=== PATIENT | female | born 1955 | race Caucasian/White ===

== ENCOUNTER 2022-11-09 18:47 | Emergency (ER) | payer MEDICARE, SELFPAY ==
[2022-11-09] VITALS (67 sets, daily range): BP systolic 138–169; BP diastolic 43–115; PULSE 98–106; RESP 15–33; TEMP 37; O2SAT 93–99
--- NOTE | 2022-11-09 19:00 | DI.CT_ITS ---
Exam(s) CT ABDOMEN PELVIS W EXAM: CT ABDOMEN PELVIS W CLINICAL HISTORY: right lower quadrant pain. TECHNIQUE: Imaging Protocol: Axial computed tomography images with coronal and sagittal reformatted images were created and reviewed CONTRAST MATERIAL: Intravenous: Omnipaque 350 Contrast volume:100 ml Oral: no COMPARISON: No exams were available for comparison FINDINGS: ABDOMEN: Lung Bases: Small right pleural effusion. Left atrial and ventricular dilatation. Liver: Cirrhotic appearing liver. No measurable mass. Gallbladder and biliary tract: Status post cholecystectomy. No radiodense calculus or dilation. Pancreas: Normal density, no abnormal calcifications or inflammatory process. Spleen: Enlarged. Kidneys: Normal size, contour and axis. No radiodense stones or obstructive uropathy. No masses seen. Adrenal glands: No masses seen. Abdominal Aorta: Abdominal portion non-dilated. Atherosclerotic changes. Soft tissues. Severe body wall edema greatest in the anterior abdomen, in the pannus. Stomach and small bowel: Suture material at stomach. Small bowel not distended. PELVIS: Bladder: No gross wall thickening. No calculi.No focal mass. Bowel: Colon Suboptimally evaluated due to lack of contrast and surrounding fluid in the paracolic gu tters. Appendix normal. Peritoneal cavity: Small amount of ascites, mainly around the liver and spleen. Some fluid seen adia g paracolic colors. Diffuse haziness in the mesentery Bones: Degenerative changes with flowing osteophytes. Schmorl's node noted at the superior endplate of L4. Reproductive organs: Status post hysterectomy. Ovaries not seen. Lymph nodes: Unremarkable. Impression: Small right pleural effusion. Small amount of ascites. Severe body wall edema. Cirrhotic liver. S plenomegaly. No evidence of appendicitis. RADIATION DOSE DELIVERED: 1,556.21mGy.cm Total DLP DATA REPOSITORY: All CT scans at this facility are submitted to the National Radiology Data Registry (NRDR) Dose Index Registry (DIR) with the [employer] (ACR). RADIATION OPTIMIZATION: All CT scans at this facility use at least one of these dose optimization te chniques: automated exposure control; mA and/or kV adjustment per patient size (includes targeted exa ms where dose is matched to clinical indication); or iterative reconstruction.
--- NOTE | 2022-11-09 19:08 | ED.GENADUL_ITS ---
Discharge Plan Disposition Patient Disposition: Home Condition: Improving Discharge Details Chief Complaint: Abd Prob Clinical Impression: Abdominal pain Primary Care Provider: Jefe Coffey ED Provider: Fito Haynes Home Meds and New Rx's Prescriptions: No Action metformin 1,000 mg Tablet 1,000 mg PO BID ropinirole [Requip] 2 mg Tablet 2 mg PO BID carvedilol 3.125 mg Tablet 3.125 mg PO BID Rx Instructions: must administer with a meal/food furosemide [Lasix] 20 mg Tablet 20 mg PO DAILY spironolactone 25 mg Tablet 25 mg PO DAILY zolpidem 5 mg Tablet 5 mg PO QHS PRN Discharge Instructions Instructions: Abdominal Pain (ED) Additional Instructions: Please help with your primary care physician. Please return to the emergency department for any worsening symptoms. Medical Decision Making 67-year-old female history of gastric antral vascular ectasia, prior hysterectomy, presents with right lower quadrant abdominal discomfort nausea and diarrhea over the last 2 days. Not tarry nonblack stool loose in nature. No active vomiting. Hemodynamically stable afebrile. Abdomen soft nontender nondistended. Consider gastroenteritis versus appendicitis versus less likely diverticulitis versus colitis lower suspicion for bowel obstruction given stooling and no vomiting no distention history and physical not consistent with GI bleed. Given age past medical history and symptomatology will obtain basic labs CT imaging light fluids and Zofran. Likely home with close follow-up pending results No acute distress resting comfortably. Patient has close primary care follow- up. Given home care instructions and return precautions. 21: 18 chronic nonalcoholic cirrhosis with ascites. HPI General Date/Time Provider Initiated Documentation: 11/09/22 19:02 . HPI Narrative: 67-year-old female history of gastric antral vascular ectasia presents with right lower quadrant abdominal pain nausea and loose stool over the last several days Related Data Home Medications Medication Instructions Recorded Confirmed carvedilol 3.125 mg tablet 3.125 mg PO BID 11/09/22 11/09/22 furosemide 20 mg tablet (Lasix) 20 mg PO DAILY 11/09/22 11/09/22 metformin 1,000 mg tablet 1,000 mg PO BID 11/09/22 11/09/22 ropinirole 2 mg tablet 2 mg PO BID 11/09/22 11/09/22 spironolactone 25 mg tablet 25 mg PO DAILY 11/09/22 11/09/22 zolpidem 5 mg tablet 5 mg PO QHS PRN 11/09/22 11/09/22 Allergies Allergy/AdvReac Type Severity Reaction Status Date / Time Penicillins Allergy Severe Swelling/Ed Unverified 11/09/22 20:12 sophie tramadol Allergy Severe Swelling/Ed Unverified 11/09/22 20:13 sophie vancomycin AdvReac Intermediate Other (See Unverified 11/09/22 20:13 Comment) General Stated Complaint: Abd Prob CHELA: 3 Review of Systems Narrative: Review of Systems Constitutional: negative Eyes: negative ENT: negative Cardiovascular: negative Respiratory: negative Gastrointestinal: Abdominal pain nausea diarrhea : negative Musculoskeletal: negative Skin: negative Neurologic: negative Psych: negative PFSH All Active Problems (Updated 11/09/22 @ 21:21 by Fito Haynes MD) Abdominal pain (Acute) Social History Smoking risk assessment performed?: No Exam Narrative Exam Narrative: Physical Examination General: alert, awake, cooperative, resting comfortably, no acute distress HEENT: normocephalic, atraumatic; PERRL, EOM intact, conjunctiva normal; no nasal discharge; moist mucous membranes, oral and pharyngeal mucosa normal, tolerating secretions Neck: supple, trachea midline; full ROM Chest: normal to inspection Respiratory: normal respiratory effort, speaking in full sentences, clear to auscultation, no wheezing, rales or rhonchi Cardiac: regular rate, regular rhythm, S1S2 intact, no murmurs rubs or gallops GI: abdomen soft, non-tender, non-distended; no palpable mass or hepatosplenomegaly Skin: no lesions, rashes or trauma appreciated Neuro: AAOx3, normal speech, moving all extremities Extremities: Back appearing bilateral ankle edema symmetrical mildly pitting Psych: Appropriate mood and affect Course Vital Signs Vital signs: Vital Signs Temperature 37.0 C 11/09/22 18:51 Pulse 100 H 11/09/22 18:51 Respiratory Rate 18 11/09/22 18:51 Pulse Oximetry 99 11/09/22 18:51 Temperature 37.0 C 11/09/22 18:51 Temperature Source Temporal Artery Scan 11/09/22 18:51 Pulse 100 H 11/09/22 18:51 Respiratory Rate 18 11/09/22 18:51 Blood Pressure Position Sitting 11/09/22 18:51 Pulse Oximetry 99 11/09/22 18:51 Oxygen Delivery Method Room Air 11/09/22 18:51 Oxygen Flow Rate 0 11/09/22 18:51 Pain Level 7 11/09/22 18:51
[2022-11-09 19:13] LABS: Abs Immature Grans 0.01 10^3/uL (0.0-0.06); Absolute Basophil Count 0.04 10^3/uL (0.0-0.2); Absolute Eosinophil Count 0.28 10^3/uL (0.0-0.7); Absolute Lymphocyte Count 0.88 10^3/uL (1.2-3.4); Absolute Monocyte Count 0.49 10^3/uL (0.1-0.8); Absolute Neutrophil Count 2.34 10^3/uL (1.2-6.7); Eosinophils % 6.9; HCT 28.6 % (36.0-46.0); HGB 8.5 g/dL (11.2-15.7); Immature Grans % 0.2; Lymphocytes % 21.8; MCH 26.3 pg (27.0-33.0); MCHC 29.7 % (32.0-36.0); MCV 89 fL (80-95); Monocytes % 12.1; Platelet Count 117 10^3/uL (130-400); RBC 3.23 10^6/uL (3.93-5.22); RDW 13.8 % (11.7-14.6); RDW-SD 44.9 fL; WBC 4.04 10^3/uL (4.4-10.8)
[2022-11-09 19:31] LABS: ALT 12 U/L (14-59); AST 28 U/L (15-37); Albumin 2.9 g/dL (3.4-5.0); Alkaline Phosphatase 209 U/L (46-116); Anion Gap 5.1 mmol/L (3-11); BUN 11 mg/dL (7-18); Bilirubin, Total 1.7 mg/dL (0.2-1.0); CO2 29.9 mmol/L (21.0-32.0); CREATININE 0.8 mg/dL (0.55-1.02); Calcium 8.6 mg/dL (8.5-10.1); Chloride 108 mmol/L (98-107); Estimated GFR 80.71 (mL/min/1.73m2); Glucose 185 mg/dL (74-106); Potassium 3.5 mmol/L (3.5-5.1); Sodium 143 mmol/L (136-145); Total Protein 6.6 g/dL (6.4-8.2)
[2022-11-09 19:34] LABS: INR 1.2 (0.9-1.1); PTT Activated 25.6 sec (21.0-27.5); Prothrombin Time 11.7 sec (9.3-11.0)
[2022-11-09] MEDS: Normal Saline 500 ML 1000 ML IV (19:47)
[2022-11-09] MEDS: Omnipaque 350 MG/ML 100 ML BTL IJ (19:50)
[2022-11-09] MEDS: Normal Saline - Diluent 50 ML VIAL IJ (19:51)
[2022-11-09] MEDS: Normal Saline Flush 10 ML SYR IVP (19:51)
--- NOTE | 2022-11-09 20:20 | DI.VRAD_ITS ---
PROCEDURE INFORMATION: Exam: CT Abdomen And Pelvis With Contrast Exam date and time: 11/09/2022 7:50 PM Age: 67 years old Clinical indication: Other: Rlq pain TECHNIQUE: Imaging protocol: Computed tomography of the abdomen and pelvis with contrast. Radiation optimization: All CT scans at this facility use at least one of these dose optimization techniques: automated exposure control; mA and/or kV adjustment per patient size (includes targeted exams where dose is matched to clinical indication); or iterative reconstruction. Contrast material: OMNIPAQUE 350; Contrast volume: 100 ml; Contrast route: INTRAVENOUS (IV); COMPARISON: No relevant prior studies available. FINDINGS: Lungs: Consolidation in the right lower lobe may represent atelectasis or pneumonia. . Pleural spaces: Moderate right pleural effusion.. Liver: Lobulated liver may reflect cirrhosis. Gallbladder and bile ducts: Cholecystectomy Pancreas: Edema in the pancreas may represent mild pancreatitis. Spleen: Splenomegaly 15 cm . Adrenal glands: Normal. No mass. Kidneys and ureters: Normal. No hydronephrosis. Stomach and bowel: Sutures in the stomach Appendix: The appendix is not identified. If acute appendicitis is suspected clinically, recommend oral contrast and repeat scanning after oral contrast reaches the rectum. Intraperitoneal space: Mild ascites in the abdomen and pelvis. Vasculature: Unremarkable. No abdominal aortic aneurysm. Lymph nodes: Unremarkable. No enlarged lymph nodes. Urinary bladder: Unremarkable as visualized. Reproductive: Unremarkable as visualized. Bones/joints: Unremarkable. No acute fracture. Soft tissues: Extensive edema in the subcutaneous fat of abdomen and pelvis. IMPRESSION: 1. Moderate right pleural effusion.. 2. Consolidation in the right lower lobe may represent atelectasis or pneumonia. . 3. Lobulated liver may reflect cirrhosis. 4. Splenomegaly 15 cm . Differential diagnosis of splenomegaly is lymphoma/leukemia, mononucleosis, hemolytic anemia, portal hypertension. 5. Edema in the pancreas may represent mild pancreatitis. 6. Mild ascites in the abdomen and pelvis. 7. Extensive edema in the subcutaneous fat of abdomen and pelvis. 8. The appendix is not identified. If acute appendicitis is suspected clinically, recommend oral contrast and repeat scanning after oral contrast reaches the rectum. 9 . Anasarca with pleural effusion, ascites, and soft tissue edema Dictated and Authenticated by: Lidia Cassidy MD. Ordering:ABRAHAM Payton MD
== END 2022-11-09 21:41 | disposition home or self-care (01) ==
PROVIDERS: Emergency Provider Emergency Medicine; PCP Family Medicine
DX: K74.60 Unspecified cirrhosis of liver (principal); R18.8 Other ascites
CPT/HCPCS: 80053; 96361; 96374; 99285; 74177; 85025; 85610; 85730; 99284; J3490

== ENCOUNTER 2022-12-13 16:15 | Inpatient (IN) | payer MEDICARE, SELFPAY ==
[2022-12-13] VITALS (32 sets, daily range): BP systolic 133–179; BP diastolic 48–66; PULSE 72–107; RESP 13–27; TEMP 36.6–36.8; O2SAT 96–100
--- NOTE | 2022-12-13 16:15 | RT.EKG_ITS ---
APPROVED REPORT Exam: Resting ECG Reason for Exam: ?chf Patient Location: E HR:90 bpm ECG Measurements Heart Rate 90 AXIS AL 164 P 72 QRSd 93 QRS 63 QT 402 T 17 QTc 493 Conclusion Sinus rhythm...normal P axis, V-rate 60- 99 Probable left atrial enlargement...P >50mS, <-0.10mV V1
--- NOTE | 2022-12-13 16:15 | DI.CT_ITS ---
Exam(s) CT ABDOMEN PELVIS W EXAM: CT ABDOMEN PELVIS W CLINICAL HISTORY: lower abdomen pain TECHNIQUE: Imaging Protocol: Axial computed tomography images with coronal and sagittal reformatted images were created and reviewed CONTRAST MATERIAL: Intravenous: Omnipaque 350 Contrast volume:100 mL Oral: No COMPARISON: CT CT ABDOMEN PELVIS W from 11/09/2022 FINDINGS: ABDOMEN: Lung Bases: There is a persistent right pleural effusion and subjacent infiltrate. Liver: There is a nodular small liver consistent with hepatic cirrhosis. No measurable mass. Portal, Superior Mesenteric, and Splenic Veins: Unremarkable. Gallbladder and Biliary Tract: Status post cholecystectomy. No significant biliary ductal dilatation . Pancreas: Normal density, no abnormal calcifications or inflammatory process. Spleen: Splenomegaly. Adrenals: No masses seen. Kidneys: Normal size, contour and axis. No radiodense stones or obstructive uropathy. No masses seen. Abdominal Aorta: Abdominal portion non-dilated. Atherosclerosis. Bowel: There is diverticulosis seen in the colon but no evidence of acute diverticulitis. Postsurgic al changes are seen in the stomach. There is no evidence of appendicitis. Peritoneal Cavity: There is a moderate amount of abdominal pelvic ascites. No free air. Lymph Nodes: Within normal limits. Bones: Within normal limits for the patient's age. Soft Tissues: There is diffuse subcutaneous edema. PELVIS: Bladder: Symmetric distention, no gross wall thickening. Reproductive Organs: Status post hysterectomy. Lymph Nodes: Stable mildly enlarged inguinal lymph nodes. Bones: Within normal limits for the patient's age. IMPRESSION: 1. Findings of hepatic cirrhosis and splenomegaly with abdominal ascites. 2. Anasarca. 3. Right pleural effusion and right basilar infiltrate which may represent atelectasis or pneumonia. Please correlate clinically. RADIATION DOSE DELIVERED: 1,960.14mGy.cm Total DLP DATA REPOSITORY: All CT scans at this facility are submitted to the National Radiology Data Registry (NRDR) Dose Index Registry (DIR) with the [employer] (ACR). RADIATION OPTIMIZATION: All CT scans at this facility use at least one of these dose optimization te chniques: automated exposure control; mA and/or kV adjustment per patient size (includes targeted exa ms where dose is matched to clinical indication); or iterative reconstruction.
[2022-12-13 16:27] LABS: Abs Immature Grans 0.01 10^3/uL (0.0-0.06); Absolute Basophil Count 0.04 10^3/uL (0.0-0.2); Absolute Eosinophil Count 0.25 10^3/uL (0.0-0.7); Absolute Lymphocyte Count 0.73 10^3/uL (1.2-3.4); Absolute Monocyte Count 0.42 10^3/uL (0.1-0.8); Absolute Neutrophil Count 2.06 10^3/uL (1.2-6.7); Basophils % 1.1; Eosinophils % 7.1; HCT 27.3 % (36.0-46.0); HGB 7.7 g/dL (11.2-15.7); Immature Grans % 0.3; Lymphocytes % 20.8; MCH 24.2 pg (27.0-33.0); MCHC 28.2 % (32.0-36.0); MCV 86 fL (80-95); MPV 10.5 fL (8.0-11.0); Neutrophils % 58.7; Platelet Count 130 10^3/uL (130-400); RBC 3.18 10^6/uL (3.93-5.22); RDW 16.3 % (11.7-14.6); RDW-SD 51.8 fL; WBC 3.51 10^3/uL (4.4-10.8)
--- NOTE | 2022-12-13 16:30 | DI.RAD_ITS ---
Exam(s) XR CHEST 1V IN DI DEPT EXAM: XR CHEST 1V IN DI DEPT CLINICAL HISTORY: ?chf. TECHNIQUE: 2D digital imaging was performed. COMPARISON: No exams were available for comparison FINDINGS: Single AP portable view. Heart size is upper normal. The mediastinum is not widened. Increase markings both lung bello but probably exaggerated by body habitus and portable somewhat zurdo dotic technique. No pleural effusions evident. No pneumothorax. IMPRESSION: As above. Recommend nonportable PA and lateral views when clinically possible. DATA REPOSITORY: RADIATION DOSE DELIVERED:
[2022-12-13 16:33] LABS: Source Nasal/Nares
--- NOTE | 2022-12-13 16:33 | ED.GENADUL_ITS ---
Discharge Plan Disposition Patient Disposition: Admit to [facility] Discharge Details Chief Complaint: Abd Prob Clinical Impression: Anasarca, CHF (congestive heart failure) Primary Care Provider: Jefe Coffey ED Provider: Jamal Oakes Home Meds and New Rx's Prescriptions: No Action metformin 1,000 mg Tablet 1,000 mg PO BID ropinirole [Requip] 2 mg Tablet 2 mg PO BID carvedilol 3.125 mg Tablet 3.125 mg PO BID Rx Instructions: must administer with a meal/food furosemide [Lasix] 20 mg Tablet 20 mg PO DAILY spironolactone 25 mg Tablet 25 mg PO DAILY zolpidem 5 mg Tablet 5 mg PO QHS PRN Medical Decision Making 67 yo female with hx of SALCIDO cirrhosis, crohn's, DM, chronic anemia, HFpEF, who was admitted at [facility] for a one night admission for volumar overloase 2 weeks ago and d/c'd on lasix, comes in with worsening weight gain and intermittent lower abdominal discomfort. She denies fevers, chills, chest pain, dyspnea, n/v. She has also had some vaginal bleeding intermittently. She arrives stable in no distress. She does have edema of the lower extremities, no calf tenderness. Her abdomen is obese, has tenderness to palpation in the lower abdomen both right and left sided, no guarding or rebound. No current vaginal bleeding on exam but outer vulva area is swollen and seems edematous. Suspect volume overload, will obttain cbc, cmp, lipase, ct abdomen/pelvis, ekg/troponin and cxr to further evaluate labs show chronic anemia, no other significant findings, xray shows mild chf, ct shows anasarca small ascites, dilated inferior vena cava secondary to vascular congestion. Patient stable, can barely move in the stretcher due to general weakness and dyspnea, will discuss with hospitalist about admission for diuresis Differential Diagnosis Differential Diagnosis: diverticulitis, fibroid, chf Imaging Data Radiologic Study: Attestation: I personally reviewed and interpreted this imaging study as follows: Imaging: X-Ray Radiologist's impression: PROCEDURE INFORMATION: Exam: XR Chest Exam date and time: 12/13/2022 5:26 PM Age: 67 years old Clinical indication: Pain; Other: ? Chf TECHNIQUE: Imaging protocol: Radiologic exam of the chest. Views: 1 view. COMPARISON: CT ABDOMEN PELVIS W 12/13/2022 5:13 PM FINDINGS: Lungs: Diffuse interstitial prominence. Pleural spaces: Right pleural effusion is not conspicuous. Heart/Mediastinum: Cardiomegaly. Bones/joints: Unremarkable. IMPRESSION: Mild heart failure. Radiologic Study #2: Attestation: I personally reviewed and interpreted this imaging study as follows: Imaging: CT Scan Radiologist's impression: IMPRESSION: 1. Anasarca. 2. Small volume intra-abdominal ascites. 3. Liver cirrhosis. 4. Splenomegaly. 5. Dilated inferior vena cava likely secondary to vascular congestion. 6. Small right pleural effusion with right lower lobe atelectasis. 7. Mild mesenteric, retroperitoneal and inguinal adenopathy. 8. Mesenteric edema. Lab Data Lab results reviewed: Yes I reviewed the patient's lab results. ECG Data Attestation: I personally reviewed and interpreted this ECG (s) as follows: Prior ECG tracings: not available for review Interpretation: sinus, rate of 90, pr 164, no acute ischemic findings HPI General Mode of arrival: EMS . Date/Time Provider Initiated Documentation: 12/13/22 16:22 . Limitations to Documentation: no limitations . Information obtained by: patient . History of Present Illness 67 year old F presents to the emergency department with the chief complaint of lower abdominal pain, described as moderate, Patient started experiencing this month(s) (1) and it has been constant. No relieving factors improve symptom(s), No exacerbating factors reported . Patient notes denies fever/chills. Patient did receive the following treatments prior to arrival, none Related Data Home Medications Medication Instructions Recorded Confirmed carvedilol 3.125 mg tablet 3.125 mg PO BID 11/09/22 12/13/22 furosemide 20 mg tablet (Lasix) 20 mg PO DAILY 11/09/22 12/13/22 metformin 1,000 mg tablet 1,000 mg PO BID 11/09/22 12/13/22 ropinirole 2 mg tablet 2 mg PO BID 11/09/22 12/13/22 spironolactone 25 mg tablet 25 mg PO DAILY 11/09/22 12/13/22 zolpidem 5 mg tablet 5 mg PO QHS PRN 11/09/22 12/13/22 Allergies Allergy/AdvReac Type Severity Reaction Status Date / Time Penicillins Allergy Severe Swelling/Ed Unverified 02/09/23 16:39 sophie tramadol Allergy Severe Swelling/Ed Unverified 12/13/22 16:39 sophie apricot Allergy Intermediate Hives Unverified 12/13/22 16:34 vancomycin AdvReac Intermediate Other (See Unverified 12/13/22 16:39 Comment) General Stated Complaint: Abd Prob CHELA: 3 Review of Systems All systems reviewed & are unremarkable except as noted in HPI and below Constitutional Constitutional: Denies chills, Denies fever(s) and Denies weakness Cardiovascular Cardiovascular: Denies chest pain and Denies dyspnea Respiratory Respiratory: Denies cough and Denies dyspnea Gastrointestinal Gastrointestinal: Denies abdominal pain, Denies nausea and Denies vomiting Musculoskeletal Musculoskeletal: Denies joint swelling Integumentary/Breasts Skin/Breast: Denies rash Neurologic Neurologic: Denies weakness PFSH All Active Problems (Updated 12/13/22 @ 18:24 by Jamal Oakes MD) Anasarca (Acute) CHF (congestive heart failure) (Chronic) Social History Smoking/Tobacco Use Status: Never Smoking risk assessment performed?: Yes Alcohol Intake: never Drug use: Never Substance use type: does not use Do you feel safe at home: Yes Do you feel safe in your relationship?: Yes Exam Const General: no acute distress Orientation: alert HENMT Head: normal to inspection Ears: external ears normal General nose exam: external nose normal Mouth: moist mucous membranes Eyes General: appearance normal, both eyes and all related structures Neck Neck: normal visual inspection Resp Effort & Inspection: normal respiratory effort and able to speak in complete sentences Auscultation: clear to auscultation bilaterally Cardio Jugular venous pressure: no JVD Rate: regular rate Heart Sounds: no murmurs GI Palpation: soft and tender Skin General skin exam: no rashes or lesions noted Neuro General: patient alert and patient oriented x3 Extrem General: normal to inspection Psych Mental Status: mental status grossly normal Course Vital Signs Vital signs: Vital Signs Temperature 36.6 C 12/13/22 16:13 Pulse 96 H 12/13/22 16:13 Respiratory Rate 16 12/13/22 16:13 Blood Pressure 160/52 H 12/13/22 16:13 Pulse Oximetry 99 12/13/22 16:13 Temperature 36.6 C 12/13/22 16:13 Temperature Source Oral 12/13/22 16:13 Pulse 96 H 02/09/23 16:13 Respiratory Rate 16 12/13/22 16:13 Respiratory Effort Normal 12/13/22 16:25 Blood Pressure 160/52 H 12/13/22 16:13 Blood Pressure Position Supine 12/13/22 16:13 Pulse Oximetry 99 12/13/22 16:13 Oxygen Delivery Method Room Air 12/13/22 16:13 Oxygen Flow Rate 0 12/13/22 16:13 Pain Level 6 12/13/22 16:30 Lab/Test Results Lab/Test Results: Laboratory Tests Range/Units 12/13/22 16:20 WBC (4.4-10.8) 10^3/uL 3.51 L RBC (3.93-5.22) 10^6/uL 3.18 L Hgb (11.2-15.7) g/dL 7.7 L Hct (36.0-46.0) % 27.3 L MCV (80-95) fL 86 MCH (27.0-33.0) pg 24.2 L MCHC (32.0-36.0) % 28.2 L RDW (11.7-14.6) % 16.3 H Plt Count (130-400) 10^3/uL 130 MPV (8.0-11.0) fL 10.5 Immature Gran % 0.3 Neutrophils % 58.7 Lymphocytes % 20.8 Monocytes % 12.0 Eosinophils % 7.1 Basophils % 1.1 Nucleated RBC % (0.0-0.3) % 0.0 Absolute Neutrophils (1.2-6.7) 10^3/uL 2.06 Absolute Lymphocytes (1.2-3.4) 10^3/uL 0.73 L Absolute Monocytes (0.1-0.8) 10^3/uL 0.42 Absolute Eosinophils (0.0-0.7) 10^3/uL 0.25 Absolute Basophils (0.0-0.2) 10^3/uL 0.04
[2022-12-13 16:43] LABS: ALT 13 U/L (14-59); AST 27 U/L (15-37); Albumin 2.6 g/dL (3.4-5.0); Alkaline Phosphatase 187 U/L (46-116); Anion Gap 5.5 mmol/L (3-11); BUN 10 mg/dL (7-18); Bilirubin, Direct 0.6 mg/dL (0.0-0.2); Bilirubin, Total 1.3 mg/dL (0.2-1.0); CO2 28.5 mmol/L (21.0-32.0); CREATININE 0.8 mg/dL (0.55-1.02); Calcium 8.4 mg/dL (8.5-10.1); Chloride 108 mmol/L (98-107); Estimated GFR 80.71 (mL/min/1.73m2); Glucose 245 mg/dL (74-106); Lipase 35 U/L (16-77); Potassium 3.7 mmol/L (3.5-5.1); Sodium 142 mmol/L (136-145); Total Protein 6.2 g/dL (6.4-8.2)
[2022-12-13 16:44] LABS: ETHANOL BLOOD < 3.0 mg/dL (<10); PTT Activated 30.7 sec (21.5-31.9); Prothrombin Time 11.7 sec (9.3-11.0)
[2022-12-13 16:52] LABS: INR 1.1 (0.9-1.1)
[2022-12-13 17:01] LABS: NT-proBNP 316 pg/mL (<300); Troponin I < 50 ng/L (<or=60)
[2022-12-13 17:08] LABS: COVID-19 PCR Negative (Negative)
[2022-12-13] MEDS: Normal Saline - Diluent 50 ML VIAL IJ (17:15)
[2022-12-13] MEDS: Omnipaque 350 MG/ML 100 ML BTL IJ (17:15)
[2022-12-13 17:51] LABS: Bilirubin Small (Negative); Blood Negative (Negative); Clarity Clear (Clear); Glucose 100 mg/dL (Negative); Ketones Negative (Negative); Leukocyte Esterase Negative (Negative); Nitrite Negative (Negative); Specific Gravity >= 1.030 (1.005-1.025); Urobilinogen 0.2 EU/dL (Up TO 0.2); pH 5.5 (5-8)
--- NOTE | 2022-12-13 17:53 | DI.VRAD_ITS ---
PROCEDURE INFORMATION: Exam: XR Chest Exam date and time: 12/13/2022 5:26 PM Age: 67 years old Clinical indication: Pain; Other: ? Chf TECHNIQUE: Imaging protocol: Radiologic exam of the chest. Views: 1 view. COMPARISON: CT ABDOMEN PELVIS W 12/13/2022 5:13 PM FINDINGS: Lungs: Diffuse interstitial prominence. Pleural spaces: Right pleural effusion is not conspicuous. Heart/Mediastinum: Cardiomegaly. Bones/joints: Unremarkable. IMPRESSION: Mild heart failure. Dictated and Authenticated by: Zaid Bennett MD. Ordering:JACY Berry MD
--- NOTE | 2022-12-13 17:53 | DI.VRAD_ITS ---
PROCEDURE INFORMATION: Exam: CT Abdomen And Pelvis With Contrast Exam date and time: 12/13/2022 5:13 PM Age: 67 years old Clinical indication: Abdominal pain; Generalized; Patient HX: Pain x 1 month TECHNIQUE: Imaging protocol: Computed tomography of the abdomen and pelvis with contrast. Radiation optimization: All CT scans at this facility use at least one of these dose optimization techniques: automated exposure control; mA and/or kV adjustment per patient size (includes targeted exams where dose is matched to clinical indication); or iterative reconstruction. Contrast material: OMNIPAQUE 350; Contrast volume: 100 ml; Contrast route: INTRAVENOUS (IV); COMPARISON: CT ABDOMEN PELVIS W 11/09/2022 7:50 PM FINDINGS: Lungs: Right lower lobe atelectasis. Pleural spaces: Small right pleural effusion. Liver: Nodular appearance of the liver contour. Gallbladder and bile ducts: Cholecystectomy. Pancreas: Peripancreatic edema. No pancreatic duct dilatation. Spleen: 15.7 cm. Adrenal glands: Normal. No mass. Kidneys and ureters: Normal. No hydronephrosis. Stomach and bowel: As enteric adenopathy. Sigmoid colon diverticulosis. Gastric surgery staple line. Appendix: Nonvisualization of the appendix. Intraperitoneal space: Diffuse mesenteric edema. Intra-abdominal ascites. Vasculature: Dilated inferior vena cava. Lymph nodes: Retroperitoneal lymphadenopathy. Inguinal lymphadenopathy. Urinary bladder: Unremarkable as visualized. Reproductive: Absent uterus. No adnexal mass. Bones/joints: Multilevel thoracic lumbar spine disc degeneration with spondylosis changes. Soft tissues: Diffuse abdominal wall edema. IMPRESSION: 1. Anasarca. 2. Small volume intra-abdominal ascites. 3. Liver cirrhosis. 4. Splenomegaly. 5. Dilated inferior vena cava likely secondary to vascular congestion. 6. Small right pleural effusion with right lower lobe atelectasis. 7. Mild mesenteric, retroperitoneal and inguinal adenopathy. 8. Mesenteric edema. Dictated and Authenticated by: Zaid Bennett MD. Ordering:JACY Berry MD
[2022-12-13 18:03] LABS: Bacteria Few HPF (Negative); Crystals Negative HPF (Negative); Epithelial Cells Moderate HPF (Negative); RBC 0-2 HPF (0-2)
[2022-12-13 18:04] LABS: C & S Indicated? No/Sq. Contamination; Casts Negative LPF (Negative); Mucus Trace (Negative)
[2022-12-13] MEDS: Furosemide 40 MG/4 ML VIAL IVP (18:06)
[2022-12-13] MEDS: Lidocaine 2% Jelly 6 ML SYR (18:15)
--- NOTE | 2022-12-13 18:35 | W.PM.HP.N ---
Date of service: 12/13/22 Time of Service: 18:36 Assessment and Plan Assessment and plan (1) Anasarca: Start date: 12/13/22 Status: Acute Assessment and plan: This is a 67-year-old lady who has chronic right-sided heart failure worsening recently with Lasix stopped because of incontinence and irritation of her skin. She had a Christine placed in the ED and will be diuresed with Lasix 40 mg twice daily. Her blood pressure appears to be slightly elevated and should tolerate this diuresis. Renal functions are also within normal limits with patient mostly having SALCIDO with chronic anemia requiring iron infusions per history. Echocardiogram may need to be updated and will be reviewed in the morning. Long-term she needs PT and OT for bed mobility and she already does have a bedside commode at home. Patient is a full code. (2) CHF (congestive heart failure): Status: Chronic Assessment and plan: Recent worsening with a history of preserved left trigger ejection fraction. More aggressive diuresis and long-term patient needs to be comfortable taking increased diuretics daily. Monitor renal functions and electrolytes while diuresing. Replete if needed. As stated we will update echocardiogram if needed. Qualifiers: Heart failure chronicity: acute on chronic Heart failure type: diastolic Qualified Code(s): I50.33 - Acute on chronic diastolic (congestive) heart failure (3) SALCIDO (nonalcoholic steatohepatitis): Status: Chronic Assessment and plan: Monitor liver functions and supportive care. Patient also has associated anemia requiring iron infusions chronically. Her anemia is fairly significant but appears stable. This will be monitored daily. It does not appear her anemia is contributing to her heart failure but consider transfusion if hematocrit drops below 25%. (4) Type 2 diabetes mellitus: Status: Chronic Assessment and plan: Hold outpatient medical therapy and glucometer measurements with short acting insulin coverage while hospitalized. Qualifiers: Diabetes mellitus complication status: without complication Diabetes mellitus ferry terminal agent insulin use: without detention use Qualified Code(s): E11.9 - Type 2 diabetes mellitus without complications History of Present Illness History of Present Illness Chief Complaint: Anasarca Narrative: This is a 67-year-old female patient who lives with her and other family most of whom are not doing well medically and has found it difficult to ambulate and get to the bathroom on time without having incontinence of urine and having to clean herself each time. Her skin began to become irritated and she stopped taking her Lasix 2 days ago. She has significant arthritis with bilateral TKA in the past and stated that at times when she has worsening edema she would stick a needle into her knee to remove fluid. I advised against this with her prostheses and the risk of infection. Her incontinence is secondary to not being able to hold her urine longer if with her decreased mobility with obesity and severe arthritis. She last had an iron infusion about 2 weeks ago but also per the ED notes at that time had a 1 night admission for her edema and for diuresis. She was discharged on Lasix at that time and has been having progressive abdominal swelling and hardness over the bottom of her abdominal pannus since that admission. She also has peripheral edema and this has worsened but not as severe as her abdomen. The patient did not give the history of being diuresed 2 weeks ago when she had her iron infusion but this was assessed by the ED physician with record review. The patient does did order a bedside commode which will be helpful with her distance to travel and incontinence of urine. She has had no other urinary symptoms and no abdominal symptoms other than her discomfort over the pannus from swelling. Patient does have swelling over her genitalia as well and was admitted with anasarca for IV Lasix diuresis. Her initial troponins were negative. She did have recent echocardiogram revealing preserved left ventricular ejection fraction. This can be assessed as to whether should be repeated. She apparently does have right-sided heart failure with her obesity. The patient also has SALCIDO secondary to her obesity. The patient is a full code. Review of Systems Narrative: 13 point review of systems otherwise unrevealing or stable. PFSH All Active Problems (Updated 12/14/22 @ 01:02 by Devin Carlson) Type 2 diabetes mellitus (Chronic) SALCIDO (nonalcoholic steatohepatitis) (Chronic) Anasarca (Acute) CHF (congestive heart failure) (Chronic) Social History Smoking/Tobacco Use Status: Never Smoking risk assessment performed?: Yes Alcohol Intake: never Drug use: Never Substance use type: does not use Do you feel safe at home: Yes Do you feel safe in your relationship?: Yes Meds Allergies and Home Medications Allergies Allergy/AdvReac Type Severity Reaction Status Date / Time Penicillins Allergy Severe Swelling/Ed Unverified 12/13/22 16:39 sophie tramadol Allergy Severe Swelling/Ed Unverified 12/13/22 16:39 sophie apricot Allergy Intermediate Hives Unverified 12/13/22 16:34 vancomycin AdvReac Intermediate Other (See Unverified 12/13/22 16:39 Comment) Home Medications Medication Instructions Recorded Confirmed Type carvedilol 3.125 mg tablet 3.125 mg PO BID 11/09/22 12/13/22 History furosemide 20 mg tablet (Lasix) 20 mg PO DAILY 11/09/22 12/13/22 History metformin 1,000 mg tablet 1,000 mg PO BID 11/09/22 12/13/22 History ropinirole 2 mg tablet 2 mg PO BID 11/09/22 12/13/22 History spironolactone 25 mg tablet 25 mg PO DAILY 11/09/22 12/13/22 History zolpidem 5 mg tablet 5 mg PO QHS PRN 11/09/22 12/13/22 History Exam Narrative Exam Narrative: General: Patient appears older than stated age, morbidly obese especially over the trunk with a large pannus, moderately uncomfortable in bed with her swollen abdomen, she is alert and oriented x3. HEENT: Normocephalic, coarsened facial features, eyes with pupils equal react light symmetrically, extraocular movement intact and sclera anicteric. Oropharynx with dry mucosa. Neck: Supple without JVD. Back: Stooped posture without CVA tenderness. Lungs: Fair aeration clear to auscultation and percussion. Breast: Exam deferred. Heart: Regular rate and rhythm with 4/6 holosystolic murmur over left renal border. No gallops or rubs. Abdomen: Obese contour with large pannus which has border orange appearance over the overhanging lower abdomen and heart edema including edema over her genitalia area. No palpable hepatosplenomegaly. Bowel sounds positive all quadrants. Genitalia/rectal: Swollen soft tissue of the genitalia otherwise exam deferred. Extremities: Without clubbing, cyanosis or severely pitting edema with mostly nonpitting edema of the lower extremities with some firmness and hardness of the upper thighs. Bilateral TKA scars over the knees. Skin: Pale, warm and dry. Neuro: Current nerves II through XII grossly intact. No focal other motor deficits or tremor. Psych: Normal affect and mood. No abnormal thought processes. Remote and recent memory grossly intact. Results Imaging Imaging Studies: Exam: CT Abdomen And Pelvis With Contrast Exam date and time: 12/13/2022 5:13 PM Age: 67 years old Clinical indication: Abdominal pain; Generalized; Patient HX: Pain x 1 month TECHNIQUE: Imaging protocol: Computed tomography of the abdomen and pelvis with contrast. Radiation optimization: All CT scans at this facility use at least one of these dose optimization techniques: automated exposure control; mA and/or kV adjustment per patient size (includes targeted exams where dose is matched to clinical indication); or iterative reconstruction. Contrast material: OMNIPAQUE 350; Contrast volume: 100 ml; Contrast route: INTRAVENOUS (IV);? COMPARISON: CT ABDOMEN PELVIS W 11/09/2022 7:50 PM FINDINGS: Lungs: Right lower lobe atelectasis. Pleural spaces: Small right pleural effusion. Liver: Nodular appearance of the liver contour. Gallbladder and bile ducts: Cholecystectomy. Pancreas: Peripancreatic edema. No pancreatic duct dilatation. Spleen: 15.7 cm. Adrenal glands: Normal. No mass. Kidneys and ureters: Normal. No hydronephrosis. Stomach and bowel: As enteric adenopathy. Sigmoid colon diverticulosis. Gastric surgery staple line. Appendix:? Nonvisualization of the appendix. Intraperitoneal space: Diffuse mesenteric edema. Intra-abdominal ascites. Vasculature: Dilated inferior vena cava. Lymph nodes: Retroperitoneal lymphadenopathy. Inguinal lymphadenopathy. Urinary bladder: Unremarkable as visualized. Reproductive: Absent uterus. No adnexal mass. Bones/joints: Multilevel thoracic lumbar spine disc degeneration with spondylosis changes. Soft tissues: Diffuse abdominal wall edema. IMPRESSION: 1. Anasarca. 2. Small volume intra-abdominal ascites. 3. Liver cirrhosis. 4. Splenomegaly. 5. Dilated inferior vena cava likely secondary to vascular congestion. 6. Small right pleural effusion with right lower lobe atelectasis. 7. Mild mesenteric, retroperitoneal and inguinal adenopathy. 8. Mesenteric edema. Exam: XR Chest Exam date and time: 12/13/2022 5:26 PM Age: 67 years old Clinical indication: Pain; Other: ? Chf TECHNIQUE: Imaging protocol: Radiologic exam of the chest. Views: 1 view. COMPARISON: CT ABDOMEN PELVIS W 12/13/2022 5:13 PM FINDINGS: Lungs: Diffuse interstitial prominence. Pleural spaces: Right pleural effusion is not conspicuous. Heart/Mediastinum: Cardiomegaly. Bones/joints: Unremarkable. IMPRESSION: Mild heart failure. Labs 12/13/22 16:20 12/13/22 16:20 Labs: Laboratory Results - last 24 hr 12/13/22 12/13/22 12/13/22 16:20 16:20 16:20 WBC 3.51 L RBC 3.18 L Hgb 7.7 L Hct 27.3 L MCV 86 MCH 24.2 L MCHC 28.2 L RDW 16.3 H Plt Count 130 MPV 10.5 Immature Gran % 0.3 Neutrophils % 58.7 Lymphocytes % 20.8 Monocytes % 12.0 Eosinophils % 7.1 Basophils % 1.1 Nucleated RBC % 0.0 Absolute Neutrophils 2.06 Absolute Lymphocytes 0.73 L Absolute Monocytes 0.42 Absolute Eosinophils 0.25 Absolute Basophils 0.04 PT 11.7 H INR 1.1 APTT 30.7 Sodium 142 Potassium 3.7 Chloride 108 H Carbon Dioxide 28.5 Anion Gap 5.5 BUN 10 Creatinine 0.8 Est GFR (CKD-EPI 2020) 80.71 Glucose 245 H Calcium 8.4 L Magnesium 2.0 Total Bilirubin 1.3 H Conjugated Bilirubin 0.6 H AST 27 ALT 13 L Alkaline Phosphatase 187 H Troponin I NT-Pro-B Natriuret Pep Total Protein 6.2 L Albumin 2.6 L Lipase 35 Urine Color Urine Clarity Urine pH Ur Specific [place] Urine Protein Urine Ketones Urine Blood Urine Nitrite Urine Bilirubin Urine Urobilinogen Ur Leukocyte Esterase Urine RBC Urine WBC Ur Epithelial Cells Urine Crystals Urine Bacteria Urine Casts Urine Mucus Ur Culture Indicated? Urine Glucose Ethyl Alcohol < 3.0 COVID-19 Source SARS-CoV-2 (PCR) 12/13/22 12/13/22 12/13/22 16:20 16:30 17:36 WBC RBC Hgb Hct MCV MCH MCHC RDW Plt Count MPV Immature Gran % Neutrophils % Lymphocytes % Monocytes % Eosinophils % Basophils % Nucleated RBC % Absolute Neutrophils Absolute Lymphocytes Absolute Monocytes Absolute Eosinophils Absolute Basophils PT INR APTT Sodium Potassium Chloride Carbon Dioxide Anion Gap BUN Creatinine Est GFR (CKD-EPI 2020) Glucose Calcium Magnesium Total Bilirubin Conjugated Bilirubin AST ALT Alkaline Phosphatase Troponin I < 50 NT-Pro-B Natriuret Pep 316 H Total Protein Albumin Lipase Urine Color Yellow Urine Clarity Clear Urine pH 5.5 Ur Specific [place] >= 1.030 H Urine Protein 30 H Urine Ketones Negative Urine Blood Negative Urine Nitrite Negative Urine Bilirubin Small H Urine Urobilinogen 0.2 Ur Leukocyte Esterase Negative Urine RBC 0-2 Urine WBC 3-5 Ur Epithelial Cells Moderate Urine Crystals Negative Urine Bacteria Few Urine Casts Negative Urine Mucus Trace Ur Culture Indicated? No/Sq. Contamination Urine Glucose 100 Ethyl Alcohol COVID-19 Source Nasal/Nares SARS-CoV-2 (PCR) Negative Last Vital Signs Temp 36.6 C 12/13/22 16:13 Pulse 90 12/13/22 18:01 Resp 27 H 12/13/22 17:01 BP 163/58 H 12/13/22 18:01 Pulse Ox 97 12/13/22 18:10 Time Spent Time spent with Patient: >75 minutes Time was spent: preparing to see the patient(eg.review tests), obtaining and/or reviewing separately otained hiistory, ordering medications,tests, procedures, indepentently interpreting results, counseling the patient and care coordination
[2022-12-13 19:17] LABS: TSH (W/Ref FT4) 1.59 uIU/mL (0.36-3.74)
[2022-12-13] MEDS: Insulin Aspart 300 UNITS/3 ML PEN SC (21:38)
[2022-12-13] MEDS: Heparin 5,000 UNITS/ML VIAL 5000 UNITS SC (21:39)
[2022-12-13] MEDS: Carvedilol 3.125 MG TAB PO (22:45)
[2022-12-13] MEDS: Zolpidem 5 MG TAB PO (22:46)
[2022-12-13] MEDS: rOPINIRole 0.5 MG TAB 2 MG PO (22:46)
[2022-12-14] VITALS (9 sets, daily range): BP systolic 116–142; BP diastolic 56–70; PULSE 79–90; RESP 18–20; TEMP 36.3–37.1; O2SAT 93–98
[2022-12-14] MEDS: Heparin 5,000 UNITS/ML VIAL 5000 UNITS SC ×3 (06:31→21:21)
[2022-12-14 06:34] LABS: HGB 7.3 g/dL (11.2-15.7); MCH 24.9 pg (27.0-33.0); MCHC 29.2 % (32.0-36.0); MCV 85 fL (80-95); MPV 10.5 fL (8.0-11.0); Platelet Count 125 10^3/uL (130-400); RBC 2.93 10^6/uL (3.93-5.22); RDW 16.3 % (11.7-14.6); RDW-SD 51.1 fL; WBC 4.05 10^3/uL (4.4-10.8)
[2022-12-14 06:43] LABS: INR 1.2 (0.9-1.1); Prothrombin Time 12.3 sec (9.3-11.0)
[2022-12-14 06:57] LABS: ALT 12 U/L (14-59); AST 22 U/L (15-37); Albumin 2.3 g/dL (3.4-5.0); Alkaline Phosphatase 153 U/L (46-116); Anion Gap 5.6 mmol/L (3-11); BUN 9 mg/dL (7-18); Bilirubin, Total 1.2 mg/dL (0.2-1.0); CO2 27.4 mmol/L (21.0-32.0); CREATININE 0.8 mg/dL (0.55-1.02); Chloride 107 mmol/L (98-107); Estimated GFR 80.71 (mL/min/1.73m2); Glucose 162 mg/dL (74-106); Magnesium 1.8 mg/dL (1.8-2.4); Potassium 3.6 mmol/L (3.5-5.1); Sodium 140 mmol/L (136-145); Total Protein 5.6 g/dL (6.4-8.2)
[2022-12-14] MEDS: Carvedilol 3.125 MG TAB PO ×2 (08:11→21:20)
[2022-12-14] MEDS: Furosemide 40 MG/4 ML VIAL IVP ×2 (08:12→16:13)
[2022-12-14] MEDS: Insulin Aspart 300 UNITS/3 ML PEN SC ×4 (08:12→21:21)
[2022-12-14] MEDS: rOPINIRole 0.5 MG TAB 2 MG PO ×2 (08:13→21:20)
[2022-12-14] MEDS: Spironolactone 25 MG TAB PO (08:14)
[2022-12-14] MEDS: Normal Saline Flush 10 ML SYR IVP ×2 (08:14→16:13)
--- NOTE | 2022-12-14 08:59 | INITIAL_ITS ---
- If Service Date Differs Date of service: 12/14/22 Time of Service: 08:59 Care Management Initial Assess REASON FOR HOSPITALIZATION:: Anasarca and CHF PAST MEDICAL HISTORY/PAST SURGICAL HISTORY:: All Active Problems (Updated 12/14/22 @ 01:02 by Devin Carlson). Type 2 diabetes mellitus (Chronic). SALCIDO (nonalcoholic steatohepatitis) (Chronic). Anasarca (Acute). CHF (congestive heart failure) (Chronic) PREVIOUS FUNCTIONAL STATUS/SOCIAL/FAMILY SUPPORTS:: Re lives in a single family home in [place] with her Alexis, son Arslan Lewis and brother Denis. They just bought the house in October. They are originally from [facility]. but moved to [place], [place] 3 years ago. Re uses a cane for ambulation and also has a walker which she uses when she is not feeling as strong. 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 CURRENT FUNCTIONAL STATUS:: Re was sitting up in a chair when CM met with her. She was pleasant in interaction and agreeable to conversation. Re talked a bit about her recent move to [place] and the purchase of their home there. Her son, brother and are all disabled to some extent and they are in the process of renovating their home to accomodate their disabilities. Alexis senior is 100% service connected and the [place] is paying tor a stair lift and a ramp. Alexis uses a wheelchair most of the time. He brother lives upstairs and has limited mobility as well. Re shared that their plan is to build a first floor master suite so that they will not need to go upstairs. Re has issues with ambulation and cannot always make it to the bathroom.. She has been reluctant to take her diu retics for that reason. She verbal;ized that she now understands that she needs to take them and is having a commode delivered today to make it easier to urinate frequently. ADVANCE DIRECTIVES:: none on file Has patient been provided with info about the portal/API?: Yes Did the patient sign up for the portal?: No CODE STATUS:: Full Code INSURANCE COVERAGE / FINANCIAL ISSUES:: [facility] Medicare Replacement CURRENT HOME/COMMUNITY SERVICES/EQUIPMENT:: walker and cane. in process of having a ramp and chair lift installed for 's wheelchair PRIMARY CARE PHYSICIAN:: Jefe Coffey POTENTIAL DISCHARGE NEEDS:: Follow up with PCP and plan of care PATIENT/FAMILY EDUCATION NEEDS:: Review of discharge instructions, limitations, activity, medications, follow up plan and discuss Ask Me Three TRANSPORTATION:: via private vehicle with family PLAN:: Anticipate Re will be discharged home when medically cleared. It is possible that she may benefit from a short rehab stay or new home health services, depending on the course of her illness. CM will continue to support Re and assess for ongoing discharge concerns.
--- NOTE | 2022-12-14 09:24 | OT.INIE ---
Occupational Therapy Notes Inpatient Occupational Therapy Evaluation Date: 12/14/22 Referring Doctor:Devin Carlson MD OT Orders: Non-urgent- Limited Ability Precautions: Fall, standard, full PATIENT PROFILE/ADMITTING DIAGNOSIS: Pt is a 67 year old female who was admitted to [facility] surg with the dx of Type II DM, SALCIDO, Anasarca, CHF. Past Medical History: All Active Problems?(Updated 12/14/22 @ 01:02 by Devin Carlson) Type 2 diabetes mellitus (Chronic) SALCIDO (nonalcoholic steatohepatitis) (Chronic) Anasarca (Acute) CHF (congestive heart failure) (Chronic) Social History/Home Situation: Pt states that she recently moved to [place] from [place]. She reports that she originally moved to [place] and just last month moved to [place]. She states she lives with her and her brother who has cancer. She notes that she has a claw foot tub currently in her home which she is not able to get in and out of. Her is a and she notes that the [place] is going to be putting in a walk in shower. She states that her functional mobilty she utilizes a cane. Equipment owned/DME: cane SUBJECTIVE: Pt states that she is doing well. She notes that the increased fluid in her body is bothersome to her. She states that she feels swollen in her marianne area. OBJECTIVE: General Observation: Pleasant, pichardo in place, Mental Status: A&Ox4 Pain: no c/o pain ROM: RUE AROM WFL L UE AROM WFL STRENGTH: RUE 4/5 throughout LUE 4/5 throughout FUNCTIONAL MOBILITY/ADLS: Transfers Sit-Stand (S) Stand-sit (S) Commode-Chair (S) Chair-Commode (S) BATHING max (A) set up/clean up Bathing UE (I) face, (B) UE and front of abdomen, mod (A) with abdomen folds Bathing LE (I) to (B) knees DRESSING seated Dressing UE Min (A) [facility] gown Dressing LE NT-pt utilizes a sock aid at home and reports that she is (I) GROOMING Seated (I) with hair care TOILETING on commode with mod (A) toielting hygiene EATING NT BALANCE: Static sitting Normal Dynamic Sitting Normal Static Standing Good Dynamic Standing Good SPECIAL TESTS: Daily Activity Limitations Standardized Measure [facility] AM -PAC ?6 clicks? Daily Activity Inpatient Short Form: Raw score: 19 Standardized score: 40.22 CMS score: 42.80% INFORMED CONSENT/EDUCATION: Pt instructed in purpose of OT Consult and plan of care. ASSESSMENT: Patient is a 67-year-old female referred to occupational therapy services with diagnosis of Type II DM, SALCIDO, Anasarca, CHF. Patient presents with clinical signs and symptoms consistent with dx, as demonstrated by the following impairment level findings/functional limitations: Impairments in ADL/IADL and leisure activities, decreased functional activity tolerance, difficulty with LE dressing and bathing, difficulty with marianne care. AMPAC score 19 Patient is assessed as a Moderate [id number] complexity based on the following: History: see above Examination: see functional limitations as noted above Presentation: evolving Decision Making: AMPAC score 19 GOALS Goals x1 week 1. Transfers (I) 2. Dressing seated mod (I) 3. Bathing min (A) with abdomen otherwise (I) 4. Toileting (I) 5. Eating (I) PLAN OF CARE/TREATMENT PLAN: 1x/day, 5 days/ week x 1week Initiate Occupational Therapy Services for bathing, dressing, grooming, toileting, eating, transfer training. DISCHARGE RECOMMENDATIONS Based on pts current level of function, OT recommends that pt return home when medically cleared per MD with services. TREATMENT TIME/MINUTES/CODES [id number], [id number], 20 minutes [facility]
--- NOTE | 2022-12-14 10:43 | CHAPLAIN ---
Eli was sitting up in the chair when I visited. She said it had been a while since she been sitting up. She was pleasant and easily engaged in a conversation. She lives in [place] with her , and her brother who has lung cancer. Eli said they lived near [place], [place], moved to [place], and loves being here. They downsized from an apartment to the house they bought, Eli said, but they plan on adding on a room to the house. Her brother was diagnosed two years ago, and Eli suggested he move in with her. At first, her brother chose not to have any treatments for his lung cancer, and now, two years later, he's decided he'd like some treatment.
[2022-12-14 11:44] LABS: Lab Add On Test DONE
[2022-12-14 11:54] LABS: C-Reactive Protein 0.83 mg/dL (0.0-0.3)
--- NOTE | 2022-12-14 14:29 | IN_ITS ---
Date of service: 12/14/22 Time of Service: 13:48 PT Notes Visit Reasons: Anasarca,Acute on Chronic CHF Physical Therapy Inpatient Initial Evaluation Date: 12/14/2022 Referring Doctor: Devin Carlson MD PT Orders: PT CONSULT: Limited ability to clip for stair only do so I did so like for patients okay Precautions: Fall. Standard. Activity as tolerated. Patient Profile/Admitting Diagnosis: Re is a 67-year-old female who presented to the ED on 12/13/2022 due to increasing weight and intermittent lower abdominal discomfort. Per chart review patient has recently been at [facility] [place] of volume overload 2 weeks ago. Patient is admitted for management of anasarca, CHF, SALCIDO, and type II DM. PMHX: All Active Problems?(Updated 12/14/22 @ 01:02 by Devin Carlson) Type 2 diabetes mellitus (Chronic) SALCIDO (nonalcoholic steatohepatitis) (Chronic) Anasarca (Acute) CHF (congestive heart failure) (Chronic) Social History/Home Situation: Lives with , son, and [id number] (with lung cancer) in a private home with 3 steps to enter with rails. Patient and family recently moved to [place] from [place], [place]. independent of all aspects of ADLs. Uses front wheeled walker occasionally at home when pain in both knees gets too much. Equipment Owned/DME: FWW, Subjective: Complains of itchiness in B legs with the right calf area more itchy michel the left. Denies pain, dizziness, and chest discomfort. No report of abdominal pain. Noticed tat her swelling has gone down considerably. Did not report B knee pain with walking. Objective: General Observation: Supine in bed. Telemetry monitoring place. Christine catheter in place. High BMI. Mental Status: Alert and oriented as to person, place, time, and purpose. Able to pay attention, focus, and respond appropriately. Pain: Denies Vital Signs: WNL as closely monitored by nursing staff ROM: Right Upper Extremity: Shoulder Flexion allows up to 100 degrees. Shoulder abduction allows up to 100 degrees. Elbow flexion WFL. Wrist flexion WFL. Func tional opening and closing of hand WFL. Left Upper Extremity: Shoulder Flexion allows up to 100 degrees. Shoulder abduction allows up to 100 degrees. Elbow flexion WFL. Wrist flexion WFL. Functional opening and closing of hand WFL. Right Lower Extremity: Hip flexion limited to about 100 degrees due to body shape. Hip abduction WFL. Knee flexion WFL. Ankle dorsiflexion to neutral only. Ankle plantarflexion WFL. Left Lower Extremity: Hip flexion limited to about 100 degrees due to body shape. Hip abduction WFL. Knee flexion WFL. Ankle dorsiflexion to neutral only. Ankle plantarflexion WFL. Strength: Right Upper Extremity: Shoulder flexors 3-/5. Shoulder abductors 3-/5. Elbow flexors 4-/5. Elbow extensors 4-/5. Communications Administrator strong. Left Upper Extremity: Shoulder flexors 3-/5. Shoulder abductors 3-/5. Elbow flexors 4-/5. Elbow extensors 4-/5. Communications Administrator strong. Right Lower Extremity: Hip flexors 3-/5. Hip abductors 4-/5. Knee flexors 4-/5. Knee extensors 4-/5. Ankle dorsiflexors 3-/5. Ankle plantarflexors 4-/5. Left Lower Extremity: Hip flexors 3-/5. Hip abductors 4-/5. Knee flexors 4-/5. Knee extensors 4-/5. Ankle dorsiflexors 3-/5. Ankle plantarflexors 4-/5. Bed Mobility/Transfers: Supine to sit with minimal assist with HOB at 45 degrees Sit to stand with contact guard assist with FWW Stand to sit with contact guard assist with FWW Bed to reclining chair contact guard assist with FWW Reclining chair to bed contact guard assist with FWW Gait: Instructed patient with level surface ambulation of 200 feet requiring contact guard assist. Allison decreased. Denies pain in B knees throughout. Denies headache, chest pain, and lightheadedness throughout activity. Gait wide-based. Hip flexion during limb advancement decreased. Minimal shortness of breath decreased with rest. Balance: Static Sitting: Normal Dynamic Sitting: Normal Static Standing: Fair Dynamic Standing: Fair Special Tests: Mobility Limitations Standardized Measure [facility] AM-PAC 6 clicks Basic Mobility Inpatient Short Form: Raw Score: 18 CMS Score: 47% deficit Informed Consent/Education: Patient was instructed in purpose of PT consult and plan of care. Agreeable to sabiha morris with established PT POC to achieve personal goals. Assessment: Patient presents with clinical signs and symptoms consistent with current/admitting diagnoses that have resulted to mobility limitations, gait instability, generalized weakness, and overall ADL decline as demonstrated by the following impairment level findings: 1. Decreased strength to B UE/LE major muscle groups 2. Impaired standing balance 3. Impaired activity tolerance 4. Shortness of breath 5. Swelling in B LE Impairments are contributing to the following functional limitations: 1. Decline in bed mobility skills 2. Decline in transfer skills 3. Difficulty with ambulation without assistive device and physical assistance 4. Increased completion time for mobility ADL performance 5. Increased risk for falls 6. Difficulty with managing steps alone safely Patient is assessed as a 52815 moderate complexity based on the following: History: 67-year-old female with past medical history as indicated above Examination: Demonstrable impairment in strength, balance, and mobility level with underlying impairments and functional limitations as exhibited above as well as deficit score of 47% utilizing the [facility] Mobility Inpatient Short Form Presentation: Evolving Decision Makin moderate complexity Goals: Goals X1 week 1. Supine-Sit independent 2. Sit-Supine independent 3. Sit-Stand independent 4. Stand-Sit independent with FWW 5. Bed-Chair independent with FWW 6. Chair-Bed independent with FWW 7. Independent gait on level surface with use of FWW for at least 300 feet without report of pain nor dyspnea 8. Independent stair negotiation while holding onto B rails for at least 5 steps without report of pain nor dyspnea 9. Independent with home exercise program 10. Good static and dynamic standing balance/tolerance Plan of Care/Treatment Plan: 1-2x/day, 7 days/week x 1 week. Plan of care has been reviewed with the [facility] providing the service under Physical Therapy direction. Initiate Physical Therapy intervention for pain management as needed, strengthening, bed mobility, transfers, gait, stairs, balance training, and use of assistive device. DISCHARGE RECOMMENDATIONS: [] Home with no services [] [X] Home with services. Home when medically cleared by hospitalist. Home when medically cleared by hospitalist. Recommend home health PT services in order to progress mobility level using least restrictive assistive ambulatory device, assess home safety, identify additional equipment needs, and establish a functional maintenance program that will increase ability of patient to remain at home. [] Home with outpatient PT. [] SNF for continued rehabilitation [] [] Group Home Care [] [] SNF versus LTC based on ability to participate and progress [] TREATMENT CODE/TIME: 42294 x 20 minutes, 83813 x 14 minutes beginning at 13:48 PM. Thank you for the opportunity to participate in the care of this patient. Kayla Simpson PT, DPT, CLT [facility] [place], [place]
[2022-12-14] MEDS: Nystatin POWDER 60 GM JAR TP ×2 (14:31→21:21)
--- NOTE | 2022-12-14 18:40 | W.PM.PROGNOT ---
Date of Service Date of service: 12/14/22 Time of Service: 18:44 Assessment and Plan Assessment and plan (1) Nikkirca: Start date: 12/13/22 Status: Acute Assessment and plan: Multifactorial - due to acute on chronic diastolic CHF, cirrhosis, noncompliance with furosemide at home due to difficulties with getting to the bathroom. Continue IV furosemide, while monitoring I&Os and daily weights. (2) CHF (congestive heart failure): Status: Chronic Assessment and plan: As above. CHF is diastolic. Qualifiers: Heart failure type: diastolic Heart failure chronicity: acute on chronic Qualified Code(s): I50.33 - Acute on chronic diastolic (congestive) heart failure (3) SALCIDO (nonalcoholic steatohepatitis): Status: Chronic Assessment and plan: with cirrhosis. As above (4) Type 2 diabetes mellitus: Status: Chronic Assessment and plan: Hold metformin. Cover with SSI Qualifiers: Diabetes mellitus buttermaker continuous churn insulin use: without buttermaker continuous churn use Diabetes mellitus complication status: without complication Qualified Code(s): E11.9 - Type 2 diabetes mellitus without complications (5) Cirrhosis: Status: Acute Assessment and plan: As above (6) DVT prophylaxis: Status: Acute Assessment and plan: SC heparin (7) Discharge planning issues: Status: Acute Assessment and plan: Full code Anticipate discahrge home over the weekend with home health services Subjective Subjective Interval history since last seen: Ms Meade feels better. Her breathing and leg swelling are better. She denies dizziness, chest pain, nausea. States that she has been having a lot of itching and swelling in her genital area and is interested in seeing a hr business partner consultant. Has a pichardo and thinks it was a great idea. States that she will now have a bedside commode at home and that will make a big difference with her compliance with furosemide. She is open to having home health services. She takes care of her brother who has cancer and lives with her who is disabled. Exam Narrative Exam Narrative: General: Very pleasant obese female who is comfortably reclined in a chair, A&Ox3, NAD HEENT: EOMI, MMM Heart: RRR, +DA Lungs: crackles L base Abdomen: soft, flank edema, nontender Extremities: 2+ pitting edema BLEs Objective Last Vital Signs Temp 36.5 C 12/14/22 14:57 Pulse 83 12/14/22 14:59 Resp 18 12/14/22 14:57 BP 136/56 L 12/14/22 14:57 Pulse Ox 95 12/14/22 14:57 Laboratory Results - last 24 hr 12/13/22 12/14/22 12/14/22 16:20 06:22 06:22 WBC 4.05 L RBC 2.93 L Hgb 7.3 L Hct 25.0 L MCV 85 MCH 24.9 L MCHC 29.2 L RDW 16.3 H Plt Count 125 L MPV 10.5 PT INR Sodium 140 Potassium 3.6 Chloride 107 Carbon Dioxide 27.4 Anion Gap 5.6 BUN 9 Creatinine 0.8 Est GFR (CKD-EPI 2020) 80.71 Glucose 162 H Calcium 8.0 L Magnesium 1.8 Total Bilirubin 1.2 H AST 22 ALT 12 L Alkaline Phosphatase 153 H C-Reactive Protein Total Protein 5.6 L Albumin 2.3 L TSH 1.59 Add-On Test Request 12/14/22 12/14/22 12/14/22 06:22 06:22 06:22 WBC RBC Hgb Hct MCV MCH MCHC RDW Plt Count MPV PT 12.3 H INR 1.2 H Sodium Potassium Chloride Carbon Dioxide Anion Gap BUN Creatinine Est GFR (CKD-EPI 2020) Glucose Calcium Magnesium Total Bilirubin AST ALT Alkaline Phosphatase C-Reactive Protein 0.83 H Total Protein Albumin TSH Add-On Test Request DONE Time Spent with Patient Time Spent with Patient: 25-34 minutes Time was spent: preparing to see the patient(eg.review tests), obtaining and/or reviewing separately otained hiistory, ordering medications,tests, procedures, referring, communicating with other health acute care occupational therapist, indepentently interpreting results, counseling the patient and care coordination
[2022-12-14] MEDS: Melatonin 3 MG TAB 6 MG PO (21:19)
[2022-12-14] MEDS: Doxepin 10 MG CAP PO (21:48)
[2022-12-15] VITALS (11 sets, daily range): BP systolic 108–151; BP diastolic 50–66; PULSE 72–82; RESP 16–18; TEMP 36–36.6; O2SAT 92–99
[2022-12-15] MEDS: Heparin 5,000 UNITS/ML VIAL 5000 UNITS SC ×3 (05:09→21:52)
[2022-12-15 06:45] LABS: Abs Immature Grans 0.01 10^3/uL (0.0-0.06); Absolute Basophil Count 0.03 10^3/uL (0.0-0.2); Absolute Eosinophil Count 0.24 10^3/uL (0.0-0.7); Absolute Lymphocyte Count 0.96 10^3/uL (1.2-3.4); Absolute Monocyte Count 0.44 10^3/uL (0.1-0.8); Absolute Neutrophil Count 2.13 10^3/uL (1.2-6.7); Basophils % 0.8; Eosinophils % 6.3; HCT 25.2 % (36.0-46.0); HGB 7.3 g/dL (11.2-15.7); Immature Grans % 0.3; Lymphocytes % 25.2; MCH 24.4 pg (27.0-33.0); MCV 84 fL (80-95); MPV 10.5 fL (8.0-11.0); Monocytes % 11.5; Neutrophils % 55.9; Platelet Count 128 10^3/uL (130-400); RBC 2.99 10^6/uL (3.93-5.22); RDW 16.2 % (11.7-14.6); RDW-SD 50.7 fL; WBC 3.81 10^3/uL (4.4-10.8)
[2022-12-15 07:12] LABS: Anion Gap 6.1 mmol/L (3-11); BUN 14 mg/dL (7-18); CO2 30.9 mmol/L (21.0-32.0); CREATININE 0.8 mg/dL (0.55-1.02); Calcium 8.3 mg/dL (8.5-10.1); Chloride 104 mmol/L (98-107); Estimated GFR 80.71 (mL/min/1.73m2); Ferritin 14 ng/mL (8-252); Folate 10.3 ng/mL (8.6-20.0); Glucose 171 mg/dL (74-106); Magnesium 1.6 mg/dL (1.8-2.4); Potassium 3.4 mmol/L (3.5-5.1); Sodium 141 mmol/L (136-145); Vitamin B12 746 pg/mL (193-986)
[2022-12-15 07:54] LABS: Anisocytosis 1+; Hypochromasia 1+; Microcytosis 1+
[2022-12-15 07:55] LABS: Diff Comment RBC Morph Reviewed
[2022-12-15 07:56] LABS: Poikilocytes 1+
[2022-12-15] MEDS: Normal Saline Flush 10 ML SYR IVP ×2 (08:01→08:49)
[2022-12-15] MEDS: rOPINIRole 0.5 MG TAB 2 MG PO ×2 (08:01→21:54)
[2022-12-15] MEDS: Carvedilol 3.125 MG TAB PO ×2 (08:01→21:55)
[2022-12-15] MEDS: Spironolactone 25 MG TAB PO (08:01)
[2022-12-15] MEDS: Furosemide 40 MG/4 ML VIAL IVP ×2 (08:01→15:22)
[2022-12-15] MEDS: Insulin Aspart 300 UNITS/3 ML PEN SC ×4 (08:02→21:52)
[2022-12-15] MEDS: Nystatin POWDER 60 GM JAR TP ×3 (08:02→21:56)
[2022-12-15] MEDS: MAGNESIUM SULFATE 2 GM/50 ML BAG IVPB (08:45)
[2022-12-15] MEDS: Docusate Sodium 100 MG CAP PO ×2 (08:46→21:54)
[2022-12-15] MEDS: Ascorbic Acid 500 MG TAB PO ×2 (08:47→21:53)
[2022-12-15] MEDS: Potassium Chloride 20 MEQ TABCR 40 MEQ PO (08:47)
[2022-12-15] MEDS: Ferrous Sulfate 325 MG TAB PO ×2 (08:47→21:55)
[2022-12-15] MEDS: Pantoprazole 40 MG TABCR PO ×2 (10:53→21:56)
--- NOTE | 2022-12-15 13:35 | PT.INTREAT ---
Date of service: 12/15/22 Time of Service: 12:15 PT Notes Visit Reasons: Anasarca,Acute on Chronic CHF Inpatient Physical Therapy Treatment Note [facility] Date: 12/15/2022 PRECAUTIONS: Falls, standard, activities as tolerated SUBJECTIVE: Complained of a stomach ache at 10:30 this am and asked if she could do her walking later, once meds kicked in. OBJECTIVE: PAIN: Stomach pain earlier in the day. Stated she usually takes a med for stomach acid and has not been taking it. Feels this is most likely the reason for stomach pain. Better after lunch. BED MOBILITY/TRANSFERS Up in chair when I arrived. Stated the nurse did have to help her get up due to bed being so high. Sit-stand: CGA Stand-sit: CGA GAIT Assistive Device: FWW Weight bearing: Full Assist: CGA / SBA Distance: 300ft with no standing or seated rest and min SOB ASSESSMENT: Tolerated ambulation with walker very well. PLAN: Continue to focus on improved mobility for ADL function. TREATMENT CODE/TIME: ther activity ([id number]), 12:15 to 12:35 pm
--- NOTE | 2022-12-15 18:43 | PGE_ITS ---
Date of Service Date of service: 12/15/22 Time of Service: 18:43 Assessment and Plan Assessment and plan (1) Nikkirca: Start date: 12/13/22 Status: Acute Assessment and plan: Multifactorial - due to acute on chronic diastolic CHF, cirrhosis, noncompliance with furosemide at home due to difficulties with getting to the bathroom. Continue IV furosemide, while monitoring I&Os and daily weights; diuresing well down 4.6 kg in 2 days; 6450 ml out 12/14/2022 24h and so far today 12/15/2022 3000ml (2) CHF (congestive heart failure): Status: Chronic Assessment and plan: As above. CHF is diastolic. Qualifiers: Heart failure chronicity: acute on chronic Heart failure type: diastolic Qualified Code(s): I50.33 - Acute on chronic diastolic (congestive) heart failure (3) SALCIDO (nonalcoholic steatohepatitis): Status: Chronic Assessment and plan: with cirrhosis. As above (4) Type 2 diabetes mellitus: Status: Chronic Assessment and plan: Hold metformin. Cover with SSI FSBS 180s-200 Qualifiers: Diabetes mellitus complication status: without complication Diabetes mellitus buttermaker continuous churn insulin use: without detention use Qualified Code(s): E11.9 - Type 2 diabetes mellitus without complications (5) Cirrhosis: Status: Chronic Assessment and plan: As above (6) DVT prophylaxis: Status: Deleted Assessment and plan: SC heparin (7) Discharge planning issues: Status: Deleted Assessment and plan: Full code Anticipate discharge home over the weekend with home health services Discussed with Dr Sommers Subjective Subjective Patient reports: feels better, bowel movement and afebrile; denies diarrhea, nausea, vomiting or shortness of breath Interval history since last seen: Eli states she did not sleep at all last night and is feeling exhausted. She also reports she normally takes Doxepin 30 mg not 10 mg. Updated med rec. Exam Narrative Exam Narrative: Awake, alert, in a recliner in about a 45 degree angle, Speaking full sentences, Const General: no acute distress Orientation: alert HENWI Head: normal to inspection Ears: external ears normal General nose exam: external nose normal Mouth: moist mucous membranes Eyes General: appearance normal, both eyes and all related structures Neck Neck: normal visual inspection Resp Effort & Inspection: normal respiratory effort and able to speak in complete sentences Auscultation: clear to auscultation bilaterally Cardio Jugular venous pressure: no JVD Rate: regular rate Heart Sounds: no murmurs GI Palpation: soft and tender Skin General skin exam: no rashes or lesions noted Neuro General: patient alert and patient oriented x3 Extrem General: normal to inspection Psych Mental Status: mental status grossly normal Objective Last Vital Signs Temp 36.0 C L 12/15/22 14:45 Pulse 72 12/15/22 16:04 Resp 17 12/15/22 14:45 BP 132/66 12/15/22 14:45 Pulse Ox 96 12/15/22 14:45 Laboratory Results - last 24 hr 12/15/22 12/15/22 06:00 06:00 WBC 3.81 L RBC 2.99 L Hgb 7.3 L Hct 25.2 L MCV 84 MCH 24.4 L MCHC 29.0 L RDW 16.2 H Plt Count 128 L MPV 10.5 Immature Gran % 0.3 Neutrophils % 55.9 Lymphocytes % 25.2 Monocytes % 11.5 Eosinophils % 6.3 Basophils % 0.8 Nucleated RBC % 0.0 Absolute Neutrophils 2.13 Absolute Lymphocytes 0.96 L Absolute Monocytes 0.44 Absolute Eosinophils 0.24 Absolute Basophils 0.03 Hypochromasia 1+ Poikilocytosis 1+ Anisocytosis 1+ Microcytosis 1+ Sodium 141 Potassium 3.4 L Chloride 104 Carbon Dioxide 30.9 Anion Gap 6.1 BUN 14 Creatinine 0.8 Est GFR (CKD-EPI 2020) 80.71 Glucose 171 H Calcium 8.3 L Magnesium 1.6 L Ferritin 14 Vitamin B12 746 Folate 10.3 Reviewed Pertinent PMH: Yes Time Spent with Patient Time Spent with Patient: 35-49 minutes Time was spent: preparing to see the patient(eg.review tests), obtaining and/or reviewing separately otained hiistory, ordering medications,tests, procedures, referring, communicating with other health wound care technician, indepentently interpreting results, counseling the patient and care coordination
[2022-12-15] MEDS: Zolpidem 5 MG TAB PO (21:55)
[2022-12-15] MEDS: Doxepin 10 MG CAP 30 MG PO (21:59)
[2022-12-16] VITALS (7 sets, daily range): BP systolic 103–138; BP diastolic 55–72; PULSE 69–83; RESP 16–22; TEMP 36.2–37; O2SAT 93–98
[2022-12-16] MEDS: Heparin 5,000 UNITS/ML VIAL 5000 UNITS SC ×3 (05:21→21:47)
[2022-12-16 06:24] LABS: Abs Immature Grans 0.01 10^3/uL (0.0-0.06); Absolute Basophil Count 0.04 10^3/uL (0.0-0.2); Absolute Eosinophil Count 0.24 10^3/uL (0.0-0.7); Absolute Lymphocyte Count 0.87 10^3/uL (1.2-3.4); Absolute Monocyte Count 0.49 10^3/uL (0.1-0.8); Absolute Neutrophil Count 2.23 10^3/uL (1.2-6.7); Eosinophils % 6.2; HGB 7.4 g/dL (11.2-15.7); Immature Grans % 0.3; Lymphocytes % 22.4; MCH 24.7 pg (27.0-33.0); MCHC 29.6 % (32.0-36.0); MCV 83 fL (80-95); MPV 10.6 fL (8.0-11.0); Monocytes % 12.6; Neutrophils % 57.5; Platelet Count 128 10^3/uL (130-400); RDW 16.4 % (11.7-14.6); RDW-SD 49.6 fL; WBC 3.88 10^3/uL (4.4-10.8)
[2022-12-16 06:41] LABS: Anion Gap 3.4 mmol/L (3-11); BUN 16 mg/dL (7-18); CO2 32.6 mmol/L (21.0-32.0); CREATININE 0.9 mg/dL (0.55-1.02); Calcium 8.5 mg/dL (8.5-10.1); Chloride 105 mmol/L (98-107); Estimated GFR 70.07 (mL/min/1.73m2); Glucose 150 mg/dL (74-106); Potassium 3.7 mmol/L (3.5-5.1); Sodium 141 mmol/L (136-145)
--- NOTE | 2022-12-16 08:46 | RESPIRATORY ---
Rt check out patients home unit and found it to be in great working condition with no issues. Patient uses a DreamStation Auto-titrating CPAP min 12/max 18 on RA. The DME is [facility] and she uses an AirFit N20 Nasal mask size Medium. Patient does not use water in chamber, RT shut humidifier off and checked settings.
[2022-12-16] MEDS: Insulin Aspart 300 UNITS/3 ML PEN SC ×4 (08:57→21:48)
[2022-12-16] MEDS: rOPINIRole 0.5 MG TAB 2 MG PO ×2 (08:57→19:45)
[2022-12-16] MEDS: Furosemide 40 MG/4 ML VIAL IVP (08:57)
[2022-12-16] MEDS: Ferrous Sulfate 325 MG TAB PO ×2 (08:58→19:46)
[2022-12-16] MEDS: Spironolactone 25 MG TAB PO (08:58)
[2022-12-16] MEDS: Pantoprazole 40 MG TABCR PO ×2 (08:58→19:46)
[2022-12-16] MEDS: Ascorbic Acid 500 MG TAB PO ×2 (08:58→19:45)
[2022-12-16] MEDS: Docusate Sodium 100 MG CAP PO ×2 (08:58→19:45)
[2022-12-16] MEDS: Normal Saline Flush 10 ML SYR IVP (08:58)
[2022-12-16] MEDS: Carvedilol 3.125 MG TAB PO ×2 (08:58→19:45)
[2022-12-16] MEDS: Nystatin POWDER 60 GM JAR TP ×3 (08:58→19:47)
--- NOTE | 2022-12-16 13:29 | PT.INTREAT ---
Date of service: 12/16/22 Time of Service: 10:50 PT Notes Visit Reasons: Anasarca,Acute on Chronic CHF Inpatient Physical Therapy Treatment Note [facility] Date: 12/16/2022 PRECAUTIONS: Falls, standard, activities as tolerated SUBJECTIVE: is in the hospital for bowel obstruction for the 30th time. Would like some information given to her about this. Indicated she is doing okay today. Slept well last night. Excited to be walking. Indicated this is the best she has walked in a long time. OBJECTIVE: ? PAIN: No complaints of pain. ? BED MOBILITY/TRANSFERS? Up in chair when I arrived. Stated the nurse did have to again help her get out of bed due to bed being so wide. ? Sit-stand: CGA? Stand-sit: CGA ? GAIT? Assistive Device: FWW? Weight bearing: Full Assist: CGA / SBA ? Distance:? 300 ft without standing or seated rest and min SOB? ? Ther Ex Able to perform LAQs, seated marching and seated hip abd/adduction for 15 reps each post ambulation. ? ASSESSMENT:? Good effort given with ambulation and seated exercises today. Appeared eager to get information about her 's condition. PLAN: Continue to focus on improved mobility for ADL function. TREATMENT CODE/TIME: Ther Activity ([id number]), 10:50 to 11:10 am
--- NOTE | 2022-12-16 13:37 | PT.INTREAT ---
Date of service: 12/16/22 Time of Service: 09:55 PT Notes Visit Reasons: Anasarca,Acute on Chronic CHF Inpatient Physical Therapy Treatment Note [facility] Date: 12/16/2022
[2022-12-16] MEDS: FUROSEMIDE 40 MG, FUROSEMIDE 20 MG 60 MG PO (19:46)
--- NOTE | 2022-12-16 21:06 | PGE_ITS ---
Date of Service Date of service: 12/16/22 Time of Service: 21:06 Assessment and Plan Assessment and plan (1) Anasarca: Status: Acute Assessment and plan: Multifactorial - due to acute on chronic diastolic CHF, cirrhosis, noncompliance with furosemide at home due to difficulties with getting to the bathroom - she has secured a commode at home, it has been delivered. PT states shes is doing well in terms of being able to be dependent toileting. IV furosemide discontinued and oral lasix started at 60 mg BID, monitoring I&Os and daily weights; diuresing well 2820 ml 12/15/22 - weight has gone from 125 kg (bed scale)on 12/13 to 113 kg (standing scale) on 12/14 - I asked nursing to recheck standing scale weight - reported as 113.5kg again (2) CHF (congestive heart failure): Status: Chronic Assessment and plan: As above. CHF is diastolic. Qualifiers: Heart failure chronicity: acute on chronic Heart failure type: diastolic Qualified Code(s): I50.33 - Acute on chronic diastolic (congestive) heart failure (3) SALCIDO (nonalcoholic steatohepatitis): Status: Chronic Assessment and plan: with cirrhosis. As above (4) Type 2 diabetes mellitus: Status: Chronic Assessment and plan: Hold metformin. Cover with SSI FSBS 180s-200 Qualifiers: Diabetes mellitus complication status: without complication Diabetes mellitus director part insulin use: without director part use Qualified Code(s): E11.9 - Type 2 diabetes mellitus without complications (5) Cirrhosis: Status: Chronic Assessment and plan: As above (6) DVT prophylaxis: Status: Deleted Assessment and plan: SC heparin (7) Discharge planning issues: Status: Deleted Assessment and plan: Full code Anticipate discharge home 12/17/[address] Sommers Subjective Subjective Patient reports: no new complaints, tolerating a regular diet, voiding w/o difficulty (catheter removed today), bowel movement and afebrile; denies diarrhea, nausea or vomiting Interval history since last seen: Reports feeling much better and ready to go home. She is concerned about her , he is hospitalized with the flu Exam Narrative Exam Narrative: Awake, alert, in a recliner in about a 45 degree angle, Speaking full sentences, worked well with PT today Const General: no acute distress Orientation: alert HENMT Head: normal to inspection Ears: external ears normal General nose exam: external nose normal Mouth: moist mucous membranes Eyes General: appearance normal, both eyes and all related structures Neck Neck: normal visual inspection Resp Effort & Inspection: normal respiratory effort and able to speak in complete sentences Auscultation: clear to auscultation bilaterally Cardio Jugular venous pressure: no JVD Rate: regular rate Heart Sounds: no murmurs GI Palpation: soft and tender Skin General skin exam: no rashes or lesions noted Neuro General: patient alert and patient oriented x3 Extrem General: normal to inspection Psych Mental Status: mental status grossly normal Objective Last Vital Signs Temp 36.3 C L 12/16/22 19:18 Pulse 83 12/16/22 19:18 Resp 22 12/16/22 19:18 BP 138/72 12/16/22 19:18 Pulse Ox 93 12/16/22 19:18 Laboratory Results - last 24 hr 12/16/22 12/16/22 06:01 06:01 WBC 3.88 L RBC 3.00 L Hgb 7.4 L Hct 25.0 L MCV 83 MCH 24.7 L MCHC 29.6 L RDW 16.4 H Plt Count 128 L MPV 10.6 Immature Gran % 0.3 Neutrophils % 57.5 Lymphocytes % 22.4 Monocytes % 12.6 Eosinophils % 6.2 Basophils % 1.0 Nucleated RBC % 0.0 Absolute Neutrophils 2.23 Absolute Lymphocytes 0.87 L Absolute Monocytes 0.49 Absolute Eosinophils 0.24 Absolute Basophils 0.04 Sodium 141 Potassium 3.7 Chloride 105 Carbon Dioxide 32.6 H Anion Gap 3.4 BUN 16 Creatinine 0.9 Est GFR (CKD-EPI 2020) 70.07 Glucose 150 H Calcium 8.5 Magnesium 2.0 Time Spent with Patient Time Spent with Patient: 35-49 minutes Time was spent: preparing to see the patient(eg.review tests), obtaining and/or reviewing separately otained hiistory, ordering medications,tests, procedures, referring, communicating with other health memory care program director, indepentently interpreting results, counseling the patient and care coordination
[2022-12-16] MEDS: Zolpidem 5 MG TAB PO (21:47)
[2022-12-16] MEDS: Doxepin 10 MG CAP 30 MG PO (21:48)
[2022-12-17 00:19] VITALS: BP 140/70; PULSE 82; RESP 20; TEMP 36.9; O2SAT 93
[2022-12-17 04:10] VITALS: BP 105/61; PULSE 70; RESP 18; TEMP 36.3; O2SAT 94
[2022-12-17] MEDS: Heparin 5,000 UNITS/ML VIAL 5000 UNITS SC (05:08)
[2022-12-17 06:10] LABS: Absolute Basophil Count 0.04 10^3/uL (0.0-0.2); Absolute Eosinophil Count 0.24 10^3/uL (0.0-0.7); Absolute Lymphocyte Count 1.11 10^3/uL (1.2-3.4); Absolute Monocyte Count 0.41 10^3/uL (0.1-0.8); Absolute Neutrophil Count 1.73 10^3/uL (1.2-6.7); Basophils % 1.1; Eosinophils % 6.8; HCT 26.9 % (36.0-46.0); HGB 7.8 g/dL (11.2-15.7); Lymphocytes % 31.4; MCH 24.5 pg (27.0-33.0); MCV 84 fL (80-95); MPV 10.4 fL (8.0-11.0); Monocytes % 11.6; Neutrophils % 49.1; Platelet Count 132 10^3/uL (130-400); RBC 3.19 10^6/uL (3.93-5.22); RDW 16.3 % (11.7-14.6); RDW-SD 50.3 fL; WBC 3.53 10^3/uL (4.4-10.8)
[2022-12-17 06:20] LABS: Anion Gap 4.1 mmol/L (3-11); BUN 17 mg/dL (7-18); CO2 33.9 mmol/L (21.0-32.0); Calcium 8.6 mg/dL (8.5-10.1); Chloride 102 mmol/L (98-107); Estimated GFR 61.75 (mL/min/1.73m2); Glucose 150 mg/dL (74-106); Magnesium 1.8 mg/dL (1.8-2.4); Potassium 3.6 mmol/L (3.5-5.1); Sodium 140 mmol/L (136-145)
[2022-12-17 07:45] VITALS: BP 136/61; PULSE 72; RESP 22; TEMP 36.3; O2SAT 96
[2022-12-17] MEDS: Insulin Aspart 300 UNITS/3 ML PEN SC ×2 (08:17→12:38)
[2022-12-17] MEDS: Ascorbic Acid 500 MG TAB PO (08:18)
[2022-12-17] MEDS: rOPINIRole 0.5 MG TAB 2 MG PO (08:18)
[2022-12-17] MEDS: Pantoprazole 40 MG TABCR PO (08:18)
[2022-12-17] MEDS: Spironolactone 25 MG TAB PO (08:18)
[2022-12-17] MEDS: Carvedilol 3.125 MG TAB PO (08:18)
[2022-12-17] MEDS: Ferrous Sulfate 325 MG TAB PO (08:18)
[2022-12-17] MEDS: FUROSEMIDE 40 MG, FUROSEMIDE 20 MG 60 MG PO (08:18)
[2022-12-17] MEDS: Docusate Sodium 100 MG CAP PO (08:18)
[2022-12-17] MEDS: Nystatin POWDER 60 GM JAR TP (08:19)
--- NOTE | 2022-12-17 10:39 | OTTR_ITS ---
Occupational Therapy Notes Occupational Therapy Inpatient Treatment Note Date: 12/17/22 PRECAUTIONS: Fall, standard, full SUBJECTIVE: Pt states that she is doing well and going home today. OBJECTIVE: PAIN:no c/o pain FUNCTIONAL MOBILITY Supine-sit: (I) Sit-stand: (I) Stand-sit: (I) Bed-Chair: (I) BATHING: Upper Body: pt was (I) face, (B) UE. She notes that she is going to transfer to the chair for breakfast and will perform the rest of her bathing routine later today. EATING: Sitting in chair, (I) PLAN: Pt states that she is going home today. She reports that she feels better and that she has lost 20# of fluid. She reports that she is leaving by this afternoon. TREATMENT CODES/TIME: 46595, 10 minutes (07:50) Patrica Metzger OTR/L [facility]
[2022-12-17 11:17] VITALS: BP 132/51; PULSE 71; RESP 20; TEMP 35.7; O2SAT 97
--- NOTE | 2022-12-17 12:48 | PDOC.HHF2F_ITS ---
Home Health Referral Home Health Orders Clinical synopsis of why skilled professionals are needed: This is a 67-year-old female patient with past medical history of gastric antral vascular ectasia, prior hysterectomy, who presented to the [facility] ED on 12/13/2022 who lives with her and other family, most of whom are not doing well medically, with chief complaint of difficulty ambulating and inability to get to the bathroom on time without having incontinence of urine and having to clean herself each time. 2 days prior to admission her skin began to become irritated and she stopped taking her Lasix. ?She was admitted to the hospital overnight 2 weeks ago for edema and for diuresis.? She was discharged on Lasix at that time and has been having progressive abdominal swelling and hardness over the bottom of her abdominal pannus since that admission.?The patient now has a bedside commode at home which will be helpful with shortening her distance to travel and incontinence of urine.? She had no other urinary symptoms and no abdominal symptoms other than her discomfort over the pannus from swelling.? Recent echocardiogram revealing preserved left ventricular ejection fraction.? She diuresed well with IV Lasix. She lost about 11 kg during her hospitalization. She is being discharged to home with increased dose of Lasix.? She will benefit from nursing for medication teaching and oversight, PT for strenthening, OT for ADL evaluation and DIVIDING MACHINE OPERATOR HELPER for community resources.? The patient would like some help with ADL?s and hygiene until she get?s stronger and more independent.? She is discharged stable, improved. Patient agrees with this plan. Medical diagnosis necessitation home health referral: Anasarca, Cirrhosis, Type 2 diabetes Registered Nurse: Check all that apply Instruct on new or changed medication(s)/assess compliance: Ordered (does not take medications as prescribed resulting in 2 hospitalizations that we know of) Physical Therapist: Check all that apply Increase strength & endurance for safe mobility at home: Ordered To design/establish home maintenance program: Ordered Fall reduction therapy program for patient with history of frequent falls: Ordered Home safety evaluation and teaching/gait training including stair management (if applicable): Ordered Occupational Therapist: Evaluate and treat for patient unable to perform ADL/IADL/self-care: Ordered Upper extremity strengthening, range and motion: Ordered Web Analytics Specialist: Assist with community resources: Ordered Assist with tank terminal gauger care planning: Ordered Home Bound Status Requires the aid of supportive device (check all that apply): Walker Assistance of another person (Describe assistance and medical necessity): patient is unable to walk safely without a device and a person standing by Describe why leaving home would require a considerable and taxing effort: Requires frequent rest periods, Incontinence and Safety Concerns: describe (weakness) Encounter Date and Reason: I certify that a FTF encounter for this patient was performed on December 17, 2022 and that such encounter was related to the primary reason the patient requires home health services. The encounter was conducted in the following manner: * By me as the certifying physician, DISHWASHER PREPARER, PA or * By an inpatient physician, DISHWASHER PREPARER or PA during an inpatient stay who communicated findings to me, Certification And Authentication I certify that I composed the above information based on my clinical judgment relating to this patient's medical condition and, if applicable, clinical findings communicated to me by the NPP or inpatient physician who performed the FTF encounter. Name of Provider that will be monitoring home health services: Jefe Coffey
--- NOTE | 2022-12-17 12:54 | DSE_ITS ---
Date of service: 12/17/22 Time of Service: 12:54 DS: Diagnosis Discharge Diagnosis (1) Anasarca: Status: Acute Asessment and Plan: Resolving - diuresed well, home lasix dose increased (2) CHF (congestive heart failure): Status: Chronic Asessment and Plan: As above - lungs are clear, no oxygen requirements (3) Type 2 diabetes mellitus: Status: Chronic Asessment and Plan: Continue current home regimen; glucose has been controlled while she is hosptialized. (4) Cirrhosis: Status: Chronic Discharge Plan Disposition Patient Disposition: Home W/Home Health Services Condition: Good Discharge Details Reason For Visit: Anasarca,Acute on Chronic CHF Admit Date/Time: 12/13/22 18:39 Admit Provider: Devin Carlson Attending Provider: Devin Carlson Primary Care Provider: Jefe Coffey Hospital Course Hospital Course: This is a 67-year-old female patient with past medical history of gastric antral vascular ectasia, prior hysterectomy, who presented to the [facility] ED on 12/13/2022 who lives with her and other family, most of whom are not doing well medically, with chief complaint of difficulty ambulating and inability to get to the bathroom on time without having incontinence of urine and having to clean herself each time. 2 days prior to admission her skin began to become irritated and she stopped taking her Lasix. ?She was admitted to the hospital overnight 2 weeks ago for edema and for diuresis.? She was discharged on Lasix at that time and has been having progressive abdominal swelling and hardness over the bottom of her abdominal pannus since that admission.?The patient now has a bedside commode at home which will be helpful with shortening her distance to travel and incontinence of urine.? She had no other urinary symptoms and no abdominal symp toms other than her discomfort over the pannus from swelling.? Recent echocardiogram revealing preserved left ventricular ejection fraction.? She diuresed well with IV Lasix. She lost about 11 kg during her hospitalization. She is being discharged to home with increased dose of Lasix.? She will benefit from nursing, PT, OT and [facility].? The patient would like some help with ADL?s and hygiene until she get?s stronger and more independent.? She is discharged stable, improved. Patient agrees with this plan. Reviewed with Dr. Sommers Home Meds and New Rx's Prescriptions: New furosemide 20 mg Tablet 40 mg PO BID Qty: 60 0RF Continued metformin 1,000 mg Tablet 1,000 mg PO BID ropinirole 2 mg Tablet 2 mg PO BID carvedilol 3.125 mg Tablet 3.125 mg PO BID Rx Instructions: must administer with a meal/food spironolactone 25 mg Tablet 25 mg PO DAILY zolpidem 5 mg Tablet 5 mg PO QHS PRN pantoprazole 40 mg Tablet,Delayed Release (Dr/Ec) 40 mg PO BID Discontinued furosemide [Lasix] 20 mg Tablet 20 mg PO DAILY Discharge Instructions Additional Instructions: Increase Lasix. Take medication as prescribed. Home Health will call you to arrange a date and time to visit. Stand Alone Forms: Nursing Discharge Form Referrals: Jefe Coffey [Primary Care Provider] - (Please call your on saturday morning in 1-2 weeks for hospital discharge ) Activity:: Activity as Tolerated Equipment/Supplies:: No Equipment Needed Diet:: Low Sodium Discharge Orders Discharge Orders: Discharge Order (Routine); Ordered 12/17/22 Ordered By: Diann Machuca DS: Summary Time Spent with Patient providing and/or coordinating discharge services: Greater than 30 minutes Status at Discharge Functional status at discharge: uses cane/walker Overall status at discharge: patient is progressing back to baseline Mental Status: mental status grossly normal Speech and Movement: speech and movement normal Mood: congruent mood Affect: normal affect Exam Psych Mental Status: mental status grossly normal Speech and Movement: speech and movement normal Mood: congruent mood Affect: normal affect DS: Data Vitals/I&O Vitals and I&O: Vital Signs Temperature 35.7 C L 12/17/22 11:17 Temperature Source Tympanic 12/17/22 11:17 Pulse 71 12/17/22 11:17 Pulse Rhythm Regular 12/16/22 17:01 Pulse 92 H 12/13/22 17:01 Respiratory Rate 20 12/17/22 11:17 Respiratory Effort Normal, Non-Labored 12/16/22 20:15 Respiratory Depth Normal 12/16/22 20:15 Respiratory Pattern Normal 12/16/22 20:15 Blood Pressure 132/51 L 12/17/22 11:17 Blood Pressure Mean 77 12/13/22 19:16 Blood Pressure Position Supine 12/13/22 16:13 Pulse Oximetry 97 12/17/22 11:17 Oxygen Delivery Method Room Air 12/17/22 11:17 Oxygen Flow Rate 0 12/17/22 11:17 Fraction of Inspired Oxygen (FIO2) 21 12/16/22 08:15 Pain Level 0 12/17/22 00:19 Comment patient states shes having a hard time breathing. RN notified 12/15/22 05:23 Intake & Output 12/16/22 12/17/22 12/17/22 23:59 11:59 23:59 Intake Total 240 / 240 Output Total 1750 / 2550 1800 / 2100 300 / 2100 Balance -1750 / -2060 -1800 / -1860 -60 / -1860 Weight 113.5 kg 111.5 kg Intake: Oral 240 / 240 Output: Urine 1750 / 2550 1800 / 2100 300 / 2100 Other: Urine Color Yellow Yellow Pale Yellow Urine Appearance Clear Clear Clear Urine Odor None Normal Comment patient reports having frequency and urgency Stool Size Large Stool Characteristics Formed Voiding Methods Toilet Toilet Toilet Data Completed and Pending Labs on day of discharge: Labs from last 24 hours 12/17/22 12/17/22 05:33 05:33 WBC 3.53 L RBC 3.19 L Hgb 7.8 L Hct 26.9 L MCV 84 MCH 24.5 L MCHC 29.0 L RDW 16.3 H Plt Count 132 MPV 10.4 Immature Gran % 0.0 Neutrophils % 49.1 Lymphocytes % 31.4 Monocytes % 11.6 Eosinophils % 6.8 Basophils % 1.1 Nucleated RBC % 0.0 Absolute Neutrophils 1.73 Absolute Lymphocytes 1.11 L Absolute Monocytes 0.41 Absolute Eosinophils 0.24 Absolute Basophils 0.04 Sodium 140 Potassium 3.6 Chloride 102 Carbon Dioxide 33.9 H Anion Gap 4.1 BUN 17 Creatinine 1.0 Est GFR (CKD-EPI 2020) 61.75 Glucose 150 H Calcium 8.6 Magnesium 1.8 PFSH All Active Problems (Updated 12/16/22 @ 21:13 by Diann Machuca NP) Discharge planning issues (Acute) DVT prophylaxis (Acute) Cirrhosis (Chronic) Type 2 diabetes mellitus (Chronic) SALCIDO (nonalcoholic steatohepatitis) (Chronic) Anasarca (Acute) CHF (congestive heart failure) (Chronic) Social History Smoking/Tobacco Use Status: Never Smoking risk assessment performed?: Yes Alcohol Intake: never Drug use: Never Substance use type: does not use Do you feel safe at home: Yes Do you feel safe in your relationship?: Yes Time Spent with Patient Time Spent with Patient: 45-69 minutes Time was spent: preparing to see the patient(eg.review tests), obtaining and/or reviewing separately otained hiistory, ordering medications,tests, procedures, referring, communicating with other health health care recruiter, indepentently interpreting results, counseling the patient and care coordination
--- NOTE | 2022-12-17 13:07 | PDOC.CMDIS ---
- If Service Date Differs Date of service: 12/17/22 Time of Service: 13:07 LACE Index Scoring Tool - Questions: Length of Stay (in days): 4 - 6 Acuity (Admit via E.D.?): Yes Comorbidities: Diabetes w/o Complication, Congestive Heart Failure, Liver or Renal Disease E.D. Visits: 2 - Answers: Total Score: 14 Risk of Readmission: High Risk Care Management Discharge Reason for Hospitalization: Anasarca and CHF Discharge Plan: Re will be discharged home with new home health services for nursing, PT, OT and DIESEL LOCOMOTIVE FIRER/FIREMAN. She will follow up with her PCP and plan of care and transport via RCT coordinated by CM. Patient/Family Education Needs: Review of discharge instructions, limitations, activity, medications, follow up plan and discuss Ask Me Three Services Needed at Discharge: Home Health Care Services
--- NOTE | 2022-12-20 08:52 | PT.INDS ---
Date of service: 12/17/22 PT Notes Visit Reasons: Anasarca,Acute on Chronic CHF Physical Therapy Inpatient Discharge Summary Date: 12/17/2022 Dates of service: 08/23/2023 through 12/16/2022 This is a clinical summary of care provided for the duration of dates listed above. No charge was made in the completion of this documentation. Referring Doctor:? Devin Carlson MD PT Orders: PT CONSULT: Limited ability to clip for stair only do so I did so like for patients okay Precautions: Fall. Standard. Activity as tolerated. Patient Profile/Admitting Diagnosis:? Re is a 67-year-old female who presented to the ED on 12/13/2022 due to increasing weight and intermittent lower abdominal discomfort.? Per chart review patient has recently been [place] [facility] [place] of volume overload 2 weeks ago.? Patient is admitted for management of anasarca, CHF, SALCIDO, and type II DM. PMHX: All Active Problems?(Updated 12/14/22 @ 01:02 by Devin Carlson) Type 2 diabetes mellitus (Chronic) SALCIDO (nonalcoholic steatohepatitis) (Chronic) Anasarca (Acute) CHF (congestive heart failure) (Chronic) Social History/Home Situation: Lives with , son, and [id number] (with lung cancer) in a private home with 3 steps to enter with rails.? Patient and family recently moved to [place] from [place], [place]. independent of all aspects of ADLs.? Uses front wheeled walker occasionally at home when pain in both knees gets too much. Equipment Owned/DME: FWW, SPC Subjective: NT. See most recent RATE SETTER notes. Objective: General Observation: NT. See most recent RATE SETTER notes. Mental Status: NT. See most recent RATE SETTER notes. Pain: NT. See most recent RATE SETTER notes. Vital Signs: NT. See most recent RATE SETTER notes. ROM: Right Upper Extremity: ? Shoulder Flexion allows up to 100 degrees. Shoulder abduction allows up to 100 degrees. Elbow flexion WFL. Wrist flexion WFL. Functional opening and closing of hand WFL. Left Upper Extremity:? Shoulder Flexion allows up to 100 degrees. Shoulder abduction allows up to 100 degrees. Elbow flexion WFL. Wrist flexion WFL. Functional opening and closing of hand WFL. Right Lower Extremity: Hip flexion limited to about 100 degrees due to body shape. Hip abduction WFL. Knee flexion WFL. Ankle dorsiflexion to neutral only. Ankle plantarflexion WFL. Left Lower Extremity: Hip flexion limited to about 100 degrees due to body shape. Hip abduction WFL. Knee flexion WFL. Ankle dorsiflexion to neutral only. Ankle plantarflexion WFL. Strength: Right Upper Extremity: Shoulder flexors 3-/5. Shoulder abductors 3-/5. Elbow flexors 4-/5. Elbow extensors 4-/5. Audio Visual Arts Director strong. Left Upper Extremity: Shoulder flexors 3-/5. Shoulder abductors 3-/5. Elbow flexors 4-/5. Elbow extensors 4-/5. Audio Visual Arts Director strong. Right Lower Extremity: Hip flexors 3-/5. Hip abductors 4-/5. Knee flexors 4-/5. Knee extensors 4-/5. Ankle dorsiflexors 3-/5. Ankle plantarflexors 4-/5. Left Lower Extremity: Hip flexors 3-/5. Hip abductors 4-/5. Knee flexors 4-/5. Knee extensors 4-/5. Ankle dorsiflexors 3-/5. Ankle plantarflexors 4-/5. BED MOBILITY/TRANSFERS? Up in chair when I arrived. Stated the nurse did have to again help her get out of bed due to bed being so wide. ? Sit-stand: CGA? Stand-sit: CGA ? GAIT? Assistive Device: FWW? Weight bearing: Full Assist: CGA / SBA ? Distance:? 300 ft without standing or seated rest and min SOB? ? Balance: Static Sitting: Normal Dynamic Sitting: Normal Static Standing: Fair Dynamic Standing: Fair Assessment: Patient presents with clinical signs and symptoms consistent with current/admitting diagnoses that have resulted to mobility limitations, gait instability, generalized weakness, and overall ADL decline as demonstrated by the following impairment level findings: 1.? Decreased strength to B UE/LE major muscle groups 2.? Impaired standing balance 3.? Impaired activity tolerance 4.? Shortness of breath 5.? Swelling in B LE Impairments are contributing to the following functional limitations: 1.? Decline in bed mobility skills 2.? Decline in transfer skills 3.? Difficulty with ambulation without assistive device and physical assistance 4.? Increased completion time for mobility ADL performance 5.? Increased risk for falls 6.? Difficulty with managing steps alone safely Goals: Goals X1 week 1. Supine-Sit independent NOT MET 2. Sit-Supine independent NOT MET 3. Sit-Stand independent NOT MET 4. Stand-Sit independent with FWW NOT MET 5. Bed-Chair independent with FWW NOT MET 6. Chair-Bed independent with FWW NOT MET 7. Independent gait on level surface with use of FWW for at least 300 feet without report of pain nor dyspnea NOT MET 8. Independent stair negotiation while holding onto B rails for at least 5 steps without report of pain nor dyspnea NOT MET 9. Independent with home exercise program NOT MET 10. Good static and dynamic standing balance/tolerance NOT MET DISCHARGE RECOMMENDATIONS: [] ? Home with no services [] [X] ? Home with services.? Home when medically cleared by hospitalist.? Home when medically cleared by hospitalist.? Recommend home health PT services in order to progress mobility level using least restrictive assistive ambulatory device, assess home safety, identify additional equipment needs, and establish a functional maintenance program that will increase ability of patient to remain at home. [] ? Home with outpatient PT. [] ? SNF for continued rehabilitation [] [] ? Jail Care [] [] ? SNF versus LTC based on ability to participate and progress [] TREATMENT CODE/TIME: NH Thank you for the opportunity to participate in the care of this patient. Kayla Simpson PT, DPT, CLT [facility] [place], [place]
== END 2022-12-17 13:20 | disposition home health service (06) | DRG 292 ==
LOC: ER 18:36 → MS 12-14 08:41
PROVIDERS: Internal Medicine; Nurse Practitioner Family; Admitting Provider Family Medicine; Emergency Provider Emergency Medicine; PCP Family Medicine; Visit Provider Family Medicine
DX: I50.33 Acute on chronic diastolic (congestive) heart failure (principal); R18.8 Other ascites; Z68.42 Body mass index [BMI] 45.0-49.9, adult; K50.90 Crohn's disease, unspecified, without complications; K75.81 Nonalcoholic steatohepatitis (NASH); E11.9 Type 2 diabetes mellitus without complications; D64.9 Anemia, unspecified; E66.9 Obesity, unspecified; T50.1X6A Underdosing of loop [high-ceiling] diuretics, initial encounter; Z91.128 Patient's intentional underdosing of medication regimen for other reason; Z79.84 Long term (current) use of oral hypoglycemic drugs; K74.69 Other cirrhosis of liver
CPT/HCPCS: 36415; 36416; 51702; 80048; 80053; 82962; 83690; 85027; 87635; 93005; 96374; 97162; 97166; 97530; 97535; 99285; 71045; 74177; 80320; 81003; 81015; 82248; 82607; 82728; 82746; 83735; 83880; 84443; 84484; 85025; 85610; 85730; 86140; 93010; 99223; 99232; 99239; J1644; J1940; J3490

== ENCOUNTER 2023-01-21 06:46 | Emergency (ER) | payer MEDICARE, SELFPAY ==
[2023-01-21 06:46] VITALS: BP 119/67; PULSE 97; RESP 18; TEMP 37; O2SAT 98
--- NOTE | 2023-01-21 06:49 | W.ED.GENAD ---
Discharge Plan Disposition Patient Disposition: Home Condition: Stable Discharge Details Clinical Impression: Fall, Closed fracture of left clavicle, Fracture of radial head, left, closed Primary Care Provider: Jefe Coffey ED Provider: Daniel Craft Home Meds and New Rx's Prescriptions: Continued metformin 1,000 mg Tablet 1,000 mg PO BID ropinirole 2 mg Tablet 2 mg PO BID spironolactone 25 mg Tablet 25 mg PO DAILY zolpidem 5 mg Tablet 5 mg PO QHS PRN pantoprazole 40 mg Tablet,Delayed Release (Dr/Ec) 40 mg PO BID furosemide 20 mg Tablet 40 mg PO BID Qty: 60 0RF No Action carvedilol 3.125 mg tablet 6.25 mg PO BID Rx Instructions: must administer with a meal/food doxepin 10 mg capsule 10 mg PO DAILY fluoxetine 40 mg capsule 40 mg PO DAILY gabapentin 300 mg capsule 300 mg PO DAILY montelukast 10 mg tablet 10 mg PO DAILY oxycodone 5 mg tablet 5 mg PO Q6H PRN Rybelsus 3 mg tablet 3 mg PO DAILY Discharge Instructions Instructions: Clavicle Fracture (ED), Fall Prevention for Older Adults (ED) Additional Instructions: Please be sure to wear socks with pay per click strategist appropriately positioned on the floor. Continue to use sling. Follow-up with orthopedics. Please contact your primary care physician to arrange follow-up. Return to the ER immediately for any worsening or new concerning symptoms. Referrals: [facility] [Provider Group] Jefe Coffey [Primary Care Provider] - Discharge Data Discharge Date/Time-TO BE ENTERED AT DEPARTURE: 01/21/23 10:22 Medical Decision Making 0705 -- 67-year-old female with a history of morbid obesity, diabetes, CHF, Gallagher, cirrhosis and anasarca who was diagnosed with a left clavicle fracture status post mechanical fall 3 days ago presents for worsening left clavicle, shoulder and elbow pain after another mechanical fall this morning. Vitals within normal limits. Patient appears somewhat uncomfortable but nontoxic. Her left arm is in a sling. She has tenderness overlying her left clavicle and left anterior shoulder. She also has tenderness to her left medial epicondyle. Her left arm distal pulses are intact. She has full range of motion of the remainder of her extremities without pain or deformity. She has no chest or abdominal or midline spinal tenderness. We will give a dose of ibuprofen and oxycodone p.o. refer for left clavicle, shoulder and elbow x-rays. 0800 -- Case endorsed to Dr. Craft to follow-up on imaging and final disposition. Medical Records Medical records reviewed: Yes I reviewed the patient's medical records. HPI General Mode of arrival: EMS. Date/Time Provider Initiated Documentation: 01/21/23 06:55. Limitations to Documentation: no limitations. Information obtained by: patient. HPI Narrative: Patient is a 67-year-old female with a history of morbid obesity, diabetes, CHF, Gallagher, cirrhosis and anasarca who presents for mechanical fall this morning with worsening left clavicle, left shoulder and left elbow pain after being diagnosed with a clavicle fracture 3 days ago. Patient states she was being seen by her doctor Dr. Coffey at [facility] on Saturday for a routine appointment and had endorsed to him that she had a fall on Saturday in which she slipped on a plastic trash bag and fell onto her left arm. He referred her for an x-ray and she was diagnosed with a left clavicle fracture. She states she is unsure if she had an elbow x-ray at that time but states she has been having some elbow pain since then as well. She states she has been wearing her sling and today she was attempting to get up out of a chair and she was unable to as she did not have the use of her left arm and her socks also slipped on the ground and she fell onto her left arm and elbow again. Patient denies any other injuries with the fall today. She states she is now having increased pain in her left clavicle, shoulder left elbow. She denies head injury, headache, LOC or vomiting. She does admit to some left-sided neck pain radiating from her left clavicle. She states she was given oxycodone for her clavicle fracture of which she took 1 dose this morning after her fall with some relief but states the pain is now returning. She denies any chest pain, difficulty breathing, abdominal pain, back pain or other extremity pain or injury. Related Data Home Medications Medication Instructions Recorded Confirmed metformin 1,000 mg tablet 1,000 mg PO BID 11/09/22 01/21/23 ropinirole 2 mg tablet 2 mg PO BID 11/09/22 01/21/23 spironolactone 25 mg tablet 25 mg PO DAILY 11/09/22 01/21/23 zolpidem 5 mg tablet 5 mg PO QHS PRN 11/09/22 01/21/23 pantoprazole 40 mg tablet,delayed 40 mg PO BID 12/15/22 01/21/23 release furosemide 20 mg tablet 40 mg PO BID #60 tabs 12/17/22 01/21/23 carvedilol 3.125 mg tablet 6.25 mg PO BID 01/23/23 doxepin 10 mg capsule 10 mg PO DAILY 01/23/23 fluoxetine 40 mg capsule 40 mg PO DAILY 01/23/23 gabapentin 300 mg capsule 300 mg PO DAILY 01/23/23 montelukast 10 mg tablet 10 mg PO DAILY 01/23/23 oxycodone 5 mg tablet 5 mg PO Q6H PRN 01/23/23 semaglutide 3 mg tablet (Rybelsus) 3 mg PO DAILY 01/23/23 Previous Rx's Medication Instructions Recorded furosemide 20 mg tablet 40 mg PO BID #60 tabs 12/17/22 Allergies Allergy/AdvReac Type Severity Reaction Status Date / Time Penicillins Allergy Severe Swelling/Ed Unverified 01/21/23 06:55 sophie tramadol Allergy Severe Swelling/Ed Unverified 01/21/23 06:55 sophie apricot Allergy Intermediate Hives Unverified 01/21/23 06:55 vancomycin AdvReac Intermediate Other (See Unverified 01/21/23 06:55 Comment) General Stated Complaint: Orthopedic CHELA: 3 Review of Systems All systems reviewed & are unremarkable except as noted in HPI and below Constitutional Constitutional: Reports as per HPI, Denies chills and Denies fever(s) Eyes Eyes: Denies blurry vision ENT Ears, Nose, Mouth, and Throat: Denies dizziness, Denies sore throat and Denies throat swelling Cardiovascular Cardiovascular: Denies chest pain and Denies dyspnea Respiratory Respiratory: Denies cough and Denies dyspnea Gastrointestinal Gastrointestinal: Denies abdominal pain, Denies diarrhea and Denies vomiting Genitourinary Genitourinary: Denies hematuria and Denies dysuria Musculoskeletal Musculoskeletal: Denies back pain and Denies numbness Comments: left shoulder, clavicle, elbow pain Integumentary/Breasts Skin/Breast: Denies lesions and Denies rash Neurologic Neurologic: Denies dizziness, Denies localized weakness and Denies numbness Allergic/Immunologic Allergic/Immunologic: Denies throat swelling PFSH All Active Problems (Updated 01/23/23 @ 09:13 by Garth Burk RN) Submucosal neoplasm of stomach (Acute) JAYDEN (obstructive sleep apnea) (Chronic) Lung nodule (Acute) Biliary dyskinesia (Acute) Atypical angina (Acute) Acquired arteriovenous malformation (Acute) Fall (Acute) Closed fracture of left clavicle (Acute) Fracture of radial head, left, closed (Acute) Medical History (Updated 01/23/23 @ 09:13 by Garth Burk RN) Anasarca Anemia Anxiety CHF (congestive heart failure) Chronic low back pain Cirrhosis Crohn's disease Depressive disorder Dyslipidemia Lesion of esophagus Lumbar spondylosis GALLAGHER (nonalcoholic steatohepatitis) Neoplasm of parotid gland Restless legs Type 2 diabetes mellitus Surgical History (Updated 01/23/23 @ 09:13 by Garth Burk RN) History of hysterectomy History of sleeve gastrectomy History of total knee arthroplasty Social History Smoking/Tobacco Use Status: Never Smoking risk assessment performed?: Yes Alcohol Intake: never Drug use: Never Substance use type: does not use Do you feel safe at home: Yes Do you feel safe in your relationship?: Yes Exam Const General: cooperative and no acute distress Nutritional Appearance: obese morbidly obese Orientation: alert, awake and oriented x3 HENMT Head: normal to inspection Ears: hearing grossly normal bilaterally and external ears normal Face and sinus: normal facial exam Eyes General: appearance normal, both eyes and all related structures Pupils: PERRL EOM: EOM intact bilaterally Neck Neck: normal visual inspection and No submandibular swelling Lymphatic: no lymphadenopathy noted Chest Chest: normal inspection of the chest, normal palpation of entire chest wall and no tenderness Resp Effort & Inspection: normal respiratory effort and able to speak in complete sentences Auscultation: clear to auscultation bilaterally Cardio Rate: regular rate Rhythm: regular rhythm GI Inspection: normal to inspection and no abdominal wall ecchymosis Palpation: soft, not firm, not rigid and nontender Auscultation: hypoactive bowel sounds Back/Spine/Pelvis Cervical Spine: No cervical spinal tenderness Thoracic/Lumbar Spine: thoracic and lumbar spine normal to inspection, No thoracic spinal tenderness and No lumbar spinal tenderness Pelvis: no pain with anterior-posterior compression Skin General skin exam: no rashes or lesions noted Neuro General: patient alert, patient awake and patient oriented x3 Cognition: normal cognition Speech: speech normal Motor: muscle tone normal throughout Sensory Exam: no sensory deficits noted Extrem Shoulder/upper arm images: 1. Tenderness to palpation along left clavicle left anterior shoulder. Left arm in sling. No obvious deformity. Other: Tenderness to palpation of left medial epicondyle. No tenderness to palpation to the left forearm, wrist or hand. Normal range of motion of right upper extremity without pain or deformity. Normal range of motion of bilateral lower extremities without pain or deformity. Left radial and ulnar pulses intact. Psych Appearance: grossly normal Mental Status: mental status grossly normal Speech and Movement: speech and movement normal Affect: normal affect Sign Out Sign Out Data: Sign Out Comment: Diagnosed with left clavicle fracture after a mechanical fall 3 days ago. Here today for another mechanical fall onto left arm now with worsening pain. Follow-up on x-rays. Last updated by Oliva Mcfadden DO at 01/21/23 07:38
[2023-01-21] MEDS: Ibuprofen 600 MG TAB PO (07:23)
[2023-01-21] MEDS: oxyCODONE 5 MG TAB PO (07:23)
--- NOTE | 2023-01-21 07:59 | DI.RAD_ITS ---
Exam(s) XR SHOULDER LT COMPLETE 2+V EXAM: XR SHOULDER LT COMPLETE 2+V CLINICAL HISTORY: fall onto L shoulder, r/o new fx. TECHNIQUE: 2D digital imaging was performed. COMPARISON: CR,XR XR CHEST 1V IN DI DEPT from 12/13/2022 FINDINGS: Five views: No evidence of acute fracture of the humeral head and neck. No abnormal soft tissue calcifications. Small bony excrescence the greater tuberosity level probably related to element of calcific insertio nal chronic tendinitis. There is widening of the AC joint which appears be postsurgical. There is a n acute midshaft fracture of the left clavicle noted. IMPRESSION: Acute midshaft fracture of the left clavicle. Widening of the left AC joint which is not a new finding and is probably postsurgical. DATA REPOSITORY: RADIATION DOSE DELIVERED:
--- NOTE | 2023-01-21 07:59 | DI.RAD_ITS ---
Exam(s) XR ELBOW LT COMPLETE EXAM: XR ELBOW LT COMPLETE CLINICAL HISTORY: fall onto L elbow, tender medial, r/o fx. TECHNIQUE: 2D digital imaging was performed. COMPARISON: No exams were available for comparison FINDINGS: 3 views There is prominent soft tissue swelling in the arm both above and below the elbow level. There is no evidence of acute fracture. Findings at the level of the medial epicondyle are consisten t with chronic epicondylitis. There E subtle deformity cortex on the medial side of the radial neck may represent subtle fracture site. There appears to be a joint effusion. IMPRESSION: Possible subtle fracture of the radial head-neck junction. Soft tissue swelling. No radiopaque foreign body. Also findings of chronic medial epicondylitis. DATA REPOSITORY: RADIATION DOSE DELIVERED:
--- NOTE | 2023-01-21 07:59 | DI.RAD_ITS ---
Exam(s) XR CLAVICLE LT EXAM: XR CLAVICLE LT CLINICAL HISTORY: fall onto L shoulder, r/o worsening fx. TECHNIQUE: 2D digital imaging was performed. COMPARISON: No exams were available for comparison FINDINGS: Two views: There is an acute appearing midshaft fracture of the left clavicle minimal displacement. Widening of the AC joint noted which is not an acute finding. IMPRESSION: Midshaft clavicle fracture as described above. DATA REPOSITORY: RADIATION DOSE DELIVERED:
--- NOTE | 2023-01-21 09:35 | W.EDPROG ---
Date of service: 01/21/23 Time of Service: 09:35 Medical Decision Making Care was signed out by Dr. Mcfadden, please see her documentation regarding initial ED presentation and course. Plan at signout was to follow-up on x-ray imaging. X-ray of the left clavicle interpreted by radiology: Midshaft clavicle fracture with some displacement X-ray of the shoulder interpreted by radiology: Acute midshaft fracture of the left clavicle. Widening of the left AC joint which is not a new finding and is probably postsurgical. X-ray of the elbow interpreted by radiology: Possible subtle fracture of the radial head-neck junction. Soft tissue swelling.? No radiopaque foreign body. Also findings of chronic medial epicondylitis. Patient has very minimal tenderness over her elbow. Spoke with Dr. Joseph reviewed images and recommend continue sling and will see patient follow-up. Discharge instructions reviewed with patient occluding fall precautions. Sign Out Sign Out Data: Sign Out Comment: Diagnosed with left clavicle fracture after a mechanical fall 3 days ago. Here today for another mechanical fall onto left arm now with worsening pain. Follow-up on x-rays. Last updated by Oliva Mcfadden DO at 01/21/23 07:38 Discharge Plan Disposition Patient Disposition: Home Condition: Stable Discharge Details Clinical Impression: Fall, Closed fracture of left clavicle, Fracture of radial head, left, closed Primary Care Provider: Jefe Coffey ED Provider: Daniel Craft Home Meds and New Rx's Prescriptions: Continued metformin 1,000 mg Tablet 1,000 mg PO BID ropinirole 2 mg Tablet 2 mg PO BID carvedilol 3.125 mg Tablet 3.125 mg PO BID Rx Instructions: must administer with a meal/food spironolactone 25 mg Tablet 25 mg PO DAILY zolpidem 5 mg Tablet 5 mg PO QHS PRN pantoprazole 40 mg Tablet,Delayed Release (Dr/Ec) 40 mg PO BID furosemide 20 mg Tablet 40 mg PO BID Qty: 60 0RF Discharge Instructions Instructions: Clavicle Fracture (ED), Fall Prevention for Older Adults (ED) Additional Instructions: Please be sure to wear socks with senior site manager appropriately positioned on the floor. Continue to use sling. Follow-up with orthopedics. Please contact your primary care physician to arrange follow-up. Return to the ER immediately for any worsening or new concerning symptoms. Referrals: [facility] [Provider Group] Jefe Coffey [Primary Care Provider] -
[2023-01-21 10:20] VITALS: BP 129/64; PULSE 71; RESP 16; TEMP 36.7; O2SAT 97
== END 2023-01-21 10:22 | disposition home or self-care (01) ==
PROVIDERS: Emergency Provider Student in an Organized Health Care Education/Training Program; PCP Family Medicine
DX: S42.002A Fracture of unspecified part of left clavicle, initial encounter for closed fracture (principal); S52.122A Displaced fracture of head of left radius, initial encounter for closed fracture; E66.01 Morbid (severe) obesity due to excess calories; I50.9 Heart failure, unspecified; E11.9 Type 2 diabetes mellitus without complications; Z79.84 Long term (current) use of oral hypoglycemic drugs; W01.0XXA Fall on same level from slipping, tripping and stumbling without subsequent striking against object, initial encounter
CPT/HCPCS: 99284; 73000; 73030; 73080

== ENCOUNTER → 2023-01-29 13:15 | Outpatient (BNVA) | payer MEDICARE, SELFPAY | PROVIDERS: PCP Family Medicine; Referring Provider Family Medicine; Visit Provider Student in an Organized Health Care Education/Training Program ==

== ENCOUNTER 2023-02-01 16:40 | Inpatient (IN) | payer MEDICARE, SELFPAY ==
[2023-02-01] VITALS (22 sets, daily range): BP systolic 96–151; BP diastolic 30–88; PULSE 85–89; RESP 11–23; TEMP 36.7–37.4; O2SAT 96–100
--- NOTE | 2023-02-01 16:53 | W.ED.GENAD ---
Discharge Plan Disposition Patient Disposition: Admit to [facility] Discharge Details Clinical Impression: Anemia due to gastrointestinal blood loss, Hyperglycemia due to type 2 diabetes mellitus Primary Care Provider: Jefe Coffey ED Provider: Arslan Santana [facility] and New Rx's Prescriptions: No Action carvedilol 3.125 mg tablet 6.25 mg PO BID Rx Instructions: must administer with a meal/food doxepin 10 mg capsule 10 mg PO DAILY fluoxetine 40 mg capsule 40 mg PO DAILY gabapentin 300 mg capsule 300 mg PO DAILY montelukast 10 mg tablet 10 mg PO DAILY oxycodone 5 mg tablet 5 mg PO Q6H PRN Rybelsus 3 mg tablet 3 mg PO DAILY metformin 1,000 mg Tablet 1,000 mg PO BID ropinirole 2 mg Tablet 2 mg PO BID spironolactone 25 mg Tablet 25 mg PO DAILY zolpidem 5 mg Tablet 5 mg PO QHS PRN pantoprazole 40 mg Tablet,Delayed Release (Dr/Ec) 40 mg PO BID furosemide 20 mg Tablet 40 mg PO BID Qty: 60 0RF Medical Decision Making Patient presenting per PCP request for abnormal labs drawn today. Patient reports history of diabetes as well as history of GI bleed. She has a low hemoglobin and an elevated glucose per PCP. She is more or less asymptomatic. She feels a little lightheaded and dizzy at times. She has noticed dark stool but no black or bloody stool. She is not having chest pain, shortness of breath, abdominal pain. We will plan IV and repeat labs. She has required transfusions in the past. Her fingerstick blood sugar here is 467. Given problems with anasarca and CHF we will hold off on fluids despite elevated blood sugar. Will dose with regular subcu insulin. Patient's hemoglobin is low at 6.8. She has been typed and screened. We will plan to transfuse 1 unit, consent obtained. Her chemistries with minor abnormalities nothing of significance other than the elevated glucose of 446. Discussed with hospitalist for admission to transfuse, control blood sugar, monitor serial hemoglobins. Patient likely with a slow chronic GI bleed secondary to her gastric antral ectasia. She remains hemodynamically stable. Patient agreeable with admission. Patient accepted by hospitalist service. Medical Records Medical records reviewed: Yes I reviewed the patient's medical records. Medical records narrative: Inpatient records from admission December 2022 Lab Data Lab results reviewed: Yes I reviewed the patient's lab results. Lab results narrative: hgb 6.8 HPI General Mode of arrival: ambulatory. Date/Time Provider Initiated Documentation: 02/01/23 16:53. Limitations to Documentation: no limitations. Information obtained by: patient. HPI Narrative: Patient presents to ED on advice of PCP due to abnormal laboratory studies that had been drawn today. Patient reports she was told that her hemoglobin is down to 6 and that her glucose was up over 400. She is a diabetic and has been taking her pills. She also has a history of gastritis and has noticed dark stool but no black or bloody stool, no vomiting. She has recently been diuresed almost 26 pounds of fluid. She is no longer having any type of shortness of breath. She gets a little lightheaded and dizzy at times. She is not having chest pain or abdominal pain. She denies fever or cough. Related Data Home Medications Medication Instructions Recorded Confirmed metformin 1,000 mg tablet 1,000 mg PO BID 11/09/22 02/01/23 ropinirole 2 mg tablet 2 mg PO BID 11/09/22 02/01/23 spironolactone 25 mg tablet 25 mg PO DAILY 11/09/22 02/01/23 zolpidem 5 mg tablet 5 mg PO QHS PRN 11/09/22 02/01/23 pantoprazole 40 mg tablet,delayed 40 mg PO BID 12/15/22 02/01/23 release furosemide 20 mg tablet 40 mg PO BID #60 tabs 12/17/22 02/01/23 carvedilol 3.125 mg tablet 6.25 mg PO BID 01/23/23 02/01/23 doxepin 10 mg capsule 10 mg PO DAILY 01/23/23 02/01/23 fluoxetine 40 mg capsule 40 mg PO DAILY 01/23/23 02/01/23 gabapentin 300 mg capsule 300 mg PO DAILY 01/23/23 02/01/23 montelukast 10 mg tablet 10 mg PO DAILY 01/23/23 02/01/23 oxycodone 5 mg tablet 5 mg PO Q6H PRN 01/23/23 02/01/23 semaglutide 3 mg tablet (Rybelsus) 3 mg PO DAILY 01/23/23 02/01/23 Previous Rx's Medication Instructions Recorded furosemide 20 mg tablet 40 mg PO BID #60 tabs 12/17/22 Allergies Allergy/AdvReac Type Severity Reaction Status Date / Time Penicillins Allergy Severe Swelling/Ed Unverified 02/01/23 16:47 sophie tramadol Allergy Severe Swelling/Ed Unverified 02/01/23 16:47 sophie apricot Allergy Intermediate Hives Unverified 02/01/23 16:47 vancomycin AdvReac Intermediate Other (See Unverified 02/01/23 16:47 Comment) General Stated Complaint: GenMedical CHELA: 3 Review of Systems Narrative: per HPI PFSH All Active Problems (Updated 02/01/23 @ 18:31 by Arslan Santana MD) Anemia due to gastrointestinal blood loss (Acute) Hyperglycemia due to type 2 diabetes mellitus (Acute) No-show for appointment (Acute) Submucosal neoplasm of stomach (Acute) JAYDEN (obstructive sleep apnea) (Chronic) Lung nodule (Acute) Biliary dyskinesia (Acute) Atypical angina (Acute) Acquired arteriovenous malformation (Acute) Fall (Acute) Closed fracture of left clavicle (Acute) Fracture of radial head, left, closed (Acute) Medical History Anasarca Anemia Anxiety CHF (congestive heart failure) Chronic low back pain Cirrhosis Crohn's disease Depressive disorder Dyslipidemia Lesion of esophagus Lumbar spondylosis SALCIDO (nonalcoholic steatohepatitis) Neoplasm of parotid gland Restless legs Type 2 diabetes mellitus Surgical History History of hysterectomy History of sleeve gastrectomy History of total knee arthroplasty Social History Smoking/Tobacco Use Status: Never Smoking risk assessment performed?: Yes Alcohol Intake: never Drug use: Never Substance use type: does not use Do you feel safe at home: Yes Do you feel safe in your relationship?: Yes Exam Narrative Exam Narrative: Const: Obese elderly female in NAD. HEENT: NC/AT. Normal facial exam. Eyes: Normal conjunctiva and sclera. Neck: Supple. Trachea midline. Lungs: Normal respiratory effort. Lungs are clear. Cor: RRR with murmur. Good radial pulses. GI: Soft. NT/ND. No guarding or rebound. Neuro: A+O x 3. Normal speech, mentation, gait. Cranial nerves II - XII grossly intact. No gross motor or sensory deficit. Skin: Warm and dry without rash. Course Vital Signs Vital signs: Vital Signs Temperature 98.7 F 02/01/23 16:43 Pulse 89 02/01/23 16:43 Respiratory Rate 18 02/01/23 16:43 Blood Pressure 119/36 L 02/01/23 16:43 Pulse Oximetry 100 02/01/23 16:43 Temperature 98.7 F 02/01/23 16:43 Temperature Source Tympanic 02/01/23 16:43 Pulse 89 02/01/23 16:43 Respiratory Rate 18 02/01/23 16:43 Respiratory Effort Normal 02/01/23 16:47 Blood Pressure 119/36 L 02/01/23 16:43 Blood Pressure Position Sitting 02/01/23 16:43 Pulse Oximetry 100 02/01/23 16:43 Oxygen Delivery Method Room Air 02/01/23 16:43 Oxygen Flow Rate 0 02/01/23 16:43 Pain Level 0 02/01/23 16:43
[2023-02-01 17:34] LABS: Abs Immature Grans 0.01 10^3/uL (0.0-0.06); Absolute Basophil Count 0.06 10^3/uL (0.0-0.2); Absolute Eosinophil Count 0.32 10^3/uL (0.0-0.7); Absolute Lymphocyte Count 0.94 10^3/uL (1.2-3.4); Absolute Monocyte Count 0.61 10^3/uL (0.1-0.8); Absolute Neutrophil Count 2.73 10^3/uL (1.2-6.7); Basophils % 1.3; Eosinophils % 6.9; HCT 23.5 % (36.0-46.0); Immature Grans % 0.2; Lymphocytes % 20.1; MCH 23.5 pg (27.0-33.0); MCHC 28.9 % (32.0-36.0); MCV 81 fL (80-95); MPV 10.1 fL (8.0-11.0); Monocytes % 13.1; Neutrophils % 58.4; Platelet Count 163 10^3/uL (130-400); RBC 2.89 10^6/uL (3.93-5.22); RDW-SD 50.6 fL; WBC 4.67 10^3/uL (4.4-10.8)
[2023-02-01 17:43] LABS: HGB 6.8 g/dL (11.2-15.7)
[2023-02-01 17:50] LABS: Diff Comment Diff Reviewed; Hypochromasia 2+
[2023-02-01 17:52] LABS: ALT 16 U/L (14-59); AST 25 U/L (15-37); Albumin 2.4 g/dL (3.4-5.0); Alkaline Phosphatase 265 U/L (46-116); Anion Gap 2.5 mmol/L (3-11); BUN 18 mg/dL (7-18); Bilirubin, Total 1.2 mg/dL (0.2-1.0); CO2 34.5 mmol/L (21.0-32.0); CREATININE 1.1 mg/dL (0.55-1.02); Calcium 8.2 mg/dL (8.5-10.1); Chloride 97 mmol/L (98-107); Estimated GFR 55.07 (mL/min/1.73m2); Glucose 446 mg/dL (74-106); Potassium 3.4 mmol/L (3.5-5.1); Sodium 134 mmol/L (136-145); Total Protein 6.2 g/dL (6.4-8.2)
[2023-02-01] MEDS: Normal Saline 1,000 ML 500 ML IV (18:07)
[2023-02-01] MEDS: Insulin REGULAR-Human 100 UNITS/ML UNIT 6 UNITS SC (18:33)
[2023-02-01 18:40] LABS: Source Nasal/Nares
--- NOTE | 2023-02-01 18:59 | NUR.NOTE ---
pt states her temp goes up late afternoon but goes down around 8 or 9pm Nursing Note:
[2023-02-01 19:12] LABS: COVID-19 PCR Negative (Negative)
[2023-02-01 21:53] LABS: HCT 22.4 % (36.0-46.0)
[2023-02-01 21:59] LABS: HGB 6.8 g/dL (11.2-15.7)
[2023-02-01] MEDS: Pantoprazole 40 MG VIAL IVP (22:17)
[2023-02-01] MEDS: Normal Saline Flush 10 ML SYR IVP (22:18)
[2023-02-01] MEDS: Zolpidem 5 MG TAB PO (22:49)
[2023-02-01] MEDS: rOPINIRole 0.5 MG TAB 2 MG PO (22:49)
[2023-02-01] MEDS: Insulin Glargine 300 UNITS/3 ML PEN 22 UNITS SC (22:49)
[2023-02-01] MEDS: Doxepin 10 MG CAP PO (22:50)
--- NOTE | 2023-02-01 22:52 | W.PM.HP.N ---
Date of service: 02/01/23 Time of Service: 21:30 Assessment and Plan Assessment and plan (1) Anemia due to gastrointestinal blood loss: Status: Acute Assessment and plan: Source is likely the ectatic vessles in stomach. Per her record issue is not gastric varicies but rather GAVE gastric antral vascular ectasias. Still, she is treated with non-selective beta michelle. Eli is s/p one unit of PRBC. She has some sympotms of anemia but her anemia is chronic and her hemoglobin upon presentation was less than 1g/dL less than the last level we have in December, confirming the clinical history of slow blood loss. Given this, I will continue to use 7 as a transfusion threshhold. Repeat post-transfusion hemoglobin pending. I ordered iron/TIBC with morning labs. If she is still low on iron, IV iron infusion may make transfusions less necessary. Contnue PPI BID. I don't think she needs emergent EGD unless her levels don't stabilized after transfusion. She would need to go to [facility] [place] for high risk endoscopy (2) Hyperglycemia due to type 2 diabetes mellitus: Status: Acute Assessment and plan: Reports reasonable control on oral medication as an outpatient, but hyperglycemic on presention. Will treat with weight-based basal insulin plus moderate sliding scale while inpatient. (3) JAYDEN (obstructive sleep apnea): Status: Chronic Assessment and plan: get her home unit as soon as we able. (4) CHF (congestive heart failure): Assessment and plan: SHe reports a profound diuresis over the past week. She still has some LE edema but not in severe. Continue 40mg po BID and miifor Qualifiers: Heart failure type: diastolic Heart failure chronicity: acute on chronic Qualified Code(s): I50.33 - Acute on chronic diastolic (congestive) heart failure (5) Cirrhosis: Assessment and plan: She has Tvrdy-Qdzaftas-Dmpq 7 class B cirrhosis. This appears stable looking back. (6) Depressive disorder: Assessment and plan: Continue outpatient medicaitons (7) Closed fracture of left clavicle: Status: Acute Assessment and plan: She was in a sling but she didn't bring it in. We can get a replacement. Okay to use prn oxycodone per outpatient. (8) DVT prophylaxis: Status: Acute Assessment and plan: NO chemical given active GI bleed. TEDS/SCDs (9) Discharge planning issues: Status: Acute Assessment and plan: Eli in stable on the medical floor. Her is admitted next door. History of Present Illness History of Present Illness Chief Complaint: general weakness Narrative: 67 year old female with history of cirrhosis and chronic blood loss associated gastric antral vascular ectasia was sent to the emergency room by her primary care physician today after outpatient labs returned with a hemoglobin of around 6 (I could not find exact result documented). She states she first saw her PCP a little over a week ago when she noted her legs were more swollen. Her furosemide was increased and since then she has lost 26lbs of fluid per report. She was feeling SOB, but this was improving as her leg swelling went down. She has been feeling low energy, generally weak, and lightheaded, but hasn't passed out or had any chest pain or palpitations. She states she has chronic anemia due ot watermelon stomach) and has had treatment by Dr. García at [facility] [place] [facility] via endoscopy in the past. She states her baseline anemia in 9-10 hemoglobin, and that she often gets IV iron to boost her levels. Her last hemoglobin was 7.8 on 12/17/22. She has noted some dark/blackish areas in the stool but not laxmi melena and no BRBPR. She has not had more abdominal pain. She hasn't taken any NSAIDs or other new medicaitons. Review of Systems Constitutional Constitutional: Denies anorexia, Denies chills, Denies fever(s), Reports lethargy and Denies poor appetite Eyes Eyes: Denies change in vision and Denies irritation ENT Ears, Nose, Mouth, and Throat: Denies nasal congestion, Denies nasal discharge and Denies sore throat Cardiovascular Cardiovascular: Reports as per HPI, Denies chest pain, Denies syncope, Denies palpitations, Reports dyspnea on exertion and Reports orthopnea Respiratory Respiratory: Reports cough (mild, not productive), Denies excessive phlegm production, Reports dyspnea on exertion and Denies wheezing Gastrointestinal Gastrointestinal: Reports as per HPI, Denies abdominal pain, Denies hematochezia, Denies heartburn and Denies vomiting Genitourinary Genitourinary: Denies hematuria, Denies dysuria and Reports urinary incontinence (asked for pichardo due to frequent urination on furosemide) Integumentary/Breasts Skin/Breast: Denies rash and Denies skin ulcer Neurologic Neurologic: Denies confusion, Denies syncope, Denies localized weakness and Denies sensory deficit Psychiatric Psychiatric: Denies confusion and Reports depression Endocrine Endocrine: Denies palpitations Hematologic/Lymphatic Hematologic/Lymphatic: Denies easy bleeding Allergic/Immunologic Allergic/Immunologic: Denies wheezing PFSH All Active Problems (Updated 02/01/23 @ 23:31 by Gurpreet Melchor) Discharge planning issues (Acute) DVT prophylaxis (Acute) Anemia due to gastrointestinal blood loss (Acute) Hyperglycemia due to type 2 diabetes mellitus (Acute) No-show for appointment (Acute) Submucosal neoplasm of stomach (Acute) JAYDEN (obstructive sleep apnea) (Chronic) Lung nodule (Acute) Biliary dyskinesia (Acute) Atypical angina (Acute) Acquired arteriovenous malformation (Acute) Fall (Acute) Closed fracture of left clavicle (Acute) Fracture of radial head, left, closed (Acute) Medical History Anasarca Anemia Anxiety CHF (congestive heart failure) Chronic low back pain Cirrhosis Crohn's disease Depressive disorder Dyslipidemia Lesion of esophagus Lumbar spondylosis SALCIDO (nonalcoholic steatohepatitis) Neoplasm of parotid gland Restless legs Type 2 diabetes mellitus Surgical History History of hysterectomy History of sleeve gastrectomy History of total knee arthroplasty Family History (Updated 02/01/23 @ 23:22 by Gurpreet Melchor) Brother Cancer Lung Alcohol use disorder 2 older brothers Social History (Updated 02/01/23 @ 23:03 by Gurpreet Melchor) Smoking/Tobacco Use Status: Never Smoking risk assessment performed?: Yes Alcohol Intake: never Drug use: Never Substance use type: does not use Do you feel safe at home: Yes Do you feel safe in your relationship?: Yes Additional Social history: Lives with Arslan, brother, and son in [place]. Moved from [place] in 2020. Has a dog and 7 pet birds. Meds Allergies and Home Medications Allergies Allergy/AdvReac Type Severity Reaction Status Date / Time Penicillins Allergy Severe Swelling/Ed Unverified 02/01/23 16:47 sophie tramadol Allergy Severe Swelling/Ed Unverified 02/01/23 16:47 sophie apricot Allergy Intermediate Hives Unverified 02/01/23 16:47 vancomycin AdvReac Intermediate Other (See Unverified 02/01/23 16:47 Comment) Home Medications Medication Instructions Recorded Confirmed Type metformin 1,000 mg tablet 1,000 mg PO BID 11/09/22 02/01/23 History ropinirole 2 mg tablet 2 mg PO BID 11/09/22 02/01/23 History spironolactone 25 mg tablet 25 mg PO DAILY 11/09/22 02/01/23 History zolpidem 5 mg tablet 5 mg PO QHS PRN 11/09/22 02/01/23 History pantoprazole 40 mg tablet,delayed 40 mg PO BID 12/15/22 02/01/23 History release furosemide 20 mg tablet 40 mg PO BID #60 tabs 12/17/22 02/01/23 Rx carvedilol 3.125 mg tablet 6.25 mg PO BID 01/23/23 02/01/23 History doxepin 10 mg capsule 10 mg PO DAILY 01/23/23 02/01/23 History fluoxetine 40 mg capsule 40 mg PO DAILY 01/23/23 02/01/23 History gabapentin 300 mg capsule 300 mg PO DAILY 01/23/23 02/01/23 History montelukast 10 mg tablet 10 mg PO DAILY 01/23/23 02/01/23 History oxycodone 5 mg tablet 5 mg PO Q6H PRN 01/23/23 02/01/23 History semaglutide 3 mg tablet (Rybelsus) 3 mg PO DAILY 01/23/23 02/01/23 History Exam Narrative Exam Narrative: GEN: Alert and oriented, pleasant and cooperative, gives linear history. No acute distress at rest. HEENT: Head atraumatic. Conjunctiva clear, no icterus. PEERL, EOMI. no rhinorrhea. MMM, OP benign. Neck is supple with no masses or lymphadenopathy, trachea midline LUNGS: CTAB with normal effort CV: RRR with 2/6 systolic murmur audible at both sternal borders, no radiation. no gallops, or rubs. No elevation JPV ABD: +BS, soft, NT/ND EXT: no cyanosis, clubbing, or edema MSK: No joint redness. 1+ pitting edema to the shins bilaterally. Not tender NEURO: CN 2-12 grossly intact. Normal movement of 4 extremities. Normal speech and coordination SKIN: No rashes or open wounds. PSYCH: normal mood and affect Results Labs 02/01/23 21:45 02/01/23 17:25 Labs: Laboratory Results - last 24 hr 02/01/23 02/01/23 02/01/23 17:25 17:25 17:25 WBC 4.67 RBC 2.89 L Hgb 6.8 L* Hct 23.5 L MCV 81 MCH 23.5 L MCHC 28.9 L RDW 17.0 H Plt Count 163 MPV 10.1 Immature Gran % 0.2 Neutrophils % 58.4 Lymphocytes % 20.1 Monocytes % 13.1 Eosinophils % 6.9 Basophils % 1.3 Nucleated RBC % 0.0 Absolute Neutrophils 2.73 Absolute Lymphocytes 0.94 L Absolute Monocytes 0.61 Absolute Eosinophils 0.32 Absolute Basophils 0.06 RBC Morphology See Below Hypochromasia 2+ Sodium 134 L Potassium 3.4 L Chloride 97 L Carbon Dioxide 34.5 H Anion Gap 2.5 L BUN 18 Creatinine 1.1 H Est GFR (CKD-EPI 2020) 55.07 Glucose 446 H Calcium 8.2 L Total Bilirubin 1.2 H AST 25 ALT 16 Alkaline Phosphatase 265 H Total Protein 6.2 L Albumin 2.4 L COVID-19 Source SARS-CoV-2 (PCR) Patient ABO/Rh O Positive Antibody Screen NEGATIVE Crossmatch See Detail 02/01/23 02/01/23 18:37 21:45 WBC RBC Hgb 6.8 L* Hct 22.4 L MCV MCH MCHC RDW Plt Count MPV Immature Gran % Neutrophils % Lymphocytes % Monocytes % Eosinophils % Basophils % Nucleated RBC % Absolute Neutrophils Absolute Lymphocytes Absolute Monocytes Absolute Eosinophils Absolute Basophils RBC Morphology Hypochromasia Sodium Potassium Chloride Carbon Dioxide Anion Gap BUN Creatinine Est GFR (CKD-EPI 2020) Glucose Calcium Total Bilirubin AST ALT Alkaline Phosphatase Total Protein Albumin COVID-19 Source Nasal/Nares SARS-CoV-2 (PCR) Negative Patient ABO/Rh Antibody Screen Crossmatch Last Vital Signs Temp 36.9 C 02/01/23 22:19 Pulse 85 02/01/23 22:19 Resp 20 02/01/23 22:19 BP 147/74 H 02/01/23 22:19 Pulse Ox 98 02/01/23 22:19 Time Spent Time spent with Patient: 55-74 minutes Time was spent: preparing to see the patient(eg.review tests), obtaining and/or reviewing separately otained hiistory, ordering medications,tests, procedures, referring, communicating with other health rn urgent care, indepentently interpreting results and counseling the patient
[2023-02-01 23:47] LABS: HCT 21.2 % (36.0-46.0)
[2023-02-01 23:49] LABS: HGB 6.5 g/dL (11.2-15.7)
[2023-02-02] VITALS (17 sets, daily range): BP systolic 91–135; BP diastolic 46–68; PULSE 66–90; RESP 11–18; TEMP 35–37; O2SAT 94–98
[2023-02-02] MEDS: Acetaminophen 325 MG TAB PO ×2 (04:56→19:53)
[2023-02-02] MEDS: oxyCODONE 5 MG TAB PO ×2 (04:57→11:13)
[2023-02-02 06:51] LABS: HCT 23.2 % (36.0-46.0); HGB 7.1 g/dL (11.2-15.7); MCH 24.5 pg (27.0-33.0); MCHC 30.6 % (32.0-36.0); MCV 80 fL (80-95); MPV 10.9 fL (8.0-11.0); Platelet Count 124 10^3/uL (130-400); RDW 17.2 % (11.7-14.6); RDW-SD 50.4 fL; WBC 5.17 10^3/uL (4.4-10.8)
[2023-02-02 06:57] LABS: INR 1.2 (0.9-1.1); Prothrombin Time 12.3 sec (9.3-11.0)
[2023-02-02 06:58] LABS: Anion Gap 3.3 mmol/L (3-11); BUN 16 mg/dL (7-18); CO2 33.7 mmol/L (21.0-32.0); Calcium 7.9 mg/dL (8.5-10.1); Chloride 100 mmol/L (98-107); Estimated GFR 61.75 (mL/min/1.73m2); Glucose 213 mg/dL (74-106); Magnesium 1.9 mg/dL (1.8-2.4); Potassium 3.2 mmol/L (3.5-5.1); Sodium 137 mmol/L (136-145)
[2023-02-02 07:28] LABS: Iron 139 ug/dL (50-170); Total Iron Binding Capacity 345 ug/dL (250-450); Transferrin Sat 40 % (15-50)
[2023-02-02 07:30] LABS: Hemoglobin A1C 7.9 % (<5.7)
[2023-02-02] MEDS: Pantoprazole 40 MG VIAL IVP ×2 (08:17→20:56)
[2023-02-02] MEDS: Insulin Aspart 300 UNITS/3 ML PEN SC ×3 (08:18→16:59)
[2023-02-02] MEDS: Gabapentin 300 MG CAP PO (08:19)
[2023-02-02] MEDS: Furosemide 20 MG TAB 40 MG PO ×2 (08:19→16:00)
[2023-02-02] MEDS: metFORMIN 500 MG TAB 1000 MG PO ×2 (08:19→17:00)
[2023-02-02] MEDS: Carvedilol 3.125 MG TAB 6.25 MG PO ×2 (08:19→19:53)
[2023-02-02] MEDS: Montelukast 10 MG TAB PO (08:20)
[2023-02-02] MEDS: Spironolactone 25 MG TAB PO (08:20)
[2023-02-02] MEDS: Normal Saline Flush 10 ML SYR IVP ×4 (08:21→20:57)
[2023-02-02] MEDS: Normal Saline 500 ML 100 ML IV (09:48)
[2023-02-02] MEDS: POTASSIUM CHLORIDE 20 MEQ/100 ML BAG 50 MEQ IVPB ×2 (09:48→12:59)
--- NOTE | 2023-02-02 10:52 | INITIAL_ITS ---
- If Service Date Differs Date of service: 02/02/23 Time of Service: 10:52 Care Management Initial Assess REASON FOR HOSPITALIZATION:: Anemia, Hyperglycemia. PAST MEDICAL HISTORY/PAST SURGICAL HISTORY:: All Active Problems: Anemia due to gastrointestinal blood loss (Acute),. Hyperglycemia due to type 2 diabetes mellitus (Acute), No-show for appointment (Acute), Submucosal neoplasm of stomach (Acute), JAYDEN (obstructive sleep apnea) (Chronic), Lung nodule (Acute), Biliary dyskinesia (Acute), Atypical angina (Acute), Acquired arteriovenous malformation (Acute), Fall (Acute), Closed fracture of left clavicle (Acute), and Fracture of radial head, left, closed (Acute). Medical History: Anasarca, Anemia, Anxiety, CHF (congestive heart failure), Chronic low back pain, Cirrhosis, Crohn's disease, Depressive disorder, Dyslipidemia, Lesion of esophagus, Lumbar spondylosis, SALCIDO (nonalcoholic steatohepatitis), Neoplasm of parotid gland, Restless legs, and Type 2 diabetes mellitus. Surgical History: History of hysterectomy, History of sleeve gastrectomy, and History of total knee arthroplasty. PREVIOUS FUNCTIONAL STATUS/SOCIAL/FAMILY SUPPORTS:: Re lives in [place] with her Alexis, son Arslan Granger who is disabled, and brother Denis who has stage IV lung cancer. She is originally from [place] and moved to [place] approximately 3 years ago. 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 Re uses a cane for ambulation. She owns a walker and says when she gets home, she intends on using the walker more frequently to prevent falls. CURRENT FUNCTIONAL STATUS:: Re is sitting in a chair when CM comes to meet with her. She is pleasant and easily engages in conversation, though frequently falls asleep mid-sentence. She talks about her work as an senior gl accountant and says she really enjoyed meeting with her clients. She also shares her [facility] and they are in the process of having their bathroom remodeled. ADVANCE DIRECTIVES:: None on file but patient accepts a form for completion at a later time. Has patient been provided with info about the portal/API?: Yes Did the patient sign up for the portal?: Yes (Previously enrolled.) CODE STATUS:: Full Code INSURANCE COVERAGE / FINANCIAL ISSUES:: [facility] Medicare Replacement. CURRENT HOME/COMMUNITY SERVICES/EQUIPMENT:: Home Health RN, PT and OT, cane, walker, toilet seat riser, and stair lift. PRIMARY CARE PHYSICIAN:: Jefe Coffey ([place]) POTENTIAL DISCHARGE NEEDS:: Follow up appointments with PCP and [facility] providers, resumption of HH RN, PT and OT. PATIENT/FAMILY EDUCATION NEEDS:: Review of discharge instructions including medication and limitations; discuss Ask Me Three. ANTICIPATED BARRIERS TO DISCHARGE:: None identified at this time. TRANSPORTATION:: [facility] [employer] private armored car guard and driver. PLAN:: Re will likely be discharged home with a resumption of HH RN, PT and OT when medically cleared by provider. She will follow up with her PCP, [facility] providers, and plan of care as instructed. She will be transported home via [facility] private armored car guard and driver when ready. CM will continue to follow.
[2023-02-02] MEDS: Acetaminophen 325 MG TAB 650 MG PO (11:13)
[2023-02-02] MEDS: diphenhydrAMINE 25 MG CAP PO (11:13)
--- NOTE | 2023-02-02 13:48 | PGE_ITS ---
Date of Service Date of service: 02/02/23 Time of Service: 13:48 Assessment and Plan Assessment and plan (1) Anemia due to gastrointestinal blood loss: Status: Acute Assessment and plan: h/o gastric vascular ectasia (not varices, but GAVE). Continue IV PPI. Transfusing 3rd unit pRBCs today. If H/H continues to not improve as expected, then would consider transfer [place] [facility] [place] - she is know to [facility], and this would be a high risk endoscopy. (2) Hyperglycemia due to type 2 diabetes mellitus: Status: Acute Assessment and plan: Continue simaglutide + basal bolus insulin. A1C is 7.9, but checked while anemic and maybe inaccurate. (3) JAYDEN (obstructive sleep apnea): Status: Chronic Assessment and plan: Discussed with nursing: The patient should have a CPAP with naps and at HS. We can provide a CPAP for her until her home unit arrives. (4) CHF (congestive heart failure): Assessment and plan: Continue furosemide 40 mg PO BID + spironolactone 25 mg PO daily. Qualifiers: Heart failure type: diastolic Heart failure chronicity: acute on chronic Qualified Code(s): I50.33 - Acute on chronic diastolic (congestive) heart failure (5) Cirrhosis: Assessment and plan: Stable. No known varices. F/u as outpatient. (6) Depressive disorder: Assessment and plan: Continue fluoxetine (7) Closed fracture of left clavicle: Status: Acute Assessment and plan: C/s PT. Sling. Oxycodone prn. (8) DVT prophylaxis: Status: Acute Assessment and plan: Avoid chemical DVT ppx given suspected GI bleeding. Continue TEDs. (9) Discharge planning issues: Status: Acute Assessment and plan: Full code Continues to require hospitalization. Subjective Subjective Interval history since last seen: Ms Meade states she feels groggy. She falls asleep several times during my visit. She did receive oxycodone at 11:13 at about the same time as the benadryl and tylenol as premeds for her blood transfusion (3rd unit). She is supposed to be using a CPAP which is not in the room when I came to see her. Last BM yesterday - dark brown. Denies dizziness, chest pain, shortness of breath. Was nauseated earlier, but not now. No abdominal pain. Exam Narrative Exam Narrative: General: Pleasant obese female who is somnolent, easily arousable, but falls asleep several times during my visit with her HEENT: EOMI, MMM Heart: RRR, + quiet DA Lungs: CTAB Abdomen: soft, nontender, nondistended : has a pichardo Extremities: symmetric edema BLEs, in TEDs Objective Last Vital Signs Temp 36.0 C L 02/02/23 12:48 Pulse 66 02/02/23 12:48 Resp 17 02/02/23 12:48 BP 105/46 L 02/02/23 12:48 Pulse Ox 96 02/02/23 12:48 Laboratory Results - last 24 hr 02/01/23 02/01/23 02/01/23 17:25 17:25 17:25 WBC 4.67 RBC 2.89 L Hgb 6.8 L* Hct 23.5 L MCV 81 MCH 23.5 L MCHC 28.9 L RDW 17.0 H Plt Count 163 MPV 10.1 Immature Gran % 0.2 Neutrophils % 58.4 Lymphocytes % 20.1 Monocytes % 13.1 Eosinophils % 6.9 Basophils % 1.3 Nucleated RBC % 0.0 Absolute Neutrophils 2.73 Absolute Lymphocytes 0.94 L Absolute Monocytes 0.61 Absolute Eosinophils 0.32 Absolute Basophils 0.06 RBC Morphology See Below Hypochromasia 2+ PT INR Sodium 134 L Potassium 3.4 L Chloride 97 L Carbon Dioxide 34.5 H Anion Gap 2.5 L BUN 18 Creatinine 1.1 H Est GFR (CKD-EPI 2020) 55.07 Glucose 446 H Hemoglobin A1c Calcium 8.2 L Magnesium Iron TIBC Transferrin % Sat Total Bilirubin 1.2 H AST 25 ALT 16 Alkaline Phosphatase 265 H Total Protein 6.2 L Albumin 2.4 L COVID-19 Source SARS-CoV-2 (PCR) Patient ABO/Rh O Positive Antibody Screen NEGATIVE Crossmatch See Detail 02/01/23 02/01/23 02/01/23 18:37 21:45 23:30 WBC RBC Hgb 6.8 L* 6.5 L* Hct 22.4 L 21.2 L MCV MCH MCHC RDW Plt Count MPV Immature Gran % Neutrophils % Lymphocytes % Monocytes % Eosinophils % Basophils % Nucleated RBC % Absolute Neutrophils Absolute Lymphocytes Absolute Monocytes Absolute Eosinophils Absolute Basophils RBC Morphology Hypochromasia PT INR Sodium Potassium Chloride Carbon Dioxide Anion Gap BUN Creatinine Est GFR (CKD-EPI 2020) Glucose Hemoglobin A1c Calcium Magnesium Iron TIBC Transferrin % Sat Total Bilirubin AST ALT Alkaline Phosphatase Total Protein Albumin COVID-19 Source Nasal/Nares SARS-CoV-2 (PCR) Negative Patient ABO/Rh Antibody Screen Crossmatch 02/02/23 02/02/23 02/02/23 06:25 06:25 06:25 WBC 5.17 RBC 2.90 L Hgb 7.1 L Hct 23.2 L MCV 80 MCH 24.5 L MCHC 30.6 L RDW 17.2 H Plt Count 124 L MPV 10.9 Immature Gran % Neutrophils % Lymphocytes % Monocytes % Eosinophils % Basophils % Nucleated RBC % Absolute Neutrophils Absolute Lymphocytes Absolute Monocytes Absolute Eosinophils Absolute Basophils RBC Morphology Hypochromasia PT INR Sodium Potassium Chloride Carbon Dioxide Anion Gap BUN Creatinine Est GFR (CKD-EPI 2020) Glucose Hemoglobin A1c 7.9 H Calcium Magnesium Iron 139 TIBC 345 Transferrin % Sat 40 Total Bilirubin AST ALT Alkaline Phosphatase Total Protein Albumin COVID-19 Source SARS-CoV-2 (PCR) Patient ABO/Rh Antibody Screen Crossmatch 02/02/23 02/02/23 06:25 06:25 WBC RBC Hgb Hct MCV MCH MCHC RDW Plt Count MPV Immature Gran % Neutrophils % Lymphocytes % Monocytes % Eosinophils % Basophils % Nucleated RBC % Absolute Neutrophils Absolute Lymphocytes Absolute Monocytes Absolute Eosinophils Absolute Basophils RBC Morphology Hypochromasia PT 12.3 H INR 1.2 H Sodium 137 Potassium 3.2 L Chloride 100 Carbon Dioxide 33.7 H Anion Gap 3.3 BUN 16 Creatinine 1.0 Est GFR (CKD-EPI 2020) 61.75 Glucose 213 H Hemoglobin A1c Calcium 7.9 L Magnesium 1.9 Iron TIBC Transferrin % Sat Total Bilirubin AST ALT Alkaline Phosphatase Total Protein Albumin COVID-19 Source SARS-CoV-2 (PCR) Patient ABO/Rh Antibody Screen Crossmatch Time Spent with Patient Time Spent with Patient: 25-34 minutes Time was spent: preparing to see the patient(eg.review tests), obtaining and/or reviewing separately otained hiistory, ordering medications,tests, procedures, referring, communicating with other health healthcare applications analyst, indepentently interpreting results, counseling the patient and care coordination
[2023-02-02] MEDS: Nystatin POWDER 60 GM JAR TP ×2 (13:56→20:48)
[2023-02-02 16:08] LABS: HCT 27.2 % (36.0-46.0); HGB 8.2 g/dL (11.2-15.7)
[2023-02-02] MEDS: rOPINIRole 0.5 MG TAB 2 MG PO (19:53)
[2023-02-02] MEDS: Insulin Glargine 300 UNITS/3 ML PEN 22 UNITS SC (21:18)
[2023-02-02] MEDS: Zolpidem 5 MG TAB PO (21:19)
[2023-02-02] MEDS: Doxepin 10 MG CAP PO (21:19)
[2023-02-03] VITALS (8 sets, daily range): BP systolic 94–119; BP diastolic 41–66; PULSE 50–82; RESP 16–18; TEMP 34.6–36.7; O2SAT 93–99
--- NOTE | 2023-02-03 | DI.CT_ITS ---
Exam(s) CT HEAD WO EXAM: CT HEAD WO CLINICAL HISTORY: transient neurologic deficit. TECHNIQUE: Imaging Protocol: Axial computed tomography images with coronal and sagittal reformatted images were created and reviewed COMPARISON: No exams were available for comparison FINDINGS: There are no skull fractures. There is no fluid in the visualized paranasal sinuses. Densities are noted in the region of the diminished size right parotid gland. Possibly surgical stap les versus calculi. Correlation with surgical history recommended. Similar findings not seen on the left side. There is no evidence of intracranial hemorrhage, mass effect, or shift of midline structures. There are no extra-axial fluid collections. The ventricles are not enlarged or shifted and there is no blo od within the ventricular system nor within the basal cisterns. There is a mass in the pituitary fossa which measures 1.3 cm craniocaudal by 1 cm BP by 0.9 cm wide. This extends into the suprasellar cistern and is most probably a pituitary adenoma. IMPRESSION: There is a 13 x 10 x 9 millimeter mass in the pituitary fossa extending into the suprasellar cistern, most probably a pituitary adenoma. Dedicated contrast infused MRI recommended with dedicated pituit dickson sequences. First read by [facility] RADIATION DOSE DELIVERED: 780.73mGy.cm Total DLP DATA REPOSITORY: All CT scans at this facility are submitted to the National Radiology Data Registry (NRDR) Dose Index Registry (DIR) with the [employer] (ACR). RADIATION OPTIMIZATION: All CT scans at this facility use at least one of these dose optimization te chniques: automated exposure control; mA and/or kV adjustment per patient size (includes targeted exa ms where dose is matched to clinical indication); or iterative reconstruction.
[2023-02-03 06:34] LABS: Abs Immature Grans 0.01 10^3/uL (0.0-0.06); Absolute Basophil Count 0.06 10^3/uL (0.0-0.2); Absolute Eosinophil Count 0.31 10^3/uL (0.0-0.7); Absolute Lymphocyte Count 0.89 10^3/uL (1.2-3.4); Absolute Monocyte Count 0.45 10^3/uL (0.1-0.8); Absolute Neutrophil Count 1.73 10^3/uL (1.2-6.7); Basophils % 1.7; HCT 27.5 % (36.0-46.0); HGB 8.2 g/dL (11.2-15.7); Immature Grans % 0.3; Lymphocytes % 25.8; MCH 24.3 pg (27.0-33.0); MCHC 29.8 % (32.0-36.0); MCV 81 fL (80-95); MPV 10.1 fL (8.0-11.0); Neutrophils % 50.2; Platelet Count 147 10^3/uL (130-400); RBC 3.38 10^6/uL (3.93-5.22); RDW 17.1 % (11.7-14.6); RDW-SD 50.4 fL; WBC 3.45 10^3/uL (4.4-10.8)
[2023-02-03 07:06] LABS: Anion Gap 6.1 mmol/L (3-11); BUN 15 mg/dL (7-18); CO2 34.9 mmol/L (21.0-32.0); Calcium 8.3 mg/dL (8.5-10.1); Chloride 103 mmol/L (98-107); Estimated GFR 61.75 (mL/min/1.73m2); Glucose 159 mg/dL (74-106); Magnesium 1.9 mg/dL (1.8-2.4); Potassium 3.6 mmol/L (3.5-5.1); Sodium 144 mmol/L (136-145)
[2023-02-03 07:32] LABS: Anisocytosis 1+; Diff Comment RBC Morph Reviewed; Hypochromasia 2+; Polychromasia Present
[2023-02-03] MEDS: Pantoprazole 40 MG VIAL IVP ×2 (09:03→20:07)
[2023-02-03] MEDS: Normal Saline Flush 10 ML SYR IVP ×2 (09:04→20:06)
[2023-02-03] MEDS: Furosemide 20 MG TAB 40 MG PO ×2 (09:05→16:16)
[2023-02-03] MEDS: metFORMIN 500 MG TAB 1000 MG PO ×2 (09:06→16:53)
[2023-02-03] MEDS: Spironolactone 25 MG TAB PO (09:06)
[2023-02-03] MEDS: Gabapentin 300 MG CAP PO (09:06)
[2023-02-03] MEDS: Carvedilol 6.25 MG TAB PO ×2 (09:07→20:07)
[2023-02-03] MEDS: Montelukast 10 MG TAB PO (09:07)
[2023-02-03] MEDS: Insulin Aspart 300 UNITS/3 ML PEN SC ×3 (09:09→16:54)
[2023-02-03] MEDS: Nystatin POWDER 60 GM JAR TP ×3 (09:13→21:29)
[2023-02-03] MEDS: rOPINIRole 0.5 MG TAB 2 MG PO ×2 (09:18→20:07)
--- NOTE | 2023-02-03 10:17 | IN_ITS ---
PT Notes Visit Reasons: Anemia,Hyperglycemia Inpatient Physical Therapy Evaluation Date: February 03, 2023 Referring Doctor: Dr. 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 She states she first saw her PCP a little over a week ago when she noted her legs were more swollen.? Her furosemide was increased and since then she has lost 26lbs of fluid per report.? She was feeling SOB, but this was improving as her leg swelling went down.? She has been feeling low energy, generally weak, and lightheaded, but hasn't passed out or had any chest pain or palpitations.?She states she has chronic anemia due ot watermelon stomach and has had treatment by Dr. García at [facility] via endoscopy in the past. PMHX: PFSH All Active Problems?(Updated 02/01/23 @ 23:31 by Gurpreet Melchor) Discharge planning issues (Acute) DVT prophylaxis (Acute) Anemia due to gastrointestinal blood loss (Acute) Hyperglycemia due to type 2 diabetes mellitus (Acute) No-show for appointment (Acute) Submucosal neoplasm of stomach (Acute) JAYDEN (obstructive sleep apnea) (Chronic) Lung nodule (Acute) Biliary dyskinesia (Acute) Atypical angina (Acute) Acquired arteriovenous malformation (Acute) Fall (Acute) Closed fracture of left clavicle (Acute) Fracture of radial head, left, closed (Acute) Medical History? Anasarca Anemia Anxiety CHF (congestive heart failure) Chronic low back pain Cirrhosis Crohn's disease Depressive disorder Dyslipidemia Lesion of esophagus Lumbar spondylosis SALCIDO (nonalcoholic steatohepatitis) Neoplasm of parotid gland Restless legs Type 2 diabetes mellitus Surgical History? History of hysterectomy History of sleeve gastrectomy History of total knee arthroplasty Social History/Home Situation: Lives with , son, and [id number] (with lung cancer) in a private home with 3 steps to enter with rails.? Patient and family recently moved to [place] from [place], [place]. independent of all aspects of ADLs.? Uses front wheeled walker occasionally at home when pain in both knees gets too much. Equipment Owned/DME: FWW, Subjective: States her left shoulder is mildly sore secondary to her left clavicular fracture sustained a couple weeks ago. Is following up with consultation with orthopedics tomorrow. Denies pain, dizziness, and chest discomfort.? No report of abdominal pain.? Noticed tat her swelling has gone down considerably.? Objective: General Observation:Sitting in recliner. ? Christine catheter in place.? High BMI. Mental Status: Alert and oriented as to person, place, time, and purpose. Able to pay attention, focus, and respond appropriately. Pain: Denies ROM: Right Upper Extremity: ? Shoulder Flexion allows up to 100 degrees. Shoulder abduction allows up to 100 degrees. Elbow flexion WFL. Wrist flexion WFL. Functional opening and closing of hand WFL. Left Upper Extremity:? Glenohumeral joint not tested secondary to clavicular fracture. Elbow flexion and extension within normal limits. Right Lower Extremity: Hip flexion limited to about 100 degrees due to body shape. Hip abduction WFL. Knee flexion WFL. Ankle dorsiflexion to neutral only. Ankle plantarflexion WFL. Left Lower Extremity: Hip flexion limited to about 100 degrees due to body shape. Hip abduction WFL. Knee flexion WFL. Ankle dorsiflexion to neutral only. Ankle plantarflexion WFL. Strength: Right Upper Extremity: Shoulder flexors 3+/5. Shoulder abductors 3+/5. Elbow flexors 4-/5. Elbow extensors 4-/5. Furnace Charger strong. Left Upper Extremity: Glenohumeral joint not tested secondary to fracture. Elbow flexors 4-/5. Elbow extensors 4-/5. Furnace Charger strong. Right Lower Extremity: Hip flexors 3+/5. Hip abductors 4-/5. Knee flexors 4-/5. Knee extensors 4-/5. Ankle dorsiflexors 3-/5. Ankle plantarflexors 4-/5. Left Lower Extremity: Hip flexors 3/5. Hip abductors 4-/5. Knee flexors 4-/5. Knee extensors 4-/5. Ankle dorsiflexors 3-/5. Ankle plantarflexors 4-/5. Bed Mobility/Transfers: Supine to sit with minimal assist from recliner Sit to stand with contact guard assist with FWW Stand to sit with contact guard assist with FWW Bed to reclining chair contact guard assist with FWW Reclining chair to bed contact guard assist with FWW Gait: Patient ambulated chair to bathroom with contact guard assist. Allison decreased. No complaints of pain in left upper extremity. No lightheadedness or dizziness. She was independent with sit to stand with handrail at bathroom on toilet. Following ambulation she was placed back in bed with alarm on. Balance: Static Sitting: Normal Dynamic Sitting: Normal Static Standing: Fair Dynamic Standing: Fair Special Tests: Mobility Limitations Standardized Measure [facility] AM-PAC 6 clicks Basic Mobility Inpatient Short Form: Raw Score: 21? CMS Score: 29% deficit? ? ? Informed Consent/Education:? Patient was instructed in purpose of PT consult and plan of care. Agreeable to proceed with established PT POC to achieve personal goals. Assessment: Patient presents with clinical signs and symptoms consistent with current/admitting diagnoses that have resulted to mobility limitations, gait instability, generalized weakness, and overall ADL decline as demonstrated by the following impairment level findings: 1.? Decreased strength to B UE/LE major muscle groups 2.? Impaired standing balance 3.? Impaired activity tolerance Impairments are contributing to the following functional limitations: 1.? Decline in bed mobility skills 2.? Decline in transfer skills 3.? Difficulty with ambulation without assistive device and physical assistance 4.? Increased completion time for mobility ADL performance 5.? Increased risk for falls 6.? Difficulty with managing steps alone safely Patient is assessed as a 25818 moderate complexity based on the following: History: 67-year-old female with past medical history as indicated above Examination: Demonstrable impairment in strength, balance, and mobility level with underlying impairments and functional limitations as exhibited above as well as deficit score of 29% utilizing the [facility] Mobility Inpatient Short Form Presentation: Evolving Decision Makin moderate complexity Goals: Goals X1 week 1. Supine-Sit independent 2. Sit-Supine independent 3. Sit-Stand independent 4. Stand-Sit independent with FWW 5. Bed-Chair independent with FWW 6. Chair-Bed independent with FWW 7. Independent gait on level surface with use of FWW for at least 300 feet without report of pain nor dyspnea 8. Independent stair negotiation while holding onto B rails for at least 5 steps without report of pain nor dyspnea 9. Independent with home exercise program 10. Good static and dynamic standing balance/tolerance Plan of Care/Treatment Plan: 1-2x/day, 7 days/week x 1 week. Plan of care has been reviewed with the [employer] OFFICER providing the service under Physical Therapy direction. Initiate Physical Therapy intervention for pain management as needed, strengthening, bed mobility, transfers, gait, stairs, balance training, and use of assistive device. DISCHARGE RECOMMENDATIONS: [] ? Home with no services [] [X] ? Home with services.? Home when medically cleared by hospitalist.? Home when medically cleared by hospitalist.? Recommend home health PT services in order to progress mobility level using least restrictive assistive ambulatory device, assess home safety, identify additional equipment needs, and establish a functional maintenance program that will increase ability of patient to remain at home. [] ? Home with outpatient PT. [] ? SNF for continued rehabilitation [] [] ? [facility] [] [] ? SNF versus LTC based on ability to participate and progress [] TREATMENT CODE/TIME: 03745 x 20 minutes,? 78760 x 25 minutes beginning at 9:15 am. Thank you for this referral. Jamal Crocker PT, DPT Disclaimer: This note was created using [employer] voice recognition software. It was reviewed for major content. However, there may be multiple small discrepancies and errors due to the voice recognition aspects of the software.
[2023-02-03 11:42] LABS: Lab Add On Test DONE
[2023-02-03 12:27] LABS: TSH 2.68 uIU/mL (0.36-3.74)
--- NOTE | 2023-02-03 14:52 | NUR.NOTE ---
Nursing Note: Pt. allowed to visit on room 212. Taken by wheelchair by this RN.
--- NOTE | 2023-02-03 17:56 | W.PM.PROGNOT ---
Date of Service Date of service: 02/03/23 Time of Service: 17:56 Assessment and Plan Assessment and plan (1) Transient neurologic deficit: Status: Acute Assessment and plan: Obtain CT head, MRI brain. No asa at this time as here w/ GI bleeding. Neurochecks. Tele. (2) Hypothermia: Status: Acute Assessment and plan: TSH ok. Check UA - ?equivalent of fever in a UTI. Could also be due to opioids. 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 Continue IV PPI. H/H now stable. Advance diet. No emergent need for intervention at this time. (4) Hyperglycemia due to type 2 diabetes mellitus: Status: Acute Assessment and plan: Continue simaglutide + basal bolus insulin. A1C is 7.9, but checked while anemic and maybe inaccurate. (5) JAYDEN (obstructive sleep apnea): Status: Chronic Assessment and plan: Discussed with nursing: The patient should have a CPAP with naps and at HS. CPAP Qhs. (6) CHF (congestive heart failure): Assessment and plan: Continue furosemide 40 mg PO BID + spironolactone 25 mg PO daily. Qualifiers: Heart failure chronicity: acute on chronic Heart failure type: diastolic Qualified Code(s): I50.33 - Acute on chronic diastolic (congestive) heart failure (7) Cirrhosis: Assessment and plan: Stable. No known varices. F/u as outpatient. (8) Depressive disorder: Assessment and plan: Continue fluoxetine (9) Closed fracture of left clavicle: Status: Acute Assessment and plan: C/s PT. Sling. Oxycodone prn. (10) DVT prophylaxis: Status: Acute Assessment and plan: Avoid chemical DVT ppx given suspected GI bleeding. Continue TEDs. (11) Discharge planning issues: Status: Acute Assessment and plan: Full code Continues to require hospitalization. Subjective Subjective Interval history since last seen: Ms Meade reports having a transient episode of double vision this morning that she had not reported to anyone. It resolved on its own after about an hour. She also reports having difficulty with controlling her R hand and fine motor tasks every morning (long standing issue) which gets better throughout the day. She denies having a headache. She has been feeling cold and off all day, especially after meals. She was hypothermic this morning and required a mirza hugger. Denies dizziness, chest pain, shortness of breath, nausea. No bleeding reported. Exam Narrative Exam Narrative: General: Pleasant obese female who is awake, A&Ox3 HEENT: EOMI, MMM, no focal neurologic deficits Heart: RRR, + quiet DA Lungs: CTAB Abdomen: soft, nontender, nondistended : has a pichardo - urine light orange Extremities: symmetric edema BLEs, in TEDs Objective Last Vital Signs Temp 36.6 C 02/03/23 15:13 Pulse 75 02/03/23 15:13 Resp 16 02/03/23 15:13 BP 115/65 02/03/23 15:13 Pulse Ox 96 02/03/23 15:13 Laboratory Results - last 24 hr 02/03/23 02/03/23 02/03/23 06:17 06:17 06:17 WBC 3.45 L RBC 3.38 L Hgb 8.2 L Hct 27.5 L MCV 81 MCH 24.3 L MCHC 29.8 L RDW 17.1 H Plt Count 147 MPV 10.1 Immature Gran % 0.3 Neutrophils % 50.2 Lymphocytes % 25.8 Monocytes % 13.0 Eosinophils % 9.0 Basophils % 1.7 Nucleated RBC % 0.0 Absolute Neutrophils 1.73 Absolute Lymphocytes 0.89 L Absolute Monocytes 0.45 Absolute Eosinophils 0.31 Absolute Basophils 0.06 RBC Morphology See Below Polychromasia Present Hypochromasia 2+ Anisocytosis 1+ Sodium 144 Potassium 3.6 Chloride 103 Carbon Dioxide 34.9 H Anion Gap 6.1 BUN 15 Creatinine 1.0 Est GFR (CKD-EPI 2020) 61.75 Glucose 159 H Calcium 8.3 L Magnesium 1.9 TSH Add-On Test Request DONE 02/03/23 06:17 WBC RBC Hgb Hct MCV MCH MCHC RDW Plt Count MPV Immature Gran % Neutrophils % Lymphocytes % Monocytes % Eosinophils % Basophils % Nucleated RBC % Absolute Neutrophils Absolute Lymphocytes Absolute Monocytes Absolute Eosinophils Absolute Basophils RBC Morphology Polychromasia Hypochromasia Anisocytosis Sodium Potassium Chloride Carbon Dioxide Anion Gap BUN Creatinine Est GFR (CKD-EPI 2020) Glucose Calcium Magnesium TSH 2.68 Add-On Test Request Time Spent with Patient Time Spent with Patient: 35-49 minutes Time was spent: preparing to see the patient(eg.review tests), obtaining and/or reviewing separately otained hiistory, ordering medications,tests, procedures, referring, communicating with other health adult care manager, indepentently interpreting results, counseling the patient and care coordination
--- NOTE | 2023-02-03 18:35 | DI.VRAD_ITS ---
PROCEDURE INFORMATION: Exam: CT Head Without Contrast Exam date and time: 02/03/2023 6:24 PM Age: 67 years old Clinical indication: Other: Transient neurologic deficit TECHNIQUE: Imaging protocol: Computed tomography of the head without contrast. COMPARISON: No relevant prior studies available. FINDINGS: Brain: Normal. No hemorrhage. Unremarkable white matter. No mass effect. Cerebral ventricles: No ventriculomegaly. Paranasal sinuses: Visualized sinuses are unremarkable. No fluid levels. Mastoid air cells: Visualized mastoid air cells are well aerated. Bones/joints: Unremarkable. No acute fracture. Soft tissues: There is evidence of prior right parotidectomy IMPRESSION: No acute intracranial abnormality. Dictated and Authenticated by: Carlos Rubio MD. Ordering:MARIAJOSE Powell MD
[2023-02-03 19:42] LABS: Bilirubin Negative (Negative); Blood Large (Negative); Clarity Cloudy (Clear); Glucose Negative (Negative); Ketones Negative (Negative); Leukocyte Esterase Small (Negative); Nitrite Positive (Negative); Specific Gravity 1.015 (1.005-1.025); pH 7.5 (5-8)
[2023-02-03 19:50] LABS: Bacteria Many HPF (Negative); C & S Indicated? C&S Done As Ordered; Casts Negative LPF (Negative); Crystals Negative HPF (Negative); Epithelial Cells Rare HPF (Negative); Mucus Negative (Negative); RBC >50 HPF (0-2)
[2023-02-03] MEDS: Doxepin 10 MG CAP PO (21:28)
[2023-02-03] MEDS: Insulin Glargine 300 UNITS/3 ML PEN 22 UNITS SC (21:29)
[2023-02-03] MEDS: Zolpidem 5 MG TAB PO (23:24)
[2023-02-03] MEDS: Acetaminophen 325 MG TAB PO (23:24)
[2023-02-04] VITALS (10 sets, daily range): BP systolic 108–131; BP diastolic 56–68; PULSE 71–79; RESP 16–18; TEMP 35.6–36.8; O2SAT 94–98
--- NOTE | 2023-02-04 | DI.MRI_ITS ---
Exam(s) MR BRAIN PITUITARY WO/W EXAM: MR BRAIN PITUITARY WO/W CLINICAL HISTORY: visual changes, pituitary mass TECHNIQUE: Multiplanar multisequence MRI of the brain was performed. Both noninfused and contrast i nfused sequences were performed. IV Contrast injected was cc Dotarem. COMPARISON: No exams were available for comparison FINDINGS: PITUITARY GLAND: There is a heterogeneous mass in the pituitary fossa correspond to what is seen on t he recent CT scan, this mass projecting up the suprasellar cistern and contacting optic chiasm. Mass measures 13 millimeters cephalocaudal by 10 millimeters AP x 9 millimeters wide. Enhances inferiorl y and with more cystic component above this level without enhancement, this aspect measuring 9 millim eter craniocaudal by 8 millimeter AP by 8 millimeter wide. Does not appear to invade the cavernous s inuses. There is no extension through the floor of the sella turcica into the sphenoid sinus. CEREBRAL PARENCHYMA: The remainder of the brain exhibits no significant focal findings. No hemorrhag e. No ventriculomegaly. There are no ring enhancing lesions in the brain. No aneurysms evident. N o abnormal meningeal enhancement. No evidence of territorial infarction. There is no abnormal signal abnormality in the periventricular white matter. DWI: No areas of restricted diffusion to suggest acute ischemic event. SWI: No microhemorrhages evident. FLOW VOIDS: The expected flow void are noted. No evidence of obvious aneurysm nor obvious vascular ma lformation. PARANASAL SINUSES: The visualized paranasal sinuses appear unremarkable. ORBITS: No obvious abnormal findings. IMPRESSION: 1. Pituitary mass with measurements as above extending up to the suprasellar cistern to reach the opt ic chiasm. 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 2. No ring enhancing lesions in the brain. No abnormal meningeal enhancement. DATA REPOSITORY:
[2023-02-04 06:30] LABS: Abs Immature Grans 0.01 10^3/uL (0.0-0.06); Absolute Basophil Count 0.08 10^3/uL (0.0-0.2); Absolute Eosinophil Count 0.26 10^3/uL (0.0-0.7); Absolute Monocyte Count 0.54 10^3/uL (0.1-0.8); Absolute Neutrophil Count 3.19 10^3/uL (1.2-6.7); Basophils % 1.5; HCT 26.5 % (36.0-46.0); HGB 7.9 g/dL (11.2-15.7); Immature Grans % 0.2; Lymphocytes % 21.2; MCH 24.2 pg (27.0-33.0); MCHC 29.8 % (32.0-36.0); MCV 81 fL (80-95); Monocytes % 10.4; Neutrophils % 61.7; Platelet Count 151 10^3/uL (130-400); RBC 3.27 10^6/uL (3.93-5.22); RDW 17.2 % (11.7-14.6); RDW-SD 50.3 fL; WBC 5.18 10^3/uL (4.4-10.8)
[2023-02-04 07:22] LABS: BUN 19 mg/dL (7-18); CREATININE 1.1 mg/dL (0.55-1.02); Calcium 8.6 mg/dL (8.5-10.1); Chloride 99 mmol/L (98-107); Estimated GFR 55.07 (mL/min/1.73m2); Glucose 145 mg/dL (74-106); Magnesium 1.8 mg/dL (1.8-2.4); Potassium 3.6 mmol/L (3.5-5.1); Sodium 137 mmol/L (136-145)
--- NOTE | 2023-02-04 08:00 | DI.US_ITS ---
APPROVED REPORT EXAM: Comprehensive 2D, Doppler, and color-flow Echocardiogram Patient Location: In-Patient Room/Bed: 229 Business Continuity Specialist: Brisa Palacio RDCS (AE) Indications: TIA, CHF, Other Information Study Quality: Adequate. Technically limited study due to body habitus, inability to position patient exam done supine. Conclusion Normal left ventricular wall thickness and chamber size. Estimated ejection fraction is 60%. Wall m otion is normal Right ventricle is normal in size and systolic function Both atria are normal in size Aortic valve is trileaflet with trace regurgitation Normal mitral valve with trace to mild regurgitation Normal tricuspid valve with mild regurgitation. Estimated right ventricular systolic pressure is 49 mmHg Wall motion Left Ventricle The left ventricle is normal size. The left ventricular systolic function is normal. The left ventric ular ejection fraction is within the normal range. There is normal left ventricular wall thickness. T here is normal LV segmental wall motion. There is no ventricular septal defect visualized. LVEF is 60 %. Right Ventricle The right ventricle is normal size. The right ventricular systolic function is normal. The RVSP is 49 .2 mmHg. Atria The left atrium size is normal. The right atrium size is normal. The interatrial septum is intact wit h no evidence for an atrial septal defect. Aortic Valve The aortic valve is normal in structure. Aortic valve is trileaflet. There is no aortic valvular sten osis. Trace aortic regurgitation. Mitral Valve The mitral valve is normal in structure. No evidence of mitral valve stenosis. Trace to mild mitral r egurgitation. Tricuspid Valve The tricuspid valve is normal in structure. There is no tricuspid valve stenosis. Mild tricuspid regu rgitation. Pulmonic Valve The pulmonary valve is normal in structure. There is no pulmonic valvular stenosis. There is no pulmo belen valvular regurgitation. Great Vessels The aortic root is normal in size. The ascending aorta is normal in size. Aortic arch is normal in ca liber. The IVC collapses <50% with inspiration. Pericardium There is no pericardial effusion. 2D Dimensions IVSD d PLAX 0.79 cm F: 0.6-1.0 LV Vol A2C d MOD 199.1 mL LVPW d PLAX 0.83 cm F: 0.6 - 1.0 LV Vol A4C d MOD 159.4 mL LVID d PLAX 5.34 cm F: 3.8 - 5.2 LA vol/ BSA A4C s A-L 26.3 mL/m2 LVDs 3.50 cm F: 2.2 - 3.5 LA Area A4C s MOD 20.05 cm2 Ao Root d 2.75 cm F: 2.7 - 3.3 LV EF A4C MOD 60.1 % RA Area A4C 14.00 cm2 LV EF A2C MOD 58.5 % RA Vol/ BSA A4C s A-L 16.5 mL/m2 LV EF Biplane MOD 60.4 % Ao Asc Diam d 3.11 cm F: 2.3 - 3.1 SV 113.14 mL LV EF Teichholz 61.9 % SV Index 53.93 mL/m2 LVEF (Irwin's) 60.35 % F: 54 - 74 LV Volume 138.41 mL F: 46 - 106 LV Volume Index 65.90 mL/m2 F: 29 - 61 LV Vol Biplane MOD 187.5 mL FS 33.55 % M-Mode TAPSE 2.85 cm (M/F) >1.7 LV Diastology MV E' medial 0.116 (>0.07 m/s) E/A Ratio 1.6 LV E/e MED 11.10 (<14) MV E Vmax 1.29 (0.4-1.3 m/s) MV E' lateral 0.124 (>0.1 m/s) MV A Vmax 0.80 (0.4-1.3 m/s) LV E/e LAT 10.35 (<14) MV E/A Ratio 1.58 MV E/E' medial 11.13 MV E/E' lateral 10.39 Aortic Valve LVOT Area 3.02 cm2 AoV Area Vmax 1.65 cm2 LVOT Vmax 1.11 m/s AoV Area/ BSA (Vmax) 0.79 cm2/m2 LVOT Mean Saud. 0.75 m/s DIYA Mean Saud. 1.60 cm2 LVOT Peak Grad 5.0 mmHg DIYA Mean Saud. Index 0.76 cm2/m2 LVOT Mean Grad 2.6 mmHg LVOT VTI 0.270 m LVOT Diam s 1.95 cm AoV Vmax 2.03 m/s Velocity Ratio 0.55 AoV Mean Saud. 1.42 m/s AoV Peak Grad 16.5 mmHg LVOT SV 81.51 mL AoV Mean Grad 9.1 mmHg AoV VTI 0.434 m AoV Area VTI 1.88 cm2 AoV Area/ BSA (VTI) 0.90 cm/m2 Mitral Valve MV DT 229 (160-240 msec) MV PHT 66 msec MV Area PHT 3.31 cm2 MV VTI 0.488 m MV Area VTI 1.67 (4.0-6.0 cm2) Pulmonary Valve PV Vmax 1.51 (0.5-1.5 m/s) RVOT Peak Gr. 3.75 mmHg PV Peak Grad 9.1 mmHg RVOT Mean Gr. 2.00 mmHg PV Mean Grad 5.8 mmHg RVOT VTI 0.199 m PV VTI 0.383 m RVOT Vmax 0.97 m/s Tricuspid Valve TR Peak Grad 41.2 mmHg TR Vmax 3.21 m/s RA Pressure 8.00 mmHg RVSP (TR) 49.2 mmHg
[2023-02-04] MEDS: Gadoterate meglumine 20 ML SYRINGE IVP (09:45)
[2023-02-04] MEDS: Normal Saline Flush 10 ML SYR IVP ×2 (09:45→20:13)
[2023-02-04] MEDS: Spironolactone 25 MG TAB PO (10:30)
[2023-02-04] MEDS: rOPINIRole 0.5 MG TAB 2 MG PO ×2 (10:31→20:12)
[2023-02-04] MEDS: metFORMIN 500 MG TAB 1000 MG PO ×2 (10:32→16:52)
[2023-02-04] MEDS: Furosemide 20 MG TAB 40 MG PO ×2 (10:32→16:52)
[2023-02-04] MEDS: Gabapentin 300 MG CAP PO (10:34)
[2023-02-04] MEDS: Montelukast 10 MG TAB PO (10:35)
[2023-02-04] MEDS: Carvedilol 6.25 MG TAB PO ×2 (10:35→20:12)
[2023-02-04] MEDS: Nystatin POWDER 60 GM JAR TP ×2 (10:38→15:38)
[2023-02-04] MEDS: Fosfomycin Tromethamine 3 GM PACKET PO (10:50)
[2023-02-04] MEDS: Pantoprazole 40 MG VIAL IVP ×2 (10:58→20:23)
[2023-02-04] MEDS: Insulin Aspart 300 UNITS/3 ML PEN SC ×2 (12:06→16:53)
--- NOTE | 2023-02-04 12:09 | W.INDIABCONS ---
Date of service: 02/04/23 Time of Service: 12:09 Diabetes Inpatient Consult Reason for Visit: dm2 DESCRIPTION/ASSESSMENT: Eli admitted over weekend with chronic blood loss secondary to gastric antral vascular ectasia. PMH: obesity, Dm2, JAYDEN, CHF. Most recent A1C(02/02/23): 7.9% indicates good glycemic control on current Dm meds (1000 mg metformin BID, rebylsus 3 mg qd). Following diabetic diet with good intake. No considered at nutritional risk. Dm education not warranted at this time. Time Spent in Nutritional Counseling and Treatment: 0
--- NOTE | 2023-02-04 14:52 | PT.INTREAT ---
Date of service: 02/04/23 Time of Service: 13:10 PT Notes Visit Reasons: Anemia,Hyperglycemia Inpatient Physical Therapy Treatment Note [facility] Date: 02/04/2023 SUBJECTIVE: Eli is pleasant and agreeable to participating in PT. She states that she is feeling cold today. She reports that she helps take care of her as well as her brother who is sick with terminal lung CA. OBJECTIVE: Pain: No c/o pain BED MOBILITY/TRANSFERS Sit-supine: I with HOB flat Sit-stand: SBA Stand-sit: SBA GAIT Assistive Device: FWW Weight bearing: Full Assist: SBA Distance: 30' Deviation: Gait unremarkable THEREX: Patient was instructed in a LE strengthening and stabilization program, completed in a supine position, to include: ankle pumps, quad sets, glute sets, heel slides and hip abduction. ASSESSMENT: Patient tolerated session well, without complaint. Session was limited today due to patient needing to be placed under Michelle Hugger to elevate her temperature. PLAN: Continue with global strengthening and general conditioning for improved activity tolerance. TREATMENT CODE/TIME: 15 minutes; 53544 (13:10)
--- NOTE | 2023-02-04 14:57 | PDOC.CMPRO ---
- If Service Date Differs Date of service: 02/04/23 Time of Service: 14:57 Care Management Progress Note S/O: Eli was lying in bed under a mirza hugger, she reported feeling it was helping her to warm up. Her , Alexis was sitting in a W/C at her bedside. The couple reviewed current living arrangements and challenges. Eli shared that currently, her brother requires support with almost all ADLs and has VNA/Hospice supports coming into the home as well. She reports currently, Alexis is pretty independent but she needs to change his bed due to back issues. They discussed missing their dog, two cats and seven birds and shared worries that the dishes were piling up as it was the only chore their son is unwilling to do. When asked if they felt they would be safe to return home, they both responded positively that they could be safe and successful. A: 67 year old female admitted to [facility] P: Re will likely be discharged home with a resumption of RN, PT and OT when medically cleared by provider. She will follow up with her PCP, [facility] providers, and plan of care as instructed. She will be transported home via [facility] private newspaper delivery driver when ready. CM will continue to follow.
--- NOTE | 2023-02-04 16:09 | NCONE_ITS ---
Date of service: 02/04/23 Time of Service: 16:09 Assessment and Plan Assessment and plan (1) Transient neurologic deficit: Status: Acute (2) Pituitary adenoma: Status: Acute Assessment and plan: #1. Transient binocular diplopia. Does not sound ischemic in origin. May be related to medication effects. No further work-up needed at this time. #2. Pituitary adenoma. I will get her prior records for comparison. Will have her f/up in neurology clinic in 1-2 months at which time we can discuss optometry/ophthalmology referral for formal VF testing as well. History of Present Illness History of Present Illness Chief Complaint: diplopia Narrative: Handedness: right. Ms. Meade is a 67 year-old admitted on 02/01/23 with anemia (Hgb 6.8) secondary to GI bleed. She has gastric antral vascular ectasias, recurrent GI bleeds, DM2, CHF with anasarca, HLD, depression, anxiety, RLS, and SALCIDO. Yesterday on 02/03/23 after waking up, she experienced transient vertical binocular diplopia that was only apparent when looking at the board across the room; and not when looking elsewhere. She had no other associated symptoms - weakness, numbness, speech changes, etc. She recalls something similar after on e of her TKAs remotely. The night prior she received benadryl along with her red blood cell infusion. I am not sure on the amount. She otherwise has a known pituitary adenoma that was being followed by endocrinology in [place] prior to her moving her in 2019 (Dr. Camara? at [facility] in [place]). She reports stable imaging at that time along with stable VF testing. Thinks she may have had updated brain imaging at [facility] since 2019. Has not seen optometry/ophthalmology since moving to [place]. Work-up: -CTH (02/03/23): No acute findings. Pituitary mass noted. I reviewed these images personally and this is my personal interpretation. -MRI brain w/wo (02/04/23): No acute findings. [id number] pituitary mass with a cystic component, and which is contacting the optic chiasm. I reviewed these images personally and this is my personal interpretation. -TTE (02/04/23): EF 60%, no wall motion abnormalities. LA nml. -Labs (02/03/23): Hgb 8.2, TSH 2.68 Review of Systems All systems reviewed & are unremarkable except as noted in HPI and below PFSH All Active Problems (Updated 02/04/23 @ 16:25 by Melanie Lopes MD) Pituitary adenoma (Acute) Hypothermia (Acute) Transient neurologic deficit (Acute) Discharge planning issues (Acute) DVT prophylaxis (Acute) Anemia due to gastrointestinal blood loss (Acute) Hyperglycemia due to type 2 diabetes mellitus (Acute) No-show for appointment (Acute) Submucosal neoplasm of stomach (Acute) JAYDEN (obstructive sleep apnea) (Chronic) Lung nodule (Acute) Biliary dyskinesia (Acute) Atypical angina (Acute) Acquired arteriovenous malformation (Acute) Fall (Acute) Closed fracture of left clavicle (Acute) Fracture of radial head, left, closed (Acute) Medical History Anasarca Anemia Anxiety CHF (congestive heart failure) Chronic low back pain Cirrhosis Crohn's disease Depressive disorder Dyslipidemia Lesion of esophagus Lumbar spondylosis SALCIDO (nonalcoholic steatohepatitis) Neoplasm of parotid gland Restless legs Type 2 diabetes mellitus Surgical History History of hysterectomy History of sleeve gastrectomy History of total knee arthroplasty Family History (Updated 02/01/23 @ 23:22 by Gurpreet Melchor) Brother Cancer Lung Alcohol use disorder 2 older brothers Social History (Updated 02/01/23 @ 23:03 by Gurpreet Melchor) Smoking/Tobacco Use Status: Never Smoking risk assessment performed?: Yes Alcohol Intake: never Drug use: Never Substance use type: does not use Do you feel safe at home: Yes Do you feel safe in your relationship?: Yes Additional Social history: Lives with Arslan, brother, and son in [facility]. Moved from [place] in 2020. Has a dog and 7 pet birds. Visit Medication and Allergies Active Medications Generic Name Dose Route Start Last Admin Trade Name Freq PRN Reason Stop Dose Admin Acetaminophen 325 - 650 mg 02/01/23 20:59 02/03/23 23:24 Acetaminophen 325 Mg Tab PO 650 mg Q4H PRN PRN Administration Carvedilol 6.25 mg 02/03/23 08:30 02/04/23 10:35 Carvedilol 6.25 Mg Tab PO 6.25 mg BID JARETT Administration Dextrose 0 gm 02/01/23 21:04 Glucose Oral Gel 15 Gm/37.5 Gm Tube PO DIRECTED PRN Dextrose/Water 0 gm 02/01/23 21:04 Dextrose 50%-Water 25 Gm/50 Ml Syr IVP DIRECTED PRN Dimethicone/Zinc Oxide 0 gm 02/01/23 20:59 Jones Protect Cream 142 Gm Tube TP PRN PRN Doxepin HCl 10 mg 02/01/23 23:00 02/03/23 21:28 Doxepin 10 Mg Cap PO 10 mg HS JARETT Administration Fluoxetine HCl 40 mg 02/02/23 08:30 Fluoxetine 20 Mg Cap PO DAILY JARETT Furosemide 40 mg 02/02/23 08:30 02/04/23 10:32 Furosemide 20 Mg Tab PO 40 mg BID DIURETIC JARETT Administration Gabapentin 300 mg 02/02/23 08:30 02/04/23 10:34 Gabapentin 300 Mg Cap PO 300 mg DAILY JARETT Administration Gadoterate Meglumine 20 ml 02/04/23 09:45 02/04/23 09:45 Gadoterate Meglumine 20 Ml Syringe IVP 03/06/23 23:59 20 ml DIRECTED JARETT Administration Sodium Chloride 500 mls @ 0 mls/hr 02/01/23 18:20 02/02/23 09:49 Saline 500ml Bag IV 0 mls/hr PRN PRN Infusion As Directed IV Miscellaneous Supplies 1 each 02/01/23 18:30 Iv Access IV DIRECTED [facility] Insulin Aspart 0 - 18 units 02/02/23 08:00 02/04/23 12:06 Insulin Aspart 300 Units/3 Ml Pen SC 4 units 0800,1200,1700 JARETT Administration Protocol Insulin Glargine 22 units 02/01/23 22:00 02/03/23 21:29 Insulin Glargine 300 Units/3 Ml Pen SC 22 units HS JARETT Administration Metformin HCl 1,000 mg 02/02/23 08:00 02/04/23 10:32 Metformin 500 Mg Tab PO 1,000 mg 0800,1700 JARETT Administration Montelukast Sodium 10 mg 02/02/23 08:30 02/04/23 10:35 Montelukast 10 Mg Tab PO 10 mg DAILY JARETT Administration Nystatin 60 gm 02/02/23 14:00 02/04/23 15:38 Nystatin Powder 60 Gm Jar TP 1 applic TID JARETT Administration Oxycodone HCl 5 mg 02/01/23 21:09 02/02/23 11:13 Oxycodone 5 Mg Tab PO 5 mg Q6H PRN PRN Administration Pantoprazole Sodium 40 mg 02/01/23 22:00 02/04/23 10:58 Pantoprazole 40 Mg Vial IVP 40 mg BID JARETT Administration Pt's Own Rebelsus 1 each 02/02/23 08:30 02/04/23 10:57 3mg Tablet ( PO Not Given Semaglutide) DAILY JARETT Ropinirole HCl 2 mg 02/01/23 23:00 02/04/23 10:31 Ropinirole 0.5 Mg Tab PO 2 mg BID JARETT Administration Sodium Chloride 0 ml 02/01/23 18:20 02/03/23 20:06 Normal Saline Flush 10 Ml Syr IVP 30 ml PRN PRN Administration Sodium Chloride 10 ml 02/04/23 09:44 02/04/23 09:45 Normal Saline Flush 10 Ml Syr IVP 10 ml PRN PRN Administration Spironolactone 25 mg 02/02/23 08:30 02/04/23 10:30 Spironolactone 25 Mg Tab PO 25 mg DAILY JARETT Administration Zolpidem Tartrate 5 mg 02/01/23 21:09 02/03/23 23:24 Zolpidem 5 Mg Tab PO 5 mg HS PRN PRN Administration Allergies Penicillins Allergy (Severe, Unverified 02/01/23 16:47) Swelling/Edema tramadol Allergy (Severe, Unverified 02/01/23 16:47) Swelling/Edema apricot Allergy (Intermediate, Unverified 02/01/23 16:47) Hives vancomycin Adverse Reaction (Intermediate, Unverified 02/01/23 16:47) Other (See Comment) Exam Narrative Exam Narrative: Physical Exam: Gen: Patient of apparent stated age, NAD Head and face: no facial or cranial abnormalities Neck: Supple, no meningismus, no occipital tenderness CV: + S1, S2, RRR, + murmur Resp: CTA B/L Abd: soft, nontender, nondistended Ext: LE edema noted. No clubbing or cyanosis. No bony deformity. Neuro Exam: Language: fluency, naming, repetition, and comprehension intact; Mental Status: AAOx3, current events intact, fund of knowledge intact; Speech: no dysarthria Cranial nerves: Funduscopy: not performed CN II: visual bello intact CN III, IV, : extraocular movements intact, no nystagmus, pupils symmetric and reactive to light CN V: face sensation intact to LT and PP CN VII: no facial asymmetry noted CN VIII: hearing intact bilaterally CN IX, X: palate rises symmetrically CN XI: trapezius/SCM 5/5 bilaterally CN XII: protrudes tongue symmetrically Sensory: intact to LT, PP, vibration, and joint position in all extremities Motor: bulk and tone intact. Fine motor movements intact bilaterally. No pronator drift. Strength 4+/5 throughout - limited in LUE due to clavicle fracture. Reflexes: hyporeflexic throughout; toes down going bilaterally; Coordination: FTN and HTS intact bilaterally Gait: not tested Results Last Vital Signs Temp 97.9 F 02/04/23 15:50 Pulse 74 02/04/23 15:50 Resp 16 02/04/23 15:50 BP 120/68 02/04/23 15:50 Pulse Ox 98 02/04/23 15:50 Labs 02/04/23 06:12 02/04/23 06:12 Labs: Laboratory Results - last 24 hr 02/03/23 02/04/23 02/04/23 19:05 06:12 06:12 WBC 5.18 RBC 3.27 L Hgb 7.9 L Hct 26.5 L MCV 81 MCH 24.2 L MCHC 29.8 L RDW 17.2 H Plt Count 151 MPV 10.0 Immature Gran % 0.2 Neutrophils % 61.7 Lymphocytes % 21.2 Monocytes % 10.4 Eosinophils % 5.0 Basophils % 1.5 Nucleated RBC % 0.0 Absolute Neutrophils 3.19 Absolute Lymphocytes 1.10 L Absolute Monocytes 0.54 Absolute Eosinophils 0.26 Absolute Basophils 0.08 Sodium 137 Potassium 3.6 Chloride 99 Carbon Dioxide 33.0 H Anion Gap 5.0 BUN 19 H Creatinine 1.1 H Est GFR (CKD-EPI 2020) 55.07 Glucose 145 H Calcium 8.6 Magnesium 1.8 Urine Color Yellow Urine Clarity Cloudy Urine pH 7.5 Ur Specific [place] 1.015 Urine Protein Negative Urine Ketones Negative Urine Blood Large H Urine Nitrite Positive H Urine Bilirubin Negative Urine Urobilinogen 1.0 H Ur Leukocyte Esterase Small H Urine RBC >50 H Urine WBC 5-10 Ur Epithelial Cells Rare Urine Crystals Negative Urine Bacteria Many Urine Casts Negative Urine Mucus Negative Ur Culture Indicated? C&S Done As Ordered Ur Collection Duration Ur 24 Hour Volume Urine Glucose Negative Ur Free Cortisol 24 Hr Add-On Test Request 02/04/23 02/04/23 14:38 Unknown WBC RBC Hgb Hct MCV MCH MCHC RDW Plt Count MPV Immature Gran % Neutrophils % Lymphocytes % Monocytes % Eosinophils % Basophils % Nucleated RBC % Absolute Neutrophils Absolute Lymphocytes Absolute Monocytes Absolute Eosinophils Absolute Basophils Sodium Potassium Chloride Carbon Dioxide Anion Gap BUN Creatinine Est GFR (CKD-EPI 2020) Glucose Calcium Magnesium Urine Color Urine Clarity Urine pH Ur Specific [place] Urine Protein Urine Ketones Urine Blood Urine Nitrite Urine Bilirubin Urine Urobilinogen Ur Leukocyte Esterase Urine RBC Urine WBC Ur Epithelial Cells Urine Crystals Urine Bacteria Urine Casts Urine Mucus Ur Culture Indicated? Ur Collection Duration Cancelled Ur 24 Hour Volume Cancelled Urine Glucose Ur Free Cortisol 24 Hr Cancelled Add-On Test Request Cancelled
--- NOTE | 2023-02-04 16:21 | PGE_ITS ---
Date of Service Date of service: 02/04/23 Time of Service: 16:22 Assessment and Plan Assessment and plan (1) Transient neurologic deficit: Status: Acute Assessment and plan: Double vision unlikely to be related to the pituitatry mass. No asa at this time as here w/ GI bleeding. Neurology evaluated the patient - she will need a referral to optometry. No CVA on MRI. Can d/c tele. (2) Pituitary adenoma: Status: Chronic Assessment and plan: Chronic and previously followed by endocrinology in [facility]. Dr Lopes will be obtaining those records and following up as outpatient. Endocrine workup not needed. (3) Hypothermia: Status: Acute Assessment and plan: TSH ok. Does have evidence of a UTI. Received fosfomycin. Pichardo to be changed. (4) UTI (urinary tract infection): Status: Acute Assessment and plan: As above Given empiric fosfomycin. Change pichardo. 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 Continue IV PPI. H/H now stable. Diet advanced to soft bland - tolerating. No emergent need for intervention at this time. (6) Hyperglycemia due to type 2 diabetes mellitus: Status: Acute Assessment and plan: Continue simaglutide + basal bolus insulin. A1C is 7.9, but checked while anemic and maybe inaccurate. (7) JAYDEN (obstructive sleep apnea): Status: Chronic Assessment and plan: Discussed with nursing: The patient should have a CPAP with naps and at HS. CPAP Qhs. (8) CHF (congestive heart failure): Assessment and plan: Continue furosemide 40 mg PO BID + spironolactone 25 mg PO daily. Qualifiers: Heart failure type: diastolic Heart failure chronicity: acute on chronic Qualified Code(s): I50.33 - Acute on chronic diastolic (congestive) heart failure (9) Cirrhosis: Assessment and plan: Stable. No known varices. F/u as outpatient. (10) Depressive disorder: Assessment and plan: Continue fluoxetine (11) Closed fracture of left clavicle: Status: Acute Assessment and plan: C/s PT. Sling. Oxycodone prn. (12) DVT prophylaxis: Status: Acute Assessment and plan: Avoid chemical DVT ppx given suspected GI bleeding. Continue TEDs. (13) Discharge planning issues: Status: Acute Assessment and plan: Full code Anticipate discharge home tomorrow. Will need neurology follow up as outpatient. Subjective Subjective Interval history since last seen: Ms Meade feels cold today. Her pichardo had not yet been changed when I saw her. No more visual deficits or headaches. The diagnosis of a pituitary mass is old and known - the patient used to follow up with endocrinology for it in [place]. Denies dizziness, chest pain, shortness of breath, nausea. Heme +. Exam Narrative Exam Narrative: General: Pleasant obese female who is awake, A&Ox3 HEENT: EOMI, MMM, no focal neurologic deficits Heart: RRR, + quiet DA Lungs: CTAB Abdomen: soft, nontender, nondistended : has a pichardo Extremities: symmetric edema BLEs, in TEDs Objective Last Vital Signs Temp 36.6 C 02/04/23 15:50 Pulse 74 02/04/23 15:50 Resp 16 02/04/23 15:50 BP 120/68 02/04/23 15:50 Pulse Ox 98 02/04/23 15:50 Laboratory Results - last 24 hr 02/03/23 02/04/23 02/04/23 19:05 06:12 06:12 WBC 5.18 RBC 3.27 L Hgb 7.9 L Hct 26.5 L MCV 81 MCH 24.2 L MCHC 29.8 L RDW 17.2 H Plt Count 151 MPV 10.0 Immature Gran % 0.2 Neutrophils % 61.7 Lymphocytes % 21.2 Monocytes % 10.4 Eosinophils % 5.0 Basophils % 1.5 Nucleated RBC % 0.0 Absolute Neutrophils 3.19 Absolute Lymphocytes 1.10 L Absolute Monocytes 0.54 Absolute Eosinophils 0.26 Absolute Basophils 0.08 Sodium 137 Potassium 3.6 Chloride 99 Carbon Dioxide 33.0 H Anion Gap 5.0 BUN 19 H Creatinine 1.1 H Est GFR (CKD-EPI 2020) 55.07 Glucose 145 H Calcium 8.6 Magnesium 1.8 Urine Color Yellow Urine Clarity Cloudy Urine pH 7.5 Ur Specific [place] 1.015 Urine Protein Negative Urine Ketones Negative Urine Blood Large H Urine Nitrite Positive H Urine Bilirubin Negative Urine Urobilinogen 1.0 H Ur Leukocyte Esterase Small H Urine RBC >50 H Urine WBC 5-10 Ur Epithelial Cells Rare Urine Crystals Negative Urine Bacteria Many Urine Casts Negative Urine Mucus Negative Ur Culture Indicated? C&S Done As Ordered Ur Collection Duration Ur 24 Hour Volume Urine Glucose Negative Ur Free Cortisol 24 Hr Add-On Test Request 02/04/23 02/04/23 14:38 Unknown WBC RBC Hgb Hct MCV MCH MCHC RDW Plt Count MPV Immature Gran % Neutrophils % Lymphocytes % Monocytes % Eosinophils % Basophils % Nucleated RBC % Absolute Neutrophils Absolute Lymphocytes Absolute Monocytes Absolute Eosinophils Absolute Basophils Sodium Potassium Chloride Carbon Dioxide Anion Gap BUN Creatinine Est GFR (CKD-EPI 2020) Glucose Calcium Magnesium Urine Color Urine Clarity Urine pH Ur Specific [place] Urine Protein Urine Ketones Urine Blood Urine Nitrite Urine Bilirubin Urine Urobilinogen Ur Leukocyte Esterase Urine RBC Urine WBC Ur Epithelial Cells Urine Crystals Urine Bacteria Urine Casts Urine Mucus Ur Culture Indicated? Ur Collection Duration Cancelled Ur 24 Hour Volume Cancelled Urine Glucose Ur Free Cortisol 24 Hr Cancelled Add-On Test Request Cancelled Objective Narrative Objective Narrative: Echo: Normal left ventricular wall thickness and chamber size.? Estimated ejection fraction is 60%.? Wall motion is normal Right ventricle is normal in size and systolic function Both atria are normal in size Aortic valve is trileaflet with trace regurgitation Normal mitral valve with trace to mild regurgitation Normal tricuspid valve with mild regurgitation.? Estimated right ventricular systolic pressure is 49 mmHg MRI brain/pituiatry protocol: 1. Pituitary mass with measurements as above extending up to the suprasellar cistern to reach the optic chiasm. 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 2. No ring enhancing lesions in the brain. No abnormal meningeal enhancement. CT head: There is a 13 x 10 x 9 millimeter mass in the pituitary fossa extending into the suprasellar cistern, most probably a pituitary adenoma.? Dedicated contrast infused MRI recommended with dedicated pituitary sequences.? Time Spent with Patient Time Spent with Patient: 35-49 minutes Time was spent: preparing to see the patient(eg.review tests), obtaining and/or reviewing separately otained hiistory, ordering medications,tests, procedures, referring, communicating with other health home health aide caregiver, indepentently interpreting results, counseling the patient and care coordination
[2023-02-04] MEDS: Doxepin 10 MG CAP PO (22:07)
[2023-02-04] MEDS: Insulin Glargine 300 UNITS/3 ML PEN 22 UNITS SC (22:07)
[2023-02-04] MEDS: Zolpidem 5 MG TAB PO (22:14)
[2023-02-05 07:28] VITALS: BP 121/63; PULSE 73; RESP 17; TEMP 36.3; O2SAT 95
[2023-02-05] MEDS: Furosemide 20 MG TAB 40 MG PO (07:49)
[2023-02-05] MEDS: metFORMIN 500 MG TAB 1000 MG PO (07:49)
[2023-02-05] MEDS: Carvedilol 6.25 MG TAB PO (07:49)
[2023-02-05] MEDS: rOPINIRole 0.5 MG TAB 2 MG PO (07:49)
[2023-02-05] MEDS: Spironolactone 25 MG TAB PO (07:50)
[2023-02-05] MEDS: Pantoprazole 40 MG VIAL IVP (07:50)
[2023-02-05] MEDS: Insulin Aspart 300 UNITS/3 ML PEN SC ×2 (07:55→11:50)
[2023-02-05] MEDS: Nystatin POWDER 60 GM JAR TP (07:56)
--- NOTE | 2023-02-05 08:51 | PDOC.CMPRO ---
- If Service Date Differs Date of service: 02/05/23 Time of Service: 08:51 Care Management Progress Note S/O: Eli was lying in bed under a mirza hugger, she reported feeling it was helping her to warm up. Her , Alexis was sitting in a W/C at her bedside. The couple reviewed current living arrangements and challenges. Eli shared that currently, her brother requires support with almost all ADLs and has VNA/Hospice supports coming into the home as well. She reports currently, Aleixs is pretty independent but she needs to change his bed due to back issues. They discussed missing their dog, two cats and seven birds and shared worries that the dishes were piling up as it was the only chore their son is unwilling to do. When asked if they felt they would be safe to return home, they both responded positively that they could be safe and successful. A: 67 year old female admitted to [facility] P: Re will likely be discharged home with a resumption of RN, PT and OT when medically cleared by provider. She will follow up with her PCP, [facility] providers, and plan of care as instructed. She will be transported home via [facility] private motor bus driver when ready. CM will continue to follow.
[2023-02-05 09:58] LABS: Abs Immature Grans 0.01 10^3/uL (0.0-0.06); Absolute Basophil Count 0.05 10^3/uL (0.0-0.2); Absolute Eosinophil Count 0.23 10^3/uL (0.0-0.7); Absolute Lymphocyte Count 0.97 10^3/uL (1.2-3.4); Absolute Monocyte Count 0.49 10^3/uL (0.1-0.8); Absolute Neutrophil Count 2.55 10^3/uL (1.2-6.7); Basophils % 1.2; Eosinophils % 5.3; HGB 8.6 g/dL (11.2-15.7); Immature Grans % 0.2; Lymphocytes % 22.6; MCH 24.2 pg (27.0-33.0); MCHC 29.7 % (32.0-36.0); MCV 82 fL (80-95); MPV 10.1 fL (8.0-11.0); Monocytes % 11.4; Neutrophils % 59.3; Platelet Count 154 10^3/uL (130-400); RBC 3.55 10^6/uL (3.93-5.22); RDW 17.7 % (11.7-14.6)
[2023-02-05 10:08] LABS: Anion Gap 4.2 mmol/L (3-11); BUN 19 mg/dL (7-18); CO2 31.8 mmol/L (21.0-32.0); Calcium 8.7 mg/dL (8.5-10.1); Chloride 102 mmol/L (98-107); Estimated GFR 61.75 (mL/min/1.73m2); Glucose 207 mg/dL (74-106); Magnesium 1.8 mg/dL (1.8-2.4); Potassium 3.7 mmol/L (3.5-5.1); Sodium 138 mmol/L (136-145)
--- NOTE | 2023-02-05 11:41 | DSE_ITS ---
Date of service: 02/05/23 Time of Service: 11:42 DS: Diagnosis Discharge Diagnosis (1) Anemia due to gastrointestinal blood loss: Status: Acute (2) GAVE (gastric antral vascular ectasia): Status: Acute (3) Transient neurologic deficit: Status: Acute (4) Pituitary adenoma: Status: Chronic (5) Hypothermia: Status: Acute (6) UTI (urinary tract infection): Status: Acute (7) Hyperglycemia due to type 2 diabetes mellitus: Status: Acute (8) JAYDEN (obstructive sleep apnea): Status: Chronic (9) CHF (congestive heart failure): Asessment and Plan: Chronic diastolic, pulmonary hypertension 49 mmHg. (10) Cirrhosis: (11) Depressive disorder: (12) Closed fracture of left clavicle: Status: Acute Discharge Plan Disposition Patient Disposition: Home W/Home Health Services Condition: Improving Discharge Details Reason For Visit: Anemia,Hyperglycemia Admit Date/Time: 02/02/23 11:20 Admit Provider: Gurpreet Melchor Attending Provider: Gurpreet Melchor Primary Care Provider: eJfe Coffey Hospital Course Hospital Course: Ms Meade is a 67 year old female with PMHx of chronic anemia due to recurrent GI bleeding due to GAVE, followed by [facility], as well as h/o NIDDM2, CHF, cirrhosis, who was admitted to [facility] hospitalist service on 02/01/23 with acute on chronic anemia of GI blood loss with a hemoglobin of 6.5, requiring a transfusion of 3 units pRBCs. Her bleeding then clinically resolved. Her hemoglobin is 8.6 on discharge. She did not require GI interventions on this admission. She did develop hypothermia and was diagnosed with a catheter- associated UTI. Hypothermia resolved with treatment of the UTI ( pichardo changed 02/04/23, got a dose of fosfomycin; urine C&S with >100,000 CFU GNR, speciation pending). The patient was hyperglycemic on her presentation here, but was well-controlled at home on her non-insulin based regimen. While she was treated with basal bolus insulin on this admission, she should resume her outpatient regimen of metformin and semaglutide. On 02/03/23, the patient had an hour-long episode of what she described as double vision. She had a CT of the head that did not show any acute strokes but did demonstrate a pituitary mass. This was redemonstrated on the MRI with dimensions of 13 mm x 10 mm by 9 mm contacting optic chiasm. The mass was known previously to the patient and has been previously followed by endocrinology in [place]. The patient was evaluated by Dr Lopes who did not necessarily feel that the patient's symptoms corresponded to the location of the mass. The patient will need to follow up with Dr Lopes as an outpatient. A referral to optometry or ophthalmology will be arranged at that time. The patient is medically stable for discharge home today. The patient should follow up with orthopedics as outpatient for her left clavicular fracture (prior to admission). She needs to have an H/H drawn in 1 week by home health -results to PCP. The patient would benefit from resumption of her home health services with addition of GLOBAL ACCOUNT DIRECTOR to be evaluated for a personal financial advisor. Care for patient as well as completion of her discharge summary today took 60 minutes. Home Meds and New Rx's Prescriptions: New nystatin 100,000 unit/gram Powder 6,000,000 unit topical TID Qty: 60 0RF Rx Instructions: apply to reddened skin folds Continued carvedilol 3.125 mg tablet 6.25 mg PO BID Rx Instructions: must administer with a meal/food doxepin 10 mg capsule 10 mg PO DAILY fluoxetine 40 mg capsule 40 mg PO DAILY gabapentin 300 mg capsule 300 mg PO DAILY montelukast 10 mg tablet 10 mg PO DAILY oxycodone 5 mg tablet 5 mg PO Q6H PRN Rybelsus 3 mg tablet 3 mg PO DAILY metformin 1,000 mg Tablet 1,000 mg PO BID ropinirole 2 mg Tablet 2 mg PO BID spironolactone 25 mg Tablet 25 mg PO DAILY zolpidem 5 mg Tablet 5 mg PO QHS PRN pantoprazole 40 mg Tablet,Delayed Release (Dr/Ec) 40 mg PO BID furosemide 20 mg Tablet 40 mg PO BID Qty: 60 0RF Discharge Instructions Instructions: Gastrointestinal Bleeding (DC), Anemia (DC), Diplopia (DC), Diabetic Hyperglycemia (DC), Urinary Tract Infection in Older Adults (DC) Additional Instructions: Return to the hospital with any fever, bleeding, chest pain, shortness of breath, or any new neurologic deficits. Follow up with your PCP in 1-2 weeks. Follow up with Dr Lopes in the office Care Plan Goals: Home with resumption of home health services and addition of GLOBAL ACCOUNT DIRECTOR. Bloodwork by home health nurse 02/12/23. Referrals: GASTROENTEROLOGY,[facility] [OTHER] - Jefe Coffey [Primary Care Provider] - Melanie Lopes MD [ [facility] STAFF PHYSICIAN] - Activity:: Activity as Tolerated Equipment/Supplies:: No Equipment Needed Diet:: consistent carb heart healthy Discharge Orders Discharge Orders: Discharge Order (Routine); Ordered 02/05/23 Ordered By: Sherry Sommers DS: Summary Time Spent with Patient providing and/or coordinating discharge services: Greater than 30 minutes Status at Discharge Functional status at discharge: uses cane/walker Overall status at discharge: patient is progressing back to baseline Mental Status: mental status grossly normal Speech and Movement: speech and movement normal Mood: congruent mood Affect: normal affect Exam Narrative Exam Narrative: General: Pleasant obese female who is awake, A&Ox3 HEENT: EOMI, MMM, no focal neurologic deficits Heart: RRR, + quiet DA Lungs: CTAB Abdomen: soft, nontender, nondistended : has a pichardo Extremities: symmetric edema BLEs, in TEDs Psych Mental Status: mental status grossly normal Speech and Movement: speech and movement normal Mood: congruent mood Affect: normal affect DS: Data Vitals/I&O Vitals and I&O: Vital Signs Temperature 36.3 C L 02/05/23 07:28 Temperature Source Tympanic 02/05/23 07:28 Pulse 73 02/05/23 07:28 Pulse Rhythm Regular 02/04/23 23:25 Pulse 87 02/01/23 19:40 Respiratory Rate 17 02/05/23 07:28 Respiratory Effort Normal, Non-Labored 02/04/23 23:25 Respiratory Depth Normal 02/04/23 23:25 Respiratory Pattern Normal 02/04/23 23:25 Blood Pressure 121/63 02/05/23 07:28 Blood Pressure Mean 55 02/01/23 19:31 Blood Pressure Position Sitting 02/01/23 16:43 Pulse Oximetry 95 02/05/23 07:28 Oxygen Delivery Method Room Air 02/05/23 07:28 Oxygen Flow Rate 0 02/05/23 07:28 Fraction of Inspired Oxygen (FIO2) 21 02/04/23 13:00 Pain Level 0 02/04/23 23:25 Comment Pt. denies pain at this time. 02/03/23 11:51 Intake & Output 02/04/23 02/04/23 02/05/23 11:59 23:59 11:59 Intake Total 360 / 360 Output Total 550 / 1750 1200 / 1750 1974 Balance -550 / -1390 -840 / -1390 -1974 Weight 118 kg 113.1 kg Intake: Oral 360 / 360 Output: Urine 550 / 1750 1200 / 1750 1974 Other: Urine Color Yellow Pale Yellow Yellow Straw Urine Appearance Clear Clear Clear Stool Occult Blood Positive Positive Negative Stool Size Copious Moderate Moderate Stool Characteristics Soft Soft Soft Hard Brown Data Completed and Pending Completed studies during hospitalization [Text1]: CT head: There is a 13 x 10 x 9 millimeter mass in the pituitary fossa extending into the suprasellar cistern, most probably a pituitary adenoma.? Dedicated contrast infused MRI recommended with dedicated pituitary sequences.? .MRI brain: 1. Pituitary mass with measurements as above extending up to the suprasellar cistern to reach the optic chiasm.? 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 2. No ring enhancing lesions in the brain.? No abnormal meningeal enhancement. ?Echo: Normal left ventricular wall thickness and chamber size.? Estimated ejection fraction is 60%.? Wall motion is normal Right ventricle is normal in size and systolic function Both atria are normal in size Aortic valve is trileaflet with trace regurgitation Normal mitral valve with trace to mild regurgitation Normal tricuspid valve with mild regurgitation.? Estimated right ventricular systolic pressure is 49 mmHg Labs on day of discharge: Labs from last 24 hours 02/05/23 02/05/23 02/04/23 09:40 09:40 Unknown WBC 4.30 L RBC 3.55 L Hgb 8.6 L Hct 29.0 L MCV 82 MCH 24.2 L MCHC 29.7 L RDW 17.7 H Plt Count 154 MPV 10.1 Immature Gran % 0.2 Neutrophils % 59.3 Lymphocytes % 22.6 Monocytes % 11.4 Eosinophils % 5.3 Basophils % 1.2 Nucleated RBC % 0.0 Absolute Neutrophils 2.55 Absolute Lymphocytes 0.97 L Absolute Monocytes 0.49 Absolute Eosinophils 0.23 Absolute Basophils 0.05 Sodium 138 Potassium 3.7 Chloride 102 Carbon Dioxide 31.8 Anion Gap 4.2 BUN 19 H Creatinine 1.0 Est GFR (CKD-EPI 2020) 61.75 Glucose 207 H Calcium 8.7 Magnesium 1.8 Ur Collection Duration Ur 24 Hour Volume Ur Free Cortisol 24 Hr Add-On Test Request Cancelled 02/04/23 14:38 WBC RBC Hgb Hct MCV MCH MCHC RDW Plt Count MPV Immature Gran % Neutrophils % Lymphocytes % Monocytes % Eosinophils % Basophils % Nucleated RBC % Absolute Neutrophils Absolute Lymphocytes Absolute Monocytes Absolute Eosinophils Absolute Basophils Sodium Potassium Chloride Carbon Dioxide Anion Gap BUN Creatinine Est GFR (CKD-EPI 2020) Glucose Calcium Magnesium Ur Collection Duration Cancelled Ur 24 Hour Volume Cancelled Ur Free Cortisol 24 Hr Cancelled Add-On Test Request Preliminary micro results at discharge 02/03/23 19:05 Urine Culture - Preliminary Urine - Cath Pichardo Indwelling Gram Negative Chan PFSH All Active Problems (Updated 02/05/23 @ 11:42 by Sherry Sommers MD) GAVE (gastric antral vascular ectasia) (Acute) UTI (urinary tract infection) (Acute) Pituitary adenoma (Chronic) Hypothermia (Acute) Transient neurologic deficit (Acute) Discharge planning issues (Acute) DVT prophylaxis (Acute) Anemia due to gastrointestinal blood loss (Acute) Hyperglycemia due to type 2 diabetes mellitus (Acute) No-show for appointment (Acute) Submucosal neoplasm of stomach (Acute) JAYDEN (obstructive sleep apnea) (Chronic) Lung nodule (Acute) Biliary dyskinesia (Acute) Atypical angina (Acute) Acquired arteriovenous malformation (Acute) Fall (Acute) Closed fracture of left clavicle (Acute) Fracture of radial head, left, closed (Acute) Medical History Anasarca Anemia Anxiety CHF (congestive heart failure) Chronic low back pain Cirrhosis Crohn's disease Depressive disorder Dyslipidemia Lesion of esophagus Lumbar spondylosis SALCIDO (nonalcoholic steatohepatitis) Neoplasm of parotid gland Restless legs Type 2 diabetes mellitus Surgical History History of hysterectomy History of sleeve gastrectomy History of total knee arthroplasty Family History (Updated 02/01/23 @ 23:22 by Gurpreet Melchor) Brother Cancer Lung Alcohol use disorder 2 older brothers Social History (Updated 02/01/23 @ 23:03 by Gurpreet Melchor) Smoking/Tobacco Use Status: Never Smoking risk assessment performed?: Yes Alcohol Intake: never Drug use: Never Substance use type: does not use Do you feel safe at home: Yes Do you feel safe in your relationship?: Yes Additional Social history: Lives with Arslan, brother, and son in [place]. Moved from [place] in 2020. Has a dog and 7 pet birds. Time Spent with Patient Time Spent with Patient: 45-69 minutes Time was spent: preparing to see the patient(eg.review tests), obtaining and/or reviewing separately otained hiistory, ordering medications,tests, procedures, referring, communicating with other health nurse healthcare manager, indepentently interpreting results, counseling the patient and care coordination
[2023-02-05] MEDS: oxyCODONE 5 MG TAB PO (11:48)
[2023-02-05] MEDS: Acetaminophen 325 MG TAB PO (12:20)
--- NOTE | 2023-02-05 13:57 | CMDISCH_ITS ---
- If Service Date Differs Date of service: 02/05/23 Time of Service: 13:57 LACE Index Scoring Tool - Questions: Length of Stay (in days): 3 Acuity (Admit via E.D.?): Yes Comorbidities: Diabetes w/o Complication, Congestive Heart Failure, Mild Liver/Renal Disease E.D. Visits: 4 - Answers: Total Score: 15 Risk of Readmission: High Risk Care Management Discharge Reason for Hospitalization: Anemia, Hyperglycemia. Discharge Plan: Re will discharge home with a resumption of RN, PT, OT and addition of INTERIOR DESIGN CONSULTANT when medically cleared by provider. She will follow up with her PCP, [facility] providers, and plan of care as instructed. She will be transported home via [facility] private hearse driver when ready. Patient/Family Education Needs: Review discharge instructions, discuss Ask Me Three. Services Needed at Discharge: Home Health Care Services (Resume add INTERIOR DESIGN CONSULTANT ), Transportation ([facility])
--- NOTE | 2023-02-06 16:14 | PT.INDS ---
Date of service: 02/05/23 PT Notes Visit Reasons: Anemia,Hyperglycemia Physical Therapy Inpatient Discharge Summary Date: 02/04/2023 Dates of service: 02/03/2023 through 02/04/2023 This is a clinical summary of care provided for the duration of dates listed above. No charge was made in the completion of this documentation. Referring Doctor: Dr. Sherry Sommers PT Orders: PT CONSULT: Limited ability Precautions:? Standard, fall Patient Profile/Admitting Diagnosis:? 67 year old female with history of cirrhosis and chronic blood loss associated gastric antral vascular ectasia was sent to the emergency room by her primary care physician 02/01/23 after outpatient labs returned with a hemoglobin of around 6.? She states she first saw her PCP a little over a week ago when she noted her legs were more swollen.? Her furosemide was increased and since then she has lost 26lbs of fluid per report.? She was feeling SOB, but this was improving as her leg swelling went down.? She has been feeling low energy, generally weak, and lightheaded, but hasn't passed out or had any chest pain or palpitations.?She states she has chronic anemia due ot watermelon stomach and has had treatment by Dr. García at [facility] via endoscopy in the past. PMHX: PFSH All Active Problems?(Updated 02/01/23 @ 23:31 by Gurpreet Melchor) Discharge planning issues (Acute) DVT prophylaxis (Acute) Anemia due to gastrointestinal blood loss (Acute) Hyperglycemia due to type 2 diabetes mellitus (Acute) No-show for appointment (Acute) Submucosal neoplasm of stomach (Acute) JAYDEN (obstructive sleep apnea) (Chronic) Lung nodule (Acute) Biliary dyskinesia (Acute) Atypical angina (Acute) Acquired arteriovenous malformation (Acute) Fall (Acute) Closed fracture of left clavicle (Acute) Fracture of radial head, left, closed (Acute) Medical History? Anasarca Anemia Anxiety CHF (congestive heart failure) Chronic low back pain Cirrhosis Crohn's disease Depressive disorder Dyslipidemia Lesion of esophagus Lumbar spondylosis SALCIDO (nonalcoholic steatohepatitis) Neoplasm of parotid gland Restless legs Type 2 diabetes mellitus Surgical History? History of hysterectomy History of sleeve gastrectomy History of total knee arthroplasty Social History/Home Situation: Lives with , son, and [id number] (with lung cancer) in a private home with 3 steps to enter with rails.? Patient and family recently moved to [place] from [place], [place]. independent of all aspects of ADLs.? Uses front wheeled walker occasionally at home when pain in both knees gets too much. Equipment Owned/DME: FWW, SPC Subjective: NT. See most recent SHIPPING SERVICES SALES REPRESENTATIVE notes. Objective: General Observation: NT. See most recent SHIPPING SERVICES SALES REPRESENTATIVE notes. Mental Status: NT. See most recent SHIPPING SERVICES SALES REPRESENTATIVE notes. Pain: NT. See most recent SHIPPING SERVICES SALES REPRESENTATIVE notes. ? ROM: Right Upper Extremity: ? Shoulder Flexion allows up to 100 degrees. Shoulder abduction allows up to 100 degrees. Elbow flexion WFL. Wrist flexion WFL. Functional opening and closing of hand WFL. Left Upper Extremity:?? Glenohumeral joint not tested secondary to clavicular fracture.? Elbow flexion and extension within normal limits. Right Lower Extremity: Hip flexion limited to about 100 degrees due to body shape. Hip abduction WFL. Knee flexion WFL. Ankle dorsiflexion to neutral only. Ankle plantarflexion WFL. Left Lower Extremity: Hip flexion limited to about 100 degrees due to body shape. Hip abduction WFL. Knee flexion WFL. Ankle dorsiflexion to neutral only. Ankle plantarflexion WFL. Strength: Right Upper Extremity: Shoulder flexors 3+/5. Shoulder abductors 3+/5. Elbow flexors 4-/5. Elbow extensors 4-/5. Reproduction Production Manager strong. Left Upper Extremity: Glenohumeral joint not tested secondary to fracture.? Elbow flexors 4-/5. Elbow extensors 4-/5. Reproduction Production Manager strong. Right Lower Extremity: Hip flexors 3+/5. Hip abductors 4-/5. Knee flexors 4-/5. Knee extensors 4-/5. Ankle dorsiflexors 3-/5. Ankle plantarflexors 4-/5. Left Lower Extremity: Hip flexors 3/5. Hip abductors 4-/5. Knee flexors 4-/5. Knee extensors 4-/5. Ankle dorsiflexors 3-/5. Ankle plantarflexors 4-/5. BED MOBILITY/TRANSFERS? Sit-supine: I with HOB flat? Sit-stand: SBA? Stand-sit: SBA? GAIT? Assistive Device: FWW? Weight bearing: Full Assist: SBA? Distance: 30'? Deviation: Gait unremarkable ? Balance: Static Sitting: Normal Dynamic Sitting: Normal Static Standing: Fair Dynamic Standing: Fair Special Tests: Mobility Limitations Standardized Measure [facility] AM-PAC 6 clicks Basic Mobility Inpatient Short Form: Raw Score: 21? CMS Score: 29% deficit? ? ? Assessment: Patient presents with clinical signs and symptoms consistent with current/admitting diagnoses that have resulted to mobility limitations, gait instability, generalized weakness, and overall ADL decline as demonstrated by the following impairment level findings: 1.? Decreased strength to B UE/LE major muscle groups 2.? Impaired standing balance 3.? Impaired activity tolerance ? Impairments are contributing to the following functional limitations: 1.? Decline in bed mobility skills 2.? Decline in transfer skills 3.? Difficulty with ambulation without assistive device and physical assistance 4.? Increased completion time for mobility ADL performance 5.? Increased risk for falls 6.? Difficulty with managing steps alone safely Goals: Goals X1 week 1. Supine-Sit independent MET 2. Sit-Supine independent MET 3. Sit-Stand independent NOT MET 4. Stand-Sit independent with FWW NOT MET 5. Bed-Chair independent with FWW NOT MET 6. Chair-Bed independent with FWW NOT MET 7. Independent gait on level surface with use of FWW for at least 300 feet without report of pain nor dyspnea NOT MET 8. Independent stair negotiation while holding onto B rails for at least 5 steps without report of pain nor dyspnea NOT MET 9. Independent with home exercise program NOT MET 10. Good static and dynamic standing balance/tolerance NOT MET DISCHARGE RECOMMENDATIONS: [] ? Home with no services [] [X] ? Home with services.? Home when medically cleared by hospitalist.? Home when medically cleared by hospitalist.? Recommend home health PT services in order to progress mobility level using least restrictive assistive ambulatory device, assess home safety, identify additional equipment needs, and establish a functional maintenance program that will increase ability of patient to remain at home. [] ? Home with outpatient PT. [] ? SNF for continued rehabilitation [] [] ? Private Equity Associate Care [] [] ? SNF versus LTC based on ability to participate and progress [] TREATMENT CODE/TIME: LA Thank you for the opportunity to participate in the care of this patient. Kayla Simpson PT, DPT, CLT [facility] [place], [place]
== END 2023-02-05 13:58 | disposition home health service (06) | DRG 377 ==
LOC: ER 19:07 → MS 19:52
PROVIDERS: Internal Medicine; Admitting Provider Family Medicine; Emergency Provider Emergency Medicine; PCP Family Medicine; Visit Provider Family Medicine
DX: K31.811 Angiodysplasia of stomach and duodenum with bleeding (principal); I50.33 Acute on chronic diastolic (congestive) heart failure; N39.0 Urinary tract infection, site not specified; K50.90 Crohn's disease, unspecified, without complications; D50.0 Iron deficiency anemia secondary to blood loss (chronic); G47.33 Obstructive sleep apnea (adult) (pediatric); E11.65 Type 2 diabetes mellitus with hyperglycemia; K74.60 Unspecified cirrhosis of liver; F32.A Depression, unspecified; T68.XXXA Hypothermia, initial encounter; D35.2 Benign neoplasm of pituitary gland; S42.002D Fracture of unspecified part of left clavicle, subsequent encounter for fracture with routine healing; R91.1 Solitary pulmonary nodule; F41.9 Anxiety disorder, unspecified; G89.29 Other chronic pain; M54.50 Low back pain, unspecified; E78.5 Hyperlipidemia, unspecified; G25.81 Restless legs syndrome; M47.816 Spondylosis without myelopathy or radiculopathy, lumbar region; R29.818 Other symptoms and signs involving the nervous system; H53.2 Diplopia; Z79.84 Long term (current) use of oral hypoglycemic drugs
CPT/HCPCS: 36415; 36416; 36430; 70553; 80048; 80053; 82962; 85027; 86850; 86900; 86901; 86920; 87077; 87635; 93306; 96365; 96366; 96372; 97110; 97162; 99223; 99285; 70450; 81003; 81015; 82530; 83036; 83540; 83550; 83735; 83789; 84443; 85014; 85018; 85025; 85610; 87086; 87186; 94660; 99232; 99233; 99239; J3480; J3490; P9016

== ENCOUNTER → 2023-02-04 11:27 | Outpatient (BNVA) | payer MEDICARE, SELFPAY | PROVIDERS: PCP Family Medicine; Referring Provider Family Medicine; Visit Provider Psychiatry & Neurology Neurology ==

== ENCOUNTER 2023-02-12 14:12 | Outpatient (CLI) | payer MEDICARE, SELFPAY ==
--- NOTE | 2023-02-12 14:00 | DI.RAD_ITS ---
Exam(s) XR CLAVICLE LT EXAM: XR CLAVICLE LT CLINICAL HISTORY: f/u fx. TECHNIQUE: 2D digital imaging was performed. COMPARISON: CR XR CLAVICLE LT from 01/21/2023 FINDINGS: Two views: Again noted is midshaft fracture but there is no further displacement. No callus formation. Widening of the ipsilateral AC joint is again noted from prior surgery. IMPRESSION: There is further displacement at the midshaft left clavicle fracture site. DATA REPOSITORY: RADIATION DOSE DELIVERED:
== END 2023-02-12 14:13 | disposition home or self-care (01) ==
LOC: DIORS 14:13
PROVIDERS: PCP Family Medicine; Referring Provider Family Medicine; Visit Provider Student in an Organized Health Care Education/Training Program
DX: S42.022A Displaced fracture of shaft of left clavicle, initial encounter for closed fracture; W01.10XA Fall on same level from slipping, tripping and stumbling with subsequent striking against unspecified object, initial encounter
CPT/HCPCS: 99213; 73000

== ENCOUNTER 2023-03-19 14:04 | Outpatient (CLI) | payer MEDICARE, SELFPAY ==
--- NOTE | 2023-03-19 13:45 | DI.RAD_ITS ---
Exam(s) XR CLAVICLE LT EXAM: XR CLAVICLE LT CLINICAL HISTORY: F/U FRACTURE TECHNIQUE: 2D digital imaging was performed of the left clavicle. Two images were obtained. AP and axial views were obtained. COMPARISON: CR XR CLAVICLE LT from 02/12/2023 FINDINGS: BONES: There has been no change in alignment of the fracture involving the midshaft of the left clavi wendy. Callus formation has developed about the fracture site. No new fracture is seen. Postsurgical changes are seen again at the acromioclavicular joint. No bony destructive lesion is seen. JOINTS: No dislocation present. SOFT TISSUE: Normal. IMPRESSION: Stable alignment of the left clavicular fracture. DATA REPOSITORY: RADIATION DOSE DELIVERED:
== END 2023-03-19 14:05 | disposition home or self-care (01) ==
LOC: DIORS 14:04
PROVIDERS: PCP Family Medicine; Referring Provider Family Medicine; Visit Provider Student in an Organized Health Care Education/Training Program
DX: S42.022D Displaced fracture of shaft of left clavicle, subsequent encounter for fracture with routine healing (principal); X58.XXXD Exposure to other specified factors, subsequent encounter
CPT/HCPCS: 99213; 73000

== ENCOUNTER → 2023-03-27 08:40 | Outpatient (BNVA) | payer MEDICARE, SELFPAY | PROVIDERS: PCP Family Medicine; Referring Provider Family Medicine; Visit Provider Psychiatry & Neurology Neurology | DX: G47.10 Hypersomnia, unspecified (principal); R29.818 Other symptoms and signs involving the nervous system; H53.2 Diplopia | CPT/HCPCS: 99214 ==

== ENCOUNTER 2023-05-18 18:38 | Emergency (ER) | payer MEDICARE, SELFPAY ==
[2023-05-18] VITALS (27 sets, daily range): BP systolic 97–129; BP diastolic 35–62; PULSE 61–102; RESP 12–36; TEMP 36.7; O2SAT 95
--- NOTE | 2023-05-18 19:13 | ED.GENADUL_ITS ---
Discharge Plan Disposition Patient Disposition: Home Condition: Stable Discharge Details Clinical Impression: Anasarca Primary Care Provider: Jefe Coffey ED Provider: Arslan Santana Meds and New Rx's Prescriptions: New torsemide 20 mg tablet 40 mg PO DAILY Qty: 30 0RF Continued ondansetron 4 mg tablet,disintegrating 4 mg PO Q8H doxepin 10 mg capsule 10 mg PO QHS carvedilol 3.125 mg tablet 6.25 mg PO BID Rx Instructions: must administer with a meal/food oxycodone 5 mg tablet 5 mg PO Q6H PRN metformin 1,000 mg Tablet 1,000 mg PO BID ropinirole 2 mg Tablet 2 mg PO BID zolpidem 5 mg Tablet 5 mg PO QHS PRN spironolactone 25 mg tablet 100 mg PO DAILY nystatin 100,000 unit/gram Powder 6,000,000 unit topical TID Qty: 60 0RF Rx Instructions: apply to reddened skin folds fluoxetine 40 mg capsule 40 mg PO DAILY Patient Comments: TAKE 1 CAPSULE BY MOUTH ONCE DAILY pantoprazole 40 mg Tablet,Delayed Release (Dr/Ec) 40 mg PO BID Discontinued furosemide 20 mg tablet 40 mg PO DAILY fluoxetine 40 mg capsule 40 mg PO DAILY Discharge Instructions Additional Instructions: You were seen in the ED with some shortness of breath with exertion and edema/weight gain. Your EKG and chest x-ray are reassuring. Your hemoglobin is okay at 8. Your renal functions are little off but not markedly so. I have represcribed the torsemide that you had been on. You should discontinue the furosemide for the time being. You should follow-up with your primary care physician this week. Return to ED for any increasing shortness of breath, confusion, chest pain, abdominal pain, confusion, other concerns. Medical Decision Making Patient presenting to ED with history of anemia related to GI bleed, anasarca and fluid retention related to cirrhosis and dyspnea on exertion of probable multiple etiologies. She reports that her dry weight is typically around 230 pounds. She reports being almost 260 pounds this week. She did receive a unit of blood on Saturday but refused admission at [facility]. Presents now feeling worse. Her lungs are clear to exam. Her abdomen is somewhat firm and distended but nontender. She has pretty significant edema of both legs. IV established and laboratory studies sent. EKG and chest x-ray ordered. Carson villavicencio. Patient's EKG is sinus rhythm nonspecific ST changes and unchanged from previous. Chest x-ray per my read with cardiomegaly no definitive infiltrate or edema. Laboratory studies with a hemoglobin of 8 which is reasonable for this patient. Her kidney functions are little bit up from baseline at 26 and 1.6. Electrolytes are decent. Troponin is negative. In discussion with the patient she is supposed to be taking torsemide not furosemide but ran out of the torsemide few days ago. She did receive IV furosemide here. She has begun to diurese. Again, suspect weight gain and edema related to her liver function and not congestive heart failure. She reports that she typically diuresis at home and would prefer to be home because of her brother being sick. Will restart her torsemide at 40 mg twice a day. Discontinue her furosemide. Follow-up with primary care this week. Return precautions provided. Medical Records Medical records reviewed: Yes I reviewed the patient's medical records. Medical records narrative: admitted in February for similar Lab Data Lab results reviewed: Yes I reviewed the patient's lab results. ECG Data Attestation: I personally reviewed and interpreted this ECG (s) as follows: Prior ECG tracings: available for review Interpretation: see EKG HPI General Mode of arrival: wheelchair . Date/Time Provider Initiated Documentation: 05/18/23 19:13 . Limitations to Documentation: no limitations . Information obtained by: patient . HPI Narrative: Patient presents to ED with complaint of fatigue, shortness of breath with exertion, decreased urine output, increased weight gain and edema despite taking her medications. Patient reports being seen at [facility] on Saturday and received 1 unit of packed red cells for anemia. 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 Since being home she has had no black or bloody stool. She has had 2 episodes of yellowish-green diarrhea today. She has had no vomiting. She denies abdominal pain. She has a Christine catheter that was placed on Saturday at [facility] but it is not clear why. She reports that she retains fluids due to her cirrhosis not necessarily because of congestive heart failure. She denies fever or cough. She called primary care and was referred to ED for evaluation as she feels that she is getting worse. Related Data Home Medications Medication Instructions Recorded Confirmed metformin 1,000 mg tablet 1,000 mg PO BID 11/09/22 05/18/23 ropinirole 2 mg tablet 2 mg PO BID 11/09/22 05/18/23 zolpidem 5 mg tablet 5 mg PO QHS PRN 11/09/22 05/18/23 pantoprazole 40 mg tablet,delayed 40 mg PO BID 12/15/22 05/18/23 release carvedilol 3.125 mg tablet 6.25 mg PO BID 01/23/23 05/18/23 oxycodone 5 mg tablet 5 mg PO Q6H PRN 01/23/23 05/18/23 nystatin 100,000 unit/gram topical 6,000,000 unit topical TID #60 02/05/23 05/18/23 powder grams doxepin 10 mg capsule 10 mg PO QHS 03/27/23 05/18/23 ondansetron 4 mg disintegrating 4 mg PO Q8H 03/27/23 05/18/23 tablet spironolactone 25 mg tablet 100 mg PO DAILY 03/27/23 05/18/23 fluoxetine 40 mg capsule 40 mg PO DAILY 05/18/23 05/18/23 torsemide 20 mg tablet 40 mg PO DAILY #30 tabs 05/18/23 Previous Rx's Medication Instructions Recorded nystatin 100,000 unit/gram topical 6,000,000 unit topical TID #60 02/05/23 powder grams torsemide 20 mg tablet 40 mg PO DAILY #30 tabs 05/18/23 Allergies Allergy/AdvReac Type Severity Reaction Status Date / Time Penicillins Allergy Severe Swelling/Ed Verified 05/18/23 18:47 sophie tramadol Allergy Severe Swelling/Ed Verified 05/18/23 18:47 sophie apricot Allergy Intermediate Hives Verified 05/18/23 18:47 vancomycin AdvReac Intermediate Other (See Verified 05/18/23 18:47 Comment) General Stated Complaint: GenMedical CHELA: 3 Review of Systems Narrative: per HPI PFSH All Active Problems (Updated 05/18/23 @ 21:20 by Arslan Santana MD) Anasarca (Acute) Hypersomnia (Acute) UTI (urinary tract infection) (Acute) Hypothermia (Acute) Transient neurologic deficit (Acute) Anemia due to gastrointestinal blood loss (Acute) Hyperglycemia due to type 2 diabetes mellitus (Acute) No-show for appointment (Acute) Submucosal neoplasm of stomach (Acute) JAYDEN (obstructive sleep apnea) (Chronic) Lung nodule (Acute) Biliary dyskinesia (Acute) Atypical angina (Acute) Acquired arteriovenous malformation (Acute) Medical History Anasarca Anemia Anxiety CHF (congestive heart failure) Chronic low back pain Cirrhosis Crohn's disease Depressive disorder Dyslipidemia GAVE (gastric antral vascular ectasia) Lesion of esophagus Lumbar spondylosis SALCIDO (nonalcoholic steatohepatitis) Neoplasm of parotid gland Pituitary adenoma Restless legs Type 2 diabetes mellitus Surgical History History of hysterectomy History of sleeve gastrectomy History of total knee arthroplasty Family History (Updated 02/01/23 @ 23:22 by Gurpreet Melchor) Brother Cancer Lung Alcohol use disorder 2 older brothers Social History Smoking/Tobacco Use Status: Never Smoking risk assessment performed?: Yes Alcohol Intake: never Drug use: Never Substance use type: does not use Current gender identity: female Do you feel safe at home: Yes Do you feel safe in your relationship?: Yes Additional Social history: Lives with Arslan, brother, and [place] [facility]. Moved from [place] in 2020. Has a dog and 7 pet birds. Exam Narrative Exam Narrative: Const: Obese female in NAD. HEENT: NC/AT. Normal facial exam. Eyes: Normal conjunctiva and sclera. Neck: Supple. Trachea midline. Lungs: Normal respiratory effort. Lungs are clear. Cor: RRR with murmur. Good radial pulses. GI: Slightly firm and distended but NT. Neuro: A+O x 3. Normal speech, mentation. Cranial nerves II - XII grossly intact. No gross motor or sensory deficit. Ext: No C/C. BLE edema. Course Vital Signs Vital signs: Vital Signs Temperature 98.1 F 05/18/23 18:39 Pulse 66 05/18/23 18:39 Respiratory Rate 16 05/18/23 18:39 Blood Pressure 101/58 L 05/18/23 18:39 Pulse Oximetry 95 05/18/23 18:39 Temperature 98.1 F 05/18/23 18:39 Temperature Source Skin 05/18/23 18:39 Pulse 66 05/18/23 18:39 Respiratory Rate 16 05/18/23 18:39 Respiratory Effort Normal 05/18/23 19:01 Respiratory Depth Normal 05/18/23 19:01 Respiratory Pattern Normal 05/18/23 19:01 Blood Pressure 101/58 L 05/18/23 18:39 Blood Pressure Position Sitting 05/18/23 18:39 Pulse Oximetry 95 05/18/23 18:39 Oxygen Delivery Method Room Air 05/18/23 18:39 Oxygen Flow Rate 0 05/18/23 18:39 Pain Level 8 05/18/23 18:39
--- NOTE | 2023-05-18 19:15 | DI.RAD_ITS ---
Exam(s) XR PORTABLE CHEST AP EXAM: XR PORTABLE CHEST AP CLINICAL HISTORY: SOB. TECHNIQUE: 2D digital imaging was performed. COMPARISON: CR XR SHOULDER MIN 2V LT from 01/18/2023 FINDINGS: Single AP portable view. Mild cardiomegaly. Mediastinum not widened. Lungs are clear. No infiltrates. No pleural effusions or pulmonary edema. Resection of the lateral aspect of both clavicles noted. IMPRESSION: No acute pulmonary findings. Mild cardiomegaly noted. No effusions evident. DATA REPOSITORY: RADIATION DOSE DELIVERED:
--- NOTE | 2023-05-18 19:15 | RT.EKG_ITS ---
APPROVED REPORT Exam: Resting ECG Reason for Exam: weakness/SOB Patient Location: E HR:65 bpm ECG Measurements Heart Rate 65 AXIS DC 201 P 88 QRSd 90 QRS 54 QT 447 T 36 QTc 466 Conclusion Sinus rhythm...normal P axis, V-rate 60- 99 Probable left atrial enlargement...P >50mS, <-0.10mV V1 Normal [place] There are no significant changes compared to prior EKG performed on 12/13/2022 at 16:42.
[2023-05-18] MEDS: Furosemide 40 MG/4 ML VIAL IVP (19:40)
[2023-05-18 19:53] LABS: Absolute Basophil Count 0.06 10^3/uL (0.0-0.2); Absolute Eosinophil Count 0.25 10^3/uL (0.0-0.7); Absolute Lymphocyte Count 0.69 10^3/uL (1.2-3.4); Absolute Neutrophil Count 2.66 10^3/uL (1.2-6.7); Basophils % 1.4; HCT 27.4 % (36.0-46.0); Lymphocytes % 16.6; MCH 23.5 pg (27.0-33.0); MCHC 29.2 % (32.0-36.0); MCV 80 fL (80-95); MPV 10.4 fL (8.0-11.0); Platelet Count 128 10^3/uL (130-400); RBC 3.41 10^6/uL (3.93-5.22); RDW 22.6 % (11.7-14.6); RDW-SD 61.9 fL; WBC 4.16 10^3/uL (4.4-10.8)
[2023-05-18 20:02] LABS: Anisocytosis 2+; Diff Comment RBC Morph Reviewed; Hypochromasia 1+; Polychromasia Present
[2023-05-18 20:10] LABS: ALT 16 U/L (14-59); AST 26 U/L (15-37); Albumin 2.7 g/dL (3.4-5.0); Alkaline Phosphatase 183 U/L (46-116); Anion Gap 3.7 mmol/L (3-11); BUN 26 mg/dL (7-18); Bilirubin, Total 1.2 mg/dL (0.2-1.0); CO2 30.3 mmol/L (21.0-32.0); CREATININE 1.6 mg/dL (0.55-1.02); Calcium 8.4 mg/dL (8.5-10.1); Chloride 101 mmol/L (98-107); Estimated GFR 35.13 (mL/min/1.73m2); Glucose 248 mg/dL (74-106); Magnesium 1.8 mg/dL (1.8-2.4); Potassium 3.9 mmol/L (3.5-5.1); Sodium 135 mmol/L (136-145); Total Protein 5.9 g/dL (6.4-8.2); Troponin I < 50 ng/L (<or=60)
--- NOTE | 2023-05-18 20:11 | DI.VRAD_ITS ---
PROCEDURE INFORMATION: Exam: XR Chest Exam date and time: 05/18/2023 7:53 PM Age: 67 years old Clinical indication: Shortness of breath; Patient HX: SOB TECHNIQUE: Imaging protocol: Radiologic exam of the chest. Views: 1 view. COMPARISON: XR CHEST 1V IN DI DEPT 12/13/2022 5:26 PM FINDINGS: Lungs: Pulmonary vascular congestion redemonstrated. No consolidation. Pleural spaces: Unremarkable. No pleural effusion. No pneumothorax. Heart/Mediastinum: Moderate cardiomegaly. Bones/joints: Unremarkable. IMPRESSION: Moderate cardiomegaly and pulmonary vascular congestion. No overt edema Dictated and Authenticated by: Lars Cast MD. Ordering:JUDITH Mcdaniels MD
== END 2023-05-18 21:44 | disposition home or self-care (01) ==
PROVIDERS: Emergency Provider Emergency Medicine; PCP Family Medicine
DX: R60.1 Generalized edema (principal); R06.02 Shortness of breath; R94.31 Abnormal electrocardiogram [ECG] [EKG]; E11.9 Type 2 diabetes mellitus without complications; Z79.84 Long term (current) use of oral hypoglycemic drugs; Z96.0 Presence of urogenital implants; K74.69 Other cirrhosis of liver; I50.9 Heart failure, unspecified
CPT/HCPCS: 80053; 86850; 86900; 86901; 93005; 96374; 99285; 71045; 83735; 84484; 85025; 93010; 99284; J1940

== ENCOUNTER → 2023-05-22 13:00 | Outpatient (BNVA) | payer MEDICARE, SELFPAY | PROVIDERS: PCP Family Medicine; Visit Provider Student in an Organized Health Care Education/Training Program ==

== ENCOUNTER 2023-05-27 17:49 | Emergency (ER) | payer MEDICARE, SELFPAY ==
[2023-05-27 17:49] VITALS: BP 113/52; PULSE 72; RESP 20; TEMP 36.8; O2SAT 99
--- NOTE | 2023-05-27 18:40 | ED.GENADUL_ITS ---
Discharge Plan Disposition Patient Disposition: Home Condition: Good Discharge Details Clinical Impression: Foot sprain Primary Care Provider: Jefe Coffey ED Provider: Sheba Felix Home Meds and New Rx's Prescriptions: Continued ondansetron 4 mg tablet,disintegrating 4 mg PO Q8H doxepin 10 mg capsule 10 mg PO QHS carvedilol 3.125 mg tablet 6.25 mg PO BID Rx Instructions: must administer with a meal/food oxycodone 5 mg tablet 5 mg PO Q6H PRN metformin 1,000 mg Tablet 1,000 mg PO BID ropinirole 2 mg Tablet 2 mg PO BID zolpidem 5 mg Tablet 5 mg PO QHS PRN spironolactone 25 mg tablet 100 mg PO DAILY nystatin 100,000 unit/gram Powder 6,000,000 unit topical TID Qty: 60 0RF Rx Instructions: apply to reddened skin folds torsemide 20 mg tablet 40 mg PO DAILY Qty: 30 0RF fluoxetine 40 mg capsule 40 mg PO DAILY Patient Comments: TAKE 1 CAPSULE BY MOUTH ONCE DAILY pantoprazole 40 mg Tablet,Delayed Release (Dr/Ec) 40 mg PO BID Discharge Instructions Instructions: Foot Sprain (ED) Additional Instructions: Your imaging is reassuring here today. No evidence of fracture or dislocation. Concern for sprain. Please continue with the postop shoe while the pain persist. Please encourage rest, ice, elevation. Ibuprofen as needed for discomfort. If you develop any fever/chills, increased pain, difficulty with walking or other new/worsening symptom please seek care urgently once again. Referrals: Jefe Coffey [Primary Care Provider] - Discharge Data Discharge Date/Time-TO BE ENTERED AT DEPARTURE: 05/27/23 21:15 Medical Decision Making Patient is a pleasant 67-year-old female brought in via EMS with chief complaint of left foot and ankle pain. Patient has significant past medical history for anasarca, Gallagher, type 2 diabetes, JAYDEN, CHF, cirrhosis, Crohn's. She reports a prior to arrival she accidentally slipped in dog urine and suffered a rotational injury to the left ankle and foot where it seemed to go more behind her. She did fall as a result of the unusual positioning of this foot but denies striking her head or loss of conscious. Denies pain elsewhere. Received acetaminophen via EMS prior to arrival On exam, patient appears nontoxic. She does appear chronically ill and does have notable lower extremity edema consistent with her history. She is 2+ distal pulses. No increased swelling on the left side compared to the right. No ecchymosis or discoloration. No palpable deformity. She has pain over both the medial and lateral malleoli, more so on the medial side. She is no pain over the proximal fifth metatarsal. No calcaneal pain. She does have some midfoot discomfort and we will evaluate with x-ray using weighted view for possible Lisfranc. No Achilles tenderness and negative Kang test. No pain over the proximal fibular head or neck. FINDINGS: Bones/joints: Normal. Soft tissues: Normal. IMPRESSION: No acute findings FINDINGS: Bones/joints: Calcaneal spurring. No acute fracture or dislocation Soft tissues: Calcifications vaguely noted in the region of the Achilles tendon Soft tissue swelling noted IMPRESSION: No acute fracture Discussed with patient. Advised likely sprain. Given the areaa of discomfort and movements that increase pain, post op shoe would likely be supportive anad help with pain. Encouraged RICE. Advised f/u with PCP in 2 weeks for reevaaluation. Return precautions discussed. All of her questions and concerns were addressed, she is in agreement with this plan. HPI General Date/Time Provider Initiated Documentation: 05/27/23 18:00 . Limitations to Documentation: no limitations . Information obtained by: patient, EMS and RN notes reviewed . History of Present Illness 67 year old F presents to the emergency department with the chief complaint of left foot and ankle pain, described as moderate, with intensity rated at 4. Quality is described as aching, and is localized to the left and lower extremity. Patient reports no radiation. Patient started experiencing this minute(s) and it has been constant. Immobilization improves symptom(s), Movement worsens symptoms . Patient notes no other symptoms.. Patient did receive the following treatments prior to arrival, other (APAP) Related Data Home Medications Medication Instructions Recorded Confirmed metformin 1,000 mg tablet 1,000 mg PO BID 11/09/22 05/27/23 ropinirole 2 mg tablet 2 mg PO BID 11/09/22 05/27/23 zolpidem 5 mg tablet 5 mg PO QHS PRN 11/09/22 05/27/23 pantoprazole 40 mg tablet,delayed 40 mg PO BID 12/15/22 05/27/23 release carvedilol 3.125 mg tablet 6.25 mg PO BID 01/23/23 05/27/23 oxycodone 5 mg tablet 5 mg PO Q6H PRN 01/23/23 05/27/23 nystatin 100,000 unit/gram topical 6,000,000 unit topical TID #60 02/05/23 05/27/23 powder grams doxepin 10 mg capsule 10 mg PO QHS 03/27/23 05/27/23 ondansetron 4 mg disintegrating 4 mg PO Q8H 03/27/23 05/27/23 tablet spironolactone 25 mg tablet 100 mg PO DAILY 03/27/23 05/27/23 fluoxetine 40 mg capsule 40 mg PO DAILY 05/18/23 05/27/23 torsemide 20 mg tablet 40 mg PO DAILY #30 tabs 05/18/23 05/27/23 Previous Rx's Medication Instructions Recorded nystatin 100,000 unit/gram topical 6,000,000 unit topical TID #60 02/05/23 powder grams torsemide 20 mg tablet 40 mg PO DAILY #30 tabs 05/18/23 Allergies Allergy/AdvReac Type Severity Reaction Status Date / Time Penicillins Allergy Severe Swelling/Ed Verified 05/27/23 17:53 sophie tramadol Allergy Severe Swelling/Ed Verified 05/27/23 17:53 sophie apricot Allergy Intermediate Hives Verified 05/27/23 17:53 vancomycin AdvReac Intermediate Other (See Verified 05/27/23 17:53 Comment) General Stated Complaint: Orthopedic CHELA: 4 Review of Systems Constitutional Constitutional: Reports as per HPI, Denies fever(s), Denies headache(s) and Denies weakness ENT Ears, Nose, Mouth, and Throat: Denies headache(s) Cardiovascular Cardiovascular: Reports as per HPI Musculoskeletal Musculoskeletal: Reports as per HPI and Denies tingling Integumentary/Breasts Skin/Breast: Reports as per HPI, Denies rash and Denies wounds Neurologic Neurologic: Reports as per HPI, Denies headache(s), Denies tingling, Denies paresthesias and Denies weakness PFSH All Active Problems (Updated 05/27/23 @ 20:57 by JAHAIRA Jose) Foot sprain (Acute) Anasarca (Acute) Hypersomnia (Acute) UTI (urinary tract infection) (Acute) Hypothermia (Acute) Transient neurologic deficit (Acute) Anemia due to gastrointestinal blood loss (Acute) Hyperglycemia due to type 2 diabetes mellitus (Acute) No-show for appointment (Acute) Submucosal neoplasm of stomach (Acute) JAYDEN (obstructive sleep apnea) (Chronic) Lung nodule (Acute) Biliary dyskinesia (Acute) Atypical angina (Acute) Acquired arteriovenous malformation (Acute) Medical History Anasarca Anemia Anxiety CHF (congestive heart failure) Chronic low back pain Cirrhosis Crohn's disease Depressive disorder Dyslipidemia GAVE (gastric antral vascular ectasia) Lesion of esophagus Lumbar spondylosis GALLAGHER (nonalcoholic steatohepatitis) Neoplasm of parotid gland Pituitary adenoma Restless legs Type 2 diabetes mellitus Surgical History History of hysterectomy History of sleeve gastrectomy History of total knee arthroplasty Family History (Updated 02/01/23 @ 23:22 by Gurpreet Melchor) Brother Cancer Lung Alcohol use disorder 2 older brothers Social History Smoking/Tobacco Use Status: Never Smoking risk assessment performed?: Yes Alcohol Intake: never Drug use: Never Substance use type: does not use Current gender identity: female Do you feel safe at home: Yes Do you feel safe in your relationship?: Yes Additional Social history: Lives with Arslan, brother, and son in [place]. Moved from [place] in 2019. Has a dog and 7 pet birds. Exam Const General: cooperative, comfortable, no acute distress, well developed, well g roomed and ill appearing chronically Nutritional Appearance: well nourished, overweight and edematous Orientation: alert and awake Resp Effort & Inspection: normal respiratory effort, able to speak in complete sentences and no respiratory distress Cardio Rate: regular rate Rhythm: regular rhythm Skin General skin exam: no rashes or lesions noted Lesions: no lesions Rashes: no rashes Trauma: no lacerations or abrasions Neuro General: patient alert and patient awake Cognition: normal cognition Speech: speech normal Gait: normal gait Motor: muscle tone normal throughout Sensory Exam: no sensory deficits noted Extrem Left lower extremity: full ROM, normal capillary refill, edema (equal to contralateral side), knee Details: normal to inspection and normal ROM; no tenderness and no swelling, lower leg Details: pitting edema; no tenderness, no localized swelling and no palpable cords and ankle Details: tenderness Location: of the lateral malleolus and of the medial malleolus, pitting edema and normal ROM; no warmth, no abrasions, no lacerations, no ecchymosis and no crepitus Psych Appearance: grossly normal and well kempt Mental Status: mental status grossly normal Speech and Movement: speech and movement normal Course Vital Signs Vital signs: Vital Signs Temperature 36.8 C 05/27/23 17:49 Pulse 72 05/27/23 17:49 Respiratory Rate 20 05/27/23 17:49 Blood Pressure 113/52 L 05/27/23 17:49 Pulse Oximetry 99 05/27/23 17:49 Temperature 36.8 C 05/27/23 17:49 Temperature Source Skin 05/27/23 17:49 Pulse 72 05/27/23 17:49 Respiratory Rate 20 05/27/23 17:49 Blood Pressure 113/52 L 05/27/23 17:49 Blood Pressure Position Sitting 05/27/23 17:49 Pulse Oximetry 99 05/27/23 17:49 Oxygen Delivery Method Room Air 05/27/23 17:49 Oxygen Flow Rate 0 05/27/23 17:49 Pain Level 4 05/27/23 17:49
--- NOTE | 2023-05-27 19:58 | DI.RAD_ITS ---
Exam(s) XR FOOT LT COMPLETE EXAM: XR FOOT LT COMPLETE CLINICAL HISTORY: rotational injury, midfoot and ankle pain. TECHNIQUE: 2D digital imaging was performed. COMPARISON: No exams were available for comparison FINDINGS: 3 views There is prominent soft tissue swelling around the ankle and foot but no evidence of fracture no meng tasis of the Lisfranc joint. Hallux valgus noted. Only mild degenerative changes at the great toe m etatarsophalangeal joint. Dorsal exostoses noted in the distal talus. No erosions. No radiopaque f oreign body. IMPRESSION: Soft tissue swelling but no acute fracture evident. DATA REPOSITORY: RADIATION DOSE DELIVERED:
--- NOTE | 2023-05-27 20:03 | DI.RAD_ITS ---
Exam(s) XR ANKLE LT COMPLETE EXAM: XR ANKLE LT COMPLETE CLINICAL HISTORY: rotational injury. TECHNIQUE: 2D digital imaging was performed. COMPARISON: No exams were available for comparison FINDINGS: 3 views There is prominent soft swelling. No evidence Of acute fracture or widening of the ankle mortise. Talar dome unremarkable. There is also calcific ation in the Achilles tendon consistent with chronic tendinitis. Also enthesophyte at the insertiona l aspect Achilles. Also moderate size inferior calcaneal spur. There is an exostosis off the distal dorsal aspect of the talus. IMPRESSION: Soft tissue swelling and osseous findings as above but no acute fracture evident DATA REPOSITORY: RADIATION DOSE DELIVERED:
--- NOTE | 2023-05-27 20:46 | DI.VRAD_ITS ---
PROCEDURE INFORMATION: Exam: XR Left Ankle Exam date and time: 05/27/2023 7:58 PM Age: 67 years old Clinical indication: Injury or trauma; Fall; Other: Rotation TECHNIQUE: Imaging protocol: Radiologic exam of the left ankle. Views: 3 or more views. COMPARISON: CR XR FOOT LT COMPLETE 05/27/2023 7:47 PM FINDINGS: Bones/joints: Degenerative changes and mild calcaneal spurring. No acute fracture or dislocation Soft tissues: Soft tissue swelling IMPRESSION: No acute fracture noted Dictated and Authenticated by: Lars Cast MD. Ordering:LIZBETH Scruggs MD
--- NOTE | 2023-05-27 20:46 | DI.VRAD_ITS ---
PROCEDURE INFORMATION: Exam: XR Left Foot Exam date and time: 05/27/2023 7:47 PM Age: 67 years old Clinical indication: Pain; Foot; Left TECHNIQUE: Imaging protocol: Radiologic exam of the left foot. Views: 3 or more views. COMPARISON: No relevant prior studies available. FINDINGS: Bones/joints: Calcaneal spurring. No acute fracture or dislocation Soft tissues: Calcifications vaguely noted in the region of the Achilles tendon Soft tissue swelling noted IMPRESSION: No acute fracture Dictated and Authenticated by: Lars Cast MD. Ordering:LIZBETH Scruggs MD
[2023-05-27 21:11] VITALS: BP 118/60; PULSE 70; RESP 16; O2SAT 98
== END 2023-05-27 21:15 | disposition home or self-care (01) ==
PROVIDERS: Emergency Provider Physician Assistant; PCP Family Medicine
DX: S93.602A Unspecified sprain of left foot, initial encounter (principal); W01.0XXA Fall on same level from slipping, tripping and stumbling without subsequent striking against object, initial encounter
CPT/HCPCS: 99284; 73610; 73630

== ENCOUNTER → 2023-06-26 11:33 | Outpatient (BNVA) | payer MEDICARE, SELFPAY | PROVIDERS: PCP Family Medicine; Visit Provider Psychiatry & Neurology Neurology | DX: H53.2 Diplopia (principal); R29.818 Other symptoms and signs involving the nervous system; D35.2 Benign neoplasm of pituitary gland; G47.10 Hypersomnia, unspecified; E11.9 Type 2 diabetes mellitus without complications; G47.33 Obstructive sleep apnea (adult) (pediatric) | CPT/HCPCS: 99214 ==

== ENCOUNTER 2023-06-29 17:50 | Inpatient (IN) | payer MEDICARE, SELFPAY ==
[2023-06-29] VITALS (85 sets, daily range): BP systolic 113–147; BP diastolic 37–63; PULSE 65–83; RESP 11–20; TEMP 36.6–36.8; O2SAT 69–100
--- NOTE | 2023-06-29 18:15 | DI.CT_ITS ---
Exam(s) CT HEAD WO EXAM: CT HEAD WO CLINICAL HISTORY: fx falls, weak. TECHNIQUE: Imaging Protocol: Axial computed tomography images with coronal and sagittal reformatted images were created and reviewed COMPARISON: CT CT HEAD WO from 02/03/2023 FINDINGS: Ventricles and Extra axial spaces: Normal in size and morphology for the patient's age. Hemorrhage: None. Cerebral parenchyma: No acute territorial infarct is seen. There is again seen a 1.2 x 0.9 cm sellar mass. Midline shift: None. Brainstem/Cerebellum: Normal. Calvarium: Normal. Visualized Paranasal sinuses/Mastoids: Clear. Soft Tissues: Unremarkable. IMPRESSION: 1. No acute intracranial process. 2. Stable pituitary nodule. RADIATION DOSE DELIVERED: 849.2mGy.cm Total DLP DATA REPOSITORY: All CT scans at this facility are submitted to the National Radiology Data Registry (NRDR) Dose Index Registry (DIR) with the [employer] (ACR). RADIATION OPTIMIZATION: All CT scans at this facility use at least one of these dose optimization te chniques: automated exposure control; mA and/or kV adjustment per patient size (includes targeted exa ms where dose is matched to clinical indication); or iterative reconstruction.
--- NOTE | 2023-06-29 18:15 | RT.EKG_ITS ---
APPROVED REPORT Exam: Resting ECG Reason for Exam: weakness Patient Location: E HR:67 bpm ECG Measurements Heart Rate 67 AXIS RI 184 P 71 QRSd 103 QRS 51 QT 443 T 37 QTc 468 Conclusion Sinus rhythm...normal P axis, V-rate 60- 99 Probable left atrial enlargement...P >50mS, <-0.10mV V1 sinus rhythm, normal axis, normal intervals, non ischemic
--- NOTE | 2023-06-29 18:15 | DI.CT_ITS ---
Exam(s) CT ABDOMEN PELVIS W EXAM: CT ABDOMEN PELVIS W CLINICAL HISTORY: falls, right hip pain TECHNIQUE: Imaging Protocol: Axial computed tomography images with coronal and sagittal reformatted images were created and reviewed CONTRAST MATERIAL: Intravenous: Omnipaque 350 contrast volume:100 mL Oral: No COMPARISON: CT CT ABDOMEN PELVIS W from 12/13/2022 FINDINGS: CHEST: Tracheobronchial tree: Patent where visualized. Pulmonary parenchyma: No consolidation or dominant measurable mass. No architectural distortion. Visualized thyroid gland: Unremarkable. Mediastinum and Grace: No dominant adenopathy or fluid collection. The esophagus is unremarkable. Pleura: No effusion or pneumothorax. Heart: Mild cardiomegaly. No coronary artery calcifications are seen. No pericardial effusion. Pulmonary arteries: Pulmonary arteries are inadequately opacified for evaluation of pulmonary emboli. Aorta: Thoracic aorta non-dilated. Atherosclerosis. Lymph nodes: Within normal limits. Soft tissues: Unremarkable. Bones:Within normal limits for the patient's age. There is an old nonunited left clavicular fracture . ABDOMEN: Liver: There are findings suggestive of hepatic cirrhosis. There is a 2 mm hypodensity in the right lobe of the liver. It is too small for further characterization. There varices in the and pelvis. No measurable mass. Portal, Superior Mesenteric, and Splenic Veins: Unremarkable. Gallbladder and Biliary Tract: Status post cholecystectomy. No significant biliary ductal dilatation . Pancreas: Normal density, no abnormal calcifications or inflammatory process. Spleen: Splenomegaly. Adrenals: No masses seen. Kidneys: Normal size, contour and axis. No radiodense stones or obstructive uropathy. No masses seen. Abdominal Aorta: Abdominal portion non-dilated. Atherosclerosis. Bowel: No evidence of bowel obstruction. Improved thickening of the wall of the right colon, likely portal colopathy. No evidence of appendicitis. Prior gastric surgery. Peritoneal Cavity: Abdominal ascites. No free air. Lymph Nodes: Within normal limits. Bones: Within normal limits for the patient's age. Soft Tissues: Subcutaneous edema is seen in the abdominal wall. PELVIS: Bladder: The urinary bladder is decompressed secondary to Christine catheter. Reproductive Organs: Status post hysterectomy. Lymph Nodes: Within normal limits. Bones: Within normal limits. IMPRESSION: 1. Findings of hepatic cirrhosis and sequelae of portal hypertension. 2. Improved wall thickening in the right colon likely reflecting portal colopathy. 3. Unremarkable CT scan of the chest. 4. No acute abnormality. RADIATION DOSE DELIVERED: 2,535.12mGy.cm Total DLP DATA REPOSITORY: All CT scans at this facility are submitted to the National Radiology Data Registry (NRDR) Dose Index Registry (DIR) with the [employer] (ACR). RADIATION OPTIMIZATION: All CT scans at this facility use at least one of these dose optimization te chniques: automated exposure control; mA and/or kV adjustment per patient size (includes targeted exa ms where dose is matched to clinical indication); or iterative reconstruction.
[2023-06-29 18:45] LABS: Abs Immature Grans 0.01 10^3/uL (0.0-0.06); Absolute Basophil Count 0.04 10^3/uL (0.0-0.2); Absolute Eosinophil Count 0.18 10^3/uL (0.0-0.7); Absolute Monocyte Count 0.37 10^3/uL (0.1-0.8); Absolute Neutrophil Count 1.46 10^3/uL (1.2-6.7); Basophils % 1.4; Eosinophils % 6.3; HGB 9.2 g/dL (11.2-15.7); Immature Grans % 0.3; MCH 25.8 pg (27.0-33.0); MCHC 30.7 % (32.0-36.0); MCV 84 fL (80-95); MPV 9.4 fL (8.0-11.0); Monocytes % 12.9; Neutrophils % 51.1; RBC 3.56 10^6/uL (3.93-5.22); RDW 19.3 % (11.7-14.6); RDW-SD 59.9 fL; WBC 2.86 10^3/uL (4.4-10.8)
[2023-06-29 18:58] LABS: ALT 18 U/L (14-59); AST 31 U/L (15-37); Albumin 2.4 g/dL (3.4-5.0); Alkaline Phosphatase 198 U/L (46-116); Anion Gap 4.9 mmol/L (3-11); BUN 10 mg/dL (7-18); Bilirubin, Total 1.2 mg/dL (0.2-1.0); CO2 30.1 mmol/L (21.0-32.0); CREATININE 0.8 mg/dL (0.55-1.02); Calcium 8.8 mg/dL (8.5-10.1); Chloride 104 mmol/L (98-107); Estimated GFR 80.21 (mL/min/1.73m2); Glucose 261 mg/dL (74-106); Potassium 3.4 mmol/L (3.5-5.1); Sodium 139 mmol/L (136-145); Total Protein 6.1 g/dL (6.4-8.2)
[2023-06-29 19:10] LABS: Platelet Count 85 10^3/uL (130-400)
[2023-06-29 19:12] LABS: Ammonia 68 umol/L (11-32)
[2023-06-29 19:14] LABS: Bilirubin Negative (Negative); Blood Negative (Negative); Clarity Clear (Clear); Glucose 100 mg/dL (Negative); Ketones Negative (Negative); Leukocyte Esterase Negative (Negative); Nitrite Negative (Negative); Urobilinogen 0.2 mg/dL (Up to 0.2)
--- NOTE | 2023-06-29 19:16 | DI.RAD_ITS ---
Exam(s) XR CHEST 1V IN DI DEPT EXAM: XR CHEST 1V IN DI DEPT CLINICAL HISTORY: weakness TECHNIQUE: 2D digital imaging was performed of the chest. One image was obtained. An AP view was ob tained. COMPARISON: CR,XR XR PORTABLE CHEST AP from 05/18/2023 FINDINGS: MEDIASTINUM: Normal. HEART: Cardiomegaly. PULMONARY VASCULATURE: Mild pulmonary venous congestion. This is similar to the prior examination. LUNGS: Clear. PLEURAL SPACE: No pleural effusion or pneumothorax. BONE:Within normal limits for the patient's age. There is again seen a left clavicular fracture defor mity. OTHER FINDINGS:Normal. IMPRESSION: Stable cardiomegaly and central venous congestion. DATA REPOSITORY: RADIATION DOSE DELIVERED:
[2023-06-29] MEDS: Normal Saline - Diluent 50 ML VIAL IV (20:26)
[2023-06-29] MEDS: Omnipaque 350 MG/ML 100 ML BTL IJ (20:26)
--- NOTE | 2023-06-29 20:31 | DI.VRAD_ITS ---
PROCEDURE INFORMATION: Exam: XR Chest Exam date and time: 06/29/2023 7:36 PM Age: 68 years old Clinical indication: Other: Weakness TECHNIQUE: Imaging protocol: Radiologic exam of the chest. Views: 1 view. COMPARISON: CR XR PORTABLE CHEST AP 05/18/2023 7:53 PM FINDINGS: Lungs: No laxmi airspace consolidation on portable imaging. The lungs appear hyperinflated. Pleural spaces: No pleural effusion. No pneumothorax. Heart/Mediastinum: Moderate cardiomegaly and moderate central vascular congestion, similar to prior. Bones/joints: No acute fracture. And minor chronic right chest wall deformity appears either congenital or posttraumatic. IMPRESSION: Moderate cardiomegaly and moderate central vascular congestion, similar to prior. Dictated and Authenticated by: Gricelda Coleman MD. Ordering:MALGORZATA Rubin MD
--- NOTE | 2023-06-29 20:34 | DI.VRAD_ITS ---
PROCEDURE INFORMATION: Exam: CT Head Without Contrast Exam date and time: 06/29/2023 7:35 PM Age: 68 years old Clinical indication: Other: Weakness generalized TECHNIQUE: Imaging protocol: Computed tomography of the head without contrast. COMPARISON: MR BRAIN PITUITARY WO/W 02/04/2023 9:23 AM FINDINGS: Brain: Diffuse mild atrophy. No intracranial hemorrhage. No large territory acute CVA. No mass. No edema. Pituitary enlargement. There appears to be an anterior pituitary nodule measuring 12 x 9 mm. Recommend clinical correlation. There is a previous pituitary MRI from 02/04/2023. Cerebral ventricles: No acute ventriculomegaly. Paranasal sinuses: Sinuses are clear. Mastoid air cells: Visualized mastoid air cells are well aerated. Bones/joints: Unremarkable. No acute fracture. Soft tissues: Unremarkable. IMPRESSION: 1. Unremarkable acute noncontrast CT head. Age-appropriate atrophy. No acute features. 2. Pituitary enlargement. Please see MRI of the pituitary 02/04/2023. Dictated and Authenticated by: Mick Tijerina MD. Ordering:MALGORZATA Rubin MD
--- NOTE | 2023-06-29 20:37 | DI.VRAD_ITS ---
PROCEDURE INFORMATION: Exam: CT Chest With Contrast; Diagnostic Exam date and time: 06/29/2023 7:47 PM Age: 68 years old Clinical indication: Other: Weakness TECHNIQUE: Imaging protocol: Diagnostic computed tomography of the chest with contrast. COMPARISON: CR XR CHEST 1V IN DI DEPT 06/29/2023 7:36 PM FINDINGS: Lungs: No airspace consolidation. Pleural spaces: No pneumothorax. No pleural effusion. Heart: Mild cardiomegaly. Lymph nodes: No enlarged lymph nodes. Vasculature: No aortic aneurysm. Bones/joints: Chronic bony changes with no acute fracture. Soft tissues: No suspicious lesions. IMPRESSION: No acute findings. PROCEDURE INFORMATION: Exam: CT Abdomen And Pelvis With Contrast Exam date and time: 06/29/2023 7:47 PM Age: 68 years old Clinical indication: Other: Weakness TECHNIQUE: Imaging protocol: Computed tomography of the abdomen and pelvis with contrast. Contrast material: OMNIPAQUE 350; Contrast volume: 100 ml; Contrast route: INTRAVENOUS (IV); COMPARISON: CT ABDOMEN PELVIS W 12/13/2022 5:13 PM FINDINGS: Liver: Cirrhosis again seen. Nodular liver contour. Tiny hepatic hypodensities challenging to characterize on this phase of imaging, with follow-up based on institutional protocol recommended. Gallbladder and bile ducts: Cholecystectomy. Typical caliber of the CBD for a post cholecystectomy patient. Pancreas: No ductal dilation. No masses. Spleen: Splenomegaly again seen. Adrenal glands: No mass. Kidneys and ureters: No hydronephrosis. No renal masses. Stomach and bowel: Postsurgical changes in stomach again seen. Mild wall thickening of right colon slightly improved, likely portal colopathy. No obstructive process in colon or small bowel. Appendix: No evidence of appendicitis. Intraperitoneal space: Small ascites, slightly improved. Upper mesenteric edema probably portal hypertension related. Edema root of small-bowel mesentery also similar to prior and likely portal hypertension related. Vasculature: Distended IVC and iliac veins. Patent portal vein. Abdominal and pelvic varices again seen. Lymph nodes: No significantly enlarged lymph nodes. Urinary bladder: Christine catheter in a decompressed urinary bladder. Reproductive: Hysterectomy. Bones/joints: A prominent probably Schmorl's node at L4 similar to prior. Degenerative changes. No acute bony pathology. Soft tissues: Moderate to severe subcutaneous edema overall worsened. Probable chronic edema of the ventral pannus. IMPRESSION: 1. No acute findings. 2. Cirrhosis and sequelae of portal hypertension again seen. 3. Christine catheter in a decompressed urinary bladder. 4. Favor mild right portal colopathy, similar. 6. Additional findings as described. Dictated and Authenticated by: Gricelda Coleman MD. Ordering:MALGORZATA Rubin MD
--- NOTE | 2023-06-29 21:10 | W.ED.GENAD ---
Discharge Plan Disposition Patient Disposition: Admit to [facility] Discharge Details Clinical Impression: Acute hepatic encephalopathy, Weakness, Acute hip pain Admit Date/Time: 06/29/23 21:08 Admit Provider: Devin Carlson Attending Provider: Devin Carlson Primary Care Provider: Jefe Coffey ED Provider: Caryn Anthony Medical Decision Making This 68-year-old female presents with report of weakness and frequent falls over the course of the past week. Was recently diagnosed with cirrhosis and hepatic encephalopathy at [facility] and stayed on lactulose, not reportedly taking this medication, has fallen twice today. Denies any current pain complaints aside from some mild right hip pain Secondary to age, mild confusion, weakness, I did order CT head and CT abdomen and pelvis and chest x-ray, no leukocytosis, urinalysis does not show evidence of infection, CT head does not show evidence of acute abnormality, CT abdomen and pelvis does not show evidence of acute abnormality, as patient is weak and son is having difficulty caring for her secondary to frequent falls, she will need admission for medication, lactulose administration, PT assessment, and observation Case discussed with admitting hospitalist, Dr. Carlson I see no clear evidence of infectious etiology of patient's complaints agreeable to admission at this time HPI General Date/Time Provider Initiated Documentation: 06/29/23 18:13. HPI Narrative: This 68-year-old female with history of hypersomnia, UTI, hypothermia, anemia, diabetes, cirrhosis presents with report of falls x4 this week, weakness, right hip pain which is been progressively worsening over the course of the past week. Patient has reportedly fallen twice today. Son states that he has been having difficulty caring for her as she has been weak and falling more. They have had to call EMS several times this week for lift assist. Patient has not been taking her medications as prescribed per son, she was reportedly prescribed lactulose during her visit to [place] 2 weeks ago. He is unsure as to whether or not she is actually taking this medication. Patient states she has some mild right hip pain denies any current pain complaints, specifically denies any chest pain, shortness of breath, dizziness, weakness. Related Data Home Medications Medication Instructions Recorded Confirmed metformin 1,000 mg tablet 1,000 mg PO BID 11/09/22 06/29/23 ropinirole 2 mg tablet 2 mg PO BID 11/09/22 06/29/23 zolpidem 5 mg tablet 5 mg PO QHS PRN 11/09/22 06/29/23 pantoprazole 40 mg tablet,delayed 40 mg PO BID 12/15/22 06/29/23 release carvedilol 3.125 mg tablet 6.25 mg PO BID 01/23/23 06/29/23 oxycodone 5 mg tablet 5 mg PO Q6H PRN 01/23/23 06/29/23 nystatin 100,000 unit/gram topical 6,000,000 unit topical TID #60 02/05/23 06/29/23 powder grams doxepin 10 mg capsule 10 mg PO QHS 03/27/23 06/29/23 ondansetron 4 mg disintegrating 4 mg PO Q8H 03/27/23 06/29/23 tablet spironolactone 25 mg tablet 100 mg PO DAILY 03/27/23 06/29/23 fluoxetine 40 mg capsule 40 mg PO DAILY 05/18/23 06/29/23 torsemide 20 mg tablet 40 mg PO DAILY #30 tabs 05/18/23 06/29/23 lactulose 10 gram/15 mL oral 30 g PO BID 06/26/23 06/29/23 solution Previous Rx's Medication Instructions Recorded nystatin 100,000 unit/gram topical 6,000,000 unit topical TID #60 02/05/23 powder grams torsemide 20 mg tablet 40 mg PO DAILY #30 tabs 05/18/23 Allergies Allergy/AdvReac Type Severity Reaction Status Date / Time Penicillins Allergy Severe Swelling/Ed Verified 06/29/23 18:06 sophie tramadol Allergy Severe Swelling/Ed Verified 06/29/23 18:06 sophie apricot Allergy Intermediate Hives Verified 06/29/23 18:06 vancomycin AdvReac Intermediate Other (See Verified 06/29/23 18:06 Comment) General Stated Complaint: [facility] CHELA: 3 PFSH All Active Problems (Updated 06/29/23 @ 23:06 by JAHAIRA Denney) Acute hepatic encephalopathy (Acute) Weakness (Acute) Acute hip pain (Acute) Hypersomnia (Acute) UTI (urinary tract infection) (Acute) Hypothermia (Acute) Transient neurologic deficit (Acute) Anemia due to gastrointestinal blood loss (Acute) Hyperglycemia due to type 2 diabetes mellitus (Acute) No-show for appointment (Acute) Submucosal neoplasm of stomach (Acute) JAYDEN (obstructive sleep apnea) (Chronic) Lung nodule (Acute) Biliary dyskinesia (Acute) Atypical angina (Acute) Acquired arteriovenous malformation (Acute) Medical History Anasarca Anemia Anxiety CHF (congestive heart failure) Chronic low back pain Cirrhosis Crohn's disease Depressive disorder Dyslipidemia GAVE (gastric antral vascular ectasia) Lesion of esophagus Lumbar spondylosis SALCIDO (nonalcoholic steatohepatitis) Neoplasm of parotid gland Pituitary adenoma Restless legs Type 2 diabetes mellitus Surgical History History of hysterectomy History of sleeve gastrectomy History of total knee arthroplasty Family History Brother Cancer Lung Alcohol use disorder 2 older brothers Social History Smoking/Tobacco Use Status: Never Smoking risk assessment performed?: Yes Alcohol Intake: never Drug use: Never Substance use type: does not use Housing: house Current gender identity: female Do you feel safe at home: Yes Do you feel safe in your relationship?: Yes Additional Social history: Lives with Arslan, and son in [place]. Moved from [place] in 2019. Has a dog and 7 pet birds. Course Vital Signs Vital signs: Vital Signs Temperature 36.8 C 06/29/23 17:52 Pulse 71 06/29/23 17:52 Respiratory Rate 12 06/29/23 17:52 Blood Pressure 124/44 L 06/29/23 17:52 Pulse Oximetry 99 06/29/23 17:52 Temperature 36.8 C 06/29/23 17:52 Pulse 69 06/29/23 20:30 Pulse 73 06/29/23 20:40 Respiratory Rate 13 06/29/23 20:40 Respiratory Effort Normal, Non-Labored 06/29/23 18:12 Respiratory Depth Normal 06/29/23 18:08 Respiratory Pattern Normal 06/29/23 18:08 Blood Pressure 120/46 L 06/29/23 20:30 Blood Pressure Mean 64 06/29/23 20:30 Blood Pressure Position Supine 06/29/23 17:52 Pulse Oximetry 93 06/29/23 20:40 Oxygen Delivery Method Room Air 06/29/23 17:52 Oxygen Flow Rate 0 06/29/23 17:52 Pain Level 0 06/29/23 17:52 Comment pain with ambulation had been using a cane but now needs a walker 06/29/23 17:52 Lab/Test Results Lab/Test Results: 06/29/23 18:49 Blood Blood Culture - Pending 06/29/23 18:33 Blood Blood Culture - Pending Laboratory Tests Range/Units 06/29/23 06/29/23 06/29/23 18:33 18:33 18:33 WBC (4.4-10.8) 10^3/uL 2.86 L RBC (3.93-5.22) 10^6/uL 3.56 L Hgb (11.2-15.7) g/dL 9.2 L Hct (36.0-46.0) % 30.0 L MCV (80-95) fL 84 MCH (27.0-33.0) pg 25.8 L MCHC (32.0-36.0) % 30.7 L RDW (11.7-14.6) % 19.3 H Plt Count (130-400) 10^3/uL 85 L MPV (8.0-11.0) fL 9.4 Immature Gran % 0.3 Neutrophils % 51.1 Lymphocytes % 28.0 Monocytes % 12.9 Eosinophils % 6.3 Basophils % 1.4 Nucleated RBC % (0.0-0.3) % 0.0 Absolute Neutrophils (1.2-6.7) 10^3/uL 1.46 Absolute Lymphocytes (1.2-3.4) 10^3/uL 0.80 L Absolute Monocytes (0.1-0.8) 10^3/uL 0.37 Absolute Eosinophils (0.0-0.7) 10^3/uL 0.18 Absolute Basophils (0.0-0.2) 10^3/uL 0.04 VBG Lactate (0.6-1.4) mmol/L 1.0 Sodium (136-145) mmol/L 139 Potassium (3.5-5.1) mmol/L 3.4 L Chloride (98-107) mmol/L 104 Carbon Dioxide (21.0-32.0) mmol/L 30.1 Anion Gap (3-11) mmol/L 4.9 BUN (7-18) mg/dL 10 Creatinine (0.55-1.02) mg/dL 0.8 Est GFR (CKD-EPI 2020) (mL/min/1.73m2) 80.21 Glucose (74-106) mg/dL 261 H Calcium (8.5-10.1) mg/dL 8.8 Total Bilirubin (0.2-1.0) mg/dL 1.2 H AST (15-37) U/L 31 ALT (14-59) U/L 18 Alkaline Phosphatase (46-116) U/L 198 H Ammonia (11-32) umol/L Total Protein (6.4-8.2) g/dL 6.1 L Albumin (3.4-5.0) g/dL 2.4 L Urine Color (Yellow) Urine Clarity (Clear) Urine pH (5-8) Ur Specific Dowell (1.005-1.025) Urine Protein (Negative) mg/dL Urine Ketones (Negative) mg/dL Urine Blood (Negative) Urine Nitrite (Negative) Urine Bilirubin (Negative) Urine Urobilinogen (Up to 0.2) mg/dL Ur Leukocyte Esterase (Negative) Urine Glucose (Negative) mg/dL Range/Units 06/29/23 06/29/23 18:50 19:07 WBC (4.4-10.8) 10^3/uL RBC (3.93-5.22) 10^6/uL Hgb (11.2-15.7) g/dL Hct (36.0-46.0) % MCV (80-95) fL MCH (27.0-33.0) pg MCHC (32.0-36.0) % RDW (11.7-14.6) % Plt Count (130-400) 10^3/uL MPV (8.0-11.0) fL Immature Gran % Neutrophils % Lymphocytes % Monocytes % Eosinophils % Basophils % Nucleated RBC % (0.0-0.3) % Absolute Neutrophils (1.2-6.7) 10^3/uL Absolute Lymphocytes (1.2-3.4) 10^3/uL Absolute Monocytes (0.1-0.8) 10^3/uL Absolute Eosinophils (0.0-0.7) 10^3/uL Absolute Basophils (0.0-0.2) 10^3/uL VBG Lactate (0.6-1.4) mmol/L Sodium (136-145) mmol/L Potassium (3.5-5.1) mmol/L Chloride (98-107) mmol/L Carbon Dioxide (21.0-32.0) mmol/L Anion Gap (3-11) mmol/L BUN (7-18) mg/dL Creatinine (0.55-1.02) mg/dL Est GFR (CKD-EPI 2020) (mL/min/1.73m2) Glucose (74-106) mg/dL Calcium (8.5-10.1) mg/dL Total Bilirubin (0.2-1.0) mg/dL AST (15-37) U/L ALT (14-59) U/L Alkaline Phosphatase (46-116) U/L Ammonia (11-32) umol/L 68 H Total Protein (6.4-8.2) g/dL Albumin (3.4-5.0) g/dL Urine Color (Yellow) Yellow Urine Clarity (Clear) Clear Urine pH (5-8) 7.0 Ur Specific Dowell (1.005-1.025) 1.010 Urine Protein (Negative) mg/dL Negative Urine Ketones (Negative) mg/dL Negative Urine Blood (Negative) Negative Urine Nitrite (Negative) Negative Urine Bilirubin (Negative) Negative Urine Urobilinogen (Up to 0.2) mg/dL 0.2 Ur Leukocyte Esterase (Negative) Negative Urine Glucose (Negative) mg/dL 100 H
[2023-06-29] MEDS: Lactulose 20 GM/30 ML CUP 30 GM PO (21:16)
--- NOTE | 2023-06-29 22:59 | NUR.NOTE ---
Nursing Note: Late entry this nurse placed the pichardo cath in, the pt requested not to have the secure device placed on her leg due to skin irritation and stated her skin is sensitive there and that it rubs against her, pt also stated that she is aware of the pichardo and that no attempt to remove it.
[2023-06-30] VITALS (7 sets, daily range): BP systolic 116–127; BP diastolic 65–71; PULSE 64–82; RESP 18; TEMP 36.2–36.8; O2SAT 95–97
[2023-06-30] MEDS: Doxepin 10 MG CAP PO ×2 (01:23→22:01)
[2023-06-30] MEDS: rOPINIRole 0.5 MG TAB 2 MG PO (01:23)
[2023-06-30] MEDS: oxyCODONE 5 MG TAB PO ×2 (04:17→23:06)
--- NOTE | 2023-06-30 05:18 | W.PM.HP.N ---
Date of service: 06/29/23 Time of Service: 22:00 Assessment and Plan Assessment and plan (1) Acute hepatic encephalopathy: Start date: 06/29/23 Status: Acute Assessment and plan: This is a 68-year-old lady with Salcido who presents with worsening encephalopathy and falls at home with weakness. She did injure her right hip which will be x-rayed having not been x-rayed in the ED. Is mostly weightbearing and we need to rule out subcapital fracture which would be impacted. She may not been taking her lactulose for her increased ammonia level detected recently and this will be reinitiated at 30 g 3 times daily. She needs to initiate stooling. Trend ammonia levels. As patient is less confused she needs to evaluate for safe ambulation at home. Long-term she needs to stay on lactulose to avoid worsening weakness and encephalopathy. She is a full code. (2) Acute hip pain: Start date: 06/29/23 Status: Acute Assessment and plan: Imaging and have physical therapy evaluate for safe ambulation once cleared for weightbearing. (3) Hypokalemia: Start date: 06/29/23 Status: Acute Assessment and plan: Most likely skin secondary to use of torsemide and now off spironolactone. Replete with oral potassium supplement and follow lab adjusting long-term supplement of potassium if needed. Check medication level. (4) Weakness: Start date: 06/29/23 Status: Acute Assessment and plan: Patient increased weakness most likely secondary to hepatic encephalopathy and deconditioning. She needs to be aggressive in treating her increased ammonia and weight loss and long-term better control of her metabolic issues would be helpful. Prognosis poor for change. There has been no other reason for weakness at this time. (5) SALCIDO (nonalcoholic steatohepatitis): Assessment and plan: More aggressive weight loss and treatment of metabolic issues. Prognosis poor for change. (6) Type 2 diabetes mellitus: Assessment and plan: Glucometer measurements with short acting insulin coverage while hospitalized. Patient would be a candidate for GLP-1 agonist which may help with hyperglycemic control and weight loss.. Qualifiers: Diabetes mellitus complication status: without complication Diabetes mellitus dispute coordinator insulin use: without residential use Qualified Code(s): E11.9 - Type 2 diabetes mellitus without complications (7) CHF (congestive heart failure): Assessment and plan: Patient recently stopped Aldactone but is on torsemide and has hypokalemia which will be treated with oral potassium. Long-term this may be followed repleted as needed. Qualifiers: Heart failure type: diastolic Heart failure chronicity: acute on chronic Qualified Code(s): I50.33 - Acute on chronic diastolic (congestive) heart failure (8) Chronic low back pain: Assessment and plan: Patient states that his low back pain has been worsened by recent falls. She is on tramadol twice daily for pain. Physical therapy can evaluate for safety with ambulation and long-term she should do back exercises. History of Present Illness History of Present Illness Chief Complaint: Frequent falls at home with increased weakness and right hip pain Narrative: This is 68-year-old morbidly obese female patient who has diabetes and Salcido who presented to the ED after multiple falls at home requiring a call out to help with lifting. Her and she both have obesity and cirrhosis with her having more severe hepatic encephalopathy on treatment. Patient has recently been started on lactulose for her ammonia levels which were elevated with hepatic encephalopathy. She has CHF and spironolactone was recently discontinued though she does have slightly low potassium in the ED and magnesium will be checked. She has had no symptoms of worsening CHF or shortness of breath. She did injure her right hip with slight pain which prompted her visit to the ED as well. Presented being around because of her increased confusion with hepatic encephalopathy and Helma not being certain she is taking her lactulose as ordered by her PCP. She is slightly confused and offers no further history. See ED report for review. She is a full code. Review of Systems Narrative: 13 point review of systems otherwise unrevealing or stable with patient being a poor historian and slightly confused with her hepatic encephalopathy. Patient does state that her right hip mainly hurts with weightbearing. [facility] All Active Problems (Updated 06/30/23 @ 06:53 by Devin Carlson) Hypokalemia (Acute) Acute hepatic encephalopathy (Acute) Weakness (Acute) Acute hip pain (Acute) Hypersomnia (Acute) UTI (urinary tract infection) (Acute) Hypothermia (Acute) Transient neurologic deficit (Acute) Anemia due to gastrointestinal blood loss (Acute) Hyperglycemia due to type 2 diabetes mellitus (Acute) No-show for appointment (Acute) Submucosal neoplasm of stomach (Acute) JAYDEN (obstructive sleep apnea) (Chronic) Lung nodule (Acute) Biliary dyskinesia (Acute) Atypical angina (Acute) Acquired arteriovenous malformation (Acute) Medical History Anasarca Anemia Anxiety CHF (congestive heart failure) Chronic low back pain Cirrhosis Crohn's disease Depressive disorder Dyslipidemia GAVE (gastric antral vascular ectasia) Lesion of esophagus Lumbar spondylosis SALCIDO (nonalcoholic steatohepatitis) Neoplasm of parotid gland Pituitary adenoma Restless legs Type 2 diabetes mellitus Surgical History History of hysterectomy History of sleeve gastrectomy History of total knee arthroplasty Family History Brother Cancer Lung Alcohol use disorder 2 older brothers Social History Smoking/Tobacco Use Status: Never Smoking risk assessment performed?: Yes Alcohol Intake: never Drug use: Never Substance use type: does not use Housing: house Current gender identity: female Do you feel safe at home: Yes Do you feel safe in your relationship?: Yes Additional Social history: Lives with Arslan, and son in [place]. Moved from [place] in 2019. Has a dog and 7 pet birds. Meds Allergies and Home Medications Allergies Allergy/AdvReac Type Severity Reaction Status Date / Time Penicillins Allergy Severe Swelling/Ed Verified 06/29/23 18:06 sophie tramadol Allergy Severe Swelling/Ed Verified 06/29/23 18:06 sophie apricot Allergy Intermediate Hives Verified 06/29/23 18:06 vancomycin AdvReac Intermediate Other (See Verified 06/29/23 18:06 Comment) Home Medications Medication Instructions Recorded Confirmed Type metformin 1,000 mg tablet 1,000 mg PO BID 11/09/22 06/29/23 History ropinirole 2 mg tablet 2 mg PO BID 11/09/22 06/29/23 History zolpidem 5 mg tablet 5 mg PO QHS PRN 11/09/22 06/29/23 History pantoprazole 40 mg tablet,delayed 40 mg PO BID 12/15/22 06/29/23 History release carvedilol 3.125 mg tablet 6.25 mg PO BID 01/23/23 06/29/23 History oxycodone 5 mg tablet 5 mg PO Q6H PRN 01/23/23 06/29/23 History nystatin 100,000 unit/gram topical 6,000,000 unit topical TID #60 02/05/23 06/29/23 Rx powder grams doxepin 10 mg capsule 10 mg PO QHS 03/27/23 06/29/23 History ondansetron 4 mg disintegrating 4 mg PO Q8H PRN 03/27/23 06/30/23 History tablet spironolactone 25 mg tablet 100 mg PO DAILY 03/27/23 06/26/23 History fluoxetine 40 mg capsule 40 mg PO DAILY 05/18/23 06/29/23 History torsemide 20 mg tablet 40 mg PO DAILY #30 tabs 05/18/23 06/29/23 Rx lactulose 10 gram/15 mL oral 30 g PO BID 06/26/23 06/29/23 History solution Exam Narrative Exam Narrative: General: Patient appears older than stated age, morbidly obese, lying in bed with the head at a 45 degree angle breathing comfortably. She is alert and oriented at least to person place. She is no acute distress. HEENT: Normocephalic, eyes with pupils equal and reactive light symmetrically, sclerae anicteric. Oropharynx with slightly dry mucosa and poor dentition. Neck: Supple without JVD. Back: Kyphotic without CVA tenderness. Loss of lordotic curve lumbar spine with decreased range of motion. Lungs: Essentially clear to auscultation percussion with no focalizing rales or rhonchi. Breast: Exam deferred. Heart: Regular rate and rhythm with 3/6 to 4/6 systolic murmur left sternal border, no gallops or rubs. Abdomen: Obese, soft and nontender to palpation with no palpable hepatosplenomegaly. Bowel sounds positive all quadrants. Genitalia/rectal: Exam deferred. Patient has a Christine catheter draining clear urine. Extremities: Obese legs with nonpitting edema, well-healed TKA scars over both knees, right hip has no exquisite tenderness to passive range of motion with extension and flexion as well as internal and external rotation. Slightly tender to palpation over the pelvic area. Straight leg test negative on the right. No clubbing or cyanosis. Good capillary refill. Skin: Pale, warm and dry. Neuro: Cranial nerves II to XII is intact, no focalizing motor deficits and no tremor. Psych: Patient has flattened affect with depressed mood. Patient wandering conversation is slightly encephalopathic with some short-term memory loss but no abnormal thought processes. Remote memory appears grossly intact. Results Imaging Imaging Studies: Exam: CT Head Without Contrast Exam date and time: 06/29/2023 7:35 PM Age: 68 years old Clinical indication: Other: Weakness generalized TECHNIQUE: Imaging protocol: Computed tomography of the head without contrast. COMPARISON: MR BRAIN PITUITARY WO/W 02/04/2023 9:23 AM FINDINGS: Brain: Diffuse mild atrophy. No intracranial hemorrhage. No large territory acute CVA. No mass. No edema. Pituitary enlargement. There appears to be an anterior pituitary nodule measuring 12 x 9 mm. Recommend clinical correlation. There is a previous pituitary MRI from 02/04/2023. Cerebral ventricles: No acute ventriculomegaly. Paranasal sinuses: Sinuses are clear. Mastoid air cells: Visualized mastoid air cells are well aerated. Bones/joints: Unremarkable. No acute fracture. Soft tissues: Unremarkable. IMPRESSION: 1. ? Unremarkable acute noncontrast CT head. Age-appropriate atrophy. No acute features. 2. ? Pituitary enlargement. Please see MRI of the pituitary 02/04/2023. Exam: XR Chest Exam date and time: 06/29/2023 7:36 PM Age: 68 years old Clinical indication: Other: Weakness TECHNIQUE: Imaging protocol: Radiologic exam of the chest. Views: 1 view. COMPARISON: CR XR PORTABLE CHEST AP 05/18/2023 7:53 PM FINDINGS: Lungs: No laxmi airspace consolidation on portable imaging. The lungs appear hyperinflated. Pleural spaces: No pleural effusion. No pneumothorax. Heart/Mediastinum: Moderate cardiomegaly and moderate central vascular congestion, similar to prior. Bones/joints: No acute fracture.? And minor chronic right chest wall deformity appears either congenital or posttraumatic. IMPRESSION: Moderate cardiomegaly and moderate central vascular congestion, similar to prior. Exam: CT Chest With Contrast; Diagnostic Exam date and time: 06/29/2023 7:47 PM Age: 68 years old Clinical indication: Other: Weakness TECHNIQUE: Imaging protocol: Diagnostic computed tomography of the chest with contrast. COMPARISON: CR XR CHEST 1V IN DI DEPT 06/29/2023 7:36 PM FINDINGS: Lungs: No airspace consolidation. Pleural spaces: No pneumothorax. No pleural effusion. Heart: Mild cardiomegaly. Lymph nodes: No enlarged lymph nodes. Vasculature: No aortic aneurysm.? Bones/joints: Chronic bony changes with no acute fracture. Soft tissues: No suspicious lesions.? IMPRESSION: No acute findings. PROCEDURE INFORMATION: Exam: CT Abdomen And Pelvis With Contrast Exam date and time: 06/29/2023 7:47 PM Age: 68 years old Clinical indication: Other: Weakness TECHNIQUE: Imaging protocol: Computed tomography of the abdomen and pelvis with contrast. Contrast material: OMNIPAQUE 350; Contrast volume: 100 ml; Contrast route: INTRAVENOUS (IV);? COMPARISON: CT ABDOMEN PELVIS W 12/13/2022 5:13 PM FINDINGS: Liver: Cirrhosis again seen. Nodular liver contour. Tiny hepatic hypodensities challenging to characterize on this phase of imaging, with follow-up based on institutional protocol recommended. Gallbladder and bile ducts: Cholecystectomy. Typical caliber of the CBD for a post cholecystectomy patient. Pancreas: No ductal dilation. No masses.? Spleen: Splenomegaly again seen. Adrenal glands: No mass. Kidneys and ureters: No hydronephrosis. No renal masses.? Stomach and bowel: Postsurgical changes in stomach again seen. Mild wall thickening of right colon slightly improved, likely portal colopathy. No obstructive process in colon or small bowel. Appendix: No evidence of appendicitis. Intraperitoneal space: Small ascites, slightly improved. Upper mesenteric edema probably portal hypertension related. Edema root of small-bowel mesentery also similar to prior and likely portal hypertension related. Vasculature: Distended IVC and iliac veins. Patent portal vein. Abdominal and pelvic varices again seen. Lymph nodes: No significantly enlarged lymph nodes. Urinary bladder: Christine catheter in a decompressed urinary bladder. Reproductive: Hysterectomy. Bones/joints: A prominent probably Schmorl's node at L4 similar to prior. Degenerative changes. No acute bony pathology. Soft tissues: Moderate to severe subcutaneous edema overall worsened. Probable chronic edema of the ventral pannus. IMPRESSION: 1. ? No acute findings. 2. ? Cirrhosis and sequelae of portal hypertension again seen. 3. ? Christine catheter in a decompressed urinary bladder. 4. ? Favor mild right portal colopathy, similar. 6. ? Additional findings as described. Labs 06/29/23 18:33 06/29/23 18:33 Labs: Laboratory Results - last 24 hr 06/29/23 06/29/23 06/29/23 18:22 18:33 18:33 WBC 2.86 L RBC 3.56 L Hgb 9.2 L Hct 30.0 L MCV 84 MCH 25.8 L MCHC 30.7 L RDW 19.3 H Plt Count 85 L MPV 9.4 Immature Gran % 0.3 Neutrophils % 51.1 Lymphocytes % 28.0 Monocytes % 12.9 Eosinophils % 6.3 Basophils % 1.4 Nucleated RBC % 0.0 Absolute Neutrophils 1.46 Absolute Lymphocytes 0.80 L Absolute Monocytes 0.37 Absolute Eosinophils 0.18 Absolute Basophils 0.04 VBG Lactate Sodium 139 Potassium 3.4 L Chloride 104 Carbon Dioxide 30.1 Anion Gap 4.9 BUN 10 Creatinine 0.8 Est GFR (CKD-EPI 2020) 80.21 Glucose 261 H Calcium 8.8 Total Bilirubin 1.2 H AST 31 ALT 18 Alkaline Phosphatase 198 H Ammonia Troponin I Cancelled Total Protein 6.1 L Albumin 2.4 L Urine Color Urine Clarity Urine pH Ur Specific Munday Urine Protein Urine Ketones Urine Blood Urine Nitrite Urine Bilirubin Urine Urobilinogen Ur Leukocyte Esterase Urine Glucose 06/29/23 06/29/23 06/29/23 18:33 18:50 19:07 WBC RBC Hgb Hct MCV MCH MCHC RDW Plt Count MPV Immature Gran % Neutrophils % Lymphocytes % Monocytes % Eosinophils % Basophils % Nucleated RBC % Absolute Neutrophils Absolute Lymphocytes Absolute Monocytes Absolute Eosinophils Absolute Basophils VBG Lactate 1.0 Sodium Potassium Chloride Carbon Dioxide Anion Gap BUN Creatinine Est GFR (CKD-EPI 2020) Glucose Calcium Total Bilirubin AST ALT Alkaline Phosphatase Ammonia 68 H Troponin I Total Protein Albumin Urine Color Yellow Urine Clarity Clear Urine pH 7.0 Ur Specific Munday 1.010 Urine Protein Negative Urine Ketones Negative Urine Blood Negative Urine Nitrite Negative Urine Bilirubin Negative Urine Urobilinogen 0.2 Ur Leukocyte Esterase Negative Urine Glucose 100 H Last Vital Signs Temp 36.6 C 06/29/23 21:53 Pulse 76 06/29/23 21:53 Resp 18 06/29/23 21:53 BP 147/63 H 06/29/23 21:53 Pulse Ox 99 06/29/23 21:53 Time Spent Time spent with Patient: >75 minutes Time was spent: preparing to see the patient(eg.review tests), obtaining and/or reviewing separately otained hiistory, ordering medications,tests, procedures, referring, communicating with other health floor care specialist, indepentently interpreting results, counseling the patient and care coordination
[2023-06-30] MEDS: Potassium Chloride 20 MEQ TABCR 40 MEQ PO (06:28)
[2023-06-30 07:06] LABS: HCT 28.2 % (36.0-46.0); HGB 8.8 g/dL (11.2-15.7); INR 1.1 (0.9-1.1); MCH 26.3 pg (27.0-33.0); MCHC 31.2 % (32.0-36.0); MCV 84 fL (80-95); MPV 10.2 fL (8.0-11.0); Prothrombin Time 11.4 sec (9.3-11.0); RBC 3.35 10^6/uL (3.93-5.22); RDW 19.5 % (11.7-14.6); RDW-SD 60.5 fL; WBC 2.92 10^3/uL (4.4-10.8)
[2023-06-30 07:11] LABS: ALT 16 U/L (14-59); AST 29 U/L (15-37); Albumin 2.1 g/dL (3.4-5.0); Alkaline Phosphatase 169 U/L (46-116); Anion Gap 5.3 mmol/L (3-11); BUN 10 mg/dL (7-18); CO2 28.7 mmol/L (21.0-32.0); CREATININE 0.9 mg/dL (0.55-1.02); Calcium 8.4 mg/dL (8.5-10.1); Chloride 106 mmol/L (98-107); Estimated GFR 69.64 (mL/min/1.73m2); Glucose 325 mg/dL (74-106); Magnesium 1.7 mg/dL (1.8-2.4); Potassium 3.5 mmol/L (3.5-5.1); Sodium 140 mmol/L (136-145); Total Protein 5.4 g/dL (6.4-8.2)
[2023-06-30 07:47] LABS: TSH (W/Ref FT4) 2.14 uIU/mL (0.36-3.74)
[2023-06-30 08:13] LABS: Platelet Count 79 10^3/uL (130-400)
--- NOTE | 2023-06-30 08:27 | INITIAL_ITS ---
Date of service: 06/30/23 Time of Service: 08:27 Care Management Initial Assmt Initial Assessment REASON FOR HOSPITALIZATION:: hepatic encephalopathy PREVIOUS FUNCTIONAL STATUS/SOCIAL/FAMILY SUPPORTS:: Eli, who prefers to be called Re, lives in a single family home in [place] with her Alexis. They have one child together, a son, who lives with them and 2 step daughters. One step daughter lives in [place] and the other is in [place]. She also has one grandson who lives in [place], [place]. 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 Re uses a walker for ambulation but does not receive any community services. CURRENT FUNCTIONAL STATUS:: Re was lying in bed when CM met with her. She was very sleepy and kept nodding off during the conversation. She explained that she did not get to sleep until 3 am and is very tired. She also stated that her ammonia level is high and she gets sleepy when that is the case. Re informed CM that she has fallen at home 4 times in the past 2 weeks. That is not her baseline. She stated that she is not sure why although she believes her elevated ammonia level may be making her weak. When asked if she would consider going to rehab if recommended, she responded I'd consider it, but indicated that it would not be her preference. ADVANCE DIRECTIVES:: none on file Has patient been provided with info about the portal/API?: Yes Did the patient sign up for the portal?: Yes CODE STATUS:: Full Code INSURANCE COVERAGE / FINANCIAL ISSUES:: [facility] Medicare Replacement CURRENT HOME/COMMUNITY SERVICES/EQUIPMENT:: meg PRIMARY CARE PHYSICIAN:: Jefe Coffey POTENTIAL DISCHARGE NEEDS:: follow up with PCP and plan of care PATIENT/FAMILY EDUCATION NEEDS:: Review of discharge instructions, limitations, activity, follow up plan, Discuss Ask Me Three TRANSPORTATION:: via private vehicle with family PLAN:: Anticipate Eli will be discharged home when medially cleared by provider. If SNF for short term rehab is recommended, eR stated that she would consider it. She will follow up with her community providers and plan of care and transport with family. CM will follow and assess for discharge planning concerns. PFSH All Active Problems (Updated 06/30/23 @ 06:53 by Devin Carlson) Hypokalemia (Acute) Acute hepatic encephalopathy (Acute) Weakness (Acute) Acute hip pain (Acute) Hypersomnia (Acute) UTI (urinary tract infection) (Acute) Hypothermia (Acute) Transient neurologic deficit (Acute) Anemia due to gastrointestinal blood loss (Acute) Hyperglycemia due to type 2 diabetes mellitus (Acute) No-show for appointment (Acute) Submucosal neoplasm of stomach (Acute) JAYDEN (obstructive sleep apnea) (Chronic) Lung nodule (Acute) Biliary dyskinesia (Acute) Atypical angina (Acute) Acquired arteriovenous malformation (Acute) Medical History Anasarca Anemia Anxiety CHF (congestive heart failure) Chronic low back pain Cirrhosis Crohn's disease Depressive disorder Dyslipidemia GAVE (gastric antral vascular ectasia) Lesion of esophagus Lumbar spondylosis SALCIDO (nonalcoholic steatohepatitis) Neoplasm of parotid gland Pituitary adenoma Restless legs Type 2 diabetes mellitus Surgical History History of hysterectomy History of sleeve gastrectomy History of total knee arthroplasty Family History Brother Cancer Lung Alcohol use disorder 2 older brothers Social History Smoking/Tobacco Use Status: Never Smoking risk assessment performed?: Yes Alcohol Intake: never Drug use: Never Substance use type: does not use Housing: house Current gender identity: female Do you feel safe at home: Yes Do you feel safe in your relationship?: Yes Additional Social history: Lives with Arslan, and son in [place]. Moved from [place] in 2020. Has a dog and 7 pet birds.
[2023-06-30] MEDS: Lactulose 20 GM/30 ML CUP 30 GM PO ×3 (09:02→22:02)
[2023-06-30] MEDS: FLUoxetine 20 MG CAP 40 MG PO (09:03)
[2023-06-30] MEDS: Torsemide 20 MG TAB 40 MG PO (09:03)
[2023-06-30] MEDS: Carvedilol 6.25 MG TAB PO ×2 (09:03→22:01)
[2023-06-30] MEDS: Insulin Aspart 300 UNITS/3 ML PEN SC ×3 (09:04→22:02)
[2023-06-30] MEDS: Pantoprazole 40 MG TABCR PO ×2 (09:04→22:01)
[2023-06-30] MEDS: rOPINIRole 1 MG TAB 2 MG PO ×2 (09:04→22:01)
[2023-06-30] MEDS: Nystatin POWDER 60 GM JAR TP ×3 (09:05→22:03)
[2023-06-30] MEDS: Normal Saline Flush 10 ML SYR IVP ×2 (09:05→22:02)
[2023-06-30] MEDS: Magnesium Oxide 400 MG TAB PO ×2 (12:03→22:01)
--- NOTE | 2023-06-30 12:13 | IN_ITS ---
PT Notes Visit Reasons: Hepatic Encephalopathy, SALCIDO, Right Hip Pain,Falls Inpatient Physical Therapy Evaluation Date: 06/30/2023 Referring Doctor: Devin De La Cruz MD PT Orders: PT CONSULT: Evaluate Precautions: Fall risk Patient Profile/Admitting Diagnosis: 68-year-old female admitted earlier today with hepatic encephalopathy along with right hip pain and falls PMHX: PFSH All Active Problems?(Updated 06/30/23 @ 06:53 by Devin Carlson) Hypokalemia (Acute) Acute hepatic encephalopathy (Acute) Weakness (Acute) Acute hip pain (Acute) Hypersomnia (Acute) UTI (urinary tract infection) (Acute) Hypothermia (Acute) Transient neurologic deficit (Acute) Anemia due to gastrointestinal blood loss (Acute) Hyperglycemia due to type 2 diabetes mellitus (Acute) No-show for appointment (Acute) Submucosal neoplasm of stomach (Acute) JAYDEN (obstructive sleep apnea) (Chronic) Lung nodule (Acute) Biliary dyskinesia (Acute) Atypical angina (Acute) Acquired arteriovenous malformation (Acute) Medical History? Anasarca Anemia Anxiety CHF (congestive heart failure) Chronic low back pain Cirrhosis Crohn's disease Depressive disorder Dyslipidemia GAVE (gastric antral vascular ectasia) Lesion of esophagus Lumbar spondylosis SALCIDO (nonalcoholic steatohepatitis) Neoplasm of parotid gland Pituitary adenoma Restless legs Type 2 diabetes mellitus Surgical History? History of hysterectomy History of sleeve gastrectomy History of total knee arthroplasty Social History/Home Situation: Lives in a private home with her are both retired. Her bed room and bath on the second floor and she uses a stair climber assist. She has a combo shower bath but generally sponge bathes. She is awaiting to have a walk-in shower installed. Current Functional Limitations: Independent with her ADLs. Equipment Owned/DME: Cane and walker Subjective: Patient planes of intermittent, throughout the posterior lateral aspect of the right hip and occasionally to the groin as well as intermittent mid thoracic spine discomfort. Objective: General Observation: Resting comfortably in bed, pleasant and cooperative and no abnormal pain behavior noted Mental Status: Alert and oriented x3 Pain: As noted above. Rates her discomfort as a 3/10 on a VAS ROM: Her active shoulder motion is full and painless movement. She suffered a left clavicular fracture in January and has a palpable callus over the proximal one third which is nontender. Bilateral elbow, forearm, left hip, talocrural and subtalar movements are full and painless movement. Bilateral knee motion is limited to approximately 115 degrees of flexion, due to her bilateral TKAs, but nonpainful Her active assistive right hip motion is nonirritable with some endrange discomfort with internal rotation at 30 degrees throughout the lateral aspect of the hip. Her leg length appears symmetrical in the right leg is not excessively externally rotated or shortened. She has negative scour's test Strength: Has full motorical control throughout and her strength is generally rated +4/5 including supine straight leg raise on the right. She has mild tenderness palpation over the greater trochanter of the right hip and to lesser degree throughout the mid thoracic paraspinals Neuro: Reflexes symmetrical, sensations intact to light touch and has full motor function. Fingertips to nose is accurate without ataxia and rapid repetitive arm movements are unimpaired Bed Mobility/Transfers: Independent with assuming the supine to sitting positions with mild effort. I did not test transfers Gait: I did not test her weightbearing status until hip x-ray has been performed which is pending Balance: Static Sitting: Stable Dynamic Sitting: Stable Static Standing: Did not test Dynamic Standing: Did not test Special Tests: Mobility Limitations Standardized Measure [facility] 6 clicks Basic Mobility Inpatient Short Form: Raw Score: 10 standardized Score: 32.29 CMS Score: 76.75% Informed Consent/Education: Patient instructed in purpose of PT consult and plan of care. Assessment: Patient is a 68year old female referred to physical therapy services with the diagnosis of hepatic encephalopathy and multiple falls over the past 2 weeks resulting in posterior lateral right hip discomfort. Patient presents with clinical signs and symptoms consistent with diagnosis, as demonstrated by the following impairment level findings: Negative right lower extremity leg length shortening, with nonirritable hip motion other than endrange internal rotation, negative scour's test but does have some localized t enderness over the greater trochanter. I did not test her weightbearing activities until her pending x-ray is performed. Impairments are contributing to the following functional limitations: AMPAC score. Patient is assessed as a Moderate 70842 complexity based on the following: History: See comorbidities and social history Examination: See above for functional limitations and impairments Presentation: Evolving Decision Making: Moderate complexity based on her clinical findings Goals: Goals X1 week 1. Supine-Sit independent 2. Sit-Supine independent 3. Sit-Stand independent 4. Stand-Sit independent 5. Bed-Chair independent 6. Chair-Bed independent 7. Gait independent with an FW W weightbearing as tolerated on right lower extremity for greater than 200 feet 8. Stairs climb for 5 steps with a railing 9. Independent with home exercise program 10. Balance standing with an assistive device Plan of Care/Treatment Plan: 1-2x/day, 7 days/week x 1 week. Plan of care has been reviewed with the FACILITATOR providing the service under Physical Therapy direction. Initiate Physical Therapy intervention for strengthening, bed mobility, transfers, gait, stairs, balance training, use of assistive device. DISCHARGE RECOMMENDATIONS: Home with outpatient PT TREATMENT CODE/TIME: 9716 2/45 minutes Disclaimer: This note was created using [employer] voice recognition software. It was reviewed for major content. However, there may be multiple small discrepancies and errors due to the voice recognition aspects of the software.
[2023-07-01 06:28] VITALS: BP 99/45; PULSE 70; RESP 18; TEMP 36.7; O2SAT 96
[2023-07-01 07:50] VITALS: BP 115/64; PULSE 66; RESP 17; TEMP 36.3; O2SAT 97
[2023-07-01 08:01] LABS: Absolute Basophil Count 0.03 10^3/uL (0.0-0.2); Absolute Monocyte Count 0.44 10^3/uL (0.1-0.8); Absolute Neutrophil Count 1.53 10^3/uL (1.2-6.7); Basophils % 0.9; Eosinophils % 6.3; HCT 28.5 % (36.0-46.0); HGB 8.9 g/dL (11.2-15.7); Lymphocytes % 31.3; MCH 26.1 pg (27.0-33.0); MCHC 31.2 % (32.0-36.0); MCV 84 fL (80-95); MPV 10.1 fL (8.0-11.0); Monocytes % 13.8; Neutrophils % 47.7; RBC 3.41 10^6/uL (3.93-5.22); RDW 19.6 % (11.7-14.6); RDW-SD 60.2 fL
[2023-07-01 08:14] LABS: Magnesium 1.5 mg/dL (1.8-2.4)
[2023-07-01 08:38] LABS: Platelet Count 79 10^3/uL (130-400)
[2023-07-01 08:39] LABS: Diff Comment Diff Reviewed; Hypochromasia 2+
[2023-07-01] MEDS: Insulin Aspart 300 UNITS/3 ML PEN SC ×2 (08:58→12:07)
[2023-07-01] MEDS: Lactulose 20 GM/30 ML CUP 30 GM PO (08:58)
[2023-07-01] MEDS: Torsemide 20 MG TAB 40 MG PO (08:59)
[2023-07-01] MEDS: rOPINIRole 1 MG TAB 2 MG PO (08:59)
[2023-07-01] MEDS: Carvedilol 6.25 MG TAB PO (08:59)
[2023-07-01] MEDS: Pantoprazole 40 MG TABCR PO (08:59)
[2023-07-01] MEDS: FLUoxetine 20 MG CAP 40 MG PO (08:59)
[2023-07-01] MEDS: Magnesium Oxide 400 MG TAB PO (09:00)
[2023-07-01] MEDS: Nystatin POWDER 60 GM JAR TP (09:00)
[2023-07-01 09:09] VITALS: PULSE 72
[2023-07-01 09:33] VITALS: PULSE 68
--- NOTE | 2023-07-01 09:57 | PDOC.CMPRO ---
Date of service: 07/01/23 Time of Service: 09:58 Care Management Progress Note Progress Note Text Progress Note Text: S/O: A: 68 year old female admitted to [facility] on 06/30/23 for hepatic encephalopathy P:Anticipate, Eli will be discharged home when medially cleared by provider. If SNF for short term rehab is recommended, Re stated that she would consider it. She will follow up with her community providers and plan of care and transport with family. CM will follow and assess for discharge planning concerns.
[2023-07-01] MEDS: MAGNESIUM SULFATE 4 GM/100 ML BAG IVPB (10:19)
[2023-07-01] MEDS: metFORMIN 500 MG TAB 1000 MG PO (10:21)
--- NOTE | 2023-07-01 11:35 | PTTR_ITS ---
Date of service: 07/01/23 Time of Service: 11:12 PT Notes Visit Reasons: Hepatic Encephalopathy, SALCIDO, Right Hip Pain,Falls Inpatient Physical Therapy Treatment Note [facility] Date: 07/01/23 PRECAUTIONS: Fall, standard, activity as tolerated. SUBJECTIVE: Patient reports feeling ok, once ambulating patient reports significant pain in the right hip. OBJECTIVE: IV attached to Left brachium, pichardo catheter in place, sitting up in recliner with feet down, agreeable to therapy. ? PAIN: Reports pain into right groin which worsens with ambulation. Also reports back pain. VITALS: monitored by nursing staff. ? Therapeutic Exercises (37182k4): Direct one-on-one instruction in therapeutic exercises to develop strength, endurance, range of motion and flexibility. Exercises: HEP established and reviewed as outlined below: Access Code: [email or web address] URL: [email or web address] Date: 07/01/2023 Prepared by: Stephanie Yoder Exercises - Supine Pelvic Floor Contraction - 1 x daily - 7 x weekly - 3 sets - 10 reps - Supine Transversus Abdominis Bracing - Hands on Stomach - 1 x daily - 7 x weekly - 3 sets - 10 reps - Sidelying Clamshell with Pelvic Floor Contraction - 1 x daily - 7 x weekly - 3 sets - 10 reps - Supine Bridge with Pelvic Floor Contraction - 1 x daily - 7 x weekly - 3 sets - 10 reps Patient Education - What is Urinary Incontinence? - Get To Know Your Pelvic Floor- Female ?Ambulation ? Assistive Device: FWW ? Weight bearing: full Assist: standby assist (patient declined use of gait belt) ? Distance:? 100 feet, seated rest x2 ? Deviation: Decreased simone, decreased step height, decreased stride length. Patient demonstrates briefly how she walks without FWW, stating that it feels as though her brain isn't connected to her legs. Feels as though this may be in part due to an old back injury. Would like to work with a Physical Therapist to improve connection. Also notable without FWW, bilateral Trendelenburg sign present. ? Provided skilled instruction in proper exercise performance Provided skilled manual cues to facilitate proper muscle recruitment and/or form: Neuromuscular Re-education (57486w6): Activities that facilitate re-education of movement balance, posture, coordination, and proprioception or kinesthetic sense, requiring skilled tactile and verbal cues ? Exercises/techniques: Instructed patient on diaphragmatic breathing, pelvic floor exercises, and importance of fully relaxing after an isometric contraction. Patient verbalizes and demonstrates understanding. ASSESSMENT:? At end of treatment, patient laments that her Pichardo catheter will be removed soon and without it she has no continence. Advised patient that physical therapy can strengthen muscles in the pelvic floor, which can lead to increased continence. Patient appears excited about this thought. PLAN: Continue global strengthening per plan of care until patient discharges. Patient will benefit from HHPT for balance, core strengthening to support low back; patient should also consider following up outpatient with a pelvic health physical therapy specialist. TREATMENT CODE/TIME: 83650 Ther Ex 20 minutes beginning at 11:12, 24400 Neuro shakir 10 minutes beginning at 13:23
[2023-07-01 12:00] VITALS: BP 110/62; PULSE 65; RESP 17; TEMP 36.8; O2SAT 97
--- NOTE | 2023-07-01 12:33 | DSE_ITS ---
Date of service: 07/01/23 Time of Service: 12:34 DS: Diagnosis Discharge Diagnosis (1) Acute hepatic encephalopathy: Status: Acute Asessment and Plan: Her ammonia level was 68; unknown typical level. She was not grossly confused per admitting hospitalist. The following day she was A&O x 3 She endorsed missing just one day of her lactulose. She will resume her BID lactulose schedule. She has a PCP f/u on the of this month (2) Acute hip pain: Status: Acute Asessment and Plan: No fx on imaging. PT recommends ongoing PT and pt has accepted home health. (3) Hypokalemia: Status: Acute Asessment and Plan: Repleted. (4) Weakness: Status: Acute Asessment and Plan: Multiple comorbidities but her hip pain is the more acute issue causing her falls and weakness. Home health PT. (5) GALLAGHER (nonalcoholic steatohepatitis): Asessment and Plan: Recommending PCP discussing the possibility of using a GLP-1 agonist injectable for diabetic control and weight loss. (6) Type 2 diabetes mellitus: Asessment and Plan: Cont metformin and as above in #6. (7) CHF (congestive heart failure): Asessment and Plan: No acute exacerbation. Cont torsemide and carvedilol. (8) Chronic low back pain: Asessment and Plan: She uses oxycodone as outpt. Discharge Plan Disposition Patient Disposition: Home W/Home Health Services Condition: Fair Discharge Details Reason For Visit: Hepatic Encephalopathy, GALLAGHER, Right Hip Pain,Falls Admit Date/Time: 06/30/23 05:14 Admit Provider: Devin Carlson Attending Provider: Devin Carlson Primary Care Provider: Jefe Coffey Hospital Course Hospital Course: This is 68-year-old morbidly obese female patient who has diabetes and Gallagher who presented to the ED after multiple falls at home requiring a call out to help with lifting.? Her and she both have obesity and cirrhosis with her having more severe hepatic encephalopathy on treatment.? Patient has recently been started on lactulose for her ammonia levels which were elevated with hepatic encephalopathy.? She has CHF and spironolactone was recently discontinued though she does have slightly low potassium in the ED and magnesium will be checked.? She has had no symptoms of worsening CHF or shortness of breath.? She did injure her right hip with slight pain which prompted her visit to the ED as well.? Presented being around because of her increased confusion with hepatic encephalopathy and a question of not being certain she is taking her lactulose as ordered by her PCP.? She is slightly confused and offers no further history.? See ED report for review.? She is a full code. See Diagnosis ? PCP f/u in 1-2 weeks Home Meds and New Rx's Prescriptions: New polyethylene glycol 3350 17 gram Powder In Packet 17 g PO DAILY PRN PRN (Reason: Constipation) Qty: 0 0RF Continued ondansetron 4 mg tablet,disintegrating 4 mg PO Q8H PRN doxepin 10 mg capsule 10 mg PO QHS lactulose 10 gram/15 mL solution 30 g PO BID carvedilol 3.125 mg tablet 6.25 mg PO BID Rx Instructions: must administer with a meal/food oxycodone 5 mg tablet 5 mg PO Q6H PRN metformin 1,000 mg Tablet 1,000 mg PO BID ropinirole 2 mg Tablet 2 mg PO BID zolpidem 5 mg Tablet 5 mg PO QHS PRN nystatin 100,000 unit/gram Powder 6,000,000 unit topical TID Qty: 60 0RF Rx Instructions: apply to reddened skin folds torsemide 20 mg tablet 40 mg PO DAILY Qty: 30 0RF fluoxetine 40 mg capsule 40 mg PO DAILY Patient Comments: pt states not taking it right now pantoprazole 40 mg Tablet,Delayed Release (Dr/Ec) 40 mg PO BID Discontinued spironolactone 25 mg tablet 100 mg PO DAILY Patient Comments: patient reports she does not take this anymore Discharge Instructions Activity:: Activity as Tolerated Equipment/Supplies:: No Equipment Needed Diet:: Resume home diet Discharge Orders Discharge Orders: Discharge Order (Routine); Ordered 07/01/23 Ordered By: Fito Paulino DS: Summary Time Spent with Patient providing and/or coordinating discharge services: Greater than 30 minutes Status at Discharge Functional status at discharge: uses cane/walker Overall status at discharge: patient is progressing back to baseline Mental Status: mental status grossly normal Speech and Movement: speech clear Mood: congruent mood Affect: normal affect Exam Narrative Exam Narrative: General: Pt is sitting up in bed. Pleasant and conversant morbidly obese female HEENT:Sclera clear w/o icterus. MMM Neck: No JVD. Lungs: clear to auscultation percussion with no focalizing rales or rhonchi. Heart: Regular rate and rhythm with 3/6 Abdomen: Obese, soft and nontender to palpation with no palpable hepatosplenomegaly. Bowel sounds positive all quadrants. Extremities: Obese legs with nonpitting edema, well-healed TKA scars over both knees, right hip has no exquisite tenderness to passive range of motion with extension and flexion as well as internal and external rotation. Slightly tender to palpation over the pelvic area. Straight leg test negative on the right. Skin: Pale, warm and dry. Neuro: No focal motor deficits or tremor. Psych: Pts mood is appropriate. Psych Mental Status: mental status grossly normal Speech and Movement: speech clear Mood: congruent mood Affect: normal affect DS: Data Vitals/I&O Vitals and I&O: Vital Signs Temperature 36.8 C 07/01/23 12:00 Temperature Source Tympanic 07/01/23 12:00 Pulse 65 07/01/23 12:00 Pulse Rhythm Regular 07/01/23 09:04 Pulse 72 06/29/23 21:40 Respiratory Rate 17 07/01/23 12:00 Respiratory Effort Normal, Non-Labored 07/01/23 09:04 Respiratory Depth Normal 07/01/23 09:04 Respiratory Pattern Normal 07/01/23 09:04 Blood Pressure 110/62 07/01/23 12:00 Blood Pressure Mean 56 06/29/23 21:30 Blood Pressure Position Supine 06/29/23 17:52 Pulse Oximetry 97 07/01/23 12:00 Oxygen Delivery Method Room Air 07/01/23 12:00 Oxygen Flow Rate 0 07/01/23 12:00 Pain Level 3 07/01/23 12:00 Comment pain with ambulation had been using a cane but now needs a walker 06/29/23 17:52 Intake & Output 06/30/23 07/01/23 07/01/23 23:59 11:59 23:59 Output Total 3500 / 6150 600 / 600 Balance -3500 / -6150 -600 / -600 Weight 102.6 kg Output: Urine 3500 / 6150 600 / 600 Other: Urine Color Yellow Yellow Urine Appearance Clear Clear Stool Size Large Stool Characteristics Liquid Data Completed and Pending Labs on day of discharge: Labs from last 24 hours 07/01/23 07/01/23 07:30 07:30 WBC 3.20 L RBC 3.41 L Hgb 8.9 L Hct 28.5 L MCV 84 MCH 26.1 L MCHC 31.2 L RDW 19.6 H Plt Count 79 L MPV 10.1 Immature Gran % 0.0 Neutrophils % 47.7 Lymphocytes % 31.3 Monocytes % 13.8 Eosinophils % 6.3 Basophils % 0.9 Nucleated RBC % 0.0 Absolute Neutrophils 1.53 Absolute Lymphocytes 1.00 L Absolute Monocytes 0.44 Absolute Eosinophils 0.20 Absolute Basophils 0.03 RBC Morphology See Below Hypochromasia 2+ Magnesium 1.5 L Preliminary micro results at discharge 06/29/23 18:49 Blood Culture - Preliminary Blood NO GROWTH 24 HOURS 06/29/23 18:33 Blood Culture - Preliminary Blood NO GROWTH 24 HOURS PFSH All Active Problems Hypokalemia (Acute) Acute hepatic encephalopathy (Acute) Weakness (Acute) Acute hip pain (Acute) Hypersomnia (Acute) UTI (urinary tract infection) (Acute) Hypothermia (Acute) Transient neurologic deficit (Acute) Anemia due to gastrointestinal blood loss (Acute) Hyperglycemia due to type 2 diabetes mellitus (Acute) No-show for appointment (Acute) Submucosal neoplasm of stomach (Acute) JAYDEN (obstructive sleep apnea) (Chronic) Lung nodule (Acute) Biliary dyskinesia (Acute) Atypical angina (Acute) Acquired arteriovenous malformation (Acute) Medical History Anasarca Anemia Anxiety CHF (congestive heart failure) Chronic low back pain Cirrhosis Crohn's disease Depressive disorder Dyslipidemia GAVE (gastric antral vascular ectasia) Lesion of esophagus Lumbar spondylosis GALLAGHER (nonalcoholic steatohepatitis) Neoplasm of parotid gland Pituitary adenoma Restless legs Type 2 diabetes mellitus Surgical History History of hysterectomy History of sleeve gastrectomy History of total knee arthroplasty Family History Brother Cancer Lung Alcohol use disorder 2 older brothers Social History Smoking/Tobacco Use Status: Never Smoking risk assessment performed?: Yes Alcohol Intake: never Drug use: Never Substance use type: does not use Housing: house Current gender identity: female Do you feel safe at home: Yes Do you feel safe in your relationship?: Yes Additional Social history: Lives with Arslan, and son in [place]. [place]oved [place]. Has a dog and 7 pet birds. Time Spent with Patient Time Spent with Patient: <45 minutes Time was spent: preparing to see the patient(eg.review tests), obtaining and/or reviewing separately otained hiistory, referring, communicating with other health grounds caretaker, indepentently interpreting results, counseling the patient and care coordination
--- NOTE | 2023-07-01 13:43 | PDOC.CMDIS ---
Date of service: 07/01/23 Time of Service: 13:43 LACE Index Scoring Tool Questions: Length of Stay (in days): 1 Was the patient admitted via the E.D.?: Yes Comorbidities: Diabetes w/o Complication E.D. Visits: 5 Answers: Total Score: 9 Risk of Readmission: Low Risk Care Management Discharge Plan Reason for Hospitalization: hepatic encephalopathy Discharge Plan: Eli is discharged home via private vehicle with family. She will follow up with community providers and her discharge plan of care as instructed. Full [facility] services are ordered. Patient/Family Education Needs: Review discharge instructions, limitations, medications and plan to follow up with community providers. Discuss ask me three. Services Needed at Discharge: Home Health Care Services ([facility] RN,PT,OT,[employer])
--- NOTE | 2023-07-01 15:03 | PDOC.HHF2F_ITS ---
Home Health Referral Home Health Orders Clinical synopsis of why skilled professionals are needed: Pt was experiencing falls at home with one fall causing pain in her right hip. Imaging showed no fx or dislocation. She was noted to have some confusion. Her ammonia level was 68. She had missed a day of not taking her lactulose. Her mentation returned readily to base line; now back on her BID lactulose. PT recommending ongoing PT. Medical diagnosis necessitation home health referral: Soft tissue hip injury Encephalopathy d/t SALCIDO Registered Nurse: Check all that apply Instruct on new or changed medication(s)/assess compliance: Ordered (does not take medications as prescribed resulting in 2 hospitalizations that we know of) Physical Therapist: Check all that apply Increase strength & endurance for safe mobility at home: Ordered To design/establish home maintenance program: Ordered Fall reduction therapy program for patient with history of frequent falls: Ordered Home safety evaluation and teaching/gait training including stair management (if applicable): Ordered Occupational Therapist: Evaluate and treat for patient unable to perform ADL/IADL/self-care: Ordered Upper extremity strengthening, range and motion: Ordered Police Officer Booking: Assist with community resources: Ordered Assist with predatory animal exterminator care planning: Ordered Home Bound Status Requires the aid of supportive device (check all that apply): Walker Assistance of another person (Describe assistance and medical necessity): Hip injury causing gait instability Describe why leaving home would require a considerable and taxing effort: Safety Concerns: describe (Frequent falls / gait instability) Encounter Date and Reason: I certify that a FTF encounter for this patient was performed on July 01, 2023 and that such encounter was related to the primary reason the patient requires home health services. The encounter was conducted in the following manner: * By me as the certifying physician, WINDOWS SYSTEMS ARCHITECT, PA or * By an inpatient physician, WINDOWS SYSTEMS ARCHITECT or PA during an inpatient stay who communicated findings to me, Certification And Authentication I certify that I composed the above information based on my clinical judgment relating to this patient's medical condition and, if applicable, clinical findings communicated to me by the NPP or inpatient physician who performed the FTF encounter. Name of Provider that will be monitoring home health services: Fito Paulino
--- NOTE | 2023-07-03 11:43 | PT.INDS ---
PT Notes Visit Reasons: Hepatic Encephalopathy, SALCIDO, Right Hip Pain,Falls Inpatient Physical Therapy Discharge Summary Treatment Dates: 06/30/2023 - 07/01/23 Referring Doctor: Devin De La Cruz MD PT Orders: PT CONSULT: Evaluate Precautions: Fall risk Patient Profile/Admitting Diagnosis: 68-year-old female admitted for medical management of hepatic encephalopathy along with right hip pain and falls. She participated in 2 sessions of PT intervention over the course of 2 days. They were able to demonstrate safety and mobility sufficient to allow for safe return home with PT. This document serves as a summary of care. No PT services were provided on this date. Social History/Home Situation: Lives in a private home with her are both retired. Her bed room and bath on the second floor and she uses a stair climber assist. She has a combo shower bath but generally sponge bathes. She is awaiting to have a walk-in shower installed. Current Functional Limitations: Independent with her ADLs. Equipment Owned/DME: Cane and walker Subjective: none obtained Objective: ROM: Her active shoulder motion is full and painless movement. She suffered a left clavicular fracture in January and has a palpable callus over the proximal one third which is nontender. Bilateral elbow, forearm, left hip, talocrural and subtalar movements are full and painless movement. Bilateral knee motion is limited to approximately 115 degrees of flexion, due to her bilateral TKAs, but nonpainful Her active assistive right hip motion is nonirritable with some endrange discomfort with internal rotation at 30 degrees throughout the lateral aspect of the hip. Her leg length appears symmetrical in the right leg is not excessively externally rotated or shortened. She has negative scour's test Strength: Has full motorical control throughout and her strength is generally rated +4/5 including supine straight leg raise on the right. She has mild tenderness palpation over the greater trochanter of the right hip and to lesser degree throughout the mid thoracic paraspinals Neuro: Reflexes symmetrical, sensations intact to light touch and has full motor function. Fingertips to nose is accurate without ataxia and rapid repetitive arm movements are unimpaired Bed Mobility/Transfers: Independent bed mobility Ambulation ?Assistive Device: FWW ?Weight bearing: full ?Assist: standby assist (patient declined use of gait belt) ?Distance:? 100 feet, seated rest x2 ?? Balance: Static Sitting: normal Dynamic Sitting: normal Static Standing: fair Dynamic Standing:fair Assessment: Patient is a 68year old female referred to physical therapy services with the diagnosis of hepatic encephalopathy and multiple falls over the past 2 weeks resulting in posterior lateral right hip discomfort. Patient presented with mobility impairments related to above issues. She participated in 2 sessions of PT intervention over the course of 2 days. She was able to demonstrate safety and mobility sufficient to allow for safe return home with PT. Goals: Goals X1 week 1. Supine-Sit independent (met) 2. Sit-Supine independent (met) 3. Sit-Stand independent (met) 4. Stand-Sit independent (met) 5. Bed-Chair independent (progressing toward) 6. Chair-Bed independent (progressing toward) 7. Gait independent with an FW W weightbearing as tolerated on right lower extremity for greater than 200 feet (progressing toward) 8. Stairs climb for 5 steps with a railing (progressing toward) 9. Independent with home exercise program (met) 10. Balance standing with an assistive device (met) Plan of Care/Treatment Plan: D/C from PT in acute care setting. DISCHARGE RECOMMENDATIONS: Home with HH PT TREATMENT CODE/TIME: none Kelly Neal, PT, DPT [facility]
== END 2023-07-01 14:59 | disposition home health service (06) | DRG 442 ==
LOC: ER 21:17 → MS 23:06
PROVIDERS: Family Medicine; Admitting Provider Family Medicine; Emergency Provider Physician Assistant; PCP Family Medicine; Visit Provider Family Medicine
DX: K76.82 Hepatic encephalopathy (principal); I50.32 Chronic diastolic (congestive) heart failure; Z68.41 Body mass index [BMI] 40.0-44.9, adult; M25.551 Pain in right hip; R53.1 Weakness; E87.6 Hypokalemia; K75.81 Nonalcoholic steatohepatitis (NASH); D50.0 Iron deficiency anemia secondary to blood loss (chronic); K74.60 Unspecified cirrhosis of liver; Z79.84 Long term (current) use of oral hypoglycemic drugs; G47.33 Obstructive sleep apnea (adult) (pediatric); R91.1 Solitary pulmonary nodule; M54.50 Low back pain, unspecified; G25.81 Restless legs syndrome; E78.5 Hyperlipidemia, unspecified; F32.A Depression, unspecified; G89.29 Other chronic pain; F41.9 Anxiety disorder, unspecified; K31.819 Angiodysplasia of stomach and duodenum without bleeding; R29.6 Repeated falls; W19.XXXA Unspecified fall, initial encounter; M47.816 Spondylosis without myelopathy or radiculopathy, lumbar region; E66.01 Morbid (severe) obesity due to excess calories
CPT/HCPCS: 36415; 51702; 80053; 85027; 87040; 93005; 97110; 97112; 97162; 99285; 70450; 71045; 74177; 81003; 82140; 83605; 83735; 84443; 84484; 85025; 85610; 93010; 99223; 99239; J3475; J3490

== ENCOUNTER 2023-11-09 19:17 | Observation (INO) | payer MEDICARE, SELFPAY ==
[2023-11-09] VITALS (26 sets, daily range): BP systolic 116–149; BP diastolic 32–71; PULSE 81–96; RESP 13–31; TEMP 36.2–36.8; O2SAT 95–99
--- NOTE | 2023-11-09 19:30 | RT.EKG_ITS ---
APPROVED REPORT Exam: Resting ECG Reason for Exam: SOB Patient Location: E HR:83 bpm ECG Measurements Heart Rate 83 AXIS AZ 216 P 44 QRSd 97 QRS 44 QT 406 T 72 QTc 477 Conclusion Sinus rhythm Normal axis non specific ST depression
[2023-11-09 20:19] LABS: Abs Immature Grans 0.02 10^3/uL (0.0-0.06); Absolute Basophil Count 0.04 10^3/uL (0.0-0.2); Absolute Eosinophil Count 0.19 10^3/uL (0.0-0.7); Absolute Lymphocyte Count 0.74 10^3/uL (1.2-3.4); Absolute Monocyte Count 0.39 10^3/uL (0.1-0.8); Basophils % 1.1; Eosinophils % 5.3; HCT 21.5 % (36.0-46.0); Immature Grans % 0.6; Lymphocytes % 20.7; MCH 21.1 pg (27.0-33.0); MCHC 27.9 % (32.0-36.0); MCV 76 fL (80-95); MPV 11.2 fL (8.0-11.0); Monocytes % 10.9; Neutrophils % 61.4; RBC 2.84 10^6/uL (3.93-5.22); RDW 15.1 % (11.7-14.6); WBC 3.58 10^3/uL (4.4-10.8)
[2023-11-09 20:29] LABS: INR 1.2 (0.9-1.1); Prothrombin Time 11.9 sec (9.1-11.1)
[2023-11-09 20:32] LABS: Bilirubin Negative (Negative); Blood Negative (Negative); Clarity Clear (Clear); Glucose 500 mg/dL (Negative); Ketones Negative (Negative); Leukocyte Esterase Negative (Negative); Nitrite Negative (Negative); Urobilinogen 0.2 mg/dL (Up to 0.2)
[2023-11-09 20:32] LABS: Ammonia 31 umol/L (11-32)
[2023-11-09 20:33] LABS: Platelet Count 84 10^3/uL (130-400)
[2023-11-09 20:34] LABS: Diff Comment RBC Morph Reviewed; Hypochromasia 1+; Microcytosis 1+
[2023-11-09 20:41] LABS: ALT 27 U/L (14-59); AST 43 U/L (15-37); Albumin 2.6 g/dL (3.4-5.0); Alkaline Phosphatase 238 U/L (46-116); Anion Gap 6.7 mmol/L (3-11); BUN 18 mg/dL (7-18); Bilirubin, Total 1.1 mg/dL (0.2-1.0); CO2 28.3 mmol/L (21.0-32.0); CREATININE 0.8 mg/dL (0.55-1.02); Calcium 8.6 mg/dL (8.5-10.1); Chloride 105 mmol/L (98-107); Estimated GFR 80.21 (mL/min/1.73m2); Glucose 242 mg/dL (74-106); Lipase 45 U/L (16-77); Magnesium 1.9 mg/dL (1.8-2.4); NT-proBNP 147 pg/mL (<300); Potassium 4.5 mmol/L (3.5-5.1); Sodium 140 mmol/L (136-145); Total Protein 5.9 g/dL (6.4-8.2); Troponin I < 50 ng/L (<or=60)
--- NOTE | 2023-11-09 21:01 | W.PM.HP.N ---
Date of service: 11/09/23 Time of Service: 21:01 Assessment and Plan Assessment and plan (1) Anemia: Status: Chronic Assessment and plan: No symptoms of overt bleeding. Hemodynamically stable i.e. no hypotension or tachycardia. Will admit overnight for blood transfusions and recheck her CBC in the a.m.. continue protonix 40 mg bid, check iron, B12, folate studies; get reports from [facility] and set her up for follow up w/ them for repeat EGD; she needs to follow up w/ hematology from [facility] to resume iron infusions. Qualifiers: Anemia type: iron deficiency Iron deficiency anemia type: chronic blood loss Qualified Code(s): D50.0 - Iron deficiency anemia secondary to blood loss (chronic) (2) History of peptic ulcer disease: Assessment and plan: continue protonix 40 mg bid, consider addition of carafate (3) SALCIDO (nonalcoholic steatohepatitis): Assessment and plan: continue lactulose, aggressive treament of DM, lipids, (not currently on a statin; will check lipid profile, check fructosamine (glychemoglobin likely to not be accurate in setting of anemia). (4) Type 2 diabetes mellitus: Assessment and plan: continue metformin and Jardiance, will monitor glucose AC/HS and cover w/ low dose novolog per sliding scale Qualifiers: Diabetes mellitus complication status: without complication Diabetes mellitus correction insulin use: without correction use Qualified Code(s): E11.9 - Type 2 diabetes mellitus without complications (5) Cirrhosis: Qualifiers: Hepatic cirrhosis type: other cirrhosis Qualified Code(s): K74.69 - Other cirrhosis of liver (6) Hypertensive disorder: Assessment and plan: continue antihypertensives; currently on Entresto for CHF, although her last echocardiogram was not consistent w/ either HFPEF nor HFREF (normal LV and RV systolic function, size and wall thickness, LVEF 60% w/ no RWMA and the only diastology parameter that was positive was her TR velocity of 3.21 m/s (abormal >2.8), her E/A 1.6, e' medial 11.6 cm/s, e' lateral 12.4 cm/s, average E/e' 10.75, PRISCILLA 26.3 mL/m2 (abnormal >34). I suspect her pulmonary HTN is secondary to her JAYDEN. If she has varices then she ought to be on a BB. Qualifiers: Hypertension type: primary hypertension Qualified Code(s): I10 - Essential (primary) hypertension (7) JAYDEN (obstructive sleep apnea): Status: Chronic Assessment and plan: she did not bring in her BIPAP. She is followed in the sleep clinic and is suppose to be on BIPAP but could not tolerate the settings (Imax25 cm, Daniel 16 cm w/ PS 4 cm) so she was put back on nasal CPAP 12-20 cm (8) DVT prophylaxis: Status: Acute Assessment and plan: not a candidate for chemoprophylaxis, I have ordered SCD and TEDS. History of Present Illness History of Present Illness Chief Complaint: fatigue, dyspnea Narrative: 68 yr female w/ PMH of [facility] who presented to the E.D. w/ symptoms of increasing fatigue and exertional dyspnea. She was found to be severly anemic w/ HB of 6 gm. She denies any overt melena (but notes that her stools have had a dark stripe through the middle of her stools, she denies any hematochezia or hematemesis but notes abdominal bloating. She reports that she had recent labs done at [facility] and was told that she is anemic. She also complains of insomnia and pruritus. Her other medical conditions include HTN and DM (she takes metformin and Jardiance) and CHF, cirrhosis and hepatic encephalopathy, pancreatitis, Crohn's disease, gastric antral vascular ectasia, JAYDEN, and RLS. She reportedly is suppose to be getting iron infusions for her anemia. Labs were remarkable for Hb 6 gm, w/ microcytic indices, leukopenia 3200 w/ relative lymphopenia 1000, normal electrolytes, anion gap, and BUN and creatinine w/ relatively unremarkable LFT except alkaline phosphatase 238, total bilirubin 1.1, total protein 5.9, albumin 2.6, normal lipase, normal UA, protime 11.9 (INR 1.2), ammonia 31. The hospitalist service was asked to admit her for blood transfusions. She was typed and cross matched while in the E.D. for 1 unit of PRBC. Patient is followed by her PCP, Dr. Jefe Coffey (patient formerly lived in [place] until about a year ago when she moved to [place], she also is suppose to be followed by [facility] and by Hematology at [facility] in [facility]. She has not had iron infusions for about one year. She last had an EGD in April 2023 at [facility] Review of Systems All systems reviewed & are unremarkable except as noted in HPI and below Constitutional Constitutional: Reports daytime sleepiness, Reports difficulty sleeping, Reports fatigue, Reports lethargy and Reports malaise Eyes Eyes: Reports blurry vision ENT Ears, Nose, Mouth, and Throat: Reports system reviewed and no additional complaints, except as documented Cardiovascular Cardiovascular: Reports system reviewed and no additional complaints, except as documented and Reports dyspnea on exertion Respiratory Respiratory: Reports dyspnea on exertion Gastrointestinal Gastrointestinal: Reports as per HPI Genitourinary Genitourinary: Reports system reviewed and no additional complaints, except as documented Musculoskeletal Musculoskeletal: Reports back pain Integumentary/Breasts Skin/Breast: Reports system reviewed and no additional complaints, except as documented Neurologic Neurologic: Reports system reviewed and no additional complaints, except as documented Psychiatric Psychiatric: Reports system reviewed and no additional complaints, except as documented Endocrine Endocrine: Reports system reviewed and no additional complaints, except as documented and Reports fatigue Hematologic/Lymphatic Hematologic/Lymphatic: Reports system reviewed and no additional complaints, except as documented Allergic/Immunologic Allergic/Immunologic: Reports other (diffuse itching) [facility] All Active Problems (Updated 11/09/23 @ 23:34 by Gama Gray MD) History of oophorectomy, unilateral (Acute) DVT prophylaxis (Acute) Encephalopathy, hepatic (Acute) Anemia (Chronic) Generalized pruritus (Acute) Weakness (Acute) Acute hip pain (Acute) Hypersomnia (Acute) Hyperglycemia due to type 2 diabetes mellitus (Acute) No-show for appointment (Acute) Submucosal neoplasm of stomach (Acute) JAYDEN (obstructive sleep apnea) (Chronic) Lung nodule (Acute) Biliary dyskinesia (Acute) Atypical angina (Acute) Acquired arteriovenous malformation (Acute) Medical History (Updated 11/09/23 @ 23:34 by Gama Gray MD) Dermoid cyst History of peptic ulcer disease Osteoarthritis Pituitary cyst Pancreatitis Hypertensive disorder Hepatic encephalopathy Excess skin of eyelid Edema Dyspnea Atrophy of vagina Atrophic vaginitis Actinic keratosis GAVE (gastric antral vascular ectasia) Pituitary adenoma Restless legs Neoplasm of parotid gland Lumbar spondylosis Lesion of esophagus Dyslipidemia Depressive disorder Crohn's disease Chronic low back pain Anxiety Anemia Cirrhosis Type 2 diabetes mellitus SALCIDO (nonalcoholic steatohepatitis) CHF (congestive heart failure) Anasarca Surgical History (Updated 11/09/23 @ 23:35 by Gama Gray MD) History of rotator cuff surgery bilateral History of total knee arthroplasty bilateral History of sleeve gastrectomy History of hysterectomy Family History Brother Cancer Lung Alcohol use disorder 2 older brothers Social History Smoking/Tobacco Use Status: Never Smoking risk assessment performed?: Yes Alcohol Intake: never Drug use: Never Substance use type: does not use Housing: apartment Current gender identity: female Do you feel safe at home: Yes Do you feel safe in your relationship?: Yes Additional Social history: Lives with Arslan, and son [place] [facility]. Moved from [place] in 2019. Has a dog and 7 pet birds. Meds Allergies and Home Medications Allergies Allergy/AdvReac Type Severity Reaction Status Date / Time Penicillins Allergy Severe Swelling/Ed Verified 11/09/23 19:28 sophie tramadol Allergy Severe Swelling/Ed Verified 11/09/23 19:28 sophie apricot Allergy Intermediate Hives Verified 11/09/23 19:28 ferrous sulfate Allergy Unknown Verified 11/09/23 19:28 raspberry Allergy Verified 11/09/23 19:28 vancomycin AdvReac Intermediate Other (See Verified 11/09/23 19:28 Comment) Home Medications Medication Instructions Recorded Confirmed Type metformin 1,000 mg tablet 1,000 mg PO BID 11/09/22 11/09/23 History ropinirole 2 mg tablet 2 mg PO BID 11/09/22 11/09/23 History pantoprazole 40 mg tablet,delayed 40 mg PO BID 12/15/22 11/09/23 History release oxycodone 5 mg tablet 5 mg PO Q6H PRN 01/23/23 11/09/23 History nystatin 100,000 unit/gram topical 6,000,000 unit topical TID #60 02/05/23 11/09/23 Rx powder grams doxepin 10 mg capsule 10 mg PO QHS 03/27/23 11/09/23 History ondansetron 4 mg disintegrating 4 mg PO Q8H PRN 03/27/23 11/09/23 History tablet fluoxetine 40 mg capsule 40 mg PO DAILY 05/18/23 11/09/23 History lactulose 10 gram/15 mL oral 30 g PO BID 06/26/23 11/09/23 History solution polyethylene glycol 3350 17 gram 17 g PO DAILY PRN PRN Constipation 07/01/23 11/09/23 Rx oral powder packet #0 ea empagliflozin 10 mg tablet 10 mg PO DAILY 10/08/23 11/09/23 History (Jardiance) sacubitril 24 mg-valsartan 26 mg 1 tab PO BID 10/08/23 11/09/23 History tablet (Entresto) torsemide 40 mg tablet 40 mg PO DAILY 10/08/23 11/09/23 History eszopiclone 1 mg tablet (Lunesta) 1 mg PO QHS 11/08/23 11/09/23 History fexofenadine 180 mg tablet 180 mg PO HS #30 tabs 11/08/23 11/09/23 Rx ([facility] Allergy) Exam Narrative Exam Narrative: Alert and oriented x4 HEENT: Atraumatic normocephalic, pupils equally round reactive to light and accommodation, extraocular motion intact, TMs intact, nares moist and patent without exudate or bleeding, oropharynx noninjected without exudate, teeth in good repair; conjunctivae pale Neck: Supple, nontender, without thyromegaly or lymphadenopathy or JVD. Normal carotid pulses Lungs: Clear to auscultation and percussion Heart: Regular rate and rhythm w/ grade 3 systolic murmur along the 2nd RICS but also heard along the LLSB Abdomen: slight distension, normal bowel sounds, nontender to palpation; questionable hepatomegaly but difficult to palpate d/t obesity, no bruits heard, she has scars from prior hysterectomy as well as prior lap choly; rectal exam performed w/ attendance of her nurse; normal rectal tone, no masses or hemorrhoids, stool dark brown but not black, soft and overtly heme positive on stool card Genitalia and rectal exam: Deferred Breasts: Deferred Extremities: Normal range of motion with normal strength. No peripheral cyanosis or edema. Normal pulses; she has scars over both knees c/w bilateral TKA Neurologic: Cranial nerves II through XII grossly within normal limits. Normal strength and sensation over the face trunk and extremities. No tremors or asterixis Results Labs 11/09/23 20:05 11/09/23 20:05 Labs: Laboratory Results - last 24 hr 11/09/23 11/09/23 20:05 20:25 WBC 3.58 L RBC 2.84 L Hgb 6.0 L* Hct 21.5 L MCV 76 L MCH 21.1 L MCHC 27.9 L RDW 15.1 H Plt Count 84 L MPV 11.2 H Immature Gran % 0.6 Neutrophils % 61.4 Lymphocytes % 20.7 Monocytes % 10.9 Eosinophils % 5.3 Basophils % 1.1 Nucleated RBC % 0.0 Absolute Neutrophils 2.20 Absolute Lymphocytes 0.74 L Absolute Monocytes 0.39 Absolute Eosinophils 0.19 Absolute Basophils 0.04 RBC Morphology See Below Hypochromasia 1+ Microcytosis 1+ PT 11.9 H INR 1.2 H Sodium 140 Potassium 4.5 Chloride 105 Carbon Dioxide 28.3 Anion Gap 6.7 BUN 18 Creatinine 0.8 Est GFR (CKD-EPI 2020) 80.21 Glucose 242 H Calcium 8.6 Magnesium 1.9 Total Bilirubin 1.1 H AST 43 H ALT 27 Alkaline Phosphatase 238 H Ammonia 31 Troponin I < 50 NT-Pro-B Natriuret Pep 147 Total Protein 5.9 L Albumin 2.6 L Lipase 45 Urine Color Yellow Urine Clarity Clear Urine pH 6.0 Ur Specific [place] 1.010 Urine Protein Negative Urine Ketones Negative Urine Blood Negative Urine Nitrite Negative Urine Bilirubin Negative Urine Urobilinogen 0.2 Ur Leukocyte Esterase Negative Urine Glucose 500 H Patient ABO/Rh O Positive Antibody Screen NEGATIVE Crossmatch See Detail Last Vital Signs Temp 36.7 C 11/09/23 19:20 Pulse 85 11/09/23 19:20 Resp 20 11/09/23 20:15 BP 133/41 L 11/09/23 19:20 Pulse Ox 97 11/09/23 19:20 Time Spent Time spent with Patient: 55-74 minutes Time was spent: preparing to see the patient(eg.review tests), obtaining and/or reviewing separately otained hiistory, ordering medications,tests, procedures, referring, communicating with other health in home caregiver, indepentently interpreting results, counseling the patient and care coordination
--- NOTE | 2023-11-09 21:16 | ED.GENADUL_ITS ---
HPI General Stated Complaint: GenMedical CHELA: 3 Date/Time Provider Initiated Documentation: 11/09/23 19:44. Limitations to Documentation: no limitations. Information obtained by: patient. HPI Narrative: 68-year-old female with past medical history including insomnia, diabetes, nonalcoholic liver disease, GI bleeding presents for evaluation of shortness of breath and itching. She reports that the symptoms of shortness of breath have significantly worsened today. She has shortness of breath on exertion. Worse when she lays flat. Denies any chest pain. Denies cough or fever. No known sick contacts. She reports that she was recently told that her iron levels are low and that she is supposed to get iron infusions, but she has not been getting them. She is worried that she has recurrence of GI bleeding. Denies any vomiting, hematemesis or abdominal pain. She states that her abdomen just feels bloated and she feels hungry all the time because eating food makes her stomach feel better. She denies any change in bowel. No bright red blood or melena. She reports that she has noted some confusion lately and just feels foggy. She is also reporting that she feels very itchy. She recently saw animal shelter clerk about this. She has tried Benadryl without relief. Related Data Home Medications Medication Instructions Recorded Confirmed metformin 1,000 mg tablet 1,000 mg PO BID 11/09/22 11/09/23 ropinirole 2 mg tablet 2 mg PO BID 11/09/22 11/09/23 pantoprazole 40 mg tablet,delayed 40 mg PO BID 12/15/22 11/09/23 release oxycodone 5 mg tablet 5 mg PO Q6H PRN 01/23/23 11/09/23 nystatin 100,000 unit/gram topical 6,000,000 unit topical TID #60 02/05/23 11/09/23 powder grams doxepin 10 mg capsule 10 mg PO QHS 03/27/23 11/09/23 ondansetron 4 mg disintegrating 4 mg PO Q8H PRN 03/27/23 11/09/23 tablet fluoxetine 40 mg capsule 40 mg PO DAILY 05/18/23 11/09/23 lactulose 10 gram/15 mL oral 30 g PO BID 06/26/23 11/09/23 solution polyethylene glycol 3350 17 gram 17 g PO DAILY PRN PRN Constipation 07/01/23 11/09/23 oral powder packet #0 ea empagliflozin 10 mg tablet 10 mg PO DAILY 10/08/23 11/09/23 (Jardiance) sacubitril 24 mg-valsartan 26 mg 1 tab PO BID 10/08/23 11/09/23 tablet (Entresto) torsemide 40 mg tablet 40 mg PO DAILY 10/08/23 11/09/23 eszopiclone 1 mg tablet (Lunesta) 1 mg PO QHS 11/08/23 11/09/23 fexofenadine 180 mg tablet 180 mg PO HS #30 tabs 11/08/23 11/09/23 (Uyen Allergy) Previous Rx's Medication Instructions Recorded nystatin 100,000 unit/gram topical 6,000,000 unit topical TID #60 02/05/23 powder grams polyethylene glycol 3350 17 gram 17 g PO DAILY PRN PRN Constipation 07/01/23 oral powder packet #0 ea fexofenadine 180 mg tablet 180 mg PO HS #30 tabs 11/08/23 (Uyen Allergy) Allergies Allergy/AdvReac Type Severity Reaction Status Date / Time Penicillins Allergy Severe Swelling/Ed Verified 11/09/23 19:28 sophie tramadol Allergy Severe Swelling/Ed Verified 11/09/23 19:28 sophie apricot Allergy Intermediate Hives Verified 11/09/23 19:28 ferrous sulfate Allergy Unknown Verified 11/09/23 19:28 raspberry Allergy Verified 11/09/23 19:28 vancomycin AdvReac Intermediate Other (See Verified 11/09/23 19:28 Comment) PFSH All Active Problems (Updated 11/09/23 @ 21:26 by Tonya Bermeo MD) Encephalopathy, hepatic (Acute) Anemia (Chronic) Generalized pruritus (Acute) Weakness (Acute) Acute hip pain (Acute) Hypersomnia (Acute) UTI (urinary tract infection) (Acute) Hypothermia (Acute) Transient neurologic deficit (Acute) Anemia due to gastrointestinal blood loss (Acute) Hyperglycemia due to type 2 diabetes mellitus (Acute) No-show for appointment (Acute) Submucosal neoplasm of stomach (Acute) JAYDEN (obstructive sleep apnea) (Chronic) Lung nodule (Acute) Biliary dyskinesia (Acute) Atypical angina (Acute) Acquired arteriovenous malformation (Acute) Medical History Osteoarthritis Pituitary cyst Pancreatitis Hypertensive disorder Hepatic encephalopathy Excess skin of eyelid Edema Dyspnea Atrophy of vagina Atrophic vaginitis Actinic keratosis GAVE (gastric antral vascular ectasia) Pituitary adenoma Restless legs Neoplasm of parotid gland Lumbar spondylosis Lesion of esophagus Dyslipidemia Depressive disorder Crohn's disease Chronic low back pain Anxiety Anemia Cirrhosis Type 2 diabetes mellitus SALCIDO (nonalcoholic steatohepatitis) CHF (congestive heart failure) Anasarca Surgical History History of total knee arthroplasty History of sleeve gastrectomy History of hysterectomy Family History Brother Cancer Lung Alcohol use disorder 2 older brothers Social History Smoking/Tobacco Use Status: Never Smoking risk assessment performed?: Yes Alcohol Intake: never Drug use: Never Substance use type: does not use Housing: house Current gender identity: female Do you feel safe at home: Yes Do you feel safe in your relationship?: Yes Additional Social history: Lives with Arslan, and son in [place]. Moved from [place] in 2020. Has a dog and 7 pet birds. Exam Narrative Exam Narrative: Review of Systems: All systems reviewed & are unremarkable except as noted in HPI and below Well-developed, no acute distress NACT PERRL, normal conjunctiva , no icterus RRR + murmur Unlabored respiratory effort, clear breath sounds bilaterally, no hypoxia Nondistended abdomen , nontender Extremities w/o deformity, no cyanosis, + Edema bilaterally lower extremities No rashes or lesions. no focal neurologic deficits Appropriate mood and affect Course Vital Signs Vital signs: Vital Signs Temperature 36.7 C 11/09/23 19:20 Pulse 85 11/09/23 19:20 Respiratory Rate 18 11/09/23 19:20 Blood Pressure 133/41 L 11/09/23 19:20 Pulse Oximetry 97 11/09/23 19:20 Temperature 36.7 C 11/09/23 19:20 Temperature Source Skin 11/09/23 19:20 Pulse 85 11/09/23 19:20 Respiratory Rate 20 11/09/23 20:15 Respiratory Effort Short of Breath 11/09/23 20:15 Respiratory Depth Normal 11/09/23 20:15 Respiratory Pattern Normal 11/09/23 20:15 Blood Pressure 133/41 L 11/09/23 19:20 Blood Pressure Position Sitting 11/09/23 19:20 Pulse Oximetry 97 11/09/23 19:20 Oxygen Delivery Method Room Air 11/09/23 19:20 Oxygen Flow Rate 0 11/09/23 19:20 Pain Level 0 11/09/23 19:20 Lab/Test Results Lab/Test Results: Laboratory Tests Range/Units 11/09/23 11/09/23 20:05 20:25 WBC (4.4-10.8) 10^3/uL 3.58 L RBC (3.93-5.22) 10^6/uL 2.84 L Hgb (11.2-15.7) g/dL 6.0 L* Hct (36.0-46.0) % 21.5 L MCV (80-95) fL 76 L MCH (27.0-33.0) pg 21.1 L MCHC (32.0-36.0) % 27.9 L RDW (11.7-14.6) % 15.1 H Plt Count (130-400) 10^3/uL 84 L MPV (8.0-11.0) fL 11.2 H Immature Gran % 0.6 Neutrophils % 61.4 Lymphocytes % 20.7 Monocytes % 10.9 Eosinophils % 5.3 Basophils % 1.1 Nucleated RBC % (0.0-0.3) % 0.0 Absolute Neutrophils (1.2-6.7) 10^3/uL 2.20 Absolute Lymphocytes (1.2-3.4) 10^3/uL 0.74 L Absolute Monocytes (0.1-0.8) 10^3/uL 0.39 Absolute Eosinophils (0.0-0.7) 10^3/uL 0.19 Absolute Basophils (0.0-0.2) 10^3/uL 0.04 RBC Morphology See Below Hypochromasia 1+ Microcytosis 1+ PT (9.1-11.1) sec 11.9 H INR (0.9-1.1) 1.2 H Sodium (136-145) mmol/L 140 Potassium (3.5-5.1) mmol/L 4.5 Chloride (98-107) mmol/L 105 Carbon Dioxide (21.0-32.0) mmol/L 28.3 Anion Gap (3-11) mmol/L 6.7 BUN (7-18) mg/dL 18 Creatinine (0.55-1.02) mg/dL 0.8 Est GFR (CKD-EPI 2020) (mL/min/1.73m2) 80.21 Glucose (74-106) mg/dL 242 H Calcium (8.5-10.1) mg/dL 8.6 Magnesium (1.8-2.4) mg/dL 1.9 Total Bilirubin (0.2-1.0) mg/dL 1.1 H AST (15-37) U/L 43 H ALT (14-59) U/L 27 Alkaline Phosphatase (46-116) U/L 238 H Ammonia (11-32) umol/L 31 Troponin I (<or=60) ng/L < 50 NT-Pro-B Natriuret Pep (<300) pg/mL 147 Total Protein (6.4-8.2) g/dL 5.9 L Albumin (3.4-5.0) g/dL 2.6 L Lipase (16-77) U/L 45 Urine Color (Yellow) Yellow Urine Clarity (Clear) Clear Urine pH (5-8) 6.0 Ur Specific [place] (1.005-1.025) 1.010 Urine Protein (Negative) mg/dL Negative Urine Ketones (Negative) mg/dL Negative Urine Blood (Negative) Negative Urine Nitrite (Negative) Negative Urine Bilirubin (Negative) Negative Urine Urobilinogen (Up to 0.2) mg/dL 0.2 Ur Leukocyte Esterase (Negative) Negative Urine Glucose (Negative) mg/dL 500 H Patient ABO/Rh O Positive Antibody Screen NEGATIVE Crossmatch See Detail Medical Decision Making Emergent evaluation of shortness of breath, pruritus, confusion. Initial differential includes anemia, GI bleeding, liver failure, hepatic encephalopathy. The patient does not have any objective findings of neurologic deficit or confusion. She is hemodynamically stable and not hypoxic. She does not have any abdominal pain and does not endorse any bright red blood per rectum or melena. She reports a known history of gastric ulcer bleeding. She is not compliant with the amount of lactulose she is supposed to take daily. It sounds like she is also noncompliant with iron infusions. Initial plan for lab work, imaging and likely admission. Labs reviewed. New anemia of 6 and 21. Patient has been typed crossed and consented for blood transfusion. Of blood transfusion has been ordered. She has some signs of liver dysfunction with a slightly elevated INR, slightly elevated bilirubin, but not overt liver failure. Her ammonia level is at the upper limit of normal. Given her medical comorbidities and symptoms, will admit to the hospital for further management Medical Records Medical records reviewed: Yes I reviewed the patient's medical records. Lab Data Lab results reviewed: Yes I reviewed the patient's lab results. ECG Data Attestation: I personally reviewed and interpreted this ECG (s) as follows: Interpretation: Sinus 83, no significant ST segment changes Quality:SDME Health Related Social Needs: No Data to Display Critical Care Time Critical Care Time Critical Care Time: Yes Total Critical Care Time: 34 Attestation: CRITICAL CARE Upon my evaluation, this patient had a high probability of imminent or life- threatening deterioration due to anemia, liver dysfunction which required my direct attention, intervention, and personal management. I have personally provided 34 minutes of critical care time exclusive of time spent on separately billable procedures. Time includes review of laboratory data, radiology results, discussion with consultants, and monitoring for potential decompensation. Interventions were performed as documented above Discharge Plan Disposition Patient Disposition: Admit to [facility] Discharge Details Chief Complaint: GenMedical Clinical Impression: Anemia, Hyperglycemia due to type 2 diabetes mellitus, Generalized pruritus, Encephalopathy, hepatic Primary Care Provider: Jefe Coffey ED Provider: Tonya Bermeo Home Meds and New Rx's Prescriptions: No Action ondansetron 4 mg tablet,disintegrating 4 mg PO Q8H PRN doxepin 10 mg capsule 10 mg PO QHS lactulose 10 gram/15 mL solution 30 g PO BID eszopiclone [Lunesta] 1 mg tablet 1 mg PO QHS fexofenadine [Uyen Allergy] 180 mg tablet 180 mg PO HS Qty: 30 2RF oxycodone 5 mg tablet 5 mg PO Q6H PRN torsemide 40 mg tablet 40 mg PO DAILY Jardiance 10 mg tablet 10 mg PO DAILY Entresto 24-26 mg tablet 1 tab PO BID metformin 1,000 mg Tablet 1,000 mg PO BID ropinirole 2 mg Tablet 2 mg PO BID nystatin 100,000 unit/gram Powder 6,000,000 unit topical TID Qty: 60 0RF Rx Instructions: apply to reddened skin folds fluoxetine 40 mg capsule 40 mg PO DAILY Patient Comments: pt states not taking it right now pantoprazole 40 mg Tablet,Delayed Release (Dr/Ec) 40 mg PO BID polyethylene glycol 3350 17 gram Powder In Packet 17 g PO DAILY PRN PRN (Reason: Constipation) Qty: 0 0RF
[2023-11-09] MEDS: diphenhydrAMINE 25 MG CAP PO (21:38)
[2023-11-09] MEDS: Acetaminophen 325 MG TAB 650 MG PO (21:38)
[2023-11-09 22:26] LABS: Lab Add On Test DONE
[2023-11-09 22:35] LABS: Lab Add On Test DONE
[2023-11-09 22:39] LABS: Reticulocyte 1.8 % (0.5-2.4)
[2023-11-09 22:47] LABS: Iron 14 ug/dL (50-170); Total Iron Binding Capacity 436 ug/dL (250-450); Transferrin Sat 3 % (15-50)
[2023-11-09 23:01] LABS: Ferritin 12 ng/mL (8-252)
[2023-11-09 23:14] LABS: Folate 18.1 ng/mL (8.6-20.0); Vitamin B12 863 pg/mL (193-986)
[2023-11-09 23:19] LABS: LDH 263 U/L (81-234)
[2023-11-09] MEDS: Normal Saline Flush 10 ML SYR IVP (23:22)
[2023-11-09] MEDS: Pantoprazole 40 MG VIAL IVP (23:23)
[2023-11-09] MEDS: Lactulose 20 GM/30 ML CUP 30 GM PO (23:41)
[2023-11-10] VITALS (11 sets, daily range): BP systolic 122–159; BP diastolic 58–72; PULSE 86–94; RESP 12–20; TEMP 36.5–37.2; O2SAT 93–97
[2023-11-10] MEDS: oxyCODONE 5 MG TAB PO ×2 (02:40→21:47)
[2023-11-10] MEDS: Fexofenadine 180 MG TAB PO ×2 (02:40→21:47)
[2023-11-10] MEDS: Doxepin 10 MG CAP PO ×2 (02:41→21:47)
[2023-11-10 06:48] LABS: Abs Immature Grans 0.01 10^3/uL (0.0-0.06); Absolute Basophil Count 0.07 10^3/uL (0.0-0.2); Absolute Eosinophil Count 0.24 10^3/uL (0.0-0.7); Absolute Lymphocyte Count 1.16 10^3/uL (1.2-3.4); Absolute Neutrophil Count 2.47 10^3/uL (1.2-6.7); Basophils % 1.6; Eosinophils % 5.4; HCT 26.2 % (36.0-46.0); HGB 7.6 g/dL (11.2-15.7); Immature Grans % 0.2; Lymphocytes % 26.1; MCH 22.4 pg (27.0-33.0); MCV 77 fL (80-95); MPV 11.7 fL (8.0-11.0); Monocytes % 11.2; Neutrophils % 55.5; RBC 3.39 10^6/uL (3.93-5.22); RDW 15.2 % (11.7-14.6); RDW-SD 42.3 fL; WBC 4.45 10^3/uL (4.4-10.8)
[2023-11-10 07:31] LABS: BUN 18 mg/dL (7-18); CREATININE 0.9 mg/dL (0.55-1.02); Calcium 8.5 mg/dL (8.5-10.1); Calculated LDL 43 mg/dL (<100); Chloride 107 mmol/L (98-107); Cholesterol 127 mg/dL (<200); Estimated GFR 69.64 (mL/min/1.73m2); Glucose 174 mg/dL (74-106); HDL Cholesterol 75 mg/dL (40-60); Magnesium 1.9 mg/dL (1.8-2.4); Sodium 140 mmol/L (136-145); Triglyceride 47 mg/dL (<150)
[2023-11-10 08:25] LABS: Diff Comment Diff Reviewed; Hypochromasia 2+; Platelet Count 94 10^3/uL (130-400)
[2023-11-10 08:26] LABS: Poikilocytes 2+
[2023-11-10] MEDS: Insulin Aspart 300 UNITS/3 ML PEN SC ×3 (08:58→16:39)
[2023-11-10] MEDS: Lactulose 20 GM/30 ML CUP 30 GM PO ×2 (08:59→20:23)
[2023-11-10] MEDS: FLUoxetine 20 MG CAP 40 MG PO (09:00)
[2023-11-10] MEDS: rOPINIRole 0.5 MG TAB 2 MG PO ×2 (09:00→20:23)
[2023-11-10] MEDS: metFORMIN 500 MG TAB 1000 MG PO ×2 (09:01→16:38)
[2023-11-10] MEDS: Torsemide 20 MG TAB 40 MG PO (09:02)
[2023-11-10] MEDS: Pantoprazole 40 MG TABCR PO ×2 (09:02→20:25)
[2023-11-10] MEDS: Empaglifozin 10 MG TAB PO (09:02)
[2023-11-10] MEDS: IRON SUCROSE COMPLEX 400 MG in Normal Saline 250 ML 100 MG IVPB (09:03)
[2023-11-10] MEDS: Nystatin POWDER 15 GM JAR TP (09:03)
[2023-11-10] MEDS: Normal Saline Flush 10 ML SYR IVP ×2 (09:05→23:58)
[2023-11-10] MEDS: hydrOXYzine HCL 25 MG TAB PO (09:16)
--- NOTE | 2023-11-10 09:47 | PDOC.CMIN ---
Date of service: 11/10/23 Time of Service: 09:47 Care Management Initial Assmt Initial Assessment REASON FOR HOSPITALIZATION:: Anemia PREVIOUS FUNCTIONAL STATUS/SOCIAL/FAMILY SUPPORTS:: Eli, who prefers to be called Re, lives in a single family home in [place] with her Alexis. They have one child together, a son, who lives with them and 2 step daughters. One step daughter lives in [place] and the other is in [place]. She also has one grandson who lives in [place], [place]. 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 Re uses a walker for ambulation. CURRENT FUNCTIONAL STATUS:: Up independently in room, pleasant in interaction-sitting up on the side of her bed. ADVANCE DIRECTIVES:: None on file. Has patient been provided with info about the portal/API?: Yes Did the patient sign up for the portal?: Yes CODE STATUS:: Full Code INSURANCE COVERAGE / FINANCIAL ISSUES:: [facility] Medicare Replacement CURRENT HOME/COMMUNITY SERVICES/EQUIPMENT:: [facility], Hematology at [facility] in [facility] CPAP, walker, home health orders upon discharge in June of 2023 PRIMARY CARE PHYSICIAN:: Jefe Coffey POTENTIAL DISCHARGE NEEDS:: Follow up appointments. PATIENT/FAMILY EDUCATION NEEDS:: Review of discharge instructions, limitations, activity, follow up plan, Discuss Ask Me Three ANTICIPATED BARRIERS TO DISCHARGE:: None identified. TRANSPORTATION:: via private vehicle with family PLAN:: Anticipate Eli will be discharged home when medially cleared by provider. She will follow up with her community providers and plan of care and transport with family. CM will follow and assess for discharge planning concerns. PFSH All Active Problems (Updated 11/10/23 @ 07:14 by Gama Gray MD) GAVE (gastric antral vascular ectasia) (Acute) History of oophorectomy, unilateral (Acute) DVT prophylaxis (Acute) Encephalopathy, hepatic (Acute) Anemia (Chronic) Generalized pruritus (Acute) Weakness (Acute) Acute hip pain (Acute) Hypersomnia (Acute) Hyperglycemia due to type 2 diabetes mellitus (Acute) No-show for appointment (Acute) Submucosal neoplasm of stomach (Acute) JAYDEN (obstructive sleep apnea) (Chronic) Lung nodule (Acute) Biliary dyskinesia (Acute) Atypical angina (Acute) Acquired arteriovenous malformation (Acute) Medical History (Updated 11/10/23 @ 07:14 by Gama Gray MD) Dermoid cyst History of peptic ulcer disease Osteoarthritis Pituitary cyst Pancreatitis Hypertensive disorder Hepatic encephalopathy Excess skin of eyelid Edema Dyspnea Atrophy of vagina Atrophic vaginitis Actinic keratosis Pituitary adenoma Restless legs Neoplasm of parotid gland Lumbar spondylosis Lesion of esophagus Dyslipidemia Depressive disorder Crohn's disease Chronic low back pain Anxiety Anemia Cirrhosis Type 2 diabetes mellitus SALCIDO (nonalcoholic steatohepatitis) CHF (congestive heart failure) Anasarca Surgical History (Updated 11/09/23 @ 23:35 by Gama Gray MD) History of rotator cuff surgery bilateral History of total knee arthroplasty bilateral History of sleeve gastrectomy History of hysterectomy Family History Brother Cancer Lung Alcohol use disorder 2 older brothers Social History Smoking/Tobacco Use Status: Never Smoking risk assessment performed?: Yes Alcohol Intake: never Drug use: Never Substance use type: does not use Housing: apartment Current gender identity: female Do you feel safe at home: Yes Do you feel safe in your relationship?: Yes Additional Social history: Lives with Arslan, and son in [place]. Moved from [place] in 2020. Has a dog and 7 pet birds. SDOH(Care Management) Screening Will the Patient Participate in the Screening?: Yes Do you worry about having a steady place to live?: no Problems where you live: pests such as bugs, ants or mice, lack of heat and unsafe joe/stairs In the past 12 months, have you had to go without electric, gas, oil or water in your home?: no Have you or anyone in your house had to go without enough food to eat?: no Has lack of transportation kept you from medical appointments or from doing things needed for daily living?: yes Has anyone in your support network made you feel unsafe for any reason?: no Social Determinants of Health Comments(SDOH Details): Would like to connect with a plow tour bus driver/guide and furnace repairman Health Related Social Needs Health related social needs: inadequate housing(Z59.1) and transportation insecurity(Z59.82)
[2023-11-10 11:59] LABS: HCT 27.9 % (36.0-46.0); HGB 8.1 g/dL (11.2-15.7)
--- NOTE | 2023-11-10 12:45 | NUR.NOTE ---
Nursing Note: pt refused lunch dt pt stated I don't feel good charge nurse notified @[phone]
--- NOTE | 2023-11-10 17:32 | W.PM.PROGNOT ---
Date of Service Date of service: 11/10/23 Time of Service: 17:32 Assessment and Plan Assessment and plan (1) Anemia: Status: Chronic Assessment and plan: S/p 2 units pRBCs w/ a stable H/H. No clinical bleeding Continue PPI. Will need repeat endoscopy as outpatient. REcheck H/H in am. Qualifiers: Anemia type: iron deficiency Iron deficiency anemia type: chronic blood loss Qualified Code(s): D50.0 - Iron deficiency anemia secondary to blood loss (chronic) (2) History of peptic ulcer disease: Assessment and plan: As above Consider carafate (3) SALCIDO (nonalcoholic steatohepatitis): Assessment and plan: Continue home management (4) Type 2 diabetes mellitus: Assessment and plan: Checking fructosamine. Continue metformin and Jardiance. Continue SSI Qualifiers: Diabetes mellitus care home insulin use: without care home use Diabetes mellitus complication status: without complication Qualified Code(s): E11.9 - Type 2 diabetes mellitus without complications (5) Cirrhosis: Qualifiers: Hepatic cirrhosis type: other cirrhosis Qualified Code(s): K74.69 - Other cirrhosis of liver (6) Hypertensive disorder: Assessment and plan: Continue current therapy. WE should attempt to obtain medical records from the [place] to try to find out why entresto was chosen. Qualifiers: Hypertension type: primary hypertension Qualified Code(s): I10 - Essential (primary) hypertension (7) JAYDEN (obstructive sleep apnea): Status: Chronic Assessment and plan: Continue CPAP (8) Bladder spasm: Status: Acute Assessment and plan: try oxybutynin (9) DVT prophylaxis: Status: Acute Assessment and plan: hold chemical DVT ppx due to GI bleeding Continue mechanical DVT ppx w/ SCDs (10) Discharge planning issues: Status: Acute Assessment and plan: Full code Snow plowing issue being addressed ANticipate discharge home tomorrow. Furnace issue to be addressed tomorrow. Subjective Subjective Interval history since last seen: Ms Meade has not had any gross blood in stool. H/H is stable. Tolerating a diet. Denies dizziness, CP, SOB, n/v. Does report a severe pain after urination without dysuria. It feels like a sharp pain at the bottom of the spine. She had had it before but it resolved on its own. This has now been going on for 2 days. She does have incontinence chronically and wears diapers. We discussed trialing oxybutynin for what sounds like bladder spasms. The patient states that she has had a hard time finding someone to plow her driveway. The person who did it last time no longer does it. She has only been in [place] for a year and has only met a couple of her neighbors. She named some of them for me, and I happened to have their contact info and reached out to find out who plows their driveway. Additionally, their oil furnace has gone out. Ms Meade will call the company tomorrow because she does not have the $200 she would have to pay for them to come to her house on the weekend. She does state that there are alternative heating sources at the house. Exam Narrative Exam Narrative: General: A very pleasant elderly female who is sitting in a chair, eating dinner, looks well HEENT: EOMI, MMM Heart: RRR, no m/r/g Lungs: CTAB Abdomen: soft, nontender, nondistended Extremities: no edema BLEs Objective Last Vital Signs Temp 36.7 C 11/10/23 15:25 Pulse 86 11/10/23 15:25 Resp 18 11/10/23 15:25 BP 122/63 11/10/23 15:25 Pulse Ox 93 11/10/23 15:25 Laboratory Results - last 24 hr 11/09/23 11/09/23 11/09/23 20:05 20:25 21:57 WBC 3.58 L RBC 2.84 L Hgb 6.0 L* Hct 21.5 L MCV 76 L MCH 21.1 L MCHC 27.9 L RDW 15.1 H Plt Count 84 L MPV 11.2 H Reticulocyte % (Auto) 1.8 Immature Gran % 0.6 Neutrophils % 61.4 Lymphocytes % 20.7 Monocytes % 10.9 Eosinophils % 5.3 Basophils % 1.1 Nucleated RBC % 0.0 Absolute Neutrophils 2.20 Absolute Lymphocytes 0.74 L Absolute Monocytes 0.39 Absolute Eosinophils 0.19 Absolute Basophils 0.04 RBC Morphology See Below Hypochromasia 1+ Poikilocytosis Microcytosis 1+ PT 11.9 H INR 1.2 H Sodium 140 Potassium 4.5 Chloride 105 Carbon Dioxide 28.3 Anion Gap 6.7 BUN 18 Creatinine 0.8 Est GFR (CKD-EPI 2020) 80.21 Glucose 242 H Calcium 8.6 Magnesium 1.9 Iron 14 L TIBC 436 Transferrin % Sat 3 L Ferritin 12 Total Bilirubin 1.1 H AST 43 H ALT 27 Alkaline Phosphatase 238 H Ammonia 31 Lactate Dehydrogenase 263 H Troponin I < 50 NT-Pro-B Natriuret Pep 147 Total Protein 5.9 L Albumin 2.6 L Triglycerides Total Cholesterol LDL Cholesterol, Calc HDL Cholesterol Lipase 45 Whole Bld Vitamin B1 Vitamin B12 863 Folate 18.1 Urine Color Yellow Urine Clarity Clear Urine pH 6.0 Ur Specific [place] 1.010 Urine Protein Negative Urine Ketones Negative Urine Blood Negative Urine Nitrite Negative Urine Bilirubin Negative Urine Urobilinogen 0.2 Ur Leukocyte Esterase Negative Urine Glucose 500 H Add-On Test Request TNP Patient ABO/Rh O Positive Antibody Screen NEGATIVE Crossmatch See Detail 11/09/23 11/09/23 11/09/23 22:11 22:32 Unknown WBC RBC Hgb Hct MCV MCH MCHC RDW Plt Count MPV Reticulocyte % (Auto) Immature Gran % Neutrophils % Lymphocytes % Monocytes % Eosinophils % Basophils % Nucleated RBC % Absolute Neutrophils Absolute Lymphocytes Absolute Monocytes Absolute Eosinophils Absolute Basophils RBC Morphology Hypochromasia Poikilocytosis Microcytosis PT INR Sodium Potassium Chloride Carbon Dioxide Anion Gap BUN Creatinine Est GFR (CKD-EPI 2020) Glucose Calcium Magnesium Iron TIBC Transferrin % Sat Ferritin Total Bilirubin AST ALT Alkaline Phosphatase Ammonia Lactate Dehydrogenase Troponin I NT-Pro-B Natriuret Pep Total Protein Albumin Triglycerides Total Cholesterol LDL Cholesterol, Calc HDL Cholesterol Lipase Whole Bld Vitamin B1 Cancelled Vitamin B12 Folate Urine Color Urine Clarity Urine pH Ur Specific [place] Urine Protein Urine Ketones Urine Blood Urine Nitrite Urine Bilirubin Urine Urobilinogen Ur Leukocyte Esterase Urine Glucose Add-On Test Request DONE DONE Patient ABO/Rh Antibody Screen Crossmatch 11/10/23 11/10/23 06:40 11:55 WBC 4.45 RBC 3.39 L Hgb 7.6 L 8.1 L Hct 26.2 L 27.9 L MCV 77 L MCH 22.4 L MCHC 29.0 L RDW 15.2 H Plt Count 94 L MPV 11.7 H Reticulocyte % (Auto) Immature Gran % 0.2 Neutrophils % 55.5 Lymphocytes % 26.1 Monocytes % 11.2 Eosinophils % 5.4 Basophils % 1.6 Nucleated RBC % 0.0 Absolute Neutrophils 2.47 Absolute Lymphocytes 1.16 L Absolute Monocytes 0.50 Absolute Eosinophils 0.24 Absolute Basophils 0.07 RBC Morphology See Below Hypochromasia 2+ Poikilocytosis 2+ Microcytosis PT INR Sodium 140 Potassium 4.0 Chloride 107 Carbon Dioxide 28.0 Anion Gap 5.0 BUN 18 Creatinine 0.9 Est GFR (CKD-EPI 2020) 69.64 Glucose 174 H Calcium 8.5 Magnesium 1.9 Iron TIBC Transferrin % Sat Ferritin Total Bilirubin AST ALT Alkaline Phosphatase Ammonia Lactate Dehydrogenase Troponin I NT-Pro-B Natriuret Pep Total Protein Albumin Triglycerides 47 Total Cholesterol 127 LDL Cholesterol, Calc 43 HDL Cholesterol 75 Lipase Whole Bld Vitamin B1 Vitamin B12 Folate Urine Color Urine Clarity Urine pH Ur Specific [place] Urine Protein Urine Ketones Urine Blood Urine Nitrite Urine Bilirubin Urine Urobilinogen Ur Leukocyte Esterase Urine Glucose Add-On Test Request Patient ABO/Rh Antibody Screen Crossmatch Time Spent with Patient Time Spent with Patient: 25-34 minutes Time was spent: preparing to see the patient(eg.review tests), obtaining and/or reviewing separately otained hiistory, ordering medications,tests, procedures, referring, communicating with other health associate director career services, indepentently interpreting results, counseling the patient and care coordination
[2023-11-10] MEDS: Sacubitril/Valsartan 24 mg/26 mg TAB 1 EACH PO (20:23)
[2023-11-10] MEDS: Oxybutynin 5 MG TAB PO (20:24)
[2023-11-10] MEDS: Ondansetron O.D.T. 4 MG TABEF PO (21:48)
--- NOTE | 2023-11-11 | DI.CT_ITS ---
Exam(s) CT ABDOMEN PELVIS W EXAM: CT ABDOMEN PELVIS W CLINICAL HISTORY: abdominal pain, h/o cirrhosis and pancreatitis TECHNIQUE: Imaging Protocol: Axial computed tomography images with coronal and sagittal reformatted images were created and reviewed CONTRAST MATERIAL: Intravenous: Omnipaque 350 Contrast volume:100 mL Oral: No COMPARISON: CT CT ABDOMEN PELVIS W from 11/09/[address] ABDOMEN PELVIS W from 12/13/[address] ABDOMEN PELVIS W from 06/29/2023 FINDINGS: ABDOMEN: Lung Bases: Normal where visualized. Liver: The liver has a nodular contour consistent with hepatic cirrhosis. No measurable mass. Portal, Superior Mesenteric, and Splenic Veins: Unremarkable. Collateral veins are seen throughout th e abdomen. Gallbladder and Biliary Tract: Status post cholecystectomy. No significant biliary ductal dilatation . Pancreas: Mild inflammatory changes around the pancreas without focal fluid collection. Spleen: Splenomegaly. Adrenals: No masses seen. Kidneys: Normal size, contour and axis. No radiodense stones or obstructive uropathy. No masses seen. Abdominal Aorta: Abdominal portion non-dilated. Atherosclerosis. Bowel: No obstruction or bowel wall thickening. No evidence of appendicitis. Peritoneal Cavity: There is a trace amount of free fluid in the abdomen. No free air. Lymph Nodes: Within normal limits. Bones: Within normal limits for the patient's age. Soft Tissues: There is edema seen in the soft tissues which may represent anasarca. There is a fat c ontaining umbilical hernia. PELVIS: Bladder: Symmetric distention, no gross wall thickening. Reproductive Organs: Status post hysterectomy. Lymph Nodes: Within normal limits. Bones: Within normal limits for the patient's age. IMPRESSION: 1. Findings consistent with hepatic cirrhosis with portal venous hypertension and splenomegaly. 2. Mild stranding around the pancreas without focal fluid collection. This may represent acute pancr eatitis. Please correlate clinically. 3. Subcutaneous edema consistent with anasarca. RADIATION DOSE DELIVERED: 1,309.19mGy.cm Total DLP DATA REPOSITORY: All CT scans at this facility are submitted to the National Radiology Data Registry (NRDR) Dose Index Registry (DIR) with the [employer] (A[employer]). RADIATION OPTIMIZATION: All CT scans at this facility use at least one of these dose optimization te chniques: automated exposure control; mA and/or kV adjustment per patient size (includes targeted exa ms where dose is matched to clinical indication); or iterative reconstruction.
[2023-11-11 06:55] LABS: Abs Immature Grans 0.02 10^3/uL (0.0-0.06); Absolute Basophil Count 0.06 10^3/uL (0.0-0.2); Absolute Eosinophil Count 0.24 10^3/uL (0.0-0.7); Absolute Lymphocyte Count 1.13 10^3/uL (1.2-3.4); Absolute Monocyte Count 0.74 10^3/uL (0.1-0.8); Absolute Neutrophil Count 4.02 10^3/uL (1.2-6.7); Eosinophils % 3.9; HCT 25.2 % (36.0-46.0); HGB 7.3 g/dL (11.2-15.7); Immature Grans % 0.3; Lymphocytes % 18.2; MCH 22.1 pg (27.0-33.0); MCV 76 fL (80-95); MPV 10.7 fL (8.0-11.0); Monocytes % 11.9; Neutrophils % 64.7; RBC 3.31 10^6/uL (3.93-5.22); RDW 15.7 % (11.7-14.6); RDW-SD 43.1 fL; WBC 6.21 10^3/uL (4.4-10.8)
[2023-11-11 07:07] LABS: BUN 20 mg/dL (7-18); CREATININE 1.1 mg/dL (0.55-1.02); Calcium 8.8 mg/dL (8.5-10.1); Chloride 104 mmol/L (98-107); Estimated GFR 54.73 (mL/min/1.73m2); Glucose 173 mg/dL (74-106); Magnesium 1.7 mg/dL (1.8-2.4); Potassium 3.2 mmol/L (3.5-5.1); Sodium 142 mmol/L (136-145)
[2023-11-11 07:27] LABS: Diff Comment Diff Reviewed; Microcytosis 1+; Platelet Count 78 10^3/uL (130-400)
[2023-11-11 07:28] LABS: Hypochromasia 1+
[2023-11-11 07:36] VITALS: BP 111/68; PULSE 80; RESP 18; TEMP 37.1; O2SAT 94
[2023-11-11] MEDS: MAGNESIUM SULFATE 2 GM/50 ML BAG IVPB (08:24)
[2023-11-11] MEDS: Lactulose 20 GM/30 ML CUP 30 GM PO ×2 (08:24→21:07)
[2023-11-11] MEDS: Normal Saline Flush 10 ML SYR IVP ×2 (08:24→22:26)
[2023-11-11] MEDS: Empaglifozin 10 MG TAB PO (08:25)
[2023-11-11] MEDS: FLUoxetine 20 MG CAP 40 MG PO (08:25)
[2023-11-11] MEDS: POTASSIUM CHLORIDE 20 MEQ/100 ML BAG 50 MEQ IVPB ×2 (08:25→10:56)
[2023-11-11] MEDS: rOPINIRole 0.5 MG TAB 2 MG PO ×2 (08:25→21:11)
[2023-11-11] MEDS: metFORMIN 500 MG TAB 1000 MG PO (08:25)
[2023-11-11] MEDS: Torsemide 20 MG TAB 40 MG PO (08:26)
[2023-11-11] MEDS: Pantoprazole 40 MG TABCR PO ×2 (08:26→21:11)
[2023-11-11] MEDS: Oxybutynin 5 MG TAB PO ×2 (08:26→21:12)
[2023-11-11] MEDS: Insulin Aspart 300 UNITS/3 ML PEN SC ×4 (08:49→21:14)
[2023-11-11 09:55] LABS: Transferrin 334 mg/dL (201-352)
[2023-11-11 11:26] VITALS: BP 138/62; PULSE 77; RESP 17; TEMP 37.1; O2SAT 96
--- NOTE | 2023-11-11 11:39 | PDOC.CMPRO ---
Date of service: 11/11/23 Time of Service: 15:25 Care Management Progress Note Progress Note Text Progress Note Text: S/O:Re was sitting up in a chair when CM met with her. She was pleasant and engaged well with CM. Re stated that she is feeling better now that her anemia is improved. She did complain of nausea, abdominal discomfort and bloating this morning and a CT of the abdomen was ordered. There was a question of pancreatitis noted, however her lipase was normal and she was able to tolerate 100% of her lunch. She will likely be observed overnight and discharge tomorrow if no further issues develop. A: Eli is a 68 year old woman admitted on 11/09/23 with anemia P:Anticipate Re will be discharged home when medially cleared by provider. She will follow up with her community providers and plan of care and transport with family. CM will follow and assess for discharge planning concerns.
[2023-11-11 11:58] LABS: HCT 28.2 % (36.0-46.0); HGB 8.1 g/dL (11.2-15.7)
--- NOTE | 2023-11-11 12:31 | W.PM.PROGNOT ---
Date of Service Date of service: 11/11/23 Time of Service: 12:32 Assessment and Plan Assessment and plan (1) Abdominal pain: Status: Acute Assessment and plan: Add LFTs and lipase on to am labs. Obtain CT abdomen/pelvis. Clear liquids. (2) Anemia: Status: Chronic Assessment and plan: S/p 2 units pRBCs. Hgb this am was 7.3 but it's 8.1 on recheck without transfusion around noon. No clinical bleeding. Continue PPI. Will need repeat endoscopy as outpatient. Checking CT abdomen/pelvis. Qualifiers: Anemia type: iron deficiency Iron deficiency anemia type: chronic blood loss Qualified Code(s): D50.0 - Iron deficiency anemia secondary to blood loss (chronic) (3) History of peptic ulcer disease: Assessment and plan: As above Consider carafate (4) SALCIDO (nonalcoholic steatohepatitis): Assessment and plan: Continue home management (5) Type 2 diabetes mellitus: Assessment and plan: Checking fructosamine. Continue Jardiance. Continue SSI Hold metformin given IV contrast administration. Qualifiers: Diabetes mellitus longterm insulin use: without longterm use Diabetes mellitus complication status: without complication Qualified Code(s): E11.9 - Type 2 diabetes mellitus without complications (6) Cirrhosis: Assessment and plan: Variceal status unclear. Checking CT abdomen/pelvis which may shine some light on this. No obvious ascites at this time. INR adequate and appears compensated. Qualifiers: Hepatic cirrhosis type: other cirrhosis Qualified Code(s): K74.69 - Other cirrhosis of liver (7) Hypertensive disorder: Assessment and plan: Continue current therapy. [facility] to find out [facility]. Qualifiers: Hypertension type: primary hypertension Qualified Code(s): I10 - Essential (primary) hypertension (8) JAYDEN (obstructive sleep apnea): Status: Chronic Assessment and plan: Continue CPAP (9) Bladder spasm: Status: Acute Assessment and plan: Continue oxybutynin (10) DVT prophylaxis: Status: Acute Assessment and plan: hold chemical DVT ppx due to GI bleeding Continue mechanical DVT ppx w/ SCDs and TEDs (11) Discharge planning issues: Status: Acute Assessment and plan: Full code Snow plowing issue addressed. Holding off on discharge until more is known about abdominal pain/nausea. Subjective Subjective Interval history since last seen: Reports n/v last night and nausea now. She did not eat breakfast. Did eat lunch. Also reports abdominal distention and epigastric pain since sometime this morning. -dizziness, CP, SOB. Exam Narrative Exam Narrative: General: A very pleasant elderly female who is sitting in a chair, has finished most of the food on her lunch tray, A&Ox3, does look bloated HEENT: EOMI, MMM Heart: RRR, no m/r/g Lungs: CTAB Abdomen: soft, tender in epigastrium, mildly distended, no obvious fluid wave; there is rebound in RUQ Extremities: 2+ edema BLEs Objective Last Vital Signs Temp 37.1 C 11/11/23 11:26 Pulse 77 11/11/23 11:26 Resp 17 11/11/23 11:26 BP 138/62 11/11/23 11:26 Pulse Ox 96 11/11/23 11:26 Laboratory Results - last 24 hr 11/11/23 11/11/23 06:17 11:50 WBC 6.21 RBC 3.31 L Hgb 7.3 L 8.1 L Hct 25.2 L 28.2 L MCV 76 L MCH 22.1 L MCHC 29.0 L RDW 15.7 H Plt Count 78 L MPV 10.7 Immature Gran % 0.3 Neutrophils % 64.7 Lymphocytes % 18.2 Monocytes % 11.9 Eosinophils % 3.9 Basophils % 1.0 Nucleated RBC % 0.0 Absolute Neutrophils 4.02 Absolute Lymphocytes 1.13 L Absolute Monocytes 0.74 Absolute Eosinophils 0.24 Absolute Basophils 0.06 RBC Morphology See Below Hypochromasia 1+ Microcytosis 1+ Sodium 142 Potassium 3.2 L Chloride 104 Carbon Dioxide 32.0 Anion Gap 6.0 BUN 20 H Creatinine 1.1 H Est GFR (CKD-EPI 2020) 54.73 Glucose 173 H Calcium 8.8 Magnesium 1.7 L Time Spent with Patient Time Spent with Patient: 25-34 minutes Time was spent: preparing to see the patient(eg.review tests), obtaining and/or reviewing separately otained hiistory, ordering medications,tests, procedures, referring, communicating with other health property caretaker, indepentently interpreting results, counseling the patient and care coordination
[2023-11-11] MEDS: Ondansetron 4 MG/2 ML VIAL IVP (12:38)
[2023-11-11 13:15] LABS: Lab Add On Test DONE
[2023-11-11 13:38] LABS: ALT 24 U/L (14-59); AST 30 U/L (15-37); Albumin 2.4 g/dL (3.4-5.0); Alkaline Phosphatase 150 U/L (46-116); Bilirubin, Direct 0.6 mg/dL (0.0-0.2); Bilirubin, Total 1.7 mg/dL (0.2-1.0); Lipase 33 U/L (16-77); Total Protein 5.5 g/dL (6.4-8.2)
[2023-11-11] MEDS: Normal Saline - Diluent 50 ML VIAL IJ (13:41)
[2023-11-11] MEDS: Omnipaque 350 MG/ML 100 ML BTL IJ (13:43)
[2023-11-11 15:43] VITALS: BP 100/52; PULSE 81; RESP 17; TEMP 36.5; O2SAT 96
[2023-11-11] MEDS: hydrOXYzine HCL 25 MG TAB PO (18:11)
[2023-11-11] MEDS: Fexofenadine 180 MG TAB PO (21:09)
[2023-11-11] MEDS: Doxepin 10 MG CAP PO (21:10)
[2023-11-11] MEDS: Sacubitril/Valsartan 24 mg/26 mg TAB 1 EACH PO (21:12)
[2023-11-11 21:15] VITALS: BP 126/62; PULSE 75; RESP 20; TEMP 36.4; O2SAT 94
[2023-11-12] VITALS (7 sets, daily range): BP systolic 74–140; BP diastolic 41–68; PULSE 68–89; RESP 17–19; TEMP 36.5–37.2; O2SAT 92–95
[2023-11-12] MEDS: hydrOXYzine HCL 25 MG TAB PO ×2 (05:04→20:07)
[2023-11-12 07:08] LABS: Abs Immature Grans 0.02 10^3/uL (0.0-0.06); Absolute Basophil Count 0.06 10^3/uL (0.0-0.2); Absolute Eosinophil Count 0.33 10^3/uL (0.0-0.7); Absolute Lymphocyte Count 1.15 10^3/uL (1.2-3.4); Absolute Monocyte Count 0.81 10^3/uL (0.1-0.8); Absolute Neutrophil Count 3.35 10^3/uL (1.2-6.7); Eosinophils % 5.8; HCT 26.7 % (36.0-46.0); HGB 7.8 g/dL (11.2-15.7); Immature Grans % 0.3; Lymphocytes % 20.1; MCH 22.4 pg (27.0-33.0); MCHC 29.2 % (32.0-36.0); MCV 77 fL (80-95); MPV 11.2 fL (8.0-11.0); Monocytes % 14.2; Neutrophils % 58.6; RBC 3.48 10^6/uL (3.93-5.22); RDW 16.3 % (11.7-14.6); RDW-SD 44.2 fL; WBC 5.72 10^3/uL (4.4-10.8)
[2023-11-12 07:19] LABS: Anion Gap 7.2 mmol/L (3-11); BUN 18 mg/dL (7-18); CO2 33.8 mmol/L (21.0-32.0); CREATININE 1.2 mg/dL (0.55-1.02); Calcium 8.5 mg/dL (8.5-10.1); Chloride 100 mmol/L (98-107); Estimated GFR 49.31 (mL/min/1.73m2); Glucose 160 mg/dL (74-106); Magnesium 1.9 mg/dL (1.8-2.4); Potassium 3.1 mmol/L (3.5-5.1); Sodium 141 mmol/L (136-145)
[2023-11-12 07:38] LABS: Polychromasia Present
[2023-11-12 07:39] LABS: Platelet Count 86 10^3/uL (130-400)
[2023-11-12] MEDS: Pantoprazole 40 MG TABCR PO ×2 (08:12→20:06)
[2023-11-12] MEDS: Empaglifozin 10 MG TAB PO (08:14)
[2023-11-12] MEDS: rOPINIRole 0.5 MG TAB 2 MG PO ×2 (08:15→20:07)
[2023-11-12] MEDS: Insulin Aspart 300 UNITS/3 ML PEN SC ×4 (08:19→21:44)
[2023-11-12] MEDS: FLUoxetine 20 MG CAP 40 MG PO (08:19)
[2023-11-12] MEDS: Oxybutynin 5 MG TAB PO ×2 (08:19→20:06)
[2023-11-12] MEDS: Sacubitril/Valsartan 24 mg/26 mg TAB 1 EACH PO ×2 (08:33→20:07)
[2023-11-12] MEDS: Lactulose 20 GM/30 ML CUP 30 GM PO ×2 (08:34→20:06)
[2023-11-12] MEDS: Nystatin POWDER 15 GM JAR TP (08:38)
[2023-11-12] MEDS: Normal Saline Flush 10 ML SYR IVP ×2 (09:18→20:08)
[2023-11-12] MEDS: POTASSIUM CHLORIDE 20 MEQ/100 ML BAG 50 MEQ IVPB ×2 (09:19→11:59)
[2023-11-12] MEDS: Torsemide 20 MG TAB 40 MG PO (09:40)
[2023-11-12 14:35] LABS: Fructosamine 481 mcmol/L (200 - 285)
--- NOTE | 2023-11-12 16:14 | PDOC.CMPRO ---
Date of service: 11/12/23 Time of Service: 16:14 Care Management Progress Note Progress Note Text Progress Note Text: S/O:Re was sitting up in a chair when CM met with her. She was pleasant and engaged well with CM. Re had her diet advanced and tolerated lunch with no nausea, vomiting or pain. She informed CM that she would like to be discharged home as long as it is safe to do so. She informed the provider late afternoon that she was a little lightheaded when ambulating. Blood work (H&H) and orthostatic vital signs were ordered and Re will remain another night. A: Eli is a 68 year old woman admitted on 11/09/23 with anemia P:Anticipate Re will be discharged home when medially cleared by provider. She will follow up with her community providers and plan of care and transport with family. CM will follow and assess for discharge planning concerns.
[2023-11-12 16:32] LABS: HCT 29.1 % (36.0-46.0); HGB 8.5 g/dL (11.2-15.7)
[2023-11-12 16:43] LABS: Ammonia 33 umol/L (11-32)
--- NOTE | 2023-11-12 16:53 | CHAPLAIN ---
Re was up in the chair when I visited. She was pleasant and easily engaged in a conversation. She said she is feeling better but her main concern is her furnace not working at home. She's been dealing by phone with a [employer]Remind sweep and the [employer] about fixing the furnace and is frustrated. Her , Alexis is also a patient here. Re told me to tell Alexis she would be over to visit him when her IV fluids were done.
[2023-11-12] MEDS: Fluconazole 100 MG TAB PO (18:25)
--- NOTE | 2023-11-12 19:11 | PGE_ITS ---
Date of Service Date of service: 11/12/23 Time of Service: 17:30 Assessment and Plan Assessment and plan (1) Encephalopathy, hepatic: Status: Acute Assessment and plan: I do not have another explanation for Ms Meade's malaise today. I have increased her lactulose dose. Will monitor mental status. (2) Abdominal pain: Status: Resolved Assessment and plan: Was due to acute mild pancreatitis which has now resolved. Tolerating a regular diet. (3) Anemia: Status: Chronic Assessment and plan: In setting of Heme + stools and GAVE syndrome. S/p 2 units pRBCs. Hgb remains stable. Will need outpatient endoscopy. Qualifiers: Anemia type: iron deficiency Iron deficiency anemia type: chronic blood loss Qualified Code(s): D50.0 - Iron deficiency anemia secondary to blood loss (chronic) (4) History of peptic ulcer disease: Assessment and plan: As above Consider carafate (5) SALCIDO (nonalcoholic steatohepatitis): Assessment and plan: Continue home management (6) Type 2 diabetes mellitus: Assessment and plan: Await fructosamine. Continue Jardiance. Continue SSI Hold metformin given IV contrast administration. Qualifiers: Diabetes mellitus correction insulin use: without correction use Diabetes mellitus complication status: without complication Qualified Code(s): E11.9 - Type 2 diabetes mellitus without complications (7) Cirrhosis: Assessment and plan: Variceal status unclear. No obvious varices on the CT. No obvious ascites at this time. INR adequate and appears compensated. Qualifiers: Hepatic cirrhosis type: other cirrhosis Qualified Code(s): K74.69 - Other cirrhosis of liver (8) Hypertensive disorder: Assessment and plan: Continue current therapy. We should [facility] to find out why [facility]o was chosen. Qualifiers: Hypertension type: primary hypertension Qualified Code(s): I10 - Essential (primary) hypertension (9) JAYDEN (obstructive sleep apnea): Status: Chronic Assessment and plan: Continue CPAP (10) Bladder spasm: Status: Acute Assessment and plan: Continue oxybutynin (11) DVT prophylaxis: Status: Acute Assessment and plan: hold chemical DVT ppx due to GI bleeding Continue mechanical DVT ppx w/ SCDs and TEDs (12) Discharge planning issues: Status: Acute Assessment and plan: Full code Snow plowing issue addressed. Anticipate discharge home tomorrow Subjective Subjective Interval history since last seen: Ms Meade tolerated regular consistency lunch and feels much better from the stand point of abdominal pain or nausea, but she also feels like her encephalopathy is worse. She states she was doing well walking to the nursing station with a walker but then suddenly felt like her whole life was drained out of her. She felt tired and felt unsteady on her feet, though no one side felt weaker than the other. She had not had any bowel movements yet today. She says we are actually giving her more lactulose here now than she takes at home. Her machine BPs showed orthostatic hypotension, but manual BPs Did not. Her supine BP was 120/41 with HR of 68, Sitting 130/42 with HR of 71, and standing it was 140/48 with HR of 70. Her hemoglobin is stable. No clinical bleeding today. No dizziness per say. No CP, SOB, nausea. Exam Narrative Exam Narrative: General: A very pleasant elderly female who is sitting in a chair, A&Ox3, appears a little distracted, no asterexis HEENT: EOMI, MMM Heart: RRR, no m/r/g Lungs: CTAB Abdomen: soft, nontender, nondistended Extremities: 1+ edema BLEs in TEDs Objective Last Vital Signs Temp 36.5 C 11/12/23 15:50 Pulse 68 11/12/23 16:52 Resp 18 11/12/23 15:50 BP 130/42 L 11/12/23 16:52 Pulse Ox 95 11/12/23 15:50 Laboratory Results - last 24 hr 11/10/23 11/12/23 11/12/23 06:40 06:47 16:20 WBC 5.72 RBC 3.48 L Hgb 7.8 L 8.5 L Hct 26.7 L 29.1 L MCV 77 L MCH 22.4 L MCHC 29.2 L RDW 16.3 H Plt Count 86 L MPV 11.2 H Immature Gran % 0.3 Neutrophils % 58.6 Lymphocytes % 20.1 Monocytes % 14.2 Eosinophils % 5.8 Basophils % 1.0 Nucleated RBC % 0.0 Absolute Neutrophils 3.35 Absolute Lymphocytes 1.15 L Absolute Monocytes 0.81 H Absolute Eosinophils 0.33 Absolute Basophils 0.06 RBC Morphology See Below Polychromasia Present Sodium 141 Potassium 3.1 L Chloride 100 Carbon Dioxide 33.8 H Anion Gap 7.2 BUN 18 Creatinine 1.2 H Est GFR (CKD-EPI 2020) 49.31 Glucose 160 H Fructosamine 481 H Calcium 8.5 Magnesium 1.9 Ammonia 33 H Time Spent with Patient Time Spent with Patient: 35-49 minutes Time was spent: preparing to see the patient(eg.review tests), obtaining and/or reviewing separately otained hiistory, ordering medications,tests, procedures, referring, communicating with other health wound care center consultant, indepentently interpreting results, counseling the patient and care coordination
[2023-11-12] MEDS: Fexofenadine 180 MG TAB PO (21:43)
[2023-11-12] MEDS: Doxepin 10 MG CAP PO (21:43)
[2023-11-12] MEDS: Insulin Glargine 300 UNITS/3 ML PEN SC (21:48)
[2023-11-12] MEDS: oxyCODONE 5 MG TAB PO ×2 (23:49)
[2023-11-13 06:51] LABS: Ammonia 57 umol/L (11-32)
[2023-11-13 06:53] LABS: Abs Immature Grans 0.02 10^3/uL (0.0-0.06); Absolute Basophil Count 0.08 10^3/uL (0.0-0.2); Absolute Eosinophil Count 0.29 10^3/uL (0.0-0.7); Absolute Lymphocyte Count 1.24 10^3/uL (1.2-3.4); Absolute Monocyte Count 0.75 10^3/uL (0.1-0.8); Absolute Neutrophil Count 3.27 10^3/uL (1.2-6.7); Basophils % 1.4; Eosinophils % 5.1; HCT 28.7 % (36.0-46.0); HGB 8.4 g/dL (11.2-15.7); Immature Grans % 0.4; Lymphocytes % 21.9; MCH 22.8 pg (27.0-33.0); MCHC 29.3 % (32.0-36.0); MCV 78 fL (80-95); MPV 12.3 fL (8.0-11.0); Monocytes % 13.3; Neutrophils % 57.9; Platelet Count 106 10^3/uL (130-400); RBC 3.69 10^6/uL (3.93-5.22); RDW 16.8 % (11.7-14.6); RDW-SD 45.1 fL; WBC 5.65 10^3/uL (4.4-10.8)
[2023-11-13 07:20] LABS: Anion Gap 2.1 mmol/L (3-11); BUN 21 mg/dL (7-18); CO2 35.9 mmol/L (21.0-32.0); CREATININE 1.3 mg/dL (0.55-1.02); Calcium 8.8 mg/dL (8.5-10.1); Chloride 101 mmol/L (98-107); Estimated GFR 44.79 (mL/min/1.73m2); Glucose 221 mg/dL (74-106); Magnesium 1.9 mg/dL (1.8-2.4); Potassium 3.4 mmol/L (3.5-5.1); Sodium 139 mmol/L (136-145)
[2023-11-13 08:00] VITALS: BP 102/58; BP 109/62; BP 114/65; PULSE 68; PULSE 70; PULSE 73; RESP 16; TEMP 36.3; O2SAT 95
[2023-11-13] MEDS: Insulin Aspart 300 UNITS/3 ML PEN SC ×2 (08:09→12:00)
[2023-11-13] MEDS: Normal Saline Flush 10 ML SYR IVP (08:10)
[2023-11-13] MEDS: Oxybutynin 5 MG TAB PO (08:19)
[2023-11-13] MEDS: Pantoprazole 40 MG TABCR PO (08:19)
[2023-11-13] MEDS: Empaglifozin 10 MG TAB PO (08:20)
[2023-11-13] MEDS: FLUoxetine 20 MG CAP 40 MG PO (08:20)
[2023-11-13] MEDS: rOPINIRole 0.5 MG TAB 2 MG PO (08:21)
[2023-11-13] MEDS: Sacubitril/Valsartan 24 mg/26 mg TAB 1 EACH PO (08:21)
[2023-11-13] MEDS: Fluconazole 100 MG TAB PO (08:22)
[2023-11-13 08:47] VITALS: BP 109/72; PULSE 80; RESP 18; TEMP 36.1; O2SAT 91
[2023-11-13] MEDS: Lactulose 20 GM/30 ML CUP 30 GM PO ×2 (09:07→12:01)
[2023-11-13] MEDS: Nystatin POWDER 15 GM JAR TP (09:08)
--- NOTE | 2023-11-13 11:15 | IN_ITS ---
PT Notes Visit Reasons: anemia Inpatient Physical Therapy Evaluation Date: 11/13/2023 Referring Doctor: Dr. Sherry Sommers PT Orders: PT CONSULT: Limited ability Precautions: Standard. Fall. 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 She is admitted for management of hepatic encephalopathy, abdominal pain, vomiting, SALCIDO, type II DM, CAD, hypertensive disorder, JAYDEN, bladder spasm. PMHX: All Active Problems (Updated 11/09/23 @ 23:34 by Gama Gray MD) History of oophorectomy, unilateral (Acute) DVT prophylaxis (Acute) Encephalopathy, hepatic (Acute) Anemia (Chronic) Generalized pruritus (Acute) Weakness (Acute) Acute hip pain (Acute) Hypersomnia (Acute) Hyperglycemia due to type 2 diabetes mellitus (Acute) No-show for appointment (Acute) Submucosal neoplasm of stomach (Acute) JAYDEN (obstructive sleep apnea) (Chronic) Lung nodule (Acute) Biliary dyskinesia (Acute) Atypical angina (Acute) Acquired arteriovenous malformation (Acute) Medical History (Updated 11/09/23 @ 23:34 by Gama Gray MD) Dermoid cyst History of peptic ulcer disease Osteoarthritis Pituitary cyst Pancreatitis Hypertensive disorder Hepatic encephalopathy Excess skin of eyelid Edema Dyspnea Atrophy of vagina Atrophic vaginitis Actinic keratosis GAVE (gastric antral vascular ectasia) Pituitary adenoma Restless legs Neoplasm of parotid gland Lumbar spondylosis Lesion of esophagus Dyslipidemia Depressive disorder Crohn's disease Chronic low back pain Anxiety Anemia Cirrhosis Type 2 diabetes mellitus SALCIDO (nonalcoholic steatohepatitis) CHF (congestive heart failure) Anasarca Surgical History (Updated 11/09/23 @ 23:35 by Gama Gray MD) History of rotator cuff surgery bilateralHistory of total knee arthroplasty bilateralHistory of sleeve gastrectomy History of hysterectomy Social History/Home Situation: Lives with , son, and [id number] (with lung cancer) in a private home with 3 steps to enter with rails.? Patient and family recently moved to [place] from [place], [place]. independent of all aspects of ADLs.? Uses front wheeled walker occasionally at home when pain in both knees gets too much. Equipment Owned/DME: [facility], [facility] Subjective: Feels much better. Agreeable to going home today. Still has mild itching. Objective: General Observation:Sitting on chair in 's room at hospital. ?High BMI. Mental Status: Alert and oriented as to person, place, time, and purpose. Able to pay attention, focus, and respond appropriately. Pain: Denies ROM: Right Upper Extremity: ? Shoulder Flexion allows up to 100 degrees. Shoulder abduction allows up to 100 degrees. Elbow flexion WFL. Wrist flexion WFL. Functional opening and closing of hand WFL. Left Upper Extremity:? Shoulder Flexion allows up to 100 degrees. Shoulder abduction allows up to 100 degrees. Elbow flexion WFL. Wrist flexion WFL. Functional opening and closing of hand WFL. Right Lower Extremity: Hip flexion limited to about 100 degrees due to body shape. Hip abduction WFL. Knee flexion WFL. Ankle dorsiflexion to neutral only. Ankle plantarflexion WFL. Left Lower Extremity: Hip flexion limited to about 100 degrees due to body shape. Hip abduction WFL. Knee flexion WFL. Ankle dorsiflexion to neutral only. Ankle plantarflexion WFL. Strength: Right Upper Extremity: Shoulder flexors 3-/5. Shoulder abductors 3-/5. Elbow flexors 4-/5. Elbow extensors 4-/5. Alodize Machine Helper strong. Left Upper Extremity: Shoulder flexors 3-/5. Shoulder abductors 3-/5. Elbow flexors 4-/5. Elbow extensors 4-/5. Alodize Machine Helper strong. Right Lower Extremity: Hip flexors 3+/5. Hip abductors 4-/5. Knee flexors 4-/5. Knee extensors 4-/5. Ankle dorsiflexors 3-/5. Ankle plantarflexors 4-/5. Left Lower Extremity: Hip flexors 3/5. Hip abductors 4-/5. Knee flexors 4-/5. Knee extensors 4-/5. Ankle dorsiflexors 3-/5. Ankle plantarflexors 4-/5. Bed Mobility/Transfers: Supine to sit independent Sit to stand with independent with FWW Stand to sit with independent with FWW Bed to reclining chair independent with FWW Reclining chair to bed cindependent with FWW Gait: 300 feet independent with FWW. Balance: Static Sitting: Normal Dynamic Sitting: Normal Static Standing: Fair Dynamic Standing: Fair Special Tests: Mobility Limitations Standardized Measure [facility]-PAC 6 clicks Basic Mobility Inpatient Short Form: Raw Score: 24? CMS Score: 0% deficit? ? ? Informed Consent/Education:? Patient was instructed in purpose of PT consult. Agreeable to home health PT services Assessment: Patient presents with clinical signs and symptoms consistent with current/admitting diagnoses that have resulted to mobility limitations, gait instability, generalized weakness, and overall ADL decline as demonstrated by the following impairment level findings: 1.? Decreased strength to B UE/LE major muscle groups 2.? Impaired standing balance 3.? Impaired activity tolerance Impairments are contributing to the following functional limitations: 1.? Difficulty with ambulation without assistive device 2.? Increased completion time for mobility ADL performance 3.? Increased risk for falls Patient is assessed as a [id number] low complexity based on the following: History: 67-year-old female with past medical history as indicated above Examination: As above Presentation: Stable Decision Makin low complexity Goals: N/A. PT evaluation only. Plan of Care/Treatment Plan: N/A. PT evaluation only. DISCHARGE RECOMMENDATIONS: [] ? Home with no services [] [X] ? Home with services.? Home when medically cleared by hospitalist.? Home when medically cleared by hospitalist.? Recommend home health PT services in order to progress mobility level using least restrictive assistive ambulatory device, assess home safety, identify additional equipment needs, and establish a functional maintenance program that will increase ability of patient to remain at home. [] ? Home with outpatient PT. [] ? SNF for continued rehabilitation [] [] ? [facility] [] [] ? SNF versus LTC based on ability to participate and progress [] TREATMENT CODE/TIME: 55134 x 21 minutes beginning at 11:15 am. Thank you for the opportunity to participate in the care of this patient. Kayla Simpson PT, DPT, CLT [facility] [place], [place]
[2023-11-13 12:12] VITALS: BP 103/59; PULSE 71; RESP 22; O2SAT 91
[2023-11-13 13:45] VITALS: BP 114/53; PULSE 75; TEMP 37; O2SAT 91
--- NOTE | 2023-11-13 14:00 | DSE_ITS ---
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 Sucralfate 1 g before meals and at bedtime been added to her GI protective regimen. Patient is to follow-up with her GI specialist at [facility] for repeat endoscopy as per her GI specialist recommended schedule. (3) Encephalopathy, hepatic: Status: Ruled-out (4) Abdominal pain: Status: Resolved (5) History of peptic ulcer disease: (6) SALCIDO (nonalcoholic steatohepatitis): (7) Type 2 diabetes mellitus: (8) Cirrhosis: (9) Hypertensive disorder: (10) JAYDEN (obstructive sleep apnea): Status: Chronic (11) Bladder spasm: Status: Acute Discharge Plan Disposition Patient Disposition: Home Condition: Improving Discharge Details Reason For Visit: anemia Admit Date/Time: 11/09/23 20:52 Admit Provider: Gama Gray Attending Provider: Gama Gray Primary Care Provider: Jefe Coffey Hospital Course Hospital Course: 68-year-old female with history of Salcido and cirrhosis as well as gastric antral vascular ectasia presented emergency department with recurrent GI bleeding. She was found to be severely anemic. Hemoglobin was down to 6 g. Patient was not having any hematemesis and initially she denied any melena but on further review it turns out she had been having some dark black streaks through her normal dark brown stools. She was transfused 2 units of packed red cells and hemoglobin came up to 8.1 g and has remained stable. Hospital course was complicated by bladder spasms for which she was started on oxybutynin. She also had tinea infection was placed on fluconazole. She was kept on her usual doses of Protonix twice a day however she will be discharged home on Carafate as well for GI protection. Patient be discharged home on a 10-day course of fluconazole. Patient was treated with iron sucrose while hospitalized for her chronic iron deficiency anemia. It is recommended that the patient follow-up with her hemat ologist at [facility] for further iron infusions and monitoring of her hemoglobin and hematocrit. Patient is to follow-up with her accredited farm manager at [facility] for repeat EGD. Patient should call her accredited farm manager to be seen within the next 3 to 4 weeks. Patient should follow-up with her primary care provider Dr. Jefe Coffey in the next week. CBC has been ordered to be repeated in the next week to monitor her anemia. Home Meds and New Rx's Prescriptions: New fluconazole 100 mg Tablet 100 mg PO DAILY 10 Days Qty: 10 0RF oxybutynin chloride 5 mg Tablet 5 mg PO BID Qty: 60 0RF sucralfate 100 mg/mL suspension 10 ml PO QACHS Qty: 1200 0RF Continued ondansetron 4 mg tablet,disintegrating 4 mg PO Q8H PRN doxepin 10 mg capsule 10 mg PO QHS lactulose 10 gram/15 mL solution 30 g PO BID eszopiclone [Lunesta] 1 mg tablet 1 mg PO QHS fexofenadine [Uyen Allergy] 180 mg tablet 180 mg PO HS Qty: 30 2RF oxycodone 5 mg tablet 5 mg PO Q6H PRN torsemide 40 mg tablet 40 mg PO DAILY Jardiance 10 mg tablet 10 mg PO DAILY Entresto 24-26 mg tablet 1 tab PO BID metformin 1,000 mg Tablet 1,000 mg PO BID ropinirole 2 mg Tablet 2 mg PO BID nystatin 100,000 unit/gram Powder 6,000,000 unit topical TID Qty: 60 0RF Rx Instructions: apply to reddened skin folds fluoxetine 40 mg capsule 40 mg PO DAILY Patient Comments: pt states not taking it right now pantoprazole 40 mg Tablet,Delayed Release (Dr/Ec) 40 mg PO BID polyethylene glycol 3350 17 gram Powder In Packet 17 g PO DAILY PRN PRN (Reason: Constipation) Qty: 0 0RF Discharge Instructions Instructions: Gastrointestinal Bleeding (DC), Anemia (DC), Capsule Endoscopy (DC) Stand Alone Forms: Nursing Discharge Form Referrals: [facility] [Provider Group] (please get patient appointment in the next week to follow up her anemia) GASTRO[facility]OLOGY,[facility] [OTHER] - (patient needs follow up regarding recent UGI bleed) Jefe Coffey [Primary Care Provider] - (needs follow up in one week) Activity:: Activity as Tolerated Equipment/Supplies:: No Equipment Needed Diet:: Carb Counting Discharge Orders Discharge Orders: Discharge Order (Routine); Ordered 11/13/23 Ordered By: Gama Gray Other Ambulatory Orders: Complete Blood Count w/Diff (Routine) Timeframe: 1 Week Facility: [facility] - Location: Laboratory Outpatient - [facility] Ordered By: Gama Gray DS: Summary Time Spent with Patient providing and/or coordinating discharge services: Greater than 30 minutes Specific discharge activities: Interview/exam of patient; review of discharge instructions, completion of prescriptions/discharge instructions; discussion w/ nursing and CM; documentation of hospital visit Status at Discharge Functional status at discharge: uses cane/walker Overall status at discharge: patient is back to baseline Mental Status: mental status grossly normal Speech and Movement: speech and movement normal Mood: congruent mood Affect: normal affect Quality:SDOH Health Related Social Needs: Health related social needs inadequate housing, transp o insecurity Exam Narrative Exam Narrative: Eli is sitting up in her bedside she is alert and oriented x 3 no acute distress. Lungs are clear to auscultation Heart is regular with a soft systolic ejection murmur over the second right intercostal space Abdomen obese soft and nontender Extremities without peripheral edema Psych Mental Status: mental status grossly normal Speech and Movement: speech and movement normal Mood: congruent mood Affect: normal affect DS: Data Vitals/I&O Vitals and I&O: Vital Signs Temperature 37.0 C 11/13/23 13:45 Temperature Source Temporal Artery Scan 11/13/23 13:45 Pulse 75 11/13/23 13:45 Pulse Rhythm Regular 11/13/23 13:11 Pulse 87 11/09/23 21:31 Respiratory Rate 22 11/13/23 12:12 Respiratory Effort Normal, Non-Labored 11/13/23 13:11 Respiratory Depth Normal 11/13/23 13:11 Respiratory Pattern Normal 11/13/23 13:11 Blood Pressure 114/53 L 11/13/23 13:45 Blood Pressure Mean 79 11/09/23 21:31 Blood Pressure Position Sitting 11/09/23 19:20 Pulse Oximetry 91 L 11/13/23 13:45 Oxygen Delivery Method Room Air 11/13/23 13:45 Oxygen Flow Rate 0 11/13/23 13:45 Pain Level 1 11/13/23 13:45 Comment Patient states it feels like all my energy ran out. 11/13/23 13:45 Intake & Output 11/12/23 11/13/23 11/13/23 23:59 11:59 23:59 Intake Total 200 / 320 Output Total 2200 / 2900 550 / 550 Balance -1999 / -2580 -550 / -550 Intake: IV 200 / 320 Output: Urine 2200 / 2900 550 / 550 Other: Urine Color Yellow Yellow Urine Appearance Clear Clear Clear Urine Odor Normal Normal Comment Voids independently. Voiding Methods Toilet Toilet Data Completed and Pending Labs on day of discharge: Labs from last 24 hours 11/13/23 11/12/23 11/10/23 06:32 16:20 06:40 WBC 5.65 RBC 3.69 L Hgb 8.4 L 8.5 L Hct 28.7 L 29.1 L MCV 78 L MCH 22.8 L MCHC 29.3 L RDW 16.8 H Plt Count 106 L MPV 12.3 H Immature Gran % 0.4 Neutrophils % 57.9 Lymphocytes % 21.9 Monocytes % 13.3 Eosinophils % 5.1 Basophils % 1.4 Nucleated RBC % 0.0 Absolute Neutrophils 3.27 Absolute Lymphocytes 1.24 Absolute Monocytes 0.75 Absolute Eosinophils 0.29 Absolute Basophils 0.08 Sodium 139 Potassium 3.4 L Chloride 101 Carbon Dioxide 35.9 H Anion Gap 2.1 L BUN 21 H Creatinine 1.3 H Est GFR (CKD-EPI 2020) 44.79 Glucose 221 H Fructosamine 481 H Calcium 8.8 Magnesium 1.9 Ammonia 57 H 33 H PFSH All Active Problems (Updated 11/13/23 @ 14:01 by Gama Gray MD) Discharge planning issues (Acute) Bladder spasm (Acute) GAVE (gastric antral vascular ectasia) (Acute) History of oophorectomy, unilateral (Acute) Anemia (Chronic) Generalized pruritus (Acute) Weakness (Acute) Acute hip pain (Acute) Hypersomnia (Acute) Hyperglycemia due to type 2 diabetes mellitus (Acute) No-show for appointment (Acute) Submucosal neoplasm of stomach (Acute) JAYDEN (obstructive sleep apnea) (Chronic) Lung nodule (Acute) Biliary dyskinesia (Acute) Atypical angina (Acute) Acquired arteriovenous malformation (Acute) Medical History Dermoid cyst History of peptic ulcer disease Osteoarthritis Pituitary cyst Pancreatitis Hypertensive disorder Hepatic encephalopathy Excess skin of eyelid Edema Dyspnea Atrophy of vagina Atrophic vaginitis Actinic keratosis Pituitary adenoma Restless legs Neoplasm of parotid gland Lumbar spondylosis Lesion of esophagus Dyslipidemia Depressive disorder Crohn's disease Chronic low back pain Anxiety Anemia Cirrhosis Type 2 diabetes mellitus SALCIDO (nonalcoholic steatohepatitis) CHF (congestive heart failure) Anasarca Surgical History History of rotator cuff surgery bilateral History of total knee arthroplasty bilateral History of sleeve gastrectomy History of hysterectomy Family History Brother Cancer Lung Alcohol use disorder 2 older brothers Social History Smoking/Tobacco Use Status: Never Smoking risk assessment performed?: Yes Alcohol Intake: never Drug use: Never Substance use type: does not use Housing: apartment Current gender identity: female Do you feel safe at home: Yes Do you feel safe in your relationship?: Yes Additional Social history: Lives with Arslan, and son in [place]. Moved from [place] in 2019. Has a dog and 7 pet birds. Time Spent with Patient Time Spent with Patient: <45 minutes Time was spent: preparing to see the patient(eg.review tests), ordering medications,tests, procedures, referring, communicating with other health caregivers homecare, indepentently interpreting results, counseling the patient and care coordination
[2023-11-13] MEDS: Potassium Chloride Liquid 20 MEQ PKT PO (14:23)
--- NOTE | 2023-11-13 17:17 | CMDISCH_ITS ---
Date of service: 11/13/23 Time of Service: 17:17 LACE Index Scoring Tool Questions: Length of Stay (in days): 4 - 6 Was the patient admitted via the E.D.?: Yes Comorbidities: Diabetes w/o Complication, Congestive Heart Failure, Any Tumor and Liver or Renal Disease E.D. Visits: 4 Answers: Total Score: 16 Risk of Readmission: High Risk Care Management Discharge Plan Reason for Hospitalization: Anemia Discharge Plan: Re will be discharged home with new home health services for PT. She will follow up with her community providers and plan of care and transport with RCT coordinated by CM. Patient/Family Education Needs: Review of discharge instructions, limitations, activity, follow up plan, Discuss Ask Me Three SDOH Health Related Social Needs: Health related social needs inadequate housing, transp o insecurity Health related social needs: inadequate housing(Z59.1) and transportation insecu rity(Z59.82)
== END 2023-11-13 16:26 | disposition home or self-care (01) ==
LOC: ER 21:39 → MS 21:53
PROVIDERS: Internal Medicine; Admitting Provider Internal Medicine; Emergency Provider Emergency Medicine; PCP Family Medicine; Visit Provider Internal Medicine
DX: K31.811 Angiodysplasia of stomach and duodenum with bleeding (principal); D50.0 Iron deficiency anemia secondary to blood loss (chronic); Z87.11 Personal history of peptic ulcer disease; K75.81 Nonalcoholic steatohepatitis (NASH); I50.9 Heart failure, unspecified; E11.9 Type 2 diabetes mellitus without complications; K74.69 Other cirrhosis of liver; G47.33 Obstructive sleep apnea (adult) (pediatric); N32.89 Other specified disorders of bladder; Z79.84 Long term (current) use of oral hypoglycemic drugs; I11.0 Hypertensive heart disease with heart failure; D72.819 Decreased white blood cell count, unspecified; Z79.899 Other long term (current) drug therapy; R32 Unspecified urinary incontinence; K85.90 Acute pancreatitis without necrosis or infection, unspecified; B35.9 Dermatophytosis, unspecified
CPT/HCPCS: 00123; 36415; 36430; 80048; 80053; 80061; 80076; 83690; 86850; 86900; 86901; 86920; 93005; 96365; 96366; 96367; 96372; 96375; 97161; 99291; 74177; 81003; 82140; 82270; 82607; 82728; 82746; 82985; 83540; 83550; 83615; 83735; 83880; 84425; 84466; 84484; 85014; 85018; 85025; 85045; 85610; 93010; 99223; 99232; 99233; 99239; G0378; J1756; J1815; J2405; J2470; J3475; J3480; J3490; P9016

== ENCOUNTER 2023-12-05 04:46 | Outpatient (CLI) | payer MEDICARE, SELFPAY ==
[2023-12-05 08:39] LABS: Abs Immature Grans 0.01 10^3/uL (0.0-0.06); Absolute Basophil Count 0.05 10^3/uL (0.0-0.2); Absolute Eosinophil Count 0.29 10^3/uL (0.0-0.7); Absolute Lymphocyte Count 1.18 10^3/uL (1.2-3.4); Absolute Monocyte Count 0.41 10^3/uL (0.1-0.8); Basophils % 1.2; HCT 31.3 % (36.0-46.0); HGB 9.2 g/dL (11.2-15.7); Immature Grans % 0.2; Lymphocytes % 28.5; MCH 23.4 pg (27.0-33.0); MCHC 29.4 % (32.0-36.0); MCV 79 fL (80-95); MPV 9.1 fL (8.0-11.0); Monocytes % 9.9; Neutrophils % 53.2; Platelet Count 108 10^3/uL (130-400); RBC 3.94 10^6/uL (3.93-5.22); RDW 20.9 % (11.7-14.6); RDW-SD 60.2 fL; Reticulocyte 1.3 % (0.5-2.4); WBC 4.14 10^3/uL (4.4-10.8)
[2023-12-05 08:59] LABS: Anisocytosis 2+; Diff Comment RBC Morph Reviewed
[2023-12-05 09:05] LABS: ALT 24 U/L (14-59); AST 32 U/L (15-37); Albumin 2.7 g/dL (3.4-5.0); Alkaline Phosphatase 214 U/L (46-116); Anion Gap 2.9 mmol/L (3-11); BUN 9 mg/dL (7-18); Bilirubin, Total 1.3 mg/dL (0.2-1.0); CO2 32.1 mmol/L (21.0-32.0); CREATININE 0.7 mg/dL (0.55-1.02); Calcium 8.7 mg/dL (8.5-10.1); Chloride 106 mmol/L (98-107); Estimated GFR 94.15 (mL/min/1.73m2); Ferritin 28 ng/mL (8-252); Glucose 181 mg/dL (74-106); Sodium 141 mmol/L (136-145); Total Protein 6.2 g/dL (6.4-8.2)
== END 2023-12-05 04:47 | disposition home or self-care (01) ==
LOC: LBO 04:47
PROVIDERS: PCP Family Medicine; Visit Provider Nurse Practitioner Family
DX: D50.9 Iron deficiency anemia, unspecified (principal)
CPT/HCPCS: 36415; 80053; 82728; 85025; 85045

== ENCOUNTER → 2023-12-12 13:16 | Outpatient (BNVA) | payer MEDICARE, SELFPAY | PROVIDERS: PCP Family Medicine; Visit Provider Psychiatry & Neurology Neurology | DX: G47.33 Obstructive sleep apnea (adult) (pediatric) (principal); G47.10 Hypersomnia, unspecified; R29.818 Other symptoms and signs involving the nervous system; H53.2 Diplopia | CPT/HCPCS: 99214 ==

== ENCOUNTER 2024-01-23 02:20 | Inpatient (IN) | payer MEDICARE, SELFPAY ==
[2024-01-23] VITALS (33 sets, daily range): BP systolic 141–170; BP diastolic 42–76; PULSE 72–121; RESP 14–26; TEMP 36.3–39.5; O2SAT 90–97
--- NOTE | 2024-01-23 02:15 | DI.RAD_ITS ---
Exam(s) XR PORTABLE CHEST AP EXAM: XR PORTABLE CHEST AP CLINICAL HISTORY: cough, fever TECHNIQUE: 2D digital imaging was performed. COMPARISON: CT CT ABDOMEN PELVIS W from 06/29/2023 CR,XR XR CHEST 1V IN DI DEPT from 06/29/2023 FINDINGS: Pulmonary vascular prominence is again noted. LUNGS: Clear. No pleural abnormality seen. HEART: Enlarged, unchanged. AORTA: Normal diameter. BONES: Old left clavicular fracture noted. Resection of the right distal clavicle. Degenerative marquez nges noted in the spine. Soft tissues: Unremarkable. IMPRESSION: No acute findings. DATA REPOSITORY: RADIATION DOSE DELIVERED:
--- NOTE | 2024-01-23 02:15 | DI.CT_ITS ---
Exam(s) CT HEAD WO EXAM: CT HEAD WO CLINICAL HISTORY: altered, weak, fall?. TECHNIQUE: Imaging Protocol: Axial computed tomography images with coronal and sagittal reformatted images were created and reviewed COMPARISON: CT CT HEAD WO from 02/03/[address] HEAD WO from 06/29/2023 FINDINGS: Ventricles and Extra axial spaces: Normal in size and morphology for the patient's age. Hemorrhage: None. Cerebral parenchyma: No evidence of acute infarct or mass. Midline shift: None. Brainstem/Cerebellum: Normal. Calvarium: Normal. Visualized Paranasal sinuses:Clear. Mastoids: Clear. Soft Tissues: Unremarkable. ORBITS: Unremarkable. PITUITARY: Hyperdense pituitary adenoma again noted. Unchanged in size and appearance. IMPRESSION: No acute intracranial process. Stable pituitary adenoma. RADIATION DOSE DELIVERED: Total DLP DATA REPOSITORY: All CT scans at this facility are submitted to the National Radiology Data Registry (NRDR) Dose Index Registry (DIR) with the [employer] (A[employer]). RADIATION OPTIMIZATION: All CT scans at this facility use at least one of these dose optimization te chniques: automated exposure control; mA and/or kV adjustment per patient size (includes targeted exa ms where dose is matched to clinical indication); or iterative reconstruction.
--- NOTE | 2024-01-23 02:26 | ED.GENADUL_ITS ---
Discharge Plan Disposition Patient Disposition: Admit to [facility] Condition: Improving Discharge Details Chief Complaint: GenMedical Clinical Impression: Urinary tract infection, Sepsis Admit Date/Time: 01/23/24 04:32 Admit Provider: Devin Azar Attending Provider: Devin Azar Primary Care Provider: Jefe Coffey ED Provider: Yo Lopez HPI General Date/Time Provider Initiated Documentation: 01/23/24 02:24 . HPI Narrative: 68 year-old with gastric antral vascular ectasias, recurrent GI bleeds, anemia on iron infusions, h/o pancreatitis due to CBD obstruction, DM2, CHF with an asarca, HLD, depression, anxiety, RLS, pituitary mass, JAYDEN with CPAP, lap band surgery 07/2012, sleeve gastrectomy 2014, liver cirrhosis with splenomegaly, and portal hypertension presents today for evaluation of fever and confusion. EMS states that family stated that this evening the patient became quite weak confused and altered. She has had a mild cough. EMS was eventually called because of this, on their arrival they noted that her blood sugar was normal, vital signs demonstrate mild tachycardia, and she was febrile. She was brought in for further assessment. Patient has no complaints right now. She is pleasant, but only ANO x 1. She denies any headache, chest pain, or abdominal pain. No other modifying factors. Related Data Home Medications Medication Instructions Recorded Confirmed metformin 1,000 mg tablet 1,000 mg PO BID 11/09/22 12/12/23 ropinirole 2 mg tablet 2 mg PO BID 11/09/22 12/12/23 pantoprazole 40 mg tablet,delayed 40 mg PO BID 12/15/22 12/12/23 release oxycodone 5 mg tablet 5 mg PO Q6H PRN 01/23/23 12/12/23 nystatin 100,000 unit/gram topical 6,000,000 unit topical TID #60 02/05/23 12/12/23 powder grams doxepin 10 mg capsule 10 mg PO QHS 03/27/23 12/12/23 ondansetron 4 mg disintegrating 4 mg PO Q8H PRN 03/27/23 12/12/23 tablet fluoxetine 40 mg capsule 40 mg PO DAILY 05/18/23 12/12/23 lactulose 10 gram/15 mL oral 30 g PO BID 06/26/23 12/12/23 solution polyethylene glycol 3350 17 gram 17 g PO DAILY PRN PRN Constipation 07/01/23 12/12/23 oral powder packet #0 ea empagliflozin 10 mg tablet 10 mg PO DAILY 10/08/23 12/12/23 (Jardiance) sacubitril 24 mg-valsartan 26 mg 1 tab PO BID 10/08/23 12/12/23 tablet (Entresto) torsemide 40 mg tablet 40 mg PO DAILY 10/08/23 12/12/23 fexofenadine 180 mg tablet 180 mg PO HS #30 tabs 11/08/23 12/12/23 ([facility]) oxybutynin chloride 5 mg tablet 5 mg PO BID #60 tabs 11/13/23 12/12/23 semaglutide 0.25 mg or 0.5 mg (2 0.25 mg subcut QWEEK 12/12/23 12/12/23 mg/3 mL) subcutaneous pen injector ([employer]) Previous Rx's Medication Instructions Recorded nystatin 100,000 unit/gram topical 6,000,000 unit topical TID #60 02/05/23 powder grams polyethylene glycol 3350 17 gram 17 g PO DAILY PRN PRN Constipation 07/01/23 oral powder packet #0 ea fexofenadine 180 mg tablet 180 mg PO HS #30 tabs 11/08/23 ([facility]) oxybutynin chloride 5 mg tablet 5 mg PO BID #60 tabs 11/13/23 Allergies Allergy/AdvReac Type Severity Reaction Status Date / Time Penicillins Allergy Severe Swelling/Ed Verified 12/12/23 13:28 sophie tramadol Allergy Severe Swelling/Ed Verified 12/12/23 13:28 sophie apricot Allergy Intermediate Hives Verified 12/12/23 13:28 ferrous sulfate Allergy Unknown Other (See Verified 12/12/23 13:28 Comment) raspberry Allergy Other (See Verified 12/12/23 13:28 Comment) vancomycin AdvReac Intermediate Other (See Verified 12/12/23 13:28 Comment) General CHELA: 3 Review of Systems All systems reviewed & are unremarkable except as noted in HPI and below Exam Narrative Exam Narrative: 1.Const: Well-nourished, Well-developed, appearing stated age 2.Eyes: PERRL, no conjunctival injection, and symmetrical lids. 3.ENT: Atraumatic external nose and ears. Moist MM. Neck: Symmetric, trachea midline, No thyromegaly. Patient demonstrates good movement of cervical neck. There is no nuchal rigidity, no nuchal tenderness. Patient is able to flex the neck without any difficulty or significant pain. Negative Kernig's and Brudzinski sign. 4.CVS: +S1/S2, No murmurs or gallops. Peripheral pulses 2+ and equal in all extremities. Brisk capillary refill in all extremities. 5.RESP: Unlabored respiratory effort. Clear to auscultation bilaterally. No wheezes rales or rhonchi 6.GI: Soft, Nontender/Nondistended, No hepatosplenomegaly. No guarding or rebound. 7.MSK: Normocephalic/Atraumatic, Extremities w/o deformity or ttp No cyanosis or clubbing, Normal movement of all extremities 8.Skin: Warm, Dry. No rashes or lesions. 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 Sensation grossly intact, no focal neurologic deficits. 10.Psych: (AAO) x1. Appropriate mood and affect Medical Decision Making 68 year-old with gastric antral vascular ectasias, recurrent GI bleeds, anemia on iron infusions, h/o pancreatitis due to CBD obstruction, DM2, CHF with anasarca, HLD, depression, anxiety, RLS, pituitary mass, JAYDEN with CPAP, lap band surgery 07/2012, sleeve gastrectomy 2014, liver cirrhosis with splenomegaly, and portal hypertension presents today for evaluation of fever and confusion. EMS states that family stated that this evening the patient became quite weak confused and altered. She has had a mild cough. EMS was eventually called because of this, on their arrival they noted that her blood sugar was normal, vital signs demonstrate mild tachycardia, and she was febrile. She was brought in for further assessment. Patient has no complaints right now. She is pleasant, but only ANO x 1. She denies any headache, chest pain, or abdominal pain. No other modifying factors. Exam demonstrates well-appearing female, notably pleasant, no nuchal rigidity, lung sounds are clear, abdomen nontender. She is quite pleasant but ANO x 1. She is notably febrile, mild to moderately tachycardic. Differential includes bacteremia, sepsis, UTI, pneumonia. No clear evidence of ulcers. No evidence to suggest bacterial peritonitis. No nuchal rigidity to suggest meningitis. We will gently rehydrate, treat her fever with Toradol, get a CT scan of the head to rule out acute process or change, get a chest x-ray to evaluate for pneumonia, collect urine, monitor closely get blood cultures and reassess. 3:32 AM Laboratory workup shows no white count, platelets slightly low at 89, hemoglobin notably stable at 11.9, however patient does have an elevated lactate of 2.7, and evidence of urinary tract infection with 5-10 WBCs, nitrite positive. Ammonia level is also elevated at 75. COVID flu and RSV testing is still pending. CT scan of the head negative for acute process. Pituitary lesion appears stable. Chest x-ray shows evidence of a right hilar masslike opacity. Uncertain if this is tumor versus atypical vasculature. Will get a CT scan not emergently at this time for further assessment. We will give Xifaxan for the patient's elevated ammonia. Levofloxacin was started over 45 minutes ago for suspected infection. Patient's temperature is improving, heart rate is slightly improving. Patient otherwise remains hemodynamically stable. Discussed the case with the hospitalist Dr. Azar. He agrees with the assessment and plan. I have extensively reviewed the treatment plan with the patient. I have addressed all patient concerns at this time. I have also discussed the plan with the admitting physician and they agree with the current assessment and plan and have agreed to assume responsibility for the patient. All parties demonstrate verbal understanding and agreement with our assessment and plan at this time. The documentation in this chart was dictated using mygall dictation software. Please excuse any dictation errors. FINDINGS: Brain: No intracranial hemorrhage appreciated. No significant focal mass effect or significant midline shift. Generalized parenchymal volume loss. Cerebral ventricles: No disproportionate ventriculomegaly. Pituitary gland and sella: 1.2 cm hyperdense sellar mass. This is a known finding. Paranasal sinuses: Mild mucosal thickening in the ethmoid air cells. Mastoid air cells: No mastoid effusion. Bones/joints: No acute cranial vault fracture seen. Soft tissues: No acute findings. IMPRESSION: 1. No intracranial sequelae of trauma appreciated. 2. Nonacute findings as outlined above. Thank you for allowing us to participate in the care of your patient. Dictated and Authenticated by: Giovanna Ford MD 01/23/2024 3:27 AM Eastern Time ([place] & [place]) FINDINGS: Lungs: Pulmonary vascular congestion. 3.4 cm masslike opacity in the right hilum . Pleural spaces: No large pleural effusion seen. Heart/Mediastinum: Enlarged cardiac silhouette. Bones/joints: Widened acromioclavicular joints. Left clavicular fracture, age indeterminate but non healed. IMPRESSION: 1. Enlarged cardiac silhouette with pulmonary vascular congestion. Consider heart failure. 2. Right hilar masslike opacity, may represent distended vessels or lymphadenopathy. Mass lesion not excluded. Consider follow-up. 3. Additional findings as above. Thank you for allowing us to participate in the care of your patient. Dictated and Authenticated by: Giovanna Ford MD 01/23/2024 3:21 AM Eastern Time ([place] & [place] FINDINGS: Lungs: Subcentimeter right upper lobe nodules. Follow-up per institutional protocol if prior studies do not adequately document stability. Pleural spaces: No pleural effusion. Heart: No pericardial effusion. Lymph nodes: No acute abnormality. Vasculature: Evidence for portal hypertension with multiple collaterals including splenomegaly. Arterial calcifications. Liver: Cirrhotic liver. Spleen: Splenomegaly. Stomach and bowel: Gastric surgery. Distal gastric thickening, may be secondary to underdistention but underlying pathology cannot be excluded. Follow-up if clinically warranted.. Gastric lipoma noted. Intraperitoneal space: Stranding in the peripancreatic and mesenteric fat. Bones/joints: Nonacute non healed left clavicular fracture. Soft tissues: No acute pertinent abnormality appreciated. IMPRESSION: 1. No acute findings to explain reported symptoms. 2. Cirrhosis with evidence for portal hypertension. 3. Peripancreatic stranding may reflect more generalized edema or pancreatitis. Please correlate clinically. 4. Additional findings as above. Thank you for allowing us to participate in the care of your patient. Dictated and Authenticated by: Giovanna Ford MD 01/23/2024 4:35 AM Eastern Time ([place] & [place] Quality:SDOH Health Related Social Needs: Health related social needs inadequate housing, transp o insecurity Critical Care Time Critical Care Time Critical Care Time: Yes Total Critical Care Time: 45 Attestation: Upon my evaluation, this patient had a high probability of imminent or life- threatening deterioration, which required my direct attention, intervention, and personal management. I have personally provided 45 minutes of critical care time exclusive of time spent on separately billable procedures. Time includes review of laboratory data, radiology results, discussion with consultants, and monitoring for potential decompensation. Interventions were performed as documented. PFSH All Active Problems (Updated 01/23/24 @ 05:43 by Yo Lopez DO) Sepsis (Acute) Urinary tract infection (Acute) UTI (urinary tract infection) (Acute) Bladder spasm (Acute) GAVE (gastric antral vascular ectasia) (Acute) History of oophorectomy, unilateral (Acute) Anemia (Chronic) Generalized pruritus (Acute) Weakness (Acute) Acute hip pain (Acute) Hypersomnia (Acute) Hyperglycemia due to type 2 diabetes mellitus (Acute) No-show for appointment (Acute) Submucosal neoplasm of stomach (Acute) JAYDEN (obstructive sleep apnea) (Chronic) Lung nodule (Acute) Biliary dyskinesia (Acute) Atypical angina (Acute) Acquired arteriovenous malformation (Acute) Medical History Dermoid cyst History of peptic ulcer disease Osteoarthritis Pituitary cyst Pancreatitis Hypertensive disorder Hepatic encephalopathy Excess skin of eyelid Edema Dyspnea Atrophy of vagina Atrophic vaginitis Actinic keratosis Pituitary adenoma Restless legs Neoplasm of parotid gland Lumbar spondylosis Lesion of esophagus Dyslipidemia Depressive disorder Crohn's disease Chronic low back pain Anxiety Anemia Cirrhosis Type 2 diabetes mellitus SALCIDO (nonalcoholic steatohepatitis) CHF (congestive heart failure) Anasarca Surgical History History of rotator cuff surgery bilateral History of total knee arthroplasty bilateral History of sleeve gastrectomy History of hysterectomy Family History Brother Cancer Lung Alcohol use disorder 2 older brothers Social History Smoking/Tobacco Use Status: Never Smoking risk assessment performed?: Yes Alcohol Intake: never Drug use: Never Substance use type: does not use Housing: house Current gender identity: female Do you feel safe at home: Yes Do you feel safe in your relationship?: Yes Additional Social history: Lives with Arslan, and son in [place]. Moved from [place] in 2019. Has a dog and 7 pet birds.
[2024-01-23 02:39] LABS: BE (Venous) 4 mmol/L (-2-3); HCO3 (Venous) 28 mmol/L (23-28); O2 Sat (Venous) 81 %; TCO2 (Venous) 26 mmol/L (24-29); pCO2 (Venous) 40 mmHg (41-51); pH (Venous) 7.46 (7.31-7.41); pO2 (Venous) 43 mmHg
[2024-01-23 02:44] LABS: Lactate 2.7 mmol/L (0.6-1.4)
[2024-01-23 02:45] LABS: Abs Immature Grans 0.01 10^3/uL (0.0-0.06); Absolute Basophil Count 0.02 10^3/uL (0.0-0.2); Absolute Eosinophil Count 0.09 10^3/uL (0.0-0.7); Absolute Lymphocyte Count 0.75 10^3/uL (1.2-3.4); Absolute Monocyte Count 0.62 10^3/uL (0.1-0.8); Absolute Neutrophil Count 5.09 10^3/uL (1.2-6.7); Basophils % 0.3; Eosinophils % 1.4; HCT 36.4 % (36.0-46.0); HGB 11.9 g/dL (11.2-15.7); Immature Grans % 0.2; Lymphocytes % 11.4; MCH 28.5 pg (27.0-33.0); MCHC 32.7 % (32.0-36.0); MCV 87 fL (80-95); MPV 9.5 fL (8.0-11.0); Monocytes % 9.4; Neutrophils % 77.3; RBC 4.18 10^6/uL (3.93-5.22); RDW 19.8 % (11.7-14.6); RDW-SD 64.2 fL; WBC 6.58 10^3/uL (4.4-10.8)
[2024-01-23 02:47] LABS: Platelet Count 89 10^3/uL (130-400)
[2024-01-23] MEDS: Ketorolac 15 MG/ML VIAL IVP (02:51)
[2024-01-23] MEDS: Normal Saline 500 ML IV (02:52)
[2024-01-23] MEDS: levoFLOXacin 750 MG/150 ML BAG 100 MG IVPB (02:52)
[2024-01-23 03:05] LABS: Ammonia 75 umol/L (11-32)
[2024-01-23 03:07] LABS: INR 1.2 (0.9-1.1); PTT Activated 30.1 sec (23.6-32.8); Prothrombin Time 11.8 sec (9.1-11.1)
[2024-01-23 03:07] LABS: Bilirubin Negative (Negative); Blood Moderate (Negative); Clarity Cloudy (Clear); Glucose 100 mg/dL (Negative); Ketones Negative (Negative); Leukocyte Esterase Negative (Negative); Nitrite Positive (Negative); Specific Gravity 1.025 (1.005-1.025)
[2024-01-23 03:15] LABS: ALT 28 U/L (14-59); AST 37 U/L (15-37); Albumin 2.7 g/dL (3.4-5.0); Alkaline Phosphatase 203 U/L (46-116); Anion Gap 10.2 mmol/L (3-11); BUN 18 mg/dL (7-18); Bilirubin, Total 1.7 mg/dL (0.2-1.0); CO2 26.8 mmol/L (21.0-32.0); CREATININE 0.9 mg/dL (0.55-1.02); Calcium 8.8 mg/dL (8.5-10.1); Chloride 103 mmol/L (98-107); Estimated GFR 69.64 (mL/min/1.73m2); Glucose 205 mg/dL (74-106); Potassium 3.7 mmol/L (3.5-5.1); Sodium 140 mmol/L (136-145); TSH (W/Ref FT4) 1.19 uIU/mL (0.36-3.74); Total Protein 5.8 g/dL (6.4-8.2)
--- NOTE | 2024-01-23 03:15 | DI.CT_ITS ---
Exam(s) CT CHEST W EXAM: CT CHEST W CLINICAL HISTORY: chest mass, eval further TECHNIQUE: Imaging Protocol: Axial computed tomography images with coronal and sagittal reformatted images were created and reviewed CONTRAST MATERIAL: Intravenous: Omnipaque 350 Contrast volume:100 ml. COMPARISON: CT CT ABDOMEN PELVIS W from 12/13/[address] ABDOMEN PELVIS W from 11/11/2023 CR,XR XR PORTABLE CHEST AP from 01/23/2024 FINDINGS: Pulmonary parenchyma: No consolidation. No dominant measurable mass. Tracheobronchial tree: No bronchiectasis or mucous plugging. Mediastinum and Grace: No dominant adenopathy or fluid collection. Pleura: No effusion. No pneumothorax. Heart: The heart is mildly dilated. No coronary artery calcifications are seen. Aorta: Thoracic aorta non-dilated. Minimal atherosclerotic changes. Mild pulmonary artery prominence. Main pulmonary artery measures 3.3 cm. Upper abdomen: Enlarged spleen. Arm cirrhotic appearing liver. Status post cholecystectomy. Trace amount of ascites. Suture material at stomach. Varices. Small gastric lipoma. Bones: Degenerative changes in the spine. Old nonunited left clavicle fracture. Soft tissues: Unremarkable. IMPRESSION: No acute abnormality.No evidence of a mass. Overlap of the pulmonary arteries accounts for the right hilar density on chest x-ray. RADIATION DOSE DELIVERED: Total DLP DATA REPOSITORY: All CT scans at this facility are submitted to the National Radiology Data Registry (NRDR) Dose Index Registry (DIR) with the [employer] ([employer]). RADIATION OPTIMIZATION: All CT scans at this facility use at least one of these dose optimization te chniques: automated exposure control; mA and/or kV adjustment per patient size (includes targeted exa ms where dose is matched to clinical indication); or iterative reconstruction.
[2024-01-23 03:17] LABS: Bacteria Many HPF (Negative); C & S Indicated? Yes; Crystals Negative HPF (Negative); Epithelial Cells Few HPF (Negative); Mucus Negative (Negative)
[2024-01-23 03:18] LABS: ETHANOL BLOOD < 3.0 mg/dL (<10)
--- NOTE | 2024-01-23 03:21 | DI.VRAD_ITS ---
PROCEDURE INFORMATION: Exam: XR Chest Exam date and time: 01/23/2024 2:46 AM Age: 68 years old Clinical indication: Cough and fever; Additional info: Cough, fever TECHNIQUE: Imaging protocol: Radiologic exam of the chest. Views: 1 view. COMPARISON: No relevant prior studies are available for comparison. FINDINGS: Lungs: Pulmonary vascular congestion. 3.4 cm masslike opacity in the right hilum. Pleural spaces: No large pleural effusion seen. Heart/Mediastinum: Enlarged cardiac silhouette. Bones/joints: Widened acromioclavicular joints. Left clavicular fracture, age indeterminate but non healed. IMPRESSION: 1. Enlarged cardiac silhouette with pulmonary vascular congestion. Consider heart failure. 2. Right hilar masslike opacity, may represent distended vessels or lymphadenopathy. Mass lesion not excluded. Consider follow-up. 3. Additional findings as above. Dictated and Authenticated by: Giovanna Ford MD. Ordering:BRIANDA Ram MD
--- NOTE | 2024-01-23 03:27 | DI.VRAD_ITS ---
PROCEDURE INFORMATION: Exam: CT Head Without Contrast Exam date and time: 01/23/2024 3:14 AM Age: 68 years old Clinical indication: Altered mental status/memory loss; Confusion or disorientation; Additional info: Altered, weak, fall? TECHNIQUE: Imaging protocol: Computed tomography of the head without contrast. COMPARISON: CT HEAD WO 06/29/2023 7:35 PM FINDINGS: Brain: No intracranial hemorrhage appreciated. No significant focal mass effect or significant midline shift. Generalized parenchymal volume loss. Cerebral ventricles: No disproportionate ventriculomegaly. Pituitary gland and sella: 1.2 cm hyperdense sellar mass. This is a known finding. Paranasal sinuses: Mild mucosal thickening in the ethmoid air cells. Mastoid air cells: No mastoid effusion. Bones/joints: No acute cranial vault fracture seen. Soft tissues: No acute findings. IMPRESSION: 1. No intracranial sequelae of trauma appreciated. 2. Nonacute findings as outlined above. Dictated and Authenticated by: Giovanna Ford MD. Ordering:BRIANDA Ram MD
[2024-01-23] MEDS: Rifaximin 550 MG TAB PO (03:39)
[2024-01-23 03:53] LABS: Procalcitonin 0.1 ng/mL
[2024-01-23 03:58] LABS: COVID-19 PCR Negative (Negative); Influenza A PCR Negative (Negative); Influenza B PCR Negative (Negative); RSV PCR Negative (Negative)
[2024-01-23 04:01] LABS: Source Nasopharynx
--- NOTE | 2024-01-23 04:07 | HPE_ITS ---
Date of service: 01/23/24 Time of Service: 04:07 Assessment and Plan Assessment and plan (1) UTI (urinary tract infection): Status: Acute Assessment and plan: UTI manifesting with dysuria and confusion; perhaps some contribution from hepatic encephalopathy. High fever, tachycardia and modest elevation lactate noted, but blood pressure stable, Procal 0.1 and patient mentating well at present; in short, early sepsis possible but I think not probable, and patient has already received antibiotics in any case. Will continue Levaquin, await cultures (blood and urine), hydrate, trend lactate. Medications all unconfirmed at present, will for the moment hold on ordering, until verified. Reviewed ADs, requests Full Code, though no prolonged life support measures. History of Present Illness History of Present Illness Chief Complaint: confusion Narrative: 68 female with multiple medical problems, including cirrhosis (SALCIDO), CHF, DM, recurrent GI bleed secondary gastric ectasia. Brought to ER tonight with one day of generalized weakness and confusion. In ER findings of note for temp to 39.5, white count 6.5, Hct 36, platelet 89 (baseline); urine with 5-10 WBC; lactate 2.7; viral swab triple negative; CXR similar to baseline (to my read) with prominent right hilar opacity and possible mild pulmonary congestion, and CT head without acute findings (old sellar mass). Culture obtained and patient given dose of Levaquin 750 mg IV. Also given dose Rifampin for ammonia of 75. I was asked to evaluate for admission. Patient states she generally feels fine at this point, though does note a degree of dysuria, and occasional midline LBP. Review of Systems Narrative: per HPI PFSH All Active Problems (Updated 01/23/24 @ 04:21 by Devin Azar MD) UTI (urinary tract infection) (Acute) Bladder spasm (Acute) GAVE (gastric antral vascular ectasia) (Acute) History of oophorectomy, unilateral (Acute) Anemia (Chronic) Generalized pruritus (Acute) Weakness (Acute) Acute hip pain (Acute) Hypersomnia (Acute) Hyperglycemia due to type 2 diabetes mellitus (Acute) No-show for appointment (Acute) Submucosal neoplasm of stomach (Acute) JAYDEN (obstructive sleep apnea) (Chronic) Lung nodule (Acute) Biliary dyskinesia (Acute) Atypical angina (Acute) Acquired arteriovenous malformation (Acute) Medical History Dermoid cyst History of peptic ulcer disease Osteoarthritis Pituitary cyst Pancreatitis Hypertensive disorder Hepatic encephalopathy Excess skin of eyelid Edema Dyspnea Atrophy of vagina Atrophic vaginitis Actinic keratosis Pituitary adenoma Restless legs Neoplasm of parotid gland Lumbar spondylosis Lesion of esophagus Dyslipidemia Depressive disorder Crohn's disease Chronic low back pain Anxiety Anemia Cirrhosis Type 2 diabetes mellitus SALCIDO (nonalcoholic steatohepatitis) CHF (congestive heart failure) Anasarca Surgical History History of rotator cuff surgery bilateral History of total knee arthroplasty bilateral History of sleeve gastrectomy History of hysterectomy Family History Brother Cancer Lung Alcohol use disorder 2 older brothers Social History Smoking/Tobacco Use Status: Never Smoking risk assessment performed?: Yes Alcohol Intake: never Drug use: Never Substance use type: does not use Housing: apartment Current gender identity: female Do you feel safe at home: Yes Do you feel safe in your relationship?: Yes Additional Social history: Lives with Arslan, and son in [place]. Moved from [place] in 2020. Has a dog and 7 pet birds. Meds Allergies and Home Medications Allergies Allergy/AdvReac Type Severity Reaction Status Date / Time Penicillins Allergy Severe Swelling/Ed Verified 12/12/23 13:28 sophie tramadol Allergy Severe Swelling/Ed Verified 12/12/23 13:28 sophie apricot Allergy Intermediate Hives Verified 12/12/23 13:28 ferrous sulfate Allergy Unknown Other (See Verified 12/12/23 13:28 Comment) raspberry Allergy Other (See Verified 12/12/23 13:28 Comment) vancomycin AdvReac Intermediate Other (See Verified 12/12/23 13:28 Comment) Home Medications Medication Instructions Recorded Confirmed Type metformin 1,000 mg tablet 1,000 mg PO BID 11/09/22 12/12/23 History ropinirole 2 mg tablet 2 mg PO BID 11/09/22 12/12/23 History pantoprazole 40 mg tablet,delayed 40 mg PO BID 12/15/22 12/12/23 History release oxycodone 5 mg tablet 5 mg PO Q6H PRN 01/23/23 12/12/23 History nystatin 100,000 unit/gram topical 6,000,000 unit topical TID #60 02/05/23 12/12/23 Rx powder grams doxepin 10 mg capsule 10 mg PO QHS 03/27/23 12/12/23 History ondansetron 4 mg disintegrating 4 mg PO Q8H PRN 03/27/23 12/12/23 History tablet fluoxetine 40 mg capsule 40 mg PO DAILY 05/18/23 12/12/23 History lactulose 10 gram/15 mL oral 30 g PO BID 06/26/23 12/12/23 History solution polyethylene glycol 3350 17 gram 17 g PO DAILY PRN PRN Constipation 07/01/23 12/12/23 Rx oral powder packet #0 ea empagliflozin 10 mg tablet 10 mg PO DAILY 10/08/23 12/12/23 History (Jardiance) sacubitril 24 mg-valsartan 26 mg 1 tab PO BID 10/08/23 12/12/23 History tablet (Entresto) torsemide 40 mg tablet 40 mg PO DAILY 10/08/23 12/12/23 History fexofenadine 180 mg tablet 180 mg PO HS #30 tabs 11/08/23 12/12/23 Rx (Uyen Allergy) oxybutynin chloride 5 mg tablet 5 mg PO BID #60 tabs 11/13/23 12/12/23 Rx semaglutide 0.25 mg or 0.5 mg (2 0.25 mg subcut QWEEK 12/12/23 12/12/23 History mg/3 mL) subcutaneous pen injector (Ozempic) Exam Narrative Exam Narrative: 165/49, 105, 39.5, 22, 96% RA. HEENT atraumatic, anicterric; neck supple; carotids brisk; lungs clear; heart RRR 3/6 sys murmur LUSB to jugular notch; abdomen soft and NT; extremities w/o edema; neuro seems slightly confused but able to converse appropriately, Ox3 and moves all 4s Results Labs 01/23/24 02:26 01/23/24 02:26 Labs: Laboratory Results - last 24 hr 01/23/24 01/23/24 01/23/24 02:26 02:34 02:48 WBC 6.58 RBC 4.18 Hgb 11.9 Hct 36.4 MCV 87 MCH 28.5 MCHC 32.7 RDW 19.8 H Plt Count 89 L MPV 9.5 Immature Gran % 0.2 Neutrophils % 77.3 Lymphocytes % 11.4 Monocytes % 9.4 Eosinophils % 1.4 Basophils % 0.3 Nucleated RBC % 0.0 Absolute Neutrophils 5.09 Absolute Lymphocytes 0.75 L Absolute Monocytes 0.62 Absolute Eosinophils 0.09 Absolute Basophils 0.02 PT 11.8 H INR 1.2 H APTT 30.1 VBG pH 7.46 H VBG pCO2 40 L VBG pO2 43 VBG HCO3 28 VBG Total CO2 26 VBG O2 Saturation 81 VBG Base Excess 4 H VBG Lactate 2.7 H* Sodium 140 Potassium 3.7 Chloride 103 Carbon Dioxide 26.8 Anion Gap 10.2 BUN 18 Creatinine 0.9 Est GFR (CKD-EPI 2020) 69.64 Glucose 205 H Calcium 8.8 Total Bilirubin 1.7 H AST 37 ALT 28 Alkaline Phosphatase 203 H Ammonia 75 H Total Protein 5.8 L Albumin 2.7 L Procalcitonin 0.1 TSH 1.19 Urine Color Yellow Urine Clarity Cloudy Urine pH 7.0 Ur Specific [place] 1.025 Urine Protein >=300 H Urine Ketones Negative Urine Blood Moderate H Urine Nitrite Positive H Urine Bilirubin Negative Urine Urobilinogen 1.0 H Ur Leukocyte Esterase Negative Urine RBC 5-10 H Urine WBC 5-10 Ur Epithelial Cells Few Urine Crystals Negative Urine Bacteria Many Urine Mucus Negative Ur Culture Indicated? Yes Urine Glucose 100 H Ethyl Alcohol < 3.0 COVID-19 Source Nasopharynx SARS-CoV-2 (PCR) Negative Influenza Type A (PCR) Negative Influenza Type B (PCR) Negative RSV (PCR) Negative Last Vital Signs Temp 39.5 C H 01/23/24 02:36 Pulse 105 H 01/23/24 02:31 Resp 22 01/23/24 02:31 BP 165/49 H 01/23/24 02:31 Pulse Ox 96 01/23/24 02:31 Time Spent Time spent with Patient: 55-74 minutes Time was spent: preparing to see the patient(eg.review tests), obtaining and/or reviewing separately otained hiistory, ordering medications,tests, procedures, referring, communicating with other health technical healthcare consultant and indepentently interpreting results
[2024-01-23] MEDS: Normal Saline - Diluent 50 ML VIAL IJ (04:21)
[2024-01-23] MEDS: Omnipaque 350 MG/ML 100 ML BTL IJ (04:22)
--- NOTE | 2024-01-23 04:35 | DI.VRAD_ITS ---
PROCEDURE INFORMATION: Exam: CT Chest With Contrast; Diagnostic Exam date and time: 01/23/2024 3:55 AM Age: 68 years old Clinical indication: Abnormal findings; Abnormal radiologic exam of lung or chest; Additional info: Chest mass, eval further TECHNIQUE: Imaging protocol: Diagnostic computed tomography of the chest with contrast. 3D rendering (Not supervised by radiologist): MIP and/or 3D reconstructed images were created by the technologist. Contrast material: OMNI 350; Contrast volume: 100 ml; Contrast route: INTRAVENOUS (IV); COMPARISON: No relevant prior studies are available for comparison. FINDINGS: Lungs: Subcentimeter right upper lobe nodules. Follow-up per institutional protocol if prior studies do not adequately document stability. Pleural spaces: No pleural effusion. Heart: No pericardial effusion. Lymph nodes: No acute abnormality. Vasculature: Evidence for portal hypertension with multiple collaterals including splenomegaly. Arterial calcifications. Liver: Cirrhotic liver. Spleen: Splenomegaly. Stomach and bowel: Gastric surgery. Distal gastric thickening, may be secondary to underdistention but underlying pathology cannot be excluded. Follow-up if clinically warranted.. Gastric lipoma noted. Intraperitoneal space: Stranding in the peripancreatic and mesenteric fat. Bones/joints: Nonacute non healed left clavicular fracture. Soft tissues: No acute pertinent abnormality appreciated. IMPRESSION: 1. No acute findings to explain reported symptoms. 2. Cirrhosis with evidence for portal hypertension. 3. Peripancreatic stranding may reflect more generalized edema or pancreatitis. Please correlate clinically. 4. Additional findings as above. Dictated and Authenticated by: Giovanna Ford MD. Ordering:BRIANDA Ram MD
[2024-01-23] MEDS: Lactated Ringers 1,000 ML 100 ML IV ×2 (06:03→16:28)
--- NOTE | 2024-01-23 06:11 | RESPIRATORY ---
RT seen pt. for JAYDEN diagnosis. Pt. states has CPAP machine but did not bring it here. Pt. refused to use hospital's CPAP machine, states will be okay without it. Pt. also states family member will be bring her CPAP machine if she is going to stay more nights in hospital. DME is [facility] per pt.
[2024-01-23 07:25] LABS: Lactate 1.7 mmol/L (0.6-1.4)
--- NOTE | 2024-01-23 08:56 | PDOC.CMIN ---
Date of service: 01/23/24 Time of Service: 08:56 Care Management Initial Assmt Initial Assessment REASON FOR HOSPITALIZATION:: uti PREVIOUS FUNCTIONAL STATUS/SOCIAL/FAMILY SUPPORTS:: Re lives in in a single family home in [place] with her Alexis. They have one child together, a son, who lives with them and 2 step daughters. One step daughter lives in [place] and the other is in [place]. She also has one grandson who lives in [place], [place]. 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 Re uses a walker for ambulation but does not receive any community services. CURRENT FUNCTIONAL STATUS:: Re was sitting up in bed getting ready to have lunch when CM met with her. She was pleasant and engaged easily with CM well known to her from many previous hospitalizations. Re was admitted last night due to fever and confusion. She is alert and oriented today and her T max today was 38 at 7:30 am. Re stated that she is feeling better and that things have been going well at home. Her Alexis was in and out of the hospital a few months ago for various issues, but Re stated that he has been doing well recently. She is not currently receiving any services at home and shared that she does not feel she will need any. ADVANCE DIRECTIVES:: none Has patient been provided with info about the portal/API?: Yes Did the patient sign up for the portal?: Yes CODE STATUS:: Full Code INSURANCE COVERAGE / FINANCIAL ISSUES:: [facility] Medicare Replacement PRIMARY CARE PHYSICIAN:: Jefe Coffey POTENTIAL DISCHARGE NEEDS:: follow up with PCP and plan of car PATIENT/FAMILY EDUCATION NEEDS:: Review of discharge instructions, activity, follow up plan, limitations, discuss Ask Me [employer]' TRANSPORTATION:: via private vehicle with family PLAN:: Anticipate Re will be discharged home when medically cleared. She will follow up with her PCP and plan of care and transport with family. CM will follow and continue to assess for discharge needs. PFSH All Active Problems (Updated 01/23/24 @ 05:43 by Yo Lopez DO) Sepsis (Acute) Urinary tract infection (Acute) UTI (urinary tract infection) (Acute) Bladder spasm (Acute) GAVE (gastric antral vascular ectasia) (Acute) History of oophorectomy, unilateral (Acute) Anemia (Chronic) Generalized pruritus (Acute) Weakness (Acute) Acute hip pain (Acute) Hypersomnia (Acute) Hyperglycemia due to type 2 diabetes mellitus (Acute) No-show for appointment (Acute) Submucosal neoplasm of stomach (Acute) JAYDEN (obstructive sleep apnea) (Chronic) Lung nodule (Acute) Biliary dyskinesia (Acute) Atypical angina (Acute) Acquired arteriovenous malformation (Acute) Medical History Dermoid cyst History of peptic ulcer disease Osteoarthritis Pituitary cyst Pancreatitis Hypertensive disorder Hepatic encephalopathy Excess skin of eyelid Edema Dyspnea Atrophy of vagina Atrophic vaginitis Actinic keratosis Pituitary adenoma Restless legs Neoplasm of parotid gland Lumbar spondylosis Lesion of esophagus Dyslipidemia Depressive disorder Crohn's disease Chronic low back pain Anxiety Anemia Cirrhosis Type 2 diabetes mellitus SALCIDO (nonalcoholic steatohepatitis) CHF (congestive heart failure) Anasarca Surgical History History of rotator cuff surgery bilateral History of total knee arthroplasty bilateral History of sleeve gastrectomy History of hysterectomy Family History Brother Cancer Lung Alcohol use disorder 2 older brothers Social History Smoking/Tobacco Use Status: Never Smoking risk assessment performed?: Yes Alcohol Intake: never Drug use: Never Substance use type: does not use Housing: house Current gender identity: female Do you feel safe at home: Yes Do you feel safe in your relationship?: Yes Additional Social history: Lives with Arslan, and son in [place]. Moved from [place] in 2020. Has a dog and 7 pet birds. SDOH(Care Management) Screening Will the Patient Participate in the Screening?: Yes Do you worry about having a steady place to live?: no Problems where you live: no known problems In the past 12 months, have you had to go without electric, gas, oil or water in your home?: no Have you or anyone in your house had to go without enough food to eat?: no Has lack of transportation kept you from medical appointments or from doing things needed for daily living?: no Has anyone in your support network made you feel unsafe for any reason?: no
--- NOTE | 2024-01-23 09:30 | RT.EKG_ITS ---
APPROVED REPORT Exam: Resting ECG Reason for Exam: SOB Patient Location: I HR:77 bpm ECG Measurements Heart Rate 77 AXIS UT 185 P 54 QRSd 109 QRS 47 QT 431 T 58 QTc 488 Conclusion Sinus rhythm...normal P axis, V-rate 50- 99 Probable left atrial enlargement...P >50mS, <-0.10mV V1 Borderline prolonged QT interval...QTc >485mS Mild baseline artifact
[2024-01-23] MEDS: Torsemide 20 MG TAB 40 MG PO (11:44)
--- NOTE | 2024-01-23 11:44 | RESPIRATORY ---
1030-Spoke with patient's son and confirmed he would be able to bring his mother's home CPAP machine to the hospital at some point today
[2024-01-23] MEDS: Pantoprazole 40 MG TABCR PO ×2 (11:45→20:18)
[2024-01-23] MEDS: rOPINIRole 1 MG TAB 2 MG PO ×2 (11:45→20:19)
[2024-01-23] MEDS: Enoxaparin 40 MG/0.4 ML SYR SC (12:37)
--- NOTE | 2024-01-23 13:37 | PHA.REVIEW2 ---
Pharmacy Admission Review Admission Clinical Review Admission Pharmacy Review: UTI (urinary tract infection) (Acute) Penicillins Allergy (Severe, Verified 12/12/23 13:28) Swelling/Edema tramadol Allergy (Severe, Verified 12/12/23 13:28) Swelling/Edema apricot Allergy (Intermediate, Verified 12/12/23 13:28) Hives ferrous sulfate Allergy (Unknown, Verified 12/12/23 13:28) Other (See Comment) raspberry Allergy (Verified 12/12/23 13:28) Other (See Comment) vancomycin Adverse Reaction (Intermediate, Verified 12/12/23 13:28) Other (See Comment) Resuscitation Status Full Code Height 5 ft 4 in Weight 105.4 kg Pharmacy Admission Review Renal Dosing Renal Dosing: BUN 18 mg/dL (7-18) 01/23/24 02:26 Creatinine 0.9 mg/dL (0.55-1.02) 01/23/24 02:26 Medications needing adjustments: Reviewed (CrCl 63.73 mL/min) List of meds needing interventions: Current medications okay Anticoagulation Anticoagulation: Hgb 11.9 g/dL (11.2-15.7) 01/23/24 02:26 Hct 36.4 % (36.0-46.0) 01/23/24 02:26 Plt Count 89 10^3/uL (130-400) L 01/23/24 02:26 INR 1.2 (0.9-1.1) H 01/23/24 02:26 Creatinine 0.9 mg/dL (0.55-1.02) 01/23/24 02:26 DVT Prophylaxis: Intervened (Patient did not have an order for any DVT prophylaxis, reached out to provider who asked that I put in an order for enoxaparin) Medications: Enoxaparin (40mg daily) Relevant Labs Relevant Labs: Sodium 140 mmol/L (136-145) 01/23/24 02:26 Potassium 3.7 mmol/L (3.5-5.1) 01/23/24 02:26 Chloride 103 mmol/L (98-107) 01/23/24 02:26 Electrolytes, C-Reactive P, ESR: Reviewed (INR 1.2, PLT count 89) DM Control DM Control: Glucose 205 mg/dL (74-106) H 01/23/24 02:26 Finger Stick Blood Glucose 155 0739 Finger Stick Blood Glucose 155 0739 DM Control: Reviewed Insulin Dosing, Diabetic Medication: Has order for metformin Cardiac Review Cardiac Review: Blood Pressure 141/46 0736 Blood Pressure 149/62 0607 Blood Pressure 149/62 0511 Blood Pressure 141/45 0431 BP, HR, EF%: Reviewed (BP 141/46 and HR 98) QTc Review QTc: Reviewed (488 from 01/23/24) IV to PO Switch IV Medications: Reviewed (IV levofloxacin) Home Meds Home Med List reviewed: Reviewed Relevent Home Meds Not ordered & why?: Jardiance, nystatin (PRN), ondansetron (PRN) oxybutynin, Miralax (PRN) and Ozempic Current Meds Current Medication Order Review: Intervened Comments: Orders were adjusted to match home med list: Lactulose: changed from 30g BID to 30mL TID Ropinirole: changed from BID to TID Pharmacy Antibiotic Review Relevant Labs: Relevant Labs 01/23/24 02:26 Procalcitonin 0.1 Pharmacy Antibiotic Activity: C/S review and Reviewed, no change Comments: Patient is on levofloxacin 750mg q24h for UTI, day 1. Blood and urine cultures are pending.
[2024-01-23] MEDS: Lactulose 20 GM/30 ML CUP PO ×2 (14:12→20:18)
[2024-01-23] MEDS: metFORMIN 500 MG TAB 1000 MG PO (17:18)
--- NOTE | 2024-01-23 19:53 | RESPIRATORY ---
Pt. home CPAP called [facility] 10 is in the room. RT inspected the device and filled out H2O. It is in good conditions. Has Mode VAuto IPAP of 20 cm H2O and EPAP of 12 cm H2O. DME is [facility].
[2024-01-23] MEDS: Doxepin 10 MG CAP 30 MG PO (20:38)
[2024-01-23] MEDS: oxyCODONE 5 MG TAB PO (20:39)
[2024-01-24] MEDS: levoFLOXacin 750 MG/150 ML BAG 100 MG IVPB (02:32)
[2024-01-24] MEDS: Lactated Ringers 1,000 ML 100 ML IV (02:33)
[2024-01-24 07:26] VITALS: BP 133/50; PULSE 84; RESP 15; TEMP 36.9; O2SAT 97
[2024-01-24] MEDS: Pantoprazole 40 MG TABCR PO (08:26)
[2024-01-24] MEDS: Lactulose 20 GM/30 ML CUP PO (08:26)
[2024-01-24] MEDS: metFORMIN 500 MG TAB 1000 MG PO (08:26)
[2024-01-24] MEDS: rOPINIRole 1 MG TAB 2 MG PO (08:27)
--- NOTE | 2024-01-24 09:08 | W.PM.DS.N ---
Date of service: 01/24/24 Time of Service: 09:32 DS: Diagnosis Discharge Diagnosis (1) Severe sepsis: Status: Acute Asessment and Plan: - Patient with continued history of transverse abscess with tachycardia, tachypnea, fever 103 ?F, lactic acid of 2.3, source infection being managed out in combination with infection start antibiotic encephalopathy -This rapidly resolved with IV fluid rehydration and IV antibiotics -Reviewed urine cultures remain negative at this time -will discharge patient with additional 5 days course of Levaquin (2) UTI (urinary tract infection): Status: Acute Asessment and Plan: -as noted above (3) Encephalopathy: Status: Acute Asessment and Plan: -as noted above - (4) JAYDEN (obstructive sleep apnea): Status: Chronic (5) Liver cirrhosis secondary to SALCIDO: Status: Acute Discharge Plan Disposition Patient Disposition: Home Condition: Good Discharge Details Reason For Visit: UTI, confusion Admit Date/Time: 01/23/24 04:32 Admit Provider: Devin Azar Attending Provider: Devin Azar Primary Care Provider: Jefe Coffey Hospital Course Hospital Course: Patient initially presented with severe sepsis secondary to UTI with combination of hepatic and infectious encephalopathy that rapidly resolved after fluid rehydration and antibiotic initiation. Patient's mental status rapidly improved and given that she did not return to her baseline was determined that she was stable for discharge home with an additional 5 days of oral antibiotics. Home Meds and New Rx's Prescriptions: New levofloxacin 750 mg tablet 750 mg PO DAILY 4 Days Qty: 4 0RF Continued ondansetron 4 mg tablet,disintegrating 4 mg PO Q8H PRN doxepin 10 mg capsule 10 mg PO QHS lactulose 10 gram/15 mL solution 30 g PO BID Ozempic 0.25 mg or 0.5 mg (2 mg/3 mL) pen injector 0.25 mg subcut QWEEK Rx Instructions: for 4 weeks oxycodone 5 mg tablet 5 mg PO Q6H PRN Jardiance 10 mg tablet 10 mg PO DAILY metformin 1,000 mg Tablet 1,000 mg PO BID ropinirole 2 mg Tablet 2 mg PO BID nystatin 100,000 unit/gram Powder 6,000,000 unit topical TID Qty: 60 0RF Rx Instructions: apply to reddened skin folds pantoprazole 40 mg Tablet,Delayed Release (Dr/Ec) 40 mg PO BID polyethylene glycol 3350 17 gram Powder In Packet 17 g PO DAILY PRN PRN (Reason: Constipation) Qty: 0 0RF oxybutynin chloride 5 mg Tablet 5 mg PO BID Qty: 60 0RF torsemide 20 mg tablet 40 mg PO DAILY Patient Comments: TAKE TWO TABLETS BY MOUTH EVERY DAY fluoxetine 40 mg capsule 40 mg PO DAILY Discharge Instructions Activity:: Activity as Tolerated Equipment/Supplies:: No Equipment Needed Diet:: As Tolerated Discharge Orders Discharge Orders: Discharge Order (Routine); Ordered 01/24/24 Ordered By: Carlos Torres DS: Summary Time Spent with Patient providing and/or coordinating discharge services: Greater than 30 minutes Status at Discharge Functional status at discharge: independent ambulation Overall status at discharge: patient is back to baseline Mental Status: mental status grossly normal Speech and Movement: speech and movement normal Mood: congruent mood Affect: normal affect Quality:SDOH Health Related Social Needs: Health related social needs inadequate housing, transpo insecurity Exam Narrative Exam Narrative: Well-appearing elderly female laying in bed in no acute distress, ANO x 4, heart regular rhythm, lungs clear to auscultation bilaterally, abdomen soft, nontender, nondistended Psych Mental Status: mental status grossly normal Speech and Movement: speech and movement normal Mood: congruent mood Affect: normal affect DS: Data Vitals/I&O Vitals and I&O: Vital Signs Temperature 98.4 F 01/24/24 07:26 Temperature Source Tympanic 01/24/24 07:26 Pulse 84 01/24/24 07:26 Pulse Rhythm Regular 01/24/24 05:43 Pulse 102 H 01/23/24 04:40 Respiratory Rate 15 01/24/24 07:26 Respiratory Effort Normal, Non-Labored, Short of Breath 01/24/24 05:43 Respiratory Depth Normal 01/24/24 05:43 Respiratory Pattern Normal 01/24/24 05:43 Blood Pressure 133/50 L 01/24/24 07:26 Blood Pressure Mean 75 01/23/24 04:31 Pulse Oximetry 97 01/24/24 07:26 Oxygen Delivery Method Room Air 01/24/24 07:26 Oxygen Flow Rate 0 01/24/24 07:26 Fraction of Inspired Oxygen (FIO2) 21 01/23/24 20:11 Pain Level 0 01/24/24 07:26 Comment notified RN of vitals 01/23/24 07:36 Intake & Output 01/23/24 01/24/24 01/24/24 17:59 05:59 17:59 Intake Total 1065 / 1065 1000 / 2065 Output Total 1300 / 1300 300 / 1600 Balance -235 / -235 700 / 465 Intake: IV 1065 / 1065 999 / 5 Output: Urine 1300 / 1300 300 / 1600 Other: Urine Color Pale Yellow Urine Appearance Clear Clear Urine Odor Strong None Comment pt voided x1, pt flushed and i wasn't able to observe Voiding Methods Bedside Commode Toilet Data Completed and Pending Labs on day of discharge: 01/23/24 02:48 Urine - Reflex from Ua Urine Culture - Pending Preliminary micro results at discharge 01/23/24 02:52 Blood Culture - Preliminary Blood NO GROWTH 24 HOURS 01/23/24 02:34 Blood Culture - Preliminary Blood NO GROWTH 24 HOURS 01/23/24 02:48 Urine Culture - Pending Urine - Reflex from Ua [facility] All Active Problems (Updated 01/24/24 @ 09:35 by Carlos Torres MD) Encephalopathy (Acute) Liver cirrhosis secondary to SALCIDO (Acute) Severe sepsis (Acute) Sepsis (Acute) Urinary tract infection (Acute) UTI (urinary tract infection) (Acute) Bladder spasm (Acute) GAVE (gastric antral vascular ectasia) (Acute) History of oophorectomy, unilateral (Acute) Anemia (Chronic) Generalized pruritus (Acute) Weakness (Acute) Acute hip pain (Acute) Hypersomnia (Acute) Hyperglycemia due to type 2 diabetes mellitus (Acute) No-show for appointment (Acute) Submucosal neoplasm of stomach (Acute) JAYDEN (obstructive sleep apnea) (Chronic) Lung nodule (Acute) Biliary dyskinesia (Acute) Atypical angina (Acute) Acquired arteriovenous malformation (Acute) Medical History (Updated 01/24/24 @ 09:35 by Carlos Torres MD) Dermoid cyst History of peptic ulcer disease Osteoarthritis Pituitary cyst Pancreatitis Hypertensive disorder Hepatic encephalopathy Excess skin of eyelid Edema Dyspnea Atrophy of vagina Atrophic vaginitis Actinic keratosis Pituitary adenoma Restless legs Neoplasm of parotid gland Lumbar spondylosis Lesion of esophagus Dyslipidemia Depressive disorder Crohn's disease Chronic low back pain Anxiety Anemia Cirrhosis Type 2 diabetes mellitus SALCIDO (nonalcoholic steatohepatitis) CHF (congestive heart failure) Anasarca Surgical History History of rotator cuff surgery bilateral History of total knee arthroplasty bilateral History of sleeve gastrectomy History of hysterectomy Family History Brother Cancer Lung Alcohol use disorder 2 older brothers Social History Smoking/Tobacco Use Status: Never Smoking risk assessment performed?: Yes Alcohol Intake: never Drug use: Never Substance use type: does not use Housing: house Current gender identity: female Do you feel safe at home: Yes Do you feel safe in your relationship?: Yes Additional Social history: Lives with Arslan, and son in [place]. Moved from [place] in 2020. Has a dog and 7 pet birds. Time Spent with Patient Time Spent with Patient: <45 minutes Time was spent: preparing to see the patient(eg.review tests), obtaining and/or reviewing separately otained hiistory, ordering medications,tests, procedures, referring, communicating with other health critical care unit nurse, indepentently interpreting results, counseling the patient and care coordination
--- NOTE | 2024-01-24 09:44 | CMDISCH_ITS ---
Date of service: 01/24/24 Time of Service: 09:44 LACE Index Scoring Tool Questions: Length of Stay (in days): 1 Was the patient admitted via the E.D.?: Yes Comorbidities: Diabetes w/o Complication, Congestive Heart Failure, Any Tumor and Liver or Renal Disease E.D. Visits: 3 Answers: Total Score: 12 Risk of Readmission: High Risk Care Management Discharge Plan Reason for Hospitalization: uti Discharge Plan: Re will be discharged home when medically cleared. She will follow up with her PCP and plan of care and transport with family. CM will follow and continue to assess for discharge needs. Patient/Family Education Needs: Review of discharge instructions, activity, follow up plan, limitations, discuss Ask Me Three' SDOH Health Related Social Needs: Health related social needs inadequate housing, transp o insecurity
== END 2024-01-24 10:14 | disposition home or self-care (01) | DRG 872 ==
LOC: ER 05:05 → MS 05:07
PROVIDERS: Admitting Provider General Practice; Emergency Provider Student in an Organized Health Care Education/Training Program; PCP Family Medicine; Visit Provider General Practice
DX: A41.9 Sepsis, unspecified organism (principal); N39.0 Urinary tract infection, site not specified; G93.49 Other encephalopathy; R65.20 Severe sepsis without septic shock; K75.81 Nonalcoholic steatohepatitis (NASH); K74.69 Other cirrhosis of liver; I50.9 Heart failure, unspecified; K31.819 Angiodysplasia of stomach and duodenum without bleeding; D64.9 Anemia, unspecified; L29.8 Other pruritus; R53.1 Weakness; E11.65 Type 2 diabetes mellitus with hyperglycemia; G47.10 Hypersomnia, unspecified; G47.33 Obstructive sleep apnea (adult) (pediatric); R91.8 Other nonspecific abnormal finding of lung field; I10 Essential (primary) hypertension; G25.81 Restless legs syndrome; M47.816 Spondylosis without myelopathy or radiculopathy, lumbar region; Z96.653 Presence of artificial knee joint, bilateral; Z98.84 Bariatric surgery status; Z79.85 Long-term (current) use of injectable non-insulin antidiabetic drugs; Z79.84 Long term (current) use of oral hypoglycemic drugs
CPT/HCPCS: 00123; 36415; 80053; 82805; 84145; 87040; 87077; 87637; 96361; 96365; 96375; 99285; 99291; J1650; 70450; 71045; 71260; 80320; 81003; 81015; 82140; 83605; 84443; 85025; 85610; 85730; 87086; 87186; 93005; 93010; 99222; 99238; J0131; J1885; J1956; J3490

== ENCOUNTER → 2024-02-04 03:30 | Outpatient (CLI) | payer MEDICARE, SELFPAY ==
--- NOTE | 2024-02-04 | DI.MRI_ITS ---
Exam(s) MR BRAIN PITUITARY WO/W EXAM: MR BRAIN PITUITARY WO/W CLINICAL HISTORY: F/U PITUITARY MASS,ADENOMA,D35.2 TECHNIQUE: Multiplanar multisequence MRI of the brain was performed. Both noninfused and contrast i nfused sequences were performed. IV Contrast injected was cc Dotarem. COMPARISON: MR MR BRAIN PITUITARY WO/W from 02/04/[address] HEAD WO from 06/29/[address] HEAD WO from 01/23/2024 FINDINGS: Most sequences are degraded by motion artifact on today's study. PITUITARY GLAND: The previously described mass is unchanged in size, signal characteristics, and enha ncement characteristics and again reaching up to the level of the optic chiasm. There does not appear to be invasion of the cavernous sinuses. No deviation of the stalk/infundibulum of the pituitary. CEREBRAL PARENCHYMA: No evidence of intracranial hemorrhage, mass effect nor shift of midline structu re. No extraaxial fluid collections. Ventricles are not enlarged nor shifted. There is no significant focal signal abnormality in the cerebellar hemispheres nor within the umair, m idbrain, and thalami. There is no abnormal signal abnormality in the periventricular white matter. DWI: No areas of restricted diffusion to suggest acute ischemic event. SWI: No microhemorrhages evident. There are no ring enhancing lesions in the brain. There is no abnormal meningeal enhancement. FLOW VOIDS: The expected flow void are noted. No evidence of obvious aneurysm nor obvious vascular ma lformation. PARANASAL SINUSES: The visualized paranasal sinuses appear unremarkable. ORBITS: No obvious abnormal findings. IMPRESSION: 1. Continued stable appearance of the previously described pituitary adenoma, appearing unchanged fro m prior MRI scan of 02/04/2023. 2. No new additional intracranial findings. There are no ring enhancing intra-axial lesions in the br ain and there is no abnormal meningeal enhancement. DATA REPOSITORY:
[2024-02-04] MEDS: Normal Saline Flush 10 ML SYR IVP (10:45)
[2024-02-04] MEDS: Gadoterate meglumine 20 ML SYRINGE 19 ML IVP (10:46)
== END ==
PROVIDERS: PCP Family Medicine; Visit Provider Psychiatry & Neurology Neurology
DX: D35.2 Benign neoplasm of pituitary gland (principal); S42.002D Fracture of unspecified part of left clavicle, subsequent encounter for fracture with routine healing; X58.XXXD Exposure to other specified factors, subsequent encounter
CPT/HCPCS: 70553; 99213

== ENCOUNTER 2024-02-04 15:54 | Outpatient (CLI) | payer MEDICARE, SELFPAY ==
--- NOTE | 2024-02-04 14:45 | DI.RAD_ITS ---
Exam(s) XR CLAVICLE LT EXAM: XR CLAVICLE LT CLINICAL HISTORY: fracture follow up TECHNIQUE: 2D digital imaging was performed of the left clavicle. Two images were obtained. AP and axial views were obtained. COMPARISON: CR XR SHOULDER MIN 2V LT from 01/18/2023 CR XR CLAVICLE LT from 03/19/2023 CR,XR XR PORTABLE CHEST AP from 05/18/2023 CR,XR XR CHEST 1V IN DI DEPT from 06/29/2023 CR,XR XR PORTABLE CHEST AP from 01/23/2024 FINDINGS: BONES: There is an old fracture deformity involving the left clavicle. No change in alignment of the fracture is seen. No bony destructive lesion is seen. JOINTS: No dislocation present. There is unchanged widening of the acromioclavicular joint. This ma y be due to prior resection of the distal clavicle. SOFT TISSUE: Normal. IMPRESSION: Stable alignment of the old left clavicular fracture deformity. DATA REPOSITORY: RADIATION DOSE DELIVERED:
== END 2024-02-04 15:55 | disposition home or self-care (01) ==
LOC: DIORS 15:54
PROVIDERS: PCP Family Medicine; Visit Provider Physician Assistant
DX: S42.002D Fracture of unspecified part of left clavicle, subsequent encounter for fracture with routine healing (principal); X58.XXXD Exposure to other specified factors, subsequent encounter
CPT/HCPCS: 73000

== ENCOUNTER → 2024-02-17 04:24 | Outpatient (CLI) | payer MEDICARE, SELFPAY ==
--- NOTE | 2024-02-17 07:30 | DI.CT_ITS ---
Exam(s) CT UPPER EXTREMITY LT WO EXAM: CT UPPER EXTREMITY LT WO CLINICAL HISTORY: EVAL FOR INCOMPLETE HEALNG MIDSHAFT CLAVicle fx,s42.002a. TECHNIQUE: Imaging Protocol: Axial computed tomography images with coronal and sagittal reformatted images were created and reviewed. COMPARISON: CR XR CLAVICLE LT from 02/04/2024 FINDINGS: Bones: There is an old comminuted fracture deformity of the midshaft of the left clavicle. There is incomplete healing of the fracture. The findings resemble a pseudoarthrosis. The apex of the fract ure is directed cephalad. No cellulitic or osteomyelitic changes are identified. There is again see n widening of the acromioclavicular joint. No acute fracture is identified. There are mild degenera tive changes seen at the glenohumeral joint. There is spurring seen at the greater tuberosity. Soft Tissues: The visualized lungs are clear. IMPRESSION: Old fracture deformity of the midshaft of the left clavicle with findings that suggest a pseudoarthro sis of the clavicle. Please correlate clinically. No new fracture is seen. RADIATION DOSE DELIVERED: 194mGy.cm Total DLP 194mGy.cm Total DLP DATA REPOSITORY: All CT scans at this facility are submitted to the National Radiology Data Registry (NRDR) Dose Index Registry (DIR) with the [employer] ([employer]). RADIATION OPTIMIZATION: All CT scans at this facility use at least one of these dose optimization te chniques: automated exposure control; mA and/or kV adjustment per patient size (includes targeted exa ms where dose is matched to clinical indication); or iterative reconstruction.
== END ==
PROVIDERS: PCP Family Medicine; Visit Provider Student in an Organized Health Care Education/Training Program
DX: S42.002K Fracture of unspecified part of left clavicle, subsequent encounter for fracture with nonunion (principal); X58.XXXD Exposure to other specified factors, subsequent encounter
CPT/HCPCS: 99214; 73200

== ENCOUNTER → 2024-02-25 11:20 | Outpatient (BNVA) | payer MEDICARE, SELFPAY | PROVIDERS: PCP Family Medicine; Referring Provider Family Medicine; Visit Provider Student in an Organized Health Care Education/Training Program | DX: S42.002K Fracture of unspecified part of left clavicle, subsequent encounter for fracture with nonunion (principal); X58.XXXD Exposure to other specified factors, subsequent encounter | CPT/HCPCS: 99214 ==

== ENCOUNTER 2024-03-27 16:02 | Outpatient (CLI) | payer MEDICARE, SELFPAY ==
[2024-03-27 16:12] LABS: Abs Immature Grans 0.01 10^3/uL (0.0-0.06); Absolute Basophil Count 0.06 10^3/uL (0.0-0.2); Absolute Eosinophil Count 0.36 10^3/uL (0.0-0.7); Absolute Lymphocyte Count 0.94 10^3/uL (1.2-3.4); Absolute Monocyte Count 0.49 10^3/uL (0.1-0.8); Absolute Neutrophil Count 3.03 10^3/uL (1.2-6.7); Basophils % 1.2 %; Eosinophils % 7.4 %; HCT 30.4 % (36.0-46.0); Immature Grans % 0.2 %; Lymphocytes % 19.2 %; MCH 29.9 pg (27.0-33.0); MCHC 32.9 % (32.0-36.0); MCV 91 fL (80-95); MPV 9.8 fL (8.0-11.0); Platelet Count 107 10^3/uL (130-400); RBC 3.35 10^6/uL (3.93-5.22); RDW 14.2 % (11.7-14.6); RDW-SD 47.3 fL; WBC 4.89 10^3/uL (4.4-10.8)
[2024-03-27 16:37] LABS: Ferritin 23 ng/mL (8-252)
== END 2024-03-27 16:03 | disposition home or self-care (01) ==
LOC: LBO 16:02
PROVIDERS: PCP Family Medicine; Visit Provider Internal Medicine Hematology & Oncology
DX: D50.0 Iron deficiency anemia secondary to blood loss (chronic) (principal)
CPT/HCPCS: 36415; 82728; 85025

== ENCOUNTER 2024-04-12 20:56 | Inpatient (IN) | payer MEDICARE, SELFPAY ==
[2024-04-12] VITALS (18 sets, daily range): BP systolic 105–194; BP diastolic 42–111; PULSE 97–114; RESP 17–30; TEMP 38.9–39.4; O2SAT 95–97
--- NOTE | 2024-04-12 21:00 | RT.EKG_ITS ---
APPROVED REPORT Exam: Resting ECG Reason for Exam: fever Patient Location: E HR:109 bpm ECG Measurements Heart Rate 109 AXIS VA 175 P 64 QRSd 97 QRS 60 QT 342 T 60 QTc 462 Conclusion Pacemaker spikes or artifacts...timing non-diagnostic Sinus tachycardia...rate> 99 Probable left atrial enlargement...P >50mS, <-0.10mV V1 significant motion artifact
--- NOTE | 2024-04-12 21:15 | DI.RAD_ITS ---
Exam(s) XR PORTABLE CHEST AP EXAM: XR PORTABLE CHEST AP CLINICAL HISTORY: fever. TECHNIQUE: 2D digital imaging was performed. COMPARISON: CR,XR XR PORTABLE CHEST AP from 01/23/2024 FINDINGS: Single AP portable view. Moderate cardiomegaly. The mediastinum is not widened. Mild pulmonary venous hypertension pattern but no airspace pulmonary edema. No Segun B lines. No p leural effusions. IMPRESSION: Mild cardiomegaly. Mild pulmonary venous hypertension pattern. No airspace pulmonary edema. DATA REPOSITORY: RADIATION DOSE DELIVERED:
--- NOTE | 2024-04-12 21:23 | ED.GENADUL_ITS ---
Discharge Plan Disposition Patient Disposition: Admit to [facility] Condition: Stable Discharge Details Clinical Impression: Sepsis Primary Care Provider: Jefe Coffey ED Provider: Jamal Oakes Home Meds and New Rx's Prescriptions: No Action ondansetron 4 mg tablet,disintegrating 4 mg PO Q8H PRN doxepin 10 mg capsule 10 mg PO QHS Patient Comments: 20 mg once a day lactulose 10 gram/15 mL solution 30 g PO BID Ozempic 0.25 mg or 0.5 mg (2 mg/3 mL) pen injector 0.25 mg subcut QWEEK Rx Instructions: for 4 weeks oxycodone 5 mg tablet 5 mg PO Q6H PRN Jardiance 10 mg tablet 10 mg PO DAILY metformin 1,000 mg Tablet 1,000 mg PO BID ropinirole 2 mg Tablet 2 mg PO BID nystatin 100,000 unit/gram Powder 6,000,000 unit topical TID Qty: 60 0RF Rx Instructions: apply to reddened skin folds pantoprazole 40 mg Tablet,Delayed Release (Dr/Ec) 40 mg PO BID polyethylene glycol 3350 17 gram Powder In Packet 17 g PO DAILY PRN PRN (Reason: Constipation) Qty: 0 0RF oxybutynin chloride 5 mg Tablet 5 mg PO BID Qty: 60 0RF torsemide 20 mg tablet 40 mg PO DAILY Patient Comments: TAKE TWO TABLETS BY MOUTH EVERY DAY fluoxetine 40 mg capsule 40 mg PO DAILY HPI General Date/Time Provider Initiated Documentation: 04/12/24 20:58 . Limitations to Documentation: no limitations . Information obtained by: patient . History of Present Illness 68 year old F presents to the emergency department with the chief complaint of rigors, described as moderate, Patient started experiencing this hour(s) (2) and it has been constant. No relieving factors improve symptom(s), No exacerbating factors reported . Patient notes cough and fever/chills; denies confusion. Patient did receive the following treatments prior to arrival, none Related Data Home Medications Medication Instructions Recorded Confirmed metformin 1,000 mg tablet 1,000 mg PO BID 11/09/22 04/12/24 ropinirole 2 mg tablet 2 mg PO BID 11/09/22 04/12/24 pantoprazole 40 mg tablet,delayed 40 mg PO BID 12/15/22 04/12/24 release oxycodone 5 mg tablet 5 mg PO Q6H PRN 01/23/23 04/12/24 nystatin 100,000 unit/gram topical 6,000,000 unit topical TID #60 02/05/23 04/12/24 powder grams doxepin 10 mg capsule 10 mg PO QHS 03/27/23 04/12/24 ondansetron 4 mg disintegrating 4 mg PO Q8H PRN 03/27/23 04/12/24 tablet lactulose 10 gram/15 mL oral 30 g PO BID 06/26/23 04/12/24 solution polyethylene glycol 3350 17 gram 17 g PO DAILY PRN PRN Constipation 07/01/23 04/12/24 oral powder packet #0 ea empagliflozin 10 mg tablet 10 mg PO DAILY 10/08/23 04/12/24 (Jardiance) oxybutynin chloride 5 mg tablet 5 mg PO BID #60 tabs 11/13/23 04/12/24 semaglutide 0.25 mg or 0.5 mg (2 0.25 mg subcut QWEEK 12/12/23 04/12/24 mg/3 mL) subcutaneous pen injector (Ozempic) torsemide 20 mg tablet 40 mg PO DAILY 01/23/24 04/12/24 fluoxetine 40 mg capsule 40 mg PO DAILY 01/24/24 04/12/24 Previous Rx's Medication Instructions Recorded nystatin 100,000 unit/gram topical 6,000,000 unit topical TID #60 02/05/23 powder grams polyethylene glycol 3350 17 gram 17 g PO DAILY PRN PRN Constipation 07/01/23 oral powder packet #0 ea oxybutynin chloride 5 mg tablet 5 mg PO BID #60 tabs 11/13/23 Allergies Allergy/AdvReac Type Severity Reaction Status Date / Time Penicillins Allergy Severe Swelling/Ed Verified 02/25/24 11:37 sophie tramadol Allergy Severe Swelling/Ed Verified 02/25/24 11:37 sophie apricot Allergy Intermediate Hives Verified 02/25/24 11:37 ferrous sulfate Allergy Unknown Other (See Verified 02/25/24 11:37 Comment) raspberry Allergy Other (See Verified 02/25/24 11:37 Comment) vancomycin AdvReac Intermediate Other (See Verified 02/25/24 11:37 Comment) General Stated Complaint: Fever CHELA: 2 Review of Systems All systems reviewed & are unremarkable except as noted in HPI and below Constitutional Constitutional: Reports chills and Reports fever(s) Cardiovascular Cardiovascular: Denies chest pain and Denies dyspnea Respiratory Respiratory: Reports cough and Denies dyspnea Gastrointestinal Gastrointestinal: Denies abdominal pain, Denies nausea and Denies vomiting Genitourinary Genitourinary: Denies dysuria Integumentary/Breasts Skin/Breast: Denies rash Exam Const General: no acute distress Orientation: alert HENMT Head: normal to inspection Ears: external ears normal General nose exam: external nose normal Mouth: moist mucous membranes Eyes General: appearance normal, both eyes and all related structures Neck Neck: normal visual inspection Resp Effort & Inspection: normal respiratory effort and able to speak in complete sentences Auscultation: clear to auscultation bilaterally Cardio Jugular venous pressure: no JVD Rate: tachycardic Rhythm: regular rhythm Heart Sounds: no murmurs GI Palpation: soft and nontender Skin General skin exam: no rashes or lesions noted Neuro General: patient alert and patient oriented x3 Extrem General: normal to inspection Psych Mental Status: mental status grossly normal Course Vital Signs Vital signs: Vital Signs Temperature 39.3 C H 04/12/24 21:08 Pulse 114 H 04/12/24 21:08 Respiratory Rate 25 H 04/12/24 21:08 Blood Pressure 194/52 H 04/12/24 21:08 Pulse Oximetry 95 04/12/24 21:08 Temperature 39.3 C H 04/12/24 21:14 Temperature Source Oral 04/12/24 21:14 Pulse 112 H 04/12/24 21:14 Respiratory Rate 25 H 04/12/24 21:14 Blood Pressure 194/52 H 04/12/24 21:14 Blood Pressure Position Supine 04/12/24 21:14 Pulse Oximetry 96 04/12/24 21:14 Oxygen Delivery Method Room Air 04/12/24 21:14 Oxygen Flow Rate 0 04/12/24 21:08 Pain Level 0 04/12/24 21:14 Lab/Test Results Lab/Test Results: 04/12/24 21:05 Blood Blood Culture - Pending 04/12/24 21:05 Blood Blood Culture - Pending Medical Decision Making 68-year-old female with a history of cirrhosis secondary to Gallagher, diabetes who comes in with acute onset of rigors and fevers. She says she felt well all day today had just made dinner when she started having the symptoms. She had a similar episode in January where she was seen here had a workup which was concerning for possible UTI for source and was given IV fluids and Levaquin and rapidly improved and was discharged the next day. She says she has had a dry cough otherwise no other significant infectious symptoms, no abdominal pain, no difficulty breathing, no urinary symptoms. She is alert and oriented x 4 and arrival in no distress, is noted to be febrile and tachycardic. She has clear lung sounds, no meningismus, no abdominal tenderness. Suspect sepsis given her fever and tachycardia, given she rapidly improved with levofloxacin and fluids last time will initiate this given her sepsis picture. Will obtain cultures, procalcitonin, CBC, CMP, lactate, UA and chest x-ray. She has no headache and no meningismus so doubt MUSCULOSKELETAL PHYSIOTHERAPIST infection. No abdominal tenderness so doubt SBP. Patient stable, lactate 3.1, ammonia over 80 Salactol disorder. Still has a fever, UA unremarkable culture ordered. X-ray has not been read by radiology, no clear infiltrate on my read. Will admit to for IV antibiotics in the setting of sepsis. Differential Diagnosis Differential Diagnosis: Sepsis, pneumonia, flu, COVID, UTI Medical Records Medical records reviewed: Yes I reviewed the patient's medical records. Lab Data Lab results reviewed: Yes I reviewed the patient's lab results. 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 (Acute) Encephalopathy (Acute) Liver cirrhosis secondary to GALLAGHER (Acute) Severe sepsis (Acute) Sepsis (Acute) Urinary tract infection (Acute) Bladder spasm (Acute) GAVE (gastric antral vascular ectasia) (Acute) History of oophorectomy, unilateral (Acute) Anemia (Chronic) Generalized pruritus (Acute) Weakness (Acute) Acute hip pain (Acute) Hypersomnia (Acute) Hyperglycemia due to type 2 diabetes mellitus (Acute) No-show for appointment (Acute) Submucosal neoplasm of stomach (Acute) JAYDEN (obstructive sleep apnea) (Chronic) Lung nodule (Acute) Biliary dyskinesia (Acute) Atypical angina (Acute) Acquired arteriovenous malformation (Acute) Medical History (Updated 04/12/24 @ 22:25 by Jamal Oakes MD) Dermoid cyst History of peptic ulcer disease Osteoarthritis Pituitary cyst Pancreatitis Hypertensive disorder Hepatic encephalopathy Excess skin of eyelid Edema Dyspnea Atrophy of vagina Atrophic vaginitis Actinic keratosis Pituitary adenoma Restless legs Neoplasm of parotid gland Lumbar spondylosis Lesion of esophagus Dyslipidemia Depressive disorder Crohn's disease Chronic low back pain Anxiety Anemia Cirrhosis Type 2 diabetes mellitus GALLAGHER (nonalcoholic steatohepatitis) CHF (congestive heart failure) Anasarca Surgical History (Updated 01/25/24 @ 00:01 by ROBERT AGUDELO) History of rotator cuff surgery bilateral History of total knee arthroplasty bilateral History of sleeve gastrectomy History of hysterectomy Family History Brother Cancer Lung Alcohol use disorder 2 older brothers Social History Smoking/Tobacco Use Status: Never Smoking risk assessment performed?: Yes Alcohol Intake: never Drug use: Never Substance use type: does not use Housing: house Current gender identity: female Do you feel safe at home: Yes Do you feel safe in your relationship?: Yes Additional Social history: Lives with Arslan, and son in [place]. Moved from [place] in 2020. Has a dog and 7 pet birds.
[2024-04-12] MEDS: levoFLOXacin 750 MG/150 ML BAG 100 MG IVPB (21:29)
[2024-04-12 21:31] LABS: Abs Immature Grans 0.01 10^3/uL (0.0-0.06); Absolute Basophil Count 0.05 10^3/uL (0.0-0.2); Absolute Eosinophil Count 0.12 10^3/uL (0.0-0.7); Absolute Lymphocyte Count 0.65 10^3/uL (1.2-3.4); Absolute Monocyte Count 0.43 10^3/uL (0.1-0.8); Absolute Neutrophil Count 6.51 10^3/uL (1.2-6.7); Basophils % 0.6 %; Eosinophils % 1.5 %; HCT 37.9 % (36.0-46.0); HGB 12.2 g/dL (11.2-15.7); Immature Grans % 0.1 %; Lymphocytes % 8.4 %; MCH 30.2 pg (27.0-33.0); MCHC 32.2 % (32.0-36.0); MCV 94 fL (80-95); MPV 9.9 fL (8.0-11.0); Monocytes % 5.5 %; Neutrophils % 83.9 %; Platelet Count 101 10^3/uL (130-400); RBC 4.04 10^6/uL (3.93-5.22); RDW 15.3 % (11.7-14.6); RDW-SD 52.1 fL; WBC 7.77 10^3/uL (4.4-10.8)
[2024-04-12] MEDS: Normal Saline 1,000 ML 1000 ML IV (21:31)
[2024-04-12 21:32] LABS: Lactate 3.1 mmol/L (0.6-1.4)
[2024-04-12] MEDS: Ketorolac 15 MG/ML VIAL IVP (21:32)
[2024-04-12 21:42] LABS: Ammonia 86 umol/L (11-32)
[2024-04-12 21:44] LABS: INR 1.1 (0.9-1.1); PTT Activated 29.4 sec (23.6-32.8); Prothrombin Time 11.3 sec (9.1-11.1)
[2024-04-12 21:53] LABS: ALT 35 U/L (14-59); AST 48 U/L (15-37); Albumin 3.1 g/dL (3.4-5.0); Alkaline Phosphatase 242 U/L (46-116); Anion Gap 6.2 mmol/L (3-11); BUN 11 mg/dL (7-18); Bilirubin, Direct 0.6 mg/dL (0.0-0.2); Bilirubin, Total 1.8 mg/dL (0.2-1.0); CO2 29.8 mmol/L (21.0-32.0); CREATININE 0.8 mg/dL (0.55-1.02); Calcium 8.7 mg/dL (8.5-10.1); Chloride 103 mmol/L (98-107); Estimated GFR 80.21 (mL/min/1.73m2); Glucose 270 mg/dL (74-106); Magnesium 1.5 mg/dL (1.8-2.4); Potassium 3.8 mmol/L (3.5-5.1); Sodium 139 mmol/L (136-145); Total Protein 6.7 g/dL (6.4-8.2)
[2024-04-12 21:55] LABS: Bilirubin Negative (Negative); Blood Small (Negative); Clarity Sl Cloudy (Clear); Glucose >=1000 mg/dL (Negative); Ketones Negative (Negative); Leukocyte Esterase Negative (Negative); Nitrite Negative (Negative); Specific Gravity >= 1.030 (1.005-1.025)
[2024-04-12] MEDS: Lactulose 20 GM/30 ML CUP PO (21:58)
[2024-04-12 22:04] LABS: Bacteria Rare HPF (Negative); C & S Indicated? C&S Done As Ordered; Casts 0-2 Hyaline LPF (Negative); Crystals Negative HPF (Negative); Epithelial Cells Few HPF (Negative); Mucus Negative (Negative); WBC 0-2 HPF (0-5)
[2024-04-12 22:09] LABS: Procalcitonin < 0.1 ng/mL
[2024-04-12] MEDS: MAGNESIUM SULFATE 1 GM/100 ML BAG IVINF (22:22)
[2024-04-12 22:35] LABS: COVID-19 PCR Negative (Negative); Influenza A PCR Negative (Negative); Influenza B PCR Negative (Negative); RSV PCR Negative (Negative)
[2024-04-12 22:45] LABS: Source Nasopharynx
--- NOTE | 2024-04-12 23:16 | DI.VRAD_ITS ---
PROCEDURE INFORMATION: Exam: XR Chest Exam date and time: 04/12/2024 9:52 PM Age: 68 years old Clinical indication: Fever TECHNIQUE: Imaging protocol: Radiologic exam of the chest. Views: 1 view. COMPARISON: CT CHEST W 01/23/2024 3:55 AM FINDINGS: Lungs: Lungs are adequately inflated. No focal consolidation. Mild central pulmonary vascular congestion. Pleural spaces: No visible pleural effusion. No pneumothorax. Heart/Mediastinum: Cardiomediastinal contours within the upper limits of normal for size although may be accentuated by portable technique. Diaphragm: Mild asymmetric elevation of the right hemidiaphragm. Bones/joints: Mild multilevel degenerative changes of the thoracic spine. No acute osseous finding. IMPRESSION: No focal consolidation. Dictated and Authenticated by: Eh Smith MD. Ordering:JACY Berry MD
[2024-04-13] VITALS (9 sets, daily range): BP systolic 108–155; BP diastolic 46–54; PULSE 77–105; RESP 16–19; TEMP 36.7–38.9; O2SAT 94–97
--- NOTE | 2024-04-13 00:35 | W.PM.HP.N ---
Date of service: 04/12/24 Time of Service: 23:00 Assessment and Plan Assessment and plan (1) Severe sepsis: Status: Acute Assessment and plan: Patient presents with sudden onset of fever chills and rigors. Tmax 39.4. She has a spectrum consistent with overall weakness hypersomnia now with high fever. There is a high suspicion of sepsis although she is maintaining good blood pressure. Her procalcitonin is not elevated. Blood cultures and urine cultures are pending. Empiric therapy with levofloxacin has been started. (2) Encephalopathy: Status: Acute Assessment and plan: Patient has a history of encephalopathy presumed to be secondary to her chronic liver disease. She is not consistently taking her lactulose. Mentation appears to be clear today. She is getting her lactulose twice daily. Will continue to monitor for mental status changes. (3) Urinary tract infection: Status: Acute Assessment and plan: The urinalysis shows some red cells but does not appear to be a full-blown infection. A urine culture is pending. In January 2024 she did grow out 2 species of E. coli that were sensitive to levofloxacin. Empiric treatment is meant to help cover urinary pathogens for suspected UTI as the cause of her sepsis. (4) GAVE (gastric antral vascular ectasia): Status: Acute Assessment and plan: History of recurrent GI bleeding. Her H&H is stable. She gets intermittent nausea for which she is written for as needed antiemetic, Zofran. Will monitor her H&H and for any signs of bleeding. (5) Liver cirrhosis secondary to SALCIDO: Status: Acute Assessment and plan: Chronic liver dysfunction secondary to SALCIDO. Will recheck a comprehensive metabolic panel to trend her labs. (6) Hypersomnia: Status: Acute Assessment and plan: Seen recently by Dr. Lopes regarding hypersomnia. She is instructed not to drive. It is felt that she was more consistent with her CPAP that she would probably have less daytime somnolence. (7) Hyperglycemia due to type 2 diabetes mellitus: Status: Acute Assessment and plan: Poorly controlled type 2 diabetes. She apparently has been inconsistent in taking her medications. Wrote for her usual diabetic regimen. Added sliding scale insulin and fingersticks AC. (8) JAYDEN (obstructive sleep apnea): Status: Chronic Assessment and plan: Patient wears nocturnal CPAP. She did not bring her machine with her. She felt that she would be okay overnight but if she is here another night she would bring her machine in from home. (9) Pituitary cyst: Status: Acute Assessment and plan: Known pituitary adenoma. No change on recent imaging. 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 She has seen Dr. Kovacs recently. She has a referral to [facility] orthopedics for another opinion. History of Present Illness History of Present Illness Chief Complaint: Fever/chills/rigors-suspect sepsis Narrative: 68-year-old woman who reports sudden onset of fever chills and rigors at about 8 PM this evening. She does not describe a prodrome of illness. No cough, no shortness of breath, no urinary symptoms. She does not describe any sick contacts. She had a similar admission in January, in which a urinary tract infection was found. She recovered quickly after a course of Levaquin. In the emergency room she had a temperature of 39.3, lactate elevated at 3.1, ammonia level elevated at 86. Contrary to her previous admission she does not have mental confusion at this time. Of note her procalcitonin is less than 0.1. She was started on IV Levaquin and is admitted to observation. Review of Systems Narrative: Patient denies any current illness other than the sudden onset of fever chills and rigors. No upper respiratory symptoms. No cough, no shortness of breath. She denies any abdominal complaints other than her chronic nausea which is stable. She has no urinary symptoms. 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 Chronically elevated ammonia level. On lactulose. Liver cirrhosis secondary to SALCIDO (Acute) Severe sepsis (Acute) Sepsis (Acute) Urinary tract infection (Acute) GAVE (gastric antral vascular ectasia) (Acute) Hypersomnia (Acute) Hyperglycemia due to type 2 diabetes mellitus (Acute) JAYDEN (obstructive sleep apnea) (Chronic) Medical History (Updated 04/13/24 @ 00:45 by Jamal Mendoza MD) Acquired arteriovenous malformation Atypical angina Biliary dyskinesia Lung nodule Submucosal neoplasm of stomach No-show for appointment Acute hip pain Weakness Generalized pruritus Anemia Bladder spasm Dermoid cyst History of peptic ulcer disease Osteoarthritis Pancreatitis Hypertensive disorder Hepatic encephalopathy Excess skin of eyelid Edema Dyspnea Atrophy of vagina Atrophic vaginitis Actinic keratosis Pituitary adenoma Restless legs Neoplasm of parotid gland Lumbar spondylosis Lesion of esophagus Dyslipidemia Depressive disorder Crohn's disease Chronic low back pain Anxiety Anemia Cirrhosis Type 2 diabetes mellitus SALCIDO (nonalcoholic steatohepatitis) CHF (congestive heart failure) Anasarca Surgical History (Updated 04/13/24 @ 00:45 by Jamal Mendoza MD) History of oophorectomy, unilateral History of rotator cuff surgery bilateral History of total knee arthroplasty bilateral History of sleeve gastrectomy History of hysterectomy Family History Brother Cancer Lung Alcohol use disorder 2 older brothers Social History Smoking/Tobacco Use Status: Never Smoking risk assessment performed?: Yes Alcohol Intake: never Drug use: Never Substance use type: does not use Housing: house Current gender identity: female Do you feel safe at home: Yes Do you feel safe in your relationship?: Yes Additional Social history: Lives with Arslan, and son in [place]. Moved from [place] in 2020. Has a dog and 7 pet birds. Meds Allergies and Home Medications Allergies Allergy/AdvReac Type Severity Reaction Status Date / Time Penicillins Allergy Severe Swelling/Ed Verified 02/25/24 11:37 sophie tramadol Allergy Severe Swelling/Ed Verified 02/25/24 11:37 sophie apricot Allergy Intermediate Hives Verified 02/25/24 11:37 ferrous sulfate Allergy Unknown Other (See Verified 02/25/24 11:37 Comment) raspberry Allergy Other (See Verified 02/25/24 11:37 Comment) vancomycin AdvReac Intermediate Other (See Verified 02/25/24 11:37 Comment) Home Medications Medication Instructions Recorded Confirmed Type metformin 1,000 mg tablet 1,000 mg PO BID 11/09/22 04/12/24 History ropinirole 2 mg tablet 2 mg PO BID 11/09/22 04/12/24 History pantoprazole 40 mg tablet,delayed 40 mg PO BID 12/15/22 04/12/24 History release oxycodone 5 mg tablet 5 mg PO Q6H PRN 01/23/23 04/12/24 History nystatin 100,000 unit/gram topical 6,000,000 unit topical TID #60 02/05/23 04/12/24 Rx powder grams doxepin 10 mg capsule 10 mg PO QHS 03/27/23 04/12/24 History ondansetron 4 mg disintegrating 4 mg PO Q8H PRN 03/27/23 04/12/24 History tablet lactulose 10 gram/15 mL oral 30 g PO BID 06/26/23 04/12/24 History solution polyethylene glycol 3350 17 gram 17 g PO DAILY PRN PRN Constipation 07/01/23 04/12/24 Rx oral powder packet #0 ea empagliflozin 10 mg tablet 10 mg PO DAILY 10/08/23 04/12/24 History (Jardiance) oxybutynin chloride 5 mg tablet 5 mg PO BID #60 tabs 11/13/23 04/12/24 Rx semaglutide 0.25 mg or 0.5 mg (2 0.25 mg subcut QWEEK 12/12/23 04/12/24 History mg/3 mL) subcutaneous pen injector (Ozempic) torsemide 20 mg tablet 40 mg PO DAILY 01/23/24 04/12/24 History fluoxetine 40 mg capsule 40 mg PO DAILY 01/24/24 04/12/24 History Exam Narrative Exam Narrative: On exam she appears somewhat older than stated age. She was able to attend and answer questions without difficulty. She appeared to be fully lucid and oriented. Her speech was clear. She was in no respiratory distress. She was able to cooperate with sitting up for the lung exam. Auscultation revealed no adventitial breath sounds, lungs were clear. Heart showed mild tachycardia and a 1/6 to 2/6 systolic murmur. Abdomen was moderately obese but overall nontender to palpation in all 4 quadrants. The lower extremities showed no evidence of edema and appeared well-perfused bilaterally. Her skin showed a few spider angiomata but otherwise no rashes. Results Labs 04/12/24 21:22 04/12/24 21:22 Labs: Laboratory Results - last 24 hr 04/12/24 04/12/24 04/12/24 21:22 21:49 21:56 WBC 7.77 RBC 4.04 Hgb 12.2 Hct 37.9 MCV 94 MCH 30.2 MCHC 32.2 RDW 15.3 H Plt Count 101 L MPV 9.9 Immature Gran % 0.1 Neutrophils % 83.9 Lymphocytes % 8.4 Monocytes % 5.5 Eosinophils % 1.5 Basophils % 0.6 Nucleated RBC % 0.0 Absolute Neutrophils 6.51 Absolute Lymphocytes 0.65 L Absolute Monocytes 0.43 Absolute Eosinophils 0.12 Absolute Basophils 0.05 PT 11.3 H INR 1.1 APTT 29.4 VBG Lactate 3.1 H* Sodium 139 Potassium 3.8 Chloride 103 Carbon Dioxide 29.8 Anion Gap 6.2 BUN 11 Creatinine 0.8 Est GFR (CKD-EPI 2020) 80.21 Glucose 270 H Calcium 8.7 Magnesium 1.5 L Total Bilirubin 1.8 H Conjugated Bilirubin 0.6 H AST 48 H ALT 35 Alkaline Phosphatase 242 H Ammonia 86 H Total Protein 6.7 Albumin 3.1 L Procalcitonin < 0.1 Urine Color Dark Yellow Urine Clarity Sl Cloudy Urine pH 7.0 Ur Specific [place] >= 1.030 H Urine Protein 100 H Urine Ketones Negative Urine Blood Small H Urine Nitrite Negative Urine Bilirubin Negative Urine Urobilinogen 2.0 H Ur Leukocyte Esterase Negative Urine RBC 5-10 H Urine WBC 0-2 Ur Epithelial Cells Few Urine Crystals Negative Urine Bacteria Rare Urine Casts 0-2 Hyaline Urine Mucus Negative Ur Culture Indicated? C&S Done As Ordered Urine Glucose >=1000 H COVID-19 Source Nasopharynx SARS-CoV-2 (PCR) Negative Influenza Type A (PCR) Negative Influenza Type B (PCR) Negative RSV (PCR) Negative Last Vital Signs Temp 38.9 C H 04/12/24 23:56 Pulse 105 H 04/12/24 23:56 Resp 22 04/12/24 23:56 BP 105/54 L 04/12/24 23:56 Pulse Ox 97 04/12/24 23:56 Time Spent Time spent with Patient: 40-54 minutes Time was spent: preparing to see the patient(eg.review tests), obtaining and/or reviewing separately otained hiistory, ordering medications,tests, procedures, referring, communicating with other health janitor caretaker, indepentently interpreting results and counseling the patient
[2024-04-13] MEDS: Enoxaparin 40 MG/0.4 ML SYR SC (01:16)
[2024-04-13] MEDS: oxyCODONE 5 MG TAB PO ×2 (01:51→19:38)
[2024-04-13] MEDS: Doxepin 10 MG CAP 20 MG PO ×2 (01:52→19:36)
[2024-04-13] MEDS: Oxybutynin-CR 5 MG TABCR PO (01:52)
[2024-04-13] MEDS: Acetaminophen 325 MG TAB PO ×3 (01:52→19:37)
[2024-04-13] MEDS: Pantoprazole 40 MG TABCR PO ×3 (01:53→19:35)
[2024-04-13] MEDS: rOPINIRole 0.5 MG TAB 2 MG PO (01:53)
[2024-04-13] MEDS: Insulin Aspart 300 UNITS/3 ML PEN SC ×4 (01:54→16:57)
[2024-04-13 06:35] LABS: Abs Immature Grans 0.12 10^3/uL (0.0-0.06); Absolute Eosinophil Count 0.09 10^3/uL (0.0-0.7); Absolute Lymphocyte Count 0.73 10^3/uL (1.2-3.4); Absolute Monocyte Count 0.83 10^3/uL (0.1-0.8); Basophils % 0.5 %; Eosinophils % 0.8 %; HCT 31.8 % (36.0-46.0); HGB 10.5 g/dL (11.2-15.7); Immature Grans % 1.1 %; Lymphocytes % 6.6 %; MCH 30.8 pg (27.0-33.0); MCV 93 fL (80-95); MPV 10.4 fL (8.0-11.0); Monocytes % 7.5 %; Neutrophils % 83.5 %; RBC 3.41 10^6/uL (3.93-5.22); RDW 15.1 % (11.7-14.6); RDW-SD 51.1 fL; WBC 11.11 10^3/uL (4.4-10.8)
[2024-04-13 06:36] LABS: Absolute Basophil Count 0.06 10^3/uL (0.0-0.2); Absolute Neutrophil Count 9.28 10^3/uL (1.2-6.7)
[2024-04-13 06:51] LABS: ALT 32 U/L (14-59); AST 52 U/L (15-37); Albumin 2.3 g/dL (3.4-5.0); Alkaline Phosphatase 159 U/L (46-116); Anion Gap 6.9 mmol/L (3-11); BUN 15 mg/dL (7-18); Bilirubin, Total 2.3 mg/dL (0.2-1.0); CO2 27.1 mmol/L (21.0-32.0); Chloride 106 mmol/L (98-107); Estimated GFR 61.36 (mL/min/1.73m2); Glucose 225 mg/dL (74-106); Magnesium 1.7 mg/dL (1.8-2.4); Potassium 3.3 mmol/L (3.5-5.1); Sodium 140 mmol/L (136-145); Total Protein 5.1 g/dL (6.4-8.2)
[2024-04-13 07:09] LABS: Diff Comment Diff Reviewed; Platelet Count 87 10^3/uL (130-400); RBC Morphology Normal
[2024-04-13] MEDS: rOPINIRole 1 MG TAB 2 MG PO ×2 (08:37→19:36)
[2024-04-13] MEDS: Oxybutynin 5 MG TAB PO ×2 (08:38→19:35)
[2024-04-13] MEDS: metFORMIN 500 MG TAB 1000 MG PO ×2 (08:38→16:57)
[2024-04-13] MEDS: FLUoxetine 20 MG CAP 40 MG PO (08:38)
[2024-04-13] MEDS: Torsemide 20 MG TAB 40 MG PO (08:38)
[2024-04-13] MEDS: Lactulose 20 GM/30 ML CUP 30 GM PO (08:39)
[2024-04-13] MEDS: MAGNESIUM SULFATE 1 GM/100 ML BAG IVINF ×2 (08:41→13:14)
[2024-04-13] MEDS: Normal Saline Flush 10 ML SYR IVP ×3 (09:00→20:08)
[2024-04-13] MEDS: Nystatin POWDER 15 GM JAR TP ×2 (09:00→14:31)
--- NOTE | 2024-04-13 10:02 | PDOC.CMIN ---
Date of service: 04/13/24 Time of Service: 10:02 Care Management Initial Assmt Initial Assessment Reason for Hospitalization: sepsis Functional Status/Living Situation Patient Presentation: Re was sitting up on the side of the bed eating lunch when CM met with her, She was pleasant and engaged easily with CM, well known to her from previous hospitalizations for both herself and her Alexis. Re informed CM that she had been doing fine yesterday and had just made dinner when she began to have shaking chills. She stated that she couldn't even eat because the food would not stay on her fork. Her family decided to take her to the ED where she was found to be febrile with a temperature of 39.3 with no localizing symptoms. She shared that today she feels fine and has not had a fever since last night. Re also talked about her somnolence and the fact that every time she eats, she falls asleep. She sleeps a lot during the day and then is awake much of the night. She uses CPap at night and is fairly compliant with its use. She indicated to that she hopes to be able to go home soon. Town [place] Residence: [place] Resides with: Child (son Don) and Spouse ( Alexis) Significant Other/Family: Local Natural Supports: family Employment Status: Retired Instrumental Activities of Daily Living (ADLs): Independent Medications Medication Management: No Issues/Barriers identified Physical Functioning/Mobility Assistive Device: uses a walker Advance Directives Advance Directives: Do you have an Advance Directive: N 09/23/23 16:39 AD On File at [facility]: N 09/23/23 16:39 Date Asked 04/12/24 04/12/24 21:02 AD Date Reviewed COLST On File at [facility] COLST Date Scanned Code Status Resuscitation Status Full Code Insurance Coverage/Financial Issues Insurance: [facility] Medicare Replacement ACO Member: No Care Team Visit Care Team Role Provider Type Jefe Coffey Primary Care Provider NON-[facility] STAFF PHYSICIAN Eulalia Torrez RDN, [facility] Other Providers ENVIRONMENTAL QUALITY ANALYST Margaret Ortega Other Providers ENVIRONMENTAL QUALITY ANALYSTANAIS Rice RDN Other Providers ENVIRONMENTAL QUALITY ANALYST Jamal Oakes MD Emergency Provider [facility] STAFF PHYSICIAN Jamal Mendoza MD Admit Provider [facility] STAFF PHYSICIAN Attending Provider Discharge Potential Discharge Needs: PCP F/U Appt Anticipated Barriers to Discharge: None Identified Patient/Family Education Needs: Review discharge instructions, discuss Ask Me Three Transportation: Private vehicle Plan: Expect that Re will be discharged home, possibly with new home health services, when medica;ly stable. She will follow up with her PCP and plan of care and transport with her family. CM will follow and continue to assess for discharge needs. 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 Chronically elevated ammonia level. On lactulose. 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) Severe sepsis (Acute) Sepsis (Acute) Urinary tract infection (Acute) GAVE (gastric antral vascular ectasia) (Chronic) Hypersomnia (Acute) Hyperglycemia due to type 2 diabetes mellitus (Acute) JAYDEN (obstructive sleep apnea) (Chronic) Medical History (Updated 04/13/24 @ 12:15 by Karuna Segal NP) Acquired arteriovenous malformation Atypical angina Biliary dyskinesia Lung nodule Submucosal neoplasm of stomach No-show for appointment Acute hip pain Weakness Generalized pruritus Anemia Bladder spasm Dermoid cyst History of peptic ulcer disease Osteoarthritis Pancreatitis Hypertensive disorder Hepatic encephalopathy Excess skin of eyelid Edema Dyspnea Atrophy of vagina Atrophic vaginitis Actinic keratosis Pituitary adenoma Restless legs Neoplasm of parotid gland Lumbar spondylosis Lesion of esophagus Dyslipidemia Depressive disorder Crohn's disease Chronic low back pain Anxiety Anemia Cirrhosis Type 2 diabetes mellitus SALCIDO (nonalcoholic steatohepatitis) CHF (congestive heart failure) Anasarca Surgical History (Updated 04/13/24 @ 00:45 by Jamal Mendoza MD) History of oophorectomy, unilateral History of rotator cuff surgery bilateral History of total knee arthroplasty bilateral History of sleeve gastrectomy History of hysterectomy Family History Brother Cancer Lung Alcohol use disorder 2 older brothers Social History Smoking/Tobacco Use Status: Never Smoking risk assessment performed?: Yes Alcohol Intake: never Drug use: Never Substance use type: does not use Housing: house Current gender identity: female Do you feel safe at home: Yes Do you feel safe in your relationship?: Yes Additional Social history: Lives with Arslan, and son in [place]. Moved from [place] in 2020. Has a dog and 7 pet birds. SDOH(Care Management) Screening Will the Patient Participate in the Screening?: Unable to obtain
[2024-04-13] MEDS: DOXYCYCLINE 100 MG in Normal Saline 100 ML IVPB ×2 (10:06→19:39)
--- NOTE | 2024-04-13 12:02 | W.PM.PROGNOT ---
Date of Service Date of service: 04/13/24 Time of Service: 12:03 Assessment and Plan Assessment and plan (1) Severe sepsis: Status: Acute Assessment and plan: Patient presents with sudden onset of fever chills and rigors. Tmax 39.4. She has a spectrum consistent with overall weakness hypersomnia now with high fever. Her procalcitonin is not elevated. Blood cultures and urine cultures are pending. tick panel pending she was given levofloxacin but will change to doxycycline to cover possible tick borne infection and ceftriaxone while urine cultures pending. (2) Encephalopathy: Status: Acute Assessment and plan: Patient has a history of encephalopathy presumed to be secondary to her chronic liver disease. She is not consistently taking her lactulose. Mentation appears at baseline today. Continue lactulose twice daily. Will continue to monitor for mental status changes. (3) Urinary tract infection: Status: Acute Assessment and plan: urine culture is pending. In January 2024 she did grow out 2 species of E. coli that was richter sensitive (4) GAVE (gastric antral vascular ectasia): Status: Chronic Assessment and plan: History of recurrent GI bleeding. Her H&H is stable. She gets intermittent nausea for which she is written for as needed antiemetic, Zofran. Will monitor her H&H and for any signs of bleeding. 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 Will recheck a comprehensive metabolic panel to trend her labs. (6) Hypersomnia: Status: Acute Assessment and plan: Seen recently by Dr. Lopes regarding hypersomnia. She is instructed not to drive. It is felt that she was more consistent with her CPAP that she would probably have less daytime somnolence. (7) Hyperglycemia due to type 2 diabetes mellitus: Status: Acute Assessment and plan: Poorly controlled type 2 diabetes. She apparently has been inconsistent in taking her medications. Wrote for her usual diabetic regimen. Added sliding scale insulin and fingersticks AC. (8) JAYDEN (obstructive sleep apnea): Status: Chronic Assessment and plan: Patient wears nocturnal CPAP. She did not bring her machine with her. She felt that she would be okay overnight but if she is here another night she would bring her machine in from home. (9) Pituitary cyst: Status: Chronic Assessment and plan: Known pituitary adenoma. No change on recent imaging. 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 She has seen Dr. Kovacs recently. She has a referral to [facility] orthopedics for another opinion. (11) Hypomagnesemia: Status: Acute Assessment and plan: replete and follow (12) Hypokalemia: Status: Acute Assessment and plan: replete and follow (13) DVT prophylaxis: Status: Acute Assessment and plan: enoxaparin daily (14) Discharge planning issues: Status: Acute Assessment and plan: case management following anticipate discharge to home when stable, +/- services discussed with Dr Melchor Subjective Subjective Patient reports: no new complaints, feels better, tolerating liquids well, tolerating a regular diet and afebrile; denies shortness of breath Interval history since last seen: Patient rested comfortably overnight with no new complaints. Denies any chest pain shortness of breath cough abdominal pain nausea vomiting skin rashes or lesions. No source of fever has yet been identified Exam Narrative Exam Narrative: Elderly female appearing older than stated age in no acute distress head is atraumatic eyes nonicteric noninjected facial features symmetrical oral mucosas moist no oral exudates neck is supple with full range of motion no meningeal signs respirations are even and unlabored her breath sounds are clear bilaterally abdomen is obese soft nontender positive bowel sounds she moves all extremities equally. Neurologic she is awake alert oriented no focal deficits psychiatric normal mood and affect Objective Last Vital Signs Temp 36.7 C 04/13/24 11:46 Pulse 83 04/13/24 11:46 Resp 18 04/13/24 11:46 BP 124/49 L 04/13/24 11:46 Pulse Ox 97 04/13/24 11:46 Laboratory Results - last 24 hr 04/12/24 04/12/24 04/12/24 21:22 21:49 21:56 WBC 7.77 RBC 4.04 Hgb 12.2 Hct 37.9 MCV 94 MCH 30.2 MCHC 32.2 RDW 15.3 H Plt Count 101 L MPV 9.9 Immature Gran % 0.1 Neutrophils % 83.9 Lymphocytes % 8.4 Monocytes % 5.5 Eosinophils % 1.5 Basophils % 0.6 Nucleated RBC % 0.0 Absolute Neutrophils 6.51 Absolute Lymphocytes 0.65 L Absolute Monocytes 0.43 Absolute Eosinophils 0.12 Absolute Basophils 0.05 RBC Morphology PT 11.3 H INR 1.1 APTT 29.4 VBG Lactate 3.1 H* Sodium 139 Potassium 3.8 Chloride 103 Carbon Dioxide 29.8 Anion Gap 6.2 BUN 11 Creatinine 0.8 Est GFR (CKD-EPI 2020) 80.21 Glucose 270 H Calcium 8.7 Magnesium 1.5 L Total Bilirubin 1.8 H Conjugated Bilirubin 0.6 H AST 48 H ALT 35 Alkaline Phosphatase 242 H Ammonia 86 H Total Protein 6.7 Albumin 3.1 L Procalcitonin < 0.1 Urine Color Dark Yellow Urine Clarity Sl Cloudy Urine pH 7.0 Ur Specific [place] >= 1.030 H Urine Protein 100 H Urine Ketones Negative Urine Blood Small H Urine Nitrite Negative Urine Bilirubin Negative Urine Urobilinogen 2.0 H Ur Leukocyte Esterase Negative Urine RBC 5-10 H Urine WBC 0-2 Ur Epithelial Cells Few Urine Crystals Negative Urine Bacteria Rare Urine Casts 0-2 Hyaline Urine Mucus Negative Ur Culture Indicated? C&S Done As Ordered Urine Glucose >=1000 H COVID-19 Source Nasopharynx SARS-CoV-2 (PCR) Negative Influenza Type A (PCR) Negative Influenza Type B (PCR) Negative RSV (PCR) Negative 04/13/24 06:02 WBC 11.11 H RBC 3.41 L Hgb 10.5 L Hct 31.8 L MCV 93 MCH 30.8 MCHC 33.0 RDW 15.1 H Plt Count 87 L MPV 10.4 Immature Gran % 1.1 Neutrophils % 83.5 Lymphocytes % 6.6 Monocytes % 7.5 Eosinophils % 0.8 Basophils % 0.5 Nucleated RBC % 0.0 Absolute Neutrophils 9.28 H Absolute Lymphocytes 0.73 L Absolute Monocytes 0.83 H Absolute Eosinophils 0.09 Absolute Basophils 0.06 RBC Morphology Normal PT INR APTT VBG Lactate Sodium 140 Potassium 3.3 L Chloride 106 Carbon Dioxide 27.1 Anion Gap 6.9 BUN 15 Creatinine 1.0 Est GFR (CKD-EPI 2020) 61.36 Glucose 225 H Calcium 8.0 L Magnesium 1.7 L Total Bilirubin 2.3 H Conjugated Bilirubin AST 52 H ALT 32 Alkaline Phosphatase 159 H Ammonia Total Protein 5.1 L Albumin 2.3 L Procalcitonin Urine Color Urine Clarity Urine pH Ur Specific [place] Urine Protein Urine Ketones Urine Blood Urine Nitrite Urine Bilirubin Urine Urobilinogen Ur Leukocyte Esterase Urine RBC Urine WBC Ur Epithelial Cells Urine Crystals Urine Bacteria Urine Casts Urine Mucus Ur Culture Indicated? Urine Glucose COVID-19 Source SARS-CoV-2 (PCR) Influenza Type A (PCR) Influenza Type B (PCR) RSV (PCR) Time Spent with Patient Time Spent with Patient: 35-49 minutes Time was spent: preparing to see the patient(eg.review tests), obtaining and/or reviewing separately [facility], ordering medications,tests, procedures, indepentently interpreting results and counseling the patient
[2024-04-13] MEDS: cefTRIAXone 2 GM/50 ML BAG IVPB (12:31)
[2024-04-13 12:32] LABS: Lactate 2.1 mmol/L (0.6-1.4)
[2024-04-13] MEDS: Potassium Chloride 20 MEQ TABCR PO ×2 (13:14→16:58)
[2024-04-13] MEDS: Ondansetron O.D.T. 4 MG TABEF PO (13:14)
[2024-04-13] MEDS: Normal Saline 500 ML IV (13:29)
--- NOTE | 2024-04-13 14:13 | W.NUTRFU ---
Date of service: 04/13/24 Time of Service: 11:48 Nutrition Note NOTE: received consult request regarding: diabetes mgt/education Pt is 68yo female admitted with sepsis, encephalopathy, UTI. PMH nutritionally significant for SALCIDO with associated cirrhosis, hyperglycemia due to DMII, JAYDEN, hypomagnesemia. Pt had her last A1C value at 7.9% last in February 2024 and states it has gotten into the 11's in her history multiple times. Ordered for low sodium and consistent carb diet order appropriately. Reports fairy appetite/intake recently. Reports no changes in weight recently. Lives at home with and disabled 39yo son who helps with transportation and meals when he can. At home takes metformin BID and ozempic (which she states has helped decrease her appetite). She is ordered for Jardiance but relates it is a morning pill and often forgets to take it (along with some other morning meds). She probably takes it twice weekly. Pt related diet history from usual intake and assessed at low in fiber and often excessive in CHO. Pt staes she has seen RDN in the past for DM education and declines to get into receommendations specific to her needs today. I encouraged to set her meds up so she takes them consistently. Offered outpt nutrition services, which aren't desired at this time. Will monitor pt labs, po intake and will remain available to offer more education as desired Nutrition dx: Limited adherence to nutritional recommendations related to education, motivation barriers as evidenced by verbal diet history and pt interview. Time Spent in Nutritional Counseling and Treatment: 10 min
[2024-04-14] VITALS (7 sets, daily range): BP systolic 121–142; BP diastolic 41–60; PULSE 86–98; RESP 18–20; TEMP 37.4–38; O2SAT 94–99
[2024-04-14] MEDS: Enoxaparin 40 MG/0.4 ML SYR SC (00:14)
[2024-04-14 07:03] LABS: Abs Immature Grans 0.21 10^3/uL (0.0-0.06); Absolute Eosinophil Count 0.13 10^3/uL (0.0-0.7); Absolute Lymphocyte Count 0.93 10^3/uL (1.2-3.4); Absolute Monocyte Count 0.99 10^3/uL (0.1-0.8); Absolute Neutrophil Count 8.85 10^3/uL (1.2-6.7); Basophils % 0.4 %; Eosinophils % 1.2 %; HCT 34.1 % (36.0-46.0); HGB 11.2 g/dL (11.2-15.7); Immature Grans % 1.9 %; Lymphocytes % 8.3 %; MCH 29.9 pg (27.0-33.0); MCHC 32.8 % (32.0-36.0); MCV 91 fL (80-95); MPV 11.3 fL (8.0-11.0); Monocytes % 8.9 %; Neutrophils % 79.3 %; RBC 3.74 10^6/uL (3.93-5.22); RDW 15.6 % (11.7-14.6); RDW-SD 51.9 fL; WBC 11.16 10^3/uL (4.4-10.8)
[2024-04-14 07:07] LABS: Absolute Basophil Count 0.04 10^3/uL (0.0-0.2)
[2024-04-14 07:22] LABS: ALT 33 U/L (14-59); AST 47 U/L (15-37); Albumin 2.3 g/dL (3.4-5.0); Alkaline Phosphatase 141 U/L (46-116); Anion Gap 5.4 mmol/L (3-11); BUN 18 mg/dL (7-18); CO2 29.6 mmol/L (21.0-32.0); Calcium 7.9 mg/dL (8.5-10.1); Chloride 103 mmol/L (98-107); Estimated GFR 61.36 (mL/min/1.73m2); Glucose 231 mg/dL (74-106); Magnesium 1.6 mg/dL (1.8-2.4); Potassium 3.2 mmol/L (3.5-5.1); Sodium 138 mmol/L (136-145); Total Protein 5.3 g/dL (6.4-8.2)
[2024-04-14 07:27] LABS: Diff Comment Diff Reviewed; Platelet Count 69 10^3/uL (130-400); RBC Morphology Normal
[2024-04-14] MEDS: DOXYCYCLINE 100 MG in Normal Saline 100 ML IVPB (07:40)
[2024-04-14] MEDS: Normal Saline Flush 10 ML SYR IVP ×2 (07:40→10:17)
[2024-04-14] MEDS: Nystatin POWDER 15 GM JAR TP ×2 (07:41→15:52)
[2024-04-14] MEDS: FLUoxetine 20 MG CAP 40 MG PO (07:42)
[2024-04-14] MEDS: rOPINIRole 1 MG TAB 2 MG PO ×2 (07:43→20:41)
[2024-04-14] MEDS: Potassium Chloride 20 MEQ TABCR PO (07:43)
[2024-04-14] MEDS: metFORMIN 500 MG TAB 1000 MG PO ×2 (07:43→16:27)
[2024-04-14] MEDS: Pantoprazole 40 MG TABCR PO ×2 (07:44→20:41)
[2024-04-14] MEDS: Oxybutynin 5 MG TAB PO ×2 (07:44→20:41)
[2024-04-14] MEDS: Insulin Aspart 300 UNITS/3 ML PEN SC ×3 (07:53→16:55)
--- NOTE | 2024-04-14 09:48 | W.PM.PROGNOT ---
Date of Service Date of service: 04/14/24 Time of Service: 18:53 Assessment and Plan Assessment and plan (1) Severe sepsis: Status: Acute Assessment and plan: Blood cultures and urine cultures are pending. tick panel pending Continue doxycycline to cover possible tick borne infection and ceftriaxone while urine cultures pending. (2) Encephalopathy: Status: Acute Assessment and plan: Patient has a history of encephalopathy presumed to be secondary to her chronic liver disease. She is not consistently taking her lactulose. Mentation appears at baseline today. Continue lactulose twice daily. Will continue to monitor for mental status changes. (3) Urinary tract infection: Status: Acute Assessment and plan: urine culture is pending. In January 2024 she did grow out 2 species of E. 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 Trend (6) Hypersomnia: Status: Acute Assessment and plan: Seen recently by Dr. Lopes regarding hypersomnia. She is instructed not to drive. Use CPAP (7) Hyperglycemia due to type 2 diabetes mellitus: Status: Acute Assessment and plan: Poorly controlled type 2 diabetes. Non compliant. Glucose this am 231 Continue sliding scale insulin and fingersticks AC. (8) JAYDEN (obstructive sleep apnea): Status: Chronic Assessment and plan: Patient wears nocturnal CPAP. (9) Pituitary cyst: Status: Chronic Assessment and plan: Known pituitary adenoma. No change on recent imaging. 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 She has seen Dr. Kovacs recently. She has a referral to [facility] orthopedics for another opinion. (11) Hypomagnesemia: Status: Acute Assessment and plan: replete and follow (12) Hypokalemia: Status: Acute Assessment and plan: replete and follow (13) DVT prophylaxis: Status: Acute Assessment and plan: enoxaparin daily (14) Discharge planning issues: Status: Acute Assessment and plan: case management following anticipate discharge to home when stable, +/- services discussed with Dr Melchor Subjective Subjective Patient reports: no new complaints, feels better, tolerating a regular diet, voiding w/o difficulty, bowel movement and afebrile; denies diarrhea or vomiting Interval history since last seen: Awake, alert, conversant, no complaints. Exam Narrative Exam Narrative: Well-appearing elderly female laying in bed in no acute distress, ANO x 4, heart regular rhythm, lungs clear to auscultation bilaterally, abdomen soft, nontender, nondistended Psych Mental Status: mental status grossly normal Speech and Movement: speech and movement normal Mood: congruent mood Affect: normal affect Objective Last Vital Signs Temp 37.8 C H 04/14/24 08:05 Pulse 96 H 04/14/24 08:05 Resp 18 04/14/24 08:05 BP 126/51 L 04/14/24 08:05 Pulse Ox 96 04/14/24 08:05 Laboratory Results - last 24 hr 04/13/24 04/14/24 12:20 06:41 WBC 11.16 H RBC 3.74 L Hgb 11.2 Hct 34.1 L MCV 91 MCH 29.9 MCHC 32.8 RDW 15.6 H Plt Count 69 L MPV 11.3 H Immature Gran % 1.9 Neutrophils % 79.3 Lymphocytes % 8.3 Monocytes % 8.9 Eosinophils % 1.2 Basophils % 0.4 Nucleated RBC % 0.0 Absolute Neutrophils 8.85 H Absolute Lymphocytes 0.93 L Absolute Monocytes 0.99 H Absolute Eosinophils 0.13 Absolute Basophils 0.04 RBC Morphology Normal VBG Lactate 2.1 H Sodium 138 Potassium 3.2 L Chloride 103 Carbon Dioxide 29.6 Anion Gap 5.4 BUN 18 Creatinine 1.0 Est GFR (CKD-EPI 2020) 61.36 Glucose 231 H Calcium 7.9 L Magnesium 1.6 L Total Bilirubin 2.0 H AST 47 H ALT 33 Alkaline Phosphatase 141 H Total Protein 5.3 L Albumin 2.3 L Time Spent with Patient Time Spent with Patient: 25-34 minutes Time was spent: preparing to see the patient(eg.review tests), ordering medications,tests, procedures, referring, communicating with other health child care associate teacher, indepentently interpreting results, counseling the patient and care coordination
[2024-04-14] MEDS: MAGNESIUM SULFATE 2 GM/50 ML BAG IVINF (10:17)
[2024-04-14 10:58] LABS: Lyme Ab w Rflx to Lyme Confirm Negative (Negative)
[2024-04-14] MEDS: cefTRIAXone 2 GM/50 ML BAG IVPB (13:05)
[2024-04-14] MEDS: POTASSIUM CHLORIDE 20 MEQ/100 ML BAG 50 MEQ IVINF ×2 (14:13→16:25)
[2024-04-14] MEDS: Acetaminophen 325 MG TAB PO (20:40)
[2024-04-14] MEDS: Doxepin 10 MG CAP 20 MG PO (20:41)
[2024-04-14] MEDS: oxyCODONE 5 MG TAB PO (20:41)
[2024-04-14] MEDS: DOXYCYCLINE 100 MG in Normal Saline 100 ML 200 MG IVPB (20:42)
[2024-04-15] VITALS (7 sets, daily range): BP systolic 108–140; BP diastolic 42–66; PULSE 71–98; RESP 15–20; TEMP 36.4–37; O2SAT 94–98
[2024-04-15] MEDS: Enoxaparin 40 MG/0.4 ML SYR SC (00:25)
[2024-04-15 06:28] LABS: Abs Immature Grans 0.07 10^3/uL (0.0-0.06); Absolute Basophil Count 0.05 10^3/uL (0.0-0.2); Absolute Eosinophil Count 0.38 10^3/uL (0.0-0.7); Absolute Lymphocyte Count 1.65 10^3/uL (1.2-3.4); Absolute Monocyte Count 1.03 10^3/uL (0.1-0.8); Absolute Neutrophil Count 6.52 10^3/uL (1.2-6.7); Basophils % 0.5 %; Eosinophils % 3.9 %; HCT 35.9 % (36.0-46.0); HGB 11.4 g/dL (11.2-15.7); Immature Grans % 0.7 %; MCH 30.3 pg (27.0-33.0); MCHC 31.8 % (32.0-36.0); MCV 96 fL (80-95); MPV 10.8 fL (8.0-11.0); Monocytes % 10.6 %; Neutrophils % 67.3 %; RBC 3.76 10^6/uL (3.93-5.22); RDW 15.9 % (11.7-14.6); RDW-SD 55.6 fL
[2024-04-15 06:47] LABS: ALT 25 U/L (14-59); AST 37 U/L (15-37); Albumin 2.4 g/dL (3.4-5.0); Alkaline Phosphatase 134 U/L (46-116); Anion Gap 2.2 mmol/L (3-11); BUN 21 mg/dL (7-18); Bilirubin, Total 1.4 mg/dL (0.2-1.0); CO2 29.8 mmol/L (21.0-32.0); CREATININE 0.9 mg/dL (0.55-1.02); Calcium 8.5 mg/dL (8.5-10.1); Chloride 104 mmol/L (98-107); Estimated GFR 69.64 (mL/min/1.73m2); Glucose 193 mg/dL (74-106); Sodium 136 mmol/L (136-145); Total Protein 5.6 g/dL (6.4-8.2)
[2024-04-15 07:10] LABS: Diff Comment Diff Reviewed; Platelet Count 81 10^3/uL (130-400); RBC Morphology Normal
[2024-04-15] MEDS: rOPINIRole 1 MG TAB 2 MG PO ×2 (08:14→20:08)
[2024-04-15] MEDS: metFORMIN 500 MG TAB 1000 MG PO ×2 (08:15→16:04)
[2024-04-15] MEDS: FLUoxetine 20 MG CAP 40 MG PO (08:16)
[2024-04-15] MEDS: Insulin Aspart 300 UNITS/3 ML PEN SC ×3 (08:17→17:31)
[2024-04-15] MEDS: Pantoprazole 40 MG TABCR PO ×2 (08:17→20:08)
[2024-04-15] MEDS: Oxybutynin 5 MG TAB PO ×2 (08:17→20:09)
[2024-04-15] MEDS: Normal Saline Flush 10 ML SYR IVP ×2 (08:18→20:10)
[2024-04-15] MEDS: Nystatin POWDER 15 GM JAR TP ×3 (08:24→20:10)
[2024-04-15] MEDS: DOXYCYCLINE 100 MG in Normal Saline 100 ML IVPB (08:24)
--- NOTE | 2024-04-15 10:52 | W.PM.PROGNOT ---
Date of Service Date of service: 04/15/24 Time of Service: 15:40 Assessment and Plan Assessment and plan (1) Severe sepsis: Status: Acute Assessment and plan: Blood cultures positive and urine cultures neagitive. tick panel pending hold doxycycline pending tick panel results, Continue ceftriaxone until repeat blood culture negative then narrow (2) Bacteremia: Status: Acute Assessment and plan: GPC: Staph epidermis Repeat blood culture today (3) Encephalopathy: Status: Acute Assessment and plan: Patient has a history of encephalopathy presumed to be secondary to her chronic liver disease. She is not consistently taking her lactulose. Clear mentation today NH3 was 86 on admission Continue lactulose twice daily for 3 BMs/ d24 hours. Will continue to monitor for mental status changes. 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 Portal HTN in past imaging but not on B-michelle CM to look into past meds as patient does not remember if she might have been on beta-michelle or not CMP in AM (8) Hypersomnia: Status: Acute Assessment and plan: Not to dive as per Dr. Lopes regarding hypersomnia. Use CPAP at home at HS (9) Hyperglycemia due to type 2 diabetes mellitus: Status: Acute Assessment and plan: Poorly controlled type 2 diabetes. Non compliant. Glucose 169 to 206 for the past 24 hours, 270 on admission Poor sleep hygiene and disregulated circadian rhythm, patient sleeps mostly in the day time and has difficulty falling asleep; Will order melatonin Continue sliding scale insulin and fingersticks AC. (10) JAYDEN (obstructive sleep apnea): Status: Chronic Assessment and plan: Patient wears nocturnal CPAP Family forgot to bring in today again; will reach out to PT re: order. (11) Pituitary cyst: Status: Chronic Assessment and plan: Known pituitary adenoma. 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 She has seen Dr. Kovacs recently. She has a referral to [facility] orthopedics for another opinion. (13) Hypomagnesemia: Status: Acute Assessment and plan: Mag 2.0 (14) Hypokalemia: Status: Acute Assessment and plan: K 4.0 labs in AM (15) DVT prophylaxis: Status: Acute Assessment and plan: enoxaparin stopped TEDs (16) Discharge planning issues: Status: Acute Assessment and plan: Case management following anticipate discharge to home when stable, +/- services discussed with Dr Melchor Subjective Subjective Patient reports: feels better (reported soreness on tongue and throat like when she is getting thrush), tolerating liquids well, voiding w/o difficulty, flatus, bowel movement, blood in stool (stool for occult blood was positive ), nausea and vomiting; denies tolerating a regular diet, shortness of breath or fever Exam Narrative Exam Narrative: Constitutional The patient is in bed comfortable without acute distress HENMT: Facial structures with normal appearance Neuro:alert and oriented to self, person, place, time and situation. Resp: clear lung bilaterally, decreased bases Cardio: regular rhythm, S1, S2, + murmur, bilateral radial and dorsalis pedis pulses are positive GI: Abdomen is not distended, soft and non tender, bowel sounds are present Integumentary: skin breakdown in groins, small white speck, scattered on tongue Extremities: strength 5/5 to bilateral lower and upper extremities Psych: RASS 0, congruent mood and normal affect. Objective Last Vital Signs Temp 36.8 C 04/15/24 07:44 Pulse 71 04/15/24 07:44 Resp 16 04/15/24 07:44 BP 108/66 04/15/24 07:44 Pulse Ox 98 04/15/24 07:44 Laboratory Results - last 24 hr 04/13/24 04/15/24 06:02 06:18 WBC 9.70 RBC 3.76 L Hgb 11.4 Hct 35.9 L MCV 96 H D MCH 30.3 MCHC 31.8 L RDW 15.9 H Plt Count 81 L MPV 10.8 Immature Gran % 0.7 Neutrophils % 67.3 Lymphocytes % 17.0 Monocytes % 10.6 Eosinophils % 3.9 Basophils % 0.5 Nucleated RBC % 0.0 Absolute Neutrophils 6.52 Absolute Lymphocytes 1.65 Absolute Monocytes 1.03 H Absolute Eosinophils 0.38 Absolute Basophils 0.05 RBC Morphology Normal Sodium 136 Potassium 4.0 Chloride 104 Carbon Dioxide 29.8 Anion Gap 2.2 L BUN 21 H Creatinine 0.9 Est GFR (CKD-EPI 2020) 69.64 Glucose 193 H Calcium 8.5 Magnesium 2.0 Total Bilirubin 1.4 H AST 37 ALT 25 Alkaline Phosphatase 134 H Total Protein 5.6 L Albumin 2.4 L Lyme Disease Antibody Negative Time Spent with Patient Time Spent with Patient: >50 minutes Time was spent: preparing to see the patient(eg.review tests), obtaining and/or reviewing separately otained hiistory, ordering medications,tests, procedures, referring, communicating with other health medication care manager, indepentently interpreting results, counseling the patient and care coordination
--- NOTE | 2024-04-15 10:55 | PDOC.CMPRO ---
Date of service: 04/15/24 Time of Service: 10:55 Care Management Progress Note Progress Note Text Progress Note Text: S/O:Re was sitting up in bed when CM met with her. She talked about her continued issues with sleeping, especially during the daytime after she eats and how it affects her night time rest. Re has been found to have 2/2 blood cultures positive for S. epidermidis. Her urine is also growing gram positive cocci which is consistent with S. epidermidis, but the organism has not been identifies yet. Re had more blood cultures drawn today..Clinically eR is doing well. her vital signs are stable and she is afebrile. If her blood cultures from today remain negative at 24 hours, she will likely be discharged tomorrow. A:Re is a 68 year old woman admitted on 04/12/24 with sepsis Discharge Potential Discharge Needs: PCP F/U Appt Anticipated Barriers to Discharge: None Identified Patient/Family Education Needs: Review discharge instructions, discuss Ask Me Three Transportation: Private vehicle Plan: Expect that Re will be discharged home, possibly with new home health services, when medically stable. She will follow up with her PCP and plan of care and transport with her family. CM will follow and continue to assess for discharge needs. SDOH(Care Management) Screening Will the Patient Participate in the Screening?: Unable to obtain
[2024-04-15] MEDS: Lactulose 20 GM/30 ML CUP 15 GM PO (12:02)
[2024-04-15] MEDS: cefTRIAXone 2 GM/50 ML BAG IVPB (12:24)
[2024-04-15] MEDS: Ondansetron O.D.T. 4 MG TABEF PO (12:49)
[2024-04-15] MEDS: Nystatin 500000 UNITS/5 ML SUSP 5ML CUP PO ×2 (16:14→20:07)
--- NOTE | 2024-04-15 16:54 | CHAPLAIN ---
Re had her plate of lunch in front of her when I visited, but said she would eat that. With permission from her nurse, I got her some peanut butter and crackers. Re said she has hired someone to help her with housework at home, as she is able to do less and her requires care. She is worried that the the increased need for help for her and her is having a negative physical effect on her son who helps them out.
[2024-04-15 19:24] LABS: Anaplasma phagocytophilum Negative (Negative); B. miyamotoi PCR Negative (Negative); Babesia divergens/MO-1 Negative (Negative); Babesia duncani Negative (Negative); Babesia microti Negative (Negative); Ehrlichia chaffeensis Negative (Negative); Ehrlichia ewingii/canis Negative (Negative); Ehrlichia muris eauclairensis Negative (Negative)
[2024-04-15] MEDS: Lactulose 20 GM/30 ML CUP 30 GM PO (20:07)
[2024-04-15] MEDS: Melatonin 3 MG TAB 6 MG PO (20:08)
[2024-04-15] MEDS: oxyCODONE 5 MG TAB PO (20:08)
[2024-04-15] MEDS: Doxepin 10 MG CAP 20 MG PO (20:08)
[2024-04-16 03:28] VITALS: BP 135/61; PULSE 75; RESP 17; TEMP 36.6; O2SAT 95
[2024-04-16 08:00] VITALS: BP 128/43; PULSE 68; RESP 16; TEMP 36.7; O2SAT 95
[2024-04-16] MEDS: Oxybutynin 5 MG TAB PO (09:50)
[2024-04-16] MEDS: FLUoxetine 20 MG CAP 40 MG PO (09:50)
[2024-04-16] MEDS: Lactulose 20 GM/30 ML CUP 30 GM PO (09:50)
[2024-04-16] MEDS: Normal Saline Flush 10 ML SYR IVP ×2 (09:50→12:23)
[2024-04-16] MEDS: Pantoprazole 40 MG TABCR PO (09:50)
[2024-04-16] MEDS: Nystatin 500000 UNITS/5 ML SUSP 5ML CUP PO ×2 (09:50→14:39)
[2024-04-16] MEDS: Nystatin POWDER 15 GM JAR TP ×2 (09:50→14:40)
[2024-04-16] MEDS: metFORMIN 500 MG TAB 1000 MG PO ×2 (09:50→17:19)
[2024-04-16] MEDS: rOPINIRole 1 MG TAB 2 MG PO (09:50)
[2024-04-16 10:20] LABS: ALT 21 U/L (14-59); AST 27 U/L (15-37); Albumin 2.3 g/dL (3.4-5.0); Alkaline Phosphatase 131 U/L (46-116); Anion Gap 6.2 mmol/L (3-11); BUN 21 mg/dL (7-18); Bilirubin, Total 0.9 mg/dL (0.2-1.0); CO2 28.8 mmol/L (21.0-32.0); CREATININE 0.7 mg/dL (0.55-1.02); Calcium 8.5 mg/dL (8.5-10.1); Chloride 104 mmol/L (98-107); Estimated GFR 94.15 (mL/min/1.73m2); Glucose 136 mg/dL (74-106); Potassium 4.1 mmol/L (3.5-5.1); Sodium 139 mmol/L (136-145); Total Protein 5.5 g/dL (6.4-8.2)
[2024-04-16 11:24] VITALS: BP 104/87; PULSE 82; RESP 18; TEMP 36.6; O2SAT 96
[2024-04-16 11:40] LABS: RBC 3.47 10^6/uL (3.93-5.22); WBC 6.35 10^3/uL (4.4-10.8)
[2024-04-16 11:41] LABS: Absolute Monocyte Count 0.66 10^3/uL (0.1-0.8); Eosinophils % 6.3 %; HCT 32.4 % (36.0-46.0); HGB 10.8 g/dL (11.2-15.7); Lymphocytes % 23.6 %; MCH 31.1 pg (27.0-33.0); MCHC 33.3 % (32.0-36.0); MCV 93 fL (80-95); MPV 11.2 fL (8.0-11.0); Monocytes % 10.4 %; Neutrophils % 58.3 %; Platelet Count 100 10^3/uL (130-400); RDW 15.8 % (11.7-14.6); RDW-SD 53.7 fL
[2024-04-16 11:42] LABS: Abs Immature Grans 0.03 10^3/uL (0.0-0.06); Absolute Basophil Count 0.06 10^3/uL (0.0-0.2); Basophils % 0.9 %; Immature Grans % 0.5 %
[2024-04-16] MEDS: cefTRIAXone 2 GM/50 ML BAG IVPB (12:22)
[2024-04-16] MEDS: Insulin Aspart 300 UNITS/3 ML PEN SC (12:22)
--- NOTE | 2024-04-16 12:49 | PDOC.CMPRO ---
Date of service: 04/16/24 Time of Service: 12:49 Care Management Progress Note Progress Note Text Progress Note Text: S/O:Re was sitting up in bed when CM met with her. A:Re is a 68 year old woman admitted on 04/12/24 with sepsis Discharge Plan: Expect that Re will be discharged home, possibly with new home health services, when medically stable. She will follow up with her PCP and plan of care and transport with her family. CM will follow and continue to assess for discharge needs. SDOH(Care Management) Screening Will the Patient Participate in the Screening?: Unable to obtain
--- NOTE | 2024-04-16 15:57 | CMDISCH_ITS ---
Date of service: 04/16/24 Time of Service: 15:57 LACE Index Scoring Tool Questions: Length of Stay (in days): 4 - 6 Was the patient admitted via the E.D.?: Yes Comorbidities: Diabetes w/o Complication, Congestive Heart Failure and Liver or Renal Disease E.D. Visits: 3 Answers: Total Score: 15 Risk of Readmission: High Risk Care Management Discharge Plan Reason for Hospitalization: sepsis Discharge Plan: Re will be discharged home with no new services. She will follow up with her PCP and plan of care and transport with her family. Patient/Family Education Needs: Review discharge instructions, discuss Ask Me Three SDOH Health Related Social Needs: Health related social needs inadequate housing, transp o insecurity
--- NOTE | 2024-04-16 16:51 | DSE_ITS ---
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 (13) Hypomagnesemia: Status: Acute (14) Hypokalemia: Status: Acute (15) DVT prophylaxis: Status: Acute (16) Discharge planning issues: Status: Acute Discharge Plan Disposition Patient Disposition: Home Condition: Improving Discharge Details Reason For Visit: Sepsis Admit Date/Time: 04/12/24 22:41 Admit Provider: Jamal Mendoza Attending Provider: Jamal Mendoza Primary Care Provider: Jefe Coffey Hospital Course Hospital Course: This is a 68-year-old female patient with past medical history significant for, not limited to AVM, iron deficiency anemia, anxiety, Crohn?s, depression, HLD, HTN, kidney stones, SALCIDO with cirrhosis, OA, pancreatitis, DM, vitamin D deficiency, RLS and JAYDEN.? ?who presented to the [facility] ED on 04/13/2024for evaluation of sudden onset fever, Tmax 39.4, chills, and rigors without any preceding symptoms. She denied cough, shortness of breath, or urinary symptoms. There was no mention of any recent exposure to sick individuals. Given her medical history, it's notable that she had a similar admission in January 2024 for a urinary tract infection, which resolved with Levaquin treatment. However, her current symptoms do not specifically suggest a UTI, and urinalysis was negative for infection.? In the emergency room, she exhibited a high temperature of 39.3?C, and some concerning laboratory findings including an elevated lactate level of 3.1 and an elevated ammonia level of 86. Interestingly, her procalcitonin level is low, which typically suggests a bacterial infection is less likely.? It's positive that she did not have mental confusion this time, as she did during her previous admission.? She was started on intravenous Levaquin and admitted for observation. Given her elevated lactate and ammonia levels, blood cultures were pending on admission.? On admission antibiotics were changed to doxycycline to cover tick born illness and ceftriaxone to cover urinary track infection pending urine culture. Patient admits to not taking her lactulose consistently and with past history of SALCIDO, this is probably causing her increased ammonia. Urine culture negative. First blood culture positive for staphylococcus epidermidis, suspect contaminant.? Second blood cultures negative. Chest xray as read by the wet process assistant head miller mild cardiomegaly, mild pulmonary venous hypertension pattern, no airspace pulmonary edema; no focal consolidation. Patient?s WBC decreased to 6.35, Hgb 10.8, electrolytes unremarkable, alk phosphatase 131, albumin 2.3.? Lyme panel negative. Patient is discharged to home, stable with 5 more days of doxycycline and 5 days of cefpodoxime. Home Meds and New Rx's Prescriptions: New cefpodoxime 200 mg tablet 200 mg PO BID Qty: 10 0RF Rx Instructions: must administer with a meal/food doxycycline hyclate 100 mg capsule 100 mg PO BID Qty: 10 0RF Continued lactulose 10 gram/15 mL solution 30 g PO BID Ozempic 0.25 mg or 0.5 mg (2 mg/3 mL) pen injector 0.25 mg subcut QWEEK Rx Instructions: for 4 weeks oxycodone 5 mg tablet 5 mg PO Q6H PRN Jardiance 10 mg tablet 10 mg PO DAILY metformin 1,000 mg Tablet 1,000 mg PO BID ropinirole 2 mg Tablet 2 mg PO BID nystatin 100,000 unit/gram Powder 6,000,000 unit topical TID Qty: 60 0RF Rx Instructions: apply to reddened skin folds pantoprazole 40 mg Tablet,Delayed Release (Dr/Ec) 40 mg PO BID polyethylene glycol 3350 17 gram Powder In Packet 17 g PO DAILY PRN PRN (Reason: Constipation) Qty: 0 0RF oxybutynin chloride 5 mg Tablet 5 mg PO BID Qty: 60 0RF torsemide 20 mg tablet 40 mg PO DAILY Patient Comments: TAKE TWO TABLETS BY MOUTH EVERY DAY fluoxetine 40 mg capsule 40 mg PO DAILY ondansetron HCl 4 mg tablet 4 mg PO DAILY PRN Patient Comments: TAKE ONE TABLET BY MOUTH EVERY DAY NEEDED FOR NAUSEA Changed doxepin 10 mg capsule 20 mg PO QHS Qty: 0 0RF Patient Comments: 20 mg once a day Discharge Instructions Instructions: Cefpodoxime, Doxycycline, Sepsis in adults - Discharge instructions Additional Instructions: Take all antibiotics until completed. Stay hydrated, but monitor fluid intake Use your CPAP machine at night. Continue home medications. Continue nystatin. Rest. Stand Alone Forms: Nursing Discharge Form Referrals: Jefe Coffey [Primary Care Provider] - (Please call to make a follow up appointment for 1-2 weeks post inpatient visit) Activity:: Activity as Tolerated Equipment/Supplies:: No Equipment Needed Diet:: diabetic Discharge Orders Discharge Orders: Discharge Order (Routine); Ordered 04/16/24 Ordered By: Diann Machuca DS: Summary Time Spent with Patient providing and/or coordinating discharge services: Greater than 30 minutes Status at Discharge Functional status at discharge: independent ambulation Overall status at discharge: patient is back to baseline Mental Status: mental status grossly normal Speech and Movement: speech and movement normal Mood: congruent mood Affect: normal affect Quality:SDOH Health Related Social Needs: Health related social needs inadequate housing, transp o insecurity Exam Narrative Exam Narrative: Constitutional The patient is sitting in chair, without acute distress HENMT: Facial structures with normal appearance Neuro:alert and oriented to self, person, place, time and situation. Resp: clear lung bilaterally, decreased bases Cardio: regular rhythm, S1, S2, + murmur, bilateral radial and dorsalis pedis pulses are positive GI: Abdomen is not distended, soft and non tender, bowel sounds are present Integumentary: skin breakdown in groins; small white speck, scattered on tongue Extremities: strength 5/5 to bilateral lower and upper extremities Psych: RASS 0, congruent mood and normal affect. Psych Mental Status: mental status grossly normal Speech and Movement: speech and movement normal Mood: congruent mood Affect: normal affect DS: Data Vitals/I&O Vitals and I&O: Vital Signs Temperature 36.6 C 04/16/24 11:24 Temperature Source Temporal Artery Scan 04/16/24 11:24 Pulse 82 04/16/24 11:24 Pulse Rhythm Regular 04/16/24 08:15 Pulse 103 H 04/12/24 23:31 Respiratory Rate 18 04/16/24 11:24 Respiratory Effort Normal 04/16/24 08:15 Respiratory Depth Normal 04/16/24 08:15 Respiratory Pattern Normal 04/16/24 08:15 Blood Pressure 104/87 04/16/24 11:24 Blood Pressure Mean 91 04/12/24 23:31 Blood Pressure Position Supine 04/12/24 21:14 Pulse Oximetry 96 04/16/24 11:24 Oxygen Delivery Method Room Air 04/16/24 11:24 Oxygen Flow Rate 0 04/16/24 11:24 Fraction of Inspired Oxygen (FIO2) 21 04/16/24 10:49 Pain Level 0 04/16/24 11:24 Intake & Output 04/15/24 04/16/24 04/16/24 23:59 11:59 23:59 Intake Total 540 / 640 50 / 50 Balance 540 / 40 50 / 50 Weight 97.2 kg Intake: IV 50 / 150 50 / 50 Oral 490 / 490 Other: Urine Appearance Clear Comment pt states she went to the bathroom hours ago Stool Size Small Stool Characteristics Soft Black Green Voiding Methods Toilet Toilet Data Completed and Pending Labs on day of discharge: Labs from last 24 hours 04/16/24 04/13/24 06:02 06:02 WBC 6.35 RBC 3.47 L Hgb 10.8 L Hct 32.4 L MCV 93 MCH 31.1 MCHC 33.3 RDW 15.8 H Plt Count 100 L MPV 11.2 H Immature Gran % 0.5 Neutrophils % 58.3 Lymphocytes % 23.6 Monocytes % 10.4 Eosinophils % 6.3 Basophils % 0.9 Nucleated RBC % 0.0 Absolute Neutrophils 3.70 Absolute Lymphocytes 1.50 Absolute Monocytes 0.66 Absolute Eosinophils 0.40 Absolute Basophils 0.06 Sodium 139 Potassium 4.1 Chloride 104 Carbon Dioxide 28.8 Anion Gap 6.2 BUN 21 H Creatinine 0.7 Est GFR (CKD-EPI 2020) 94.15 Glucose 136 H Calcium 8.5 Total Bilirubin 0.9 AST 27 ALT 21 Alkaline Phosphatase 131 H Total Protein 5.5 L Albumin 2.3 L B. divergens/MO-1 PCR Negative Babesia duncani (PCR) Negative Babesia microti DNA PCR Negative E.chaffeensis DNA (PCR) Negative E.ewingii/canis DNA PCR Negative E.muris eauclairensis (PCR) Negative A. phagocytophilum (PCR) Negative Blood B. 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 Chronically elevated ammonia level. On lactulose. 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) Severe sepsis (Acute) Sepsis (Acute) Urinary tract infection (Acute) GAVE (gastric antral vascular ectasia) (Chronic) Hypersomnia (Acute) Hyperglycemia due to type 2 diabetes mellitus (Acute) JAYDEN (obstructive sleep apnea) (Chronic) Medical History (Updated 04/16/24 @ 16:51 by Diann Machuca NP) Acquired arteriovenous malformation Atypical angina Biliary dyskinesia Lung nodule Submucosal neoplasm of stomach No-show for appointment Acute hip pain Weakness Generalized pruritus Anemia Bladder spasm Dermoid cyst History of peptic ulcer disease Osteoarthritis Pancreatitis Hypertensive disorder Hepatic encephalopathy Excess skin of eyelid Edema Dyspnea Atrophy of vagina Atrophic vaginitis Actinic keratosis Pituitary adenoma Restless legs Neoplasm of parotid gland Lumbar spondylosis Lesion of esophagus Dyslipidemia Depressive disorder Crohn's disease Chronic low back pain Anxiety Anemia Cirrhosis Type 2 diabetes mellitus SALCIDO (nonalcoholic steatohepatitis) CHF (congestive heart failure) Anasarca Surgical History (Updated 04/13/24 @ 00:45 by Jamal Mendoza MD) History of oophorectomy, unilateral History of rotator cuff surgery bilateral History of total knee arthroplasty bilateral History of sleeve gastrectomy History of hysterectomy Family History Brother Cancer Lung Alcohol use disorder 2 older brothers Social History Smoking/Tobacco Use Status: Never Smoking risk assessment performed?: Yes Alcohol Intake: never Drug use: Never Substance use type: does not use Housing: house Current gender identity: female Do you feel safe at home: Yes Do you feel safe in your relationship?: Yes Additional Social history: Lives with Arslan, and son in [place]. Moved from [place] in 2019. Has a dog and 7 pet birds. Time Spent with Patient Time Spent with Patient: 45-69 minutes Time was spent: preparing to see the patient(eg.review tests), ordering medications,tests, procedures, referring, communicating with other health healthcare management, indepentently interpreting results, counseling the patient and care coordination
== END 2024-04-16 17:22 | disposition home or self-care (01) | DRG 872 ==
LOC: ER 22:25 → MS 04-13 12:08
PROVIDERS: Family Medicine; Nurse Practitioner Acute Care; Nurse Practitioner Family; Admitting Provider Family Medicine; Emergency Provider Emergency Medicine; PCP Family Medicine; Visit Provider Family Medicine
DX: A41.9 Sepsis, unspecified organism (principal); N39.0 Urinary tract infection, site not specified; B37.0 Candidal stomatitis; S42.012K Anterior displaced fracture of sternal end of left clavicle, subsequent encounter for fracture with nonunion; K76.6 Portal hypertension; K50.90 Crohn's disease, unspecified, without complications; R65.20 Severe sepsis without septic shock; K75.81 Nonalcoholic steatohepatitis (NASH); K74.60 Unspecified cirrhosis of liver; G47.10 Hypersomnia, unspecified; E11.65 Type 2 diabetes mellitus with hyperglycemia; G47.33 Obstructive sleep apnea (adult) (pediatric); K31.819 Angiodysplasia of stomach and duodenum without bleeding; E87.6 Hypokalemia; E83.42 Hypomagnesemia; D35.2 Benign neoplasm of pituitary gland; X58.XXXD Exposure to other specified factors, subsequent encounter; K76.82 Hepatic encephalopathy; Z79.85 Long-term (current) use of injectable non-insulin antidiabetic drugs; Z79.84 Long term (current) use of oral hypoglycemic drugs; Z91.148 Patient's other noncompliance with medication regimen for other reason; D50.9 Iron deficiency anemia, unspecified; F41.9 Anxiety disorder, unspecified; F32.A Depression, unspecified; E78.5 Hyperlipidemia, unspecified; N20.0 Calculus of kidney; Z96.653 Presence of artificial knee joint, bilateral; I50.9 Heart failure, unspecified; I11.0 Hypertensive heart disease with heart failure
CPT/HCPCS: 00123; 36415; 80053; 84145; 87040; 87077; 87637; 87798; 93005; 96365; 96366; 96368; 96372; 96375; 99285; J1650; 71045; 81003; 81015; 82140; 82248; 83605; 83735; 85025; 85610; 85730; 86618; 87086; 87186; 93010; 94660; 99222; 99231; 99232; 99233; 99239; J0696; J1815; J1885; J1956; J3475; J3480

== ENCOUNTER 2024-05-21 19:31 | Outpatient (CLI) | payer MEDICARE, SELFPAY ==
[2024-05-21 17:10] LABS: ESR 7 mm/hr (0-30)
[2024-05-21 17:12] LABS: Abs Immature Grans 0.01 10^3/uL (0.0-0.06); Absolute Basophil Count 0.04 10^3/uL (0.0-0.2); Absolute Eosinophil Count 0.24 10^3/uL (0.0-0.7); Absolute Lymphocyte Count 0.86 10^3/uL (1.2-3.4); Absolute Monocyte Count 0.38 10^3/uL (0.1-0.8); Absolute Neutrophil Count 2.16 10^3/uL (1.2-6.7); Basophils % 1.1 %; Eosinophils % 6.5 %; HCT 30.9 % (36.0-46.0); HGB 10.1 g/dL (11.2-15.7); Immature Grans % 0.3 %; Lymphocytes % 23.3 %; MCH 30.3 pg (27.0-33.0); MCHC 32.7 % (32.0-36.0); MCV 93 fL (80-95); MPV 10.1 fL (8.0-11.0); Monocytes % 10.3 %; Neutrophils % 58.5 %; Platelet Count 110 10^3/uL (130-400); RBC 3.33 10^6/uL (3.93-5.22); RDW 13.9 % (11.7-14.6); RDW-SD 47.5 fL; WBC 3.69 10^3/uL (4.4-10.8)
[2024-05-21 17:31] LABS: Hemoglobin A1C 6.4 % (<5.7)
[2024-05-21 18:36] LABS: ALT 24 U/L (14-59); AST 33 U/L (15-37); Albumin 2.6 g/dL (3.4-5.0); Alkaline Phosphatase 181 U/L (46-116); Anion Gap 5.3 mmol/L (3-11); BUN 11 mg/dL (7-18); Bilirubin, Total 0.97 mg/dL (0.2-1.0); CO2 30.7 mmol/L (21.0-32.0); CREATININE 0.7 mg/dL (0.55-1.02); Calcium 8.7 mg/dL (8.5-10.1); Chloride 105 mmol/L (98-107); Estimated GFR 94.15 (mL/min/1.73m2); Glucose 238 mg/dL (74-106); Potassium 3.8 mmol/L (3.5-5.1); Sodium 141 mmol/L (136-145); TSH 1.01 uIU/Ml (0.36-3.74); Total Protein 5.7 g/dL (6.4-8.2)
[2024-05-21 18:38] LABS: C-Reactive Protein < 0.50 mg/dL (<or=0.5)
[2024-05-21 19:45] LABS: Ferritin 28 ng/mL (8-252); Vitamin D 25 Total 24.5 ng/mL (30-100)
[2024-05-22 20:49] LABS: Parathyroid Hormone,Intact 38 pg/mL (19-88)
== END 2024-05-21 19:32 | disposition home or self-care (01) ==
LOC: LBO 19:31
PROVIDERS: PCP Family Medicine; Visit Provider Internal Medicine Hematology & Oncology
DX: S42.002K Fracture of unspecified part of left clavicle, subsequent encounter for fracture with nonunion (principal); D50.0 Iron deficiency anemia secondary to blood loss (chronic)
CPT/HCPCS: 80053; 82306; 85652; 82728; 83036; 83970; 84443; 85025; 86140

== ENCOUNTER 2024-05-30 01:30 | Observation (INO) | payer MEDICARE, SELFPAY ==
[2024-05-30] VITALS (34 sets, daily range): BP systolic 132–160; BP diastolic 31–111; PULSE 70–116; RESP 14–32; TEMP 36.3–38.2; O2SAT 87–98
--- NOTE | 2024-05-30 01:30 | DI.CT_ITS ---
Exam(s) CT CHEST/ABD/PEL WO EXAM: CT CHEST/ABD/PEL WO CLINICAL HISTORY: vomiting, cough, fever, generalized abd pain TECHNIQUE: Imaging Protocol: Axial computed tomography images with coronal and sagittal reformatted images were created and reviewed COMPARISON: CT CT ABDOMEN PELVIS W from 06/29/[address] ABDOMEN PELVIS W from 11/11/[address] CHEST W from 01/23/2024 CR,XR XR PORTABLE CHEST AP from 01/23/2024 FINDINGS: CHEST: Tracheobronchial tree: Patent where visualized. Pulmonary parenchyma: No consolidation or dominant measurable mass. No architectural distortion. Mediastinum and Grace: No dominant adenopathy or fluid collection. The esophagus is unremarkable. Thyroid gland: Unremarkable. Pleura: No effusion or pneumothorax. Heart: The heart is not dilated. No coronary artery calcifications are seen. No pericardial effusion. Aorta: Thoracic aorta non-dilated. Atherosclerotic calcification is present. Lymph nodes: Within normal limits. Bones:Within normal limits for the patient's age. There is an old nonunited left clavicular fracture . Soft tissues: Unremarkable. ABDOMEN: Liver: Normal density. No measurable mass. The liver has a nodular contour suggesting hepatic cirrhos is. Gallbladder and Biliary Tract: Status post cholecystectomy. Pancreas: There is mild soft tissue stranding seen around the pancreas and in the mesentery. It appe ars slightly more prominent compared to the prior examination. Please correlate for clinical finding s suggestive of acute pancreatitis. No peripancreatic fluid collection is seen. Spleen: The spleen is enlarged. There again seen collateral vessels in the upper abdomen. Adrenals: No masses seen. Kidneys: Normal size, contour and axis. No radiodense stones or obstructive uropathy. No masses seen. Abdominal Aorta: Abdominal portion non-dilated. Atherosclerotic calcification is present. Bowel: Postsurgical changes are again seen in the stomach. There is a moderate amount of stool in th e colon suggesting constipation. There is thickening of the wall of the ascending colon and proximal transverse colon. There is no evidence of bowel obstruction. No evidence of appendicitis. Peritoneal Cavity: There is a small amount of perihepatic ascites. No free air. Lymph Nodes: Within normal limits. Bones: Within normal limits for the patient's age. Soft Tissues: There is a small fat containing hiatal hernia. There is subcutaneous edema present. PELVIS: Bladder: Symmetric distention, no gross wall thickening. Reproductive Organs: Status post hysterectomy. Lymph Nodes: Within normal limits. Bones: Within normal limits for the patient's age. IMPRESSION: 1. Thickening of the wall of the ascending and proximal transverse colon. Inflammatory or infectious colitis should be considered. This may also be secondary to the patient's liver dysfunction and por yokasta hypertension. 2. Mild stranding around the pancreas which can be seen with acute pancreatitis. Please correlate cl inically. 3. No acute pulmonary process. RADIATION DOSE DELIVERED: Total DLP Total DLP DATA REPOSITORY: All CT scans at this facility are submitted to the National Radiology Data Registry (NRDR) Dose Index Registry (DIR) with the [employer] (A[employer]). RADIATION OPTIMIZATION: All CT scans at this facility use at least one of these dose optimization te chniques: automated exposure control; mA and/or kV adjustment per patient size (includes targeted exa ms where dose is matched to clinical indication); or iterative reconstruction.
[2024-05-30 01:51] LABS: Lactate 1.7 mmol/L (0.6-1.4)
[2024-05-30] MEDS: ACETAMINOPHEN 1,000 MG/100 ML BTL 400 MG IVPB (01:55)
[2024-05-30] MEDS: Normal Saline 500 ML IV (01:55)
[2024-05-30] MEDS: Ondansetron 4 MG/2 ML VIAL IVP (01:55)
[2024-05-30 01:56] LABS: Abs Immature Grans 0.05 10^3/uL (0.0-0.06); Absolute Basophil Count 0.05 10^3/uL (0.0-0.2); Absolute Eosinophil Count 0.19 10^3/uL (0.0-0.7); Absolute Lymphocyte Count 0.36 10^3/uL (1.2-3.4); Absolute Monocyte Count 0.72 10^3/uL (0.1-0.8); Basophils % 0.5 %; HCT 30.8 % (36.0-46.0); Immature Grans % 0.5 %; Lymphocytes % 3.8 %; MCH 29.8 pg (27.0-33.0); MCHC 32.5 % (32.0-36.0); MCV 92 fL (80-95); MPV 10.6 fL (8.0-11.0); Monocytes % 7.5 %; Neutrophils % 85.7 %; RBC 3.36 10^6/uL (3.93-5.22); RDW 13.3 % (11.7-14.6); RDW-SD 45.3 fL; WBC 9.57 10^3/uL (4.4-10.8)
[2024-05-30 01:57] LABS: Platelet Count 98 10^3/uL (130-400)
--- NOTE | 2024-05-30 01:57 | W.ED.GENAD ---
Discharge Plan Disposition Patient Disposition: Admit to [facility] Condition: Good Discharge Details Chief Complaint: Nausea/Vomit/Diar Clinical Impression: Sepsis, Colitis, Hyperammonemia Primary Care Provider: Jefe Coffey ED Provider: Yo Lopez Home Meds and New Rx's Prescriptions: No Action lactulose 10 gram/15 mL solution 30 g PO BID Ozempic 0.25 mg or 0.5 mg (2 mg/3 mL) pen injector 0.25 mg subcut QWEEK Rx Instructions: for 4 weeks oxycodone 5 mg tablet 5 mg PO Q6H PRN metformin 1,000 mg Tablet 1,000 mg PO BID ropinirole 2 mg Tablet 2 mg PO BID nystatin 100,000 unit/gram Powder 6,000,000 unit topical TID Qty: 60 0RF Rx Instructions: apply to reddened skin folds pantoprazole 40 mg Tablet,Delayed Release (Dr/Ec) 40 mg PO BID polyethylene glycol 3350 17 gram Powder In Packet 17 g PO DAILY PRN PRN (Reason: Constipation) Qty: 0 0RF oxybutynin chloride 5 mg Tablet 5 mg PO BID Qty: 60 0RF torsemide 20 mg tablet 40 mg PO DAILY Patient Comments: TAKE TWO TABLETS BY MOUTH EVERY DAY fluoxetine 40 mg capsule 40 mg PO DAILY ondansetron HCl 4 mg tablet 4 mg PO DAILY PRN Patient Comments: TAKE ONE TABLET BY MOUTH EVERY DAY NEEDED FOR NAUSEA doxepin 10 mg capsule 20 mg PO QHS Qty: 0 0RF Patient Comments: 20 mg once a day cefpodoxime 200 mg tablet 200 mg PO BID Qty: 10 0RF Rx Instructions: must administer with a meal/food HPI General Date/Time Provider Initiated Documentation: 05/30/24 01:35. 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 Patient states that for the last 3 days she has had a mild fever at home. She developed a mild cough today. Additionally she had labs through this evening, went for a nap, woke up and threw up multiple times and had return of her fever. She did have an infusion for iron earlier today. She admits to abdominal pain and achiness. She denies any diarrhea. She does admit to constipation. She denies any hemoptysis. She denies any hematemesis. No other complaints at this time. No other modifying factors. Related Data Home Medications ?Medication ?Instructions ?Recorded ?Confirmed metformin 1,000 mg tablet 1,000 mg PO BID 11/09/22 05/30/24 ropinirole 2 mg tablet 2 mg PO BID 11/09/22 05/30/24 pantoprazole 40 mg tablet,delayed 40 mg PO BID 12/15/22 05/30/24 release oxycodone 5 mg tablet 5 mg PO Q6H PRN 01/23/23 05/30/24 nystatin 100,000 unit/gram topical 6,000,000 unit topical TID #60 02/05/23 05/30/24 powder grams lactulose 10 gram/15 mL oral 30 g PO BID 06/26/23 05/30/24 solution polyethylene glycol 3350 17 gram 17 g PO DAILY PRN PRN Constipation 07/01/23 05/30/24 oral powder packet #0 ea oxybutynin chloride 5 mg tablet 5 mg PO BID #60 tabs 11/13/23 05/30/24 semaglutide 0.25 mg or 0.5 mg (2 0.25 mg subcut QWEEK 12/12/23 05/30/24 mg/3 mL) subcutaneous pen injector (Ozempic) torsemide 20 mg tablet 40 mg PO DAILY 01/23/24 05/30/24 fluoxetine 40 mg capsule 40 mg PO DAILY 01/24/24 05/30/24 cefpodoxime 200 mg tablet 200 mg PO BID #10 tabs 04/16/24 05/30/24 doxepin 10 mg capsule 20 mg (2 x 10 mg) PO QHS #0 caps 04/16/24 05/30/24 ondansetron HCl 4 mg tablet 4 mg PO DAILY PRN 04/16/24 05/30/24 Previous Rx's ?Medication ?Instructions ?Recorded nystatin 100,000 unit/gram topical 6,000,000 unit topical TID #60 02/05/23 powder grams polyethylene glycol 3350 17 gram 17 g PO DAILY PRN PRN Constipation 07/01/23 oral powder packet #0 ea oxybutynin chloride 5 mg tablet 5 mg PO BID #60 tabs 11/13/23 cefpodoxime 200 mg tablet 200 mg PO BID #10 tabs 04/16/24 doxepin 10 mg capsule 20 mg (2 x 10 mg) PO QHS #0 caps 04/16/24 Allergies Allergy/AdvReac Type Severity Reaction Status Date / Time Penicillins Allergy Severe Swelling/Ed Verified 05/30/24 01:41 sophie tramadol Allergy Severe Swelling/Ed Verified 05/30/24 01:41 sophie apricot Allergy Intermediate Hives Verified 05/30/24 01:41 ferrous sulfate Allergy Unknown Other (See Verified 05/30/24 01:41 Comment) raspberry Allergy Other (See Verified 05/30/24 01:41 Comment) vancomycin AdvReac Intermediate Other (See Verified 05/30/24 01:41 Comment) General Stated Complaint: Nausea/Vomit/Diar CHELA: 3 Review of Systems All systems reviewed & are unremarkable except as noted in HPI and below Exam Narrative Exam Narrative: 1.Const: Well-nourished, Well-developed, appearing stated age 2.Eyes: PERRL, no conjunctival injection, and symmetrical lids. 3.ENT: Atraumatic external nose and ears. Moist MM. Neck: Symmetric, trachea midline, No thyromegaly. 4.CVS: +S1/S2, No murmurs or gallops. Peripheral pulses 2+ and equal in all extremities. Brisk capillary refill in all extremities. 5.RESP: Unlabored respiratory effort. Clear to auscultation bilaterally. No wheezes rales or rhonchi 6.GI: Soft, nondistended, mild achiness throughout on palpation. No focal guarding or rebound. 7.MSK: Normocephalic/Atraumatic, Extremities w/o deformity or ttp No cyanosis or clubbing, Normal movement of all extremities 8.Skin: Warm, Dry. No rashes or lesions. 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 Sensation grossly intact, no focal neurologic deficits. 10.Psych: (AAO) x3. Appropriate mood and affect Course Vital Signs Vital signs: Vital Signs Temperature 38.2 C H 05/30/24 01:34 Pulse 112 H 05/30/24 01:34 Respiratory Rate 22 05/30/24 01:34 Blood Pressure 139/54 L 05/30/24 01:34 Pulse Oximetry 96 05/30/24 01:34 Temperature 38.2 C H 05/30/24 01:34 Temperature Source Oral 05/30/24 01:34 Pulse 112 H 05/30/24 01:34 Respiratory Rate 22 05/30/24 01:34 Blood Pressure 139/54 L 05/30/24 01:34 Blood Pressure Position Sitting 05/30/24 01:34 Pulse Oximetry 96 05/30/24 01:34 Pain Level 4 05/30/24 01:34 Lab/Test Results Lab/Test Results: 05/30/24 01:45 Blood Blood Culture - Pending 05/30/24 01:36 Blood Blood Culture - Pending Laboratory Tests Range/Units 05/30/24 01:45 VBG Lactate (0.6-1.4) mmol/L 1.7 H Medical Decision Making 68-year-old female with a past medical history of chronic iron deficiency anemia, Crohn's disease, depression, high blood pressure, high cholesterol, SALCIDO, diabetes mellitus, 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 Patient states that for the last 3 days she has had a mild fever at home. She developed a mild cough today. Additionally she had labs through this evening, went for a nap, woke up and threw up multiple times and had return of her fever. She did have an infusion for iron earlier today. She admits to abdominal pain and achiness. She denies any diarrhea. She does admit to constipation. She denies any hemoptysis. She denies any hematemesis. No other complaints at this time. No other modifying factors. She denies any urinary complaints. Exam demonstrates tachycardic female with fever, blood pressure stable with no hypotension. Lungs are clear, no significant rash. Mild abdominal tenderness throughout. Differential for the cause of her fever is broad but includes UTI, pneumonia, or acute infectious abdominal pathology. Lyme is on the differential, and a tick and Lyme panel has been sent. She has been admitted for bacteremia twice in the last 4 months. Tick and Lyme panel was negative on her last visit though. We will evaluate for infectious etiologies, get a CT scan to rule out obstruction of the abdomen, gently rehydrate, treat with antipyretics, monitor closely, reassess and start antibiotics secondary to her positive sepsis criteria once a source is identified. 4:42 AM Laboratory workup shows no white count however lactate is elevated at 1.7, procalcitonin is elevated at 0.3, there is a left shift. Patient does also have a notably elevated ammonia level at 174. Transaminases are normal, lipase normal. Uncertain as to the exact causative etiology for the elevated hyperammonemia, lactulose has been administered. Urinalysis shows no evidence of significant urinary tract infection. Negative nitrite, negative leuk esterase. CT scan of the chest shows no pneumonia, however there is evidence of thickening of the proximal colon which may be secondary to colitis and also some Ivan pancreatic stranding which could represent mild pancreatitis however the patient's lipase again is normal. Out of concern for colitis is a potential causative agent for her fever and sepsis we have started levofloxacin and Flagyl secondary to her allergies to vancomycin and penicillins. Vital signs show no evidence of shock, heart rate is improving. Fever has broken with antipyretics. I discussed the case with the patient's son and informed him of the plan. I discussed the case with hospitalist Dr. Carlson, he agrees with the assessment and plan. I have extensively reviewed the treatment plan with the patient. I have addressed all patient concerns at this time. I have also discussed the plan with the admitting physician and they agree with the current assessment and plan and have agreed to assume responsibility for the patient. All parties demonstrate verbal understanding and agreement with our assessment and plan at this time. The documentation in this chart was dictated using [employer] dictation software. Please excuse any dictation errors. FINDINGS: Lungs: No airspace consolidation or ground-glass opacities. Pleural spaces: No pleural effusion or pneumothorax. Heart: Unremarkable. No cardiomegaly. No pericardial effusion. Lymph nodes: Unremarkable. No enlarged lymph nodes. Vasculature: Unremarkable. No aortic aneurysm. Bones/joints: Chronic left clavicular fracture. No acute fracture. Soft tissues: Unremarkable. IMPRESSION: No acute findings. FINDINGS: Liver: Cirrhotic liver morphology with a stable appearance. Gallbladder and biliary ducts: Cholecystectomy. Pancreas: Slight peripancreatic stranding. No ductal dilation. Spleen: Stable splenomegaly. Adrenal glands: Normal. No mass. Kidneys and ureters: Normal. No hydronephrosis. Stomach and bowel: Sleeve gastrectomy. No evidence of bowel obstruction. Mucosal thickening of the proximal colon. Large amount of stool in the distal colon. Appendix: Normal appendix. Intraperitoneal space: Stranding of the mesentery and stable trace perihepatic fluid. No free air. Vasculature: Unremarkable. No abdominal aortic aneurysm. Lymph nodes: Unremarkable. No enlarged lymph nodes. Urinary bladder: Unremarkable as visualized. Reproductive: Hysterectomy. Bones/joints: Stable compression fracture deformity of the superior endplate of L4. No acute fracture. Soft tissues: Subcutaneous edema of the lower abdominal wall. IMPRESSION: 1. Stable cirrhotic liver morphology. 2. Mucosal thickening of the proximal colon which is commonly seen secondary to portal hypertension but colitis is not excluded. 3. Slight peripancreatic stranding which could reflect mild pancreatitis. Thank you for allowing us to participate in the care of your patient. Dictated and Authenticated by: Familia Oliver MD 05/30/2024 4:00 AM Eastern Time ([place] & [place]) Quality:SDOH Health Related Social Needs: Health related social needs inadequate housing, transpo insecurity Critical Care Time Critical Care Time Critical Care Time: Yes Total Critical Care Time: 45 Attestation: Upon my evaluation, this patient had a high probability of imminent or life-threatening deterioration, which required my direct attention, intervention, and personal management. I have personally provided 45 minutes of critical care time exclusive of time spent on separately billable procedures. Time includes review of laboratory data, radiology results, discussion with consultants, and monitoring for potential decompensation. Interventions were performed as documented. 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 Chronically elevated ammonia level. On lactulose. Liver cirrhosis secondary to SALCIDO Pituitary cyst Hypersomnia GAVE (gastric antral vascular ectasia) Hyperglycemia due to type 2 diabetes mellitus JAYDEN (obstructive sleep apnea) Acquired arteriovenous malformation Atypical angina Biliary dyskinesia Lung nodule Submucosal neoplasm of stomach No-show for appointment Acute hip pain Weakness Generalized pruritus Anemia Bladder spasm Dermoid cyst History of peptic ulcer disease Osteoarthritis Pancreatitis Hypertensive disorder Hepatic encephalopathy Excess skin of eyelid Edema Dyspnea Atrophy of vagina Atrophic vaginitis Actinic keratosis Pituitary adenoma Restless legs Neoplasm of parotid gland Lumbar spondylosis Lesion of esophagus Dyslipidemia Depressive disorder Crohn's disease Chronic low back pain Anxiety Anemia Cirrhosis Type 2 diabetes mellitus SALCIDO (nonalcoholic steatohepatitis) CHF (congestive heart failure) Anasarca Surgical History History of oophorectomy, unilateral History of rotator cuff surgery bilateral History of total knee arthroplasty bilateral History of sleeve gastrectomy History of hysterectomy Family History Brother Cancer Lung Alcohol use disorder 2 older brothers Social History Smoking/Tobacco Use Status: Never Smoking risk assessment performed?: Yes Alcohol Intake: never Drug use: Never Substance use type: does not use Housing: house Current gender identity: female Do you feel safe at home: Yes Do you feel safe in your relationship?: Yes Additional Social history: Lives with Arslan, and son in [place]. Moved from [place] in 2020. Has a dog and 7 pet birds.
[2024-05-30 02:09] LABS: ALT 25 U/L (14-59); Albumin 2.6 g/dL (3.4-5.0); Alkaline Phosphatase 163 U/L (46-116); Anion Gap 6.7 mmol/L (3-11); BUN 15 mg/dL (7-18); Bilirubin, Total 1.58 mg/dL (0.2-1.0); CO2 28.3 mmol/L (21.0-32.0); CREATININE 0.8 mg/dL (0.55-1.02); Calcium 8.1 mg/dL (8.5-10.1); Chloride 106 mmol/L (98-107); Estimated GFR 80.21 (mL/min/1.73m2); Glucose 193 mg/dL (74-106); Lipase 57 U/L (16-77); Potassium 3.7 mmol/L (3.5-5.1); Sodium 141 mmol/L (136-145); Total Protein 5.5 g/dL (6.4-8.2)
[2024-05-30 02:14] LABS: Diff Comment PLT Morph Reviewed; RBC Morphology Normal
[2024-05-30 02:15] LABS: ETHANOL BLOOD < 3.0 mg/dL (<10)
[2024-05-30 02:18] LABS: Ammonia 174 umol/L (11-32)
[2024-05-30 02:21] LABS: AST 21 U/L (15-37)
[2024-05-30 02:27] LABS: Bilirubin Negative (Negative); Blood Negative (Negative); Clarity Sl Cloudy (Clear); Glucose Negative (Negative); Ketones Trace mg/dL (Negative); Leukocyte Esterase Negative (Negative); Nitrite Negative (Negative); pH 8.5 (5-8)
[2024-05-30 02:31] LABS: Epithelial Cells Few HPF (Negative); RBC 0-2 HPF (0-2)
[2024-05-30 02:32] LABS: Bacteria Rare HPF (Negative); C & S Indicated? C&S Done As Ordered; Casts Negative LPF (Negative); Crystals Negative HPF (Negative); Mucus Negative (Negative); Other Cells Rare Renal (Negative)
[2024-05-30 02:39] LABS: COVID-19 PCR Negative (Negative); Influenza A PCR Negative (Negative); Influenza B PCR Negative (Negative); RSV PCR Negative (Negative)
[2024-05-30 02:40] LABS: Source Nasopharynx
[2024-05-30] MEDS: Lactulose 20 GM/30 ML CUP PO (02:48)
[2024-05-30 02:56] LABS: Procalcitonin 0.3 ng/mL
--- NOTE | 2024-05-30 04:01 | DI.VRAD_ITS ---
PROCEDURE INFORMATION: Exam: CT Chest Without Contrast; Diagnostic Exam date and time: 05/30/2024 2:21 AM Age: 68 years old Clinical indication: Fever and vomiting; Cough and fever; Additional info: Vomiting, cough, fever, generalized abd pain TECHNIQUE: Imaging protocol: Diagnostic computed tomography of the chest without contrast. 3D rendering (Not supervised by radiologist): MIP and/or 3D reconstructed images were created by the technologist. COMPARISON: CT CHEST W 23/01/2024 03:55 FINDINGS: Lungs: No airspace consolidation or ground-glass opacities. Pleural spaces: No pleural effusion or pneumothorax. Heart: Unremarkable. No cardiomegaly. No pericardial effusion. Lymph nodes: Unremarkable. No enlarged lymph nodes. Vasculature: Unremarkable. No aortic aneurysm. Bones/joints: Chronic left clavicular fracture. No acute fracture. Soft tissues: Unremarkable. IMPRESSION: No acute findings. PROCEDURE INFORMATION: Exam: CT Abdomen And Pelvis Without Contrast Exam date and time: 05/30/2024 2:21 AM Age: 68 years old Clinical indication: Fever and vomiting; Cough and fever; Additional info: Vomiting, cough, fever, generalized abd pain TECHNIQUE: Imaging protocol: Computed tomography of the abdomen and pelvis without contrast. 3D rendering (Not supervised by radiologist): MIP and/or 3D reconstructed images were created by the technologist. COMPARISON: CT ABDOMEN PELVIS W 06/04/2024 13:27 FINDINGS: Liver: Cirrhotic liver morphology with a stable appearance. Gallbladder and biliary ducts: Cholecystectomy. Pancreas: Slight peripancreatic stranding. No ductal dilation. Spleen: Stable splenomegaly. Adrenal glands: Normal. No mass. Kidneys and ureters: Normal. No hydronephrosis. Stomach and bowel: Sleeve gastrectomy. No evidence of bowel obstruction. Mucosal thickening of the proximal colon. Large amount of stool in the distal colon. Appendix: Normal appendix. Intraperitoneal space: Stranding of the mesentery and stable trace perihepatic fluid. No free air. Vasculature: Unremarkable. No abdominal aortic aneurysm. Lymph nodes: Unremarkable. No enlarged lymph nodes. Urinary bladder: Unremarkable as visualized. Reproductive: Hysterectomy. Bones/joints: Stable compression fracture deformity of the superior endplate of L4. No acute fracture. Soft tissues: Subcutaneous edema of the lower abdominal wall. IMPRESSION: 1. Stable cirrhotic liver morphology. 2. Mucosal thickening of the proximal colon which is commonly seen secondary to portal hypertension but colitis is not excluded. 3. Slight peripancreatic stranding which could reflect mild pancreatitis. Dictated and Authenticated by: Familia Oliver MD. Ordering:BRIANDA Ram MD
--- NOTE | 2024-05-30 04:47 | HPE_ITS ---
Date of service: 05/30/24 Time of Service: 04:47 Assessment and Plan Assessment and plan (1) Sepsis: Start date: 05/30/24 Status: Acute Assessment and plan: This is a 68-year-old lady who has frequent hospitalizations for decompensation admitted today with fever and elevated lactate with elevated procalcitonin as well as source of fever most likely being colitis with patient having chronic chronic disease. She will be placed on IV Levaquin with Flagyl be guided by her allergies with follow-up on cultures and adjust medical therapy accordingly. IV hydration for now but watch closely for fluid overload and advanced clear fluid diet as patient tolerates with recent bout of emesis. She does have problems with nausea chronically. She did not visit the patient will return home to her with the care of her son. She is a full code. Qualifiers: Sepsis acute organ dysfunction status: without acute organ dysfunction Sepsis type: sepsis due to unspecified organism Qualified Code(s): A41.9 - Sepsis, unspecified organism (2) Colitis: Start date: 05/30/24 Status: Acute Assessment and plan: Continue IV Levaquin and Flagyl converted to oral therapy as patient stabilizes. (3) Hyperammonemia: Start date: 05/30/24 Status: Acute Assessment and plan: Increase lactulose to 3 times daily temporarily and follow symptoms. She is only mildly encephalopathic presently. (4) SALCIDO (nonalcoholic steatohepatitis): Assessment and plan: Stable with recurrent encephalopathy with increased ammonia. Continue lactulose as above. (5) Crohn's disease: Assessment and plan: Continue follow-up with GI. Qualifiers: Digestive disease complication type: other complication G astrointestinal tract location: unspecified location Qualified Code(s): K50.918 - Crohn's disease, unspecified, with other complication (6) Type 2 diabetes mellitus: Assessment and plan: Hold outpatient medical therapy and glucometer measurements before meals and at bedtime with short acting insulin coverage. Qualifiers: Diabetes mellitus complication status: without complication Diabetes mellitus superintendent [employer] insulin use: without residential use Qualified Code(s): E11.9 - Type 2 diabetes mellitus without complications (7) Depressive disorder: Assessment and plan: Continue outpatient medical therapy. (8) Anemia: Assessment and plan: Stable currently receiving infusions and monitor as an outpatient. She does not have CKD. She does have probable chronic loss with with history of Crohn's and chronic disease. Qualifiers: Anemia type: iron deficiency Iron deficiency anemia type: chronic blood loss Qualified Code(s): D50.0 - Iron deficiency anemia secondary to blood loss (chronic) History of Present Illness History of Present Illness Chief Complaint: Fever for 3 days with nausea and vomiting acutely Narrative: This is a 68-year-old female patient who is with her disabled and son who is their government employee presenting for 3 days of fever and starting mild cough the day of presentation with the onset nausea and vomiting after having a lobster dinner. She does have a history of Crohn's disease and also has a history of Salcido with an elevated ammonia noted during evaluation and treated with lactulose. Her WBC was not elevated but she did have an elevated procalcitonin and lactate with tachycardia and diffuse fever but no hypotension in fact slight hypertension. After ED evaluation she was thought to have sepsis with source most likely being GI with CT showing some thickening of the intestinal quintana in the proximal colon and no acute lung infiltrates. As stated she does have a history of Crohn's disease. This was thought to be possible colitis acutely. She was began on Levaquin with Flagyl after cultures were obtained and will be on IV hydration. CT scan also showed evidence of pancreatitis and chronic changes of SALCIDO with elevation of her ammonia more than usual, chronically on lactulose. Lipase was normal. Current medical problems are as outlined by ED report in HPI. Patient is a full code. Review of Systems Narrative: 13 point review of systems otherwise unrevealing or stable. Patient does live with her son and disabled . Her son is very attentive. 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 Chronically elevated ammonia level. On lactulose. Liver cirrhosis secondary to SALCIDO Pituitary cyst Hypersomnia GAVE (gastric antral vascular ectasia) Hyperglycemia due to type 2 diabetes mellitus JAYDEN (obstructive sleep apnea) Acquired arteriovenous malformation Atypical angina Biliary dyskinesia Lung nodule Submucosal neoplasm of stomach No-show for appointment Acute hip pain Weakness Generalized pruritus Anemia Bladder spasm Dermoid cyst History of peptic ulcer disease Osteoarthritis Pancreatitis Hypertensive disorder Hepatic encephalopathy Excess skin of eyelid Edema Dyspnea Atrophy of vagina Atrophic vaginitis Actinic keratosis Pituitary adenoma Restless legs Neoplasm of parotid gland Lumbar spondylosis Lesion of esophagus Dyslipidemia Depressive disorder Crohn's disease Chronic low back pain Anxiety Anemia Cirrhosis Type 2 diabetes mellitus SALCIDO (nonalcoholic steatohepatitis) CHF (congestive heart failure) Anasarca Surgical History History of oophorectomy, unilateral History of rotator cuff surgery bilateral History of total knee arthroplasty bilateral History of sleeve gastrectomy History of hysterectomy Family History Brother Cancer Lung Alcohol use disorder 2 older brothers Social History Smoking/Tobacco Use Status: Never Smoking risk assessment performed?: Yes Alcohol Intake: never Drug use: Never Substance use type: does not use Housing: house Current gender identity: female Do you feel safe at home: Yes Do you feel safe in your relationship?: Yes Additional Social history: Lives with Arslan, and son in [place]. Moved from [place] in 2020. Has a dog and 7 pet birds. Meds Allergies and Home Medications Allergies Allergy/AdvReac Type Severity Reaction Status Date / Time Penicillins Allergy Severe Swelling/Ed Verified 05/30/24 01:41 sophie tramadol Allergy Severe Swelling/Ed Verified 05/30/24 01:41 sophie apricot Allergy Intermediate Hives Verified 05/30/24 01:41 ferrous sulfate Allergy Unknown Other (See Verified 05/30/24 01:41 Comment) raspberry Allergy Other (See Verified 05/30/24 01:41 Comment) vancomycin AdvReac Intermediate Other (See Verified 05/30/24 06:36 Comment) Home Medications ?Medication ?Instructions ?Recorded ?Confirmed ?Type metformin 1,000 mg tablet 1,000 mg PO BID 11/09/22 05/30/24 History ropinirole 2 mg tablet 2 mg PO BID 11/09/22 05/30/24 History pantoprazole 40 mg tablet,delayed 40 mg PO BID 12/15/22 05/30/24 History release oxycodone 5 mg tablet 5 mg PO Q6H PRN 01/23/23 05/30/24 History nystatin 100,000 unit/gram topical 6,000,000 unit topical TID #60 02/05/23 05/30/24 Rx powder grams lactulose 10 gram/15 mL oral 30 g PO BID 06/26/23 05/30/24 History solution polyethylene glycol 3350 17 gram 17 g PO DAILY PRN PRN Constipation 07/01/23 05/30/24 Rx oral powder packet #0 ea oxybutynin chloride 5 mg tablet 5 mg PO BID #60 tabs 11/13/23 05/30/24 Rx semaglutide 0.25 mg or 0.5 mg (2 0.25 mg subcut QWEEK 12/12/23 05/30/24 History mg/3 mL) subcutaneous pen injector (Ozempic) torsemide 20 mg tablet 40 mg PO DAILY 01/23/24 05/30/24 History fluoxetine 40 mg capsule 40 mg PO DAILY 01/24/24 05/30/24 History cefpodoxime 200 mg tablet 200 mg PO BID #10 tabs 04/16/24 05/30/24 Rx doxepin 10 mg capsule 20 mg (2 x 10 mg) PO QHS #0 caps 04/16/24 05/30/24 Rx ondansetron HCl 4 mg tablet 4 mg PO DAILY PRN 04/16/24 05/30/24 History Exam Narrative Exam Narrative: General: Patient appears older than stated age, morbidly obese, lying in bed with the head at a 45 degree angle breathing comfortably. She is alert and oriented at least to person place partially time. She is no acute distress. HEENT: Normocephalic, eyes with pupils equal and reactive light symmetrically, sclerae anicteric. Oropharynx with slightly dry mucosa and poor dentition. Neck: Supple without JVD. Back: Kyphotic without CVA tenderness. Loss of lordotic curve lumbar spine with decreased range of motion. Lungs: Essentially clear to auscultation percussion with no focalizing rales or rhonchi. No expiratory wheeze. Breast: Exam deferred. Heart: Regular rate and rhythm with 3/6 to 4/6 systolic murmur left sternal border, no gallops or rubs. Abdomen: Obese, soft and slightly tender to palpation with minimal guarding and no rebound. No palpable hepatosplenomegaly. Bowel sounds positive all quadrants. Genitalia/rectal: Exam deferred. Extremities: Obese legs with nonpitting edema, well-healed TKA scars over both knees. Slightly tender to palpation over the pelvic area. No clubbing or cyanosis. Good capillary refill. Skin: Pale, warm and dry. Neuro: Cranial nerves II to XII is intact, no focalizing motor deficits and no tremor. Psych: Patient has flattened affect with depressed mood. Patient wandering conversation is slightly encephalopathic with minimal short-term memory loss and no abnormal thought processes. Remote memory appears grossly intact. Results Imaging Imaging Studies: Exam: CT Chest Without Contrast; Diagnostic Exam date and time: 05/30/2024 2:21 AM Age: 68 years old Clinical indication: Fever and vomiting; Cough and fever; Additional info: Vomiting, cough, fever, generalized abd pain COMPARISON: CT CHEST W 23/01/2024 03:55 FINDINGS: Lungs: No airspace consolidation or ground-glass opacities. Pleural spaces: No pleural effusion or pneumothorax. Heart: Unremarkable. No cardiomegaly. No pericardial effusion. Lymph nodes: Unremarkable. No enlarged lymph nodes. Vasculature: Unremarkable. No aortic aneurysm. Bones/joints: Chronic left clavicular fracture. No acute fracture. Soft tissues: Unremarkable. IMPRESSION: No acute findings. PROCEDURE INFORMATION: Exam: CT Abdomen And Pelvis Without Contrast Exam date and time: 05/30/2024 2:21 AM Age: 68 years old Clinical indication: Fever and vomiting; Cough and fever; Additional info: Vomiting, cough, fever, generalized abd pain COMPARISON: CT ABDOMEN PELVIS W 06/04/2024 13:27 FINDINGS: Liver: Cirrhotic liver morphology with a stable appearance. Gallbladder and biliary ducts: Cholecystectomy. Pancreas: Slight peripancreatic stranding. No ductal dilation. Spleen: Stable splenomegaly. Adrenal glands: Normal. No mass. Kidneys and ureters: Normal. No hydronephrosis. Stomach and bowel: Sleeve gastrectomy. No evidence of bowel obstruction. Mucosal thickening of the proximal colon. Large amount of stool in the distal colon. Appendix: Normal appendix. Intraperitoneal space: Stranding of the mesentery and stable trace perihepatic fluid. No free air. Vasculature: Unremarkable. No abdominal aortic aneurysm. Lymph nodes: Unremarkable. No enlarged lymph nodes. Urinary bladder: Unremarkable as visualized. Reproductive: Hysterectomy. Bones/joints: Stable compression fracture deformity of the superior endplate of L4. No acute fracture. Soft tissues: Subcutaneous edema of the lower abdominal wall. IMPRESSION: 1. Stable cirrhotic liver morphology. 2. Mucosal thickening of the proximal colon which is commonly seen secondary to portal hypertension but colitis is not excluded. 3. Slight peripancreatic stranding which could reflect mild pancreatitis. Labs 05/30/24 01:45 05/30/24 01:45 Labs: Laboratory Results - last 24 hr 05/30/24 05/30/24 05/30/24 01:45 02:00 02:21 WBC 9.57 RBC 3.36 L Hgb 10.0 L Hct 30.8 L MCV 92 MCH 29.8 MCHC 32.5 RDW 13.3 Plt Count 98 L MPV 10.6 Immature Gran % 0.5 Neutrophils % 85.7 Lymphocytes % 3.8 Monocytes % 7.5 Eosinophils % 2.0 Basophils % 0.5 Nucleated RBC % 0.0 Absolute Neutrophils 8.20 H Absolute Lymphocytes 0.36 L Absolute Monocytes 0.72 Absolute Eosinophils 0.19 Absolute Basophils 0.05 RBC Morphology Normal VBG Lactate 1.7 H Sodium 141 Potassium 3.7 Chloride 106 Carbon Dioxide 28.3 Anion Gap 6.7 BUN 15 Creatinine 0.8 Est GFR (CKD-EPI 2020) 80.21 Glucose 193 H Calcium 8.1 L Total Bilirubin 1.58 H AST 21 ALT 25 Alkaline Phosphatase 163 H Ammonia 174 H Total Protein 5.5 L Albumin 2.6 L Lipase 57 Procalcitonin 0.3 Urine Color Dark Yellow Urine Clarity Sl Cloudy Urine pH 8.5 H Ur Specific Nelson 1.020 Urine Protein 30 H Urine Ketones Trace H Urine Blood Negative Urine Nitrite Negative Urine Bilirubin Negative Urine Urobilinogen 4.0 H Ur Leukocyte Esterase Negative Urine RBC 0-2 Urine WBC 5-10 Ur Epithelial Cells Few Urine Crystals Negative Urine Bacteria Rare Urine Casts Negative Urine Mucus Negative Urine Other Rare Renal Ur Culture Indicated? C&S Done As Ordered Urine Glucose Negative Ethyl Alcohol < 3.0 COVID-19 Source Nasopharynx SARS-CoV-2 (PCR) Negative Influenza Type A (PCR) Negative Influenza Type B (PCR) Negative RSV (PCR) Negative Last Vital Signs Temp 37.2 C 05/30/24 03:00 Pulse 101 H 05/30/24 04:01 Resp 32 H 05/30/24 04:01 BP 152/42 H 05/30/24 04:01 Pulse Ox 91 L 05/30/24 03:50 Time Spent Time spent with Patient: >75 minutes Time was spent: preparing to see the patient(eg.review tests), obtaining and/or reviewing separately otained hiistory, ordering medications,tests, procedures, indepentently interpreting results, counseling the patient and care coordination
[2024-05-30] MEDS: metroNIDAZOLE 500 MG/100 ML BAG 100 MG IVPB ×4 (05:07→22:20)
[2024-05-30] MEDS: levoFLOXacin 750 MG/150 ML BAG 100 MG IVPB (05:07)
--- NOTE | 2024-05-30 06:35 | W.PC.ACHO ---
Registration Status: Primary Language: Preferred Language: ED Information & Data Chief Complaint Nausea/Vomit/Diar 05/30/24 02:01 Triage Note Pt arrives with c/o N/V and 05/30/24 01:34 fever. 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 Encephalopathy Liver cirrhosis secondary to SALCIDO Pituitary cyst Hypersomnia GAVE (gastric antral vascular ectasia) Hyperglycemia due to type 2 diabetes mellitus JAYDEN (obstructive sleep apnea) Acquired arteriovenous malformation Atypical angina Biliary dyskinesia Lung nodule Submucosal neoplasm of stomach No-show for appointment Acute hip pain Weakness Generalized pruritus Anemia Bladder spasm Dermoid cyst History of peptic ulcer disease Osteoarthritis Pancreatitis Hypertensive disorder Hepatic encephalopathy Excess skin of eyelid Edema Dyspnea Atrophy of vagina Atrophic vaginitis Actinic keratosis Pituitary adenoma Restless legs Neoplasm of parotid gland Lumbar spondylosis Lesion of esophagus Dyslipidemia Depressive disorder Crohn's disease Chronic low back pain Anxiety Anemia Cirrhosis Type 2 diabetes mellitus SALCIDO (nonalcoholic steatohepatitis) CHF (congestive heart failure) Anasarca (Last Reviewed 05/30/24 @ 04:50 by Devin Carlson) History of oophorectomy, unilateral History of rotator cuff surgery History of total knee arthroplasty History of sleeve gastrectomy History of hysterectomy Most Recent Vital Signs Temperature 37.2 C 05/30/24 03:00 Temperature Source Oral 05/30/24 01:34 Pulse 101 H 05/30/24 04:01 Pulse 106 H 05/30/24 04:01 Respiratory Rate 32 H 05/30/24 04:01 Blood Pressure 152/42 H 05/30/24 04:01 Blood Pressure Mean 73 05/30/24 04:01 Blood Pressure Position Sitting 05/30/24 01:34 Pulse Oximetry 91 L 05/30/24 03:50 Pain Level 4 05/30/24 01:34 Allergies Penicillins Allergy (Severe, Verified 05/30/24 01:41) Swelling/Edema tramadol Allergy (Severe, Verified 05/30/24 01:41) Swelling/Edema apricot Allergy (Intermediate, Verified 05/30/24 01:41) Hives apricots, fruit. ferrous sulfate Allergy (Unknown, Verified 05/30/24 01:41) Other (See Comment) raspberry Allergy (Verified 05/30/24 01:41) Other (See Comment) vancomycin Adverse Reaction (Intermediate, Verified 05/30/24 01:41) Other (See Comment) Active Medications Generic Name Dose Route Start Last Admin Trade Name Yajaira PRN Reason Stop Dose Admin Metronidazole 500 mg in 100 mls @ 100 mls/hr 05/30/24 04:29 05/30/24 05:07 Flagyl IVPB 05/30/24 05:28 100 mls/hr NOW ONE Administration Levofloxacin 750 mg in 150 mls @ 100 mls/hr 05/30/24 04:29 05/30/24 05:07 Levaquin Premixed Bag IVPB 05/30/24 05:58 100 mls/hr NOW ONE Administration IV IV Catheter Type [Right Hand] Saline Lock IV Catheter Gauge [Right Hand] 20 Diagnostics 05/30/24 05/30/24 05/30/24 Range/Units 02:21 02:00 01:45 WBC 9.57 (4.4-10.8) 10^3/uL RBC 3.36 L (3.93-5.22) 10^6/uL Hgb 10.0 L (11.2-15.7) g/dL Hct 30.8 L (36.0-46.0) % MCV 92 (80-95) fL MCH 29.8 (27.0-33.0) pg MCHC 32.5 (32.0-36.0) % RDW 13.3 (11.7-14.6) % Plt Count 98 L (130-400) 10^3/uL MPV 10.6 (8.0-11.0) fL Immature Gran % 0.5 % Neutrophils % 85.7 % Lymphocytes % 3.8 % Monocytes % 7.5 % Eosinophils % 2.0 % Basophils % 0.5 % Nucleated RBC % 0.0 (0.0-0.3) % Absolute Neutrophils 8.20 H (1.2-6.7) 10^3/uL Absolute Lymphocytes 0.36 L (1.2-3.4) 10^3/uL Absolute Monocytes 0.72 (0.1-0.8) 10^3/uL Absolute Eosinophils 0.19 (0.0-0.7) 10^3/uL Absolute Basophils 0.05 (0.0-0.2) 10^3/uL RBC Morphology Normal VBG Lactate 1.7 H (0.6-1.4) mmol/L Sodium 141 (136-145) mmol/L Potassium 3.7 (3.5-5.1) mmol/L Chloride 106 (98-107) mmol/L Carbon Dioxide 28.3 (21.0-32.0) mmol/L Anion Gap 6.7 (3-11) mmol/L BUN 15 (7-18) mg/dL Creatinine 0.8 (0.55-1.02) mg/dL Est GFR (CKD-EPI 2020) 80.21 (mL/min/1.73m2) Glucose 193 H (74-106) mg/dL Calcium 8.1 L (8.5-10.1) mg/dL Total Bilirubin 1.58 H (0.2-1.0) mg/dL AST 21 (15-37) U/L ALT 25 (14-59) U/L Alkaline Phosphatase 163 H (46-116) U/L Ammonia 174 H (11-32) umol/L Total Protein 5.5 L (6.4-8.2) g/dL Albumin 2.6 L (3.4-5.0) g/dL Lipase 57 (16-77) U/L Procalcitonin 0.3 ng/mL Urine Color Dark Yellow (Yellow) Urine Clarity Sl Cloudy (Clear) Urine pH 8.5 H (5-8) Ur Specific [place] 1.020 (1.005-1.025) Urine Protein 30 H (Neg-Trace) mg/dL Urine Ketones Trace H (Negative) mg/dL Urine Blood Negative (Negative) Urine Nitrite Negative (Negative) Urine Bilirubin Negative (Negative) Urine Urobilinogen 4.0 H (Up to 0.2) mg/dL Ur Leukocyte Esterase Negative (Negative) Urine RBC 0-2 (0-2) HPF Urine WBC 5-10 (0-5) HPF Ur Epithelial Cells Few (Negative) HPF Urine Crystals Negative (Negative) HPF Urine Bacteria Rare (Negative) HPF Urine Casts Negative (Negative) LPF Urine Mucus Negative (Negative) Urine Other Rare Renal (Negative) Ur Culture Indicated? C&S Done As Ordered Urine Glucose Negative (Negative) mg/dL Ethyl Alcohol < 3.0 (<10) mg/dL B. divergens/MO-1 PCR Pending Babesia duncani (PCR) Pending Babesia microti DNA PCR Pending Lyme Disease Antibody Pending COVID-19 Source Nasopharynx SARS-CoV-2 (PCR) Negative (Negative) E.chaffeensis DNA (PCR) Pending E.ewingii/canis DNA PCR Pending E.muris eauclairensis (PCR) Pending Influenza Type A (PCR) Negative (Negative) Influenza Type B (PCR) Negative (Negative) RSV (PCR) Negative (Negative) A. phagocytophilum (PCR) Pending Blood B. miyamotoi (PCR) Pending 05/30/24 02:21 Urine Culture - Pending Urine - Clean Catch 05/30/24 02:00 Blood Culture - Pending Blood 05/30/24 01:45 Blood Culture - Pending Blood Intake and Output - 24 Hour Total 05/30/24 01:23 thru 05/30/24 03:00 Intake Total 600 Balance 600 Weight 102 kg Intake: IV 600 Falls Risk Assessment History of Falls No History 05/30/24 01:38 Fall Total Score 0 05/30/24 01:38 Level of Risk Standard/Low Risk 05/30/24 01:38 Problems (Last Reviewed 05/30/24 @ 04:50 by Devin Carlson) Hyperammonemia (Acute) Colitis (Acute) Sepsis (Acute) v v v v v v v v v Sending and/or Receiving Nurses: Please use comment section below to note any information pertinent to the patient hand-off not included above. Information / Comments: Pt arrived to ED via AMS. Pt presented to ED with temp of 38.8 C and is (-)flu/covid, after receiving 1gm tylenol IV pt is currently afebrile. Experiencing brain fog and dizziness but is A&O x4. Gait is unsteady. Pt is continent of bowel and bladder. Pt has two IVS, one in each upper extremity per report. Heart NSR with one prolonged QT noted. Report received from: Gama Mcfarlane RN
[2024-05-30] MEDS: Normal Saline 1,000 ML 125 ML IV ×2 (06:51→17:38)
[2024-05-30] MEDS: Nystatin POWDER 15 GM JAR TP ×3 (09:40→20:52)
[2024-05-30] MEDS: Normal Saline Flush 10 ML SYR IVP (09:40)
[2024-05-30] MEDS: Lactulose 20 GM/30 ML CUP 30 GM PO ×3 (09:40→20:36)
[2024-05-30] MEDS: Insulin Aspart 300 UNITS/3 ML PEN SC ×2 (09:40→13:53)
[2024-05-30] MEDS: Oxybutynin 5 MG TAB PO ×2 (09:40→20:36)
[2024-05-30] MEDS: Pantoprazole 40 MG TABCR PO ×2 (09:40→20:37)
[2024-05-30] MEDS: Enoxaparin 40 MG/0.4 ML SYR SC (09:40)
[2024-05-30] MEDS: rOPINIRole 1 MG TAB 2 MG PO ×2 (09:41→20:36)
--- NOTE | 2024-05-30 10:46 | PDOC.CMIN ---
Date of service: 05/30/24 Time of Service: 10:47 Care Management Initial Assmt Initial Assessment Reason for Hospitalization: sepsis Functional Status/Living Situation Patient Presentation: Re was lying in bed dozing when CM met with her. She was able to wake up and engage well with CM, well known to her from many hospitalizations. Re was able to share some of the struggles she has had dealing with family dynamics and situations. She commented that at times she feels like she does not know what to do. In conversation though, Re was able to identify several steps she has taken to address some of her concerns and make positive changes. Her Alexis has many medical issues, as does Re, and caring for each other can be challenging. They have a son who is unable to work, but who is very helpful at home. Re was admitted with sepsis and an ammonia level of 174 from [facility]. She was a little vague at the beginning of the conversation but, when fully awake, appeared to be back to her baseline. She remains fatigued but is feeling a bit better today. Town of Residence: [place] Resides with: Spouse (lives with Alexis and son Don) Significant Other/Family: Local Natural Supports: family Employment Status: Retired Instrumental Activities of Daily Living (ADLs): Independent Medications Medication Management: No Issues/Barriers identified Physical Functioning/Mobility Assistive Device: walker Advance Directives Advance Directives: Do you have an Advance Directive: N 09/23/23 16:39 AD On File at [facility]: N 09/23/23 16:39 Date Asked 04/12/24 04/12/24 21:02 AD Date Reviewed COLST On File at [facility] COLST Date Scanned Code Status Resuscitation Status Full Code Insurance Coverage/Financial Issues Insurance: [facility] Medicare Replacement Care Team Visit Care Team Role Provider Type Jefe Coffey Primary Care Provider NON-[facility] STAFF PHYSICIAN Yo Lopez DO Emergency Provider [facility] STAFF PHYSICIAN Devin Carlson Admit Provider NON-[facility] STAFF PHYSICIAN Attending Provider Discharge Potential Discharge Needs: PCP F/U Appt Anticipated Barriers to Discharge: Medical Status Patient/Family Education Needs: Review discharge instructions, discuss Ask Me Three Transportation: Private vehicle Plan: Re will likely be discharged home, possibly with new home health services, when medically stable. She will follow up with her PCP and plan of care and transport with her family. CM will follow and continue to assess for discharge needs. 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 Chronically elevated ammonia level. On lactulose. Liver cirrhosis secondary to SALCIDO Pituitary cyst Hypersomnia GAVE (gastric antral vascular ectasia) Hyperglycemia due to type 2 diabetes mellitus JAYDEN (obstructive sleep apnea) Acquired arteriovenous malformation Atypical angina Biliary dyskinesia Lung nodule Submucosal neoplasm of stomach No-show for appointment Acute hip pain Weakness Generalized pruritus Anemia Bladder spasm Dermoid cyst History of peptic ulcer disease Osteoarthritis Pancreatitis Hypertensive disorder Hepatic encephalopathy Excess skin of eyelid Edema Dyspnea Atrophy of vagina Atrophic vaginitis Actinic keratosis Pituitary adenoma Restless legs Neoplasm of parotid gland Lumbar spondylosis Lesion of esophagus Dyslipidemia Depressive disorder Crohn's disease Chronic low back pain Anxiety Anemia Cirrhosis Type 2 diabetes mellitus SALCIDO (nonalcoholic steatohepatitis) CHF (congestive heart failure) Anasarca Surgical History History of oophorectomy, unilateral History of rotator cuff surgery bilateral History of total knee arthroplasty bilateral History of sleeve gastrectomy History of hysterectomy Family History Brother Cancer Lung Alcohol use disorder 2 older brothers Social History Smoking/Tobacco Use Status: Never Smoking risk assessment performed?: Yes Alcohol Intake: never Drug use: Never Substance use type: does not use Housing: house Current gender identity: female Do you feel safe at home: Yes Do you feel safe in your relationship?: Yes Additional Social history: Lives with Arslan, and son in [place]. Moved from [place] in 2020. Has a dog and 7 pet birds. SDOH(Care Management) Screening Will the Patient Participate in the Screening?: Yes Do you worry about having a steady place to live?: yes In the past 12 months, have you had to go without electric, gas, oil or water in your home?: no Have you or anyone in your house had to go without enough food to eat?: no Has lack of transportation kept you from medical appointments or from doing things needed for daily living?: no Has anyone in your support network made you feel unsafe for any reason?: no Health Related Social Needs Health related social needs: housing instability, housed, with risk of homelessness(Z59.811)
[2024-05-30] MEDS: FLUoxetine 20 MG CAP 40 MG PO (11:07)
[2024-05-30] MEDS: Doxepin 10 MG CAP 20 MG PO (20:36)
[2024-05-31] MEDS: metroNIDAZOLE 500 MG/100 ML BAG 100 MG IVPB ×4 (04:00→22:57)
[2024-05-31] MEDS: Normal Saline 1,000 ML 125 ML IV (04:00)
[2024-05-31 04:11] VITALS: BP 141/48; PULSE 76; RESP 15; TEMP 36.5; O2SAT 97
[2024-05-31] MEDS: levoFLOXacin 750 MG/150 ML BAG 100 MG IVPB (05:47)
[2024-05-31 06:42] LABS: HCT 28.3 % (36.0-46.0); HGB 9.1 g/dL (11.2-15.7); MCHC 32.2 % (32.0-36.0); MCV 93 fL (80-95); MPV 10.4 fL (8.0-11.0); RBC 3.03 10^6/uL (3.93-5.22); RDW 13.4 % (11.7-14.6); RDW-SD 46.4 fL; WBC 4.15 10^3/uL (4.4-10.8)
[2024-05-31 06:47] LABS: Platelet Count 78 10^3/uL (130-400)
[2024-05-31 06:49] LABS: INR 1.3 (0.9-1.1); Prothrombin Time 12.7 sec (9.1-11.1)
[2024-05-31 07:03] LABS: ALT 21 U/L (14-59); AST 32 U/L (15-37); Albumin 2.2 g/dL (3.4-5.0); Alkaline Phosphatase 153 U/L (46-116); Anion Gap 5.6 mmol/L (3-11); BUN 7 mg/dL (7-18); Bilirubin, Total 0.91 mg/dL (0.2-1.0); CO2 27.4 mmol/L (21.0-32.0); CREATININE 0.7 mg/dL (0.55-1.02); Chloride 110 mmol/L (98-107); Estimated GFR 94.15 (mL/min/1.73m2); Glucose 204 mg/dL (74-106); Magnesium 1.7 mg/dL (1.8-2.4); Potassium 3.2 mmol/L (3.5-5.1); Sodium 143 mmol/L (136-145); Total Protein 4.9 g/dL (6.4-8.2)
[2024-05-31 07:33] LABS: Bilirubin, Direct 0.4 mg/dL (0.0-0.2)
[2024-05-31] MEDS: Lactulose 20 GM/30 ML CUP 30 GM PO ×3 (07:49→21:15)
[2024-05-31] MEDS: Pantoprazole 40 MG TABCR PO ×2 (07:50→21:14)
[2024-05-31] MEDS: FLUoxetine 20 MG CAP 40 MG PO (07:50)
[2024-05-31] MEDS: Torsemide 20 MG TAB 40 MG PO (07:50)
[2024-05-31] MEDS: Oxybutynin 5 MG TAB PO ×2 (07:51→21:14)
[2024-05-31] MEDS: Enoxaparin 40 MG/0.4 ML SYR SC (07:51)
[2024-05-31 07:59] VITALS: BP 155/51; PULSE 77; RESP 17; TEMP 36.9; O2SAT 98
[2024-05-31] MEDS: Nystatin POWDER 15 GM JAR TP ×3 (09:00→21:16)
[2024-05-31] MEDS: Normal Saline Flush 10 ML SYR IVP ×2 (09:00→21:16)
--- NOTE | 2024-05-31 10:30 | W.PM.PROGNOT ---
Date of Service Date of service: 05/31/24 Time of Service: 10:30 Assessment and Plan Assessment and plan (1) Sepsis: Status: Acute Assessment and plan: source thought to be colitis based on CT report, was placed on levaquin and flagyl day 2 hemodynamically stable. Qualifiers: Sepsis acute organ dysfunction status: without acute organ dysfunction Sepsis type: sepsis due to unspecified organism Qualified Code(s): A41.9 - Sepsis, unspecified organism (2) Colitis: Status: Acute Assessment and plan: Continue IV Levaquin and Flagyl converted to oral therapy as patient stabilizes. (3) Hyperammonemia: Status: Acute Assessment and plan: resolving and at baseline Increase lactulose to 3 times daily temporarily and follow symptoms. She is only mildly encephalopathic presently. (4) SALCIDO (nonalcoholic steatohepatitis): Assessment and plan: Stable with recurrent encephalopathy with increased ammonia. Continue lactulose as above. (5) Crohn's disease: Assessment and plan: Continue follow-up with GI. Qualifiers: Digestive disease complication type: other complication Gastrointestinal tract location: unspecified location Qualified Code(s): K50.918 - Crohn's disease, unspecified, with other complication (6) Type 2 diabetes mellitus: Assessment and plan: Hold outpatient medical therapy and glucometer measurements before meals and at bedtime with short acting insulin coverage. Qualifiers: Diabetes mellitus complication status: without complication Diabetes mellitus prison insulin use: without termite exterminator helper use Qualified Code(s): E11.9 - Type 2 diabetes mellitus without complications (7) Depressive disorder: Assessment and plan: Continue outpatient medical therapy. (8) Anemia: Assessment and plan: Stable currently receiving infusions and monitor as an outpatient. She does not have CKD. She does have probable chronic loss with with history of Crohn's and chronic disease. discussed with Dr Torres Qualifiers: Anemia type: iron deficiency Iron deficiency anemia type: chronic blood loss Qualified Code(s): D50.0 - Iron deficiency anemia secondary to blood loss (chronic) Subjective Subjective Patient reports: no new complaints, tolerating liquids well, tolerating a regular diet and afebrile; denies shortness of breath Objective Last Vital Signs Temp 36.9 C 05/31/24 07:59 Pulse 77 05/31/24 07:59 Resp 17 05/31/24 07:59 BP 155/51 H 05/31/24 07:59 Pulse Ox 98 07/28/24 07:59 Laboratory Results - last 24 hr 05/31/24 06:22 WBC 4.15 L RBC 3.03 L Hgb 9.1 L Hct 28.3 L MCV 93 MCH 30.0 MCHC 32.2 RDW 13.4 Plt Count 78 L MPV 10.4 PT 12.7 H INR 1.3 H Sodium 143 Potassium 3.2 L Chloride 110 H Carbon Dioxide 27.4 Anion Gap 5.6 BUN 7 Creatinine 0.7 Est GFR (CKD-EPI 2020) 94.15 Glucose 204 H Calcium 8.0 L Magnesium 1.7 L Total Bilirubin 0.91 Conjugated Bilirubin 0.4 H AST 32 ALT 21 Alkaline Phosphatase 153 H Total Protein 4.9 L Albumin 2.2 L Time Spent with Patient Time Spent with Patient: 35-49 minutes Time was spent: preparing to see the patient(eg.review tests), obtaining and/or reviewing separately otained hiistory, ordering medications,tests, procedures, indepentently interpreting results and counseling the patient
[2024-05-31] MEDS: Potassium Chloride 20 MEQ TABCR PO ×2 (11:14→16:32)
[2024-05-31] MEDS: MAGNESIUM SULFATE 1 GM/100 ML BAG IVINF (11:14)
[2024-05-31] MEDS: rOPINIRole 1 MG TAB 2 MG PO ×2 (11:14→21:15)
[2024-05-31] MEDS: Insulin Aspart 300 UNITS/3 ML PEN SC ×3 (11:15→17:08)
[2024-05-31 12:29] VITALS: BP 149/61; PULSE 77; RESP 17; TEMP 36.6; O2SAT 99
[2024-05-31 16:02] VITALS: BP 142/43; PULSE 71; RESP 17; TEMP 36.7; O2SAT 97
[2024-05-31 20:02] VITALS: BP 156/53; PULSE 70; RESP 18; TEMP 37; O2SAT 99
[2024-05-31] MEDS: Doxepin 10 MG CAP 20 MG PO (21:15)
[2024-05-31] MEDS: Ondansetron O.D.T. 4 MG TABEF PO (22:57)
[2024-05-31 23:04] VITALS: BP 130/43; PULSE 87; RESP 16; TEMP 36.6; O2SAT 98
[2024-06-01] MEDS: Acetaminophen 325 MG TAB PO ×2 (00:54→06:04)
[2024-06-01] MEDS: oxyCODONE 5 MG TAB PO ×2 (02:38→23:29)
[2024-06-01 02:42] VITALS: BP 123/43; PULSE 73; RESP 14; TEMP 36.3; O2SAT 98
[2024-06-01] MEDS: metroNIDAZOLE 500 MG/100 ML BAG 100 MG IVPB ×4 (04:32→23:29)
[2024-06-01] MEDS: Normal Saline Flush 10 ML SYR IVP ×3 (04:32→19:51)
[2024-06-01] MEDS: levoFLOXacin 750 MG/150 ML BAG 100 MG IVPB (05:49)
[2024-06-01] MEDS: Lactulose 20 GM/30 ML CUP 30 GM PO ×3 (07:22→20:15)
[2024-06-01] MEDS: rOPINIRole 1 MG TAB 2 MG PO ×2 (07:23→19:51)
[2024-06-01] MEDS: Pantoprazole 40 MG TABCR PO ×2 (07:23→19:51)
[2024-06-01] MEDS: Potassium Chloride 20 MEQ TABCR PO ×3 (07:23→18:12)
[2024-06-01] MEDS: FLUoxetine 20 MG CAP 40 MG PO (07:24)
[2024-06-01] MEDS: Oxybutynin 5 MG TAB PO ×2 (07:24→19:51)
[2024-06-01] MEDS: Torsemide 20 MG TAB 40 MG PO (07:24)
[2024-06-01 08:06] VITALS: BP 113/41; PULSE 73; RESP 17; TEMP 36.3; O2SAT 95
[2024-06-01] MEDS: Insulin Aspart 300 UNITS/3 ML PEN SC ×3 (08:43→17:21)
[2024-06-01] MEDS: Enoxaparin 40 MG/0.4 ML SYR SC (08:43)
[2024-06-01] MEDS: Nystatin POWDER 15 GM JAR TP ×3 (09:21→19:51)
--- NOTE | 2024-06-01 10:22 | PDOC.CMDIS ---
Date of service: 06/01/24 Time of Service: 10:22 Care Management Discharge SDOH Health Related Social Needs: Health related social needs risk of homeless Health related social needs: housing instability, housed, with risk of homelessness(Z59.811)
[2024-06-01 11:05] LABS: Anion Gap 8.1 mmol/L (3-11); BUN 11 mg/dL (7-18); CO2 32.9 mmol/L (21.0-32.0); CREATININE 1.2 mg/dL (0.55-1.02); Calcium 8.3 mg/dL (8.5-10.1); Chloride 106 mmol/L (98-107); Estimated GFR 49.31 (mL/min/1.73m2); Glucose 236 mg/dL (74-106); Magnesium 1.5 mg/dL (1.8-2.4); Sodium 147 mmol/L (136-145)
[2024-06-01 11:47] VITALS: BP 125/49; PULSE 77; RESP 18; TEMP 36.6; O2SAT 99
[2024-06-01] MEDS: MAGNESIUM SULFATE 2 GM/50 ML BAG IVINF (14:15)
[2024-06-01] MEDS: Potassium Chloride 20 MEQ TABCR 40 MEQ PO (14:15)
--- NOTE | 2024-06-01 14:26 | PGE_ITS ---
Date of Service Date of service: 06/01/24 Time of Service: 14:27 Assessment and Plan Assessment and plan (1) Sepsis: Status: Acute Assessment and plan: source thought to be colitis based on CT report, was placed on levaquin and flagyl day 3 hemodynamically stable. Qualifiers: Sepsis type: sepsis due to unspecified organism Sepsis acute organ dysfunction status: without acute organ dysfunction Qualified Code(s): A41.9 - Sepsis, unspecified organism (2) Colitis: Status: Acute Assessment and plan: Continue oral Levaquin and oral Flagyl convert to oral prior to d/c (3) Hyperammonemia: Status: Acute Assessment and plan: Symptoms are resolving and at baseline Continue lactulose to 3 times daily temporarily resume home regimen on d/c (4) SALCIDO (nonalcoholic steatohepatitis): Assessment and plan: normal AST and ALT and as above. (5) Crohn's disease: Assessment and plan: Follow-up with GI as per MANAGER PHILOSOPHY. Qualifiers: Gastrointestinal tract location: unspecified location Digestive disease complication type: other complication Qualified Code(s): K50.918 - Crohn's disease, unspecified, with other complication (6) Type 2 diabetes mellitus: Assessment and plan: Gluc AC and HS with short acting insulin coverage. Resume home regimen on d/c Qualifiers: Diabetes mellitus supervisor intermediates insulin use: without supervisor intermediates use Diabetes mellitus complication status: without complication Qualified Code(s): E11.9 - Type 2 diabetes mellitus without complications (7) Depressive disorder: Assessment and plan: Continue outpatient medical therapy. (8) Anemia: Assessment and plan: Stable on iron infusions. She does have probable chronic loss with with history of Crohn's and chronic disease. Qualifiers: Anemia type: iron deficiency Iron deficiency anemia type: chronic blood loss Qualified Code(s): D50.0 - Iron deficiency anemia secondary to blood loss (chronic) (9) ANTHONY (acute kidney injury): Status: Acute Assessment and plan: Cr up to 1.2 from 0.7 IVF Repeat BMP hold torsemide (10) Hypernatremia: Status: Acute Assessment and plan: Na 147 IVF in progress (11) Hypokalemia: Status: Resolved Assessment and plan: Supplementation given Repeat BMP (12) Hypomagnesemia: Status: Resolved Assessment and plan: Supplementation in progress repeat Mg level Discussed with Dr. Stranathan Subjective Subjective Patient reports: no new complaints, feels better, tolerating liquids well, tolerating a regular diet, voiding w/o difficulty, flatus, bowel movement and diarrhea; denies nausea, vomiting, shortness of breath or fever Exam Narrative Exam Narrative: Neuro:alert and oriented to self, person, place time and situation. No neurological focal deficit Resp:Clear lung bilaterally Cardio: regular rhythm, S1, S2, no murmur GI: Abdomen is not distended, soft and non tender, bowel sounds are present : Negative Costovertebral angle tenderness, no bladder distension Back/spine/Pelvis: No back tenderness, normal alignment Integumentary: No skin lesions or rash Extremities: strength 5/5 to bilateral lower and upper extremities Psych: RASS 0, congruent mood and normal affect. Objective Last Vital Signs Temp 36.6 C 06/01/24 11:47 Pulse 77 06/01/24 11:47 Resp 18 06/01/24 11:47 BP 125/49 L 06/01/24 11:47 Pulse Ox 99 06/01/24 11:47 Laboratory Results - last 24 hr 05/30/24 06/01/24 01:45 10:28 Sodium 147 H Potassium 3.0 L Chloride 106 Carbon Dioxide 32.9 H Anion Gap 8.1 BUN 11 Creatinine 1.2 H Est GFR (CKD-EPI 2020) 49.31 Glucose 236 H Calcium 8.3 L Magnesium 1.5 L Lyme Disease Antibody Negative Time Spent with Patient Time Spent with Patient: >50 minutes Time was spent: preparing to see the patient(eg.review tests), obtaining and/or reviewing separately otained hiistory, ordering medications,tests, procedures, referring, communicating with other health primary care pediatrician, indepentently interpreting results, counseling the patient and care coordination
--- NOTE | 2024-06-01 14:41 | PHA.REVIEW2 ---
Pharmacy Admission Review Admission Clinical Review Admission Pharmacy Review: Hyperammonemia (Acute) Colitis (Acute) Sepsis (Acute) Penicillins Allergy (Severe, Verified 05/30/24 01:41) Swelling/Edema tramadol Allergy (Severe, Verified 05/30/24 01:41) Swelling/Edema apricot Allergy (Intermediate, Verified 05/30/24 01:41) Hives ferrous sulfate Allergy (Unknown, Verified 05/30/24 01:41) Other (See Comment) raspberry Allergy (Verified 05/30/24 01:41) Other (See Comment) vancomycin Adverse Reaction (Intermediate, Verified 05/30/24 06:36) Other (See Comment) Resuscitation Status Full Code Height 5 ft 1 in Weight 94.1 kg Pharmacy Admission Review Renal Dosing Renal Dosing: BUN 11 mg/dL (7-18) 06/01/24 10:28 Creatinine 1.2 mg/dL (0.55-1.02) H 06/01/24 10:28 Medications needing adjustments: Reviewed (CrCl 46.92 mL/min, SCr increased from 0.7) List of meds needing interventions: Current medications are okay Anticoagulation Anticoagulation: Hgb 9.1 g/dL (11.2-15.7) L 05/31/24 06:22 Hct 28.3 % (36.0-46.0) L 05/31/24 06:22 Plt Count 78 10^3/uL (130-400) L 05/31/24 06:22 INR 1.3 (0.9-1.1) H 05/31/24 06:22 Creatinine 1.2 mg/dL (0.55-1.02) H 06/01/24 10:28 DVT Prophylaxis: Reviewed Medications: Enoxaparin (40mg daily) Opiate Usage Evaluate Pain Scale/Pains Meds: Reviewed (PRN oxycodone - 1 dose given so far) Scheduled Bowel Reg ordered if on Opiates?: No (PRN docusate/Miralax) Relevant Labs Relevant Labs: Sodium 147 mmol/L (136-145) H 06/01/24 10:28 Potassium 3.0 mmol/L (3.5-5.1) L 06/01/24 10:28 Chloride 106 mmol/L (98-107) 06/01/24 10:28 Magnesium 1.5 mg/dL (1.8-2.4) L 06/01/24 10:28 Electrolytes, C-Reactive P, ESR: Reviewed (Na 147, K 3, Mg 1.5 - repleting with PO/IV potassium and IV magnesium) DM Control DM Control: Glucose 236 mg/dL (74-106) H 06/01/24 10:28 Finger Stick Blood Glucose 271 1138 Finger Stick Blood Glucose 271 1138 Finger Stick Blood Glucose 160 0757 Finger Stick Blood Glucose 160 0757 DM Control: Reviewed Insulin Dosing, Diabetic Medication: Has order for SS insulin Cardiac Review Cardiac Review: Blood Pressure 125/49 1147 Blood Pressure 113/41 0806 BP, HR, EF%: Intervened (HR WNL) QTc Review QTc: Reviewed (462 from 04/12/24 - most recent EKG on file) IV to PO Switch IV Medications: Reviewed (levofloxacin and metronidazole) Home Meds Home Med List reviewed: Reviewed Relevent Home Meds Not ordered & why?: metformin (on hold) and ozempic (weekly) Current Meds Current Medication Order Review: Reviewed Pharmacy Antibiotic Review Relevant Labs: WBC 4.15 10^3/uL (4.4-10.8) L 05/31/24 06:22 Procalcitonin 0.3 ng/mL 05/30/24 01:45 Temperature 36.6 C Temperature 36.3 C Microbiology 05/30/24 02:21 Urine Culture - Final Urine - Clean Catch Gram Positive Kailyn,Mixed Gram Negative Chan 05/30/24 02:00 Blood Culture - Preliminary Blood NO GROWTH 48 HOURS 05/30/24 01:45 Blood Culture - Preliminary Blood NO GROWTH 48 HOURS Pharmacy Antibiotic Activity: C/S review and Reviewed, no change Comments: Patient is on levofloxacin and metronidazole IV, day 3, for sepsis and colitis. Urine culture positive.
[2024-06-01 15:14] VITALS: BP 124/49; PULSE 73; RESP 17; TEMP 36.3; O2SAT 98
[2024-06-01] MEDS: Lactated Ringers 1,000 ML 100 ML IV (15:56)
[2024-06-01] MEDS: POTASSIUM CHLORIDE 20 MEQ/100 ML BAG 50 MEQ IVINF ×2 (15:57→18:09)
--- NOTE | 2024-06-01 17:25 | PDOC.CMPRO ---
Date of service: 06/01/24 Time of Service: 17:25 Care Management Progress Note Progress Note Text Progress Note Text: Re was sitting up in bed when CM met with her. She appeared to be in good spirits and shared that she thought she would be discharged today. Unfortunately Re's blood work was delayed and when results were available it was determined that both her potassium and magnesium levels had dropped and needed replacement. Re will likely be discharged tomorrow. She reported that she does not need any services at home at this time. She also shared that she and Alexis are planning a trip to visit her sister soon and will stay for about 2 weeks. She is really looking forward to the time away. Discharge Potential Discharge Needs: PCP F/U Appt Anticipated Barriers to Discharge: Medical Status Patient/Family Education Needs: Review discharge instructions, discuss Ask Me Three Transportation: Private vehicle Plan: Re will likely be discharged home with no new services when medically stable. She will follow up with her PCP and plan of care and transport with her family. CM will follow and continue to assess for discharge needs. SDOH(Care Management) Screening Will the Patient Participate in the Screening?: Yes Do you worry about having a steady place to live?: yes In the past 12 months, have you had to go without electric, gas, oil or water in your home?: no Have you or anyone in your house had to go without enough food to eat?: no Has lack of transportation kept you from medical appointments or from doing things needed for daily living?: no Has anyone in your support network made you feel unsafe for any reason?: no Health Related Social Needs Health related social needs: housing instability, housed, with risk of homelessness(Z59.811)
[2024-06-01] MEDS: Doxepin 10 MG CAP 20 MG PO (19:51)
[2024-06-01 20:05] VITALS: BP 110/36; PULSE 75; RESP 16; TEMP 36.3; O2SAT 98
[2024-06-01 23:32] VITALS: BP 122/41; PULSE 83; RESP 16; TEMP 36.4; O2SAT 94
[2024-06-02 03:17] VITALS: BP 114/36; PULSE 69; RESP 16; TEMP 36.5; O2SAT 94
[2024-06-02] MEDS: metroNIDAZOLE 500 MG/100 ML BAG 100 MG IVPB ×2 (05:02→11:54)
[2024-06-02 05:09] VITALS: BP 119/44; PULSE 73; RESP 14; O2SAT 95
[2024-06-02] MEDS: levoFLOXacin 750 MG/150 ML BAG 100 MG IVPB (06:26)
[2024-06-02 06:51] LABS: Abs Immature Grans 0.01 10^3/uL (0.0-0.06); Absolute Basophil Count 0.05 10^3/uL (0.0-0.2); Absolute Eosinophil Count 0.33 10^3/uL (0.0-0.7); Absolute Lymphocyte Count 1.18 10^3/uL (1.2-3.4); Absolute Monocyte Count 0.45 10^3/uL (0.1-0.8); Absolute Neutrophil Count 2.38 10^3/uL (1.2-6.7); Basophils % 1.1 %; Eosinophils % 7.5 %; HCT 32.4 % (36.0-46.0); HGB 10.4 g/dL (11.2-15.7); Immature Grans % 0.2 %; Lymphocytes % 26.8 %; MCH 29.7 pg (27.0-33.0); MCHC 32.1 % (32.0-36.0); MCV 93 fL (80-95); MPV 10.7 fL (8.0-11.0); Monocytes % 10.2 %; Neutrophils % 54.2 %; Platelet Count 110 10^3/uL (130-400); RDW 13.8 % (11.7-14.6); RDW-SD 46.7 fL
[2024-06-02 07:48] VITALS: BP 107/44; PULSE 74; RESP 18; TEMP 36.3; O2SAT 96
[2024-06-02 07:57] LABS: BUN 12 mg/dL (7-18); Calcium 8.3 mg/dL (8.5-10.1); Chloride 109 mmol/L (98-107); Estimated GFR 61.36 (mL/min/1.73m2); Glucose 153 mg/dL (74-106); Magnesium 1.7 mg/dL (1.8-2.4); Potassium 3.6 mmol/L (3.5-5.1); Sodium 148 mmol/L (136-145)
[2024-06-02] MEDS: Lactulose 20 GM/30 ML CUP 30 GM PO ×2 (08:27→14:37)
[2024-06-02] MEDS: Enoxaparin 40 MG/0.4 ML SYR SC (08:27)
[2024-06-02] MEDS: Pantoprazole 40 MG TABCR PO (08:28)
[2024-06-02] MEDS: Magnesium Oxide 400 MG TAB PO (08:28)
[2024-06-02] MEDS: Normal Saline Flush 10 ML SYR IVP (08:28)
[2024-06-02] MEDS: Potassium Chloride 20 MEQ TABCR PO ×2 (08:28→11:55)
[2024-06-02] MEDS: Oxybutynin 5 MG TAB PO (08:29)
[2024-06-02] MEDS: FLUoxetine 20 MG CAP 40 MG PO (08:29)
[2024-06-02] MEDS: rOPINIRole 1 MG TAB 2 MG PO (08:29)
[2024-06-02] MEDS: Nystatin POWDER 15 GM JAR TP (08:30)
[2024-06-02] MEDS: Insulin Aspart 300 UNITS/3 ML PEN SC ×2 (08:34→11:53)
--- NOTE | 2024-06-02 09:38 | DSE_ITS ---
Date of service: 06/02/24 Time of Service: 09:38 DS: Diagnosis Discharge Diagnosis (1) Sepsis: Status: Acute (2) Colitis: Status: Acute (3) Hyperammonemia: Status: Acute (4) SALCIDO (nonalcoholic steatohepatitis): (5) Crohn's disease: (6) Type 2 diabetes mellitus: (7) Depressive disorder: (8) Anemia: (9) ANTHONY (acute kidney injury): Status: Acute (10) Hypernatremia: Status: Acute (11) Hypokalemia: Status: Resolved (12) Hypomagnesemia: Status: Resolved Discharge Plan Disposition Patient Disposition: Home Condition: Improving Discharge Details Reason For Visit: sepsis, colitis, hyperammonemia, SALCIDO Admit Date/Time: 05/30/24 04:36 Admit Provider: Devin Carlson Attending Provider: Devin Carlson Primary Care Provider: Jefe Coffey Hospital Course Hospital Course: This 60 years old female patient with past medical history of chronic iron deficiency anemia, Crohn's disease, depression, hypertension, hyperlipidemia, SALCIDO, diabetes mellitus on Ozempic, 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 At the time the patient reported mild cough without hemoptysis, abdominal pain and achiness, constipation. She denied dysuria, diarrhea or hematemesis. Workup in the ED showed no leukocytosis with a lactate level of 1.7, procalcitonin of three 0.3, ammonia level of 174. Urinalysis was negative for urine tract infection chest CT was negative for pneumonia but showed proximal colon thickening which may be secondary to colitis as well as some peripancreatic stranding but lipase was normal. In the ED the patient was started on levofloxacin and Flagyl due to her multiple allergies to antibiotics as well as antipyretic to treat the fever. The hospitalist was consulted and the patient was admitted to the medical surgical floor for evaluation and management of colitis, hyperammonemia. During the stay, the patient continued to receive the antibiotic treatment initiated in the ED with improvement of her symptoms.The patient is chronically on lactulose at home and treatment was maintained. Hypomagnesemia and hypokalemia as well as hyponatremia were corrected. The patient home medicine regiment for chronic condition was maintained. Reflex urine culture showed gram-negative rods at less than 10,000 pointing to contamination. The patient will be discharged home without services on short course of oral levofloxacin. The patient will have to follow-up with the primary care provider within 7 days of discharge. The patient will have to complete a basic metabolic panel and a magnesium level with results forwarded to primary care practitioner on Tuesday, June 04, 2024. Discussed with Dr. Gray [place] Meds and New Rx's Prescriptions: New levofloxacin 750 mg tablet 750 mg PO DAILY Qty: 2 0RF potassium chloride 20 mEq tablet extended release 20 meq PO TID Qty: 90 0RF Rx Instructions: with meals magnesium oxide 400 mg magnesium tablet 400 mg PO DAILY Qty: 30 0RF Continued lactulose 10 gram/15 mL solution 30 g PO BID Ozempic 0.25 mg or 0.5 mg (2 mg/3 mL) pen injector 0.25 mg subcut QWEEK Rx Instructions: for 4 weeks oxycodone 5 mg tablet 5 mg PO Q6H PRN metformin 1,000 mg Tablet 1,000 mg PO BID ropinirole 2 mg Tablet 2 mg PO BID nystatin 100,000 unit/gram Powder 6,000,000 unit topical TID Qty: 60 0RF Rx Instructions: apply to reddened skin folds pantoprazole 40 mg Tablet,Delayed Release (Dr/Ec) 40 mg PO BID polyethylene glycol 3350 17 gram Powder In Packet 17 g PO DAILY PRN PRN (Reason: Constipation) Qty: 0 0RF oxybutynin chloride 5 mg Tablet 5 mg PO BID Qty: 60 0RF torsemide 20 mg tablet 40 mg PO DAILY Patient Comments: TAKE TWO TABLETS BY MOUTH EVERY DAY fluoxetine 40 mg capsule 40 mg PO DAILY ondansetron HCl 4 mg tablet 4 mg PO DAILY PRN Patient Comments: TAKE ONE TABLET BY MOUTH EVERY DAY NEEDED FOR NAUSEA doxepin 10 mg capsule 20 mg PO QHS Qty: 0 0RF Patient Comments: 20 mg once a day Discontinued cefpodoxime 200 mg tablet 200 mg PO BID Qty: 10 0RF Rx Instructions: must administer with a meal/food Discharge Instructions Referrals: Jefe Coffey [Primary Care Provider] - (Follow-up with PCP within 7 days of discharge please) Activity:: Activity as Tolerated Equipment/Supplies:: Walker Diet:: heart healthy diabetic/SALCIDO Discharge Orders Discharge Orders: Discharge Order (Routine); Ordered 06/02/24 Ordered By: Lea Giordano Other Ambulatory Orders: Basic Metabolic Panel (Routine) Timeframe: 20240605 Facility: [facility] - Location: Laboratory Outpatient - [facility] Ordered By: Lea Giordano Magnesium (Routine) Timeframe: 20240605 Facility: [facility] - Location: Laboratory Outpatient - [facility] Ordered By: Lea Giordano DS: Summary Time Spent with Patient providing and/or coordinating discharge services: Greater than 30 minutes Status at Discharge Functional status at discharge: uses cane/walker Overall status at discharge: patient is progressing back to baseline Mental Status: mental status grossly normal Speech and Movement: speech and movement normal Mood: congruent mood Affect: normal affect Quality:SDOH Health Related Social Needs: Health related social needs risk of homeless Exam Narrative Exam Narrative: Neuro:alert and oriented to self, person, place time and situation. No neurological focal deficit Resp:Clear lung bilaterally Cardio: regular rhythm, S1, S2, + murmur ( known) GI: Abdomen is not distended, soft and non tender, bowel sounds are present : Negative Costovertebral angle tenderness, no bladder distension Back/spine/Pelvis: No back tenderness, normal alignment Integumentary: No skin lesions or rash Extremities: strength 5/5 to bilateral lower and upper extremities Psych: RASS 0, congruent mood and normal affect. Psych Mental Status: mental status grossly normal Speech and Movement: speech and movement normal Mood: congruent mood Affect: normal affect DS: Data Vitals/I&O Vitals and I&O: Vital Signs Temperature 36.3 C L 06/02/24 07:48 Temperature Source Skin 06/02/24 07:48 Pulse 74 06/02/24 07:48 Pulse Rhythm Regular 06/02/24 08:00 Pulse 90 05/30/24 05:10 Respiratory Rate 18 06/02/24 07:48 Respiratory Effort Normal 06/02/24 08:00 Respiratory Depth Normal 06/02/24 08:00 Respiratory Pattern Normal 06/02/24 08:00 Blood Pressure 107/44 L 06/02/24 07:48 Blood Pressure Mean 62 05/30/24 05:04 Blood Pressure Position Sitting 05/30/24 01:34 Pulse Oximetry 96 06/02/24 07:48 Oxygen Delivery Method Room Air 06/02/24 07:48 Oxygen Flow Rate 0 06/02/24 07:48 Pain Level 0 06/02/24 07:48 Comment low back pain 05/31/24 07:59 Intake & Output 06/01/24 06/01/24 06/02/24 11:59 23:59 11:59 Intake Total 1250 / 2550 1300 / 2550 200 / 200 Output Total 700 / 1900 1200 / 1900 200 / 200 Balance 550 / 650 100 / 650 0 / 0 Weight 94.1 kg Intake: IV 450 / 950 500 / 950 200 / 200 Oral 800 / 1600 800 / 1600 Output: Urine 700 / 1900 1200 / 1900 200 / 200 Other: Urine Color Yellow Light Prema Yellow Urine Appearance Clear Clear Clear Stool Size Small Large Large Stool Characteristics Liquid Liquid Brown Voiding Methods Toilet Toilet Data Completed and Pending Labs on day of discharge: Labs from last 24 hours 06/02/24 06/01/24 06/01/24 06:45 11:35 10:28 WBC 4.40 RBC 3.50 L Hgb 10.4 L Hct 32.4 L MCV 93 MCH 29.7 MCHC 32.1 RDW 13.8 Plt Count 110 L MPV 10.7 Immature Gran % 0.2 Neutrophils % 54.2 Lymphocytes % 26.8 Monocytes % 10.2 Eosinophils % 7.5 Basophils % 1.1 Nucleated RBC % 0.0 Absolute Neutrophils 2.38 Absolute Lymphocytes 1.18 L Absolute Monocytes 0.45 Absolute Eosinophils 0.33 Absolute Basophils 0.05 Sodium 148 H 147 H Potassium 3.6 3.0 L Chloride 109 H 106 Carbon Dioxide 33.0 H 32.9 H Anion Gap 6.0 8.1 BUN 12 11 Creatinine 1.0 1.2 H Est GFR (CKD-EPI 2020) 61.36 49.31 Glucose 153 H 236 H Calcium 8.3 L 8.3 L Magnesium 1.7 L 1.5 L Stool Campylobacter PCR Pending Stool Salmonella PCR Pending Stool Shigella PCR Pending Lyme Disease Antibody Shiga Toxin (PCR) Pending 05/30/24 01:45 WBC RBC Hgb Hct MCV MCH MCHC RDW Plt Count MPV Immature Gran % Neutrophils % Lymphocytes % Monocytes % Eosinophils % Basophils % Nucleated RBC % Absolute Neutrophils Absolute Lymphocytes Absolute Monocytes Absolute Eosinophils Absolute Basophils Sodium Potassium Chloride Carbon Dioxide Anion Gap BUN Creatinine Est GFR (CKD-EPI 2020) Glucose Calcium Magnesium Stool Campylobacter PCR Stool Salmonella PCR Stool Shigella PCR Lyme Disease Antibody Negative Shiga Toxin (PCR) Preliminary micro results at discharge 05/30/24 02:00 Blood Culture - Preliminary Blood NO GROWTH 72 HOURS 05/30/24 01:45 Blood Culture - Preliminary Blood NO GROWTH 72 HOURS PFSH All Active Problems (Updated 06/01/24 @ 15:09 by Lea Giordano APRN) Hypernatremia (Acute) ANTHONY (acute kidney injury) (Acute) Hyperammonemia (Acute) Colitis (Acute) Sepsis (Acute) Thrush, oral (Acute) Bacteremia (Acute) Severe sepsis (Acute) Medical History 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 Chronically elevated ammonia level. On lactulose. Liver cirrhosis secondary to SALCIDO Pituitary cyst Hypersomnia GAVE (gastric antral vascular ectasia) Hyperglycemia due to type 2 diabetes mellitus JAYDEN (obstructive sleep apnea) Acquired arteriovenous malformation Atypical angina Biliary dyskinesia Lung nodule Submucosal neoplasm of stomach No-show for appointment Acute hip pain Weakness Generalized pruritus Anemia Bladder spasm Dermoid cyst History of peptic ulcer disease Osteoarthritis Pancreatitis Hypertensive disorder Hepatic encephalopathy Excess skin of eyelid Edema Dyspnea Atrophy of vagina Atrophic vaginitis Actinic keratosis Pituitary adenoma Restless legs Neoplasm of parotid gland Lumbar spondylosis Lesion of esophagus Dyslipidemia Depressive disorder Crohn's disease Chronic low back pain Anxiety Anemia Cirrhosis Type 2 diabetes mellitus SALCIDO (nonalcoholic steatohepatitis) CHF (congestive heart failure) Anasarca Surgical History History of oophorectomy, unilateral History of rotator cuff surgery bilateral History of total knee arthroplasty bilateral History of sleeve gastrectomy History of hysterectomy Family History Brother Cancer Lung Alcohol use disorder 2 older brothers Social History Smoking/Tobacco Use Status: Never Smoking risk assessment performed?: Yes Alcohol Intake: never Drug use: Never Substance use type: does not use Housing: house Current gender identity: female Do you feel safe at home: Yes Do you feel safe in your relationship?: Yes Additional Social history: Lives with Arslan, and son in [place]. Moved from [place] in 2020. Has a dog and 7 pet birds. Time Spent with Patient Time Spent with Patient: >85 minutes Time was spent: preparing to see the patient(eg.review tests), obtaining and/or reviewing separately otained hiistory, ordering medications,tests, procedures, referring, communicating with other health care worker, indepentently interpreting results, counseling the patient and care coordination
[2024-06-02] MEDS: MAGNESIUM SULFATE 2 GM/50 ML BAG IVINF (10:22)
[2024-06-02] MEDS: SODIUM CHLORIDE 0.45% 1,000 ML 100 ML IV (10:25)
[2024-06-02 11:07] LABS: Campylobacter PCR Negative (Negative); Salmonella PCR Negative (Negative); Shiga Toxin PCR Negative (Negative); Shigella/Enteroinvasive Ecoli Negative (Negative)
[2024-06-02 11:08] VITALS: BP 127/65; PULSE 79; RESP 18; TEMP 36.4; O2SAT 95
[2024-06-02 13:21] LABS: Anion Gap 4.4 mmol/L (3-11); BUN 10 mg/dL (7-18); CO2 32.6 mmol/L (21.0-32.0); Calcium 8.3 mg/dL (8.5-10.1); Chloride 108 mmol/L (98-107); Estimated GFR 61.36 (mL/min/1.73m2); Glucose 206 mg/dL (74-106); Potassium 3.9 mmol/L (3.5-5.1); Sodium 145 mmol/L (136-145)
--- NOTE | 2024-06-02 15:38 | PDOC.CMDIS ---
Date of service: 06/02/24 Time of Service: 15:39 LACE Index Scoring Tool Questions: Length of Stay (in days): 3 Was the patient admitted via the E.D.?: Yes E.D. Visits: 2 Answers: Total Score: 8 Risk of Readmission: Low Risk Care Management Discharge Plan Reason for Hospitalization: Sepsis, Colitis, hyperammonemia, SALCIDO Discharge Plan: Eli will discharge home with new prescriptions and PCP follow up, as well as outpatient labs ordered. She will transport via private vehicle with family. Patient/Family Education Needs: Review discharge instructions, discuss self care needs upon discharge. SDOH Health Related Social Needs: Health related social needs risk of homeless
[2024-06-11 14:31] LABS: Lyme Ab w Rflx to Lyme Confirm Negative (Negative)
== END 2024-06-02 14:47 | disposition home or self-care (01) ==
LOC: ER 04:49 → MS 06:44
PROVIDERS: Nurse Practitioner Acute Care; Admitting Provider Family Medicine; Emergency Provider Student in an Organized Health Care Education/Training Program; PCP Family Medicine; Visit Provider Family Medicine
DX: A41.9 Sepsis, unspecified organism (principal); E72.20 Disorder of urea cycle metabolism, unspecified; K52.9 Noninfective gastroenteritis and colitis, unspecified; K75.81 Nonalcoholic steatohepatitis (NASH); K50.918 Crohn's disease, unspecified, with other complication; E11.9 Type 2 diabetes mellitus without complications; F32.A Depression, unspecified; N17.9 Acute kidney failure, unspecified; E87.0 Hyperosmolality and hypernatremia; E87.6 Hypokalemia; E83.42 Hypomagnesemia; Z79.85 Long-term (current) use of injectable non-insulin antidiabetic drugs; E78.00 Pure hypercholesterolemia, unspecified; K31.819 Angiodysplasia of stomach and duodenum without bleeding; I50.9 Heart failure, unspecified; I11.0 Hypertensive heart disease with heart failure; G47.33 Obstructive sleep apnea (adult) (pediatric); Z98.84 Bariatric surgery status; K76.6 Portal hypertension; K59.00 Constipation, unspecified; R11.2 Nausea with vomiting, unspecified; B37.0 Candidal stomatitis; G93.49 Other encephalopathy; E66.01 Morbid (severe) obesity due to excess calories; Z96.653 Presence of artificial knee joint, bilateral
CPT/HCPCS: 00123; 36415; 71250; 80048; 80053; 80076; 83690; 84145; 85027; 87040; 87505; 87637; 87798; 96361; 96365; 96366; 96367; 96372; 96375; 96376; 99291; J1650; 74176; 80320; 81003; 81015; 82140; 83605; 83735; 85025; 85610; 86618; 87086; 99223; 99232; 99233; 99239; J0131; J1815; J1836; J1956; J2405; J3475; J3480

== ENCOUNTER 2024-06-05 18:42 | Emergency (ER) | payer MEDICARE, SELFPAY ==
[2024-06-05] VITALS (15 sets, daily range): BP systolic 110–132; BP diastolic 28–40; PULSE 74–89; RESP 10–20; TEMP 36.7; O2SAT 93–98
--- NOTE | 2024-06-05 18:30 | RT.EKG_ITS ---
APPROVED REPORT Exam: Resting ECG Reason for Exam: Weakness Patient Location: E HR:75 bpm ECG Measurements Heart Rate 75 AXIS WV 172 P 70 QRSd 93 QRS 47 QT 387 T 53 QTc 433 Conclusion Sinus rhythm...normal P axis, V-rate 60- [address] segment or t wave abnormalities to suggest occlusive mi
[2024-06-05 21:35] LABS: Lactate 1.6 mmol/L (0.6-1.4)
[2024-06-05 21:37] LABS: Abs Immature Grans 0.02 10^3/uL (0.0-0.06); Absolute Basophil Count 0.06 10^3/uL (0.0-0.2); Absolute Eosinophil Count 0.24 10^3/uL (0.0-0.7); Absolute Lymphocyte Count 1.17 10^3/uL (1.2-3.4); Absolute Monocyte Count 0.48 10^3/uL (0.1-0.8); Absolute Neutrophil Count 3.02 10^3/uL (1.2-6.7); Basophils % 1.2 %; Eosinophils % 4.8 %; HCT 32.6 % (36.0-46.0); HGB 10.1 g/dL (11.2-15.7); Immature Grans % 0.4 %; Lymphocytes % 23.4 %; MCH 29.6 pg (27.0-33.0); MCV 96 fL (80-95); MPV 10.3 fL (8.0-11.0); Monocytes % 9.6 %; Neutrophils % 60.6 %; Platelet Count 109 10^3/uL (130-400); RBC 3.41 10^6/uL (3.93-5.22); RDW-SD 48.2 fL; WBC 4.99 10^3/uL (4.4-10.8)
[2024-06-05 21:56] LABS: Ammonia 44 umol/L (11-32)
[2024-06-05 22:04] LABS: ALT 24 U/L (14-59); AST 39 U/L (15-37); Albumin 2.6 g/dL (3.4-5.0); Alkaline Phosphatase 153 U/L (46-116); Anion Gap 2.7 mmol/L (3-11); BUN 18 mg/dL (7-18); Bilirubin, Total 0.86 mg/dL (0.2-1.0); CO2 31.3 mmol/L (21.0-32.0); CREATININE 1.1 mg/dL (0.55-1.02); Calcium 8.9 mg/dL (8.5-10.1); Chloride 106 mmol/L (98-107); Estimated GFR 54.73 (mL/min/1.73m2); Glucose 138 mg/dL (74-106); Lipase 27 U/L (16-77); Magnesium 1.7 mg/dL (1.8-2.4); NT-proBNP 38 pg/mL (<300); Potassium 4.3 mmol/L (3.5-5.1); Sodium 140 mmol/L (136-145); Total Protein 5.6 g/dL (6.4-8.2); Troponin I < 50 ng/L (< or =60)
--- NOTE | 2024-06-05 22:04 | W.ED.GENAD ---
Discharge Plan Disposition Patient Disposition: Home Condition: Good Discharge Details Clinical Impression: Weakness Primary Care Provider: Jefe Coffey ED Provider: Jade Mayorga Home Meds and New Rx's Prescriptions: Continued lactulose 10 gram/15 mL solution 30 g PO BID Ozempic 0.25 mg or 0.5 mg (2 mg/3 mL) pen injector 0.25 mg subcut QWEEK Rx Instructions: for 4 weeks oxycodone 5 mg tablet 5 mg PO Q6H PRN metformin 1,000 mg Tablet 1,000 mg PO BID ropinirole 2 mg Tablet 2 mg PO BID nystatin 100,000 unit/gram Powder 6,000,000 unit topical TID Qty: 60 0RF Rx Instructions: apply to reddened skin folds pantoprazole 40 mg Tablet,Delayed Release (Dr/Ec) 40 mg PO BID polyethylene glycol 3350 17 gram Powder In Packet 17 g PO DAILY PRN PRN (Reason: Constipation) Qty: 0 0RF oxybutynin chloride 5 mg Tablet 5 mg PO BID Qty: 60 0RF torsemide 20 mg tablet 40 mg PO DAILY Patient Comments: TAKE TWO TABLETS BY MOUTH EVERY DAY fluoxetine 40 mg capsule 40 mg PO DAILY ondansetron HCl 4 mg tablet 4 mg PO DAILY PRN Patient Comments: TAKE ONE TABLET BY MOUTH EVERY DAY NEEDED FOR NAUSEA doxepin 10 mg capsule 20 mg PO QHS Qty: 0 0RF Patient Comments: 20 mg once a day levofloxacin 750 mg tablet 750 mg PO DAILY Qty: 2 0RF potassium chloride 20 mEq tablet extended release 20 meq PO TID Qty: 90 0RF Rx Instructions: with meals magnesium oxide 400 mg magnesium tablet 400 mg PO DAILY Qty: 30 0RF Discharge Instructions Instructions: Weakness ED Additional Instructions: Call your primary care doctor on Saturday to schedule an appointment for Saturday or Saturday to followup on your visit here. Return to the emergency department for new or worsening symptoms. Referrals: Jefe Coffey [Primary Care Provider] - [facility] General Mode of arrival: ambulatory. Date/Time Provider Initiated Documentation: 06/05/24 18:54. Limitations to Documentation: no limitations. Information obtained by: patient and old records reviewed. HPI Narrative: 68yo F wtih hx DM, CHF, HLD, chronic pain, hepatic encephalopathy, frequent hospitalizations for decompensation, recent [facility] admission for sepsis discharged on Saturday, presenting for generalized weakness and fatigue. Reports this has been ongoing since hospital discharge, not acutely worse today. Feels generally unwell and tired. Thinks her ammonia might be high again. No fevers, chills, rash, naseua, vomiting, abdominal pain, dysuria, hematuria, chest pain, shortness of breath, URI symptoms, headache, numbness, tingling, focal weakness, or other concerns. She is otherwise in her usual state of health. Related Data Home Medications ?Medication ?Instructions ?Recorded ?Confirmed metformin 1,000 mg tablet 1,000 mg PO BID 11/09/22 06/05/24 ropinirole 2 mg tablet 2 mg PO BID 11/09/22 06/05/24 pantoprazole 40 mg tablet,delayed 40 mg PO BID 12/15/22 06/05/24 release oxycodone 5 mg tablet 5 mg PO Q6H PRN 01/23/23 06/05/24 nystatin 100,000 unit/gram topical 6,000,000 unit topical TID #60 02/05/23 06/05/24 powder grams lactulose 10 gram/15 mL oral 30 g PO BID 06/26/23 06/05/24 solution polyethylene glycol 3350 17 gram 17 g PO DAILY PRN PRN Constipation 07/01/23 06/05/24 oral powder packet #0 ea oxybutynin chloride 5 mg tablet 5 mg PO BID #60 tabs 11/13/23 06/05/24 semaglutide 0.25 mg or 0.5 mg (2 0.25 mg subcut QWEEK 12/12/23 06/05/24 mg/3 mL) subcutaneous pen injector (Ozempic) torsemide 20 mg tablet 40 mg PO DAILY 01/23/24 06/05/24 fluoxetine 40 mg capsule 40 mg PO DAILY 01/24/24 06/05/24 doxepin 10 mg capsule 20 mg (2 x 10 mg) PO QHS #0 caps 04/16/24 06/05/24 ondansetron HCl 4 mg tablet 4 mg PO DAILY PRN 04/16/24 06/05/24 levofloxacin 750 mg tablet 750 mg PO DAILY #2 tabs 06/01/24 06/05/24 magnesium oxide 400 mg PO DAILY #30 tabs 06/02/24 06/05/24 potassium chloride 20 mEq 20 meq PO TID #90 tabs 06/02/24 06/05/24 tablet,extended release Previous Rx's ?Medication ?Instructions ?Recorded nystatin 100,000 unit/gram topical 6,000,000 unit topical TID #60 02/05/23 powder grams polyethylene glycol 3350 17 gram 17 g PO DAILY PRN PRN Constipation 07/01/23 oral powder packet #0 ea oxybutynin chloride 5 mg tablet 5 mg PO BID #60 tabs 11/13/23 doxepin 10 mg capsule 20 mg (2 x 10 mg) PO QHS #0 caps 04/16/24 levofloxacin 750 mg tablet 750 mg PO DAILY #2 tabs 06/01/24 magnesium oxide 400 mg PO DAILY #30 tabs 06/02/24 potassium chloride 20 mEq 20 meq PO TID #90 tabs 06/02/24 tablet,extended release Allergies Allergy/AdvReac Type Severity Reaction Status Date / Time Penicillins Allergy Severe Swelling/Ed Verified 06/05/24 18:59 sophie tramadol Allergy Severe Swelling/Ed Verified 06/05/24 18:59 sophie apricot Allergy Intermediate Hives Verified 06/05/24 18:59 ferrous sulfate Allergy Unknown Other (See Verified 06/05/24 18:59 Comment) raspberry Allergy Other (See Verified 06/05/24 18:59 Comment) vancomycin AdvReac Intermediate Other (See Verified 06/05/24 18:59 Comment) General Stated Complaint: GenMedical CHELA: 3 Review of Systems Narrative: see HPI Exam Narrative Exam Narrative: General: Alert, well nourished, in no acute distress. Head: Normocephalic, atraumatic Neck: Trachea midline, ?Neck supple. ENT: ?MMM.? Cardiac: ?RRR, no murmurs appreciated Resp: No respiratory distress. CTAB. Abd: ?Soft, non-distended, nontender : ?No suprapubic tenderness. No CVA tenderness. Extremities: ?No deformities.? No peripheral edema. No asterixis Neuro: ? GCS 15.? PERRL.? EOMI.? Fluent speech, no dysarthria. Motor- 5/5 strength symmetric bilateral upper and lower extremities Sensation- ?Intact to light touch and symmetric multiple dermatomes including upper and lower extremities Coordination- No dysmetria on finger to nose Reflexes- 2/4 achilles & patellar, no clonus Gait/station: ?Normal stance.? No truncal ataxia. Steady gait with equal normal steps Course Vital Signs Vital signs: Vital Signs Temperature 36.7 C 06/05/24 18:52 Pulse 80 06/05/24 18:52 Respiratory Rate 18 06/05/24 18:52 Blood Pressure 113/40 L 06/05/24 18:52 Pulse Oximetry 97 06/05/24 18:52 Temperature 36.7 C 06/05/24 18:52 Temperature Source Temporal Artery Scan 06/05/24 18:52 Pulse 80 06/05/24 18:52 Respiratory Rate 14 06/05/24 21:32 Respiratory Effort Normal, Non-Labored 06/05/24 21:32 Respiratory Depth Normal 06/05/24 21:32 Respiratory Pattern Normal 06/05/24 21:32 Blood Pressure 113/40 L 06/05/24 18:52 Pulse Oximetry 97 06/05/24 18:52 Oxygen Delivery Method Room Air 06/05/24 18:52 Oxygen Flow Rate 0 06/05/24 18:52 Pain Level 0 06/05/24 21:32 Lab/Test Results Lab/Test Results: Laboratory Tests Range/Units 06/05/24 21:28 WBC (4.4-10.8) 10^3/uL 4.99 RBC (3.93-5.22) 10^6/uL 3.41 L Hgb (11.2-15.7) g/dL 10.1 L Hct (36.0-46.0) % 32.6 L MCV (80-95) fL 96 H MCH (27.0-33.0) pg 29.6 MCHC (32.0-36.0) % 31.0 L RDW (11.7-14.6) % 15.0 H Plt Count (130-400) 10^3/uL 109 L MPV (8.0-11.0) fL 10.3 Immature Gran % % 0.4 Neutrophils % % 60.6 Lymphocytes % % 23.4 Monocytes % % 9.6 Eosinophils % % 4.8 Basophils % % 1.2 Nucleated RBC % (0.0-0.3) % 0.0 Absolute Neutrophils (1.2-6.7) 10^3/uL 3.02 Absolute Lymphocytes (1.2-3.4) 10^3/uL 1.17 L Absolute Monocytes (0.1-0.8) 10^3/uL 0.48 Absolute Eosinophils (0.0-0.7) 10^3/uL 0.24 Absolute Basophils (0.0-0.2) 10^3/uL 0.06 VBG Lactate (0.6-1.4) mmol/L 1.6 H Ammonia (11-32) umol/L 44 H Medical Decision Making 68yo F wtih hx DM, CHF, HLD, chronic pain, hepatic encephalopathy, frequent hospitalizations for decompensation, recent [facility] admission for sepsis discharged on Saturday, presenting for generalized weakness and fatigue since hospital discharge . No other specific symptoms. No falls. Vital signs reassuring on arrival. Not septic. Benign physical exam, appears chronically unwell but no focal weakness today and normal neurologic exam. No indication for imaging. EKG NSR, appropriate intervals, no ST segment or T wave abnormalities to suggest occlusive VT. Labs reviewed as below, CBC with no leukocytosis, anemia with no significant change from 06/02 on hospital discharge, CMP with reassuring electrolytes and Cr, normal bilirubin, no concerning changes from discharge. Lactate reassuring. Mag slightly low at 1.7, IV replacement given. Ammonia reassuring at 44 and improved from hospital admission. Troponin and BNP normal, would not further pursue ACS. Trial ambulation and tolerated well, able to ambulate steadily independently. Reports feeling better after the magnesium and would like to go home which is reasonable. Discharged home; discharge instructions and return precautions were reviewed with patient who verbalized understanding. All questions were answered and she is in full agreement with the plan. Medical Records Medical records reviewed: Yes I reviewed the patient's medical records. Lab Data Lab results reviewed: Yes I reviewed the patient's lab results. Labs: Laboratory Tests Range/Units 06/05/24 21:28 WBC (4.4-10.8) 10^3/uL 4.99 RBC (3.93-5.22) 10^6/uL 3.41 L Hgb (11.2-15.7) g/dL 10.1 L Hct (36.0-46.0) % 32.6 L MCV (80-95) fL 96 H MCH (27.0-33.0) pg 29.6 MCHC (32.0-36.0) % 31.0 L RDW (11.7-14.6) % 15.0 H Plt Count (130-400) 10^3/uL 109 L MPV (8.0-11.0) fL 10.3 Immature Gran % % 0.4 Neutrophils % % 60.6 Lymphocytes % % 23.4 Monocytes % % 9.6 Eosinophils % % 4.8 Basophils % % 1.2 Nucleated RBC % (0.0-0.3) % 0.0 Absolute Neutrophils (1.2-6.7) 10^3/uL 3.02 Absolute Lymphocytes (1.2-3.4) 10^3/uL 1.17 L Absolute Monocytes (0.1-0.8) 10^3/uL 0.48 Absolute Eosinophils (0.0-0.7) 10^3/uL 0.24 Absolute Basophils (0.0-0.2) 10^3/uL 0.06 VBG Lactate (0.6-1.4) mmol/L 1.6 H Sodium (136-145) mmol/L 140 Potassium (3.5-5.1) mmol/L 4.3 Chloride (98-107) mmol/L 106 Carbon Dioxide (21.0-32.0) mmol/L 31.3 Anion Gap (3-11) mmol/L 2.7 L BUN (7-18) mg/dL 18 Creatinine (0.55-1.02) mg/dL 1.1 H Est GFR (CKD-EPI 2020) (mL/min/1.73m2) 54.73 Glucose (74-106) mg/dL 138 H Calcium (8.5-10.1) mg/dL 8.9 Magnesium (1.8-2.4) mg/dL 1.7 L Total Bilirubin (0.2-1.0) mg/dL 0.86 AST (15-37) U/L 39 H ALT (14-59) U/L 24 Alkaline Phosphatase (46-116) U/L 153 H Ammonia (11-32) umol/L 44 H Troponin I (< or =60) ng/L < 50 NT-Pro-B Natriuret Pep (<300) pg/mL 38 Total Protein (6.4-8.2) g/dL 5.6 L Albumin (3.4-5.0) g/dL 2.6 L Lipase (16-77) U/L 27 Quality:SDOH Health Related Social Needs: Health related social needs risk of homeless PFSH All Active Problems (Updated 06/05/24 @ 23:05 by Jade Mayorga MD) Weakness (Acute) Colitis (Acute) Thrush, oral (Acute) Bacteremia (Acute) Severe sepsis (Acute) Medical History 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 Chronically elevated ammonia level. On lactulose. Liver cirrhosis secondary to SALCIDO Pituitary cyst Hypersomnia GAVE (gastric antral vascular ectasia) Hyperglycemia due to type 2 diabetes mellitus JAYDEN (obstructive sleep apnea) Acquired arteriovenous malformation Atypical angina Biliary dyskinesia Lung nodule Submucosal neoplasm of stomach No-show for appointment Acute hip pain Weakness Generalized pruritus Anemia Bladder spasm Dermoid cyst History of peptic ulcer disease Osteoarthritis Pancreatitis Hypertensive disorder Hepatic encephalopathy Excess skin of eyelid Edema Dyspnea Atrophy of vagina Atrophic vaginitis Actinic keratosis Pituitary adenoma Restless legs Neoplasm of parotid gland Lumbar spondylosis Lesion of esophagus Dyslipidemia Depressive disorder Crohn's disease Chronic low back pain Anxiety Anemia Cirrhosis Type 2 diabetes mellitus SALCIDO (nonalcoholic steatohepatitis) CHF (congestive heart failure) Anasarca Surgical History History of oophorectomy, unilateral History of rotator cuff surgery bilateral History of total knee arthroplasty bilateral History of sleeve gastrectomy History of hysterectomy Family History Brother Cancer Lung Alcohol use disorder 2 older brothers Social History Smoking/Tobacco Use Status: Never Smoking risk assessment performed?: Yes Alcohol Intake: never Drug use: Never Substance use type: does not use Housing: house Current gender identity: female Do you feel safe at home: Yes Do you feel safe in your relationship?: Yes Additional Social history: Lives with Arslan, and son in [place]. Moved from [place] in 2019. Has a dog and 7 pet birds.
[2024-06-05] MEDS: MAGNESIUM SULFATE 1 GM/100 ML BAG 100 GM (22:28)
[2024-06-05] MEDS: MAGNESIUM SULFATE 1 GM/100 ML BAG IVINF (22:28)
== END 2024-06-05 23:45 | disposition home or self-care (01) ==
LOC: ER 23:05 → RED 23:45
PROVIDERS: Emergency Provider Student in an Organized Health Care Education/Training Program; PCP Family Medicine
DX: R53.1 Weakness (principal); R53.83 Other fatigue; E83.42 Hypomagnesemia; D64.9 Anemia, unspecified; I11.0 Hypertensive heart disease with heart failure; I50.9 Heart failure, unspecified; E11.9 Type 2 diabetes mellitus without complications; Z79.84 Long term (current) use of oral hypoglycemic drugs; Z79.899 Other long term (current) drug therapy
CPT/HCPCS: 36415; 80053; 83690; 93005; 96365; 99284; 82140; 83605; 83735; 83880; 84484; 85025; 93010; J3475

== ENCOUNTER 2024-06-24 15:22 | Outpatient (CLI) | payer MEDICARE, SELFPAY ==
[2024-06-24 14:34] LABS: Absolute Basophil Count 0.03 10^3/uL (0.0-0.2); Absolute Eosinophil Count 0.25 10^3/uL (0.0-0.7); Absolute Lymphocyte Count 0.74 10^3/uL (1.2-3.4); Absolute Monocyte Count 0.38 10^3/uL (0.1-0.8); Basophils % 0.9 %; Eosinophils % 7.1 %; HCT 30.9 % (36.0-46.0); HGB 9.9 g/dL (11.2-15.7); Lymphocytes % 21.1 %; MCV 97 fL (80-95); MPV 9.7 fL (8.0-11.0); Monocytes % 10.9 %; RBC 3.19 10^6/uL (3.93-5.22); RDW 15.2 % (11.7-14.6); RDW-SD 54.1 fL
[2024-06-24 14:48] LABS: Anion Gap 3.1 mmol/L (3-11); BUN 16 mg/dL (7-18); CO2 28.9 mmol/L (21.0-32.0); CREATININE 0.8 mg/dL (0.55-1.02); Calcium 8.6 mg/dL (8.5-10.1); Chloride 109 mmol/L (98-107); Estimated GFR 79.71 (mL/min/1.73m2); Glucose 204 mg/dL (74-106); Magnesium 1.8 mg/dL (1.8-2.4); Potassium 3.9 mmol/L (3.5-5.1); Sodium 141 mmol/L (136-145)
[2024-06-24 14:50] LABS: Platelet Count 76 10^3/uL (130-400)
[2024-06-24 15:08] LABS: Ferritin 81 ng/mL (8-252)
== END 2024-06-24 15:23 | disposition home or self-care (01) ==
LOC: LBO 15:23
PROVIDERS: Nurse Practitioner Acute Care; PCP Family Medicine; Visit Provider Internal Medicine Hematology & Oncology
DX: E87.0 Hyperosmolality and hypernatremia (principal); N17.9 Acute kidney failure, unspecified; D50.0 Iron deficiency anemia secondary to blood loss (chronic)
CPT/HCPCS: 36415; 80048; 82728; 83735; 85025

== ENCOUNTER 2024-06-29 03:00 | Emergency (ER) | payer MEDICARE, SELFPAY ==
--- NOTE | 2024-06-29 03:04 | W.ED.GENAD ---
Discharge Plan Disposition Patient Disposition: Home Condition: Good Discharge Details Clinical Impression: Hyperammonemia Primary Care Provider: Jefe Coffey ED Provider: Arslan Santana Meds and New Rx's Prescriptions: Continued lactulose 10 gram/15 mL solution 30 g PO TID Ozempic 0.25 mg or 0.5 mg (2 mg/3 mL) pen injector 0.25 mg subcut QWEEK Rx Instructions: for 4 weeks oxycodone 5 mg tablet 5 mg PO Q6H PRN metformin 1,000 mg Tablet 1,000 mg PO BID ropinirole 2 mg Tablet 2 mg PO BID nystatin 100,000 unit/gram Powder 6,000,000 unit topical TID Qty: 60 0RF Rx Instructions: apply to reddened skin folds pantoprazole 40 mg Tablet,Delayed Release (Dr/Ec) 40 mg PO BID polyethylene glycol 3350 17 gram Powder In Packet 17 g PO DAILY PRN PRN (Reason: Constipation) Qty: 0 0RF oxybutynin chloride 5 mg Tablet 5 mg PO BID Qty: 60 0RF torsemide 20 mg tablet 40 mg PO DAILY Patient Comments: TAKE TWO TABLETS BY MOUTH EVERY DAY fluoxetine 40 mg capsule 40 mg PO DAILY ondansetron HCl 4 mg tablet 4 mg PO DAILY PRN Patient Comments: TAKE ONE TABLET BY MOUTH EVERY DAY NEEDED FOR NAUSEA doxepin 10 mg capsule 20 mg PO QHS Qty: 0 0RF Patient Comments: 20 mg once a day potassium chloride 20 mEq tablet extended release 20 meq PO TID Qty: 90 0RF Rx Instructions: with meals magnesium oxide 400 mg magnesium tablet 400 mg PO DAILY Qty: 30 0RF Discharge Instructions Additional Instructions: You were seen for difficulty ambulating and mild confusion. Your ammonia level is once again quite elevated with some mild hepatic encephalopathy ensuing. Your other laboratory studies are baseline and stable. As we discussed recommend taking 30 mL of lactulose every 3 hours until you are back to having 3-4 stools a day. You should reach out to your GI physician Aubrie to discuss other possible therapies or changes. You should return to the ED for worsening confusion, fever, neurologic change, abdominal pain, other concerns. HPI General Mode of arrival: wheelchair. Date/Time Provider Initiated Documentation: 06/29/24 03:02. Limitations to Documentation: no limitations. Information obtained by: patient, family, RN notes reviewed and old records reviewed. HPI Narrative: Patient presenting to ED with complaint of difficulty ambulating, confusion. She does not necessarily feel weak although she did have a fall yesterday. She is reporting that it is more like she cannot get her body to do what her mind is telling it to do. This is occurred previously in the setting of increased ammonia and presumed hepatic encephalopathy. She has increased her lactulose from 30 cc 3 times a day to 60 cc 3 times a day but is still only having a bowel movement once a day. She denies any fever, cough, chest pain, shortness of breath, abdominal pain, vomiting, urinary symptoms. She has chronic lower extremity edema which is unchanged. 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 She has not noticed any gross bleeding. She was not injured when she fell yesterday. She did not strike her head. She does not feel that she has had any syncopal events. Son reports that she definitely seems more confused than usual. She is followed by primary care in [place] and is followed by GI at [facility]. Related Data Home Medications ?Medication ?Instructions ?Recorded ?Confirmed metformin 1,000 mg tablet 1,000 mg PO BID 11/09/22 06/29/24 ropinirole 2 mg tablet 2 mg PO BID 11/09/22 06/29/24 pantoprazole 40 mg tablet,delayed 40 mg PO BID 12/15/22 06/29/24 release oxycodone 5 mg tablet 5 mg PO Q6H PRN 01/23/23 06/29/24 nystatin 100,000 unit/gram topical 6,000,000 unit topical TID #60 02/05/23 06/29/24 powder grams lactulose 10 gram/15 mL oral 30 g PO TID 06/26/23 06/29/24 solution polyethylene glycol 3350 17 gram 17 g PO DAILY PRN PRN Constipation 07/01/23 06/29/24 oral powder packet #0 ea oxybutynin chloride 5 mg tablet 5 mg PO BID #60 tabs 11/13/23 06/29/24 semaglutide 0.25 mg or 0.5 mg (2 0.25 mg subcut QWEEK 12/12/23 06/29/24 mg/3 mL) subcutaneous pen injector (Ozempic) torsemide 20 mg tablet 40 mg PO DAILY 01/23/24 06/29/24 fluoxetine 40 mg capsule 40 mg PO DAILY 01/24/24 06/29/24 doxepin 10 mg capsule 20 mg (2 x 10 mg) PO QHS #0 caps 04/16/24 06/29/24 ondansetron HCl 4 mg tablet 4 mg PO DAILY PRN 04/16/24 06/29/24 magnesium oxide 400 mg PO DAILY #30 tabs 06/02/24 06/29/24 potassium chloride 20 mEq 20 meq PO TID #90 tabs 06/02/24 06/29/24 tablet,extended release Previous Rx's ?Medication ?Instructions ?Recorded nystatin 100,000 unit/gram topical 6,000,000 unit topical TID #60 02/05/23 powder grams polyethylene glycol 3350 17 gram 17 g PO DAILY PRN PRN Constipation 07/01/23 oral powder packet #0 ea oxybutynin chloride 5 mg tablet 5 mg PO BID #60 tabs 11/13/23 doxepin 10 mg capsule 20 mg (2 x 10 mg) PO QHS #0 caps 04/16/24 magnesium oxide 400 mg PO DAILY #30 tabs 06/02/24 potassium chloride 20 mEq 20 meq PO TID #90 tabs 06/02/24 tablet,extended release Allergies Allergy/AdvReac Type Severity Reaction Status Date / Time Penicillins Allergy Severe Swelling/Ed Verified 06/29/24 03:16 sophie tramadol Allergy Severe Swelling/Ed Verified 06/29/24 03:16 sophie apricot Allergy Intermediate Hives Verified 06/29/24 03:16 ferrous sulfate Allergy Unknown Other (See Verified 06/29/24 03:16 Comment) raspberry Allergy Other (See Verified 06/29/24 03:16 Comment) vancomycin AdvReac Intermediate Other (See Verified 06/29/24 03:16 Comment) General CHELA: 3 Review of Systems Narrative: Per HPI Exam Narrative Exam Narrative: Const: WDWN female in NAD. VS per triage. HEENT: NC/AT. Normal facial exam. Neck: Supple. Trachea midline. Lungs: Normal respiratory effort. Lungs are clear. Cor: RRR with loud murmur. Good radial pulses. GI: Soft/ND/NT. Neuro: A+O x 3. Normal speech with occasional word finding problem. Mentation normal though son reports increased confusion. Cranial nerves II - XII grossly intact. No gross motor or sensory deficit. 5/5 strength in extremities. Ext: No C/C. 2+ edema BLE. Medical Decision Making Patient presenting to ED with increased confusion and difficulty ambulating. She does not describe it is weakness. She has 5 out of 5 strength in her lower extremities and is able to raise and hold her legs off the bed for 5 seconds. She is only having 1 bowel movement a day despite taking 60 cc of lactulose 3 times a day. She has history of electrolyte abnormalities and anemia. She reports that any 1 of these problems typically results in findings that she is experiencing now. Will place IV and check laboratory studies, obtain urine to rule out UTI. Denies head injury or loss of consciousness with fall yesterday. Denies cough, chest pain, shortness of breath. Will hold off on any imaging at this point. 04:15 - Patient's labs are stable except for her ammonia which is elevated to 138. Her hemoglobin is stable at 9.8. Chemistries are fine as is kidney function. Glucose at 226. Liver function looks good. Urine is not infected. Discussed with patient. Rather than taking more lactulose 3 times a day recommend taking 30 mL every 2-3 hours until having 3-4 bowel movements a day once again. She is also encouraged to call her GI physicians at [facility] for further recommendations. She is felt safe for discharge home. Return precautions provided. Medical Records Medical records reviewed: Yes I reviewed the patient's medical records. Medical records narrative: ED and inpatient records from here. Lab Data Lab results reviewed: Yes I reviewed the patient's lab results. 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 Chronically elevated ammonia level. On lactulose. Liver cirrhosis secondary to SALCIDO Pituitary cyst Hypersomnia GAVE (gastric antral vascular ectasia) JAYDEN (obstructive sleep apnea) Acquired arteriovenous malformation Atypical angina Biliary dyskinesia Lung nodule Submucosal neoplasm of stomach Anemia Dermoid cyst History of peptic ulcer disease Osteoarthritis Pancreatitis Hypertensive disorder Hepatic encephalopathy Edema Atrophy of vagina Atrophic vaginitis Actinic keratosis Pituitary adenoma Restless legs Neoplasm of parotid gland Lumbar spondylosis Lesion of esophagus Dyslipidemia Depressive disorder Crohn's disease Chronic low back pain Anxiety Anemia Cirrhosis Type 2 diabetes mellitus SALCIDO (nonalcoholic steatohepatitis) CHF (congestive heart failure) Anasarca Surgical History History of oophorectomy, unilateral History of rotator cuff surgery bilateral History of total knee arthroplasty bilateral History of sleeve gastrectomy History of hysterectomy Family History Brother Cancer Lung Alcohol use disorder 2 older brothers Social History Smoking/Tobacco Use Status: Never Smoking risk assessment performed?: Yes Alcohol Intake: never Drug use: Never Substance use type: does not use Housing: house Current gender identity: female Do you feel safe at home: Yes Do you feel safe in your relationship?: Yes Additional Social history: Lives with Arslan, and son in [place]. Moved from [place] in 2019. Has a dog and 7 pet birds.
[2024-06-29 03:05] VITALS: BP 157/32; PULSE 91; RESP 14; TEMP 36.4; O2SAT 95
[2024-06-29 03:11] VITALS: RESP 16
[2024-06-29 03:17] VITALS: PULSE 94; RESP 16; O2SAT 95
[2024-06-29 03:20] VITALS: PULSE 94; RESP 11; O2SAT 95
[2024-06-29 03:51] LABS: Abs Immature Grans 0.01 10^3/uL (0.0-0.06); Absolute Basophil Count 0.04 10^3/uL (0.0-0.2); Absolute Eosinophil Count 0.22 10^3/uL (0.0-0.7); Absolute Lymphocyte Count 0.94 10^3/uL (1.2-3.4); Absolute Monocyte Count 0.44 10^3/uL (0.1-0.8); Absolute Neutrophil Count 2.64 10^3/uL (1.2-6.7); Basophils % 0.9 %; Eosinophils % 5.1 %; HCT 30.5 % (36.0-46.0); HGB 9.8 g/dL (11.2-15.7); Immature Grans % 0.2 %; Lymphocytes % 21.9 %; MCH 30.8 pg (27.0-33.0); MCHC 32.1 % (32.0-36.0); MCV 96 fL (80-95); MPV 10.3 fL (8.0-11.0); Monocytes % 10.3 %; Neutrophils % 61.6 %; RBC 3.18 10^6/uL (3.93-5.22); WBC 4.29 10^3/uL (4.4-10.8)
[2024-06-29 03:55] LABS: Bilirubin Negative (Negative); Blood Trace-intact (Negative); Clarity Clear (Clear); Glucose 500 mg/dL (Negative); Ketones Negative (Negative); Leukocyte Esterase Negative (Negative); Nitrite Negative (Negative); pH 6.5 (5-8)
[2024-06-29 04:01] LABS: Platelet Count 94 10^3/uL (130-400)
[2024-06-29 04:02] LABS: Diff Comment PLT Morph Reviewed; RBC Morphology Normal
[2024-06-29 04:06] LABS: Ammonia 138 umol/L (11-32)
[2024-06-29 04:08] LABS: ALT 24 U/L (14-59); AST 36 U/L (15-37); Albumin 2.5 g/dL (3.4-5.0); Alkaline Phosphatase 205 U/L (46-116); Anion Gap 4.5 mmol/L (3-11); BUN 18 mg/dL (7-18); Bilirubin, Total 0.72 mg/dL (0.2-1.0); CO2 29.5 mmol/L (21.0-32.0); CREATININE 0.8 mg/dL (0.55-1.02); Calcium 8.6 mg/dL (8.5-10.1); Chloride 106 mmol/L (98-107); Estimated GFR 79.71 (mL/min/1.73m2); Glucose 226 mg/dL (74-106); Magnesium 1.9 mg/dL (1.8-2.4); Sodium 140 mmol/L (136-145); Total Protein 5.6 g/dL (6.4-8.2)
[2024-06-29 04:10] LABS: Bacteria Rare HPF (Negative); C & S Indicated? No; Casts Negative LPF (Negative); Crystals Negative HPF (Negative); Epithelial Cells Moderate HPF (Negative); Mucus Negative (Negative); RBC 0-2 HPF (0-2); WBC Negative HPF (0-5)
[2024-06-29 04:32] VITALS: BP 138/46; PULSE 86; RESP 16; TEMP 37; O2SAT 96
== END 2024-06-29 04:31 | disposition home or self-care (01) ==
PROVIDERS: Emergency Provider Emergency Medicine; PCP Family Medicine
DX: E72.20 Disorder of urea cycle metabolism, unspecified (principal); R26.9 Unspecified abnormalities of gait and mobility; K76.82 Hepatic encephalopathy; D64.9 Anemia, unspecified; E78.5 Hyperlipidemia, unspecified; I11.0 Hypertensive heart disease with heart failure; I50.9 Heart failure, unspecified; E11.9 Type 2 diabetes mellitus without complications; Z79.899 Other long term (current) drug therapy
CPT/HCPCS: 36415; 80053; 99283; 81003; 81015; 82140; 83735; 85025; 99284

== ENCOUNTER 2024-07-28 13:04 | Outpatient (CLI) | payer MEDICARE, SELFPAY ==
[2024-07-28 13:14] LABS: Abs Immature Grans 0.01 10^3/uL (0.0-0.06); Absolute Basophil Count 0.04 10^3/uL (0.0-0.2); Absolute Eosinophil Count 0.16 10^3/uL (0.0-0.7); Absolute Lymphocyte Count 0.75 10^3/uL (1.2-3.4); Absolute Monocyte Count 0.44 10^3/uL (0.1-0.8); Absolute Neutrophil Count 2.09 10^3/uL (1.2-6.7); Basophils % 1.1 %; Eosinophils % 4.6 %; HCT 31.5 % (36.0-46.0); Immature Grans % 0.3 %; Lymphocytes % 21.5 %; MCH 29.8 pg (27.0-33.0); MCHC 31.7 % (32.0-36.0); MCV 94 fL (80-95); MPV 9.2 fL (8.0-11.0); Monocytes % 12.6 %; Neutrophils % 59.9 %; Platelet Count 110 10^3/uL (130-400); RBC 3.36 10^6/uL (3.93-5.22); RDW 13.6 % (11.7-14.6); RDW-SD 47.6 fL; WBC 3.49 10^3/uL (4.4-10.8)
[2024-07-28 13:54] LABS: Ferritin 27 ng/mL (8-252)
== END 2024-07-28 13:05 | disposition home or self-care (01) ==
LOC: LBO 13:04
PROVIDERS: PCP Family Medicine; Visit Provider Internal Medicine Hematology & Oncology
DX: D50.0 Iron deficiency anemia secondary to blood loss (chronic) (principal)
CPT/HCPCS: 36415; 82728; 85025

== ENCOUNTER 2024-08-10 20:39 | Observation (INO) | payer MEDICARE, SELFPAY ==
[2024-08-10] VITALS (22 sets, daily range): BP systolic 142–190; BP diastolic 36–60; PULSE 78–107; RESP 12–17; TEMP 37; O2SAT 89–100
--- NOTE | 2024-08-10 20:30 | RT.EKG_ITS ---
APPROVED REPORT Exam: Resting ECG Reason for Exam: Weakness Over 45 Patient Location: E HR:82 bpm ECG Measurements Heart Rate 82 AXIS VT 167 P 70 QRSd 99 QRS 28 QT 400 T 74 QTc 469 Conclusion Sinus rhythm 82 NORMAL AXIS NO STEMI
--- NOTE | 2024-08-10 21:06 | W.ED.GENAD ---
Discharge Plan Discharge Details Chief Complaint: GenMedical Primary Care Provider: Jefe Coffey ED Provider: Tonya Bermeo Home Meds and New Rx's Prescriptions: No Action lactulose 10 gram/15 mL solution 30 g PO TID Ozempic 0.25 mg or 0.5 mg (2 mg/3 mL) pen injector 0.25 mg subcut QWEEK Rx Instructions: for 4 weeks oxycodone 5 mg tablet 5 mg PO Q6H PRN metformin 1,000 mg Tablet 1,000 mg PO BID ropinirole 2 mg Tablet 2 mg PO BID nystatin 100,000 unit/gram Powder 6,000,000 unit topical TID Qty: 60 0RF Rx Instructions: apply to reddened skin folds pantoprazole 40 mg Tablet,Delayed Release (Dr/Ec) 40 mg PO BID polyethylene glycol 3350 17 gram Powder In Packet 17 g PO DAILY PRN PRN (Reason: Constipation) Qty: 0 0RF oxybutynin chloride 5 mg Tablet 5 mg PO BID Qty: 60 0RF torsemide 20 mg tablet 40 mg PO DAILY Patient Comments: TAKE TWO TABLETS BY MOUTH EVERY DAY fluoxetine 40 mg capsule 40 mg PO DAILY ondansetron HCl 4 mg tablet 4 mg PO DAILY PRN Patient Comments: TAKE ONE TABLET BY MOUTH EVERY DAY NEEDED FOR NAUSEA doxepin 10 mg capsule 20 mg PO QHS Qty: 0 0RF Patient Comments: 20 mg once a day potassium chloride 20 mEq tablet extended release 20 meq PO TID Qty: 90 0RF Rx Instructions: with meals magnesium oxide 400 mg magnesium tablet 400 mg PO DAILY Qty: 30 0RF HPI General Date/Time Provider Initiated Documentation: 08/10/24 20:44. Limitations to Documentation: no limitations. Information obtained by: patient. HPI Narrative: 69-year-old female with past medical history of anemia, Crohn's, hypertension, Salcido, diabetes, CHF presents for evaluation of altered mental status. She presents with her son. She states that she has been feeling weak and having difficulty walking for the last 4 to 5 days. She states that she has been feeling confused and just not totally with it. She has lost her balance, but has not really fallen. She states that she has been taking lactulose, but her bowel movements are not what they want them to be. She states that last night she was confused and instead of taking all of her other medication, she took a bunch of Lasix. send reports that he has started noticing some changes in her but she did not really tell him that this was happening until today. Related Data Home Medications ?Medication ?Instructions ?Recorded ?Confirmed metformin 1,000 mg tablet 1,000 mg PO BID 11/09/22 08/10/24 ropinirole 2 mg tablet 2 mg PO BID 11/09/22 08/10/24 pantoprazole 40 mg tablet,delayed 40 mg PO BID 12/15/22 08/10/24 release oxycodone 5 mg tablet 5 mg PO Q6H PRN 01/23/23 08/10/24 nystatin 100,000 unit/gram topical 6,000,000 unit topical TID #60 02/05/23 08/10/24 powder grams lactulose 10 gram/15 mL oral 30 g PO TID 06/26/23 08/10/24 solution polyethylene glycol 3350 17 gram 17 g PO DAILY PRN PRN Constipation 07/01/23 08/10/24 oral powder packet #0 ea oxybutynin chloride 5 mg tablet 5 mg PO BID #60 tabs 11/13/23 08/10/24 semaglutide 0.25 mg or 0.5 mg (2 0.25 mg subcut QWEEK 12/12/23 08/10/24 mg/3 mL) subcutaneous pen injector (Ozempic) torsemide 20 mg tablet 40 mg PO DAILY 01/23/24 08/10/24 fluoxetine 40 mg capsule 40 mg PO DAILY 01/24/24 08/10/24 doxepin 10 mg capsule 20 mg (2 x 10 mg) PO QHS #0 caps 04/16/24 08/10/24 ondansetron HCl 4 mg tablet 4 mg PO DAILY PRN 04/16/24 08/10/24 magnesium oxide 400 mg PO DAILY #30 tabs 06/02/24 08/10/24 potassium chloride 20 mEq 20 meq PO TID #90 tabs 06/02/24 08/10/24 tablet,extended release Previous Rx's ?Medication ?Instructions ?Recorded nystatin 100,000 unit/gram topical 6,000,000 unit topical TID #60 02/05/23 powder grams polyethylene glycol 3350 17 gram 17 g PO DAILY PRN PRN Constipation 07/01/23 oral powder packet #0 ea oxybutynin chloride 5 mg tablet 5 mg PO BID #60 tabs 11/13/23 doxepin 10 mg capsule 20 mg (2 x 10 mg) PO QHS #0 caps 04/16/24 magnesium oxide 400 mg PO DAILY #30 tabs 06/02/24 potassium chloride 20 mEq 20 meq PO TID #90 tabs 06/02/24 tablet,extended release Allergies Allergy/AdvReac Type Severity Reaction Status Date / Time Penicillins Allergy Severe Swelling/Ed Verified 08/10/24 21:00 sophie tramadol Allergy Severe Swelling/Ed Verified 08/10/24 21:00 sophie apricot Allergy Intermediate Hives Verified 08/10/24 21:00 ferrous sulfate Allergy Unknown Other (See Verified 08/10/24 21:00 Comment) raspberry Allergy Other (See Verified 08/10/24 21:00 Comment) vancomycin AdvReac Intermediate Other (See Verified 08/10/24 21:00 Comment) General Stated Complaint: GenMedical CHELA: 3 Exam Narrative Exam Narrative: Review of Systems: All systems reviewed & are unremarkable except as noted in HPI and below Well-developed, no acute distress NCAT PERRL, normal conjunctiva no scleral icterus or nystagmus RRR Unlabored respiratory effort clear bilaterally Nondistended abdomen soft nontender Extremities w 1+ edema no focal neurologic deficits No asterixis Course Vital Signs Vital signs: Vital Signs Temperature 37 C 08/10/24 20:47 Pulse 89 08/10/24 20:47 Respiratory Rate 14 08/10/24 20:47 Blood Pressure 142/36 H 08/10/24 20:47 Pulse Oximetry 98 08/10/24 20:47 Temperature 37 C 08/10/24 20:47 Temperature Source Oral 08/10/24 20:47 Pulse 89 08/10/24 20:47 Respiratory Rate 14 08/10/24 20:55 Respiratory Effort Normal 08/10/24 20:55 Respiratory Depth Normal 08/10/24 20:55 Respiratory Pattern Normal 08/10/24 20:55 Blood Pressure 142/36 H 08/10/24 20:47 Blood Pressure Position Supine 08/10/24 20:47 Pulse Oximetry 98 08/10/24 20:47 Pain Level 2 08/10/24 20:47 Medical Decision Making Emergent evaluation of progressively worsening weakness and confusion. Initial differential includes hyperammonemia, liver dysfunction, infectious etiology. Patient does not have any obvious neurologic findings on examination. She did not have any falls that might result in trauma. I will check blood work, urinalysis. EKG was reviewed and independently interpreted. Sinus 82 normal axis no acute ischemic changes. Lab work reviewed. There is no leukocytosis or significant anemia. INR is elevated, consistent with her liver disease. Her electrolyte are abnormal including a potassium of 3.1 and magnesium of 1.7. These will be repleted IV. Her ammonia level is elevated at 65. While she has had higher levels previously, it is concerning that she is having symptoms of hepatic encephalopathy at this level. She is also not having appropriate response to the lactulose dose that she is currently taking at home. Her urinalysis does not demonstrate signs of infection. I have discussed with the hospitalist who will admit the patient for further management of these issues. 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 Chronically elevated ammonia level. On lactulose. Liver cirrhosis secondary to SALCIDO Pituitary cyst Hypersomnia GAVE (gastric antral vascular ectasia) JAYDEN (obstructive sleep apnea) Acquired arteriovenous malformation Atypical angina Biliary dyskinesia Lung nodule Submucosal neoplasm of stomach Anemia Dermoid cyst History of peptic ulcer disease Osteoarthritis Pancreatitis Hypertensive disorder Hepatic encephalopathy Edema Atrophy of vagina Atrophic vaginitis Actinic keratosis Pituitary adenoma Restless legs Neoplasm of parotid gland Lumbar spondylosis Lesion of esophagus Dyslipidemia Depressive disorder Crohn's disease Chronic low back pain Anxiety Anemia Cirrhosis Type 2 diabetes mellitus SALCIDO (nonalcoholic steatohepatitis) CHF (congestive heart failure) Anasarca Surgical History History of oophorectomy, unilateral History of rotator cuff surgery bilateral History of total knee arthroplasty bilateral History of sleeve gastrectomy History of hysterectomy Family History Brother Cancer Lung Alcohol use disorder 2 older brothers Social History Smoking/Tobacco Use Status: Never Smoking risk assessment performed?: Yes Alcohol Intake: never Drug use: Never Substance use type: does not use Housing: house Current gender identity: female Do you feel safe at home: Yes Do you feel safe in your relationship?: Yes Additional Social history: Lives with Arslan, and son in [place]. Moved from [place] in 2020. Has a dog and 7 pet birds.
[2024-08-10 21:25] LABS: Abs Immature Grans 0.01 10^3/uL (0.0-0.06); Absolute Basophil Count 0.05 10^3/uL (0.0-0.2); Absolute Lymphocyte Count 0.98 10^3/uL (1.2-3.4); Absolute Monocyte Count 0.67 10^3/uL (0.1-0.8); Absolute Neutrophil Count 3.48 10^3/uL (1.2-6.7); Basophils % 0.9 %; Eosinophils % 3.7 %; HCT 32.2 % (36.0-46.0); HGB 10.1 g/dL (11.2-15.7); Immature Grans % 0.2 %; Lymphocytes % 18.2 %; MCH 28.9 pg (27.0-33.0); MCHC 31.4 % (32.0-36.0); MCV 92 fL (80-95); Monocytes % 12.4 %; Neutrophils % 64.6 %; Platelet Count 136 10^3/uL (130-400); RBC 3.49 10^6/uL (3.93-5.22); RDW-SD 46.2 fL; WBC 5.39 10^3/uL (4.4-10.8)
[2024-08-10 21:39] LABS: INR 1.2 (0.9-1.1); PTT Activated 31.6 sec (23.6-32.8); Prothrombin Time 11.6 sec (9.1-11.1)
[2024-08-10 21:39] LABS: Bilirubin Negative (Negative); Blood Negative (Negative); Clarity Clear (Clear); Glucose Negative (Negative); Ketones Negative (Negative); Leukocyte Esterase Negative (Negative); Nitrite Negative (Negative); Specific Gravity >= 1.030 (1.005-1.025); Urobilinogen 0.2 mg/dL (Up to 0.2)
[2024-08-10 21:47] LABS: Ammonia 65 umol/L (11-32)
[2024-08-10 21:57] LABS: ALT 31 U/L (14-59); AST 33 U/L (15-37); Albumin 2.6 g/dL (3.4-5.0); Alkaline Phosphatase 213 U/L (46-116); Anion Gap 6.4 mmol/L (3-11); BUN 17 mg/dL (7-18); CO2 30.6 mmol/L (21.0-32.0); Calcium 8.8 mg/dL (8.5-10.1); Chloride 106 mmol/L (98-107); Estimated GFR 60.98 (mL/min/1.73m2); Glucose 293 mg/dL (74-106); Lipase 45 U/L (16-77); Magnesium 1.7 mg/dL (1.8-2.4); NT-proBNP 61 pg/mL (<300); Potassium 3.1 mmol/L (3.5-5.1); Sodium 143 mmol/L (136-145); Total Protein 6.4 g/dL (6.4-8.2); Troponin I 16 ng/L (<or=51)
[2024-08-10] MEDS: MAGNESIUM SULFATE 2 GM/50 ML BAG IVINF (22:08)
[2024-08-10] MEDS: Lactulose 20 GM/30 ML CUP PO (22:08)
[2024-08-10] MEDS: POTASSIUM CHLORIDE 10 MEQ/100 ML BAG 100 MEQ IV_INF (22:10)
--- NOTE | 2024-08-10 22:26 | W.PM.HP.N ---
Date of service: 08/10/24 Time of Service: 22:26 Assessment and Plan Assessment and plan (1) Hepatic encephalopathy: Start date: 08/10/24 Assessment and plan: This is a 69-year-old lady who frequently has hospitalization for hepatic encephalopathy and is noncompliant with her lactulose because of increased stooling being bothersome when she attempts to leave the home. She is doing the same thing with her torsemide. Her ammonia level is chronically elevated only being normal quite sometime ago and she does live with her and middle-age son. She is brought to the ED by her son and because of her electrolyte abnormalities and increased ammonia level as well as her report is older son reporting increased encephalopathic symptoms recently, she was admitted for increased dose of the lactulose and electrolyte repletion. She will be on observation plan to return home within the next 24 to 48 hours. She remains a full code. (2) Liver cirrhosis secondary to SALCIDO: Assessment and plan: Patient should be more compliant with lactulose and work around the increase stooling with his medication. Increase supervision of medication compliance would be helpful. (3) Hypokalemia: Start date: 08/10/24 Status: Acute Assessment and plan: Repeat IV and follow-up lab in the morning. Continue oral potassium supplement. (4) Hypomagnesemia: Start date: 08/10/24 Status: Acute Assessment and plan: Replete IV and follow-up lab in the morning. Continue outpatient oral magnesium supplement. (5) Type 2 diabetes mellitus: Assessment and plan: Hold outpatient medical therapy and while hospitalized will do glucometer measurements before meals and at bedtime with moderate sliding scale short acting insulin coverage. The patient is on metformin and a GLP-1 agonist as an outpatient and not insulin by her medication list. 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 Qualifiers: Hypertension type: primary hypertension Qualified Code(s): I10 - Essential (primary) hypertension (7) JAYDEN (obstructive sleep apnea): Assessment and plan: Patient will use home CPAP device with home settings. She is morbidly obese. History of Present Illness History of Present Illness Chief Complaint: Increased confusion with difficulty walking 4 to 5 days. Narrative: This is a 69-year-old female patient who lives with her son and no mass chronically on lactulose with poor response to lactulose recently having increased confusion and difficulty walking with weakness but not falling. She states she has been taking her meds but she is not clear on her medical regimen and her son does not assist her with the medications. The patient told me that she does not take her torsemide as ordered daily because of increased urination especially when going out of the house. She also does the same with her lactulose which is ordered 3 times daily and taken at most only twice daily. She is on supplements for potassium and magnesium and was found to have a low magnesium and potassium again along with increased ammonia level possibly causing her acute worsening of clear thinking with the patient stating she has been more confused at least the last 2-3 days but especially the day of presentation. She was having difficulty moving and was even talking to herself about not being able to do what she was thinking. She does have recurrent hepatic encephalopathy with a chronic elevated ammonia level. She also has diabetes. She is on torsemide daily for edema associated with her SALCIDO and peripheral edema with a normal left-ventricular ejection fraction by echocardiogram and elevated PA pressure at 49 mmHg in February 2023. She will be admitted for increased dose of the lactulose and repletion of electrolyte deficiencies with IV therapy. Long-term her home care should be reevaluated for compliance. She is a full code. Review of Systems Narrative: 13 point review of systems otherwise unrevealing or stable as but the patient can answer questions with mild encephalopathy. 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 Chronically elevated ammonia level. On lactulose. Liver cirrhosis secondary to SALCIDO Pituitary cyst Hypersomnia GAVE (gastric antral vascular ectasia) JAYDEN (obstructive sleep apnea) Acquired arteriovenous malformation Atypical angina Biliary dyskinesia Lung nodule Submucosal neoplasm of stomach Anemia Dermoid cyst History of peptic ulcer disease Osteoarthritis Pancreatitis Hypertensive disorder Hepatic encephalopathy Edema Atrophy of vagina Atrophic vaginitis Actinic keratosis Pituitary adenoma Restless legs Neoplasm of parotid gland Lumbar spondylosis Lesion of esophagus Dyslipidemia Depressive disorder Crohn's disease Chronic low back pain Anxiety Anemia Cirrhosis Type 2 diabetes mellitus SALCIDO (nonalcoholic steatohepatitis) CHF (congestive heart failure) Anasarca Surgical History History of oophorectomy, unilateral History of rotator cuff surgery bilateral History of total knee arthroplasty bilateral History of sleeve gastrectomy History of hysterectomy Family History Brother Cancer Lung Alcohol use disorder 2 older brothers Social History Smoking/Tobacco Use Status: Never Smoking risk assessment performed?: Yes Alcohol Intake: never Drug use: Never Substance use type: does not use Housing: house Current gender identity: female Do you feel safe at home: Yes Do you feel safe in your relationship?: Yes Additional Social history: Lives with Arslan, and son in [place]. Moved from [place] in 2019. Has a dog and 7 pet birds. Meds Allergies and Home Medications Allergies Allergy/AdvReac Type Severity Reaction Status Date / Time Penicillins Allergy Severe Swelling/Ed Verified 08/10/24 21:00 sophie tramadol Allergy Severe Swelling/Ed Verified 08/10/24 21:00 sophie apricot Allergy Intermediate Hives Verified 08/10/24 21:00 ferrous sulfate Allergy Unknown Other (See Verified 08/10/24 21:00 Comment) raspberry Allergy Other (See Verified 08/10/24 21:00 Comment) vancomycin AdvReac Intermediate Other (See Verified 08/10/24 21:00 Comment) Home Medications ?Medication ?Instructions ?Recorded ?Confirmed ?Type metformin 1,000 mg tablet 1,000 mg PO BID 11/09/22 08/10/24 History ropinirole 2 mg tablet 2 mg PO BID 11/09/22 08/10/24 History pantoprazole 40 mg tablet,delayed 40 mg PO BID 12/15/22 08/10/24 History release oxycodone 5 mg tablet 5 mg PO Q6H PRN 01/23/23 08/10/24 History nystatin 100,000 unit/gram topical 6,000,000 unit topical TID #60 02/05/23 08/10/24 Rx powder grams lactulose 10 gram/15 mL oral 30 g PO TID 06/26/23 08/10/24 History solution polyethylene glycol 3350 17 gram 17 g PO DAILY PRN PRN Constipation 07/01/23 08/10/24 Rx oral powder packet #0 ea oxybutynin chloride 5 mg tablet 5 mg PO BID #60 tabs 11/13/23 08/10/24 Rx semaglutide 0.25 mg or 0.5 mg (2 0.25 mg subcut QWEEK 12/12/23 08/10/24 History mg/3 mL) subcutaneous pen injector (Ozempic) torsemide 20 mg tablet 40 mg PO DAILY 01/23/24 08/10/24 History fluoxetine 40 mg capsule 40 mg PO DAILY 01/24/24 08/10/24 History doxepin 10 mg capsule 20 mg (2 x 10 mg) PO QHS #0 caps 04/16/24 08/10/24 Rx ondansetron HCl 4 mg tablet 4 mg PO DAILY PRN 04/16/24 08/10/24 History magnesium oxide 400 mg PO DAILY #30 tabs 06/02/24 08/10/24 Rx potassium chloride 20 mEq 20 meq PO TID #90 tabs 06/02/24 08/10/24 Rx tablet,extended release Exam Narrative Exam Narrative: General: Patient appears older than stated age, morbidly obese, lying in bed with the head at a 45 degree angle breathing comfortably. She is alert and oriented at least to person, place and partially time. She is no acute distress. She becomes slightly confused and wanders in conversation when reviewing history. HEENT: Normocephalic, eyes with pupils equal and reactive light symmetrically, sclerae anicteric. Oropharynx with slightly dry mucosa and poor dentition. Neck: Supple without JVD. Back: Kyphotic without CVA tenderness. Loss of lordotic curve lumbar spine with decreased range of motion. Lungs: Essentially clear to auscultation percussion with no focalizing rales or rhonchi. No expiratory wheeze. Breast: Exam deferred. Heart: Regular rate and rhythm with 4/6 systolic murmur left sternal border, no gallops or rubs. Abdomen: Obese, soft and slightly tender to palpation with minimal guarding and no rebound. No palpable hepatosplenomegaly. Bowel sounds positive all quadrants. Genitalia/rectal: Exam deferred. Extremities: Obese legs with nonpitting edema, well-healed TKA scars over both knees. Slightly tender to palpation over the pelvic area. No clubbing or cyanosis. Good capillary refill. Skin: Pale, warm and dry. Neuro: Cranial nerves II to XII is intact, no focalizing motor deficits and no tremor. Psych: Patient has flattened affect with depressed mood. Patient wandering conversation is slightly encephalopathic with some short-term memory loss and no abnormal thought processes. Remote memory appears grossly intact. Results Imaging Imaging Studies: No imaging was performed this ED visit with patient not having falls or history of trauma recently. EXAM: Comprehensive 2D, Doppler, and color-flow Echocardiogram Date of Exam: 02/04/23 Study Quality: Adequate. Technically limited study due to body habitus, inability to position patient exam done supine. Conclusion Normal left ventricular wall thickness and chamber size. Estimated ejection fraction is 60%. Wall motion is normal Right ventricle is normal in size and systolic function Both atria are normal in size Aortic valve is trileaflet with trace regurgitation Normal mitral valve with trace to mild regurgitation Normal tricuspid valve with mild regurgitation. Estimated right ventricular systolic pressure is 49 mmHg Labs 08/10/24 21:17 08/10/24 21:17 Labs: Laboratory Results - last 24 hr 08/10/24 08/10/24 21:17 21:31 WBC 5.39 RBC 3.49 L Hgb 10.1 L Hct 32.2 L MCV 92 MCH 28.9 MCHC 31.4 L RDW 14.0 Plt Count 136 MPV 10.0 Immature Gran % 0.2 Neutrophils % 64.6 Lymphocytes % 18.2 Monocytes % 12.4 Eosinophils % 3.7 Basophils % 0.9 Nucleated RBC % 0.0 Absolute Neutrophils 3.48 Absolute Lymphocytes 0.98 L Absolute Monocytes 0.67 Absolute Eosinophils 0.20 Absolute Basophils 0.05 PT 11.6 H INR 1.2 H APTT 31.6 Sodium 143 Potassium 3.1 L Chloride 106 Carbon Dioxide 30.6 Anion Gap 6.4 BUN 17 Creatinine 1.0 Est GFR (CKD-EPI 2020) 60.98 Glucose 293 H Calcium 8.8 Magnesium 1.7 L Total Bilirubin 1.00 AST 33 ALT 31 Alkaline Phosphatase 213 H Ammonia 65 H Troponin I 16 NT-Pro-B Natriuret Pep 61 Total Protein 6.4 Albumin 2.6 L Lipase 45 TSH 1.20 Urine Color Yellow Urine Clarity Clear Urine pH 5.0 Ur Specific [place] >= 1.030 H Urine Protein Negative Urine Ketones Negative Urine Blood Negative Urine Nitrite Negative Urine Bilirubin Negative Urine Urobilinogen 0.2 Ur Leukocyte Esterase Negative Urine Glucose Negative Last Vital Signs Temp 37 C 08/10/24 20:47 Pulse 89 08/10/24 20:47 Resp 14 08/10/24 20:55 BP 142/36 H 08/10/24 20:47 Pulse Ox 98 08/10/24 20:47 Time Spent Time spent with Patient: >75 minutes Time was spent: preparing to see the patient(eg.review tests), obtaining and/or reviewing separately otained hiistory, ordering medications,tests, procedures, indepentently interpreting results, counseling the patient and care coordination
[2024-08-10 23:47] LABS: *AMPHETAMINES SCREEN URINE Negative (Negative); *BARBITURATES SCREEN URINE Negative (Negative); *BENZODIAZEPINES SCREEN URINE Negative (Negative); Cannabinoids THC Negative (Negative); Cocaine Screen,Urine Negative (Negative); METHADONE URINE SCREEN Negative (Negative); OPIATES URINE SCREEN Negative (Negative)
[2024-08-10 23:57] LABS: Tricyclic Antidepressants Positive (Negative)
[2024-08-11] VITALS (10 sets, daily range): BP systolic 119–184; BP diastolic 29–55; PULSE 76–93; RESP 13–20; TEMP 36.4–37.4; O2SAT 95–99
--- NOTE | 2024-08-11 00:33 | W.PC.ACHO ---
Registration Status: Primary Language: Preferred Language: ED Information & Data Chief Complaint GenMedical 08/10/24 21:09 Triage Note Pt having reduced mobility, 08/10/24 20:47 weakness. Hx of cirrhosis, takes lactulose, feel like her ammonia is high. Pt reports taking meds as she should. Some 2/10 abd pain with movement. LBM couple of hours ago Medical / Surgical History (Last Reviewed 08/10/24 @ 22:33 by Devin Carlson) Encephalopathy Liver cirrhosis secondary to SALCIDO Pituitary cyst Hypersomnia GAVE (gastric antral vascular ectasia) JAYDEN (obstructive sleep apnea) Acquired arteriovenous malformation Atypical angina Biliary dyskinesia Lung nodule Submucosal neoplasm of stomach Anemia Dermoid cyst History of peptic ulcer disease Osteoarthritis Pancreatitis Hypertensive disorder Hepatic encephalopathy Edema Atrophy of vagina Atrophic vaginitis Actinic keratosis Pituitary adenoma Restless legs Neoplasm of parotid gland Lumbar spondylosis Lesion of esophagus Dyslipidemia Depressive disorder Crohn's disease Chronic low back pain Anxiety Anemia Cirrhosis Type 2 diabetes mellitus SALCIDO (nonalcoholic steatohepatitis) CHF (congestive heart failure) Anasarca (Last Reviewed 08/10/24 @ 22:33 by Devin Carlson) History of oophorectomy, unilateral History of rotator cuff surgery History of total knee arthroplasty History of sleeve gastrectomy History of hysterectomy Most Recent Vital Signs Temperature 37 C 08/10/24 20:47 Temperature Source Oral 08/10/24 20:47 Pulse 79 08/10/24 23:15 Pulse 84 08/10/24 23:20 Respiratory Rate 13 08/10/24 23:20 Respiratory Effort Normal 08/10/24 20:55 Respiratory Depth Normal 08/10/24 20:55 Respiratory Pattern Normal 08/10/24 20:55 Blood Pressure 172/47 H 08/10/24 23:15 Blood Pressure Mean 85 08/10/24 23:15 Blood Pressure Position Supine 08/10/24 20:47 Pulse Oximetry 99 08/10/24 23:58 Oxygen Delivery Method Nasal Cannula 08/10/24 23:58 Pain Level 2 08/10/24 20:47 Allergies Penicillins Allergy (Severe, Verified 08/10/24 21:00) Swelling/Edema tramadol Allergy (Severe, Verified 08/10/24 21:00) Swelling/Edema apricot Allergy (Intermediate, Verified 08/10/24 21:00) Hives apricots, fruit. ferrous sulfate Allergy (Unknown, Verified 08/10/24 21:00) Other (See Comment) raspberry Allergy (Verified 08/10/24 21:00) Other (See Comment) vancomycin Adverse Reaction (Intermediate, Verified 08/10/24 21:00) Other (See Comment) Red Man Syndrome IV IV Catheter Type [Left Saline Lock Antecubital] IV Catheter Gauge [Left 18 Antecubital] Diagnostics 08/10/24 08/10/24 Range/Units 21:31 21:17 WBC 5.39 (4.4-10.8) 10^3/uL RBC 3.49 L (3.93-5.22) 10^6/uL Hgb 10.1 L (11.2-15.7) g/dL Hct 32.2 L (36.0-46.0) % MCV 92 (80-95) fL MCH 28.9 (27.0-33.0) pg MCHC 31.4 L (32.0-36.0) % RDW 14.0 (11.7-14.6) % Plt Count 136 (130-400) 10^3/uL MPV 10.0 (8.0-11.0) fL Immature Gran % 0.2 % Neutrophils % 64.6 % Lymphocytes % 18.2 % Monocytes % 12.4 % Eosinophils % 3.7 % Basophils % 0.9 % Nucleated RBC % 0.0 (0.0-0.3) % Absolute Neutrophils 3.48 (1.2-6.7) 10^3/uL Absolute Lymphocytes 0.98 L (1.2-3.4) 10^3/uL Absolute Monocytes 0.67 (0.1-0.8) 10^3/uL Absolute Eosinophils 0.20 (0.0-0.7) 10^3/uL Absolute Basophils 0.05 (0.0-0.2) 10^3/uL PT 11.6 H (9.1-11.1) sec INR 1.2 H (0.9-1.1) APTT 31.6 (23.6-32.8) sec Sodium 143 (136-145) mmol/L Potassium 3.1 L (3.5-5.1) mmol/L Chloride 106 (98-107) mmol/L Carbon Dioxide 30.6 (21.0-32.0) mmol/L Anion Gap 6.4 (3-11) mmol/L BUN 17 (7-18) mg/dL Creatinine 1.0 (0.55-1.02) mg/dL Est GFR (CKD-EPI 2020) 60.98 (mL/min/1.73m2) Glucose 293 H (74-106) mg/dL Calcium 8.8 (8.5-10.1) mg/dL Magnesium 1.7 L (1.8-2.4) mg/dL Total Bilirubin 1.00 (0.2-1.0) mg/dL AST 33 (15-37) U/L ALT 31 (14-59) U/L Alkaline Phosphatase 213 H (46-116) U/L Ammonia 65 H (11-32) umol/L Troponin I 16 (<or=51) ng/L NT-Pro-B Natriuret Pep 61 (<300) pg/mL Total Protein 6.4 (6.4-8.2) g/dL Albumin 2.6 L (3.4-5.0) g/dL Lipase 45 (16-77) U/L TSH 1.20 (0.36-3.74) uIU/Ml Urine Color Yellow (Yellow) Urine Clarity Clear (Clear) Urine pH 5.0 (5-8) Ur Specific [place] >= 1.030 H (1.005-1.025) Urine Protein Negative (Neg-Trace) mg/dL Urine Ketones Negative (Negative) mg/dL Urine Blood Negative (Negative) Urine Nitrite Negative (Negative) Urine Bilirubin Negative (Negative) Urine Urobilinogen 0.2 (Up to 0.2) mg/dL Ur Leukocyte Esterase Negative (Negative) Urine Glucose Negative (Negative) mg/dL Urine Opiates Screen Negative (Negative) Urine Methadone Screen Negative (Negative) Ur Barbiturates Screen Negative (Negative) Ur Tricyclics Screen Positive A (Negative) Ur Amphetamines Screen Negative (Negative) U Benzodiazepines Scrn Negative (Negative) Urine Cocaine Screen Negative (Negative) Ur THC Screen Negative (Negative) Intake and Output - 24 Hour Total 08/10/24 20:39 thru 08/10/24 23:16 Intake Total 150 Balance 150 Weight 98.5 kg Intake: IV 150 Falls Risk Assessment History of Falls Previous History 08/10/24 20:55 Contributing Factors Confusion,Unstable, 08/10/24 20:55 Impairments,Incontinence, Medications Ambulatory Aids Uses ambulatory device + 08/10/24 20:55 Tubes/Lines With any additional score 08/10/24 20:55 Gait Evaluation W/no contributing factors 08/10/24 20:55 Cognition Cognitive impairment 08/10/24 20:55 Fall Total Score 105 08/10/24 20:55 Level of Risk Maximum Risk 08/10/24 20:55 Problems (Last Reviewed 08/10/24 @ 22:33 by Devin Carlson) Hypomagnesemia (Acute) Hypokalemia (Acute) v v v v v v v v v Sending and/or Receiving Nurses: Please use comment section below to note any information pertinent to the patient hand-off not included above. Information / Comments: Presented tonight, with feelings as if she cant feel her feet. Elevated ammonia level. patient is lethargic which has been increasing for the past 4-5 days. patient accidentally took too much lasix when she was confused the other day.. 18G LAC. Desats while sleeping into the 70s. currently on 3L now at 96-99%. patient has a history of sleep apnea Report received from:
[2024-08-11] MEDS: Doxepin 10 MG CAP 20 MG PO (04:17)
[2024-08-11 07:13] LABS: HCT 30.1 % (36.0-46.0); HGB 9.6 g/dL (11.2-15.7); MCH 29.4 pg (27.0-33.0); MCHC 31.9 % (32.0-36.0); MCV 92 fL (80-95); MPV 9.7 fL (8.0-11.0); Platelet Count 126 10^3/uL (130-400); RBC 3.27 10^6/uL (3.93-5.22); RDW 14.1 % (11.7-14.6); RDW-SD 45.9 fL; WBC 5.05 10^3/uL (4.4-10.8)
[2024-08-11 07:23] LABS: Ammonia 109 umol/L (11-32)
[2024-08-11 07:31] LABS: ALT 24 U/L (14-59); AST 36 U/L (15-37); Albumin 2.4 g/dL (3.4-5.0); Alkaline Phosphatase 202 U/L (46-116); Anion Gap 7.3 mmol/L (3-11); BUN 15 mg/dL (7-18); Bilirubin, Total 1.13 mg/dL (0.2-1.0); CO2 30.7 mmol/L (21.0-32.0); CREATININE 0.8 mg/dL (0.55-1.02); Calcium 8.7 mg/dL (8.5-10.1); Chloride 108 mmol/L (98-107); Estimated GFR 79.71 (mL/min/1.73m2); Glucose 229 mg/dL (74-106); Sodium 146 mmol/L (136-145); Total Protein 5.9 g/dL (6.4-8.2)
[2024-08-11] MEDS: Lactulose 20 GM/30 ML CUP 30 GM PO ×2 (08:18→11:29)
[2024-08-11] MEDS: Oxybutynin 5 MG TAB PO (08:18)
[2024-08-11] MEDS: rOPINIRole 0.5 MG TAB 2 MG PO (08:18)
[2024-08-11] MEDS: Torsemide 20 MG TAB 40 MG PO (08:18)
[2024-08-11] MEDS: Potassium Chloride 20 MEQ TABCR PO (08:19)
[2024-08-11] MEDS: Pantoprazole 40 MG TABCR PO (08:19)
[2024-08-11] MEDS: FLUoxetine 20 MG CAP 40 MG PO (08:19)
[2024-08-11] MEDS: Magnesium Oxide 400 MG TAB PO (08:19)
[2024-08-11] MEDS: Normal Saline Flush 10 ML SYR IVP ×2 (08:20→08:21)
[2024-08-11] MEDS: Nystatin POWDER 60 GM JAR TP (08:24)
[2024-08-11] MEDS: Insulin Aspart 300 UNITS/3 ML PEN SC ×2 (08:24→11:29)
[2024-08-11] MEDS: Enoxaparin 40 MG/0.4 ML SYR SC (09:11)
--- NOTE | 2024-08-11 09:45 | INITIAL_ITS ---
Date of service: 08/11/24 Time of Service: 09:45 Care Management Initial Assmt Initial Assessment Reason for Hospitalization: Hepatic encephalopathy Functional Status/Living Situation Town of Residence: [place] Resides with: Spouse (lives with Alexis and son Don) Significant Other/Family: Local Natural Supports: Family Employment Status: Retired Instrumental Activities of Daily Living (ADLs): Independent Physical Functioning/Mobility Assistive Device: Walker Advance Directives Advance Directives: Do you have an Advance Directive: N 09/23/23 16:39 AD On File at [facility]: N 09/23/23 16:39 Date Asked 08/10/24 08/10/24 20:47 AD Date Reviewed COLST On File at [facility] No 08/10/24 20:47 COLST Date Scanned Code Status Resuscitation Status Full Code Insurance Coverage/Financial Issues Insurance: [employer] Medicare Replacement Care Team Visit Care Team Role Provider Type Jefe Coffey Primary Care Provider NON-[facility] STAFF PHYSICIAN Tonya Bermeo MD Emergency Provider [facility] STAFF PHYSICIAN Devin Carlson Admit Provider NON-[facility] STAFF PHYSICIAN Attending Provider Discharge Potential Discharge Needs: PCP F/U Appt Anticipated Barriers to Discharge: Medical Status Patient/Family Education Needs: Review discharge instructions, discuss Ask Me Three Transportation: Private vehicle Plan: Re will likely be discharged home, possibly with new home health services, when medically stable. She will follow up with her PCP and plan of care and transport with her family. CM will follow and continue to assess for discharge needs. 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 Chronically elevated ammonia level. On lactulose. Liver cirrhosis secondary to SALCIDO Pituitary cyst Hypersomnia GAVE (gastric antral vascular ectasia) JAYDEN (obstructive sleep apnea) Acquired arteriovenous malformation Atypical angina Biliary dyskinesia Lung nodule Submucosal neoplasm of stomach Anemia Dermoid cyst History of peptic ulcer disease Osteoarthritis Pancreatitis Hypertensive disorder Hepatic encephalopathy Edema Atrophy of vagina Atrophic vaginitis Actinic keratosis Pituitary adenoma Restless legs Neoplasm of parotid gland Lumbar spondylosis Lesion of esophagus Dyslipidemia Depressive disorder Crohn's disease Chronic low back pain Anxiety Anemia Cirrhosis Type 2 diabetes mellitus SALCIDO (nonalcoholic steatohepatitis) CHF (congestive heart failure) Anasarca Surgical History History of oophorectomy, unilateral History of rotator cuff surgery bilateral History of total knee arthroplasty bilateral History of sleeve gastrectomy History of hysterectomy Family History Brother Cancer Lung Alcohol use disorder 2 older brothers Social History Smoking/Tobacco Use Status: Never Smoking risk assessment performed?: Yes Alcohol Intake: never Drug use: Never Substance use type: does not use Housing: house Current gender identity: female Do you feel safe at home: Yes Do you feel safe in your relationship?: Yes Additional Social history: Lives with Arslan, and son in [place]. Moved from [place] in 2020. Has a dog and 7 pet birds. SDOH(Care Management) Screening Will the Patient Participate in the Screening?: Yes Do you worry about having a steady place to live?: no Problems where you live: pests such as bugs, ants or mice In the past 12 months, have you had to go without electric, gas, oil or water in your home?: yes Have you or anyone in your house had to go without enough food to eat?: yes Has lack of transportation kept you from medical appointments or from doing things needed for daily living?: yes Has anyone in your support network made you feel unsafe for any reason?: no Health Related Social Needs Health related social needs: inadequate housing(Z59.1), food insecurity(Z59.41), transportation insecurity(Z59.82) and material hardship(utilities)(Z59.87)
--- NOTE | 2024-08-11 11:41 | DSE_ITS ---
Date of service: 08/11/24 Time of Service: 11:49 DS: Diagnosis Discharge Diagnosis (1) Hepatic encephalopathy: (2) Liver cirrhosis secondary to SALCIDO: (3) Hypokalemia: Status: Acute (4) Hypomagnesemia: Status: Acute (5) Type 2 diabetes mellitus: (6) Hypertensive disorder: (7) JAYDEN (obstructive sleep apnea): Discharge Plan Disposition Patient Disposition: Home Condition: Good Discharge Details Reason For Visit: Hepatic encephalopathy, Hypomagnesemia, Hypokalemi Admit Date/Time: 08/10/24 22:52 Admit Provider: Devin Carlson Attending Provider: Devin Carlson Primary Care Provider: Jefe Coffey Hospital Course Hospital Course: Patient initially presented with weakness and confusion consistent with hepatic encephalopathy supporting evidence being elevated ammonia from baseline. Patient reportedly was not taking her lactulose as prescribed due to frequency of bowel movements. This was discussed with both the patient and her explained that while frequent bowel movements may be limiting their ability to leave the house on certain days, it is far more important to be compliant with this medication in order to decrease episodes of confusion, weakness, ambulatory issues and hospitalization. They both expressed understanding and stated they would adhere to appropriate 3 times daily lactulose regimen. Patient ambulated with nursing staff multiple times in the morning and was determined to be stable for discharge home as she had returned back to her baseline mental and functional status. Home Meds and New Rx's Prescriptions: Continued lactulose 10 gram/15 mL solution 30 g PO TID Ozempic 0.25 mg or 0.5 mg (2 mg/3 mL) pen injector 0.25 mg subcut QWEEK Rx Instructions: for 4 weeks oxycodone 5 mg tablet 5 mg PO Q6H PRN metformin 1,000 mg Tablet 1,000 mg PO BID ropinirole 2 mg Tablet 2 mg PO BID nystatin 100,000 unit/gram Powder 6,000,000 unit topical TID Qty: 60 0RF Rx Instructions: apply to reddened skin folds pantoprazole 40 mg Tablet,Delayed Release (Dr/Ec) 40 mg PO BID polyethylene glycol 3350 17 gram Powder In Packet 17 g PO DAILY PRN PRN (Reason: Constipation) Qty: 0 0RF oxybutynin chloride 5 mg Tablet 5 mg PO BID Qty: 60 0RF torsemide 20 mg tablet 40 mg PO DAILY Patient Comments: TAKE TWO TABLETS BY MOUTH EVERY DAY fluoxetine 40 mg capsule 40 mg PO DAILY ondansetron HCl 4 mg tablet 4 mg PO DAILY PRN Patient Comments: TAKE ONE TABLET BY MOUTH EVERY DAY NEEDED FOR NAUSEA doxepin 10 mg capsule 20 mg PO QHS Qty: 0 0RF Patient Comments: 20 mg once a day potassium chloride 20 mEq tablet extended release 20 meq PO TID Qty: 90 0RF Rx Instructions: with meals magnesium oxide 400 mg magnesium tablet 400 mg PO DAILY Qty: 30 0RF Discharge Instructions Activity:: Activity as Tolerated Equipment/Supplies:: No Equipment Needed Diet:: As Tolerated Discharge Orders Discharge Orders: Discharge Order (Routine); Ordered 08/11/24 Ordered By: Carlos Torres DS: Summary Time Spent with Patient providing and/or coordinating discharge services: Greater than 30 minutes Status at Discharge Functional status at discharge: independent ambulation Overall status at discharge: patient is back to baseline Mental Status: mental status grossly normal Speech and Movement: speech and movement normal Mood: congruent mood Affect: normal affect Quality:SDOH Health Related Social Needs: Health related social needs inadequate housing, food i nsecurity, transpo insecurity, material hardship Exam Narrative Exam Narrative: Well-appearing older female sitting up in the chair no acute distress, ANO x 4, heart regular rhythm, lungs clear to auscultation bilaterally, abdomen soft, nontender, nondistended Psych Mental Status: mental status grossly normal Speech and Movement: speech and movement normal Mood: congruent mood Affect: normal affect DS: Data Vitals/I&O Vitals and I&O: Vital Signs Temperature 97.5 F L 08/11/24 11:33 Temperature Source Skin 08/11/24 11:33 Pulse 83 08/11/24 11:33 Pulse 93 H 08/11/24 00:31 Respiratory Rate 15 08/11/24 11:33 Respiratory Effort Normal, Non-Labored 08/11/24 01:01 Respiratory Depth Normal 08/11/24 01:01 Respiratory Pattern Normal 08/11/24 01:01 Blood Pressure 130/47 L 08/11/24 11:33 Blood Pressure Mean 98 08/11/24 00:30 Blood Pressure Position Supine 08/10/24 20:47 Pulse Oximetry 96 08/11/24 11:33 Oxygen Delivery Method Room Air 08/11/24 11:33 Oxygen Flow Rate 0 08/11/24 11:33 Pain Level 8 08/11/24 08:04 Comment patient reported that she uses a cpap at home due to her JAYDEN 08/11/24 01:01 Intake & Output 08/10/24 08/11/24 08/11/24 17:59 05:59 17:59 Intake Total 150 / 150 Output Total 200 / 200 Balance 150 / 150 -200 / -200 Weight 209 lb 8.014 oz Intake: IV 150 / 150 Output: Urine 200 / 200 Other: Urine Color Dark Prema Urine Appearance Clear Urine Odor Strong Voiding Methods Bedside Commode Data Completed and Pending Labs on day of discharge: Labs from last 24 hours 08/11/24 08/10/24 08/10/24 07:00 21:31 21:17 WBC 5.05 5.39 RBC 3.27 L 3.49 L Hgb 9.6 L 10.1 L Hct 30.1 L 32.2 L MCV 92 92 MCH 29.4 28.9 MCHC 31.9 L 31.4 L RDW 14.1 14.0 Plt Count 126 L 136 MPV 9.7 10.0 Immature Gran % 0.2 Neutrophils % 64.6 Lymphocytes % 18.2 Monocytes % 12.4 Eosinophils % 3.7 Basophils % 0.9 Nucleated RBC % 0.0 Absolute Neutrophils 3.48 Absolute Lymphocytes 0.98 L Absolute Monocytes 0.67 Absolute Eosinophils 0.20 Absolute Basophils 0.05 PT 11.6 H INR 1.2 H APTT 31.6 Sodium 146 H 143 Potassium 3.0 L 3.1 L Chloride 108 H 106 Carbon Dioxide 30.7 30.6 Anion Gap 7.3 6.4 BUN 15 17 Creatinine 0.8 1.0 Est GFR (CKD-EPI 2020) 79.71 60.98 Glucose 229 H 293 H Calcium 8.7 8.8 Magnesium 2.0 1.7 L Total Bilirubin 1.13 H 1.00 AST 36 33 ALT 24 31 Alkaline Phosphatase 202 H 213 H Ammonia 109 H 65 H Troponin I 16 NT-Pro-B Natriuret Pep 61 Total Protein 5.9 L 6.4 Albumin 2.4 L 2.6 L Lipase 45 TSH 1.20 Urine Color Yellow Urine Clarity Clear Urine pH 5.0 Ur Specific [place] >= 1.030 H Urine Protein Negative Urine Ketones Negative Urine Blood Negative Urine Nitrite Negative Urine Bilirubin Negative Urine Urobilinogen 0.2 Ur Leukocyte Esterase Negative Urine Glucose Negative Urine Opiates Screen Negative Urine Methadone Screen Negative Ur Barbiturates Screen Negative Ur Tricyclics Screen Positive A Ur Amphetamines Screen Negative U Benzodiazepines Scrn Negative Urine Cocaine Screen Negative Ur THC Screen Negative PFSH All Active Problems (Updated 08/11/24 @ 11:41 by Carlos Torres MD) Hypomagnesemia (Acute) Hypokalemia (Acute) Excess skin of eyelid (Acute) 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 Chronically elevated ammonia level. On lactulose. Liver cirrhosis secondary to SALCIDO Pituitary cyst Hypersomnia GAVE (gastric antral vascular ectasia) JAYDEN (obstructive sleep apnea) Acquired arteriovenous malformation Atypical angina Biliary dyskinesia Lung nodule Submucosal neoplasm of stomach Anemia Dermoid cyst History of peptic ulcer disease Osteoarthritis Pancreatitis Hypertensive disorder Hepatic encephalopathy Edema Atrophy of vagina Atrophic vaginitis Actinic keratosis Pituitary adenoma Restless legs Neoplasm of parotid gland Lumbar spondylosis Lesion of esophagus Dyslipidemia Depressive disorder Crohn's disease Chronic low back pain Anxiety Anemia Cirrhosis Type 2 diabetes mellitus SALCIDO (nonalcoholic steatohepatitis) CHF (congestive heart failure) Anasarca Surgical History History of oophorectomy, unilateral History of rotator cuff surgery bilateral History of total knee arthroplasty bilateral History of sleeve gastrectomy History of hysterectomy Family History Brother Cancer Lung Alcohol use disorder 2 older brothers Social History Smoking/Tobacco Use Status: Never Smoking risk assessment performed?: Yes Alcohol Intake: never Drug use: Never Substance use type: does not use Housing: house Current gender identity: female Do you feel safe at home: Yes Do you feel safe in your relationship?: Yes Additional Social history: Lives with Arslan, and son in [place]. Moved from [place] in 2019. Has a dog and 7 pet birds. Time Spent with Patient Time Spent with Patient: <45 minutes Time was spent: preparing to see the patient(eg.review tests), obtaining and/or reviewing separately otained hiistory, ordering medications,tests, procedures, referring, communicating with other health child care associate, indepentently interpreting results, counseling the patient and care coordination
--- NOTE | 2024-08-11 13:49 | PDOC.CMDIS ---
Date of service: 08/11/24 Time of Service: 13:49 LACE Index Scoring Tool Questions: Length of Stay (in days): 1 Was the patient admitted via the E.D.?: Yes E.D. Visits: 5 Answers: Total Score: 8 Risk of Readmission: Low Risk Care Management Discharge Plan Reason for Hospitalization: Hepatic encephalopathy Discharge Plan: Discharge home via private vehicle with . Follow up with community providers and discharge plan of care as directed. No new services are ordered prior to discharge. Patient/Family Education Needs: Review discharge instructions, limitations, medication regimen and discharge plan of care. Discuss ask me three and goals of self care. SDOH Health Related Social Needs: Health related social needs risk of homeless Health related social needs: inadequate housing(Z59.1), food insecurity(Z59.41), transportation insecurity(Z59.82) and material hardship(utilities)(Z59.87)
== END 2024-08-11 13:36 | disposition home or self-care (01) ==
LOC: ER 23:53 → MS 08-11 00:48
PROVIDERS: Admitting Provider Family Medicine; Emergency Provider Emergency Medicine; PCP Family Medicine; Visit Provider Family Medicine
DX: K76.82 Hepatic encephalopathy (principal); K75.81 Nonalcoholic steatohepatitis (NASH); E87.6 Hypokalemia; E83.42 Hypomagnesemia; E11.9 Type 2 diabetes mellitus without complications; G47.33 Obstructive sleep apnea (adult) (pediatric); Z79.85 Long-term (current) use of injectable non-insulin antidiabetic drugs; Z79.84 Long term (current) use of oral hypoglycemic drugs; Z79.899 Other long term (current) drug therapy; D64.9 Anemia, unspecified; I50.9 Heart failure, unspecified; I11.0 Hypertensive heart disease with heart failure; K50.90 Crohn's disease, unspecified, without complications; K74.69 Other cirrhosis of liver; Z98.84 Bariatric surgery status; T47.3X6A Underdosing of saline and osmotic laxatives, initial encounter; Z91.128 Patient's intentional underdosing of medication regimen for other reason; E66.01 Morbid (severe) obesity due to excess calories; Z68.39 Body mass index [BMI] 39.0-39.9, adult
CPT/HCPCS: 00123; 36415; 80053; 80307; 83690; 85027; 90656; 93005; 96365; 96372; 99285; J1650; 81003; 82140; 83735; 83880; 84443; 84484; 85025; 85610; 85730; 93010; 99223; 99239; G0378; J1815; J3475; J3480

== ENCOUNTER 2024-08-16 14:14 | Inpatient (IN) | payer MEDICARE, SELFPAY ==
[2024-08-16] VITALS (191 sets, daily range): BP systolic 91–163; BP diastolic 16–81; PULSE 91–134; RESP 13–32; TEMP 2.9–42; O2SAT 88–100
--- NOTE | 2024-08-16 14:00 | RT.EKG_ITS ---
APPROVED REPORT Exam: Resting ECG Reason for Exam: altered mental status Patient Location: E HR:132 bpm ECG Measurements Heart Rate 132 AXIS ME [id number] P [id number] QRSd 92 QRS 58 QT 319 T 64 QTc 484 Conclusion Atrial flutter with predominant 2:1 AV block...A-rate 283, multiple Ps Ventricular premature complex...V complex w/ short R-R interval Nonspecific T abnormalities, lateral leads...T <-0.10mV, I aVL V5 V6 regular narrow tachycardia, normal axis, poor baseline with artifact
--- NOTE | 2024-08-16 14:30 | DI.RAD_ITS ---
Exam(s) XR PORTABLE CHEST AP EXAM: XR PORTABLE CHEST AP CLINICAL HISTORY: fever, altered mental status. TECHNIQUE: 2D digital imaging was performed. COMPARISON: CR,XR XR PORTABLE CHEST AP from 04/12/2024 FINDINGS: Single AP portable lordotic view. There is moderate cardiomegaly again noted. The mediastinum is not widened. There is a pulmonary venous hypertension pattern again noted, similar to previous. No Segun B lines . No airspace pulmonary edema. No pleural effusions. IMPRESSION: Mild-moderate cardiomegaly again noted. Increased bilateral lung field markings are most probably re lated to combination pulmonary venous hypertension pattern and lordotic portable technique. There do es not appear to be airspace consolidation nor pulmonary edema and there are no obvious pleural effus ions. Recommend follow-up nonportable PA and lateral views when clinically possible. DATA REPOSITORY: RADIATION DOSE DELIVERED:
--- NOTE | 2024-08-16 14:30 | DI.CT_ITS ---
Exam(s) CT ABDOMEN PELVIS W EXAM: CT ABDOMEN PELVIS W CLINICAL HISTORY: nasuea, abd pain, fever. TECHNIQUE: Imaging Protocol: Axial computed tomography images with coronal and sagittal reformatted images were created and reviewed CONTRAST MATERIAL: Intravenous: Omnipaque-350 100cc Oral: None COMPARISON: CT CT CHEST/ABD/PEL WO from 05/30/2024 FINDINGS: VISUALIZED LUNG BASES: No nodules nor pleural effusions evident. ABDOMEN: There is anasarca again noted in the anterior abdominal wall pannus a slightly above, with m inimal change from May 2024. GI: There is no ascites. There is, however, streaking in the central mesentery. There is evidence o f prior gastric sleeve bariatric surgery as well as prior cholecystectomy. The duodenum appears some what patulous but not obstructed. The 3rd and 4th parts of the duodenum exhibit normal size as do th e proximal left of center small-bowel loops distal to the ligament of Treitz. There is no thrombosis of the superior mesenteric vein.. LIVER: Liver appears somewhat cirrhotic. There no discrete focal hepatic lesions identified. No dil ated intrahepatic ducts. GALLBLADDER/BILIARY: Gallbladder is again noted be surgically absent. CBD is not dilated. PANCREAS: No evidence of pancreatic mass nor dilatation of the pancreatic duct. SPLEEN: Splenomegaly again noted. Craniocaudal length of the spleen is 14.5 cm. There are no discre te focal splenic lesions identified splenic and portal veins are patent. There are multiple collater al mesenteric vessels. The most prominent is on the right side and exhibits diameter of 1.1 cm. Pro bably indicates element of portal venous hypertension. These drain into the portal vein. There is n o thrombosis of the portal vein nor of the portal vein confluence. ADRENALS: There are no significant adrenal masses. KIDNEYS:No cysts evident. No solid renal masses. No calculi nor hydronephrosis.. ABDOMINAL AORTA: Abdominal aorta is not enlarged. Celiac and SMA are patent and the inferior mesente sherwin artery is also demonstrated to be patent. LYMPH NODES:There is no retroperitoneal nor paraaortic adenopathy. ABDOMINAL WALL: No evidence of significant anterior abdominal wall nor inguinal hernia. GI: There is no evidence of bowel obstruction, free air, nor abscess. Abundant fecal material noted throughout the colon. PELVIS: GI: There is some free fluid in the right-side of the pelvis (series 13/image 53, this in the region of the appendix but there is no obvious swollen appendix.The sigmoid is redundant but without evidenc e of significant diverticular disease. LYMPH NODES: There is no intrapelvic nor inguinal adenopathy. REPRODUCTIVE: Uterus is surgically absent. There is a 3.6 x 3.0 cm finding on the left side which is probably ovary, unchanged from previous. Right ovary is not identified. URINARY BLADDER: There is a Christine catheter in the bladder and the bladder is collapsed. OSSEOUS: No fractures. There is a deep Schmorl's node invagination in the superior endplate of L4 ag ain noted IMPRESSION: 1. Again noted is evidence of prior gastric sleeve bariatric surgery. The proximal half of the duode num is enlarged-patulous. The 3rd and 4th parts of the duodenum appear unremarkable. There is no sm all bowel obstruction. 2. Previous cholecystectomy. Biliary tree is not dilated. 3. Hepatic cirrhosis and splenomegaly again noted as well as numerous vascular collaterals which drai n into the portal vein consistent with portal venous hypertension. There is no thrombosis of the spl enic vein. 4. There is some free fluid in the right iliac fossa. The appendix does not, however, appear swollen . 5. There is a Christine catheter in the urinary bladder and the bladder is collapsed. Other findings as above. Findings discussed by phone with ER physician 08/16/2024 at 4:40 p.m. RADIATION DOSE DELIVERED: 1,551.72mGy.cm Total DLP DATA REPOSITORY: All CT scans at this facility are submitted to the National Radiology Data Registry (NRDR) Dose Index Registry (DIR) with the [employer] (A[employer]). RADIATION OPTIMIZATION: All CT scans at this facility use at least one of these dose optimization te chniques: automated exposure control; mA and/or kV adjustment per patient size (includes targeted exa ms where dose is matched to clinical indication); or iterative reconstruction.
--- NOTE | 2024-08-16 14:30 | DI.CT_ITS ---
Exam(s) CT HEAD WO EXAM: CT HEAD WO CLINICAL HISTORY: ams, fever. TECHNIQUE: Imaging Protocol: Axial computed tomography images with coronal and sagittal reformatted images were created and reviewed COMPARISON: CT CT HEAD WO from 01/23/2024 FINDINGS: There are no skull fractures. There is no fluid in the visualized paranasal sinuses. There is no evidence of intracranial hemorrhage, new mass effect, or shift of midline structures. Th ere are no extra-axial fluid collections. The ventricles are not enlarged or shifted and there is no blood within the ventricular system nor within the basal cisterns. Enhance sing pituitary adenoma extending into the suprasellar cistern is again noted, appearing simil ar to previous. There are no ring enhancing lesions in the brain and there is no abnormal meningeal enhancement, foca l nor diffuse. IMPRESSION: No acute intracranial findings on this noninfused CT scan of the brain. Stable appearance of the pituitary adenoma which again is noted to extend into the suprasellar cister n. RADIATION DOSE DELIVERED: 830.57mGy.cm Total DLP DATA REPOSITORY: All CT scans at this facility are submitted to the National Radiology Data Registry (NRDR) Dose Index Registry (DIR) with the [employer] (ACR). RADIATION OPTIMIZATION: All CT scans at this facility use at least one of these dose optimization te chniques: automated exposure control; mA and/or kV adjustment per patient size (includes targeted exa ms where dose is matched to clinical indication); or iterative reconstruction.
--- NOTE | 2024-08-16 14:53 | W.ED.GENAD ---
Discharge Plan Disposition Patient Disposition: Admit to [facility] Condition: Stable Discharge Details Chief Complaint: GenMedical Clinical Impression: Hypovolemia, Hypotension, Altered mental status Primary Care Provider: Jefe Coffey ED Provider: Fito Haynes Home Meds and New Rx's Prescriptions: No Action lactulose 10 gram/15 mL solution 30 g PO TID Ozempic 0.25 mg or 0.5 mg (2 mg/3 mL) pen injector 0.25 mg subcut QWEEK Rx Instructions: for 4 weeks oxycodone 5 mg tablet 5 mg PO Q6H PRN metformin 1,000 mg Tablet 1,000 mg PO BID ropinirole 2 mg Tablet 2 mg PO BID nystatin 100,000 unit/gram Powder 6,000,000 unit topical TID Qty: 60 0RF Rx Instructions: apply to reddened skin folds pantoprazole 40 mg Tablet,Delayed Release (Dr/Ec) 40 mg PO BID polyethylene glycol 3350 17 gram Powder In Packet 17 g PO DAILY PRN PRN (Reason: Constipation) Qty: 0 0RF oxybutynin chloride 5 mg Tablet 5 mg PO BID Qty: 60 0RF torsemide 20 mg tablet 40 mg PO DAILY Patient Comments: TAKE TWO TABLETS BY MOUTH EVERY DAY fluoxetine 40 mg capsule 40 mg PO DAILY ondansetron HCl 4 mg tablet 4 mg PO DAILY PRN Patient Comments: TAKE ONE TABLET BY MOUTH EVERY DAY NEEDED FOR NAUSEA doxepin 10 mg capsule 20 mg PO QHS Qty: 0 0RF Patient Comments: 20 mg once a day potassium chloride 20 mEq tablet extended release 20 meq PO TID Qty: 90 0RF Rx Instructions: with meals magnesium oxide 400 mg magnesium tablet 400 mg PO DAILY Qty: 30 0RF HPI General Date/Time Provider Initiated Documentation: 08/16/24 14:34. HPI Narrative: 69-year-old female history of hepatic encephalopathy, recent admission for electrolyte derangement and encephalopathy, presents with fever and tachycardia feeling generalized fatigue and chills was given fluids and Tylenol and route by EMS Related Data Home Medications ?Medication ?Instructions ?Recorded ?Confirmed metformin 1,000 mg tablet 1,000 mg PO BID 11/09/22 08/16/24 ropinirole 2 mg tablet 2 mg PO BID 11/09/22 08/16/24 pantoprazole 40 mg tablet,delayed 40 mg PO BID 12/15/22 08/16/24 release oxycodone 5 mg tablet 5 mg PO Q6H PRN 01/23/23 08/16/24 nystatin 100,000 unit/gram topical 6,000,000 unit topical TID #60 02/05/23 08/16/24 powder grams lactulose 10 gram/15 mL oral 30 g PO TID 06/26/23 08/16/24 solution polyethylene glycol 3350 17 gram 17 g PO DAILY PRN PRN Constipation 07/01/23 08/16/24 oral powder packet #0 ea oxybutynin chloride 5 mg tablet 5 mg PO BID #60 tabs 11/13/23 08/16/24 semaglutide 0.25 mg or 0.5 mg (2 0.25 mg subcut QWEEK 12/12/23 08/16/24 mg/3 mL) subcutaneous pen injector (Ozempic) torsemide 20 mg tablet 40 mg PO DAILY 01/23/24 08/16/24 fluoxetine 40 mg capsule 40 mg PO DAILY 01/24/24 08/16/24 doxepin 10 mg capsule 20 mg (2 x 10 mg) PO QHS #0 caps 04/16/24 08/16/24 ondansetron HCl 4 mg tablet 4 mg PO DAILY PRN 04/16/24 08/16/24 magnesium oxide 400 mg PO DAILY #30 tabs 06/02/24 08/16/24 potassium chloride 20 mEq 20 meq PO TID #90 tabs 06/02/24 08/16/24 tablet,extended release Previous Rx's ?Medication ?Instructions ?Recorded nystatin 100,000 unit/gram topical 6,000,000 unit topical TID #60 02/05/23 powder grams polyethylene glycol 3350 17 gram 17 g PO DAILY PRN PRN Constipation 07/01/23 oral powder packet #0 ea oxybutynin chloride 5 mg tablet 5 mg PO BID #60 tabs 11/13/23 doxepin 10 mg capsule 20 mg (2 x 10 mg) PO QHS #0 caps 04/16/24 magnesium oxide 400 mg PO DAILY #30 tabs 06/02/24 potassium chloride 20 mEq 20 meq PO TID #90 tabs 06/02/24 tablet,extended release Allergies Allergy/AdvReac Type Severity Reaction Status Date / Time Penicillins Allergy Severe Swelling/Ed Verified 08/10/24 21:00 sophie tramadol Allergy Severe Swelling/Ed Verified 08/10/24 21:00 sophie apricot Allergy Intermediate Hives Verified 08/10/24 21:00 ferrous sulfate Allergy Unknown Other (See Verified 08/10/24 21:00 Comment) raspberry Allergy Other (See Verified 08/10/24 21:00 Comment) vancomycin AdvReac Intermediate Other (See Verified 08/10/24 21:00 Comment) General Stated Complaint: GenMedical CHELA: 2 Exam Narrative Exam Narrative: Alert interactive although fatigued Pupils round reactive equal bilateral Slight drying of oromucosa Lungs clear bilaterally some faint coarse sounds without wheezing rales or rhonchi Tachycardia no murmurs rubs or gallops, skin warm to the touch Abdomen soft mildly distended and mildly tender without guarding or rebounding No signs of cranial thoracoabdominal or limb trauma Patient appears slightly confused to situation no focal deficits no cranial nerve deficits no focal weakness or numbness No peripheral edema appreciated Course Vital Signs Vital signs: Vital Signs Temperature 39.4 C H 08/16/24 14:15 Pulse 134 H 08/16/24 14:15 Blood Pressure 159/71 H 08/16/24 14:15 Pulse Oximetry 96 08/16/24 14:15 Temperature 39.4 C H 08/16/24 14:15 Temperature Source Temporal Artery Scan 08/16/24 14:15 Pulse 134 H 08/16/24 14:15 Blood Pressure 159/71 H 08/16/24 14:15 Blood Pressure Position Sitting 08/16/24 14:15 Pulse Oximetry 96 08/16/24 14:15 Oxygen Delivery Method Room Air 08/16/24 14:15 Oxygen Flow Rate 0 08/16/24 14:15 Lab/Test Results Lab/Test Results: 08/16/24 14:43 Blood Blood Culture - Pending 08/16/24 14:35 Blood Blood Culture - Pending Laboratory Tests Range/Units 08/16/24 14:35 VBG pH Cancelled VBG pCO2 Cancelled VBG pO2 Cancelled VBG HCO3 Cancelled VBG Total CO2 Cancelled VBG O2 Saturation Cancelled VBG Base Excess Cancelled Procedures Central Line Placement Right IJ: Patient Placed on Monitor/Pulse Ox: Yes Prep: mask, gown and gloves Central Line Prep: Chlorhexidine scrub Local Anesthetic: Lidocaine 1% Amount of anesthesia used (mL): 3 Ultrasound Used for Placement: Yes Central Line Lumen Inserted: triple Post Procedure: good blood return, all ports aspirated, flushed, capped and sutured in place with 3-0 nylon Post Procedure X-Ray: tip of catheter in good position Patient Tolerated Procedure: well Complications: none Medical Decision Making 69-year-old female recent admission for hepatic encephalopathy, electrolyte derangements presents with fever tachycardia generalized fatigue chills decreased p.o. intake nausea and altered mental status unknown last known normal, no focal neurologic deficits however patient is confused to situation, nonmeningeal does appear slightly dry with drying of oral mucosa, no peripheral edema, no wheezes rales or rhonchi on examination slight coarse breath sounds, abdomen slightly distended patient did have some nausea before arrival. Consider pneumonia versus viral illness versus UTI versus electrolyte derangement versus hyperammonemia versus intra-abdominal infectious process such as cholecystitis appendicitis colitis lower suspicion for meningitis or encephalitis given history and physical lower suspicion for intracranial hemorrhage mass or edema however given age and altered mental status will obtain CT head, will also obtain CT abdomen pelvis with contrast, formal chest x-ray, fluid bolus, empiric antibiotics patient does have multiple antibiotic allergies, will initiate linezolid for MRSA coverage given recent hospitalization, will initiate levofloxacin for Pseudomonas coverage given recent hospitalization, levofloxacin also has gram-negative coverage as well and anaerobic coverage. Close reassessment of mental status and hemodynamic status. 17: 01 mental status improving more interactive more lucid, heart rate improving with fluid hydration, of note patient has a low diastolic blood pressure cuff has been adjusted and manual pressure has been taken. Has tolerated fluid will continue with fluid bolus consider hypovolemia. Will initiate pressors and central line if not improving. Bedside ultrasound showing normal ejection fraction hyperdynamic LV without wall motion abnormality or valvular dysfunction. No pericardial effusion no dilation or collapsing of RV. 18: 16 persistent hypotension despite 2 L crystalloid administered, will start peripheral norepinephrine at 5 mcg/min, will place central line. Have added lactate and troponin as well as BNP. Admission to ICU likely 18: 52 patient responding to pressors. Blood pressure 134/32 currently heart rate 109, consider lactate and elevated troponin related to low perfusion state, will trend troponin if large increase in troponin value will consult cardiology team otherwise high clinical suspicion for demand troponin leak in the setting of persistent hypotension, patient has no chest pain no ischemic changes on EKG and bedside echo shows no wall motion abnormalities with normal ejection fraction 19: 32 patient tolerated right sterile IJ placement without issue. Maintaining hemodynamics. Awaiting repeat troponin and BNP to determine disposition 20: 15 mental status continues to improve. Patient alert oriented interactive communicative. Defervescing. Maintaining hemodynamics on pressors. Uptrending troponin and lactate, repeat EKG no signs of ischemic changes. Patient sinus tachycardia to 104. Will trend troponin if continues to uptrend will discuss case with cardiology at [facility] however I still have a strong clinical suspicion that patient still is hypovolemic and would benefit from further fluid resuscitation. Have added additional liter of crystalloid. Will reassess close 21: 17 mental status stable. Arousable to voice interactive, cooperative. Hemodynamically improving. High clinical suspicion for hypovolemia and infectious process. Will admit to ICU for close monitoring of mental status and hemodynamic status Quality:SDOH Health Related Social Needs: Health related social needs inadequate housing(Z59.1), food insecurity(Z59.41), transportation insecurity(Z59.82), material hardship(utilities)(Z59.87) Critical Care Time Critical Care Time Critical Care Time: Yes Total Critical Care Time: 30 Attestation: Critical care time spent at bedside assessing patient interpreting labs interpreting imaging coordinating care for patient requiring ICU level admission for hypovolemia and shock PFSH All Active Problems (Updated 08/16/24 @ 21:19 by Fito Haynes MD) Altered mental status (Acute) Hypotension (Acute) Hypovolemia (Acute) Excess skin of eyelid (Acute) 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 Chronically elevated ammonia level. On lactulose. Liver cirrhosis secondary to SALCIDO Pituitary cyst Hypersomnia GAVE (gastric antral vascular ectasia) JAYDEN (obstructive sleep apnea) Acquired arteriovenous malformation Atypical angina Biliary dyskinesia Lung nodule Submucosal neoplasm of stomach Anemia Dermoid cyst History of peptic ulcer disease Osteoarthritis Pancreatitis Hypertensive disorder Hepatic encephalopathy Edema Atrophy of vagina Atrophic vaginitis Actinic keratosis Pituitary adenoma Restless legs Neoplasm of parotid gland Lumbar spondylosis Lesion of esophagus Dyslipidemia Depressive disorder Crohn's disease Chronic low back pain Anxiety Anemia Cirrhosis Type 2 diabetes mellitus SALCIDO (nonalcoholic steatohepatitis) CHF (congestive heart failure) Anasarca Surgical History History of oophorectomy, unilateral History of rotator cuff surgery bilateral History of total knee arthroplasty bilateral History of sleeve gastrectomy History of hysterectomy Family History Brother Cancer Lung Alcohol use disorder 2 older brothers Social History Smoking/Tobacco Use Status: Never Smoking risk assessment performed?: Yes Alcohol Intake: never Drug use: Never Substance use type: does not use Housing: house Current gender identity: female Do you feel safe at home: Yes Do you feel safe in your relationship?: Yes Additional Social history: Lives with Arslan, and son in [place]. Moved from [place] in 2019. Has a dog and 7 pet birds.
[2024-08-16 14:56] LABS: HCT 32.3 % (36.0-46.0); HGB 10.2 g/dL (11.2-15.7); MCH 29.8 pg (27.0-33.0); MCHC 31.6 % (32.0-36.0); MCV 94 fL (80-95); MPV 9.9 fL (8.0-11.0); Platelet Count 107 10^3/uL (130-400); RBC 3.42 10^6/uL (3.93-5.22); RDW 16.2 % (11.7-14.6); RDW-SD 55.4 fL; WBC 3.05 10^3/uL (4.4-10.8)
[2024-08-16 14:59] LABS: pCO2 (Venous) 42 mmHg (41-51); pH (Venous) 7.36 (7.31-7.41)
[2024-08-16 15:00] LABS: BE (Venous) -1 mmol/L (-2-3); HCO3 (Venous) 24 mmol/L (23-28); O2 Sat (Venous) 78 %; TCO2 (Venous) 25 mmol/L (24-29); pO2 (Venous) 44 mmHg
[2024-08-16 15:08] LABS: Ammonia 106 umol/L (11-32)
[2024-08-16] MEDS: LINEZOLID 600 MG/300 ML BAG 300 MG IVPB (15:13)
[2024-08-16 15:18] LABS: INR 1.2 (0.9-1.1); PTT Activated 25.4 sec (23.6-32.8); Prothrombin Time 11.8 sec (9.1-11.1)
[2024-08-16 15:21] LABS: Absolute Basophil Count 0.03 10^3/uL (0.0-0.2); Absolute Eosinophil Count 0.06 10^3/uL (0.0-0.7); Absolute Lymphocyte Count 0.31 10^3/uL (1.2-3.4); Atypical Lymphocytes % 1 %; Bands % 10 %
[2024-08-16 15:22] LABS: Absolute Neutrophil Count 2.65 10^3/uL (1.2-6.7); Anisocytosis 1+; Diff Comment Manual Differential
[2024-08-16 15:27] LABS: ALT 33 U/L (14-59); AST 47 U/L (15-37); Albumin 2.6 g/dL (3.4-5.0); Alkaline Phosphatase 276 U/L (46-116); Anion Gap 10.7 mmol/L (3-11); BUN 19 mg/dL (7-18); Bilirubin, Total 1.27 mg/dL (0.2-1.0); CO2 27.3 mmol/L (21.0-32.0); CREATININE 1.1 mg/dL (0.55-1.02); Calcium 8.7 mg/dL (8.5-10.1); Chloride 105 mmol/L (98-107); ETHANOL BLOOD 3.9 mg/dL (<10); Estimated GFR 54.39 (mL/min/1.73m2); Glucose 237 mg/dL (74-106); Lipase 45 U/L (16-77); Magnesium 1.6 mg/dL (1.8-2.4); Potassium 4.4 mmol/L (3.5-5.1); Sodium 143 mmol/L (136-145); TSH (W/Ref FT4) 1.17 uIU/mL (0.36-3.74); Total Protein 6.2 g/dL (6.4-8.2)
[2024-08-16] MEDS: levoFLOXacin 750 MG/150 ML BAG 100 MG IVPB (15:32)
[2024-08-16 15:33] LABS: *AMPHETAMINES SCREEN URINE Negative (Negative); *BARBITURATES SCREEN URINE Negative (Negative); *BENZODIAZEPINES SCREEN URINE Negative (Negative); Cannabinoids THC Negative (Negative); Cocaine Screen,Urine Negative (Negative); METHADONE URINE SCREEN Negative (Negative); OPIATES URINE SCREEN Negative (Negative)
[2024-08-16 15:36] LABS: Tricyclic Antidepressants Positive (Negative)
[2024-08-16 15:39] LABS: Bilirubin Negative (Negative); Blood Trace-intact (Negative); Clarity Clear (Clear); Glucose 500 mg/dL (Negative); Ketones Negative (Negative); Leukocyte Esterase Negative (Negative); Nitrite Positive (Negative); Specific Gravity 1.025 (1.005-1.025); Urobilinogen 0.2 mg/dL (Up to 0.2)
[2024-08-16] MEDS: Normal Saline - Diluent 50 ML VIAL IJ (15:46)
[2024-08-16] MEDS: Omnipaque 350 MG/ML 100 ML BTL IJ (15:48)
[2024-08-16 15:51] LABS: Bacteria Many HPF (Negative); Epithelial Cells Rare HPF (Negative); RBC 0-2 HPF (0-2)
[2024-08-16 15:52] LABS: C & S Indicated? No; Casts Negative LPF (Negative); Crystals Negative HPF (Negative); Mucus Negative (Negative)
[2024-08-16 16:21] LABS: COVID-19 PCR Negative (Negative); Influenza A PCR Negative (Negative); Influenza B PCR Negative (Negative); RSV PCR Negative (Negative)
[2024-08-16 16:22] LABS: Source Nasopharynx
[2024-08-16] MEDS: MAGNESIUM SULFATE 1 GM/100 ML BAG IV_INF (16:26)
[2024-08-16] MEDS: Normal Saline 1,000 ML 999 ML IV (17:21)
[2024-08-16] MEDS: Normal Saline 500 ML 1000 ML IV ×2 (17:29)
[2024-08-16] MEDS: Norepinephrine in D5W 8 MG/250 ML BAG 9.375 MG IV (18:17)
[2024-08-16 18:19] LABS: Lactate 3.94 mmol/L (0.9-1.7)
[2024-08-16] MEDS: Normal Saline 1,000 ML 150 ML IV (18:27)
[2024-08-16 18:34] LABS: Troponin I 472 ng/L (<or=51)
--- NOTE | 2024-08-16 19:15 | DI.RAD_ITS ---
Exam(s) XR PORTABLE CHEST AP POST LINE EXAM: XR PORTABLE CHEST AP POST LINE CLINICAL HISTORY: Confirm central line placement TECHNIQUE: 2D digital imaging was performed of the chest. One image was obtained. An AP view was ob tained. COMPARISON: CR XR PORTABLE CHEST AP from 08/16/2024 FINDINGS: MEDIASTINUM: Normal. HEART: Upper limits of normal in size. PULMONARY VASCULATURE: There is pulmonary venous congestion. LUNGS: No focal consolidating infiltrates. PLEURAL SPACE: No pleural effusion or pneumothorax. BONE:Within normal limits for the patient's age. OTHER FINDINGS:There has been interval placement of a central venous catheter. The tip is in good po sition at the junction of the superior vena cava and right atrium. IMPRESSION: 1. The right IJ catheter is in good position at the junction of the superior vena cava and right atri um. 2. Findings suggestive of pulmonary venous congestion. 3. No focal consolidating infiltrates. DATA REPOSITORY: RADIATION DOSE DELIVERED:
[2024-08-16 19:57] LABS: NT-proBNP 462 pg/mL (<300); Troponin I 557 ng/L (<or=51)
--- NOTE | 2024-08-16 20:00 | RT.EKG_ITS ---
APPROVED REPORT Exam: Resting ECG Reason for Exam: elevated trop Patient Location: E HR:104 bpm ECG Measurements Heart Rate [address] 154 P 69 QRSd 95 QRS 41 QT 382 T 43 QTc 502 Conclusion Sinus tachycardia...rate> 99 Prolonged QT interval...QTc >500mS Sinus tachycardia normal axis, no acute ischemic changes, evidence of prolonged QT
[2024-08-16] MEDS: Normal Saline 1,000 ML 1000 ML IV (20:21)
[2024-08-16 21:10] LABS: Troponin I 581 ng/L (<or=51)
--- NOTE | 2024-08-16 21:48 | DI.VRAD_ITS ---
PROCEDURE INFORMATION: Exam: XR Chest Exam date and time: 08/16/2024 7:34 PM Age: 69 years old Clinical indication: Device placement; Other: Post central line; Patient HX: Central line placement TECHNIQUE: Imaging protocol: Radiologic exam of the chest. Views: 1 view. COMPARISON: CR XR PORTABLE CHEST AP 08/16/2024 2:48 PM FINDINGS: Limitations: The examination is underpenetrated. Tubes, catheters and devices: There is a right internal jugular central venous catheter in-situ with its tip at the cavoatrial junction. Lungs: There is central vascular engorgement with hazy indistinctness of the vascular margins suspicious for interstitial pulmonary edema. No region of focal pulmonary consolidation is seen. Pleural spaces: No pleural effusion or pneumothorax is demonstrated. Heart/Mediastinum: The heart appears normal in size. 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 There are osteophytes extending along the thoracic spinal margin. IMPRESSION: Right internal jugular central venous catheter in-situ with its tip projecting over the cavoatrial junction. Dictated and Authenticated by: Randell Shields MD. Ordering:ABRAHAM Payton MD
[2024-08-16 22:01] LABS: Lactate 3.84 mmol/L (0.9-1.7)
--- NOTE | 2024-08-16 22:48 | W.PM.HP.N ---
Date of service: 08/16/24 Time of Service: 22:49 Assessment and Plan Assessment and plan (1) Severe sepsis: Status: Acute Assessment and plan: Severe sepsis on the basis of presentation with fever, tachycardia, hypotension. Appears to be urinary source. Empiric therapy with linezolid and levofloxacin. Blood cultures and urine cultures are pending. Monitor in the ICU for further vital sign abnormalities. Thus far has responded to blood pressure support with Levophed. (2) Hypotension: Status: Acute Assessment and plan: Presumed secondary to sepsis syndrome. She has responded well to IV fluids and norepinephrine. Will monitor in the ICU. (3) Hypovolemia: Status: Acute Assessment and plan: Secondary to the lactulose induced diarrhea. She has apparently not been able to keep up with her fluid losses. She has responded to IV fluid hydration. Will monitor p.o. intake and ongoing losses. (4) Generalized pruritus: Status: Acute Assessment and plan: Unclear the etiology of her generalized pruritus. She is on nystatin powder for skin folds. There are no significant rashes. She does not appear to be in renal failure. (5) Hyperammonemia: Status: Acute Assessment and plan: Ammonia level continues to be elevated at 106. This is related to her nonalcoholic steatohepatitis and cirrhosis. Continue lactulose (6) Encephalopathy: Status: Acute Assessment and plan: No evidence of significant encephalopathy on today's exam. Will continue to monitor. (7) Liver cirrhosis secondary to SALCIDO: Status: Acute Assessment and plan: Long-term issues with SALCIDO. Weight control, diabetes control, monitor for signs and symptoms of chronic liver failure. (8) Type 2 diabetes mellitus: Status: Acute Assessment and plan: Continue present diabetic meds. Will check her blood sugars and follow a diabetic diet. Moderate sliding scale insulin coverage. Qualifiers: Diabetes mellitus terminal block assembler insulin use: without terminal block assembler use Diabetes mellitus complication status: without complication Qualified Code(s): E11.9 - Type 2 diabetes mellitus without complications History of Present Illness History of Present Illness Chief Complaint: Sepsis Narrative: 69-year-old female presents with fever, tachycardia, generalized fatigue, and chills. She has had decreased oral intake for few days now. She presented by ambulance. Initial vital signs showed a heart rate of 134 with a blood pressure 159/71, temperature 39.4. She received IV fluids and blood cultures. Her blood pressure dropped to 70/20 and a central line was placed and she was started on norepinephrine. Workup included head CT, abdominal CT, pelvic CT, chest x-ray. A [id number] ultrasound was reassuring showing a hyperdynamic heart with a normal EF. White count was normal at 3.05 thousand troponin was elevated at 472 with a repeat of 557 followed by 581. EKG shows sinus rhythm at [address] to T changes the QTc was 502. She was not complaining of any chest pain and this was felt to be related to demand ischemia. Lactate was elevated at 3.94, 3.90, 3.84. She had previous history of hepatic encephalopathy but her mental status appeared to be at baseline. She has been taking lactulose and having loose stools. After IV fluids and blood pressure stabilization she states she was feeling quite a bit better. She was started on empiric antibiotic therapy and transferred to the intensive care unit for further monitoring. Presumptive diagnosis sepsis syndrome, urinary source. Review of Systems Narrative: Her main complaints were as per HPI. She also complains of severe pruritus. She states she has itching everywhere but particularly points to her right inguinal crease/pannus. She states her breathing is much better since she arrived. She has not had any complaints of chest pain. She has loose stools secondary to lactulose. PFSH All Active Problems (Updated 08/16/24 @ 23:04 by Jamal Mendoza MD) Severe sepsis (Acute) Type 2 diabetes mellitus (Acute) Liver cirrhosis secondary to SALCIDO (Acute) Encephalopathy (Acute) Presumed secondary to chronic liver disease. Chronically elevated ammonia level. On lactulose. 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 Left clavicle Excess skin of eyelid Pituitary cyst Hypersomnia GAVE (gastric antral vascular ectasia) JAYDEN (obstructive sleep apnea) Acquired arteriovenous malformation Atypical angina Biliary dyskinesia Lung nodule Submucosal neoplasm of stomach Anemia Dermoid cyst History of peptic ulcer disease Osteoarthritis Pancreatitis Hypertensive disorder Hepatic encephalopathy Edema Atrophy of vagina Atrophic vaginitis Actinic keratosis Pituitary adenoma Restless legs Neoplasm of parotid gland Lumbar spondylosis Lesion of esophagus Dyslipidemia Depressive disorder Crohn's disease Chronic low back pain Anxiety Anemia Cirrhosis SALCIDO (nonalcoholic steatohepatitis) CHF (congestive heart failure) Anasarca Surgical History History of oophorectomy, unilateral History of rotator cuff surgery bilateral History of total knee arthroplasty bilateral History of sleeve gastrectomy History of hysterectomy Family History Brother Cancer Lung Alcohol use disorder 2 older brothers Social History (Updated 08/16/24 @ 23:05 by Jamal Mendoza MD) Smoking/Tobacco Use Status: Never Smoking risk assessment performed?: Yes Alcohol Intake: never Drug use: Never Substance use type: does not use Housing: house Current gender identity: female Do you feel safe at home: Yes Do you feel safe in your relationship?: Yes Additional Social history: Lives with Arslan, and son in [place]. Moved from [place] in 2019. Has a dog and 8 pet birds. Meds Allergies and Home Medications Allergies Allergy/AdvReac Type Severity Reaction Status Date / Time Penicillins Allergy Severe Swelling/Ed Verified 08/10/24 21:00 sophie tramadol Allergy Severe Swelling/Ed Verified 08/10/24 21:00 sophie apricot Allergy Intermediate Hives Verified 08/10/24 21:00 ferrous sulfate Allergy Unknown Other (See Verified 08/10/24 21:00 Comment) raspberry Allergy Other (See Verified 08/10/24 21:00 Comment) vancomycin AdvReac Intermediate Other (See Verified 08/10/24 21:00 Comment) Home Medications ?Medication ?Instructions ?Recorded ?Confirmed ?Type metformin 1,000 mg tablet 1,000 mg PO BID 11/09/22 08/16/24 History ropinirole 2 mg tablet 2 mg PO BID 11/09/22 08/16/24 History pantoprazole 40 mg tablet,delayed 40 mg PO BID 12/15/22 08/16/24 History release oxycodone 5 mg tablet 5 mg PO Q6H PRN 01/23/23 08/16/24 History nystatin 100,000 unit/gram topical 6,000,000 unit topical TID #60 02/05/23 08/16/24 Rx powder grams lactulose 10 gram/15 mL oral 30 g PO TID 06/26/23 08/16/24 History solution polyethylene glycol 3350 17 gram 17 g PO DAILY PRN PRN Constipation 07/01/23 08/16/24 Rx oral powder packet #0 ea oxybutynin chloride 5 mg tablet 5 mg PO BID #60 tabs 11/13/23 08/16/24 Rx semaglutide 0.25 mg or 0.5 mg (2 0.25 mg subcut QWEEK 12/12/23 08/16/24 History mg/3 mL) subcutaneous pen injector (Ozempic) torsemide 20 mg tablet 40 mg PO DAILY 01/23/24 08/16/24 History fluoxetine 40 mg capsule 40 mg PO DAILY 01/24/24 08/16/24 History doxepin 10 mg capsule 20 mg (2 x 10 mg) PO QHS #0 caps 04/16/24 08/16/24 Rx ondansetron HCl 4 mg tablet 4 mg PO DAILY PRN 04/16/24 08/16/24 History magnesium oxide 400 mg PO DAILY #30 tabs 06/02/24 08/16/24 Rx potassium chloride 20 mEq 20 meq PO TID #90 tabs 06/02/24 08/16/24 Rx tablet,extended release Exam Narrative Exam Narrative: On exam she is lying comfortably with her eyes closed but is fairly easily aroused. She makes eye contact and converses freely. Her conversation generally makes sense. She spent some time trying to show me pictures of her birds. She did not appear to be in any respiratory distress with nasal cannula oxygen in place. Her breathing was nonlabored and she had good air movement on the right and left without any significant adventitial breath sounds. Heart was slightly tacky with a 1-2/6 short systolic murmur heard best in the left upper sternal border. Her abdomen was quite massively obese but overall soft and minimally tender. There was a slight area of tenderness in the mid lower abdomen without any associated masses. Her lower extremities were well-perfused with good DP and PT pulses. There were no significant rashes seen on her legs. She points to her right inguinal region as an area that is particularly itchy but there was no significant rash to be seen on the surface. Neurologically she seems to be at her baseline, speech was clear, moving all extremities. Results Imaging Chest x-ray: report reviewed (Cardiomegaly, no infiltrates) Abdomen CT scan report/results: report reviewed (Splenomegaly, no other masses) EKG: report reviewed and image reviewed (Sinus rhythm at [address] to T changes) Labs 08/16/24 14:35 08/16/24 14:35 Labs: Laboratory Results - last 24 hr 08/16/24 08/16/24 08/16/24 14:35 14:35 14:35 WBC 3.05 L RBC 3.42 L Hgb 10.2 L Hct 32.3 L MCV 94 MCH 29.8 MCHC 31.6 L RDW 16.2 H Plt Count 107 L MPV 9.9 Immature Gran % 0.0 Neutrophils % 77.0 Band Neutrophils % 10 Lymphocytes % 9.0 Atypical Lymphs % 1 Monocytes % 0.0 Eosinophils % 2.0 Basophils % 1.0 Nucleated RBC % 0.0 Absolute Neutrophils 2.65 Absolute Lymphocytes 0.31 L Absolute Monocytes 0.00 L Absolute Eosinophils 0.06 Absolute Basophils 0.03 RBC Morphology See Below Anisocytosis 1+ PT 11.8 H INR 1.2 H APTT 25.4 Sample Site Cancelled ABG pH Cancelled ABG pCO2 Cancelled ABG pO2 Cancelled ABG HCO3 Cancelled ABG Total CO2 Cancelled ABG O2 Saturation Cancelled ABG Base Excess Cancelled VBG pH Cancelled 7.36 VBG pCO2 Cancelled 42 VBG pO2 Cancelled VBG HCO3 VBG Total CO2 VBG O2 Saturation VBG Base Excess VBG Lactate FiO2 FiO2 (liters per min) Sodium Potassium Chloride Carbon Dioxide Anion Gap BUN Creatinine Est GFR (CKD-EPI 2020) Glucose Calcium Magnesium Total Bilirubin AST ALT Alkaline Phosphatase Ammonia Troponin I NT-Pro-B Natriuret Pep Total Protein Albumin Lipase TSH Urine Color Urine Clarity Urine pH Ur Specific [place] Urine Protein Urine Ketones Urine Blood Urine Nitrite Urine Bilirubin Urine Urobilinogen Ur Leukocyte Esterase Urine RBC Urine WBC Ur Epithelial Cells Urine Crystals Urine Bacteria Urine Casts Urine Mucus Ur Culture Indicated? Urine Glucose Urine Opiates Screen Urine Methadone Screen Ur Barbiturates Screen Ur Tricyclics Screen Ur Amphetamines Screen U Benzodiazepines Scrn Urine Cocaine Screen Ur THC Screen Ethyl Alcohol COVID-19 Source SARS-CoV-2 (PCR) Influenza Type A (PCR) Influenza Type B (PCR) RSV (PCR) 08/16/24 08/16/24 08/16/24 14:35 14:35 14:35 WBC RBC Hgb Hct MCV MCH MCHC RDW Plt Count MPV Immature Gran % Neutrophils % Band Neutrophils % Lymphocytes % Atypical Lymphs % Monocytes % Eosinophils % Basophils % Nucleated RBC % Absolute Neutrophils Absolute Lymphocytes Absolute Monocytes Absolute Eosinophils Absolute Basophils RBC Morphology Anisocytosis PT INR APTT Sample Site ABG pH ABG pCO2 ABG pO2 ABG HCO3 ABG Total CO2 ABG O2 Saturation ABG Base Excess VBG pH VBG pCO2 VBG pO2 44 VBG HCO3 Cancelled 24 VBG Total CO2 Cancelled 25 VBG O2 Saturation Cancelled VBG Base Excess VBG Lactate FiO2 FiO2 (liters per min) Sodium Potassium Chloride Carbon Dioxide Anion Gap BUN Creatinine Est GFR (CKD-EPI 2020) Glucose Calcium Magnesium Total Bilirubin AST ALT Alkaline Phosphatase Ammonia Troponin I NT-Pro-B Natriuret Pep Total Protein Albumin Lipase TSH Urine Color Urine Clarity Urine pH Ur Specific [place] Urine Protein Urine Ketones Urine Blood Urine Nitrite Urine Bilirubin Urine Urobilinogen Ur Leukocyte Esterase Urine RBC Urine WBC Ur Epithelial Cells Urine Crystals Urine Bacteria Urine Casts Urine Mucus Ur Culture Indicated? Urine Glucose Urine Opiates Screen Urine Methadone Screen Ur Barbiturates Screen Ur Tricyclics Screen Ur Amphetamines Screen U Benzodiazepines Scrn Urine Cocaine Screen Ur THC Screen Ethyl Alcohol COVID-19 Source SARS-CoV-2 (PCR) Influenza Type A (PCR) Influenza Type B (PCR) RSV (PCR) 08/16/24 08/16/24 08/16/24 14:35 14:35 14:35 WBC RBC Hgb Hct MCV MCH MCHC RDW Plt Count MPV Immature Gran % Neutrophils % Band Neutrophils % Lymphocytes % Atypical Lymphs % Monocytes % Eosinophils % Basophils % Nucleated RBC % Absolute Neutrophils Absolute Lymphocytes Absolute Monocytes Absolute Eosinophils Absolute Basophils RBC Morphology Anisocytosis PT INR APTT Sample Site ABG pH ABG pCO2 ABG pO2 ABG HCO3 ABG Total CO2 ABG O2 Saturation ABG Base Excess VBG pH VBG pCO2 VBG pO2 VBG HCO3 VBG Total CO2 VBG O2 Saturation 78 VBG Base Excess Cancelled -1 VBG Lactate Cancelled FiO2 Cancelled FiO2 (liters per min) Cancelled Sodium 143 Potassium 4.4 Chloride 105 Carbon Dioxide 27.3 Anion Gap 10.7 BUN 19 H Creatinine 1.1 H Est GFR (CKD-EPI 2020) 54.39 Glucose 237 H Calcium 8.7 Magnesium 1.6 L Total Bilirubin 1.27 H AST 47 H ALT 33 Alkaline Phosphatase 276 H Ammonia Troponin I NT-Pro-B Natriuret Pep Total Protein 6.2 L Albumin 2.6 L Lipase 45 TSH 1.17 Cancelled Urine Color Urine Clarity Urine pH Ur Specific [place] Urine Protein Urine Ketones Urine Blood Urine Nitrite Urine Bilirubin Urine Urobilinogen Ur Leukocyte Esterase Urine RBC Urine WBC Ur Epithelial Cells Urine Crystals Urine Bacteria Urine Casts Urine Mucus Ur Culture Indicated? Urine Glucose Urine Opiates Screen Urine Methadone Screen Ur Barbiturates Screen Ur Tricyclics Screen Ur Amphetamines Screen U Benzodiazepines Scrn Urine Cocaine Screen Ur THC Screen Ethyl Alcohol 3.9 COVID-19 Source SARS-CoV-2 (PCR) Influenza Type A (PCR) Influenza Type B (PCR) RSV (PCR) 08/16/24 08/16/24 08/16/24 14:49 15:10 15:32 WBC RBC Hgb Hct MCV MCH MCHC RDW Plt Count MPV Immature Gran % Neutrophils % Band Neutrophils % Lymphocytes % Atypical Lymphs % Monocytes % Eosinophils % Basophils % Nucleated RBC % Absolute Neutrophils Absolute Lymphocytes Absolute Monocytes Absolute Eosinophils Absolute Basophils RBC Morphology Anisocytosis PT INR APTT Sample Site ABG pH ABG pCO2 ABG pO2 ABG HCO3 ABG Total CO2 ABG O2 Saturation ABG Base Excess VBG pH VBG pCO2 VBG pO2 VBG HCO3 VBG Total CO2 VBG O2 Saturation VBG Base Excess VBG Lactate FiO2 FiO2 (liters per min) Sodium Potassium Chloride Carbon Dioxide Anion Gap BUN Creatinine Est GFR (CKD-EPI 2020) Glucose Calcium Magnesium Total Bilirubin AST ALT Alkaline Phosphatase Ammonia 106 H Troponin I NT-Pro-B Natriuret Pep Total Protein Albumin Lipase TSH Urine Color Yellow Urine Clarity Clear Urine pH 5.0 Ur Specific [place] 1.025 Urine Protein 30 H Urine Ketones Negative Urine Blood Trace-intact H Urine Nitrite Positive H Urine Bilirubin Negative Urine Urobilinogen 0.2 Ur Leukocyte Esterase Negative Urine RBC 0-2 Urine WBC 5-10 Ur Epithelial Cells Rare Urine Crystals Negative Urine Bacteria Many Urine Casts Negative Urine Mucus Negative Ur Culture Indicated? No Urine Glucose 500 H Urine Opiates Screen Negative Urine Methadone Screen Negative Ur Barbiturates Screen Negative Ur Tricyclics Screen Positive A Ur Amphetamines Screen Negative U Benzodiazepines Scrn Negative Urine Cocaine Screen Negative Ur THC Screen Negative Ethyl Alcohol COVID-19 Source Nasopharynx SARS-CoV-2 (PCR) Negative Influenza Type A (PCR) Negative Influenza Type B (PCR) Negative RSV (PCR) Negative 08/16/24 08/16/24 08/16/24 18:04 19:30 20:00 WBC RBC Hgb Hct MCV MCH MCHC RDW Plt Count MPV Immature Gran % Neutrophils % Band Neutrophils % Lymphocytes % Atypical Lymphs % Monocytes % Eosinophils % Basophils % Nucleated RBC % Absolute Neutrophils Absolute Lymphocytes Absolute Monocytes Absolute Eosinophils Absolute Basophils RBC Morphology Anisocytosis PT INR APTT Sample Site ABG pH ABG pCO2 ABG pO2 ABG HCO3 ABG Total CO2 ABG O2 Saturation ABG Base Excess VBG pH VBG pCO2 VBG pO2 VBG HCO3 VBG Total CO2 VBG O2 Saturation VBG Base Excess VBG Lactate 3.94 H* 3.90 H* FiO2 FiO2 (liters per min) Sodium Potassium Chloride Carbon Dioxide Anion Gap BUN Creatinine Est GFR (CKD-EPI 2020) Glucose Calcium Magnesium Total Bilirubin AST ALT Alkaline Phosphatase Ammonia Troponin I 472 H* 557 H* NT-Pro-B Natriuret Pep 462 H Total Protein Albumin Lipase TSH Urine Color Urine Clarity Urine pH Ur Specific [place] Urine Protein Urine Ketones Urine Blood Urine Nitrite Urine Bilirubin Urine Urobilinogen Ur Leukocyte Esterase Urine RBC Urine WBC Ur Epithelial Cells Urine Crystals Urine Bacteria Urine Casts Urine Mucus Ur Culture Indicated? Urine Glucose Urine Opiates Screen Urine Methadone Screen Ur Barbiturates Screen Ur Tricyclics Screen Ur Amphetamines Screen U Benzodiazepines Scrn Urine Cocaine Screen Ur THC Screen Ethyl Alcohol COVID-19 Source SARS-CoV-2 (PCR) Influenza Type A (PCR) Influenza Type B (PCR) RSV (PCR) 08/16/24 08/16/24 20:41 21:51 WBC RBC Hgb Hct MCV MCH MCHC RDW Plt Count MPV Immature Gran % Neutrophils % Band Neutrophils % Lymphocytes % Atypical Lymphs % Monocytes % Eosinophils % Basophils % Nucleated RBC % Absolute Neutrophils Absolute Lymphocytes Absolute Monocytes Absolute Eosinophils Absolute Basophils RBC Morphology Anisocytosis PT INR APTT Sample Site ABG pH ABG pCO2 ABG pO2 ABG HCO3 ABG Total CO2 ABG O2 Saturation ABG Base Excess VBG pH VBG pCO2 VBG pO2 VBG HCO3 VBG Total CO2 VBG O2 Saturation VBG Base Excess VBG Lactate 3.84 H* FiO2 FiO2 (liters per min) Sodium Potassium Chloride Carbon Dioxide Anion Gap BUN Creatinine Est GFR (CKD-EPI 2020) Glucose Calcium Magnesium Total Bilirubin AST ALT Alkaline Phosphatase Ammonia Troponin I 581 H* NT-Pro-B Natriuret Pep Total Protein Albumin Lipase TSH Urine Color Urine Clarity Urine pH Ur Specific [place] Urine Protein Urine Ketones Urine Blood Urine Nitrite Urine Bilirubin Urine Urobilinogen Ur Leukocyte Esterase Urine RBC Urine WBC Ur Epithelial Cells Urine Crystals Urine Bacteria Urine Casts Urine Mucus Ur Culture Indicated? Urine Glucose Urine Opiates Screen Urine Methadone Screen Ur Barbiturates Screen Ur Tricyclics Screen Ur Amphetamines Screen U Benzodiazepines Scrn Urine Cocaine Screen Ur THC Screen Ethyl Alcohol COVID-19 Source SARS-CoV-2 (PCR) Influenza Type A (PCR) Influenza Type B (PCR) RSV (PCR) Last Vital Signs Temp 37.3 C 08/16/24 22:23 Pulse 99 H 08/16/24 22:21 Resp 18 08/16/24 22:22 BP 112/78 08/16/24 22:21 Pulse Ox 99 08/16/24 22:22 Time Spent Time spent with Patient: 40-54 minutes Time was spent: preparing to see the patient(eg.review tests), obtaining and/or reviewing separately otained hiistory, ordering medications,tests, procedures, referring, communicating with other health home health care physician and indepentently interpreting results
[2024-08-17] VITALS (127 sets, daily range): BP systolic 85–155; BP diastolic 32–102; PULSE 75–115; RESP 12–27; TEMP 36.9–38.1; O2SAT 89–99
[2024-08-17] MEDS: Normal Saline 1,000 ML 125 ML IV ×3 (00:56→19:46)
[2024-08-17] MEDS: Doxepin 10 MG CAP 20 MG PO ×2 (00:56→20:45)
[2024-08-17] MEDS: Enoxaparin 40 MG/0.4 ML SYR SC ×2 (00:57→20:47)
[2024-08-17] MEDS: rOPINIRole 1 MG TAB 2 MG PO ×2 (01:17→20:45)
[2024-08-17] MEDS: LINEZOLID 600 MG/300 ML BAG 300 MG IVPB (04:03)
--- NOTE | 2024-08-17 06:17 | DM INPTCON_ITS ---
Date of service: 08/17/24 Time of Service: 06:17 Diabetes Inpatient Consult Reason for Visit: consult request - diabetes education and mgt DESCRIPTION/ASSESSMENT: Pt is 69yo female who has had multiple admissions - most recently has been admitted during the months of this May, June and was discharged on 08/11/24 from her most recent prior admission. Pt and her (also managing diabetes) live at home with their son. Pt has history of cirrhosis d/t SALCIDO - ammonia levels elevated yesterday with AMS noted. Eli's weight has trended upward over the last couple months, although 3+ generalized edema noted by nursing this admission. She is ordered for a consistent carb, low sodium diet with normal consistencies. FPG 234 today - was high at 237 yesterday afternoon. Capillary glucose before breakfast 199. Mag low yesterday - given infusion and ordered for 400mg daily po MgO 08/16/24 albumin and total protein low at 2.6/6.2 respectively, possibly a mix of poor intake and/or infection/inflammation. Proteinuria and glucosuria noted yesterday. GFR yesterday 54 yesterday. Estimated energy needs: 2164kcals ([id number]), 62-78g protein (1.2- 1.5g/kg IBW), 2165mL fluid (1mL per required kcal) Met with patient briefly between nursing, who confirms next to nothing for current appetite. She is agreeable to ONS and liquid protein to supplement po intake. She is not interested in in-depth conversations about diabetes mgt and at this time. Has taken my card prior admission if interested in contacting for outpatient diabetes education. INTERVENTION: Would consider basal insulin therapy along with her current correction at meals - suggest 10units Glargine HS and titrating as needed to achieve desired fasting glucose 70-140. Would suggest 10,000IU cholecalciferol due to low vitamin D in May and pt not taking supplemental vitamin D at this time and not listed on her home meds - most likely still low. Would also recommend liquid protein concentrate TID as patient is willing to take in order to help increase protein intake Kitchen advised to send Boost glucose Control ONS BID to help with intake of protein and micronutrient intake. PLAN: Will monitor po intake, labs/glucose, receptiveness to diabetes education. Time Spent in Nutritional Counseling and Treatment: 10 min
[2024-08-17 06:34] LABS: HCT 30.1 % (36.0-46.0); HGB 9.4 g/dL (11.2-15.7); MCH 29.9 pg (27.0-33.0); MCHC 31.2 % (32.0-36.0); MCV 96 fL (80-95); MPV 10.9 fL (8.0-11.0); RBC 3.14 10^6/uL (3.93-5.22); RDW-SD 58.4 fL; WBC 13.44 10^3/uL (4.4-10.8)
[2024-08-17 06:55] LABS: Anion Gap 11.7 mmol/L (3-11); BUN 26 mg/dL (7-18); CO2 22.3 mmol/L (21.0-32.0); CREATININE 1.3 mg/dL (0.55-1.02); Chloride 107 mmol/L (98-107); Estimated GFR 44.51 (mL/min/1.73m2); Glucose 234 mg/dL (74-106); Magnesium 1.5 mg/dL (1.8-2.4); Potassium 4.1 mmol/L (3.5-5.1); Sodium 141 mmol/L (136-145)
[2024-08-17 06:56] LABS: Troponin I 1270 ng/L (<or=51)
[2024-08-17 07:17] LABS: Absolute Lymphocyte Count 0.94 10^3/uL (1.2-3.4); Bands % 24 %; Diff Comment Manual Differential; Platelet Count 95 10^3/uL (130-400); RBC Morphology Normal
[2024-08-17] MEDS: Norepinephrine in D5W 8 MG/250 ML BAG 22.5 MG IV (07:17)
--- NOTE | 2024-08-17 07:55 | DI.US_ITS ---
APPROVED REPORT EXAM: Comprehensive 2D, Doppler, and color-flow Echocardiogram Patient Location: In-Patient Room/Bed: [facility]308 Mule Packer: Brisa Palacio RDCS (AE) Indications: Hypotension, Elevated troponin, Fever, Sepsis, Tachycardia Other Information Study Quality: Fair. Technically limited study due to body habitus, inability to position patient exa m done supine bedside icu. Conclusion Normal left ventricular wall thickness and chamber size. Ejection fraction is 60%. Wall motion is n ormal Right ventricle is not well-visualized Left atrium is borderline dilated. Normal right atrial size There is no significant structural valvular disease Estimated right ventricular systolic pressure is 43 mmHg Wall motion Left Ventricle The left ventricle is normal size. The overall left ventricular systolic function appears normal. The re is normal left ventricular wall thickness. Regional wall motion is not well visualized but grossly normal. There is no ventricular septal defect visualized. LVEF is 59%. Right Ventricle Right ventricle is not well visualized. Right ventricular systolic function could not be assessed. Atria Left atrium is borderline dilated. The right atrium size is normal. The interatrial septum is intact with no evidence for an atrial septal defect. Aortic Valve Aortic valve is trileaflet. No hemodynamically significant valvular aortic stenosis. No aortic regur gitation is present. Mitral Valve The mitral valve is normal in structure. No evidence of mitral valve stenosis. Trace mitral regurgita tion. Tricuspid Valve The tricuspid valve is normal in structure. There is no tricuspid valve stenosis. Trace tricuspid reg urgitation. The RVSP is 42.7 mmHg. Pulmonic Valve The pulmonary valve is normal in structure. There is no pulmonic valvular stenosis. There is no pulmo belen valvular regurgitation. Great Vessels The aortic root is normal in size. The ascending aorta is normal in size. The IVC collapses <50% with inspiration. Pericardium There is no pericardial effusion. 2D Dimensions IVSD d PLAX 1.01 cm F: 0.6-1.0 Ao Root d 2.75 cm F: 2.7 - 3.3 LVPW d PLAX 1.04 cm F: 0.6 - 1.0 Ao Asc Diam d 3.11 cm F: 2.3 - 3.1 LVID d PLAX 5.21 cm F: 3.8 - 5.2 LVDs 3.58 cm F: 2.2 - 3.5 LV EF Teichholz 58.7 % FS 31.28 % LV EDV (Teich) 130.2 mL LV ESV (Teich) 53.8 mL M-Mode TAPSE 4.13 cm (M/F) >1.7 Auto EF LV EDV A4C 186.8 mL LV EDV A2C LV EDV BP LV ESV A4C 79.8 mL LV ESV A2C LV ESV BP LVEF(%) A4C 57.3 % LVEF(%) A2C LVEF(%) BP LV SV A4C 107.0 ml LV SV A2C LV SV BP LV CO A4C 11.0 L/min LV CO A2C LV CO BP HR A4C 102.57 BPM HR A2C LV EDV Index (BP) LA Volume LA Length A4C 6.0 cm LA Length A2C 5.9 cm LA Area A4C s 20.84 cm2 LA Area A2C s 26.19 cm2 LA Vol A4C A-L 61.11 mL LA Vol A2C A-L 99.40 mL LA Vol Biplane A-L 79.1 mL LA Vol/BSA A4C A-L LA Vol/BSA A2C A-L LA Vol/BSA BP A-L 39.5 mL/m2 LA Vol A4C MOD 57.4 mL LA Vol A2C MOD 92.4 mL LA Vol BP MOD 73.7 mL RA Volume RA Area A4C 17.0 cm2 RA ESV A4C (A-L) 49.6mL RA Vol/BSA A4C A-L RA Length A4C 4.9 cm RA ESV A4C (MOD) 48.8mL LV Diastology MV E' medial 0.075 (>0.07 m/s) MV E Vmax 1.20 (0.4-1.3 m/s) MV E/E' MED 15.90 (<14) MV A Vmax 1.35 (0.4-1.3 m/s) MV E' lateral 0.155 (>0.1 m/s) E/A Ratio 0.9 MV E/E' LAT 7.74 (<14) MV E' Average 0.115 m/s MV E/E'(average) 10.41 Aortic Valve AoV Vmax 2.35 m/s LVOT Vmax 1.34 m/s AoV Peak Grad 22.1 mmHg LVOT Peak Grad 7.1 mmHg AoV Area (Vmax) 1.74 cm2 LVOT VTI 0.254 m AoV VTI 0.491 m LVOT Mean Grad 5.0 mmHg AoV Mean Saud. 1.77 m/s LVOT SV 77.80 mL AoV Mean Grad 14.2 mmHg LVOT Diam s 1.95 cm AoV Area (VTI) 1.58 cm2 AV Regurg Peak Gr. 22.11 mmHg Velocity Ratio 0.57 Mitral Valve MV DT 254 (160-240 msec) MV Vmax TIPS 1.29 m/s MV Mean Grad 3.3 (<2mmHg) MV VTI 0.338 m Pulmonary Valve PV Vmax 1.68 (0.5-1.5 m/s) RVOT Vmax 1.38 m/s PV Peak Grad 11.3 mmHg RVOT Peak Gr. 7.6 mmHg PV Mean Saud 1.39 m/s RVOT VTI 0.259 m PV Mean Grad 8.2 mmHg RVOT Mean Gr. 4.3 mmHg Tricuspid Valve RA Pressure 8.00 mmHg TR Vmax 2.95 m/s TV S' 0.25 m/s TR Peak Grad 34.7 mmHg RVSP (TR) 42.7 mmHg
--- NOTE | 2024-08-17 08:15 | RT.EKG_ITS ---
APPROVED REPORT Exam: Resting ECG Reason for Exam: troponin trending up Patient Location: I HR:111 bpm ECG Measurements Heart Rate 111 AXIS CA 134 P 37 QRSd 99 QRS 37 QT 338 T 20 QTc 460 Conclusion Sinus tachycardia...rate> 99 Otherwise normal ECG
--- NOTE | 2024-08-17 08:29 | PDOC.CMIN ---
Date of service: 08/17/24 Time of Service: 08:29 Care Management Initial Assmt Initial Assessment Reason for Hospitalization: sepsis Functional Status/Living Situation Patient Presentation: Re remains in the ICU on a norepineohrine drip to maintain her blood pressure. She is febrile with a temperature of 38.1 C and her WBC is 13.44. Re also has gram negative rods growing in her blood and urine and her antibiotics have been changed for expanded coverage. Re was asleep when CM met with her. She woke up long enough to smile then went back to sleep. At baseline Re has issues with falling asleep during the day (hypersomnia according top her medical history; her calls it narcolepsy). This afternoon CM returned to met with Re and she was awake and talkative. CM is well know to her and Re easily engaged in conversation. She reported that someone named Chester had been to their home today and that the interaction was upsetting to her son. The person is from a community agency, possibly hospice, and asked questions and made statements to him that Re took offense to. She has seen this person before and had not had this experience. Re left a message for Chester to call her so that they could discuss the interaction. Re reported that she is feeling better this afternoon. She was given Tylenol this morning when she had the fever and is now afebrile. Town of Residence: [place] Resides with: Spouse ( Alexis and son Isra) Significant Other/Family: Out of area (some relatives in [place] Employment Status: Retired Instrumental Activities of Daily Living (ADLs): Independent Physical Functioning/Mobility Assistive Device: walker Advance Directives Advance Directives: Do you have an Advance Directive: N 09/23/23 16:39 AD On File at [facility]: N 09/23/23 16:39 Date Asked 08/16/24 08/16/24 14:18 AD Date Reviewed COLST On File at [facility] No 08/10/24 20:47 COLST Date Scanned Code Status Resuscitation Status Full Code Insurance Coverage/Financial Issues Insurance: [employer] medicare replacement Care Team Visit Care Team Role Provider Type Jefe Coffey Primary Care Provider NON-[facility] STAFF PHYSICIAN Eulalia Torrez RDN, CDCES Other Providers SALES AGENT Margaret Ortega Other Providers SALES AGENT Jw Rice RDN Other Providers SALES AGENT Fito Haynes MD Emergency Provider [facility] STAFF PHYSICIAN Jamal Mendoza MD Admit Provider [facility] STAFF PHYSICIAN Attending Provider Discharge Potential Discharge Needs: PCP F/U Appt Anticipated Barriers to Discharge: None Identified Patient/Family Education Needs: Review discharge instructions, discuss Ask Me Three Transportation: Private vehicle Plan: Anticipate Re will be discharged home, likely with new home health services, when medically cleared. She will follow up with her PCP and plan of care and transport with family. CM will follow and continue to assess for discharge needs. PFSH All Active Problems (Updated 08/17/24 @ 09:19 by Gurpreet Melchor) Acute renal failure (Acute) DVT prophylaxis (Acute) Acute coronary syndrome with high troponin (Acute) Sepsis due to Gram-negative organism with septic shock (Acute) Severe sepsis (Acute) Type 2 diabetes mellitus (Acute) Liver cirrhosis secondary to SALCIDO (Acute) Encephalopathy (Acute) Presumed secondary to chronic liver disease. Chronically elevated ammonia level. On lactulose. 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 Left clavicle Excess skin of eyelid Pituitary cyst Hypersomnia GAVE (gastric antral vascular ectasia) JAYDEN (obstructive sleep apnea) Acquired arteriovenous malformation Atypical angina Biliary dyskinesia Lung nodule Submucosal neoplasm of stomach Anemia Dermoid cyst History of peptic ulcer disease Osteoarthritis Pancreatitis Hypertensive disorder Hepatic encephalopathy Edema Atrophy of vagina Atrophic vaginitis Actinic keratosis Pituitary adenoma Restless legs Neoplasm of parotid gland Lumbar spondylosis Lesion of esophagus Dyslipidemia Depressive disorder Crohn's disease Chronic low back pain Anxiety Anemia Cirrhosis SALCIDO (nonalcoholic steatohepatitis) CHF (congestive heart failure) Anasarca Surgical History History of oophorectomy, unilateral History of rotator cuff surgery bilateral History of total knee arthroplasty bilateral History of sleeve gastrectomy History of hysterectomy Family History Brother Cancer Lung Alcohol use disorder 2 older brothers Social History (Updated 08/16/24 @ 23:05 by Jamal Mendoza MD) Smoking/Tobacco Use Status: Never Smoking risk assessment performed?: Yes Alcohol Intake: never Drug use: Never Substance use type: does not use Housing: house Current gender identity: female Do you feel safe at home: Yes Do you feel safe in your relationship?: Yes Additional Social history: Lives with Arslan, and son in [place]. Moved from [place] in 2019. Has a dog and 8 pet birds. Readmission Within the Past 30 Days Yes or No: Yes Date of First Admission Date of 1st Admission: 08/10/24 Date of this Admission Date of Admission: 08/16/24 This admission was: Through ED Office Visit Since 1st Admission Have you seen your PCP in the office since discharge?: No Had an appointment Been Scheduled?: Yes Assessment for Readmission Summary of readmission circumstances, based upon interviews: Re was admitted earlier this month for hepatic encephalopathy, a condition she has that frequently results in her hospitalization. Both she and her are supposed to take Lactulose 3 times a day, but frequently miss doses. Re informed CM that she had been compliant since discharge. This admission was for sepsis likely secondary to a Uti. SDOH(Care Management) Screening Will the Patient Participate in the Screening?: Yes Do you worry about having a steady place to live?: no Problems where you live: no known problems In the past 12 months, have you had to go without electric, gas, oil or water in your home?: no Have you or anyone in your house had to go without enough food to eat?: no Has lack of transportation kept you from medical appointments or from doing things needed for daily living?: no Has anyone in your support network made you feel unsafe for any reason?: no Health Related Social Needs Health related social needs details: patient helps take care of her and she is now needing assistance Anticipated HH Services Anticipated HH Services at Discharge [facility] Needed, OT, PT and RN Anticipated Date of Discharge: 08/19/24. Following Provider: Jefe Coffey.
[2024-08-17] MEDS: Magnesium Oxide 400 MG TAB PO (08:38)
[2024-08-17] MEDS: Potassium Chloride 20 MEQ TABCR PO ×3 (08:39→20:47)
[2024-08-17] MEDS: Pantoprazole 40 MG TABCR PO ×2 (08:39→20:46)
[2024-08-17] MEDS: Oxybutynin 5 MG TAB PO ×2 (08:39→20:46)
[2024-08-17] MEDS: Lactulose 20 GM/30 ML CUP 30 GM PO ×3 (08:40→20:38)
[2024-08-17] MEDS: MAGNESIUM SULFATE 4 GM/100 ML BAG IV_INF (08:42)
[2024-08-17] MEDS: Normal Saline Flush 10 ML SYR IVP ×2 (08:44→20:27)
--- NOTE | 2024-08-17 08:51 | W.PM.PROGNOT ---
Date of Service Date of service: 08/17/24 Time of Service: 08:51 Assessment and Plan Assessment and plan (1) Sepsis due to Gram-negative organism with septic shock: Status: Acute Assessment and plan: Clinically septic shock with GNR seen on gram stain of blood, likely urine source. Started on levofloxacin and linazolid. Given the gram stain results and long QT, will stop linazolid Given risk factors for pseudomonas and degree of illness, we should have better gram negative coverage. She has tolerated cephalosporins. Change to cefepime and gentamicin. Low DBP c/w vasodiliatory shock, she is on noripinephrine drip. She may be at risk for adrenal insufficiency with her pituitary adenoma, though we have no history of this. If she is not responding consider treating/testing Continue to monitor in ICU. (2) Acute coronary syndrome with high troponin: Status: Acute Assessment and plan: I am concerned with continued upward trend of troponins. In setting of sepsis with no ischemic EKG changes or significant chest pain, this is type 2 ACS Ordered repeat EKG to follow, getting echocardiogram, following troponins No known CAD, but will start ASA (she has a history of GI bleed andis on PPI) and statin for now. (3) Liver cirrhosis secondary to SALCIDO: Status: Acute Assessment and plan: Chronic, compensated. (4) Encephalopathy: Status: Acute Assessment and plan: Currently well managed with lactulose, good mental status despite acute illness Qualifiers: Encephalopathy type: hepatic Qualified Code(s): K76.82 - Hepatic encephalopathy (5) Type 2 diabetes mellitus: Status: Acute Assessment and plan: She is on metformin and semaglutide, sliding scale insulin while here. We may need to stop metformin if renal function worsens Qualifiers: Diabetes mellitus care home insulin use: without bed bug exterminator use Diabetes mellitus complication status: without complication Qualified Code(s): E11.9 - Type 2 diabetes mellitus without complications (6) Acute renal failure: Status: Acute Assessment and plan: Creatinine up to 1.3 from 0.8-1 baseline, associated with shock, c/w prerenal. Follow labs and urine output. Qualifiers: Acute renal failure type: unspecified Qualified Code(s): N17.9 - Acute kidney failure, unspecified (7) Hypomagnesemia: Status: Resolved Assessment and plan: given 1g but hasn't improved, QT is long, replace more agressively. (8) DVT prophylaxis: Status: Acute Assessment and plan: enoxaparin Subjective Subjective Patient reports: no new complaints and tolerating a regular diet; denies nausea or vomiting Interval history since last seen: She feels okay, just tired. She doesn't feel pain or fever this morning. She is not dizzy or short of breath. She hasn't had any chest pain since she has been here other than 10 seconds of left sided twinge of pain earlier this morning, no pain or tightness or pressure now in chest or into neck/shoulder/arm. Stools are loose but this is normal with her lactulose. Exam Narrative Exam Narrative: Sitting up in bed, alert and oriented, x 4 and conversant, pleasant, no distress. Conjunctive clear, no icterus. No respiratory distress with nasal cannula oxygen in place, lung clear other than bibasilar crackles posteriorly Heart slightly tacky with a 1-2/6 short systolic murmur heard best in the left upper sternal border radiating to neck. Abdomen with active BS, soft and minimally tender in suprapubic area, no guarding, no palpable ascites. Skin warm and dry with no significant rashes seen on her legs or pannus folds. spider telangiectasias on chest Objective Last Vital Signs Temp 37.3 C 08/16/24 23:15 Pulse 103 H 08/17/24 08:00 Resp 21 08/17/24 08:00 BP 122/41 L 08/17/24 08:00 Pulse Ox 95 08/17/24 08:00 Laboratory Results - last 24 hr 08/16/24 08/16/24 08/16/24 14:35 14:35 14:35 WBC 3.05 L RBC 3.42 L Hgb 10.2 L Hct 32.3 L MCV 94 MCH 29.8 MCHC 31.6 L RDW 16.2 H Plt Count 107 L MPV 9.9 Immature Gran % 0.0 Neutrophils % 77.0 Band Neutrophils % 10 Lymphocytes % 9.0 Atypical Lymphs % 1 Monocytes % 0.0 Eosinophils % 2.0 Basophils % 1.0 Nucleated RBC % 0.0 Absolute Neutrophils 2.65 Absolute Lymphocytes 0.31 L Absolute Monocytes 0.00 L Absolute Eosinophils 0.06 Absolute Basophils 0.03 RBC Morphology See Below Anisocytosis 1+ PT 11.8 H INR 1.2 H APTT 25.4 Sample Site Cancelled ABG pH Cancelled ABG pCO2 Cancelled ABG pO2 Cancelled ABG HCO3 Cancelled ABG Total CO2 Cancelled ABG O2 Saturation Cancelled ABG Base Excess Cancelled VBG pH Cancelled 7.36 VBG pCO2 Cancelled 42 VBG pO2 Cancelled VBG HCO3 VBG Total CO2 VBG O2 Saturation VBG Base Excess VBG Lactate FiO2 FiO2 (liters per min) Sodium Potassium Chloride Carbon Dioxide Anion Gap BUN Creatinine Est GFR (CKD-EPI 2020) Glucose Calcium Magnesium Total Bilirubin AST ALT Alkaline Phosphatase Ammonia Troponin I NT-Pro-B Natriuret Pep Total Protein Albumin Lipase TSH Urine Color Urine Clarity Urine pH Ur Specific [place] Urine Protein Urine Ketones Urine Blood Urine Nitrite Urine Bilirubin Urine Urobilinogen Ur Leukocyte Esterase Urine RBC Urine WBC Ur Epithelial Cells Urine Crystals Urine Bacteria Urine Casts Urine Mucus Ur Culture Indicated? Urine Glucose Urine Opiates Screen Urine Methadone Screen Ur Barbiturates Screen Ur Tricyclics Screen Ur Amphetamines Screen U Benzodiazepines Scrn Urine Cocaine Screen Ur THC Screen Ethyl Alcohol COVID-19 Source SARS-CoV-2 (PCR) Influenza Type A (PCR) Influenza Type B (PCR) RSV (PCR) 08/16/24 08/16/24 08/16/24 14:35 14:35 14:35 WBC RBC Hgb Hct MCV MCH MCHC RDW Plt Count MPV Immature Gran % Neutrophils % Band Neutrophils % Lymphocytes % Atypical Lymphs % Monocytes % Eosinophils % Basophils % Nucleated RBC % Absolute Neutrophils Absolute Lymphocytes Absolute Monocytes Absolute Eosinophils Absolute Basophils RBC Morphology Anisocytosis PT INR APTT Sample Site ABG pH ABG pCO2 ABG pO2 ABG HCO3 ABG Total CO2 ABG O2 Saturation ABG Base Excess VBG pH VBG pCO2 VBG pO2 44 VBG HCO3 Cancelled 24 VBG Total CO2 Cancelled 25 VBG O2 Saturation Cancelled VBG Base Excess VBG Lactate FiO2 FiO2 (liters per min) Sodium Potassium Chloride Carbon Dioxide Anion Gap BUN Creatinine Est GFR (CKD-EPI 2020) Glucose Calcium Magnesium Total Bilirubin AST ALT Alkaline Phosphatase Ammonia Troponin I NT-Pro-B Natriuret Pep Total Protein Albumin Lipase TSH Urine Color Urine Clarity Urine pH Ur Specific [place] Urine Protein Urine Ketones Urine Blood Urine Nitrite Urine Bilirubin Urine Urobilinogen Ur Leukocyte Esterase Urine RBC Urine WBC Ur Epithelial Cells Urine Crystals Urine Bacteria Urine Casts Urine Mucus Ur Culture Indicated? Urine Glucose Urine Opiates Screen Urine Methadone Screen Ur Barbiturates Screen Ur Tricyclics Screen Ur Amphetamines Screen U Benzodiazepines Scrn Urine Cocaine Screen Ur THC Screen Ethyl Alcohol COVID-19 Source SARS-CoV-2 (PCR) Influenza Type A (PCR) Influenza Type B (PCR) RSV (PCR) 08/16/24 08/16/24 08/16/24 14:35 14:35 14:35 WBC RBC Hgb Hct MCV MCH MCHC RDW Plt Count MPV Immature Gran % Neutrophils % Band Neutrophils % Lymphocytes % Atypical Lymphs % Monocytes % Eosinophils % Basophils % Nucleated RBC % Absolute Neutrophils Absolute Lymphocytes Absolute Monocytes Absolute Eosinophils Absolute Basophils RBC Morphology Anisocytosis PT INR APTT Sample Site ABG pH ABG pCO2 ABG pO2 ABG HCO3 ABG Total CO2 ABG O2 Saturation ABG Base Excess VBG pH VBG pCO2 VBG pO2 VBG HCO3 VBG Total CO2 VBG O2 Saturation 78 VBG Base Excess Cancelled -1 VBG Lactate Cancelled FiO2 Cancelled FiO2 (liters per min) Cancelled Sodium 143 Potassium 4.4 Chloride 105 Carbon Dioxide 27.3 Anion Gap 10.7 BUN 19 H Creatinine 1.1 H Est GFR (CKD-EPI 2020) 54.39 Glucose 237 H Calcium 8.7 Magnesium 1.6 L Total Bilirubin 1.27 H AST 47 H ALT 33 Alkaline Phosphatase 276 H Ammonia Troponin I NT-Pro-B Natriuret Pep Total Protein 6.2 L Albumin 2.6 L Lipase 45 TSH 1.17 Cancelled Urine Color Urine Clarity Urine pH Ur Specific [place] Urine Protein Urine Ketones Urine Blood Urine Nitrite Urine Bilirubin Urine Urobilinogen Ur Leukocyte Esterase Urine RBC Urine WBC Ur Epithelial Cells Urine Crystals Urine Bacteria Urine Casts Urine Mucus Ur Culture Indicated? Urine Glucose Urine Opiates Screen Urine Methadone Screen Ur Barbiturates Screen Ur Tricyclics Screen Ur Amphetamines Screen U Benzodiazepines Scrn Urine Cocaine Screen Ur THC Screen Ethyl Alcohol 3.9 COVID-19 Source SARS-CoV-2 (PCR) Influenza Type A (PCR) Influenza Type B (PCR) RSV (PCR) 08/16/24 08/16/24 08/16/24 14:49 15:10 15:32 WBC RBC Hgb Hct MCV MCH MCHC RDW Plt Count MPV Immature Gran % Neutrophils % Band Neutrophils % Lymphocytes % Atypical Lymphs % Monocytes % Eosinophils % Basophils % Nucleated RBC % Absolute Neutrophils Absolute Lymphocytes Absolute Monocytes Absolute Eosinophils Absolute Basophils RBC Morphology Anisocytosis PT INR APTT Sample Site ABG pH ABG pCO2 ABG pO2 ABG HCO3 ABG Total CO2 ABG O2 Saturation ABG Base Excess VBG pH VBG pCO2 VBG pO2 VBG HCO3 VBG Total CO2 VBG O2 Saturation VBG Base Excess VBG Lactate FiO2 FiO2 (liters per min) Sodium Potassium Chloride Carbon Dioxide Anion Gap BUN Creatinine Est GFR (CKD-EPI 2020) Glucose Calcium Magnesium Total Bilirubin AST ALT Alkaline Phosphatase Ammonia 106 H Troponin I NT-Pro-B Natriuret Pep Total Protein Albumin Lipase TSH Urine Color Yellow Urine Clarity Clear Urine pH 5.0 Ur Specific [place] 1.025 Urine Protein 30 H Urine Ketones Negative Urine Blood Trace-intact H Urine Nitrite Positive H Urine Bilirubin Negative Urine Urobilinogen 0.2 Ur Leukocyte Esterase Negative Urine RBC 0-2 Urine WBC 5-10 Ur Epithelial Cells Rare Urine Crystals Negative Urine Bacteria Many Urine Casts Negative Urine Mucus Negative Ur Culture Indicated? No Urine Glucose 500 H Urine Opiates Screen Negative Urine Methadone Screen Negative Ur Barbiturates Screen Negative Ur Tricyclics Screen Positive A Ur Amphetamines Screen Negative U Benzodiazepines Scrn Negative Urine Cocaine Screen Negative Ur THC Screen Negative Ethyl Alcohol COVID-19 Source Nasopharynx SARS-CoV-2 (PCR) Negative Influenza Type A (PCR) Negative Influenza Type B (PCR) Negative RSV (PCR) Negative 08/16/24 08/16/24 08/16/24 18:04 19:30 20:00 WBC RBC Hgb Hct MCV MCH MCHC RDW Plt Count MPV Immature Gran % Neutrophils % Band Neutrophils % Lymphocytes % Atypical Lymphs % Monocytes % Eosinophils % Basophils % Nucleated RBC % Absolute Neutrophils Absolute Lymphocytes Absolute Monocytes Absolute Eosinophils Absolute Basophils RBC Morphology Anisocytosis PT INR APTT Sample Site ABG pH ABG pCO2 ABG pO2 ABG HCO3 ABG Total CO2 ABG O2 Saturation ABG Base Excess VBG pH VBG pCO2 VBG pO2 VBG HCO3 VBG Total CO2 VBG O2 Saturation VBG Base Excess VBG Lactate 3.94 H* 3.90 H* FiO2 FiO2 (liters per min) Sodium Potassium Chloride Carbon Dioxide Anion Gap BUN Creatinine Est GFR (CKD-EPI 2020) Glucose Calcium Magnesium Total Bilirubin AST ALT Alkaline Phosphatase Ammonia Troponin I 472 H* 557 H* NT-Pro-B Natriuret Pep 462 H Total Protein Albumin Lipase TSH Urine Color Urine Clarity Urine pH Ur Specific [place] Urine Protein Urine Ketones Urine Blood Urine Nitrite Urine Bilirubin Urine Urobilinogen Ur Leukocyte Esterase Urine RBC Urine WBC Ur Epithelial Cells Urine Crystals Urine Bacteria Urine Casts Urine Mucus Ur Culture Indicated? Urine Glucose Urine Opiates Screen Urine Methadone Screen Ur Barbiturates Screen Ur Tricyclics Screen Ur Amphetamines Screen U Benzodiazepines Scrn Urine Cocaine Screen Ur THC Screen Ethyl Alcohol COVID-19 Source SARS-CoV-2 (PCR) Influenza Type A (PCR) Influenza Type B (PCR) RSV (PCR) 08/16/24 08/16/24 08/17/24 20:41 21:51 05:30 WBC 13.44 H RBC 3.14 L Hgb 9.4 L Hct 30.1 L MCV 96 H MCH 29.9 MCHC 31.2 L RDW 17.0 H Plt Count 95 L MPV 10.9 Immature Gran % 0.0 Neutrophils % 69.0 Band Neutrophils % 24 Lymphocytes % 7.0 Atypical Lymphs % Monocytes % 0.0 Eosinophils % 0.0 Basophils % 0.0 Nucleated RBC % 0.0 Absolute Neutrophils 12.50 H Absolute Lymphocytes 0.94 L Absolute Monocytes 0.00 L Absolute Eosinophils 0.00 Absolute Basophils 0.00 RBC Morphology Normal Anisocytosis PT INR APTT Sample Site ABG pH ABG pCO2 ABG pO2 ABG HCO3 ABG Total CO2 ABG O2 Saturation ABG Base Excess VBG pH VBG pCO2 VBG pO2 VBG HCO3 VBG Total CO2 VBG O2 Saturation VBG Base Excess VBG Lactate 3.84 H* FiO2 FiO2 (liters per min) Sodium 141 Potassium 4.1 Chloride 107 Carbon Dioxide 22.3 Anion Gap 11.7 H BUN 26 H Creatinine 1.3 H Est GFR (CKD-EPI 2020) 44.51 Glucose 234 H Calcium 8.0 L Magnesium Cancelled Total Bilirubin AST ALT Alkaline Phosphatase Ammonia Troponin I 581 H* NT-Pro-B Natriuret Pep Total Protein Albumin Lipase TSH Urine Color Urine Clarity Urine pH Ur Specific [place] Urine Protein Urine Ketones Urine Blood Urine Nitrite Urine Bilirubin Urine Urobilinogen Ur Leukocyte Esterase Urine RBC Urine WBC Ur Epithelial Cells Urine Crystals Urine Bacteria Urine Casts Urine Mucus Ur Culture Indicated? Urine Glucose Urine Opiates Screen Urine Methadone Screen Ur Barbiturates Screen Ur Tricyclics Screen Ur Amphetamines Screen U Benzodiazepines Scrn Urine Cocaine Screen Ur THC Screen Ethyl Alcohol COVID-19 Source SARS-CoV-2 (PCR) Influenza Type A (PCR) Influenza Type B (PCR) RSV (PCR) 08/17/24 05:30 WBC RBC Hgb Hct MCV MCH MCHC RDW Plt Count MPV Immature Gran % Neutrophils % Band Neutrophils % Lymphocytes % Atypical Lymphs % Monocytes % Eosinophils % Basophils % Nucleated RBC % Absolute Neutrophils Absolute Lymphocytes Absolute Monocytes Absolute Eosinophils Absolute Basophils RBC Morphology Anisocytosis PT INR APTT Sample Site ABG pH ABG pCO2 ABG pO2 ABG HCO3 ABG Total CO2 ABG O2 Saturation ABG Base Excess VBG pH VBG pCO2 VBG pO2 VBG HCO3 VBG Total CO2 VBG O2 Saturation VBG Base Excess VBG Lactate FiO2 FiO2 (liters per min) Sodium Potassium Chloride Carbon Dioxide Anion Gap BUN Creatinine Est GFR (CKD-EPI 2020) Glucose Calcium Magnesium 1.5 L Total Bilirubin AST ALT Alkaline Phosphatase Ammonia Troponin I 1270 H* NT-Pro-B Natriuret Pep Total Protein Albumin Lipase TSH Urine Color Urine Clarity Urine pH Ur Specific [place] Urine Protein Urine Ketones Urine Blood Urine Nitrite Urine Bilirubin Urine Urobilinogen Ur Leukocyte Esterase Urine RBC Urine WBC Ur Epithelial Cells Urine Crystals Urine Bacteria Urine Casts Urine Mucus Ur Culture Indicated? Urine Glucose Urine Opiates Screen Urine Methadone Screen Ur Barbiturates Screen Ur Tricyclics Screen Ur Amphetamines Screen U Benzodiazepines Scrn Urine Cocaine Screen Ur THC Screen Ethyl Alcohol COVID-19 Source SARS-CoV-2 (PCR) Influenza Type A (PCR) Influenza Type B (PCR) RSV (PCR) Time Spent with Patient Time Spent with Patient: >50 minutes Time was spent: preparing to see the patient(eg.review tests), obtaining and/or reviewing separately otained hiistory, ordering medications,tests, procedures, referring, communicating with other health resident care aide, indepentently interpreting results, counseling the patient and care coordination
[2024-08-17] MEDS: Aspirin 325 MG TAB PO (09:13)
[2024-08-17] MEDS: Atorvastatin 40 MG TAB 80 MG PO (09:14)
[2024-08-17] MEDS: Ondansetron O.D.T. 4 MG TABEF PO (09:15)
[2024-08-17] MEDS: Insulin Aspart 300 UNITS/3 ML PEN SC ×3 (10:07→18:09)
[2024-08-17] MEDS: Prochlorperazine 10 MG/2 ML VIAL 5 MG IVP (10:08)
[2024-08-17 10:45] LABS: Troponin I 1045 ng/L (<or=51)
[2024-08-17] MEDS: CEFEPIME 2 GM in Normal Saline 100 ML IVPB ×2 (11:36→20:37)
[2024-08-17] MEDS: Acetaminophen 325 MG TAB PO (12:25)
--- NOTE | 2024-08-17 15:48 | PHA.REVIEW2 ---
Pharmacy Admission Review Admission Clinical Review Admission Pharmacy Review: Acute renal failure (Acute) DVT prophylaxis (Acute) Acute coronary syndrome with high troponin (Acute) Sepsis due to Gram-negative organism with septic shock (Acute) Severe sepsis (Acute) Type 2 diabetes mellitus (Acute) Liver cirrhosis secondary to SALCIDO (Acute) Encephalopathy (Acute) Altered mental status (Acute) Hypotension (Acute) Hypovolemia (Acute) Generalized pruritus (Acute) Hyperammonemia (Acute) Penicillins Allergy (Severe, Verified 08/10/24 21:00) Swelling/Edema tramadol Allergy (Severe, Verified 08/10/24 21:00) Swelling/Edema apricot Allergy (Intermediate, Verified 08/10/24 21:00) Hives ferrous sulfate Allergy (Unknown, Verified 08/10/24 21:00) Other (See Comment) raspberry Allergy (Verified 08/10/24 21:00) Other (See Comment) vancomycin Adverse Reaction (Intermediate, Verified 08/10/24 21:00) Other (See Comment) Resuscitation Status Full Code Height 5 ft 1 in Weight 104.1 kg Pharmacy Admission Review Renal Dosing Renal Dosing: BUN 26 mg/dL (7-18) H 08/17/24 05:30 Creatinine 1.3 mg/dL (0.55-1.02) H 08/17/24 05:30 Medications needing adjustments: Intervened (crcl = 45) List of meds needing interventions: cefepime adjusted from 2g q8h to 2g q12h for crcl <60. Gentamicin currently ordered 5 mg/kg (IBW) q24h but may need adjusting based on random level ordered for this evening, pharmacy to review 1015 AM. Other meds ok Anticoagulation Anticoagulation: Hgb 9.4 g/dL (11.2-15.7) L 08/17/24 05:30 Hct 30.1 % (36.0-46.0) L 08/17/24 05:30 Plt Count 95 10^3/uL (130-400) L 08/17/24 05:30 INR 1.2 (0.9-1.1) H 08/16/24 14:35 Creatinine 1.3 mg/dL (0.55-1.02) H 08/17/24 05:30 DVT Prophylaxis: Reviewed Medications: Enoxaparin (40 mg daily) Therapeutic Anticoagulation: N/A Opiate Usage Evaluate Pain Scale/Pains Meds: Reviewed (oxycodone ordered, has not used any) Relevant Labs Relevant Labs: Sodium 141 mmol/L (136-145) 08/17/24 05:30 Potassium 4.1 mmol/L (3.5-5.1) 08/17/24 05:30 Chloride 107 mmol/L (98-107) 08/17/24 05:30 Magnesium 1.5 mg/dL (1.8-2.4) L 08/17/24 05:30 Magnesium Cancelled 08/17/24 05:30 Electrolytes, C-Reactive P, ESR: Reviewed (4g IV mag today. Plt = 95 (from 107). lactate 3.84 (08/16)) DM Control DM Control: Reviewed Insulin Dosing, Diabetic Medication: insulin aspart sliding scale w/meals (may need to add basal). Metformin held - had contrast 08/16 @1600 + sepsis, hypovolemia - hold for now. Takes ozempic at home 0.5 mg weekly - held for now (family ended up bring med in, currently stored in pharmacy. dosed on sundays, did not take 08/16 dose) - discussed w/Dr. Melchor Cardiac Review Cardiac Review: Troponin I 1045 ng/L (<or=51) H* 08/17/24 10:15 NT-Pro-B Natriuret Pep 462 pg/mL (<300) H 08/16/24 19:30 BP, HR, EF%: Reviewed (BP running low. on norepinephrine drip @ 11 mcg/min. home torsemide 40 mg daily held) QTc Review QTc: Reviewed (QTc = 460 today (from 502 08/16 @1999) had levaquin 750 mg x 1 in ED, not continued) IV to PO Switch IV Medications: Reviewed (IV meds necessary at this point) Home Meds Home Med List reviewed: Reviewed Relevent Home Meds Not ordered & why?: see above re: metformin, torsemide, ozempic. Other home meds ordered Current Meds Current Medication Order Review: Reviewed Pharmacy Antibiotic Review Pharmacy Antibiotic Activity: Abx regimen adjustment Comments: linezolid + levaquin initially ordered, dc'd and switched to cefepime + gentamicin (for gram- synergy) indication: sepsis, likely urinary source. Gentamicin dosed via [facility] [employer] kinetics program (5 mg/kg IBW for expected peak = 8, trough <1) - Random level ordered for 1700 this evening - send out to [facility], expect result in AM. Pharmacist to review & adjust as needed
[2024-08-17] MEDS: Hydrocortisone SOD SUC. 100 MG VIAL IVP (18:14)
[2024-08-17] MEDS: Norepinephrine in D5W 8 MG/250 ML BAG 20.625 MG IV (19:06)
[2024-08-17] MEDS: Nystatin POWDER 15 GM JAR 6 GM TP (20:47)
[2024-08-17 21:28] LABS: Gentamicin Random (UVM) 3.9 ug/mL (See Note)
[2024-08-18] VITALS (101 sets, daily range): BP systolic 79–158; BP diastolic 35–88; PULSE 71–97; RESP 10–25; TEMP 36.3–36.7; O2SAT 95–100
[2024-08-18] MEDS: Hydrocortisone SOD SUC. 100 MG VIAL IVP ×3 (02:26→17:52)
[2024-08-18] MEDS: Normal Saline 1,000 ML 125 ML IV (04:27)
[2024-08-18] MEDS: Normal Saline Flush 10 ML SYR IVP ×3 (04:30→17:54)
[2024-08-18] MEDS: Pantoprazole 40 MG TABCR PO ×2 (06:51→19:49)
[2024-08-18 07:00] LABS: Abs Immature Grans 0.46 10^3/uL (0.0-0.06); Absolute Basophil Count 0.04 10^3/uL (0.0-0.2); Absolute Eosinophil Count 0.48 10^3/uL (0.0-0.7); Absolute Monocyte Count 0.64 10^3/uL (0.1-0.8); Basophils % 0.3 %; Eosinophils % 3.8 %; HCT 27.8 % (36.0-46.0); HGB 8.7 g/dL (11.2-15.7); Immature Grans % 3.6 %; Lymphocytes % 4.9 %; MCH 29.7 pg (27.0-33.0); MCHC 31.3 % (32.0-36.0); MCV 95 fL (80-95); MPV 11.4 fL (8.0-11.0); Neutrophils % 82.4 %; RBC 2.93 10^6/uL (3.93-5.22); RDW 17.7 % (11.7-14.6); RDW-SD 61.5 fL; WBC 12.73 10^3/uL (4.4-10.8)
[2024-08-18 07:01] LABS: Absolute Lymphocyte Count 0.62 10^3/uL (1.2-3.4); Absolute Neutrophil Count 10.49 10^3/uL (1.2-6.7)
[2024-08-18 07:19] LABS: Diff Comment Diff Reviewed; Platelet Count 84 10^3/uL (130-400); RBC Morphology Normal
[2024-08-18 07:22] LABS: ALT 24 U/L (14-59); AST 40 U/L (15-37); Albumin 1.7 g/dL (3.4-5.0); Alkaline Phosphatase 116 U/L (46-116); Anion Gap 7.2 mmol/L (3-11); BUN 30 mg/dL (7-18); Bilirubin, Total 2.48 mg/dL (0.2-1.0); CO2 23.8 mmol/L (21.0-32.0); CREATININE 1.2 mg/dL (0.55-1.02); Calcium 7.9 mg/dL (8.5-10.1); Chloride 111 mmol/L (98-107); Glucose 260 mg/dL (74-106); Sodium 142 mmol/L (136-145); Total Protein 4.9 g/dL (6.4-8.2)
[2024-08-18 07:25] LABS: Troponin I 503 ng/L (<or=51)
[2024-08-18] MEDS: Insulin Aspart 300 UNITS/3 ML PEN SC ×3 (08:05→20:18)
[2024-08-18] MEDS: rOPINIRole 1 MG TAB 2 MG PO ×2 (08:20→19:49)
[2024-08-18] MEDS: Potassium Chloride 20 MEQ TABCR PO ×3 (08:20→19:49)
[2024-08-18] MEDS: Atorvastatin 40 MG TAB 80 MG PO (08:21)
[2024-08-18] MEDS: Oxybutynin 5 MG TAB PO ×2 (08:23→19:49)
[2024-08-18] MEDS: Aspirin 81 MG CHEW PO (08:23)
[2024-08-18] MEDS: Lactulose 20 GM/30 ML CUP 30 GM PO ×3 (08:23→19:57)
[2024-08-18] MEDS: Magnesium Oxide 400 MG TAB PO (08:23)
--- NOTE | 2024-08-18 08:39 | W.PM.PROGNOT ---
Date of Service Date of service: 08/18/24 Time of Service: 08:39 Assessment and Plan Assessment and plan (1) Sepsis due to Gram-negative organism with septic shock: Status: Acute Assessment and plan: Clinically septic shock with GNR seen on gram stain of blood, likely urine source as also growing GNR. Started on levofloxacin and linazolid in ED. Given the gram stain/culture results and long QT, stopped linazolid Given risk factors for pseudomonas and degree of illness, change to cefepime and gentamicin on 08/18. Narrow when we have sensitivities. Low DBP over first 24 hours c/w vasodiliatory shock. BP labile while on noripinephrine drip and difficulty weaning until early this morning. She is at risk for adrenal insufficiency with her pituitary adenoma, though we have no history of this, so we started hydrocortisone and sent cortisol/ACTH on 08/17 pm. No off pressor and improving clinically. (2) Acute coronary syndrome with high troponin: Status: Acute Assessment and plan: In setting of sepsis with no ischemic EKG changes or significant chest pain, this is type 2 ACS No ischemia on serial EKGs, no chest pain. Echocardiogram reassuring. Troponins trending down as of 08/17, again this morning. No known CAD, started ASA (she has a history of GI bleed andis on PPI) and statin for now, should get work up for cardiac ischemia as outpatient (3) Liver cirrhosis secondary to SALCIDO: Status: Acute Assessment and plan: Chronic, compensated. (4) Encephalopathy: Status: Acute Assessment and plan: Currently well managed with lactulose, good mental status despite acute illness Qualifiers: Encephalopathy type: hepatic Qualified Code(s): K76.82 - Hepatic encephalopathy (5) Type 2 diabetes mellitus: Status: Acute Assessment and plan: She is on metformin and semaglutide at home, holding these. Sliding scale insulin while here. Qualifiers: Diabetes mellitus halfway insulin use: without halfway use Diabetes mellitus complication status: without complication Qualified Code(s): E11.9 - Type 2 diabetes mellitus without complications (6) Acute renal failure: Status: Acute Assessment and plan: Creatinine up to 1.3 from 0.8-1 baseline, associated with shock, c/w prerenal. U/o okay, Cr slightly down, continue to follow Qualifiers: Acute renal failure type: unspecified Qualified Code(s): N17.9 - Acute kidney failure, unspecified (7) Hypomagnesemia: Status: Resolved Assessment and plan: Replaced, Mg pending add on this morning. (8) DVT prophylaxis: Status: Acute Assessment and plan: enoxaparin. platatelets low but this is chronic related to cirrhosis, VTE risk still significant. Subjective Subjective Patient reports: no new complaints, feels better and tolerating a regular diet; denies nausea, vomiting, shortness of breath or fever Interval history since last seen: Started on Hydrocortisone 08/17 PM Weaned off norepi overnight Still a little weak, but getting out of bed now to chair, hungry. Would like 2 strips of ozuna, but will settle for an egg sandwich. Exam Narrative Exam Narrative: Sitting up in chair, alert and oriented, x 4 and conversant, pleasant, no distress. Conjunctive clear, no icterus. No respiratory distress with nasal cannula oxygen in place, lung clear bilaterally. Heart slightly tacky with a 1/6 systolic murmur heard best in the left upper sternal border radiating to neck. Abdomen with active BS, not tender, no palpable ascites. Ext 1+ edema judy (no change), not tender. Skin warm and dry with no significant rashes. spider telangiectasias on chest Objective Last Vital Signs Temp 36.3 C L 08/18/24 06:01 Pulse 72 08/18/24 07:31 Resp 18 08/18/24 07:31 BP 109/48 L 08/18/24 07:31 Pulse Ox 95 08/18/24 06:31 Laboratory Results - last 24 hr 08/17/24 08/17/24 08/17/24 10:15 17:00 17:20 WBC RBC Hgb Hct MCV MCH MCHC RDW Plt Count MPV Immature Gran % Neutrophils % Lymphocytes % Monocytes % Eosinophils % Basophils % Nucleated RBC % Absolute Neutrophils Absolute Lymphocytes Absolute Monocytes Absolute Eosinophils Absolute Basophils RBC Morphology Sodium Potassium Chloride Carbon Dioxide Anion Gap BUN Creatinine Est GFR (CKD-EPI 2020) Glucose Calcium Total Bilirubin AST ALT Alkaline Phosphatase Troponin I 1045 H* Total Protein Albumin Random Gentamicin Cancelled 3.9 08/18/24 05:30 WBC 12.73 H RBC 2.93 L Hgb 8.7 L Hct 27.8 L MCV 95 MCH 29.7 MCHC 31.3 L RDW 17.7 H Plt Count 84 L MPV 11.4 H Immature Gran % 3.6 Neutrophils % 82.4 Lymphocytes % 4.9 Monocytes % 5.0 Eosinophils % 3.8 Basophils % 0.3 Nucleated RBC % 0.0 Absolute Neutrophils 10.49 H Absolute Lymphocytes 0.62 L Absolute Monocytes 0.64 Absolute Eosinophils 0.48 Absolute Basophils 0.04 RBC Morphology Normal Sodium 142 Potassium 5.0 Chloride 111 H Carbon Dioxide 23.8 Anion Gap 7.2 BUN 30 H Creatinine 1.2 H Est GFR (CKD-EPI 2020) 49.00 Glucose 260 H Calcium 7.9 L Total Bilirubin 2.48 H AST 40 H ALT 24 Alkaline Phosphatase 116 Troponin I 503 H* Total Protein 4.9 L Albumin 1.7 L Random Gentamicin Time Spent with Patient Time Spent with Patient: >50 minutes Time was spent: preparing to see the patient(eg.review tests), obtaining and/or reviewing separately otained hiistory, ordering medications,tests, procedures, referring, communicating with other health intensive care medicine specialist, indepentently interpreting results, counseling the patient and care coordination
[2024-08-18 08:56] LABS: Lab Add On Test DONE
[2024-08-18] MEDS: Enoxaparin 40 MG/0.4 ML SYR SC ×2 (08:56→19:48)
[2024-08-18 09:04] LABS: Magnesium 2.7 mg/dL (1.8-2.4)
[2024-08-18] MEDS: CEFEPIME 2 GM in Normal Saline 100 ML IVPB ×2 (09:58→21:33)
--- NOTE | 2024-08-18 11:02 | PDOC.CMPRO ---
Date of service: 08/18/24 Time of Service: 11:02 Care Management Progress Note Progress Note Text Progress Note Text: Re was sitting up in bed when CM met with her. She looked much better than she did yesterday and confirmed that she is feeling good today. She was weaned off of her nor-epinephrine last night and is maintaining her systolic blood pressure between 110-130. Re is also afebrile and her troponins are trending down. She was in good spirits and shared information about things that have been happening at home.Alexis and Isra,Re's and son, came to visit this afternoon and Re appeared to be enjoying the visit. Re did talk with CM again about the need for additional help at home and shared that the [employer] is helping her find someone and that she has contact information for someone who may be a viable option. Discharge Potential Discharge Needs: PCP F/U Appt Anticipated Barriers to Discharge: None Identified Patient/Family Education Needs: Review discharge instructions, discuss Ask Me Three Transportation: Private vehicle Plan: Anticipate Re will be discharged home, likely with new home health services, when medically cleared. She will follow up with her PCP and plan of care and transport with family. CM will follow and continue to assess for discharge needs. SDOH(Care Management) Screening Will the Patient Participate in the Screening?: Yes Do you worry about having a steady place to live?: no Problems where you live: no known problems In the past 12 months, have you had to go without electric, gas, oil or water in your home?: no Have you or anyone in your house had to go without enough food to eat?: no Has lack of transportation kept you from medical appointments or from doing things needed for daily living?: no Has anyone in your support network made you feel unsafe for any reason?: no Health Related Social Needs Health related social needs details: patient helps take care of her and she is now needing assistance
[2024-08-18] MEDS: Doxepin 10 MG CAP 20 MG PO (19:47)
[2024-08-18] MEDS: Insulin Glargine 300 UNITS/3 ML PEN 18 UNITS SC (20:13)
[2024-08-18] MEDS: Lactulose 20 GM/30 ML CUP (20:23)
[2024-08-19] VITALS (52 sets, daily range): BP systolic 88–141; BP diastolic 41–67; PULSE 67–108; RESP 11–20; TEMP 36.2–36.8; O2SAT 94–99
[2024-08-19] MEDS: Hydrocortisone SOD SUC. 100 MG VIAL IVP (01:55)
[2024-08-19 06:39] LABS: Abs Immature Grans 0.17 10^3/uL (0.0-0.06); Absolute Basophil Count 0.03 10^3/uL (0.0-0.2); Absolute Lymphocyte Count 0.51 10^3/uL (1.2-3.4); Basophils % 0.3 %; HCT 27.8 % (36.0-46.0); HGB 8.6 g/dL (11.2-15.7); Immature Grans % 1.5 %; Lymphocytes % 4.5 %; MCHC 30.9 % (32.0-36.0); MCV 97 fL (80-95); MPV 11.1 fL (8.0-11.0); Monocytes % 5.4 %; Neutrophils % 88.3 %; Platelet Count 88 10^3/uL (130-400); RBC 2.87 10^6/uL (3.93-5.22); RDW 17.8 % (11.7-14.6); RDW-SD 62.6 fL
[2024-08-19 06:45] LABS: Absolute Monocyte Count 0.62 10^3/uL (0.1-0.8); Absolute Neutrophil Count 10.07 10^3/uL (1.2-6.7)
[2024-08-19 06:50] LABS: Anion Gap 6.8 mmol/L (3-11); BUN 36 mg/dL (7-18); CO2 23.2 mmol/L (21.0-32.0); CREATININE 1.2 mg/dL (0.55-1.02); Calcium 8.2 mg/dL (8.5-10.1); Chloride 111 mmol/L (98-107); Glucose 348 mg/dL (74-106); Potassium 5.1 mmol/L (3.5-5.1); Sodium 141 mmol/L (136-145)
[2024-08-19] MEDS: Insulin Aspart 300 UNITS/3 ML PEN SC ×3 (08:35→17:14)
[2024-08-19] MEDS: rOPINIRole 1 MG TAB 2 MG PO ×2 (08:37→20:38)
[2024-08-19] MEDS: Magnesium Oxide 400 MG TAB PO (08:38)
[2024-08-19] MEDS: Pantoprazole 40 MG TABCR PO ×2 (08:38→20:38)
[2024-08-19] MEDS: Atorvastatin 40 MG TAB 80 MG PO (08:38)
[2024-08-19] MEDS: Oxybutynin 5 MG TAB PO ×2 (08:39→20:39)
[2024-08-19] MEDS: Aspirin 81 MG CHEW PO (08:39)
[2024-08-19] MEDS: Enoxaparin 40 MG/0.4 ML SYR SC ×2 (08:42→20:39)
[2024-08-19] MEDS: Lactulose 20 GM/30 ML CUP 30 GM PO ×2 (08:43→20:38)
--- NOTE | 2024-08-19 08:43 | PDOC.CMPRO ---
Date of service: 08/19/24 Time of Service: 08:43 Care Management Progress Note Progress Note Text Progress Note Text: Re was sitting up when CM met with her. She looked really good today and confirmed that she feels much better. The bacteria in her blood and urine has been identified as Klebsiella and is sensitive to all antibiotics except ampicillin. Re is afebrile and her WBC is slowing returning to normal. She informed CM that she believes she will be ready for discharge in another day or two. Discharge Potential Discharge Needs: PCP F/U Appt Anticipated Barriers to Discharge: None Identified Patient/Family Education Needs: Review discharge instructions, discuss Ask Me Three Transportation: Private vehicle Plan: Anticipate Re will be discharged home, likely with new home health services, when medically cleared. She will follow up with her PCP and plan of care and transport with family. CM will follow and continue to assess for discharge needs. SDOH(Care Management) Screening Will the Patient Participate in the Screening?: Yes Do you worry about having a steady place to live?: no Problems where you live: no known problems In the past 12 months, have you had to go without electric, gas, oil or water in your home?: no Have you or anyone in your house had to go without enough food to eat?: no Has lack of transportation kept you from medical appointments or from doing things needed for daily living?: no Has anyone in your support network made you feel unsafe for any reason?: no Health Related Social Needs Health related social needs details: patient helps take care of her and she is now needing assistance
--- NOTE | 2024-08-19 09:04 | W.PM.PROGNOT ---
Date of Service Date of service: 08/19/24 Time of Service: 09:04 Assessment and Plan Assessment and plan (1) Sepsis due to Gram-negative organism with septic shock: Status: Acute Assessment and plan: Clinically septic shock with GNR seen on gram stain of blood, likely urine source as also growing GNR. Started on levofloxacin and linazolid in ED. Given the gram stain/culture results and long QT, stopped linazolid Given risk factors for pseudomonas and degree of illness, change to cefepime and gentamicin on 08/18. Narrow when we have sensitivities, which are still pending. Low DBP over first 24 hours c/w vasodiliatory shock. BP labile while on noripinephrine drip and difficulty weaning until early this morning. She is at risk for adrenal insufficiency with her pituitary adenoma, though we have no history of this, so we started hydrocortisone and sent cortisol/ACTH on 08/17 pm. No off pressor and improving clinically. (2) Acute coronary syndrome with high troponin: Status: Acute Assessment and plan: In setting of sepsis with no ischemic EKG changes or significant chest pain, this is type 2 ACS No ischemia on serial EKGs, no chest pain. Echocardiogram reassuring. Troponins trending down as of 08/17. No known CAD, started ASA (she has a history of GI bleed andis on PPI) and statin for now, should get work up for cardiac ischemia as outpatient, no change (3) Liver cirrhosis secondary to SALCIDO: Status: Acute Assessment and plan: Chronic, compensated. Resume her diuretic. (4) Encephalopathy: Status: Acute Assessment and plan: Currently well managed with lactulose, good mental status despite acute illness Qualifiers: Encephalopathy type: hepatic Qualified Code(s): K76.82 - Hepatic encephalopathy (5) Type 2 diabetes mellitus: Status: Acute Assessment and plan: She is on metformin and semaglutide at home, holding these. Sliding scale insulin while here. Can resume metformin. Qualifiers: Diabetes mellitus shelter insulin use: without manager long term care use Diabetes mellitus complication status: without complication Qualified Code(s): E11.9 - Type 2 diabetes mellitus without complications (6) Acute renal failure: Status: Acute Assessment and plan: Creatinine up to 1.3 from 0.8-1 baseline, associated with shock, c/w prerenal. Urine output okay, Cr slightly down but above baseline. Hopefully we can stop gentamicin when sensitivities back. continue to follow Qualifiers: Acute renal failure type: unspecified Qualified Code(s): N17.9 - Acute kidney failure, unspecified (7) Hypomagnesemia: Status: Resolved Assessment and plan: Replaced, Mg high 08/18 (8) Anemia: Assessment and plan: Chronic, not dropping significantly, but below baseline. She has a h/o GI but none noted. MCV and RDW high, c/w possible blood loss. B12 in November, but at risk with metformin use so will recheck. Get iFOB. (9) DVT prophylaxis: Status: Acute Assessment and plan: enoxaparin. platatelets low but this is chronic related to cirrhosis, VTE risk still significant. Continue unless we see any occult blood in stool. Subjective Subjective Patient reports: no new complaints and tolerating a regular diet; denies diarrhea, nausea, vomiting, shortness of breath or fever Interval history since last seen: Up walking more normally. Eating. She still feels a bit lightheaded. She feels like she is getting some fluid retention in her legs and abdomen. She wants to keep her pichardo in. Exam Narrative Exam Narrative: Sitting up in chair, alert and oriented, x 4 and conversant, pleasant, no distress. Conjunctive clear, no icterus. No respiratory distress with nasal cannula oxygen in place, lung clear bilaterally. Heart regular with a 1/6 systolic murmur. Abdomen with active BS, not tender, no palpable ascites. Ext 1+ edema judy, not tender. Skin warm and dry with no significant rashes. spider telangiectasias on chest Objective Last Vital Signs Temp 36.2 C L 08/19/24 03:38 Pulse 79 08/19/24 04:01 Resp 14 08/19/24 08:00 BP 117/41 L 08/19/24 04:01 Pulse Ox 98 08/18/24 16:20 Laboratory Results - last 24 hr 08/17/24 08/18/24 08/19/24 17:20 05:30 06:05 WBC 11.40 H RBC 2.87 L Hgb 8.6 L Hct 27.8 L MCV 97 H MCH 30.0 MCHC 30.9 L RDW 17.8 H Plt Count 88 L MPV 11.1 H Immature Gran % 1.5 Neutrophils % 88.3 Lymphocytes % 4.5 Monocytes % 5.4 Eosinophils % 0.0 Basophils % 0.3 Nucleated RBC % 0.0 Absolute Neutrophils 10.07 H Absolute Lymphocytes 0.51 L Absolute Monocytes 0.62 Absolute Eosinophils 0.00 Absolute Basophils 0.03 Sodium 141 Potassium 5.1 Chloride 111 H Carbon Dioxide 23.2 Anion Gap 6.8 BUN 36 H Creatinine 1.2 H Est GFR (CKD-EPI 2020) 49.00 Glucose 348 H Calcium 8.2 L Magnesium 2.7 H Cortisol 14.6 Time Spent with Patient Time Spent with Patient: >50 minutes Time was spent: preparing to see the patient(eg.review tests), obtaining and/or reviewing separately otained hiistory, ordering medications,tests, procedures, referring, communicating with other health childcare center director, indepentently interpreting results, counseling the patient and care coordination
[2024-08-19] MEDS: Furosemide 40 MG/4 ML VIAL IVP (09:58)
[2024-08-19] MEDS: Hydrocortisone SOD SUC. 100 MG VIAL 50 MG IVP ×2 (10:09→17:02)
[2024-08-19] MEDS: CEFEPIME 2 GM in Normal Saline 100 ML IVPB (10:16)
[2024-08-19] MEDS: cefTRIAXone 2 GM/50 ML BAG IVPB (13:59)
[2024-08-19] MEDS: Normal Saline Flush 10 ML SYR IVP ×2 (17:02→20:38)
[2024-08-19] MEDS: metFORMIN 500 MG TAB 1000 MG PO (17:03)
[2024-08-19 19:32] LABS: Adrenocorticotropic Hormone, P 27 pg/mL
[2024-08-19] MEDS: Nystatin POWDER 15 GM JAR 6 GM TP (20:37)
[2024-08-19] MEDS: Doxepin 10 MG CAP 20 MG PO (20:38)
[2024-08-19] MEDS: Insulin Glargine 300 UNITS/3 ML PEN 24 UNITS SC (20:42)
[2024-08-19] MEDS: Nystatin 500000 UNITS/5 ML SUSP 5ML CUP PO (21:04)
[2024-08-20] MEDS: Hydrocortisone SOD SUC. 100 MG VIAL 50 MG IVP ×2 (02:45→09:47)
[2024-08-20 03:21] VITALS: BP 120/47; PULSE 67; RESP 17; TEMP 36.4; O2SAT 97
[2024-08-20] MEDS: Nystatin 500000 UNITS/5 ML SUSP 5ML CUP PO ×3 (05:27→14:13)
[2024-08-20 07:01] LABS: Abs Immature Grans 0.08 10^3/uL (0.0-0.06); Absolute Basophil Count 0.03 10^3/uL (0.0-0.2); Absolute Lymphocyte Count 0.52 10^3/uL (1.2-3.4); Absolute Monocyte Count 0.47 10^3/uL (0.1-0.8); Absolute Neutrophil Count 7.96 10^3/uL (1.2-6.7); Basophils % 0.3 %; HCT 29.2 % (36.0-46.0); HGB 9.1 g/dL (11.2-15.7); Immature Grans % 0.9 %; Lymphocytes % 5.7 %; MCH 29.7 pg (27.0-33.0); MCHC 31.2 % (32.0-36.0); MCV 95 fL (80-95); MPV 11.2 fL (8.0-11.0); Monocytes % 5.2 %; Neutrophils % 87.9 %; RBC 3.06 10^6/uL (3.93-5.22); RDW 17.3 % (11.7-14.6); RDW-SD 60.9 fL; WBC 9.06 10^3/uL (4.4-10.8)
[2024-08-20 07:16] LABS: ALT 23 U/L (14-59); AST 31 U/L (15-37); Albumin 1.8 g/dL (3.4-5.0); Alkaline Phosphatase 169 U/L (46-116); Anion Gap 8.5 mmol/L (3-11); BUN 32 mg/dL (7-18); Bilirubin, Total 0.96 mg/dL (0.2-1.0); CO2 23.5 mmol/L (21.0-32.0); CREATININE 1.3 mg/dL (0.55-1.02); Calcium 8.3 mg/dL (8.5-10.1); Chloride 109 mmol/L (98-107); Estimated GFR 44.51 (mL/min/1.73m2); Glucose 238 mg/dL (74-106); Potassium 4.1 mmol/L (3.5-5.1); Sodium 141 mmol/L (136-145); Total Protein 5.6 g/dL (6.4-8.2)
[2024-08-20 07:44] LABS: Platelet Count 96 10^3/uL (130-400)
[2024-08-20 08:12] VITALS: BP 140/61; PULSE 74; RESP 17; TEMP 36.7; O2SAT 97
[2024-08-20] MEDS: Lactulose 20 GM/30 ML CUP 30 GM PO ×2 (08:22→14:13)
[2024-08-20] MEDS: Nystatin POWDER 15 GM JAR 6 GM TP ×2 (08:22→14:13)
[2024-08-20] MEDS: Torsemide 20 MG TAB 40 MG PO (08:23)
[2024-08-20] MEDS: Pantoprazole 40 MG TABCR PO (08:23)
[2024-08-20] MEDS: Atorvastatin 40 MG TAB 80 MG PO (08:23)
[2024-08-20] MEDS: Insulin Aspart 300 UNITS/3 ML PEN SC ×2 (08:23→12:28)
[2024-08-20] MEDS: rOPINIRole 1 MG TAB 2 MG PO (08:23)
[2024-08-20] MEDS: Magnesium Oxide 400 MG TAB PO (08:24)
[2024-08-20] MEDS: Aspirin 81 MG CHEW PO (08:24)
[2024-08-20] MEDS: Oxybutynin 5 MG TAB PO (08:24)
[2024-08-20] MEDS: metFORMIN 500 MG TAB 1000 MG PO (08:24)
--- NOTE | 2024-08-20 08:59 | W.PC.ACHO ---
Registration Status: Primary Language: Preferred Language: ED Information & Data Chief Complaint GenMedical 08/16/24 15:23 Chief Complaint GenMedical 08/16/24 14:59 Triage Note PAtient complaining of 08/16/24 14:15 weakness, chills, decreased io, fever and AMS. 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 Excess skin of eyelid Pituitary cyst Hypersomnia GAVE (gastric antral vascular ectasia) JAYDEN (obstructive sleep apnea) Acquired arteriovenous malformation Atypical angina Biliary dyskinesia Lung nodule Submucosal neoplasm of stomach Anemia Dermoid cyst History of peptic ulcer disease Osteoarthritis Pancreatitis Hypertensive disorder Hepatic encephalopathy Edema Atrophy of vagina Atrophic vaginitis Actinic keratosis Pituitary adenoma Restless legs Neoplasm of parotid gland Lumbar spondylosis Lesion of esophagus Dyslipidemia Depressive disorder Crohn's disease Chronic low back pain Anxiety Anemia Cirrhosis SALCIDO (nonalcoholic steatohepatitis) CHF (congestive heart failure) Anasarca (Last Reviewed 08/10/24 @ 22:33 by Devin Carlson) History of oophorectomy, unilateral History of rotator cuff surgery History of total knee arthroplasty History of sleeve gastrectomy History of hysterectomy Most Recent Vital Signs Temperature 36.7 C 08/20/24 08:12 Temperature Source Temporal Artery Scan 08/20/24 08:12 Pulse 74 08/20/24 08:12 Pulse 79 08/19/24 13:00 Respiratory Rate 17 08/20/24 08:12 Respiratory Effort Normal 08/16/24 23:15 Respiratory Depth Normal 08/16/24 23:15 Respiratory Pattern Normal 08/16/24 23:15 Blood Pressure 140/61 08/20/24 08:12 Blood Pressure Mean 72 08/19/24 10:01 Blood Pressure Position Supine 08/16/24 23:15 Pulse Oximetry 97 08/20/24 08:12 Oxygen Delivery Method Room Air 08/20/24 08:12 Oxygen Flow Rate 0 08/20/24 08:12 Pain Level 0 08/20/24 08:12 Comment Temp showing 36.1 via pichardo catheter. 08/18/24 13:05 Comment Norepi off 08/18/24 06:01 Allergies Penicillins Allergy (Severe, Verified 08/10/24 21:00) Swelling/Edema tramadol Allergy (Severe, Verified 08/10/24 21:00) Swelling/Edema apricot Allergy (Intermediate, Verified 08/10/24 21:00) Hives apricots, fruit. ferrous sulfate Allergy (Unknown, Verified 08/10/24 21:00) Other (See Comment) raspberry Allergy (Verified 08/10/24 21:00) Other (See Comment) vancomycin Adverse Reaction (Intermediate, Verified 08/10/24 21:00) Other (See Comment) Red Man Syndrome Precautions Isolation Standard precaution 08/16/24 15:23 Active Medications Generic Name Dose Route Start Last Admin Trade Name Freq PRN Reason Stop Dose Admin Acetaminophen 325 - 650 mg 08/17/24 00:03 08/17/24 12:25 Acetaminophen 325 Mg Tab PO 650 mg Q4H PRN PRN Administration Aspirin 81 mg 08/18/24 08:30 08/20/24 08:24 Aspirin 81 Mg Chew PO 81 mg DAILY JARETT Administration Atorvastatin Calcium 80 mg 08/17/24 08:30 08/20/24 08:23 Atorvastatin 40 Mg Tab PO 80 mg DAILY JARETT Administration Benzocaine/Menthol 1 each 08/19/24 20:37 08/19/24 22:49 Benzocaine/Menthol-Sf Lozg 16/Box SUC 1 jerel Q6H PRN PRN Administration Doxepin HCl 20 mg 08/17/24 00:30 08/19/24 20:38 Doxepin 10 Mg Cap PO 20 mg HS JARETT Administration Enoxaparin Sodium 40 mg 08/18/24 08:30 08/19/24 20:39 Enoxaparin 40 Mg/0.4 Ml Syr SC 40 mg BID JARETT Administration Hydrocortisone 50 mg 08/19/24 10:00 08/20/24 02:45 Hydrocortisone Sod Suc. 100 Mg Vial IVP 50 mg Q8H JARETT Administration Ceftriaxone Sodium/Dextrose 2 gm in 50 mls @ 100 mls/hr 08/19/24 14:00 08/19/24 14:30 Rocephin IVPB Infused Q24H JARETT Infusion Insulin Aspart 0 units 08/17/24 08:00 08/20/24 08:23 Insulin Aspart 300 Units/3 Ml Pen SC 4 units 0800,1200,1700 JARETT Administration Protocol Insulin Glargine 24 units 08/19/24 20:00 08/19/24 20:42 Insulin Glargine 300 Units/3 Ml Pen SC 24 units HS JARETT Administration Lactulose 30 gm 08/17/24 08:30 08/20/24 08:22 Lactulose 20 Gm/30 Ml Cup PO 30 gm TID JARETT Administration Magnesium Oxide 400 mg 08/17/24 08:30 08/20/24 08:24 Magnesium Oxide 400 Mg Tab PO 400 mg DAILY JARETT Administration Metformin HCl 1,000 mg 08/17/24 17:00 08/20/24 08:24 Metformin 500 Mg Tab PO 1,000 mg BID@0800,1700 JARETT Administration Nystatin 6 gm 08/17/24 08:30 08/20/24 08:22 Nystatin Powder 15 Gm Jar TP 1 applic TID JARETT Administration Nystatin 500,000 units 08/19/24 22:00 08/20/24 08:22 Nystatin 177447 Units/5 Ml Susp 5ml Cup PO 500,000 units 5X/DAY JARETT Administration Ondansetron HCl 4 mg 08/17/24 00:46 08/17/24 09:15 Ondansetron O.D.T. 4 Mg Tabef PO 4 mg DAILY PRN PRN Administration Nausea / Vomiting Oxybutynin Chloride 5 mg 08/17/24 08:30 08/20/24 08:24 Oxybutynin 5 Mg Tab PO 5 mg BID JARETT Administration Pantoprazole Sodium 40 mg 08/17/24 20:00 08/20/24 08:23 Pantoprazole 40 Mg Tabcr PO 40 mg BID@0730,2000 JARETT Administration Ropinirole HCl 2 mg 08/17/24 01:00 08/20/24 08:23 Ropinirole 1 Mg Tab PO 2 mg BID JARETT Administration Sodium Chloride 0 ml 08/17/24 07:30 08/19/24 20:38 Normal Saline Flush 10 Ml Syr IVP 10 ml PRN PRN Administration Torsemide 40 mg 08/20/24 08:30 08/20/24 08:23 Torsemide 20 Mg Tab PO 40 mg DAILY JARETT Administration IV IV Catheter Type [Right Triple Lumen Subclavian Internal Jugular] IV Catheter Type [Right Upper Saline Lock arm] IV Catheter Type [Right Hand] Peripheral IV IV Catheter Type [Left Saline Lock Antecubital] IV Catheter Gauge [Right Upper 20 arm] IV Catheter Gauge [Right Hand] 20 IV Catheter Gauge [Left 18 Antecubital] Diagnostics 10/17/24 10/14/24 Range/Units 06:26 17:20 WBC 9.06 (4.4-10.8) 10^3/uL RBC 3.06 L (3.93-5.22) 10^6/uL Hgb 9.1 L (11.2-15.7) g/dL Hct 29.2 L (36.0-46.0) % MCV 95 (80-95) fL MCH 29.7 (27.0-33.0) pg MCHC 31.2 L (32.0-36.0) % RDW 17.3 H (11.7-14.6) % Plt Count 96 L (130-400) 10^3/uL MPV 11.2 H (8.0-11.0) fL Immature Gran % 0.9 % Neutrophils % 87.9 % Lymphocytes % 5.7 % Monocytes % 5.2 % Eosinophils % 0.0 % Basophils % 0.3 % Nucleated RBC % 0.0 (0.0-0.3) % Absolute Neutrophils 7.96 H (1.2-6.7) 10^3/uL Absolute Lymphocytes 0.52 L (1.2-3.4) 10^3/uL Absolute Monocytes 0.47 (0.1-0.8) 10^3/uL Absolute Eosinophils 0.00 (0.0-0.7) 10^3/uL Absolute Basophils 0.03 (0.0-0.2) 10^3/uL Sodium 141 (136-145) mmol/L Potassium 4.1 D (3.5-5.1) mmol/L Chloride 109 H (98-107) mmol/L Carbon Dioxide 23.5 (21.0-32.0) mmol/L Anion Gap 8.5 (3-11) mmol/L BUN 32 H (7-18) mg/dL Creatinine 1.3 H (0.55-1.02) mg/dL Est GFR (CKD-EPI 2020) 44.51 (mL/min/1.73m2) Glucose 238 H (74-106) mg/dL Calcium 8.3 L (8.5-10.1) mg/dL Total Bilirubin 0.96 (0.2-1.0) mg/dL AST 31 (15-37) U/L ALT 23 (14-59) U/L Alkaline Phosphatase 169 H (46-116) U/L Total Protein 5.6 L (6.4-8.2) g/dL Albumin 1.8 L (3.4-5.0) g/dL ACTH 27 pg/mL 08/19/24 13:47 Stool Occult Blood (SUPA) - Final Stool 08/16/24 14:43 Blood Culture - Final Blood Klebsiella pneumoniae 08/16/24 14:35 Blood Culture - Final Blood Klebsiella pneumoniae [id number] Documentation Fingerstick Glucose Start: 08/16/24 23:32 Freq: .AC Status: Complete Protocol: Activity Type Activity Date Activity User E-sign Co-sign Detail Recorded Client Recorded Date Recorded By Document 08/19/24 16:47 BKG DAEMON(5) NVT-BG05 08/19/24 16:48 BKG DAEMON(6) Fingerstick Glucose Start: 08/19/24 20:26 Freq: .ACHS Status: Active Protocol: Activity Type Activity Date Activity User E-sign Co-sign Detail Recorded Client Recorded Date Recorded By Document 08/20/24 08:09 BKG DAEMON(7) NVT-BG05 08/20/24 08:10 BKG DAEMON(8) Intake and Output - 24 Hour Total 08/16/24 14:05 thru 08/20/24 08:37 Intake Total 64461.494 Output Total 5815 Balance 6562.494 Weight 108 kg Intake: IV 9902.494 Oral 2475 Output: Urine 4685 Stool 1100 Emesis 30 Other: Urine Color Yellow Urine Appearance Clear Comment Educated pt that this should come out tomorrow since she is moving around well Stool Occult Blood Negative Stool Size Moderate Stool Characteristics Soft Brown Emesis Description Bile Voiding Methods Toilet Urinary Catheter Urinary Catheter Date of 08/16/24 Insertion [Urethral (Pichardo)] Urinary Catheter Date of 08/16/24 Insertion [Urethral (Pichardo)] Time of insertion [Urethral ( 15:00 Pichardo)] Falls Risk Assessment History of Falls No History 08/16/24 23:15 Contributing Factors Unstable 08/16/24 23:15 Ambulatory Aids Uses ambulatory device + 08/16/24 23:15 Tubes/Lines With any additional score 08/16/24 23:15 Gait Evaluation W/any additional score 08/16/24 23:15 Cognition No cognitive impairment 08/16/24 23:15 Fall Total Score 73 08/16/24 23:15 Level of Risk High Risk 08/16/24 23:15 Problems (Last Updated 08/16/24 @ 23:04 by Jamal Mendoza MD) Acute renal failure (Acute) DVT prophylaxis (Acute) Acute coronary syndrome with high troponin (Acute) Sepsis due to Gram-negative organism with septic shock (Acute) Severe sepsis (Acute) Type 2 diabetes mellitus (Acute) Liver cirrhosis secondary to SALCIDO (Acute) Encephalopathy (Acute) Altered mental status (Acute) Hypotension (Acute) Hypovolemia (Acute) Generalized pruritus (Acute) Hyperammonemia (Acute) v v v v v v v v v Sending and/or Receiving Nurses: Please use comment section below to note any information pertinent to the patient hand-off not included above. Information / Comments: Patient brought from ICU, stable, and resting calmly in bed. Report received from: ALEX Tobias
[2024-08-20] MEDS: Normal Saline Flush 10 ML SYR IVP ×2 (09:47→14:13)
--- NOTE | 2024-08-20 10:54 | W.PM.PROGNOT ---
Date of Service Date of service: 08/20/24 Time of Service: 10:54 Assessment and Plan Assessment and plan (1) Sepsis due to Gram-negative organism with septic shock: Status: Acute Assessment and plan: Septic shock with klebsiella sensitive to cephalosporins, urine also growing GNR. No ascites to raise concern of SBP. Started on levofloxacin and linazolid in ED. Given the gram stain/culture results and long QT, stopped linazolid Low DBP over first 24 hours c/w vasodiliatory shock, on norepi drip the first 24hr, started on steroids. Given risk factors for pseudomonas and degree of illness, change to cefepime and gentamicin on 08/18. Narrowed to ceftriaxone 08/19. She is at risk for adrenal insufficiency with her pituitary adenoma, but cortisol/ACTH reassuring, stopping hydrocortisone today. Out of ICU 08/19, get PT today due to some weakness, likely home 08/21 if safe. (2) Acute coronary syndrome with high troponin: Status: Acute Assessment and plan: In setting of sepsis with no ischemic EKG changes or significant chest pain, this is type 2 ACS No ischemia on serial EKGs, no chest pain. Echocardiogram reassuring. Troponins trending down as of 08/17. No known CAD, started ASA (she has a history of GI bleed and is on PPI) and statin for now. With blood in stool, no clear focal CAD, will stop the ASA. Should consider work up for cardiac ischemia as outpatient. (3) Liver cirrhosis secondary to SALCIDO: Status: Acute Assessment and plan: Chronic, compensated. Resumed her diuretic 08/19. (4) Encephalopathy: Status: Acute Assessment and plan: Currently well managed with lactulose, good mental status despite acute illness Qualifiers: Encephalopathy type: hepatic Qualified Code(s): K76.82 - Hepatic encephalopathy (5) Type 2 diabetes mellitus: Status: Acute Assessment and plan: She is on metformin and semaglutide at home, holding these. Sliding scale insulin while here. Can resume metformin. Qualifiers: Diabetes mellitus [facility] use: without [facility] use Diabetes mellitus complication status: without complication Qualified Code(s): E11.9 - Type 2 diabetes mellitus without complications (6) Acute renal failure: Status: Acute Assessment and plan: Creatinine up to 1.3 from 0.8-1 baseline, associated with shock, c/w prerenal. Urine output okay, Cr slightly down but above baseline. Hopefully we can stop gentamicin when sensitivities back. continue to follow Qualifiers: Acute renal failure type: unspecified Qualified Code(s): N17.9 - Acute kidney failure, unspecified (7) Hypomagnesemia: Status: Resolved Assessment and plan: Replaced, Mg high 08/18 (8) Anemia: Assessment and plan: Chronic, not dropping significantly, but below baseline. She has a h/o GI but none noted. MCV and RDW high, c/w possible blood loss. B12 in November, but at risk with metformin use so will recheck. Get iFOB. (9) DVT prophylaxis: Status: Acute Assessment and plan: enoxaparin. platatelets low but this is chronic related to cirrhosis, VTE risk still significant. Continue unless we see any occult blood in stool. Subjective Subjective Patient reports: no new complaints, feels better and tolerating a regular diet; denies diarrhea, nausea, vomiting, shortness of breath or fever Interval history since last seen: Christine out this morning Occult blood positive, enoxaparin held She feels okay. Still a little weaker than normal. No dysuria. Denies confusion. Stool output continues Exam Narrative Exam Narrative: Sitting up in chair, alert and oriented, x 4 and conversant, pleasant, no distress. Conjunctive clear, no icterus. No respiratory distress, lung clear bilaterally. Heart regular with a 2/6 systolic murmur loudest at LSB, no radiation. Abdomen with active BS, not tender, no palpable ascites. Ext 1+ edema judy, not tender. Skin warm and dry with no significant rashes. spider telangiectasias on chest Objective Last Vital Signs Temp 36.7 C 08/20/24 08:12 Pulse 74 08/20/24 08:12 Resp 17 08/20/24 08:12 BP 140/61 08/20/24 08:12 Pulse Ox 97 08/20/24 08:12 Laboratory Results - last 24 hr 08/17/24 08/20/24 17:20 06:26 WBC 9.06 RBC 3.06 L Hgb 9.1 L Hct 29.2 L MCV 95 MCH 29.7 MCHC 31.2 L RDW 17.3 H Plt Count 96 L MPV 11.2 H Immature Gran % 0.9 Neutrophils % 87.9 Lymphocytes % 5.7 Monocytes % 5.2 Eosinophils % 0.0 Basophils % 0.3 Nucleated RBC % 0.0 Absolute Neutrophils 7.96 H Absolute Lymphocytes 0.52 L Absolute Monocytes 0.47 Absolute Eosinophils 0.00 Absolute Basophils 0.03 Sodium 141 Potassium 4.1 D Chloride 109 H Carbon Dioxide 23.5 Anion Gap 8.5 BUN 32 H Creatinine 1.3 H Est GFR (CKD-EPI 2020) 44.51 Glucose 238 H Calcium 8.3 L Total Bilirubin 0.96 AST 31 ALT 23 Alkaline Phosphatase 169 H Total Protein 5.6 L Albumin 1.8 L ACTH 27
[2024-08-20 11:32] VITALS: BP 133/58; PULSE 72; RESP 15; TEMP 36.2; O2SAT 98
--- NOTE | 2024-08-20 11:33 | IN_ITS ---
PT Notes Visit Reasons: Sepsis Inpatient Physical Therapy Initial Evaluation Date: 08/20/2024 Referring Doctor: Gurpreet Melchor MD PT Orders: PT CONSULT: Safety COnsult for D/C Precautions: Standard. Fall. Activity as tolerated. Patient Profile/Admitting Diagnosis: Patient is a 68-year-old female admitted for management of septic shock from Klebsiella infection, acute coronary syndrome with high troponin, liver cirrhosissecondary to SALCIDO, encephalopathy, type II DM, acuter renal failure, and hypomagnesemia, and anemia. PMHX: All Active Problems (Updated 08/16/24 @ 23:04 by Jamal Mendoza MD) Severe sepsis (Acute) Type 2 diabetes mellitus (Acute) Liver cirrhosis secondary to SALCIDO (Acute) Encephalopathy (Acute) Presumed secondary to chronic liver disease. Chronically elevated ammonia level. 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 Left clavicleExcess skin of eyelid Pituitary cyst Hypersomnia GAVE (gastric antral vascular ectasia) JAYDEN (obstructive sleep apnea) Acquired arteriovenous malformation Atypical angina Biliary dyskinesia Lung nodule Submucosal neoplasm of stomach Anemia Dermoid cyst History of peptic ulcer disease Osteoarthritis Pancreatitis Hypertensive disorder Hepatic encephalopathy Edema Atrophy of vagina Atrophic vaginitis Actinic keratosis Pituitary adenoma Restless legs Neoplasm of parotid gland Lumbar spondylosis Lesion of esophagus Dyslipidemia Depressive disorder Crohn's disease Chronic low back pain Anxiety Anemia Cirrhosis SALCIDO (nonalcoholic steatohepatitis) CHF (congestive heart failure) Anasarca Surgical History History of oophorectomy, unilateral History of rotator cuff surgery bilateralHistory of total knee arthroplasty bilateralHistory of sleeve gastrectomy History of hysterectomy Social History/Home Situation: Lives with and son in a private home with 3 steps to enter with rails.? Patient and family recently moved to [place] from [place], [place]. independent of all aspects of ADLs.? Uses front wheeled walker occasionally at home when pain in both knees gets too much. Has a ramp to enter house. Equipment Owned/DME: FWW, SPC, chair lift Subjective: Feels much better. Agreeable to going home today. Reports thrush and wondering if the doctor could give her something for it. Dr. Melchor came in and now aware and managing. Adds that at home, she does not walk too far inside the house. Does grocery shopping and can use either scooter or the cart. Objective: General Observation: Sitting on edge of bed.?High BMI. Mental Status: Alert and oriented as to person, place, time, and purpose. Able to pay attention, focus, and respond appropriately. Pain: Denies ROM: Right Upper Extremity: ? Shoulder Flexion allows up to 100 degrees. Shoulder abduction allows up to 100 degrees. Elbow flexion WFL. Wrist flexion WFL. Functional opening and closing of hand WFL. Left Upper Extremity:? Shoulder Flexion allows up to 100 degrees. Shoulder abduction allows up to 100 degrees. Elbow flexion WFL. Wrist flexion WFL. Functional opening and closing of hand WFL. Right Lower Extremity: Hip flexion limited to about 100 degrees due to body shape. Hip abduction WFL. Knee flexion WFL. Ankle dorsiflexion to neutral only. Ankle plantarflexion WFL. Left Lower Extremity: Hip flexion limited to about 100 degrees due to body sha pe. Hip abduction WFL. Knee flexion WFL. Ankle dorsiflexion to neutral only. Ankle plantarflexion WFL. Strength: Right Upper Extremity: Shoulder flexors 3-/5. Shoulder abductors 3-/5. Elbow flexors 4-/5. Elbow extensors 4-/5. Branch Service Specialist strong. Left Upper Extremity: Shoulder flexors 3-/5. Shoulder abductors 3-/5. Elbow flexors 4-/5. Elbow extensors 4-/5. Branch Service Specialist strong. Right Lower Extremity: Hip flexors 3+/5. Hip abductors 4-/5. Knee flexors 4-/5. Knee extensors 4-/5. Ankle dorsiflexors 3-/5. Ankle plantarflexors 4-/5. Left Lower Extremity: Hip flexors 3/5. Hip abductors 4-/5. Knee flexors 4-/5. Knee extensors 4-/5. Ankle dorsiflexors 3-/5. Ankle plantarflexors 4-/5. Bed Mobility/Transfers: Supine to sit independent Sit to stand with independent with FWW Stand to sit with independent with FWW Bed to reclining chair independent with FWW Reclining chair to bed independent with FWW Gait: 300 feet with front-wheeled walker with just supervision. No LOB. Denied chest pain, headache, and lightheadedness. Balance: Static Sitting: Normal Dynamic Sitting: Normal Static Standing: Fair Dynamic Standing: Fair Special Tests: Mobility Limitations Standardized Measure [facility] 6 clicks Basic Mobility Inpatient Short Form: Raw Score: 23? CMS Score:11% deficit? ? ? Informed Consent/Education:? Patient was instructed in purpose of PT consult. Agreeable to home health PT services Assessment: requires the use of FWW for all mobility ADL performance to maximize independence and reduce fall risk.Patient presents with clinical signs and symptoms consistent with current/admitting diagnoses that have resulted to mobility limitations, gait instability, generalized weakness, and overall ADL decline as demonstrated by the following impairment level findings: 1.? Decreased strength to B UE/LE major muscle groups 2.? Impaired standing balance 3.? Impaired activity tolerance Impairments are contributing to the following functional limitations: 1.? Difficulty with ambulation without assistive device 2.? Increased completion time for mobility ADL performance 3.? Increased risk for falls Patient is assessed as a 06072 moderate complexity based on the following: History: 67-year-old female with past medical history as indicated above Examination: As above Presentation: Stable Decision Makin moderate complexity Goals: N/A. PT evaluation only. Plan of Care/Treatment Plan: N/A. PT evaluation only. DISCHARGE RECOMMENDATIONS: [] ? Home with no services [] [X] ? Home with services.? Home when medically cleared by hospitalist.? Home when medically cleared by hospitalist.? Recommend home health PT services in order to progress mobility level using least restrictive assistive ambulatory device, assess home safety, identify additional equipment needs, and establish a functional maintenance program that will increase ability of patient to remain at home. [] ? Home with outpatient PT. [] ? SNF for continued rehabilitation [] [] ? Detention Care [] [] ? SNF versus LTC based on ability to participate and progress [] TREATMENT CODE/TIME: 24658 x 20 minutes for 1 unit, 04425 x 10 minutes for 1 unit (11:33-12:03). Thank you for the opportunity to participate in the care of this patient. Kayla Simpson PT, DPT, CLT [facility], [place]
--- NOTE | 2024-08-20 13:57 | PDOC.HHF2F_ITS ---
Home Health Referral Home Health Orders Clinical synopsis of why skilled professionals are needed: Gram negative sepsis and troponin elevation in patient with diabetes, SALCIDO cirrhosis, general weakness associated with acute illness, steroid use, ICU care. Medical diagnosis necessitation home health referral: weakness secondary to sepsis Registered Nurse: Check all that apply Instruct on new or changed medication(s)/assess compliance: Ordered Physical Therapist: Check all that apply Increase strength & endurance for safe mobility at home: Ordered To design/establish home maintenance program: Ordered Fall reduction therapy program for patient with history of frequent falls: Ordered Home safety evaluation and teaching/gait training including stair management (if applicable): Ordered Occupational Therapist: Evaluate and treat for patient unable to perform ADL/IADL/self-care: Ordered Women'S Activities Adviser: Assist with community resources: Ordered Assist with watermaster care planning: Ordered Home Bound Status Requires the aid of supportive device (check all that apply): Walker Describe why leaving home would require a considerable and taxing effort: Requires frequent rest periods Encounter Date and Reason: I certify that a FTF encounter for this patient was performed on August 20, 2024 and that such encounter was related to the primary reason the patient requires home health services. The encounter was conducted in the following [facility] er: * By me as the certifying physician, POLICY CHANGE CLERKS SUPERVISOR, PA or * By an inpatient physician, POLICY CHANGE CLERKS SUPERVISOR or PA during an inpatient stay who communicated findings to me, Certification And Authentication I certify that I composed the above information based on my clinical judgment relating to this patient's medical condition and, if applicable, clinical findings communicated to me by the NPP or inpatient physician who performed the FTF encounter. Name of Provider that will be monitoring home health services: Jefe Coffey
--- NOTE | 2024-08-20 14:00 | W.PM.DS.N ---
Date of service: 08/20/24 Time of Service: 14:01 DS: Diagnosis Discharge Diagnosis (1) Sepsis due to Gram-negative organism with septic shock: Status: Acute (2) Acute coronary syndrome with high troponin: Status: Acute (3) Liver cirrhosis secondary to SALCIDO: Status: Acute (4) Encephalopathy: Status: Acute (5) Type 2 diabetes mellitus: Status: Acute (6) Acute renal failure: Status: Acute (7) Hypomagnesemia: Status: Resolved (8) Anemia: (9) DVT prophylaxis: Status: Acute Discharge Plan Disposition Patient Disposition: Home W/Home Health Services Condition: Fair Discharge Details Reason For Visit: Sepsis Admit Date/Time: 08/16/24 21:30 Admit Provider: Jamal Mendoza Attending Provider: Jaaml Mendoza Primary Care Provider: Jefe Coffey Hospital Course Hospital Course: 69 yo F with history of SALCIDO cirrhosis, type 2 DM admitted with acute fever, tachycardia, elevated WBC, and hypotension and admitted for septic shock to the ICU. CT C/A/P was negative for a source. Urine was presumed source. She needed norepinephrine to maintain her diastolic blood pressures over the first 24 hours before this was weaned off. She was started on levofloxacin and linazolid in the ED due to her allergies. Initial gram stain showed GNR. Given the gram stain/culture results and long QT, stopped linazolid. Given risk factors for pseudomonas and degree of illness, change to cefepime and gentamicin on 08/18. Culture grew klebsiella sensitive to everything but ampicillin, antibiotics narrowed to ceftriaxone 08/19. She was given her dose of cefriaxone 08/20 before discharge on 3 more days of cefuroxime. With the initial hypotension and her history of pituitary adenoma, cortisol/ACTH was sent and she was started on hydrocortisone IV 08/18. This was stopped 08/20 after cortisol/ACTH levels returned in the normal range. She had elevated troponins but never had chest pain or EKG changes concerning for ischemia. Case was discussed with Dr. Sheppard from cardiology. This was type 2/demand ischemia. Echocardiogram showed normal LVEF, normal valve function, no vegetatoin. She was given high intensity statin and aspirin but not anticoagulated. Aspirin was stopped after she had a positive hemocult of stool given uncertain benefit. Statin was continued on discharge. Evaluation for CAD should be considered as outpatient. Consideration of the source of her heme positive stool should also be evaluated as an outpatient. Her blood sugars were high on the steroids, and her metformin was held after admission CT. She was given glargine insulin and sliding scale. She resumed her home semaglutide and metformin upon discharge. She had some concern for thrush and nystatin was started and prescribed at discharge. Her cirrhosis was stable. Her torsemide was held, but diuretic restarted 08/19. She was evaluated by PT on the day of discharge and referred to home health PT to work on strength and fall prevention. Her creatinine remained slightly above her baseline during her admission. She was initially hypotensive and she was on gentamicin for 2 days. She should have a repeat BMP in 1 week, which was ordered. She should follow up with her PCP after this test. Home Meds and New Rx's Prescriptions: New atorvastatin 40 mg Tablet 80 mg PO DAILY Qty: 30 0RF nystatin 100,000 unit/mL Suspension 500,000 unit PO 5X/DAY 4 Days Qty: 100 0RF cefuroxime axetil 500 mg tablet 500 mg PO BID 3 Days Qty: 6 0RF Rx Instructions: start 08/21 afternoon Continued lactulose 10 gram/15 mL solution 30 g PO TID Ozempic 0.25 mg or 0.5 mg (2 mg/3 mL) pen injector 0.25 mg subcut QWEEK Rx Instructions: for 4 weeks oxycodone 5 mg tablet 5 mg PO Q6H PRN metformin 1,000 mg Tablet 1,000 mg PO BID ropinirole 2 mg Tablet 2 mg PO BID nystatin 100,000 unit/gram Powder 6,000,000 unit topical TID Qty: 60 0RF Rx Instructions: apply to reddened skin folds pantoprazole 40 mg Tablet,Delayed Release (Dr/Ec) 40 mg PO BID polyethylene glycol 3350 17 gram Powder In Packet 17 g PO DAILY PRN PRN (Reason: Constipation) Qty: 0 0RF oxybutynin chloride 5 mg Tablet 5 mg PO BID Qty: 60 0RF torsemide 20 mg tablet 40 mg PO DAILY Patient Comments: TAKE TWO TABLETS BY MOUTH EVERY DAY fluoxetine 40 mg capsule 40 mg PO DAILY ondansetron HCl 4 mg tablet 4 mg PO DAILY PRN Patient Comments: TAKE ONE TABLET BY MOUTH EVERY DAY NEEDED FOR NAUSEA doxepin 10 mg capsule 20 mg PO QHS Qty: 0 0RF Patient Comments: 20 mg once a day potassium chloride 20 mEq tablet extended release 20 meq PO TID Qty: 90 0RF Rx Instructions: with meals magnesium oxide 400 mg magnesium tablet 400 mg PO DAILY Qty: 30 0RF Discharge Instructions Additional Instructions: You need 3 more days of antibiotics. These were sent to your pharmacy. You are due for these starting Saturday afternoon. We recommend you start the atorvastatin for your heart. You should talk with your primary care provider about doing additional heart testing because you had tests showing some heart damage when you were very sick. We gave you some aspirin but stopped this because of traces of blood in your stool. You should talk about this with your PCP. We also sent nystatin for thrush You need to recheck your kidney function in a week or so. You should see your PCP after this test (BMP) is done Activity:: Activity as Tolerated Equipment/Supplies:: Walker Diet:: Carb Counting Discharge Orders Other Ambulatory Orders: Basic Metabolic Panel (Routine) Timeframe: 1 Week Facility: [facility] - Location: Laboratory Outpatient - [facility] Ordered By: Gurpreet Melchor DS: Summary Time Spent with Patient providing and/or coordinating discharge services: Greater than 30 minutes Status at Discharge Functional status at discharge: uses cane/walker Overall status at discharge: patient is progressing back to baseline Mental Status: mental status grossly normal Speech and Movement: speech and movement normal Mood: congruent mood Affect: normal affect Quality:SDOH Health Related Social Needs: Health related social needs problem related to primary support group(Z63.9) Health related social needs details patient helps take care of her and she is now needing assistance Health related social needs details: patient helps take care of her and she is now needing assistance Exam Narrative Exam Narrative: Sitting up in chair, alert and oriented, x 4 and conversant, pleasant, no distress. Conjunctive clear, no icterus. No respiratory distress lung clear bilaterally. Heart regular with a 1-2/6 systolic murmur at LSB, no radiation Abdomen with active BS, not tender, no palpable ascites. Ext 1+ edema judy, not tender. Skin warm and dry with no significant rashes. spider telangiectasias on chest Psych Mental Status: mental status grossly normal Speech and Movement: speech and movement normal Mood: congruent mood Affect: normal affect DS: Data Vitals/I&O Vitals and I&O: Vital Signs Temperature 36.2 C L 08/20/24 11:32 Temperature Source Temporal Artery Scan 08/20/24 11:32 Pulse 72 08/20/24 11:32 Pulse 79 08/19/24 13:00 Respiratory Rate 15 08/20/24 11:32 Respiratory Effort Normal 08/16/24 23:15 Respiratory Depth Normal 08/16/24 23:15 Respiratory Pattern Normal 08/16/24 23:15 Blood Pressure 133/58 L 08/20/24 11:32 Blood Pressure Mean 72 08/19/24 10:01 Blood Pressure Position Supine 08/16/24 23:15 Pulse Oximetry 98 08/20/24 11:32 Oxygen Delivery Method Room Air 08/20/24 11:32 Oxygen Flow Rate 0 08/20/24 11:32 Pain Level 0 08/20/24 11:32 Comment Temp showing 36.1 via pichardo catheter. 08/18/24 13:05 Comment Norepi off 08/18/24 06:01 Intake & Output 08/19/24 08/20/24 08/20/24 23:59 11:59 23:59 Intake Total 50 / 556 750 / 750 Output Total 850 / 2450 1000 / 1000 Balance -800 / -1894 -250 / -250 Weight 108 kg Intake: IV 50 / 256 Oral 750 / 750 Output: Urine 850 / 1750 1000 / 1000 Other: Urine Color Light Prema Yellow Urine Appearance Clear Clear Comment Educated pt that this should come out tomorrow since she is moving around well Stool Size Large Moderate Stool Characteristics Liquid Liquid Voiding Methods Toilet Toilet Incontinent Data Completed and Pending Labs on day of discharge: Labs from last 24 hours 08/20/24 08/17/24 06:26 17:20 WBC 9.06 RBC 3.06 L Hgb 9.1 L Hct 29.2 L MCV 95 MCH 29.7 MCHC 31.2 L RDW 17.3 H Plt Count 96 L MPV 11.2 H Immature Gran % 0.9 Neutrophils % 87.9 Lymphocytes % 5.7 Monocytes % 5.2 Eosinophils % 0.0 Basophils % 0.3 Nucleated RBC % 0.0 Absolute Neutrophils 7.96 H Absolute Lymphocytes 0.52 L Absolute Monocytes 0.47 Absolute Eosinophils 0.00 Absolute Basophils 0.03 Sodium 141 Potassium 4.1 D Chloride 109 H Carbon Dioxide 23.5 Anion Gap 8.5 BUN 32 H Creatinine 1.3 H Est GFR (CKD-EPI 2020) 44.51 Glucose 238 H Calcium 8.3 L Total Bilirubin 0.96 AST 31 ALT 23 Alkaline Phosphatase 169 H Total Protein 5.6 L Albumin 1.8 L ACTH 27 PFSH All Active Problems (Updated 08/17/24 @ 09:19 by Gurpreet Melchor) Acute renal failure (Acute) DVT prophylaxis (Acute) Acute coronary syndrome with high troponin (Acute) Sepsis due to Gram-negative organism with septic shock (Acute) Altered mental status (Acute) Hypotension (Acute) Hypovolemia (Acute) Hyperammonemia (Acute) Encephalopathy (Acute) Presumed secondary to chronic liver disease. Chronically elevated ammonia level. On lactulose. 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 Left clavicle Dermoid cyst History of peptic ulcer disease Anemia Osteoarthritis Pituitary cyst Pancreatitis Hypertensive disorder Hepatic encephalopathy Excess skin of eyelid Edema Atrophy of vagina Atrophic vaginitis Actinic keratosis Hypersomnia GAVE (gastric antral vascular ectasia) Pituitary adenoma Submucosal neoplasm of stomach Restless legs JAYDEN (obstructive sleep apnea) Lung nodule Neoplasm of parotid gland Lumbar spondylosis Lesion of esophagus Dyslipidemia Depressive disorder Crohn's disease Chronic low back pain Biliary dyskinesia Atypical angina Anxiety Anemia Acquired arteriovenous malformation Cirrhosis SALCIDO (nonalcoholic steatohepatitis) CHF (congestive heart failure) Anasarca Surgical History History of oophorectomy, unilateral History of rotator cuff surgery bilateral History of total knee arthroplasty bilateral History of sleeve gastrectomy History of hysterectomy Family History Brother Cancer Lung Alcohol use disorder 2 older brothers Social History (Updated 08/16/24 @ 23:05 by Jamal Mendoza MD) Smoking/Tobacco Use Status: Never Smoking risk assessment performed?: Yes Alcohol Intake: never Drug use: Never Substance use type: does not use Housing: house Current gender identity: female Do you feel safe at home: Yes Do you feel safe in your relationship?: Yes Additional Social history: Lives with Arslan, and son in [place]. Moved from [place] in 2019. Has a dog and 8 pet birds. Time Spent with Patient Time Spent with Patient: 45-69 minutes Time was spent: preparing to see the patient(eg.review tests), obtaining and/or reviewing separately otained hiistory, ordering medications,tests, procedures, referring, communicating with other health floor care technician, indepentently interpreting results, counseling the patient and care coordination
[2024-08-20] MEDS: cefTRIAXone 2 GM/50 ML BAG IVPB (14:13)
== END 2024-08-20 14:48 | disposition home health service (06) | DRG 871 ==
LOC: ER 23:27 → ICU 23:30 → MS 08-19 13:25
PROVIDERS: Family Medicine; Admitting Provider Family Medicine; Emergency Provider Emergency Medicine; PCP Family Medicine; Visit Provider Family Medicine
DX: A41.50 Gram-negative sepsis, unspecified (principal); R65.21 Severe sepsis with septic shock; E72.20 Disorder of urea cycle metabolism, unspecified; G93.40 Encephalopathy, unspecified; N17.9 Acute kidney failure, unspecified; Z16.11 Resistance to penicillins; I24.89 Other forms of acute ischemic heart disease; B37.0 Candidal stomatitis; E86.1 Hypovolemia; L29.9 Pruritus, unspecified; E11.9 Type 2 diabetes mellitus without complications; K76.82 Hepatic encephalopathy; E83.42 Hypomagnesemia; D64.9 Anemia, unspecified; K74.69 Other cirrhosis of liver; K75.81 Nonalcoholic steatohepatitis (NASH); B96.1 Klebsiella pneumoniae [K. pneumoniae] as the cause of diseases classified elsewhere; R19.5 Other fecal abnormalities
CPT/HCPCS: 00123; 36415; 36556; 36592; 51702; 71045; 80048; 80053; 80170; 80307; 82533; 82803; 82805; 83690; 87040; 87077; 87637; 93005; 93306; 96361; 96365; 96366; 96367; 97162; 97530; 99291; J1650; 70450; 74177; 80320; 81003; 81015; 82024; 82140; 82272; 83605; 83735; 83880; 84443; 84484; 85025; 85610; 85730; 87186; 93010; 99222; 99233; 99239; J0692; J0696; J0780; J1580; J1720; J1815; J1940; J1956; J2020; J3475; J3490

== ENCOUNTER 2024-08-21 17:16 | Inpatient (IN) | payer MEDICARE, SELFPAY ==
[2024-08-21] VITALS (33 sets, daily range): BP systolic 129–153; BP diastolic 37–75; PULSE 66–81; RESP 4–18; TEMP 36–36.9; O2SAT 81–100
--- NOTE | 2024-08-21 17:15 | RT.EKG_ITS ---
APPROVED REPORT Exam: Resting ECG Reason for Exam: dyspnea Patient Location: E HR:75 bpm ECG Measurements Heart Rate 75 AXIS LA 172 P 46 QRSd 91 QRS 24 QT 382 T 14 QTc 427 Conclusion Sinus rhythm...normal P axis, V-rate 60- 99 Sinus rhythm normal axis normal intervals nonischemic
--- NOTE | 2024-08-21 17:45 | DI.RAD_ITS ---
Exam(s) XR CHEST 2V PA LATERAL EXAM: XR CHEST 2V PA LATERAL CLINICAL HISTORY: cough with SOB. TECHNIQUE: 2D digital imaging was performed. COMPARISON: CR,XR XR PORTABLE CHEST AP POST LINE from 08/16/2024 FINDINGS: 2 views: Heart size is normal. The mediastinum is not widened. The previously present right jugular central line is been removed. There are no confluent infiltrates nor obvious pleural effusions. Increased markings are most probab ly related to the portable technique and body habitus, more so than pulmonary congestion. There are no Segun B lines. IMPRESSION: No acute pulmonary findings. DATA REPOSITORY: RADIATION DOSE DELIVERED:
--- NOTE | 2024-08-21 17:56 | ED.GENADUL_ITS ---
Discharge Plan Discharge Details Chief Complaint: GenMedical Primary Care Provider: Jefe Coffey ED Provider: Tara Kiser Home Meds and New Rx's Prescriptions: No Action lactulose 10 gram/15 mL solution 30 g PO TID Ozempic 0.25 mg or 0.5 mg (2 mg/3 mL) pen injector 0.25 mg subcut QWEEK Rx Instructions: for 4 weeks oxycodone 5 mg tablet 5 mg PO Q6H PRN metformin 1,000 mg Tablet 1,000 mg PO BID ropinirole 2 mg Tablet 2 mg PO BID nystatin 100,000 unit/gram Powder 6,000,000 unit topical TID Qty: 60 0RF Rx Instructions: apply to reddened skin folds atorvastatin 40 mg Tablet 80 mg PO DAILY Qty: 30 0RF nystatin 100,000 unit/mL Suspension 500,000 unit PO 5X/DAY 4 Days Qty: 100 0RF cefuroxime axetil 500 mg tablet 500 mg PO BID 3 Days Qty: 6 0RF Rx Instructions: start 08/21 afternoon pantoprazole 40 mg Tablet,Delayed Release (Dr/Ec) 40 mg PO BID polyethylene glycol 3350 17 gram Powder In Packet 17 g PO DAILY PRN PRN (Reason: Constipation) Qty: 0 0RF oxybutynin chloride 5 mg Tablet 5 mg PO BID Qty: 60 0RF torsemide 20 mg tablet 40 mg PO DAILY Patient Comments: TAKE TWO TABLETS BY MOUTH EVERY DAY fluoxetine 40 mg capsule 40 mg PO DAILY ondansetron HCl 4 mg tablet 4 mg PO DAILY PRN Patient Comments: TAKE ONE TABLET BY MOUTH EVERY DAY NEEDED FOR NAUSEA doxepin 10 mg capsule 20 mg PO QHS Qty: 0 0RF Patient Comments: 20 mg once a day potassium chloride 20 mEq tablet extended release 20 meq PO TID Qty: 90 0RF Rx Instructions: with meals magnesium oxide 400 mg magnesium tablet 400 mg PO DAILY Qty: 30 0RF HPI General Date/Time Provider Initiated Documentation: 08/21/24 17:16 . HPI Narrative: Eli is a 69-year-old female with history of Gallagher cirrhosis, T2DM, and recent hospitalization for septic shock presents to the emergency department with feeling unwell. She reports that she was discharged yesterday afternoon but started feeling unwell today after her shower. She reports she has had woozy feeling in her head, sore throat/swollen glands in her neck, decreased appetite with little PO intake today, cough with feeling of fullness in her chest, worsening pedal edema, and swelling in her lower abdomen that she attributes to fluid buildup. Today she had a black stool that was diarrhea, sa ys her stool was normal color yesterday. She has been taking her antibiotics as prescribed, but not her torsemide today because she is concerned that urinating too much at home. She is not on any anticoagulation. Physical exam remarkable for alert and oriented patient in no acute distress. Easy work of breathing, occasional inspiratory crackles noted. Heart murmur noted, regular rate and rhythm. Abdomen is soft, nondistended, nontender to palpation some edema noted and no lower abdomen. No rashes noted. Hemoccult negative. DDx includes but is not limited to: ACS, cardiac arrhythmia, electrolyte imbalance, dehydration, CHF, viral illness, occult infection such as pneumonia or treatment resistant UTI I independently interpreted the following tests: EKG reassuring, mild lateral ST depressions noted, this does not appear to be new. CBC reassuring, mild anemia unchanged from previous. Thrombocytopenia also improved. CMP notable for hypokalemia, potassium 3.0. Slightly elevated creatinine, 1.4 today vs 1.3 on 08/20/24 and 1.2 on 08/19/24. Initial troponin elevated at 215, this is decreased from 503 on 08/18/2024 and appears to be downtrending. BNP is elevated at 663, elevated from 462 on 08/16/2024. I did review discharge summary from 08/20/24. While hospitalized she was diagnosed with acute renal failure, anemia, elevated troponin, and sepsis with septic shock. Urine was presumed source of infection. While in the emergency department Eli received p.o. supplementation for hypokalemia. Workup today reassuring, most likely CHF exacerbated by medication no ncompliance, as she did not take her torsemide today. Discussed case with Dr Carlson, hospitalist. Patient to be admitted for CHF exacerbation and medication management. Related Data Home Medications ?Medication ?Instructions ?Recorded ?Confirmed metformin 1,000 mg tablet 1,000 mg PO BID 11/09/22 08/21/24 ropinirole 2 mg tablet 2 mg PO BID 11/09/22 08/21/24 pantoprazole 40 mg tablet,delayed 40 mg PO BID 12/15/22 08/21/24 release oxycodone 5 mg tablet 5 mg PO Q6H PRN 01/23/23 08/21/24 nystatin 100,000 unit/gram topical 6,000,000 unit topical TID #60 02/05/23 08/21/24 powder grams lactulose 10 gram/15 mL oral 30 g PO TID 06/26/23 08/21/24 solution polyethylene glycol 3350 17 gram 17 g PO DAILY PRN PRN Constipation 07/01/23 08/21/24 oral powder packet #0 ea oxybutynin chloride 5 mg tablet 5 mg PO BID #60 tabs 11/13/23 08/21/24 semaglutide 0.25 mg or 0.5 mg (2 0.25 mg subcut QWEEK 12/12/23 08/21/24 mg/3 mL) subcutaneous pen injector (Ozempic) torsemide 20 mg tablet 40 mg PO DAILY 01/23/24 08/21/24 fluoxetine 40 mg capsule 40 mg PO DAILY 01/24/24 08/21/24 doxepin 10 mg capsule 20 mg (2 x 10 mg) PO QHS #0 caps 04/16/24 08/21/24 ondansetron HCl 4 mg tablet 4 mg PO DAILY PRN 04/16/24 08/21/24 magnesium oxide 400 mg PO DAILY #30 tabs 06/02/24 08/21/24 potassium chloride 20 mEq 20 meq PO TID #90 tabs 06/02/24 08/21/24 tablet,extended release atorvastatin 40 mg tablet 80 mg (2 x 40 mg) PO DAILY #30 tabs 08/20/24 08/21/24 cefuroxime axetil 500 mg tablet 500 mg PO BID 3 days #6 tabs 08/20/24 08/21/24 nystatin 100,000 unit/mL oral 500,000 unit (5 mL) PO 5X/DAY 4 08/20/24 08/21/24 suspension days #100 mL Previous Rx's ?Medication ?Instructions ?Recorded nystatin 100,000 unit/gram topical 6,000,000 unit topical TID #60 02/05/23 powder grams polyethylene glycol 3350 17 gram 17 g PO DAILY PRN PRN Constipation 07/01/23 oral powder packet #0 ea oxybutynin chloride 5 mg tablet 5 mg PO BID #60 tabs 11/13/23 doxepin 10 mg capsule 20 mg (2 x 10 mg) PO QHS #0 caps 04/16/24 magnesium oxide 400 mg PO DAILY #30 tabs 06/02/24 potassium chloride 20 mEq 20 meq PO TID #90 tabs 06/02/24 tablet,extended release atorvastatin 40 mg tablet 80 mg (2 x 40 mg) PO DAILY #30 tabs 08/20/24 cefuroxime axetil 500 mg tablet 500 mg PO BID 3 days #6 tabs 08/20/24 nystatin 100,000 unit/mL oral 500,000 unit (5 mL) PO 5X/DAY 4 08/20/24 suspension days #100 mL Allergies Allergy/AdvReac Type Severity Reaction Status Date / Time Penicillins Allergy Severe Swelling/Ed Verified 08/21/24 17:29 sophie tramadol Allergy Severe Swelling/Ed Verified 08/21/24 17:29 sophie apricot Allergy Intermediate Hives Verified 08/21/24 17:29 ferrous sulfate Allergy Unknown Other (See Verified 08/21/24 17:29 Comment) raspberry Allergy Other (See Verified 08/21/24 17:29 Comment) vancomycin AdvReac Intermediate Other (See Verified 08/21/24 17:29 Comment) General Stated Complaint: GenMedical CHELA: 3 Review of Systems Narrative: see HPI Exam Const General: cooperative, healthy appearing, comfortable and no acute distress Nutritional Appearance: overweight Orientation: alert and oriented x3 HENMT Mouth: oral mucosae normal (no obvious white patches noted), moist mucous membranes abnormal (slightly tacky MM) and no muffled voice Neck Neck: normal visual inspection, full ROM and no lymphadenopathy Resp Effort & Inspection: normal respiratory effort and able to speak in complete sentences Auscultation: rales (occasional inspiratory crackles) Cardio Rate: regular rate Rhythm: regular rhythm Heart Sounds: murmur GI Inspection: normal to inspection, large pannus and obesity Palpation: soft, not firm, no guarding, not rigid and nontender Auscultation: normal bowel sounds Rectal Exam - female: visual inspection normal, normal sphincter tone and heme negative stool Other: no rashes noted Course Vital Signs Vital signs: Vital Signs Temperature 36.4 C 08/21/24 17:20 Pulse 75 08/21/24 17:20 Respiratory Rate 16 08/21/24 17:20 Blood Pressure 153/75 H 08/21/24 17:20 Pulse Oximetry 97 08/21/24 17:20 Temperature 36.4 C 08/21/24 17:20 Temperature Source Temporal Artery Scan 08/21/24 17:20 Pulse 75 08/21/24 17:20 Respiratory Rate 16 08/21/24 17:20 Blood Pressure 153/75 H 08/21/24 17:20 Pulse Oximetry 97 08/21/24 17:20 Oxygen Delivery Method Room Air 08/21/24 17:20 Oxygen Flow Rate 0 08/21/24 17:20 Pain Level 0 08/21/24 17:20 Medical Decision Making Quality:SDOH Health Related Social Needs: Health related social needs problem related to primary support group(Z63.9) Health related social needs details patient helps take care of her and she is now needing assistance [facility] All Active Problems (Updated 08/21/24 @ 00:05 by [employer]) Acute renal failure (Acute) Acute coronary syndrome with high troponin (Acute) Sepsis due to Gram-negative organism with septic shock (Acute) Type 2 diabetes mellitus (Acute) Liver cirrhosis secondary to GALLAGHER (Acute) Medical History (Updated 08/21/24 @ 00:05 by [employer]) Hypovolemia Hyperammonemia Encephalopathy Presumed secondary to chronic liver disease. Chronically elevated ammonia level. On lactulose. 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 Left clavicle Excess skin of eyelid Pituitary cyst Hypersomnia GAVE (gastric antral vascular ectasia) JAYDEN (obstructive sleep apnea) Acquired arteriovenous malformation Atypical angina Biliary dyskinesia Lung nodule Submucosal neoplasm of stomach Anemia Dermoid cyst History of peptic ulcer disease Osteoarthritis Pancreatitis Hypertensive disorder Hepatic encephalopathy Edema Atrophy of vagina Atrophic vaginitis Actinic keratosis Pituitary adenoma Restless legs Neoplasm of parotid gland Lumbar spondylosis Lesion of esophagus Dyslipidemia Depressive disorder Crohn's disease Chronic low back pain Anxiety Anemia Cirrhosis GALLAGHER (nonalcoholic steatohepatitis) CHF (congestive heart failure) Anasarca Surgical History History of oophorectomy, unilateral History of rotator cuff surgery bilateral History of total knee arthroplasty bilateral History of sleeve gastrectomy History of hysterectomy Family History Brother Cancer Lung Alcohol use disorder 2 older brothers Social History (Updated 08/16/24 @ 23:05 by Jamal Mendoza MD) Smoking/Tobacco Use Status: Never Smoking risk assessment performed?: Yes Alcohol Intake: never Drug use: Never Substance use type: does not use Housing: house Current gender identity: female Do you feel safe at home: Yes Do you feel safe in your relationship?: Yes Additional Social history: Lives with Arslan, and son in [place]. Moved from [place] in 2020. Has a dog and 8 pet birds.
[2024-08-21 18:50] LABS: Abs Immature Grans 0.07 10^3/uL (0.0-0.06); Absolute Basophil Count 0.02 10^3/uL (0.0-0.2); Absolute Eosinophil Count 0.19 10^3/uL (0.0-0.7); Absolute Lymphocyte Count 0.87 10^3/uL (1.2-3.4); Absolute Monocyte Count 0.73 10^3/uL (0.1-0.8); Absolute Neutrophil Count 2.86 10^3/uL (1.2-6.7); Basophils % 0.4 %; HGB 9.6 g/dL (11.2-15.7); Immature Grans % 1.5 %; Lymphocytes % 18.4 %; MCH 29.3 pg (27.0-33.0); MCV 95 fL (80-95); Monocytes % 15.4 %; Neutrophils % 60.3 %; Platelet Count 108 10^3/uL (130-400); RBC 3.28 10^6/uL (3.93-5.22); RDW-SD 59.1 fL; WBC 4.74 10^3/uL (4.4-10.8)
[2024-08-21 19:11] LABS: ALT 32 U/L (14-59); AST 49 U/L (15-37); Albumin 1.9 g/dL (3.4-5.0); Alkaline Phosphatase 178 U/L (46-116); Anion Gap 8.4 mmol/L (3-11); BUN 28 mg/dL (7-18); Bilirubin, Total 1.05 mg/dL (0.2-1.0); CO2 27.6 mmol/L (21.0-32.0); CREATININE 1.4 mg/dL (0.55-1.02); Calcium 8.4 mg/dL (8.5-10.1); Chloride 106 mmol/L (98-107); Estimated GFR 40.73 (mL/min/1.73m2); Glucose 267 mg/dL (74-106); NT-proBNP 663 pg/mL (<300); Sodium 142 mmol/L (136-145); Total Protein 5.9 g/dL (6.4-8.2)
[2024-08-21 19:14] LABS: Troponin I 215 ng/L (<or=51)
[2024-08-21 19:17] LABS: COVID-19 PCR Negative (Negative); Influenza A PCR Negative (Negative); Influenza B PCR Negative (Negative); RSV PCR Negative (Negative)
[2024-08-21 19:26] LABS: Source Nasopharynx
[2024-08-21 19:34] LABS: Procalcitonin 4.1 ng/mL
[2024-08-21] MEDS: Potassium Bicarbonate/Cit AC 25 MEQ TABLET.EFF 50 MEQ PO (19:59)
[2024-08-21 20:24] LABS: Troponin I 212 ng/L (<or=51)
[2024-08-21 20:32] LABS: Magnesium 1.7 mg/dL (1.8-2.4)
--- NOTE | 2024-08-21 21:08 | W.PM.HP.N ---
Date of service: 08/21/24 Time of Service: 21:09 Assessment and Plan Assessment and plan (1) CHF exacerbation: Start date: 08/21/24 Status: Acute Assessment and plan: This is a 69-year-old lady with recurrent hospitalizations now presenting with exacerbation of CHF status post fluid resuscitation for septic shock. She is chronically noncompliant with medical therapy at home. She will be admitted for IV diuresis with Lasix 80 mg twice daily and repletion of electrolytes which are low. She will be encouraged to be compliant with outpatient oral medication therapy despite her dislike of their effects. She is a full code Qualifiers: Heart failure type: diastolic Qualified Code(s): I50.33 - Acute on chronic diastolic (congestive) heart failure (2) Hypokalemia: Start date: 08/21/24 Status: Acute Assessment and plan: Replete and follow-up clinically. Continue oral supplementation chronic oral diarrhea (3) Hypomagnesemia: Start date: 08/21/24 Status: Acute Assessment and plan: Replete and follow-up clinically. Continue oral supplements with chronic diuretics. 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 Follow-up clinically. History of Present Illness History of Present Illness Chief Complaint: Feeling unwell over 24 hours after discharge from hospital Narrative: This is a 69-year-old chronically ill female patient who has multiple hospitalizations for recurrent issues recently hospitalized for shock and receiving IV fluid resuscitation during that hospitalization. She has a history of Salcido cirrhosis with recurrent encephalopathy and CHF which she does not usually take her diuretic because of increased urination which is bothersome. She is also noncompliant with her lactulose for recurrent encephalopathy. After discharge from the recent hospitalization the patient began to have increased peripheral edema and weight gain which was occurring during hospital stay because of fluid resuscitation according to the patient. She has had decreased appetite and felt woozy with a sore throat and swollen glands in her neck but no fever or chills. She did have a positive blood culture for Klebsiella pneumonia and was on cefuroxime orally at discharge and did take 1 dose at home. This is a twice a day medication. Once again may not be compliant with this as well. In the ED the patient was found to have exacerbation of CHF and was initiated on Lasix. She also had deficiencies of potassium and magnesium with oral supplements at home once again possible intake. She will be admitted for continued IV Lasix therapy and repletion of electrolytes. She remains a full code. Review of Systems Narrative: 13 point review of systems otherwise unrevealing or stable. [facility] All Active Problems (Updated 08/21/24 @ 23:31 by Devin Carlson) Bacteremia due to Klebsiella pneumoniae (Acute) Hypomagnesemia (Acute) Hypokalemia (Acute) CHF exacerbation (Acute) Acute renal failure (Acute) Acute coronary syndrome with high troponin (Acute) Sepsis due to Gram-negative organism with septic shock (Acute) Type 2 diabetes mellitus (Chronic) Liver cirrhosis secondary to SALCIDO (Acute) Medical History Hypovolemia Hyperammonemia Encephalopathy Presumed secondary to chronic liver disease. Chronically elevated ammonia level. On lactulose. 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 Left clavicle Excess skin of eyelid Pituitary cyst Hypersomnia GAVE (gastric antral vascular ectasia) JAYDEN (obstructive sleep apnea) Acquired arteriovenous malformation Atypical angina Biliary dyskinesia Lung nodule Submucosal neoplasm of stomach Anemia Dermoid cyst History of peptic ulcer disease Osteoarthritis Pancreatitis Hypertensive disorder Hepatic encephalopathy Edema Atrophy of vagina Atrophic vaginitis Actinic keratosis Pituitary adenoma Restless legs Neoplasm of parotid gland Lumbar spondylosis Lesion of esophagus Dyslipidemia Depressive disorder Crohn's disease Chronic low back pain Anxiety Anemia Cirrhosis SALCIDO (nonalcoholic steatohepatitis) CHF (congestive heart failure) Anasarca Surgical History History of oophorectomy, unilateral History of rotator cuff surgery bilateral History of total knee arthroplasty bilateral History of sleeve gastrectomy History of hysterectomy Family History Brother Cancer Lung Alcohol use disorder 2 older brothers Social History Smoking/Tobacco Use Status: Never Smoking risk assessment performed?: Yes Alcohol Intake: never Drug use: Never Substance use type: does not use Housing: house Current gender identity: female Do you feel safe at home: Yes Do you feel safe in your relationship?: Yes Additional Social history: Lives with Arslan, and son in [place]. Moved from [place] in 2019. Has a dog and 8 pet birds. Meds Allergies and Home Medications Allergies Allergy/AdvReac Type Severity Reaction Status Date / Time Penicillins Allergy Severe Swelling/Ed Verified 08/21/24 17:29 sophie tramadol Allergy Severe Swelling/Ed Verified 08/21/24 17:29 sophie apricot Allergy Intermediate Hives Verified 08/21/24 17:29 ferrous sulfate Allergy Unknown Other (See Verified 08/21/24 17:29 Comment) raspberry Allergy Other (See Verified 08/21/24 17:29 Comment) vancomycin AdvReac Intermediate Other (See Verified 08/21/24 17:29 Comment) Home Medications ?Medication ?Instructions ?Recorded ?Confirmed ?Type metformin 1,000 mg tablet 1,000 mg PO BID 11/09/22 08/21/24 History ropinirole 2 mg tablet 2 mg PO BID 11/09/22 08/21/24 History pantoprazole 40 mg tablet,delayed 40 mg PO BID 12/15/22 08/21/24 History release oxycodone 5 mg tablet 5 mg PO Q6H PRN 01/23/23 08/21/24 History nystatin 100,000 unit/gram topical 6,000,000 unit topical TID #60 02/05/23 08/21/24 Rx powder grams lactulose 10 gram/15 mL oral 30 g PO TID 06/26/23 08/21/24 History solution polyethylene glycol 3350 17 gram 17 g PO DAILY PRN PRN Constipation 07/01/23 08/21/24 Rx oral powder packet #0 ea oxybutynin chloride 5 mg tablet 5 mg PO BID #60 tabs 11/13/23 08/21/24 Rx semaglutide 0.25 mg or 0.5 mg (2 0.25 mg subcut QWEEK 12/12/23 08/21/24 History mg/3 mL) subcutaneous pen injector (Ozempic) torsemide 20 mg tablet 40 mg PO DAILY 01/23/24 08/21/24 History fluoxetine 40 mg capsule 40 mg PO DAILY 01/24/24 08/21/24 History doxepin 10 mg capsule 20 mg (2 x 10 mg) PO QHS #0 caps 04/16/24 08/21/24 Rx ondansetron HCl 4 mg tablet 4 mg PO DAILY PRN 04/16/24 08/21/24 History magnesium oxide 400 mg PO DAILY #30 tabs 06/02/24 08/21/24 Rx potassium chloride 20 mEq 20 meq PO TID #90 tabs 06/02/24 08/21/24 Rx tablet,extended release atorvastatin 40 mg tablet 80 mg (2 x 40 mg) PO DAILY #30 tabs 08/20/24 08/21/24 Rx cefuroxime axetil 500 mg tablet 500 mg PO BID 3 days #6 tabs 08/20/24 08/21/24 Rx nystatin 100,000 unit/mL oral 500,000 unit (5 mL) PO 5X/DAY 4 08/20/24 08/21/24 Rx suspension days #100 mL Exam Narrative Exam Narrative: General: Patient appears older than stated age, alert and oriented x 3 and in no acute distress. She is wearing BiPAP which is a nighttime treatment for JAYDEN. HEENT: Normocephalic, course and facial features, eyes with pupils equal and reactive light symmetrically, extraocular movement intact and sclera anicteric. Oropharynx with moist mucosa. Neck: Supple without JVD. Back: Stooped posture without CVA tenderness. Lungs: Fair aeration clear to auscultation percussion with no focalizing rales or rhonchi. No expiratory wheeze. Breast: Exam deferred. Heart: Regular rate and rhythm with 4/6 systolic murmur left sternal border. No rubs or gallops. Abdomen: Obese contour, soft and nontender to palpation with no palpable hepatosplenomegaly. Bowel sounds positive all quadrants. Genitalia/rectal: Exam deferred. Extremities: 2+ pitting edema lower extremities which appears chronic with chronic skin changes but no skin breakdown. No cyanosis or clubbing. Fair capillary refill. Skin: Normal color, warm and dry. Neuro: Cranial nerves II through XII gross intact, no focalizing motor deficits. No tremor. Psych: Flattened affect with depressed mood. No abnormal thought processes. Remote and recent memory grossly intact. Results Imaging Imaging Studies: EXAM: XR CHEST 2V PA LATERAL CLINICAL HISTORY: cough with SOB. TECHNIQUE: 2D digital imaging was performed. COMPARISON: CR,XR XR PORTABLE CHEST AP POST LINE from 08/16/2024 FINDINGS: 2 views: Heart size is normal. The mediastinum is not widened. The previously present right jugular central line is been removed. There are no confluent infiltrates nor obvious pleural effusions. Increased markings are most probably related to the portable technique and body habitus, more so than pulmonary congestion. There are no Segun B lines. IMPRESSION: No acute pulmonary findings. Date of Exam: 08/17/24 EXAM: Comprehensive 2D, Doppler, and color-flow Echocardiogram Indications: Hypotension, Elevated troponin, Fever, Sepsis, Tachycardia Other Information Study Quality: Fair. Technically limited study due to body habitus, inability to position patient exam done supine bedside icu. Conclusion Normal left ventricular wall thickness and chamber size. Ejection fraction is 60%. Wall motion is normal Right ventricle is not well-visualized Left atrium is borderline dilated. Normal right atrial size There is no significant structural valvular disease Estimated right ventricular systolic pressure is 43 mmHg Labs 08/22/24 06:08 08/22/24 06:08 Labs: Laboratory Results - last 24 hr 08/21/24 08/21/24 08/21/24 18:27 18:35 19:18 WBC 4.74 RBC 3.28 L Hgb 9.6 L Hct 31.0 L MCV 95 MCH 29.3 MCHC 31.0 L RDW 17.0 H Plt Count 108 L MPV 10.0 Immature Gran % 1.5 Neutrophils % 60.3 Lymphocytes % 18.4 Monocytes % 15.4 Eosinophils % 4.0 Basophils % 0.4 Nucleated RBC % 0.0 Absolute Neutrophils 2.86 Absolute Lymphocytes 0.87 L Absolute Monocytes 0.73 Absolute Eosinophils 0.19 Absolute Basophils 0.02 Sodium 142 Potassium 3.0 L D Chloride 106 Carbon Dioxide 27.6 Anion Gap 8.4 BUN 28 H Creatinine 1.4 H Est GFR (CKD-EPI 2020) 40.73 Glucose 267 H Calcium 8.4 L Magnesium 1.7 L Total Bilirubin 1.05 H AST 49 H ALT 32 Alkaline Phosphatase 178 H Troponin I 215 H* 212 H* NT-Pro-B Natriuret Pep 663 H Total Protein 5.9 L Albumin 1.9 L Procalcitonin 4.1 COVID-19 Source Nasopharynx SARS-CoV-2 (PCR) Negative Influenza Type A (PCR) Negative Influenza Type B (PCR) Negative RSV (PCR) Negative Last Vital Signs Temp 36 C L 08/21/24 18:27 Pulse 68 08/21/24 18:46 Resp 13 08/21/24 21:00 BP 153/37 H 08/21/24 18:46 Pulse Ox 100 08/21/24 21:00 Time Spent Time spent with Patient: >75 minutes Time was spent: preparing to see the patient(eg.review tests), obtaining and/or reviewing separately otained hiistory, ordering medications,tests, procedures, indepentently interpreting results and counseling the patient
[2024-08-21 21:46] LABS: Source Nasal/Nares
[2024-08-21 22:04] LABS: Troponin I 157 ng/L (<or=51)
[2024-08-21 22:20] LABS: COVID-19 PCR Negative (Negative)
[2024-08-21] MEDS: Furosemide 100 MG/10 ML VIAL 80 MG IVP (23:05)
--- NOTE | 2024-08-21 23:10 | W.PCEDHO ---
Registration Status: Primary Language: Preferred Language: ED Information & Data Chief Complaint GenMedical 08/21/24 18:41 Chief Complaint GenMedical 08/21/24 18:00 Triage Note Patient was just discharged 08/21/24 17:20 from from med-surg yesterday . But last night started feeling very tired. she state she has oral thrush and she cant eat and she feeling very tired. Having SOB sometimes. Reported that she is feeling fluid overload and very weak as if her legs are going to give out. 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 Excess skin of eyelid Pituitary cyst Hypersomnia GAVE (gastric antral vascular ectasia) JAYDEN (obstructive sleep apnea) Acquired arteriovenous malformation Atypical angina Biliary dyskinesia Lung nodule Submucosal neoplasm of stomach Anemia Dermoid cyst History of peptic ulcer disease Osteoarthritis Pancreatitis Hypertensive disorder Hepatic encephalopathy Edema Atrophy of vagina Atrophic vaginitis Actinic keratosis Pituitary adenoma Restless legs Neoplasm of parotid gland Lumbar spondylosis Lesion of esophagus Dyslipidemia Depressive disorder Crohn's disease Chronic low back pain Anxiety Anemia Cirrhosis SALCIDO (nonalcoholic steatohepatitis) CHF (congestive heart failure) Anasarca (Last Reviewed 08/21/24 @ 21:16 by Devin Carlson) History of oophorectomy, unilateral History of rotator cuff surgery History of total knee arthroplasty History of sleeve gastrectomy History of hysterectomy Most Recent Vital Signs Temperature 36 C L 08/21/24 18:27 Temperature Source Skin 08/21/24 18:27 Pulse 68 08/21/24 18:46 Pulse 72 08/21/24 23:00 Respiratory Rate 11 L 08/21/24 23:00 Respiratory Effort Normal 08/21/24 18:41 Respiratory Depth Normal 08/21/24 18:34 Respiratory Pattern Normal 08/21/24 18:34 Blood Pressure 153/37 H 08/21/24 18:46 Blood Pressure Mean 80 08/21/24 18:46 Pulse Oximetry 95 08/21/24 23:00 Oxygen Delivery Method Room Air 08/21/24 18:27 Oxygen Flow Rate 0 08/21/24 17:20 Pain Level 0 08/21/24 18:27 Allergies Penicillins Allergy (Severe, Verified 08/21/24 17:29) Swelling/Edema tramadol Allergy (Severe, Verified 08/21/24 17:29) Swelling/Edema apricot Allergy (Intermediate, Verified 08/21/24 17:29) Hives apricots, fruit. ferrous sulfate Allergy (Unknown, Verified 08/21/24 17:29) Other (See Comment) raspberry Allergy (Verified 08/21/24 17:29) Other (See Comment) vancomycin Adverse Reaction (Intermediate, Verified 08/21/24 17:29) Other (See Comment) Red Man Syndrome IV IV Catheter Type [Right Saline Lock Forearm] IV Catheter Gauge [Right 20 Forearm] Diagnostics 08/21/24 08/21/24 08/21/24 Range/Units 21:44 21:30 19:18 WBC (4.4-10.8) 10^3/uL RBC (3.93-5.22) 10^6/uL Hgb (11.2-15.7) g/dL Hct (36.0-46.0) % MCV (80-95) fL MCH (27.0-33.0) pg MCHC (32.0-36.0) % RDW (11.7-14.6) % Plt Count (130-400) 10^3/uL MPV (8.0-11.0) fL Immature Gran % % Neutrophils % % Lymphocytes % % Monocytes % % Eosinophils % % Basophils % % Nucleated RBC % (0.0-0.3) % Absolute Neutrophils (1.2-6.7) 10^3/uL Absolute Lymphocytes (1.2-3.4) 10^3/uL Absolute Monocytes (0.1-0.8) 10^3/uL Absolute Eosinophils (0.0-0.7) 10^3/uL Absolute Basophils (0.0-0.2) 10^3/uL Sodium (136-145) mmol/L Potassium (3.5-5.1) mmol/L Chloride (98-107) mmol/L Carbon Dioxide (21.0-32.0) mmol/L Anion Gap (3-11) mmol/L BUN (7-18) mg/dL Creatinine (0.55-1.02) mg/dL Est GFR (CKD-EPI 2020) (mL/min/1.73m2) Glucose (74-106) mg/dL Calcium (8.5-10.1) mg/dL Magnesium 1.7 L (1.8-2.4) mg/dL Total Bilirubin (0.2-1.0) mg/dL AST (15-37) U/L ALT (14-59) U/L Alkaline Phosphatase (46-116) U/L Troponin I 157 H* 212 H* (<or=51) ng/L NT-Pro-B Natriuret Pep (<300) pg/mL Total Protein (6.4-8.2) g/dL Albumin (3.4-5.0) g/dL Procalcitonin ng/mL COVID-19 Source Nasal/Nares SARS-CoV-2 (PCR) Negative (Negative) Influenza Type A (PCR) (Negative) Influenza Type B (PCR) (Negative) RSV (PCR) (Negative) 08/21/24 08/21/24 Range/Units 18:35 18:27 WBC 4.74 (4.4-10.8) 10^3/uL RBC 3.28 L (3.93-5.22) 10^6/uL Hgb 9.6 L (11.2-15.7) g/dL Hct 31.0 L (36.0-46.0) % MCV 95 (80-95) fL MCH 29.3 (27.0-33.0) pg MCHC 31.0 L (32.0-36.0) % RDW 17.0 H (11.7-14.6) % Plt Count 108 L (130-400) 10^3/uL MPV 10.0 (8.0-11.0) fL Immature Gran % 1.5 % Neutrophils % 60.3 % Lymphocytes % 18.4 % Monocytes % 15.4 % Eosinophils % 4.0 % Basophils % 0.4 % Nucleated RBC % 0.0 (0.0-0.3) % Absolute Neutrophils 2.86 (1.2-6.7) 10^3/uL Absolute Lymphocytes 0.87 L (1.2-3.4) 10^3/uL Absolute Monocytes 0.73 (0.1-0.8) 10^3/uL Absolute Eosinophils 0.19 (0.0-0.7) 10^3/uL Absolute Basophils 0.02 (0.0-0.2) 10^3/uL Sodium 142 (136-145) mmol/L Potassium 3.0 L D (3.5-5.1) mmol/L Chloride 106 (98-107) mmol/L Carbon Dioxide 27.6 (21.0-32.0) mmol/L Anion Gap 8.4 (3-11) mmol/L BUN 28 H (7-18) mg/dL Creatinine 1.4 H (0.55-1.02) mg/dL Est GFR (CKD-EPI 2020) 40.73 (mL/min/1.73m2) Glucose 267 H (74-106) mg/dL Calcium 8.4 L (8.5-10.1) mg/dL Magnesium (1.8-2.4) mg/dL Total Bilirubin 1.05 H (0.2-1.0) mg/dL AST 49 H (15-37) U/L ALT 32 (14-59) U/L Alkaline Phosphatase 178 H (46-116) U/L Troponin I 215 H* (<or=51) ng/L NT-Pro-B Natriuret Pep 663 H (<300) pg/mL Total Protein 5.9 L (6.4-8.2) g/dL Albumin 1.9 L (3.4-5.0) g/dL Procalcitonin 4.1 ng/mL COVID-19 Source Nasopharynx SARS-CoV-2 (PCR) Negative (Negative) Influenza Type A (PCR) Negative (Negative) Influenza Type B (PCR) Negative (Negative) RSV (PCR) Negative (Negative) Intake and Output - 24 Hour Total 08/21/24 17:16 thru 08/21/24 17:20 Weight 106.594 kg Falls Risk Assessment Contributing Factors Impairments,Incontinence 08/21/24 18:27 Tubes/Lines None 08/21/24 18:27 Gait Evaluation W/any additional score 08/21/24 18:27 Cognition No cognitive impairment 08/21/24 18:27 Fall Total Score 26 08/21/24 18:27 Level of Risk Moderate Risk 08/21/24 18:27 Problems (Last Reviewed 08/21/24 @ 21:16 by Devin Carlson) Hypomagnesemia (Acute) Hypokalemia (Acute) CHF exacerbation (Acute) Type 2 diabetes mellitus (Chronic) v v v v v v v v v Sending and/or Receiving Nurses: Please use comment section below to note any information pertinent to the patient hand-off not included above. Information / Comments: Came in for feeling unwell. K+ and Mag are low, non med complaint- didn't take meds at home. DC'd yesterday 08/20 with sepsis from urine. DMT2, sore throat, SOB, Cough CHF exacerbation with pedal edema given K+ and lasix. Deshaun requested a pichardo, denied by ED due to already existing urine related sepsis. 20g RFA Latest VS: HR 72 BP 153/ 40s-50s RR 16 SPO2 95% ra Report received from:Lynette @ [id number]
[2024-08-21 23:21] LABS: Bilirubin Negative (Negative); Blood Trace-intact (Negative); Clarity Clear (Clear); Glucose Negative (Negative); Ketones Negative (Negative); Leukocyte Esterase Negative (Negative); Nitrite Negative (Negative); Specific Gravity 1.025 (1.005-1.025); Urobilinogen 0.2 mg/dL (Up to 0.2)
[2024-08-21 23:27] LABS: Bacteria Rare HPF (Negative); C & S Indicated? No; Casts 0-2 Hyaline LPF (Negative); Crystals Negative HPF (Negative); Epithelial Cells Moderate HPF (Negative); Mucus Negative (Negative); RBC 0-2 HPF (0-2); WBC Negative HPF (0-5)
[2024-08-22] MEDS: Nystatin 500000 UNITS/5 ML SUSP 5ML CUP PO ×6 (00:55→22:30)
[2024-08-22] MEDS: MAGNESIUM SULFATE 2 GM/50 ML BAG IV_INF (00:56)
[2024-08-22] MEDS: Doxepin 10 MG CAP 20 MG PO ×2 (00:56→22:29)
[2024-08-22 02:29] LABS: Bilirubin Negative (Negative); Blood Negative (Negative); Clarity Clear (Clear); Glucose Negative (Negative); Ketones Negative (Negative); Leukocyte Esterase Negative (Negative); Nitrite Negative (Negative); Specific Gravity 1.015 (1.005-1.025); Urobilinogen 0.2 mg/dL (Up to 0.2); pH 5.5 (5-8)
[2024-08-22] MEDS: POTASSIUM CHLORIDE 20 MEQ/100 ML BAG 50 MEQ IV_INF ×3 (02:42→13:16)
[2024-08-22] MEDS: Heparin 5,000 UNITS/ML VIAL 5000 UNITS SC ×3 (06:23→22:30)
[2024-08-22 06:27] LABS: HGB 9.3 g/dL (11.2-15.7); MCH 29.5 pg (27.0-33.0); MCHC 32.1 % (32.0-36.0); MCV 92 fL (80-95); Platelet Count 103 10^3/uL (130-400); RBC 3.15 10^6/uL (3.93-5.22); RDW-SD 56.1 fL; WBC 4.65 10^3/uL (4.4-10.8)
[2024-08-22 06:39] LABS: INR 1.2 (0.9-1.1); Prothrombin Time 12.2 sec (9.1-11.1)
[2024-08-22 06:58] LABS: ALT 32 U/L (14-59); AST 51 U/L (15-37); Albumin 1.8 g/dL (3.4-5.0); Alkaline Phosphatase 146 U/L (46-116); Anion Gap 5.4 mmol/L (3-11); BUN 22 mg/dL (7-18); CO2 32.6 mmol/L (21.0-32.0); CREATININE 1.1 mg/dL (0.55-1.02); Calcium 8.4 mg/dL (8.5-10.1); Chloride 105 mmol/L (98-107); Estimated GFR 54.39 (mL/min/1.73m2); Glucose 185 mg/dL (74-106); Magnesium 2.1 mg/dL (1.8-2.4); Potassium 3.1 mmol/L (3.5-5.1); Sodium 143 mmol/L (136-145); TSH (W/Ref FT4) 4.67 uIU/mL (0.36-3.74); Total Protein 5.6 g/dL (6.4-8.2)
[2024-08-22 06:59] LABS: Troponin I 194 ng/L (<or=51)
[2024-08-22 07:18] LABS: FREE T4 1.48 ng/dL (0.76-1.46)
[2024-08-22 07:35] VITALS: BP 167/68; PULSE 73; RESP 15; TEMP 36.3; O2SAT 97
[2024-08-22] MEDS: oxyCODONE 5 MG TAB PO ×3 (07:58→17:48)
[2024-08-22] MEDS: Potassium Chloride 20 MEQ TABCR PO ×3 (07:59→20:30)
[2024-08-22] MEDS: Lactulose 20 GM/30 ML CUP 30 GM PO ×2 (07:59→15:13)
[2024-08-22] MEDS: Oxybutynin 5 MG TAB PO ×2 (07:59→20:30)
[2024-08-22] MEDS: rOPINIRole 0.5 MG TAB 2 MG PO ×2 (07:59→20:29)
[2024-08-22] MEDS: Pantoprazole 40 MG TABCR PO ×2 (07:59→20:29)
[2024-08-22] MEDS: Magnesium Oxide 400 MG TAB PO (08:00)
[2024-08-22] MEDS: FLUoxetine 20 MG CAP 40 MG PO (08:00)
[2024-08-22] MEDS: Atorvastatin 40 MG TAB 80 MG PO (08:00)
[2024-08-22] MEDS: Furosemide 100 MG/10 ML VIAL 80 MG IVP ×2 (08:53→17:30)
[2024-08-22] MEDS: Insulin Aspart 300 UNITS/3 ML PEN SC ×4 (08:53→22:36)
[2024-08-22] MEDS: Cefuroxime 500 MG TAB PO ×2 (08:54→20:29)
--- NOTE | 2024-08-22 09:07 | INITIAL_ITS ---
Date of service: 08/22/24 Time of Service: 09:08 Care Management Initial Assmt Initial Assessment Reason for Hospitalization: CHF, hypokalemia Functional Status/Living Situation Patient Presentation: Re was sitting up in a chair when CM met with her. She engaged easily with CM, well known to her from previous hospitalizations. Re was just discharged home on after a 4 day hospital stay for sepsis. She stated she felt good when she went home and began to feel weak again the next day. Re admitted that she is getting discouraged with the frequent hospitalizations and is a bit depressed. She identified that she felt she needed someone to talk to. Her PCP had given her the name of a therapist a while back but Re never reached them and has since lost the number. CM will contact Re's PCP office on Saturday and try to help Re connect with a therapist. During the conversation, Re was able to identify several steps she has taken to reorganize her home and make it feel more comfortable for her and her family. She stated that she feels good about what she has accomplished and will try to focus on the positive. Town of Residence: [place] Resides with: Spouse (lives with Alexis and son Isra) Significant Other/Family: Out of area (sister in [facility] [place] Natural Supports: family Employment Status: Retired Instrumental Activities of Daily Living (ADLs): Independent Medications Medication Management: No Issues/Barriers identified Physical Functioning/Mobility Assistive Device: uses a walker Advance Directives Advance Directives: Do you have an Advance Directive: N 09/23/23 16:39 AD On File at [facility]: N 09/23/23 16:39 Date Asked 08/21/24 08/21/24 17:50 AD Date Reviewed COLST On File at [facility] No 08/10/24 20:47 COLST Date Scanned Code Status Resuscitation Status Full Code Insurance Coverage/Financial Issues Insurance: [employer] Medicare Replacement Care Team Visit Care Team Role Provider Type Jefe Coffey Primary Care Provider NON-[facility] STAFF PHYSICIAN Tara Garcia Emergency Provider NURSE PRACTITIONER Devin Carlson Admit Provider NON-[facility] STAFF EUN THOMPSON Attending Provider Discharge Potential Discharge Needs: PCP F/U Appt Anticipated Barriers to Discharge: None Identified Patient/Family Education Needs: Review discharge instructions, discuss Ask Me Three Transportation: Private vehicle Plan: Anticipate Re will be discharged home when medically cleared. She will have a resumption of home health services for nursing, PT, OT and MATERIALS MGMT TECH through [facility]. She will follow up with her community providers and plan of care and transport with family. CM will follow and continue to support discharge needs. [facility] All Active Problems (Updated 08/21/24 @ 23:31 by Devin Carlson) Bacteremia due to Klebsiella pneumoniae (Acute) Hypomagnesemia (Acute) Hypokalemia (Acute) CHF exacerbation (Acute) Acute renal failure (Acute) Acute coronary syndrome with high troponin (Acute) Sepsis due to Gram-negative organism with septic shock (Acute) Type 2 diabetes mellitus (Chronic) Liver cirrhosis secondary to SALCIDO (Acute) Medical History Hypovolemia Hyperammonemia Encephalopathy Presumed secondary to chronic liver disease. Chronically elevated ammonia level. On lactulose. 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 Left clavicle Excess skin of eyelid Pituitary cyst Hypersomnia GAVE (gastric antral vascular ectasia) JAYDEN (obstructive sleep apnea) Acquired arteriovenous malformation Atypical angina Biliary dyskinesia Lung nodule Submucosal neoplasm of stomach Anemia Dermoid cyst History of peptic ulcer disease Osteoarthritis Pancreatitis Hypertensive disorder Hepatic encephalopathy Edema Atrophy of vagina Atrophic vaginitis Actinic keratosis Pituitary adenoma Restless legs Neoplasm of parotid gland Lumbar spondylosis Lesion of esophagus Dyslipidemia Depressive disorder Crohn's disease Chronic low back pain Anxiety Anemia Cirrhosis SALCIDO (nonalcoholic steatohepatitis) CHF (congestive heart failure) Anasarca Surgical History History of oophorectomy, unilateral History of rotator cuff surgery bilateral History of total knee arthroplasty bilateral History of sleeve gastrectomy History of hysterectomy Family History Brother Cancer Lung Alcohol use disorder 2 older brothers Social History Smoking/Tobacco Use Status: Never Smoking risk assessment performed?: Yes Alcohol Intake: never Drug use: Never Substance use type: does not use Housing: house Current gender identity: female Do you feel safe at home: Yes Do you feel safe in your relationship?: Yes Additional Social history: Lives with Arslan, and son in [place]. Moved from [place] in 2019. Has a dog and 8 pet birds. Readmission Date of First Admission Date of 1st Admission: 08/16/24 Date of this Admission Date of Admission: 08/21/24 This admission was: Through ED SDOH(Care Management) Screening Will the Patient Participate in the Screening?: Declined to provide Health Related Social Needs Health related social needs details: non med compliant
--- NOTE | 2024-08-22 09:24 | W.PM.PROGNOT ---
Date of Service Date of service: 08/22/24 Time of Service: 09:24 Assessment and Plan Assessment and plan (1) CHF exacerbation: Start date: 08/21/24 Status: Acute Assessment and plan: This is a 69-year-old lady with recurrent hospitalizations now presenting with exacerbation of CHF status post fluid resuscitation for septic shock. She is chronically noncompliant with medical therapy at home d/t disliking of having to void Last echo on 08/17/24 w an LVEF of 60% w/o wall motion abnormality and an RVSP of 43 mmHg Continue Lasix 80 mg twice daily Consider metalozone Qualifiers: Heart failure type: diastolic Qualified Code(s): I50.33 - Acute on chronic diastolic (congestive) heart failure (2) Hypokalemia: Start date: 08/21/24 Status: Acute Assessment and plan: K 3.1 IV supplementation ordered On scheduled oral supplementation Consider spirinolactone (3) Hypomagnesemia: Start date: 08/21/24 Status: Acute Assessment and plan: Mg 2.1 Mg in AM (4) Type 2 diabetes mellitus: Status: Chronic Assessment and plan: Continue Guc AC and HS w SSI Qualifiers: Diabetes mellitus complication status: without complication 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 Bond Subjective Subjective Patient reports: feels better, tolerating liquids well, tolerating a regular diet, voiding w/o difficulty and bowel movement; denies diarrhea, blood in stool, nausea, vomiting, shortness of breath or fever Exam Narrative Exam Narrative: Constitutional The patient is sitting in bed comfortable, without acute distress HENMT: Facial structures with normal appearance Neck: minimal JVD Neuro:alert and oriented to self, person, place, time and situation. Resp: Normal respiratory pattern, speaks in full sentences, unlabored breathing, clear lung bilaterally w diminished bases Cardio: regular rhythm, S1, S2, murmur, bilateral radial and dorsalis pedis pulses are positive GI: Abdomen is large, not distended, soft and non tender, bowel sounds are present Integumentary: No skin lesions or rash Extremities: moves lower and upper extremities- non-focal Psych: RASS 0, congruent mood and normal affect. Objective Last Vital Signs Temp 36.3 C L 08/22/24 07:35 Pulse 73 08/22/24 07:35 Resp 15 08/22/24 07:35 BP 167/68 H 08/22/24 07:35 Pulse Ox 97 08/22/24 07:35 Laboratory Results - last 24 hr 08/21/24 08/21/24 08/21/24 18:27 18:35 19:18 WBC 4.74 RBC 3.28 L Hgb 9.6 L Hct 31.0 L MCV 95 MCH 29.3 MCHC 31.0 L RDW 17.0 H Plt Count 108 L MPV 10.0 Immature Gran % 1.5 Neutrophils % 60.3 Lymphocytes % 18.4 Monocytes % 15.4 Eosinophils % 4.0 Basophils % 0.4 Nucleated RBC % 0.0 Absolute Neutrophils 2.86 Absolute Lymphocytes 0.87 L Absolute Monocytes 0.73 Absolute Eosinophils 0.19 Absolute Basophils 0.02 PT INR Sodium 142 Potassium 3.0 L D Chloride 106 Carbon Dioxide 27.6 Anion Gap 8.4 BUN 28 H Creatinine 1.4 H Est GFR (CKD-EPI 2020) 40.73 Glucose 267 H Calcium 8.4 L Magnesium 1.7 L Total Bilirubin 1.05 H AST 49 H ALT 32 Alkaline Phosphatase 178 H Troponin I 215 H* 212 H* NT-Pro-B Natriuret Pep 663 H Total Protein 5.9 L Albumin 1.9 L Procalcitonin 4.1 TSH Free T4 Urine Color Urine Clarity Urine pH Ur Specific [place] Urine Protein Urine Ketones Urine Blood Urine Nitrite Urine Bilirubin Urine Urobilinogen Ur Leukocyte Esterase Urine RBC Urine WBC Ur Epithelial Cells Urine Crystals Urine Bacteria Urine Casts Urine Mucus Ur Culture Indicated? Urine Glucose COVID-19 Source Nasopharynx SARS-CoV-2 (PCR) Negative Influenza Type A (PCR) Negative Influenza Type B (PCR) Negative RSV (PCR) Negative 08/21/24 08/21/24 08/21/24 21:30 21:44 23:15 WBC RBC Hgb Hct MCV MCH MCHC RDW Plt Count MPV Immature Gran % Neutrophils % Lymphocytes % Monocytes % Eosinophils % Basophils % Nucleated RBC % Absolute Neutrophils Absolute Lymphocytes Absolute Monocytes Absolute Eosinophils Absolute Basophils PT INR Sodium Potassium Chloride Carbon Dioxide Anion Gap BUN Creatinine Est GFR (CKD-EPI 2020) Glucose Calcium Magnesium Total Bilirubin AST ALT Alkaline Phosphatase Troponin I 157 H* NT-Pro-B Natriuret Pep Total Protein Albumin Procalcitonin TSH Free T4 Urine Color Yellow Urine Clarity Clear Urine pH 6.0 Ur Specific [place] 1.025 Urine Protein Trace Urine Ketones Negative Urine Blood Trace-intact H Urine Nitrite Negative Urine Bilirubin Negative Urine Urobilinogen 0.2 Ur Leukocyte Esterase Negative Urine RBC 0-2 Urine WBC Negative Ur Epithelial Cells Moderate Urine Crystals Negative Urine Bacteria Rare Urine Casts 0-2 Hyaline Urine Mucus Negative Ur Culture Indicated? No Urine Glucose Negative COVID-19 Source Nasal/Nares SARS-CoV-2 (PCR) Negative Influenza Type A (PCR) Influenza Type B (PCR) RSV (PCR) 08/22/24 08/22/24 02:15 06:08 WBC 4.65 RBC 3.15 L Hgb 9.3 L Hct 29.0 L MCV 92 MCH 29.5 MCHC 32.1 RDW 17.0 H Plt Count 103 L MPV 10.0 Immature Gran % Neutrophils % Lymphocytes % Monocytes % Eosinophils % Basophils % Nucleated RBC % Absolute Neutrophils Absolute Lymphocytes Absolute Monocytes Absolute Eosinophils Absolute Basophils PT 12.2 H INR 1.2 H Sodium 143 Potassium 3.1 L Chloride 105 Carbon Dioxide 32.6 H Anion Gap 5.4 BUN 22 H Creatinine 1.1 H Est GFR (CKD-EPI 2020) 54.39 Glucose 185 H Calcium 8.4 L Magnesium 2.1 Total Bilirubin 1.10 H AST 51 H ALT 32 Alkaline Phosphatase 146 H Troponin I 194 H* NT-Pro-B Natriuret Pep Total Protein 5.6 L Albumin 1.8 L Procalcitonin TSH 4.67 H Free T4 1.48 H Urine Color Yellow Urine Clarity Clear Urine pH 5.5 Ur Specific [place] 1.015 Urine Protein Negative Urine Ketones Negative Urine Blood Negative Urine Nitrite Negative Urine Bilirubin Negative Urine Urobilinogen 0.2 Ur Leukocyte Esterase Negative Urine RBC Urine WBC Ur Epithelial Cells Urine Crystals Urine Bacteria Urine Casts Urine Mucus Ur Culture Indicated? Urine Glucose Negative COVID-19 Source SARS-CoV-2 (PCR) Influenza Type A (PCR) Influenza Type B (PCR) RSV (PCR) Time Spent with Patient Time Spent with Patient: >50 minutes Time was spent: preparing to see the patient(eg.review tests), obtaining and/or reviewing separately otained hiistory, ordering medications,tests, procedures, referring, communicating with other health child care specialist, indepentently interpreting results, counseling the patient and care coordination
[2024-08-22] MEDS: Normal Saline Flush 10 ML SYR IVP ×3 (09:53→23:16)
[2024-08-22 11:27] VITALS: BP 137/48; PULSE 78; RESP 15; TEMP 36.5; O2SAT 98
--- NOTE | 2024-08-22 11:52 | PT.INIE ---
Date of service: 08/22/24 Time of Service: 11:40 PT Notes Visit Reasons: Exacerbation CHF, Hypokalemia, Hypomagnesemia Inpatient Physical Therapy Evaluation I certify the need for these services as being medically necessary and skilled as furnished under this plan of treatment while under my care. Please sign and return within 14 days if you agree with the plan of care listed below.? Thank you for this referral! ? Referring Physician? Date Referring Doctor:? Lea Giordano PT Orders: PT CONSULT for safety consult for D/C Precautions: fall risk Patient Profile/Admitting Diagnosis:? The patient is a 69 yo female adm on 08/21/24 after multiple hospitalizations for recurrent issues recently hospitalized for shock and receiving IV fluid resuscitation during that hospitalization. She has a history of Salcido cirrhosis with recurrent encephalopathy and CHF which she does not usually take her diuretic because of increased urination which is bothersome. She is also noncompliant with her lactulose for recurrent encephalopathy. After discharge from the recent hospitalization the patient began to have increased peripheral edema and weight gain which was occurring during hospital stay because of fluid resuscitation according to the patient. She has had decreased appetite and felt woozy with a sore throat and swollen glands in her neck but no fever or chills. She did have a positive blood culture for Klebsiella pneumonia and was on cefuroxime orally at discharge and did take 1 dose at home. This is a twice a day medication. Once again may not be compliant with this as well. In the ED the patient was found to have exacerbation of CHF and was initiated on Lasix. She also had deficiencies of potassium and magnesium with oral supplements at home once again possible intake. She will be admitted for continued IV Lasix therapy and repletion of electrolytes. She remains a full code. Patient reports she was working on moving her 8 birds to a different side of her dining room and she was feeling tired and woozy. Past Medical History: FORMERLY [facility] All Active Problems (Updated 08/21/24 @ 23:31 by Devin Carlson) Bacteremia due to Klebsiella pneumoniae (Acute) Hypomagnesemia (Acute) Hypokalemia (Acute) CHF exacerbation (Acute) Acute renal failure (Acute) Acute coronary syndrome with high troponin (Acute) Sepsis due to Gram-negative organism with septic shock (Acute) Type 2 diabetes mellitus (Chronic) Liver cirrhosis secondary to SALCIDO (Acute) Medical History Hypovolemia Hyperammonemia Encephalopathy Presumed secondary to chronic liver disease. Chronically elevated ammonia level. 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 Left clavicleExcess skin of eyelid Pituitary cyst Hypersomnia GAVE (gastric antral vascular ectasia) JAYDEN (obstructive sleep apnea) Acquired arteriovenous malformation Atypical angina Biliary dyskinesia Lung nodule Submucosal neoplasm of stomach Anemia Dermoid cyst History of peptic ulcer disease Osteoarthritis Pancreatitis Hypertensive disorder Hepatic encephalopathy Edema Atrophy of vagina Atrophic vaginitis Actinic keratosis Pituitary adenoma Restless legs Neoplasm of parotid gland Lumbar spondylosis Lesion of esophagus Dyslipidemia Depressive disorder Crohn's disease Chronic low back pain Anxiety Anemia Cirrhosis SALCIDO (nonalcoholic steatohepatitis) CHF (congestive heart failure) Anasarca Surgical History History of oophorectomy, unilateral History of rotator cuff surgery bilateralHistory of total knee arthroplasty bilateralHistory of sleeve gastrectomy History of hysterectomy Medications: See chart Social History/Home Situation: Lives with and son in a private home with 3 steps to enter with rails.? Patient and family recently moved to [place] from [place], [place]. independent of all aspects of ADLs.? Uses front wheeled walker occasionally at home when pain in both knees gets too much. Has a ramp to enter house. Reported today that she only uses the walker outside her home and holds onto objects inside her home. Showers in standing but has a bench. Has a cane at home but does not feel like she is able to use it well. Normally grocery shops with her son and does most of the cooking. Subjective: Patient reports she was doing well at home until the day of admission (did not mention recent discharge from the hospital) Objective: Mental Status: Patient is alert and oriented. Pain: No c/o pain during today's session, just feeling weak. Vital Signs: 11:27 137/48 78 bpm 98% on RA ROM/Strength: Able to move all extremities against gravity with limited ROM, partially from body habitus. Sensation: No c/o numbness and tingling. Soft tissue/edema: Not examined. Bed Mobility: not performed Transfers: Sit to/from stand with close supervision. Gait: Ambulated 25 feet with walker with assist for IV pole with close supervision very slowly. Balance: mildly unsteady with gait [facility] AM-PAC 6 clicks Basic Mobility Inpatient Short Form: Raw Score:?17? CMS Score: 50.57% Informed Consent/Education:? Patient instructed in purpose of PT consult and plan of care and is agreeable Assessment:? Patient is a?69 year old male adm on08/21/24 for xacerbation of CHF status post fluid resuscitation for septic shock with bacteremia due to Klebsiella pneumoniae. ?Patient presents with decreased strength, decreased functional mobility, decreased balance and difficulty with ambulation. The patient would benefit from skilled inpatient services to improve these impairments to maximize function and safety. ? if patient will benefit from a commode for home. Patient is assessed as:? Low 56876?? History: recent hospitalizations, poor compliance with meds in the past Examination: see above Presentation: Stable and uncomplicated? Decision Making:? Low (0 history, 1-2 exam, stable/predictable, easy 20) Physical Therapy Goals: 3 days Able to get in/out of bed with supervision only. Able to perform sit to/from stand with supervision only. Able to walk 100 feet with rolling walker with supervision only. Equipment needs met. Independent with home exercise program Plan of Care/Treatment Plan: 1x/day, 7 days/week x 1 week. Plan of care has been reviewed with the [employer] providing the service under Physical Therapy direction. Initiate Physical Therapy intervention for strengthening, bed mobility, transfers, gait, stairs, balance training, use of assistive device. DISCHARGE RECOMMENDATIONS: Informed consent Prior to the start and throughout the course of the examination and treatment, patient was made aware of the specifics and purpose of the physical assessment and treatment procedures. Appropriate draping procedures were utilized to protect modesty where applicable. Billing Charges: Treatment Units Time Duration Manual Therapy(59706) Hands-on techniques to modulate pain increase joint range of motion reduce or eliminate soft tissue swelling, inflammation, or restriction facilitate relaxation and improve contractile and non-contractile tissue extensibility ? ? Therapeutic Procedures (29680) Instruction in therapeutic exercises to develop strength and endurance, range of motion and flexibility. HEP instruction and review: Provided skilled instruction in proper exercise performance: Provided skilled manual cues to facilitate proper muscle recruitment and/or movement pattern Neurological Re-Education(31814) To improve balance, coordination, kinesthetic and proprioceptive sensations. ? ? Ultrasound(42071) To promote healing. ? ? Gait Training(09259) ? ? Therapeutic Activity(38401) Instruction in dynamic activities with one on one patient contact by the provider to improve functional performance as follows: ? ? Self Care Training(50909) ? ? E-Stim (Attended)(38447) ? ? Low IE(84430) 1 15 Mod IE(94893) ? ? High IE(62774) ? ? Time Coded Treatment Time ? Total Treatment Time 1 15
--- NOTE | 2024-08-22 13:35 | NUR.NOTE ---
Nursing Note: Potassium infusion burning, ice pack to IV site for relief, pt medicated for generalized pain.
[2024-08-22 15:11] VITALS: BP 149/58; PULSE 65; RESP 17; TEMP 36.5; O2SAT 100
--- NOTE | 2024-08-22 17:57 | NUR.NOTE ---
Nursing Note:Patient greatly improved from the start of the shift. Pain well controlled. She is currently a stand by assist. Steady on her feet. Eating and and drinking well.
[2024-08-22 19:29] VITALS: BP 123/52; PULSE 84; RESP 17; TEMP 37; O2SAT 97
[2024-08-22] MEDS: Nystatin POWDER 15 GM JAR TP (22:29)
[2024-08-22 22:35] VITALS: RESP 20
[2024-08-22 23:24] VITALS: BP 120/35; PULSE 83; RESP 17; TEMP 37.2; O2SAT 93
[2024-08-23] MEDS: oxyCODONE 5 MG TAB PO ×3 (00:55→11:57)
[2024-08-23 02:27] VITALS: BP 127/45; PULSE 70; RESP 19; TEMP 37; O2SAT 94
[2024-08-23] MEDS: Heparin 5,000 UNITS/ML VIAL 5000 UNITS SC (05:58)
[2024-08-23] MEDS: Nystatin 500000 UNITS/5 ML SUSP 5ML CUP PO ×3 (05:58→14:23)
[2024-08-23 07:02] LABS: Abs Immature Grans 0.07 10^3/uL (0.0-0.06); Absolute Basophil Count 0.01 10^3/uL (0.0-0.2); Absolute Eosinophil Count 0.33 10^3/uL (0.0-0.7); Absolute Lymphocyte Count 1.34 10^3/uL (1.2-3.4); Absolute Monocyte Count 0.67 10^3/uL (0.1-0.8); Absolute Neutrophil Count 2.19 10^3/uL (1.2-6.7); Basophils % 0.2 %; Eosinophils % 7.2 %; HCT 31.3 % (36.0-46.0); HGB 10.1 g/dL (11.2-15.7); Immature Grans % 1.5 %; Lymphocytes % 29.1 %; MCH 29.8 pg (27.0-33.0); MCHC 32.3 % (32.0-36.0); MCV 92 fL (80-95); MPV 10.1 fL (8.0-11.0); Monocytes % 14.5 %; Neutrophils % 47.5 %; Platelet Count 109 10^3/uL (130-400); RBC 3.39 10^6/uL (3.93-5.22); RDW 17.2 % (11.7-14.6); RDW-SD 58.4 fL; WBC 4.61 10^3/uL (4.4-10.8)
[2024-08-23 07:16] LABS: Anion Gap 1.8 mmol/L (3-11); BUN 21 mg/dL (7-18); CO2 36.2 mmol/L (21.0-32.0); CREATININE 1.1 mg/dL (0.55-1.02); Calcium 8.3 mg/dL (8.5-10.1); Chloride 103 mmol/L (98-107); Estimated GFR 54.39 (mL/min/1.73m2); Glucose 200 mg/dL (74-106); Magnesium 1.9 mg/dL (1.8-2.4); Potassium 3.4 mmol/L (3.5-5.1); Sodium 141 mmol/L (136-145)
[2024-08-23] MEDS: Pantoprazole 40 MG TABCR PO (07:23)
[2024-08-23 07:57] VITALS: BP 120/53; PULSE 68; RESP 19; TEMP 36.5; O2SAT 97
[2024-08-23] MEDS: Furosemide 100 MG/10 ML VIAL 80 MG IVP (08:38)
[2024-08-23] MEDS: Lactulose 20 GM/30 ML CUP 30 GM PO ×2 (08:38→14:23)
[2024-08-23] MEDS: Normal Saline Flush 10 ML SYR IVP (08:38)
[2024-08-23] MEDS: FLUoxetine 20 MG CAP 40 MG PO (08:39)
[2024-08-23] MEDS: Oxybutynin 5 MG TAB PO (08:39)
[2024-08-23] MEDS: Atorvastatin 40 MG TAB 80 MG PO (08:39)
[2024-08-23] MEDS: Magnesium Oxide 400 MG TAB PO (08:39)
[2024-08-23] MEDS: Cefuroxime 500 MG TAB PO (08:39)
[2024-08-23] MEDS: Potassium Chloride 20 MEQ TABCR PO ×2 (08:39→14:23)
[2024-08-23] MEDS: rOPINIRole 0.5 MG TAB 2 MG PO (08:39)
[2024-08-23] MEDS: Insulin Aspart 300 UNITS/3 ML PEN SC ×2 (08:47→11:57)
[2024-08-23 10:07] VITALS: PULSE 80
--- NOTE | 2024-08-23 10:24 | PT.INTREAT ---
PT Notes Visit Reasons: Exacerbation CHF, Hypokalemia, Hypomagnesemia Inpatient Physical Therapy Treatment Note [facility] Date: 08/23/24 PRECAUTIONS:Standard OBJECTIVE: Therapeutic Activities (33422k[1]): Direct one-on-one instruction in dynamic activities to improve functional performance. ? BED MOBILITY/TRANSFERS? Sit-supine: SBA ? Sit-stand: SBA ? Stand-sit: SBA ? Provided skilled cues and instruction on performance and technique throughout. Gait Training (58119v[]): Direct one-on-one instruction and skilled instruction in: GAIT? Assistive Device: Fww ? Weight bearing: Full Assist: SBA? Distance:? 300ft ? Therapeutic Exercises (57829e[]): Direct one-on-one instruction in therapeutic exercises to develop strength, endurance, range of motion and flexibility. ? Exercises ? Rowing x 10 Shoulder flexion x 10 Shoulder circles x 10 Horz abd x 10 Heel slides x 10 Hip abd x 10 SLR x 10 ASSESSMENT:? Pt tolerated PT without difficulty. PLAN: Cont as per PT POC. TREATMENT CODE/TIME: 10:05-10:25 (20) TA DISCHARGE RECOMMENDATION: []
[2024-08-23 11:38] VITALS: BP 125/43; PULSE 72; RESP 19; TEMP 36.8; O2SAT 91
[2024-08-23] MEDS: Acetaminophen 325 MG TAB PO (11:57)
--- NOTE | 2024-08-23 13:13 | W.PM.DS.N ---
Date of service: 08/23/24 Time of Service: 13:22 DS: Diagnosis Discharge Diagnosis (1) CHF exacerbation: Status: Acute (2) Hypokalemia: Status: Acute (3) Hypomagnesemia: Status: Acute (4) Type 2 diabetes mellitus: Status: Chronic (5) Bacteremia due to Klebsiella pneumoniae: Status: Acute Discharge Plan Disposition Patient Disposition: Home W/Home Health Services Condition: Stable Discharge Details Reason For Visit: Exacerbation CHF, Hypokalemia, Hypomagnesemia Admit Date/Time: 08/21/24 21:40 Admit Provider: Devin Carlson Attending Provider: Devin Carlson Primary Care Provider: Jefe Coffey Hospital Course Hospital Course: This is a 69-year-old chronically ill female patient who has multiple hospitalizations for recurrent issues recently hospitalized for shock and receiving IV fluid resuscitation during that hospitalization. She has a history of Gallagher cirrhosis with recurrent encephalopathy and CHF which she does not usually take her diuretic because of increased urination which is bothersome. She is also noncompliant with her lactulose for recurrent encephalopathy. After discharge from the recent hospitalization the patient began to have increased peripheral edema and weight gain which was occurring during hospital stay because of fluid resuscitation according to the patient. She has been diuresed and now feels back at her baseline. She is being discharged to home with no new medication changes. She was advised to resume her medications as previously directed. She is being discharged to home with resumption of home health services. discharge discussed with Dr Ronda Moody Meds and New Rx's Prescriptions: Continued lactulose 10 gram/15 mL solution 30 g PO TID Ozempic 0.25 mg or 0.5 mg (2 mg/3 mL) pen injector 0.25 mg subcut QWEEK Rx Instructions: for 4 weeks oxycodone 5 mg tablet 5 mg PO Q6H PRN metformin 1,000 mg Tablet 1,000 mg PO BID ropinirole 2 mg Tablet 2 mg PO BID nystatin 100,000 unit/gram Powder 6,000,000 unit topical TID Qty: 60 0RF Rx Instructions: apply to reddened skin folds atorvastatin 40 mg Tablet 80 mg PO DAILY Qty: 30 0RF nystatin 100,000 unit/mL Suspension 500,000 unit PO 5X/DAY 4 Days Qty: 100 0RF cefuroxime axetil 500 mg tablet 500 mg PO BID 3 Days Qty: 6 0RF Rx Instructions: start 08/21 afternoon pantoprazole 40 mg Tablet,Delayed Release (Dr/Ec) 40 mg PO BID polyethylene glycol 3350 17 gram Powder In Packet 17 g PO DAILY PRN PRN (Reason: Constipation) Qty: 0 0RF oxybutynin chloride 5 mg Tablet 5 mg PO BID Qty: 60 0RF torsemide 20 mg tablet 40 mg PO DAILY Patient Comments: TAKE TWO TABLETS BY MOUTH EVERY DAY fluoxetine 40 mg capsule 40 mg PO DAILY ondansetron HCl 4 mg tablet 4 mg PO DAILY PRN Patient Comments: TAKE ONE TABLET BY MOUTH EVERY DAY NEEDED FOR NAUSEA doxepin 10 mg capsule 20 mg PO QHS Qty: 0 0RF Patient Comments: 20 mg once a day potassium chloride 20 mEq tablet extended release 20 meq PO TID Qty: 90 0RF Rx Instructions: with meals magnesium oxide 400 mg magnesium tablet 400 mg PO DAILY Qty: 30 0RF Discharge Instructions Instructions: Heart failure Additional Instructions: resume usual medications as directed. Stand Alone Forms: Nursing Discharge Form Referrals: Jefe Coffey [Primary Care Provider] - (Please make a follow-up appointment with your PCP tomorrow on 08/24/24 for within 1 to 2 weeks. ) Activity:: Activity as Tolerated Equipment/Supplies:: No Equipment Needed Diet:: As Tolerated Discharge Orders Discharge Orders: Discharge Order (Routine); Ordered 08/23/24 Ordered By: Karuna Segal Discharge Data Discharge Date/Time-TO BE ENTERED AT DEPARTURE: 08/23/24 14:40 DS: Summary Time Spent with Patient providing and/or coordinating discharge services: Greater than 30 minutes Status at Discharge Functional status at discharge: independent ambulation Overall status at discharge: patient is back to baseline Mental Status: mental status grossly normal Speech and Movement: speech and movement normal Mood: congruent mood Affect: normal affect Quality:SDOH Health Related Social Needs: Health related social needs problem related to primary support group(Z63.9) Health related social needs details non med compliant Health related social needs details: non med compliant Exam Narrative Exam Narrative: Elderly female appearing older than stated age in no acute distress head is atraumatic eyes nonicteric noninjected facial features symmetrical oral mucosas moist no oral exudates neck is supple with full range of motion no meningeal signs respirations are even and unlabored her breath sounds are clear bilaterally abdomen is obese soft nontender positive bowel sounds she moves all extremities equally. Neurologic she is awake alert oriented no focal deficits psychiatric normal mood and affect Psych Mental Status: mental status grossly normal Speech and Movement: speech and movement normal Mood: congruent mood Affect: normal affect DS: Data Vitals/I&O Vitals and I&O: Vital Signs Temperature 36.8 C 08/23/24 11:38 Temperature Source Tympanic 08/23/24 11:38 Pulse 72 08/23/24 11:38 Pulse Rhythm Regular 08/21/24 23:30 Pulse 72 08/21/24 23:00 Respiratory Rate 19 08/23/24 11:38 Respiratory Effort Normal, Non-Labored 08/21/24 23:30 Respiratory Depth Normal 08/21/24 18:34 Respiratory Pattern Normal 08/21/24 23:30 Blood Pressure 125/43 L 08/23/24 11:38 Blood Pressure Mean 80 08/21/24 18:46 Pulse Oximetry 91 L 08/23/24 11:38 Oxygen Delivery Method Room Air 08/23/24 11:38 Oxygen Flow Rate 0 08/23/24 11:38 Fraction of Inspired Oxygen (FIO2) 21 08/22/24 22:35 Pain Level 7 08/23/24 11:57 Comment nurse notified 08/22/24 23:24 Intake & Output 08/22/24 08/23/24 08/23/24 23:59 11:59 23:59 Intake Total 750 / 1120 250 / 250 Output Total 200 / 4990 1600 / 1600 Balance 550 / -3870 -1350 / -1350 Weight 95 kg Intake: IV 100 / 270 Oral 650 / 850 250 / 250 Output: Urine 200 / 4990 1600 / 1600 Other: Urine Color Yellow Pale Urine Appearance Clear Clear Urine Odor None Comment patient voided directly in toilet, hat added to toilet to measure for future voids. Stool Size Moderate Stool Characteristics Formed Data Completed and Pending Labs on day of discharge: Labs from last 24 hours 08/23/24 06:32 WBC 4.61 RBC 3.39 L Hgb 10.1 L Hct 31.3 L MCV 92 MCH 29.8 MCHC 32.3 RDW 17.2 H Plt Count 109 L MPV 10.1 Immature Gran % 1.5 Neutrophils % 47.5 Lymphocytes % 29.1 Monocytes % 14.5 Eosinophils % 7.2 Basophils % 0.2 Nucleated RBC % 0.0 Absolute Neutrophils 2.19 Absolute Lymphocytes 1.34 Absolute Monocytes 0.67 Absolute Eosinophils 0.33 Absolute Basophils 0.01 Sodium 141 Potassium 3.4 L Chloride 103 Carbon Dioxide 36.2 H Anion Gap 1.8 L BUN 21 H Creatinine 1.1 H Est GFR (CKD-EPI 2020) 54.39 Glucose 200 H Calcium 8.3 L Magnesium 1.9 PFSH All Active Problems (Updated 08/21/24 @ 23:31 by Devin Carlson) Bacteremia due to Klebsiella pneumoniae (Acute) Hypomagnesemia (Acute) Hypokalemia (Acute) CHF exacerbation (Acute) Acute renal failure (Acute) Acute coronary syndrome with high troponin (Acute) Sepsis due to Gram-negative organism with septic shock (Acute) Type 2 diabetes mellitus (Chronic) Liver cirrhosis secondary to GALLAGHER (Acute) Medical History Hypovolemia Hyperammonemia Encephalopathy Presumed secondary to chronic liver disease. Chronically elevated ammonia level. On lactulose. 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 Left clavicle Excess skin of eyelid Pituitary cyst Hypersomnia GAVE (gastric antral vascular ectasia) JAYDEN (obstructive sleep apnea) Acquired arteriovenous malformation Atypical angina Biliary dyskinesia Lung nodule Submucosal neoplasm of stomach Anemia Dermoid cyst History of peptic ulcer disease Osteoarthritis Pancreatitis Hypertensive disorder Hepatic encephalopathy Edema Atrophy of vagina Atrophic vaginitis Actinic keratosis Pituitary adenoma Restless legs Neoplasm of parotid gland Lumbar spondylosis Lesion of esophagus Dyslipidemia Depressive disorder Crohn's disease Chronic low back pain Anxiety Anemia Cirrhosis GALLAGHER (nonalcoholic steatohepatitis) CHF (congestive heart failure) Anasarca Surgical History History of oophorectomy, unilateral History of rotator cuff surgery bilateral History of total knee arthroplasty bilateral History of sleeve gastrectomy History of hysterectomy Family History Brother Cancer Lung Alcohol use disorder 2 older brothers Social History Smoking/Tobacco Use Status: Never Smoking risk assessment performed?: Yes Alcohol Intake: never Drug use: Never Substance use type: does not use Housing: house Current gender identity: female Do you feel safe at home: Yes Do you feel safe in your relationship?: Yes Additional Social history: Lives with Arslan, and son in [place]. Moved from [place] in 2020. Has a dog and 8 pet birds. Time Spent with Patient Time Spent with Patient: 45-69 minutes Time was spent: preparing to see the patient(eg.review tests), obtaining and/or reviewing separately otained hiistory, ordering medications,tests, procedures, indepentently interpreting results and counseling the patient
--- NOTE | 2024-08-23 16:02 | CMDISCH_ITS ---
Date of service: 08/23/24 Time of Service: 16:03 LACE Index Scoring Tool Questions: Length of Stay (in days): 2 Was the patient admitted via the E.D.?: Yes Comorbidities: Diabetes w/o Complication, Congestive Heart Failure and Liver or Renal Disease E.D. Visits: 7 Answers: Total Score: 14 Risk of Readmission: High Risk Care Management Discharge Plan Reason for Hospitalization: CHF Discharge Plan: Re will be discharged home with a resumption of home health services for RN, PT, OT, and [employer]. She will follow up with her PCP on 08/27 and transport with her son. Patient/Family Education Needs: review of discharge instructions, limitations, follow up plan and discuss Ask Me Three Services Needed at Discharge: Home Health Care Services SDOH Health Related Social Needs: Health related social needs problem related to primary support group(Z63.9) Health related social needs details non med compliant Health related social needs: problem related to primary support group(Z63.9) Health related social needs details: non med compliant
== END 2024-08-23 14:40 | disposition home health service (06) | DRG 291 ==
LOC: ER 20:45 → MS 23:08
PROVIDERS: Nurse Practitioner Acute Care; Admitting Provider Family Medicine; Emergency Provider Nurse Practitioner Family; PCP Family Medicine; Visit Provider Family Medicine
DX: I11.0 Hypertensive heart disease with heart failure (principal); I50.33 Acute on chronic diastolic (congestive) heart failure; I24.9 Acute ischemic heart disease, unspecified; R78.81 Bacteremia; K50.90 Crohn's disease, unspecified, without complications; E83.42 Hypomagnesemia; E87.6 Hypokalemia; E11.9 Type 2 diabetes mellitus without complications; B96.1 Klebsiella pneumoniae [K. pneumoniae] as the cause of diseases classified elsewhere; Z91.148 Patient's other noncompliance with medication regimen for other reason; K75.81 Nonalcoholic steatohepatitis (NASH); K74.69 Other cirrhosis of liver; K76.82 Hepatic encephalopathy; G47.33 Obstructive sleep apnea (adult) (pediatric); R91.1 Solitary pulmonary nodule; D64.9 Anemia, unspecified; K31.819 Angiodysplasia of stomach and duodenum without bleeding; G25.81 Restless legs syndrome; F41.9 Anxiety disorder, unspecified; G89.29 Other chronic pain; M54.50 Low back pain, unspecified; Z98.84 Bariatric surgery status; Z96.653 Presence of artificial knee joint, bilateral; E78.5 Hyperlipidemia, unspecified; Z79.84 Long term (current) use of oral hypoglycemic drugs; Z79.85 Long-term (current) use of injectable non-insulin antidiabetic drugs
CPT/HCPCS: 00123; 36415; 80048; 80053; 84145; 85027; 87635; 87637; 93005; 96372; 96374; 96376; 97161; 97530; 99285; 71046; 81003; 81015; 83735; 83880; 84439; 84443; 84484; 85025; 85610; 93010; 99223; 99233; 99239; J1644; J1815; J1940; J3475; J3480

== ENCOUNTER 2024-09-23 10:53 | Outpatient (CLI) | payer MEDICARE, SELFPAY ==
[2024-09-23 09:12] LABS: Abs Immature Grans 0.01 10^3/uL (0.0-0.06); Absolute Basophil Count 0.05 10^3/uL (0.0-0.2); Absolute Eosinophil Count 0.23 10^3/uL (0.0-0.7); Absolute Lymphocyte Count 0.86 10^3/uL (1.2-3.4); Absolute Monocyte Count 0.46 10^3/uL (0.1-0.8); Absolute Neutrophil Count 2.17 10^3/uL (1.2-6.7); Basophils % 1.3 %; Eosinophils % 6.1 %; HCT 26.7 % (36.0-46.0); HGB 8.2 g/dL (11.2-15.7); Immature Grans % 0.3 %; Lymphocytes % 22.8 %; MCH 28.7 pg (27.0-33.0); MCHC 30.7 % (32.0-36.0); MCV 93 fL (80-95); MPV 10.6 fL (8.0-11.0); Monocytes % 12.2 %; Neutrophils % 57.3 %; Platelet Count 100 10^3/uL (130-400); RBC 2.86 10^6/uL (3.93-5.22); RDW 14.9 % (11.7-14.6); WBC 3.78 10^3/uL (4.4-10.8)
[2024-09-23 09:46] LABS: Ferritin 29 ng/mL (8-252)
[2024-09-23 09:56] LABS: Anion Gap 4.8 mmol/L (3-11); BUN 21 mg/dL (7-18); CO2 29.2 mmol/L (21.0-32.0); CREATININE 0.8 mg/dL (0.55-1.02); Calcium 8.8 mg/dL (8.5-10.1); Chloride 107 mmol/L (98-107); Estimated GFR 79.71 (mL/min/1.73m2); Glucose 310 mg/dL (74-106); Potassium 4.2 mmol/L (3.5-5.1); Sodium 141 mmol/L (136-145)
== END 2024-09-23 10:54 | disposition home or self-care (01) ==
LOC: LBO 10:53
PROVIDERS: Family Medicine; PCP Family Medicine; Visit Provider Internal Medicine Hematology & Oncology
DX: N17.9 Acute kidney failure, unspecified (principal); D50.0 Iron deficiency anemia secondary to blood loss (chronic)
CPT/HCPCS: 36415; 80048; 82728; 85025

== ENCOUNTER 2024-10-23 22:10 | Inpatient (IN) | payer MEDICARE, SELFPAY ==
[2024-10-23] VITALS (23 sets, daily range): BP systolic 150–196; BP diastolic 33–130; PULSE 95–114; RESP 16–30; TEMP 38.3–38.7; O2SAT 86–96
--- NOTE | 2024-10-23 22:15 | RT.EKG_ITS ---
APPROVED REPORT Exam: Resting ECG Reason for Exam: tachycardia Patient Location: E HR:110 bpm ECG Measurements Heart Rate 110 AXIS OR 136 P 0 QRSd 88 QRS 57 QT 325 T [id number] QTc 441 Conclusion Sinus tachycardia...rate> 99, poor baseline due to rigors, no obvious ischemia
--- NOTE | 2024-10-23 22:15 | DI.RAD_ITS ---
Exam(s) XR PORTABLE CHEST AP EXAM: XR PORTABLE CHEST AP CLINICAL HISTORY: fever, chills, vomiting TECHNIQUE: 2D digital imaging was performed of the chest. One image was obtained. An AP view was ob tained. COMPARISON: CR XR CHEST 2V PA LATERAL from 08/21/2024 FINDINGS: MEDIASTINUM: Normal. HEART: Normal. PULMONARY VASCULATURE: Normal. LUNGS: Increased interstitial markings in the lungs with prominence of the pulmonary vasculature. No definite focal consolidating infiltrates. PLEURAL SPACE: No pleural effusion or pneumothorax. BONE:Within normal limits for the patient's age. There is a chronic left clavicular fracture deformit y. OTHER FINDINGS:Normal. IMPRESSION: Increased interstitial markings in the lungs with prominence of the pulmonary vasculature suggesting fluid overload/CHF. Please correlate clinically. DATA REPOSITORY: RADIATION DOSE DELIVERED:
--- NOTE | 2024-10-23 22:34 | ED.GENADUL_ITS ---
Discharge Plan Disposition Patient Disposition: Admit to [facility] Condition: Improving Discharge Details Chief Complaint: Fever Clinical Impression: Sepsis Primary Care Provider: Jefe Coffey ED Provider: Elvin Toledo Home Meds and New Rx's Prescriptions: No Action lactulose 10 gram/15 mL solution 30 g PO TID Ozempic 0.25 mg or 0.5 mg (2 mg/3 mL) pen injector 0.25 mg subcut QWEEK Rx Instructions: for 4 weeks oxycodone 5 mg tablet 5 mg PO Q6H PRN metformin 1,000 mg Tablet 1,000 mg PO BID ropinirole 2 mg Tablet 2 mg PO BID nystatin 100,000 unit/gram Powder 6,000,000 unit topical TID Qty: 60 0RF Rx Instructions: apply to reddened skin folds atorvastatin 40 mg Tablet 80 mg PO DAILY Qty: 30 0RF pantoprazole 40 mg Tablet,Delayed Release (Dr/Ec) 40 mg PO BID polyethylene glycol 3350 17 gram Powder In Packet 17 g PO DAILY PRN PRN (Reason: Constipation) Qty: 0 0RF oxybutynin chloride 5 mg Tablet 5 mg PO BID Qty: 60 0RF torsemide 20 mg tablet 40 mg PO DAILY Patient Comments: TAKE TWO TABLETS BY MOUTH EVERY DAY fluoxetine 40 mg capsule 40 mg PO DAILY ondansetron HCl 4 mg tablet 4 mg PO DAILY PRN Patient Comments: TAKE ONE TABLET BY MOUTH EVERY DAY NEEDED FOR NAUSEA doxepin 10 mg capsule 20 mg PO QHS Qty: 0 0RF Patient Comments: 20 mg once a day potassium chloride 20 mEq tablet extended release 20 meq PO TID Qty: 90 0RF Rx Instructions: with meals magnesium oxide 400 mg magnesium tablet 400 mg PO DAILY Qty: 30 0RF Discharge Data Discharge Physician: Elvin Toledo [facility] General Date/Time Provider Initiated Documentation: 10/23/24 22:11 . HPI Narrative: This patient is a 69-year-old female, with an extensive past medical history, who was admitted for pneumonia based sepsis and CHF exacerbation in late August of this year and has been at home with extensive home health services since then, presents to the emergency department this evening with complaints of fever, shaking chills, nausea with multiple episodes of vomiting, generalized bodyaches, and urinary urgency. EMS initially reported to nursing that the family stated that the symptoms have been ongoing all day. When I asked the patient to tell me that her symptoms initially began at around 9 PM tonight. The patient did not endorse having any upper respiratory tract symptoms. The patient denied having associated diarrhea. The patient stated that she had both chest pain and abdominal pain to nursing independently, but not during my initial evaluation. Related Data Home Medications ?Medication ?Instructions ?Recorded ?Confirmed metformin 1,000 mg tablet 1,000 mg PO BID 11/09/22 08/21/24 ropinirole 2 mg tablet 2 mg PO BID 11/09/22 08/21/24 pantoprazole 40 mg tablet,delayed 40 mg PO BID 12/15/22 08/21/24 release oxycodone 5 mg tablet 5 mg PO Q6H PRN 01/23/23 08/21/24 nystatin 100,000 unit/gram topical 6,000,000 unit topical TID #60 02/05/23 08/21/24 powder grams lactulose 10 gram/15 mL oral 30 g PO TID 06/26/23 08/21/24 solution polyethylene glycol 3350 17 gram 17 g PO DAILY PRN PRN Constipation 07/01/23 08/21/24 oral powder packet #0 ea oxybutynin chloride 5 mg tablet 5 mg PO BID #60 tabs 11/13/23 08/21/24 semaglutide 0.25 mg or 0.5 mg (2 0.25 mg subcut QWEEK 12/12/23 08/21/24 mg/3 mL) subcutaneous pen injector (Ozempic) torsemide 20 mg tablet 40 mg PO DAILY 01/23/24 08/21/24 fluoxetine 40 mg capsule 40 mg PO DAILY 01/24/24 08/21/24 doxepin 10 mg capsule 20 mg (2 x 10 mg) PO QHS #0 caps 04/16/24 08/21/24 ondansetron HCl 4 mg tablet 4 mg PO DAILY PRN 04/16/24 08/21/24 magnesium oxide 400 mg PO DAILY #30 tabs 06/02/24 08/21/24 potassium chloride 20 mEq 20 meq PO TID #90 tabs 06/02/24 08/21/24 tablet,extended release atorvastatin 40 mg tablet 80 mg (2 x 40 mg) PO DAILY #30 tabs 08/20/24 08/21/24 Previous Rx's ?Medication ?Instructions ?Recorded nystatin 100,000 unit/gram topical 6,000,000 unit topical TID #60 02/05/23 powder grams polyethylene glycol 3350 17 gram 17 g PO DAILY PRN PRN Constipation 07/01/23 oral powder packet #0 ea oxybutynin chloride 5 mg tablet 5 mg PO BID #60 tabs 11/13/23 doxepin 10 mg capsule 20 mg (2 x 10 mg) PO QHS #0 caps 04/16/24 magnesium oxide 400 mg PO DAILY #30 tabs 06/02/24 potassium chloride 20 mEq 20 meq PO TID #90 tabs 06/02/24 tablet,extended release atorvastatin 40 mg tablet 80 mg (2 x 40 mg) PO DAILY #30 tabs 08/20/24 Allergies Allergy/AdvReac Type Severity Reaction Status Date / Time Penicillins Allergy Severe Swelling/Ed Verified 08/21/24 17:29 sophie tramadol Allergy Severe Swelling/Ed Verified 08/21/24 17:29 sophie apricot Allergy Intermediate Hives Verified 08/21/24 17:29 ferrous sulfate Allergy Unknown Other (See Verified 08/21/24 17:29 Comment) raspberry Allergy Other (See Verified 08/21/24 17:29 Comment) vancomycin AdvReac Intermediate Other (See Verified 08/21/24 17:29 Comment) General Stated Complaint: Fever CHELA: 3 Exam Const General: anxious and ill appearing acutely Nutritional Appearance: obese Orientation: alert, awake, oriented to person and oriented to place HENPR Head: normal to inspection, normocephalic and atraumatic General nose exam: external nose normal, nares normal and no nasal discharge Eyes General: appearance normal, both eyes and all related structures EOM: EOM intact bilaterally Neck Neck: full ROM and no JVD Other: Chronically dysmorphic left clavicular head, multiple spider telangiectasias Resp Effort & Inspection: normal respiratory effort and able to speak in complete sentences Auscultation: clear to auscultation bilaterally Cardio Rate: tachycardic Rhythm: regular rhythm Heart Sounds: S1 normal and S2 normal GI Inspection: obesity Palpation: soft Auscultation: normal bowel sounds Neuro General: moves all extremities, no focal motor deficits and CN's II-XI intact bilaterally Extrem General: full ROM and edema Laterality: bilateral (3+ pitting in the lower extremities) Course Vital Signs Vital signs: Vital Signs Temperature 38.3 C H 10/23/24 22:04 Pulse 110 H 10/23/24 22:04 Respiratory Rate 16 10/23/24 22:04 Blood Pressure 155/130 H 10/23/24 22:04 Pulse Oximetry 95 10/23/24 22:04 Temperature 38.3 C H 10/23/24 22:04 Temperature Source Temporal Artery Scan 10/23/24 22:04 Pulse 110 H 10/23/24 22:04 Respiratory Rate 16 10/23/24 22:04 Blood Pressure 155/130 H 10/23/24 22:04 Blood Pressure Position Supine 10/23/24 22:04 Pulse Oximetry 95 10/23/24 22:04 Oxygen Delivery Method Room Air 10/23/24 22:04 Oxygen Flow Rate 0 10/23/24 22:04 Pain Level 5 10/23/24 22:04 Lab/Test Results Lab/Test Results: 10/23/24 22:18 Blood Blood Culture - Pending 10/23/24 22:18 Blood Blood Culture - Pending Laboratory Tests Range/Units 10/23/24 22:18 Fluid Type Cancelled Fluid LDH Cancelled Medical Decision Making The patient was seen and examined. She appears ill with rigors here in the emergency room. The patient is tachycardic which is likely compensatory for her fever. The patient's shaking chills make it difficult to obtain a normal baseline so it is difficult to determine if there would be any underlying ischemic changes on this tracing, although there are no findings that are obvious for acute myocardial injury. The patient has a prior history of urinary tract infections and does report urinary frequency and urgency, leading me to think that is the most likely source of her fever. The patient had some vomiting, but it is not clear if this is an early gastroenteritis or if the vomiting might simply be compensatory from the constitutional changes associated with the febrile illness. Certainly the patient's abdomen is soft and does not seem represent any features of peritonitis. Likewise the patient has normal air exchange through her lungs and I do not appreciate any abnormal adventitial noises or coughing. There were no obvious findings of an upper respiratory tract infection to visual inspection of the face and facial cavities. The patient was given IV Ofirmev and Zofran initially for treatment of her symptoms and will be hydrated gently to begin with, she has a history of congestive heart failure. The patient also had a recent anemia so I have asked for a type and screen to be drawn in case the patient requires transfusion therapy unexpectedly. Disposition will depend on discovery of pathology and response to treatment in the emergency room, but I anticipate the patient will most likely require admission for her fever with SIRS. Quality:SDOH Health Related Social Needs: Health related social needs problem related to primary support group(Z63.9) Health related social needs details non med compliant PFSH All Active Problems (Updated 10/24/24 @ 00:24 by Elvin Toledo MD) Sepsis (Acute) Bacteremia due to Klebsiella pneumoniae (Acute) CHF exacerbation (Acute) Acute renal failure (Acute) Acute coronary syndrome with high troponin (Acute) Sepsis due to Gram-negative organism with septic shock (Acute) Type 2 diabetes mellitus (Chronic) Liver cirrhosis secondary to SALCIDO (Acute) Medical History Hypovolemia Hyperammonemia Encephalopathy Presumed secondary to chronic liver disease. Chronically elevated ammonia level. On lactulose. 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 Left clavicle Excess skin of eyelid Pituitary cyst Hypersomnia GAVE (gastric antral vascular ectasia) JAYDEN (obstructive sleep apnea) Acquired arteriovenous malformation Atypical angina Biliary dyskinesia Lung nodule Submucosal neoplasm of stomach Anemia Dermoid cyst History of peptic ulcer disease Osteoarthritis Pancreatitis Hypertensive disorder Hepatic encephalopathy Edema Atrophy of vagina Atrophic vaginitis Actinic keratosis Pituitary adenoma Restless legs Neoplasm of parotid gland Lumbar spondylosis Lesion of esophagus Dyslipidemia Depressive disorder Crohn's disease Chronic low back pain Anxiety Anemia Cirrhosis SALCIDO (nonalcoholic steatohepatitis) CHF (congestive heart failure) Anasarca Surgical History History of oophorectomy, unilateral History of rotator cuff surgery bilateral History of total knee arthroplasty bilateral History of sleeve gastrectomy History of hysterectomy Family History Brother Cancer Lung Alcohol use disorder 2 older brothers Social History Smoking/Tobacco Use Status: Never Smoking risk assessment performed?: Yes Alcohol Intake: never Drug use: Never Substance use type: does not use Housing: house Current gender identity: female Do you feel safe at home: Yes Do you feel safe in your relationship?: Yes Additional Social history: Lives with Arslan, and son in [place]. Moved from [place] in 2019. Has a dog and 8 pet birds.
[2024-10-23] MEDS: Ondansetron 4 MG/2 ML VIAL IVP (22:36)
[2024-10-23] MEDS: ACETAMINOPHEN 1,000 MG/100 ML BAG 400 MG IVPB (22:36)
[2024-10-23] MEDS: Normal Saline 1,000 ML 150 ML IV (22:36)
[2024-10-23 22:44] LABS: BE (Venous) 4 mmol/L (-2-3); HCO3 (Venous) 28 mmol/L (23-28); O2 Sat (Venous) 67 %; TCO2 (Venous) 26 mmol/L (24-29); pCO2 (Venous) 41 mmHg (41-51); pH (Venous) 7.44 (7.31-7.41); pO2 (Venous) 35 mmHg
[2024-10-23 22:46] LABS: Lactate 2.2 mmol/L (0.6-1.4)
[2024-10-23 22:49] LABS: Abs Immature Grans 0.01 10^3/uL (0.0-0.06); Absolute Basophil Count 0.01 10^3/uL (0.0-0.2); Absolute Eosinophil Count 0.07 10^3/uL (0.0-0.7); Absolute Lymphocyte Count 0.43 10^3/uL (1.2-3.4); Absolute Monocyte Count 0.09 10^3/uL (0.1-0.8); Absolute Neutrophil Count 3.01 10^3/uL (1.2-6.7); Basophils % 0.3 %; Eosinophils % 1.9 %; HCT 32.7 % (36.0-46.0); HGB 10.6 g/dL (11.2-15.7); Immature Grans % 0.3 %; Lymphocytes % 11.9 %; MCH 29.9 pg (27.0-33.0); MCHC 32.4 % (32.0-36.0); MCV 92 fL (80-95); Monocytes % 2.5 %; Neutrophils % 83.1 %; RBC 3.55 10^6/uL (3.93-5.22); RDW 14.9 % (11.7-14.6); RDW-SD 50.4 fL; WBC 3.62 10^3/uL (4.4-10.8)
[2024-10-23 22:55] LABS: COVID-19 PCR Negative (Negative); Influenza A PCR Negative (Negative); Influenza B PCR Negative (Negative); RSV PCR Negative (Negative)
[2024-10-23 22:56] LABS: Source Nasopharynx
[2024-10-23 23:02] LABS: Platelet Count 93 10^3/uL (130-400)
[2024-10-23 23:04] LABS: ALT 28 U/L (14-59); AST 45 U/L (15-37); Albumin 2.6 g/dL (3.4-5.0); Alkaline Phosphatase 336 U/L (46-116); Anion Gap 7.8 mmol/L (3-11); BUN 18 mg/dL (7-18); Bilirubin, Total 1.01 mg/dL (0.2-1.0); CO2 27.2 mmol/L (21.0-32.0); CREATININE 0.9 mg/dL (0.55-1.02); Calcium 8.6 mg/dL (8.5-10.1); Chloride 106 mmol/L (98-107); Glucose 326 mg/dL (74-106); Magnesium 1.6 mg/dL (1.8-2.4); Potassium 3.9 mmol/L (3.5-5.1); Sodium 141 mmol/L (136-145); Total Protein 6.4 g/dL (6.4-8.2); Troponin I 18 ng/L (<or=51)
[2024-10-24] VITALS (24 sets, daily range): BP systolic 94–139; BP diastolic 27–69; PULSE 78–111; RESP 15–24; TEMP 36.2–38.3; O2SAT 90–99
[2024-10-24] LABS: Bilirubin Negative (Negative); Blood Negative (Negative); Clarity Clear (Clear); Glucose 250 mg/dL (Negative); Ketones Negative (Negative); Leukocyte Esterase Negative (Negative); Nitrite Negative (Negative); Specific Gravity 1.025 (1.005-1.025); Urobilinogen 0.2 mg/dL (Up to 0.2)
[2024-10-24 00:06] LABS: Bacteria Rare HPF (Negative); Casts Negative LPF (Negative); Crystals Negative HPF (Negative); Epithelial Cells Rare HPF (Negative); Mucus Negative (Negative); RBC Negative HPF (0-2); WBC Negative HPF (0-5)
[2024-10-24 00:07] LABS: C & S Indicated? C&S Done As Ordered
--- NOTE | 2024-10-24 00:25 | W.PM.HP.N ---
Date of service: 10/24/24 Time of Service: 00:25 Assessment and Plan Assessment and plan (1) Sepsis: Start date: 10/23/24 Status: Acute Assessment and plan: This is a 69-year-old lady who has recurrent hospitalizations for infection or exacerbation of CHF. She is obese but is fairly active at home take care of her who is more disabled. Presently her is in the [place] [facility]. She presents with fever, nausea and vomiting, tachycardia and slight tachypnea with drop in oxygen though not severe. She is not currently on home oxygen. She appears to be compensating for lactic acidosis. Source of infection is unclear with blood cultures and urine culture performed and chest x-ray to follow-up formal reading but suggested possible right infiltrate. Formal PA and lateral chest x-ray may be helpful. She also slightly dehydrated and will be gently IV hydrated watch for fluid overload with history of CHF with increased PA pressures but preserved left-ventricular ejection fraction by updated echocardiogram in August 2024. Patient was initiated on cefepime and added doxycycline for possible pulmonary source of infection. Follow-up on cultures and adjust IV antibiotic therapy converted to oral therapy assistance patient stable. Her plans are to return home but should have increased services. She remains full code. (2) Encephalopathy: Status: Chronic Assessment and plan: Slightly exacerbated with presenting sepsis likely secondary to an acute infectious process with fever but chronically a problem on lactulose with SALCIDO and cirrhosis. (3) Hypomagnesemia: Status: Chronic Assessment and plan: Recurrent with patient to be repleted with IV magnesium 2 g and continue oral supplementation chronically on diuretics. (4) CHF (congestive heart failure): Assessment and plan: With preserved left-ventricular ejection fraction and increased PA pressures by echo August 2024. Patient is slightly dehydrated with acute presentation creatinine elevated and will receive IV fluids to be decreased once she is taking adequate oral intake or for fluid overload. She is on chronic Lasix. This will be continued. (5) Type 2 diabetes mellitus: Status: Chronic Assessment and plan: Hold outpatient medical therapy with moderate insulin sliding scale coverage glucometers before meals and at bedtime. (6) Liver cirrhosis secondary to SALCIDO: Status: Acute Assessment and plan: Continue outpatient medical therapy. (7) JAYDEN (obstructive sleep apnea): Assessment and plan: Continue home BiPAP. History of Present Illness History of Present Illness Chief Complaint: Fever, altered mental status. Narrative: This is a 69-year-old female patient who has frequent admissions for sepsis having bacteremia in August 2024 presented that time with possible sepsis. She also has CHF with a preserved left ventricular ejection fraction and increased PA pressures with chronic sleep apnea on BiPAP treatment at night. Her requires increased care at home and has a colostomy bag which sometimes ruptures presently is in a [place] [facility] where she visits down recently and then became ill afterwards having fever with shaking chills nausea and vomiting as well as body aches and urinary frequency. She has had frequent UTIs in the past. She had the symptoms a day of admission though the patient give history of having them sudden onset just prior to presentation to the ED. She is slightly confused at times with chronic hepatic encephalopathy?on lactulose which she does not always take because of diarrhea. She did also have reported slight altered mental status described by family at home prior to this admission. In the ED she was found to have fever with low WBC, tachycardia and slight tachypnea with O2 saturation dropping into the high 80s during the ED visit. She is usually not on oxygen at home. She appeared to have respiratory alkalosis compensating for lactic acidosis with lactic acid 2.2. She chronically has diuretic therapy and was slightly dry with a creatinine up to 1.2 above her baseline 0.9. She has chronic diabetes and has slight hyperglycemia in the ED. Liver function tests were elevated but stable. She has chronic anemia associated with her chronic diseases. Her magnesium was low on oral magnesium at home and will be repleted IV during this hospital stay. This is often needed with the previous hospitalizations. The time I saw the patient was not complaining of any abdominal pain. She was not having diarrhea with her GI symptoms. She has a Christine catheter in place draining clear urine. Urinalysis benign appearing but was cultured. She also buccally prior to initiating cefepime. Chest x-ray was taken and this shows slight right upper heart border irregularity with a possible right lower lobe pneumonia. Further imaging to be done after formal reading. She was also placed on doxycycline because of possible respiratory infection as a source for sepsis. Patient does have increasing need for home care now not taking care of her which was her past with her son also being at home but feel and not very helpful. She will be admitted for IV hydration watch for fluid overload and IV antibiotic therapy follow-up on cultures. Long-term PT may be needed for reevaluation for home safety. She remains a full code. Review of Systems Narrative: 13 point review of systems otherwise unrevealing or stable. [facility] All Active Problems (Updated 10/24/24 @ 10:03 by Devin Carlson) Encephalopathy (Chronic) Presumed secondary to chronic liver disease. Chronically elevated ammonia level. On lactulose. Hypomagnesemia (Chronic) Sepsis (Acute) Bacteremia due to Klebsiella pneumoniae (Acute) CHF exacerbation (Acute) Acute renal failure (Acute) Acute coronary syndrome with high troponin (Acute) Sepsis due to Gram-negative organism with septic shock (Acute) Type 2 diabetes mellitus (Chronic) Liver cirrhosis secondary to SALCIDO (Acute) Medical History Hypovolemia Hyperammonemia Encephalopathy Presumed secondary to chronic liver disease. Chronically elevated ammonia level. On lactulose. 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 Left clavicle Excess skin of eyelid Pituitary cyst Hypersomnia GAVE (gastric antral vascular ectasia) JAYDEN (obstructive sleep apnea) Acquired arteriovenous malformation Atypical angina Biliary dyskinesia Lung nodule Submucosal neoplasm of stomach Anemia Dermoid cyst History of peptic ulcer disease Osteoarthritis Pancreatitis Hypertensive disorder Hepatic encephalopathy Edema Atrophy of vagina Atrophic vaginitis Actinic keratosis Pituitary adenoma Restless legs Neoplasm of parotid gland Lumbar spondylosis Lesion of esophagus Dyslipidemia Depressive disorder Crohn's disease Chronic low back pain Anxiety Anemia Cirrhosis SALCIDO (nonalcoholic steatohepatitis) CHF (congestive heart failure) Anasarca Surgical History History of oophorectomy, unilateral History of rotator cuff surgery bilateral History of total knee arthroplasty bilateral History of sleeve gastrectomy History of hysterectomy Family History Brother Cancer Lung Alcohol use disorder 2 older brothers Social History Smoking/Tobacco Use Status: Never Smoking risk assessment performed?: Yes Alcohol Intake: never Drug use: Never Substance use type: does not use Housing: house Current gender identity: female Do you feel safe at home: Yes Do you feel safe in your relationship?: Yes Additional Social history: Lives with Arslan, and son in [place]. Moved from [place] in 2019. Has a dog and 8 pet birds. Meds Allergies and Home Medications Allergies Allergy/AdvReac Type Severity Reaction Status Date / Time Penicillins Allergy Severe Swelling/Ed Verified 08/21/24 17:29 sophie tramadol Allergy Severe Swelling/Ed Verified 08/21/24 17:29 sophie apricot Allergy Intermediate Hives Verified 08/21/24 17:29 ferrous sulfate Allergy Unknown Other (See Verified 08/21/24 17:29 Comment) raspberry Allergy Other (See Verified 08/21/24 17:29 Comment) vancomycin AdvReac Intermediate Other (See Verified 08/21/24 17:29 Comment) Home Medications ?Medication ?Instructions ?Recorded ?Confirmed ?Type metformin 1,000 mg tablet 1,000 mg PO BID 11/09/22 10/24/24 History ropinirole 2 mg tablet 2 mg PO BID 11/09/22 10/24/24 History pantoprazole 40 mg tablet,delayed 40 mg PO BID 12/15/22 10/24/24 History release oxycodone 5 mg tablet 5 mg PO Q6H PRN 01/23/23 10/24/24 History nystatin 100,000 unit/gram topical 6,000,000 unit topical TID #60 02/05/23 10/24/24 Rx powder grams lactulose 10 gram/15 mL oral 30 g PO TID 06/26/23 10/24/24 History solution polyethylene glycol 3350 17 gram 17 g PO DAILY PRN PRN Constipation 07/01/23 10/24/24 Rx oral powder packet #0 ea oxybutynin chloride 5 mg tablet 5 mg PO BID #60 tabs 11/13/23 10/24/24 Rx semaglutide 0.25 mg or 0.5 mg (2 0.25 mg subcut QWEEK 12/12/23 10/24/24 History mg/3 mL) subcutaneous pen injector (Ozempic) torsemide 20 mg tablet 40 mg PO DAILY 01/23/24 10/24/24 History fluoxetine 40 mg capsule 40 mg PO DAILY 01/24/24 10/24/24 History ondansetron HCl 4 mg tablet 4 mg PO DAILY PRN 04/16/24 10/24/24 History magnesium oxide 400 mg PO DAILY #30 tabs 06/02/24 10/24/24 Rx potassium chloride 20 mEq 20 meq PO TID #90 tabs 06/02/24 10/24/24 Rx tablet,extended release atorvastatin 40 mg tablet 80 mg (2 x 40 mg) PO DAILY #30 tabs 08/20/24 10/24/24 Rx doxepin 10 mg capsule 30 mg PO QHS 10/24/24 10/24/24 History Exam Narrative Exam Narrative: General: Patient appears older than stated age, alert and oriented x 3 and in no acute distress. She is wearing BiPAP which is a nighttime treatment for JAYDEN. HEENT: Normocephalic, course and facial features, eyes with pupils equal and reactive light symmetrically, extraocular movement intact and sclera anicteric. Oropharynx with dry mucosa. Poor dentition with missing teeth and discolored teeth. Neck: Supple without JVD. Back: Stooped posture without CVA tenderness. Lungs: Fair aeration clear to percussion with sparse coarse crackles right hemithorax otherwise no focalizing rales or rhonchi. No expiratory wheeze. Breast: Exam deferred. Heart: Regular rate and rhythm with 4/6 systolic murmur left sternal border. No rubs or gallops. Abdomen: Obese contour, soft and nontender to palpation with no palpable hepatosplenomegaly. Bowel sounds positive all quadrants. Large pannus with no intertriginous rash breakdown. Genitalia/rectal: Exam deferred. Christine catheter in place. Extremities: 1+ pitting edema lower extremities which appears chronic with chronic skin changes, loss of hair and atrophic skin but no erythema and no skin breakdown/ulcerations. No cyanosis or clubbing. Fair capillary refill. Skin: Normal color, warm and dry. Neuro: Cranial nerves II through XII gross intact, no focalizing motor deficits. No tremor. Psych: Flattened affect with depressed mood. No abnormal thought processes. Remote and recent memory grossly intact at time of my exam. Results Labs 10/24/24 06:29 10/24/24 06:29 Labs: Laboratory Results - last 24 hr 10/23/24 10/23/24 10/23/24 22:10 22:18 22:35 WBC 3.62 L RBC 3.55 L Hgb 10.6 L Hct 32.7 L MCV 92 MCH 29.9 MCHC 32.4 RDW 14.9 H Plt Count 93 L MPV Immature Gran % 0.3 Neutrophils % 83.1 Lymphocytes % 11.9 Monocytes % 2.5 Eosinophils % 1.9 Basophils % 0.3 Nucleated RBC % 0.0 Absolute Neutrophils 3.01 Absolute Lymphocytes 0.43 L Absolute Monocytes 0.09 L Absolute Eosinophils 0.07 Absolute Basophils 0.01 VBG pH 7.44 H VBG pCO2 41 VBG pO2 35 VBG HCO3 28 VBG Total CO2 26 VBG O2 Saturation 67 VBG Base Excess 4 H VBG Lactate 2.2 H* Sodium 141 Potassium 3.9 Chloride 106 Carbon Dioxide 27.2 Anion Gap 7.8 BUN 18 Creatinine 0.9 Est GFR (CKD-EPI 2020) 69.20 Glucose 326 H Calcium 8.6 Magnesium 1.6 L Total Bilirubin 1.01 H AST 45 H ALT 28 Alkaline Phosphatase 336 H Troponin I 18 Total Protein 6.4 Albumin 2.6 L Urine Color Urine Clarity Urine pH Ur Specific [place] Urine Protein Urine Ketones Urine Blood Urine Nitrite Urine Bilirubin Urine Urobilinogen Ur Leukocyte Esterase Urine RBC Urine WBC Ur Epithelial Cells Urine Crystals Urine Bacteria Urine Casts Urine Mucus Ur Culture Indicated? Urine Glucose Fluid Type Cancelled Fluid LDH Cancelled COVID-19 Source Nasopharynx SARS-CoV-2 (PCR) Negative Influenza Type A (PCR) Negative Influenza Type B (PCR) Negative RSV (PCR) Negative ABO/Rh O Positive Antibody Screen NEGATIVE 10/23/24 23:40 WBC RBC Hgb Hct MCV MCH MCHC RDW Plt Count MPV Immature Gran % Neutrophils % Lymphocytes % Monocytes % Eosinophils % Basophils % Nucleated RBC % Absolute Neutrophils Absolute Lymphocytes Absolute Monocytes Absolute Eosinophils Absolute Basophils VBG pH VBG pCO2 VBG pO2 VBG HCO3 VBG Total CO2 VBG O2 Saturation VBG Base Excess VBG Lactate Sodium Potassium Chloride Carbon Dioxide Anion Gap BUN Creatinine Est GFR (CKD-EPI 2020) Glucose Calcium Magnesium Total Bilirubin AST ALT Alkaline Phosphatase Troponin I Total Protein Albumin Urine Color Yellow Urine Clarity Clear Urine pH 7.0 Ur Specific [place] 1.025 Urine Protein 30 H Urine Ketones Negative Urine Blood Negative Urine Nitrite Negative Urine Bilirubin Negative Urine Urobilinogen 0.2 Ur Leukocyte Esterase Negative Urine RBC Negative Urine WBC Negative Ur Epithelial Cells Rare Urine Crystals Negative Urine Bacteria Rare Urine Casts Negative Urine Mucus Negative Ur Culture Indicated? C&S Done As Ordered Urine Glucose 250 H Fluid Type Fluid LDH COVID-19 Source SARS-CoV-2 (PCR) Influenza Type A (PCR) Influenza Type B (PCR) RSV (PCR) ABO/Rh Antibody Screen Last Vital Signs Temp 38.7 C H 10/23/24 23:18 Pulse 103 H 12/20/24 23:18 Resp 24 10/23/24 23:18 BP 154/40 H 10/23/24 23:18 Pulse Ox 94 10/23/24 23:18 Time Spent Time spent with Patient: >75 minutes Time was spent: preparing to see the patient(eg.review tests), obtaining and/or reviewing separately otained hiistory, ordering medications,tests, procedures, indepentently interpreting results, counseling the patient and care coordination
[2024-10-24] MEDS: CEFEPIME 2 GM in Normal Saline 100 ML IVPB ×3 (00:28→21:32)
--- NOTE | 2024-10-24 00:31 | DI.VRAD_ITS ---
PROCEDURE INFORMATION: Exam: XR Chest Exam date and time: 10/23/2024 11:26 PM Age: 69 years old Clinical indication: Fever and other: Fever, chills, vomiting TECHNIQUE: Imaging protocol: Radiologic exam of the chest. Views: 1 view. COMPARISON: CR XR CHEST 2V PA LATERAL 08/21/2024 6:20 PM FINDINGS: Lungs: Hydrostatic interstitial pulmonary edema/CHF. Indistinctness of the pulmonary vascular markings is more pronounced in the medial right lower lobe and concomitant pneumonia in this area cannot be excluded. Pleural spaces: Unremarkable. No pleural effusion. No pneumothorax. Heart/Mediastinum: Unremarkable. No cardiomegaly. Bones/joints: Unremarkable. IMPRESSION: 1. Hydrostatic interstitial pulmonary edema/CHF. 2. Indistinctness of the pulmonary vascular markings is more pronounced in the medial right lower lobe and concomitant pneumonia in this area cannot be excluded. Dictated and Authenticated by: Jameson Chen MD. Ordering:JUAN Oconnor MD
[2024-10-24 00:39] LABS: Troponin I 33 ng/L (<or=51)
[2024-10-24] MEDS: DOXYCYCLINE 100 MG in Normal Saline 100 ML IVPB ×3 (01:02→22:20)
--- NOTE | 2024-10-24 01:34 | W.PC.ACHO ---
Registration Status: Primary Language: Preferred Language: ED Information & Data Chief Complaint Fever 10/23/24 22:42 Triage Note Pt arrives via EMS c/o 10/23/24 22:04 chills, n/v all day, productive cough. Pt reportedly prone to UTIs. Pt febrile at home at 101.6. BG hrgfhgb=024. Pt c/o urgency but denies urinary pain. 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 Pt also c/o CP/SOB. Denies diarrhea, abd pain. 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 Excess skin of eyelid Pituitary cyst Hypersomnia GAVE (gastric antral vascular ectasia) JAYDEN (obstructive sleep apnea) Acquired arteriovenous malformation Atypical angina Biliary dyskinesia Lung nodule Submucosal neoplasm of stomach Anemia Dermoid cyst History of peptic ulcer disease Osteoarthritis Pancreatitis Hypertensive disorder Hepatic encephalopathy Edema Atrophy of vagina Atrophic vaginitis Actinic keratosis Pituitary adenoma Restless legs Neoplasm of parotid gland Lumbar spondylosis Lesion of esophagus Dyslipidemia Depressive disorder Crohn's disease Chronic low back pain Anxiety Anemia Cirrhosis SALCIDO (nonalcoholic steatohepatitis) CHF (congestive heart failure) Anasarca (Last Reviewed 10/24/24 @ 00:26 by Devin Carlson) History of oophorectomy, unilateral History of rotator cuff surgery History of total knee arthroplasty History of sleeve gastrectomy History of hysterectomy Most Recent Vital Signs Temperature 38.3 C H 10/24/24 01:11 Temperature Source Temporal Artery Scan 10/24/24 01:11 Pulse 108 H 10/24/24 01:11 Pulse 109 H 10/24/24 01:10 Respiratory Rate 23 10/24/24 01:11 Respiratory Effort Normal, Non-Labored 10/24/24 01:11 Respiratory Depth Normal 10/24/24 01:11 Respiratory Pattern Normal 10/24/24 01:11 Blood Pressure 131/27 L 10/24/24 01:11 Blood Pressure Mean 61 10/24/24 01:11 Blood Pressure Position Supine 10/24/24 01:11 Pulse Oximetry 96 10/24/24 01:11 Oxygen Delivery Method Nasal Cannula 10/24/24 01:11 Oxygen Flow Rate 2 10/24/24 01:11 Pain Level 5 10/23/24 22:04 Allergies Penicillins Allergy (Severe, Verified 08/21/24 17:29) Swelling/Edema tramadol Allergy (Severe, Verified 08/21/24 17:29) Swelling/Edema apricot Allergy (Intermediate, Verified 08/21/24 17:29) Hives apricots, fruit. ferrous sulfate Allergy (Unknown, Verified 08/21/24 17:29) Other (See Comment) raspberry Allergy (Verified 08/21/24 17:29) Other (See Comment) vancomycin Adverse Reaction (Intermediate, Verified 08/21/24 17:29) Other (See Comment) Red Man Syndrome Active Medications Generic Name Dose Route Start Last Admin Trade Name Freq PRN Reason Stop Dose Admin Sodium Chloride 1,000 mls @ 150 mls/hr 10/23/24 22:30 10/24/24 00:44 Saline 1000ml Bag IV Infused INFUSION JARETT Infusion Cefepime HCl 2 gm/ Sodium 100 mls @ 200 mls/hr 10/24/24 00:30 10/24/24 01:15 Chloride IVPB Infused Q8H JARETT Infusion Doxycycline Hyclate 100 mg/ 100 mls @ 100 mls/hr 10/24/24 00:45 10/24/24 01:02 Sodium Chloride IVPB 100 mls/hr Q12H JARETT Administration IV IV Catheter Type [Left Peripheral IV Antecubital] IV Catheter Gauge [Left 18 Antecubital] Diagnostics 10/24/24 10/24/24 10/23/24 Range/Units 01:18 00:10 23:40 WBC (4.4-10.8) 10^3/uL RBC (3.93-5.22) 10^6/uL Hgb (11.2-15.7) g/dL Hct (36.0-46.0) % MCV (80-95) fL MCH (27.0-33.0) pg MCHC (32.0-36.0) % RDW (11.7-14.6) % Plt Count (130-400) 10^3/uL MPV (8.0-11.0) fL Immature Gran % % Neutrophils % % Lymphocytes % % Monocytes % % Eosinophils % % Basophils % % Nucleated RBC % (0.0-0.3) % Absolute Neutrophils (1.2-6.7) 10^3/uL Absolute Lymphocytes (1.2-3.4) 10^3/uL Absolute Monocytes (0.1-0.8) 10^3/uL Absolute Eosinophils (0.0-0.7) 10^3/uL Absolute Basophils (0.0-0.2) 10^3/uL VBG pH (7.31-7.41) VBG pCO2 (41-51) mmHg VBG pO2 mmHg VBG HCO3 (23-28) mmol/L VBG Total CO2 (24-29) mmol/L VBG O2 Saturation % VBG Base Excess (-2-3) mmol/L VBG Lactate (0.6-1.4) mmol/L Sodium (136-145) mmol/L Potassium (3.5-5.1) mmol/L Chloride (98-107) mmol/L Carbon Dioxide (21.0-32.0) mmol/L Anion Gap (3-11) mmol/L BUN (7-18) mg/dL Creatinine (0.55-1.02) mg/dL Est GFR (CKD-EPI 2020) (mL/min/1.73m2) Glucose (74-106) mg/dL Calcium (8.5-10.1) mg/dL Magnesium (1.8-2.4) mg/dL Total Bilirubin (0.2-1.0) mg/dL AST (15-37) U/L ALT (14-59) U/L Alkaline Phosphatase (46-116) U/L Troponin I Pending 33 (<or=51) ng/L Total Protein (6.4-8.2) g/dL Albumin (3.4-5.0) g/dL Urine Color Yellow (Yellow) Urine Clarity Clear (Clear) Urine pH 7.0 (5-8) Ur Specific [place] 1.025 (1.005-1.025) Urine Protein 30 H (Neg-Trace) mg/dL Urine Ketones Negative (Negative) mg/dL Urine Blood Negative (Negative) Urine Nitrite Negative (Negative) Urine Bilirubin Negative (Negative) Urine Urobilinogen 0.2 (Up to 0.2) mg/dL Ur Leukocyte Esterase Negative (Negative) Urine RBC Negative (0-2) HPF Urine WBC Negative (0-5) HPF Ur Epithelial Cells Rare (Negative) HPF Urine Crystals Negative (Negative) HPF Urine Bacteria Rare (Negative) HPF Urine Casts Negative (Negative) LPF Urine Mucus Negative (Negative) Ur Culture Indicated? C&S Done As Ordered Urine Glucose 250 H (Negative) mg/dL Fluid Type Fluid LDH COVID-19 Source SARS-CoV-2 (PCR) (Negative) Influenza Type A (PCR) (Negative) Influenza Type B (PCR) (Negative) RSV (PCR) (Negative) ABO/Rh Antibody Screen 10/23/24 10/23/24 10/23/24 Range/Units 22:35 22:18 22:10 WBC 3.62 L (4.4-10.8) 10^3/uL RBC 3.55 L (3.93-5.22) 10^6/uL Hgb 10.6 L (11.2-15.7) g/dL Hct 32.7 L (36.0-46.0) % MCV 92 (80-95) fL MCH 29.9 (27.0-33.0) pg MCHC 32.4 (32.0-36.0) % RDW 14.9 H (11.7-14.6) % Plt Count 93 L (130-400) 10^3/uL MPV (8.0-11.0) fL Immature Gran % 0.3 % Neutrophils % 83.1 % Lymphocytes % 11.9 % Monocytes % 2.5 % Eosinophils % 1.9 % Basophils % 0.3 % Nucleated RBC % 0.0 (0.0-0.3) % Absolute Neutrophils 3.01 (1.2-6.7) 10^3/uL Absolute Lymphocytes 0.43 L (1.2-3.4) 10^3/uL Absolute Monocytes 0.09 L (0.1-0.8) 10^3/uL Absolute Eosinophils 0.07 (0.0-0.7) 10^3/uL Absolute Basophils 0.01 (0.0-0.2) 10^3/uL VBG pH 7.44 H (7.31-7.41) VBG pCO2 41 (41-51) mmHg VBG pO2 35 mmHg VBG HCO3 28 (23-28) mmol/L VBG Total CO2 26 (24-29) mmol/L VBG O2 Saturation 67 % VBG Base Excess 4 H (-2-3) mmol/L VBG Lactate 2.2 H* (0.6-1.4) mmol/L Sodium 141 (136-145) mmol/L Potassium 3.9 (3.5-5.1) mmol/L Chloride 106 (98-107) mmol/L Carbon Dioxide 27.2 (21.0-32.0) mmol/L Anion Gap 7.8 (3-11) mmol/L BUN 18 (7-18) mg/dL Creatinine 0.9 (0.55-1.02) mg/dL Est GFR (CKD-EPI 2020) 69.20 (mL/min/1.73m2) Glucose 326 H (74-106) mg/dL Calcium 8.6 (8.5-10.1) mg/dL Magnesium 1.6 L (1.8-2.4) mg/dL Total Bilirubin 1.01 H (0.2-1.0) mg/dL AST 45 H (15-37) U/L ALT 28 (14-59) U/L Alkaline Phosphatase 336 H (46-116) U/L Troponin I 18 (<or=51) ng/L Total Protein 6.4 (6.4-8.2) g/dL Albumin 2.6 L (3.4-5.0) g/dL Urine Color (Yellow) Urine Clarity (Clear) Urine pH (5-8) Ur Specific [place] (1.005-1.025) Urine Protein (Neg-Trace) mg/dL Urine Ketones (Negative) mg/dL Urine Blood (Negative) Urine Nitrite (Negative) Urine Bilirubin (Negative) Urine Urobilinogen (Up to 0.2) mg/dL Ur Leukocyte Esterase (Negative) Urine RBC (0-2) HPF Urine WBC (0-5) HPF Ur Epithelial Cells (Negative) HPF Urine Crystals (Negative) HPF Urine Bacteria (Negative) HPF Urine Casts (Negative) LPF Urine Mucus (Negative) Ur Culture Indicated? Urine Glucose (Negative) mg/dL Fluid Type Cancelled Fluid LDH Cancelled COVID-19 Source Nasopharynx SARS-CoV-2 (PCR) Negative (Negative) Influenza Type A (PCR) Negative (Negative) Influenza Type B (PCR) Negative (Negative) RSV (PCR) Negative (Negative) ABO/Rh O Positive Antibody Screen NEGATIVE 10/23/24 23:46 Blood Culture - Pending Blood 10/23/24 23:40 Urine Culture - Pending Urine - Cath Straight 10/23/24 22:35 Blood Culture - Pending Blood Intake and Output - 24 Hour Total 10/23/24 21:57 thru 10/24/24 01:15 Intake Total 1200 Output Total 625 Balance 575 Weight 99.337 kg Intake: IV 1200 Output: Urine 625 Falls Risk Assessment History of Falls Previous History 10/23/24 22:14 Contributing Factors No Factors,Impairments, 10/23/24 22:14 Incontinence Ambulatory Aids Uses ambulatory device + 10/23/24 22:14 Tubes/Lines With any additional score 10/23/24 22:14 Gait Evaluation W/any additional score 10/23/24 22:14 Cognition No cognitive impairment 10/23/24 22:14 Fall Total Score 91 10/23/24 22:14 Level of Risk Maximum Risk 10/23/24 22:14 Problems (Last Reviewed 10/24/24 @ 00:26 by Devin Carlson) Hypomagnesemia (Chronic) Sepsis (Acute) Type 2 diabetes mellitus (Chronic) Liver cirrhosis secondary to SALCIDO (Acute) v v v v v v v v v Sending and/or Receiving Nurses: Please use comment section below to note any information pertinent to the patient hand-off not included above. Information / Comments: Report given by Minnie aparicio . Report received from:
[2024-10-24 02:00] LABS: Troponin I 48 ng/L (<or=51)
[2024-10-24] MEDS: MAGNESIUM SULFATE 2 GM/50 ML BAG IV_INF (02:23)
[2024-10-24] MEDS: Normal Saline Flush 10 ML SYR IVP ×4 (02:30→22:21)
--- NOTE | 2024-10-24 02:55 | NUR.NOTE ---
69 YO female admitted for sepsis/PNA/CHF. Oriented pt to room and all controls. Pt A&Ox4. Pt stated,I think I need more help at home I am getting a lot slower with moving. I do have someone come help clean my house. My is in [place] but I live with my son who just had a heart attack.Nursing Note:
[2024-10-24 06:42] LABS: HCT 29.5 % (36.0-46.0); MCH 29.7 pg (27.0-33.0); MCHC 32.2 % (32.0-36.0); MCV 92 fL (80-95); MPV 10.6 fL (8.0-11.0); RDW 15.1 % (11.7-14.6); RDW-SD 51.3 fL; WBC 10.42 10^3/uL (4.4-10.8)
[2024-10-24 07:08] LABS: ALT 23 U/L (14-59); AST 44 U/L (15-37); Albumin 2.2 g/dL (3.4-5.0); Alkaline Phosphatase 222 U/L (46-116); Anion Gap 7.9 mmol/L (3-11); BUN 25 mg/dL (7-18); Bilirubin, Total 1.92 mg/dL (0.2-1.0); CO2 26.1 mmol/L (21.0-32.0); CREATININE 1.2 mg/dL (0.55-1.02); Calcium 8.6 mg/dL (8.5-10.1); Chloride 109 mmol/L (98-107); Glucose 229 mg/dL (74-106); Magnesium 2.1 mg/dL (1.8-2.4); Potassium 3.5 mmol/L (3.5-5.1); Sodium 143 mmol/L (136-145); Total Protein 5.3 g/dL (6.4-8.2)
[2024-10-24 07:10] LABS: HGB 9.5 g/dL (11.2-15.7); Platelet Count 84 10^3/uL (130-400)
[2024-10-24] MEDS: Lactulose 20 GM/30 ML CUP 30 GM PO ×3 (08:13→19:31)
[2024-10-24] MEDS: rOPINIRole 1 MG TAB 2 MG PO ×2 (08:14→19:27)
[2024-10-24] MEDS: FLUoxetine 20 MG CAP 40 MG PO (08:14)
[2024-10-24] MEDS: Acetaminophen 325 MG TAB PO (08:14)
[2024-10-24] MEDS: Pantoprazole 40 MG TABCR PO ×2 (08:15→17:03)
[2024-10-24] MEDS: Oxybutynin 5 MG TAB PO ×2 (08:15→19:27)
[2024-10-24] MEDS: Potassium Chloride 20 MEQ TABCR PO ×2 (08:15→17:03)
[2024-10-24] MEDS: Torsemide 20 MG TAB 40 MG PO (08:15)
[2024-10-24] MEDS: Insulin Aspart 300 UNITS/3 ML PEN SC ×4 (08:18→21:31)
[2024-10-24] MEDS: Enoxaparin 40 MG/0.4 ML SYR SC (08:22)
[2024-10-24] MEDS: Magnesium Oxide 400 MG TAB PO (08:25)
[2024-10-24 09:54] LABS: Lactate 3.8 mmol/L (0.6-1.4)
--- NOTE | 2024-10-24 12:40 | PHA.REVIEW2 ---
Pharmacy Admission Review Admission Clinical Review Admission Pharmacy Review: Sepsis (Acute) Liver cirrhosis secondary to SALCIDO (Acute) Penicillins Allergy (Severe, Verified 08/21/24 17:29) Swelling/Edema tramadol Allergy (Severe, Verified 08/21/24 17:29) Swelling/Edema apricot Allergy (Intermediate, Verified 08/21/24 17:29) Hives ferrous sulfate Allergy (Unknown, Verified 08/21/24 17:29) Other (See Comment) raspberry Allergy (Verified 08/21/24 17:29) Other (See Comment) vancomycin Adverse Reaction (Intermediate, Verified 08/21/24 17:29) Other (See Comment) Resuscitation Status Full Code Height 5 ft 1 in Weight 99.337 kg Pharmacy Admission Review Renal Dosing Renal Dosing: BUN 25 mg/dL (7-18) H 10/24/24 06:29 Creatinine 1.2 mg/dL (0.55-1.02) H 10/24/24 06:29 Medications needing adjustments: Intervened (CrCl 47.79 mL/min, BUN increased from 18 and Scr increased from 0.9) List of meds needing interventions: Changed cefepime dose from q8h to q12h Anticoagulation Anticoagulation: Hgb 9.5 g/dL (11.2-15.7) L 10/24/24 06:29 Hct 29.5 % (36.0-46.0) L 10/24/24 06:29 Plt Count 84 10^3/uL (130-400) L 10/24/24 06:29 Creatinine 1.2 mg/dL (0.55-1.02) H 10/24/24 06:29 DVT Prophylaxis: Intervened (changed from daily to BID due to BMI of 41.4, hgb decreased from 10.6) Medications: Enoxaparin (40mg BID) Opiate Usage Evaluate Pain Scale/Pains Meds: Reviewed (oxycodone 5mg q6h PRN - no doses given) Scheduled Bowel Reg ordered if on Opiates?: No (PRN docusate/Miralax) Relevant Labs Relevant Labs: Sodium 143 mmol/L (136-145) 10/24/24 06:29 Potassium 3.5 mmol/L (3.5-5.1) 10/24/24 06:29 Chloride 109 mmol/L (98-107) H 10/24/24 06:29 Magnesium 2.1 mg/dL (1.8-2.4) 10/24/24 06:29 Electrolytes, C-Reactive P, ESR: Reviewed DM Control DM Control: Glucose 229 mg/dL (74-106) H 10/24/24 06:29 Finger Stick Blood Glucose 324 1120 Finger Stick Blood Glucose 324 1120 Finger Stick Blood Glucose 214 0818 Finger Stick Blood Glucose 214 0749 Finger Stick Blood Glucose 214 0749 DM Control: Reviewed Insulin Dosing, Diabetic Medication: Has order for SS insulin Cardiac Review Cardiac Review: Troponin I 48 ng/L (<or=51) 10/24/24 01:36 Blood Pressure 105/39 1115 Blood Pressure 116/48 0759 Blood Pressure 115/40 0740 Blood Pressure 104/47 0203 Blood Pressure 131/27 0111 Blood Pressure 132/31 0101 BP, HR, EF%: Reviewed (HR WNL, Ox 90) List meds needing interventions: Has order for torsemide 40mg daily QTc Review QTc: Reviewed (441 from 10/23/24) IV to PO Switch IV Medications: Reviewed (cefepime and doxycycline) Home Meds Home Med List reviewed: Intervened Relevent Home Meds Not ordered & why?: metformin (on hold) and ozempic (has not started yet, starting in November per home med list) Reached out to nurse regarding doxepin dose. Home med list said 2 caps (20mg) at bedtime but prescription says 3 caps (30mg) at bedtime. Nurse asked patient and patient confirmed it is 3 caps at bedtime. I updated home med list and order. Current Meds Current Medication Order Review: Intervened Comments: Changed IV access Has order for Nystatin powder 15g jar. Currently out of stock, on order for Saturday. Pharmacy Antibiotic Review Relevant Labs: WBC 10.42 10^3/uL (4.4-10.8) 10/24/24 06:29 Temperature 36.8 C Temperature 37 C Temperature 38.0 C 0203 Temperature 38.3 C 0111 Microbiology 10/23/24 23:46 Blood Culture - Preliminary Blood Gram Negative Chan 10/23/24 22:35 Blood Culture - Preliminary Blood Gram Negative Chan Pharmacy Antibiotic Activity: C/S review and Renal function adjustment (changed cefepime from q8h to q12h) Comments: Patient is on cefepime and doxycycline, day 1, for sepsis/bacteremia. Cefepime is renally dosed at 2g q12h. Urine culture is still pending. Did have elevated temperature early this morning.
[2024-10-24] MEDS: Nystatin POWDER 15 GM JAR TP ×2 (17:02→19:29)
--- NOTE | 2024-10-24 17:13 | INITIAL_ITS ---
Date of service: 10/24/24 Time of Service: 14:30 Care Management Initial Assmt Initial Assessment Reason for Hospitalization: sepsis, Functional Status/Living Situation Patient Presentation: Re was admitted yesterday with c/o fever, shaking chills. She did c/o some vomiting. Re was sitting up in the chair when CM met with her. She was very pleasant, and engaged easily. She stated that her is in a residential, and every time she has an extended visit, she seems to get sick. She had eaten a clear liquid lunch, and was eager to advance her diet. Re stated that the last time she was in the hospital, her and son moved a bunch of furniture and boxes, and she no longer can use her walker in the house. She has been supporting herself with quintana and furniture. Re feels that she would also like to resume her home health RN and PT, but does not think PT could work with her in the current state of her home. Re has hired a ditch cleaner to come and declutter the house. Town of Residence: [place] Resides with: Child (Isra , Alexis, is in a SNF and is likely not coming home.) Significant Other/Family: Out of area (sister in [place]) Natural Supports: family Employment Status: Retired Instrumental Activities of Daily Living (ADLs): Independent Medications Medication Management: No Issues/Barriers identified Physical Functioning/Mobility Assistive Device: walker when she is out, but as above, unable to use at home at this time Advance Directives Advance Directives: Do you have an Advance Directive: N 09/23/23 16:39 AD On File at [facility]: N 09/23/23 16:39 Date Asked 09/23/24 09/23/24 10:53 AD Date Reviewed COLST On File at [facility] No 09/11/24 23:35 COLST Date Scanned Code Status Resuscitation Status Full Code Portal Pt does not currently have a portal and education provided: Yes Insurance Coverage/Financial Issues Insurance: [employer] Medicare Replacement Care Team Visit Care Team Role Provider Type Jefe Coffey Primary Care Provider NON-[facility] STAFF P ALE [place] MD Emergency Provider [facility] STAFF PHYSICIAN Devin Carlson Admit Provider NON-[facility] STAFF PHYSICIAN Attending Provider Discharge Potential Discharge Needs: PT Evaluation and PCP F/U Appt Anticipated Barriers to Discharge: None Identified Patient/Family Education Needs: Review discharge instructions, discuss Ask Me Three Transportation: Private vehicle Plan: Anticipate Re will be discharged home when medically cleared. She will have new home health services for nursing, through [facility]. She will follow up with her community providers and plan of care and transport with family. CM will follow and continue to support discharge needs. [facility] All Active Problems (Updated 10/24/24 @ 10:03 by Devin Carlson) Encephalopathy (Chronic) Presumed secondary to chronic liver disease. Chronically elevated ammonia level. On lactulose. Hypomagnesemia (Chronic) Sepsis (Acute) Bacteremia due to Klebsiella pneumoniae (Acute) CHF exacerbation (Acute) Acute renal failure (Acute) Acute coronary syndrome with high troponin (Acute) Sepsis due to Gram-negative organism with septic shock (Acute) Type 2 diabetes mellitus (Chronic) Liver cirrhosis secondary to SALCIDO (Acute) Medical History Hypovolemia Hyperammonemia Encephalopathy Presumed secondary to chronic liver disease. Chronically elevated ammonia level. On lactulose. 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 Left clavicle Excess skin of eyelid Pituitary cyst Hypersomnia GAVE (gastric antral vascular ectasia) JAYDEN (obstructive sleep apnea) Acquired arteriovenous malformation Atypical angina Biliary dyskinesia Lung nodule Submucosal neoplasm of stomach Anemia Dermoid cyst History of peptic ulcer disease Osteoarthritis Pancreatitis Hypertensive disorder Hepatic encephalopathy Edema Atrophy of vagina Atrophic vaginitis Actinic keratosis Pituitary adenoma Restless legs Neoplasm of parotid gland Lumbar spondylosis Lesion of esophagus Dyslipidemia Depressive disorder Crohn's disease Chronic low back pain Anxiety Anemia Cirrhosis SALCIDO (nonalcoholic steatohepatitis) CHF (congestive heart failure) Anasarca Surgical History History of oophorectomy, unilateral History of rotator cuff surgery bilateral History of total knee arthroplasty bilateral History of sleeve gastrectomy History of hysterectomy Family History Brother Cancer Lung Alcohol use disorder 2 older brothers Social History Smoking/Tobacco Use Status: Never Smoking risk assessment performed?: Yes Alcohol Intake: never Drug use: Never Substance use type: does not use Housing: house Current gender identity: female Do you feel safe at home: Yes Do you feel safe in your relationship?: Yes Additional Social history: Lives with Arslan, and son in [place]. Moved from [place] in 2020. Has a dog and 8 pet birds. Readmission Within the Past 30 Days Yes or No: No SDOH(Care Management) Screening Will the Patient Participate in the Screening?: Declined to provide Do you worry about having a steady place to live?: choose not to answer
[2024-10-24] MEDS: Doxepin 10 MG CAP 30 MG PO (19:26)
[2024-10-24] MEDS: Atorvastatin 40 MG TAB 80 MG PO (19:26)
[2024-10-25] VITALS (9 sets, daily range): BP systolic 99–133; BP diastolic 33–52; PULSE 70–83; RESP 16–20; TEMP 36.6–38.3; O2SAT 88–97
[2024-10-25] MEDS: Normal Saline Flush 10 ML SYR IVP ×5 (02:15→22:14)
[2024-10-25] MEDS: Normal Saline 1,000 ML 150 ML IV (02:20)
[2024-10-25 05:31] LABS: HCT 27.4 % (36.0-46.0); HGB 8.7 g/dL (11.2-15.7); MCH 29.9 pg (27.0-33.0); MCHC 31.8 % (32.0-36.0); MCV 94 fL (80-95); MPV 11.1 fL (8.0-11.0); RBC 2.91 10^6/uL (3.93-5.22); RDW 15.8 % (11.7-14.6); RDW-SD 55.2 fL; WBC 9.95 10^3/uL (4.4-10.8)
[2024-10-25 05:42] LABS: Platelet Count 77 10^3/uL (130-400)
[2024-10-25 05:45] LABS: ALT 25 U/L (14-59); AST 40 U/L (15-37); Albumin 1.9 g/dL (3.4-5.0); Alkaline Phosphatase 163 U/L (46-116); Anion Gap 6.8 mmol/L (3-11); BUN 32 mg/dL (7-18); Bilirubin, Total 1.31 mg/dL (0.2-1.0); CO2 25.2 mmol/L (21.0-32.0); CREATININE 1.3 mg/dL (0.55-1.02); Calcium 8.1 mg/dL (8.5-10.1); Chloride 110 mmol/L (98-107); Estimated GFR 44.51 (mL/min/1.73m2); Glucose 248 mg/dL (74-106); Potassium 3.5 mmol/L (3.5-5.1); Sodium 142 mmol/L (136-145); Total Protein 4.8 g/dL (6.4-8.2)
[2024-10-25] MEDS: Lactulose 20 GM/30 ML CUP 30 GM PO ×3 (08:05→19:49)
[2024-10-25] MEDS: Pantoprazole 40 MG TABCR PO ×2 (08:07→16:00)
[2024-10-25] MEDS: FLUoxetine 20 MG CAP 40 MG PO (08:07)
[2024-10-25] MEDS: Magnesium Oxide 400 MG TAB PO (08:07)
[2024-10-25] MEDS: Oxybutynin 5 MG TAB PO ×2 (08:07→19:50)
[2024-10-25] MEDS: rOPINIRole 1 MG TAB 2 MG PO ×2 (08:07→19:50)
[2024-10-25] MEDS: Potassium Chloride 20 MEQ TABCR PO ×3 (08:07→17:10)
[2024-10-25] MEDS: Torsemide 20 MG TAB 40 MG PO (08:08)
[2024-10-25] MEDS: Insulin Aspart 300 UNITS/3 ML PEN SC ×4 (08:15→23:16)
[2024-10-25] MEDS: CEFEPIME 2 GM in Normal Saline 100 ML IVPB ×2 (09:49→22:10)
[2024-10-25] MEDS: DOXYCYCLINE 100 MG in Normal Saline 100 ML IVPB ×2 (10:26→23:16)
--- NOTE | 2024-10-25 11:53 | W.PM.PROGNOT ---
Date of Service Date of service: 10/25/24 Time of Service: 11:53 Assessment and Plan Assessment and plan (1) Sepsis: Status: Acute Assessment and plan: Vital signs are stable afebrile, white count remains normal. Urine culture with no growth to date Blood cultures growing gram-negative rods, A.m. labs repeat blood cultures add procalcitonin add CRP, repeat blood cultures Continue cefepime and doxycycline day 2 while culture reports pending Patient has no complaints of pain, headache, nausea, abdominal pain, respiratory complaints, oxygen requirements or rashes or lesions. Radiographic evidence of right lower lobe pneumonia possible. Will continue antibiotic coverage for pneumonia. (2) Encephalopathy: Status: Chronic Assessment and plan: resolved and at baseline (3) Hypomagnesemia: Status: Chronic Assessment and plan: Recurrent with patient to be repleted with IV magnesium 2 g and continue oral supplementation chronically on diuretics. (4) CHF (congestive heart failure): Assessment and plan: With preserved left-ventricular ejection fraction and increased PA pressures by echo August 2024. Patient is slightly dehydrated with acute presentation creatinine elevated and will receive IV fluids to be decreased once she is taking adequate oral intake or for fluid overload. She is on chronic Lasix. This will be continued. (5) Type 2 diabetes mellitus: Status: Chronic Assessment and plan: Hold outpatient medical therapy with moderate insulin sliding scale coverage glucometers before meals and at bedtime. (6) Liver cirrhosis secondary to SALCIDO: Status: Acute Assessment and plan: Continue outpatient medical therapy. (7) JAYDEN (obstructive sleep apnea): Assessment and plan: Continue home BiPAP. discussed with DR Torres Subjective Subjective Patient reports: no new complaints, voiding w/o difficulty and afebrile Interval history since last seen: max temp 37.7 hemodynamically stable Exam Narrative Exam Narrative: Elderly female appearing older than stated age in no acute distress head is atraumatic eyes nonicteric noninjected facial features symmetrical oral mucosas moist no oral exudates neck is supple with full range of motion no meningeal signs respirations are even and unlabored her breath sounds are clear bilaterally abdomen is obese soft nontender positive bowel sounds she moves all extremities equally. Neurologic she is awake alert oriented no focal deficits psychiatric normal mood and affect Objective Last Vital Signs Temp 37.3 C 10/25/24 11:11 Pulse 74 10/25/24 11:11 Resp 20 10/25/24 11:11 BP 120/37 L 10/25/24 11:11 Pulse Ox 97 10/25/24 11:11 Laboratory Results - last 24 hr 10/25/24 05:18 WBC 9.95 RBC 2.91 L Hgb 8.7 L Hct 27.4 L MCV 94 MCH 29.9 MCHC 31.8 L RDW 15.8 H Plt Count 77 L MPV 11.1 H Sodium 142 Potassium 3.5 Chloride 110 H Carbon Dioxide 25.2 Anion Gap 6.8 BUN 32 H Creatinine 1.3 H Est GFR (CKD-EPI 2020) 44.51 Glucose 248 H Calcium 8.1 L Magnesium 2.0 Total Bilirubin 1.31 H AST 40 H ALT 25 Alkaline Phosphatase 163 H Total Protein 4.8 L Albumin 1.9 L Time Spent with Patient Time Spent with Patient: 35-49 minutes Time was spent: preparing to see the patient(eg.review tests), obtaining and/or reviewing separately otained hiistory, ordering medications,tests, procedures, indepentently interpreting results and counseling the patient
[2024-10-25] MEDS: Nystatin POWDER 15 GM JAR TP (13:53)
[2024-10-25] MEDS: Atorvastatin 40 MG TAB 80 MG PO (19:50)
[2024-10-25] MEDS: Doxepin 10 MG CAP 30 MG PO (19:50)
[2024-10-26] VITALS (9 sets, daily range): BP systolic 111–130; BP diastolic 42–58; PULSE 70–92; RESP 18–22; TEMP 36.5–37.3; O2SAT 95–99
[2024-10-26] MEDS: Normal Saline Flush 10 ML SYR IVP ×5 (00:26→21:14)
[2024-10-26 06:42] LABS: Abs Immature Grans 0.01 10^3/uL (0.0-0.06); Absolute Basophil Count 0.04 10^3/uL (0.0-0.2); Absolute Eosinophil Count 0.31 10^3/uL (0.0-0.7); Absolute Lymphocyte Count 0.95 10^3/uL (1.2-3.4); Absolute Monocyte Count 0.74 10^3/uL (0.1-0.8); Absolute Neutrophil Count 4.34 10^3/uL (1.2-6.7); Basophils % 0.6 %; Eosinophils % 4.9 %; Immature Grans % 0.2 %; Lymphocytes % 14.9 %; MCH 37.5 pg (27.0-33.0); MCHC 40.7 % (32.0-36.0); MCV 92 fL (80-95); MPV 10.7 fL (8.0-11.0); Monocytes % 11.6 %; Neutrophils % 67.8 %; RBC 2.93 10^6/uL (3.93-5.22); RDW 15.5 % (11.7-14.6); RDW-SD 52.3 fL; WBC 6.39 10^3/uL (4.4-10.8)
[2024-10-26 06:56] LABS: ALT 21 U/L (14-59); AST 30 U/L (15-37); Albumin 1.9 g/dL (3.4-5.0); Alkaline Phosphatase 155 U/L (46-116); Anion Gap 4.9 mmol/L (3-11); BUN 28 mg/dL (7-18); Bilirubin, Total 1.12 mg/dL (0.2-1.0); CO2 30.1 mmol/L (21.0-32.0); CREATININE 1.2 mg/dL (0.55-1.02); Calcium 7.9 mg/dL (8.5-10.1); Chloride 107 mmol/L (98-107); Glucose 230 mg/dL (74-106); Magnesium 1.6 mg/dL (1.8-2.4); Potassium 3.1 mmol/L (3.5-5.1); Sodium 142 mmol/L (136-145); Total Protein 4.9 g/dL (6.4-8.2)
[2024-10-26 07:00] LABS: C-Reactive Protein 5.83 mg/dL (<or=0.5)
[2024-10-26 07:20] LABS: Platelet Count 89 10^3/uL (130-400)
[2024-10-26 07:43] LABS: Procalcitonin 4.53 ng/mL
[2024-10-26] MEDS: Insulin Aspart 300 UNITS/3 ML PEN SC ×4 (08:38→21:13)
[2024-10-26] MEDS: Torsemide 20 MG TAB 40 MG PO (08:53)
[2024-10-26] MEDS: rOPINIRole 1 MG TAB 2 MG PO ×2 (08:54→21:14)
[2024-10-26] MEDS: Pantoprazole 40 MG TABCR PO ×2 (08:54→16:45)
[2024-10-26] MEDS: Oxybutynin 5 MG TAB PO ×2 (08:54→21:13)
[2024-10-26] MEDS: Magnesium Oxide 400 MG TAB PO (08:54)
[2024-10-26] MEDS: Potassium Chloride 20 MEQ TABCR PO ×3 (08:55→16:45)
[2024-10-26] MEDS: FLUoxetine 20 MG CAP 40 MG PO (08:55)
[2024-10-26] MEDS: CEFEPIME 2 GM in Normal Saline 100 ML IVPB ×2 (08:57→21:14)
[2024-10-26] MEDS: DOXYCYCLINE 100 MG in Normal Saline 100 ML IVPB ×2 (09:35→22:14)
[2024-10-26] MEDS: Lactulose 20 GM/30 ML CUP 30 GM PO ×3 (10:52→21:13)
[2024-10-26] MEDS: Nystatin POWDER 60 GM JAR TP ×3 (10:52→22:22)
--- NOTE | 2024-10-26 10:57 | W.PM.PROGNOT ---
Date of Service Date of service: 10/26/24 Time of Service: 10:57 Assessment and Plan Assessment and plan (1) Sepsis: Status: Acute Assessment and plan: Vital signs are stable afebrile, white count remains normal. Urine culture with no growth to date Blood cultures growing Klebsiella pneumoniae repeat blood cultures pending procalcitonin and CRP, both elevated, obtained for trending if needed Continue cefepime and doxycycline day 3 while sensitivities pending Patient has no complaints of pain, headache, nausea, abdominal pain, respiratory complaints, oxygen requirements or rashes or lesions. Radiographic evidence of right lower lobe pneumonia possible. Will continue antibiotic coverage for pneumonia. (2) Encephalopathy: Status: Chronic Assessment and plan: resolved and at baseline (3) Hypomagnesemia: Status: Chronic Assessment and plan: Recurrent with patient to be repleted with IV magnesium 2 g and continue oral supplementation chronically on diuretics. (4) CHF (congestive heart failure): Assessment and plan: With preserved left-ventricular ejection fraction and increased PA pressures by echo August 2024. Appears euvolemic, monitor hydration status closely Continue home torsemide (5) Type 2 diabetes mellitus: Status: Chronic Assessment and plan: Hold outpatient medical therapy with moderate insulin sliding scale coverage glucometers before meals and at bedtime. (6) Liver cirrhosis secondary to SALCIDO: Status: Acute Assessment and plan: Continue outpatient medical therapy. (7) JAYDEN (obstructive sleep apnea): Assessment and plan: Continue home BiPAP. discussed with DR Torres Subjective Subjective Patient reports: no new complaints, feels better, tolerating liquids well, tolerating a regular diet and afebrile Exam Narrative Exam Narrative: Elderly female appearing older than stated age in no acute distress head is atraumatic eyes nonicteric noninjected facial features symmetrical oral mucosas moist no oral exudates neck is supple with full range of motion no meningeal signs respirations are even and unlabored her breath sounds are clear bilaterally abdomen is obese soft nontender positive bowel sounds she moves all extremities equally. Neurologic she is awake alert oriented no focal deficits psychiatric normal mood and affect Objective Last Vital Signs Temp 36.8 C 10/26/24 08:17 Pulse 71 10/26/24 08:17 Resp 18 10/26/24 08:17 BP 120/56 L 10/26/24 08:17 Pulse Ox 98 10/26/24 08:17 Laboratory Results - last 24 hr 10/26/24 10/26/24 10/26/24 05:35 06:00 06:25 WBC 6.39 RBC 2.93 L Hgb 11.0 L D Hct 27.0 L MCV 92 MCH 37.5 H MCHC 40.7 H D RDW 15.5 H Plt Count 89 L MPV 10.7 Immature Gran % 0.2 Neutrophils % 67.8 Lymphocytes % 14.9 Monocytes % 11.6 Eosinophils % 4.9 Basophils % 0.6 Nucleated RBC % 0.0 Absolute Neutrophils 4.34 Absolute Lymphocytes 0.95 L Absolute Monocytes 0.74 Absolute Eosinophils 0.31 Absolute Basophils 0.04 VBG Lactate 1.0 Sodium Cancelled 142 Potassium Cancelled 3.1 L Chloride Cancelled 107 Carbon Dioxide Cancelled 30.1 Anion Gap Cancelled 4.9 BUN Cancelled 28 H Creatinine Cancelled 1.2 H Est GFR (CKD-EPI 2020) Cancelled 49.00 Glucose Cancelled 230 H Calcium Cancelled 7.9 L Magnesium 1.6 L Total Bilirubin 1.12 H AST 30 ALT 21 Alkaline Phosphatase 155 H C-Reactive Protein 5.83 H Total Protein 4.9 L Albumin 1.9 L Procalcitonin 4.53 Time Spent with Patient Time Spent with Patient: 25-34 minutes Time was spent: preparing to see the patient(eg.review tests), obtaining and/or reviewing separately otained hiistory, ordering medications,tests, procedures, indepentently interpreting results and counseling the patient
--- NOTE | 2024-10-26 12:01 | CMPROGNOTE_ITS ---
Date of service: 10/26/24 Time of Service: 12:02 Care Management Progress Note Progress Note Text Progress Note Text: Eli was awake and sitting in a recliner when CM met with her. She is pleasant and easily engages in conversation. PT is present during this interaction and reviewed their recommendation of SNF for STR prior to returning home, depending on mobility when medically ready for discharge. Eli is agreeable and verbalizes that she wants to take all the steps needed to prevent a future readmission to the hospital. Referrals are sent to [facility] and the [facility] with pts consent. Eli also shares that she is unable to use a walker at home due to space limitations. She is in the process of decluttering her home and has hired a company to assist with this. Discharge Potential Discharge Needs: PCP F/U Appt Anticipated Barriers to Discharge: Medical Status Patient/Family Education Needs: Review discharge instructions, discuss Ask Me Three Transportation: Private vehicle Plan: PT recommends SNF for STR vs. home with New [facility] PT, depending on progress made during her hospital stay. Referrals are sent to [facility] and [facility]. If goals are met during her hospital stay pt would likely benefit from full [facility] services (RN, PT,OT,NEUROLOGY NURSE). Would need F/U with community providers and transport with family. CM will follow and continue to support discharge needs. SDOH(Care Management) Screening Will the Patient Participate in the Screening?: Declined to provide Do you worry about having a steady place to live?: choose not to answer
--- NOTE | 2024-10-26 12:09 | PT.INIE ---
PT Notes Visit Reasons: Sepsis, Encephalopathy Physical Therapy Initial Evaluation Date: 10/26/2024 Referring Doctor: Karuna Segal NP PT Orders: PT CONSULT: PT evaluation and treatment Precautions: Standard, fall risk Patient Profile/Admitting Diagnosis: Pt is a 69 yo female presented to ED from home via EMS with fever, tachycardia. Pt diagnosed with sepsis. CxR revealed Increased interstitial markings in the lungs with prominence of the pulmonary vasculature suggesting fluid overload/CHF. Labs also noted hypomagnesium. She also slightly dehydrated and will be gently IV hydrated watch for fluid overload with history of CHF with increased PA pressures but preserved left-ventricular ejection fraction by updated echocardiogram in August 2024. Patient was initiated on cefepime and added doxycycline for possible pulmonary source of infection. Pt then treated with diuretics with monitoring of blood glucose levels. Pt transferred to med -surg unit for ongoing medical management. Pt Consult placed on 10/24/2024. PMHX: Encephalopathy (Chronic) Presumed secondary to chronic liver disease. Chronically elevated ammonia level. On lactulose.Hypomagnesemia (Chronic) Sepsis (Acute) Bacteremia due to Klebsiella pneumoniae (Acute) CHF exacerbation (Acute) Acute renal failure (Acute) Acute coronary syndrome with high troponin (Acute) Sepsis due to Gram-negative organism with septic shock (Acute) Type 2 diabetes mellitus (Chronic) Liver cirrhosis secondary to SALCIDO (Acute) Medical History Hypovolemia Hyperammonemia Encephalopathy Presumed secondary to chronic liver disease. Chronically elevated ammonia level. 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 Left clavicleExcess skin of eyelid Pituitary cyst Hypersomnia GAVE (gastric antral vascular ectasia) JAYDEN (obstructive sleep apnea) Acquired arteriovenous malformation Atypical angina Biliary dyskinesia Lung nodule Submucosal neoplasm of stomach Anemia Dermoid cyst History of peptic ulcer disease Osteoarthritis Pancreatitis Hypertensive disorder Hepatic encephalopathy Edema Atrophy of vagina Atrophic vaginitis Actinic keratosis Pituitary adenoma Restless legs Neoplasm of parotid gland Lumbar spondylosis Lesion of esophagus Dyslipidemia Depressive disorder Crohn's disease Chronic low back pain Anxiety Anemia Cirrhosis SALCIDO (nonalcoholic steatohepatitis) CHF (congestive heart failure) Anasarca Surgical History History of oophorectomy, unilateral History of rotator cuff surgery bilateralHistory of total knee arthroplasty bilateralHistory of sleeve gastrectomy History of hysterectomy Social History/Home Situation: Pt resides in a 2 story home with a ramp to enter. She stays on the first floor and her son resides on the second floor. Pt reports her home is cluttered and she is unable to use a walker. She states she has 8 birds, 1 rabbit and a dog. She is independent with ADL, ambulation holding onto the items in her home. She sleeps in a recliner and has a commode next to her chair. She no longer drives as she has narcolepsy. She reports he is a [employer] currently as she is no longer able to care for him. She reports she walks up the ramp holding the railing. Equipment Owned/DME: commode, ramp to enter Subjective: Pt reports she has paid a company to come into her home and clean in out/ organize her home so she can get to all of her rooms and use a walker indoors. Objective: General Observation: Pleasant female doing crafts while seated in bedside chair. She is agreeable to participate in PT assessment. Mental Status: Alert and oriented x 4 Pain: denied Vitals: 111/58, HR 75, pulse ox 96% ROM: BUE : full AROM all joints BLE : WFL limited by body habitus hip flexion and knee flexion Strength: BUE: full AROM against gravity Right Lower Extremity: hip3/5, knee 3/5 ankle 3/5 Left Lower Extremity: hip 3/5, knee 3/5 ankle 3/5 Sensation: intact reports toes numb Bed Mobility/Transfers: Supine to sit min A for trunk with HOB at 30 degrees Sit to stand CGA Stand to sit CGA Bed to chair CGA with FWW Gait: amulated 25 feet x 2 with FWW, CGA , slow simone, increased lateral weight shift, impaired step height. - ambulate 10 feet without AD ( no device at home d/t no space for FWW) Mod A excessive lateral weight shift onto PT to advance LEs, impaired step length. Balance: Static Sitting: normal Dynamic Sitting: good Static Standing: fair+ Dynamic Standing: Fair without UE support Special Tests: [] Mobility Limitations Standardized Measure [] [facility] [place] AM-PAC 6 clicks Basic Mobility Inpatient Short Form: [] Raw Score: [17 CMS Score: 50.57% Informed Consent/Education: Patient instructed in purpose of PT consult, goals and plan of care.. Assessment: Patient is a 69-year-old female presents with clinical signs and symptoms consistent with current/admitting diagnoses that have resulted to mobility limitations, gait instability, generalized weakness, and impairment of motor control as demonstrated by the following impairment level findings: 1. Decreased strength to BLE major muscle groups 2. Impaired standing balance 3. Decreased functional activity tolerance and standing Impairments are contributing to the following functional limitations: 1. Inability to safely ambulate without assistive device 2. Increase completion time for mobility ADL performance 3. Increased fall risk 4. Decline in bed mobility/transfer skills. Patient is assessed as a moderate complexity based on the following: History: 69-year-old female with impairment level findings, functional limitations, and past medical history as indicated above Examination: Demonstrable impairment in strength, balance, and mobility level with underlying impairments and functional limitations as documented above Presentation: Evolving Decision Making: Moderate Goals: 1. Independent transfers with least restrictive device 2. Independent supine to and from sit 3. Independent ambulation with least restrictive device > 100 feet 4. Independent HEP Plan of Care/Treatment Plan: 1-2x/day, 7 days/week x 1 week. Plan of care has been reviewed with the BEHAVIOR SPECIALIST providing the service under Physical Therapy direction. Initiate Physical Therapy intervention for strengthening, bed mobility, transfers, gait, balance training, use of assistive device. DISCHARGE RECOMMENDATIONS: Short-term SNF versus PT TREATMENT CODE/TIME: 15528/1140?1200 Thank you for the opportunity to participate in the care of this patient. [facility]
[2024-10-26] MEDS: MAGNESIUM SULFATE 2 GM/50 ML BAG IV_INF (14:28)
--- NOTE | 2024-10-26 17:03 | PT.INTREAT ---
PT Notes Visit Reasons: Sepsis, Encephalopathy Inpatient Physical Therapy Treatment Note [facility] Date: 10/26/24 PRECAUTIONS:Standard, IV access RUE OBJECTIVE: Pt presented with IV infusing in RUE agreeable to participate Therapeutic Activities (94656g5): Direct one-on-one instruction in dynamic activities to improve functional performance. ? BED MOBILITY/TRANSFERS? Sit-supine: CGA? Sit-stand: SBA ? Stand-sit: SBA ? Provided skilled cues and instruction on performance and technique throughout. ? Facilitated safe and correct performance of level surface ambulation covering a distance of 200 feet x1 with 2 standing rest and then 60 feet x1 using use front wheeled walker with contact-guard assist and wheelchair follow for safety. Did not report of any increased pain. Denied headache, chest pain, and lightheadedness throughout activity. Minimal verbal cueing provided for AD management, directional changes, and posture. ? ASSESSMENT:? Pt with improvement in activity tolerance with FwW this session as compared to initial evaluation. Pt however is unable to use a FWW within her home d/t space limitations at this time. Next session will perform tasks without AD to assess her ability to return to her home without device PLAN: Cont as per PT POC. TREATMENT CODE/TIME: 5990-7735 DISCHARGE RECOMMENDATION: PT vs Short term SNF to progress with functional mobility without AD
[2024-10-26] MEDS: Doxepin 10 MG CAP 30 MG PO (21:13)
[2024-10-26] MEDS: Atorvastatin 40 MG TAB 80 MG PO (21:14)
[2024-10-27 07:21] VITALS: BP 130/53; PULSE 73; RESP 16; TEMP 36.3; O2SAT 96
[2024-10-27] MEDS: FLUoxetine 20 MG CAP 40 MG PO (08:38)
[2024-10-27] MEDS: Lactulose 20 GM/30 ML CUP 30 GM PO (08:39)
[2024-10-27] MEDS: Potassium Chloride 20 MEQ TABCR PO ×2 (08:39→12:13)
[2024-10-27] MEDS: Oxybutynin 5 MG TAB PO (08:39)
[2024-10-27] MEDS: Pantoprazole 40 MG TABCR PO (08:39)
[2024-10-27] MEDS: Magnesium Oxide 400 MG TAB PO (08:39)
[2024-10-27] MEDS: Torsemide 20 MG TAB 40 MG PO (08:39)
[2024-10-27] MEDS: rOPINIRole 1 MG TAB 2 MG PO (08:39)
[2024-10-27] MEDS: Nystatin POWDER 60 GM JAR TP (08:41)
[2024-10-27] MEDS: Normal Saline Flush 10 ML SYR IVP ×2 (08:44→09:54)
[2024-10-27] MEDS: Insulin Aspart 300 UNITS/3 ML PEN SC ×2 (08:48→12:12)
[2024-10-27 09:23] VITALS: BP 128/42; PULSE 72; RESP 16; TEMP 36.8; O2SAT 98
[2024-10-27] MEDS: CEFEPIME 2 GM in Normal Saline 100 ML IVPB (09:54)
--- NOTE | 2024-10-27 09:56 | PDOC.CMPRO ---
Date of service: 10/27/24 Time of Service: 09:56 Care Management Progress Note Discharge Potential Discharge Needs: PCP F/U Appt Anticipated Barriers to Discharge: None Identified Patient/Family Education Needs: Review discharge instructions, discuss Ask Me Three Transportation: Private vehicle Plan: PT recommends SNF for STR vs. home with New [facility] PT, depending on progress made during her hospital stay. Referrals are sent to [facility] and [facility]. If goals are met during her hospital stay pt would likely benefit from full [facility] services (RN, PT,OT,MARKETING INSTRUCTOR). Would need F/U with community providers and transport with family. CM will follow and continue to support discharge needs. SDOH(Care Management) Screening Will the Patient Participate in the Screening?: Declined to provide Do you worry about having a steady place to live?: choose not to answer
[2024-10-27] MEDS: DOXYCYCLINE 100 MG in Normal Saline 100 ML IVPB (09:58)
--- NOTE | 2024-10-27 11:28 | DSE_ITS ---
Date of service: 10/27/24 Time of Service: 11:31 DS: Diagnosis Discharge Diagnosis (1) Sepsis: Status: Acute (2) Encephalopathy: Status: Chronic (3) Hypomagnesemia: Status: Chronic (4) CHF (congestive heart failure): (5) Type 2 diabetes mellitus: Status: Chronic (6) Liver cirrhosis secondary to GALLAGHER: Status: Acute (7) JAYDEN (obstructive sleep apnea): Discharge Plan Disposition Patient Disposition: Home W/Home Health Services Condition: Improving Discharge Details Reason For Visit: Sepsis, Encephalopathy Admit Date/Time: 10/24/24 00:36 Admit Provider: Devin Carlson Attending Provider: Devin Carlson Primary Care Provider: Jefe Coffey Hospital Course Hospital Course: This is a 69-year-old female patient past medical history significant for diabetes mellitus type 2 liver cirrhosis secondary to Gallagher coronary artery disease heart failure, chronic kidney who presented to the emergency department for evaluation for tachypnea, fever, nausea and vomiting. Her workup in the emergency department was concerning for sepsis. Cultures were obtained there was evidence of possible pneumonia. She was started on broad-spectrum antibiotics and admitted to the hospitalist service for further management. Urine culture showed no growth blood cultures grew Klebsiella pneumoniae. She was weaned off oxygen was eating and drinking working with physical therapy and feeling much improved. Repeat blood cultures have been negative. She is being down stepped to be discharged home on levofloxacin 750 mg every other day due to renal dosing. She is being discharged to home with new home health services to include nursing PT OT and emergency medicine medical director. Discharge discussed with Dr. [facility] and New Rx's Prescriptions: New levofloxacin 750 mg tablet 750 mg PO Q48H Qty: 5 0RF Continued lactulose 10 gram/15 mL solution 30 g PO TID Ozempic 0.25 mg or 0.5 mg (2 mg/3 mL) pen injector 0.25 mg subcut QWEEK Rx Instructions: for 4 weeks oxycodone 5 mg tablet 5 mg PO Q6H PRN metformin 1,000 mg Tablet 1,000 mg PO BID ropinirole 2 mg Tablet 2 mg PO BID nystatin 100,000 unit/gram Powder 6,000,000 unit topical TID Qty: 60 0RF Rx Instructions: apply to reddened skin folds atorvastatin 40 mg Tablet 80 mg PO DAILY Qty: 30 0RF doxepin 10 mg capsule 30 mg PO QHS Patient Comments: 20 mg once a day pantoprazole 40 mg Tablet,Delayed Release (Dr/Ec) 40 mg PO BID polyethylene glycol 3350 17 gram Powder In Packet 17 g PO DAILY PRN PRN (Reason: Constipation) Qty: 0 0RF oxybutynin chloride 5 mg Tablet 5 mg PO BID Qty: 60 0RF torsemide 20 mg tablet 40 mg PO DAILY Patient Comments: TAKE TWO TABLETS BY MOUTH EVERY DAY fluoxetine 40 mg capsule 40 mg PO DAILY ondansetron HCl 4 mg tablet 4 mg PO DAILY PRN Patient Comments: TAKE ONE TABLET BY MOUTH EVERY DAY NEEDED FOR NAUSEA potassium chloride 20 mEq tablet extended release 20 meq PO TID Qty: 90 0RF Rx Instructions: with meals magnesium oxide 400 mg magnesium tablet 400 mg PO DAILY Qty: 30 0RF Discharge Instructions Instructions: Sepsis in adults Additional Instructions: You are being discharged home on levofloxacin 750 mg tablet to take once every other day. You have read received a dose today prior to discharge so you should start on October 29 and complete the course as directed even if you feel better. Drink at least 6 to 8 glasses of water daily to stay well-hydrated Continue the rest of your medications as previously directed Stand Alone Forms: Nursing Discharge Form Referrals: Jefe Coffey [Primary Care Provider] - (Please call the office and set up a hospital follow up within 10-14 days) Activity:: Activity as Tolerated Equipment/Supplies:: No Equipment Needed Diet:: As Tolerated Discharge Orders Discharge Orders: Discharge Order (Routine); Ordered 10/27/24 Ordered By: Karuna Segal DS: Summary Time Spent with Patient providing and/or coordinating discharge services: Greater than 30 minutes Status at Discharge Functional status at discharge: uses cane/walker Overall status at discharge: patient is progressing back to baseline Mental Status: mental status grossly normal Speech and Movement: speech and movement normal Mood: congruent mood Affect: normal affect Quality:SDOH Health Related Social Needs: Health related social needs problem related to primary support group(Z63.9) Health related social needs details non med compliant Exam Narrative Exam Narrative: Elderly female appearing older than stated age in no acute distress head is atraumatic eyes nonicteric noninjected facial features symmetrical oral mucosas moist no oral exudates neck is supple with full range of motion no meningeal signs respirations are even and unlabored her breath sounds are clear bilaterally abdomen is obese soft nontender positive bowel sounds she moves all extremities equally. Neurologic she is awake alert oriented no focal deficits psychiatric normal mood and affect Psych Mental Status: mental status grossly normal Speech and Movement: speech and movement normal Mood: congruent mood Affect: normal affect DS: Data Vitals/I&O Vitals and I&O: Vital Signs Temperature 36.8 C 10/27/24 09:23 Temperature Source Temporal Artery Scan 10/27/24 09:23 Pulse 72 10/27/24 09:23 Pulse Rhythm Regular 10/24/24 02:37 Pulse 109 H 10/24/24 01:10 Respiratory Rate 16 10/27/24 09:23 Respiratory Effort Normal, Non-Labored 10/24/24 02:37 Respiratory Depth Normal 10/24/24 02:37 Respiratory Pattern Normal 10/24/24 02:37 Blood Pressure 128/42 L 10/27/24 09:23 Blood Pressure Mean 61 10/24/24 01:11 Blood Pressure Position Supine 10/24/24 01:11 Pulse Oximetry 98 10/27/24 09:23 Oxygen Delivery Method Room Air 10/27/24 09:23 Oxygen Flow Rate 0 10/27/24 09:23 Fraction of Inspired Oxygen (FIO2) 21 10/26/24 22:35 Pain Level 0 10/27/24 09:23 Comment RN Notified 10/26/24 03:02 Intake & Output 10/26/24 10/26/24 10/27/24 11:59 23:59 11:59 Intake Total 480 / 1100 620 / 1100 560 / 560 Output Total 2300 / 3650 1350 / 3650 1000 / 1000 Balance -1820 / -2550 -730 / -2550 -440 / -440 Weight 99.2 kg 96.1 kg Intake: IV 300 / 560 260 / 560 200 / 200 Oral 180 / 540 360 / 540 360 / 360 Output: Urine 2300 / 3650 1350 / 3650 1000 / 1000 Other: Urine Color Yellow Yellow Yellow Urine Appearance Clear Clear Clear Urine Odor None None Comment removed at 1115am today pt requested to use urine pad that connects to suction because she is tired of getting up and going to the bathroom. Education regarding the pad purewicks versus getting up to bathroom, pt declined, purewick pad placed. from overnight Stool Size Small Moderate Stool Characteristics Liquid Soft Data Completed and Pending Labs on day of discharge: Preliminary micro results at discharge 10/26/24 06:35 Blood Culture - Preliminary Blood NO GROWTH 24 HOURS 10/26/24 06:25 Blood Culture - Preliminary Blood NO GROWTH 24 HOURS PFSH All Active Problems (Updated 10/24/24 @ 10:03 by Devin Carlson) Encephalopathy (Chronic) Presumed secondary to chronic liver disease. Chronically elevated ammonia level. On lactulose. Hypomagnesemia (Chronic) 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 (Acute) Medical History Hypovolemia Hyperammonemia Encephalopathy Presumed secondary to chronic liver disease. Chronically elevated ammonia level. On lactulose. 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 Left clavicle Excess skin of eyelid Pituitary cyst Hypersomnia GAVE (gastric antral vascular ectasia) JAYDEN (obstructive sleep apnea) Acquired arteriovenous malformation Atypical angina Biliary dyskinesia Lung nodule Submucosal neoplasm of stomach Anemia Dermoid cyst History of peptic ulcer disease Osteoarthritis Pancreatitis Hypertensive disorder Hepatic encephalopathy Edema Atrophy of vagina Atrophic vaginitis Actinic keratosis Pituitary adenoma Restless legs Neoplasm of parotid gland Lumbar spondylosis Lesion of esophagus Dyslipidemia Depressive disorder Crohn's disease Chronic low back pain Anxiety Anemia Cirrhosis GALLAGHER (nonalcoholic steatohepatitis) CHF (congestive heart failure) Anasarca Surgical History History of oophorectomy, unilateral History of rotator cuff surgery bilateral History of total knee arthroplasty bilateral History of sleeve gastrectomy History of hysterectomy Family History Brother Cancer Lung Alcohol use disorder 2 older brothers Social History Smoking/Tobacco Use Status: Never Smoking risk assessment performed?: Yes Alcohol Intake: never Drug use: Never Substance use type: does not use Housing: house Current gender identity: female Do you feel safe at home: Yes Do you feel safe in your relationship?: Yes Additional Social history: Lives with Arslan, and son in [place]. Moved from [place] in 2019. Has a dog and 8 pet birds. Time Spent with Patient Time Spent with Patient: 45-69 minutes Time was spent: preparing to see the patient(eg.review tests), obtaining and/or reviewing separately otained hiistory, ordering medications,tests, procedures, indepentently interpreting results, counseling the patient and care coordination
[2024-10-27 11:37] VITALS: BP 117/52; PULSE 74; RESP 18; TEMP 37.1; O2SAT 96
--- NOTE | 2024-10-27 12:14 | PDOC.HHF2F_ITS ---
Home Health Referral Home Health Orders Clinical synopsis of why skilled professionals are needed: frail, frequent hospitalizations, chronic illnesses Medical diagnosis necessitation home health referral: bacteremia, sepsis Registered Nurse: Check all that apply Instruct on new or changed medication(s)/assess compliance: Ordered Assess for exacerbation of medical condition, instruct patient/caregivers on signs and symptoms to report for early detection: Ordered Physical Therapist: Check all that apply Increase strength & endurance for safe mobility at home: Ordered To design/establish home maintenance program: Ordered Fall reduction therapy program for patient with history of frequent falls: Ordered Home safety evaluation and teaching/gait training including stair management (if applicable): Ordered Occupational Therapist: Evaluate and treat for patient unable to perform ADL/IADL/self-care: Ordered Electrotyper Apprentice: Assist with community resources: Ordered Assist with terminal system operator care planning: Ordered Home Bound Status Requires the aid of supportive device (check all that apply): Walker Encounter Date and Reason: I certify that a FTF encounter for this patient was performed on October 27, 2024 and that such encounter was related to the primary reason the patient requires home health services. The encounter was conducted in the following manner: * By me as the certifying physician, PRINTER'S DEVIL, PA or * By an inpatient physician, PRINTER'S DEVIL or PA during an inpatient stay who communicated findings to me, Certification And Authentication I certify that I composed the above information based on my clinical judgment relating to this patient's medical condition and, if applicable, clinical findings communicated to me by the NPP or inpatient physician who performed the FTF encounter. Name of Provider that will be monitoring home health services: Jefe Coffey
--- NOTE | 2024-10-27 12:29 | PT.INTREAT ---
PT Notes Visit Reasons: Sepsis, Encephalopathy Inpatient Physical Therapy Treatment Note [facility] Date: 10/27/24 PRECAUTIONS:Standard, IV access RUE OBJECTIVE: Pt presented with IV infusing in RUE agreeable to participate. Pt reports her son was opening/ clearing up space within her home so she can get around with her FWW. Therapeutic Activities (80672): Direct one-on-one instruction in dynamic activities to improve functional performance. ? BED MOBILITY/TRANSFERS? Sit-supine: independent? Sit-stand: independent? Stand-sit: independent? Provided skilled cues and instruction on performance and technique throughout. ? Facilitated safe and correct performance of level surface ambulation covering a distance of 200 feet x1 with NO standing rest and then 60 feet x1 using use front wheeled walker with SBA . Did not report of any increased pain. Denied headache, chest pain, and lightheadedness throughout activity. Minimal verbal cueing provided for AD management, directional changes, and posture. ? ASSESSMENT:? Pt demonstrates improved transfers and ambulation . She did not require wheelchair follow this session. If son is able to clear space within home for her FWW then she would be appropriate for discharge to home with HHPT when medically appropriate. PLAN: Cont as per PT POC.until medically appropriate for discharge TREATMENT CODE/TIME: 61681/ [id number] DISCHARGE RECOMMENDATION:HH PT
[2024-10-27] MEDS: levoFLOXacin 500 MG, levoFLOXacin 250 MG 750 MG PO (12:35)
--- NOTE | 2024-10-27 13:35 | CMDISCH_ITS ---
Date of service: 10/27/24 Time of Service: 13:35 LACE Index Scoring Tool Questions: Length of Stay (in days): 3 Was the patient admitted via the E.D.?: Yes Comorbidities: Diabetes w/o Complication, Congestive Heart Failure and Liver or Renal Disease E.D. Visits: 7 Answers: Total Score: 15 Risk of Readmission: High Risk Care Management Discharge Plan Reason for Hospitalization: Sepsis Discharge Plan: Re will be discharged home with new home health orders for RN, PT, OT and MANAGER PROGRAM MANAGEMENT. She will follow up with her PCP and plan of care and transport with her son. Patient/Family Education Needs: Review discharge instructions, limitations, follow up plan and discuss Ask Me Three Services Needed at Discharge: Home Health Care Services SDOH Health Related Social Needs: Health related social needs problem related to primary support group(Z63.9) Health related social needs details non med compliant
== END 2024-10-27 14:53 | disposition home health service (06) | DRG 871 ==
LOC: ER 10-24 00:49 → MS 10-24 01:44
PROVIDERS: Nurse Practitioner Acute Care; Admitting Provider Family Medicine; Emergency Provider Emergency Medicine Emergency Medical Services; PCP Family Medicine; Visit Provider Family Medicine
DX: A41.59 Other Gram-negative sepsis (principal); J18.9 Pneumonia, unspecified organism; N17.9 Acute kidney failure, unspecified; Z68.41 Body mass index [BMI] 40.0-44.9, adult; I50.32 Chronic diastolic (congestive) heart failure; K76.82 Hepatic encephalopathy; E83.42 Hypomagnesemia; K75.81 Nonalcoholic steatohepatitis (NASH); E11.9 Type 2 diabetes mellitus without complications; K74.69 Other cirrhosis of liver; Z79.85 Long-term (current) use of injectable non-insulin antidiabetic drugs; Z79.84 Long term (current) use of oral hypoglycemic drugs; K31.819 Angiodysplasia of stomach and duodenum without bleeding; G47.33 Obstructive sleep apnea (adult) (pediatric); R91.1 Solitary pulmonary nodule; E86.0 Dehydration; Z98.84 Bariatric surgery status; Z96.653 Presence of artificial knee joint, bilateral; E66.9 Obesity, unspecified; I25.10 Atherosclerotic heart disease of native coronary artery without angina pectoris; N18.9 Chronic kidney disease, unspecified; Z87.440 Personal history of urinary (tract) infections; R35.0 Frequency of micturition; R39.15 Urgency of urination
CPT/HCPCS: 00123; 36415; 80048; 80053; 82805; 84145; 85027; 86850; 86900; 86901; 87040; 87077; 87637; 93005; 96361; 96365; 96367; 96368; 96375; 97162; 97530; 99285; J1650; 71045; 81003; 81015; 83605; 83615; 83735; 84484; 85025; 86140; 87086; 87186; 93010; 99223; 99231; 99232; 99239; J0131; J0692; J1815; J2405; J3475

== ENCOUNTER 2024-11-16 16:24 | Emergency (ER) | payer MEDICARE, SELFPAY ==
[2024-11-16] VITALS (30 sets, daily range): BP systolic 134–158; BP diastolic 29–63; PULSE 72–89; RESP 12–30; TEMP 36.7; O2SAT 93–98
--- NOTE | 2024-11-16 16:15 | RT.EKG_ITS ---
APPROVED REPORT Exam: Resting ECG Reason for Exam: SOB Patient Location: E HR:80 bpm ECG Measurements Heart Rate 80 AXIS AK 170 P 36 QRSd 87 QRS 25 QT 396 T 46 QTc 458 Conclusion Sinus rhythm...normal P axis, V-rate 60- [address] segment or T wave abnormalities to suggest occlusive MD
--- NOTE | 2024-11-16 17:15 | DI.RAD_ITS ---
Exam(s) XR CHEST 2V PA LATERAL EXAM: XR CHEST 2V PA LATERAL CLINICAL HISTORY: shortness of breath TECHNIQUE: 2D digital imaging was performed. Two views. COMPARISON: CR,XR XR PORTABLE CHEST AP from 10/23/2024 FINDINGS: HEART: Mildly enlarged. Aorta: Not dilated. PULMONARY VASCULATURE: Mildly prominent. MEDIASTINUM: Unremarkable. LUNGS: Mildly increased interstitial markings. Improved from prior. No focal area of consolidation. PLEURAL SPACE: No pleural effusion or pneumothorax. BONE:Unremarkable for age. SOFT TISSUES: Unremarkable. IMPRESSION: Mild CHF. DATA REPOSITORY: RADIATION DOSE DELIVERED:
--- NOTE | 2024-11-16 17:15 | DI.CT_ITS ---
Exam(s) CT ABDOMEN PELVIS W EXAM: CT ABDOMEN PELVIS W CLINICAL HISTORY: left hip and lower quadrant pain. TECHNIQUE: Imaging Protocol: Axial computed tomography images with coronal and sagittal reformatted images were created and reviewed CONTRAST MATERIAL: Intravenous: Omnipaque 350 Contrast volume:100 ml Oral: no COMPARISON: CT CT ABDOMEN PELVIS W from 08/16/2024 FINDINGS: ABDOMEN and PELVIS: Lung Bases: No acute findings. Liver: Cirrhotic appearing liver. No suspicious mass. Gallbladder and biliary tract: Status post cholecystectomy. No biliary dilation. Pancreas: Normal density. No abnormal calcifications or inflammatory process. No evidence of mass. Spleen: Enlarged. Adjacent varices. Kidneys: Normal size, contour and axis. No radiodense stones. No obstructive uropathy. No suspicious masses seen. Adrenal glands: No masses seen. Vasculature: Abdominal aorta non-dilated. Multiple sites of varices, including Katlyn rectal varices. Soft tissues: Body wall edema, worsening from prior.. Bladder: No gross wall thickening. No calculi.No focal mass. Bowel: Gastric bypass surgery. No obstruction. Diffuse wall thickening of the ascending and transv erse colon consistent with colitis. Peritoneal cavity: Mild ascites is seen around the liver and spleen as well as paracolic gutters. Th is has increased from prior.. No focal collection. Mesenteric edema, worsened from prior.. No free air. Bones: Degenerative changes in the spine. No focal abnormality seen involving the hips. Reproductive organs: Status post hysterectomy. Stable enlargement of the left ovary. Lymph nodes: No pathologically enlarged lymph nodes. IMPRESSION:: Wall thickening of the ascending and transverse colon could indicate colitis. Cirrhotic liver. Splenomegaly. Varices. Small amount of ascites and anasarca. RADIATION DOSE DELIVERED: 1,056.63mGy.cm Total DLP DATA REPOSITORY: All CT scans at this facility are submitted to the National Radiology Data Registry (NRDR) Dose Index Registry (DIR) with the [employer] ([employer]). RADIATION OPTIMIZATION: All CT scans at this facility use at least one of these dose optimization te chniques: automated exposure control; mA and/or kV adjustment per patient size (includes targeted exa ms where dose is matched to clinical indication); or iterative reconstruction.
[2024-11-16 17:41] LABS: Abs Immature Grans 0.01 10^3/uL (0.0-0.06); Absolute Basophil Count 0.04 10^3/uL (0.0-0.2); Absolute Eosinophil Count 0.23 10^3/uL (0.0-0.7); Absolute Lymphocyte Count 0.59 10^3/uL (1.2-3.4); Absolute Monocyte Count 0.34 10^3/uL (0.1-0.8); Absolute Neutrophil Count 2.21 10^3/uL (1.2-6.7); Basophils % 1.2 %; Eosinophils % 6.7 %; HCT 27.4 % (36.0-46.0); HGB 8.4 g/dL (11.2-15.7); Immature Grans % 0.3 %; Lymphocytes % 17.3 %; MCH 28.2 pg (27.0-33.0); MCHC 30.7 % (32.0-36.0); MCV 92 fL (80-95); MPV 10.7 fL (8.0-11.0); Monocytes % 9.9 %; Neutrophils % 64.6 %; RBC 2.98 10^6/uL (3.93-5.22); RDW 14.6 % (11.7-14.6); RDW-SD 49.2 fL; WBC 3.42 10^3/uL (4.4-10.8)
[2024-11-16 17:45] LABS: ESR 10 mm/hr (0-30)
[2024-11-16 17:50] LABS: Platelet Count 91 10^3/uL (130-400)
[2024-11-16 17:51] LABS: INR 1.1 (0.9-1.1); Prothrombin Time 10.8 sec (9.1-11.1)
[2024-11-16 18:06] LABS: ALT 25 U/L (14-59); AST 34 U/L (15-37); Albumin 2.3 g/dL (3.4-5.0); Alkaline Phosphatase 326 U/L (46-116); Anion Gap 4.6 mmol/L (3-11); BUN 13 mg/dL (7-18); Bilirubin, Total 0.73 mg/dL (0.2-1.0); CO2 29.4 mmol/L (21.0-32.0); CREATININE 0.8 mg/dL (0.55-1.02); Calcium 8.1 mg/dL (8.5-10.1); Chloride 106 mmol/L (98-107); Estimated GFR 79.71 (mL/min/1.73m2); Glucose 373 mg/dL (74-106); Lipase 35 U/L (<78); NT-proBNP 45 pg/mL (<300); Potassium 4.3 mmol/L (3.5-5.1); Sodium 140 mmol/L (136-145); Total Protein 5.8 g/dL (6.4-8.2)
[2024-11-16 18:12] LABS: C-Reactive Protein < 0.50 mg/dL (<or=0.5)
[2024-11-16] MEDS: Normal Saline - Diluent 50 ML VIAL IJ (19:16)
[2024-11-16] MEDS: Omnipaque 350 MG/ML 100 ML BTL IJ (19:17)
[2024-11-16] MEDS: Normal Saline Flush 10 ML SYR IVP (19:18)
--- NOTE | 2024-11-16 19:46 | DI.VRAD_ITS ---
PROCEDURE INFORMATION: Exam: CT Abdomen And Pelvis With Contrast Exam date and time: 11/16/2024 7:19 PM Age: 69 years old Clinical indication: Abdominal pain; Localized; Prior surgery; Surgery date: 6+ months; Surgery type: Hysterectomy, gastric sleeve; Patient HX: Left hip and lower quadrant pain TECHNIQUE: Imaging protocol: Computed tomography of the abdomen and pelvis with contrast. Radiation optimization: All CT scans at this facility use at least one of these dose optimization techniques: automated exposure control; mA and/or kV adjustment per patient size (includes targeted exams where dose is matched to clinical indication); or iterative reconstruction. Contrast material: OMNIPAQUE 350; Contrast volume: 100 ml; Contrast route: INTRAVENOUS (IV); COMPARISON: CT ABDOMEN PELVIS W 08/16/2024 3:57 PM FINDINGS: Liver: Liver is small and nodular in contour, compatible with chronic cirrhosis. No focal hepatic abnormality. Gallbladder and biliary ducts: Gallbladder is surgically absent. Mild biliary ductal dilation Pancreas: Normal. No ductal dilation. Spleen: Spleen is enlarged, measuring 15.5 cm in length. No focal splenic abnormality. Adrenal glands: Normal. No mass. Kidneys and ureters: Normal. No hydronephrosis. Stomach and bowel: There has been interval development of diffuse wall thickening and mucosal enhancement of the ascending and transverse portions of the colon. Distal colon appears unremarkable. No evidence of bowel obstruction. Appendix: No evidence of appendicitis. Intraperitoneal space: Minimal scattered free fluid throughout the abdomen and pelvis. No free air. Multiple scattered varicosities throughout the abdomen and pelvis. Moderate diffuse mesenteric edema. Vasculature: Mild atherosclerotic calcification throughout the aorta and iliac arteries. No evidence of aneurysm or dissection. Lymph nodes: Unremarkable. No enlarged lymph nodes. Urinary bladder: Unremarkable as visualized. Reproductive: Uterus is surgically absent. No adnexal abnormality. Bones/joints: Moderate degenerative changes throughout the lumbar spine and bony pelvis. No significant vertebral body compression. No acute fracture. Multilevel facet arthropathy with associated grade 1 anterolisthesis of L3. Soft tissues: Moderate diffuse body wall edema. No loculated fluid collections. IMPRESSION: 1. Interval development of diffuse wall thickening and mucosal enhancement of the ascending and transverse colon concerning for acute colitis. Alternatively, bland colon wall edema secondary to anasarca would be of consideration. 2. Persistent changes of chronic cirrhosis and portal hypertension including findings of anasarca and interval development of minimal ascites. Dictated and Authenticated by: Carlos Rubio MD. Ordering:MALGORZATA Rubin MD
--- NOTE | 2024-11-16 19:52 | DI.VRAD_ITS ---
PROCEDURE INFORMATION: Exam: XR Chest Exam date and time: 11/16/2024 7:30 PM Age: 69 years old Clinical indication: Other: SOB TECHNIQUE: Imaging protocol: Radiologic exam of the chest. Views: 2 views. COMPARISON: CR XR PORTABLE CHEST AP 10/23/2024 11:26 PM FINDINGS: Lungs: Mild diffuse pulmonary vascular prominence, improved from the prior study Pleural spaces: Unremarkable. No pleural effusion. No pneumothorax. Heart/Mediastinum: Cardiac silhouette is top-normal to mildly enlarged in size. Bones/joints: Moderate degenerative changes throughout the thoracic spine. No acute fracture. IMPRESSION: Borderline congestive changes, improved from previous. No significant infiltrate. Dictated and Authenticated by: Carlos Rubio MD. Ordering:MALGORZATA Rubin MD
--- NOTE | 2024-11-16 20:20 | ED.GENADUL_ITS ---
Discharge Plan Disposition Patient Disposition: Home Condition: Stable Discharge Details Clinical Impression: Acute pain of left hip, Acute hyperglycemia, Cirrhosis Primary Care Provider: Jefe Coffey ED Provider: Caryn Anthony Home Meds and New Rx's Prescriptions: Continued lactulose 10 gram/15 mL solution 30 g PO TID Ozempic 0.25 mg or 0.5 mg (2 mg/3 mL) pen injector 0.25 mg subcut QWEEK Rx Instructions: for 4 weeks metformin 1,000 mg Tablet 1,000 mg PO BID ropinirole 2 mg Tablet 2 mg PO BID nystatin 100,000 unit/gram Powder 6,000,000 unit topical TID Qty: 60 0RF Rx Instructions: apply to reddened skin folds atorvastatin 40 mg Tablet 80 mg PO DAILY Qty: 30 0RF doxepin 10 mg capsule 30 mg PO QHS Patient Comments: 20 mg once a day pantoprazole 40 mg Tablet,Delayed Release (Dr/Ec) 40 mg PO BID polyethylene glycol 3350 17 gram Powder In Packet 17 g PO DAILY PRN PRN (Reason: Constipation) Qty: 0 0RF oxybutynin chloride 5 mg Tablet 5 mg PO BID Qty: 60 0RF torsemide 20 mg tablet 40 mg PO DAILY Patient Comments: TAKE TWO TABLETS BY MOUTH EVERY DAY fluoxetine 40 mg capsule 40 mg PO DAILY ondansetron HCl 4 mg tablet 4 mg PO DAILY PRN Patient Comments: TAKE ONE TABLET BY MOUTH EVERY DAY NEEDED FOR NAUSEA potassium chloride 20 mEq tablet extended release 20 meq PO TID Qty: 90 0RF Rx Instructions: with meals magnesium oxide 400 mg magnesium tablet 400 mg PO DAILY Qty: 30 0RF Discharge Instructions Instructions: Blood Glucose Monitoring, Carb counting for adults with diabetes, Diet for Cirrhosis, Hip Pain ED Additional Instructions: Take your oxycodone sparingly as needed for your pain, continue to ambulate with your walker Please call your doctor tomorrow to schedule an appointment your blood sugar is high and you either need to resume Ozempic/Wegovy Insulin is another option, please talk to your doctor about this I will place you on the referral list for follow-up, however it is important that you call tomorrow to be seen this week I will give you a referral for physical therapy and you may need a referral to orthopedics at their discretion, there is no evidence of fracture on your hip CT today Please return earlier should you have new or worsening complaints The remainder of your labs are unchanged from prior Please resume your torsemide this evening Stand Alone Forms: Physical Therapy Referral HPI General Date/Time Provider Initiated Documentation: 11/16/24 16:42 . HPI Narrative: This 69-year-old female with history of psoriasis, hyperglycemia bacteremia, CHF, renal failure, ACS patient reports of left hip pain which is worsening since her discharge from this hospital with CHF several weeks ago. Patient denies any chest pain, fever or chills. She has had some shortness of breath intermittently but has not taken her torsemide for the past 2 days. She states that she does not take her torsemide when she has to go out and about she is concerned regarding urination. She denies any trauma to her left hip. PT saw her today and wanted her to image her left hip to be sure she did not have a fracture. She does not endorse any trauma. She denies any back pain or shortness of breath. Denies any abdominal pain. Related Data Home Medications ?Medication ?Instructions ?Recorded ?Confirmed metformin 1,000 mg tablet 1,000 mg PO BID 11/09/22 11/16/24 ropinirole 2 mg tablet 2 mg PO BID 11/09/22 11/16/24 pantoprazole 40 mg tablet,delayed 40 mg PO BID 12/15/22 11/16/24 release nystatin 100,000 unit/gram topical 6,000,000 unit topical TID #60 02/05/23 11/16/24 powder grams lactulose 10 gram/15 mL oral 30 g PO TID 06/26/23 11/16/24 solution polyethylene glycol 3350 17 gram 17 g PO DAILY PRN PRN Constipation 07/01/23 11/16/24 oral powder packet #0 ea oxybutynin chloride 5 mg tablet 5 mg PO BID #60 tabs 11/13/23 11/16/24 semaglutide 0.25 mg or 0.5 mg (2 0.25 mg subcut QWEEK 12/12/23 11/16/24 mg/3 mL) subcutaneous pen injector (Ozempic) torsemide 20 mg tablet 40 mg PO DAILY 01/23/24 11/16/24 fluoxetine 40 mg capsule 40 mg PO DAILY 01/24/24 11/16/24 ondansetron HCl 4 mg tablet 4 mg PO DAILY PRN 04/16/24 11/16/24 magnesium oxide 400 mg PO DAILY #30 tabs 06/02/24 11/16/24 potassium chloride 20 mEq 20 meq PO TID #90 tabs 06/02/24 11/16/24 tablet,extended release atorvastatin 40 mg tablet 80 mg (2 x 40 mg) PO DAILY #30 tabs 08/20/24 11/16/24 doxepin 10 mg capsule 30 mg PO QHS 10/24/24 11/16/24 Previous Rx's ?Medication ?Instructions ?Recorded nystatin 100,000 unit/gram topical 6,000,000 unit topical TID #60 02/05/23 powder grams polyethylene glycol 3350 17 gram 17 g PO DAILY PRN PRN Constipation 07/01/23 oral powder packet #0 ea oxybutynin chloride 5 mg tablet 5 mg PO BID #60 tabs 11/13/23 magnesium oxide 400 mg PO DAILY #30 tabs 06/02/24 potassium chloride 20 mEq 20 meq PO TID #90 tabs 06/02/24 tablet,extended release atorvastatin 40 mg tablet 80 mg (2 x 40 mg) PO DAILY #30 tabs 08/20/24 Allergies Allergy/AdvReac Type Severity Reaction Status Date / Time Penicillins Allergy Severe Swelling/Ed Verified 11/16/24 16:38 sophie tramadol Allergy Severe Swelling/Ed Verified 11/16/24 16:38 sophie apricot Allergy Intermediate Hives Verified 11/16/24 16:38 ferrous sulfate Allergy Unknown Other (See Verified 11/16/24 16:38 Comment) raspberry Allergy Other (See Verified 11/16/24 16:38 Comment) vancomycin AdvReac Intermediate Other (See Verified 11/16/24 16:38 Comment) General Stated Complaint: [facility] CHELA: 3 Exam Narrative Exam Narrative: 69-year-old female in no acute distress, alert and oriented, reproducible left hip pain without any swelling or rashes noted, mild diffuse abdominal tenderness without rebound or guarding, alert and oriented x 4, no CVA tenderness, distal pulses intact to bilateral lower extremities Course Vital Signs Vital signs: Vital Signs Temperature 36.7 C 11/16/24 16:28 Pulse 88 11/16/24 16:28 Respiratory Rate 18 11/16/24 16:28 Blood Pressure 152/63 H 11/16/24 16:28 Pulse Oximetry 96 11/16/24 16:28 Temperature 36.7 C 11/16/24 16:28 Temperature Source Oral 11/16/24 16:28 Pulse 81 11/16/24 20:01 Pulse 85 11/16/24 20:10 Respiratory Rate 16 11/16/24 20:10 Respiratory Effort Normal, Non-Labored 11/16/24 19:46 Respiratory Depth Normal 11/16/24 19:46 Respiratory Pattern Normal 11/16/24 19:46 Blood Pressure 149/41 H 11/16/24 20:01 Blood Pressure Mean 78 11/16/24 20:01 Pulse Oximetry 97 11/16/24 20:10 Oxygen Delivery Method Room Air 11/16/24 16:28 Oxygen Flow Rate 0 11/16/24 16:28 Pain Level 9 11/16/24 16:28 Lab/Test Results Lab/Test Results: Laboratory Tests Range/Units 11/16/24 17:15 WBC (4.4-10.8) 10^3/uL 3.42 L RBC (3.93-5.22) 10^6/uL 2.98 L Hgb (11.2-15.7) g/dL 8.4 L Hct (36.0-46.0) % 27.4 L MCV (80-95) fL 92 MCH (27.0-33.0) pg 28.2 MCHC (32.0-36.0) % 30.7 L RDW (11.7-14.6) % 14.6 Plt Count (130-400) 10^3/uL 91 L MPV (8.0-11.0) fL 10.7 Immature Gran % % 0.3 Neutrophils % % 64.6 Lymphocytes % % 17.3 Monocytes % % 9.9 Eosinophils % % 6.7 Basophils % % 1.2 Nucleated RBC % (0.0-0.3) % 0.0 Absolute Neutrophils (1.2-6.7) 10^3/uL 2.21 Absolute Lymphocytes (1.2-3.4) 10^3/uL 0.59 L Absolute Monocytes (0.1-0.8) 10^3/uL 0.34 Absolute Eosinophils (0.0-0.7) 10^3/uL 0.23 Absolute Basophils (0.0-0.2) 10^3/uL 0.04 ESR (0-30) mm/hr 10 PT (9.1-11.1) sec 10.8 INR (0.9-1.1) 1.1 Sodium (136-145) mmol/L 140 Potassium (3.5-5.1) mmol/L 4.3 Chloride (98-107) mmol/L 106 Carbon Dioxide (21.0-32.0) mmol/L 29.4 Anion Gap (3-11) mmol/L 4.6 BUN (7-18) mg/dL 13 Creatinine (0.55-1.02) mg/dL 0.8 Est GFR (CKD-EPI 2020) (mL/min/1.73m2) 79.71 Glucose (74-106) mg/dL 373 H Calcium (8.5-10.1) mg/dL 8.1 L Total Bilirubin (0.2-1.0) mg/dL 0.73 AST (15-37) U/L 34 ALT (14-59) U/L 25 Alkaline Phosphatase (46-116) U/L 326 H C-Reactive Protein (<or=0.5) mg/dL < 0.50 NT-Pro-B Natriuret Pep (<300) pg/mL 45 Total Protein (6.4-8.2) g/dL 5.8 L Albumin (3.4-5.0) g/dL 2.3 L Lipase (<78) U/L 35 Medical Decision Making 69-year-old female presenting in no acute distress with left hip pain and some intermittent shortness of breath. I did order chest x-ray that does not show evidence of acute abnormality, BNP which is baseline for patient at 45 which is reassuring, she has no significant peripheral edema admitting her exam is relatively benign, she is not hypoxic she is speaking complete sentences I have low suspicion clinically for PE patient without hypoxia or tachypnea. Blood pressure is stable for patient. CT abdomen and pelvis was ordered with possible colitis, however this is unchanged from her prior in addition to anasarca which is also unchanged for patient. Patient is ambulatory steady gait with walker. She has oxycodone at home which she can take as needed. I will place a PT assessment for patient in the outpatient setting for her left hip pain she does have hyperglycemia at 367, she does have a known history of diabetes but stopped taking her Ozempic secondary to lack of insurance coverage. She is encouraged to either start on insulin or discussed with her doctor regarding another GLP. She is placed on list for follow-up. There is no evidence of diabetic ketoacidosis at this time. Patient is stable for discharge home, return precau tions reviewed and patient expressed understanding. Quality:SDOH Health Related Social Needs: Health related social needs details non med compliant PFS All Active Problems (Updated 11/16/24 @ 20:10 by JAHAIRA Denney) Cirrhosis (Acute) Acute hyperglycemia (Acute) Acute pain of left hip (Acute) Encephalopathy (Chronic) Presumed secondary to chronic liver disease. Chronically elevated ammonia level. On lactulose. Hypomagnesemia (Chronic) Sepsis (Acute) Bacteremia due to Klebsiella pneumoniae (Acute) CHF exacerbation (Acute) Acute renal failure (Acute) Acute coronary syndrome with high troponin (Acute) Sepsis due to Gram-negative organism with septic shock (Acute) Type 2 diabetes mellitus (Chronic) Liver cirrhosis secondary to SALCIDO (Acute) Medical History Hypovolemia Hyperammonemia Encephalopathy Presumed secondary to chronic liver disease. Chronically elevated ammonia level. On lactulose. 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 Left clavicle Excess skin of eyelid Pituitary cyst Hypersomnia GAVE (gastric antral vascular ectasia) JAYDEN (obstructive sleep apnea) Acquired arteriovenous malformation Atypical angina Biliary dyskinesia Lung nodule Submucosal neoplasm of stomach Anemia Dermoid cyst History of peptic ulcer disease Osteoarthritis Pancreatitis Hypertensive disorder Hepatic encephalopathy Edema Atrophy of vagina Atrophic vaginitis Actinic keratosis Pituitary adenoma Restless legs Neoplasm of parotid gland Lumbar spondylosis Lesion of esophagus Dyslipidemia Depressive disorder Crohn's disease Chronic low back pain Anxiety Anemia Cirrhosis SALCIDO (nonalcoholic steatohepatitis) CHF (congestive heart failure) Anasarca Surgical History History of oophorectomy, unilateral History of rotator cuff surgery bilateral History of total knee arthroplasty bilateral History of sleeve gastrectomy History of hysterectomy Family History Brother Cancer Lung Alcohol use disorder 2 older brothers Social History Smoking/Tobacco Use Status: Never Smoking risk assessment performed?: Yes Alcohol Intake: never Drug use: Never Substance use type: does not use Housing: house Current gender identity: female Do you feel safe at home: Yes Do you feel safe in your relationship?: Yes Additional Social history: Lives with Arslan, and son in [place]. Moved from [place] in 2019. Has a dog and 8 pet birds.
== END 2024-11-16 20:20 | disposition home or self-care (01) ==
PROVIDERS: Emergency Provider Physician Assistant; PCP Family Medicine
DX: M25.551 Pain in right hip (principal); E11.65 Type 2 diabetes mellitus with hyperglycemia; K74.60 Unspecified cirrhosis of liver; I50.9 Heart failure, unspecified; Z98.84 Bariatric surgery status; Z79.84 Long term (current) use of oral hypoglycemic drugs; Z79.85 Long-term (current) use of injectable non-insulin antidiabetic drugs
CPT/HCPCS: 36415; 80053; 83690; 85652; 93005; 99285; 71046; 74177; 83880; 85025; 85610; 86140; 93010; 99284; J3490

== ENCOUNTER 2025-01-14 19:09 | Emergency (ER) | payer MEDICARE, SELFPAY ==
[2025-01-14 19:21] VITALS: BP 173/49; PULSE 102; RESP 20; TEMP 36.7; O2SAT 99
--- NOTE | 2025-01-14 19:28 | ED.GENADUL_ITS ---
Discharge Plan Disposition Patient Disposition: Home Condition: Stable Discharge Details Clinical Impression: Knee pain, left Primary Care Provider: Jefe Coffey ED Provider: Neris Liriano Home Meds and New Rx's Prescriptions: Continued modafinil 200 mg tablet 200 mg PO DAILY oxycodone 5 mg tablet 5 mg PO Q6H PRN lactulose 10 gram/15 mL solution 30 g PO TID Ozempic 0.25 mg or 0.5 mg (2 mg/3 mL) pen injector 0.25 mg subcut QWEEK Rx Instructions: for 4 weeks metformin 1,000 mg Tablet 1,000 mg PO BID ropinirole 2 mg Tablet 2 mg PO BID nystatin 100,000 unit/gram Powder 6,000,000 unit topical TID Qty: 60 0RF Rx Instructions: apply to reddened skin folds atorvastatin 40 mg Tablet 80 mg PO DAILY Qty: 30 0RF doxepin 10 mg capsule 30 mg PO QHS Patient Comments: 20 mg once a day pantoprazole 40 mg Tablet,Delayed Release (Dr/Ec) 40 mg PO BID polyethylene glycol 3350 17 gram Powder In Packet 17 g PO DAILY PRN PRN (Reason: Constipation) Qty: 0 0RF oxybutynin chloride 5 mg Tablet 5 mg PO BID Qty: 60 0RF torsemide 20 mg tablet 40 mg PO DAILY Patient Comments: TAKE TWO TABLETS BY MOUTH EVERY DAY fluoxetine 40 mg capsule 40 mg PO DAILY ondansetron HCl 4 mg tablet 4 mg PO DAILY PRN Patient Comments: TAKE ONE TABLET BY MOUTH EVERY DAY NEEDED FOR NAUSEA potassium chloride 20 mEq tablet extended release 20 meq PO TID Qty: 90 0RF Rx Instructions: with meals magnesium oxide 400 mg magnesium tablet 400 mg PO DAILY Qty: 30 0RF Discharge Instructions Instructions: Knee Pain ED, Knee Brace ED Additional Instructions: At this time there is no evidence of acute fractures or broken bones on the knee x-ray. No evidence urinary tract infection. You were able to demonstrate adequate ambulation or walking using the knee brace and your walker. Please continue to use the knee brace take your pain medication and use a walker at home. Please follow-up with primary care provider regarding at home assist ance with PT and OT. A referral for physical therapy was placed today. Please call them to follow-up. Follow up with primary care provider in 3-5 days. Return to ED sooner if any worsening or concerns. Please keep your upcoming appointment with orthopedics in March as previously scheduled. Please take Tylenol or Ibuprofen with food every 4-6 hours as needed for pain and swelling. Stand Alone Forms: Physical Therapy Referral Referrals: Jefe Coffey [Primary Care Provider] - 5 days HPI General Mode of arrival: wheelchair . Date/Time Provider Initiated Documentation: 01/14/25 19:11 . Limitations to Documentation: no limitations . Information obtained by: patient, RN notes reviewed and old records reviewed . HPI Narrative: 69-year-old female presents to the ER with a chief complaint of difficulty walking due to severe pain in her left thigh radiating down into her left foot. She reports that she has fallen couple of times in the last 2 weeks. She has been having difficulty getting up to the bathroom. She usually uses a cane or walker and reports that she is having her left leg giving out on her even with using the walker. She denies any chest pain shortness of breath neck or back pain nausea vomiting diarrhea or any other associated symptoms. 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 She reports she recently got off prednisone 2 weeks ago for rash. She does have 2+ edema noted to her bilateral lower extremities. She does have a history of a left total knee replacement. She reports she has been taking oxycodone for pain. Related Data Home Medications ?Medication ?Instructions ?Recorded ?Confirmed metformin 1,000 mg tablet 1,000 mg PO BID 11/09/22 01/14/25 ropinirole 2 mg tablet 2 mg PO BID 11/09/22 01/14/25 pantoprazole 40 mg tablet,delayed 40 mg PO BID 12/15/22 01/14/25 release nystatin 100,000 unit/gram topical 6,000,000 unit topical TID #60 02/05/23 01/14/25 powder grams lactulose 10 gram/15 mL oral 30 g PO TID 06/26/23 01/14/25 solution polyethylene glycol 3350 17 gram 17 g PO DAILY PRN PRN Constipation 07/01/23 01/14/25 oral powder packet #0 ea oxybutynin chloride 5 mg tablet 5 mg PO BID #60 tabs 01/10/24 03/13/25 semaglutide 0.25 mg or 0.5 mg (2 0.25 mg subcut QWEEK 12/12/23 01/14/25 mg/3 mL) subcutaneous pen injector (REALTIME.CO) torsemide 20 mg tablet 40 mg PO DAILY 01/23/24 01/14/25 fluoxetine 40 mg capsule 40 mg PO DAILY 01/24/24 01/14/25 ondansetron HCl 4 mg tablet 4 mg PO DAILY PRN 04/16/24 01/14/25 magnesium oxide 400 mg PO DAILY #30 tabs 06/02/24 01/14/25 potassium chloride 20 mEq 20 meq PO TID #90 tabs 06/02/24 01/14/25 tablet,extended release atorvastatin 40 mg tablet 80 mg (2 x 40 mg) PO DAILY #30 tabs 08/20/24 01/14/25 doxepin 10 mg capsule 30 mg PO QHS 10/24/24 01/14/25 modafinil 200 mg tablet 200 mg PO DAILY 01/11/25 01/14/25 oxycodone 5 mg tablet 5 mg PO Q6H PRN 01/11/25 01/14/25 Previous Rx's ?Medication ?Instructions ?Recorded nystatin 100,000 unit/gram topical 6,000,000 unit topical TID #60 02/05/23 powder grams polyethylene glycol 3350 17 gram 17 g PO DAILY PRN PRN Constipation 07/01/23 oral powder packet #0 ea oxybutynin chloride 5 mg tablet 5 mg PO BID #60 tabs 11/13/23 magnesium oxide 400 mg PO DAILY #30 tabs 06/02/24 potassium chloride 20 mEq 20 meq PO TID #90 tabs 06/02/24 tablet,extended release atorvastatin 40 mg tablet 80 mg (2 x 40 mg) PO DAILY #30 tabs 08/20/24 Allergies Allergy/AdvReac Type Severity Reaction Status Date / Time Penicillins Allergy Severe Swelling/Ed Verified 01/14/25 19:25 sophie tramadol Allergy Severe Swelling/Ed Verified 01/14/25 19:25 sophie apricot Allergy Intermediate Hives Verified 01/14/25 19:25 ferrous sulfate Allergy Unknown Other (See Verified 01/14/25 19:25 Comment) raspberry Allergy Other (See Verified 01/14/25 19:25 Comment) vancomycin AdvReac Intermediate Other (See Verified 01/14/25 19:25 Comment) General Stated Complaint: Orthopedic CHELA: 4 Review of Systems All systems reviewed & are unremarkable except as noted in HPI and below Musculoskeletal Musculoskeletal: Reports as per HPI, Reports abnormal gait, Reports arthralgias, Reports radiating pain into limb and Reports stiffness Neurologic Neurologic: Reports abnormal gait Exam Const General: cooperative Nutritional Appearance: obese Orientation: alert, awake and oriented x3 Resp Effort & Inspection: normal respiratory effort and able to speak in complete sentences Auscultation: clear to auscultation bilaterally Cardio Rate: regular rate Rhythm: regular rhythm Heart Sounds: S1 normal and S2 normal Extrem General: edema Laterality: bilateral (2+ lower extremity) Left lower extremity: knee Details: tenderness Course Vital Signs Vital signs: Vital Signs Temperature 36.7 C 01/14/25 19:21 Pulse 102 H 01/14/25 19:21 Respiratory Rate 20 01/14/25 19:21 Blood Pressure 173/49 H 01/14/25 19:21 Pulse Oximetry 99 01/14/25 19:21 Temperature 36.7 C 01/14/25 19:21 Temperature Source Tympanic 01/14/25 19:21 Pulse 102 H 01/14/25 19:21 Respiratory Rate 20 01/14/25 19:21 Blood Pressure 173/49 H 01/14/25 19:21 Blood Pressure Position Sitting 01/14/25 19:21 Pulse Oximetry 99 01/14/25 19:21 Oxygen Delivery Method Room Air 01/14/25 19:21 Oxygen Flow Rate 0 01/14/25 19:21 Medical Decision Making 69-year-old female presents to the ER with a chief complaint of difficulty walking due to severe pain in her left thigh radiating down into her left foot. She reports that she has fallen couple of times in the last 2 weeks. She has been having difficulty getting up to the bathroom. She usually uses a cane or walker and reports that she is having her left leg giving out on her even with using the walker. She denies any chest pain shortness of breath neck or back pain nausea vomiting diarrhea or any other associated symptoms. 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 She reports she recently got off prednisone 2 weeks ago for rash. She does have 2+ edema noted to her bilateral lower extremities. She does have a history of a left total knee replacement. She reports she has been taking oxycodone for pain. X-ray of left knee ordered. Patient reports that she was seen at [place] couple weeks ago and had imaging done of her hip. She is more concerned about her left knee at this time. X-ray shows no evidence of acute fracture. Will place in a hinged knee brace and road test with a walker. She reports that she takes oxycodone at night last taken last night. Urinalysis shows no evidence of urinary tract infection. Patient up with knee brace and walker with minimal assistance Walks approximately 20+ feet. Patient reports that she continues to have pain however it does feel much better with the brace. Plan is to discharge patient home with instructions to use a knee brace and walker, follow-up with Ortho as previously scheduled in March. And also follow-up with primary care provider. Patient discharged into the care of her family. Remained hemodynamically stable throughout the remainder of her stay. This text was generated using [email or web address] system, please disregard any oddities of phrase or misspellings. Medical Records Medical records reviewed: Yes I reviewed the patient's medical records. Medical records narrative: Patient was seen at [facility] on January [address] of her L- spine which showed osteoarthritis changes. No acute fracture. Imaging Data Radiologic Study: Imaging: X-Ray Radiologist's impression: TECHNIQUE: Imaging protocol: Radiologic exam of the left knee. Views: 3 views. COMPARISON: CR XR ANKLE LT COMPLETE 05/27/2023 7:58 PM FINDINGS: Bones/joints: Left knee prosthesis identified in good position. No acute fracture. Soft tissues: Diffuse soft tissue edema identified in the left lower extremity. IMPRESSION: 1. Left knee prosthesis identified in good position. 2. No acute fracture. 3. Soft tissue edema. Thank you for allowing us to participate in the care of your patient. Dictated and Authenticated by: Otto Pool MD Lab Data Lab results reviewed: Yes I reviewed the patient's lab results. Labs: Laboratory Tests Range/Units 01/14/25 19:30 Urine Color (Yellow) Yellow Urine Clarity (Clear) Clear Urine pH (5-8) 7.0 Ur Specific [place] (1.005-1.025) 1.015 Urine Protein (Neg-Trace) mg/dL Negative Urine Ketones (Negative) mg/dL Negative Urine Blood (Negative) Negative Urine Nitrite (Negative) Negative Urine Bilirubin (Negative) Negative Urine Urobilinogen (Up to 0.2) mg/dL 1.0 H Ur Leukocyte Esterase (Negative) Negative Urine Glucose (Negative) mg/dL 500 H Quality:SDOH Health Related Social Needs: Health related social needs details non med compliant PFS All Active Problems (Updated 01/14/25 @ 20:41 by Neris Liriano NP) Knee pain, left (Acute) Encephalopathy (Chronic) Presumed secondary to chronic liver disease. Chronically elevated ammonia level. On lactulose. 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 Left clavicle Excess skin of eyelid Pituitary cyst Hypersomnia GAVE (gastric antral vascular ectasia) JAYDEN (obstructive sleep apnea) Acquired arteriovenous malformation Atypical angina Biliary dyskinesia Lung nodule Submucosal neoplasm of stomach Anemia Dermoid cyst History of peptic ulcer disease Osteoarthritis Pancreatitis Hypertensive disorder Hepatic encephalopathy Edema Atrophy of vagina Atrophic vaginitis Actinic keratosis Pituitary adenoma Restless legs Neoplasm of parotid gland Lumbar spondylosis Lesion of esophagus Dyslipidemia Depressive disorder Crohn's disease Chronic low back pain Anxiety Anemia Cirrhosis SALCIDO (nonalcoholic steatohepatitis) CHF (congestive heart failure) Anasarca Surgical History History of oophorectomy, unilateral History of rotator cuff surgery bilateral History of total knee arthroplasty bilateral History of sleeve gastrectomy History of hysterectomy Family History Brother Cancer Lung Alcohol use disorder 2 older brothers Social History Smoking/Tobacco Use Status: Never Smoking risk assessment performed?: Yes Alcohol Intake: never Drug use: Never Substance use type: does not use Housing: house Current gender identity: female Do you feel safe at home: Yes Do you feel safe in your relationship?: Yes Additional Social history: Lives with Arslan, and son in [place]. Moved from [place] in 2020. Has a dog and 8 pet birds. PAWSS Have you Been Recently Intoxicated or Drunk Within the Last 30 days?: No Have you Ever Experienced Previous Episodes of Alcohol Withdrawal?: No Have you ever Experienced Withdrawal Seizures?: No Have you ever Experienced Delirium Tremens(DT)s?: No Have you ever undergone Alcohol Rehabilitation Treatment (i.e, inpt ot outpatient treatment programs)?: No Have you ever Experienced Blackouts?: No Have you ever Combined Alcohol with other Downers within the last 90 days?: No Have you ever Combined Alcohol with any other Substance of Abuse during the last 90 days?: No Positive Blood Alcohol level on Presentation? [PCS.BAL]: No Evidence of Increased Autonomic Activity (i.e. HR>120, tremor, sweating, agitation, nausea)?: No Result: 0
--- NOTE | 2025-01-14 19:30 | DI.RAD_ITS ---
Exam(s) XR KNEE LT 3V AP,LAT,JULIETA EXAM: XR KNEE LT 3V AP,LAT,JULIETA CLINICAL HISTORY: Pain. TECHNIQUE: 2D digital imaging was performed of the left knee. Three images were obtained. AP, late ral and PA tunnel views were obtained. COMPARISON: There are no priors for comparison. FINDINGS: BONES: No acute fracture is present. No bony destructive lesion is seen. JOINTS: The patient has a left total knee arthroplasty. There are no lucency seen in or about the or thopedic hardware. No joint effusion is seen. No loose body. SOFT TISSUE: There is edema seen in the soft tissues. No radiopaque foreign body is identified. IMPRESSION: No acute fracture or dislocation. DATA REPOSITORY: RADIATION DOSE DELIVERED:
[2025-01-14 19:43] LABS: Bilirubin Negative (Negative); Blood Negative (Negative); Clarity Clear (Clear); Glucose 500 mg/dL (Negative); Ketones Negative (Negative); Leukocyte Esterase Negative (Negative); Nitrite Negative (Negative); Specific Gravity 1.015 (1.005-1.025)
--- NOTE | 2025-01-14 20:25 | DI.VRAD_ITS ---
PROCEDURE INFORMATION: Exam: XR Left Knee Exam date and time: 01/14/2025 7:44 PM Age: 69 years old Clinical indication: Pain; Left; Prior surgery; Surgery date: 6+ months; Surgery type: Knee replacment 4 yrs ago TECHNIQUE: Imaging protocol: Radiologic exam of the left knee. Views: 3 views. COMPARISON: CR XR ANKLE LT COMPLETE 05/27/2023 7:58 PM FINDINGS: Bones/joints: Left knee prosthesis identified in good position. No acute fracture. Soft tissues: Diffuse soft tissue edema identified in the left lower extremity. IMPRESSION: 1. Left knee prosthesis identified in good position. 2. No acute fracture. 3. Soft tissue edema. Dictated and Authenticated by: Otto Pool MD. Orderin Deandra Cordon MD
[2025-01-14 21:10] VITALS: BP 164/74; PULSE 84; RESP 18; TEMP 36.7; O2SAT 98
--- NOTE | 2025-01-16 08:26 | NUR.NOTE ---
Access chart to get the discharge diagnosis for [facility] billing requisition. Nursing Note:
== END 2025-01-14 21:10 | disposition home or self-care (01) ==
PROVIDERS: Emergency Provider Registered Nurse Emergency; PCP Family Medicine
DX: M25.562 Pain in left knee (principal); W19.XXXA Unspecified fall, initial encounter
CPT/HCPCS: 29505; 73562; 99285; 81003; 99283

== ENCOUNTER 2025-02-05 00:54 | Outpatient (RCR) | payer MEDICARE, SELFPAY ==
[2025-02-05] VITALS (10 sets, daily range): BP systolic 112–156; BP diastolic 51–76; PULSE 85–96; RESP 17–19; TEMP 36.5–36.7; O2SAT 94–100
[2025-02-05 09:03] LABS: HCT 23.6 % (36.0-46.0); MCH 21.2 pg (27.0-33.0); MCV 76 fL (80-95); Platelet Count 159 10^3/uL (130-400); RBC 3.12 10^6/uL (3.93-5.22); RDW 16.9 % (11.7-14.6); RDW-SD 45.9 fL; WBC 4.37 10^3/uL (4.4-10.8)
[2025-02-05 09:23] LABS: HGB 6.6 g/dL (11.2-15.7)
[2025-02-05] MEDS: Normal Saline Flush 5 ML SYR IVP (13:38)
== END 2025-03-03 23:59 | disposition home or self-care (01) ==
LOC: INF 00:54
PROVIDERS: PCP Family Medicine; Visit Provider Family Medicine
DX: D64.9 Anemia, unspecified (principal)
CPT/HCPCS: 36415; 36430; 85027; 86850; 86900; 86901; 86920; P9016

== ENCOUNTER 2025-02-24 18:22 | Inpatient (IN) | payer MEDICARE, SELFPAY ==
[2025-02-24] VITALS (56 sets, daily range): BP systolic 121–191; BP diastolic 36–68; PULSE 65–104; RESP 10–26; TEMP 36.3–36.9; O2SAT 82–98
--- NOTE | 2025-02-24 18:15 | RT.EKG_ITS ---
APPROVED REPORT Exam: Resting ECG Reason for Exam: weakness Patient Location: E HR:85 bpm ECG Measurements Heart Rate 85 AXIS MT 170 P 60 QRSd 88 QRS 53 QT 394 T 42 QTc 470 Conclusion Sinus rhythm...normal P axis, V-rate 60- 99 Probable left atrial enlargement...P >50mS, <-0.10mV V1 Sinus Rhythm. No significant changes fron prior 11/16/24.WD
--- NOTE | 2025-02-24 18:42 | ED.GENADUL_ITS ---
Discharge Plan Disposition Patient Disposition: Admit to [facility] Condition: Stable Discharge Details Clinical Impression: Anemia Primary Care Provider: Jefe Coffey ED Provider: Yo Lion Home Meds and New Rx's Prescriptions: No Action modafinil 200 mg tablet 200 mg PO DAILY oxycodone 5 mg tablet 5 mg PO Q6H PRN lactulose 10 gram/15 mL solution 30 g PO TID Ozempic 0.25 mg or 0.5 mg (2 mg/3 mL) pen injector 0.25 mg subcut QWEEK Rx Instructions: for 4 weeks metformin 1,000 mg Tablet 1,000 mg PO BID ropinirole 2 mg Tablet 2 mg PO BID nystatin 100,000 unit/gram Powder 6,000,000 unit topical TID Qty: 60 0RF Rx Instructions: apply to reddened skin folds atorvastatin 40 mg Tablet 80 mg PO DAILY Qty: 30 0RF doxepin 10 mg capsule 30 mg PO QHS Patient Comments: 20 mg once a day pantoprazole 40 mg Tablet,Delayed Release (Dr/Ec) 40 mg PO BID polyethylene glycol 3350 17 gram Powder In Packet 17 g PO DAILY PRN PRN (Reason: Constipation) Qty: 0 0RF oxybutynin chloride 5 mg Tablet 5 mg PO BID Qty: 60 0RF torsemide 20 mg tablet 40 mg PO DAILY Patient Comments: TAKE TWO TABLETS BY MOUTH EVERY DAY fluoxetine 40 mg capsule 40 mg PO DAILY ondansetron HCl 4 mg tablet 4 mg PO DAILY PRN Patient Comments: TAKE ONE TABLET BY MOUTH EVERY DAY NEEDED FOR NAUSEA potassium chloride 20 mEq tablet extended release 20 meq PO TID Qty: 90 0RF Rx Instructions: with meals magnesium oxide 400 mg magnesium tablet 400 mg PO DAILY Qty: 30 0RF HPI General Date/Time Provider Initiated Documentation: 02/24/25 18:34 . HPI Narrative: 69 year-old female presents to ED today by EMS with a chief complaint of weakness, fall earlier today, doesn't remember it, reporting L leg spasm from knee to groin- ongoing issues with GI bleeding and anemia, received 2 units earlier in February at [facility]. Quality described as leg spasm pain, weakness, fatigue, denies hitting her head but unsure, no radiation to vomiting, hematemesis, coffee-ground emesis, reports dark urine, states straining to have BM, denies abdominal pain, denies chest pain, endorses palpitations, shortness of breath on exertion at baseline, and uses a walker at baseline. Severity is described as moderate. Palliating factors include nothing specific. Provoking factors include nothing specific. Events leading up to the incident/Associated Symptoms: Patient has chronic CHF, and had some high-dose diuretics but failed to lose weight even with a pichardo cath per PCP visit in February, and the pichardo was dc'd. Patient not anticoagulated. Related Data Home Medications ?Medication ?Instructions ?Recorded ?Confirmed metformin 1,000 mg tablet 1,000 mg PO BID 11/09/22 01/14/25 ropinirole 2 mg tablet 2 mg PO BID 11/09/22 01/14/25 pantoprazole 40 mg tablet,delayed 40 mg PO BID 12/15/22 01/14/25 release nystatin 100,000 unit/gram topical 6,000,000 unit topical TID #60 02/05/23 01/14/25 powder grams lactulose 10 gram/15 mL oral 30 g PO TID 06/26/23 01/14/25 solution polyethylene glycol 3350 17 gram 17 g PO DAILY PRN PRN Constipation 07/01/23 01/14/25 oral powder packet #0 ea oxybutynin chloride 5 mg tablet 5 mg PO BID #60 tabs 11/13/23 01/14/25 semaglutide 0.25 mg or 0.5 mg (2 0.25 mg subcut QWEEK 12/12/23 01/14/25 mg/3 mL) subcutaneous pen injector (Ozempic) torsemide 20 mg tablet 40 mg PO DAILY 01/23/24 01/14/25 fluoxetine 40 mg capsule 40 mg PO DAILY 01/24/24 01/14/25 ondansetron HCl 4 mg tablet 4 mg PO DAILY PRN 04/16/24 01/14/25 magnesium oxide 400 mg PO DAILY #30 tabs 06/02/24 01/14/25 potassium chloride 20 mEq 20 meq PO TID #90 tabs 06/02/24 01/14/25 tablet,extended release atorvastatin 40 mg tablet 80 mg (2 x 40 mg) PO DAILY #30 tabs 08/20/24 01/14/25 doxepin 10 mg capsule 30 mg PO QHS 10/24/24 01/14/25 modafinil 200 mg tablet 200 mg PO DAILY 01/11/25 01/14/25 oxycodone 5 mg tablet 5 mg PO Q6H PRN 01/11/25 01/14/25 Previous Rx's ?Medication ?Instructions ?Recorded nystatin 100,000 unit/gram topical 6,000,000 unit topical TID #60 02/05/23 powder grams polyethylene glycol 3350 17 gram 17 g PO DAILY PRN PRN Constipation 07/01/23 oral powder packet #0 ea oxybutynin chloride 5 mg tablet 5 mg PO BID #60 tabs 11/13/23 magnesium oxide 400 mg PO DAILY #30 tabs 06/02/24 potassium chloride 20 mEq 20 meq PO TID #90 tabs 06/02/24 tablet,extended release atorvastatin 40 mg tablet 80 mg (2 x 40 mg) PO DAILY #30 tabs 08/20/24 Allergies Allergy/AdvReac Type Severity Reaction Status Date / Time Penicillins Allergy Severe Swelling/Ed Verified 02/24/25 18:30 sophie tramadol Allergy Severe Swelling/Ed Verified 02/24/25 18:30 sophie apricot Allergy Intermediate Hives Verified 02/24/25 18:30 ferrous sulfate Allergy Unknown Other (See Verified 02/24/25 18:30 Comment) raspberry Allergy Other (See Verified 02/24/25 18:30 Comment) pineapple AdvReac Intermediate Topical Unverified 02/24/25 18:30 Irritation vancomycin AdvReac Intermediate Other (See Verified 02/24/25 18:30 Comment) General Stated Complaint: Fall/Non TraumaCriteria CHELA: 3 Review of Systems All systems reviewed & are unremarkable except as noted in HPI and below Exam Narrative Exam Narrative: GENERAL APPEARANCE: Morbid obesity, non-toxic, awake and alert, atraumatic, no acute distress. SKIN: Warm, pink, dry, intact, without rashes/lesions/ulcerations. HEAD: Normocephalic, atraumatic, normal hair distribution for gender/age. EYES: Normal conjunctiva, no exudates on lids/lashes. ENT: Nares patent, no circumoral cyanosis, no facial swelling NECK: Supple, trachea midline, painless cervical ROM. LUNGS/CHEST: Lungs CTA bilaterally- no overt rhonchi/wheezes, rales at bases, non-labored respirations, increased A/P diameter, symmetrical expansion, no chest wall deformity HEART (CV/PV): Regular rate and rhythm with murmur- harsh systolic blowing murmur best heard at apex, 3+ peripheral edema, non-pitting, no JVD. ABDOMEN: Soft, non-distended, no guarding, no tenderness. MSK: Normal ROM, no swelling/deformity to bilateral UEs or LEs, moving all extremities without weakness, no cyanosis, spine midline without tenderness, normal curvature. NEURO: Mental Status AAOx4 - alert to person, place, time, events No facial droop, no forehead involvement. Motor: No focal weakness - strength 4+/5 in bilateral UEs and LEs, proximal and distal, symmetric. Sensory: sensation intact to light touch globally. Gait - cannot stand with walker and 2 assists. PSYCH: euthymic, cooperative, pleasant, appropriate speech Course Vital Signs Vital signs: Vital Signs Temperature 36.3 C L 02/24/25 18:22 Pulse 89 02/24/25 18:22 Respiratory Rate 18 02/24/25 18:22 Blood Pressure 133/41 L 02/24/25 18:22 Pulse Oximetry 97 02/24/25 18:22 Temperature 36.3 C L 02/24/25 18:22 Temperature Source Tympanic 02/24/25 18:22 Pulse 89 02/24/25 18:22 Respiratory Rate 18 02/24/25 18:22 Blood Pressure 133/41 L 02/24/25 18:22 Blood Pressure Position Supine 02/24/25 18:22 Pulse Oximetry 97 02/24/25 18:22 Oxygen Delivery Method Room Air 02/24/25 18:22 Oxygen Flow Rate 0 02/24/25 18:22 Pain Level 5 02/24/25 18:22 Medical Decision Making This dictation utilizes [id number] dictation software and may contain uned ited grammatical errors. 69 year-old female presents to ED today by EMS with a chief complaint of weakness, fall earlier today, doesn't remember it, reporting L leg spasm from knee to groin- ongoing issues with GI bleeding and anemia, received 2 units earlier in February at [facility]. Quality described as leg spasm pain, weakness, fatigue, denies hitting her head but unsure, no radiation to vomiting, hematemesis, coffee-ground emesis, reports dark urine, states straining to have BM, denies abdominal pain, denies chest pain, endorses palpitations, shortness of breath on exertion at baseline, and uses a walker at baseline, endorses diffuse back pain to a mild to moderate degree from her fall, denies urinary retention, denies bowel incontinence, denies numbness to genitals. Severity is d escribed as moderate. Palliating factors include nothing specific. Provoking factors include nothing specific. Events leading up to the incident/Associated Symptoms: Patient has chronic CHF, and had some high-dose diuretics but failed to lose weight even with a pichardo cath per PCP visit in February, and the pichardo was dc'd. Patient states she had an EGD/Colonoscopy a couple months ago unsure of findings/interventions. Patients' medical history: CHF, atypical angina, submucosal neoplasm of stomach, anemia, peptic ulcer disease, pancreatitis, hypertension, hepatic encephalopathy, edema, pituitary adenoma, Crohn's disease, Gallagher cirrhosis, anasarca, T2DM. Family and social history: Denies EtOH intake, [facility]. Pertinent exam findings / vital signs include diffuse edema consistent with chronic anasarca, nonpitting, systolic harsh blowing murmur without JVD, rales at bases of lungs but nonlabored respirations with no hypoxia, no abdominal tenderness, answering questions appropriately, vital stable. Differential / pathologies of concern include anemia, GI bleeding, syncope, fall, intracranial hemorrhage, vertebral compression fracture, unlikely pelvic fracture, no hip tenderness, benign abdomen do not suspect perforated viscus. Diagnostic studies of: - CBC, CMP, troponin, BNP, TSH, UA, PCR respiratory swab, chest x-ray, CT head without contrast, CT thoracic and L-spine without contrast. Added Type & Screen - CBC shows profound anemia of 6.6, likely GI bleeding - CMP shows no actionable abnormality - Magnesium within normal limits - Troponin negative with reliable onset - BNP negative - UA unremarkable save for glucose spilling - PCR swab negative - EKG shows sinus rhythm at 85 bpm with P waves followed by narrow complex QRS, normal axis, no ST abnormalities or T wave abnormalities, normal intervals -PT/PTT benign - Type and screen O+ with negative antibody screen - Chest x-ray shows interstitial edema - CT head benign - CT T and L-spine shows only chronic findings Interventions of: -2 units pRBCs, 1g IV Tylenol. ED Course/Assessment/Plan: 69-year-old morbidly obese female with Gallagher liver cirrhosis and CHF consistently failing treatments to reduce her fluid retention burden presents with a fall earlier today and does not remember, has no significant trauma save for some anterior leg muscle spasms without pelvic tenderness at the hips, has no respiratory distress, has a history of neoplasm of the stomach as well as peptic ulcer disease and chronic bouts with anemia, last hemoglobin was 6.6 on 02/05, her hemoglobin is 6.6 again today, she likely needs infusion I did start 2 units of packed red blood cells, I spoke with hospitalist Dr. Carlson who accepted the patient for admission at 2130. Findings not consistent with trauma, ACS, hypoxic respiratory failure secondary to CHF exacerbation of. Disposition of Anemia. Patient verbalized understanding of the plan and return to ED criteria and engaged in shared decision making. Medical Records Medical records reviewed: Yes I reviewed the patient's medical records. Imaging Data Radiologic Study: Attestation: I personally reviewed and interpreted this imaging study as follows: Imaging: X-Ray Radiologist's impression: Exam: XR Chest Exam date and time: 02/24/2025 7:57 PM Age: 69 years old Clinical indication: Cough TECHNIQUE: Imaging protocol: Radiologic exam of the chest. Views: 2 views. COMPARISON: CR XR CHEST 2V PA LATERAL 11/16/2024 7:30 PM FINDINGS: Lungs: Pulmonary vascular congestion and mild interstitial edema. Pleural spaces: Unremarkable. No pleural effusion. No pneumothorax. Heart/Mediastinum: Unremarkable. No cardiomegaly. Bones/joints: Unremarkable. IMPRESSION: Pulmonary vascular congestion and mild interstitial edema. Dictated and Authenticated by: Otto Pool MD. Radiologic Study #2: Attestation: I personally reviewed and interpreted this imaging study as follows: Imaging: CT Scan Radiologist's impression: Exam: CT Thoracic Spine Without Contrast Exam date and time: 02/24/2025 7:46 PM Age: 69 years old Clinical indication: Injury or trauma; Blunt trauma (contusions or hematomas); Injury date: 02/24/25; Fall, back pain radiating to L leg TECHNIQUE: Imaging protocol: Computed tomography of the thoracic spine without contrast. Radiation optimization: All CT scans at this facility use at least one of these dose optimization techniques: automated exposure control; mA and/or kV adjustment per patient size (includes targeted exams where dose is matched to clinical indication); or iterative reconstruction. COMPARISON: CT ABDOMEN PELVIS W 11/16/2024 7:19 PM FINDINGS: Bones/joints: Normal alignment of the thoracic vertebral bodies and discs. No acute fracture. Osteoarthritic changes identified at all levels without spondylolysis or spondylolisthesis. No central spinal stenosis or cord compression. Soft tissues: Unremarkable. IMPRESSION: 1. No acute fracture. 2. No central spinal stenosis or cord compression. 3. Osteoarthritic changes at all levels without spondylolysis or spondylolisthesis. PROCEDURE INFORMATION: Exam: CT Lumbar Spine Without Contrast Exam date and time: 02/24/2025 7:46 PM Age: 69 years old Clinical indication: Injury or trauma; Blunt trauma (contusions or hematomas); Injury date: 02/24/25; Fall, back pain radiating to L leg TECHNIQUE: Imaging protocol: Computed tomography of the lumbar spine without contrast. Radiation optimization: All CT scans at this facility use at least one of these dose optimization techniques: automated exposure control; mA and/or kV adjustment per patient size (includes targeted exams where dose is matched to clinical indication); or iterative reconstruction. COMPARISON: RF XR LS SPINE 2-3 VIEWS 12/08/2024 11:34 AM FINDINGS: Bones/joints: Normal alignment of the lumbar vertebral bodies and discs. Large Schmorl's node identified in the superior endplate of the L4 vertebral body. Osteoarthritic changes identified at all levels and most pronounced at L3-L4 with endplate sclerosis identified especially in the superior endplate of L4. Superimposed mild old compression deformity of the L4 vertebral body likely as well. Osteoarthritic changes identified at all levels with spondylolysis of the L3-L4 level bilaterally. No central spinal stenosis identified at any of the imaged lumbar levels. Mild neural foraminal narrowing identified at several levels secondary to facet arthropathy. Soft tissues: Unremarkable. IMPRESSION: 1. Findings representing an old mild compression deformity of the L4 vertebral body with changes of osteoarthritis noted at the L3-L4 level. 2. Osteoarthritic changes identified without significant central spinal stenosis. 3. Bilateral spondylolysis at L3-L4. Dictated and Authenticated by: Otto Pool MD. Radiologic Study #3: Attestation: I personally reviewed and interpreted this imaging study as follows: Imaging: CT Scan Radiologist's impression: Exam: CT Head Without Contrast Exam date and time: 02/24/2025 7:44 PM Age: 69 years old Clinical indication: Injury or trauma; Blunt trauma (contusions or hematomas); Consciousness not specified; Injury date: 02/24/25; Can't remember fall TECHNIQUE: Imaging protocol: Computed tomography of the head without contrast. Radiation optimization: All CT scans at this facility use at least one of these dose optimization techniques: automated exposure control; mA and/or kV adjustment per patient size (includes targeted exams where dose is matched to clinical indication); or iterative reconstruction. COMPARISON: CT HEAD WO 08/16/2024 3:54 PM FINDINGS: Brain: There is no acute intracranial hemorrhage, mass effect or midline shift. No large acute territorial infarct identified. There are patchy regions of hypodensity in the periventricular and subcortical white matter, likely on the basis of chronic microvascular ischemic disease. Cerebral ventricles: The ventricles and sulci are prominent in size, which is at least in part due to global cerebral volume loss. Pituitary gland and sella: No significant change in appearance of 1.2 cm hyperdense round lesion in the pituitary sella, possibly an adenoma or aneurysm. Paranasal sinuses: Visualized sinuses are unremarkable. No fluid levels. Mastoid air cells: Visualized mastoid air cells are well aerated. Bones: No acute fracture. Soft tissues: Unremarkable. IMPRESSION: 1. No acute intracranial hemorrhage, mass effect or midline shift. 2. Stable 1.2 cm pituitary sellar lesion, possibly an adenoma or aneurysm. Unchanged since prior examination. Dictated and Authenticated by: Debo Heller MD. Lab Data Lab results reviewed: Yes I reviewed the patient's lab results. Labs: Laboratory Tests Range/Units 02/24/25 02/24/25 02/24/25 19:29 19:36 19:40 WBC (4.4-10.8) 10^3/uL 4.29 L RBC (3.93-5.22) 10^6/uL 2.84 L Hgb (11.2-15.7) g/dL 6.6 L* Hct (36.0-46.0) % 22.7 L MCV (80-95) fL 80 MCH (27.0-33.0) pg 23.2 L MCHC (32.0-36.0) % 29.1 L RDW (11.7-14.6) % 20.9 H Plt Count (130-400) 10^3/uL 125 L MPV (8.0-11.0) fL 10.5 Immature Gran % % 0.2 Neutrophils % % 60.5 Lymphocytes % % 17.9 Monocytes % % 13.3 Eosinophils % % 7.2 Basophils % % 0.9 Nucleated RBC % (0.0-0.3) % 0.0 Absolute Neutrophils (1.2-6.7) 10^3/uL 2.60 Absolute Lymphocytes (1.2-3.4) 10^3/uL 0.77 L Absolute Monocytes (0.1-0.8) 10^3/uL 0.57 Absolute Eosinophils (0.0-0.7) 10^3/uL 0.31 Absolute Basophils (0.0-0.2) 10^3/uL 0.04 Sodium (136-145) mmol/L 142 Potassium (3.5-5.1) mmol/L 4.1 Chloride (98-107) mmol/L 108 H Carbon Dioxide (21.0-32.0) mmol/L 30.0 Anion Gap (3-11) mmol/L 4.0 BUN (7-18) mg/dL 18 Creatinine (0.55-1.02) mg/dL 0.8 Est GFR (CKD-EPI 2020) (mL/min/1.73m2) 79.71 Glucose (74-106) mg/dL 244 H Calcium (8.5-10.1) mg/dL 8.5 Magnesium (1.8-2.4) mg/dL 1.9 Total Bilirubin (0.2-1.0) mg/dL 1.2 H AST (15-37) U/L 32 ALT (14-59) U/L 22 Alkaline Phosphatase (46-116) U/L 217 H Troponin I (<or=51) ng/L 15 NT-Pro-B Natriuret Pep (<300) pg/mL 86 Total Protein (6.4-8.2) g/dL 5.1 L Albumin (3.4-5.0) g/dL 2.2 L TSH (0.36-3.74) uIU/mL 2.24 Urine Color (Yellow) Yellow Urine Clarity (Clear) Clear Urine pH (5-8) 6.0 Ur Specific [place] (1.005-1.025) 1.015 Urine Protein (Neg-Trace) mg/dL Negative Urine Ketones (Negative) mg/dL Negative Urine Blood (Negative) Negative Urine Nitrite (Negative) Negative Urine Bilirubin (Negative) Negative Urine Urobilinogen (Up to 0.2) mg/dL 0.2 Ur Leukocyte Esterase (Negative) Negative Urine Glucose (Negative) mg/dL 250 H COVID-19 Source Nasopharynx SARS-CoV-2 (PCR) (Negative) Negative Influenza Type A (PCR) (Negative) Negative Influenza Type B (PCR) (Negative) Negative RSV (PCR) (Negative) Negative Crossmatch Range/Units 02/24/25 20:25 WBC (4.4-10.8) 10^3/uL RBC (3.93-5.22) 10^6/uL Hgb (11.2-15.7) g/dL Hct (36.0-46.0) % MCV (80-95) fL MCH (27.0-33.0) pg MCHC (32.0-36.0) % RDW (11.7-14.6) % Plt Count (130-400) 10^3/uL MPV (8.0-11.0) fL Immature Gran % % Neutrophils % % Lymphocytes % % Monocytes % % Eosinophils % % Basophils % % Nucleated RBC % (0.0-0.3) % Absolute Neutrophils (1.2-6.7) 10^3/uL Absolute Lymphocytes (1.2-3.4) 10^3/uL Absolute Monocytes (0.1-0.8) 10^3/uL Absolute Eosinophils (0.0-0.7) 10^3/uL Absolute Basophils (0.0-0.2) 10^3/uL Sodium (136-145) mmol/L Potassium (3.5-5.1) mmol/L Chloride (98-107) mmol/L Carbon Dioxide (21.0-32.0) mmol/L Anion Gap (3-11) mmol/L BUN (7-18) mg/dL Creatinine (0.55-1.02) mg/dL Est GFR (CKD-EPI 2020) (mL/min/1.73m2) Glucose (74-106) mg/dL Calcium (8.5-10.1) mg/dL Magnesium (1.8-2.4) mg/dL Total Bilirubin (0.2-1.0) mg/dL AST (15-37) U/L ALT (14-59) U/L Alkaline Phosphatase (46-116) U/L Troponin I (<or=51) ng/L NT-Pro-B Natriuret Pep (<300) pg/mL Total Protein (6.4-8.2) g/dL Albumin (3.4-5.0) g/dL TSH (0.36-3.74) uIU/mL Urine Color (Yellow) Urine Clarity (Clear) Urine pH (5-8) Ur Specific [place] (1.005-1.025) Urine Protein (Neg-Trace) mg/dL Urine Ketones (Negative) mg/dL Urine Blood (Negative) Urine Nitrite (Negative) Urine Bilirubin (Negative) Urine Urobilinogen (Up to 0.2) mg/dL Ur Leukocyte Esterase (Negative) Urine Glucose (Negative) mg/dL COVID-19 Source SARS-CoV-2 (PCR) (Negative) Influenza Type A (PCR) (Negative) Influenza Type B (PCR) (Negative) RSV (PCR) (Negative) Crossmatch See Detail Quality:SDOH Health Related Social Needs: Health related social needs details non med compliant PFSH All Active Problems (Updated 02/24/25 @ 22:08 by JAHAIRA Caban) Anemia (Chronic) Encephalopathy (Chronic) Presumed secondary to chronic liver disease. Chronically elevated ammonia level. On lactulose. 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 Left clavicle Excess skin of eyelid Pituitary cyst Hypersomnia GAVE (gastric antral vascular ectasia) JAYDEN (obstructive sleep apnea) Acquired arteriovenous malformation Atypical angina Biliary dyskinesia Lung nodule Submucosal neoplasm of stomach Anemia Dermoid cyst History of peptic ulcer disease Osteoarthritis Pancreatitis Hypertensive disorder Hepatic encephalopathy Edema Atrophy of vagina Atrophic vaginitis Actinic keratosis Pituitary adenoma Restless legs Neoplasm of parotid gland Lumbar spondylosis Lesion of esophagus Dyslipidemia Depressive disorder Crohn's disease Chronic low back pain Anxiety Anemia Cirrhosis GALLAGHER (nonalcoholic steatohepatitis) CHF (congestive heart failure) Anasarca Surgical History History of oophorectomy, unilateral History of rotator cuff surgery bilateral History of total knee arthroplasty bilateral History of sleeve gastrectomy History of hysterectomy Family History Brother Cancer Lung Alcohol use disorder 2 older brothers Social History Smoking/Tobacco Use Status: Never Smoking risk assessment performed?: Yes Alcohol Intake: never Drug use: Never Substance use type: does not use Housing: house Current gender identity: female Do you feel safe at home: Yes Do you feel safe in your relationship?: Yes Additional Social history: Lives with Arslan, and son in [place]. Moved from [place] in 2019. Has a dog and 8 pet birds.
--- NOTE | 2025-02-24 19:00 | DI.RAD_ITS ---
Exam(s) XR CHEST 2V PA LATERAL EXAM: XR CHEST 2V PA LATERAL CLINICAL HISTORY: cough TECHNIQUE: 2D digital imaging was performed of the chest. Two images were obtained. AP and lateral views were obtained. COMPARISON: CT CT CHEST/ABD/PEL WO from 05/30/2024 CR,XR XR PORTABLE CHEST AP from 10/23/2024 CR,XR XR CHEST 2V PA LATERAL from 11/16/2024 FINDINGS: MEDIASTINUM: Normal. HEART: Normal. PULMONARY VASCULATURE: There is prominence of the pulmonary vasculature. This may reflect pulmonary venous congestion or possibly findings of pulmonary artery hypertension. LUNGS: Clear. PLEURAL SPACE: No pleural effusion or pneumothorax. BONE:Within normal limits for the patient's age. There is an old fracture deformity of the left clav icle with findings suggestive of a pseudoarthrosis. OTHER FINDINGS:Normal. IMPRESSION: 1. Prominent pulmonary vasculature which may reflect pulmonary venous congestion or findings of pulmo nary artery hypertension. 2. No focal consolidating infiltrates or pleural effusions. 3. The preliminary [facility] report was reviewed. DATA REPOSITORY: RADIATION DOSE DELIVERED:
[2025-02-24 19:37] LABS: Abs Immature Grans 0.01 10^3/uL (0.0-0.06); Absolute Basophil Count 0.04 10^3/uL (0.0-0.2); Absolute Eosinophil Count 0.31 10^3/uL (0.0-0.7); Absolute Lymphocyte Count 0.77 10^3/uL (1.2-3.4); Absolute Monocyte Count 0.57 10^3/uL (0.1-0.8); Basophils % 0.9 %; Eosinophils % 7.2 %; HCT 22.7 % (36.0-46.0); Immature Grans % 0.2 %; Lymphocytes % 17.9 %; MCH 23.2 pg (27.0-33.0); MPV 10.5 fL (8.0-11.0); Monocytes % 13.3 %; Neutrophils % 60.5 %; Platelet Count 125 10^3/uL (130-400); RBC 2.84 10^6/uL (3.93-5.22); RDW-SD 59.9 fL; WBC 4.29 10^3/uL (4.4-10.8)
[2025-02-24 19:51] LABS: Bilirubin Negative (Negative); Blood Negative (Negative); Clarity Clear (Clear); Glucose 250 mg/dL (Negative); Ketones Negative (Negative); Leukocyte Esterase Negative (Negative); Nitrite Negative (Negative); Specific Gravity 1.015 (1.005-1.025); Urobilinogen 0.2 mg/dL (Up to 0.2)
[2025-02-24 19:58] LABS: NT-proBNP 86 pg/mL (<300)
--- NOTE | 2025-02-24 19:58 | DI.CT_ITS ---
Exam(s) CT THORACIC LUMBAR SPINE WO EXAM: CT THORACIC LUMBAR SPINE WO CLINICAL HISTORY: fall, back pain radiating to L leg. TECHNIQUE: Imaging Protocol: Axial computed tomography images with coronal and sagittal reformatted images were created and reviewed. COMPARISON: CT CT ABDOMEN PELVIS W from 11/16/2024 FINDINGS: Bones: No fractures or dislocations are seen. The alignment of the spine is normal including the cerv icothoracic junction and the thoracolumbar junction. 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 There is unchanged deformity of the superior endplate of L4. This may be a result of a Schmorl's node and/or mild old superior endplate compression and degenerative changes. Moderat e degenerative changes are seen in the lumbar spine. Arthritic changes are seen throughout the thora cic spine. Soft tissues: The soft tissues are unremarkable. No large disk herniations are identified. No signifi cant central spinal canal stenosis is present. [id number] neural foraminal stenosis is seen bi laterally at L3-L4. There is also mild neural foraminal narrowing bilaterally at L5-S1. Atheroscler otic calcifications are present. IMPRESSION: 1. No acute fractures or subluxations in the lumbar or thoracic spine. 2. Degenerative changes in the lumbar spine resulting in neural foraminal stenosis at L3-4 and L5-S1. 3. No central spinal canal stenosis. 4. The preliminary [facility] report was reviewed. RADIATION DOSE DELIVERED: 2,566.38mGy.cm Total DLP DATA REPOSITORY: All CT scans at this facility are submitted to the National Radiology Data Registry (NRDR) Dose Index Registry (DIR) with the [employer] ([employer]). RADIATION OPTIMIZATION: All CT scans at this facility use at least one of these dose optimization te chniques: automated exposure control; mA and/or kV adjustment per patient size (includes targeted exa ms where dose is matched to clinical indication); or iterative reconstruction.
--- NOTE | 2025-02-24 19:58 | DI.CT_ITS ---
Exam(s) CT HEAD WO EXAM: CT HEAD WO CLINICAL HISTORY: can't remember fall. TECHNIQUE: Imaging Protocol: Axial computed tomography images with coronal and sagittal reformatted images were created and reviewed COMPARISON: CT CT HEAD WO from 02/03/[address] HEAD WO from 08/16/2024 FINDINGS: Ventricles and Extra axial spaces: Normal in size and morphology for the patient's age. There is agai n seen a 0.9 transverse by 0.8 AP by 1.1 cm craniocaudad lesion in the anterior superior aspect of th e pituitary sella. This is unchanged compared to prior examinations. It is well-circumscribed and h yperdense. Hemorrhage: None. Cerebral parenchyma: There is no evidence of an acute territorial infarct. Midline shift: None. Brainstem/Cerebellum: Normal. Calvarium: Normal. Visualized Paranasal sinuses/Mastoids: Clear. Soft Tissues: Unremarkable. IMPRESSION: 1. No acute intracranial process. 2. 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 Differential considerations include pituitary adenoma or possible aneurysm. Meningioma should also be considered in the differential. 3. The preliminary [facility] report was reviewed. RADIATION DOSE DELIVERED: 800.72mGy.cm Total DLP DATA REPOSITORY: All CT scans at this facility are submitted to the National Radiology Data Registry (NRDR) Dose Index Registry (DIR) with the [employer] ([employer]). RADIATION OPTIMIZATION: All CT scans at this facility use at least one of these dose optimization te chniques: automated exposure control; mA and/or kV adjustment per patient size (includes targeted exa ms where dose is matched to clinical indication); or iterative reconstruction.
[2025-02-24 20:00] LABS: HGB 6.6 g/dL (11.2-15.7)
[2025-02-24 20:01] LABS: ALT 22 U/L (14-59); AST 32 U/L (15-37); Albumin 2.2 g/dL (3.4-5.0); Alkaline Phosphatase 217 U/L (46-116); BUN 18 mg/dL (7-18); Bilirubin, Total 1.2 mg/dL (0.2-1.0); CREATININE 0.8 mg/dL (0.55-1.02); Calcium 8.5 mg/dL (8.5-10.1); Chloride 108 mmol/L (98-107); Estimated GFR 79.71 (mL/min/1.73m2); Glucose 244 mg/dL (74-106); Magnesium 1.9 mg/dL (1.8-2.4); Potassium 4.1 mmol/L (3.5-5.1); Sodium 142 mmol/L (136-145); TSH (W/Ref FT4) 2.24 uIU/mL (0.36-3.74); Total Protein 5.1 g/dL (6.4-8.2); Troponin I 15 ng/L (<or=51)
[2025-02-24 20:02] LABS: RDW 20.9 % (11.7-14.6)
[2025-02-24 20:03] LABS: MCV 80 fL (80-95)
[2025-02-24 20:04] LABS: MCHC 29.1 % (32.0-36.0)
[2025-02-24 20:21] LABS: COVID-19 PCR Negative (Negative); Influenza A PCR Negative (Negative); Influenza B PCR Negative (Negative); RSV PCR Negative (Negative)
[2025-02-24 20:22] LABS: Source Nasopharynx
--- NOTE | 2025-02-24 20:33 | DI.[facility]_ITS ---
PROCEDURE INFORMATION: Exam: XR Chest Exam date and time: 02/24/2025 7:57 PM Age: 69 years old Clinical indication: Cough TECHNIQUE: Imaging protocol: Radiologic exam of the chest. Views: 2 views. COMPARISON: CR XR CHEST 2V PA LATERAL 11/16/2024 7:30 PM FINDINGS: Lungs: Pulmonary vascular congestion and mild interstitial edema. Pleural spaces: Unremarkable. No pleural effusion. No pneumothorax. Heart/Mediastinum: Unremarkable. No cardiomegaly. Bones/joints: Unremarkable. IMPRESSION: Pulmonary vascular congestion and mild interstitial edema. Dictated and Authenticated by: Otto Pool MD. Orderin Amisha Ram MD
[2025-02-24] MEDS: ACETAMINOPHEN 1,000 MG/100 ML BAG 400 MG IVPB (20:41)
--- NOTE | 2025-02-24 20:41 | DI.[facility]_ITS ---
PROCEDURE INFORMATION: Exam: CT Thoracic Spine Without Contrast Exam date and time: 02/24/2025 7:46 PM Age: 69 years old Clinical indication: Injury or trauma; Blunt trauma (contusions or hematomas); Injury date: 02/24/25; Fall, back pain radiating to L leg TECHNIQUE: Imaging protocol: Computed tomography of the thoracic spine without contrast. Radiation optimization: All CT scans at this facility use at least one of these dose optimization techniques: automated exposure control; mA and/or kV adjustment per patient size (includes targeted exams where dose is matched to clinical indication); or iterative reconstruction. COMPARISON: CT ABDOMEN PELVIS W 11/16/2024 7:19 PM FINDINGS: Bones/joints: Normal alignment of the thoracic vertebral bodies and discs. No acute fracture. Osteoarthritic changes identified at all levels without spondylolysis or spondylolisthesis. No central spinal stenosis or cord compression. Soft tissues: Unremarkable. IMPRESSION: 1. No acute fracture. 2. No central spinal stenosis or cord compression. 3. Osteoarthritic changes at all levels without spondylolysis or spondylolisthesis. PROCEDURE INFORMATION: Exam: CT Lumbar Spine Without Contrast Exam date and time: 02/24/2025 7:46 PM Age: 69 years old Clinical indication: Injury or trauma; Blunt trauma (contusions or hematomas); Injury date: 02/24/25; Fall, back pain radiating to L leg TECHNIQUE: Imaging protocol: Computed tomography of the lumbar spine without contrast. Radiation optimization: All CT scans at this facility use at least one of these dose optimization techniques: automated exposure control; mA and/or kV adjustment per patient size (includes targeted exams where dose is matched to clinical indication); or iterative reconstruction. COMPARISON: RF XR LS SPINE 2-3 VIEWS 12/08/2024 11:34 AM FINDINGS: Bones/joints: Normal alignment of the lumbar vertebral bodies and discs. Large Schmorl's node identified in the superior endplate of the L4 vertebral body. Osteoarthritic changes identified at all levels and most pronounced at L3-L4 with endplate sclerosis identified especially in the superior endplate of L4. Superimposed mild old compression deformity of the L4 vertebral body likely as well. Osteoarthritic changes identified at all levels with spondylolysis of the L3-L4 level bilaterally. No central spinal stenosis identified at any of the imaged lumbar levels. Mild neural foraminal narrowing identified at several levels secondary to facet arthropathy. Soft tissues: Unremarkable. IMPRESSION: 1. Findings representing an old mild compression deformity of the L4 vertebral body with changes of osteoarthritis noted at the L3-L4 level. 2. Osteoarthritic changes identified without significant central spinal stenosis. 3. Bilateral spondylolysis at L3-L4. Dictated and Authenticated by: Otto Pool MD. Orderin Amisha Ram MD
--- NOTE | 2025-02-24 20:54 | DI.[facility]_ITS ---
PROCEDURE INFORMATION: Exam: CT Head Without Contrast Exam date and time: 02/24/2025 7:44 PM Age: 69 years old Clinical indication: Injury or trauma; Blunt trauma (contusions or hematomas); Consciousness not specified; Injury date: 02/24/25; Can't remember fall TECHNIQUE: Imaging protocol: Computed tomography of the head without contrast. Radiation optimization: All CT scans at this facility use at least one of these dose optimization techniques: automated exposure control; mA and/or kV adjustment per patient size (includes targeted exams where dose is matched to clinical indication); or iterative reconstruction. COMPARISON: CT HEAD WO 08/16/2024 3:54 PM FINDINGS: Brain: There is no acute intracranial hemorrhage, mass effect or midline shift. No large acute territorial infarct identified. There are patchy regions of hypodensity in the periventricular and subcortical white matter, likely on the basis of chronic microvascular ischemic disease. Cerebral ventricles: The ventricles and sulci are prominent in size, which is at least in part due to global cerebral volume loss. Pituitary gland and sella: No significant change in appearance of 1.2 cm hyperdense round lesion in the pituitary sella, possibly an adenoma or aneurysm. Paranasal sinuses: Visualized sinuses are unremarkable. No fluid levels. Mastoid air cells: Visualized mastoid air cells are well aerated. Bones: No acute fracture. Soft tissues: Unremarkable. IMPRESSION: 1. No acute intracranial hemorrhage, mass effect or midline shift. 2. Stable 1.2 cm pituitary sellar lesion, possibly an adenoma or aneurysm. Unchanged since prior examination. Dictated and Authenticated by: Debo Heller MD. Orderin Amisha Ram MD
[2025-02-24 21:30] LABS: INR 1.2 (0.9-1.1); Prothrombin Time 11.6 sec (9.1-11.1)
--- NOTE | 2025-02-24 21:30 | HPE_ITS ---
Date of service: 02/24/25 Time of Service: 21:30 Assessment and Plan Assessment and plan (1) Anemia: Start date: 02/24/25 Assessment and plan: This is a 69-year-old lady who has frequent hospitalizations usually for either infection with sepsis, respiratory decompensation but today presents with rebound anemia status post recent transfusions and has chronic anemia which is recurrent and assume secondary to GI blood loss though endoscopies have been unrevealing. She is on medical therapy for chronic hepatic encephalopathy taking lactulose with frequent loose stools. She also is on diuretics chronically for CHF which is mostly right-sided and potassium supplement. She is on chronic narcotics and denies any recent sedation with her urine drug screen negative for any other drug use. Her VPMS is appropriate for her prescribed oxycodone. She is responding to IV fluids and blood replacement now with 1 unit packed red blood cells given and second unit of packed red blood cells infusing. If she stabilizes will go home with follow-up with PCP and ongoing evaluation for chronic blood loss. She is not on aspirin, Plavix or chronic anticoagulation. Platelet count is chronically low with her cirrhosis. She was placed on compression stockings for DVT prophylaxis instead of Lovenox/heparin because of her possible bleeding. She is a full code. (2) CHF (congestive heart failure): Assessment and plan: Continue outpatient medical therapy monitoring fluid status. She is not orthostatic. (3) Type 2 diabetes mellitus: Status: Chronic Assessment and plan: Glucometer measurements before meals and at bedtime with moderate sliding scale short acting insulin coverage while hospitalized. (4) Liver cirrhosis secondary to SALCIDO: Status: Chronic Assessment and plan: Continue lactulose while hospitalized. Monitor lab. (5) JAYDEN (obstructive sleep apnea): Assessment and plan: Home CPAP at night with home settings. (6) Chronic low back pain: Assessment and plan: Continue outpatient pain management monitor for sedation especially with patient having falls. Urine drug screen was negative for any other drug use the patient not having history of misuse of drugs. VPMS was reviewed and was consistent with her outpatient prescribing and use. She does not take her medication at all times and has months without prescription being given and averages 1 tablet/day when prescribed. History of Present Illness History of Present Illness Chief Complaint: Woke up on the floor at home. N arrative: This is a 69-year-old female patient who at baseline has shortness of breath with exertion and uses a walker who has chronic anemia with chronic GI blood loss but no source found with negative endoscopies in the recent past. She did receive a transfusion of red blood cells couple weeks prior to this admission and presented to the ED after falling at home and not remembering her fall. She woke up on the floor. She did have spasm in her left lower extremity associated with her fall. She came to the ED for evaluation and found to have dropped her hemoglobin 2 g/dL from 8.4 to 6.6 g/dL. She had abrasion to right knee but no other injuries with her fall with negative imaging of her head, neck and spine. He denies any recent abdominal symptoms with no hematemesis or melena/hematochezia and no complaints of abdominal pain. At the time I saw the patient she was sleeping comfortably after 1 unit of packed red blood cells and a second unit hanging. He does sleep with CPAP and is using her home machine. She offers no further history. Her chronic medical problems. Overall stable but she does have frequent hospitalizations. She remains a full code though this should be reevaluated with her multisystem disease and frequent decompensation. Review of Systems Narrative: 13 point review of systems otherwise unrevealing or stable. She is chronically overweight and has chronic peripheral edema. [facility] All Active Problems (Updated 02/25/25 @ 06:20 by Devin Carlson) Anemia (Chronic) Encephalopathy (Chronic) Presumed secondary to chronic liver disease. Chronically elevated ammonia level. On lactulose. 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 Left clavicle Excess skin of eyelid Pituitary cyst Hypersomnia GAVE (gastric antral vascular ectasia) JAYDEN (obstructive sleep apnea) Acquired arteriovenous malformation Atypical angina Biliary dyskinesia Lung nodule Submucosal neoplasm of stomach Anemia Dermoid cyst History of peptic ulcer disease Osteoarthritis Pancreatitis Hypertensive disorder Hepatic encephalopathy Edema Atrophy of vagina Atrophic vaginitis Actinic keratosis Pituitary adenoma Restless legs Neoplasm of parotid gland Lumbar spondylosis Lesion of esophagus Dyslipidemia Depressive disorder Crohn's disease Chronic low back pain Anxiety Anemia Cirrhosis SALCIDO (nonalcoholic steatohepatitis) CHF (congestive heart failure) Anasarca Surgical History History of oophorectomy, unilateral History of rotator cuff surgery bilateral History of total knee arthroplasty bilateral History of sleeve gastrectomy History of hysterectomy Family History Brother Cancer Lung Alcohol use disorder 2 older brothers Social History Smoking/Tobacco Use Status: Never Smoking risk assessment performed?: Yes Alcohol Intake: never Drug use: Never Substance use type: does not use Housing: house Current gender identity: female Do you feel safe at home: Yes Do you feel safe in your relationship?: Yes Additional Social history: Lives with Arslan, and son in [place]. Moved from [place] in 2019. Has a dog and 8 pet birds. Meds Allergies and Home Medications Allergies Allergy/AdvReac Type Severity Reaction Status Date / Time Penicillins Allergy Severe Swelling/Ed Verified 02/24/25 18:30 sophie tramadol Allergy Severe Swelling/Ed Verified 02/24/25 18:30 sophie apricot Allergy Intermediate Hives Verified 02/24/25 18:30 ferrous sulfate Allergy Unknown Other (See Verified 02/24/25 18:30 Comment) raspberry Allergy Other (See Verified 02/24/25 18:30 Comment) pineapple AdvReac Intermediate Topical Unverified 02/24/25 18:30 Irritation vancomycin AdvReac Intermediate Other (See Verified 02/24/25 18:30 Comment) Home Medications ?Medication ?Instructions ?Recorded ?Confirmed ?Type metformin 1,000 mg tablet 1,000 mg PO BID 11/09/22 01/14/25 History ropinirole 2 mg tablet 2 mg PO BID 11/09/22 01/14/25 History pantoprazole 40 mg tablet,delayed 40 mg PO BID 12/15/22 01/14/25 History release nystatin 100,000 unit/gram topical 6,000,000 unit topical TID #60 02/05/23 01/14/25 Rx powder grams lactulose 10 gram/15 mL oral 30 g PO TID 06/26/23 01/14/25 History solution polyethylene glycol 3350 17 gram 17 g PO DAILY PRN PRN Constipation 07/01/23 01/14/25 Rx oral powder packet #0 ea oxybutynin chloride 5 mg tablet 5 mg PO BID #60 tabs 11/13/23 01/14/25 Rx semaglutide 0.25 mg or 0.5 mg (2 0.25 mg subcut QWEEK 12/12/23 01/14/25 History mg/3 mL) subcutaneous pen injector (Ozempic) torsemide 20 mg tablet 40 mg PO DAILY 01/23/24 01/14/25 History fluoxetine 40 mg capsule 40 mg PO DAILY 01/24/24 01/14/25 History ondansetron HCl 4 mg tablet 4 mg PO DAILY PRN 04/16/24 01/14/25 History magnesium oxide 400 mg PO DAILY #30 tabs 06/02/24 01/14/25 Rx potassium chloride 20 mEq 20 meq PO TID #90 tabs 06/02/24 01/14/25 Rx tablet,extended release atorvastatin 40 mg tablet 80 mg (2 x 40 mg) PO DAILY #30 tabs 08/20/24 01/14/25 Rx doxepin 10 mg capsule 30 mg PO QHS 10/24/24 01/14/25 History modafinil 200 mg tablet 200 mg PO DAILY 01/11/25 01/14/25 History oxycodone 5 mg tablet 5 mg PO Q6H PRN 01/11/25 01/14/25 History Exam Narrative Exam Narrative: General: Patient appears older than stated age, alert and oriented x 3 and in no acute distress. She is wearing CPAP she is obese. Which is a nighttime treatment for JAYDEN. HEENT: Normocephalic, course and facial features with puffy edema, eyes with pupils equal and reactive light symmetrically, extraocular movement intact and sclera anicteric. Oropharynx with dry mucosa. Poor dentition with missing teeth and discolored teeth. Neck: Supple without JVD. Back: Stooped posture without CVA tenderness. Lungs: Fair aeration clear to percussion with bronchovesicular breath sounds diffusely. No focalizing rales or rhonchi. No expiratory wheeze. Breast: Exam deferred. Heart: Regular rate and rhythm with 4/6 systolic murmur left sternal border. No rubs or gallops. Abdomen: Obese contour, soft and nontender to palpation with no palpable hepatosplenomegaly. Bowel sounds positive all quadrants. Large pannus with no intertriginous rash breakdown which appears chronic. Genitalia/rectal: Exam deferred. Extremities: 1+ pitting edema lower extremities which appears chronic with chronic skin changes, loss of hair and atrophic skin but no erythema, manage abrasion over right knee which is dry otherwise no skin breakdown/ulcerations. No cyanosis or clubbing. Fair capillary refill. Skin: Normal color, warm and dry. Neuro: Cranial nerves II through XII gross intact, no focalizing motor deficits. No tremor. Psych: Flattened affect with depressed mood. No abnormal thought processes. Remote and recent memory grossly intact at time of my exam. Results Imaging Imaging Studies: Exam: CT Head Without Contrast Exam date and time: 02/24/2025 7:44 PM Age: 69 years old Clinical indication: Injury or trauma; Blunt trauma (contusions or hematomas); Consciousness not specified; Injury date: 02/24/25; Can't remember fall COMPARISON: CT HEAD WO 08/16/2024 3:54 PM FINDINGS: Brain: There is no acute intracranial hemorrhage, mass effect or midline shift. No large acute territorial infarct identified. There are patchy regions of hypodensity in the periventricular and subcortical white matter, likely on the basis of chronic microvascular ischemic disease. Cerebral ventricles: The ventricles and sulci are prominent in size, which is at least in part due to global cerebral volume loss. Pituitary gland and sella: No significant change in appearance of 1.2 cm hyperdense round lesion in the pituitary sella, possibly an adenoma or aneurysm. Paranasal sinuses: Visualized sinuses are unremarkable. No fluid levels. Mastoid air cells: Visualized mastoid air cells are well aerated. Bones: No acute fracture. Soft tissues: Unremarkable. IMPRESSION: 1. No acute intracranial hemorrhage, mass effect or midline shift. 2. Stable 1.2 cm pituitary sellar lesion, possibly an adenoma or aneurysm. Unchanged since prior examination. Exam: CT Thoracic Spine Without Contrast Exam date and time: 02/24/2025 7:46 PM Age: 69 years old Clinical indication: Injury or trauma; Blunt trauma (contusions or hematomas); Injury date: 02/24/25; Fall, back pain radiating to L leg TECHNIQUE: Imaging protocol: Computed tomography of the thoracic spine without contrast. Radiation optimization: All CT scans at this facility use at least one of these dose optimization techniques: automated exposure control; mA and/or kV adjustment per patient size (includes targeted exams where dose is matched to clinical indication); or iterative reconstruction. COMPARISON: CT ABDOMEN PELVIS W 11/16/2024 7:19 PM FINDINGS: Bones/joints: Normal alignment of the thoracic vertebral bodies and discs. No acute fracture. Osteoarthritic changes identified at all levels without spondylolysis or spondylolisthesis. No central spinal stenosis or cord compression. Soft tissues: Unremarkable. IMPRESSION: 1. No acute fracture. 2. No central spinal stenosis or cord compression. 3. Osteoarthritic changes at all levels without spondylolysis or spondylolisthesis. PROCEDURE INFORMATION: Exam: CT Lumbar Spine Without Contrast Exam date and time: 02/24/2025 7:46 PM Age: 69 years old Clinical indication: Injury or trauma; Blunt trauma (contusions or hematomas); Injury date: 02/24/25; Fall, back pain radiating to L leg COMPARISON: RF XR LS SPINE 2-3 VIEWS 12/08/2024 11:34 AM FINDINGS: Bones/joints: Normal alignment of the lumbar vertebral bodies and discs. Large Schmorl's node identified in the superior endplate of the L4 vertebral body. Osteoarthritic changes identified at all levels and most pronounced at L3-L4 with endplate sclerosis identified especially in the superior endplate of L4. Superimposed mild old compression deformity of the L4 vertebral body likely as well. Osteoarthritic changes identified at all levels with spondylolysis of the L3-L4 level bilaterally. No central spinal stenosis identified at any of the imaged lumbar levels. Mild neural foraminal narrowing identified at several levels secondary to facet arthropathy. Soft tissues: Unremarkable. IMPRESSION: 1. Findings representing an old mild compression deformity of the L4 vertebral body with changes of osteoarthritis noted at the L3-L4 level. 2. Osteoarthritic changes identified without significant central spinal stenosis. 3. Bilateral spondylolysis at L3-L4. Exam: XR Chest Exam date and time: 02/24/2025 7:57 PM Age: 69 years old Clinical indication: Cough TECHNIQUE: Imaging protocol: Radiologic exam of the chest. Views: 2 views. COMPARISON: CR XR CHEST 2V PA LATERAL 11/16/2024 7:30 PM FINDINGS: Lungs: Pulmonary vascular congestion and mild interstitial edema. Pleural spaces: Unremarkable. No pleural effusion. No pneumothorax. Heart/Mediastinum: Unremarkable. No cardiomegaly. Bones/joints: Unremarkable. IMPRESSION: Pulmonary vascular congestion and mild interstitial edema. Labs 02/24/25 19:29 02/24/25 19:29 Labs: Laboratory Results - last 24 hr 02/24/25 02/24/25 02/24/25 19:29 19:36 19:40 WBC 4.29 L RBC 2.84 L Hgb 6.6 L* Hct 22.7 L MCV 80 MCH 23.2 L MCHC 29.1 L RDW 20.9 H Plt Count 125 L MPV 10.5 Immature Gran % 0.2 Neutrophils % 60.5 Lymphocytes % 17.9 Monocytes % 13.3 Eosinophils % 7.2 Basophils % 0.9 Nucleated RBC % 0.0 Absolute Neutrophils 2.60 Absolute Lymphocytes 0.77 L Absolute Monocytes 0.57 Absolute Eosinophils 0.31 Absolute Basophils 0.04 Sodium 142 Potassium 4.1 Chloride 108 H Carbon Dioxide 30.0 Anion Gap 4.0 BUN 18 Creatinine 0.8 Est GFR (CKD-EPI 2020) 79.71 Glucose 244 H Calcium 8.5 Magnesium 1.9 Total Bilirubin 1.2 H AST 32 ALT 22 Alkaline Phosphatase 217 H Troponin I 15 NT-Pro-B Natriuret Pep 86 Total Protein 5.1 L Albumin 2.2 L TSH 2.24 Urine Color Yellow Urine Clarity Clear Urine pH 6.0 Ur Specific [place] 1.015 Urine Protein Negative Urine Ketones Negative Urine Blood Negative Urine Nitrite Negative Urine Bilirubin Negative Urine Urobilinogen 0.2 Ur Leukocyte Esterase Negative Urine Glucose 250 H COVID-19 Source Nasopharynx SARS-CoV-2 (PCR) Negative Influenza Type A (PCR) Negative Influenza Type B (PCR) Negative RSV (PCR) Negative ABO/Rh Antibody Screen Crossmatch 02/24/25 20:35 WBC RBC Hgb Hct MCV MCH MCHC RDW Plt Count MPV Immature Gran % Neutrophils % Lymphocytes % Monocytes % Eosinophils % Basophils % Nucleated RBC % Absolute Neutrophils Absolute Lymphocytes Absolute Monocytes Absolute Eosinophils Absolute Basophils Sodium Potassium Chloride Carbon Dioxide Anion Gap BUN Creatinine Est GFR (CKD-EPI 2020) Glucose Calcium Magnesium Total Bilirubin AST ALT Alkaline Phosphatase Troponin I NT-Pro-B Natriuret Pep Total Protein Albumin TSH Urine Color Urine Clarity Urine pH Ur Specific [place] Urine Protein Urine Ketones Urine Blood Urine Nitrite Urine Bilirubin Urine Urobilinogen Ur Leukocyte Esterase Urine Glucose COVID-19 Source SARS-CoV-2 (PCR) Influenza Type A (PCR) Influenza Type B (PCR) RSV (PCR) ABO/Rh O Positive Antibody Screen NEGATIVE Crossmatch See Detail Last Vital Signs Temp 36.3 C L 02/24/25 18:22 Pulse 89 02/24/25 18:22 Resp 18 02/24/25 18:22 BP 133/41 L 02/24/25 18:22 Pulse Ox 97 02/24/25 18:22 Time Spent Time spent with Patient: >75 minutes Time was spent: preparing to see the patient(eg.review tests), obtaining and/or reviewing separately otained hiistory, ordering medications,tests, procedures, indepentently interpreting results, counseling the patient and care coordination
[2025-02-24 23:07] LABS: *AMPHETAMINES SCREEN URINE Negative (Negative); *BARBITURATES SCREEN URINE Negative (Negative); *BENZODIAZEPINES SCREEN URINE Negative (Negative); Cannabinoids THC Negative (Negative); Cocaine Screen,Urine Negative (Negative); METHADONE URINE SCREEN Negative (Negative); OPIATES URINE SCREEN Negative (Negative); Tricyclic Antidepressants Negative (Negative)
--- NOTE | 2025-02-24 23:52 | RESPIRATORY ---
Pt has home respironics unit in use w/nasal mask. Auto V 20/12 on room air.
[2025-02-25] VITALS (11 sets, daily range): BP systolic 118–138; BP diastolic 33–54; PULSE 75–95; RESP 14–22; TEMP 36.3–37.1; O2SAT 93–99
[2025-02-25] MEDS: Doxepin 10 MG CAP 30 MG PO (00:56)
[2025-02-25 07:08] LABS: HCT 25.7 % (36.0-46.0); HGB 7.6 g/dL (11.2-15.7); MCH 24.3 pg (27.0-33.0); MCHC 29.6 % (32.0-36.0); MCV 82 fL (80-95); MPV 10.4 fL (8.0-11.0); Platelet Count 110 10^3/uL (130-400); RDW 20.4 % (11.7-14.6); RDW-SD 60.6 fL; WBC 3.87 10^3/uL (4.4-10.8)
--- NOTE | 2025-02-25 07:21 | W.PC.ACHO ---
Registration Status: Primary Language: Preferred Language: ED Information & Data Chief Complaint Fall/Non TraumaCriteria 02/24/25 18:52 Chief Complaint Fall/Non TraumaCriteria 02/24/25 18:44 Triage Note Pt fell at home this 02/24/25 18:22 afternoon and last night. Pt has been having increased dizziness, fatigue and b/l arm and leg weakness. Denies hitting head, but states she blacked out before falling. 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 Excess skin of eyelid Pituitary cyst Hypersomnia GAVE (gastric antral vascular ectasia) JAYDEN (obstructive sleep apnea) Acquired arteriovenous malformation Atypical angina Biliary dyskinesia Lung nodule Submucosal neoplasm of stomach Anemia Dermoid cyst History of peptic ulcer disease Osteoarthritis Pancreatitis Hypertensive disorder Hepatic encephalopathy Edema Atrophy of vagina Atrophic vaginitis Actinic keratosis Pituitary adenoma Restless legs Neoplasm of parotid gland Lumbar spondylosis Lesion of esophagus Dyslipidemia Depressive disorder Crohn's disease Chronic low back pain Anxiety Anemia Cirrhosis SALCIDO (nonalcoholic steatohepatitis) CHF (congestive heart failure) Anasarca (Last Reviewed 02/25/25 @ 06:11 by Devin Carlson) History of oophorectomy, unilateral History of rotator cuff surgery History of total knee arthroplasty History of sleeve gastrectomy History of hysterectomy Most Recent Vital Signs Temperature 36.4 C L 02/25/25 04:05 Temperature Source Tympanic 02/25/25 02:13 Pulse 75 02/25/25 04:05 Pulse Rhythm Regular 02/24/25 23:00 Respiratory Rate 18 02/25/25 04:05 Respiratory Effort Short of Breath 02/24/25 23:00 Respiratory Depth Deep 02/24/25 23:00 Respiratory Pattern Normal 02/24/25 23:00 Blood Pressure 137/54 L 02/25/25 04:05 Blood Pressure Position Supine 02/24/25 18:22 Pulse Oximetry 95 02/25/25 04:05 Oxygen Delivery Method Cpap 02/25/25 04:05 Oxygen Flow Rate 2 02/25/25 02:13 Pain Level 0 02/25/25 03:12 Comment MAP 78 02/25/25 04:05 Allergies Penicillins Allergy (Severe, Verified 02/24/25 18:30) Swelling/Edema tramadol Allergy (Severe, Verified 02/24/25 18:30) Swelling/Edema apricot Allergy (Intermediate, Verified 02/24/25 18:30) Hives apricots, fruit. ferrous sulfate Allergy (Unknown, Verified 02/24/25 18:30) Other (See Comment) raspberry Allergy (Verified 02/24/25 18:30) Other (See Comment) pineapple Adverse Reaction (Intermediate, Unverified 02/24/25 18:30) Topical Irritation vancomycin Adverse Reaction (Intermediate, Verified 02/24/25 18:30) Other (See Comment) Red Man Syndrome Precautions Isolation Standard precaution 02/24/25 18:52 Active Medications Generic Name Dose Route Start Last Admin Trade Name Freq PRN Reason Stop Dose Admin Doxepin HCl 30 mg 02/25/25 00:00 02/25/25 00:56 Doxepin 10 Mg Cap PO 30 mg HS JARETT Administration IV IV Catheter Type [Left Forearm Saline Lock ] IV Catheter Gauge [Left 18 Forearm] Diet Orders Category Date Time Status Diabetes Consistent CHO/Heart Healthy [DIET] Nutrition 02/25/25 Breakfast Active Diagnostics 02/25/25 02/25/25 02/25/25 Range/Units 15:45 09:45 06:30 WBC Pending Pending Pending (4.4-10.8) 10^3/uL RBC Pending Pending Pending (3.93-5.22) 10^6/uL Hgb Pending Pending Pending (11.2-15.7) g/dL Hct Pending Pending Pending (36.0-46.0) % MCV Pending Pending Pending (80-95) fL MCH Pending Pending Pending (27.0-33.0) pg MCHC Pending Pending Pending (32.0-36.0) % RDW Pending Pending Pending (11.7-14.6) % Plt Count Pending Pending Pending (130-400) 10^3/uL MPV Pending Pending Pending (8.0-11.0) fL Immature Gran % % Neutrophils % % Lymphocytes % % Monocytes % % Eosinophils % % Basophils % % Nucleated RBC % (0.0-0.3) % Absolute Neutrophils (1.2-6.7) 10^3/uL Absolute Lymphocytes (1.2-3.4) 10^3/uL Absolute Monocytes (0.1-0.8) 10^3/uL Absolute Eosinophils (0.0-0.7) 10^3/uL Absolute Basophils (0.0-0.2) 10^3/uL PT (9.1-11.1) sec INR (0.9-1.1) APTT (20.6-30.2) sec Sodium Pending (136-145) mmol/L Potassium Pending (3.5-5.1) mmol/L Chloride Pending (98-107) mmol/L Carbon Dioxide Pending (21.0-32.0) mmol/L Anion Gap Pending (3-11) mmol/L BUN Pending (7-18) mg/dL Creatinine Pending (0.55-1.02) mg/dL Est GFR (CKD-EPI 2020) Pending (mL/min/1.73m2) Glucose Pending (74-106) mg/dL Calcium Pending (8.5-10.1) mg/dL Magnesium Pending (1.8-2.4) mg/dL Total Bilirubin Pending (0.2-1.0) mg/dL AST Pending (15-37) U/L ALT Pending (14-59) U/L Alkaline Phosphatase Pending (46-116) U/L Troponin I (<or=51) ng/L NT-Pro-B Natriuret Pep (<300) pg/mL Total Protein Pending (6.4-8.2) g/dL Albumin Pending (3.4-5.0) g/dL TSH (0.36-3.74) uIU/mL Urine Color (Yellow) Urine Clarity (Clear) Urine pH (5-8) Ur Specific [place] (1.005-1.025) Urine Protein (Neg-Trace) mg/dL Urine Ketones (Negative) mg/dL Urine Blood (Negative) Urine Nitrite (Negative) Urine Bilirubin (Negative) Urine Urobilinogen (Up to 0.2) mg/dL Ur Leukocyte Esterase (Negative) Urine Glucose (Negative) mg/dL Urine Opiates Screen (Negative) Urine Methadone Screen (Negative) Ur Barbiturates Screen (Negative) Ur Tricyclics Screen (Negative) Ur Amphetamines Screen (Negative) U Benzodiazepines Scrn (Negative) Urine Cocaine Screen (Negative) Ur THC Screen (Negative) COVID-19 Source SARS-CoV-2 (PCR) (Negative) Influenza Type A (PCR) (Negative) Influenza Type B (PCR) (Negative) RSV (PCR) (Negative) ABO/Rh Antibody Screen Crossmatch 02/24/25 02/24/25 02/24/25 Range/Units 21:45 20:35 19:40 WBC Cancelled (4.4-10.8) 10^3/uL RBC Cancelled (3.93-5.22) 10^6/uL Hgb Cancelled (11.2-15.7) g/dL Hct Cancelled (36.0-46.0) % MCV Cancelled (80-95) fL MCH Cancelled (27.0-33.0) pg MCHC Cancelled (32.0-36.0) % RDW Cancelled (11.7-14.6) % Plt Count Cancelled (130-400) 10^3/uL MPV Cancelled (8.0-11.0) fL Immature Gran % % Neutrophils % % Lymphocytes % % Monocytes % % Eosinophils % % Basophils % % Nucleated RBC % (0.0-0.3) % Absolute Neutrophils (1.2-6.7) 10^3/uL Absolute Lymphocytes (1.2-3.4) 10^3/uL Absolute Monocytes (0.1-0.8) 10^3/uL Absolute Eosinophils (0.0-0.7) 10^3/uL Absolute Basophils (0.0-0.2) 10^3/uL PT (9.1-11.1) sec INR (0.9-1.1) APTT (20.6-30.2) sec Sodium (136-145) mmol/L Potassium (3.5-5.1) mmol/L Chloride (98-107) mmol/L Carbon Dioxide (21.0-32.0) mmol/L Anion Gap (3-11) mmol/L BUN (7-18) mg/dL Creatinine (0.55-1.02) mg/dL Est GFR (CKD-EPI 2020) (mL/min/1.73m2) Glucose (74-106) mg/dL Calcium (8.5-10.1) mg/dL Magnesium (1.8-2.4) mg/dL Total Bilirubin (0.2-1.0) mg/dL AST (15-37) U/L ALT (14-59) U/L Alkaline Phosphatase (46-116) U/L Troponin I (<or=51) ng/L NT-Pro-B Natriuret Pep (<300) pg/mL Total Protein (6.4-8.2) g/dL Albumin (3.4-5.0) g/dL TSH (0.36-3.74) uIU/mL Urine Color Yellow (Yellow) Urine Clarity Clear (Clear) Urine pH 6.0 (5-8) Ur Specific [place] 1.015 (1.005-1.025) Urine Protein Negative (Neg-Trace) mg/dL Urine Ketones Negative (Negative) mg/dL Urine Blood Negative (Negative) Urine Nitrite Negative (Negative) Urine Bilirubin Negative (Negative) Urine Urobilinogen 0.2 (Up to 0.2) mg/dL Ur Leukocyte Esterase Negative (Negative) Urine Glucose 250 H (Negative) mg/dL Urine Opiates Screen Negative (Negative) Urine Methadone Screen Negative (Negative) Ur Barbiturates Screen Negative (Negative) Ur Tricyclics Screen Negative (Negative) Ur Amphetamines Screen Negative (Negative) U Benzodiazepines Scrn Negative (Negative) Urine Cocaine Screen Negative (Negative) Ur THC Screen Negative (Negative) COVID-19 Source SARS-CoV-2 (PCR) (Negative) Influenza Type A (PCR) (Negative) Influenza Type B (PCR) (Negative) RSV (PCR) (Negative) ABO/Rh O Positive Antibody Screen NEGATIVE Crossmatch See Detail 02/24/25 02/24/25 02/24/25 Range/Units 19:36 19:29 19:22 WBC 4.29 L (4.4-10.8) 10^3/uL RBC 2.84 L (3.93-5.22) 10^6/uL Hgb 6.6 L* (11.2-15.7) g/dL Hct 22.7 L (36.0-46.0) % MCV 80 (80-95) fL MCH 23.2 L (27.0-33.0) pg MCHC 29.1 L (32.0-36.0) % RDW 20.9 H (11.7-14.6) % Plt Count 125 L (130-400) 10^3/uL MPV 10.5 (8.0-11.0) fL Immature Gran % 0.2 % Neutrophils % 60.5 % Lymphocytes % 17.9 % Monocytes % 13.3 % Eosinophils % 7.2 % Basophils % 0.9 % Nucleated RBC % 0.0 (0.0-0.3) % Absolute Neutrophils 2.60 (1.2-6.7) 10^3/uL Absolute Lymphocytes 0.77 L (1.2-3.4) 10^3/uL Absolute Monocytes 0.57 (0.1-0.8) 10^3/uL Absolute Eosinophils 0.31 (0.0-0.7) 10^3/uL Absolute Basophils 0.04 (0.0-0.2) 10^3/uL PT 11.6 H (9.1-11.1) sec INR 1.2 H (0.9-1.1) APTT 27.0 (20.6-30.2) sec Sodium 142 (136-145) mmol/L Potassium 4.1 (3.5-5.1) mmol/L Chloride 108 H (98-107) mmol/L Carbon Dioxide 30.0 (21.0-32.0) mmol/L Anion Gap 4.0 (3-11) mmol/L BUN 18 (7-18) mg/dL Creatinine 0.8 (0.55-1.02) mg/dL Est GFR (CKD-EPI 2020) 79.71 (mL/min/1.73m2) Glucose 244 H (74-106) mg/dL Calcium 8.5 (8.5-10.1) mg/dL Magnesium 1.9 (1.8-2.4) mg/dL Total Bilirubin 1.2 H (0.2-1.0) mg/dL AST 32 (15-37) U/L ALT 22 (14-59) U/L Alkaline Phosphatase 217 H (46-116) U/L Troponin I 15 (<or=51) ng/L NT-Pro-B Natriuret Pep 86 (<300) pg/mL Total Protein 5.1 L (6.4-8.2) g/dL Albumin 2.2 L (3.4-5.0) g/dL TSH 2.24 (0.36-3.74) uIU/mL Urine Color (Yellow) Urine Clarity (Clear) Urine pH (5-8) Ur Specific [place] (1.005-1.025) Urine Protein (Neg-Trace) mg/dL Urine Ketones (Negative) mg/dL Urine Blood (Negative) Urine Nitrite (Negative) Urine Bilirubin (Negative) Urine Urobilinogen (Up to 0.2) mg/dL Ur Leukocyte Esterase (Negative) Urine Glucose (Negative) mg/dL Urine Opiates Screen (Negative) Urine Methadone Screen (Negative) Ur Barbiturates Screen (Negative) Ur Tricyclics Screen (Negative) Ur Amphetamines Screen (Negative) U Benzodiazepines Scrn (Negative) Urine Cocaine Screen (Negative) Ur THC Screen (Negative) COVID-19 Source Nasopharynx SARS-CoV-2 (PCR) Negative (Negative) Influenza Type A (PCR) Negative (Negative) Influenza Type B (PCR) Negative (Negative) RSV (PCR) Negative (Negative) ABO/Rh Antibody Screen Crossmatch [id number] Documentation Fingerstick Glucose Start: 02/24/25 18:39 Freq: Status: Complete Protocol: Activity Type Activity Date Activity User E-sign Co-sign Detail Recorded Client Recorded Date Recorded By Document 02/24/25 18:38 BKG DAEMON(5) NVT-BG05 02/24/25 18:39 BKG DAEMON(6) Fingerstick Glucose Start: 02/24/25 21:40 Freq: AC & HS Status: Active Protocol: Activity Type Activity Date Activity User E-sign Co-sign Detail Recorded Client Recorded Date Recorded By Document 02/24/25 22:43 BKG DAEMON(7) NVT-BG05 02/24/25 22:44 BKG DAEMON(8) Intake and Output - 24 Hour Total 02/24/25 18:09 thru 02/25/25 06:12 Intake Total 1995 Balance 1995 Weight 114.9 kg Intake: IV 115 Oral 100 Blood Product 1781 Rbc Leuko Reduced Unit 879 [id number] Rbc Leuko Reduced Unit 902 [id number] Other: Urine Color Light Prema Urine Odor None Comment unable to measure, spilled most and no hat in toilet. Falls Risk Assessment History of Falls Admit Due to Fall 02/24/25 23:00 Contributing Factors Unstable 02/24/25 23:00 Ambulatory Aids Uses ambulatory device + 04/23/25 23:00 Tubes/Lines With any additional score 02/24/25 23:00 Gait Evaluation W/any additional score 02/24/25 23:00 Cognition No cognitive impairment 02/24/25 23:00 Fall Total Score 98 02/24/25 23:00 Level of Risk Maximum Risk 02/24/25 23:00 Problems (Last Reviewed 02/25/25 @ 06:11 by Devin Carlson) Anemia (Chronic) Type 2 diabetes mellitus (Chronic) 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) Notes 02/24/25 23:52 Respiratory by Lynda Vargas Pt has home respironics unit in use w/nasal mask. Auto V 20 on room air. Initialized on 02/24/25 23:52 - END OF NOTE v v v v v v v v v Sending and/or Receiving Nurses: Please use comment section below to note any information pertinent to the patient hand-off not included above. Information / Comments: all questions answered 1 unit started in ED 18g LAC failed ambulation test 1g APAP prior to blood Report received from: naye Hoover @ [id number]
[2025-02-25 07:29] LABS: RBC 3.13 10^6/uL (3.93-5.22)
[2025-02-25 07:31] LABS: ALT 21 U/L (14-59); AST 32 U/L (15-37); Alkaline Phosphatase 173 U/L (46-116); Anion Gap 3.4 mmol/L (3-11); BUN 14 mg/dL (7-18); Bilirubin, Total 1.9 mg/dL (0.2-1.0); CO2 29.6 mmol/L (21.0-32.0); CREATININE 0.7 mg/dL (0.55-1.02); Calcium 8.4 mg/dL (8.5-10.1); Chloride 112 mmol/L (98-107); Estimated GFR 93.56 (mL/min/1.73m2); Glucose 178 mg/dL (74-106); Magnesium 1.8 mg/dL (1.8-2.4); Sodium 145 mmol/L (136-145); Total Protein 4.7 g/dL (6.4-8.2)
[2025-02-25] MEDS: Lactulose 20 GM/30 ML CUP 30 GM PO ×2 (08:02→13:43)
[2025-02-25] MEDS: rOPINIRole 1 MG TAB 2 MG PO (08:03)
[2025-02-25] MEDS: FLUoxetine 20 MG CAP 40 MG PO (08:03)
[2025-02-25] MEDS: Pantoprazole 40 MG TABCR PO (08:03)
[2025-02-25] MEDS: Oxybutynin 5 MG TAB PO (08:04)
[2025-02-25] MEDS: Potassium Chloride 20 MEQ TABCR PO ×2 (08:04→13:43)
[2025-02-25] MEDS: MODAFINIL 200 MG PO (08:04)
[2025-02-25] MEDS: Magnesium Oxide 400 MG TAB PO (08:05)
[2025-02-25] MEDS: Nystatin POWDER 15 GM JAR TP ×2 (08:05→13:43)
[2025-02-25] MEDS: Insulin Aspart 300 UNITS/3 ML PEN SC ×2 (08:06→12:21)
[2025-02-25] MEDS: Normal Saline Flush 10 ML SYR IVP (08:06)
[2025-02-25] MEDS: Torsemide 20 MG TAB 40 MG PO (08:22)
--- NOTE | 2025-02-25 09:22 | PDOC.CMIN ---
Date of service: 02/25/25 Time of Service: 09:22 Care Management Initial Assmt Initial Assessment Reason for Hospitalization: anemia Functional Status/Living Situation Patient Presentation: Re was sitting up in a chair having lunch when CM met with her. She was pleasant in manner and engaged easily with CM, well known to her from many prior hospitalizations. Re shared that her Alexis is again at [facility]. She stated this time it is a permanent placement. She admitted that his care was too much for her and that he is doing well and is actually happy to be there. Re was able to purchase an electric wheelchair and that has improved his quality of life by increasing his mobility. Re also talked about her chronic medical issues. She suffers from recurrent anemia and requires transfusions from time to time. Re reported that she was so weak yesterday she fell at home. At the time her Hgb was 6.6. She was transfused with 2 units last night and her Hgb is now 7.6. She will have another repeat blood test later this afternoon after which she will likely be discharged. Town of Residence: [place] Resides with: Spouse ( Alexis and son Isra) Significant Other/Family: Out of area (some family in [place] Employment Status: Retired Instrumental Activities of Daily Living (ADLs): Independent Medications Medication Management: No Issues/Barriers identified Physical Functioning/Mobility Assistive Device: walker Advance Directives Advance Directives: Do you have an Advance Directive: N 09/23/23 16:39 AD On File at [facility]: N 09/23/23 16:39 Date Asked 02/24/25 02/24/25 21:51 AD Date Reviewed COLST On File at [facility] No 09/11/24 23:35 COLST Date Scanned Code Status Resuscitation Status Full Code Insurance Coverage/Financial Issues Insurance: BC/BS Medicare Advantage Care Team Visit Care Team Role Provider Type Lea Giordano APRN MD [facility] STAFF PHYSICIAN Jefe Coffey Primary Care Provider NON-[facility] STAFF PHYSICIAN JAHAIRA Caban Emergency Provider [facility] Devin Carlson Admit Provider NON-[facility] STAFF PHYSICIAN Attending Provider Discharge Potential Discharge Needs: PCP F/U Appt Anticipated Barriers to Discharge: None Identified Patient/Family Education Needs: Review discharge instructions, discuss Ask Me Three Transportation: Private vehicle Plan: Anticipate Re will be discharged home, possibly with new home health services, when medically cleared. She will follow up with her PCP and plan of care and transport with family. CM will continue to support discharge planning efforts. Social Determinants of Health Screening Will the Patient Participate in the Screening?: Unable to obtain [facility] All Active Problems (Updated 02/25/25 @ 06:20 by Devin Carlson) Anemia (Chronic) Encephalopathy (Chronic) Presumed secondary to chronic liver disease. Chronically elevated ammonia level. On lactulose. 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 Left clavicle Excess skin of eyelid Pituitary cyst Hypersomnia GAVE (gastric antral vascular ectasia) JAYDEN (obstructive sleep apnea) Acquired arteriovenous malformation Atypical angina Biliary dyskinesia Lung nodule Submucosal neoplasm of stomach Anemia Dermoid cyst History of peptic ulcer disease Osteoarthritis Pancreatitis Hypertensive disorder Hepatic encephalopathy Edema Atrophy of vagina Atrophic vaginitis Actinic keratosis Pituitary adenoma Restless legs Neoplasm of parotid gland Lumbar spondylosis Lesion of esophagus Dyslipidemia Depressive disorder Crohn's disease Chronic low back pain Anxiety Anemia Cirrhosis SALCIDO (nonalcoholic steatohepatitis) CHF (congestive heart failure) Anasarca Surgical History History of oophorectomy, unilateral History of rotator cuff surgery bilateral History of total knee arthroplasty bilateral History of sleeve gastrectomy History of hysterectomy Family History Brother Cancer Lung Alcohol use disorder 2 older brothers Social History Smoking/Tobacco Use Status: Never Smoking risk assessment performed?: Yes Alcohol Intake: never Drug use: Never Substance use type: does not use Housing: house Current gender identity: female Do you feel safe at home: Yes Do you feel safe in your relationship?: Yes Additional Social history: Lives with Arslan, and son in [place]. Moved from [place] in 2019. Has a dog and 8 pet birds.
--- NOTE | 2025-02-25 10:00 | PGE_ITS ---
Date of Service Date of service: 02/25/25 Time of Service: 10:00 Assessment and Plan Assessment and plan (1) Anemia: Start date: 02/24/25 Assessment and plan: This is a 69-year-old lady who has frequent hospitalizations usually for either infection with sepsis, respiratory decompensation but today presents with rebound anemia status post recent transfusions and has chronic anemia which is recurrent and assume secondary to GI blood loss though endoscopies have been unrevealing. She is on medical therapy for chronic hepatic encephalopathy taking lactulose with frequent loose stools. She also is on diuretics chronically for CHF which is mostly right-sided and potassium supplement. She is on chronic narcotics and denies any recent sedation with her urine drug screen negative for any other drug use. Her VPMS is appropriate for her prescribed oxycodone. She is responding to IV fluids and blood replacement now with 1 unit packed red blood cells given and second unit of packed red blood cells infusing. If she stabilizes will go home with follow-up with PCP and ongoing evaluation for chronic blood loss. She is not on aspirin, Plavix or chronic anticoagulation. Platelet count is chronically low with her cirrhosis. She was placed on compression stockings for DVT prophylaxis instead of Lovenox/heparin because of her possible bleeding. She is a full code. (2) CHF (congestive heart failure): Assessment and plan: Continue outpatient medical therapy monitoring fluid status. She is not ort hostatic. (3) Type 2 diabetes mellitus: Status: Chronic Assessment and plan: Glucometer measurements before meals and at bedtime with moderate sliding scale short acting insulin coverage while hospitalized. (4) Liver cirrhosis secondary to SALCIDO: Status: Chronic Assessment and plan: Continue lactulose while hospitalized. Monitor lab. (5) JAYDEN (obstructive sleep apnea): Assessment and plan: Home CPAP at night with home settings. (6) Chronic low back pain: Assessment and plan: Continue outpatient pain management monitor for sedation especially with patient having falls. Urine drug screen was negative for any other drug use the patient not having history of misuse of drugs. VPMS was reviewed and was consistent with her outpatient prescribing and use. She does not take her medication at all times and has months without prescription being given and averages 1 tablet/day when prescribed. Exam Narrative Exam Narrative: Constitutional The patient is sitting in bed comfortable, without acute distress HENMT: Facial structures with normal appearance Neck: minimal JVD Neuro:alert and oriented to self, person, place, time and situation. Resp: Normal respiratory pattern, speaks in full sentences, unlabored breathing, clear lung bilaterally w diminished bases Cardio: regular rhythm, S1, S2, murmur, bilateral radial and dorsalis pedis pulses are positive GI: Abdomen is large, not distended, soft and non tender, bowel sounds are present Integumentary: No skin lesions or rash Extremities: moves lower and upper extremities- non-focal Psych: RASS 0, congruent mood and normal affect. Objective Last Vital Signs Temp 36.8 C 02/25/25 07:42 Pulse 81 02/25/25 07:42 Resp 18 02/25/25 07:42 BP 124/49 L 02/25/25 07:42 Pulse Ox 93 02/25/25 07:42 Laboratory Results - last 24 hr 02/24/25 02/24/25 02/24/25 19:22 19:29 19:36 WBC 4.29 L RBC 2.84 L Hgb 6.6 L* Hct 22.7 L MCV 80 MCH 23.2 L MCHC 29.1 L RDW 20.9 H Plt Count 125 L MPV 10.5 Immature Gran % 0.2 Neutrophils % 60.5 Lymphocytes % 17.9 Monocytes % 13.3 Eosinophils % 7.2 Basophils % 0.9 Nucleated RBC % 0.0 Absolute Neutrophils 2.60 Absolute Lymphocytes 0.77 L Absolute Monocytes 0.57 Absolute Eosinophils 0.31 Absolute Basophils 0.04 PT 11.6 H INR 1.2 H APTT 27.0 Sodium 142 Potassium 4.1 Chloride 108 H Carbon Dioxide 30.0 Anion Gap 4.0 BUN 18 Creatinine 0.8 Est GFR (CKD-EPI 2020) 79.71 Glucose 244 H Calcium 8.5 Magnesium 1.9 Total Bilirubin 1.2 H AST 32 ALT 22 Alkaline Phosphatase 217 H Troponin I 15 NT-Pro-B Natriuret Pep 86 Total Protein 5.1 L Albumin 2.2 L TSH 2.24 Urine Color Urine Clarity Urine pH Ur Specific [place] Urine Protein Urine Ketones Urine Blood Urine Nitrite Urine Bilirubin Urine Urobilinogen Ur Leukocyte Esterase Urine Glucose Urine Opiates Screen Urine Methadone Screen Ur Barbiturates Screen Ur Tricyclics Screen Ur Amphetamines Screen U Benzodiazepines Scrn Urine Cocaine Screen Ur THC Screen COVID-19 Source Nasopharynx SARS-CoV-2 (PCR) Negative Influenza Type A (PCR) Negative Influenza Type B (PCR) Negative RSV (PCR) Negative ABO/Rh Antibody Screen Crossmatch 02/24/25 02/24/25 02/24/25 19:40 20:35 21:45 WBC Cancelled RBC Cancelled Hgb Cancelled Hct Cancelled MCV Cancelled MCH Cancelled MCHC Cancelled RDW Cancelled Plt Count Cancelled MPV Cancelled Immature Gran % Neutrophils % Lymphocytes % Monocytes % Eosinophils % Basophils % Nucleated RBC % Absolute Neutrophils Absolute Lymphocytes Absolute Monocytes Absolute Eosinophils Absolute Basophils PT INR APTT Sodium Potassium Chloride Carbon Dioxide Anion Gap BUN Creatinine Est GFR (CKD-EPI 2020) Glucose Calcium Magnesium Total Bilirubin AST ALT Alkaline Phosphatase Troponin I NT-Pro-B Natriuret Pep Total Protein Albumin TSH Urine Color Yellow Urine Clarity Clear Urine pH 6.0 Ur Specific [place] 1.015 Urine Protein Negative Urine Ketones Negative Urine Blood Negative Urine Nitrite Negative Urine Bilirubin Negative Urine Urobilinogen 0.2 Ur Leukocyte Esterase Negative Urine Glucose 250 H Urine Opiates Screen Negative Urine Methadone Screen Negative Ur Barbiturates Screen Negative Ur Tricyclics Screen Negative Ur Amphetamines Screen Negative U Benzodiazepines Scrn Negative Urine Cocaine Screen Negative Ur THC Screen Negative COVID-19 Source SARS-CoV-2 (PCR) Influenza Type A (PCR) Influenza Type B (PCR) RSV (PCR) ABO/Rh O Positive Antibody Screen NEGATIVE Crossmatch See Detail 02/25/25 06:30 WBC 3.87 L RBC 3.13 L Hgb 7.6 L Hct 25.7 L MCV 82 MCH 24.3 L MCHC 29.6 L RDW 20.4 H Plt Count 110 L MPV 10.4 Immature Gran % Neutrophils % Lymphocytes % Monocytes % Eosinophils % Basophils % Nucleated RBC % Absolute Neutrophils Absolute Lymphocytes Absolute Monocytes Absolute Eosinophils Absolute Basophils PT INR APTT Sodium 145 Potassium 4.0 Chloride 112 H Carbon Dioxide 29.6 Anion Gap 3.4 BUN 14 Creatinine 0.7 Est GFR (CKD-EPI 2020) 93.56 Glucose 178 H Calcium 8.4 L Magnesium 1.8 Total Bilirubin 1.9 H AST 32 ALT 21 Alkaline Phosphatase 173 H Troponin I NT-Pro-B Natriuret Pep Total Protein 4.7 L Albumin 2.0 L TSH Urine Color Urine Clarity Urine pH Ur Specific [place] Urine Protein Urine Ketones Urine Blood Urine Nitrite Urine Bilirubin Urine Urobilinogen Ur Leukocyte Esterase Urine Glucose Urine Opiates Screen Urine Methadone Screen Ur Barbiturates Screen Ur Tricyclics Screen Ur Amphetamines Screen U Benzodiazepines Scrn Urine Cocaine Screen Ur THC Screen COVID-19 Source SARS-CoV-2 (PCR) Influenza Type A (PCR) Influenza Type B (PCR) RSV (PCR) ABO/Rh Antibody Screen Crossmatch
[2025-02-25 10:31] LABS: HCT 25.4 % (36.0-46.0); HGB 7.6 g/dL (11.2-15.7); MCH 24.9 pg (27.0-33.0); MCHC 29.9 % (32.0-36.0); MCV 83 fL (80-95); MPV 10.7 fL (8.0-11.0); Platelet Count 107 10^3/uL (130-400); RDW 20.4 % (11.7-14.6); RDW-SD 62.2 fL; WBC 4.02 10^3/uL (4.4-10.8)
[2025-02-25 10:44] LABS: RBC 3.05 10^6/uL (3.93-5.22)
--- NOTE | 2025-02-25 13:43 | IN_ITS ---
PT Notes Visit Reasons: Anemia,CHF,NIDDM,SALCIDO Physical Therapy Initial Evaluation Date: 02/25/2025 Referring Doctor: Lea Giordano NP PT Orders: PT CONSULT: Safety Consult for D/C Precautions: Standard, fall risk Patient Profile/Admitting Diagnosis: Pt is a 69 yo female presented to ED from home via EMS with SOB d/t chronic anemia. Pt received 2 u pRBC. PMHX: Encephalopathy (Chronic) Presumed secondary to chronic liver disease. Chronically elevated ammonia level. On lactulose.Hypomagnesemia (Chronic) Sepsis (Acute) Bacteremia due to Klebsiella pneumoniae (Acute) CHF exacerbation (Acute) Acute renal failure (Acute) Acute coronary syndrome with high troponin (Acute) Sepsis due to Gram-negative organism with septic shock (Acute) Type 2 diabetes mellitus (Chronic) Liver cirrhosis secondary to SALCIDO (Acute) Medical History Hypovolemia Hyperammonemia Encephalopathy Presumed secondary to chronic liver disease. Chronically elevated ammonia level. 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 Left clavicleExcess skin of eyelid Pituitary cyst Hypersomnia GAVE (gastric antral vascular ectasia) JAYDEN (obstructive sleep apnea) Acquired arteriovenous malformation Atypical angina Biliary dyskinesia Lung nodule Submucosal neoplasm of stomach Anemia Dermoid cyst History of peptic ulcer disease Osteoarthritis Pancreatitis Hypertensive disorder Hepatic encephalopathy Edema Atrophy of vagina Atrophic vaginitis Actinic keratosis Pituitary adenoma Restless legs Neoplasm of parotid gland Lumbar spondylosis Lesion of esophagus Dyslipidemia Depressive disorder Crohn's disease Chronic low back pain Anxiety Anemia Cirrhosis SALCIDO (nonalcoholic steatohepatitis) CHF (congestive heart failure) Anasarca Surgical History History of oophorectomy, unilateral History of rotator cuff surgery bilateralHistory of total knee arthroplasty bilateralHistory of sleeve gastrectomy History of hysterectomy Social History/Home Situation: Pt resides in a 2 story home with a ramp to enter. She stays on the first floor and her son resides on the second floor. Pt reports her home is cluttered but is able to use a 4WW within her home.. She states she has 8 birds, 1 rabbit and a dog. She is independent with ADL, ambulation with 4WW. She sleeps in a recliner and has a commode next to her chair. She no longer drives as she has narcolepsy. She reports she walks up the ramp holding the railing. Equipment Owned/DME: commode, ramp to enter, 4WW, FWW Subjective: Pt reports she has had her home decluttered . She states she wishes they would figure out was is wrong with her so she wouldn't have to keep coming back to the hospital. Objective: General Observation: Pleasant female seated in bedside chair. She is agreeable to participate in PT assessment. edema BLE, mild erythema , Left lower leg, pt scratching BLE and chest resulting in abrasion to right farris ( nurse notified) Mental Status: Alert and oriented x 4 Pain: denied ROM: BUE : full AROM all joints BLE : WFL limited by body habitus hip flexion and knee flexion Strength: BUE: full AROM against gravity Right Lower Extremity: hip 3/5, knee 3/5 ankle 3/5 Left Lower Extremity: hip 3/5, knee 3/5 ankle 3/5 Sensation: intact reports toes numb Bed Mobility/Transfers: Supine to sit min A for trunk with HOB at 30 degrees Sit to stand SBA Stand to sit SBA Bed to chair CGA with 4WW Gait: ambulated 25 feet x 2 with 4WW, CGA , slow simone, increased lateral weight shift, impaired step height, impaired step length Balance: Static Sitting: normal Dynamic Sitting: good Static Standing: fair+ Dynamic Standing: Fair without UE support Special Tests: [] Mobility Limitations Standardized Measure [] [facility] AM-PAC 6 clicks Basic Mobility Inpatient Short Form: [] Raw Score: 14 CMS Score: 61.29% Informed Consent/Education: Patient instructed in purpose of PT consult, goals and plan of care.. Assessment: Patient is a 69-year-old female presents with clinical signs and symptoms consistent with current/admitting diagnoses that have resulted to mobility limitations, gait instability, generalized weakness, and impairment of motor control as demonstrated by the following impairment level findings: 1. Decreased strength to BLE major muscle groups 2. Impaired standing balance 3. Decreased functional activity tolerance and standing Impairments are contributing to the following functional limitations: 1. Inability to safely ambulate without assistive device 2. Increase completion time for mobility ADL performance 3. Increased fall risk 4. Decline in bed mobility/transfer skills. Patient is assessed as a moderate complexity based on the following: History: 69-year-old female with impairment level findings, functional limitations, and past medical history as indicated above Examination: Demonstrable impairment in strength, balance, and mobility level with underlying impairments and functional limitations as documented above Presentation: Evolving Decision Making: Moderate Goals: 1. Modified Independent transfers with 4WW 2. Modified Independent ambulation with 4WW > 100 feet 3. Independent HEP Plan of Care/Treatment Plan: 1-2x/day, 7 days/week x 1 week. Plan of care has been reviewed with the TYPE CUTTER providing the service under Physical Therapy direction. Initiate Physical Therapy intervention for strengthening, bed mobility, transfers, gait, balance training, use of assistive device. DISCHARGE RECOMMENDATIONS: Short-term SNF versus HH PT TREATMENT CODE/TIME: 21401, [id number] Thank you for the opportunity to participate in the care of this patient. [facility]
--- NOTE | 2025-02-25 14:43 | W.PM.DS.N ---
Date of service: 02/25/25 Time of Service: 14:44 DS: Diagnosis Discharge Diagnosis (1) Anemia: (2) CHF (congestive heart failure): (3) Type 2 diabetes mellitus: Status: Chronic (4) Liver cirrhosis secondary to GALLAGHER: Status: Chronic (5) JAYDEN (obstructive sleep apnea): (6) Chronic low back pain: Discharge Plan Disposition Patient Disposition: Home W/Home Health Services Condition: Improving Discharge Details Reason For Visit: Anemia,CHF,NIDDM,GALLAGHER Admit Date/Time: 02/24/25 21:34 Admit Provider: Devin Carlson Attending Provider: Devin Carlson Primary Care Provider: Jefe Coffey Hospital Course Hospital Course: 69 year-old female with a PMHx of CHF, atypical angina, submucosal neoplasm of stomach, anemia, peptic ulcer disease, pancreatitis, hypertension, hepatic encephalopathy, edema, pituitary adenoma, Crohn's disease, Gallagher cirrhosis, anasarca, T2DM, multiple falls, GIB, presented to ED on 02/25/2024 via EMS with a chief complaints of weakness, fall , L leg spasm from knee to groin. The patient received 2 units PRBC earlier in February at [facility] for ongoing anemia management and had missed her last f/u CBC. Work-up in the ED was positive for and H&H of 6.6 & 23.6, platelet 125, INR 1.2; chemistry was unremarkable except for total bili at 1.2 and Alk phos at 173. The patient received one unit of PRBC and was admitted by the hospitalist to the medical surgical floor for observation and H&H trending. H&H remained stable around 7.6 & 25.4 X 2 without acute bleeding; stool for occult blood and iron studies still pending. The patient will be discharged home with home health physical therapy and nursing for assistance with medicine management. Follow-up with PCP within 7 days of discharge please. Recommendations for PCP follow-up: CBC trending ( missed her last ordered one outpatient as she did not want to miss her RCT ride) Iron studies f/u Anemia work-up -As per patient EGD/Colonoscopy done a couple months ago Discussed with Dr. Melchor Home Meds and New Rx's Prescriptions: No Action modafinil 200 mg tablet 200 mg PO DAILY oxycodone 5 mg tablet 5 mg PO Q6H PRN lactulose 10 gram/15 mL solution 30 g PO TID Ozempic 0.25 mg or 0.5 mg (2 mg/3 mL) pen injector 0.25 mg subcut QWEEK Rx Instructions: for 4 weeks metformin 1,000 mg Tablet 1,000 mg PO BID ropinirole 2 mg Tablet 2 mg PO BID nystatin 100,000 unit/gram Powder 6,000,000 unit topical TID Qty: 60 0RF Rx Instructions: apply to reddened skin folds atorvastatin 40 mg Tablet 80 mg PO DAILY Qty: 30 0RF doxepin 10 mg capsule 30 mg PO QHS Patient Comments: 20 mg once a day pantoprazole 40 mg Tablet,Delayed Release (Dr/Ec) 40 mg PO BID polyethylene glycol 3350 17 gram Powder In Packet 17 g PO DAILY PRN PRN (Reason: Constipation) Qty: 0 0RF oxybutynin chloride 5 mg Tablet 5 mg PO BID Qty: 60 0RF torsemide 20 mg tablet 40 mg PO DAILY Patient Comments: TAKE TWO TABLETS BY MOUTH EVERY DAY fluoxetine 40 mg capsule 40 mg PO DAILY ondansetron HCl 4 mg tablet 4 mg PO DAILY PRN Patient Comments: TAKE ONE TABLET BY MOUTH EVERY DAY NEEDED FOR NAUSEA potassium chloride 20 mEq tablet extended release 20 meq PO TID Qty: 90 0RF Rx Instructions: with meals magnesium oxide 400 mg magnesium tablet 400 mg PO DAILY Qty: 30 0RF Discharge Instructions Stand Alone Forms: Nursing Discharge Form Referrals: Jefe Coffey [Primary Care Provider] - 03/01/25 11:20 am (follow-up with PCP within 7 days of discharge, please) Activity:: Activity as Tolerated Equipment/Supplies:: Walker Diet:: heart healthy diabetic DS: Summary Time Spent with Patient providing and/or coordinating discharge services: Greater than 30 minutes Status at Discharge Functional status at discharge: uses cane/walker Overall status at discharge: patient is progressing back to baseline Mental Status: mental status grossly normal Speech and Movement: speech and movement normal Mood: congruent mood Affect: normal affect Quality:SDOH Health Related Social Needs: Health related social needs details non med compliant Exam Narrative Exam Narrative: Constitutional The patient is sitting in bed comfortable, without acute distress Neck: minimal JVD Neuro:alert and oriented to self, person, place, time and situation, non-focal Resp: Normal respiratory pattern, speaks in full sentences, unlabored breathing, clear lung bilaterally w diminished bases Cardio: regular rhythm, S1, S2, murmur, bilateral radial and dorsalis pedis pulses are positive GI: Abdomen is large, not distended, soft and non tender, bowel sounds are present Extremities: moves lower and upper extremities- non-focal Psych: RASS 0, congruent mood and normal affect. Psych Mental Status: mental status grossly normal Speech and Movement: speech and movement normal Mood: congruent mood Affect: normal affect DS: Data Vitals/I&O Vitals and I&O: Vital Signs Temperature 37.1 C 02/25/25 11:48 Temperature Source Temporal Artery Scan 02/25/25 11:48 Pulse 82 02/25/25 11:48 Pulse Rhythm Regular 02/24/25 23:00 Respiratory Rate 14 02/25/25 11:48 Respiratory Effort Short of Breath 02/24/25 23:00 Respiratory Depth Deep 02/24/25 23:00 Respiratory Pattern Normal 02/24/25 23:00 Blood Pressure 129/44 L 02/25/25 11:48 Blood Pressure Position Supine 02/24/25 18:22 Pulse Oximetry 94 02/25/25 11:48 Oxygen Delivery Method Room Air 02/25/25 11:48 Oxygen Flow Rate 0 02/25/25 11:48 Pain Level 0 02/25/25 03:12 Comment RN notified of BP 02/25/25 07:42 Intake & Output 02/24/25 02/25/25 02/25/25 23:59 11:59 23:59 Intake Total 372 / 372 1744 / 1744 Output Total 900 / 2400 1500 / 2400 Balance 372 / 372 844 / -656 -1500 / -656 Weight 114.9 kg 114.9 kg Intake: IV 100 / 100 15 / 15 Oral 220 / 220 Blood Product 272 / 272 1509 / 1509 Rbc Leuko Reduced Unit 879 / 879 [id number] Rbc Leuko Reduced Unit 272 / 272 630 / 630 [id number] Output: Urine 900 / 2400 1500 / 2400 Other: Urine Color Light Prema Yellow Urine Appearance Clear Clear Urine Odor None Normal Comment unable to measure, spilled most and no hat in toilet. Data Completed and Pending Labs on day of discharge: Labs from last 24 hours 02/25/25 02/25/25 02/25/25 Unknown 15:45 09:55 WBC Pending 4.02 L RBC Pending 3.05 L Hgb Pending 7.6 L Hct Pending 25.4 L MCV Pending 83 MCH Pending 24.9 L MCHC Pending 29.9 L RDW Pending 20.4 H Plt Count Pending 107 L MPV Pending 10.7 Immature Gran % Neutrophils % Lymphocytes % Monocytes % Eosinophils % Basophils % Nucleated RBC % Absolute Neutrophils Absolute Lymphocytes Absolute Monocytes Absolute Eosinophils Absolute Basophils PT INR APTT Sodium Potassium Chloride Carbon Dioxide Anion Gap BUN Creatinine Est GFR (CKD-EPI 2020) Glucose Calcium Magnesium Total Bilirubin AST ALT Alkaline Phosphatase Troponin I NT-Pro-B Natriuret Pep Total Protein Albumin TSH Urine Color Urine Clarity Urine pH Ur Specific Shobonier Urine Protein Urine Ketones Urine Blood Urine Nitrite Urine Bilirubin Urine Urobilinogen Ur Leukocyte Esterase Urine Glucose Urine Opiates Screen Urine Methadone Screen Ur Barbiturates Screen Ur Tricyclics Screen Ur Amphetamines Screen U Benzodiazepines Scrn Urine Cocaine Screen Ur THC Screen COVID-19 Source SARS-CoV-2 (PCR) Influenza Type A (PCR) Influenza Type B (PCR) RSV (PCR) Add-On Test Request Pending ABO/Rh Antibody Screen Crossmatch 02/25/25 02/24/25 02/24/25 06:30 21:45 20:35 WBC 3.87 L Cancelled RBC 3.13 L Cancelled Hgb 7.6 L Cancelled Hct 25.7 L Cancelled MCV 82 Cancelled MCH 24.3 L Cancelled MCHC 29.6 L Cancelled RDW 20.4 H Cancelled Plt Count 110 L Cancelled MPV 10.4 Cancelled Immature Gran % Neutrophils % Lymphocytes % Monocytes % Eosinophils % Basophils % Nucleated RBC % Absolute Neutrophils Absolute Lymphocytes Absolute Monocytes Absolute Eosinophils Absolute Basophils PT INR APTT Sodium 145 Potassium 4.0 Chloride 112 H Carbon Dioxide 29.6 Anion Gap 3.4 BUN 14 Creatinine 0.7 Est GFR (CKD-EPI 2020) 93.56 Glucose 178 H Calcium 8.4 L Magnesium 1.8 Total Bilirubin 1.9 H AST 32 ALT 21 Alkaline Phosphatase 173 H Troponin I NT-Pro-B Natriuret Pep Total Protein 4.7 L Albumin 2.0 L TSH Urine Color Urine Clarity Urine pH Ur Specific Shobonier Urine Protein Urine Ketones Urine Blood Urine Nitrite Urine Bilirubin Urine Urobilinogen Ur Leukocyte Esterase Urine Glucose Urine Opiates Screen Urine Methadone Screen Ur Barbiturates Screen Ur Tricyclics Screen Ur Amphetamines Screen U Benzodiazepines Scrn Urine Cocaine Screen Ur THC Screen COVID-19 Source SARS-CoV-2 (PCR) Influenza Type A (PCR) Influenza Type B (PCR) RSV (PCR) Add-On Test Request ABO/Rh O Positive Antibody Screen NEGATIVE Crossmatch See Detail 02/24/25 02/24/25 02/24/25 19:40 19:36 19:29 WBC 4.29 L RBC 2.84 L Hgb 6.6 L* Hct 22.7 L MCV 80 MCH 23.2 L MCHC 29.1 L RDW 20.9 H Plt Count 125 L MPV 10.5 Immature Gran % 0.2 Neutrophils % 60.5 Lymphocytes % 17.9 Monocytes % 13.3 Eosinophils % 7.2 Basophils % 0.9 Nucleated RBC % 0.0 Absolute Neutrophils 2.60 Absolute Lymphocytes 0.77 L Absolute Monocytes 0.57 Absolute Eosinophils 0.31 Absolute Basophils 0.04 PT INR APTT Sodium 142 Potassium 4.1 Chloride 108 H Carbon Dioxide 30.0 Anion Gap 4.0 BUN 18 Creatinine 0.8 Est GFR (CKD-EPI 2020) 79.71 Glucose 244 H Calcium 8.5 Magnesium 1.9 Total Bilirubin 1.2 H AST 32 ALT 22 Alkaline Phosphatase 217 H Troponin I 15 NT-Pro-B Natriuret Pep 86 Total Protein 5.1 L Albumin 2.2 L TSH 2.24 Urine Color Yellow Urine Clarity Clear Urine pH 6.0 Ur Specific Shobonier 1.015 Urine Protein Negative Urine Ketones Negative Urine Blood Negative Urine Nitrite Negative Urine Bilirubin Negative Urine Urobilinogen 0.2 Ur Leukocyte Esterase Negative Urine Glucose 250 H Urine Opiates Screen Negative Urine Methadone Screen Negative Ur Barbiturates Screen Negative Ur Tricyclics Screen Negative Ur Amphetamines Screen Negative U Benzodiazepines Scrn Negative Urine Cocaine Screen Negative Ur THC Screen Negative COVID-19 Source Nasopharynx SARS-CoV-2 (PCR) Negative Influenza Type A (PCR) Negative Influenza Type B (PCR) Negative RSV (PCR) Negative Add-On Test Request ABO/Rh Antibody Screen Crossmatch 02/24/25 19:22 WBC RBC Hgb Hct MCV MCH MCHC RDW Plt Count MPV Immature Gran % Neutrophils % Lymphocytes % Monocytes % Eosinophils % Basophils % Nucleated RBC % Absolute Neutrophils Absolute Lymphocytes Absolute Monocytes Absolute Eosinophils Absolute Basophils PT 11.6 H INR 1.2 H APTT 27.0 Sodium Potassium Chloride Carbon Dioxide Anion Gap BUN Creatinine Est GFR (CKD-EPI 2020) Glucose Calcium Magnesium Total Bilirubin AST ALT Alkaline Phosphatase Troponin I NT-Pro-B Natriuret Pep Total Protein Albumin TSH Urine Color Urine Clarity Urine pH Ur Specific Shobonier Urine Protein Urine Ketones Urine Blood Urine Nitrite Urine Bilirubin Urine Urobilinogen Ur Leukocyte Esterase Urine Glucose Urine Opiates Screen Urine Methadone Screen Ur Barbiturates Screen Ur Tricyclics Screen Ur Amphetamines Screen U Benzodiazepines Scrn Urine Cocaine Screen Ur THC Screen COVID-19 Source SARS-CoV-2 (PCR) Influenza Type A (PCR) Influenza Type B (PCR) RSV (PCR) Add-On Test Request ABO/Rh Antibody Screen Crossmatch PFSH All Active Problems (Updated 02/25/25 @ 06:20 by Devin Carlson) Anemia (Chronic) Encephalopathy (Chronic) Presumed secondary to chronic liver disease. Chronically elevated ammonia level. On lactulose. 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 Left clavicle Excess skin of eyelid Pituitary cyst Hypersomnia GAVE (gastric antral vascular ectasia) JAYDEN (obstructive sleep apnea) Acquired arteriovenous malformation Atypical angina Biliary dyskinesia Lung nodule Submucosal neoplasm of stomach Anemia Dermoid cyst History of peptic ulcer disease Osteoarthritis Pancreatitis Hypertensive disorder Hepatic encephalopathy Edema Atrophy of vagina Atrophic vaginitis Actinic keratosis Pituitary adenoma Restless legs Neoplasm of parotid gland Lumbar spondylosis Lesion of esophagus Dyslipidemia Depressive disorder Crohn's disease Chronic low back pain Anxiety Anemia Cirrhosis GALLAGHER (nonalcoholic steatohepatitis) CHF (congestive heart failure) Anasarca Surgical History History of oophorectomy, unilateral History of rotator cuff surgery bilateral History of total knee arthroplasty bilateral History of sleeve gastrectomy History of hysterectomy Family History Brother Cancer Lung Alcohol use disorder 2 older brothers Social History Smoking/Tobacco Use Status: Never Smoking risk assessment performed?: Yes Alcohol Intake: never Drug use: Never Substance use type: does not use Housing: house Current gender identity: female Do you feel safe at home: Yes Do you feel safe in your relationship?: Yes Additional Social history: Lives with Arslan, and son in [place]. Moved from [place] in 2020. Has a dog and 8 pet birds. Time Spent with Patient Time Spent with Patient: 70-84 minutes4 Time was spent: preparing to see the patient(eg.review tests), obtaining and/or reviewing separately otained hiistory, ordering medications,tests, procedures, referring, communicating with other health resident care technician, indepentently interpreting results, counseling the patient and care coordination
[2025-02-25 15:16] LABS: Lab Add On Test DONE
--- NOTE | 2025-02-25 15:34 | PDOC.HHF2F ---
Home Health Referral Home Health Orders Clinical synopsis of why skilled professionals are needed: 69 year-old female with a PMHx of CHF, atypical angina, submucosal neoplasm of stomach, anemia, peptic ulcer disease, pancreatitis, hypertension, hepatic encephalopathy, edema, pituitary adenoma, Crohn's disease, Gallagher cirrhosis, anasarca, T2DM, multiple falls, GIB, presented to ED on 02/25/2024 via EMS with a chief complaints of weakness, fall , L leg spasm from knee to groin. The patient received 2 units PRBC earlier in February at [facility] for ongoing anemia management and had missed her last f/u CBC. Work-up in the ED was positive for and H&H of 6.6 & 23.6, platelet 125, INR 1.2; chemistry was unremarkable except for total bili at 1.2 and Alk phos at 173. The patient received one unit of PRBC and was admitted by the hospitalist to the medical surgical floor for observation and H&H trending. H&H remained stable around 7.6 & 25.4 X 2 without acute bleeding; stool for occult blood and iron studies still pending. The patient will be discharged home with home health physical therapy and nursing for assistance with medicine management. Follow-up with PCP within 7 days of discharge please. Recommendations for PCP follow-up: CBC trending ( missed her last ordered one outpatient as she did not want to miss her RCT ride) Iron studies f/u Anemia work-up -As per patient EGD/Colonoscopy done a couple months ago Discussed with Dr. Melchor Registered Nurse: Check all that apply Instruct on new or changed medication(s)/assess compliance: Ordered Assess for exacerbation of medical condition, instruct patient/caregivers on signs and symptoms to report for early detection: Ordered Physical Therapist: Check all that apply Increase strength & endurance for safe mobility at home: Ordered To design/establish home maintenance program: Ordered Fall reduction therapy program for patient with history of frequent falls: Ordered Home safety evaluation and teaching/gait training including stair management (if applicable): Ordered Public Health Veterinarian: Assist with community resources: Ordered Assist with senior living care planning: Ordered Home Bound Status Requires the aid of supportive device (check all that apply): Walker Describe why leaving home would require a considerable and taxing effort: Requires frequent rest periods Encounter Date and Reason: I certify that a FTF encounter for this patient was performed on February 25, 2025 and that such encounter was related to the primary reason the patient requires home health services. The encounter was conducted in the following manner: By me as the certifying physician, PHYSICIAN CREDENTIALING SPECIALIST, PA or By an inpatient physician, PHYSICIAN CREDENTIALING SPECIALIST or PA during an inpatient stay who communicated findings to me, Certification And Authentication I certify that I composed the above information based on my clinical judgment relating to this patient's medical condition and, if applicable, clinical findings communicated to me by the NPP or inpatient physician who performed the FTF encounter. Name of Provider that will be monitoring home health services: Jefe Coffey
[2025-02-25 15:40] LABS: Iron 56 ug/dL (50-170); Total Iron Binding Capacity 332 ug/dL (250-450); Transferrin Sat 17 % (15-50)
--- NOTE | 2025-02-25 15:53 | PDOC.CMDIS ---
Date of service: 02/25/25 Time of Service: 15:53 LACE Index Scoring Tool Questions: Length of Stay (in days): 1 Was the patient admitted via the E.D.?: Yes Comorbidities: Previous M.I., Congestive Heart Failure, Chronic Pulmonary Disease, Any Tumor and Liver or Renal Disease E.D. Visits: 4 Answers: Total Score: 13 Risk of Readmission: High Risk Care Management Discharge Plan Reason for Hospitalization: anemia Discharge Plan: Re will be discharged home with new home health services for nursing and PT. She will follow up with her community providers and plan of care and transport with her son Isra. Patient/Family Education Needs: review discharge instructions, limitations, follow up plan and discuss Ask Me Three Services Needed at Discharge: Home Health Care Services SDOH Health Related Social Needs: Health related social needs details non med compliant
[2025-02-25 16:02] LABS: HCT 28.4 % (36.0-46.0); HGB 8.5 g/dL (11.2-15.7); MCHC 29.9 % (32.0-36.0); MCV 83 fL (80-95); MPV 10.6 fL (8.0-11.0); Platelet Count 117 10^3/uL (130-400); RBC 3.44 10^6/uL (3.93-5.22); RDW-SD 60.9 fL; WBC 4.45 10^3/uL (4.4-10.8)
[2025-02-25 16:26] LABS: MCH 24.7 pg (27.0-33.0); RDW 20.4 % (11.7-14.6)
[2025-02-26 08:17] LABS: Transferrin 262 mg/dL (201-352)
== END 2025-02-25 16:47 | disposition home health service (06) | DRG 812 ==
LOC: ER 21:51 → MS 22:55
PROVIDERS: Admitting Provider Family Medicine; Emergency Provider Physician Assistant; PCP Family Medicine; Responsible Provider Nurse Practitioner Acute Care; Visit Provider Family Medicine
DX: D50.0 Iron deficiency anemia secondary to blood loss (chronic) (principal); K50.90 Crohn's disease, unspecified, without complications; Z68.42 Body mass index [BMI] 45.0-49.9, adult; E11.9 Type 2 diabetes mellitus without complications; K74.69 Other cirrhosis of liver; E66.01 Morbid (severe) obesity due to excess calories; K76.82 Hepatic encephalopathy; S80.211A Abrasion, right knee, initial encounter; G25.81 Restless legs syndrome; I11.0 Hypertensive heart disease with heart failure; F32.A Depression, unspecified; M54.50 Low back pain, unspecified; R29.6 Repeated falls; G47.33 Obstructive sleep apnea (adult) (pediatric); R53.1 Weakness; G89.29 Other chronic pain; K31.819 Angiodysplasia of stomach and duodenum without bleeding; Z96.653 Presence of artificial knee joint, bilateral; E78.5 Hyperlipidemia, unspecified; W19.XXXA Unspecified fall, initial encounter; F41.9 Anxiety disorder, unspecified; Z98.84 Bariatric surgery status; Z87.11 Personal history of peptic ulcer disease; Z79.891 Long term (current) use of opiate analgesic; Z79.85 Long-term (current) use of injectable non-insulin antidiabetic drugs; Z79.84 Long term (current) use of oral hypoglycemic drugs
CPT/HCPCS: 00123; 36415; 36416; 36430; 80053; 80307; 82962; 85027; 86850; 86900; 86901; 86920; 87637; 93005; 96365; 97162; 97530; 99285; 70450; 71046; 72128; 72131; 81003; 83540; 83550; 83735; 83880; 84443; 84466; 84484; 85025; 85610; 85730; 93010; 99223; 99239; J0131; J1815; P9016

== ENCOUNTER 2025-03-21 00:56 | Inpatient (IN) | payer MEDICARE, SELFPAY ==
[2025-03-21] VITALS (67 sets, daily range): BP systolic 38–143; BP diastolic 21–71; PULSE 72–94; RESP 10–22; TEMP 36.2–37; O2SAT 87–100
--- NOTE | 2025-03-21 00:45 | RT.EKG_ITS ---
APPROVED REPORT Exam: Resting ECG Reason for Exam: shortness of breath Patient Location: E HR:84 bpm ECG Measurements Heart Rate 84 AXIS HI 156 P 65 QRSd 91 QRS 56 QT 420 T 40 QTc 496 Conclusion Sinus rhythm...normal P axis, V-rate 60- 99 Probable left atrial enlargement...P >50mS, <-0.10mV V1 PHysician: no stemi
--- NOTE | 2025-03-21 01:00 | DI.RAD_ITS ---
Exam(s) XR PORTABLE CHEST AP EXAM: XR PORTABLE CHEST AP CLINICAL HISTORY: SOB TECHNIQUE: 2D digital imaging was performed of the chest. One image was obtained. An AP view was ob tained. COMPARISON: CR,XR XR CHEST 2V PA LATERAL from 11/16/2024 CR,XR XR CHEST 2V PA LATERAL from 02/24/2025 FINDINGS: MEDIASTINUM: Normal. HEART: Mildly enlarged. PULMONARY VASCULATURE: There is unchanged prominence of the pulmonary vasculature. LUNGS: No focal consolidating infiltrates are present. Mild prominence of the interstitium. PLEURAL SPACE: No pleural effusion or pneumothorax. BONE:Within normal limits for the patient's age. There is an old left clavicular fracture deformity. OTHER FINDINGS:Normal. IMPRESSION: 1. Mildly prominent interstitial markings. This can be seen with interstitial edema or possibly pneu monitis. 2. No focal consolidating infiltrates are present. 3. The preliminary [facility] report was reviewed. DATA REPOSITORY: RADIATION DOSE DELIVERED:
[2025-03-21] MEDS: Furosemide 40 MG/4 ML VIAL IVP (01:32)
[2025-03-21 01:36] LABS: Abs Immature Grans 0.02 10^3/uL (0.0-0.06); Absolute Basophil Count 0.04 10^3/uL (0.0-0.2); Absolute Eosinophil Count 0.27 10^3/uL (0.0-0.7); Absolute Lymphocyte Count 0.83 10^3/uL (1.2-3.4); Absolute Neutrophil Count 2.33 10^3/uL (1.2-6.7); BE (Venous) 10 mmol/L (-2-3); Eosinophils % 6.6 %; HCO3 (Venous) 34 mmol/L (23-28); Immature Grans % 0.5 %; Lymphocytes % 20.3 %; MCH 23.8 pg (27.0-33.0); MCHC 29.7 % (32.0-36.0); MCV 80 fL (80-95); MPV 11.1 fL (8.0-11.0); Monocytes % 14.7 %; Neutrophils % 56.9 %; O2 Sat (Venous) 75 %; Platelet Count 103 10^3/uL (130-400); RDW 18.4 % (11.7-14.6); RDW-SD 53.9 fL; TCO2 (Venous) 33 mmol/L (24-29); WBC 4.09 10^3/uL (4.4-10.8); pCO2 (Venous) 50 mmHg (41-51); pH (Venous) 7.45 (7.31-7.41); pO2 (Venous) 43 mmHg
[2025-03-21 01:39] LABS: HCT 20.9 % (36.0-46.0); HGB 6.2 g/dL (11.2-15.7)
[2025-03-21 01:54] LABS: INR 1.2 (0.9-1.1); PTT Activated 26.1 sec (20.6-30.2); Prothrombin Time 11.5 sec (9.1-11.1)
[2025-03-21 01:56] LABS: COVID-19 PCR Negative (Negative); Influenza A PCR Negative (Negative); Influenza B PCR Negative (Negative); RSV PCR Negative (Negative); Source Nasopharynx
[2025-03-21 02:03] LABS: ALT 22 U/L (14-59); AST 30 U/L (15-37); Albumin 2.2 g/dL (3.4-5.0); Alkaline Phosphatase 219 U/L (46-116); Anion Gap 1.4 mmol/L (3-11); BUN 29 mg/dL (7-18); CO2 33.6 mmol/L (21.0-32.0); CREATININE 1.6 mg/dL (0.55-1.02); Calcium 8.4 mg/dL (8.5-10.1); Chloride 101 mmol/L (98-107); Glucose 318 mg/dL (74-106); NT-proBNP 103 pg/mL (<300); Potassium 3.6 mmol/L (3.5-5.1); Sodium 136 mmol/L (136-145); Total Protein 5.1 g/dL (6.4-8.2); Troponin I 9 ng/L (<or=51)
--- NOTE | 2025-03-21 03:14 | W.ED.GENAD ---
Discharge Plan Disposition Patient Disposition: Admit to [facility] Discharge Details Chief Complaint: SOB Clinical Impression: Anemia, CHF exacerbation, Acute renal failure Primary Care Provider: Jefe Coffey ED Provider: Yo Lopez Home Meds and New Rx's Prescriptions: No Action oxycodone 5 mg tablet 5 mg PO Q6H PRN lactulose 10 gram/15 mL solution 30 g PO TID metformin 1,000 mg Tablet 1,000 mg PO BID ropinirole 2 mg Tablet 2 mg PO TID nystatin 100,000 unit/gram Powder 6,000,000 unit topical TID Qty: 60 0RF Rx Instructions: apply to reddened skin folds atorvastatin 40 mg Tablet 80 mg PO DAILY Qty: 30 0RF doxepin 10 mg capsule 30 mg PO QHS Patient Comments: 20 mg once a day pantoprazole 40 mg Tablet,Delayed Release (Dr/Ec) 40 mg PO BID oxybutynin chloride 5 mg Tablet 5 mg PO BID Qty: 60 0RF torsemide 20 mg tablet 40 mg PO DAILY Patient Comments: TAKE TWO TABLETS BY MOUTH EVERY DAY fluoxetine 40 mg capsule 40 mg PO DAILY ondansetron HCl 4 mg tablet 4 mg PO DAILY PRN Patient Comments: TAKE ONE TABLET BY MOUTH EVERY DAY NEEDED FOR NAUSEA magnesium oxide 400 mg magnesium tablet 400 mg PO DAILY Qty: 30 0RF sulfamethoxazole-trimethoprim 800-160 mg tablet 1 tab PO BID levofloxacin 750 mg tablet 750 mg PO DAILY Patient Comments: TAKE ONE TABLET BY MOUTH EVERY DAY glipizide 5 mg tablet 5 mg PO DAILY amlodipine 5 mg tablet 5 mg PO DAILY prednisone 20 mg tablet PO DAILY Patient Comments: TAKE THREE TABLETS BY MOUTH EVERY DAY FOR 5 DAYS THEN TAKE TWO TABLETS BY MOUTH EVERY DAY FOR 5 DAYS THEN TAKE ONE TABLET BY MOUTH EVERY DAY Rx Instructions: tapered dose. 40mg one more day then 20mg daily for 5 days Jardiance 10 mg tablet 10 mg PO DAILY potassium chloride 20 mEq tablet extended release 20 meq PO DAILY Rx Instructions: with meals HPI General Date/Time Provider Initiated Documentation: 03/21/25 01:00. HPI Narrative: This is a 69-year-old female with a past medical history of congestive heart failure with a preserved ejection fraction with last echo on 08/17/2024 showing 60% EF, submucosal neoplasm of the stomach, (GAVE) gastric antral vascular ectasia, esophagitis desiccant superficialis peptic ulcer disease, pancreatitis, pituitary adenoma, SALCIDO, type 2 diabetes mellitus, who presents today for mild shortness of breath. Patient states that she has been feeling short of breath all day. She normally takes 40 of furosemide regularly, and has been taking these as prescribed. She denies any severe chest pain but does admit to a very mild amount of chest tightness. She has noticed increased swelling in her lower extremities. Shortness of breath is worse with exertion, worse when she lays down. She denies any other complaints. Of note she states that she did go to [facility] about a week ago and was diagnosed with a urinary tract infection. She was started on an antibiotic, but she is uncertain as to what it was. No other complaints. No other modifying factors. Related Data Home Medications ?Medication ?Instructions ?Recorded ?Confirmed metformin 1,000 mg tablet 1,000 mg PO BID 11/09/22 03/21/25 ropinirole 2 mg tablet 2 mg PO TID 11/09/22 03/21/25 pantoprazole 40 mg tablet,delayed 40 mg PO BID 12/15/22 03/21/25 release nystatin 100,000 unit/gram topical 6,000,000 unit topical TID #60 02/05/23 03/21/25 powder grams lactulose 10 gram/15 mL oral 30 g PO TID 06/26/23 03/21/25 solution oxybutynin chloride 5 mg tablet 5 mg PO BID #60 tabs 11/13/23 03/21/25 torsemide 20 mg tablet 40 mg PO DAILY 01/23/24 02/25/25 fluoxetine 40 mg capsule 40 mg PO DAILY 01/24/24 03/21/25 ondansetron HCl 4 mg tablet 4 mg PO DAILY PRN 04/16/24 03/21/25 magnesium oxide 400 mg PO DAILY #30 tabs 06/02/24 03/21/25 atorvastatin 40 mg tablet 80 mg (2 x 40 mg) PO DAILY #30 tabs 08/20/24 03/21/25 doxepin 10 mg capsule 30 mg PO QHS 10/24/24 03/21/25 oxycodone 5 mg tablet 5 mg PO Q6H PRN 01/11/25 03/21/25 amlodipine 5 mg tablet 5 mg PO DAILY 03/21/25 03/21/25 empagliflozin 10 mg tablet 10 mg PO DAILY 03/21/25 03/21/25 (Jardiance) glipizide 5 mg tablet 5 mg PO DAILY 03/21/25 03/21/25 levofloxacin 750 mg tablet 750 mg PO DAILY 03/21/25 03/21/25 potassium chloride 20 mEq 20 meq PO DAILY 03/21/25 03/21/25 tablet,extended release prednisone 20 mg tablet mg PO DAILY 03/21/25 sulfamethoxazole 800 1 tab PO BID 03/21/25 03/21/25 mg-trimethoprim 160 mg tablet Previous Rx's ?Medication ?Instructions ?Recorded nystatin 100,000 unit/gram topical 6,000,000 unit topical TID #60 02/05/23 powder grams oxybutynin chloride 5 mg tablet 5 mg PO BID #60 tabs 11/13/23 magnesium oxide 400 mg PO DAILY #30 tabs 06/02/24 atorvastatin 40 mg tablet 80 mg (2 x 40 mg) PO DAILY #30 tabs 08/20/24 Allergies Allergy/AdvReac Type Severity Reaction Status Date / Time Penicillins Allergy Severe Swelling/Ed Verified 03/21/25 01:08 sophie tramadol Allergy Severe Swelling/Ed Verified 03/21/25 01:08 sophie apricot Allergy Intermediate Hives Verified 03/21/25 01:08 ferrous sulfate Allergy Unknown Other (See Verified 03/21/25 01:08 Comment) raspberry Allergy Other (See Verified 03/21/25 01:08 Comment) pineapple AdvReac Intermediate Topical Unverified 03/21/25 01:08 Irritation vancomycin AdvReac Intermediate Other (See Verified 03/21/25 01:08 Comment) General Stated Complaint: SOB CHELA: 3 Exam Narrative Exam Narrative: 1.Const: Well-nourished, Well-developed, appearing stated age 2.Eyes: PERRL, no conjunctival injection, and symmetrical lids. 3.ENT: Atraumatic external nose and ears. Moist MM. Neck: Symmetric, trachea midline, No thyromegaly. 4.CVS: +S1/S2, Peripheral pulses 2+ and equal in all extremities. Brisk capillary refill in all extremities. 5.RESP: Unlabored respiratory effort. Mild crackles. No wheezes or rhonchi. 6.GI: Soft, Nontender/Nondistended, No hepatosplenomegaly. No guarding or rebound. 7.MSK: Normocephalic/Atraumatic, Extremities w/o deformity or ttp No cyanosis or clubbing, Normal movement of all extremities. +2 pitting edema bilaterally. 8.Skin: Warm, Dry. No rashes or lesions. 9.Neuro: biomechanical engineer II-XII grossly intact. Sensation grossly intact, no focal neurologic deficits. 10.Psych: (AAO) x3. Appropriate mood and affect Course Vital Signs Vital signs: Vital Signs Temperature 37.0 C 03/21/25 00:58 Pulse 92 H 03/21/25 00:58 Respiratory Rate 19 03/21/25 00:58 Blood Pressure 124/31 L 03/21/25 00:58 Pulse Oximetry 100 03/21/25 00:58 Temperature 36.3 C L 03/21/25 02:58 Temperature Source Temporal Artery Scan 03/21/25 01:05 Pulse 76 03/21/25 02:58 Pulse 88 03/21/25 01:50 Respiratory Rate 14 03/21/25 02:58 Respiratory Effort Normal, Non-Labored 03/21/25 01:05 Respiratory Depth Normal 03/21/25 01:05 Respiratory Pattern Normal 03/21/25 01:05 Blood Pressure 112/32 L 03/21/25 02:58 Blood Pressure Mean 66 03/21/25 01:47 Blood Pressure Position Supine 03/21/25 01:05 Pulse Oximetry 97 03/21/25 02:58 Oxygen Delivery Method Nasal Cannula 03/21/25 02:58 Oxygen Flow Rate 2 03/21/25 02:58 Pain Level 0 03/21/25 01:05 Lab/Test Results Lab/Test Results: Laboratory Tests Range/Units 03/21/25 03/21/25 03/21/25 01:15 01:30 01:42 WBC (4.4-10.8) 10^3/uL 4.09 L RBC (3.93-5.22) 10^6/uL 2.60 L Hgb (11.2-15.7) g/dL 6.2 L* Hct (36.0-46.0) % 20.9 L* MCV (80-95) fL 80 MCH (27.0-33.0) pg 23.8 L MCHC (32.0-36.0) % 29.7 L RDW (11.7-14.6) % 18.4 H Plt Count (130-400) 10^3/uL 103 L MPV (8.0-11.0) fL 11.1 H Immature Gran % % 0.5 Neutrophils % % 56.9 Lymphocytes % % 20.3 Monocytes % % 14.7 Eosinophils % % 6.6 Basophils % % 1.0 Nucleated RBC % (0.0-0.3) % 0.0 Absolute Neutrophils (1.2-6.7) 10^3/uL 2.33 Absolute Lymphocytes (1.2-3.4) 10^3/uL 0.83 L Absolute Monocytes (0.1-0.8) 10^3/uL 0.60 Absolute Eosinophils (0.0-0.7) 10^3/uL 0.27 Absolute Basophils (0.0-0.2) 10^3/uL 0.04 PT (9.1-11.1) sec 11.5 H INR (0.9-1.1) 1.2 H APTT (20.6-30.2) sec 26.1 VBG pH (7.31-7.41) 7.45 H VBG pCO2 (41-51) mmHg 50 VBG pO2 mmHg 43 VBG HCO3 (23-28) mmol/L 34 H VBG Total CO2 (24-29) mmol/L 33 H VBG O2 Saturation % 75 VBG Base Excess (-2-3) mmol/L 10 H Sodium (136-145) mmol/L 136 Potassium (3.5-5.1) mmol/L 3.6 Chloride (98-107) mmol/L 101 Carbon Dioxide (21.0-32.0) mmol/L 33.6 H Anion Gap (3-11) mmol/L 1.4 L BUN (7-18) mg/dL 29 H Creatinine (0.55-1.02) mg/dL 1.6 H Est GFR (CKD-EPI 2020) (mL/min/1.73m2) 34.70 Glucose (74-106) mg/dL 318 H Calcium (8.5-10.1) mg/dL 8.4 L Total Bilirubin (0.2-1.0) mg/dL 1.0 AST (15-37) U/L 30 ALT (14-59) U/L 22 Alkaline Phosphatase (46-116) U/L 219 H Troponin I (<or=51) ng/L 9 NT-Pro-B Natriuret Pep (<300) pg/mL 103 Total Protein (6.4-8.2) g/dL 5.1 L Albumin (3.4-5.0) g/dL 2.2 L COVID-19 Source Nasopharynx SARS-CoV-2 (PCR) (Negative) Negative Influenza Type A (PCR) (Negative) Negative Influenza Type B (PCR) (Negative) Negative RSV (PCR) (Negative) Negative ABO/Rh O Positive Antibody Screen NEGATIVE Crossmatch See Detail Medical Decision Making This is a 69-year-old female with a past medical history of congestive heart failure with a preserved ejection fraction with last echo on 08/17/2024 showing 60% EF, submucosal neoplasm of the stomach, (GAVE) gastric antral vascular ectasia, esophagitis desiccant superficialis peptic ulcer disease, pancreatitis, pituitary adenoma, SALCIDO, type 2 diabetes mellitus, who presents today for mild shortness of breath. Patient states that she has been feeling short of breath all day. She normally takes 40 of furosemide regularly, and has been taking these as prescribed. She denies any severe chest pain but does admit to a very mild amount of chest tightness. She has noticed increased swelling in her lower extremities. Shortness of breath is worse with exertion, worse when she lays down. She denies any other complaints. Of note she states that she did go to [facility] about a week ago and was diagnosed with a urinary tract infection. She was started on an antibiotic, but she is uncertain as to what it was. No other complaints. No other modifying factors. Exam demonstrates well-appearing female, oxygenation normal. No respiratory distress. Mild crackles in lung bello, +2 pitting edema in the lower extremities. Differential is highest for CHF exacerbation, less likely pneumonia or COPD. Cardiac etiology on the differential but also less likely given symptoms. Will evaluate for these etiologies, monitor closely and reassess. 3:30 AM Laboratory workup has returned, hemoglobin is down to 6.2 which is a 2 point drop in the last 24 days. She denies any melena, hematochezia, or recent bleed. She denies any dark or tarry stool. She does admit to mild chronic epigastric pain, but states that this is unchanged. No melena currently on exam. We will give Protonix, famotidine and GI cocktail. Will give 2 units of PRBCs. I did reach out to [facility] to discuss the case with gastroenterology. [facility] is not able to acquire them at this time, they have asked that we call back in the morning. No indication for emergent procedure elicitation at this time as she has no evidence of an active GI bleed. No melena or hemorrhage. Pending the remainder of her laboratory workup. 4:16 AM Patient's renal function has notably been diminished, creatinine is now 1.6, it was 0.9 just last month. GFR is gone from 98 to 34. Serial troponins are normal, COVID flu and RSV is normal. I did look at [facility]'s records, urine cultures did return positive, and the patient was started on Bactrim. I do believe this may be a significant cause of the ANTHONY at this time with her age and risk factors. Sensitivities are present for juliana quinolones, we will start the patient on Cipro. She does have penicillin allergies and there are notable resistances in the urine cultures to cephalosporins. Chest x-ray shows evidence of congestive heart failure, proBNP is normal but with the evidence of CHF on x-ray, and the pitting edema this does correlate with her symptoms of feeling short of breath. Symptoms appear inconsistent with PE. No pleuritic chest pain, no tachycardia or hypotension. She normally takes 40 of turosemide daily, and will give 40 here. I do feel that mild diuresis is needed due to the presence of CHF on the chest x-ray and her symptomatology, however aggressive diuresis may lack of benefit secondary to her ANTHONY. With the patient's anemia, ANTHONY, and CHF I do feel that admission is indicated for further management. Discussed the case with the hospitalist Dr. Carlson, he agrees with the assessment and plan. I will place admission orders on his behalf at his request. I have extensively reviewed the treatment plan with the patient. I have addressed all patient concerns at this time. I have also discussed the plan with the admitting physician and they agree with the current assessment and plan and have agreed to assume responsibility for the patient. All parties demonstrate verbal understanding and agreement with our assessment and plan at this time. The documentation in this chart was dictated using [employer] dictation software. Please excuse any dictation errors. Quality:SDOH Health Related Social Needs: Health related social needs details non med compliant Critical Care Time Critical Care Time Critical Care Time: Yes Total Critical Care Time: 45 Attestation: Upon my evaluation, this patient had a high probability of imminent or life-threatening deterioration, which required my direct attention, intervention, and personal management. I have personally provided 45 minutes of critical care time exclusive of time spent on separately billable procedures. Time includes review of laboratory data, radiology results, discussion with consultants, and monitoring for potential decompensation. Interventions were performed as documented. PFSH All Active Problems (Updated 03/21/25 @ 04:21 by Yo Lopez DO) Anemia (Chronic) Encephalopathy (Chronic) Presumed secondary to chronic liver disease. Chronically elevated ammonia level. On lactulose. 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 Left clavicle Excess skin of eyelid Pituitary cyst Hypersomnia GAVE (gastric antral vascular ectasia) JAYDEN (obstructive sleep apnea) Acquired arteriovenous malformation Atypical angina Biliary dyskinesia Lung nodule Submucosal neoplasm of stomach Anemia Dermoid cyst History of peptic ulcer disease Osteoarthritis Pancreatitis Hypertensive disorder Hepatic encephalopathy Edema Atrophy of vagina Atrophic vaginitis Actinic keratosis Pituitary adenoma Restless legs Neoplasm of parotid gland Lumbar spondylosis Lesion of esophagus Dyslipidemia Depressive disorder Crohn's disease Chronic low back pain Anxiety Anemia Cirrhosis SALCIDO (nonalcoholic steatohepatitis) CHF (congestive heart failure) Anasarca Surgical History History of oophorectomy, unilateral History of rotator cuff surgery bilateral History of total knee arthroplasty bilateral History of sleeve gastrectomy History of hysterectomy Family History Brother Cancer Lung Alcohol use disorder 2 older brothers Social History Smoking/Tobacco Use Status: Never Smoking risk assessment performed?: Yes Alcohol Intake: never Drug use: Never Substance use type: does not use Housing: house Current gender identity: female Do you feel safe at home: Yes Do you feel safe in your relationship?: Yes Additional Social history: Lives with Arslan, and son in [place]. Moved from [place] in 2019. Has a dog and 8 pet birds.
--- NOTE | 2025-03-21 03:21 | DI.[facility]_ITS ---
PROCEDURE INFORMATION: Exam: XR Chest Exam date and time: 03/21/2025 2:15 AM Age: 69 years old Clinical indication: Shortness of breath TECHNIQUE: Imaging protocol: Radiologic exam of the chest. Views: 1 view. COMPARISON: CR XR CHEST 2V PA LATERAL 02/24/2025 7:57 PM FINDINGS: Lungs: Pulmonary vascular congestion. Mildly increased interstitial markings. Pleural spaces: No large pleural effusion seen. Heart/Mediastinum: Enlarged cardiac silhouette, magnified by AP technique. Bones/joints: No acute abnormality. IMPRESSION: Enlarged cardiac silhouette with pulmonary vascular congestion and mild interstitial prominence, suggesting possible heart failure/fluid overload. Please correlate clinically. Dictated and Authenticated by: Giovanna Ford MD. Orderin John Ram MD
[2025-03-21 03:40] LABS: Troponin I 9 ng/L (<or=51)
[2025-03-21] MEDS: MYLANTA 30 ML, LIDOCAINE 2% VISCOUS UD 15 ML PO (04:35)
[2025-03-21] MEDS: Pantoprazole 40 MG VIAL IVP ×2 (04:36→08:22)
[2025-03-21] MEDS: Famotidine 20 MG/2 ML VIAL IVP (04:36)
[2025-03-21] MEDS: CIPROFLOXACIN 400 MG/200 ML BAG 200 MG IVPB ×2 (05:14→17:04)
--- NOTE | 2025-03-21 05:43 | W.PC.ACHO ---
Registration Status: Primary Language: Preferred Language: ED Information & Data Chief Complaint SOB 03/21/25 03:19 Triage Note BIBA from home, pt reports 03/21/25 00:58 ongoing SOB for most of the day, worse tonight. describes as heaviness. also reports increased BLE edema , has been taking diuretics but not urinating as much. Being treated for a UTI since Saturday. sleeps with cpap machine. seen recently here for some internal bleeding. 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 Excess skin of eyelid Pituitary cyst Hypersomnia GAVE (gastric antral vascular ectasia) JAYDEN (obstructive sleep apnea) Acquired arteriovenous malformation Atypical angina Biliary dyskinesia Lung nodule Submucosal neoplasm of stomach Anemia Dermoid cyst History of peptic ulcer disease Osteoarthritis Pancreatitis Hypertensive disorder Hepatic encephalopathy Edema Atrophy of vagina Atrophic vaginitis Actinic keratosis Pituitary adenoma Restless legs Neoplasm of parotid gland Lumbar spondylosis Lesion of esophagus Dyslipidemia Depressive disorder Crohn's disease Chronic low back pain Anxiety Anemia Cirrhosis SALCIDO (nonalcoholic steatohepatitis) CHF (congestive heart failure) Anasarca (Last Reviewed 02/25/25 @ 06:11 by Devin Carlson) History of oophorectomy, unilateral History of rotator cuff surgery History of total knee arthroplasty History of sleeve gastrectomy History of hysterectomy Most Recent Vital Signs Temperature 36.4 C 03/21/25 05:18 Temperature Source Temporal Artery Scan 03/21/25 01:05 Pulse 74 03/21/25 05:31 Pulse 74 03/21/25 05:31 Respiratory Rate 13 03/21/25 05:31 Respiratory Effort Normal, Non-Labored 03/21/25 01:05 Respiratory Depth Normal 03/21/25 01:05 Respiratory Pattern Normal 03/21/25 01:05 Blood Pressure 132/46 L 03/21/25 05:30 Blood Pressure Mean 73 03/21/25 05:30 Blood Pressure Position Supine 03/21/25 01:05 Pulse Oximetry 98 03/21/25 05:31 Oxygen Delivery Method Nasal Cannula 03/21/25 05:18 Oxygen Flow Rate 2 03/21/25 05:18 Pain Level 0 03/21/25 01:05 Allergies Penicillins Allergy (Severe, Verified 03/21/25 01:08) Swelling/Edema tramadol Allergy (Severe, Verified 03/21/25 01:08) Swelling/Edema apricot Allergy (Intermediate, Verified 03/21/25 01:08) Hives apricots, fruit. ferrous sulfate Allergy (Unknown, Verified 03/21/25 01:08) Other (See Comment) raspberry Allergy (Verified 03/21/25 01:08) Other (See Comment) pineapple Adverse Reaction (Intermediate, Unverified 03/21/25 01:08) Topical Irritation vancomycin Adverse Reaction (Intermediate, Verified 03/21/25 01:08) Other (See Comment) Red Man Syndrome Precautions Isolation Standard precaution 03/21/25 01:05 IV IV Catheter Type [] Peripheral IV IV Catheter Type [Right Peripheral IV Antecubital] IV Catheter Gauge [] 20 IV Catheter Gauge [Right 20 Antecubital] Diagnostics 03/21/25 03/21/25 03/21/25 Range/Units 04:07 03:18 01:42 WBC (4.4-10.8) 10^3/uL RBC (3.93-5.22) 10^6/uL Hgb (11.2-15.7) g/dL Hct (36.0-46.0) % MCV (80-95) fL MCH (27.0-33.0) pg MCHC (32.0-36.0) % RDW (11.7-14.6) % Plt Count (130-400) 10^3/uL MPV (8.0-11.0) fL Immature Gran % % Neutrophils % % Lymphocytes % % Monocytes % % Eosinophils % % Basophils % % Nucleated RBC % (0.0-0.3) % Absolute Neutrophils (1.2-6.7) 10^3/uL Absolute Lymphocytes (1.2-3.4) 10^3/uL Absolute Monocytes (0.1-0.8) 10^3/uL Absolute Eosinophils (0.0-0.7) 10^3/uL Absolute Basophils (0.0-0.2) 10^3/uL PT (9.1-11.1) sec INR (0.9-1.1) APTT (20.6-30.2) sec VBG pH (7.31-7.41) VBG pCO2 (41-51) mmHg VBG pO2 mmHg VBG HCO3 (23-28) mmol/L VBG Total CO2 (24-29) mmol/L VBG O2 Saturation % VBG Base Excess (-2-3) mmol/L Sodium (136-145) mmol/L Potassium (3.5-5.1) mmol/L Chloride (98-107) mmol/L Carbon Dioxide (21.0-32.0) mmol/L Anion Gap (3-11) mmol/L BUN (7-18) mg/dL Creatinine (0.55-1.02) mg/dL Est GFR (CKD-EPI 2020) (mL/min/1.73m2) Glucose (74-106) mg/dL Calcium (8.5-10.1) mg/dL Total Bilirubin (0.2-1.0) mg/dL AST (15-37) U/L ALT (14-59) U/L Alkaline Phosphatase (46-116) U/L Troponin I Pending 9 (<or=51) ng/L NT-Pro-B Natriuret Pep (<300) pg/mL Total Protein (6.4-8.2) g/dL Albumin (3.4-5.0) g/dL COVID-19 Source SARS-CoV-2 (PCR) (Negative) Influenza Type A (PCR) (Negative) Influenza Type B (PCR) (Negative) RSV (PCR) (Negative) ABO/Rh O Positive Antibody Screen NEGATIVE Crossmatch See Detail 03/21/25 03/21/25 Range/Units 01:30 01:15 WBC 4.09 L (4.4-10.8) 10^3/uL RBC 2.60 L (3.93-5.22) 10^6/uL Hgb 6.2 L* (11.2-15.7) g/dL Hct 20.9 L* (36.0-46.0) % MCV 80 (80-95) fL MCH 23.8 L (27.0-33.0) pg MCHC 29.7 L (32.0-36.0) % RDW 18.4 H (11.7-14.6) % Plt Count 103 L (130-400) 10^3/uL MPV 11.1 H (8.0-11.0) fL Immature Gran % 0.5 % Neutrophils % 56.9 % Lymphocytes % 20.3 % Monocytes % 14.7 % Eosinophils % 6.6 % Basophils % 1.0 % Nucleated RBC % 0.0 (0.0-0.3) % Absolute Neutrophils 2.33 (1.2-6.7) 10^3/uL Absolute Lymphocytes 0.83 L (1.2-3.4) 10^3/uL Absolute Monocytes 0.60 (0.1-0.8) 10^3/uL Absolute Eosinophils 0.27 (0.0-0.7) 10^3/uL Absolute Basophils 0.04 (0.0-0.2) 10^3/uL PT 11.5 H (9.1-11.1) sec INR 1.2 H (0.9-1.1) APTT 26.1 (20.6-30.2) sec VBG pH 7.45 H (7.31-7.41) VBG pCO2 50 (41-51) mmHg VBG pO2 43 mmHg VBG HCO3 34 H (23-28) mmol/L VBG Total CO2 33 H (24-29) mmol/L VBG O2 Saturation 75 % VBG Base Excess 10 H (-2-3) mmol/L Sodium 136 (136-145) mmol/L Potassium 3.6 (3.5-5.1) mmol/L Chloride 101 (98-107) mmol/L Carbon Dioxide 33.6 H (21.0-32.0) mmol/L Anion Gap 1.4 L (3-11) mmol/L BUN 29 H (7-18) mg/dL Creatinine 1.6 H (0.55-1.02) mg/dL Est GFR (CKD-EPI 2020) 34.70 (mL/min/1.73m2) Glucose 318 H (74-106) mg/dL Calcium 8.4 L (8.5-10.1) mg/dL Total Bilirubin 1.0 (0.2-1.0) mg/dL AST 30 (15-37) U/L ALT 22 (14-59) U/L Alkaline Phosphatase 219 H (46-116) U/L Troponin I 9 (<or=51) ng/L NT-Pro-B Natriuret Pep 103 (<300) pg/mL Total Protein 5.1 L (6.4-8.2) g/dL Albumin 2.2 L (3.4-5.0) g/dL COVID-19 Source Nasopharynx SARS-CoV-2 (PCR) Negative (Negative) Influenza Type A (PCR) Negative (Negative) Influenza Type B (PCR) Negative (Negative) RSV (PCR) Negative (Negative) ABO/Rh Antibody Screen Crossmatch Intake and Output - 24 Hour Total 03/21/25 00:53 thru 03/21/25 04:48 Intake Total 281 Balance 281 Weight 116.12 kg Intake: Blood Product 281 Unit 281 Falls Risk Assessment History of Falls Previous History 03/21/25 01:05 Contributing Factors Impairments 03/21/25 01:05 Ambulatory Aids Uses ambulatory device + 03/21/25 01:05 Tubes/Lines With any additional score 03/21/25 01:05 Gait Evaluation W/any additional score 03/21/25 01:05 Cognition No cognitive impairment 03/21/25 01:05 Fall Total Score 88 03/21/25 01:05 Level of Risk Maximum Risk 03/21/25 01:05 Problems (Last Reviewed 02/25/25 @ 06:11 by Devin Carlson) Anemia (Chronic) CHF exacerbation (Acute) Acute renal failure (Acute) v v v v v v v v v Sending and/or Receiving Nurses: Please use comment section below to note any information pertinent to the patient hand-off not included above. Information / Comments: Report taken from [facility] [facility] OPERATORALEX Pena, patient is AO x 3. Has diagnosis of ANTHONY, failure to thrive,CHF and UTI. Has edema on lower extremities. IV Cipro was given. On goingh 2nd unit of Blood transfusion. Has H/H 6.2 22.9. All questions answered appropriately. Report received from:
--- NOTE | 2025-03-21 06:25 | W.PM.HP.N ---
Date of service: 03/21/25 Time of Service: 06:25 Assessment and Plan Assessment and plan (1) CHF exacerbation: Start date: 03/21/25 Status: Acute Assessment and plan: This is a 69-year-old lady who has frequent hospitalizations for complications of her chronic medical problems presenting with increasing edema and weight gain at home with increasing shortness of breath becoming hypoxic with exacerbation of CHF. 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 She also received 40 mg of IV Lasix in the ED. Chest x-ray was consistent with pulmonary vascular overload though BNP was normal. She was acutely anemic from her chronic blood loss from her GI tract and had a hemoglobin below 7 g/dL prompting transfusion of 2 units of packed red blood cells with her symptomatic anemia. 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 Patient urine culture did grow a pathogen sensitive to ciprofloxacin which was initiated in the ED. Follow-up urine and urine culture was performed. He will be continued on her usual dose of torsemide 40 mg p.o. since she has received double that dose a day prior to admission and IV Lasix in the ED. If needed she will have increased torsemide. Her hospital stay. She may do well off Bactrim with resolution of her ANTHONY and her usual diuresis. Her plans are to return home to her son. She is a full code. (2) Anemia: Status: Chronic Assessment and plan: Patient has chronic GI blood loss being seen at [facility] but to be seen in [facility] soon because of persistence of blood loss and recurrent anemia. She is acutely anemic and symptomatic and will be transfused 2 units of packed red blood cells. Watch for fluid overload. Continue follow-up with specialty care. (3) Acute renal failure: Start date: 03/21/25 Status: Acute Assessment and plan: Possibly facilitated by Bactrim for UTI treatment. Patient did also take extra torsemide the day prior to admission. Monitor as we continue diuresis and repletion of blood product. (4) UTI (urinary tract infection): Start date: 03/21/25 Status: Acute Assessment and plan: Acute UTI with patient having pathogen sensitive to Cipro which will be continued IV and converted to oral therapy for discharge. Avoid Bactrim because of ANTHONY on this treatment and being a possible side effect. (5) Encephalopathy: Status: Chronic Assessment and plan: Continue outpatient lactulose treatment. (6) Type 2 diabetes mellitus: Status: Chronic Assessment and plan: Hold outpatient therapy except for Jardiance and glucometer measurements before meals and at bedtime with moderate sliding scale short acting insulin coverage while hospitalized. (7) GAVE (gastric antral vascular ectasia): Assessment and plan: Continue follow-up with [facility] with plans to go to [facility] for second opinion. (8) Acquired arteriovenous malformation: Assessment and plan: Continue GI follow-up as stated. (9) Chronic low back pain: Assessment and plan: Patient is on chronic oxycodone as needed with an average of 2 a day with this being consistent with review of VPMS. She does not appear to be high risk for chronic misuse and is not on benzodiazepines. Urine drug screen was not performed with patient at baseline mentation. Oxycodone will be continued as needed during hospital stay. (10) JAYDEN (obstructive sleep apnea): Assessment and plan: Continue home CPAP. Patient is not chronically on oxygen therapy at home. History of Present Illness History of Present Illness Chief Complaint: Peripheral edema with increasing shortness of breath. Narrative: This is a 69-year-old female patient who has frequent hospitalizations for exacerbation of her chronic medical illnesses. She recent was seen at [facility] for a UTI with her PCP located at [facility]. She has allergy to penicillin noted placed on Bactrim which has been taken for the last couple of days. She presented to the ED with progressive dyspnea and orthopnea as well as peripheral edema. She is usually on torsemide 40 mg daily and took an extra dose the day prior to presentation. This did not seem to help her symptoms and she reported to the ED locally. He was found to be in acute CHF and anemic with a hemoglobin below 7 g/dL requiring transfusion of 2 units packed red blood cells in the ED. She was also given additional IV Lasix dose of 40 mg. Imaging revealed probable exacerbation of CHF and lab did reveal a normal BNP but elevation in her creatinine with ANTHONY. This was thought to be possibly secondary to use of Bactrim. The patient was less short of breath with these treatments and did not receive extra fluid with her ANTHONY being given 2 units of packed red blood cells. She had mild respiratory alkalosis with her hypoxemia and did require oxygen supplementation with no oxygen usually given at home. The glucose was elevated she does have diabetes treated at home. Her PT/INR was slightly elevated with cirrhosis but liver functions and total bilirubin were normal. Viral screening was negative. The patient will be admitted for completion of transfusion of packed red blood cells with follow-up lab and monitoring while continue diuresis. Also renal function will be monitored without further infusion of fluid because of the CHF unless necessary. She is producing urine. She is a full code. Review of Systems Narrative: 13 point review of systems otherwise unrevealing or stable. [facility] All Active Problems (Updated 03/21/25 @ 06:45 by Devin Carlson) UTI (urinary tract infection) (Acute) Anemia (Chronic) Encephalopathy (Chronic) Presumed secondary to chronic liver disease. Chronically elevated ammonia level. On lactulose. 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 Left clavicle Excess skin of eyelid Pituitary cyst Hypersomnia GAVE (gastric antral vascular ectasia) JAYDEN (obstructive sleep apnea) Acquired arteriovenous malformation Atypical angina Biliary dyskinesia Lung nodule Submucosal neoplasm of stomach Anemia Dermoid cyst History of peptic ulcer disease Osteoarthritis Pancreatitis Hypertensive disorder Hepatic encephalopathy Edema Atrophy of vagina Atrophic vaginitis Actinic keratosis Pituitary adenoma Restless legs Neoplasm of parotid gland Lumbar spondylosis Lesion of esophagus Dyslipidemia Depressive disorder Crohn's disease Chronic low back pain Anxiety Anemia Cirrhosis SALCIDO (nonalcoholic steatohepatitis) CHF (congestive heart failure) Anasarca Surgical History History of oophorectomy, unilateral History of rotator cuff surgery bilateral History of total knee arthroplasty bilateral History of sleeve gastrectomy History of hysterectomy Family History Brother Cancer Lung Alcohol use disorder 2 older brothers Social History Smoking/Tobacco Use Status: Never Smoking risk assessment performed?: Yes Alcohol Intake: never Drug use: Never Substance use type: does not use Housing: house Current gender identity: female Do you feel safe at home: Yes Do you feel safe in your relationship?: Yes Additional Social history: Lives with Arslan, and son in [place]. Moved from [place] in 2019. Has a dog and 8 pet birds. Meds Allergies and Home Medications Allergies Allergy/AdvReac Type Severity Reaction Status Date / Time Penicillins Allergy Severe Swelling/Ed Verified 03/21/25 01:08 sophie tramadol Allergy Severe Swelling/Ed Verified 03/21/25 01:08 sophie apricot Allergy Intermediate Hives Verified 03/21/25 01:08 ferrous sulfate Allergy Unknown Other (See Verified 03/21/25 01:08 Comment) raspberry Allergy Other (See Verified 03/21/25 01:08 Comment) pineapple AdvReac Intermediate Topical Unverified 03/21/25 01:08 Irritation vancomycin AdvReac Intermediate Other (See Verified 03/21/25 01:08 Comment) Home Medications ?Medication ?Instructions ?Recorded ?Confirmed ?Type metformin 1,000 mg tablet 1,000 mg PO BID 11/09/22 03/21/25 History ropinirole 2 mg tablet 2 mg PO TID 11/09/22 03/21/25 History pantoprazole 40 mg tablet,delayed 40 mg PO BID 12/15/22 03/21/25 History release nystatin 100,000 unit/gram topical 6,000,000 unit topical TID #60 02/05/23 03/21/25 Rx powder grams lactulose 10 gram/15 mL oral 30 ml PO TID 06/26/23 03/21/25 History solution oxybutynin chloride 5 mg tablet 5 mg PO BID #60 tabs 11/13/23 03/21/25 Rx torsemide 20 mg tablet 40 mg PO DAILY 01/23/24 03/21/25 History fluoxetine 40 mg capsule 40 mg PO DAILY 01/24/24 03/21/25 History ondansetron HCl 4 mg tablet 4 mg PO DAILY PRN 04/16/24 03/21/25 History magnesium oxide 400 mg PO DAILY #30 tabs 06/02/24 03/21/25 Rx atorvastatin 40 mg tablet 80 mg (2 x 40 mg) PO DAILY #30 tabs 08/20/24 03/21/25 Rx doxepin 10 mg capsule 30 mg PO QHS 10/24/24 03/21/25 History oxycodone 5 mg tablet 5 mg PO Q6H PRN 01/11/25 03/21/25 History amlodipine 5 mg tablet 5 mg PO DAILY 03/21/25 03/21/25 History empagliflozin 10 mg tablet 10 mg PO DAILY 03/21/25 03/21/25 History (Jardiance) glipizide 5 mg tablet 5 mg PO DAILY 03/21/25 03/21/25 History levofloxacin 750 mg tablet 750 mg PO DAILY 03/21/25 03/21/25 History potassium chloride 20 mEq 20 meq PO DAILY 03/21/25 03/21/25 History tablet,extended release prednisone 20 mg tablet 40 mg PO DAILY 03/21/25 03/21/25 History sulfamethoxazole 800 1 tab PO BID 03/21/25 03/21/25 History mg-trimethoprim 160 mg tablet Exam Narrative Exam Narrative: General: Patient appears older than stated age, alert and oriented x 3 and in no acute distress. She is obese. CPAP is at bedside and used for JAYDEN. HEENT: Normocephalic, course and facial features with puffy edema, eyes with pupils equal and reactive light symmetrically, extraocular movement intact and sclera anicteric. Oropharynx with dry mucosa. Poor dentition with missing teeth and discolored teeth. Neck: Supple without JVD. Back: Stooped posture without CVA tenderness. Lungs: Fair aeration clear to percussion with bronchovesicular breath sounds diffusely. No focalizing rales or rhonchi. No expiratory wheeze. Breast: Exam deferred. Heart: Regular rate and rhythm with 4/6 systolic murmur left sternal border. No rubs or gallops. Abdomen: Obese contour, soft and nontender to palpation with no palpable hepatosplenomegaly. Bowel sounds positive all quadrants. Large pannus with no intertriginous rash breakdown which appears chronic. Genitalia/rectal: Exam deferred. Extremities: 2+ soft pitting edema lower extremities which appears chronic with chronic skin changes, loss of hair and atrophic skin but no erythema, no cyanosis or clubbing. Fair capillary refill. Skin: Pale, warm and dry. Neuro: Cranial nerves II through XII gross intact, no focalizing motor deficits. No tremor. Psych: Flattened affect with depressed mood. No abnormal thought processes. Remote and recent memory grossly intact at time of my exam. Results Imaging Imaging Studies: Exam: XR Chest Exam date and time: 03/21/2025 2:15 AM Age: 69 years old Clinical indication: Shortness of breath TECHNIQUE: Imaging protocol: Radiologic exam of the chest. Views: 1 view. COMPARISON: CR XR CHEST 2V PA LATERAL 02/24/2025 7:57 PM FINDINGS: Lungs: Pulmonary vascular congestion. Mildly increased interstitial markings. Pleural spaces: No large pleural effusion seen. Heart/Mediastinum: Enlarged cardiac silhouette, magnified by AP technique. Bones/joints: No acute abnormality. IMPRESSION: Enlarged cardiac silhouette with pulmonary vascular congestion and mild interstitial prominence, suggesting possible heart failure/fluid overload. Please correlate clinically. Date of Exam: 08/17/24 EXAM: Comprehensive 2D, Doppler, and color-flow Echocardiogram Indications: Hypotension, Elevated troponin, Fever, Sepsis, Tachycardia Other Information Study Quality: Fair. Technically limited study due to body habitus, inability to position patient exam done supine bedside icu. Conclusion Normal left ventricular wall thickness and chamber size. Ejection fraction is 60%. Wall motion is normal Right ventricle is not well-visualized Left atrium is borderline dilated. Normal right atrial size There is no significant structural valvular disease Estimated right ventricular systolic pressure is 43 mmHg Labs 03/21/25 01:30 03/21/25 01:30 Labs: Laboratory Results - last 24 hr 03/21/25 03/21/25 03/21/25 01:15 01:30 01:42 WBC 4.09 L RBC 2.60 L Hgb 6.2 L* Hct 20.9 L* MCV 80 MCH 23.8 L MCHC 29.7 L RDW 18.4 H Plt Count 103 L MPV 11.1 H Immature Gran % 0.5 Neutrophils % 56.9 Lymphocytes % 20.3 Monocytes % 14.7 Eosinophils % 6.6 Basophils % 1.0 Nucleated RBC % 0.0 Absolute Neutrophils 2.33 Absolute Lymphocytes 0.83 L Absolute Monocytes 0.60 Absolute Eosinophils 0.27 Absolute Basophils 0.04 PT 11.5 H INR 1.2 H APTT 26.1 VBG pH 7.45 H VBG pCO2 50 VBG pO2 43 VBG HCO3 34 H VBG Total CO2 33 H VBG O2 Saturation 75 VBG Base Excess 10 H Sodium 136 Potassium 3.6 Chloride 101 Carbon Dioxide 33.6 H Anion Gap 1.4 L BUN 29 H Creatinine 1.6 H Est GFR (CKD-EPI 2020) 34.70 Glucose 318 H Calcium 8.4 L Total Bilirubin 1.0 AST 30 ALT 22 Alkaline Phosphatase 219 H Troponin I 9 NT-Pro-B Natriuret Pep 103 Total Protein 5.1 L Albumin 2.2 L COVID-19 Source Nasopharynx SARS-CoV-2 (PCR) Negative Influenza Type A (PCR) Negative Influenza Type B (PCR) Negative RSV (PCR) Negative ABO/Rh O Positive Antibody Screen NEGATIVE Crossmatch See Detail 03/21/25 03:18 WBC RBC Hgb Hct MCV MCH MCHC RDW Plt Count MPV Immature Gran % Neutrophils % Lymphocytes % Monocytes % Eosinophils % Basophils % Nucleated RBC % Absolute Neutrophils Absolute Lymphocytes Absolute Monocytes Absolute Eosinophils Absolute Basophils PT INR APTT VBG pH VBG pCO2 VBG pO2 VBG HCO3 VBG Total CO2 VBG O2 Saturation VBG Base Excess Sodium Potassium Chloride Carbon Dioxide Anion Gap BUN Creatinine Est GFR (CKD-EPI 2020) Glucose Calcium Total Bilirubin AST ALT Alkaline Phosphatase Troponin I 9 NT-Pro-B Natriuret Pep Total Protein Albumin COVID-19 Source SARS-CoV-2 (PCR) Influenza Type A (PCR) Influenza Type B (PCR) RSV (PCR) ABO/Rh Antibody Screen Crossmatch Last Vital Signs Temp 36.2 C L 03/21/25 05:48 Pulse 78 03/21/25 05:48 Resp 18 03/21/25 05:48 BP 129/49 L 03/21/25 05:48 Pulse Ox 97 03/21/25 05:48 Time Spent Time spent with Patient: >75 minutes Time was spent: preparing to see the patient(eg.review tests), obtaining and/or reviewing separately otained hiistory, ordering medications,tests, procedures, indepentently interpreting results and care coordination
[2025-03-21 06:43] LABS: Troponin I 10 ng/L (<or=51)
[2025-03-21] MEDS: Normal Saline Flush 10 ML SYR IVP ×6 (07:16→20:49)
[2025-03-21 07:41] LABS: HCT 22.9 % (36.0-46.0); MCH 24.5 pg (27.0-33.0); MCHC 30.6 % (32.0-36.0); MCV 80 fL (80-95); MPV 11.3 fL (8.0-11.0); RDW 17.5 % (11.7-14.6); RDW-SD 51.3 fL; WBC 3.68 10^3/uL (4.4-10.8)
[2025-03-21 07:59] LABS: Platelet Count 94 10^3/uL (130-400)
[2025-03-21 08:00] LABS: RBC 2.86 10^6/uL (3.93-5.22)
[2025-03-21] MEDS: Nystatin POWDER 15 GM JAR TP ×3 (08:20→20:48)
[2025-03-21] MEDS: Insulin Aspart 300 UNITS/3 ML PEN SC ×4 (08:21→22:57)
[2025-03-21] MEDS: Potassium Chloride 20 MEQ TABCR PO (08:22)
[2025-03-21] MEDS: Atorvastatin 40 MG TAB 80 MG PO (08:22)
[2025-03-21] MEDS: FAMOTIDINE 20 MG/50 ML BAG 200 MG IVPB (08:22)
[2025-03-21] MEDS: rOPINIRole 1 MG TAB 2 MG PO ×3 (08:22→20:37)
[2025-03-21] MEDS: Torsemide 20 MG TAB 40 MG PO (08:22)
[2025-03-21] MEDS: Lactulose 20 GM/30 ML CUP PO ×2 (08:23→14:54)
[2025-03-21] MEDS: Empaglifozin 10 MG TAB PO (08:23)
[2025-03-21] MEDS: FLUoxetine 20 MG CAP 40 MG PO (08:23)
[2025-03-21] MEDS: Magnesium Oxide 400 MG TAB PO (08:23)
[2025-03-21] MEDS: amLODIPine 5 MG TAB PO (08:23)
[2025-03-21] MEDS: Oxybutynin 5 MG TAB PO ×2 (08:23→20:38)
[2025-03-21] MEDS: Ondansetron O.D.T. 4 MG TABEF PO ×2 (08:39→17:41)
--- NOTE | 2025-03-21 08:43 | PDOC.CMIN ---
Documented by User: Vee Vaz 03/21/25 15:17 Date of service: 03/21/25 Time of Service: 08:43 Care Management Initial Assmt Initial Assessment Reason for Hospitalization: CHF exacerbation,ANTHONY, UTI Functional Status/Living Situation Town of Residence: [place] Resides with: Spouse ( Alexis and son Isra) Significant Other/Family: Out of area (Some family in [place] ) Employment Status: Retired Instrumental Activities of Daily Living (ADLs): Independent Medications Medication Management: No Issues/Barriers identified Advance Directives Advance Directives: Do you have an Advance Directive: N 09/23/23 16:39 AD On File at [facility]: N 09/23/23 16:39 Date Asked 02/24/25 02/24/25 21:51 AD Date Reviewed COLST On File at [facility] No 09/11/24 23:35 COLST Date Scanned Code Status Resuscitation Status Full Code Portal Pt does not currently have a portal and education provided: Yes Insurance Coverage/Financial Issues Insurance: BC/BS [place] [facility] Advantage? Care Team Visit Care Team Role Provider Type Karuna Segal NP NURSE PRACTITIONER Jefe Coffey Primary Care Provider NON-[facility] STAFF PHYSICIAN Yo Lopez DO Emergency Provider [facility] STAFF PHYSICIAN Devin Carlson Admit Provider NON-[facility] STAFF PHYSICIAN Attending Provider Discharge Potential Discharge Needs: PCP F/U Appt Anticipated Barriers to Discharge: None Identified Patient/Family Education Needs: Review discharge instructions, discuss Ask Me Three Transportation: Private vehicle Plan: Anticipate Re will be discharged home, possibly with new home health services, when medically cleared. She will follow up with her PCP and plan of care and transport with family. CM will continue to support discharge planning efforts. Social Determinants of Health Screening Social Determinants of health last assessed in clinic: 03/21/25 Will the Patient Participate in the Screening?: Yes Do you worry about having a steady place to live?: no Problems where you live: no known problems In the past 12 months, have you had to go without electric, gas, oil or water in your home?: no 1. Within the past 12 months, we worried whether our food would run out before we got money to buy more.: Never true 2. Within the past 12 months, the food we bought just didn't last and we didn't have money to get more.: Never true Has lack of transportation kept you from medical appointments or from doing things needed for daily living?: no Has anyone in your life made you feel unsafe or unsupported?: no How hard is it for you to pay for the very basics like food, housing, medical care, and heating? Would you say it is:: Not hard at all Do you want help finding or keeping work or a job?: I do not need or want help If for any reason you need help with day-to-day activities such as bathing, preparing meals, shopping, managing finances, etc., do you get the help you need?: I get all the help I need How often do you feel lonely or isolated from those around you?: Never Do you speak a language other than Macedonian at home?: No Does the patient want assistance with any of the above?: Yes PFSH All Active Problems (Updated 03/21/25 @ 06:45 by Devin Carlson) UTI (urinary tract infection) (Acute) Anemia (Chronic) Encephalopathy (Chronic) Presumed secondary to chronic liver disease. Chronically elevated ammonia level. On lactulose. 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 Left clavicle Excess skin of eyelid Pituitary cyst Hypersomnia GAVE (gastric antral vascular ectasia) JAYDEN (obstructive sleep apnea) Acquired arteriovenous malformation Atypical angina Biliary dyskinesia Lung nodule Submucosal neoplasm of stomach Anemia Dermoid cyst History of peptic ulcer disease Osteoarthritis Pancreatitis Hypertensive disorder Hepatic encephalopathy Edema Atrophy of vagina Atrophic vaginitis Actinic keratosis Pituitary adenoma Restless legs Neoplasm of parotid gland Lumbar spondylosis Lesion of esophagus Dyslipidemia Depressive disorder Crohn's disease Chronic low back pain Anxiety Anemia Cirrhosis SALCIDO (nonalcoholic steatohepatitis) CHF (congestive heart failure) Anasarca Surgical History History of oophorectomy, unilateral History of rotator cuff surgery bilateral History of total knee arthroplasty bilateral History of sleeve gastrectomy History of hysterectomy Family History Brother Cancer Lung Alcohol use disorder 2 older brothers Social History Smoking/Tobacco Use Status: Never Smoking risk assessment performed?: Yes Alcohol Intake: never Drug use: Never Substance use type: does not use Housing: house Current gender identity: female Do you feel safe at home: Yes Do you feel safe in your relationship?: Yes Additional Social history: Lives with Arslan, and son in [place]. Moved from [place] in 2019. Has a dog and 8 pet birds. Readmission Within the Past 30 Days Yes or No: Yes Documented by User: Asia Leyva 03/21/25 15:16 Care Management Initial [facility] Functional Status/Living Situation Patient Presentation: Re was sitting up in bed when CM met with her. She was pleasant in manner and easily engaged with CM, well known to her from many previous hospitalizations. Re was admitted with an exacerbation of her CHF and profound, symptomatic anemia. Her H&H on admission was 6.2/20.9. She received 2 units of blood overnight and may receive more today if indicated. Re's Alexis has recently been moved to [facility] for ferry terminal agent care. She stated that things have been going well at home and that Alexis likes his new living arrangements. He is able to come home for visits and was there on Saturday. Re's son Isra lives with her and is very helpful. He does all of the shopping and provides transportation for Re whenever needed. Re also mentioned that she needs to go to [facility] [facility] for another endoscopic procedure to evaluate the GI bleed. She expressed that she was concerned about how she would get to [facility] but was relieved when her sister offered to come and help her out when the appointment is scheduled. Resides with: Child (son Isra) Natural Supports: son Isra, sister in [facility]. Physical Functioning/Mobility Assistive Device: uses a walker Advance Directives Advance Directives: Do you have an Advance Directive: N 09/23/23 16:39 AD On File at [facility]: N 09/23/23 16:39 Date Asked 02/24/25 02/24/25 21:51 AD Date Reviewed COLST On File at [facility] No 09/11/24 23:35 COLST Date Scanned Discharge Plan: Anticipate Re will be discharged home with a resumption of home health services for nursing and PT, when medically cleared. She will follow up with her PCP and plan of care and transport with family. CM will continue to support discharge planning efforts. Social Determinants of Health Screening Social Determinants of health last assessed in clinic: 03/21/25 [facility] All Active Problems (Updated 03/21/25 @ 06:45 by Devin Carlson) UTI (urinary tract infection) (Acute) Anemia (Chronic) Encephalopathy (Chronic) Presumed secondary to chronic liver disease. Chronically elevated ammonia level. On lactulose. 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 Left clavicle Excess skin of eyelid Pituitary cyst Hypersomnia GAVE (gastric antral vascular ectasia) JAYDEN (obstructive sleep apnea) Acquired arteriovenous malformation Atypical angina Biliary dyskinesia Lung nodule Submucosal neoplasm of stomach Anemia Dermoid cyst History of peptic ulcer disease Osteoarthritis Pancreatitis Hypertensive disorder Hepatic encephalopathy Edema Atrophy of vagina Atrophic vaginitis Actinic keratosis Pituitary adenoma Restless legs Neoplasm of parotid gland Lumbar spondylosis Lesion of esophagus Dyslipidemia Depressive disorder Crohn's disease Chronic low back pain Anxiety Anemia Cirrhosis SALCIDO (nonalcoholic steatohepatitis) CHF (congestive heart failure) Anasarca Surgical History History of oophorectomy, unilateral History of rotator cuff surgery bilateral History of total knee arthroplasty bilateral History of sleeve gastrectomy History of hysterectomy Family History Brother Cancer Lung Alcohol use disorder 2 older brothers Social History Smoking/Tobacco Use Status: Never Smoking risk assessment performed?: Yes Alcohol Intake: never Drug use: Never Substance use type: does not use Housing: house Current gender identity: female Do you feel safe at home: Yes Do you feel safe in your relationship?: Yes Additional Social history: Lives with Arslan, and son in [place]. Moved from [place] in 2019. Has a dog and 8 pet birds. Readmission Date of First Admission Date of 1st Admission: 02/24/25 Date of this Admission Date of Admission: 03/21/25 This admission was: Through ED Office Visit Since 1st Admission Have you seen your PCP in the office since discharge?: Yes Date of PCP Appointment: last week Had an appointment Been Scheduled?: Yes Speicalist Appointments Have you seen any other specialist since your 1st Admission?: Yes Specialist Seen: community service aide at [facility] [place] in February - Dr. Dev Gould. Interview patient and/or Family Difficulty reaching your doctor or getting an office appt?: No Have you had trouble purchasing/ or taking medication?: No Have you had trouble with getting meals at home?: No Did you feel ready for discharge when you left the last time: Yes Were services received that you thought were set up on disch: Yes What services were received?: HH RN and PT Did you call your physician beore you came to the ED?: No If the patient had a VNA ordered Did the patient have a VNA order?: Yes Did you call the VNA before you came?: No Assessment for Readmission Summary of readmission circumstances, based upon interviews: Re has chronic anemia from a presumed slow GI bleed. She periodically needs to be admitted for transfusions. She also has CHF and chronic hepatitis with a reduced platelet count. Anticipated HH Services Anticipated HH Services at Discharge [facility] Resumption, PT and RN Anticipated Date of Discharge: 03/23/25. Following Provider: Jefe Coffey.
[2025-03-21 08:44] LABS: Bilirubin Negative (Negative); Blood Negative (Negative); Clarity Clear (Clear); Glucose Negative (Negative); Ketones Negative (Negative); Leukocyte Esterase Negative (Negative); Nitrite Negative (Negative)
[2025-03-21 09:06] LABS: HGB 7.1 g/dL (11.2-15.7)
[2025-03-21] MEDS: Polyethylene Glycol 3350 17 GM PACKET PO (10:47)
[2025-03-21] MEDS: Docusate Sodium 100 MG CAP PO (10:47)
[2025-03-21 12:24] LABS: HCT 24.9 % (36.0-46.0); HGB 7.6 g/dL (11.2-15.7)
--- NOTE | 2025-03-21 14:21 | PT.INIE ---
PT Notes Visit Reasons: CHF exacerbation, ANTHONY, UTI Inpatient Physical Therapy Evaluation Date: 03/21/25 Referring Doctor: Karuna Segal NP PT Orders: PT CONSULT Precautions: fall, standard Patient Profile/Admitting Diagnosis: Re Benitez, is a 69-year-old female with h/o frequent hospitalizations for complications of her chronic medical problems. She presented to ED early this am with increasing edema and weight gain at home, with increasing shortness of breath; found to be hypoxic with exacerbation of CHF. She was also acutely anemic from her chronic blood loss from her GI tract and had a hemoglobin below 7 g/dL prompting transfusion of 2 units of packed red blood cells. PT consult ordered today for evaluation and treatment. Social History/Home Situation: Resides in a multi-level home with her son. She states she has 8 birds, 1 rabbit and a dog. She is independent with ADLs, ambulation with 4WW. She sleeps in a recliner and has a commode next to her chair. Equipment Owned/DME: 4WW, hand rails in shower Subjective: Eli is requesting transfer to commode upon PT entering room. She is agreeable to ambulation following toileting. Objective: General Observation: Sitting at EOB, IV in BUE. Mental Status: A&Ox3 Pain: left hip, chronic ROM: Right Upper Extremity: WFL Left Upper Extremity: WFL Right Lower Extremity: WFL Left Lower Extremity: Hip ROM restricted in all planes. Tolerates 70* flexion functionally, with compensatory movements during transfers. Strength: Right Upper Extremity: Shoulder flexion 4/5. Biceps 4/5. Triceps 4+/5. Medical Insurance Claims Specialist is weak but equal. Left Upper Extremity: Shoulder flexion 4/5. Biceps 4/5. Triceps 4+/5. Medical Insurance Claims Specialist is weak but equal. Right Lower Extremity: Hip flexion 4+/5. Quads 4+/5. Left Lower Extremity: Hip flexion 3-/5. Quads 3/5. Unable to perform SLR on the left due to hip pain. Bed Mobility/Transfers: sit-stand: min A, heavily reliant on UE support stand-sit: CGA, with increased time to perform due to hip pain Gait: Ambulates 25'x1 with FWW, CGA. Slow simone, and shortened stride length. Balance: Static Sitting: good Dynamic Sitting: good Static Standing: fair Dynamic Standing: fair Special Tests: Mobility Limitations Standardized Measure [facility] AM-PAC 6 clicks Basic Mobility Inpatient Short Form: Raw Score: 19 Standardized Score: 45.44 CMS Score: 42% Informed Consent/Education: Patient instructed in purpose of PT consult and plan of care. Assessment: Patient is a 69 year old female referred to physical therapy services in acute care setting, where she is being managed for exacerbation of CHF, ANTHONY and anemia. Patient presents with acute on chronic mobility impairments, and will benefit from PT intervention to maximize mobility prior to returning home. She currently demonstrates the following impairment level findings: 1. decreased activity tolerance 2. decreased functional strength with sit-stand (unable to complete without UE support and assistance) 3. Decreased LLE strength 4. decreased LLE ROM Impairments are contributing to the following functional limitations: 1. decreased activity tolerance 2. decreased independence with transfers Patient is assessed as Low 63525 complexity based on the following: History: As above Examination: As above Presentation: evolving due to acute medical issues Decision Making: low complexity Goals: Goals X1 week 1. Supine-Sit : supervision 2. Sit-Supine : supervision 3. Sit-Stand : supervision with FWW 4. Stand-Sit : supervision with FWW 5. Bed-Chair : supervision with FWW 6. Chair-Bed : supervision with FWW 7. Gait : supervision with FWW x 50' Plan of Care/Treatment Plan: 1-2x/day, 7 days/week x 1 week. Plan of care has been reviewed with the RUBBER ROLLER GRINDER OPERATOR providing the service under Physical Therapy direction. Initiate Physical Therapy intervention for strengthening, bed mobility, transfers, gait, stairs, balance training, use of assistive device. DISCHARGE RECOMMENDATIONS: Home with services ( PT) TREATMENT CODE/TIME: 01886 ([id number]; [id number]) Kelly Neal, PT, DPT [facility] All Active Problems (Updated 03/21/25 @ 06:45 by Devin Carlson) UTI (urinary tract infection) (Acute) Anemia (Chronic) Encephalopathy (Chronic) Presumed secondary to chronic liver disease. Chronically elevated ammonia level. On lactulose. 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 Left clavicle Excess skin of eyelid Pituitary cyst Hypersomnia GAVE (gastric antral vascular ectasia) JAYDEN (obstructive sleep apnea) Acquired arteriovenous malformation Atypical angina Biliary dyskinesia Lung nodule Submucosal neoplasm of stomach Anemia Dermoid cyst History of peptic ulcer disease Osteoarthritis Pancreatitis Hypertensive disorder Hepatic encephalopathy Edema Atrophy of vagina Atrophic vaginitis Actinic keratosis Pituitary adenoma Restless legs Neoplasm of parotid gland Lumbar spondylosis Lesion of esophagus Dyslipidemia Depressive disorder Crohn's disease Chronic low back pain Anxiety Anemia Cirrhosis SALCIDO (nonalcoholic steatohepatitis) CHF (congestive heart failure) Anasarca Surgical History History of oophorectomy, unilateral History of rotator cuff surgery bilateral History of total knee arthroplasty bilateral History of sleeve gastrectomy History of hysterectomy
[2025-03-21 19:13] LABS: HCT 25.9 % (36.0-46.0); HGB 7.9 g/dL (11.2-15.7)
[2025-03-21] MEDS: FAMOTIDINE 20 MG/50 ML BAG 50 MG IVPB (20:38)
[2025-03-21] MEDS: Doxepin 10 MG CAP 30 MG PO (20:38)
[2025-03-22] VITALS (9 sets, daily range): BP systolic 100–129; BP diastolic 40–47; PULSE 68–79; RESP 16–22; TEMP 36.4–37.7; O2SAT 93–96
[2025-03-22 00:38] LABS: HCT 24.2 % (36.0-46.0); HGB 7.3 g/dL (11.2-15.7)
[2025-03-22] MEDS: Ondansetron O.D.T. 4 MG TABEF PO (03:17)
[2025-03-22 06:35] LABS: HCT 23.6 % (36.0-46.0); MCH 24.5 pg (27.0-33.0); MCHC 30.1 % (32.0-36.0); MCV 81 fL (80-95); MPV 11.7 fL (8.0-11.0); RDW 17.6 % (11.7-14.6); RDW-SD 52.6 fL; WBC 4.35 10^3/uL (4.4-10.8)
[2025-03-22] MEDS: CIPROFLOXACIN 400 MG/200 ML BAG 200 MG IVPB ×2 (06:36→18:12)
[2025-03-22 06:50] LABS: INR 1.2 (0.9-1.1); Prothrombin Time 11.8 sec (9.1-11.1)
[2025-03-22 07:14] LABS: ALT 18 U/L (14-59); AST 32 U/L (15-37); Albumin 2.2 g/dL (3.4-5.0); Alkaline Phosphatase 188 U/L (46-116); Anion Gap 5.3 mmol/L (3-11); BUN 25 mg/dL (7-18); Bilirubin, Total 1.6 mg/dL (0.2-1.0); CO2 32.7 mmol/L (21.0-32.0); CREATININE 1.5 mg/dL (0.55-1.02); Calcium 8.6 mg/dL (8.5-10.1); Chloride 102 mmol/L (98-107); Estimated GFR 37.49 (mL/min/1.73m2); Glucose 188 mg/dL (74-106); Magnesium 2.2 mg/dL (1.8-2.4); Potassium 3.4 mmol/L (3.5-5.1); Sodium 140 mmol/L (136-145); Total Protein 5.1 g/dL (6.4-8.2)
[2025-03-22 07:31] LABS: HGB 7.1 g/dL (11.2-15.7)
[2025-03-22 07:32] LABS: Platelet Count 95 10^3/uL (130-400)
[2025-03-22] MEDS: Insulin Aspart 300 UNITS/3 ML PEN SC ×4 (08:32→22:12)
[2025-03-22] MEDS: FAMOTIDINE 20 MG/50 ML BAG 50 MG IVPB ×2 (08:32→20:26)
[2025-03-22] MEDS: FLUoxetine 20 MG CAP 40 MG PO (08:33)
[2025-03-22] MEDS: amLODIPine 5 MG TAB PO (08:33)
[2025-03-22] MEDS: Nystatin POWDER 15 GM JAR TP ×2 (08:33→14:21)
[2025-03-22] MEDS: Empaglifozin 10 MG TAB PO (08:33)
[2025-03-22] MEDS: Magnesium Oxide 400 MG TAB PO (08:34)
[2025-03-22] MEDS: Torsemide 20 MG TAB 40 MG PO (08:34)
[2025-03-22] MEDS: Pantoprazole 40 MG VIAL IVP (08:34)
[2025-03-22] MEDS: Atorvastatin 40 MG TAB 80 MG PO (08:34)
[2025-03-22] MEDS: rOPINIRole 1 MG TAB 2 MG PO ×3 (08:34→20:25)
[2025-03-22] MEDS: Normal Saline Flush 10 ML SYR IVP ×2 (08:36→20:28)
[2025-03-22] MEDS: Potassium Chloride 20 MEQ TABCR PO (08:36)
[2025-03-22] MEDS: Oxybutynin 5 MG TAB PO ×2 (08:36→20:26)
--- NOTE | 2025-03-22 09:47 | PT.INTREAT ---
PT Notes Visit Reasons: CHF exacerbation, ANTHONY, UTI Inpatient Physical Therapy Treatment Note [facility] Date: 03/22/2025 PRECAUTIONS:Standard, IV access RUE Subjective: Pt reporting she wishes they could figure out where she is loosing the blood from. OBJECTIVE: Pt presented with IV infusing in LUE agreeable to participate PM Session: Pt seated in chair with blood transfusion infusing. Nurse requesting pt not ambulate but able to perform seated tasks. Therapeutic Activities ([id number]): Direct one-on-one instruction in dynamic activities to improve functional performance. ?? Provided skilled cues and instruction on performance and technique throughout. ? BED MOBILITY/TRANSFERS? Supine to sit: CGA? with HOB elevated. (pt sleeps in recliner at home)? Sit-stand: SBA ?from chair and toilet ? Stand-sit: SBA ? at chair and toilet? ? ? -Pt able to perform dynamic stand balance tasks without UE support within CHANG for toilet hygiene with SBA?Pt performed hand washing and grooming tasks at sink including hair brushing and teeth cleaning without sit rest. ? - Ambulation:? Facilitated safe and correct performance of level surface ambulation covering a distance of 25 feet x 1 with sit rest then 80 feet x1 using use front wheeled walker with SBA and wheelchair follow for safety. Did report increased pain in her back after the 2nd distance. Denied headache, chest pain, and lightheadedness throughout activity. Minimal verbal cueing provided for AD management, directional changes, and posture. ? -(PM session)exercise. Provide cues for technique throughout 10 reps BLE: seated with feet on floor:ankle PF/DF , LAQ, hip abd/add, marching seated sreclined with feet elevate: QS, GS, heelslide ASSESSMENT:? Pt with improvement in activity tolerance with FWW this session. Pt tolerated stand activities for 13 mins without sit rest. Pt 's stand tolerance is limited by onset of low back pain which she rated as a 3 at end of stand task. Pt noted reduction to a 2 within 3 mins of sit rest. In PM pt limited to seated tasks d/t pt receiving blood transfusion. PLAN: Cont as per PT POC. TREATMENT CODE/TIME:[id number] mins for 2 units/ [id number]; [id number]/ [id number] DISCHARGE RECOMMENDATION:HH PT
[2025-03-22] MEDS: Potassium Chloride 20 MEQ TABCR 40 MEQ PO (11:23)
--- NOTE | 2025-03-22 11:47 | PDOC.CMPRO ---
Date of service: 03/22/25 Time of Service: 11:47 Care Management Progress Note Progress Note Text Progress Note Text: Re was sitting up in a chair when CM met with her. She was in good spirits and easily engaged with CM. Re informed CM that she is really getting concerned about her blood count. She feels it is getting worse and she indicated she wished she could be transferred from [facility] to [facility] for the endoscopy now instead of having to wait to have it done as an outpatient. She called Gastroenterology herself and they informed her that they now have an order for the procedure to be done and she stated she was going to try to get it scheduled. Re received 2 units of blood yesterday and her Hgb increased from 6.2 to a high of 7.9, however this morning it was back to 7.1. Re's vital signs are stable and her oxygen saturation is in the mid to upper 90s on room air. She informed CM that she is feeling better but is not yet ready for discharge. This afternoon Re took the initiative to contact her emt/paramedic at [facility] herself. She is now scheduled to have an outpatirnt EGD on at 3:15 pm at [facility]. Re stated that she would like to be able to stay at [facility] until then so that she could be transferred from here but that will likely not be possible. Re did state that her son Isra would take her if there were no other options. She is receiving another unit of blood this afternoon and will have follow up blood work later today and in the morning. Discharge Potential Discharge Needs: PCP F/U Appt Anticipated Barriers to Discharge: None Identified Patient/Family Education Needs: Review discharge instructions, discuss Ask Me Three Transportation: Private vehicle Plan: Anticipate Re will be discharged home, possibly with new home health services, when medically cleared. She will follow up with her PCP and plan of care and transport with family. CM will continue to support discharge planning efforts. Social Determinants of Health Screening Social Determinants of health last assessed in clinic: 03/22/25 Will the Patient Participate in the Screening?: Yes Do you worry about having a steady place to live?: no Problems where you live: no known problems In the past 12 months, have you had to go without electric, gas, oil or water in your home?: no 1. Within the past 12 months, we worried whether our food would run out before we got money to buy more.: Never true 2. Within the past 12 months, the food we bought just didn't last and we didn't have money to get more.: Never true Has lack of transportation kept you from medical appointments or from doing things needed for daily living?: no Has anyone in your life made you feel unsafe or unsupported?: no How hard is it for you to pay for the very basics like food, housing, medical care, and heating? Would you say it is:: Not hard at all Do you want help finding or keeping work or a job?: I do not need or want help If for any reason you need help with day-to-day activities such as bathing, preparing meals, shopping, managing finances, etc., do you get the help you need?: I get all the help I need How often do you feel lonely or isolated from those around you?: Never Do you speak a language other than Luxembourgish at home?: No Does the patient want assistance with any of the above?: Yes Health Related Social Needs Health related social needs details: patient needs caregtiver when discharge.
--- NOTE | 2025-03-22 16:24 | PGE_ITS ---
Date of Service Date of service: 03/22/25 Time of Service: 16:24 Assessment and Plan Assessment and plan (1) CHF exacerbation: Status: Acute Assessment and plan: No increased wob, no sob, no crackles or wheezes, no O2 requirement, no edema (2) Anemia: Status: Chronic Assessment and plan: Transfuse - check H&H Continue follow-up with specialty care. (3) Acute renal failure: Start date: 03/21/25 Status: Acute Assessment and plan: Cr 1.5 up from baseline 0.7 (4) UTI (urinary tract infection): Start date: 03/21/25 Status: Acute Assessment and plan: Acute UTI with patient having pathogen sensitive to Cipro which will be continued IV and converted to oral therapy for discharge. Avoid Bactrim because of ANTHONY on this treatment and being a possible side effect. (5) Encephalopathy: Status: Chronic Assessment and plan: Continue outpatient lactulose treatment. (6) Type 2 diabetes mellitus: Status: Chronic Assessment and plan: Hold outpatient therapy except for Jardiance and glucometer measurements before meals and at bedtime with moderate sliding scale short acting insulin coverage while hospitalized. (7) GAVE (gastric antral vascular ectasia): Assessment and plan: Continue follow[place]up with [facility] this for outpt colo/endo (8) Acquired arteriovenous malformation: Assessment and plan: Continue GI follow-up as stated. (9) Chronic low back pain: Assessment and plan: Patient is on chronic oxycodone as needed with an average of 2 a day with this being consistent with review of VPMS. She does not appear to be high risk for chronic misuse and is not on benzodiazepines. Urine drug screen was not performed with patient at baseline mentation. Oxycodone will be continued as needed during hospital stay. (10) JAYDEN (obstructive sleep apnea): Assessment and plan: Continue home CPAP. Patient is not chronically on oxygen therapy at home. (11) Hypokalemia: Status: Resolved Assessment and plan: 3.4 repleted orally Trend Subjective Subjective Patient reports: no new complaints, tolerating a regular diet, voiding w/o difficulty and afebrile; denies diarrhea, nausea, vomiting or shortness of breath Exam Narrative Exam Narrative: Elderly female in no acute distress head is atraumatic eyes nonicteric noninjected facial features symmetrical oral mucosas moist no oral exudates neck is supple with full range of motion no meningeal signs respirations are even and unlabored her breath sounds are clear bilaterally abdomen is obese soft nontender positive bowel sounds she moves all extremities equally. Neurologic she is awake alert oriented no focal deficits psychiatric normal mood and affect Psych Mental Status: mental status grossly normal Speech and Movement: speech and movement normal Mood: congruent mood Affect: normal affect Objective Last Vital Signs Temp 37.5 C 03/22/25 15:18 Pulse 68 03/22/25 15:18 Resp 18 03/22/25 15:18 BP 110/42 L 03/22/25 15:18 Pulse Ox 94 03/22/25 15:18 Laboratory Results - last 24 hr 03/21/25 03/21/25 03/22/25 01:42 19:05 00:30 WBC RBC Hgb 7.9 L 7.3 L Hct 25.9 L 24.2 L MCV MCH MCHC RDW Plt Count MPV PT INR Sodium Potassium Chloride Carbon Dioxide Anion Gap BUN Creatinine Est GFR (CKD-EPI 2020) Glucose Calcium Magnesium Total Bilirubin AST ALT Alkaline Phosphatase Total Protein Albumin ABO/Rh O Positive Antibody Screen NEGATIVE Crossmatch See Detail 03/22/25 06:15 WBC 4.35 L RBC 2.90 L Hgb 7.1 L Hct 23.6 L MCV 81 MCH 24.5 L MCHC 30.1 L RDW 17.6 H Plt Count 95 L MPV 11.7 H PT 11.8 H INR 1.2 H Sodium 140 Potassium 3.4 L Chloride 102 Carbon Dioxide 32.7 H Anion Gap 5.3 BUN 25 H Creatinine 1.5 H Est GFR (CKD-EPI 2020) 37.49 Glucose 188 H Calcium 8.6 Magnesium 2.2 Total Bilirubin 1.6 H AST 32 ALT 18 Alkaline Phosphatase 188 H Total Protein 5.1 L Albumin 2.2 L ABO/Rh Antibody Screen Crossmatch Time Spent with Patient Time Spent with Patient: 35-49 minutes Time was spent: preparing to see the patient(eg.review tests), ordering medications,tests, procedures, referring, communicating with other health personal care service provider, indepentently interpreting results, counseling the patient and care coordination
[2025-03-22 19:30] LABS: HCT 23.9 % (36.0-46.0); HGB 7.2 g/dL (11.2-15.7)
[2025-03-22] MEDS: Doxepin 10 MG CAP 30 MG PO (20:26)
[2025-03-23 03:44] VITALS: BP 108/45; PULSE 71; RESP 18; TEMP 36.7; O2SAT 90
[2025-03-23] MEDS: CIPROFLOXACIN 400 MG/200 ML BAG 200 MG IVPB ×2 (06:00→17:57)
[2025-03-23 06:59] LABS: HCT 25.8 % (36.0-46.0); MCH 25.1 pg (27.0-33.0); MCV 81 fL (80-95); MPV 11.6 fL (8.0-11.0); RBC 3.19 10^6/uL (3.93-5.22); RDW 17.2 % (11.7-14.6); RDW-SD 51.2 fL; WBC 4.35 10^3/uL (4.4-10.8)
[2025-03-23 07:10] LABS: INR 1.2 (0.9-1.1); Prothrombin Time 11.8 sec (9.1-11.1)
[2025-03-23 07:21] LABS: ALT 21 U/L (14-59); AST 35 U/L (15-37); Albumin 2.2 g/dL (3.4-5.0); Alkaline Phosphatase 205 U/L (46-116); Anion Gap 3.5 mmol/L (3-11); BUN 24 mg/dL (7-18); Bilirubin, Total 1.8 mg/dL (0.2-1.0); CO2 33.5 mmol/L (21.0-32.0); CREATININE 1.4 mg/dL (0.55-1.02); Calcium 8.5 mg/dL (8.5-10.1); Chloride 103 mmol/L (98-107); Estimated GFR 40.73 (mL/min/1.73m2); Glucose 203 mg/dL (74-106); Magnesium 2.1 mg/dL (1.8-2.4); Potassium 3.4 mmol/L (3.5-5.1); Sodium 140 mmol/L (136-145); Total Protein 5.2 g/dL (6.4-8.2)
[2025-03-23 07:46] LABS: Platelet Count 96 10^3/uL (130-400)
[2025-03-23] MEDS: Insulin Aspart 300 UNITS/3 ML PEN SC ×4 (08:10→21:44)
[2025-03-23] MEDS: Lactulose 20 GM/30 ML CUP PO ×2 (08:10→16:35)
[2025-03-23] MEDS: Atorvastatin 40 MG TAB 80 MG PO (08:11)
[2025-03-23] MEDS: rOPINIRole 1 MG TAB 2 MG PO ×3 (08:11→19:59)
[2025-03-23] MEDS: Magnesium Oxide 400 MG TAB PO (08:11)
[2025-03-23] MEDS: FLUoxetine 20 MG CAP 40 MG PO (08:11)
[2025-03-23] MEDS: Pantoprazole 40 MG VIAL IVP (08:11)
[2025-03-23] MEDS: Torsemide 20 MG TAB 40 MG PO (08:11)
[2025-03-23] MEDS: Oxybutynin 5 MG TAB PO ×2 (08:11→19:59)
[2025-03-23] MEDS: amLODIPine 5 MG TAB PO (08:12)
[2025-03-23] MEDS: Empaglifozin 10 MG TAB PO (08:12)
[2025-03-23] MEDS: Potassium Chloride 20 MEQ TABCR PO (08:12)
[2025-03-23] MEDS: FAMOTIDINE 20 MG/50 ML BAG 50 MG IVPB (08:22)
[2025-03-23] MEDS: Normal Saline Flush 10 ML SYR IVP ×2 (08:23→20:00)
[2025-03-23 08:27] VITALS: BP 119/34; PULSE 73; RESP 18; TEMP 36.1; O2SAT 95
--- NOTE | 2025-03-23 10:00 | PDOC.CMPRO ---
Date of service: 03/23/25 Time of Service: 10:00 Care Management Progress Note Progress Note Text Progress Note Text: Re was sitting up in a chair when CM met with her. She informed CM that she is still feeling very weak and a bit shaky when she stands up. Per PT, she was able to ambulate with her walker but some instability in static standing was noted, not present yesterday. Re also had a tarry stool this morning and her blood pressure was a little soft. Based on the above, the decision was made to postpone discharge until tomorrow. She will have a repeat H&H later today and again in the morning. Re also reported having visual hallucinations to the nursing staff. When CM asked her about it, she stated it was more like a dream/waking moment when things are still unclear. She was aware that what she saw (mice) was not real. Last evening Re received another unit of blood and this morning her Hgb was up to 8.0 from 7.2 yesterday. Discharge Potential Discharge Needs: PCP F/U Appt Anticipated Barriers to Discharge: None Identified Patient/Family Education Needs: Review discharge instructions, discuss Ask Me Three Transportation: Private vehicle Plan: Anticipate Re will be discharged home, possibly with new home health services, when medically cleared. She will follow up with her PCP and plan of care and transport with family. CM will continue to support discharge planning efforts. Social Determinants of Health Screening Social Determinants of health last assessed in clinic: 03/23/25 Will the Patient Participate in the Screening?: Yes Do you worry about having a steady place to live?: no Problems where you live: no known problems In the past 12 months, have you had to go without electric, gas, oil or water in your home?: no 1. Within the past 12 months, we worried whether our food would run out before we got money to buy more.: Never true 2. Within the past 12 months, the food we bought just didn't last and we didn't have money to get more.: Never true Has lack of transportation kept you from medical appointments or from doing things needed for daily living?: no Has anyone in your life made you feel unsafe or unsupported?: no How hard is it for you to pay for the very basics like food, housing, medical care, and heating? Would you say it is:: Not hard at all Do you want help finding or keeping work or a job?: I do not need or want help If for any reason you need help with day-to-day activities such as bathing, preparing meals, shopping, managing finances, etc., do you get the help you need?: I get all the help I need How often do you feel lonely or isolated from those around you?: Never Do you speak a language other than Georgian at home?: No Does the patient want assistance with any of the above?: Yes Health Related Social Needs Health related social needs details: patient needs caregtiver when discharge.
[2025-03-23] MEDS: Potassium Chloride 20 MEQ TABCR 40 MEQ PO (10:45)
--- NOTE | 2025-03-23 11:47 | PTTR_ITS ---
PT Notes Visit Reasons: CHF exacerbation, ANTHONY, UTI Inpatient Physical Therapy Treatment Note [facility] Date: 03/23/2025 PRECAUTIONS:Standard, IV access RUE Subjective: am: Pt reporting she just does not feel like herself. no energy and no appetite. pm: Pt stating she feels much better and was able to eat lunch . OBJECTIVE: Pt presented seated in chair for both sessions. Therapeutic Activities ([id number]): Direct one-on-one instruction in dynamic activities to improve functional performance. ?? Provided skilled cues and instruction on performance and technique throughout. ? BED MOBILITY/TRANSFERS? Supine to/from sit: CGA? with HOB elevated. (pt sleeps in recliner at home)? Sit-stand: SBA ?from chair and toilet ? ? x 3 ?(am/PM) ? Stand-sit: SBA ? at chair and toilet? ? ? x3 ( am pm) -Pt able to perform dynamic stand balance tasks without UE support within CHANG for toilet hygiene with SBA?Pt performed hand washing and grooming tasks at sink including hair brushing and teeth cleaning without sit rest. ? - Ambulation:? Facilitated safe and correct performance of level surface ambulation covering a distance of 25 feet x 3 with sit rest using use front wheeled walker with SBA Denied headache, chest pain, and lightheadedness throughout activity. Minimal verbal cueing provided for AD management, directional changes, and posture. ? -(PM session)Facilitated safe and correct performance of level surface ambulation covering a distance of 80 feet x 2 with sit rest using use front wheeled walker with SBA and wheelchair follow for safety. Denied headache, chest pain, and lightheadedness throughout activity. Minimal verbal cueing provided for AD management, directional changes, and posture. ASSESSMENT:?In am session, pt noted with mild tremulous and instability in sta nding while performing hand hygiene. Pt noted not feeling herself. In pm pt with significantly improved level of performance. and activity tolerance this pm. Pt able to ambulate 80 feet x 2 with rest between. no episodes of instability throughout session. PLAN: Cont as per PT POC. TREATMENT CODE/TIME:[id number] mins for 2 units/ [id number]; pm session : 79025 x 28 mins for 2 units/ [id number] DISCHARGE RECOMMENDATION: PT
--- NOTE | 2025-03-23 11:58 | PGE_ITS ---
Date of Service Date of service: 03/23/25 Time of Service: 11:59 Assessment and Plan Assessment and plan (1) CHF exacerbation: Status: Acute Assessment and plan: No increased wob, no sob, no crackles or wheezes, no O2 requirement, no edema (2) Anemia: Status: Chronic Assessment and plan: Hgb 8.2 without transfusion today (3) Acute renal failure: Start date: 03/21/25 Status: Acute Assessment and plan: Cr 1.4, better than yesterday but up from baseline 0.7 (4) UTI (urinary tract infection): Start date: 03/21/25 Status: Acute Assessment and plan: Acute UTI with patient having pathogen sensitive to Cipro which will be continued IV and converted to oral therapy for discharge. Avoid Bactrim because of ANTHONY on this treatment and being a possible side effect. (5) Encephalopathy: Status: Chronic Assessment and plan: Continue outpatient lactulose treatment. (6) Type 2 diabetes mellitus: Status: Chronic Assessment and plan: Hold outpatient therapy except for Jardiance and glucometer measurements before meals and at bedtime with moderate sliding scale short acting insulin coverage while hospitalized. (7) GAVE (gastric antral vascular ectasia): Assessment and plan: Continue follow-up with [facility] this for outpt colo/endo (8) Acquired arteriovenous malformation: Assessment and plan: Continue GI follow-up as stated. (9) Chronic low back pain: Assessment and plan: Patient is on chronic oxycodone as needed with an average of 2 a day with this being consistent with review of VPMS. She does not appear to be high risk for chronic misuse and is not on benzodiazepines. Urine drug screen was not performed with patient at baseline mentation. Oxycodone will be continued as needed during hospital stay. (10) JAYDEN (obstructive sleep apnea): Assessment and plan: Continue home CPAP. Patient is not chronically on oxygen therapy at home. (11) Hypokalemia: Status: Resolved Assessment and plan: 3.4 repleted orally Trend Subjective Subjective Patient reports: no new complaints, tolerating liquids well, tolerating a regular diet, voiding w/o difficulty, bowel movement and afebrile; denies diarrhea, nausea, vomiting or shortness of breath Interval history since last seen: Did have one large dark stool today Exam Narrative Exam Narrative: Elderly female in no acute distress head is atraumatic eyes nonicteric noninj ected facial features symmetrical oral mucosas moist no oral exudates neck is supple with full range of motion no meningeal signs respirations are even and unlabored her breath sounds are clear bilaterally abdomen is obese soft nontender positive bowel sounds she moves all extremities equally. Neurologic she is awake alert oriented no focal deficits psychiatric normal mood and affect Psych Mental Status: mental status grossly normal Speech and Movement: speech and movement normal Mood: congruent mood Affect: normal affect Objective Last Vital Signs Temp 36.1 C L 03/23/25 08:27 Pulse 73 03/23/25 08:27 Resp 18 03/23/25 08:27 BP 119/34 L 03/23/25 08:27 Pulse Ox 95 03/23/25 08:27 Laboratory Results - last 24 hr 03/21/25 03/22/25 03/23/25 01:42 19:25 06:24 WBC 4.35 L RBC 3.19 L Hgb 7.2 L 8.0 L Hct 23.9 L 25.8 L MCV 81 MCH 25.1 L MCHC 31.0 L RDW 17.2 H Plt Count 96 L MPV 11.6 H PT 11.8 H INR 1.2 H Sodium 140 Potassium 3.4 L Chloride 103 Carbon Dioxide 33.5 H Anion Gap 3.5 BUN 24 H Creatinine 1.4 H Est GFR (CKD-EPI 2020) 40.73 Glucose 203 H Calcium 8.5 Magnesium 2.1 Total Bilirubin 1.8 H AST 35 ALT 21 Alkaline Phosphatase 205 H Total Protein 5.2 L Albumin 2.2 L ABO/Rh O Positive Antibody Screen NEGATIVE Crossmatch See Detail Time Spent with Patient Time Spent with Patient: 35-49 minutes Time was spent: preparing to see the patient(eg.review tests), ordering medications,tests, procedures, referring, communicating with other health care transitions nurse, indepentently interpreting results, counseling the patient and care coordination
[2025-03-23 12:00] VITALS: BP 107/35; PULSE 69; RESP 18; TEMP 36.4; O2SAT 96
[2025-03-23 15:32] LABS: HCT 26.7 % (36.0-46.0); HGB 8.2 g/dL (11.2-15.7)
[2025-03-23 16:13] VITALS: BP 114/36; PULSE 58; RESP 15; TEMP 36.6; O2SAT 95
[2025-03-23 19:36] VITALS: BP 124/42; PULSE 76; RESP 20; TEMP 36.7; O2SAT 96
[2025-03-23] MEDS: Doxepin 10 MG CAP 30 MG PO (19:59)
[2025-03-23] MEDS: oxyCODONE 5 MG TAB PO (20:00)
[2025-03-23] MEDS: FAMOTIDINE 20 MG/50 ML BAG 200 MG IVPB (20:04)
[2025-03-23 22:59] VITALS: BP 104/46; PULSE 80; RESP 20; TEMP 36.6; O2SAT 94
[2025-03-24] MEDS: CIPROFLOXACIN 400 MG/200 ML BAG 100 MG IVPB (05:32)
[2025-03-24] MEDS: Normal Saline Flush 10 ML SYR IVP (05:33)
[2025-03-24 07:02] LABS: Abs Immature Grans 0.01 10^3/uL (0.0-0.06); Absolute Basophil Count 0.05 10^3/uL (0.0-0.2); Absolute Eosinophil Count 0.36 10^3/uL (0.0-0.7); Absolute Lymphocyte Count 0.88 10^3/uL (1.2-3.4); Absolute Neutrophil Count 3.02 10^3/uL (1.2-6.7); Eosinophils % 7.2 %; HCT 25.4 % (36.0-46.0); HGB 7.7 g/dL (11.2-15.7); Immature Grans % 0.2 %; Lymphocytes % 17.5 %; MCH 24.4 pg (27.0-33.0); MCHC 30.3 % (32.0-36.0); MCV 81 fL (80-95); MPV 11.4 fL (8.0-11.0); Monocytes % 13.9 %; Neutrophils % 60.2 %; RBC 3.15 10^6/uL (3.93-5.22); RDW 17.2 % (11.7-14.6); RDW-SD 50.5 fL; WBC 5.02 10^3/uL (4.4-10.8)
[2025-03-24 07:10] LABS: Anion Gap 0.2 mmol/L (3-11); BUN 24 mg/dL (7-18); CO2 33.8 mmol/L (21.0-32.0); CREATININE 1.3 mg/dL (0.55-1.02); Calcium 8.5 mg/dL (8.5-10.1); Chloride 102 mmol/L (98-107); Estimated GFR 44.51 (mL/min/1.73m2); Glucose 168 mg/dL (74-106); Magnesium 1.9 mg/dL (1.8-2.4); Potassium 3.5 mmol/L (3.5-5.1); Sodium 136 mmol/L (136-145)
[2025-03-24 07:29] LABS: Diff Comment PLT Morph Reviewed; Platelet Count 93 10^3/uL (130-400); RBC Morphology Normal
[2025-03-24 07:35] VITALS: BP 125/44; PULSE 86; RESP 16; TEMP 36.3; O2SAT 95
[2025-03-24] MEDS: Insulin Aspart 300 UNITS/3 ML PEN SC ×2 (08:07→12:23)
[2025-03-24] MEDS: Oxybutynin 5 MG TAB PO (08:08)
[2025-03-24] MEDS: rOPINIRole 1 MG TAB 2 MG PO (08:08)
[2025-03-24] MEDS: Empaglifozin 10 MG TAB PO (08:08)
[2025-03-24] MEDS: Magnesium Oxide 400 MG TAB PO (08:08)
[2025-03-24] MEDS: Atorvastatin 40 MG TAB 80 MG PO (08:08)
[2025-03-24] MEDS: Potassium Chloride 20 MEQ TABCR PO (08:08)
[2025-03-24] MEDS: FLUoxetine 20 MG CAP 40 MG PO (08:08)
[2025-03-24] MEDS: amLODIPine 5 MG TAB PO (08:08)
[2025-03-24 11:21] VITALS: BP 113/33; PULSE 71; RESP 14; TEMP 36.6; O2SAT 97
--- NOTE | 2025-03-24 12:47 | PTTR_ITS ---
PT Notes Visit Reasons: CHF exacerbation, ANTHONY, UTI Inpatient Physical Therapy Treatment Note [facility] Date: 03/24/2025 PRECAUTIONS:Standard, IV access RUE Subjective: Pt reports she feels much better and is looking forward to going home OBJECTIVE: Pt presented seated in chair for both sessions. Therapeutic Activities (08667): Direct one-on-one instruction in dynamic activities to improve functional performance. ?? Provided skilled cues and instruction on performance and technique throughout. ? BED MOBILITY/TRANSFERS? Sit-stand: SBA ?from chair and toilet ? Stand-sit: SBA ? at chair and toilet? ? ? -Pt able to perform dynamic stand balance tasks without UE support within CHANG for toilet hygiene with SBA?Pt performed hand washing and grooming tasks at sink including hair brushing and teeth cleaning without sit rest. ? - Ambulation:? Facilitated safe and correct performance of level surface ambulation covering a distance of 160feet including 90 and 180 degree turns without sit rest using use front wheeled walker with SBA Denied headache, chest pain, and lightheadedness throughout activity. Minimal verbal cueing provided for AD management, directional changes, and posture. ? ASSESSMENT:?Pt appears to have progressed to baseline level of mobility with use of FWW. Pt with no further episodes of instability. PLAN: if pt remains inpatient 1-2x/day, 7 days/week x 1 week. Plan of care has been reviewed with the [employer] MACHINE OPERATOR providing the service under Physical Therapy direction. Initiate Physical Therapy intervention for strengthening, bed mobility, transfers, gait, balance training, use of assistive device. TREATMENT CODE/TIME:41116/5243-2110 DISCHARGE RECOMMENDATION:MATTY PT
[2025-03-24 13:10] VITALS: BP 124/36; PULSE 78; RESP 16; TEMP 37; O2SAT 99
[2025-03-24 13:25] VITALS: BP 124/41; PULSE 78; RESP 16; TEMP 37.3; O2SAT 100
[2025-03-24 13:55] VITALS: BP 120/44; PULSE 70; RESP 16; TEMP 37.1; O2SAT 100
--- NOTE | 2025-03-24 14:19 | DSE_ITS ---
Date of service: 03/24/25 Time of Service: 14:19 DS: Diagnosis Discharge Diagnosis (1) CHF exacerbation: Status: Acute (2) Anemia: Status: Chronic (3) Acute renal failure: Status: Acute (4) UTI (urinary tract infection): Status: Acute (5) Encephalopathy: Status: Chronic (6) Type 2 diabetes mellitus: Status: Chronic (7) Hypokalemia: Status: Resolved Discharge Plan Disposition Patient Disposition: Home W/Home Health Services Condition: Stable Discharge Details Reason For Visit: CHF exacerbation, ANTHONY, UTI Admit Date/Time: 03/21/25 04:03 Admit Provider: Devin Carlson Attending Provider: Devin Carlson Primary Care Provider: Jefe Coffey Hospital Course Hospital Course: The patient presented with increasing peripheral edema, weight gain, and worsening shortness of breath, consistent with an acute exacerbation of her chronic congestive heart failure. She also experienced hypoxia. Her symptoms worsened after taking an extra dose of torsemide (40 mg) the day before admission and she was subsequently given 40 mg IV Lasix in the emergency department. The patient has a history of chronic medical issues, including CHF, anemia, and a prior history of GI blood loss, which contributed to her current anemia (hemoglobin < 7 g/dL). Hospital Course: * Congestive Heart Failure Exacerbation: * The patient was diagnosed with acute exacerbation of CHF with pulmonary vascular congestion as seen on chest imaging. Although the BNP level was normal, imaging and clinical findings were consistent with fluid overload. * IV Lasix (40 mg) was administered in the ED. She received 2 units of packed red blood cells for symptomatic anemia. No further fluid infusions were given to avoid worsening her renal function. Diuretics (Torsemide 40 mg) continued at home * Anemia: * The patient is known to have chronic GI blood loss leading to anemia, which was acutely worsened during this hospitalization. * Three units of PRBCs were transfused. Close monitoring for fluid overload and follow-up with specialty care [place] [facility] are planned to address the ongoing blood loss and recurrent anemia. * Acute Renal Failure (ANTHONY): * The ANTHONY may have been precipitated by Bactrim (used for UTI) and the extra dose of torsemide. Discharged to home on Cipro. * Monitor renal function with ongoing diuresis and blood product repletion. The ANTHONY is expected to resolve with resolution of the underlying infection and careful management of fluids. * Urinary Tract Infection (UTI): * The patient developed a UTI, with a pathogen identified on culture (sensitive to Ciprofloxacin). * IV antibiotics (Cipro) were initiated and will be continued as oral therapy upon discharge. Bactrim will be avoided due to its potential contribution to ANTHONY. * Chronic Encephalopathy: * Chronic hepatic encephalopathy, likely secondary to cirrhosis and elevated ammonia levels. * Continue outpatient lactulose therapy. * Type 2 Diabetes Mellitus: * Diabetes is controlled at home with medication. * Other Conditions: * GAVE (Gastric Antral Vascular Ectasia): Continue follow-up with GI. * Acquired Arteriovenous Malformation: Continue GI follow-up. * Chronic Low Back Pain: Continue oxycodone as needed for pain management. No signs of misuse. * Obstructive Sleep Apnea: Continue home CPAP use. Plan: * Discharge Medication: * Torsemide 40 mg (oral) daily * Ciprofloxacin (oral), completing the course for UTI * Continue home medications, including: * Metformin, Ropinirole, Pantoprazole, Lactulose, and others as noted in the medication list * Follow-Up: * GI follow-up: For chronic anemia and GAVE at [facility] on [place]/25/25 @ 11 am * Cardiology: Follow up on CHF and management of fluid status. * Renal: Close monitoring of renal function with possible nephrology follow- up. * Diabetes: Monitor glucose levels and adjust medications as needed. * * Return to Home: The patient is stable for discharge and plans to return home to her son. She is a full code. RESUMPTION OF HOME HEALTH NURSING, PT, OT AND INTERNAL CONTROL CONSULTANT Home Meds and New Rx's Prescriptions: New ciprofloxacin HCl 500 mg tablet 500 mg PO BID Qty: 7 0RF Rx Instructions: first dose this evening Continued oxycodone 5 mg tablet 5 mg PO Q6H PRN lactulose 10 gram/15 mL solution 30 ml PO TID metformin 1,000 mg Tablet 1,000 mg PO BID ropinirole 2 mg Tablet 2 mg PO TID nystatin 100,000 unit/gram Powder 6,000,000 unit topical TID Qty: 60 0RF Rx Instructions: apply to reddened skin folds doxepin 10 mg capsule 30 mg PO QHS Patient Comments: 20 mg once a day pantoprazole 40 mg Tablet,Delayed Release (Dr/Ec) 40 mg PO BID oxybutynin chloride 5 mg Tablet 5 mg PO BID Qty: 60 0RF torsemide 20 mg tablet 40 mg PO DAILY Patient Comments: TAKE TWO TABLETS BY MOUTH EVERY DAY fluoxetine 40 mg capsule 40 mg PO DAILY ondansetron HCl 4 mg tablet 4 mg PO DAILY PRN Patient Comments: TAKE ONE TABLET BY MOUTH EVERY DAY NEEDED FOR NAUSEA magnesium oxide 400 mg magnesium tablet 400 mg PO DAILY Qty: 30 0RF sulfamethoxazole-trimethoprim 800-160 mg tablet 1 tab PO BID glipizide 5 mg tablet 5 mg PO DAILY amlodipine 5 mg tablet 5 mg PO DAILY prednisone 20 mg tablet 40 mg PO DAILY Patient Comments: TAKE THREE TABLETS BY MOUTH EVERY DAY FOR 5 DAYS THEN TAKE TWO TABLETS BY MOUTH EVERY DAY FOR 5 DAYS THEN TAKE ONE TABLET BY MOUTH EVERY DAY Rx Instructions: tapered dose. 40mg one more day then 20mg daily for 5 days Jardiance 10 mg tablet 10 mg PO DAILY potassium chloride 20 mEq tablet extended release 20 meq PO DAILY Rx Instructions: with meals Discontinued atorvastatin 40 mg Tablet 80 mg PO DAILY Qty: 30 0RF levofloxacin 750 mg tablet 750 mg PO DAILY Patient Comments: TAKE ONE TABLET BY MOUTH EVERY DAY Discharge Instructions Instructions: Ciprofloxacin (Systemic), Gastrointestinal Bleeding (DC) Additional Instructions: Continue home medications RESUMPTION OF HOME HEALTH NURSING, PT, OT AND INTERNAL CONTROL CONSULTANT Follow-Up Appointments: * Appointment tomorrow at [facility] as planned * Emergency contact: If you notice any new or worsening symptoms, contact your doctor immediately or visit the emergency room. 2. Dietary Restrictions: * Avoid heavy meals: Stick to a bland diet for the first few days (e.g., clear liquids, broths, and soft foods like bananas, applesauce, rice, and toast). * Avoid irritants: Limit spicy foods, caffeine, alcohol, and acidic foods like citrus or tomatoes until advised otherwise. * Gradually reintroduce foods: Slowly reintroduce regular foods as tolerated, but avoid foods that might irritate your stomach. * Drink plenty of fluids to stay hydrated, but avoid alcohol and caffeine for the next few days. 3. Medications: * Take prescribed medications as directed (e.g., proton pump inhibitors, antacids, or antibiotics). * Avoid NSAIDs (e.g., ibuprofen, aspirin) for pain relief unless your doctor advises otherwise, as these can irritate your stomach. 4. Signs of Complications: Call your doctor or seek emergency care if you experience: * New or worsening symptoms such as: * Increased or persistent abdominal pain * More black or tarry stools (which may indicate ongoing bleeding) * Vomiting blood or jbbbft-betnhp-shim material * Dizziness, lightheadedness, or fainting * Severe weakness or fatigue * Shortness of breath * If you notice any changes in stool color (bright red or black, which can indicate ongoing bleeding). 5. Activity Level: * Rest for the next few days as your body recovers. * Avoid strenuous physical activities or heavy lifting for at least 1-2 weeks, or as instructed by your doctor. * Gradually increase activity as tolerated, but listen to your body. 6. Hygiene: * Wash your hands frequently, especially before eating and after using the bathroom, to reduce the risk of infection. 7. Lifestyle and Prevention: * Stop smoking if you smoke, as tobacco can irritate your gastrointestinal tract and increase the risk of further bleeding. * Limit alcohol intake and avoid any alcoholic beverages until cleared by your doctor. * Manage stress with relaxation techniques like deep breathing, meditation, or gentle exercise (e.g., walking) once you're ready. 8. Emergency Contact Information: * If you have any concerns, you can call your doctor?s office or the hospital where you were treated. * If you experience an emergency, go to the nearest emergency department or call 911. Important Reminders: * Stay vigilant about your symptoms. If you're uncertain whether something is a complication or part of the healing process, it?s always safer to call your healthcare provider. * Your healing process is gradual. Don?t majano back to your normal routine?allow your body time to recover fully. Stand Alone Forms: Nursing Discharge Form Referrals: Jefe Coffey [Primary Care Provider] - 03/30/25 11:20 am (1 week post hospitalization for GI Bleed w transfusions.) Activity:: Activity as Tolerated Equipment/Supplies:: No Equipment Needed Diet:: As Tolerated Discharge Orders Discharge Orders: Discharge Order (Routine); Ordered 03/24/25 Ordered By: Diann Machuca Discharge Data Discharge Date/Time-TO BE ENTERED AT DEPARTURE: 03/24/25 15:38 DS: Summary Time Spent with Patient providing and/or coordinating discharge services: Greater than 30 minutes Status at Discharge Functional status at discharge: independent ambulation Overall status at discharge: patient is back to baseline Mental Status: mental status grossly normal Speech and Movement: speech and movement normal Mood: congruent mood Affect: normal affect Quality:SDOH Health Related Social Needs: Health related social needs housing instability, house d, with risk of homelessness (Z59.811), problems finding work (Z56.9) Health related social needs details patient needs care gtiver when discharge. Health related social needs details: patient needs caregtiver when discharge. Exam Narrative Exam Narrative: Elderly female in no acute distress head is atraumatic eyes nonicteric noninjected facial features symmetrical oral mucosas moist no oral exudates neck is supple with full range of motion no meningeal signs respirations are even and unlabored her breath sounds are clear bilaterally abdomen is obese soft nontender positive bowel sounds she moves all extremities equally. Neurologic she is awake alert oriented no focal deficits psychiatric normal mood and affect Psych Mental Status: mental status grossly normal Speech and Movement: speech and movement normal Mood: congruent mood Affect: normal affect DS: Data Vitals/I&O Vitals and I&O: Vital Signs Temperature 37.1 C 03/24/25 13:55 Temperature Source Temporal Artery Scan 03/24/25 11:21 Pulse 70 03/24/25 13:55 Pulse Rhythm Irregular 03/21/25 06:04 Pulse 74 05/18/25 05:31 Respiratory Rate 16 03/24/25 13:55 Respiratory Effort Non-Labored 03/21/25 06:04 Respiratory Depth Normal 03/21/25 06:04 Respiratory Pattern Normal 03/21/25 01:05 Blood Pressure 120/44 L 03/24/25 13:55 Blood Pressure Mean 59 03/24/25 11:21 Blood Pressure Position Supine 03/21/25 01:05 Pulse Oximetry 100 03/24/25 13:55 Oxygen Delivery Method Room Air 03/24/25 13:55 Oxygen Flow Rate 0 03/24/25 13:55 Pain Level 0 03/23/25 22:59 Comment RN notified 03/24/25 11:21 Intake & Output 03/23/25 03/24/25 03/24/25 23:59 11:59 23:59 Intake Total 500 / 810 150 / 400 250 / 400 Output Total 800 / 1900 Balance -300 / -1090 150 / 400 250 / 400 Intake: IV 250 / 560 150 / 150 Oral 250 / 250 Blood Product 250 / 250 Rbc Leuko Reduced Unit 250 / 250 [id number] Output: Urine 800 / 1900 Other: Urine Color Yellow Yellow Urine Appearance Clear Clear Urine Odor None Comment pt voided independently, unmeasurable. Stool Size Moderate Stool Characteristics Soft Data Completed and Pending Labs on day of discharge: Labs from last 24 hours 03/24/25 09:05: ABO/Rh Cancelled, Antibody Screen Cancelled, Crossmatch See Detail 03/24/25 06:20: WBC 5.02, RBC 3.15 L, Hgb 7.7 L, Hct 25.4 L, MCV 81, MCH 24.4 L, MCHC 30.3 L, RDW 17.2 H, Plt Count 93 L, MPV 11.4 H, Immature Gran % 0.2, Neutrophils % 60.2, Lymphocytes % 17.5, Monocytes % 13.9, Eosinophils % 7.2, Basophils % 1.0, Nucleated RBC % 0.0, Absolute Neutrophils 3.02, Absolute Lymphocytes 0.88 L, Absolute Monocytes 0.70, Absolute Eosinophils 0.36, Absolute Basophils 0.05, RBC Morphology Normal, Sodium 136, Potassium 3.5, Chloride 102, Carbon Dioxide 33.8 H, Anion Gap 0.2 L, BUN 24 H, Creatinine 1.3 H, Est GFR (CKD-EPI 2020) 44.51, Glucose 168 H, Calcium 8.5, Magnesium 1.9 03/23/25 15:17: Hgb 8.2 L, Hct 26.7 L 03/21/25 01:42: ABO/Rh O Positive, Antibody Screen NEGATIVE, Crossmatch See Detail PFSH All Active Problems (Updated 03/21/25 @ 06:45 by Devin Carlson) UTI (urinary tract infection) (Acute) Anemia (Chronic) Encephalopathy (Chronic) Presumed secondary to chronic liver disease. Chronically elevated ammonia level. On lactulose. 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 Left clavicle Excess skin of eyelid Pituitary cyst Hypersomnia GAVE (gastric antral vascular ectasia) JAYDEN (obstructive sleep apnea) Acquired arteriovenous malformation Atypical angina Biliary dyskinesia Lung nodule Submucosal neoplasm of stomach Anemia Dermoid cyst History of peptic ulcer disease Osteoarthritis Pancreatitis Hypertensive disorder Hepatic encephalopathy Edema Atrophy of vagina Atrophic vaginitis Actinic keratosis Pituitary adenoma Restless legs Neoplasm of parotid gland Lumbar spondylosis Lesion of esophagus Dyslipidemia Depressive disorder Crohn's disease Chronic low back pain Anxiety Anemia Cirrhosis SALCIDO (nonalcoholic steatohepatitis) CHF (congestive heart failure) Anasarca Surgical History History of oophorectomy, unilateral History of rotator cuff surgery bilateral History of total knee arthroplasty bilateral History of sleeve gastrectomy History of hysterectomy Family History Brother Cancer Lung Alcohol use disorder 2 older brothers Social History Smoking/Tobacco Use Status: Never Smoking risk assessment performed?: Yes Alcohol Intake: never Drug use: Never Substance use type: does not use Housing: house Current gender identity: female Do you feel safe at home: Yes Do you feel safe in your relationship?: Yes Additional Social history: Lives with Arslan, and son in [place]. Moved from [place] in 2020. Has a dog and 8 pet birds. Time Spent with Patient Time Spent with Patient: 45-69 minutes Time was spent: preparing to see the patient(eg.review tests), ordering medications,tests, procedures, referring, communicating with other health critical care paramedic, indepentently interpreting results, counseling the patient and care coordination
--- NOTE | 2025-03-24 14:47 | CMDISCH_ITS ---
Date of service: 03/24/25 Time of Service: 14:47 LACE Index Scoring Tool Questions: Length of Stay (in days): 3 Was the patient admitted via the E.D.?: Yes Comorbidities: Previous M.I., Congestive Heart Failure, Chronic Pulmonary Disease, Any Tumor and Liver or Renal Disease E.D. Visits: 5 Answers: Total Score: 15 Risk of Readmission: High Risk Care Management Discharge Plan Reason for Hospitalization: CHF exacerbation, anemia Discharge Plan: Re will be discharged home with a resumption of her home health services for nursing and PT. She will follow up with her community providers and plan of care and transport with her son Isra. Patient/Family Education Needs: review discharge instructions, limitations, follow up plan and discuss Ask Me Three Services Needed at Discharge: Home Health Care Services (resumption of SN, PT, OT) SDOH Health Related Social Needs: Health related social needs housing instability, house d, with risk of homelessness (Z59.811), problems finding work (Z56.9) Health related social needs details patient needs care gtiver when discharge. Health related social needs details: patient needs caregtiver when discharge.
== END 2025-03-24 15:38 | disposition home health service (06) | DRG 291 ==
LOC: ER 04:23 → MS 05:52
PROVIDERS: Hospitalist; Nurse Practitioner Acute Care; Admitting Provider Family Medicine; Emergency Provider Student in an Organized Health Care Education/Training Program; PCP Family Medicine; Responsible Provider Nurse Practitioner Family; Visit Provider Family Medicine
DX: I11.0 Hypertensive heart disease with heart failure (principal); I50.33 Acute on chronic diastolic (congestive) heart failure; K31.811 Angiodysplasia of stomach and duodenum with bleeding; N17.9 Acute kidney failure, unspecified; N30.00 Acute cystitis without hematuria; Z68.42 Body mass index [BMI] 45.0-49.9, adult; D50.0 Iron deficiency anemia secondary to blood loss (chronic); K76.82 Hepatic encephalopathy; E11.9 Type 2 diabetes mellitus without complications; M54.50 Low back pain, unspecified; G89.29 Other chronic pain; G47.33 Obstructive sleep apnea (adult) (pediatric); K74.69 Other cirrhosis of liver; E87.6 Hypokalemia; G25.81 Restless legs syndrome; E78.5 Hyperlipidemia, unspecified; F32.A Depression, unspecified; F41.9 Anxiety disorder, unspecified; E66.9 Obesity, unspecified; M47.816 Spondylosis without myelopathy or radiculopathy, lumbar region; Z79.4 Long term (current) use of insulin; Z79.84 Long term (current) use of oral hypoglycemic drugs; Z79.891 Long term (current) use of opiate analgesic
CPT/HCPCS: 00123; 36415; 80048; 80053; 82805; 85027; 86850; 86900; 86901; 86920; 87637; 93005; 96365; 96375; 97110; 97161; 97530; 99291; 71045; 81003; 83735; 83880; 84484; 85014; 85018; 85025; 85610; 85730; 93010; 94760; 99223; 99232; 99239; J0744; J1815; J1938; J2470; P9016

== ENCOUNTER 2025-03-26 15:36 | Emergency (ER) | payer MEDICARE, SELFPAY ==
[2025-03-26] VITALS (53 sets, daily range): BP systolic 89–146; BP diastolic 20–66; PULSE 71–88; RESP 8–29; O2SAT 91–99
--- NOTE | 2025-03-26 15:45 | RT.EKG_ITS ---
APPROVED REPORT Exam: Resting ECG Reason for Exam: AMS Patient Location: E HR:76 bpm ECG Measurements Heart Rate 76 AXIS TX 179 P 64 QRSd 88 QRS 51 QT 457 T 36 QTc 514 Conclusion Sinus rhythm...normal P axis, V-rate 60- 99 Prolonged QT interval...QTc >500mS No Occlusion TN
[2025-03-26] MEDS: Pantoprazole 40 MG VIAL IVP (17:17)
[2025-03-26 17:43] LABS: Bilirubin Negative (Negative); Blood Small (Negative); Clarity Clear (Clear); Glucose >=1000 mg/dL (Negative); Ketones Negative (Negative); Leukocyte Esterase Negative (Negative); Nitrite Negative (Negative); pH 5.5 (5-8)
[2025-03-26 17:51] LABS: Epithelial Cells Moderate HPF (Negative); Other Cells Rare Yeast (Negative); RBC 0-2 HPF (0-2)
[2025-03-26 17:52] LABS: Bacteria Few HPF (Negative); C & S Indicated? No; Casts Negative LPF (Negative); Crystals Negative HPF (Negative); Mucus Negative (Negative)
[2025-03-26 18:17] LABS: Lactate 1.7 mmol/L (<or=2.0)
[2025-03-26 18:19] LABS: Abs Immature Grans 0.03 10^3/uL (0.0-0.06); Absolute Basophil Count 0.06 10^3/uL (0.0-0.2); Absolute Eosinophil Count 0.21 10^3/uL (0.0-0.7); Absolute Lymphocyte Count 1.12 10^3/uL (1.2-3.4); Absolute Monocyte Count 1.12 10^3/uL (0.1-0.8); Absolute Neutrophil Count 7.09 10^3/uL (1.2-6.7); Basophils % 0.6 %; Eosinophils % 2.2 %; HCT 25.5 % (36.0-46.0); HGB 7.9 g/dL (11.2-15.7); Immature Grans % 0.3 %; Lymphocytes % 11.6 %; MCH 25.2 pg (27.0-33.0); MCV 82 fL (80-95); Monocytes % 11.6 %; Neutrophils % 73.7 %; Platelet Count 105 10^3/uL (130-400); RBC 3.13 10^6/uL (3.93-5.22); RDW 17.2 % (11.7-14.6); RDW-SD 51.5 fL; WBC 9.63 10^3/uL (4.4-10.8)
[2025-03-26 18:35] LABS: ALT 24 U/L (14-59); AST 49 U/L (15-37); Albumin 2.2 g/dL (3.4-5.0); Alkaline Phosphatase 152 U/L (46-116); Anion Gap 3.9 mmol/L (3-11); BUN 22 mg/dL (7-18); Bilirubin, Total 2.2 mg/dL (0.2-1.0); CO2 31.1 mmol/L (21.0-32.0); CREATININE 1.1 mg/dL (0.55-1.02); Calcium 8.4 mg/dL (8.5-10.1); Chloride 104 mmol/L (98-107); Estimated GFR 54.39 (mL/min/1.73m2); Glucose 155 mg/dL (74-106); Potassium 3.3 mmol/L (3.5-5.1); Sodium 139 mmol/L (136-145)
[2025-03-26 18:38] LABS: Hypochromasia 2+; Polychromasia Present
[2025-03-26 18:39] LABS: Lipase 19 U/L (<78)
[2025-03-26 19:17] LABS: Troponin I 58 ng/L (<or=51)
[2025-03-26 19:20] LABS: INR 1.3 (0.9-1.1); Prothrombin Time 12.5 sec (9.1-11.1)
[2025-03-26 19:20] LABS: COVID-19 PCR Negative (Negative); Influenza A PCR Negative (Negative); Influenza B PCR Negative (Negative); RSV PCR Negative (Negative); Source Nasopharynx
[2025-03-26] MEDS: Omnipaque 350 MG/ML 100 ML BTL IJ (19:38)
[2025-03-26] MEDS: Normal Saline - Diluent 50 ML VIAL IJ (19:39)
--- NOTE | 2025-03-26 19:46 | DI.CT_ITS ---
Exam(s) CT THORAX ABD/PEL CTA EXAM: CT THORAX ABD/PEL CTA CLINICAL HISTORY: s/p endoscopy yesterday, hx of varices, epi pain,. TECHNIQUE: Imaging Protocol: Axial CT angiography was performed with multi-slice acquisition and mu lti-planar and/or 3D reconstructions. Computer aided detection (CAD) was utilized. CONTRAST MATERIAL: Intravenous: Omnipaque 350 Contrast volume:100 ml Intravenous: Omnipaque 350 Contrast volume:100 ml COMPARISON: CT CT ABDOMEN PELVIS W from 11/16/2024 CR,XR XR PORTABLE CHEST AP from 03/21/2025 FINDINGS: CHEST: Pulmonary Arteries: No evidence of filling defects to suggest pulmonary emboli. Tracheobronchial tree: No bronchiectasis or mucus plugging. Mediastinum and Grace: No dominant adenopathy or fluid collection. Pulmonary parenchyma: No consolidation or dominant measurable mass. Mild basilar atelectasis, righ t greater than left. Pleura: Small right and trace left pleural effusions. No pneumothorax. Heart: The heart is notdilated. No coronary artery calcifications are seen. No pericardial effusion. Aorta: Thoracic aorta non-dilated. Minimal atherosclerotic calcification. No evidence of dissectio n. Bones: No compression fracture. Flowing osteophytes. Tubes, Catheters, and Lines: None. Soft tissues: Significant diffuse body wall edema. ABDOMEN and PELVIS: Liver: Cirrhotic appearing liver. No suspicious measurable mass. Gallbladder and Biliary Tract: Cholecystectomy. No biliary dilatation. Pancreas: Normal density, no abnormal calcifications or inflammatory process. Spleen: Enlarged. Adrenals: No masses seen. Kidneys: Normal size, contour and axis. No radiodense stones. No obstructive uropathy. No masses seen . Vasculature: Abdominal aorta non-dilated. Mild atherosclerotic changes of the aorta. SMA, celiac ax is, renal arteries and JOSH are all patent and without significant stenosis. Varices noted in the left upper quadrant as well as within the mesentery and perirectal region. The IVC is distended. No evidence of portal venous thrombosis or other venous thrombosis. Bowel: Suture material at stomach. Marked circumferential wall thickening of the gastric antrum may represent gastritis. No perforated ulcer visible. No obstruction . Appendix is unremarkable. Peritoneal Cavity: Small to moderate quantity of ascites, increasing from the prior exam. No focal c ollection or mesenteric inflammatory response. Lymph Nodes: Within normal limits. Soft Tissues: Diffuse body wall edema. Skin thickening of the anterior abdominal wall greater inferi arnold. Bladder: No stones. No gross wall thickening. Reproductive Organs: Hysterectomy. Bones: Schmorl's node superior endplate of L4. Degenerative disc changes and facet degenerative cueto ges. Pleura: No pneumothorax. IMPRESSION: 1. No evidence of pulmonary embolism. Small right and trace left pleural effusions. 2. cirrhosis. Small to moderate quantity of ascites, increasing from prior. Splenomegaly. Multiple varices. Severe body wall edema. 3. Thickening of the wall of the gastric antrum may represent gastritis. No evidence of perforation. The preliminary [facility] report was reviewed. RADIATION DOSE DELIVERED: Total DLP Total DLP DATA REPOSITORY: All CT scans at this facility are submitted to the National Radiology Data Registry (NRDR) Dose Index Registry (DIR) with the [employer] (A[employer]). RADIATION OPTIMIZATION: All CT scans at this facility use at least one of these dose optimization te chniques: automated exposure control; mA and/or kV adjustment per patient size (includes targeted exa ms where dose is matched to clinical indication); or iterative reconstruction.
[2025-03-26 19:58] LABS: Troponin I 48 ng/L (<or=51)
[2025-03-26] MEDS: ACETAMINOPHEN 500 MG/50 ML BAG 200 MG IVPB (20:06)
--- NOTE | 2025-03-26 20:17 | DI.[facility]_ITS ---
PROCEDURE INFORMATION: Exam: CTA Chest With Contrast CTA Abdomen and Pelvis With Contrast Exam date and time: 03/26/2025 7:36 PM Age: 69 years old Clinical indication: Abdominal pain; Epigastric pain; HX varices. Prior surgery; date: 6+ months: Hyst, Sleeve gastrectomy; S/P endoscopy yesterday TECHNIQUE: Imaging protocol: Computed tomographic angiography of the chest with contrast. Exam focused on the arteries. Computed tomographic angiography of the abdomen and pelvis with contrast. Exam focused on the arteries. 3D rendering (Not supervised by radiologist): MIP and/or 3D reconstructed images were created by the technologist. Radiation optimization: All CT scans at this facility use at least one of these dose optimization techniques: automated exposure control; mA and/or kV adjustment per patient size (includes targeted exams where dose is matched to clinical indication); or iterative reconstruction. Contrast material: [id number]; Contrast volume: 100 ml; Contrast route: INTRAVENOUS (IV); COMPARISON: CT CHEST/ABD/PEL WO 05/30/2024 2:21 AM FINDINGS: VASCULATURE: Pulmonary arteries: No evidence of acute pulmonary embolism. Aorta: Normal caliber thoracic / abdominal aorta without dissection or aneurysm. Celiac trunk and mesenteric arteries: No occlusion or significant stenosis. Renal arteries: No occlusion or significant stenosis. Right iliac arteries: No occlusion or significant stenosis. Left iliac arteries: No occlusion or significant stenosis. Other findings: Right abdominal vascular collaterals. Medial left upper quadrant venous collaterals. CHEST: Lungs: No acute alveolar or ground glass infiltrate. Minimal compressive atelectasis within each posterior lower lobe. Pleural spaces: Small right pleural fluid collection. Trace left pleural fluid. No pneumothorax. Heart: No right ventricular strain. No pericardial effusion. ABDOMEN AND PELVIS: Liver: No mass. Gallbladder and biliary ducts: Status post cholecystectomy. No biliary tract dilatation. Pancreas: Unremarkable. No mass. No ductal dilation. Spleen: Splenomegaly (15.2 cm CC dimension). Adrenal glands: Unremarkable. No mass. Kidneys and ureters: Unremarkable. No solid mass. No hydronephrosis. Stomach and bowel: Wall thickening of the gastric antrum which may reflect a gastritis or ulcer disease. Prior gastric sleeve surgery. No generalized ileus or obstruction. Appendix: No evidence of appendicitis. Intraperitoneal space: No intraperitoneal free air. Small amount of ascites. Urinary bladder: Unremarkable. No mass. Reproductive: Lobulated uterus indicating cirrhosis. Prior hysterectomy. Lymph nodes: No enlarged lymph nodes. Bones/joints: Spinal degenerative changes. Soft tissues: Subcutaneous soft tissue edema. IMPRESSION: 1. Normal caliber thoracic / abdominal aorta without dissection or aneurysm. 2. No evidence of acute pulmonary embolism. 3. No acute pulmonary infiltrate. 4. Minimal compressive atelectasis within each posterior lower lobe. 5. Small right pleural fluid collection. Trace left pleural fluid. 6. Wall thickening of the gastric antrum which may reflect a gastritis or ulcer disease. 7. Prior gastric sleeve surgery. No generalized ileus or obstruction. 8. Cirrhosis. Splenomegaly (15.2 cm CC dimension) reflecting portal venous hypertension. Small amount of ascites. 9. Subcutaneous soft tissue edema. Dictated and Authenticated by: Bairon Brock MD. Orderin Raj Rubin MD
--- NOTE | 2025-03-26 22:12 | W.ED.GENAD ---
Discharge Plan Disposition Patient Disposition: Home Condition: Stable Discharge Details Clinical Impression: Acute epigastric pain, Anemia Primary Care Provider: Jefe Coffey ED Provider: Caryn Anthony Home Meds and New Rx's Prescriptions: Continued oxycodone 5 mg tablet 5 mg PO Q6H PRN lactulose 10 gram/15 mL solution 30 ml PO TID metformin 1,000 mg Tablet 1,000 mg PO BID ropinirole 2 mg Tablet 2 mg PO TID nystatin 100,000 unit/gram Powder 6,000,000 unit topical TID Qty: 60 0RF Rx Instructions: apply to reddened skin folds doxepin 10 mg capsule 30 mg PO QHS Patient Comments: 20 mg once a day pantoprazole 40 mg Tablet,Delayed Release (Dr/Ec) 40 mg PO BID oxybutynin chloride 5 mg Tablet 5 mg PO BID Qty: 60 0RF torsemide 20 mg tablet 40 mg PO DAILY Patient Comments: TAKE TWO TABLETS BY MOUTH EVERY DAY fluoxetine 40 mg capsule 40 mg PO DAILY ondansetron HCl 4 mg tablet 4 mg PO DAILY PRN Patient Comments: TAKE ONE TABLET BY MOUTH EVERY DAY NEEDED FOR NAUSEA magnesium oxide 400 mg magnesium tablet 400 mg PO DAILY Qty: 30 0RF glipizide 5 mg tablet 5 mg PO DAILY amlodipine 5 mg tablet 5 mg PO DAILY Jardiance 10 mg tablet 10 mg PO DAILY potassium chloride 20 mEq tablet extended release 20 meq PO DAILY Rx Instructions: with meals ciprofloxacin HCl 500 mg tablet 500 mg PO BID Qty: 7 0RF Rx Instructions: first dose this evening Discharge Instructions Instructions: Abdominal Pain, Adult ED Additional Instructions: Your blood pressure is stable when compared to your levels in the past One of your heart enzyme levels was slightly elevated but down trended in the emergency department and I spoke with cardiology and this is not likely elevated secondary to acute heart event, I do recommend following up with your doctor Recommend continuing to take the pantoprazole twice daily and add Pepcid to the regimen The rest of your tests are improving it looks like your anemia is actually improving postprocedure Please follow-up with your primary care physician on Saturday and return earlier should you have new or worsening complaints make sure you are not taking your amlodipine Referrals: Jefe Coffey [Primary Care Provider] - 3 days HPI General Date/Time Provider Initiated Documentation: 03/26/25 15:36. HPI Narrative: The patient is a 69-year-old female with a history of varices, presenting with low diastolic blood pressure and epigastric pain following an endoscopy performed yesterday at [facility]. She reports a fever of 102 degrees last night. Negative for chest pain, shortness of breath, falls, injuries, chest discomfort, or calf pain or swelling. Related Data Home Medications ?Medication ?Instructions ?Recorded ?Confirmed metformin 1,000 mg tablet 1,000 mg PO BID 11/09/22 03/26/25 ropinirole 2 mg tablet 2 mg PO TID 11/09/22 03/26/25 pantoprazole 40 mg tablet,delayed 40 mg PO BID 12/15/22 03/26/25 release nystatin 100,000 unit/gram topical 6,000,000 unit topical TID #60 02/05/23 03/26/25 powder grams lactulose 10 gram/15 mL oral 30 ml PO TID 06/26/23 03/26/25 solution oxybutynin chloride 5 mg tablet 5 mg PO BID #60 tabs 11/13/23 03/26/25 torsemide 20 mg tablet 40 mg PO DAILY 01/23/24 03/26/25 fluoxetine 40 mg capsule 40 mg PO DAILY 01/24/24 03/26/25 ondansetron HCl 4 mg tablet 4 mg PO DAILY PRN 04/16/24 03/26/25 magnesium oxide 400 mg PO DAILY #30 tabs 06/02/24 03/26/25 doxepin 10 mg capsule 30 mg PO QHS 10/24/24 03/26/25 oxycodone 5 mg tablet 5 mg PO Q6H PRN 01/11/25 03/26/25 amlodipine 5 mg tablet 5 mg PO DAILY 03/21/25 03/26/25 empagliflozin 10 mg tablet 10 mg PO DAILY 03/21/25 03/26/25 (Jardiance) glipizide 5 mg tablet 5 mg PO DAILY 03/21/25 03/26/25 potassium chloride 20 mEq 20 meq PO DAILY 03/21/25 03/26/25 tablet,extended release ciprofloxacin HCl 500 mg tablet 500 mg PO BID #7 tabs 03/24/25 03/26/25 Previous Rx's ?Medication ?Instructions ?Recorded nystatin 100,000 unit/gram topical 6,000,000 unit topical TID #60 02/05/23 powder grams oxybutynin chloride 5 mg tablet 5 mg PO BID #60 tabs 11/13/23 magnesium oxide 400 mg PO DAILY #30 tabs 06/02/24 ciprofloxacin HCl 500 mg tablet 500 mg PO BID #7 tabs 03/24/25 Allergies Allergy/AdvReac Type Severity Reaction Status Date / Time Penicillins Allergy Severe Swelling/Ed Verified 03/26/25 15:45 sophie tramadol Allergy Severe Swelling/Ed Verified 03/26/25 15:45 sophie apricot Allergy Intermediate Hives Verified 03/26/25 15:45 ferrous sulfate Allergy Unknown Other (See Verified 03/26/25 15:45 Comment) raspberry Allergy Other (See Verified 03/26/25 15:45 Comment) pineapple AdvReac Intermediate Topical Unverified 03/26/25 15:45 Irritation vancomycin AdvReac Intermediate Other (See Verified 03/26/25 15:45 Comment) General Stated Complaint: Abd Prob CHELA: 3 Exam Narrative Exam Narrative: The patient is alert and oriented, but appears chronically ill. There is tenderness in the epigastrium. Distal pulses are intact in all four extremities. Cardiac rate rhythm regular lungs clear to auscultation 1+ edema to bilateral lower extremity distal pulses intact following all basic commands Course Vital Signs Vital signs: Vital Signs Pulse 77 03/26/25 15:38 Respiratory Rate 16 03/26/25 15:38 Blood Pressure 115/62 03/26/25 15:38 Pulse Oximetry 98 03/26/25 15:38 Pulse 77 03/26/25 21:50 Pulse 78 03/26/25 21:50 Respiratory Rate 18 03/26/25 21:50 Blood Pressure 89/25 L 03/26/25 21:46 Blood Pressure Mean 47 03/26/25 21:46 Pulse Oximetry 96 03/26/25 21:50 Oxygen Delivery Method Room Air 03/26/25 17:07 Oxygen Flow Rate 0 03/26/25 17:07 Lab/Test Results Lab/Test Results: 03/26/25 18:57 Blood Blood Culture - Pending 03/26/25 18:03 Blood Blood Culture - Pending Laboratory Tests Range/Units 03/26/25 03/26/25 03/26/25 17:30 18:03 18:37 WBC (4.4-10.8) 10^3/uL 9.63 RBC (3.93-5.22) 10^6/uL 3.13 L Hgb (11.2-15.7) g/dL 7.9 L Hct (36.0-46.0) % 25.5 L MCV (80-95) fL 82 MCH (27.0-33.0) pg 25.2 L MCHC (32.0-36.0) % 31.0 L RDW (11.7-14.6) % 17.2 H Plt Count (130-400) 10^3/uL 105 L MPV (8.0-11.0) fL 11.0 Immature Gran % % 0.3 Neutrophils % % 73.7 Lymphocytes % % 11.6 Monocytes % % 11.6 Eosinophils % % 2.2 Basophils % % 0.6 Nucleated RBC % (0.0-0.3) % 0.0 Absolute Neutrophils (1.2-6.7) 10^3/uL 7.09 H Absolute Lymphocytes (1.2-3.4) 10^3/uL 1.12 L Absolute Monocytes (0.1-0.8) 10^3/uL 1.12 H Absolute Eosinophils (0.0-0.7) 10^3/uL 0.21 Absolute Basophils (0.0-0.2) 10^3/uL 0.06 RBC Morphology See Below Polychromasia Present Hypochromasia 2+ PT (9.1-11.1) sec INR (0.9-1.1) VBG Lactate (<or=2.0) mmol/L 1.7 Sodium (136-145) mmol/L 139 Potassium (3.5-5.1) mmol/L 3.3 L Chloride (98-107) mmol/L 104 Carbon Dioxide (21.0-32.0) mmol/L 31.1 Anion Gap (3-11) mmol/L 3.9 BUN (7-18) mg/dL 22 H Creatinine (0.55-1.02) mg/dL 1.1 H Est GFR (CKD-EPI 2020) (mL/min/1.73m2) 54.39 Glucose (74-106) mg/dL 155 H Calcium (8.5-10.1) mg/dL 8.4 L Total Bilirubin (0.2-1.0) mg/dL 2.2 H AST (15-37) U/L 49 H ALT (14-59) U/L 24 Alkaline Phosphatase (46-116) U/L 152 H Troponin I (<or=51) ng/L 58 H* Total Protein (6.4-8.2) g/dL 5.0 L Albumin (3.4-5.0) g/dL 2.2 L Lipase (<78) U/L 19 Urine Color (Yellow) Yellow Urine Clarity (Clear) Clear Urine pH (5-8) 5.5 Ur Specific Dora (1.005-1.025) 1.020 Urine Protein (Neg-Trace) mg/dL Negative Urine Ketones (Negative) mg/dL Negative Urine Blood (Negative) Small H Urine Nitrite (Negative) Negative Urine Bilirubin (Negative) Negative Urine Urobilinogen (Up to 0.2) mg/dL 1.0 H Ur Leukocyte Esterase (Negative) Negative Urine RBC (0-2) HPF 0-2 Urine WBC (0-5) HPF 3-5 Ur Epithelial Cells (Negative) HPF Moderate Urine Crystals (Negative) HPF Negative Urine Bacteria (Negative) HPF Few Urine Casts (Negative) LPF Negative Urine Mucus (Negative) Negative Urine Other (Negative) Rare Yeast Ur Culture Indicated? No Urine Glucose (Negative) mg/dL >=1000 H COVID-19 Source Nasopharynx SARS-CoV-2 (PCR) (Negative) Negative Influenza Type A (PCR) (Negative) Negative Influenza Type B (PCR) (Negative) Negative RSV (PCR) (Negative) Negative ABO/Rh Antibody Screen Range/Units 03/26/25 03/26/25 18:57 19:31 WBC (4.4-10.8) 10^3/uL RBC (3.93-5.22) 10^6/uL Hgb (11.2-15.7) g/dL Hct (36.0-46.0) % MCV (80-95) fL MCH (27.0-33.0) pg MCHC (32.0-36.0) % RDW (11.7-14.6) % Plt Count (130-400) 10^3/uL MPV (8.0-11.0) fL Immature Gran % % Neutrophils % % Lymphocytes % % Monocytes % % Eosinophils % % Basophils % % Nucleated RBC % (0.0-0.3) % Absolute Neutrophils (1.2-6.7) 10^3/uL Absolute Lymphocytes (1.2-3.4) 10^3/uL Absolute Monocytes (0.1-0.8) 10^3/uL Absolute Eosinophils (0.0-0.7) 10^3/uL Absolute Basophils (0.0-0.2) 10^3/uL RBC Morphology Polychromasia Hypochromasia PT (9.1-11.1) sec 12.5 H INR (0.9-1.1) 1.3 H VBG Lactate (<or=2.0) mmol/L Sodium (136-145) mmol/L Potassium (3.5-5.1) mmol/L Chloride (98-107) mmol/L Carbon Dioxide (21.0-32.0) mmol/L Anion Gap (3-11) mmol/L BUN (7-18) mg/dL Creatinine (0.55-1.02) mg/dL Est GFR (CKD-EPI 2020) (mL/min/1.73m2) Glucose (74-106) mg/dL Calcium (8.5-10.1) mg/dL Total Bilirubin (0.2-1.0) mg/dL AST (15-37) U/L ALT (14-59) U/L Alkaline Phosphatase (46-116) U/L Troponin I (<or=51) ng/L 48 Total Protein (6.4-8.2) g/dL Albumin (3.4-5.0) g/dL Lipase (<78) U/L Urine Color (Yellow) Urine Clarity (Clear) Urine pH (5-8) Ur Specific Dora (1.005-1.025) Urine Protein (Neg-Trace) mg/dL Urine Ketones (Negative) mg/dL Urine Blood (Negative) Urine Nitrite (Negative) Urine Bilirubin (Negative) Urine Urobilinogen (Up to 0.2) mg/dL Ur Leukocyte Esterase (Negative) Urine RBC (0-2) HPF Urine WBC (0-5) HPF Ur Epithelial Cells (Negative) HPF Urine Crystals (Negative) HPF Urine Bacteria (Negative) HPF Urine Casts (Negative) LPF Urine Mucus (Negative) Urine Other (Negative) Ur Culture Indicated? Urine Glucose (Negative) mg/dL COVID-19 Source SARS-CoV-2 (PCR) (Negative) Influenza Type A (PCR) (Negative) Influenza Type B (PCR) (Negative) RSV (PCR) (Negative) ABO/Rh O Positive Antibody Screen NEGATIVE Medical Decision Making Hemoglobin increased from 7.7 to 7.9. Hematocrit increased from 23 to 25. Potassium 3.3. BUN 22, decreased from baseline. Troponin elevated at 58, repeat at 0100 hours james 48, third troponin 42. No UTI, influenza, COVID-19, RSV. CT chest, abdomen, pelvis: no perforation or bleeding. 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 Presented with concern for low diastolic and epigastric pain post-endoscopy. History of varices. Reported fever of 102?F last night. Denies chest pain, shortness of breath, falls, injuries, chest discomfort, calf pain, or swelling. Exam: alert, oriented, chronically ill appearance, tenderness in epigastrium, intact distal pulses. Differential Diagnosis: - Cirrhosis secondary to SALCIDO: Post-endoscopy, no perforation or bleeding. Hemoglobin and hematocrit increased. Potassium 3.3, will supplement. BUN 22, decreased from baseline. Labs: no significant acute abnormalities. No UTI, influenza, COVID-19, RSV. Discharge home in stable condition. - Sepsis: Fever of 102?F last night. No current evidence of sepsis. Monitor for infection. - ACS: Elevated troponin 58, decreased to 48 and 42. Nonischemic EKG. Cardiology: downtrending troponin likely noncardiac, no treatment for non-STEMI. - Epigastric pain: Tenderness in epigastrium. CT: no perforation or bleeding. GI: no additional interventions needed. - Anemia: Hemoglobin and hematocrit increased. - Hypertension: BP stable in ED. - Diabetes mellitus, [id number]: No acute issues. - CHF: No acute exacerbation. ED Course: - CT chest, abdomen, and pelvis: No evidence of perforation or bleeding per radiology interpretation. - Hemoglobin increased from 7.75 days ago to 7.9. - Hematocrit increased from 23 to 25. - Potassium 3.3, will supplement. - BUN 22, decreased from baseline. - Labs: No significant acute abnormalities. - No UTI, influenza, COVID-19, RSV. - No evidence of pneumonia or infiltrate. - Blood pressures: Diastolic consistent, relatively stable in ED. - Elevated troponin 58, repeat at 1-hour james was 48, third troponin was 42. - EKG nonischemic. - Consulted Dr. Horvath, cardiology: Downtrending troponin likely noncardiac, no treatment for non-STEMI. - Consulted Dr. Leal, GI: No additional interventions needed from gastroenterology standpoint. Final Assessment: Patient with multiple comorbidities presented with epigastric pain and fever post-endoscopy. Diagnostic tests including CT and labs showed no acute abnormalities. Troponin levels downtrending, EKG nonischemic. Consultations with cardiology and gastroenterology confirmed no need for further interventions. Patient stable for discharge. Clinical Impression: - Cirrhosis secondary to SALCIDO - Sepsis - ACS - Epigastric pain - Anemia - Hypertension - Diabetes mellitus, [id number] - CHF Disposition: - Discharge home in stable condition. MDM Components Evaluation: - Number of Differential Diagnoses or Management Options: Cirrhosis secondary to SALCIDO, Sepsis, ACS, Epigastric pain, Anemia, Hypertension, Diabetes mellitus ([id number]), CHF. - Amount and Complexity of Data Reviewed: CT chest, abdomen, and pelvis; hemoglobin and hematocrit levels; potassium level; BUN; labs; blood pressures; troponin levels; EKG; consultations with cardiology and gastroenterology. - Risk of Complication and Morbidity or Mortality: Multiple comorbidities including cirrhosis, ACS, and CHF increase risk. Downtrending troponin and stable blood pressures reduce immediate risk. Quality:[facility] Health Related Social Needs: Health related social needs housing instability, housed, with risk of homelessness (Z59.811), problems finding work (Z56.9) Health related social needs details patient needs caregtiver when discharge. 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 Left clavicle Excess skin of eyelid Pituitary cyst Hypersomnia GAVE (gastric antral vascular ectasia) JAYDEN (obstructive sleep apnea) Acquired arteriovenous malformation Atypical angina Biliary dyskinesia Lung nodule Submucosal neoplasm of stomach Anemia Dermoid cyst History of peptic ulcer disease Osteoarthritis Pancreatitis Hypertensive disorder Hepatic encephalopathy Edema Atrophy of vagina Atrophic vaginitis Actinic keratosis Pituitary adenoma Restless legs Neoplasm of parotid gland Lumbar spondylosis Lesion of esophagus Dyslipidemia Depressive disorder Crohn's disease Chronic low back pain Anxiety Anemia Cirrhosis SALCIDO (nonalcoholic steatohepatitis) CHF (congestive heart failure) Anasarca Surgical History History of oophorectomy, unilateral History of rotator cuff surgery bilateral History of total knee arthroplasty bilateral History of sleeve gastrectomy History of hysterectomy Family History Brother Cancer Lung Alcohol use disorder 2 older brothers Social History Smoking/Tobacco Use Status: Never Smoking risk assessment performed?: Yes Alcohol Intake: never Drug use: Never Substance use type: does not use Housing: house Current gender identity: female Do you feel safe at home: Yes Do you feel safe in your relationship?: Yes Additional Social history: Lives with Arslan, and son in [place]. Moved from [place] in 2020. Has a dog and 8 pet birds.
[2025-03-26 22:19] LABS: Troponin I 42 ng/L (<or=51)
--- NOTE | 2025-03-27 08:48 | NUR.NOTE ---
Accessed chart to reconcile orders for EKG with EKG?s in [facility]. Duplicate order cancelled. Nursing Note:
== END 2025-03-26 22:53 | disposition home or self-care (01) ==
PROVIDERS: Emergency Provider Physician Assistant; PCP Family Medicine
DX: R10.13 Epigastric pain (principal); D64.9 Anemia, unspecified; Z59.811 Housing instability, housed, with risk of homelessness; Z56.9 Unspecified problems related to employment; K75.81 Nonalcoholic steatohepatitis (NASH); K74.60 Unspecified cirrhosis of liver
CPT/HCPCS: 99284; 99285; 96374; 36415; 71275; 80053; 83690; 86850; 86900; 86901; 87040; 87637; 93005; 74174; 81003; 81015; 83605; 84484; 85025; 85610; 93010; J0131; J2470; J3490

== ENCOUNTER 2025-05-10 19:20 | Emergency (ER) | payer MEDICARE, SELFPAY ==
--- NOTE | 2025-05-10 19:15 | RT.EKG_ITS ---
APPROVED REPORT Exam: Resting ECG Reason for Exam: fall/ dizzy Patient Location: E HR:79 bpm ECG Measurements Heart Rate 79 AXIS AL 166 P 49 QRSd 103 QRS 45 QT 426 T -14 QTc 487 Conclusion Sinus rhythm at a rate of 79 with inferior Q waves without acute ischemic change
[2025-05-10 19:20] VITALS: BP 129/23; PULSE 79; RESP 16; TEMP 36.7; O2SAT 98
--- NOTE | 2025-05-10 19:31 | W.ED.GENAD ---
Discharge Plan Disposition Patient Disposition: Home Condition: Stable Discharge Details Clinical Impression: Frequent falls, Dizziness, Hypokalemia Primary Care Provider: Jefe Coffey ED Provider: Mona Sears Home Meds and New Rx's Prescriptions: No Action oxycodone 5 mg tablet 5 mg PO Q6H PRN lactulose 10 gram/15 mL solution 30 ml PO TID metformin 1,000 mg Tablet 1,000 mg PO BID ropinirole 2 mg Tablet 2 mg PO TID nystatin 100,000 unit/gram Powder 6,000,000 unit topical TID Qty: 60 0RF Rx Instructions: apply to reddened skin folds doxepin 10 mg capsule 30 mg PO QHS Patient Comments: 20 mg once a day pantoprazole 40 mg Tablet,Delayed Release (Dr/Ec) 40 mg PO BID oxybutynin chloride 5 mg Tablet 5 mg PO BID Qty: 60 0RF torsemide 20 mg tablet 40 mg PO DAILY Patient Comments: TAKE TWO TABLETS BY MOUTH EVERY DAY fluoxetine 40 mg capsule 40 mg PO DAILY ondansetron HCl 4 mg tablet 4 mg PO DAILY PRN Patient Comments: TAKE ONE TABLET BY MOUTH EVERY DAY NEEDED FOR NAUSEA magnesium oxide 400 mg magnesium tablet 400 mg PO DAILY Qty: 30 0RF glipizide 5 mg tablet 5 mg PO DAILY amlodipine 5 mg tablet 5 mg PO DAILY Jardiance 10 mg tablet 10 mg PO DAILY potassium chloride 20 mEq tablet extended release 20 meq PO DAILY Rx Instructions: with meals ciprofloxacin HCl 500 mg tablet 500 mg PO BID Qty: 7 0RF Rx Instructions: first dose this evening Discharge Instructions Instructions: Hypokalemia, Preventing falls in adults, Dizziness, Adult ED Additional Instructions: As discussed your CAT scan today came back unremarkable. Apart from mildly low potassium your blood work is stable. You did receive one-time dose of potassium here in the emergency department. Please increase consumption of foods rich in potassium. You did an EKG to look at the electrical function of your heart and that is nondiagnostic. Your urine will be sent for culture for confirmation to determine if we need to start you on antibiotics or not since you are not having any urinary symptoms. I strongly recommend you follow-up with your primary care doctor and urged you to return to the emergency department with any worsening symptoms or any other concerns. HPI General Date/Time Provider Initiated Documentation: 05/10/25 19:21. HPI Narrative: The patient is a 69-year-old female with a history of chronic indwelling Christine catheter, hypertension, diabetes who comes the emergency department for fall, dizziness. The patient reports that she has had more increasing falls over the past few months. She reports that she has her walker with her every time she falls. Reports this evening she was walking with her walker when she felt her legs give out. Reports she fell on the floor and the next ensured members was staring at the ceiling. Reports that she thinks she may have passed out but it was only for a few seconds if that. Denies taking any blood thinning medication. Reports that she was not dizzy before the fall but was lightheaded dizzy after. Denies any headache or neck pain. Denies any worsening cough, chest pain or shortness of breath. Denies abdominal pain, vomiting but states she has been feeling nauseous. Denies pain to her arm and legs. Denies any changes in her urine output. Reports she continues to feel lightheaded now. Related Data Home Medications ?Medication ?Instructions ?Recorded ?Confirmed metformin 1,000 mg tablet 1,000 mg PO BID 11/09/22 03/26/25 ropinirole 2 mg tablet 2 mg PO TID 11/09/22 03/26/25 pantoprazole 40 mg tablet,delayed 40 mg PO BID 12/15/22 03/26/25 release nystatin 100,000 unit/gram topical 6,000,000 unit topical TID #60 02/05/23 03/26/25 powder grams lactulose 10 gram/15 mL oral 30 ml PO TID 06/26/23 03/26/25 solution oxybutynin chloride 5 mg tablet 5 mg PO BID #60 tabs 11/13/23 03/26/25 torsemide 20 mg tablet 40 mg PO DAILY 01/23/24 03/26/25 fluoxetine 40 mg capsule 40 mg PO DAILY 01/24/24 03/26/25 ondansetron HCl 4 mg tablet 4 mg PO DAILY PRN 04/16/24 03/26/25 magnesium oxide 400 mg PO DAILY #30 tabs 06/02/24 03/26/25 doxepin 10 mg capsule 30 mg PO QHS 10/24/24 03/26/25 oxycodone 5 mg tablet 5 mg PO Q6H PRN 01/11/25 03/26/25 amlodipine 5 mg tablet 5 mg PO DAILY 03/21/25 03/26/25 empagliflozin 10 mg tablet 10 mg PO DAILY 03/21/25 03/26/25 (Jardiance) glipizide 5 mg tablet 5 mg PO DAILY 03/21/25 03/26/25 potassium chloride 20 mEq 20 meq PO DAILY 03/21/25 03/26/25 tablet,extended release ciprofloxacin HCl 500 mg tablet 500 mg PO BID #7 tabs 03/24/25 03/26/25 Previous Rx's ?Medication ?Instructions ?Recorded nystatin 100,000 unit/gram topical 6,000,000 unit topical TID #60 02/05/23 powder grams oxybutynin chloride 5 mg tablet 5 mg PO BID #60 tabs 11/13/23 magnesium oxide 400 mg PO DAILY #30 tabs 06/02/24 ciprofloxacin HCl 500 mg tablet 500 mg PO BID #7 tabs 03/24/25 Allergies Allergy/AdvReac Type Severity Reaction Status Date / Time Penicillins Allergy Severe Swelling/Ed Verified 03/26/25 15:45 sophie tramadol Allergy Severe Swelling/Ed Verified 03/26/25 15:45 sophie apricot Allergy Intermediate Hives Verified 03/26/25 15:45 ferrous sulfate Allergy Unknown Other (See Verified 03/26/25 15:45 Comment) raspberry Allergy Other (See Verified 03/26/25 15:45 Comment) pineapple AdvReac Intermediate Topical Unverified 03/26/25 15:45 Irritation vancomycin AdvReac Intermediate Other (See Verified 03/26/25 15:45 Comment) General Stated Complaint: Fall/Non TraumaCriteria CHELA: 3 Review of Systems Narrative: Review of systems are negative except as mentioned. Exam Narrative Exam Narrative: General appearance: The patient is alert, has no immediate need for airway protection and no signs of toxicity. HEENT: Pupils are round, equal and reactive. No nystagmus appreciated. Oral mucosal membranes are moist. Neck: No midline C-spine tenderness noted to palpation. Respiratory: There are no retractions. Lungs are clear to auscultation. Cardiovascular: Regular in rate and rhythm. Radial pulses are intact and equal. Gastrointestinal: The abdomen is soft and nondistended with normal bowel sounds. Nontender to palpation throughout. Neurological: The patient is alert, awake and oriented x 3. Musculoskeletal strength is intact and equal to bilateral upper and lower extremities. Sensation is intact and equal to bilateral upper and lower extremities. Speech is clear. No facial asymmetry is appreciated. Cranial nerves II to XII motor function are intact and equal. No pronator drift noted. NIH stroke scale score is 0 at 1925. No truncal ataxia is noted. HINTS testing is within normal limits. Skin: Warm and dry. Back: No midline lumbar thoracic spine tenderness is noted to palpation. Extremities: No tenderness is noted to palpation and range of motion testing to bilateral upper lower extremities. Course Vital Signs Vital signs: Vital Signs Temperature 36.7 C 05/10/25 19:20 Pulse 79 05/10/25 19:20 Respiratory Rate 16 05/10/25 19:20 Blood Pressure 129/23 L 05/10/25 19:20 Pulse Oximetry 98 05/10/25 19:20 Temperature 36.7 C 05/10/25 19:20 Temperature Source Oral 05/10/25 19:20 Pulse 79 05/10/25 19:20 Respiratory Rate 16 05/10/25 19:20 Blood Pressure 129/23 L 05/10/25 19:20 Blood Pressure Position Supine 05/10/25 19:20 Pulse Oximetry 98 05/10/25 19:20 Oxygen Delivery Method Room Air 05/10/25 19:20 Oxygen Flow Rate 0 05/10/25 19:20 Pain Level 0 05/10/25 19:20 Medical Decision Making I told the patient of plan for blood work, imaging study, EKG and urinalysis. She has no focal deficit on exam which is reassuring. I ordered a small IV fluid bolus in the meantime. Her blood count is back and she is found to be anemic but this is baseline for her. Her EKG is nondiagnostic. Her chemistries are stable apart from mildly low potassium. Of note bilirubin is elevated but again this is stable for her in comparison to old blood values through [facility]. Her Christine catheter was replaced in the ED for adequate sample. Her urine did have leukocyte esterase in it. She is not having any urinary symptoms and her symptoms has been ongoing for months therefore her urine will be sent for culture for confirmation. CAT scan is back and she is found to have no acute finding. I ordered oral potassium. She requested something to eat and drink which has been ordered for her as well. I updated her workup results and of plan for discharge. I encouraged her to follow-up with her primary care doctor regardless but urged her to return to the emergency department with any worsening symptoms or any other concerns. The patient has since ambulated in the emergency department without any issues. Prior to discharge orthostatic vital signs were checked and they were unremarkable and she was asymptomatic. Imaging Data Radiologic Study: Imaging: CT Scan (CT head and C-spine) Radiologist's impression: There jaison 13 x 7 x 8 mm mass in the midline sella turcica region which is either an anterior pituitary mass extending up to the optic chiasm or an aneurysm of the anterior communicating artery. This finding exhibits minimal if any significant change when compared to prior CT scan of 02/24/2025. Next step should be CT angiography and brain MRI. Chronic multilevel degenerative disc disease and facet arthropathy but no evidence of acute cervical spine fracture, malalignment, nor acute compromise of the cervical spinal canal. ECG Data Attestation: I personally reviewed and interpreted this ECG (s) as follows: (Sinus rhythm at a rate of 79 with inferior Q waves without acute ischemic change) Quality:SDOH Health Related Social Needs: Health related social needs risk of homeless finding work Health related social needs details patient needs caregtiver when discharge. 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 Left clavicle Excess skin of eyelid Pituitary cyst Hypersomnia GAVE (gastric antral vascular ectasia) JAYDEN (obstructive sleep apnea) Acquired arteriovenous malformation Atypical angina Biliary dyskinesia Lung nodule Submucosal neoplasm of stomach Anemia Dermoid cyst History of peptic ulcer disease Osteoarthritis Pancreatitis Hypertensive disorder Hepatic encephalopathy Edema Atrophy of vagina Atrophic vaginitis Actinic keratosis Pituitary adenoma Restless legs Neoplasm of parotid gland Lumbar spondylosis Lesion of esophagus Dyslipidemia Depressive disorder Crohn's disease Chronic low back pain Anxiety Anemia Cirrhosis SALCIDO (nonalcoholic steatohepatitis) CHF (congestive heart failure) Anasarca Surgical History History of oophorectomy, unilateral History of rotator cuff surgery bilateral History of total knee arthroplasty bilateral History of sleeve gastrectomy History of hysterectomy Family History Brother Cancer Lung Alcohol use disorder 2 older brothers Social History Smoking/Tobacco Use Status: Never Smoking risk assessment performed?: Yes Alcohol Intake: never Drug use: Never Substance use type: does not use Housing: house Current gender identity: female Do you feel safe at home: Yes Do you feel safe in your relationship?: Yes Additional Social history: Lives with Arslan, and son in [place]. Moved from [place] in 2019. Has a dog and 8 pet birds.
--- NOTE | 2025-05-10 19:59 | DI.CT_ITS ---
Exam(s) CT HEAD CERVICAL SPINE WO EXAM: CT HEAD CERVICAL SPINE WO CLINICAL HISTORY: fall, brief LOC. TECHNIQUE: Imaging Protocol: Axial computed tomography images with coronal and sagittal reformatted images were created and reviewed COMPARISON: CT CT HEAD WO from 02/24/2025 FINDINGS: BRAIN: There are no skull fractures nor fluid in the visualized paranasal sinuses and mastoid air cells.. There is a hyperdense mass in the midline/anterior aspect of the pituitary fossa which extends up to the level of the optic chiasm. This measures 1.3 x 0.7 x 0.8 cm. A hyperdense mass measur3 cm craniocaudal by 0.7 cm AP by 0.9 cm wide. Main differential is between pituitary mass or aneurysm of of the anterior communicating artery. Remainder of the brain appears unremarkable. There is no blood within the ventricular system. There is no dehiscence of the sella turcica. Orbits exhibit evidence of bilateral prior cataract surgery. CERVICAL SPINE: There is no evidence of fracture nor listhesis. No significant prevertebral soft tissue swelling. There is multilevel chronic degenerative disc disease. There are prominent anterior osteophytes at the C 4-5 level. Less so at other levels. There is no listhesis. Facet joints exhibit some degenerative changes. There is also fusion across the facet joints at C2-3 level. There is no significant facet joint malalignment. No significant osseous lesions evident. IMPRESSION: There jaison 13 x 7 x 8 mm mass in the midline sella turcica region which is either an anterior pituitary mass extending up to the optic chiasm or an aneurysm of the anterior communicating artery. This finding exhibits minimal if any significant change when compared to prior CT scan of 02/24/2025. Next step should be CT angiography and brain MRI. Chronic multilevel degenerative disc disease and facet arthropathy but no evidence of acute cervical spine fracture, malalignment, nor acute compromise of the cervical spinal canal. Preliminary virtual Radiology report was reviewed. Final report called by myself to ER provider 05/10/2025 at 10 p.m. RADIATION DOSE DELIVERED: 1,172.58mGy.cm Total DLP DATA REPOSITORY: All CT scans at this facility are submitted to the National Radiology Data Registry (NRDR) Dose Index Registry (DIR) with the [employer] ([employer]). RADIATION OPTIMIZATION: All CT scans at this facility use at least one of these dose optimization techniques: automated exposure control; mA and/or kV adjustment per patient size (includes targeted exams where dose is matched to clinical indication); or iterative reconstruction.
[2025-05-10 20:25] LABS: Abs Immature Grans 0.01 10^3/uL (0.0-0.06); HCT 26.6 % (36.0-46.0); HGB 7.8 g/dL (11.2-15.7); Immature Grans % 0.2 %; MCH 22.9 pg (27.0-33.0); MCHC 29.3 % (32.0-36.0); MCV 78 fL (80-95); MPV 10.4 fL (8.0-11.0); Platelet Count 123 10^3/uL (130-400); RBC 3.40 10^6/uL (3.93-5.22); RDW 17.4 % (11.7-14.6); RDW-SD 49.1 fL; WBC 4.79 10^3/uL (4.4-10.8)
[2025-05-10] MEDS: Normal Saline 250 ML 500 ML IV (20:36)
[2025-05-10 20:40] LABS: ALT 29 U/L (14-59); AST 33 U/L (15-37); Albumin 2.3 g/dL (3.4-5.0); Alkaline Phosphatase 224 U/L (46-116); Anion Gap 6.8 mmol/L (3-11); BUN 17 mg/dL (7-18); Bilirubin, Total 1.4 mg/dL (0.2-1.0); CO2 35.2 mmol/L (21.0-32.0); Calcium 8.3 mg/dL (8.5-10.1); Chloride 100 mmol/L (98-107); Estimated GFR 60.98 (mL/min/1.73m2); Glucose 275 mg/dL (74-106); Potassium 3.0 mmol/L (3.5-5.1); Sodium 142 mmol/L (136-145); Total Protein 5.7 g/dL (6.4-8.2)
[2025-05-10 20:40] LABS: Glucose >=1000 mg/dL (Negative)
[2025-05-10 20:46] LABS: WBC >50 HPF (0-5)
[2025-05-10] MEDS: Potassium Chloride 20 MEQ TABCR 40 MEQ PO (20:57)
[2025-05-10 21:07] VITALS: BP 140/29; PULSE 70
--- NOTE | 2025-05-10 21:08 | DI.[facility]AD_ITS ---
PROCEDURE INFORMATION: Exam: CT Head Without Contrast Exam date and time: 05/10/2025 7:50 PM Age: 69 years old Clinical indication: Injury / trauma; Fall, brief LOC; Injury date: 05/10/25 TECHNIQUE: Imaging protocol: Computed tomography of the head without contrast. Radiation optimization: All CT scans at this facility use at least one of these dose optimization techniques: automated exposure control; mA and/or kV adjustment per patient size (includes targeted exams where dose is matched to clinical indication); or iterative reconstruction. COMPARISON: CT HEAD WO 02/24/2025 7:44 PM FINDINGS: Brain: No acute intracranial hemorrhage. Diffuse cerebral atrophy. No acute extra-axial fluid collection. Cerebral ventricles: Ventricular prominence in this patient with diffuse cerebral atrophy. Paranasal sinuses: No significant disease of the paranasal sinuses. Mastoid air cells: No mastoiditis. Orbital cavities: Prior cataract surgery. Bones: No acute fracture. Unremarkable for patient age. Soft tissues: Unremarkable. IMPRESSION: 1. No acute fracture. 2. No acute intracranial findings. PROCEDURE INFORMATION: Exam: CT Cervical Spine Without Contrast Exam date and time: 05/10/2025 7:50 PM Age: 69 years old Clinical indication: Injury / trauma; Fall, brief LOC; Injury date: 05/10/25 TECHNIQUE: Imaging protocol: Computed tomography of the cervical spine without contrast. Radiation optimization: All CT scans at this facility use at least one of these dose optimization techniques: automated exposure control; mA and/or kV adjustment per patient size (includes targeted exams where dose is matched to clinical indication); or iterative reconstruction. COMPARISON: CT THORAX ABD/PEL CTA 03/26/2025 7:36 PM FINDINGS: Bones: No acute fracture. Normal alignment. Cervical spine degenerative changes. No significant disc bulge or herniation. No severe spinal canal stenosis. Lungs: Lung apices are normal. Soft tissues: Unremarkable. IMPRESSION: No acute fracture or subluxation. Dictated and Authenticated by: Bairon Brock MD. Orderin Orion Dunn MD
[2025-05-10 21:16] VITALS: BP 140/29; BP 145/45; BP 155/37
--- NOTE | 2025-05-12 08:42 | NUR.NOTE ---
Access chart to reconcile EKG's in [facility] and EKg orders. Duplicate order cancelled. Nursing Note:
== END 2025-05-10 21:28 | disposition home or self-care (01) ==
PROVIDERS: Emergency Provider Emergency Medicine; PCP Family Medicine
DX: R42 Dizziness and giddiness (principal); E87.6 Hypokalemia; E11.9 Type 2 diabetes mellitus without complications; I11.0 Hypertensive heart disease with heart failure; I50.9 Heart failure, unspecified; Z98.1 Arthrodesis status; Z79.84 Long term (current) use of oral hypoglycemic drugs; Z96.0 Presence of urogenital implants; Z79.01 Long term (current) use of anticoagulants
CPT/HCPCS: 36415; 80053; 93005; 96360; 99285; 70450; 72125; 81003; 81015; 85025; 93010; 99284

== ENCOUNTER 2025-06-16 13:07 | Outpatient (CLI) | payer MEDICARE, SELFPAY ==
[2025-06-16 12:30] LABS: Abs Immature Grans 0.01 10^3/uL (0.0-0.06); HCT 25.3 % (36.0-46.0); HGB 7.3 g/dL (11.2-15.7); Immature Grans % 0.2 %; MCH 22.4 pg (27.0-33.0); MCHC 28.9 % (32.0-36.0); MCV 78 fL (80-95); MPV 11.1 fL (8.0-11.0); Platelet Count 103 10^3/uL (130-400); RBC 3.26 10^6/uL (3.93-5.22); RDW 19.1 % (11.7-14.6); RDW-SD 53.3 fL; WBC 4.14 10^3/uL (4.4-10.8)
[2025-06-16 13:09] LABS: Glucose Negative (Negative)
[2025-06-16 13:10] LABS: ALT 23 U/L (14-59); AST 29 U/L (15-37); Albumin 2.5 g/dL (3.4-5.0); Alkaline Phosphatase 262 U/L (46-116); Anion Gap 3.5 mmol/L (3-11); BUN 17 mg/dL (7-18); Bilirubin, Total 0.9 mg/dL (0.2-1.0); CO2 35.5 mmol/L (21.0-32.0); Calcium 8.8 mg/dL (8.5-10.1); Chloride 101 mmol/L (98-107); Estimated GFR 60.61 (mL/min/1.73m2); Glucose 292 mg/dL (74-106); Potassium 3.1 mmol/L (3.5-5.1); Sodium 140 mmol/L (136-145); TSH (W/Ref FT4) 2.17 uIU/mL (0.36-3.74); Total Protein 5.7 g/dL (6.4-8.2)
[2025-06-16 13:24] LABS: Hypochromasia 2+; Poikilocytes 2+
[2025-06-16 13:58] LABS: C & S Indicated? Yes
[2025-06-17 20:43] LABS: Iron 17 ug/dL (50-170)
== END 2025-06-16 13:08 | disposition home or self-care (01) ==
LOC: LBO 13:08
PROVIDERS: PCP Family Medicine; Visit Provider Family Medicine
DX: D64.9 Anemia, unspecified (principal)
CPT/HCPCS: 36415; 80053; 87077; 81003; 81015; 83036; 83540; 84443; 85025; 85045; 87086; 87186

== ENCOUNTER 2025-07-08 11:14 | Outpatient (CLI) | payer MEDICARE, SELFPAY ==
--- NOTE | 2025-07-08 07:30 | DI.US_ITS ---
Exam(s) US ABDOMEN LIMITED EXAM: US ABDOMEN LIMITED CLINICAL HISTORY: HEPATIC CIRRHOSIS K74.60 HCC SURVEILLANCE LIVER GALLBLADDER SPLEEN BILE TECHNIQUE: Ultrasound abdomen performed using standard protocol. COMPARISON: CT CT THORAX ABD/PEL CTA from 03/26/2025 FINDINGS: LIVER: Normal shrunken, nodular appearance with heterogeneous echotexture, consistent with cirrhosis. No focal liver lesions are seen. Portal vein: Enlarged at 16 millimeters. Hepatopetal flow. GALLBLADDER: Cholecystectomy BILIARY SYSTEM: No intrahepatic or extrahepatic biliary ductal dilation. KIDNEYS: Not imaged. PANCREAS: Not visualized. SPLEEN: Enlarged at 15.5 cm. ASCITES: None seen. IMPRESSION: Cirrhotic appearing liver. No hepatic lesions are identified. Splenomegaly. DATA REPOSITORY:
== END 2025-07-08 11:34 ==
LOC: DI 11:14
PROVIDERS: PCP Family Medicine; Visit Provider Nurse Practitioner Family
DX: K74.60 Unspecified cirrhosis of liver (principal)
CPT/HCPCS: 76705

== ENCOUNTER 2025-07-11 03:17 | Inpatient (IN) | payer MEDICARE, SELFPAY ==
[2025-07-11] VITALS (16 sets, daily range): BP systolic 99–155; BP diastolic 24–84; PULSE 80–99; RESP 14–21; TEMP 24.5–39.3; O2SAT 90–96
--- NOTE | 2025-07-11 03:15 | DI.RAD_ITS ---
Exam(s) XR PORTABLE CHEST AP EXAM: XR PORTABLE CHEST AP CLINICAL HISTORY: fever, eval for pneumonia TECHNIQUE: 2D digital imaging was performed. COMPARISON: CR,XR XR CHEST 2V PA LATERAL from 02/24/2025 CR,XR XR PORTABLE CHEST AP from 03/21/[address] THORAX ABD/PEL CTA from 03/26/2025 FINDINGS: LUNGS: Increased interstitial markings bilaterally. No focal infiltrate. No effusion is visible. HEART: Enlarged. Pulmonary vascular prominence. AORTA: Normal diameter. BONES: Old proximal left clavicle fracture. Postsurgical changes to both distal clavicles. Soft tissues: Unremarkable. IMPRESSION: Cardiomegaly, pulmonary vascular prominence and increased interstitial markings consistent with CHF. The preliminary [facility] report was reviewed. DATA REPOSITORY: RADIATION DOSE DELIVERED:
[2025-07-11 03:34] LABS: Abs Immature Grans 0.05 10^3/uL (0.0-0.06); HCT 21.7 % (36.0-46.0); Immature Grans % 0.7 %; MCH 21.1 pg (27.0-33.0); MCHC 29.0 % (32.0-36.0); MCV 73 fL (80-95); Platelet Count 104 10^3/uL (130-400); RBC 2.98 10^6/uL (3.93-5.22); RDW 17.8 % (11.7-14.6); RDW-SD 47.2 fL; WBC 7.24 10^3/uL (4.4-10.8)
[2025-07-11] MEDS: ACETAMINOPHEN 1,000 MG/100 ML BAG 400 MG IVPB (03:35)
[2025-07-11 03:39] LABS: HGB 6.3 g/dL (11.2-15.7)
[2025-07-11 03:45] LABS: Ammonia 33 umol/L (11-32)
[2025-07-11 03:55] LABS: Hypochromasia 2+; Microcytosis 1+
[2025-07-11 03:57] LABS: ALT 22 U/L (14-59); AST 30 U/L (15-37); Albumin 2.6 g/dL (3.4-5.0); Alkaline Phosphatase 187 U/L (46-116); Anion Gap 5.7 mmol/L (3-11); BUN 18 mg/dL (7-18); Bilirubin, Total 1.4 mg/dL (0.2-1.0); CO2 30.3 mmol/L (21.0-32.0); Calcium 8.4 mg/dL (8.5-10.1); Chloride 101 mmol/L (98-107); Estimated GFR 54.06 (mL/min/1.73m2); Glucose 221 mg/dL (74-106); NT-proBNP 139 pg/mL (<300); Potassium 3.5 mmol/L (3.5-5.1); Sodium 137 mmol/L (136-145); TSH (W/Ref FT4) 1.26 uIU/mL (0.36-3.74); Total Protein 6.0 g/dL (6.4-8.2)
[2025-07-11 03:58] LABS: Procalcitonin 0.32 ng/mL
--- NOTE | 2025-07-11 04:26 | DI.VRAD_ITS ---
PROCEDURE INFORMATION: Exam: XR Chest Exam date and time: 07/11/2025 3:57 AM Age: 70 years old Clinical indication: Fever; Additional info: Fever, eval for pneumonia TECHNIQUE: Imaging protocol: Radiologic exam of the chest. Views: 1 view. COMPARISON: CT THORAX ABD/PEL CTA 03/26/2025 7:36 PM FINDINGS: Lungs: Pulmonary vascular congestion. Increased pulmonary markings. Pleural spaces: No large pleural effusion seen. Heart/Mediastinum: Cardiac silhouette magnified by AP technique. Bones/joints: No acute abnormality. IMPRESSION: Enlarged cardiac silhouette with pulmonary vascular congestion increased pulmonary markings suggesting edema. Infection not excluded. Follow-up as clinically warranted. Dictated and Authenticated by: Giovanna Ford MD. Orderin John Ram MD
[2025-07-11 04:28] LABS: COVID-19 PCR Negative (Negative); RSV PCR Negative (Negative)
--- NOTE | 2025-07-11 04:32 | W.ED.GENAD ---
Discharge Plan Disposition Patient Disposition: Admit to [facility] Condition: Stable Discharge Details Clinical Impression: Community acquired pneumonia, Sepsis, Anemia Primary Care Provider: Jefe Coffey ED Provider: Yo Lopez Home Meds and New Rx's Prescriptions: No Action oxycodone 5 mg tablet 5 mg PO Q6H PRN lactulose 10 gram/15 mL solution 30 ml PO TID metformin 1,000 mg Tablet 1,000 mg PO BID ropinirole 2 mg Tablet 2 mg PO TID nystatin 100,000 unit/gram Powder 6,000,000 unit topical TID Qty: 60 0RF Rx Instructions: apply to reddened skin folds doxepin 10 mg capsule 30 mg PO QHS Patient Comments: 20 mg once a day pantoprazole 40 mg Tablet,Delayed Release (Dr/Ec) 40 mg PO BID oxybutynin chloride 5 mg Tablet 5 mg PO BID Qty: 60 0RF torsemide 20 mg tablet 40 mg PO DAILY Patient Comments: TAKE TWO TABLETS BY MOUTH EVERY DAY fluoxetine 40 mg capsule 40 mg PO DAILY ondansetron HCl 4 mg tablet 4 mg PO DAILY PRN Patient Comments: TAKE ONE TABLET BY MOUTH EVERY DAY NEEDED FOR NAUSEA magnesium oxide 400 mg magnesium tablet 400 mg PO DAILY Qty: 30 0RF glipizide 5 mg tablet 5 mg PO DAILY amlodipine 5 mg tablet 5 mg PO DAILY Jardiance 10 mg tablet 10 mg PO DAILY potassium chloride 20 mEq tablet extended release 20 meq PO DAILY Rx Instructions: with meals ciprofloxacin HCl 500 mg tablet 500 mg PO BID Qty: 7 0RF Rx Instructions: first dose this evening HPI General Date/Time Provider Initiated Documentation: 07/11/25 03:47. HPI Narrative: This is a 70-year-old female with a past medical history of gastric antral vascular ectasias, recurrent GI bleeds, anemia with history of iron infusions, previous pancreatitis from CBD obstruction, type 2 diabetes, CHF, high cholesterol, depression anxiety, pituitary mass, obstructive sleep apnea on CPAP, laparoscopic band surgery on 07/16, sleeve gastrectomy in 2015, liver cirrhosis with splenomegaly, portal hypertension, submucosal neoplasm of the stomach, coronary artery disease who resides at home, who presents today for evaluation of fever and feeling unwell. Patient states that for the last day or 2 she has had a mild cough, this evening she felt quite unwell and became febrile, with a Tmax of 102-103. She denies dysuria, or urinary frequency. She denies vomiting or diarrhea. She denies numbness or tingling. She denies any chest pain, chest heaviness, chest tightness or chest discomfort. No other complaints at this time. No other modifying factors. Related Data Home Medications ?Medication ?Instructions ?Recorded ?Confirmed metformin 1,000 mg tablet 1,000 mg PO BID 11/09/22 03/26/25 ropinirole 2 mg tablet 2 mg PO TID 11/09/22 03/26/25 pantoprazole 40 mg tablet,delayed 40 mg PO BID 12/15/22 03/26/25 release nystatin 100,000 unit/gram topical 6,000,000 unit topical TID #60 02/05/23 03/26/25 powder grams lactulose 10 gram/15 mL oral 30 ml PO TID 06/26/23 03/26/25 solution oxybutynin chloride 5 mg tablet 5 mg PO BID #60 tabs 11/13/23 03/26/25 torsemide 20 mg tablet 40 mg PO DAILY 01/23/24 03/26/25 fluoxetine 40 mg capsule 40 mg PO DAILY 01/24/24 03/26/25 ondansetron HCl 4 mg tablet 4 mg PO DAILY PRN 04/16/24 03/26/25 magnesium oxide 400 mg PO DAILY #30 tabs 06/02/24 03/26/25 doxepin 10 mg capsule 30 mg PO QHS 10/24/24 03/26/25 oxycodone 5 mg tablet 5 mg PO Q6H PRN 01/11/25 03/26/25 amlodipine 5 mg tablet 5 mg PO DAILY 03/21/25 03/26/25 empagliflozin 10 mg tablet 10 mg PO DAILY 03/21/25 03/26/25 (Jardiance) glipizide 5 mg tablet 5 mg PO DAILY 03/21/25 03/26/25 potassium chloride 20 mEq 20 meq PO DAILY 03/21/25 03/26/25 tablet,extended release ciprofloxacin HCl 500 mg tablet 500 mg PO BID #7 tabs 03/24/25 03/26/25 Previous Rx's ?Medication ?Instructions ?Recorded nystatin 100,000 unit/gram topical 6,000,000 unit topical TID #60 02/05/23 powder grams oxybutynin chloride 5 mg tablet 5 mg PO BID #60 tabs 11/13/23 magnesium oxide 400 mg PO DAILY #30 tabs 06/02/24 ciprofloxacin HCl 500 mg tablet 500 mg PO BID #7 tabs 03/24/25 Allergies Allergy/AdvReac Type Severity Reaction Status Date / Time Penicillins Allergy Severe Swelling/Ed Verified 03/26/25 15:45 sophie tramadol Allergy Severe Swelling/Ed Verified 03/26/25 15:45 sophie apricot Allergy Intermediate Hives Verified 03/26/25 15:45 ferrous sulfate Allergy Unknown Other (See Verified 03/26/25 15:45 Comment) raspberry Allergy Other (See Verified 03/26/25 15:45 Comment) pineapple AdvReac Intermediate Topical Unverified 03/26/25 15:45 Irritation vancomycin AdvReac Intermediate Other (See Verified 03/26/25 15:45 Comment) General Stated Complaint: Fever CHELA: 3 Exam Narrative Exam Narrative: 1.Const: Well-nourished, Well-developed, appearing stated age 2.Eyes: PERRL, no conjunctival injection, and symmetrical lids. 3.ENT: Atraumatic external nose and ears. Moist MM. Neck: Symmetric, trachea midline, No thyromegaly. 4.CVS: +S1/S2, Peripheral pulses 2+ and equal in all extremities. Brisk capillary refill in all extremities. Murmur is auscultated. 5.RESP: Unlabored respiratory effort. No wheezes or rhonchi 6.GI: Soft, Nontender/Nondistended, No hepatosplenomegaly. No guarding or rebound. 7.MSK: Normocephalic/Atraumatic, Extremities w/o deformity or ttp No cyanosis or clubbing, Normal movement of all extremities 8.Skin: Warm, Dry. No rashes or lesions. 9.Neuro: professional services consultant II-XII grossly intact. Sensation grossly intact, no focal neurologic deficits. 10.Psych: (AAO) x3. Appropriate mood and affect Course Vital Signs Vital signs: Vital Signs Temperature 39.3 C H 07/11/25 03:06 Pulse 99 H 07/11/25 03:06 Respiratory Rate 18 07/11/25 03:06 Blood Pressure 155/34 H 07/11/25 03:06 Temperature 39.3 C H 07/11/25 03:06 Temperature Source Oral 07/11/25 03:18 Pulse 99 H 09/07/25 03:06 Respiratory Rate 18 07/11/25 03:06 Blood Pressure 155/34 H 07/11/25 03:06 Blood Pressure Position Supine 07/11/25 03:18 Oxygen Delivery Method Room Air 07/11/25 03:18 Oxygen Flow Rate 0 07/11/25 03:06 Pain Level 4 07/11/25 03:18 Lab/Test Results Lab/Test Results: 07/11/25 04:10 Blood Blood Culture - Pending 07/11/25 03:20 Blood Blood Culture - Pending Laboratory Tests Range/Units 07/11/25 07/11/25 07/11/25 03:20 03:35 04:05 WBC (4.4-10.8) 10^3/uL 7.24 RBC (3.93-5.22) 10^6/uL 2.98 L Hgb (11.2-15.7) g/dL 6.3 L* Hct (36.0-46.0) % 21.7 L MCV (80-95) fL 73 L MCH (27.0-33.0) pg 21.1 L MCHC (32.0-36.0) % 29.0 L RDW (11.7-14.6) % 17.8 H Plt Count (130-400) 10^3/uL 104 L MPV (8.0-11.0) fL Immature Gran % % 0.7 Neutrophils % % 76.8 Lymphocytes % % 8.6 Monocytes % % 11.9 Eosinophils % % 1.4 Basophils % % 0.6 Nucleated RBC % (0.0-0.3) % 0.0 Absolute Neutrophils (1.2-6.7) 10^3/uL 5.57 Absolute Lymphocytes (1.2-3.4) 10^3/uL 0.62 L Absolute Monocytes (0.1-0.8) 10^3/uL 0.86 H Absolute Eosinophils (0.0-0.7) 10^3/uL 0.10 Absolute Basophils (0.0-0.2) 10^3/uL 0.04 RBC Morphology See Below Hypochromasia 2+ Microcytosis 1+ VBG Lactate (<or=2.0) mmol/L 2.0 Sodium (136-145) mmol/L 137 Potassium (3.5-5.1) mmol/L 3.5 Chloride (98-107) mmol/L 101 Carbon Dioxide (21.0-32.0) mmol/L 30.3 Anion Gap (3-11) mmol/L 5.7 BUN (7-18) mg/dL 18 Creatinine (0.55-1.02) mg/dL 1.1 H Est GFR (CKD-EPI 2020) (mL/min/1.73m2) 54.06 Glucose (74-106) mg/dL 221 H Calcium (8.5-10.1) mg/dL 8.4 L Total Bilirubin (0.2-1.0) mg/dL 1.4 H AST (15-37) U/L 30 ALT (14-59) U/L 22 Alkaline Phosphatase (46-116) U/L 187 H Ammonia (11-32) umol/L 33 H NT-Pro-B Natriuret Pep (<300) pg/mL 139 Total Protein (6.4-8.2) g/dL 6.0 L Albumin (3.4-5.0) g/dL 2.6 L Procalcitonin ng/mL 0.32 TSH (0.36-3.74) uIU/mL 1.26 COVID-19 Source Nasopharynx SARS-CoV-2 (PCR) (Negative) Negative Influenza Type A (PCR) (Negative) Negative Influenza Type B (PCR) (Negative) Negative RSV (PCR) (Negative) Negative Crossmatch See Detail Medical Decision Making This is a 70-year-old female with a past medical history of gastric antral vascular ectasias, recurrent GI bleeds, anemia with history of iron infusions, previous pancreatitis from CBD obstruction, type 2 diabetes, CHF, high cholesterol, depression anxiety, pituitary mass, obstructive sleep apnea on CPAP, laparoscopic band surgery on 07/16, sleeve gastrectomy in 2015, liver cirrhosis with splenomegaly, portal hypertension, submucosal neoplasm of the stomach, coronary artery disease who resides at home, who presents today for evaluation of fever and feeling unwell. Patient states that for the last day or 2 she has had a mild cough, this evening she felt quite unwell and became febrile, with a Tmax of 102-103. She denies dysuria, or urinary frequency. She denies vomiting or diarrhea. She denies numbness or tingling. She denies any chest pain, chest heaviness, chest tightness or chest discomfort. No other complaints at this time. No other modifying factors. Exam demonstrates relatively well-appearing female, she is febrile, tachycardic, with no hypotension. Lungs are relatively clear, questionable crackles. No atypical rash except for a smear to small speckled folliculitis on her legs, differential includes UTI, pneumonia, bacteremia. Patient does have a mild murmur which sounded systolic on my auscultation. Patient states that she is aware of this, but review of her last echo shows no significant valvular disease. Endocarditis is less likely given the absence of IV drug use, or recent infections, or osteomyelitis or other chronic infectious source, however on an urgent/nonemergent need the patient may benefit from further echo. Will evaluate for concerning etiologies monitor closely and reassess. 4:40 AM X-ray results show evidence of mild fluid overload versus pneumonia. However the patient's proBNP is normal with no significant elevation to suggest acute CHF. Blood work shows no white count but she has a hemoglobin of 6.3, mild lymphopenia, normal lactate but an elevated procalcitonin. Concern for potential bacterial component in conjunction with viral etiology. Bili slightly elevated but appears baseline compared to prior lab values. Thyroid function normal. COVID flu and RSV negative. Still pending urinalysis. With the patient's anemia with a hemoglobin of 6.3 and her current septic status I do feel that blood products are indicated. Will give 2 units of PRBCs. We will start levofloxacin for treatment of pneumonia secondary to her penicillin allergies. This will also cover potential urinary source if her urine does result positive later. Will contact the hospitalist for admission. Discussed the case with the hospitalist Dr. Sadler, he agrees with the assessment and plan. I have extensively reviewed the treatment plan with the patient. I have addressed all patient concerns at this time. I have also discussed the plan with the admitting physician and they agree with the current assessment and plan and have agreed to assume responsibility for the patient. All parties demonstrate verbal understanding and agreement with our assessment and plan at this time. The documentation in this chart was dictated using [employer] dictation software. Please excuse any dictation errors. FINDINGS: Lungs: Pulmonary vascular congestion. Increased pulmonary markings. Pleural spaces: No large pleural effusion seen. Heart/Mediastinum: Cardiac silhouette magnified by AP technique. Bones/joints: No acute abnormality. IMPRESSION: Enlarged cardiac silhouette with pulmonary vascular congestion increased pulmonary markings suggesting edema. Infection not excluded. Follow-up as clinically warranted. Thank you for allowing us to participate in the care of your patient. Dictated and Authenticated by: Giovanna Ford MD 07/11/2025 4:25 AM Eastern Time ([place] & [place]) Quality:SDOH Health Related Social Needs: Health related social needs risk of homeless house/econ circumstance daily activities Health related social needs details w ADLs Critical Care Time Critical Care Time Critical Care Time: Yes Total Critical Care Time: 30 Attestation: Upon my evaluation, this patient had a high probability of imminent or life-threatening deterioration, which required my direct attention, intervention, and personal management. I have personally provided 30 minutes of critical care time exclusive of time spent on separately billable procedures. Time includes review of laboratory data, radiology results, discussion with consultants, and monitoring for potential decompensation. Interventions were performed as documented. 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 Left clavicle Excess skin of eyelid Pituitary cyst Hypersomnia GAVE (gastric antral vascular ectasia) JAYDEN (obstructive sleep apnea) Acquired arteriovenous malformation Atypical angina Biliary dyskinesia Lung nodule Submucosal neoplasm of stomach Anemia Dermoid cyst History of peptic ulcer disease Osteoarthritis Pancreatitis Hypertensive disorder Hepatic encephalopathy Edema Atrophy of vagina Atrophic vaginitis Actinic keratosis Pituitary adenoma Restless legs Neoplasm of parotid gland Lumbar spondylosis Lesion of esophagus Dyslipidemia Depressive disorder Crohn's disease Chronic low back pain Anxiety Anemia Cirrhosis SALCIDO (nonalcoholic steatohepatitis) CHF (congestive heart failure) Anasarca Surgical History History of oophorectomy, unilateral History of rotator cuff surgery bilateral History of total knee arthroplasty bilateral History of sleeve gastrectomy History of hysterectomy Family History Brother Cancer Lung Alcohol use disorder 2 older brothers Social History Smoking/Tobacco Use Status: Never Smoking risk assessment performed?: Yes Alcohol Intake: never Drug use: Never Substance use type: does not use Housing: house Current gender identity: female Do you feel safe at home: Yes Do you feel safe in your relationship?: Yes Additional Social history: Lives with Arslan, and son in [place]. Moved from [place] in 2019. Has a dog and 8 pet birds.
[2025-07-11] MEDS: levoFLOXacin 750 MG/150 ML BAG 100 MG IVPB (04:50)
--- NOTE | 2025-07-11 05:05 | W.PM.HP.N ---
Date of service: 07/11/25 Time of Service: 05:05 Assessment and Plan Assessment and plan (1) Sepsis: Start date: 07/11/25 Status: Acute Assessment and plan: This is a 70-year-old lady who has frequent admissions for strep presenting today with fever and sepsis without hypotension. Source is most likely lung but urinalysis is pending. She was initiated on Levaquin because of penicillin allergies and doxycycline was added to cover community-acquired pneumonia. She has not been hospitalized in the recent weeks. She recently did increase her torsemide because of peripheral edema but has no complaints of his CHF worsening. She mostly has symptoms of cough with her fever and feeling unwell. She will continue IV antibiotic therapy with follow-up on urinalysis and urine culture with treatment until she is afebrile for 48 hours and improved. Hopefully will have cultures before she discharges home. She is a full code. (2) Community acquired pneumonia: Start date: 07/11/25 Status: Acute Assessment and plan: Most likely source of sepsis with plain film chest x-ray showing bilateral infiltrates versus vascular congestion with her CHF which appears stable with normal BNP. Continue Levaquin and doxycycline as discussed. (3) Anemia: Status: Chronic Assessment and plan: Chronic blood loss anemia with patient worsened and drop in hemoglobin below 7 g/dL. She will receive 2 units of packed red blood cells with transfusion and follow-up lab. This is a chronic issue. (4) Type 2 diabetes mellitus: Assessment and plan: Patient is glipizide and metformin will be held during the hospital stay with glucometer measurements before meals and at bedtime and moderate insulin sliding scale coverage. (5) Liver cirrhosis secondary to SALCIDO: Status: Chronic Assessment and plan: Ammonia level was reasonable and she will continue lactulose. This appears stable with associated encephalopathy. (6) CHF (congestive heart failure): Assessment and plan: Patient was on increased dose of torsemide but will return to her usual dose while hospitalized. Can encourage oral hydration and nutrition. Avoid IV fluids. (7) GERD (gastroesophageal reflux disease): Status: Chronic Assessment and plan: Continue PPI. (8) JAYDEN (obstructive sleep apnea): Assessment and plan: Continue home CPAP. History of Present Illness History of Present Illness Chief Complaint: Feeling unwell for 2 days with cough and fever. Narrative: This is a 70-year-old female patient who has had multiple hospitalizations for sepsis usually with urinary source presents today with a 2-day history of mild cough which is nonproductive, generally feeling unwell and on the day of presentation fever up to 103 at home. In the ED she was also febrile but did not have an elevated WBC with question of pneumonia versus vascular congestion. She does have a history of CHF and recently was on an extra dose of her torsemide because of peripheral edema but no significant weight gain. She does have multiple medical problems including chronic blood loss anemia with GI abnormalities and chronic cirrhosis with hepatic encephalopathy which is stable on lactulose treatment. Anemia. She also has associated chronic thrombocytopenia which may complicate her blood loss anemia. She has not noted any melena or hematochezia. She also has not had any hematemesis with a history of vomiting. She denies any urinary symptoms. The patient was noted to have significant drop in her hemoglobin below 7 g/dL and was transfused with 2 units of packed red blood cells in the ED. She does occasionally need transfusions. She was initiated on Levaquin and doxycycline with panel sent because of her significant fever with minimal leukocytosis. Her absolute lymphocytes were low. She did meet sepsis criteria but was not hypotensive with no significant endorgan dysfunction from her baseline. She does live at home and will return home as she recovers. She is a full code. Review of Systems Narrative: 13 point review of systems otherwise unrevealing or stable. Patient is chronically ill. 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 Left clavicle Excess skin of eyelid Pituitary cyst Hypersomnia GAVE (gastric antral vascular ectasia) JAYDEN (obstructive sleep apnea) Acquired arteriovenous malformation Atypical angina Biliary dyskinesia Lung nodule Submucosal neoplasm of stomach Anemia Dermoid cyst History of peptic ulcer disease Osteoarthritis Pancreatitis Hypertensive disorder Hepatic encephalopathy Edema Atrophy of vagina Atrophic vaginitis Actinic keratosis Pituitary adenoma Restless legs Neoplasm of parotid gland Lumbar spondylosis Lesion of esophagus Dyslipidemia Depressive disorder Crohn's disease Chronic low back pain Anxiety Anemia Cirrhosis SALCIDO (nonalcoholic steatohepatitis) CHF (congestive heart failure) Anasarca Surgical History History of oophorectomy, unilateral History of rotator cuff surgery bilateral History of total knee arthroplasty bilateral History of sleeve gastrectomy History of hysterectomy Family History Brother Cancer Lung Alcohol use disorder 2 older brothers Social History Smoking/Tobacco Use Status: Never Smoking risk assessment performed?: Yes Alcohol Intake: never Drug use: Never Substance use type: does not use Housing: house Current gender identity: female Do you feel safe at home: Yes Do you feel safe in your relationship?: Yes Additional Social history: Lives with Arslan, and son in [place]. Moved from [place] in 2019. Has a dog and 8 pet birds. Meds Allergies and Home Medications Allergies Allergy/AdvReac Type Severity Reaction Status Date / Time Penicillins Allergy Severe Swelling/Ed Verified 03/26/25 15:45 sophie tramadol Allergy Severe Swelling/Ed Verified 03/26/25 15:45 sophie apricot Allergy Intermediate Hives Verified 03/26/25 15:45 ferrous sulfate Allergy Unknown Other (See Verified 03/26/25 15:45 Comment) raspberry Allergy Other (See Verified 03/26/25 15:45 Comment) pineapple AdvReac Intermediate Topical Unverified 03/26/25 15:45 Irritation vancomycin AdvReac Intermediate Other (See Verified 03/26/25 15:45 Comment) Home Medications ?Medication ?Instructions ?Recorded ?Confirmed ?Type metformin 1,000 mg tablet 1,000 mg PO BID 11/09/22 03/26/25 History ropinirole 2 mg tablet 2 mg PO TID 11/09/22 03/26/25 History pantoprazole 40 mg tablet,delayed 40 mg PO BID 12/15/22 03/26/25 History release nystatin 100,000 unit/gram topical 6,000,000 unit topical TID #60 02/05/23 03/26/25 Rx powder grams lactulose 10 gram/15 mL oral 30 ml PO TID 06/26/23 03/26/25 History solution oxybutynin chloride 5 mg tablet 5 mg PO BID #60 tabs 11/13/23 03/26/25 Rx torsemide 20 mg tablet 40 mg PO DAILY 01/23/24 03/26/25 History fluoxetine 40 mg capsule 40 mg PO DAILY 01/24/24 03/26/25 History ondansetron HCl 4 mg tablet 4 mg PO DAILY PRN 04/16/24 03/26/25 History magnesium oxide 400 mg PO DAILY #30 tabs 06/02/24 03/26/25 Rx doxepin 10 mg capsule 30 mg PO QHS 10/24/24 03/26/25 History oxycodone 5 mg tablet 5 mg PO Q6H PRN 01/11/25 03/26/25 History amlodipine 5 mg tablet 5 mg PO DAILY 03/21/25 03/26/25 History empagliflozin 10 mg tablet 10 mg PO DAILY 03/21/25 03/26/25 History (Jardiance) glipizide 5 mg tablet 5 mg PO DAILY 03/21/25 03/26/25 History potassium chloride 20 mEq 20 meq PO DAILY 03/21/25 03/26/25 History tablet,extended release ciprofloxacin HCl 500 mg tablet 500 mg PO BID #7 tabs 03/24/25 03/26/25 Rx Exam Narrative Exam Narrative: General: Patient appears older than stated age, alert and oriented x 3 and in no acute distress. She is obese. HEENT: Normocephalic, course and facial features with puffy edema, eyes with pupils equal and reactive light symmetrically, extraocular movement intact and sclera anicteric. Oropharynx with dry mucosa. Poor dentition with missing teeth and discolored teeth. Neck: Supple without JVD. Back: Stooped posture without CVA tenderness. Lungs: Fair aeration clear to percussion with bronchovesicular breath sounds diffusely. Coarse, expiratory crackles left base more than right, no rhonchi and no expiratory wheeze. Breast: Exam deferred. Heart: Regular rate and rhythm with 4/6 systolic murmur left sternal border. No rubs or gallops. Abdomen: Obese contour, soft and nontender to palpation with no palpable hepatosplenomegaly. Bowel sounds positive all quadrants. Large pannus with intertriginous rash without breakdown which appears chronic. Genitalia/rectal: Exam deferred. Extremities: 1+ soft pitting edema with 3+ nonpitting edema lower extremities which appears chronic with chronic skin changes, bandage over left tibial area without drainage obvious, loss of hair and atrophic skin but no erythema, no cyanosis or clubbing. Fair capillary refill. Skin: Pale, warm and dry. Neuro: Cranial nerves II through XII gross intact, no focalizing motor deficits. No tremor. Psych: Flattened affect with depressed mood. No abnormal thought processes. Remote and recent memory grossly intact at time of my exam. Results Imaging Imaging Studies: Exam: XR Chest Exam date and time: 07/11/2025 3:57 AM Age: 70 years old Clinical indication: Fever; Additional info: Fever, eval for pneumonia TECHNIQUE: Imaging protocol: Radiologic exam of the chest. Views: 1 view. COMPARISON: CT THORAX ABD/PEL CTA 03/26/2025 7:36 PM FINDINGS: Lungs: Pulmonary vascular congestion. Increased pulmonary markings. Pleural spaces: No large pleural effusion seen. Heart/Mediastinum: Cardiac silhouette magnified by AP technique. Bones/joints: No acute abnormality. IMPRESSION: Enlarged cardiac silhouette with pulmonary vascular congestion increased pulmonary markings suggesting edema. Infection not excluded. Follow-up as clinically warranted. Labs 07/11/25 03:20 07/11/25 03:20 Labs: Laboratory Results - last 24 hr 07/11/25 07/11/25 07/11/25 03:20 03:35 04:05 WBC 7.24 RBC 2.98 L Hgb 6.3 L* Hct 21.7 L MCV 73 L MCH 21.1 L MCHC 29.0 L RDW 17.8 H Plt Count 104 L MPV Immature Gran % 0.7 Neutrophils % 76.8 Lymphocytes % 8.6 Monocytes % 11.9 Eosinophils % 1.4 Basophils % 0.6 Nucleated RBC % 0.0 Absolute Neutrophils 5.57 Absolute Lymphocytes 0.62 L Absolute Monocytes 0.86 H Absolute Eosinophils 0.10 Absolute Basophils 0.04 RBC Morphology See Below Hypochromasia 2+ Microcytosis 1+ VBG Lactate 2.0 Sodium 137 Potassium 3.5 Chloride 101 Carbon Dioxide 30.3 Anion Gap 5.7 BUN 18 Creatinine 1.1 H Est GFR (CKD-EPI 2020) 54.06 Glucose 221 H Calcium 8.4 L Total Bilirubin 1.4 H AST 30 ALT 22 Alkaline Phosphatase 187 H Ammonia 33 H NT-Pro-B Natriuret Pep 139 Total Protein 6.0 L Albumin 2.6 L Procalcitonin 0.32 TSH 1.26 COVID-19 Source Nasopharynx SARS-CoV-2 (PCR) Negative Influenza Type A (PCR) Negative Influenza Type B (PCR) Negative RSV (PCR) Negative ABO/Rh O Positive Antibody Screen NEGATIVE Crossmatch See Detail Last Vital Signs Temp 39.3 C H 07/11/25 03:06 Pulse 99 H 07/11/25 03:06 Resp 18 07/11/25 03:06 BP 155/34 H 07/11/25 03:06 Time Spent Time spent with Patient: >75 minutes Time was spent: preparing to see the patient(eg.review tests), obtaining and/or reviewing separately otained hiistory, ordering medications,tests, procedures, indepentently interpreting results, counseling the patient and care coordination
--- NOTE | 2025-07-11 06:07 | W.PCEDHO ---
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 Excess skin of eyelid Pituitary cyst Hypersomnia GAVE (gastric antral vascular ectasia) JAYDEN (obstructive sleep apnea) Acquired arteriovenous malformation Atypical angina Biliary dyskinesia Lung nodule Submucosal neoplasm of stomach Anemia Dermoid cyst History of peptic ulcer disease Osteoarthritis Pancreatitis Hypertensive disorder Hepatic encephalopathy Edema Atrophy of vagina Atrophic vaginitis Actinic keratosis Pituitary adenoma Restless legs Neoplasm of parotid gland Lumbar spondylosis Lesion of esophagus Dyslipidemia Depressive disorder Crohn's disease Chronic low back pain Anxiety Anemia Cirrhosis SALCIDO (nonalcoholic steatohepatitis) CHF (congestive heart failure) Anasarca (Last Reviewed 07/11/25 @ 05:05 by Devin Carlson) History of oophorectomy, unilateral History of rotator cuff surgery History of total knee arthroplasty History of sleeve gastrectomy History of hysterectomy Most Recent Vital Signs Temperature 37.6 C H 07/11/25 05:59 Temperature Source Oral 07/11/25 05:59 Pulse 93 H 07/11/25 05:45 Respiratory Rate 20 07/11/25 05:45 Blood Pressure 115/41 L 07/11/25 05:45 Blood Pressure Mean 61 07/11/25 05:06 Blood Pressure Position Supine 07/11/25 03:18 Pulse Oximetry 94 07/11/25 05:26 Oxygen Delivery Method Room Air 07/11/25 05:45 Oxygen Flow Rate 0 07/11/25 05:45 Pain Level 0 07/11/25 05:06 Allergies Penicillins Allergy (Severe, Verified 03/26/25 15:45) Swelling/Edema tramadol Allergy (Severe, Verified 03/26/25 15:45) Swelling/Edema apricot Allergy (Intermediate, Verified 03/26/25 15:45) Hives apricots, fruit. ferrous sulfate Allergy (Unknown, Verified 03/26/25 15:45) Other (See Comment) raspberry Allergy (Verified 03/26/25 15:45) Other (See Comment) pineapple Adverse Reaction (Intermediate, Unverified 03/26/25 15:45) Topical Irritation vancomycin Adverse Reaction (Intermediate, Verified 03/26/25 15:45) Other (See Comment) Red Man Syndrome Precautions Isolation Standard precaution 07/11/25 03:18 IV IV Catheter Type [left acf] Saline Lock IV Catheter Gauge [left acf] 20 Diagnostics 07/11/25 07/11/25 07/11/25 Range/Units 04:05 03:35 03:20 WBC 7.24 (4.4-10.8) 10^3/uL RBC 2.98 L (3.93-5.22) 10^6/uL Hgb 6.3 L* (11.2-15.7) g/dL Hct 21.7 L (36.0-46.0) % MCV 73 L (80-95) fL MCH 21.1 L (27.0-33.0) pg MCHC 29.0 L (32.0-36.0) % RDW 17.8 H (11.7-14.6) % Plt Count 104 L (130-400) 10^3/uL MPV (8.0-11.0) fL Immature Gran % 0.7 % Neutrophils % 76.8 % Lymphocytes % 8.6 % Monocytes % 11.9 % Eosinophils % 1.4 % Basophils % 0.6 % Nucleated RBC % 0.0 (0.0-0.3) % Absolute Neutrophils 5.57 (1.2-6.7) 10^3/uL Absolute Lymphocytes 0.62 L (1.2-3.4) 10^3/uL Absolute Monocytes 0.86 H (0.1-0.8) 10^3/uL Absolute Eosinophils 0.10 (0.0-0.7) 10^3/uL Absolute Basophils 0.04 (0.0-0.2) 10^3/uL RBC Morphology See Below Hypochromasia 2+ Microcytosis 1+ VBG Lactate 2.0 (<or=2.0) mmol/L Sodium 137 (136-145) mmol/L Potassium 3.5 (3.5-5.1) mmol/L Chloride 101 (98-107) mmol/L Carbon Dioxide 30.3 (21.0-32.0) mmol/L Anion Gap 5.7 (3-11) mmol/L BUN 18 (7-18) mg/dL Creatinine 1.1 H (0.55-1.02) mg/dL Est GFR (CKD-EPI 2020) 54.06 (mL/min/1.73m2) Glucose 221 H (74-106) mg/dL Calcium 8.4 L (8.5-10.1) mg/dL Total Bilirubin 1.4 H (0.2-1.0) mg/dL AST 30 (15-37) U/L ALT 22 (14-59) U/L Alkaline Phosphatase 187 H (46-116) U/L Ammonia 33 H (11-32) umol/L NT-Pro-B Natriuret Pep 139 (<300) pg/mL Total Protein 6.0 L (6.4-8.2) g/dL Albumin 2.6 L (3.4-5.0) g/dL Procalcitonin 0.32 ng/mL TSH 1.26 (0.36-3.74) uIU/mL B. divergens/MO-1 PCR Pending Babesia duncani (PCR) Pending Babesia microti DNA PCR Pending Lyme Disease Antibody Pending COVID-19 Source Nasopharynx SARS-CoV-2 (PCR) Negative (Negative) E.chaffeensis DNA (PCR) Pending E.ewingii/canis DNA PCR Pending E.muris eauclairensis (PCR) Pending Influenza Type A (PCR) Negative (Negative) Influenza Type B (PCR) Negative (Negative) RSV (PCR) Negative (Negative) A. phagocytophilum (PCR) Pending Blood B. miyamotoi (PCR) Pending ABO/Rh O Positive Antibody Screen NEGATIVE Crossmatch See Detail 07/11/25 04:10 Blood Culture - Pending Blood 07/11/25 03:20 Blood Culture - Pending Blood Intake and Output - 24 Hour Total 07/11/25 02:57 thru 07/11/25 04:54 Intake Total 100 Balance 100 Weight 94.801 kg Intake: IV 100 Falls Risk Assessment History of Falls No History 07/11/25 03:18 Contributing Factors No Factors 07/11/25 03:18 Fall Total Score 0 07/11/25 03:18 Level of Risk Standard/Low Risk 07/11/25 03:18 Problems (Last Reviewed 07/11/25 @ 05:05 by Devin Carlson) GERD (gastroesophageal reflux disease) (Chronic) Anemia (Chronic) Sepsis (Acute) Community acquired pneumonia (Acute) 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) v v v v v v v v v Sending and/or Receiving Nurses: Please use comment section below to note any information pertinent to the patient hand-off not included above. Information / Comments: report received from ED. On RA. Currently receiving a transfusion. Well tolerated so far as per ED RN. Report received from: Shorty SHAVER
[2025-07-11 07:59] LABS: INR 1.3 (0.9-1.1); Prothrombin Time 12.7 sec (9.1-11.1)
[2025-07-11] MEDS: Insulin Aspart 300 UNITS/3 ML PEN SC ×4 (08:16→20:13)
[2025-07-11] MEDS: DOXYCYCLINE 100 MG in Normal Saline 100 ML IVPB ×2 (08:16→20:15)
[2025-07-11] MEDS: Empaglifozin 10 MG TAB PO (08:18)
[2025-07-11] MEDS: Pantoprazole 40 MG TABCR PO ×2 (08:18→20:12)
[2025-07-11] MEDS: rOPINIRole 1 MG TAB 2 MG PO ×3 (08:18→20:23)
[2025-07-11] MEDS: Magnesium Oxide 400 MG TAB PO (08:18)
[2025-07-11] MEDS: FLUoxetine 20 MG CAP 40 MG PO (08:19)
[2025-07-11] MEDS: Oxybutynin 5 MG TAB PO ×2 (08:19→20:12)
[2025-07-11] MEDS: amLODIPine 5 MG TAB PO (08:19)
[2025-07-11] MEDS: Potassium Chloride 20 MEQ TABCR PO (08:19)
[2025-07-11] MEDS: Nystatin POWDER 15 GM JAR TP ×2 (08:44→14:14)
[2025-07-11] MEDS: Acetaminophen 325 MG TAB 650 MG PO (10:50)
--- NOTE | 2025-07-11 12:16 | PDOC.CMIN ---
Date of service: 07/11/25 Time of Service: 12:16 Care Management Initial Assmt Initial Assessment Reason for Hospitalization: sepsis, pneumonia Functional Status/Living Situation Patient Presentation: Re was sitting up in her chair when CM met with her. She was pleasant, but appeared sleepy, so she engaged minimally. She stated that she feels very tired today. Per report, she had two units of blood today, as her Hgb was 6.3. She is hoping she will start to feel better after receiving blood. She stated that her , Alexis, remains at [facility], and although he wants to come home, she knows that she has to prioritize her own health, and can't take care of him at this time. She stated that she does not have current HH services, but she has a household appliance installer who comes into the home twice a week, and she has become a good friend. She stated that she would like to get back into bed; CM informed her RN. CM will continue to follow. Town of Residence: [place] Resides with: Child (son, Isra) Significant Other/Family: Local (, Alexis, lives at [facility]) Employment Status: Retired Instrumental Activities of Daily Living (ADLs): Independent Medications Medication Management: No Issues/Barriers identified Physical Functioning/Mobility Assistive Device: FWW Advance Directives Advance Directives: Do you have an Advance Directive: N 09/23/23, 16:39 AD On File at [facility]: N 09/23/23, 16:39 Date Asked 07/05/25 07/05/25, 11:40 AD Date Reviewed COLST On File at [facility] No 09/11/24, 23:35 COLST Date Scanned Code Status Resuscitation Status Full Code Insurance Coverage/Financial Issues Insurance: VBA Care Team Visit Care Team Role Provider Type Karuna Segal NP NURSE PRACTITIONER Jefe Coffey Primary Care Provider NON-[facility] STAFF PHYSICIAN Yo Lopez DO Emergency Provider [facility] STAFF PHYSICIAN Devin Carlson Admit Provider NON-[facility] STAFF PHYSICIAN Attending Provider Discharge Potential Discharge Needs: PCP F/U Appt Anticipated Barriers to Discharge: None Identified Patient/Family Education Needs: Review discharge instructions, discuss Ask Me Three Transportation: Private vehicle Plan: Anticipate Re will return home once medically cleared. Her son Isra will drive her home via private vehicle. She will follow up with her PCP and discharge plan of care. CM will continue to follow. Social Determinants of Health Screening Social Determinants of health last assessed in clinic: 07/11/25 Will the Patient Participate in the Screening?: Yes Do you worry about having a steady place to live?: yes What is your living situation today?: I have housing today, but am worried about losing it Problems where you live: no known problems In the past 12 months, have you had to go without electric, gas, oil or water in your home?: no 1. Within the past 12 months, we worried whether our food would run out before we got money to buy more.: Don't know/refused 2. Within the past 12 months, the food we bought just didn't last and we didn't have money to get more.: Don't know/refused Has lack of transportation kept you from medical appointments or from doing things needed for daily living?: no Has anyone in your life made you feel unsafe or unsupported?: no How hard is it for you to pay for the very basics like food, housing, medical care, and heating? Would you say it is:: Somewhat hard Do you want help finding or keeping work or a job?: I do not need or want help If for any reason you need help with day-to-day activities such as bathing, preparing meals, shopping, managing finances, etc., do you get the help you need?: I could use a little more help How often do you feel lonely or isolated from those around you?: Never Do you speak a language other than Polish at home?: No Does the patient want assistance with any of the above?: No Health Related Social Needs Health related social needs: housing instability, housed, with risk of homelessness (Z59.811), problems related to housing/economic circumstances (Z59.89) and problems with daily activities (Z73.9) Health related social needs details: w ADLs PFSH All Active Problems (Updated 07/11/25 @ 05:57 by Devin Carlson) GERD (gastroesophageal reflux disease) (Chronic) Anemia (Chronic) Sepsis (Acute) Community acquired pneumonia (Acute) Sepsis (Acute) Bacteremia due to Klebsiella pneumoniae (Acute) Acute coronary syndrome with high troponin (Acute) Sepsis due to Gram-negative organism with septic shock (Acute) 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) Medical History Anemia UTI (urinary tract infection) Type 2 diabetes mellitus Hypovolemia Hyperammonemia 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 Left clavicle Excess skin of eyelid Pituitary cyst Hypersomnia GAVE (gastric antral vascular ectasia) JAYDEN (obstructive sleep apnea) Acquired arteriovenous malformation Atypical angina Biliary dyskinesia Lung nodule Submucosal neoplasm of stomach Anemia Dermoid cyst History of peptic ulcer disease Osteoarthritis Pancreatitis Hypertensive disorder Hepatic encephalopathy Edema Atrophy of vagina Atrophic vaginitis Actinic keratosis Pituitary adenoma Restless legs Neoplasm of parotid gland Lumbar spondylosis Lesion of esophagus Dyslipidemia Depressive disorder Crohn's disease Chronic low back pain Anxiety Anemia Cirrhosis SALCIDO (nonalcoholic steatohepatitis) CHF (congestive heart failure) Anasarca Surgical History History of oophorectomy, unilateral History of rotator cuff surgery bilateral History of total knee arthroplasty bilateral History of sleeve gastrectomy History of hysterectomy Family History Brother Cancer Lung Alcohol use disorder 2 older brothers Social History Smoking/Tobacco Use Status: Never Smoking risk assessment performed?: Yes Alcohol Intake: never Drug use: Never Substance use type: does not use Housing: house Current gender identity: female Do you feel safe at home: Yes Do you feel safe in your relationship?: Yes Additional Social history: Lives with Arslan, and son in [place]. Moved from [place] in 2020. Has a dog and 8 pet birds.
[2025-07-11] MEDS: cefTRIAXone 2 GM/50 ML BAG IVPB (17:17)
[2025-07-11 18:30] LABS: HCT 24.4 % (36.0-46.0); HGB 7.3 g/dL (11.2-15.7)
[2025-07-11] MEDS: Normal Saline Flush 10 ML SYR IVP (20:23)
[2025-07-11 21:44] LABS: Glucose 500 mg/dL (Negative)
[2025-07-11 23:23] LABS: MRSA PCR Negative (Negative)
[2025-07-12] MEDS: oxyCODONE 5 MG TAB PO ×2 (00:36→23:53)
[2025-07-12 04:03] VITALS: BP 134/60; PULSE 89; RESP 22; TEMP 38.9; O2SAT 94
[2025-07-12] MEDS: Acetaminophen 325 MG TAB 650 MG PO ×2 (04:04→07:54)
[2025-07-12 04:33] LABS: HCT 27.0 % (36.0-46.0); HGB 7.9 g/dL (11.2-15.7); MCHC 29.3 % (32.0-36.0); MCV 77 fL (80-95); MPV 10.5 fL (8.0-11.0); RBC 3.50 10^6/uL (3.93-5.22); RDW 18.3 % (11.7-14.6); RDW-SD 50.8 fL; WBC 6.64 10^3/uL (4.4-10.8)
[2025-07-12 04:48] LABS: ALT 20 U/L (14-59); AST 29 U/L (15-37); Albumin 2.4 g/dL (3.4-5.0); Alkaline Phosphatase 162 U/L (46-116); Anion Gap 6.9 mmol/L (3-11); BUN 18 mg/dL (7-18); Bilirubin, Total 1.4 mg/dL (0.2-1.0); CO2 28.1 mmol/L (21.0-32.0); Calcium 8.1 mg/dL (8.5-10.1); Chloride 103 mmol/L (98-107); Estimated GFR 68.77 (mL/min/1.73m2); Glucose 167 mg/dL (74-106); Potassium 3.8 mmol/L (3.5-5.1); Sodium 138 mmol/L (136-145); Total Protein 5.9 g/dL (6.4-8.2)
[2025-07-12 04:53] LABS: MCH 22.6 pg (27.0-33.0); Platelet Count 88 10^3/uL (130-400)
[2025-07-12 07:23] VITALS: BP 113/33; PULSE 80; RESP 17; TEMP 37.1; O2SAT 92
[2025-07-12] MEDS: FLUoxetine 20 MG CAP 40 MG PO (07:54)
[2025-07-12] MEDS: amLODIPine 5 MG TAB PO (07:55)
[2025-07-12] MEDS: Magnesium Oxide 400 MG TAB PO (07:55)
[2025-07-12] MEDS: rOPINIRole 1 MG TAB 2 MG PO ×3 (07:55→21:09)
[2025-07-12] MEDS: Potassium Chloride 20 MEQ TABCR PO (07:55)
[2025-07-12] MEDS: Normal Saline Flush 10 ML SYR IVP ×2 (07:55→21:11)
[2025-07-12] MEDS: Pantoprazole 40 MG TABCR PO ×2 (07:55→21:09)
[2025-07-12] MEDS: Torsemide 20 MG TAB 40 MG PO (07:55)
[2025-07-12] MEDS: Empaglifozin 10 MG TAB PO (07:55)
[2025-07-12] MEDS: Oxybutynin 5 MG TAB PO ×2 (07:55→21:09)
[2025-07-12] MEDS: Insulin Aspart 300 UNITS/3 ML PEN SC ×4 (07:56→21:43)
[2025-07-12] MEDS: DOXYCYCLINE 100 MG in Normal Saline 100 ML IVPB ×2 (07:56→21:08)
--- NOTE | 2025-07-12 10:18 | PGE_ITS ---
Date of Service Date of service: 07/12/25 Time of Service: 10:18 Assessment and Plan Assessment and plan (1) Sepsis: Start date: 07/11/25 Status: Acute Assessment and plan: Sepsis criteria meet on admission: Tachycardia HR 92- 95, fever 39.3 . Source respiratory Blood Cx pending . Urinalysis unremarkable Urine culture pending (2) Community acquired pneumonia: Start date: 07/11/25 Status: Acute Assessment and plan: Most likely source of sepsis with plain film chest x-ray showing bilateral infiltrates VS vascular congestion with her CHF which appears stable with normal BNP. Levaquin initiated because of penicillin allergies and doxycycline to cover community-acquired pneumonia On admission was transitioned to ceftriaxone and doxycycline- Plan for oral on d/c if blood Cx are negative (3) Anemia: Status: Chronic Assessment and plan: Chronic blood loss anemia with patient worsened and drop in hemoglobin below 7 g/dL. H&H 7.9 & 27 - stable s/p 2 units of packed red blood cells transfusion CBC in AM (4) Type 2 diabetes mellitus: Assessment and plan: ongoing fingersticks AC and HS with SSI coverage Hold glipizide and metformin moderate insulin sliding scale coverage. (5) Liver cirrhosis secondary to SALCIDO: Status: Chronic Assessment and plan: Ammonia level stable, not encephalopathic Ongoing home dose lactulose. (6) CHF (congestive heart failure): Assessment and plan: On home dose torsemide Encourage oral hydration and nutrition. Avoid IV fluids. (7) GERD (gastroesophageal reflux disease): Status: Chronic Assessment and plan: ongoing home dose of PPi (8) JAYDEN (obstructive sleep apnea): Assessment and plan: Ongoing home CPAP as per home settings (9) Nausea: Status: Acute Assessment and plan: Compazine PRN discussed with Dr. Torres Subjective Subjective Patient reports: feels better, tolerating liquids well, tolerating a regular diet, voiding w/o difficulty, no bowel movement and fever; denies diarrhea, vomiting or shortness of breath Exam Narrative Exam Narrative: Constitutional The patient is w/o acut distress, ambulating with FWW, steady gait Neuro:alert and oriented to self, person, place, time and situation, non-focal Resp: Normal respiratory pattern, speaks in full sentences, unlabored breathing, Left > right basilar fine crackles Cardio: regular rhythm, S1, S2, murmur, bilateral radial and dorsalis pedis pulses are positive GI: Abdomen is large, not distended, soft and non tender, bowel sounds are present Extremities: moves lower and upper extremities- non-focal Psych: RASS 0, congruent mood and normal affect. Psych Mood: congruent mood Affect: normal affect Attitude: cooperative Thought Process: normal Thought Content: normal Objective Last Vital Signs Temp 37.1 C 07/12/25 07:23 Pulse 80 07/12/25 07:23 Resp 17 07/12/25 07:23 BP 113/33 L 07/12/25 07:23 Pulse Ox 92 07/12/25 07:23 Laboratory Results - last 24 hr 07/11/25 07/11/25 07/11/25 04:05 18:20 21:32 WBC RBC Hgb 7.3 L Hct 24.4 L MCV MCH MCHC RDW Plt Count MPV Sodium Potassium Chloride Carbon Dioxide Anion Gap BUN Creatinine Est GFR (CKD-EPI 2020) Glucose Calcium Total Bilirubin AST ALT Alkaline Phosphatase Total Protein Albumin Urine Color Yellow Urine Clarity Clear Urine pH 6.5 Ur Specific [place] 1.015 Urine Protein Negative Urine Ketones Negative Urine Blood Negative Urine Nitrite Negative Urine Bilirubin Negative Urine Urobilinogen 1.0 H Ur Leukocyte Esterase Negative Urine Glucose 500 H MRSA (TEM-PCR) ABO/Rh O Positive Antibody Screen NEGATIVE Crossmatch See Detail 07/11/25 07/12/25 22:00 04:20 WBC 6.64 RBC 3.50 L Hgb 7.9 L Hct 27.0 L MCV 77 L D MCH 22.6 L MCHC 29.3 L RDW 18.3 H Plt Count 88 L MPV 10.5 Sodium 138 Potassium 3.8 Chloride 103 Carbon Dioxide 28.1 Anion Gap 6.9 BUN 18 Creatinine 0.9 Est GFR (CKD-EPI 2020) 68.77 Glucose 167 H Calcium 8.1 L Total Bilirubin 1.4 H AST 29 ALT 20 Alkaline Phosphatase 162 H Total Protein 5.9 L Albumin 2.4 L Urine Color Urine Clarity Urine pH Ur Specific [place] Urine Protein Urine Ketones Urine Blood Urine Nitrite Urine Bilirubin Urine Urobilinogen Ur Leukocyte Esterase Urine Glucose MRSA (TEM-PCR) Negative ABO/Rh Antibody Screen Crossmatch Time Spent with Patient Time Spent with Patient: >50 minutes Time was spent: preparing to see the patient(eg.review tests), obtaining and/or reviewing separately otained hiistory, ordering medications,tests, procedures, referring, communicating with other health acute care nursing assistant, indepentently interpreting results, counseling the patient, care coordination and other
[2025-07-12 11:32] VITALS: BP 112/40; PULSE 69; RESP 17; TEMP 36.5; O2SAT 97
--- NOTE | 2025-07-12 14:35 | PCNE_ITS ---
Date of service: 07/12/25 Time of Service: 14:35 History of Present Illness Narrative: From H and P This is a 70-year-old female patient who has had multiple hospitalizations for sepsis usually with urinary source presents today with a 2-day history of mild cough which is nonproductive, generally feeling unwell and on the day of presentation fever up to 103 at home. In the ED she was also febrile but did not have an elevated WBC with question of pneumonia versus vascular congestion. She does have a history of CHF and recently was on an extra dose of her torsemide because of peripheral edema but no significant weight gain. She does have multiple medical problems including chronic blood loss anemia with GI abnormalities and chronic cirrhosis with hepatic encephalopathy which is stable on lactulose treatment. Anemia. She also has associated chronic thrombocytopenia which may complicate her blood loss anemia. She has not noted any melena or hematochezia. She also has not had any hematemesis with a history of vomiting. She denies any urinary symptoms. The patient was noted to have significant drop in her hemoglobin below 7 g/dL and was transfused with 2 units of packed red blood cells in the ED. She does occasionally need transfusions. She was initiated on Levaquin and doxycycline with panel sent because of her significant fever with minimal leukocytosis. Her absolute lymphocytes were low. She did meet sepsis criteria but was not hypotensive with no significant endorgan dysfunction from her baseline. She does live at home and will return home as she recovers. She is a full code. Interim Hx: Initially Re was quite sleepy. She ended up going to the bathroom with the nursing help and was wide-awake when she returned to bed. She says she really cannot remember what brought her into the hospital but that her son said she had to go to [facility] She said when she came in that she felt lousy but now she is feeling better. She knows she needs to stay there for IV antibiotics. She said usually she has urinary tract problems but this admission she states that she has pneumonia. She does state that in general she takes care of herself. Although she lives with her son, he is not very accommodating to her needs per Re. Her now is living in [facility] and rehab. She is sad because she cannot take care of him any longer. It is difficult for her to take care of herself. She does have home health coming in to do cleaning etc. for her Again now she is feeling much better. She was able to ambulate from the bed to the chair with standby assist of the nursing Assessment and Plan Assessment and plan (1) Nausea: Status: Acute (2) Community acquired pneumonia: Status: Acute (3) Advanced care planning/counseling discussion: Status: Acute Assessment and plan: I was quite impressed withRe's ability to understand our conversation. She could reiterate in her own words what I said. We talked about CODE STATUS specifically. She was adamant that if her heart stopped she did not want CPR. She also stated that if she was having problems breathing such as the pneumonia, CHF etc. she would want to be intubated for a trial time. We also talked about healthcare agent. She wants her sister to be the primary person to make decisions. Her son would be the secondary person to make decisions. We completed a healthcare agent form and it was signed by 2 witnesses. This was scanned into the chart. She was smiling and talking freely about how she was, how much better she was feeling and about her return home. I did relay the change of CODE STATUS to staff and hospitalist. I gave the original to the patient. PFSH All Active Problems (Updated 07/13/25 @ 08:24 by Ricarda Cisneros MD, DC) Advanced care planning/counseling discussion (Acute) Nausea (Acute) GERD (gastroesophageal reflux disease) (Chronic) Anemia (Chronic) Sepsis (Acute) Community acquired pneumonia (Acute) Sepsis (Acute) Bacteremia due to Klebsiella pneumoniae (Acute) Acute coronary syndrome with high troponin (Acute) Sepsis due to Gram-negative organism with septic shock (Acute) 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) Medical History Anemia UTI (urinary tract infection) Type 2 diabetes mellitus Hypovolemia Hyperammonemia 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 Left clavicle Excess skin of eyelid Pituitary cyst Hypersomnia GAVE (gastric antral vascular ectasia) JAYDEN (obstructive sleep apnea) Acquired arteriovenous malformation Atypical angina Biliary dyskinesia Lung nodule Submucosal neoplasm of stomach Anemia Dermoid cyst History of peptic ulcer disease Osteoarthritis Pancreatitis Hypertensive disorder Hepatic encephalopathy Edema Atrophy of vagina Atrophic vaginitis Actinic keratosis Pituitary adenoma Restless legs Neoplasm of parotid gland Lumbar spondylosis Lesion of esophagus Dyslipidemia Depressive disorder Crohn's disease Chronic low back pain Anxiety Anemia Cirrhosis SALCIDO (nonalcoholic steatohepatitis) CHF (congestive heart failure) Anasarca Surgical History History of oophorectomy, unilateral History of rotator cuff surgery bilateral History of total knee arthroplasty bilateral History of sleeve gastrectomy History of hysterectomy Family History Brother Cancer Lung Alcohol use disorder 2 older brothers Social History Smoking/Tobacco Use Status: Never Smoking risk assessment performed?: Yes Alcohol Intake: never Drug use: Never Substance use type: does not use Housing: house Current gender identity: female Do you feel safe at home: Yes Do you feel safe in your relationship?: Yes Additional Social history: Lives with Arslan, and son in [place]. Moved from [place] in 2019. Has a dog and 8 pet birds. Exam Narrative Exam Narrative: 70-year-old woman initially sleepy but after getting up and walking was wide- awake. Her heart was regular. Lungs little air movement. I did not appreciate any rales. It was definitely blunted inspiration. Her abdomen was soft nontender. I did examine her feet. There are no sores she does have 1+ edema. She was smiling and was able to reiterate in her own words when I asked her her understanding of certain things like her present condition and specifically we spoke about CODE STATUS Results Last Vital Signs Temp 97.7 F 07/12/25 11:32 Pulse 69 07/12/25 11:32 Resp 17 07/12/25 11:32 BP 112/40 L 07/12/25 11:32 Pulse Ox 97 07/12/25 11:32 Labs 07/13/25 06:29 07/13/25 06:29 Labs: Laboratory Results - last 24 hr 07/11/25 07/11/25 07/11/25 04:05 18:20 21:32 WBC RBC Hgb 7.3 L Hct 24.4 L MCV MCH MCHC RDW Plt Count MPV Sodium Potassium Chloride Carbon Dioxide Anion Gap BUN Creatinine Est GFR (CKD-EPI 2020) Glucose Calcium Total Bilirubin AST ALT Alkaline Phosphatase Total Protein Albumin Urine Color Yellow Urine Clarity Clear Urine pH 6.5 Ur Specific [place] 1.015 Urine Protein Negative Urine Ketones Negative Urine Blood Negative Urine Nitrite Negative Urine Bilirubin Negative Urine Urobilinogen 1.0 H Ur Leukocyte Esterase Negative Urine Glucose 500 H MRSA (TEM-PCR) Crossmatch See Detail 07/11/25 07/12/25 22:00 04:20 WBC 6.64 RBC 3.50 L Hgb 7.9 L Hct 27.0 L MCV 77 L D MCH 22.6 L MCHC 29.3 L RDW 18.3 H Plt Count 88 L MPV 10.5 Sodium 138 Potassium 3.8 Chloride 103 Carbon Dioxide 28.1 Anion Gap 6.9 BUN 18 Creatinine 0.9 Est GFR (CKD-EPI 2020) 68.77 Glucose 167 H Calcium 8.1 L Total Bilirubin 1.4 H AST 29 ALT 20 Alkaline Phosphatase 162 H Total Protein 5.9 L Albumin 2.4 L Urine Color Urine Clarity Urine pH Ur Specific [place] Urine Protein Urine Ketones Urine Blood Urine Nitrite Urine Bilirubin Urine Urobilinogen Ur Leukocyte Esterase Urine Glucose MRSA (TEM-PCR) Negative Crossmatch Laboratory Tests 07/11/25 07/12/25 07:30 04:20 INR 1.3 H Alkaline Phosphatase 162 H Imaging Chest x-ray: report reviewed (FINDINGS: LUNGS: Increased interstitial markings bilaterally. No focal infiltrate. No effusion is visible. HEART: Enlarged. Pulmonary vascular prominence. AORTA: Normal diameter. BONES: Old proximal left clavicle fracture. Postsurgical changes to both distal clavicles. Soft tissues: Unremar) Time Spent Time Spent with Patient Time Spent(min): 49
[2025-07-12 15:32] VITALS: BP 112/40; PULSE 71; RESP 20; TEMP 37; O2SAT 93
[2025-07-12] MEDS: cefTRIAXone 2 GM/50 ML BAG IVPB (15:37)
--- NOTE | 2025-07-12 16:30 | CMPROGNOTE_ITS ---
Date of service: 07/12/25 Time of Service: 16:30 Care Management Progress Note Progress Note Text Progress Note Text: Re was lying in bed, shivering, when CM met with her today. CM got her 2 warm blankets, and we spoke for only a short time as Re was really not feeling well. CM notified the RN of Re's complaint. Discharge Potential Discharge Needs: PCP F/U Appt Anticipated Barriers to Discharge: None Identified Patient/Family Education Needs: Review discharge instructions, discuss Ask Me Three Transportation: Private vehicle Plan: Re will discharge home once medically stable. She will f/u with her PCP and continue per her plan of care. Re will transport home with her son Isra. CM will continue to follow. Social Determinants of Health Screening Social Determinants of health last assessed in clinic: 07/12/25 Will the Patient Participate in the Screening?: Yes Do you worry about having a steady place to live?: yes What is your living si tuation today?: I have housing today, but am worried about losing it Problems where you live: no known problems In the past 12 months, have you had to go without electric, gas, oil or water in your home?: no 1. Within the past 12 months, we worried whether our food would run out before we got money to buy more.: Don't know/refused 2. Within the past 12 months, the food we bought just didn't last and we didn't have money to get more.: Don't know/refused Has lack of transportation kept you from medical appointments or from doing things needed for daily living?: no Has anyone in your life made you feel unsafe or unsupported?: no How hard is it for you to pay for the very basics like food, housing, medical care, and heating? Would you say it is:: Somewhat hard Do you want help finding or keeping work or a job?: I do not need or want help If for any reason you need help with day-to-day activities such as bathing, preparing meals, shopping, managing finances, etc., do you get the help you need?: I could use a little more help How often do you feel lonely or isolated from those around you?: Never Do you speak a language other than [place] at home?: No Does the patient want assistance with any of the above?: No Health Related Social Needs Health related social needs: housing instability, housed, with risk of homelessness (Z59.811), problems related to housing/economic circumstances (Z59.89) and problems with daily activities (Z73.9) Health related social needs details: w ADLs
[2025-07-12 19:36] VITALS: BP 123/50; PULSE 73; RESP 20; TEMP 36.9; O2SAT 97
[2025-07-12 23:00] VITALS: BP 115/47; PULSE 70; RESP 17; TEMP 36.7; O2SAT 96
[2025-07-13] VITALS (10 sets, daily range): BP systolic 102–145; BP diastolic 37–54; PULSE 65–80; RESP 16–19; TEMP 36–37; O2SAT 93–100
--- NOTE | 2025-07-13 | DI.CT_ITS ---
Exam(s) CT HEAD WO EXAM: CT HEAD WO CLINICAL HISTORY: fall, head trauma. TECHNIQUE: Imaging Protocol: Axial computed tomography images with coronal and sagittal reformatted images were created and reviewed COMPARISON: CT CT HEAD CERVICAL SPINE WO from 05/10/2025 FINDINGS: There are no skull fractures. There is no fluid in the visualized paranasal sinuses. Again noted is the previously described hyperdense mass in the pituitary fossa which measures 10 mm AP x 9 mm wide by 12 mm craniocaudal and is most probably a pituitary adenoma extending up through the suprasellar cistern and contacting the optic chiasm. There is no evidence of acute intracranial hemorrhage, new mass effect, or shift of midline structures. There are no extra-axial fluid collections. The ventricles are not enlarged or shifted and there is no blood within the ventricular system nor within the basal cisterns. Small benign midline lipomas are noted. IMPRESSION: Again noted is a well-defined hyperdense mass in the pituitary fossa which is probably a pituitary adenoma measuring 10 x 9 x 12 mm and extending cranially through the suprasellar cistern and contacting the optic chiasm. To clinically indicated this can be further studied with MRI. Main differential diagnosis is aneurysm of the anterior communicating artery. Preliminary virtual Radiology report reviewed. Hospitalist notified RADIATION DOSE DELIVERED: 800.7mGy.cm Total DLP DATA REPOSITORY: All CT scans at this facility are submitted to the National Radiology Data Registry (NRDR) Dose Index Registry (DIR) with the [employer] (ACR). RADIATION OPTIMIZATION: All CT scans at this facility use at least one of these dose optimization techniques: automated exposure control; mA and/or kV adjustment per patient size (includes targeted exams where dose is matched to clinical indication); or iterative reconstruction.
--- NOTE | 2025-07-13 02:11 | DI.VRAD_ITS ---
PROCEDURE INFORMATION: Exam: CT Head Without Contrast Exam date and time: 07/13/2025 1:27 AM Age: 70 years old Clinical indication: Injury or trauma; Blunt trauma (contusions or hematomas); Consciousness not specified; Injury date: Fall. Head trauma; HX of pituitary adenoma TECHNIQUE: Imaging protocol: Computed tomography of the head without contrast. Radiation optimization: All CT scans at this facility use at least one of these dose optimization techniques: automated exposure control; mA and/or kV adjustment per patient size (includes targeted exams where dose is matched to clinical indication); or iterative reconstruction. COMPARISON: CT HEAD CERVICAL SPINE WO 05/10/2025 7:50 PM FINDINGS: Brain: No acute intracranial hemorrhage or mass lesions. No midline shift. Normal rosales-white differentiation. There are mild scattered deep and periventricular white matter changes likely associated with chronic microvascular ischemia. Cerebral ventricles: No ventriculomegaly. Paranasal sinuses: Visualized sinuses are unremarkable. No fluid levels. Mastoid air cells: Visualized mastoid air cells are well aerated. Bones: Unremarkable. No acute fracture. Soft tissues: Probable small lipomas are present along the falx cerebri. IMPRESSION: 1. No acute intracranial findings. 2. Findings likely associated with chronic microvascular ischemia. Dictated and Authenticated by: Aibmbola Good MD. Orderin Ruiz Vázquez MD
[2025-07-13] MEDS: Acetaminophen 325 MG TAB 650 MG PO (03:55)
--- NOTE | 2025-07-13 06:24 | W.EVENT ---
Date of service: 07/13/25 Time of Service: 06:24 Event Note: paged at 1am, patient had fallen and hit her head. Had some local pain and swelling on right side. She describes getting up and trying to get to her walker on the other side of the room, feeling lightheaded and tipping backwards and falling against the bed where she hit her head on a rail on the ride side. No chest pain, no headache prior to the event, no focal weakness, no LOC. CT w/o of head done which was reassuring. Her vital signs immediately after the event and the rest of the morning remained stable. She remained alert and oriented with a non-focal neurologic assessment. She not longer has pain later this morning. Orthostatic vital signs this morning. PT consult active. Repeat blood counts as baseline severe anemia. Time Spent with Patient Time spent in critical care(minutes): 25 Time Spent Included: Chart review, Documenting critically ill care, Time at immediate bedside and Discussing critically ill care with other medical staff
[2025-07-13 06:50] LABS: HCT 26.4 % (36.0-46.0); HGB 7.9 g/dL (11.2-15.7); MCH 23.0 pg (27.0-33.0); MCHC 29.9 % (32.0-36.0); MCV 77 fL (80-95); RBC 3.43 10^6/uL (3.93-5.22); RDW 18.7 % (11.7-14.6); RDW-SD 52.0 fL; WBC 6.16 10^3/uL (4.4-10.8)
[2025-07-13 07:09] LABS: Anion Gap 6.9 mmol/L (3-11); BUN 16 mg/dL (7-18); CO2 29.1 mmol/L (21.0-32.0); Calcium 8.2 mg/dL (8.5-10.1); Chloride 102 mmol/L (98-107); Estimated GFR 54.06 (mL/min/1.73m2); Glucose 162 mg/dL (74-106); Potassium 3.8 mmol/L (3.5-5.1); Sodium 138 mmol/L (136-145)
[2025-07-13 07:17] LABS: Platelet Count 95 10^3/uL (130-400)
[2025-07-13] MEDS: Oxybutynin 5 MG TAB PO (08:03)
[2025-07-13] MEDS: rOPINIRole 1 MG TAB 2 MG PO (08:04)
[2025-07-13] MEDS: Potassium Chloride 20 MEQ TABCR PO (08:05)
[2025-07-13] MEDS: FLUoxetine 20 MG CAP 40 MG PO (08:10)
[2025-07-13] MEDS: Doxycycline Hyclate 100 MG CAP PO (08:10)
[2025-07-13] MEDS: Magnesium Oxide 400 MG TAB PO (08:11)
[2025-07-13] MEDS: Pantoprazole 40 MG TABCR PO (08:11)
[2025-07-13] MEDS: Empaglifozin 10 MG TAB PO (08:12)
[2025-07-13] MEDS: Normal Saline Flush 10 ML SYR IVP (08:19)
[2025-07-13 10:53] LABS: Lyme Ab w Rflx to Lyme Confirm Negative (Negative)
--- NOTE | 2025-07-13 11:13 | W.PM.PROGNOT ---
Date of Service Date of service: 07/13/25 Time of Service: 11:13 Assessment and Plan Assessment and plan (1) Sepsis: Start date: 07/11/25 Status: Acute Assessment and plan: Sepsis criteria meet on admission: Tachycardia HR 92- 95, fever 39.3 . Source respiratory Blood Cx pending . Urinalysis unremarkable Urine culture pending (2) Community acquired pneumonia: Start date: 07/11/25 Status: Acute Assessment and plan: Most likely source of sepsis with plain film chest x-ray showing bilateral infiltrates VS vascular congestion with her CHF which appears stable with normal BNP. Levaquin initiated because of penicillin allergies and doxycycline to cover community-acquired pneumonia On admission was transitioned to ceftriaxone and doxycycline- Plan for oral on d/c if blood Cx are negative (3) Anemia: Status: Chronic Assessment and plan: Chronic blood loss anemia with patient worsened and drop in hemoglobin below 7 g/dL. H&H 7.9 & 27 - stable s/p 2 units of packed red blood cells transfusion CBC in AM (4) Type 2 diabetes mellitus: Assessment and plan: ongoing fingersticks AC and HS with SSI coverage Hold glipizide and metformin moderate insulin sliding scale coverage. (5) Liver cirrhosis secondary to SALCIDO: Status: Chronic Assessment and plan: Ammonia level stable, not encephalopathic Ongoing home dose lactulose. (6) CHF (congestive heart failure): Assessment and plan: On home dose torsemide Encourage oral hydration and nutrition. Avoid IV fluids. (7) GERD (gastroesophageal reflux disease): Status: Chronic Assessment and plan: ongoing home dose of PPI (8) JAYDEN (obstructive sleep apnea): Assessment and plan: Ongoing home CPAP as per home settings (9) On deep vein thrombosis (DVT) prophylaxis: Status: Acute Assessment and plan: TEDs in the setting of point 3, not a candidate for LMWH (10) Fall: Status: Inactive Assessment and plan: Fall reported overnight around 1AM- while attempting to get OOB to get her electronic device- did not call for assistance Head strike :CT w/o of head done at he time : negative for acute findings/ bleed Ortho VS negative No furhter right sided pain reported but ongoing L wrist pain that was present prior to fall- no limitation in movement, no swelling Pt consult for safe d/c was initiated yesterday and pending (11) Nausea: Status: Acute Assessment and plan: Compazine PRN discussed with Dr. Torres Exam Narrative Exam Narrative: Constitutional The patient is w/o acut distress, ambulating with FWW, steady gait Neuro:alert and oriented to self, person, place, time and situation, non-focal Resp: Normal respiratory pattern, speaks in full sentences, unlabored breathing, Left > right basilar fine crackles Cardio: regular rhythm, S1, S2, murmur, bilateral radial and dorsalis pedis pulses are positive GI: Abdomen is large, not distended, soft and non tender, bowel sounds are present Extremities: moves lower and upper extremities- non-focal Psych: RASS 0, congruent mood and normal affect. Objective Last Vital Signs Temp 36.6 C 07/13/25 07:51 Pulse 71 07/13/25 07:51 Resp 17 07/13/25 07:51 BP 105/42 L 07/13/25 07:51 Pulse Ox 93 07/13/25 07:51 Laboratory Results - last 24 hr 07/13/25 07/13/25 05:35 06:29 WBC 6.16 RBC 3.43 L Hgb 7.9 L Hct 26.4 L MCV 77 L MCH 23.0 L MCHC 29.9 L RDW 18.7 H Plt Count 95 L MPV Sodium Cancelled 138 Potassium Cancelled 3.8 Chloride Cancelled 102 Carbon Dioxide Cancelled 29.1 Anion Gap Cancelled 6.9 BUN Cancelled 16 Creatinine Cancelled 1.1 H Est GFR (CKD-EPI 2020) Cancelled 54.06 Glucose Cancelled 162 H Calcium Cancelled 8.2 L Total Bilirubin Cancelled AST Cancelled ALT Cancelled Alkaline Phosphatase Cancelled Total Protein Cancelled Albumin Cancelled
[2025-07-13] MEDS: Insulin Aspart 300 UNITS/3 ML PEN SC (12:06)
--- NOTE | 2025-07-13 12:32 | W.PM.DS.N ---
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: Status: Chronic (6) CHF (congestive heart failure): (7) GERD (gastroesophageal reflux disease): Status: Chronic (8) JAYDEN (obstructive sleep apnea): (9) On deep vein thrombosis (DVT) prophylaxis: Status: Acute (10) Fall: Status: Inactive (11) Nausea: Status: Acute Discharge Plan Disposition Patient Disposition: Home W/Home Health Services Condition: Improving Discharge Details Reason For Visit: Sepsis, Pneumonia Admit Date/Time: 07/11/25 05:23 Admit Provider: Devin Carlson Attending Provider: Devin Carlson Primary Care Provider: Jefe Coffey Hospital Course Hospital Course: 70 year-old female with a PMHx of CHF, atypical angina, submucosal neoplasm of stomach, chronic anemia with thrombocytopenia, gastric antral vascular ectasias, peptic ulcer disease, laparoscopic band surgery on 07/2012, pancreatitis, hypertension, hepatic encephalopathy, edema, pituitary adenoma, Crohn's disease, MASLD cirrhosis, anasarca, T2DM, multiple falls, GIB, presented to ED on 07/11/2025 with a chief complaints of fever and feeling unwell and m,ild cough X 24- 48 hours. Chest XR was positive increased interstitial markings bilaterally and pulmonary vascular congestion, H&H of 6.3 & 21.7, platelet 104 and INR 1.3 near baseline ; chemistry was without actionable items with results close to baseline, ammonia at 33.The patient was febrile and tachycardic and admitted by the hospitalist to the medical surgical floor for sepsis, community acquired pneumonia and blood transfusion and H&H trending. Treatment initiated with levaquin IV in the ED with transition to ceftriaxone and ongoing doxycycline. Code status changed during palliative care consult. The patient fell w/o findings on work-up s/p fall. Physical therapy cleared the patient to go home with home health physical therapy. The patient was hemodynamically stable, with stable H&H and will be discharged home with home health physical therapy and nursing to assist with medicines ordered at [facility] and will need a PCP follow-up within 7 days of discharged. Oral antibiotics script sent to complete therapy for community acquired pneumonia. Discussed with Brian Recommendations for Follow Up Recommended tests to be ordered by follow up provider: Follow- up on tick and bloodborne pathogens panel, CBC , magnesium and CMP Home Meds and New Rx's Prescriptions: New acetaminophen 325 mg Tablet 650 mg PO Q12H PRN PRNQty: 10 0RF doxycycline hyclate 100 mg Capsule 100 mg PO BID Qty: 6 0RF cefpodoxime 200 mg tablet 200 mg PO Q12H Qty: 6 0RF Rx Instructions: must administer with a meal/food lactulose [Constulose] 10 gram/15 mL solution 20 g PO TID Qty: 1200 0RF magnesium oxide 400 mg magnesium tablet 400 mg PO DAILY Qty: 30 0RF Continued oxycodone 5 mg tablet 5 mg PO Q6H PRN metformin 1,000 mg Tablet 1,000 mg PO BID ropinirole 2 mg Tablet 2 mg PO TID nystatin 100,000 unit/gram Powder 6,000,000 unit topical TID Qty: 60 0RF Rx Instructions: apply to reddened skin folds doxepin 10 mg capsule 30 mg PO QHS Patient Comments: 20 mg once a day pantoprazole 40 mg Tablet,Delayed Release (Dr/Ec) 40 mg PO BID oxybutynin chloride 5 mg Tablet 5 mg PO BID Qty: 60 0RF torsemide 20 mg tablet 40 mg PO DAILY Patient Comments: TAKE TWO TABLETS BY MOUTH EVERY DAY fluoxetine 40 mg capsule 40 mg PO DAILY ondansetron HCl 4 mg tablet 4 mg PO DAILY PRN Patient Comments: TAKE ONE TABLET BY MOUTH EVERY DAY NEEDED FOR NAUSEA glipizide 5 mg tablet 5 mg PO DAILY amlodipine 5 mg tablet 5 mg PO DAILY Jardiance 10 mg tablet 10 mg PO DAILY potassium chloride 20 mEq tablet extended release 20 meq PO DAILY Rx Instructions: with meals Discharge Instructions Stand Alone Forms: Nursing Discharge Form Referrals: Jefe Coffey [Primary Care Provider, Medicine] Referral Note: Follow-up with PCP within 7 days of discharge. Please call PCP office to make a follow up appointment. Activity:: Activity as Tolerated Equipment/Supplies:: Walker Diet:: heart heathy diabetic Discharge Orders Discharge Orders: Discharge Order (Routine); Ordered 07/13/25 Ordered By: Lea Giordano DS: Summary Time Spent with Patient providing and/or coordinating discharge services: Greater than 30 minutes Status at Discharge Functional status at discharge: uses cane/walker Overall status at discharge: patient is progressing back to baseline Mental Status: mental status grossly normal Speech and Movement: speech and movement normal Mood: congruent mood Affect: normal affect Quality:SDOH Health Related Social Needs: Health related social needs risk of homeless house/econ circumstance daily activities Health related social needs details w ADLs Health related social needs details: w ADLs Exam Narrative Exam Narrative: Constitutional The patient is w/o acute distress, ambulating with FWW with steady gait during PT, A& O X4, neurologically intact, unlabored breathing, clear lungs,regular rhythm, S1, S2, murmur, bilateral radial and dorsalis pedis pulses are positive, abdomen is large, not distended, soft and non tender, bowel sounds are present, moves lower and upper extremities, bilat upper ext, pull/push equal, normal ROM left hand and wrist,RASS 0, congruent mood and normal affect. Psych Mental Status: mental status grossly normal Speech and Movement: speech and movement normal Mood: congruent mood Affect: normal affect DS: Data Vitals/I&O Vitals and I&O: Vital Signs Temperature 36.7 C 07/13/25 12:02 Temperature Source Temporal Artery Scan 07/13/25 12:02 Pulse 67 07/13/25 12:02 Respiratory Rate 16 07/13/25 12:02 Blood Pressure 111/49 L 07/13/25 12:02 Blood Pressure Mean 69 07/13/25 12:02 Blood Pressure Position Supine 07/11/25 03:18 Pulse Oximetry 95 07/13/25 12:02 Oxygen Delivery Method Room Air 07/13/25 12:02 Oxygen Flow Rate 0 07/13/25 12:02 Pain Level 0 07/13/25 12:02 Comment rn otified 07/13/25 07:51 Intake & Output 07/12/25 07/13/25 07/13/25 23:59 11:59 23:59 Intake Total 170 / 270 Output Total 800 / 1000 475 / 475 Balance -630 / -730 -475 / -475 Weight 95.8 kg Intake: IV 50 / 150 Oral 120 / 120 Output: Urine 800 / 1000 475 / 475 Other: Urine Color Yellow Yellow Urine Appearance Clear Clear Urine Odor Normal Normal Comment pt used bathroom independently and voided, but it was not measured Pt missed hat, Data Completed and Pending Labs on day of discharge: Labs from last 24 hours 07/13/25 07/13/25 07/11/25 06:29 05:35 03:20 WBC 6.16 RBC 3.43 L Hgb 7.9 L Hct 26.4 L MCV 77 L MCH 23.0 L MCHC 29.9 L RDW 18.7 H Plt Count 95 L MPV Sodium 138 Cancelled Potassium 3.8 Cancelled Chloride 102 Cancelled Carbon Dioxide 29.1 Cancelled Anion Gap 6.9 Cancelled BUN 16 Cancelled Creatinine 1.1 H Cancelled Est GFR (CKD-EPI 2020) 54.06 Cancelled Glucose 162 H Cancelled Calcium 8.2 L Cancelled Total Bilirubin Cancelled AST Cancelled ALT Cancelled Alkaline Phosphatase Cancelled Total Protein Cancelled Albumin Cancelled Lyme Disease Antibody Negative Preliminary micro results at discharge 07/11/25 03:20 Blood Blood Culture - Preliminary Staphylococcus aureus 07/11/25 21:32 Urine - Voided Urine Culture - Preliminary Gram positive juliana, mixed 07/12/25 04:25 Blood Blood Culture - Preliminary NO GROWTH 24 HOURS 07/12/25 04:20 Blood Blood Culture - Preliminary NO GROWTH 24 HOURS 07/11/25 04:10 Blood Blood Culture - Preliminary NO GROWTH 48 HOURS PFSH All Active Problems (Updated 07/13/25 @ 11:20 by Lea Giordano APRN) On deep vein thrombosis (DVT) prophylaxis (Acute) Advanced care planning/counseling discussion (Acute) Nausea (Acute) GERD (gastroesophageal reflux disease) (Chronic) Anemia (Chronic) Sepsis (Acute) Community acquired pneumonia (Acute) Sepsis (Acute) Bacteremia due to Klebsiella pneumoniae (Acute) Acute coronary syndrome with high troponin (Acute) Sepsis due to Gram-negative organism with septic shock (Acute) 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) Medical History Anemia UTI (urinary tract infection) Type 2 diabetes mellitus Hypovolemia Hyperammonemia 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 Left clavicle Excess skin of eyelid Pituitary cyst Hypersomnia GAVE (gastric antral vascular ectasia) JAYDEN (obstructive sleep apnea) Acquired arteriovenous malformation Atypical angina Biliary dyskinesia Lung nodule Submucosal neoplasm of stomach Anemia Dermoid cyst History of peptic ulcer disease Osteoarthritis Pancreatitis Hypertensive disorder Hepatic encephalopathy Edema Atrophy of vagina Atrophic vaginitis Actinic keratosis Pituitary adenoma Restless legs Neoplasm of parotid gland Lumbar spondylosis Lesion of esophagus Dyslipidemia Depressive disorder Crohn's disease Chronic low back pain Anxiety Anemia Cirrhosis SALCIDO (nonalcoholic steatohepatitis) CHF (congestive heart failure) Anasarca Surgical History History of oophorectomy, unilateral History of rotator cuff surgery bilateral History of total knee arthroplasty bilateral History of sleeve gastrectomy History of hysterectomy Family History Brother Cancer Lung Alcohol use disorder 2 older brothers Social History Smoking/Tobacco Use Status: Never Smoking risk assessment performed?: Yes Alcohol Intake: never Drug use: Never Substance use type: does not use Housing: house Current gender identity: female Do you feel safe at home: Yes Do you feel safe in your relationship?: Yes Additional Social history: Lives with Arslan, and son in [place]. Moved from [place] in 2019. Has a dog and 8 pet birds. Time Spent with Patient Time Spent with Patient: >85 minutes Time was spent: preparing to see the patient(eg.review tests), obtaining and/or reviewing separately otained hiistory, ordering medications,tests, procedures, referring, communicating with other health housekeeper child care, indepentently interpreting results, counseling the patient, care coordination and other
--- NOTE | 2025-07-13 12:47 | PDOC.HHF2F ---
Home Health Referral Home Health Orders Clinical synopsis of why skilled professionals are needed: 70 year-old female with a PMHx of CHF, atypical angina, submucosal neoplasm of stomach, chronic anemia with thrombocytopenia, gastric antral vascular ectasias, peptic ulcer disease, laparoscopic band surgery on 07/2012, pancreatitis, hypertension, hepatic encephalopathy, edema, pituitary adenoma, Crohn's disease, MASLD cirrhosis, anasarca, T2DM, multiple falls, GIB, presented to ED on 07/11/2025 with a chief complaints of fever and feeling unwell and m,ild cough X 24- 48 hours. Chest XR was positive increased interstitial markings bilaterally and pulmonary vascular congestion, H&H of 6.3 & 21.7, platelet 104 and INR 1.3 near baseline ; chemistry was without actionable items with results close to baseline, ammonia at 33.The patient was febrile and tachycardic and admitted by the hospitalist to the medical surgical floor for sepsis, community acquired pneumonia and blood transfusion and H&H trending. Treatment initiated with levaquin IV in the ED with transition to ceftriaxone and ongoing doxycycline. Code status changed during palliative care consult. The patient fell w/o findings on work-up s/p fall. Physical therapy cleared the patient to go home with home health physical therapy. The patient was hemodynamically stable, with stable H&H and will be discharged home with home health physical therapy and nursing to assist with medicines ordered at [facility] and will need a PCP follow-up within 7 days of discharged. Oral antibiotics script sent to complete therapy for community acquired pneumonia. Discussed with Brian Registered Nurse: Check all that apply Instruct on new or changed medication(s)/assess compliance: Ordered Assess for exacerbation of medical condition, instruct patient/caregivers on signs and symptoms to report for early detection: Ordered Physical Therapist: Check all that apply Increase strength & endurance for safe mobility at home: Ordered To design/establish home maintenance program: Ordered Fall reduction therapy program for patient with history of frequent falls: Ordered Home safety evaluation and teaching/gait training including stair management (if applicable): Ordered Home Bound Status Requires the aid of supportive device (check all that apply): Walker Describe why leaving home would require a considerable and taxing effort: Requires frequent rest periods Encounter Date and Reason: I certify that a FTF encounter for this patient was performed on July 13, 2025 and that such encounter was related to the primary reason the patient requires home health services. The encounter was conducted in the following manner: By me as the certifying physician, PHOTOCOPYING EQUIPMENT REPAIRER, PA or By an inpatient physician, PHOTOCOPYING EQUIPMENT REPAIRER or PA during an inpatient stay who communicated findings to me, Certification And Authentication I certify that I composed the above information based on my clinical judgment relating to this patient's medical condition and, if applicable, clinical findings communicated to me by the NPP or inpatient physician who performed the FTF encounter. Name of Provider that will be monitoring home health services: Jefe Coffey
--- NOTE | 2025-07-13 12:55 | DI.RAD_ITS ---
Exam(s) XR WRIST LT COMPLETE EXAM: XR WRIST LT COMPLETE CLINICAL HISTORY: Left wrist left hand pain s/p fall. TECHNIQUE: 2D digital imaging was performed. COMPARISON: No exams were available for comparison FINDINGS: 3 views No evidence of acute fracture or dislocation nor significant ulnar variance. Some calcification is noted in the triangular fibrocartilage on the medial aspect of the wrist. There are advanced degenerative changes at the 1st carpometacarpal joint on the lateral aspect of the wrist. Scaphoid and scaph olunate distance appear unremarkable. No significant osseous lesions. No erosions IMPRESSION: No fractures. Degenerative changes as above. DATA REPOSITORY: RADIATION DOSE DELIVERED:
--- NOTE | 2025-07-13 12:55 | DI.RAD_ITS ---
Exam(s) XR HAND LT COMPLETE EXAM: XR HAND LT COMPLETE CLINICAL HISTORY: Left wrist left hand pain s/p fall. TECHNIQUE: 2D digital imaging was performed. COMPARISON: No exams were available for comparison FINDINGS: 3 views No evidence of acute fracture or dislocation nor abnormal soft tissue densities. No radiopaque foreign bodies. There are advanced degenerative changes in the DIP joints and also involving PIP joints. Lesser involvement of the metacarpophalangeal joints. Advanced degenerative changes in the 1st carpometacarpal joint. IMPRESSION: Advanced multilevel chronic degenerative changes. No fractures. DATA REPOSITORY: RADIATION DOSE DELIVERED:
--- NOTE | 2025-07-13 13:01 | PT.INIE ---
PT Notes Visit Reasons: Sepsis, Pneumonia Physical Therapy Inpatient Initial Evaluation Date: 07/13/2025 Referring Doctor: Lea Giordano NP PT Orders: PT CONSULT: Safety consult for DC Precautions: Fall risk Patient Profile/Admitting Diagnosis: Pt presented to ED with fever, not feeling well. Labs revealed elevated WBC,low Hemoglobin received 2Units pRBC in ED. Pt admitted to Med Surg unit with Pneumonia and Sepsis treated with IV ABx. Pt sustained a fall on 07/13/25 at 1am with report of left wrist and thumb pain Xray:No evidence of acute fracture or dislocation nor abnormal soft tissue densities. No radiopaque foreign bodies. There are advanced degenerative changes in the DIP joints and also involving PIP joints. Lesser involvement of the metacarpophalangeal joints. Advanced degenerative changes in the 1st carpometacarpal joint. IMPRESSION: Advanced multilevel chronic degenerative changes. No fractures. Head CT:hyperdense mass in the pituitary fossa which measures 10 mm AP x 9 mm wide by 12 mm craniocaudal and is most probably a pituitary adenoma extending up through the suprasellar cistern and contacting the optic chiasm. 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 Left clavicleExcess skin of eyelid Pituitary cyst Hypersomnia GAVE (gastric antral vascular ectasia) JAYDEN (obstructive sleep apnea) Acquired arteriovenous malformation Atypical angina Biliary dyskinesia Lung nodule Submucosal neoplasm of stomach Anemia Dermoid cyst History of peptic ulcer disease Osteoarthritis Pancreatitis Hypertensive disorder Hepatic encephalopathy Edema Atrophy of vagina Atrophic vaginitis Actinic keratosis Pituitary adenoma Restless legs Neoplasm of parotid gland Lumbar spondylosis Lesion of esophagus Dyslipidemia Depressive disorder Crohn's disease Chronic low back pain Anxiety Anemia Cirrhosis SALCIDO (nonalcoholic steatohepatitis) CHF (congestive heart failure) Anasarca Surgical History History of oophorectomy, unilateral History of rotator cuff surgery bilateralHistory of total knee arthroplasty bilateralHistory of sleeve gastrectomy History of hysterectomy Social History/Home Situation: Pt resides on the first floor of her home. She has a ramp to enter. Her son lives with her but is not available to help. Pt states she has a homemaker 2x/week. She is independent with ADL and meal prep. Pt independent ambulation with FWW. She keeps commode next to her bed at night and wears shoes while awake. Equipment Owned/DME: FWW, ramp to enter Subjective: Pt reports she was getting up to go to the bathroom she states she was reaching for the walker when she fell . Pt states she was foolish and should have just used her call light. Objective: [] General Observation: Standing with RN having VS taken. Ecchymotic area to thenar emminence left hand Mental Status: A+Ox4, able to follow instructions, cooperative, agreeable to participate in evaluation. Pain: Left thumb/ wrist 2/10 ROM: [] Right Upper Extremity: WFL Left Upper Extremity: WFL Right Lower Extremity: WFL except DF to neutral Left Lower Extremity: WFL except DF to neutral Strength: [] BUE 4/5 except left hand thumb 3/5 Right Lower Extremity: hips 3/5, knee 3+/5 ankle 3+/5 Left Lower Extremity: hip 3/5, knee 3+/5, ankle 3+/5 Sensation: [] Bed Mobility/Transfers: [] Supine to sit independent Sit to stand independent Stand to sit independent Bed to chair SBA with FWW Gait: SBA with FWW 150 feet with reduced step length B increased lateral weight shift, reduced WB through Left hand/thumb Balance: [] Static Sitting: Normal Dynamic Sitting: Good + Static Standing: Good with UE support Dynamic Standing: Fair+ with UE Support Special Tests: [] Mobility Limitations Standardized Measure [] [facility] AM-PAC 6 clicks Basic Mobility Inpatient Short Form: [] Raw Score:23 CMS Score: 11.20% Informed Consent/Education: Patient instructed in purpose of PT consult. Assessment: Patient is a 70 yo male who presents with clinical signs and symptoms consistent with current/admitting diagnoses that have resulted to mobility limitations, gait instability, generalized weakness, and impairment of motor control as demonstrated by the following impairment level findings: 1. Decreased strength to major muscle groups 2. Impaired standing balance without UE support 3. pain in left wrist 4. Impaired functional activity tolerance Impairments are contributing to the following functional limitations: 1. Inability to safely ambulate without assistive device 2. Increase completion time for mobility ADL performance 3. Increased fall risk Patient is assessed as a moderate complexity based on the following: History: 70-year-old male with impairment level findings, functional limitations, and past medical history as indicated above Examination: Demonstrable impairment in strength, balance, and mobility level with underlying impairments and functional limitations as documented above Presentation: stable Decision Making: moderate Goals: N/A. pt d/c to home per Medical Plan of Care/Treatment Plan: N/A. DISCHARGE RECOMMENDATIONS: Home with HHPT TREATMENT CODE/TIME: [id number] Thank you for the opportunity to participate in the care of this patient. Imelda Howard, PT [facility]
--- NOTE | 2025-07-13 14:18 | CMDISCH_ITS ---
Date of service: 07/13/25 Time of Service: 14:18 LACE Index Scoring Tool Questions: Length of Stay (in days): 2 Was the patient admitted via the E.D.?: Yes Comorbidities: Previous M.I., Congestive Heart Failure, Chronic Pulmonary Disease, Any Tumor and Liver or Renal Disease E.D. Visits: 6 Answers: Total Score: 14 Risk of Readmission: High Risk Care Management Discharge Plan Reason for Hospitalization: pneumonia, anemia Discharge Plan: Re was discharged home earlier this afternoon with new HH services of PT. She will f/u with her PCP and continue per her plan of care. Re transported home with a friend. Patient/Family Education Needs: Review of discharge instructions, activity, limitations and discuss Ask me 3. Services Needed at Discharge: Home Health Care Services ([facility] PT) SDOH Health Related Social Needs: Health related social needs risk of homeless house/eco n circumstance daily activities Health related social needs details w ADLs Health related social needs details: w ADLs
[2025-07-14 16:44] LABS: B. miyamotoi PCR Negative (Negative); Babesia divergens/MO-1 Negative (Negative); Ehrlichia muris eauclairensis Negative (Negative)
== END 2025-07-13 14:01 | disposition home health service (06) | DRG 871 ==
LOC: ER 05:26 → MS 06:32
PROVIDERS: Family Medicine; Nurse Practitioner Acute Care; Admitting Provider Family Medicine; Emergency Provider Student in an Organized Health Care Education/Training Program; PCP Family Medicine; Responsible Provider Nurse Practitioner Acute Care; Visit Provider Family Medicine
DX: A41.9 Sepsis, unspecified organism (principal); J18.9 Pneumonia, unspecified organism; K76.6 Portal hypertension; K50.90 Crohn's disease, unspecified, without complications; I50.32 Chronic diastolic (congestive) heart failure; D50.0 Iron deficiency anemia secondary to blood loss (chronic); K75.81 Nonalcoholic steatohepatitis (NASH); K74.69 Other cirrhosis of liver; K21.9 Gastro-esophageal reflux disease without esophagitis; G47.33 Obstructive sleep apnea (adult) (pediatric); R11.0 Nausea; Z79.899 Other long term (current) drug therapy; Z79.84 Long term (current) use of oral hypoglycemic drugs; E78.00 Pure hypercholesterolemia, unspecified; F41.8 Other specified anxiety disorders; Z98.84 Bariatric surgery status; I25.10 Atherosclerotic heart disease of native coronary artery without angina pectoris; D73.2 Chronic congestive splenomegaly; K31.819 Angiodysplasia of stomach and duodenum without bleeding; R91.1 Solitary pulmonary nodule; G25.81 Restless legs syndrome; E78.5 Hyperlipidemia, unspecified; G89.29 Other chronic pain; M47.816 Spondylosis without myelopathy or radiculopathy, lumbar region; D69.59 Other secondary thrombocytopenia; Z96.653 Presence of artificial knee joint, bilateral; W18.39XA Other fall on same level, initial encounter; Y93.01 Activity, walking, marching and hiking; Y92.230 Patient room in hospital as the place of occurrence of the external cause; Z87.11 Personal history of peptic ulcer disease
CPT/HCPCS: 00123; 36415; 80048; 80053; 84145; 85027; 86850; 86900; 86901; 86920; 87040; 87077; 87637; 87641; 87798; 96365; 96366; 96367; 97162; 99291; 70450; 71045; 73110; 73130; 81003; 82140; 83605; 83880; 84443; 85014; 85018; 85025; 85610; 86618; 87086; 87186; 99223; 99233; 99239; J0131; J0696; J1815; J1956; P9016

== ENCOUNTER 2025-07-31 21:31 | Emergency (ER) | payer MEDICARE, SELFPAY ==
[2025-07-31] VITALS (24 sets, daily range): BP systolic 126–162; BP diastolic 28–71; PULSE 74–90; RESP 16–20; TEMP 36.1–36.7; O2SAT 91–100
--- NOTE | 2025-07-31 22:00 | W.ED.GENAD ---
Discharge Plan Disposition Patient Disposition: Home Condition: Fair Discharge Details Clinical Impression: Chronic blood loss anemia, Vaginal yeast infection, Liver cirrhosis secondary to SALCIDO Primary Care Provider: Jefe Coffey ED Provider: Melanie Samuel Home Meds and New Rx's Prescriptions: No Action oxycodone 5 mg tablet 5 mg PO Q6H PRN metformin 1,000 mg Tablet 1,000 mg PO BID ropinirole 2 mg Tablet 2 mg PO TID nystatin 100,000 unit/gram Powder 6,000,000 unit topical TID Qty: 60 0RF Rx Instructions: apply to reddened skin folds doxepin 10 mg capsule 30 mg PO QHS Patient Comments: 20 mg once a day acetaminophen 325 mg Tablet 650 mg PO Q12H PRN PRNQty: 10 0RF lactulose [Constulose] 10 gram/15 mL solution 20 g PO TID Qty: 1200 0RF magnesium oxide 400 mg magnesium tablet 400 mg PO DAILY Qty: 30 0RF pantoprazole 40 mg Tablet,Delayed Release (Dr/Ec) 40 mg PO BID oxybutynin chloride 5 mg Tablet 5 mg PO BID Qty: 60 0RF torsemide 20 mg tablet 40 mg PO DAILY Patient Comments: TAKE TWO TABLETS BY MOUTH EVERY DAY fluoxetine 40 mg capsule 40 mg PO DAILY ondansetron HCl 4 mg tablet 4 mg PO DAILY PRN Patient Comments: TAKE ONE TABLET BY MOUTH EVERY DAY NEEDED FOR NAUSEA glipizide 5 mg tablet 5 mg PO DAILY amlodipine 5 mg tablet 5 mg PO DAILY Jardiance 10 mg tablet 10 mg PO DAILY potassium chloride 20 mEq tablet extended release 20 meq PO DAILY Rx Instructions: with meals Discharge Instructions Instructions: Blood transfusion Additional Instructions: You were seen in the emergency department today for evaluation of general weakness, and were found to have a slightly low hemoglobin compared to your normal. Additionally, you were found to have a vaginal yeast infection. In our department you do full physical examination performed, had labs that were otherwise quite reassuring, though your ammonia is very slightly elevated compared to your normal. You were transfused 1 unit of red blood cells, and received a dose of fluconazole, which is a complete treatment for your yeast infection. You do not need to take further medications for your yeast infection. I recommend that you restart your lactulose at home as prescribed, and follow-up with your outpatient providers to discuss this visit and any symptoms that change, worsen, or persist. Please maintain good hydration, and return to the emergency department immediately if you experience blood in your vomit or stool, worsening weakness or dizziness, chest pain, shortness of breath, abdominal pain, or any other symptoms that cause you concern. Thank you for allowing us to be part of your care. HPI General Mode of arrival: ambulatory. Date/Time Provider Initiated Documentation: 07/31/25 21:32. Limitations to Documentation: no limitations. Information obtained by: patient and old records reviewed. HPI Narrative: This is a 70-year-old female patient with a past medical history significant for liver cirrhosis due to SALCIDO, complicated by abdominal varices, a recent admission for sepsis due to pneumonia, and history of type 2 diabetes, JAYDEN, GERD, presenting for evaluation of increasing weakness and fatigue today. The patient reports that since being discharged on 07/13 of this month she has felt significantly improved. However, today she felt very fatigued and sleepy, generally weak, and was advised to seek care for evaluation as she has required transfusion for anemia in the past. She states that she has not noted any external bleeding, had some nausea without vomiting, and has been passing stool daily that is not bloody or melanotic. She states that she experiencing chest pain, shortness of breath, pain. She has noted some dysuria, as well as vaginal irritation. She attributes this to a yeast infection, as she was recently given antibiotics for sepsis during her admission. The patient also endorses tongue pain which is a common occurrence with antibiotic use for her as well. Incidentally, the patient notes that she was informed by her home care nurse today that she should be taking her lactulose for ammonia levels. The patient thought that it was for stool management, and since she has been passing normal stools she has not taken it in several months. Related Data Home Medications ?Medication ?Instructions ?Recorded ?Confirmed metformin 1,000 mg tablet 1,000 mg PO BID 11/09/22 07/31/25 ropinirole 2 mg tablet 2 mg PO TID 11/09/22 07/31/25 pantoprazole 40 mg tablet,delayed 40 mg PO BID 12/15/22 07/31/25 release nystatin 100,000 unit/gram topical 6,000,000 unit topical TID #60 02/05/23 07/31/25 powder grams oxybutynin chloride 5 mg tablet 5 mg PO BID #60 tabs 11/13/23 07/31/25 torsemide 20 mg tablet 40 mg PO DAILY 01/23/24 07/31/25 fluoxetine 40 mg capsule 40 mg PO DAILY 01/24/24 07/31/25 ondansetron HCl 4 mg tablet 4 mg PO DAILY PRN 04/16/24 07/31/25 doxepin 10 mg capsule 30 mg PO QHS 10/24/24 07/31/25 oxycodone 5 mg tablet 5 mg PO Q6H PRN 01/11/25 07/31/25 amlodipine 5 mg tablet 5 mg PO DAILY 03/21/25 07/31/25 empagliflozin 10 mg tablet 10 mg PO DAILY 03/21/25 07/31/25 (Jardiance) glipizide 5 mg tablet 5 mg PO DAILY 03/21/25 07/31/25 potassium chloride 20 mEq 20 meq PO DAILY 03/21/25 07/31/25 tablet,extended release acetaminophen 325 mg tablet 650 mg (2 x 325 mg) PO Q12H PRN 07/13/25 07/31/25 PRN #10 tabs lactulose 10 gram/15 mL oral 20 g (30 mL) PO TID #1,200 mL 07/13/25 07/31/25 solution (Constulose) magnesium oxide 400 mg PO DAILY #30 tabs 07/13/25 07/31/25 Previous Rx's ?Medication ?Instructions ?Recorded nystatin 100,000 unit/gram topical 6,000,000 unit topical TID #60 02/05/23 powder grams oxybutynin chloride 5 mg tablet 5 mg PO BID #60 tabs 11/13/23 acetaminophen 325 mg tablet 650 mg (2 x 325 mg) PO Q12H PRN 07/13/25 PRN #10 tabs lactulose 10 gram/15 mL oral 20 g (30 mL) PO TID #1,200 mL 07/13/25 solution (Constulose) magnesium oxide 400 mg PO DAILY #30 tabs 07/13/25 Allergies Allergy/AdvReac Type Severity Reaction Status Date / Time Penicillins Allergy Severe Swelling/Ed Verified 07/31/25 21:35 sophie tramadol Allergy Severe Swelling/Ed Verified 07/31/25 21:35 sophie apricot Allergy Intermediate Hives Verified 07/31/25 21:35 ferrous sulfate Allergy Unknown Other (See Verified 07/31/25 21:35 Comment) raspberry Allergy Other (See Verified 07/31/25 21:35 Comment) pineapple AdvReac Intermediate Topical Verified 07/31/25 21:35 Irritation vancomycin AdvReac Intermediate Other (See Verified 07/31/25 21:35 Comment) General Stated Complaint: GenMedical CHELA: 3 Exam Narrative Exam Narrative: Gen: awake and alert, in no apparent distress. Appears well nourished. HEENT: PERRL, EOMs full. External ears and nose normal, mucous membranes moist. The tongue appears typical with no evidence of discharge/thrush Neck: Supple, full range of motion, no observable masses Lungs: No increased work of breathing, lung sounds clear and equal bilaterally CV: Heart with regular rate and rhythm, no murmurs auscultated. Strong and symmetrical radial pulses. Abdomen: Soft, non-tender to palpation. No rigidity, rebound tenderness, or guarding. : External vaginal examination without evidence of redness or rash, no significant discharge MSK: No joint swelling, no redness. Full ROM without limitation, no external traumatic findings. Skin: No rashes or lesions to visualized skin. Normal color, warm, and dry. Neuro: Cranial nerves II-XII intact and symmetrical bilaterally. 5/5 strength in all muscle groups x4 extremities. No sensory deficits. Ambulates with steady gait. Psych: Appropriate for situation. Course Vital Signs Vital signs: Vital Signs Temperature 36.7 C 07/31/25 21:37 Pulse 76 07/31/25 21:37 Respiratory Rate 20 07/31/25 21:37 Blood Pressure 147/71 H 07/31/25 21:37 Pulse Oximetry 98 07/31/25 21:37 Temperature 36.7 C 07/31/25 21:41 Temperature Source Oral 07/31/25 21:41 Pulse 80 07/31/25 21:50 Respiratory Rate 18 07/31/25 21:48 Respiratory Effort Normal, Non-Labored 07/31/25 21:48 Respiratory Depth Normal 07/31/25 21:48 Respiratory Pattern Normal 07/31/25 21:48 Blood Pressure 160/44 H 07/31/25 21:48 Blood Pressure Mean 85 07/31/25 21:48 Blood Pressure Position Sitting 07/31/25 21:41 Pulse Oximetry 100 07/31/25 21:50 Oxygen Delivery Method Room Air 07/31/25 21:41 Oxygen Flow Rate 0 07/31/25 21:41 Pain Level 0 07/31/25 21:41 Medical Decision Making This is a 70-year-old female patient presenting for evaluation of generalized weakness and increased fatigue, as well as dysuria and vaginal irritation. My differential includes but is not limited to anemia, the patient is without reported hematemesis or blood per rectum to suggest variceal bleed or brisk GI bleed, though occult GI bleed was certainly considered as a possible source given her history. Considered coagulopathy, hyperammonia anemia, though the patient is alert and oriented and I have a low concern for true hepatic encephalopathy at this time. Considered metabolic electrolyte derangement, dehydration, kidney injury, liver injury. Considered urinary tract infection, pyonephritis, no flank pain to suggest renal stone. Considered vaginitis including yeast infection, BV. No abdominal pain nor fever/chills to increase my concern for SBP. No focal neurodeficits to increase my concern for stroke or intracranial abnormalities. Will obtain labs to include CBC, CMP, magnesium, troponin, INR, lipase, ammonia, type and screen, urinalysis, and vaginal pathogens panel (swab obtained by this provider under supervision of ALEX Hartman.) I will provide the patient with Zofran for initial management of her nausea. - I reviewed the patient's laboratory studies, she has no leukocytosis, though her hemoglobin is slightly lower than her discharge level, 7.3 today. Given the trajectory, her history of chronic blood loss anemia, and her symptomatic complaints today I feel it is reasonable to proceed with transfusion of 1 unit of PRBCs. She has no elevation in her INR to suggest coagulopathy. She has no worsening of her baseline thrombocytopenia. Chemistry panel without electrolyte derangements, no kidney dysfunction, baseline elevation of alkaline phosphatase. Lipase is low. Troponin was negative. Ammonia slightly elevated, patient remains awake, alert, and oriented. We discussed reinitiation of her lactulose. The patient's vaginal pathogen panel was positive for yeast, she received a single dose of fluconazole here in the emergency department. I signed out care of the patient to the oncoming provider prior to completion of her urinalysis and completion of her transfusion of her unit of PRBCs. I feel that the patient, so long as she is feeling improved after transfusion, would be appropriate for outpatient follow-up given her reassuring workup thus far today. Certainly I am suspicious that her dysuria may be due to her yeast infection, though certainly if she has evidence of urinary tract infection antibiosis would be warranted. Patient remained hemodynamically appropriate, calm and comfortable while under my care. Melanie Samuel MD Quality:SDOH Health Related Social Needs: Health related social needs risk of homeless house/econ circumstance daily activities Health related social needs details w ADLs PFSH All Active Problems (Updated 07/31/25 @ 23:48 by Melanie Samuel MD) Vaginal yeast infection (Acute) Chronic blood loss anemia (Acute) GERD (gastroesophageal reflux disease) (Chronic) Anemia (Chronic) Community acquired pneumonia (Acute) Sepsis (Acute) Bacteremia due to Klebsiella pneumoniae (Acute) Acute coronary syndrome with high troponin (Acute) Sepsis due to Gram-negative organism with septic shock (Acute) 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) Medical History Anemia UTI (urinary tract infection) Type 2 diabetes mellitus Hypovolemia Hyperammonemia 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 Left clavicle Excess skin of eyelid Pituitary cyst Hypersomnia GAVE (gastric antral vascular ectasia) JAYDEN (obstructive sleep apnea) Acquired arteriovenous malformation Atypical angina Biliary dyskinesia Lung nodule Submucosal neoplasm of stomach Anemia Dermoid cyst History of peptic ulcer disease Osteoarthritis Pancreatitis Hypertensive disorder Hepatic encephalopathy Edema Atrophy of vagina Atrophic vaginitis Actinic keratosis Pituitary adenoma Restless legs Neoplasm of parotid gland Lumbar spondylosis Lesion of esophagus Dyslipidemia Depressive disorder Crohn's disease Chronic low back pain Anxiety Anemia Cirrhosis SALCIDO (nonalcoholic steatohepatitis) CHF (congestive heart failure) Anasarca Surgical History History of oophorectomy, unilateral History of rotator cuff surgery bilateral History of total knee arthroplasty bilateral History of sleeve gastrectomy History of hysterectomy Family History Brother Cancer Lung Alcohol use disorder 2 older brothers Social History Smoking/Tobacco Use Status: Never Smoking risk assessment performed?: Yes Alcohol Intake: never Drug use: Never Substance use type: does not use Housing: house Current gender identity: female Do you feel safe at home: Yes Do you feel safe in your relationship?: Yes Additional Social history: Lives with Arslan, and son in [place]. Moved from [place] in 2020. Has a dog and 8 pet birds.
[2025-07-31 22:04] LABS: Abs Immature Grans 0.01 10^3/uL (0.0-0.06); HCT 25.4 % (36.0-46.0); HGB 7.3 g/dL (11.2-15.7); Immature Grans % 0.2 %; MCH 22.3 pg (27.0-33.0); MCHC 28.7 % (32.0-36.0); MCV 78 fL (80-95); MPV 10.3 fL (8.0-11.0); Platelet Count 115 10^3/uL (130-400); RBC 3.27 10^6/uL (3.93-5.22); RDW 19.4 % (11.7-14.6); RDW-SD 54.9 fL; WBC 4.39 10^3/uL (4.4-10.8)
[2025-07-31] MEDS: Ondansetron 4 MG/2 ML VIAL IVP (22:05)
[2025-07-31 22:25] LABS: ALT 25 U/L (14-59); AST 38 U/L (15-37); Albumin 2.6 g/dL (3.4-5.0); Alkaline Phosphatase 294 U/L (46-116); Anion Gap 4.3 mmol/L (3-11); BUN 14 mg/dL (7-18); Bilirubin, Total 0.9 mg/dL (0.2-1.0); CO2 30.7 mmol/L (21.0-32.0); Calcium 8.1 mg/dL (8.5-10.1); Chloride 105 mmol/L (98-107); Estimated GFR 68.77 (mL/min/1.73m2); Glucose 265 mg/dL (74-106); Lipase 38 U/L (<78); Magnesium 2.2 mg/dL (1.8-2.4); Potassium 4.1 mmol/L (3.5-5.1); Sodium 140 mmol/L (136-145); Total Protein 6.4 g/dL (6.4-8.2); Troponin I 12 ng/L (<or=51)
[2025-07-31 22:31] LABS: INR 1.1 (0.9-1.1); PTT Activated 28.2 sec (20.6-30.2); Prothrombin Time 11.0 sec (9.1-11.1)
[2025-07-31 22:44] LABS: Ammonia 47 umol/L (11-32)
[2025-07-31 23:56] LABS: Glucose 500 mg/dL (Negative)
[2025-08-01] VITALS (28 sets, daily range): BP systolic 115–160; BP diastolic 28–97; PULSE 72–83; RESP 14–16; TEMP 36.2–36.4; O2SAT 86–96
[2025-08-01] LABS: C & S Indicated? No; RBC 0-2 HPF (0-2); WBC 0-2 HPF (0-5)
[2025-08-01 00:11] LABS: Troponin I 12 ng/L (<or=51)
[2025-08-01] MEDS: Fluconazole 150 MG TAB PO (01:14)
== END 2025-08-01 02:39 | disposition home or self-care (01) ==
PROVIDERS: Emergency Medicine; Emergency Provider Emergency Medicine; PCP Family Medicine
DX: D64.89 Other specified anemias (principal); K75.81 Nonalcoholic steatohepatitis (NASH); B37.31 Acute candidiasis of vulva and vagina; Z59.811 Housing instability, housed, with risk of homelessness
CPT/HCPCS: 99284; 99283; 36415; 96374; 80053; 83690; 86850; 86900; 86901; 86920; 81003; 81015; 82140; 83605; 83735; 84484; 85025; 85610; 85730; 87480; 87510; 87660; J2405; P9016

== ENCOUNTER 2025-09-13 12:47 | Observation (INO) | payer MEDICARE, SELFPAY ==
[2025-09-13] VITALS (14 sets, daily range): BP systolic 112–156; BP diastolic 28–85; PULSE 77–97; RESP 14–22; TEMP 36.6–37; O2SAT 92–97
--- NOTE | 2025-09-13 13:00 | RT.EKG_ITS ---
APPROVED REPORT Exam: Resting ECG Reason for Exam: SOB Patient Location: E HR:89 bpm ECG Measurements Heart Rate 89 AXIS MD 176 P 76 QRSd 92 QRS 56 QT 385 T 72 QTc 468 Conclusion Sinus rhythm...normal P axis, V-rate 60- 99 Probable left atrial enlargement...P >50mS, <-0.10mV V1 Nonspecific T abnormalities, lateral leads...T <-0.10mV, I aVL V5 V6
[2025-09-13 13:54] LABS: Abs Immature Grans 0.01 10^3/uL (0.0-0.06); HCT 22.8 % (36.0-46.0); Immature Grans % 0.3 %; MCH 22.7 pg (27.0-33.0); MCHC 27.6 % (32.0-36.0); MCV 82 fL (80-95); MPV 10.4 fL (8.0-11.0); Platelet Count 106 10^3/uL (130-400); RBC 2.77 10^6/uL (3.93-5.22); RDW 18.4 % (11.7-14.6); RDW-SD 54.8 fL; WBC 3.89 10^3/uL (4.4-10.8)
[2025-09-13 14:04] LABS: Hypochromasia 2+
[2025-09-13 14:05] LABS: Microcytosis 1+
[2025-09-13 14:06] LABS: HGB 6.3 g/dL (11.2-15.7)
--- NOTE | 2025-09-13 14:10 | DI.RAD_ITS ---
Exam(s) XR CHEST 2V PA LATERAL EXAM: XR CHEST 2V PA LATERAL CLINICAL HISTORY: sob. TECHNIQUE: 2D digital imaging was performed. COMPARISON: CR,XR XR PORTABLE CHEST AP from 07/11/2025 FINDINGS: 2 views: Cardiomegaly again noted. Mediastinum not widened. Prominent right hilum again noted. There are multiple increased markings in the lungs probably an element pulmonary venous hypertension. Also possible tiny noncalcified nodular densities in the lungs. There are no pleural effusions. IMPRESSION: As above. Recommend CT scan. DATA REPOSITORY: RADIATION DOSE DELIVERED:
[2025-09-13 14:20] LABS: Ammonia 65 umol/L (11-32)
[2025-09-13 14:30] LABS: ALT 22 U/L (14-59); AST 25 U/L (15-37); Albumin 2.1 g/dL (3.4-5.0); Alkaline Phosphatase 260 U/L (46-116); Anion Gap 4.6 mmol/L (3-11); BUN 27 mg/dL (7-18); Bilirubin, Total 0.7 mg/dL (0.2-1.0); CO2 29.4 mmol/L (21.0-32.0); Calcium 8.1 mg/dL (8.5-10.1); Chloride 105 mmol/L (98-107); Glucose 343 mg/dL (74-106); Magnesium 2.0 mg/dL (1.8-2.4); Potassium 3.6 mmol/L (3.5-5.1); Sodium 139 mmol/L (136-145); Total Protein 5.7 g/dL (6.4-8.2); Troponin I 22 ng/L (<or=51)
[2025-09-13 14:33] LABS: COVID-19 PCR Negative (Negative); RSV PCR Negative (Negative)
--- NOTE | 2025-09-13 14:47 | W.ED.GENAD ---
Discharge Plan Disposition Patient Disposition: Admit to [facility] Condition: Serious Discharge Details Clinical Impression: Anemia Primary Care Provider: Jefe Coffey ED Provider: Daniel Craft Home Meds and New Rx's Prescriptions: No Action oxycodone 5 mg tablet 5 mg PO Q6H PRN metformin 1,000 mg Tablet 1,000 mg PO BID ropinirole 2 mg Tablet 2 mg PO TID nystatin 100,000 unit/gram Powder 6,000,000 unit topical TID Qty: 60 0RF Rx Instructions: apply to reddened skin folds doxepin 10 mg capsule 30 mg PO QHS Patient Comments: 20 mg once a day acetaminophen 325 mg Tablet 650 mg PO Q12H PRN PRNQty: 10 0RF lactulose [Constulose] 10 gram/15 mL solution 20 g PO TID Qty: 1200 0RF magnesium oxide 400 mg magnesium tablet 400 mg PO DAILY Qty: 30 0RF pantoprazole 40 mg Tablet,Delayed Release (Dr/Ec) 40 mg PO BID oxybutynin chloride 5 mg Tablet 5 mg PO BID Qty: 60 0RF torsemide 20 mg tablet 40 mg PO DAILY Patient Comments: TAKE TWO TABLETS BY MOUTH EVERY DAY fluoxetine 40 mg capsule 40 mg PO DAILY ondansetron HCl 4 mg tablet 4 mg PO DAILY PRN Patient Comments: TAKE ONE TABLET BY MOUTH EVERY DAY NEEDED FOR NAUSEA glipizide 5 mg tablet 5 mg PO DAILY amlodipine 5 mg tablet 5 mg PO DAILY Jardiance 10 mg tablet 10 mg PO DAILY potassium chloride 20 mEq tablet extended release 20 meq PO DAILY Rx Instructions: with meals HPI General Date/Time Provider Initiated Documentation: 09/13/25 13:24. Limitations to Documentation: no limitations. Information obtained by: patient. HPI Narrative: HISTORY OF PRESENT ILLNESS This is a 70-year-old female with a history of multiple medical problems including congestive heart failure presenting by EMS with shortness of breath and unintentional weight gain of 22 pounds over the last few weeks. She reports experiencing intermittent episodes of dyspnea today, which prompted her to seek emergency medical attention. She was able to ambulate briskly to the ambulance without assistance. She has a known diagnosis of congestive heart failure, characterized by fluid retention, and has noted significant edema over the past two weeks. Despite being on torsemide, she reports no improvement in her symptoms. She is not experiencing any chest pain or fever but does report back pain. She also reports a persistent dry cough. Related Data Home Medications Medication Instructions Recorded Confirmed metformin 1,000 mg tablet 1,000 mg PO BID 11/09/22 09/13/25 ropinirole 2 mg tablet 2 mg PO TID 11/09/22 09/13/25 pantoprazole 40 mg tablet,delayed 40 mg PO BID 12/15/22 09/13/25 release nystatin 100,000 unit/gram topical 6,000,000 unit topical TID #60 02/05/23 09/13/25 powder grams oxybutynin chloride 5 mg tablet 5 mg PO BID #60 tabs 11/13/23 09/13/25 torsemide 20 mg tablet 40 mg PO DAILY 01/23/24 09/13/25 fluoxetine 40 mg capsule 40 mg PO DAILY 01/24/24 09/13/25 ondansetron HCl 4 mg tablet 4 mg PO DAILY PRN 04/16/24 09/13/25 doxepin 10 mg capsule 30 mg PO QHS 10/24/24 09/13/25 oxycodone 5 mg tablet 5 mg PO Q6H PRN 01/11/25 09/13/25 amlodipine 5 mg tablet 5 mg PO DAILY 03/21/25 09/13/25 empagliflozin 10 mg tablet 10 mg PO DAILY 03/21/25 09/13/25 (Jardiance) glipizide 5 mg tablet 5 mg PO DAILY 03/21/25 09/13/25 potassium chloride 20 mEq 20 meq PO DAILY 03/21/25 09/13/25 tablet,extended release acetaminophen 325 mg tablet 650 mg (2 x 325 mg) PO Q12H PRN 07/13/25 09/13/25 PRN #10 tabs lactulose 10 gram/15 mL oral 20 g (30 mL) PO TID #1,200 mL 07/13/25 09/13/25 solution (Constulose) magnesium oxide 400 mg PO DAILY #30 tabs 07/13/25 09/13/25 Previous Rx's Medication Instructions Recorded nystatin 100,000 unit/gram topical 6,000,000 unit topical TID #60 02/05/23 powder grams oxybutynin chloride 5 mg tablet 5 mg PO BID #60 tabs 11/13/23 acetaminophen 325 mg tablet 650 mg (2 x 325 mg) PO Q12H PRN 07/13/25 PRN #10 tabs lactulose 10 gram/15 mL oral 20 g (30 mL) PO TID #1,200 mL 07/13/25 solution (Constulose) magnesium oxide 400 mg PO DAILY #30 tabs 07/13/25 Allergies Allergy/AdvReac Type Severity Reaction Status Date / Time Penicillins Allergy Severe Swelling/Ed Verified 09/13/25 13:07 sophie tramadol Allergy Severe Swelling/Ed Verified 09/13/25 13:07 sophie apricot Allergy Intermediate Hives Verified 09/13/25 13:07 ferrous sulfate Allergy Unknown Other (See Verified 09/13/25 13:07 Comment) raspberry Allergy Other (See Verified 09/13/25 13:07 Comment) pineapple AdvReac Intermediate Topical Verified 09/13/25 13:07 Irritation vancomycin AdvReac Intermediate Other (See Verified 09/13/25 13:07 Comment) General Stated Complaint: SOB CHELA: 3 Review of Systems Constitutional Constitutional: Denies fever(s) Cardiovascular Cardiovascular: Denies chest pain Respiratory Respiratory: Reports as per HPI Gastrointestinal Gastrointestinal: Denies melena Comments: Recent loose stool, no bright red blood per rectum Exam Const General: cooperative and no acute distress HENMT Mouth: moist mucous membranes Eyes Conjunctivae: normal conjunctivae Sclera: normal sclerae Resp Auscultation: clear to auscultation bilaterally, no rales, no rhonchi and no wheezes Cardio Rate: regular rate and not tachycardic Rhythm: regular rhythm Heart Sounds: murmur systolic III/ GI Palpation: soft, not firm, no guarding, no masses, not rigid and nontender Skin General skin exam: no rashes or lesions noted Neuro General: patient alert, patient awake and tone normal Extrem General: edema Laterality: bilateral (1+ shins) Psych Appearance: grossly normal Mental Status: mental status grossly normal Course Vital Signs Vital signs: Vital Signs Temperature 36.7 C 09/13/25 13:03 Pulse 97 H 09/13/25 13:03 Respiratory Rate 16 09/13/25 13:03 Blood Pressure 156/41 H 09/13/25 13:03 Pulse Oximetry 94 09/13/25 13:03 Temperature 36.7 C 09/13/25 13:03 Temperature Source Oral 09/13/25 13:03 Pulse 97 H 09/13/25 13:03 Respiratory Rate 16 09/13/25 13:03 Blood Pressure 156/41 H 09/13/25 13:03 Pulse Oximetry 94 09/13/25 13:03 Oxygen Delivery Method Room Air 09/13/25 13:03 Oxygen Flow Rate 0 09/13/25 13:03 Lab/Test Results Lab/Test Results: Laboratory Tests Range/Units 09/13/25 09/13/25 13:40 13:43 WBC (4.4-10.8) 10^3/uL 3.89 L RBC (3.93-5.22) 10^6/uL 2.77 L Hgb (11.2-15.7) g/dL 6.3 L* Hct (36.0-46.0) % 22.8 L MCV (80-95) fL 82 MCH (27.0-33.0) pg 22.7 L MCHC (32.0-36.0) % 27.6 L RDW (11.7-14.6) % 18.4 H Plt Count (130-400) 10^3/uL 106 L MPV (8.0-11.0) fL 10.4 Immature Gran % % 0.3 Neutrophils % % 60.1 Lymphocytes % % 18.0 Monocytes % % 14.1 Eosinophils % % 6.7 Basophils % % 0.8 Nucleated RBC % (0.0-0.3) % 0.0 Absolute Neutrophils (1.2-6.7) 10^3/uL 2.34 Absolute Lymphocytes (1.2-3.4) 10^3/uL 0.70 L Absolute Monocytes (0.1-0.8) 10^3/uL 0.55 Absolute Eosinophils (0.0-0.7) 10^3/uL 0.26 Absolute Basophils (0.0-0.2) 10^3/uL 0.03 RBC Morphology See Below Hypochromasia 2+ Microcytosis 1+ Sodium (136-145) mmol/L 139 Potassium (3.5-5.1) mmol/L 3.6 Chloride (98-107) mmol/L 105 Carbon Dioxide (21.0-32.0) mmol/L 29.4 Anion Gap (3-11) mmol/L 4.6 BUN (7-18) mg/dL 27 H Creatinine (0.55-1.02) mg/dL 0.9 Est GFR (CKD-EPI 2020) (mL/min/1.73m2) 68.77 Glucose (74-106) mg/dL 343 H Calcium (8.5-10.1) mg/dL 8.1 L Magnesium (1.8-2.4) mg/dL 2.0 Total Bilirubin (0.2-1.0) mg/dL 0.7 AST (15-37) U/L 25 ALT (14-59) U/L 22 Alkaline Phosphatase (46-116) U/L 260 H Ammonia (11-32) umol/L 65 H Troponin I (<or=51) ng/L 22 NT-Pro-B Natriuret Pep (<300) pg/mL 99 Total Protein (6.4-8.2) g/dL 5.7 L Albumin (3.4-5.0) g/dL 2.1 L COVID-19 Source Nasopharynx SARS-CoV-2 (PCR) (Negative) Negative Influenza Type A (PCR) (Negative) Negative Influenza Type B (PCR) (Negative) Negative RSV (PCR) (Negative) Negative Medical Decision Making ASSESSMENT AND PLAN Initial Assessment: 70-year-old female with multiple medical problems including history of diabetes hypertension, CHF, SLACIDO, hepatic encephalopathy, Crohn's disease, presenting with shortness of breath and unintentional weight gain of 22 pounds over the last few weeks. Currently on torsemide 40 mg twice daily, which appears ineffective. Patient also has history of anemia associated with GI source. Patient is hemodynamically stable. Patient saturating well in no respiratory distress. Differential Diagnosis: - Acute congestive heart failure exacerbation - COVID - Anemia ED Course: - IV line established - Chest x-ray performed. Chest x-ray interpreted by radiology: Cardiomegaly again noted. Mediastinum not widened. Prominent right hilum again noted. There are multiple increased markings in the lungs probably an element pulmonary venous hypertension. Also possible tiny noncalcified nodular densities in the lungs. There are no pleural effusions. - Labs reviewed: Normal BNP. Initial troponin 22. Plan to trend. Ammonia level is elevated, this has been elevated in the past. Hemoglobin is low at 6.3. This has been low in the past. I suspect presentation related to symptomatic anemia. Plan to give blood transfusion. - Plan for hospitalization. I called and spoke with Dr. Cui, discussed ED presentation and course, she will admit the patient. Clinical Impression: - Symptomatic anemia Disposition: Admit This document was written with the assistance of DIANNE Nath. The patient consented to its use. Lab Data Lab results reviewed: Yes I reviewed the patient's lab results. Labs: Laboratory Tests Range/Units 09/13/25 09/13/25 09/13/25 13:40 13:43 15:35 WBC (4.4-10.8) 10^3/uL 3.89 L RBC (3.93-5.22) 10^6/uL 2.77 L Hgb (11.2-15.7) g/dL 6.3 L* Hct (36.0-46.0) % 22.8 L MCV (80-95) fL 82 MCH (27.0-33.0) pg 22.7 L MCHC (32.0-36.0) % 27.6 L RDW (11.7-14.6) % 18.4 H Plt Count (130-400) 10^3/uL 106 L MPV (8.0-11.0) fL 10.4 Immature Gran % % 0.3 Neutrophils % % 60.1 Lymphocytes % % 18.0 Monocytes % % 14.1 Eosinophils % % 6.7 Basophils % % 0.8 Nucleated RBC % (0.0-0.3) % 0.0 Absolute Neutrophils (1.2-6.7) 10^3/uL 2.34 Absolute Lymphocytes (1.2-3.4) 10^3/uL 0.70 L Absolute Monocytes (0.1-0.8) 10^3/uL 0.55 Absolute Eosinophils (0.0-0.7) 10^3/uL 0.26 Absolute Basophils (0.0-0.2) 10^3/uL 0.03 RBC Morphology See Below Hypochromasia 2+ Microcytosis 1+ Sodium (136-145) mmol/L 139 Potassium (3.5-5.1) mmol/L 3.6 Chloride (98-107) mmol/L 105 Carbon Dioxide (21.0-32.0) mmol/L 29.4 Anion Gap (3-11) mmol/L 4.6 BUN (7-18) mg/dL 27 H Creatinine (0.55-1.02) mg/dL 0.9 Est GFR (CKD-EPI 2020) (mL/min/1.73m2) 68.77 Glucose (74-106) mg/dL 343 H Calcium (8.5-10.1) mg/dL 8.1 L Magnesium (1.8-2.4) mg/dL 2.0 Total Bilirubin (0.2-1.0) mg/dL 0.7 AST (15-37) U/L 25 ALT (14-59) U/L 22 Alkaline Phosphatase (46-116) U/L 260 H Ammonia (11-32) umol/L 65 H Troponin I (<or=51) ng/L 22 23 NT-Pro-B Natriuret Pep (<300) pg/mL 99 Total Protein (6.4-8.2) g/dL 5.7 L Albumin (3.4-5.0) g/dL 2.1 L COVID-19 Source Nasopharynx SARS-CoV-2 (PCR) (Negative) Negative Influenza Type A (PCR) (Negative) Negative Influenza Type B (PCR) (Negative) Negative RSV (PCR) (Negative) Negative Crossmatch Range/Units 09/13/25 15:51 WBC (4.4-10.8) 10^3/uL RBC (3.93-5.22) 10^6/uL Hgb (11.2-15.7) g/dL Hct (36.0-46.0) % MCV (80-95) fL MCH (27.0-33.0) pg MCHC (32.0-36.0) % RDW (11.7-14.6) % Plt Count (130-400) 10^3/uL MPV (8.0-11.0) fL Immature Gran % % Neutrophils % % Lymphocytes % % Monocytes % % Eosinophils % % Basophils % % Nucleated RBC % (0.0-0.3) % Absolute Neutrophils (1.2-6.7) 10^3/uL Absolute Lymphocytes (1.2-3.4) 10^3/uL Absolute Monocytes (0.1-0.8) 10^3/uL Absolute Eosinophils (0.0-0.7) 10^3/uL Absolute Basophils (0.0-0.2) 10^3/uL RBC Morphology Hypochromasia Microcytosis Sodium (136-145) mmol/L Potassium (3.5-5.1) mmol/L Chloride (98-107) mmol/L Carbon Dioxide (21.0-32.0) mmol/L Anion Gap (3-11) mmol/L BUN (7-18) mg/dL Creatinine (0.55-1.02) mg/dL Est GFR (CKD-EPI 2020) (mL/min/1.73m2) Glucose (74-106) mg/dL Calcium (8.5-10.1) mg/dL Magnesium (1.8-2.4) mg/dL Total Bilirubin (0.2-1.0) mg/dL AST (15-37) U/L ALT (14-59) U/L Alkaline Phosphatase (46-116) U/L Ammonia (11-32) umol/L Troponin I (<or=51) ng/L NT-Pro-B Natriuret Pep (<300) pg/mL Total Protein (6.4-8.2) g/dL Albumin (3.4-5.0) g/dL COVID-19 Source SARS-CoV-2 (PCR) (Negative) Influenza Type A (PCR) (Negative) Influenza Type B (PCR) (Negative) RSV (PCR) (Negative) Crossmatch See Detail Quality:SDOH Health Related Social Needs: Health related social needs risk of homeless house/econ circumstance daily activities Health related social needs details w ADLs PFSH All Active Problems (Updated 09/13/25 @ 16:24 by Daniel Craft MD) GERD (gastroesophageal reflux disease) (Chronic) Anemia (Chronic) Community acquired pneumonia (Acute) Sepsis (Acute) Bacteremia due to Klebsiella pneumoniae (Acute) Acute coronary syndrome with high troponin (Acute) Sepsis due to Gram-negative organism with septic shock (Acute) 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) Medical History Anemia UTI (urinary tract infection) Type 2 diabetes mellitus Hypovolemia Hyperammonemia 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 Left clavicle Excess skin of eyelid Pituitary cyst Hypersomnia GAVE (gastric antral vascular ectasia) JAYDEN (obstructive sleep apnea) Acquired arteriovenous malformation Atypical angina Biliary dyskinesia Lung nodule Submucosal neoplasm of stomach Anemia Dermoid cyst History of peptic ulcer disease Osteoarthritis Pancreatitis Hypertensive disorder Hepatic encephalopathy Edema Atrophy of vagina Atrophic vaginitis Actinic keratosis Pituitary adenoma Restless legs Neoplasm of parotid gland Lumbar spondylosis Lesion of esophagus Dyslipidemia Depressive disorder Crohn's disease Chronic low back pain Anxiety Anemia Cirrhosis SALCIDO (nonalcoholic steatohepatitis) CHF (congestive heart failure) Anasarca Surgical History History of oophorectomy, unilateral History of rotator cuff surgery bilateral History of total knee arthroplasty bilateral History of sleeve gastrectomy History of hysterectomy Family History Brother Cancer Lung Alcohol use disorder 2 older brothers Social History Smoking/Tobacco Use Status: Never Smoking risk assessment performed?: Yes Alcohol Intake: never Drug use: Never Substance use type: does not use Housing: house Current gender identity: female Do you feel safe at home: Yes Do you feel safe in your relationship?: Yes Additional Social history: Lives with Arslan, and son in [place]. Moved from [place] in 2020. Has a dog and 8 pet birds. POCUS Exam (ED) Limited Thoracic Lung Exam DATE OF EXAM: 09/13/25 TIME OF EXAM: 16:21 PROVIDER THAT PERFORMED THE STUDY: Daniel Craft REASON FOR EXAM: Shortness ofBreath VISUALIZED STRUCTURES: right anterior, left anterior, right lateral and left lateral PERTINENT FINDINGS/IMPRESSION: no B-Lines/left side, no B-lines/left side and no pneumothorax Exam complete
[2025-09-13 16:12] LABS: Troponin I 23 ng/L (<or=51)
--- NOTE | 2025-09-13 16:25 | W.PM.HP.N ---
Date of service: 09/13/25 Time of Service: 16:00 Assessment and Plan Assessment and plan (1) Acute on chronic blood loss anemia: Status: Acute Assessment and plan: Reported submucosal neoplasm Patient is to have [place]er[place] [facility] [place] the [place] Presenting with hemoglobin 6.3 Pancytopenia without concordant fall in WBC, RBC, PLT, due to liver disease PRBC 1u transfusing in ED Repeat H&H at 20:00 tonight VTE chemoprophylaxis contraindicated due to active bleed Admitting under observation status. Likely 1-2 night stay. No intervention planned as patient has procedure scheduled at [facility] (2) GERD (gastroesophageal reflux disease): Status: Chronic Assessment and plan: Continue PPI (3) Liver cirrhosis secondary to SALCIDO: Status: Chronic Assessment and plan: Continue home lactulose (4) Restless legs: Assessment and plan: Continue home ropinirole (5) JAYDEN (obstructive sleep apnea): Assessment and plan: Continue home CPAP (6) Type 2 diabetes mellitus: Assessment and plan: Last known A1C 6.4 in May 2024, will check with morning labs Home regimen empagliflozin, glipizide, metformin, will continue (7) CHF (congestive heart failure): Assessment and plan: Last echo 2022 with EF 60% Will get repeat echo if available in the morning History of Present Illness History of Present Illness Chief Complaint: SOB, weight gain Narrative: Eli Meade is a 70 year old woman presenting September 13 with shortness of breath and reported unintentional weight gain of 22 lbs. She reports a dry cough that started the day before arrival. She feels that her legs are as big as they've ever been and that she is concerned about her heart failure. She reports that the weight gain and SOB made her suspect that her torsemide were not working. She has a known gastric bleed; she was hospitalized in July for blood loss anemia. She has a scheduled cauterization at [facility] [place] near future. She denies chest pain, abdominal pain, N/V/D. In the ED, she was mildly tachycardic HR 97, mildly hypertensive 156/41. Vitals otherwise unremarkable. EKG without evidence of occlusion or arrhythmia. CXR with previously seen cardiomegaly, and possible pulmonary venous congestion. CBC with pancytopenia, notably hemoglobin 6.3, PLT 106. Serum glucose 343. Serum ammonia 65, chronic. Blood transfusion of PRBC 1u was initiated in the ED. 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) Medical History Anemia UTI (urinary tract infection) Type 2 diabetes mellitus Hypovolemia Hyperammonemia 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 Left clavicle Excess skin of eyelid Pituitary cyst Hypersomnia GAVE (gastric antral vascular ectasia) JAYDEN (obstructive sleep apnea) Acquired arteriovenous malformation Atypical angina Biliary dyskinesia Lung nodule Submucosal neoplasm of stomach Anemia Dermoid cyst History of peptic ulcer disease Osteoarthritis Pancreatitis Hypertensive disorder Hepatic encephalopathy Edema Atrophy of vagina Atrophic vaginitis Actinic keratosis Pituitary adenoma Restless legs Neoplasm of parotid gland Lumbar spondylosis Lesion of esophagus Dyslipidemia Depressive disorder Crohn's disease Chronic low back pain Anxiety Anemia Cirrhosis SALCIDO (nonalcoholic steatohepatitis) CHF (congestive heart failure) Anasarca Surgical History History of oophorectomy, unilateral History of rotator cuff surgery bilateral History of total knee arthroplasty bilateral History of sleeve gastrectomy History of hysterectomy Family History Brother Cancer Lung Alcohol use disorder 2 older brothers Social History Smoking/Tobacco Use Status: Never Smoking risk assessment performed?: Yes Alcohol Intake: never Drug use: Never Substance use type: does not use Housing: house Current gender identity: female Do you feel safe at home: Yes Do you feel safe in your relationship?: Yes Additional Social history: Lives with Arslan, and son in [place]. Moved from [place] in 2019. Has a dog and 8 pet birds. Meds Allergies and Home Medications Allergies Allergy/AdvReac Type Severity Reaction Status Date / Time Penicillins Allergy Severe Swelling/Ed Verified 09/13/25 13:07 sophie tramadol Allergy Severe Swelling/Ed Verified 09/13/25 13:07 sophie apricot Allergy Intermediate Hives Verified 09/13/25 13:07 ferrous sulfate Allergy Unknown Other (See Verified 09/13/25 13:07 Comment) raspberry Allergy Other (See Verified 09/13/25 13:07 Comment) pineapple AdvReac Intermediate Topical Verified 09/13/25 13:07 Irritation vancomycin AdvReac Intermediate Other (See Verified 09/13/25 13:07 Comment) Home Medications Medication Instructions Recorded Confirmed Type metformin 1,000 mg tablet 1,000 mg PO BID 11/09/22 09/13/25 History ropinirole 2 mg tablet 2 mg PO TID 11/09/22 09/13/25 History pantoprazole 40 mg tablet,delayed 40 mg PO BID 12/15/22 09/13/25 History release nystatin 100,000 unit/gram topical 6,000,000 unit topical TID #60 02/05/23 09/13/25 Rx powder grams oxybutynin chloride 5 mg tablet 5 mg PO BID #60 tabs 11/13/23 09/13/25 Rx torsemide 20 mg tablet 40 mg PO DAILY 01/23/24 09/13/25 History fluoxetine 40 mg capsule 40 mg PO DAILY 01/24/24 09/13/25 History ondansetron HCl 4 mg tablet 4 mg PO DAILY PRN 04/16/24 09/13/25 History doxepin 10 mg capsule 30 mg PO QHS 10/24/24 09/13/25 History oxycodone 5 mg tablet 5 mg PO Q6H PRN 01/11/25 09/13/25 History amlodipine 5 mg tablet 5 mg PO DAILY 03/21/25 09/13/25 History empagliflozin 10 mg tablet 10 mg PO DAILY 03/21/25 09/13/25 History (Jardiance) glipizide 5 mg tablet 5 mg PO DAILY 03/21/25 09/13/25 History potassium chloride 20 mEq 20 meq PO DAILY 03/21/25 09/13/25 History tablet,extended release acetaminophen 325 mg tablet 650 mg (2 x 325 mg) PO Q12H PRN 07/13/25 09/13/25 Rx PRN #10 tabs lactulose 10 gram/15 mL oral 20 g (30 mL) PO TID #1,200 mL 07/13/25 09/13/25 Rx solution (Constulose) magnesium oxide 400 mg PO DAILY #30 tabs 07/13/25 09/13/25 Rx Exam Narrative Exam Narrative: General: This is a pleasant, fatigued-appearing woman in no distress HEENT: Normocephalic, atraumatic CV: RRR, BLE 1+ pitting edema Resp: CTAB Abd: soft, NTND MSK: voluntary motion x4 Neuro: awake, alert, no focal deficits Results Labs 09/13/25 13:40 09/13/25 13:40 Labs: Laboratory Results - last 24 hr 09/13/25 09/13/25 09/13/25 13:40 13:43 15:35 WBC 3.89 L RBC 2.77 L Hgb 6.3 L* Hct 22.8 L MCV 82 MCH 22.7 L MCHC 27.6 L RDW 18.4 H Plt Count 106 L MPV 10.4 Immature Gran % 0.3 Neutrophils % 60.1 Lymphocytes % 18.0 Monocytes % 14.1 Eosinophils % 6.7 Basophils % 0.8 Nucleated RBC % 0.0 Absolute Neutrophils 2.34 Absolute Lymphocytes 0.70 L Absolute Monocytes 0.55 Absolute Eosinophils 0.26 Absolute Basophils 0.03 RBC Morphology See Below Hypochromasia 2+ Microcytosis 1+ Sodium 139 Potassium 3.6 Chloride 105 Carbon Dioxide 29.4 Anion Gap 4.6 BUN 27 H Creatinine 0.9 Est GFR (CKD-EPI 2020) 68.77 Glucose 343 H Calcium 8.1 L Magnesium 2.0 Total Bilirubin 0.7 AST 25 ALT 22 Alkaline Phosphatase 260 H Ammonia 65 H Troponin I 22 23 NT-Pro-B Natriuret Pep 99 Total Protein 5.7 L Albumin 2.1 L COVID-19 Source Nasopharynx SARS-CoV-2 (PCR) Negative Influenza Type A (PCR) Negative Influenza Type B (PCR) Negative RSV (PCR) Negative Crossmatch 09/13/25 15:51 WBC RBC Hgb Hct MCV MCH MCHC RDW Plt Count MPV Immature Gran % Neutrophils % Lymphocytes % Monocytes % Eosinophils % Basophils % Nucleated RBC % Absolute Neutrophils Absolute Lymphocytes Absolute Monocytes Absolute Eosinophils Absolute Basophils RBC Morphology Hypochromasia Microcytosis Sodium Potassium Chloride Carbon Dioxide Anion Gap BUN Creatinine Est GFR (CKD-EPI 2020) Glucose Calcium Magnesium Total Bilirubin AST ALT Alkaline Phosphatase Ammonia Troponin I NT-Pro-B Natriuret Pep Total Protein Albumin COVID-19 Source SARS-CoV-2 (PCR) Influenza Type A (PCR) Influenza Type B (PCR) RSV (PCR) Crossmatch See Detail Last Vital Signs Temp 36.7 C 09/13/25 13:03 Pulse 97 H 09/13/25 13:03 Resp 16 09/13/25 13:03 BP 156/41 H 09/13/25 13:03 Pulse Ox 94 09/13/25 13:03 Time Spent Time spent with Patient: 40-54 minutes Time was spent: preparing to see the patient(eg.review tests), obtaining and/or reviewing separately otained hiistory, ordering medications,tests, procedures, referring, communicating with other health child care supervisor, indepentently interpreting results, counseling the patient and care coordination
--- NOTE | 2025-09-13 18:25 | W.PC.ACHO ---
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 Excess skin of eyelid Pituitary cyst Hypersomnia GAVE (gastric antral vascular ectasia) JAYDEN (obstructive sleep apnea) Acquired arteriovenous malformation Atypical angina Biliary dyskinesia Lung nodule Submucosal neoplasm of stomach Anemia Dermoid cyst History of peptic ulcer disease Osteoarthritis Pancreatitis Hypertensive disorder Hepatic encephalopathy Edema Atrophy of vagina Atrophic vaginitis Actinic keratosis Pituitary adenoma Restless legs Neoplasm of parotid gland Lumbar spondylosis Lesion of esophagus Dyslipidemia Depressive disorder Crohn's disease Chronic low back pain Anxiety Anemia Cirrhosis SALCIDO (nonalcoholic steatohepatitis) CHF (congestive heart failure) Anasarca (Last Reviewed 07/11/25 @ 05:05 by Devin Carlson) History of oophorectomy, unilateral History of rotator cuff surgery History of total knee arthroplasty History of sleeve gastrectomy History of hysterectomy Most Recent Vital Signs Temperature 36.6 C 09/13/25 18:15 Temperature Source Temporal Artery Scan 09/13/25 18:15 Pulse 87 09/13/25 18:15 Respiratory Rate 16 09/13/25 18:15 Respiratory Effort Non-Labored 09/13/25 17:55 Respiratory Depth Normal 09/13/25 17:55 Respiratory Pattern Normal 09/13/25 17:55 Blood Pressure 147/46 H 09/13/25 18:15 Blood Pressure Mean 79 09/13/25 18:15 Pulse Oximetry 96 09/13/25 18:15 Oxygen Delivery Method Room Air 09/13/25 18:15 Oxygen Flow Rate 0 09/13/25 18:15 Allergies Penicillins Allergy (Severe, Verified 09/13/25 13:07) Swelling/Edema tramadol Allergy (Severe, Verified 09/13/25 13:07) Swelling/Edema apricot Allergy (Intermediate, Verified 09/13/25 13:07) Hives apricots, fruit. ferrous sulfate Allergy (Unknown, Verified 09/13/25 13:07) Other (See Comment) raspberry Allergy (Verified 09/13/25 13:07) Other (See Comment) pineapple Adverse Reaction (Intermediate, Verified 09/13/25 13:07) Topical Irritation vancomycin Adverse Reaction (Intermediate, Verified 09/13/25 13:07) Other (See Comment) Red Man Syndrome Precautions Isolation Standard precaution 09/13/25 17:51 Diet Orders Category Date Time Status Diabetes Consistent CHO [DIET] Nutrition 09/13/25 Dinner Active Diagnostics 09/13/25 09/13/25 09/13/25 Range/Units 16:33 15:51 15:35 WBC (4.4-10.8) 10^3/uL RBC (3.93-5.22) 10^6/uL Hgb (11.2-15.7) g/dL Hct (36.0-46.0) % MCV (80-95) fL MCH (27.0-33.0) pg MCHC (32.0-36.0) % RDW (11.7-14.6) % Plt Count (130-400) 10^3/uL MPV (8.0-11.0) fL Immature Gran % % Neutrophils % % Lymphocytes % % Monocytes % % Eosinophils % % Basophils % % Nucleated RBC % (0.0-0.3) % Absolute Neutrophils (1.2-6.7) 10^3/uL Absolute Lymphocytes (1.2-3.4) 10^3/uL Absolute Monocytes (0.1-0.8) 10^3/uL Absolute Eosinophils (0.0-0.7) 10^3/uL Absolute Basophils (0.0-0.2) 10^3/uL RBC Morphology Hypochromasia Microcytosis Sodium (136-145) mmol/L Potassium (3.5-5.1) mmol/L Chloride (98-107) mmol/L Carbon Dioxide (21.0-32.0) mmol/L Anion Gap (3-11) mmol/L BUN (7-18) mg/dL Creatinine (0.55-1.02) mg/dL Est GFR (CKD-EPI 2020) (mL/min/1.73m2) Glucose (74-106) mg/dL Calcium (8.5-10.1) mg/dL Magnesium (1.8-2.4) mg/dL Total Bilirubin (0.2-1.0) mg/dL AST (15-37) U/L ALT (14-59) U/L Alkaline Phosphatase (46-116) U/L Ammonia (11-32) umol/L Troponin I Pending 23 (<or=51) ng/L NT-Pro-B Natriuret Pep (<300) pg/mL Total Protein (6.4-8.2) g/dL Albumin (3.4-5.0) g/dL COVID-19 Source SARS-CoV-2 (PCR) (Negative) Influenza Type A (PCR) (Negative) Influenza Type B (PCR) (Negative) RSV (PCR) (Negative) ABO/Rh O Positive Antibody Screen NEGATIVE Crossmatch See Detail 09/13/25 09/13/25 Range/Units 13:43 13:40 WBC 3.89 L (4.4-10.8) 10^3/uL RBC 2.77 L (3.93-5.22) 10^6/uL Hgb 6.3 L* (11.2-15.7) g/dL Hct 22.8 L (36.0-46.0) % MCV 82 (80-95) fL MCH 22.7 L (27.0-33.0) pg MCHC 27.6 L (32.0-36.0) % RDW 18.4 H (11.7-14.6) % Plt Count 106 L (130-400) 10^3/uL MPV 10.4 (8.0-11.0) fL Immature Gran % 0.3 % Neutrophils % 60.1 % Lymphocytes % 18.0 % Monocytes % 14.1 % Eosinophils % 6.7 % Basophils % 0.8 % Nucleated RBC % 0.0 (0.0-0.3) % Absolute Neutrophils 2.34 (1.2-6.7) 10^3/uL Absolute Lymphocytes 0.70 L (1.2-3.4) 10^3/uL Absolute Monocytes 0.55 (0.1-0.8) 10^3/uL Absolute Eosinophils 0.26 (0.0-0.7) 10^3/uL Absolute Basophils 0.03 (0.0-0.2) 10^3/uL RBC Morphology See Below Hypochromasia 2+ Microcytosis 1+ Sodium 139 (136-145) mmol/L Potassium 3.6 (3.5-5.1) mmol/L Chloride 105 (98-107) mmol/L Carbon Dioxide 29.4 (21.0-32.0) mmol/L Anion Gap 4.6 (3-11) mmol/L BUN 27 H (7-18) mg/dL Creatinine 0.9 (0.55-1.02) mg/dL Est GFR (CKD-EPI 2020) 68.77 (mL/min/1.73m2) Glucose 343 H (74-106) mg/dL Calcium 8.1 L (8.5-10.1) mg/dL Magnesium 2.0 (1.8-2.4) mg/dL Total Bilirubin 0.7 (0.2-1.0) mg/dL AST 25 (15-37) U/L ALT 22 (14-59) U/L Alkaline Phosphatase 260 H (46-116) U/L Ammonia 65 H (11-32) umol/L Troponin I 22 (<or=51) ng/L NT-Pro-B Natriuret Pep 99 (<300) pg/mL Total Protein 5.7 L (6.4-8.2) g/dL Albumin 2.1 L (3.4-5.0) g/dL COVID-19 Source Nasopharynx SARS-CoV-2 (PCR) Negative (Negative) Influenza Type A (PCR) Negative (Negative) Influenza Type B (PCR) Negative (Negative) RSV (PCR) Negative (Negative) ABO/Rh Antibody Screen Crossmatch Intake and Output - 24 Hour Total 09/13/25 12:47 thru 09/13/25 13:03 Weight 111.8 kg Falls Risk Assessment History of Falls Previous History 09/13/25 17:51 Contributing Factors Impairments 09/13/25 17:51 Ambulatory Aids Uses ambulatory device 09/13/25 17:51 Tubes/Lines W/no contributing factors 09/13/25 17:51 Gait Evaluation W/no contributing factors 09/13/25 17:51 Fall Total Score 53 09/13/25 17:51 Level of Risk High Risk 09/13/25 17:51 Problems (Last Reviewed 07/11/25 @ 05:05 by Devin Carlson) Acute on chronic blood loss anemia (Acute) GERD (gastroesophageal reflux disease) (Chronic) 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 c/o SOB and weakness VS WNL, Hgb 6.3, will transuce PRBCs ALEX Lloyd
[2025-09-13] MEDS: metFORMIN 500 MG TAB 1000 MG PO (18:27)
[2025-09-13 19:20] LABS: Troponin I 24 ng/L (<or=51)
[2025-09-13] MEDS: Pantoprazole 40 MG TABCR PO (19:26)
[2025-09-13] MEDS: rOPINIRole 1 MG TAB 2 MG PO (19:26)
[2025-09-13] MEDS: Oxybutynin 5 MG TAB PO (19:26)
[2025-09-13] MEDS: Doxepin 10 MG CAP 20 MG PO (19:26)
[2025-09-13] MEDS: Normal Saline Flush 10 ML SYR IVP (19:27)
[2025-09-13] MEDS: oxyCODONE 5 MG TAB PO (20:52)
[2025-09-13 22:17] LABS: HCT 24.0 % (36.0-46.0); HGB 7.1 g/dL (11.2-15.7)
[2025-09-14 02:35] VITALS: BP 121/87; PULSE 86; RESP 20; TEMP 36.6; O2SAT 96
[2025-09-14 06:51] LABS: Abs Immature Grans 0.01 10^3/uL (0.0-0.06); HCT 26.0 % (36.0-46.0); HGB 7.6 g/dL (11.2-15.7); Immature Grans % 0.2 %; MCH 22.8 pg (27.0-33.0); MCHC 29.2 % (32.0-36.0); MCV 78 fL (80-95); MPV 10.2 fL (8.0-11.0); Platelet Count 100 10^3/uL (130-400); RBC 3.34 10^6/uL (3.93-5.22); RDW 17.8 % (11.7-14.6); RDW-SD 50.3 fL; WBC 4.51 10^3/uL (4.4-10.8)
[2025-09-14 07:19] LABS: Hemoglobin A1C 7.7 % (<5.7)
[2025-09-14 07:26] LABS: ALT 22 U/L (14-59); AST 31 U/L (15-37); Albumin 2.3 g/dL (3.4-5.0); Alkaline Phosphatase 225 U/L (46-116); Anion Gap 6.6 mmol/L (3-11); BUN 24 mg/dL (7-18); Bilirubin, Total 1.7 mg/dL (0.2-1.0); CO2 29.4 mmol/L (21.0-32.0); Calcium 8.4 mg/dL (8.5-10.1); Chloride 106 mmol/L (98-107); Glucose 208 mg/dL (74-106); Magnesium 2.0 mg/dL (1.8-2.4); Potassium 3.9 mmol/L (3.5-5.1); Sodium 142 mmol/L (136-145); Total Protein 6.0 g/dL (6.4-8.2)
[2025-09-14 07:48] VITALS: BP 124/43; PULSE 83; RESP 20; TEMP 36.5; O2SAT 93
[2025-09-14] MEDS: Normal Saline Flush 10 ML SYR IVP ×3 (07:52→20:52)
[2025-09-14] MEDS: Lactulose 20 GM/30 ML CUP PO ×2 (07:52→14:33)
[2025-09-14] MEDS: metFORMIN 500 MG TAB 1000 MG PO ×2 (07:53→16:55)
[2025-09-14] MEDS: rOPINIRole 1 MG TAB 2 MG PO ×3 (07:53→20:51)
[2025-09-14] MEDS: Torsemide 20 MG TAB 40 MG PO ×2 (07:54→11:20)
[2025-09-14] MEDS: Pantoprazole 40 MG TABCR PO ×2 (07:54→20:51)
[2025-09-14] MEDS: Oxybutynin 5 MG TAB PO ×2 (07:54→20:51)
[2025-09-14] MEDS: glipiZIDE 5 MG TAB PO (07:55)
[2025-09-14] MEDS: FLUoxetine 20 MG CAP 40 MG PO (07:55)
[2025-09-14] MEDS: Empaglifozin 10 MG TAB PO (07:56)
--- NOTE | 2025-09-14 10:23 | INITIAL_ITS ---
Date of service: 09/14/25 Time of Service: 10:23 Care Management Initial Assmt Initial Assessment Reason for Hospitalization: anemia Functional Status/Living Situation Patient Presentation: Re was sitting up in bed when CM met with her. She readily engaged with CM, well known to her from many prior hospitalizations. Re has chronic anemia and was admitted with a Hgb of 6.3. She received one unit of blood yesterday and her Hgb is now 7.1 and 7.6 on repeat testing. Re informed that she anticipates being discharged home tomorrow as long as there is no further evidence of bleeding. Re lives in a single family home in [place] with her son Isra. Her lives at [facility]. Her son recently became engaged and his mary ann and her 2 sons have moved into the home. Re shared that she is trying to adjust to the changes as it has been a long time since there were young children in the home. Town of Residence: [place] Resides with: Child (son Isra lives with her) Significant Other/Family: Local Natural Supports: sister in [place] and son Isra Employment Status: Retired Instrumental Activities of Daily Living (ADLs): Independent Medications Medication Management: No Issues/Barriers identified Physical Functioning/Mobility Assistive Device: walker Advance Directives Advance Directives: Do you have an Advance Directive: Y , 06:55 AD On File at [facility]: Y 07/13/25, 06:55 Date Asked 07/31/25 07/31/25, 21:46 AD Date Reviewed 09/13/25 Today, 03:18 COLST On File at [facility] Yes 07/13/25, 06:55 COLST Date Scanned 07/13/25 07/13/25, 06:55 Code Status Resuscitation Status DNR Insurance Coverage/Financial Issues Insurance: BC/BS Medicare Advantage Care Team Visit Care Team Role Provider Type Jefe Coffey Primary Care Provider NON-[facility] STAFF PHYSICIAN Daniel Craft MD Emergency Provider [facility] STAFF PHYSICIAN Alejandro Cui MD Admit Provider [facility] STAFF PHYSICIAN Attending Provider Discharge Potential Discharge Needs: PCP F/U Appt Anticipated Barriers to Discharge: None Identified Patient/Family Education Needs: Review discharge instructions, discuss Ask Me Three Transportation: Private vehicle Plan: Anticipate Re will be discharged home, possibly with new home health services, when medically cleared. She will follow up with her PCP and plan of care and transport with her son. CM will follow and continue to assess for discharge concerns. Social Determinants of Health Screening Social Determinants of health last assessed in clinic: 09/14/25 Will the Patient Participate in the Screening?: Yes Do you worry about having a steady place to live?: no Problems where you live: no known problems In the past 12 months, have you had to go without electric, gas, oil or water in your home?: no 1. Within the past 12 months, we worried whether our food would run out before we got money to buy more.: Never true 2. Within the past 12 months, the food we bought just didn't last and we didn't have money to get more.: Never true Has lack of transportation kept you from medical appointments or from doing things needed for daily living?: no Has anyone in your life made you feel unsafe or unsupported?: no How hard is it for you to pay for the very basics like food, housing, medical care, and heating? Would you say it is:: Not hard at all Do you want help finding or keeping work or a job?: I do not need or want help If for any reason you need help with day-to-day activities such as bathing, preparing meals, shopping, managing finances, etc., do you get the help you need?: I don’t need any help How often do you feel lonely or isolated from those around you?: Never Do you speak a language other than Azeri at home?: No Health Related Social Needs Health related social needs details: no needs PFSH All Active Problems (Updated 09/13/25 @ 17:39 by Alejandro Cui MD) Acute on chronic blood loss anemia (Acute) GERD (gastroesophageal reflux disease) (Chronic) Anemia (Chronic) Community acquired pneumonia (Acute) Sepsis (Acute) Bacteremia due to Klebsiella pneumoniae (Acute) Acute coronary syndrome with high troponin (Acute) Sepsis due to Gram-negative organism with septic shock (Acute) 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) Medical History Anemia UTI (urinary tract infection) Type 2 diabetes mellitus Hypovolemia Hyperammonemia 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 Left clavicle Excess skin of eyelid Pituitary cyst Hypersomnia GAVE (gastric antral vascular ectasia) JAYDEN (obstructive sleep apnea) Acquired arteriovenous malformation Atypical angina Biliary dyskinesia Lung nodule Submucosal neoplasm of stomach Anemia Dermoid cyst History of peptic ulcer disease Osteoarthritis Pancreatitis Hypertensive disorder Hepatic encephalopathy Edema Atrophy of vagina Atrophic vaginitis Actinic keratosis Pituitary adenoma Restless legs Neoplasm of parotid gland Lumbar spondylosis Lesion of esophagus Dyslipidemia Depressive disorder Crohn's disease Chronic low back pain Anxiety Anemia Cirrhosis SALCIDO (nonalcoholic steatohepatitis) CHF (congestive heart failure) Anasarca Surgical History History of oophorectomy, unilateral History of rotator cuff surgery bilateral History of total knee arthroplasty bilateral History of sleeve gastrectomy History of hysterectomy Family History Brother Cancer Lung Alcohol use disorder 2 older brothers Social History Smoking/Tobacco Use Status: Never Smoking risk assessment performed?: Yes Alcohol Intake: never Drug use: Never Substance use type: does not use Housing: house Current gender identity: female Do you feel safe at home: Yes Do you feel safe in your relationship?: Yes Additional Social history: Lives with Arslan, and son in [place]. Moved from [place] in 2020. Has a dog and 8 pet birds.
[2025-09-14 11:32] VITALS: BP 118/47; PULSE 80; RESP 20; TEMP 36.7; O2SAT 95
--- NOTE | 2025-09-14 12:57 | PHA.REVIEW2 ---
Pharmacy Admission Review Admission Clinical Review Admission Pharmacy Review: Acute on chronic blood loss anemia (Acute) Penicillins Allergy (Severe, Verified 09/13/25 13:07) Swelling/Edema tramadol Allergy (Severe, Verified 09/13/25 13:07) Swelling/Edema apricot Allergy (Intermediate, Verified 09/13/25 13:07) Hives ferrous sulfate Allergy (Unknown, Verified 09/13/25 13:07) Other (See Comment) raspberry Allergy (Verified 09/13/25 13:07) Other (See Comment) pineapple Adverse Reaction (Intermediate, Verified 09/13/25 13:07) Topical Irritation vancomycin Adverse Reaction (Intermediate, Verified 09/13/25 13:07) Other (See Comment) Resuscitation Status DNR Height 5 ft 1 in Weight 111.8 kg Pharmacy Admission Review Renal Dosing Renal Dosing: BUN 24 mg/dL (7-18) H 09/14/25 05:37 Creatinine 0.7 mg/dL (0.55-1.02) 09/14/25 05:37 Medications needing adjustments: Reviewed (CrCl 60.66 mL/min) List of meds needing interventions: Current medications are okay Anticoagulation Anticoagulation: Hgb 7.6 g/dL (11.2-15.7) L 7.1 g/dL (11.2-15.7) L 6.3 g/dL (11.2-15.7) L 09/14/25 05:37 09/13/25 22:10 09/13/25 13:40 Hct 26.0 % (36.0-46.0) L 09/14/25 05:37 Plt Count 100 10^3/uL (130-400) L 09/14/25 05:37 Creatinine 0.7 mg/dL (0.55-1.02) 09/14/25 05:37 DVT Prophylaxis: Reviewed (SCDs - anemia requiring transfusion) Opiate Usage Evaluate Pain Scale/Pains Meds: Reviewed (oxycodone 5mg q6h PRN - 5mg/24hrs) Scheduled Bowel Reg ordered if on Opiates?: No (PRN Miralax) Relevant Labs Relevant Labs: Sodium 142 mmol/L (136-145) 09/14/25 05:37 Potassium 3.9 mmol/L (3.5-5.1) 09/14/25 05:37 Chloride 106 mmol/L (98-107) 09/14/25 05:37 Magnesium 2.0 mg/dL (1.8-2.4) 09/14/25 05:37 Electrolytes, C-Reactive P, ESR: Reviewed DM Control DM Control: Glucose 208 mg/dL (74-106) H 09/14/25 05:37 Hemoglobin A1c 7.7 % (<5.7) H 09/14/25 05:37 DM Control: Reviewed Insulin Dosing, Diabetic Medication: Has order for glipizide and metformin Cardiac Review Cardiac Review: Troponin I 24 ng/L (<or=51) 09/13/25 18:52 NT-Pro-B Natriuret Pep 99 pg/mL (<300) 09/13/25 13:40 Blood Pressure 118/47 1132 Blood Pressure 124/43 0748 Blood Pressure 121/87 0235 BP, HR, EF%: Reviewed (HR WNL) QTc Review QTc: Reviewed (468 from 09/13/25) IV to PO Switch IV Medications: Reviewed Home Meds Home Med List reviewed: Intervened Relevent Home Meds Not ordered & why?: ondansetron (PRN) Recently filled but not on home med list: Myrbetriq. Asked nurse to verify with patient. Per patient they were taking this but recently stopped. On home med list but not filled since May of 2025 for 30 day supply: fluoxetine and oxybutynin. Asked nurse to confirm with patient that they are still taking these. Per patient she does take at home. Asked nurse to verify home dose of torsemide. Home med list says 40mg daily but prescription per external fill history says 80mg daily. Patient unsure what dose they take at home, provider changed order to 80mg daily. Current Meds Current Medication Order Review: Reviewed
--- NOTE | 2025-09-14 15:11 | PGE_ITS ---
Date of Service Date of service: 09/14/25 Time of Service: 08:00 Assessment and Plan Assessment and plan (1) Acute on chronic blood loss anemia: Status: Acute Assessment and plan: Reported submucosal neoplasm Patient is to [place] [facility] [place] the [place] Presenting with hemoglobin 6.3 Pancytopenia without concordant fall in WBC, RBC, PLT, due to liver disease PRBC 1u transfusing in ED Repeat H&H at 20:00 tonight VTE chemoprophylaxis contraindicated due to active bleed Admitting under observation status. Likely 1-2 night stay[address] No intervention pl anned as patient has procedure scheduled [place] [facility] September 14: hemoglobin 7.6 this morning, will defer additional transfusion. Awaiting echocardiogram. (2) GERD (gastroesophageal reflux disease): Status: Chronic Assessment and plan: Continue PPI (3) Liver cirrhosis secondary to SALCIDO: Status: Chronic Assessment and plan: Continue home lactulose (4) Restless legs: Assessment and plan: Continue home ropinirole (5) JAYDEN (obstructive sleep apnea): Assessment and plan: Continue home CPAP (6) Type 2 diabetes mellitus: Assessment and plan: Last known A1C 6.4 in May 2024, will check with morning labs Home regimen empagliflozin, glipizide, metformin, will continue (7) CHF (congestive heart failure): Assessment and plan: Last echo 2022 with EF 60% Will get repeat echo if available in the morning Subjective Subjective Interval history since last seen: Ms. Meade is comfortable in bed. No overnight events, no new complaints. Exam Narrative Exam Narrative: General: This is a pleasant, fatigued-appearing woman in no distress HEENT: Normocephalic, atraumatic CV: RRR, BLE 1+ pitting edema Resp: CTAB Abd: soft, NTND MSK: voluntary motion x4 Neuro: awake, alert, no focal deficits Objective Last Vital Signs Temp 36.7 C 09/14/25 11:32 Pulse 80 09/14/25 11:32 Resp 20 09/14/25 11:32 BP 118/47 L 09/14/25 11:32 Pulse Ox 95 09/14/25 11:32 Laboratory Results - last 24 hr 09/13/25 09/13/25 09/13/25 15:35 15:51 18:52 WBC RBC Hgb Hct MCV MCH MCHC RDW Plt Count MPV Immature Gran % Neutrophils % Lymphocytes % Monocytes % Eosinophils % Basophils % Nucleated RBC % Absolute Neutrophils Absolute Lymphocytes Absolute Monocytes Absolute Eosinophils Absolute Basophils Sodium Potassium Chloride Carbon Dioxide Anion Gap BUN Creatinine Est GFR (CKD-EPI 2020) Glucose Hemoglobin A1c Calcium Magnesium Total Bilirubin AST ALT Alkaline Phosphatase Troponin I 23 24 Total Protein Albumin ABO/Rh O Positive Antibody Screen NEGATIVE Crossmatch See Detail 09/13/25 09/14/25 22:10 05:37 WBC 4.51 RBC 3.34 L Hgb 7.1 L 7.6 L Hct 24.0 L 26.0 L MCV 78 L D MCH 22.8 L MCHC 29.2 L RDW 17.8 H Plt Count 100 L MPV 10.2 Immature Gran % 0.2 Neutrophils % 57.9 Lymphocytes % 19.1 Monocytes % 13.5 Eosinophils % 8.2 Basophils % 1.1 Nucleated RBC % 0.0 Absolute Neutrophils 2.61 Absolute Lymphocytes 0.86 L Absolute Monocytes 0.61 Absolute Eosinophils 0.37 Absolute Basophils 0.05 Sodium 142 Potassium 3.9 Chloride 106 Carbon Dioxide 29.4 Anion Gap 6.6 BUN 24 H Creatinine 0.7 Est GFR (CKD-EPI 2020) 92.98 Glucose 208 H Hemoglobin A1c 7.7 H Calcium 8.4 L Magnesium 2.0 Total Bilirubin 1.7 H AST 31 ALT 22 Alkaline Phosphatase 225 H Troponin I Total Protein 6.0 L Albumin 2.3 L ABO/Rh Antibody Screen Crossmatch Time Spent with Patient Time Spent with Patient: 25-34 minutes Time was spent: preparing to see the patient(eg.review tests), obtaining and/or reviewing separately otained hiistory, ordering medications,tests, procedures, referring, communicating with other health career technology teacher, indepentently interpreting results, counseling the patient and care coordination
[2025-09-14 15:29] VITALS: BP 127/44; PULSE 74; RESP 16; TEMP 36.7; O2SAT 97
[2025-09-14 20:20] VITALS: BP 140/46; PULSE 86; RESP 18; TEMP 36.3; O2SAT 93
[2025-09-14] MEDS: Doxepin 10 MG CAP 20 MG PO (20:52)
[2025-09-15 00:07] VITALS: BP 139/52; PULSE 84; RESP 16; TEMP 36.7; O2SAT 97
[2025-09-15] MEDS: oxyCODONE 5 MG TAB PO ×2 (00:21→21:46)
[2025-09-15] MEDS: Nystatin POWDER 15 GM JAR TP ×2 (02:10→20:56)
[2025-09-15 05:31] LABS: Abs Immature Grans 0.02 10^3/uL (0.0-0.06); HCT 24.6 % (36.0-46.0); HGB 7.2 g/dL (11.2-15.7); Immature Grans % 0.4 %; MCH 22.9 pg (27.0-33.0); MCHC 29.3 % (32.0-36.0); MCV 78 fL (80-95); MPV 10.3 fL (8.0-11.0); RBC 3.15 10^6/uL (3.93-5.22); RDW 17.9 % (11.7-14.6); RDW-SD 51.1 fL; WBC 4.97 10^3/uL (4.4-10.8)
[2025-09-15 06:01] LABS: ALT 20 U/L (10-49); AST 36 U/L (<34); Albumin 2.7 g/dL (3.4-5.0); Alkaline Phosphatase 167 U/L (46-116); Anion Gap 8 mmol/L (3-11); BUN 24 mg/dL (9-23); Bilirubin, Total 1.50 mg/dL (0.2-1.2); CO2 30.0 mmol/L (20.0-31.0); Calcium 8.4 mg/dL (8.3-10.6); Chloride 104 mmol/L (98-107); Glucose 159 mg/dL (74-106); Potassium 3.2 mmol/L (3.5-5.1); Sodium 142 mmol/L (136-145); Total Protein 5.5 g/dL (5.7-8.2)
[2025-09-15 06:11] LABS: Hypochromasia 2+; Platelet Count 102 10^3/uL (130-400); Polychromasia Present
[2025-09-15 07:28] VITALS: BP 116/42; PULSE 83; RESP 17; TEMP 36.9; O2SAT 94
[2025-09-15] MEDS: Pantoprazole 40 MG TABCR PO ×2 (07:54→20:50)
[2025-09-15] MEDS: Lactulose 20 GM/30 ML CUP PO ×3 (07:54→20:51)
[2025-09-15] MEDS: FLUoxetine 20 MG CAP 40 MG PO (07:54)
[2025-09-15] MEDS: glipiZIDE 5 MG TAB PO (07:55)
[2025-09-15] MEDS: Normal Saline Flush 10 ML SYR IVP ×2 (07:55→20:51)
[2025-09-15] MEDS: Torsemide 20 MG TAB 80 MG PO (07:55)
[2025-09-15] MEDS: Empaglifozin 10 MG TAB PO (07:55)
[2025-09-15] MEDS: metFORMIN 500 MG TAB 1000 MG PO ×2 (07:55→16:27)
[2025-09-15] MEDS: rOPINIRole 1 MG TAB 2 MG PO ×3 (07:55→20:50)
[2025-09-15] MEDS: Oxybutynin 5 MG TAB PO ×2 (09:34→20:50)
[2025-09-15] MEDS: SODIUM FER. GLUC./SUC. 125 MG in Normal Saline 100 ML 110 MG IVPB (13:01)
--- NOTE | 2025-09-15 16:03 | PGE_ITS ---
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 Likely 1-2 night stay. No intervention pl anned as patient has procedure scheduled at [facility]. September 14: hemoglobin 7.6 this morning, will defer additional transfusion. Awaiting echocardiogram. September 15: hemoglobin 7.2, will monitor another day. Iron infusion today. (2) GERD (gastroesophageal reflux disease): Status: Chronic Assessment and plan: Continue PPI (3) Liver cirrhosis secondary to SALCIDO: Status: Chronic Assessment and plan: Continue home lactulose (4) Restless legs: Assessment and plan: Continue home ropinirole (5) JAYDEN (obstructive sleep apnea): Assessment and plan: Continue home CPAP (6) Type 2 diabetes mellitus: Assessment and plan: Last known A1C 6.4 in May 2024, will check with morning labs Home regimen empagliflozin, glipizide, metformin, will continue (7) CHF (congestive heart failure): Assessment and plan: Last echo 2022 with EF 60% Will get repeat echo if available in the morning September 15: ejection fraction 65%, no worsening compared with 2023 per [facility]. HFpEF. Subjective Subjective Interval history since last seen: Mrs. Meade is up in a chair. No new complaints. Her is critically ill in the ICU and she has been able to visit. Exam Narrative Exam Narrative: General: This is a pleasant, fatigued-appearing woman in no distress HEENT: Normocephalic, atraumatic CV: RRR, BLE 1+ pitting edema Resp: CTAB Abd: soft, NTND MSK: voluntary motion x4 Neuro: awake, alert, no focal deficits Objective Last Vital Signs Temp 36.9 C 09/15/25 07:28 Pulse 83 09/15/25 07:28 Resp 17 09/15/25 07:28 BP 116/42 L 09/15/25 07:28 Pulse Ox 94 09/15/25 07:28 Laboratory Results - last 24 hr 09/15/25 05:20 WBC 4.97 RBC 3.15 L Hgb 7.2 L Hct 24.6 L MCV 78 L MCH 22.9 L MCHC 29.3 L RDW 17.9 H Plt Count 102 L MPV 10.3 Immature Gran % 0.4 Neutrophils % 61.6 Lymphocytes % 17.3 Monocytes % 13.7 Eosinophils % 6.2 Basophils % 0.8 Nucleated RBC % 0.0 Absolute Neutrophils 3.06 Absolute Lymphocytes 0.86 L Absolute Monocytes 0.68 Absolute Eosinophils 0.31 Absolute Basophils 0.04 RBC Morphology See Below Polychromasia Present Hypochromasia 2+ Sodium 142 Potassium 3.2 L Chloride 104 Carbon Dioxide 30.0 Anion Gap 8 BUN 24 H Creatinine 0.8 Est GFR (CKD-EPI 2020) 72.96 Glucose 159 H Calcium 8.4 Total Bilirubin 1.50 H AST 36 H ALT 20 Alkaline Phosphatase 167 H Total Protein 5.5 L Albumin 2.7 L Time Spent with Patient Time Spent with Patient: 25-34 minutes Time was spent: preparing to see the patient(eg.review tests), obtaining and/or reviewing separately otained hiistory, ordering medications,tests, procedures, referring, communicating with other health transitions rn care coordinator, indepentently interpreting results, counseling the patient and care coordination
--- NOTE | 2025-09-15 16:11 | CMPROGNOTE_ITS ---
Date of service: 09/15/25 Time of Service: 16:11 Care Management Progress Note Progress Note Text Progress Note Text: Re was sitting up in a chair when CM met with her. Her Alexis was admitted last evening from [facility] for [facility] and was intubated. Re is understandably concerned and has spent much of the day by his side in ICU. Their son Isra has the flu so is unable to visit. Alexis remains a full code. Given the serious nature of his illness and many co-morbidities, there may be another Palliative Care consult to see if any changes to his status are needed. Re was expecting to be discharged today however her Hgb dropped slightly and the decision was made to keep her one more night. Re reported feeling well and her vital signs have remained stable. Discharge Potential Discharge Needs: PCP F/U Appt Anticipated Barriers to Discharge: None Identified Patient/Family Education Needs: Review discharge instructions, discuss Ask Me Three Transportation: Private vehicle Plan: Anticipate Re will be discharged home, possibly with new home health services, when medically cleared. She will follow up with her PCP and plan of care and transport with her son. Social Determinants of Health Screening Social Determinants of health last assessed in clinic: 09/15/25 Will the Patient Participate in the Screening?: Yes Do you worry about having a steady place to live?: no Problems where you live: no known problems In the past 12 months, have you had to go without electric, gas, oil or water in your home?: no 1. Within the past 12 months, we worried whether our food would run out before we got money to buy more.: Never true 2. Within the past 12 months, the food we bought just didn't last and we didn't have money to get more.: Never true Has lack of transportation kept you from medical appointments or from doing things needed for daily living?: no Has anyone in your life made you feel unsafe or unsupported?: no How hard is it for you to pay for the very basics like food, housing, medical care, and heating? Would you say it is:: Not hard at all Do you want help finding or keeping work or a job?: I do not need or want help If for any reason you need help with day-to-day activities such as bathing, preparing meals, shopping, managing finances, etc., do you get the help you need?: I don’t need any help How often do you feel lonely or isolated from those around you?: Never Do you speak a language other than [place] at home?: No Health Related Social Needs Health related social needs details: no needs
[2025-09-15 20:42] VITALS: BP 145/45; PULSE 81; RESP 18; TEMP 36.1; O2SAT 93
[2025-09-15] MEDS: Doxepin 10 MG CAP 20 MG PO (20:50)
[2025-09-16] VITALS (8 sets, daily range): BP systolic 106–138; BP diastolic 40–52; PULSE 72–82; RESP 16–18; TEMP 36.2–36.8; O2SAT 92–98
[2025-09-16 06:26] LABS: Abs Immature Grans 0.01 10^3/uL (0.0-0.06); HCT 25.0 % (36.0-46.0); HGB 7.4 g/dL (11.2-15.7); Immature Grans % 0.2 %; MCH 23.3 pg (27.0-33.0); MCHC 29.6 % (32.0-36.0); MCV 79 fL (80-95); MPV 10.6 fL (8.0-11.0); Platelet Count 102 10^3/uL (130-400); RBC 3.18 10^6/uL (3.93-5.22); RDW 18.3 % (11.7-14.6); RDW-SD 51.7 fL; WBC 4.64 10^3/uL (4.4-10.8)
[2025-09-16] MEDS: Lactulose 20 GM/30 ML CUP PO (08:30)
[2025-09-16] MEDS: Empaglifozin 10 MG TAB PO (08:31)
[2025-09-16] MEDS: Pantoprazole 40 MG TABCR PO ×2 (08:31→22:56)
[2025-09-16] MEDS: rOPINIRole 1 MG TAB 2 MG PO ×3 (08:31→22:57)
[2025-09-16] MEDS: Torsemide 20 MG TAB 80 MG PO (08:31)
[2025-09-16] MEDS: Nystatin POWDER 15 GM JAR TP (08:31)
[2025-09-16] MEDS: metFORMIN 500 MG TAB 1000 MG PO ×2 (08:31→17:17)
[2025-09-16] MEDS: Oxybutynin 5 MG TAB PO ×2 (08:32→22:56)
[2025-09-16] MEDS: Normal Saline Flush 10 ML SYR IVP ×2 (08:32→22:57)
[2025-09-16] MEDS: FLUoxetine 20 MG CAP 40 MG PO (08:32)
[2025-09-16] MEDS: glipiZIDE 5 MG TAB PO (08:32)
--- NOTE | 2025-09-16 08:50 | PDOC.CMDIS ---
Date of service: 09/17/25 Time of Service: 08:50 LACE Index Scoring Tool Questions: Length of Stay (in days): 3 Was the patient admitted via the E.D.?: Yes Comorbidities: Diabetes w/o Complication, Congestive Heart Failure, Chronic Pulmonary Disease, Any Tumor and Liver or Renal Disease E.D. Visits: 6 Answers: Total Score: 15 Risk of Readmission: High Risk Care Management Discharge Plan Reason for Hospitalization: anemia Discharge Plan: Re will be discharged home with no new services. She will follow up with her PCP and plan of care and transport via [facility]. Re's Alexis remains intubated in the ICUU. Re plans to return to the hospital over the weekend to visit. Patient/Family Education Needs: Review discharge instructions, limitations, follow up plan and discuss Ask Me Three SDOH Health Related Social Needs: Health related social needs risk of homeless house/econ circumstance daily activities Health related social needs details no needs Health related social needs details: no needs
--- NOTE | 2025-09-16 15:33 | CMPROGNOTE_ITS ---
Date of service: 09/16/25 Time of Service: 15:33 Care Management Progress Note Progress Note Text Progress Note Text: Re was sitting up in a chair when CM met with her. She was pleasant in manner and engaged easily with CM. Re continues to slowly improve. Her Hgb has stabilized in the 7.4 range and she feels well. Her vital signs are stable and she remains afebrile. Re's son Isra came to see her today. While he was visiting, ZAHEER met with both of them and began a discussion about Alexis's code status. This morning Dr. Coyle spoke to Re about CPR and intubation. She told him that she wanted to discuss it with Isra. After a bit of a discussion, both Isra and Re decided to change Alexis's code status to DNR/DNI. Dr. Cui met with them and completed a COLST form. Discharge Potential Discharge Needs: PCP F/U Appt Anticipated Barriers to Discharge: None Identified Patient/Family Education Needs: Review discharge instructions, discuss Ask Me Three Social Determinants of Health Screening Social Determinants of health last assessed in clinic: 09/16/25 Will the Patient Participate in the Screening?: Yes Do you worry about having a steady place to live?: no Problems where you live: no known problems In the past 12 months, have you had to go without electric, gas, oil or water in your home?: no 1. Within the past 12 months, we worried whether our food would run out before we got money to buy more.: Never true 2. Within the past 12 months, the food we bought just didn't last and we didn't have money to get more.: Never true Has lack of transportation kept you from medical appointments or from doing things needed for daily living?: no Has anyone in your life made you feel unsafe or unsupported?: no How hard is it for you to pay for the very basics like food, housing, medical care, and heating? Would you say it is:: Not hard at all Do you want help finding or keeping work or a job?: I do not need or want help If for any reason you need help with day-to-day activities such as bathing, preparing meals, shopping, managing finances, etc., do you get the help you need?: I don’t need any help How often do you feel lonely or isolated from those around you?: Never Do you speak a language other than Brazilian at home?: No Health Related Social Needs Health related social needs details: no needs
--- NOTE | 2025-09-16 16:14 | PGE_ITS ---
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 Likely 1-2 night stay. No intervention pl anned as patient has procedure scheduled at [facility]. September 14: hemoglobin 7.6 this morning, will defer additional transfusion. Awaiting echocardiogram. September 15: hemoglobin 7.2, will monitor another day. Iron infusion today. September 16: hemoglobin 7.4, will defer transfusion. Iron studies in 2-4 weeks. (2) GERD (gastroesophageal reflux disease): Status: Chronic Assessment and plan: Continue PPI (3) Liver cirrhosis secondary to SALCIDO: Status: Chronic Assessment and plan: Continue home lactulose (4) Restless legs: Assessment and plan: Continue home ropinirole (5) JAYDEN (obstructive sleep apnea): Assessment and plan: Continue home CPAP (6) Type 2 diabetes mellitus: Assessment and plan: A1C 6.4 in May 2024, now 7.7. Home regimen empagliflozin, glipizide, metformin, will continue (7) CHF (congestive heart failure): Assessment and plan: Last echo 2022 with EF 60% Will get repeat echo if available in the morning September 15: ejection fraction 65%, no worsening compared with 2023 per [facility]. HFpEF. Subjective Subjective Interval history since last seen: Mr.s Meade is having a difficult day as her is failing in the ICU. She feels exhausted. Son at bedside. Exam Narrative Exam Narrative: General: This is a pleasant, fatigued-appearing woman in no distress HEENT: Normocephalic, atraumatic CV: RRR, BLE 1+ pitting edema Resp: CTAB Abd: soft, NTND MSK: voluntary motion x4 Neuro: awake, alert, no focal deficits Objective Last Vital Signs Temp 36.5 C 09/16/25 15:18 Pulse 80 09/16/25 15:18 Resp 18 09/16/25 15:18 BP 120/40 L 09/16/25 15:25 Pulse Ox 95 09/16/25 15:18 Laboratory Results - last 24 hr 09/16/25 06:05 WBC 4.64 RBC 3.18 L Hgb 7.4 L Hct 25.0 L MCV 79 L MCH 23.3 L MCHC 29.6 L RDW 18.3 H Plt Count 102 L MPV 10.6 Immature Gran % 0.2 Neutrophils % 57.9 Lymphocytes % 20.3 Monocytes % 14.4 Eosinophils % 6.3 Basophils % 0.9 Nucleated RBC % 0.0 Absolute Neutrophils 2.69 Absolute Lymphocytes 0.94 L Absolute Monocytes 0.67 Absolute Eosinophils 0.29 Absolute Basophils 0.04 Time Spent with Patient Time Spent with Patient: 25-34 minutes Time was spent: preparing to see the patient(eg.review tests), obtaining and/or reviewing separately otained hiistory, ordering medications,tests, procedures, referring, communicating with other health complex care nurse practitioner, indepentently interpreting results, counseling the patient and care coordination
[2025-09-16] MEDS: Doxepin 10 MG CAP 20 MG PO (22:56)
[2025-09-17 08:03] VITALS: BP 126/41; PULSE 79; RESP 16; TEMP 36.8; O2SAT 97
[2025-09-17] MEDS: Torsemide 20 MG TAB 80 MG PO (09:18)
[2025-09-17] MEDS: glipiZIDE 5 MG TAB PO (09:18)
[2025-09-17] MEDS: FLUoxetine 20 MG CAP 40 MG PO (09:18)
[2025-09-17] MEDS: rOPINIRole 1 MG TAB 2 MG PO (09:18)
[2025-09-17] MEDS: metFORMIN 500 MG TAB 1000 MG PO (09:19)
[2025-09-17] MEDS: Lactulose 20 GM/30 ML CUP PO (09:19)
[2025-09-17] MEDS: Normal Saline Flush 10 ML SYR IVP (09:19)
[2025-09-17] MEDS: Empaglifozin 10 MG TAB PO (09:19)
[2025-09-17] MEDS: Pantoprazole 40 MG TABCR PO (09:19)
[2025-09-17] MEDS: Oxybutynin 5 MG TAB PO (09:20)
[2025-09-17] MEDS: Nystatin POWDER 15 GM JAR TP (09:20)
--- NOTE | 2025-09-17 10:46 | W.NUTRFU ---
Nutrition Note NOTE: 70, F. Height: 155 cm. Weight: 112 kg. BMI: 46.6 kg. IBW = 48 kg. Patient initially presented with dyspnea. Hgb was recorded low at 7.4 L on 09/16/25. Blood glucose was recorded as 159 on 09/15/25. Patient has a history of high weight and BMI showing an upward trend from 95 kg in 09/2024 to 112 kg in 09/2025. Patient has reported weight gain as unintentional. Estimated nutrition requirements: 1,900 kcal/day (MSJ; Out of bed, ambulatory).
--- NOTE | 2025-09-17 14:28 | DSE_ITS ---
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 She reports a dry cough that started the day before arrival. She feels that her legs are as big as they've ever been and that she is concerned about her heart failure. She reports that the weight gain and SOB made her suspect that her torsemide were not working. She has a known gastric bleed; she was hospitalized in July for blood loss anemia. She has a scheduled cauter[place] [facility] [place] near [place]. She denies chest pain, abdominal pain, N/V/D. In the ED, she was mildly tachycardic HR 97, mildly hypertensive 156/41. Vitals otherwise unremarkable. EKG without evidence of occlusion or arrhythmia. CXR with previously seen cardiomegaly, and possible pulmonary venous congestion. CBC with pancytopenia, notably hemoglobin 6.3, PLT 106. Serum glucose 343. Serum ammonia 65, chronic. Blood transfusion of PRBC 1u was initiated in the ED. PMH includes chronic gastric blood loss, T2DM on oral medications, HF likely HFpEF with EF 60% on last known echo 2022, JAYDEN on CPAP, GERD on PPI, SALCIDO cirrhosis on lactulose Patient did not require additional transfusions during her hospitalization. She was given one dose of IV iron. She is safe to return home at this time. Home Meds and New Rx's Prescriptions: Continued oxycodone 5 mg tablet 5 mg PO Q6H PRN metformin 1,000 mg Tablet 1,000 mg PO BID ropinirole 2 mg Tablet 2 mg PO TID nystatin 100,000 unit/gram Powder 6,000,000 unit topical TID Qty: 60 0RF Rx Instructions: apply to reddened skin folds doxepin 10 mg capsule 30 mg PO QHS Patient Comments: 20 mg once a day acetaminophen 325 mg Tablet 650 mg PO Q12H PRN PRNQty: 10 0RF lactulose [Constulose] 10 gram/15 mL solution 20 g PO TID Qty: 1200 0RF pantoprazole 40 mg Tablet,Delayed Release (Dr/Ec) 40 mg PO BID oxybutynin chloride 5 mg Tablet 5 mg PO BID Qty: 60 0RF torsemide 20 mg tablet 40 mg PO DAILY Patient Comments: TAKE TWO TABLETS BY MOUTH EVERY DAY fluoxetine 40 mg capsule 40 mg PO DAILY ondansetron HCl 4 mg tablet 4 mg PO DAILY PRN Patient Comments: TAKE ONE TABLET BY MOUTH EVERY DAY NEEDED FOR NAUSEA glipizide 5 mg tablet 5 mg PO DAILY Jardiance 10 mg tablet 10 mg PO DAILY Discharge Instructions Instructions: Good Food Sources of Iron, Blood transfusion Stand Alone Forms: Portal Information, Nursing Discharge Form Referrals: Jefe Coffey [Primary Care Provider, Medicine] Referral Note: PCP office will give you a call to set up a follow up appointment. If you don't hear from them, please give them a call. Activity:: Activity as Tolerated Equipment/Supplies:: No Equipment Needed Diet:: As Tolerated Discharge Orders Discharge Orders: Discharge Order (Routine); Ordered 09/17/25 Ordered By: Alejandro Cui Discharge Data Discharge Date/Time-TO BE ENTERED AT DEPARTURE: 09/17/25 16:21 DS: Summary Time Spent with Patient providing and/or coordinating discharge services: Less than 30 minutes Status at Discharge Functional status at discharge: independent ambulation Overall status at discharge: patient is back to baseline Mental Status: mental status grossly normal Speech and Movement: speech and movement normal Mood: congruent mood Affect: normal affect Quality:SDOH Health Related Social Needs: Health related social needs risk of homeless house/eco n circumstance daily activities Health related social needs details no needs Health related social needs details: no needs Exam Narrative Exam Narrative: General: This is a pleasant, fatigued-appearing woman in no distress HEENT: Normocephalic, atraumatic CV: RRR, BLE 1+ pitting edema Resp: CTAB Abd: soft, NTND MSK: voluntary motion x4 Neuro: awake, alert, no focal deficits Psych Mental Status: mental status grossly normal Speech and Movement: speech and movement normal Mood: congruent mood Affect: normal affect DS: Data Vitals/I&O Vitals and I&O: Vital Signs Temperature 36.8 C 09/17/25 08:03 Temperature Source Temporal Artery Scan 09/17/25 08:03 Pulse 79 09/17/25 08:03 Respiratory Rate 16 09/17/25 08:03 Respiratory Effort Short of Breath 09/13/25 18:31 Respiratory Depth Normal 09/13/25 18:31 Respiratory Pattern Normal 09/13/25 18:31 Blood Pressure 126/41 L 09/17/25 08:03 Blood Pressure Mean 69 09/17/25 08:03 Pulse Oximetry 97 09/17/25 08:03 Oxygen Delivery Method Room Air 09/17/25 08:03 Oxygen Flow Rate 0 09/17/25 08:03 Pain Level 0 09/16/25 08:32 Comment nurse notified 09/16/25 03:32 Intake & Output 09/16/25 09/17/25 09/17/25 23:59 11:59 23:59 Intake Total 480 / 720 240 / 480 240 / 480 Balance 480 / 120 240 / 480 240 / 480 Intake: Oral 480 / 720 240 / 480 240 / 480 Other: Urine Color Yellow Yellow Yellow Urine Appearance Clear Clear Clear Urine Odor Normal Normal Comment unmeasured Pt voids an immeasurable amount ind. into the toilet. Data Completed and Pending Pending Labs at Discharge: 09/13/25 09/13/25 09/13/25 13:40 13:43 15:35 WBC 3.89 L RBC 2.77 L Hgb 6.3 L* Hct 22.8 L MCV 82 MCH 22.7 L MCHC 27.6 L RDW 18.4 H Plt Count 106 L MPV 10.4 Immature Gran % 0.3 Neutrophils % 60.1 Lymphocytes % 18.0 Monocytes % 14.1 Eosinophils % 6.7 Basophils % 0.8 Nucleated RBC % 0.0 Absolute Neutrophils 2.34 Absolute Lymphocytes 0.70 L Absolute Monocytes 0.55 Absolute Eosinophils 0.26 Absolute Basophils 0.03 RBC Morphology See Below Polychromasia Hypochromasia 2+ Microcytosis 1+ Sodium 139 Potassium 3.6 Chloride 105 Carbon Dioxide 29.4 Anion Gap 4.6 BUN 27 H Creatinine 0.9 Est GFR (CKD-EPI 2020) 68.77 Glucose 343 H Hemoglobin A1c Calcium 8.1 L Magnesium 2.0 Total Bilirubin 0.7 AST 25 ALT 22 Alkaline Phosphatase 260 H Ammonia 65 H Troponin I 22 23 NT-Pro-B Natriuret Pep 99 Total Protein 5.7 L Albumin 2.1 L COVID-19 Source Nasopharynx SARS-CoV-2 (PCR) Negative Influenza Type A (PCR) Negative Influenza Type B (PCR) Negative RSV (PCR) Negative ABO/Rh Antibody Screen Crossmatch 09/13/25 09/13/25 09/13/25 15:51 18:52 22:10 WBC RBC Hgb 7.1 L Hct 24.0 L MCV MCH MCHC RDW Plt Count MPV Immature Gran % Neutrophils % Lymphocytes % Monocytes % Eosinophils % Basophils % Nucleated RBC % Absolute Neutrophils Absolute Lymphocytes Absolute Monocytes Absolute Eosinophils Absolute Basophils RBC Morphology Polychromasia Hypochromasia Microcytosis Sodium Potassium Chloride Carbon Dioxide Anion Gap BUN Creatinine Est GFR (CKD-EPI 2020) Glucose Hemoglobin A1c Calcium Magnesium Total Bilirubin AST ALT Alkaline Phosphatase Ammonia Troponin I 24 NT-Pro-B Natriuret Pep Total Protein Albumin COVID-19 Source SARS-CoV-2 (PCR) Influenza Type A (PCR) Influenza Type B (PCR) RSV (PCR) ABO/Rh O Positive Antibody Screen NEGATIVE Crossmatch See Detail 09/14/25 09/15/25 09/16/25 05:37 05:20 06:05 WBC 4.51 4.97 4.64 RBC 3.34 L 3.15 L 3.18 L Hgb 7.6 L 7.2 L 7.4 L Hct 26.0 L 24.6 L 25.0 L MCV 78 L D 78 L 79 L MCH 22.8 L 22.9 L 23.3 L MCHC 29.2 L 29.3 L 29.6 L RDW 17.8 H 17.9 H 18.3 H Plt Count 100 L 102 L 102 L MPV 10.2 10.3 10.6 Immature Gran % 0.2 0.4 0.2 Neutrophils % 57.9 61.6 57.9 Lymphocytes % 19.1 17.3 20.3 Monocytes % 13.5 13.7 14.4 Eosinophils % 8.2 6.2 6.3 Basophils % 1.1 0.8 0.9 Nucleated RBC % 0.0 0.0 0.0 Absolute Neutrophils 2.61 3.06 2.69 Absolute Lymphocytes 0.86 L 0.86 L 0.94 L Absolute Monocytes 0.61 0.68 0.67 Absolute Eosinophils 0.37 0.31 0.29 Absolute Basophils 0.05 0.04 0.04 RBC Morphology See Below Polychromasia Present Hypochromasia 2+ Microcytosis Sodium 142 142 Potassium 3.9 3.2 L Chloride 106 104 Carbon Dioxide 29.4 30.0 Anion Gap 6.6 8 BUN 24 H 24 H Creatinine 0.7 0.8 Est GFR (CKD-EPI 2020) 92.98 72.96 Glucose 208 H 159 H Hemoglobin A1c 7.7 H Calcium 8.4 L 8.4 Magnesium 2.0 Total Bilirubin 1.7 H 1.50 H AST 31 36 H ALT 22 20 Alkaline Phosphatase 225 H 167 H Ammonia Troponin I NT-Pro-B Natriuret Pep Total Protein 6.0 L 5.5 L Albumin 2.3 L 2.7 L COVID-19 Source SARS-CoV-2 (PCR) Influenza Type A (PCR) Influenza Type B (PCR) RSV (PCR) ABO/Rh Antibody Screen Crossmatch PFS All Active Problems (Updated 09/18/25 @ 00:01 by ROBERT AGUDELO) Acute on chronic blood loss anemia (Acute) GERD (gastroesophageal reflux disease) (Chronic) Anemia (Chronic) Community acquired pneumonia (Acute) Sepsis (Acute) Bacteremia due to Klebsiella pneumoniae (Acute) Acute coronary syndrome with high troponin (Acute) Sepsis due to Gram-negative organism with septic shock (Acute) 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) Medical History Anemia UTI (urinary tract infection) Type 2 diabetes mellitus Hypovolemia Hyperammonemia 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 Left clavicle Excess skin of eyelid Pituitary cyst Hypersomnia GAVE (gastric antral vascular ectasia) JAYDEN (obstructive sleep apnea) Acquired arteriovenous malformation Atypical angina Biliary dyskinesia Lung nodule Submucosal neoplasm of stomach Anemia Dermoid cyst History of peptic ulcer disease Osteoarthritis Pancreatitis Hypertensive disorder Hepatic encephalopathy Edema Atrophy of vagina Atrophic vaginitis Actinic keratosis Pituitary adenoma Restless legs Neoplasm of parotid gland Lumbar spondylosis Lesion of esophagus Dyslipidemia Depressive disorder Crohn's disease Chronic low back pain Anxiety Anemia Cirrhosis SALCIDO (nonalcoholic steatohepatitis) CHF (congestive heart failure) Anasarca Surgical History History of oophorectomy, unilateral History of rotator cuff surgery bilateral History of total knee arthroplasty bilateral History of sleeve gastrectomy History of hysterectomy Family History Brother Cancer Lung Alcohol use disorder 2 older brothers Social History Smoking/Tobacco Use Status: Never Smoking risk assessment performed?: Yes Alcohol Intake: never Drug use: Never Substance use type: does not use Housing: house Current gender identity: female Do you feel safe at home: Yes Do you feel safe in your relationship?: Yes Additional Social history: Lives with Arslan, and son in [place]. Moved from [place] in 2020. Has a dog and 8 pet birds. Time Spent with Patient Time Spent with Patient: <45 minutes Time was spent: preparing to see the patient(eg.review tests), obtaining and/or reviewing separately otained hiistory, ordering medications,tests, procedures, referring, communicating with other health nursing care attendant, indepentently interpreting results, counseling the patient and care coordination
--- NOTE | 2025-09-17 15:45 | PDOC.CMPRO ---
Date of service: 09/17/25 Time of Service: 15:45 Care Management Progress Note Progress Note Text Progress Note Text: Re requested to speak to CM this morning as she had some safety concerns surrounding her discharge. Re's son Isra has recently gotten engaged. His fiancee Austyn and her 2 sons moved into Re and Isra's home a couple of weeks ago. Re reports that the older son, Mauro, has autism and has behavioral issues. He does not listen to his mother or the other adults and has pushed and kicked at his mother. Recently he has been found with knives and scissors in his room. Re is concerned for his safety, the safety of his younger brother and everyone else in the home. Isra and Austyn have a meeting at the school today where his behavior will be discussed. CM suggested that as a temporary measure, they also lock up all of the sharps in the home, including knives, scissors and the like. Re agreed to do that. They have discussed the possibility of placement in a residential facility but that process can be a long one. Austyn and her 2 boys have just relocated from [place] and are in the process of establishing care in the area. Isra and Austyn are pursuing mental health support for Mauro as well. Discharge Potential Discharge Needs: PCP F/U Appt Anticipated Barriers to Discharge: None Identified Patient/Family Education Needs: Review discharge instructions, discuss Ask Me Three Transportation: Private vehicle Social Determinants of Health Screening Social Determinants of health last assessed in clinic: 09/17/25 Will the Patient Participate in the Screening?: Yes Do you worry about having a steady place to live?: no Problems where you live: no known problems In the past 12 months, have you had to go without electric, gas, oil or water in your home?: no 1. Within the past 12 months, we worried whether our food would run out before we got money to buy more.: Never true 2. Within the past 12 months, the food we bought just didn't last and we didn't have money to get more.: Never true Has lack of transportation kept you from medical appointments or from doing things needed for daily living?: no Has anyone in your life made you feel unsafe or unsupported?: no How hard is it for you to pay for the very basics like food, housing, medical care, and heating? Would you say it is:: Not hard at all Do you want help finding or keeping work or a job?: I do not need or want help If for any reason you need help with day-to-day activities such as bathing, preparing meals, shopping, managing finances, etc., do you get the help you need?: I don’t need any help How often do you feel lonely or isolated from those around you?: Never Do you speak a language other than Latvian at home?: No Health Related Social Needs Health related social needs details: no needs
== END 2025-09-17 16:21 | disposition home or self-care (01) ==
LOC: ER 16:24 → MS 17:33
PROVIDERS: Admitting Provider Family Medicine; Emergency Provider Student in an Organized Health Care Education/Training Program; PCP Family Medicine; Responsible Provider Family Medicine; Visit Provider Family Medicine
DX: I11.0 Hypertensive heart disease with heart failure (principal); I50.33 Acute on chronic diastolic (congestive) heart failure; D62 Acute posthemorrhagic anemia; K31.811 Angiodysplasia of stomach and duodenum with bleeding; K21.9 Gastro-esophageal reflux disease without esophagitis; G25.81 Restless legs syndrome; G47.33 Obstructive sleep apnea (adult) (pediatric); E11.9 Type 2 diabetes mellitus without complications; I08.2 Rheumatic disorders of both aortic and tricuspid valves; K75.81 Nonalcoholic steatohepatitis (NASH); K74.69 Other cirrhosis of liver; Z79.84 Long term (current) use of oral hypoglycemic drugs; G47.19 Other hypersomnia; R91.1 Solitary pulmonary nodule; E78.5 Hyperlipidemia, unspecified; Z90.3 Acquired absence of stomach [part of]; Z96.653 Presence of artificial knee joint, bilateral; D61.818 Other pancytopenia; Z59.811 Housing instability, housed, with risk of homelessness; Z59.89 Other problems related to housing and economic circumstances; Z73.89 Other problems related to life management difficulty
CPT/HCPCS: 00123; 36415; 36430; 76604; 80053; 86850; 86900; 86901; 86920; 87637; 93005; 99285; 71046; 82140; 83036; 83735; 83880; 84484; 85014; 85018; 85025; 93010; 93306; 99222; 99232; 99238; J2916; P9016